=== PATIENT | male | born 1955 | race Caucasian/White ===

== ENCOUNTER 2017-01-29 23:40 | Emergency (ER) | payer SELFPAY ==
[~2017-01-29] VITALS: Ht 170.2 cm; Wt 64.0 kg
[~2017-01-29 23:40] MED LIST: PERM5CRE TOP; PERM5CRE4 TOP; ZYRT10TA12 PO
[2017-01-29 23:41] VITALS: BP 118/79; PULSE 97; RESP 18; TEMP 97.9; O2SAT 94
[2017-01-30 00:58] LABS: ALKALINE PHOSPHATASE 67 U/L (45-117); ALT (GPT) 94 U/L (12-78); ANION GAP 9 MEQ/L (5-15); AST (GOT) 72 U/L (15-37); BICARBONATE 29.9 MEQ/L (21.0-32.0); BLOOD UREA NITROGEN 8 MG/DL (7-18); CHLORIDE 105 MEQ/L (98-107); GLOMERULAR FILTRATION RATE 80 ML/MIN (>89); POTASSIUM 3.6 MEQ/L (3.5-5.1); SODIUM (NA) 144 MEQ/L (136-145); TOTAL BILIRUBIN ADULT 0.1 MG/DL (0.2-1.0)
--- NOTE | 2017-01-30 01:11 | PD ---
HPI Chief Complaint: Alcohol/Drug Intoxication Time Seen by Provider: 01:06 Travel History International Travel<30 days: No Contact w/Intl Traveler<30days: No Traveled to known affect area: No History of Present Illness HPI Patient is a 61-year-old male presenting to emergency department wanting rehabilitation. Patient states that he takes 12 pack of beer a day for the last 30 years and decided he wanted rehabilitation. He denies any physical complaints at this time. He does report drinking a 12 pack of beer today. He denies any significant past medical history. He denies any suicidal, homicidal ideations. He denies any visual auditory hallucinations. [facility] Past Medical History Medical History: Denies Significant Hx Diabetes: No Past Surgical History Eye Surgery: Yes Other Surgery: Yes (RIGHT FOOT) Social History Alcohol Use: Yes (2 six packs a day) Tobacco Use: Yes (1/2 a pack a day) Substance Use: No Allergies-Medications (Allergen,Severity, Reaction): Coded Allergies: No Known Allergies (Verified , 01/29/17) Reported Meds & Prescriptions Reported Meds & Active Scripts Active No Active Prescriptions or Reported Medications Review of Systems Except as stated in HPI: all other systems reviewed are Neg Psychiatric: Positive: Substance Abuse Physical Exam Exam Limitations: Intoxication Narrative GENERAL: Thin, disheveled, well-developed male. Resting comfortably in no acute distress. SKIN: Focused skin assessment warm/dry. HEAD: Atraumatic. Normocephalic. EYES: Pupils equal and round. No scleral icterus. No injection or drainage. ENT: No nasal bleeding or discharge. Mucous membranes pink and moist. NECK: Trachea midline. No JVD. CARDIOVASCULAR: Regular rate and rhythm. No murmur appreciated. RESPIRATORY: No accessory muscle use. Clear to auscultation. Breath sounds equal bilaterally. GASTROINTESTINAL: Abdomen soft, non-tender, nondistended. Hepatic and splenic margins not palpable. MUSCULOSKELETAL: No obvious deformities. No clubbing. No cyanosis. No edema. NEUROLOGICAL: Awake and alert. No obvious cranial nerve deficits. Motor grossly within normal limits. Normal speech. PSYCHIATRIC: Appropriate mood and affect; insight and judgment normal. Data Data Last Documented VS Vital Signs Date Time Temp Pulse Resp B/P Pulse Ox O2 Delivery O2 Flow Rate FiO2 01/29/17 23:41 97.9 97 18 118/79 94 Orders Comprehensive Metabolic Panel (01/29/17 23:58) Alcohol (Ethanol) (01/29/17 23:58) Psych Screen (01/30/17 01:05) Labs Laboratory Tests Test 01/30/17 00:08 Sodium Level 144 MEQ/L Potassium Level 3.6 MEQ/L Chloride Level 105 MEQ/L Carbon Dioxide Level 29.9 MEQ/L Anion Gap 9 MEQ/L Blood Urea Nitrogen 8 MG/DL Creatinine 0.96 MG/DL Estimat Glomerular Filtration 80 ML/MIN Rate Random Glucose 92 MG/DL Calcium Level 8.8 MG/DL Total Bilirubin 0.1 MG/DL Aspartate Amino Transf 72 U/L (AST/SGOT) Alanine Aminotransferase 94 U/L (ALT/SGPT) Alkaline Phosphatase 67 U/L Total Protein 8.0 GM/DL Albumin 3.8 GM/DL Ethyl Alcohol Level 262 MG/DL [facility] Medical Decision Making Medical Screen Exam Complete: Yes Emergency Medical Condition: Yes Interpretation(s) Laboratory Tests Test 01/30/17 00:08 Sodium Level 144 MEQ/L Potassium Level 3.6 MEQ/L Chloride Level 105 MEQ/L Carbon Dioxide Level 29.9 MEQ/L Anion Gap 9 MEQ/L Blood Urea Nitrogen 8 MG/DL Creatinine 0.96 MG/DL Estimat Glomerular Filtration 80 ML/MIN Rate Random Glucose 92 MG/DL Calcium Level 8.8 MG/DL Total Bilirubin 0.1 MG/DL Aspartate Amino Transf 72 U/L (AST/SGOT) Alanine Aminotransferase 94 U/L (ALT/SGPT) Alkaline Phosphatase 67 U/L Total Protein 8.0 GM/DL Albumin 3.8 GM/DL Ethyl Alcohol Level 262 MG/DL Vital Signs Date Time Temp Pulse Resp B/P Pulse Ox O2 Delivery O2 Flow Rate FiO2 01/29/17 23:41 97.9 97 18 118/79 94 Differential Diagnosis Substance abuse versus mood disorder versus addiction versus malingering versus other Narrative Course Patient's 61-year-old male presenting to the emergency department for rehabilitation. He has a 30 year history of alcohol abuse and decided he wanted to get clean today. Mental health screening discussed with the patient. Psychiatric screen ordered.labs reviewed, patient's mild transaminitis, alcohol level is elevated at 262. Patient is medically clear for psychiatric evaluation. Diagnosis Primary Impression: Alcohol dependence Qualified Code: F10.20 - Uncomplicated alcohol dependence Additional Impressions: Alcohol intoxication Qualified Code: F10.920 - Alcohol intoxication, uncomplicated Transaminitis Referrals: [facility] ([facility] Patient Instructions: Abuse of Alcohol (ED), Alcohol Dependence (GEN), Alcohol Intoxication (ED), General Instructions Additional Instructions: Follow-up at [facility] Avoid excessive intake of alcohol Return to emergency department for new or worsening symptoms Med/Other Pt SpecificInfo: No Change to Meds Scripts No Active Prescriptions or Reported Meds Condition: Stable Akiko Benitez Jan 30, 2017 01:11
== END 2017-01-30 06:16 | disposition home or self-care (01) ==
LOC: NEPD 23:40
DX: F10.20 Alcohol dependence, uncomplicated (principal); F10.920 Alcohol use, unspecified with intoxication, uncomplicated; R74.0 Nonspecific elevation of levels of transaminase and lactic acid dehydrogenase [LDH]; F17.200 Nicotine dependence, unspecified, uncomplicated
CPT/HCPCS: 80053; 80307; 99283

== ENCOUNTER 2017-02-01 21:42 | Emergency (ER) | payer SELFPAY ==
[~2017-02-01] VITALS: Ht 170.2 cm; Wt 63.0 kg
[2017-02-01 21:45] VITALS: BP 147/85; PULSE 78; TEMP 97.8; O2SAT 98
--- NOTE | 2017-02-01 22:06 | PD ---
HPI Chief Complaint: Alcohol/Drug Intoxication Time Seen by Provider: 21:54 Travel History International Travel<30 days: No Contact w/Intl Traveler<30days: No Traveled to known affect area: No History of Present Illness HPI 61-year-old male with history of alcoholism presents for evaluation of intoxication. He reports that he has been a drinker for most of his life, quit drinking 2 years ago but then started binging again one week ago. He has been drinking all week long. Today he drank approximately 18 beers. He attempted to go to [facility] this morning for detoxification purposes but they were full. This evening he called the police and the police brought him here. He currently has no medical complaints. He reports that he is currently homeless. He denies any injuries, headache, chest pain or shortness of breath. He denies any drug use. He has no other complaints at this time. [facility] Past Medical History Cardiovascular Problems: Yes (HTN) Diabetes: No Past Surgical History Eye Surgery: Yes Other Surgery: Yes (RIGHT FOOT) Social History Alcohol Use: Yes (2 six packs a day) Tobacco Use: Yes (1/2 a pack a day) Substance Use: Yes (COCAINE) Allergies-Medications (Allergen,Severity, Reaction): Coded Allergies: No Known Allergies (Verified , 02/01/17) Reported Meds & Prescriptions Reported Meds & Active Scripts Active No Active Prescriptions or Reported Medications Review of Systems Except as stated in HPI: all other systems reviewed are Neg Physical Exam Narrative GENERAL: Well-developed well-nourished male in no acute distress alert and interactive, responding to questions and commands appropriately. His vital signs have been reviewed. SKIN: Warm and dry. HEAD: Atraumatic. Normocephalic. EYES: Pupils equal and round. No scleral icterus. No injection or drainage. ENT: No nasal bleeding or discharge. Mucous membranes pink and moist. NECK: Trachea midline. No JVD. CARDIOVASCULAR: Regular rate and rhythm. No murmur appreciated. RESPIRATORY: No accessory muscle use. Clear to auscultation. Breath sounds equal bilaterally. GASTROINTESTINAL: Abdomen soft, non-tender, nondistended. Hepatic and splenic margins not palpable. MUSCULOSKELETAL: No obvious deformities. No edema. NEUROLOGICAL: Awake and alert. No obvious cranial nerve deficits. Motor grossly within normal limits. Normal speech. PSYCHIATRIC: Appropriate mood and affect; insight and judgment normal. Data Data Last Documented VS Vital Signs Date Time Temp Pulse Resp B/P Pulse Ox O2 Delivery O2 Flow Rate FiO2 02/01/17 21:45 97.8 78 147/85 98 MDM Medical Decision Making Medical Screen Exam Complete: Yes Emergency Medical Condition: Yes Medical Record Reviewed: Yes Differential Diagnosis Alcoholism, homelessness, malingering, intoxication Narrative Course 61-year-old male with long-standing history of alcohol abuse, reports that he started binging over this past week after being sober for 2 years. He wants to enroll in detox but they were full today. He called the police this evening and was brought here. He has no medical complaints. He appears very mildly intoxicated. He was seen here on January 29 with similar complaints. CMP revealed an AST of 72, and ALT 94 otherwise unremarkable. The patient will remain here until he is clinically sober and then he will be discharged. Diagnosis Primary Impression: Alcohol dependence Qualified Code: F10.29 - Alcohol dependence with unspecified alcohol-induced disorder Additional Impression: Alcohol intoxication Qualified Code: F10.920 - Alcohol intoxication, uncomplicated [facility]: [facility] Med/Other Pt SpecificInfo: No Change to Meds Scripts No Active Prescriptions or Reported Meds Disposition: DISCHARGE HOME Condition: Stable Wellington Austin Feb 01, 2017 22:06
[2017-02-02 03:00] VITALS: BP 138/79; PULSE 76; RESP 16; O2SAT 97
== END 2017-02-02 06:38 | disposition home or self-care (01) ==
LOC: NEPD 21:42
DX: F10.229 Alcohol dependence with intoxication, unspecified (principal); I10 Essential (primary) hypertension; F17.200 Nicotine dependence, unspecified, uncomplicated
CPT/HCPCS: 99281

== ENCOUNTER 2017-02-16 18:43 | Emergency (ER) | payer SELFPAY ==
--- NOTE | 2017-02-17 01:11 | PD ---
HPI Chief Complaint: Chest Pain Time Seen by Provider: 01:10 Travel History International Travel<30 days: No Contact w/Intl Traveler<30days: No Traveled to known affect area: No History of Present Illness HPI Patient comes in complaining of a chest pain ongoing for 3-4 months. Patient reports associated shortness of breath with this. Patient denies anything making it better or worse. Pain radiates throughout his chest. Patient reports he's been evaluated for this at a different hospital and was told everything was fine per patient. Patient denies any trauma, fevers, nausea, vomiting, back pain, change in bowel or bladder, or numbness or tingling anywhere. PFSH Past Medical History Cardiovascular Problems: Yes (HTN) Diabetes: No Immunizations Current: No Past Surgical History Eye Surgery: Yes Other Surgery: Yes (RIGHT FOOT) Social History Alcohol Use: Yes (2 six packs a day) Tobacco Use: Yes (1/2 a pack a day) Substance Use: Yes (COCAINE) Allergies-Medications (Allergen,Severity, Reaction): Coded Allergies: No Known Allergies (Verified , 02/16/17) Reported Meds & Prescriptions Reported Meds & Active Scripts Active No Active Prescriptions or Reported Medications Review of Systems Except as stated in HPI: all other systems reviewed are Neg Physical Exam Narrative GENERAL: Well-developed, well nourished, in no acute distress, and non-ill appearing. SKIN: Focused skin assessment warm and dry. HEAD: Atraumatic. Normocephalic. EYES: Pupils equal and round. EOMI. No scleral icterus. No injection or drainage. ENT: No nasal bleeding or discharge. Mucous membranes pink and moist. NECK: Trachea midline. Supple. No nuclear rigidity. CARDIOVASCULAR: Regular rate and rhythm. No murmur appreciated. RESPIRATORY: No accessory muscle use. No respiratory distress. Decreased breath sounds throughout. GASTROINTESTINAL: Abdomen soft, non-tender, nondistended. Hepatic and splenic margins not palpable. Normal bowel sounds 4. No pulsatile mass. MUSCULOSKELETAL: No obvious deformities. No clubbing. No cyanosis. No edema. Full range of motion. NEUROLOGICAL: Awake and alert. No obvious cranial nerve deficits. Motor grossly within normal limits. Normal speech. PSYCHIATRIC: Appropriate mood and affect; insight and judgment normal. Data Data Last Documented VS Vital Signs Date Time Temp Pulse Resp B/P Pulse Ox O2 Delivery O2 Flow Rate FiO2 02/17/17 01:58 73 24 127/64 97 Room Air Orders Electrocardiogram (02/16/17 ) Basic Metabolic Panel (Bmp) (02/17/17 01:09) Ckmb (Isoenzyme) Profile (02/17/17 01:09) Complete Blood Count With Diff (02/17/17 01:09) Magnesium (Mg) (02/17/17 01:09) Prothrombin Time / Inr (Pt) (02/17/17 01:09) Act Partial Throm Time (Ptt) (02/17/17 01:09) Troponin I (02/17/17 01:09) Chest, Single Ap (02/17/17 01:09) Ecg Monitoring (02/17/17 01:09) Bilateral Bp Monitoring (02/17/17 01:09) Iv Access Insert/Monitor (02/17/17 01:09) Oximetry (02/17/17 01:09) Oxygen Administration (02/17/17 01:09) Sodium Chloride 0.9% Flush (Ns Flush) (02/17/17 01:15) CKMB (02/17/17 01:45) CKMB% (02/17/17 01:45) Labs Laboratory Tests Test 02/17/17 01:45 White Blood Count 7.4 TH/MM3 Red Blood Count 4.53 MIL/MM3 Hemoglobin 14.4 GM/DL Hematocrit 41.9 % Mean Corpuscular Volume 92.7 FL Mean Corpuscular Hemoglobin 31.9 PG Mean Corpuscular Hemoglobin 34.4 % Concent Red Cell Distribution Width 12.8 % Platelet Count 208 TH/MM3 Mean Platelet Volume 8.0 FL Neutrophils (%) (Auto) 49.1 % Lymphocytes (%) (Auto) 29.9 % Monocytes (%) (Auto) 13.4 % Eosinophils (%) (Auto) 6.4 % Basophils (%) (Auto) 1.2 % Neutrophils # (Auto) 3.6 TH/MM3 Lymphocytes # (Auto) 2.2 TH/MM3 Monocytes # (Auto) 1.0 TH/MM3 Eosinophils # (Auto) 0.5 TH/MM3 Basophils # (Auto) 0.1 TH/MM3 CBC Comment DIFF FINAL Differential Comment Prothrombin Time 12.0 SEC Prothromb Time International 1.1 RATIO Ratio Activated Partial 31.6 SEC Thromboplast Time Sodium Level 143 MEQ/L Potassium Level 4.0 MEQ/L Chloride Level 105 MEQ/L Carbon Dioxide Level 31.6 MEQ/L Anion Gap 6 MEQ/L Blood Urea Nitrogen 9 MG/DL Creatinine 0.85 MG/DL Estimat Glomerular Filtration 92 ML/MIN Rate Random Glucose 103 MG/DL Calcium Level 8.8 MG/DL Magnesium Level 1.9 MG/DL Total Creatine Kinase 141 U/L Creatine Kinase MB 1.7 NG/ML Troponin I LESS THAN 0.02 NG/ML MDM Medical Decision Making Medical Screen Exam Complete: Yes Emergency Medical Condition: Yes Interpretation(s) EKG reviewed by Dr. Toribio shows sinus rhythm with ventricular rate of 90. No STEMI. Chest x-ray reviewed by the radiologist shows: No acute disease. Differential Diagnosis Pneumonia, acute coronary syndrome, electrolyte abnormality, COPD, musculoskeletal pain, costochondritis, other Narrative Course The patients chest pain by history and evaluation appears noncardiac, nor noncardiopulmonary in etiology. Evaluation revealed no evidence of cardiac involvement at this time. There is no clinical evidence to suggest thoracic aortic aneurysm or pathology, nor evidence to suggest pulmonary embolism, pericarditis, pneumothorax, nor pneumonia at this time. The patient has minimal risk factors for cardiac disease, pulmonary embolism or aortic disease. Clinical suspicion was discussed with patient and the patient was instructed to follow up with Cardiology for potential outpatient evaluation. I discussed this management with the patient and the patient understands the importance or acute follow up with cardiology for outpatient stress testing. The patient was instructed to return at any time if chest pain recurs, persists, changes or worsens in anyway while awaiting follow up. The patient agreed with plan. Patient in no obvious distress upon re-evaluation. All pertinent laboratory/ Radiology result(s) discussed with patient. Discussed patient with Dr. Toribio prior to discharge, who is in agreement with plan of care and disposition. Any questions/concerns in reference to patient diagnosis/condition discussed and clarified prior to patient's discharge. 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 Instructed patient to return to ED immediately, if symptoms return /worsen. Pt showed understanding of above instructions. Further instructions and recommendations were detailed in discharge paperwork. Pt ambulated without difficulty out of ED at discharge. 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 Follow-up through primary care doctor and/or [facility] for alcohol detox. Return to the emergency department if symptoms get worse. Scripts No Active Prescriptions or Reported Meds Disposition: 01 DISCHARGE HOME Condition: Stable James Cohn Feb 17, 2017 01:11
[2017-02-17] MEDS ORDERED: SODIUM CHLORIDE 0.9% FLUSH 10 ML FLUSH IVF PRN (01:15)
--- NOTE | 2017-02-17 01:24 | RADRPT ---
EXAM DATE/TIME: 02/17/2017 01:12 [facility] COMPARISON: No previous studies available for comparison. INDICATIONS : Cold symptoms x 4 months. MEDICAL HISTORY : Hypertension. SURGICAL HISTORY : None. ENCOUNTER: Initial ACUITY: 4 - 6 months PAIN SCORE: 6/10 LOCATION: Bilateral chest FINDINGS: A single view of the chest demonstrates the lungs to be symmetrically aerated without evidence of mas s, infiltrate or effusion. The cardiomediastinal contours are unremarkable. Osseous structures are intact. CONCLUSION: No acute disease. Michele Koenig MD on February 17, 2017 at 1:22 Board Certified Radiologist. This report was verified electronically.
[2017-02-17 01:51] VITALS: O2SAT 94
[2017-02-17 01:52] VITALS: BP 131/90; O2SAT 94
[2017-02-17 01:58] VITALS: BP 127/64; PULSE 73; RESP 24; O2SAT 97
[2017-02-17 02:03] LABS: AUTOMATED NEUTROPHIL # 3.6 TH/MM3 (1.8-7.7); BASOPHIL # 0.1 TH/MM3 (0-0.2); BASOPHIL % 1.2 % (0.0-2.0); EOSINOPHIL # 0.5 TH/MM3 (0-0.4); EOSINOPHIL % 6.4 % (0.0-4.0); HEMATOCRIT 41.9 % (39.0-51.0); HEMO FLAGS DIFF FINAL; LYMPH % 29.9 % (9.0-44.0); LYMPHOCYTE # 2.2 TH/MM3 (1.0-4.8); MEAN CELL VOLUME 92.7 FL (80.0-100.0); MEAN CORPUSCULAR HEMOGLOBIN 31.9 PG (27.0-34.0); MEAN CORPUSCULAR HGB CONC 34.4 % (32.0-36.0); MONO % 13.4 % (0.0-8.0); NEUT % 49.1 % (16.0-70.0); PLATELET COUNT 208 TH/MM3 (150-450); RED BLOOD COUNT 4.53 MIL/MM3 (4.50-5.90); RED CELL DISTRIBUTION WIDTH 12.8 % (11.6-17.2); WHITE BLOOD COUNT 7.4 TH/MM3 (4.0-11.0)
[2017-02-17 02:21] LABS: APTT (PATIENT) 31.6 SEC (24.3-30.1); INTERNATIONAL NORMALIZED RATIO 1.1 RATIO
[2017-02-17 02:47] LABS: ANION GAP 6 MEQ/L (5-15); BICARBONATE 31.6 MEQ/L (21.0-32.0); BLOOD UREA NITROGEN 9 MG/DL (7-18); CHLORIDE 105 MEQ/L (98-107); GLOMERULAR FILTRATION RATE 92 ML/MIN (>89); MAGNESIUM 1.9 MG/DL (1.5-2.5); SODIUM (NA) 143 MEQ/L (136-145)
[2017-02-17 02:49] LABS: CREATINE KINASE 141 U/L (39-308)
[2017-02-17 03:06] LABS: CKMB 1.7 NG/ML (0.5-3.6)
--- NOTE | 2017-02-17 12:30 | EKG ---
Date Performed: 02/16/2017 Time Performed: 22:32:08 PTAGE: 61 years EKG: Sinus rhythm NONSPECIFIC T-WAVE ABNORMALITY Compared to prior tracing no significant change BORDERLINE ECG PREVIOUS TRACING : 07/12/2011 19.39 DOCTOR: Jeronimo Domingo Interpretating Date/Time 02/17/2017 12:28:29
== END 2017-02-17 06:42 | disposition home or self-care (01) ==
LOC: NEPD 18:43
DX: R07.89 Other chest pain (principal); R06.02 Shortness of breath; F10.20 Alcohol dependence, uncomplicated
CPT/HCPCS: 71010; 80048; 82550; 82552; 83735; 84484; 85025; 85610; 85730; 93005; 99285

== ENCOUNTER 2018-07-08 12:12 | Inpatient (IN) ==
[2018-07-08 17:33] LABS: Baso % (Auto) 0.4 % (0.0-2.0); Eos % (Auto) 0.1 % (0.0-4.0); Hemoglobin 15.3 gm/dL (13.0-17.0); Lymph # (Auto) 0.9 th/mm3 (1.0-4.8); Lymph % (Auto) 9.3 % (9.0-44.0); Mean Corpuscular HGB Conc 34.8 % (32.0-36.0); Mean Corpuscular Hemoglobin 34.2 pg (27.0-34.0); Mean Corpuscular Volume 98.3 fL (80.0-100.0); Mean Platelet Volume 10.1 fL (7.0-11.0); Mono # (Auto) 0.4 th/mm3 (0.0-0.9); Mono % (Auto) 4.1 % (0.0-8.0); Neut # (Auto) 7.9 th/mm3 (1.8-7.7); Neut % (Auto) 86.1 % (16.0-70.0); Red Blood Count 4.47 mil/mm3 (4.50-5.90); Red Cell Distribution Width 12.3 % (11.6-17.2); White Blood Count 9.2 th/mm3 (4.0-11.0)
[2018-07-08 17:46] LABS: INR 1.6 Ratio; Prothrombin Time 15.7 sec (9.8-11.6)
[2018-07-08 17:49] LABS: Anion Gap 4 meq/L (5-15); Blood Urea Nitrogen 11 mg/dL (7-18); Calcium 9.2 mg/dL (8.5-10.1); Carbon Dioxide 30.7 meq/L (21.0-32.0); Chloride 99 meq/L (98-107); Glomerular Filtration Rate Greater Than 89 mL/min (>89); Glucose,Random 104 mg/dL (74-106); Sodium 134 meq/L (136-145)
[2018-07-08 18:02] LABS: Platelet Count 53 th/mm3 (150-450)
--- NOTE | 2018-07-08 18:04 | CT ---
EXAM DATE: 07/08/2018 6:00 PM EST AGE/SEX: 63 years / Male INDICATIONS: Nausea near syncope,fall CLINICAL DATA: This is the patient's initial encounter. Patient reports that signs and symptoms have been present for 1 day and indicates a pain score of 8/10. MEDICAL/SURGICAL HISTORY: None. None. RADIATION DOSE: 56.35 CTDI (mGy) [place] [facility] [place]. . TECHNIQUE: CT of the head without contrast. Using automated exposure control and adjustment of the mA and/or kV according to patient size, radiation dose was kept as low as reasonably achievable to ob tain optimal diagnostic quality images. DICOM format image data is available electronically for revi ew and comparison. FINDINGS: Cerebrum: The ventricles and cortical sulci are widened. No evidence of midline shift, mass lesion, hemorrhage or acute infarction. No extraaxial fluid collections are seen. Posterior Fossa: The cerebellum and brainstem are intact. The 4th ventricle is midline. The cerebe llopontine angle is unremarkable. Extracranial: The visualized portion of the orbits is intact. Skull: The calvaria is intact. No evidence of skull fracture. There is a surgical metallic density seen at the anterior lateral right maxilla. CONCLUSION: 1. No acute intracranial abnormality. 2. Mild Atrophy. . Electronically signed by: Calvin Apple MD 07/08/2018 6:03 PM EST
--- NOTE | 2018-07-08 18:15 | XR ---
EXAM DATE: 07/08/2018 6:05 PM EST AGE/SEX: 63 years / Male INDICATIONS: Palpations. Nausea and vomiting for 2 days with dizziness. CLINICAL DATA: This is the patient's initial encounter. Patient reports that signs and symptoms have been present for 2 days and indicates a pain score of 0/10. MEDICAL/SURGICAL HISTORY: Hypertension. None. [place] [facility] [place]. . FINDINGS: A single AP view of the chest demonstrates the lungs to be symmetrically aerated without evidence of mass, infiltrate or effusion. The cardiomediastinal contours are unremarkable. Osseous structures a re intact. CONCLUSION: No evidence of acute cardiopulmonary disease. Electronically signed by: Calvin Francisco MD 07/08/2018 6:14 PM EST
--- NOTE | 2018-07-08 18:26 | XR ---
EXAM DATE: 07/08/2018 6:15 PM EST AGE/SEX: 63 years / Male INDICATIONS: Left posterior elbow pain. Patient fell a week ago. CLINICAL DATA: This is the patient's initial encounter. Patient reports that signs and symptoms have been present for 1 week and indicates a pain score of 5/10. MEDICAL/SURGICAL HISTORY: None. . COMPARISON: No prior exams available for comparison. FINDINGS: Several subcentimeter fracture fragments are seen of the posterior olecranon, probably avulsion fract ure fragments of the distal triceps insertion. Surrounding soft tissues are swollen and edematous. Di splacement is on the order of 5 to 6 mm. There does appear to be an elbow joint effusion but no other perceptible fractures. CONCLUSION: 1. Small, mildly displaced olecranon avulsion fracture fragments of the triceps insertion with assoc iated soft tissue swelling. 2. Joint effusion. No perceptible intra-articular fracture. No subluxation. Electronically signed by: Calvin Francisco MD 07/08/2018 6:25 PM EST
--- NOTE | 2018-07-08 18:39 | ED ---
HPI General Chief complaint: Syncope Stated complaint: Fall Time Seen by Provider: 07/08/18 16:06 Source: patient Mode of arrival: ambulatory History of Present Illness HPI narrative: 63 y/o male presents with nausea, chest pain and a near syncopal episode. He states also a couple days ago he hit his left elbow and feels like it is broken. He states that he is having no other concurrent complaints but is a poor historian. He does not recall if he had a prior heart workup. He denies any chest pain now. He states he feels worse when he moves around. He denies migration of the pain. He denies other modifying factors. Related Data Home Medications Medication Instructions Recorded Confirmed No Known Home Medications 07/08/18 07/08/18 Allergies Allergy/AdvReac Type Severity Reaction Status Date / Time No Known Allergies Allergy Verified 07/08/18 12:30 Review of Systems ROS: all other systems reviewed are negative [facility] Medical History Medical History Patient denies medical problems (Acute) Surgical History Surgical History No history of previous surgery (Acute) Social History Social History Substance History: No History of Abuse Second Hand Smoke Exposure: Yes Smoking Status: Current every day smoker Tobacco Type: Cigarettes How Often Do You Have a Drink Containing Alcohol: 4 or more times a week Recent Travel in [facility] within the Last 8 Weeks: No Recent Out of Country Travel within the Last 8 Weeks: No Immunization History Tetanus Immunization: >5 Years Exam Narrative Exam Narrative: GENERAL: 63 y/o male in no apparent distress SKIN: Focused skin assessment warm/dry. HEAD: Atraumatic. Normocephalic. EYES: Pupils equal and round. No scleral icterus. No injection or drainage. ENT: No nasal bleeding or discharge. Mucous membranes pink and moist. NECK: Trachea midline. No JVD. CARDIOVASCULAR: Regular rate and rhythm. RESPIRATORY: No accessory muscle use. Clear to auscultation. Breath sounds equal bilaterally. GASTROINTESTINAL: Abdomen soft, non-tender, nondistended. MUSCULOSKELETAL: Pain with palpation of left elbow with swelling, no pain with other joints , neurovascularly intact, no lacerations over, compartments soft. NEUROLOGICAL: Awake. Motor grossly within normal limits. Normal speech. PSYCHIATRIC: Appropriate mood and affect; insight and judgment normal. Course Reevaluation(s) Reevaluation #1: Patient has an avulsion fracture to olecranon. Will place splint and await additional testing, dr carlos to follow and reevaluate Initial Documented Vital Signs Temperature 99.6 F 07/08/18 12:28 Pulse Rate 93 H 07/08/18 12:28 Respiratory Rate 18 07/08/18 12:28 Blood Pressure 134/74 07/08/18 12:28 Pulse Oximetry 98 07/08/18 12:28 Last Documented Vital Signs Temperature 99.6 F 07/08/18 12:28 Pulse Rate 89 07/08/18 17:04 Respiratory Rate 17 07/08/18 17:04 Blood Pressure 137/88 07/08/18 17:04 Pulse Oximetry 100 07/08/18 17:04 Medical Decision Making MDM Narrative Medical decision making narrative: 63 y/o male presents with nausea, chest pain and near syncope with concurrent likely left elbow fracture. Will add on blood work and imaging to protocol ordered while he was with a critical patient and monitor. If this workup is negative he will likely need observation Medical Screen Exam Complete: Yes Emergency Medical Condition: Yes Differential Diagnosis Differential Diagnosis: cardiac, anemia, renal failure, stone, uti, fracture Lab Data Lab results reviewed: Yes I reviewed the patient's lab results. Result diagrams: 07/08/18 17:00 07/08/18 17:00 Lab Results 07/08/18 07/08/18 07/08/18 Range/Units 17:00 17:00 17:00 WBC 9.2 (4.0-11.0) th/mm3 RBC 4.47 L (4.50-5.90) mil/mm3 Hgb 15.3 (13.0-17.0) gm/dL Hct 44.0 (39.0-51.0) % MCV 98.3 (80.0-100.0) fL MCH 34.2 H (27.0-34.0) pg MCHC 34.8 (32.0-36.0) % RDW 12.3 (11.6-17.2) % Plt Count 53 L (150-450) th/mm3 MPV 10.1 (7.0-11.0) fL Prelim Diff (Auto) Slide review pending Neut % (Auto) 86.1 H (16.0-70.0) % Lymph % (Auto) 9.3 (9.0-44.0) % [place] % (Auto) 4.1 (0.0-8.0) % Eos % (Auto) 0.1 (0.0-4.0) % Baso % (Auto) 0.4 (0.0-2.0) % Neut # (Auto) 7.9 H (1.8-7.7) th/mm3 Lymph # (Auto) 0.9 L (1.0-4.8) th/mm3 [place] # (Auto) 0.4 (0.0-0.9) th/mm3 Eos # (Auto) 0.0 (0.0-0.4) th/mm3 Baso # (Auto) 0.0 (0.0-0.2) th/mm3 WBC Differential . Diff Scan Auto diff confirmed Differential Comment . PT 15.7 H (9.8-11.6) sec INR 1.6 Ratio Sodium 134 L (136-145) meq/L Potassium 4.0 (3.5-5.1) meq/L Chloride 99 (98-107) meq/L Carbon Dioxide 30.7 (21.0-32.0) meq/L Anion Gap 4 L (5-15) meq/L BUN 11 (7-18) mg/dL Creatinine 0.68 (0.60-1.30) mg/dL Estimated GFR Greater than 89 (>89) mL/min Random Glucose 104 (74-106) mg/dL Calcium 9.2 (8.5-10.1) mg/dL Total Bilirubin (0.2-1.0) mg/dL Direct Bilirubin (0.0-0.2) mg/dL Indirect Bilirubin (0.0-0.8) mg/dL AST (15-37) U/L ALT (12-78) U/L Alkaline Phosphatase (45-117) U/L Troponin I Less than 0.02 L (0.02-0.05) ng/mL Total Protein (6.4-8.2) g/dL Albumin (3.4-5.0) g/dL 07/08/18 Range/Units 17:00 WBC (4.0-11.0) th/mm3 RBC (4.50-5.90) mil/mm3 Hgb (13.0-17.0) gm/dL Hct (39.0-51.0) % MCV (80.0-100.0) fL MCH (27.0-34.0) pg MCHC (32.0-36.0) % RDW (11.6-17.2) % Plt Count (150-450) th/mm3 MPV (7.0-11.0) fL Prelim Diff (Auto) Neut % (Auto) (16.0-70.0) % Lymph % (Auto) (9.0-44.0) % [place] % (Auto) (0.0-8.0) % Eos % (Auto) (0.0-4.0) % Baso % (Auto) (0.0-2.0) % Neut # (Auto) (1.8-7.7) th/mm3 Lymph # (Auto) (1.0-4.8) th/mm3 [place] # (Auto) (0.0-0.9) th/mm3 Eos # (Auto) (0.0-0.4) th/mm3 Baso # (Auto) (0.0-0.2) th/mm3 WBC Differential Diff Scan Differential Comment PT (9.8-11.6) sec INR Ratio Sodium (136-145) meq/L Potassium (3.5-5.1) meq/L Chloride (98-107) meq/L Carbon Dioxide (21.0-32.0) meq/L Anion Gap (5-15) meq/L BUN (7-18) mg/dL Creatinine (0.60-1.30) mg/dL Estimated GFR (>89) mL/min Random Glucose (74-106) mg/dL Calcium (8.5-10.1) mg/dL Total Bilirubin 3.4 H (0.2-1.0) mg/dL Direct Bilirubin 1.8 H (0.0-0.2) mg/dL Indirect Bilirubin 1.6 H (0.0-0.8) mg/dL AST 276 H (15-37) U/L ALT 162 H (12-78) U/L Alkaline Phosphatase 106 (45-117) U/L Troponin I (0.02-0.05) ng/mL Total Protein 8.3 H (6.4-8.2) g/dL Albumin 3.2 L (3.4-5.0) g/dL Imaging Data Attestation: I personally reviewed and interpreted this imaging study as follows : Radiologist's impression: Head CT 07/08/18 17:06 CONCLUSION: 1. No acute intracranial abnormality. 2. Mild Atrophy. . Chest X-Ray 07/08/18 17:42 CONCLUSION: No evidence of acute cardiopulmonary disease. Elbow X-Ray 07/08/18 18:01 CONCLUSION: 1. Small, mildly displaced olecranon avulsion fracture fragments of the triceps insertion with associated soft tissue swelling. 2. Joint effusion. No perceptible intra-articular fracture. No subluxation. Abdomen/Pelvis CT 07/08/18 18:02 CONCLUSION: 1. Severe fatty infiltration of the liver. 2. Apparent pericholecystic fluid. Also fairly robust enhancement of the gallbladder mucosa. Please correlate clinically for any evidence of cholecystitis. No stones or ductal dilatation demonstrated. Discharge Plan Discharge Disposition Patient Disposition: Sign Out(ED Internal Use Only) Physicians Team ED Provider: Kerline Albarran Primary Care Provider: Primary Care Cierra Odonnell Rxs /Orders / Referrals /Forms Prescriptions: No Action No Known Home Medications RF: 0 Discharge Interventions Interventions: Vital Signs Last Done: 07/08/18 17:04 Status ED Status: With Doctor
--- NOTE | 2018-07-08 18:47 | CT ---
EXAM DATE: 07/08/2018 6:36 PM EST AGE/SEX: 63 years / Male INDICATIONS: Abdomen pain with nausea. CLINICAL DATA: This is the patient's initial encounter. Patient reports that signs and symptoms have been present for 1 day and indicates a pain score of 0/10. MEDICAL/SURGICAL HISTORY: None. None. ORAL CONTRAST: No oral contrast ingested. RADIATION DOSE: 6.73 CTDI (mGy) COMPARISON: No prior exams available for comparison. TECHNIQUE: Multiple contiguous axial images were obtained through the abdomen and pelvis following b olus infusion of 85 ml Omnipaque 350 (iohexol) nonionic water-soluble contrast as a single exam dos e. No oral contrast ingested. Using automated exposure control and adjustment of the mA and/or kV ac cording to patient size, radiation dose was kept as low as reasonably achievable to obtain optimal di agnostic quality images. DICOM format image data is available electronically for review and comparis on. FINDINGS: Liver is severely fatty infiltrated. No focal hepatic lesion demonstrated. There is mucosal enhanceme nt of the gallbladder and some apparent pericholecystic fluid, series 2 image 32. No perceptible ston es. No biliary distention. Spleen, pancreas, adrenal glands and kidneys are all within normal limits. No obstruction or acute inflammatory changes are seen of the gastrointestinal tract. No free fluid or free air. No lymphadenopathy. Visualized lung bases are clear. CONCLUSION: 1. Severe fatty infiltration of the liver. 2. Apparent pericholecystic fluid. Also fairly robust enhancement of the gallbladder mucosa. Please correlate clinically for any evidence of cholecystitis. No stones or ductal dilatation demonstrated. Electronically signed by: Calvin Francisco MD 07/08/2018 6:45 PM EST
[2018-07-08 19:01] LABS: Lipase 159 U/L (73-393)
[2018-07-08 19:06] LABS: Albumin 3.2 g/dL (3.4-5.0)
[2018-07-08 19:07] LABS: Total Protein 8.3 g/dL (6.4-8.2)
[2018-07-08] MEDS ORDERED: Piperacil/Tazo 3.375 GM Premix 50 ML IV.SIG ONE (19:10)
--- NOTE | 2018-07-08 19:33 | US ---
EXAM DATE: 07/08/2018 7:26 PM EST AGE/SEX: 63 years / Male INDICATIONS: Right upper quadrant pain. CLINICAL DATA: This is the patient's initial encounter. Patient reports that signs and symptoms have been present for 4 - 6 days and indicates a pain score of 6/10. MEDICAL/SURGICAL HISTORY: None. None. [place] [facility] [place]/08/[place]. . MEASUREMENTS: Liver:__ 18.1 cm. Common Bile Duct:__ 6mm. FINDINGS: Liver: Increased echotexture without focal lesion or ductal dilation. Portal Vein: Hepatopedal flow seen in portal vein. Common Duct: 6 mm diameter duct, within normal limits for a patient this age. No stone demonstrated. Gallbladder: Wall measures 2 mm. Small pericholecystic fluid. No sonographic Lundy's sign elicited. Pancreas: Not well visualized. Right Kidney: Normal echotexture and cortical thickness. No mass or hydronephrosis. Other: None. CONCLUSION: 1. Small, nonspecific pericholecystic fluid without stones, wall thickening or sonographic Lundy's sign. The fluid may be on the basis of hepatocellular disease. The ultrasound does not support acute cholecystitis. 2. Fatty infiltrated and mildly enlarged liver. Electronically signed by: Calvin Francisco MD 07/08/2018 7:32 PM EST
[2018-07-08 20:59] LABS: Bilirubin,Urine Negative (Negative); Clarity,Urine Clear (Clear); Color,Urine Amber (Yellw/Straw); Glucose,Urine (UA) Negative (Negative); Leukocyte Esterase,Urine Negative (Negative); Nitrite,Urine Negative (Negative); Urobilinogen,Urine 4 or Greater mg/dL (Less than 2)
--- NOTE | 2018-07-08 21:24 | ECG ---
Date Performed: 07/08/2018 Time Performed: 19:30:55 PTAGE: 63 years EKG: SINUS TACHYCARDIA NONSPECIFIC T-WAVE ABNORMALITY ABNORMAL RHYTHM ECG Since the PREVIOUS TRACING , no significant change noted DOCTOR: Elaine Gonzalez Interpretating Date/Time 07/08/2018 21:23:01
[2018-07-09] MEDS ORDERED: LORazepam 1 MG Tablet PO PRN (00:14)
[2018-07-09] MEDS ORDERED: Bisacodyl 10 MG Supp RECTAL PRN (00:18)
[2018-07-09] MEDS ORDERED: Acetaminophen 325 MG Tablet PO PRN (00:18)
[2018-07-09] MEDS ORDERED: Heparin - SQ 10,000 UNITS/ML Vial SQ SCH (00:30)
--- NOTE | 2018-07-09 00:46 | P.HP ---
History of Present Illness Service: [facility] Primary Care Physician: No Primary Care Physician History of Present Illness: 63-year-old male with a past medical history significant for alcohol abuse presents to the emergency department for the evaluation of arm pain. The patient reports he was having significant nausea and vomiting that began earlier today. He also reports left arm pain from a fall he suffered approximately a week ago. The patient reports he fell over but did not seek treatment for his left arm pain. According to ED documentation, the patient suffered a near syncopal event and had chest pain although at the time of our interview he denies either of these things. The patient is a poor historian who states he drinks approximately 8 beers daily. He has no known history of liver disease. He denies any chest pain or shortness of breath. Endorses diffuse epigastric abdominal pain. Positive nausea/vomiting. No hematemesis. No focal neurologic deficits. No fever/chills. Inpatient Certification: I certify that the inpatient services were ordered in accordance with Medicare regulations governing the order. This includes certification that hospital inpatient services are reasonable and necessary and in the case of services not specified as inpatient-only under 42 CFR 419.22(n), that they are appropriately provided as inpatient services in accordance to with the 2-midnight benchmark under 43 CFR 412.3(e) Estimated Total Length of Stay (Days): 3 Plans for Post Hospital Care: Not yet determined Review of Systems All other systems reviewed negative except as stated in [facility] - History History Provided By: Patient - Medical History Medical History: Medical History (Last Reviewed 07/09/18 @ 00:28 by Jaclyn Crouch MD) Patient denies medical problems - Surgical History Surgical History: Surgical History (Last Reviewed 07/09/18 @ 00:28 by Jaclyn Crouch MD) No history of previous surgery - Family History Family History: Family History (Last Updated 07/09/18 @ 00:28 by Jaclyn Crouch MD) Other Coronary artery disease Diabetes mellitus - Social History I have reviewed the patient's Social History: Yes - Tobacco History Second Hand Smoke Exposure: Yes Tobacco Use In Past 30 Days: Yes Smoking Status: Current every day smoker Tobacco Type: Cigarettes - Alcohol History How Often Do You Have a Drink Containing Alcohol: 4 or more times a week - Substance Use History Substance History: No History of Abuse - Travel History Recent Travel in the [place] Within the Last 8 Weeks: No Recent Travel Out of the Country Within the Last 8 Weeks: No - Immunization History Tetanus Immunization: >5 Years Medications and Allergies Active Medications: Active Medications Acetaminophen (Tylenol) 650 mg PO Q4H PRN PRN Reason: Temp > 100.4 Al Hydroxide/Mg Hydroxide (Milk Of Magnesia Liq) 30 ml PO Q12H PRN PRN Reason: Mild Constipation Bisacodyl (Dulcolax Supp) 10 mg RECTAL DAILY PRN PRN Reason: SEVERE CONSITIPATION Clonidine HCl (Catapres) 0.1 mg PO Q6H PRN PRN Reason: For SBP >/= 180, DBP >/= 100 Flumazenil (Romazecon Inj) 0.2 mg IV.PUSH Q1M PRN PRN Reason: OVERSEDATION Folic Acid (Folic Acid) 1 mg PO DAILY [place]COL[place] Stop: 07/14/18 08:59 Haloperidol Lactate (Haldol Inj) 1 mg IV.PUSH Q15M PRN PRN Reason: for severe agitation Heparin Sodium (Porcine) (Heparin Inj) 5,000 units SQ Q12H [place] Sodium Chloride (Ns Inj) 1,000 mls @ 100 mls/hr IV.CONT .Q10H [place] Lactulose (Lactulose Liq) 30 ml PO DAILY PRN PRN Reason: SEVERE CONSITIPATION Lorazepam (Ativan) 1 mg PO Q4H PRN PRN Reason: for CIWA 8-10 Lorazepam (Ativan) 2 mg PO Q2H PRN PRN Reason: for CIWA 11-14 Lorazepam (Ativan Inj) 2 mg IV.PUSH Q2H PRN PRN Reason: for CIWA 11-14 Lorazepam (Ativan Inj) 2 mg IV.PUSH Q1H PRN PRN Reason: for CIWA 15-20 Lorazepam (Ativan Inj) 2 mg IV.PUSH Q15M PRN PRN Reason: for CIWA > 20 Lorazepam (Ativan Inj) 1 mg IV.PUSH Q4H PRN PRN Reason: for CIWA 8-10 Multivitamins/Minerals (Theragran-M) 1 tab PO DAILY [place]COL[place] Stop: 07/14/18 08:59 Ondansetron HCl (Zofran Inj) 4 mg IV.PUSH Q6H PRN PRN Reason: NAUSEA OR VOMITING Senna/Docusate Sodium (Lizzeth-Colace) 1 tab PO BID [facility] Sennosides (Senokot) 17.2 mg PO Q12H PRN PRN Reason: Moderate Constipation Sodium Chloride (Ns Flush) 2 ml IV.FLUSH PRN PRN PRN Reason: FLUSH AFTER USING IV ACCESS Sodium Chloride (Ns Flush) 2 ml IV.FLUSH BID [facility] Thiamine HCl (Vitamin B1) 100 mg PO DAILY [place]COLM Allergies Allergy/AdvReac Type Severity Reaction Status Date / Time No Known Allergies Allergy Verified 07/08/18 12:30 Home Medications Medication Instructions Recorded Confirmed Type No Known Home Medications 07/08/18 07/08/18 History Exam Vital signs: Vital Signs 07/08/18 12:28 07/08/18 17:04 Temperature 99.6 F Pulse Rate 93 H 89 Respiratory Rate 18 17 Blood Pressure 134/74 137/88 Pulse Oximetry 98 100 Intake & Output 07/08/18 07/08/18 07/09/18 06:59 18:59 06:59 Intake Total 50 / 50 Balance 50 / 50 Weight 61.235 kg Intake: IV 50 / 50 Zosyn 3.375 GM Premix 50 ML @ 50 / 50 100 mls/hr IV.SIG ONCE ONE Rx#: [id number] Narrative: Gen.: No acute distress Head: Normocephalic. Atraumatic. EENT: Left pupil dilated to 6 mm, chronic. Nose without drainage. Airway intact. Throat without injection. Cardiovascular: Regular rate and rhythm. No murmurs, rubs or gallops. Respiratory: Lungs clear to auscultation bilaterally. No wheezes or rhonchi. Abdomen: Soft, diffusely ttp worse in the epigastrium, nondistended. No peritoneal signs. Musculoskeletal: Left arm splinted, neurovascularly intact. Skin: No obvious rashes or erythema. Neuro: Sensory and motor grossly intact. Cranial nerves II through XII grossly intact. Results - Labs CBC & Chem 7: 07/08/18 17:00 07/08/18 17:00 Labs: Laboratory Results - last 24 hr 07/08/18 07/08/18 07/08/18 17:00 17:00 17:00 WBC 9.2 RBC 4.47 L Hgb 15.3 Hct 44.0 MCV 98.3 MCH 34.2 H MCHC 34.8 RDW 12.3 Plt Count 53 L MPV 10.1 Prelim Diff (Auto) Slide review pending Neut % (Auto) 86.1 H Lymph % (Auto) 9.3 [place] % (Auto) 4.1 Eos % (Auto) 0.1 Baso % (Auto) 0.4 Neut # (Auto) 7.9 H Lymph # (Auto) 0.9 L [place] # (Auto) 0.4 Eos # (Auto) 0.0 Baso # (Auto) 0.0 WBC Differential . Diff Scan Auto diff confirmed Differential Comment . PT 15.7 H INR 1.6 Sodium 134 L Potassium 4.0 Chloride 99 Carbon Dioxide 30.7 Anion Gap 4 L BUN 11 Creatinine 0.68 Estimated GFR Greater than 89 Random Glucose 104 Lactic Acid Calcium 9.2 Total Bilirubin Direct Bilirubin Indirect Bilirubin AST ALT Alkaline Phosphatase Ammonia Total Creatine Kinase Troponin I Less than 0.02 L Total Protein Albumin Lipase Urine Color Urine Clarity Urine pH Ur Specific [place] Urine Protein Urine Glucose (UA) Urine Ketones Urine Occult Blood Urine Nitrate Urine Bilirubin Urine Urobilinogen Ur Leukocyte Esterase Urine WBC Micro UA Comment Ur Microscopic Review Urine Culture Comments Serum Alcohol 07/08/18 07/08/18 07/08/18 17:00 17:00 17:00 WBC RBC Hgb Hct MCV MCH MCHC RDW Plt Count MPV Prelim Diff (Auto) Neut % (Auto) Lymph % (Auto) [place] % (Auto) Eos % (Auto) Baso % (Auto) Neut # (Auto) Lymph # (Auto) [place] # (Auto) Eos # (Auto) Baso # (Auto) WBC Differential Diff Scan Differential Comment PT INR Sodium Potassium Chloride Carbon Dioxide Anion Gap BUN Creatinine Estimated GFR Random Glucose Lactic Acid Calcium Total Bilirubin 3.4 H Direct Bilirubin 1.8 H Indirect Bilirubin 1.6 H AST 276 H ALT 162 H Alkaline Phosphatase 106 Ammonia Total Creatine Kinase 61 Troponin I Total Protein 8.3 H Albumin 3.2 L Lipase 159 Urine Color Urine Clarity Urine pH Ur Specific [place] Urine Protein Urine Glucose (UA) Urine Ketones Urine Occult Blood Urine Nitrate Urine Bilirubin Urine Urobilinogen Ur Leukocyte Esterase Urine WBC Micro UA Comment Ur Microscopic Review Urine Culture Comments Serum Alcohol Less than 3 07/08/18 07/08/18 07/08/18 19:35 20:30 21:35 WBC RBC Hgb Hct MCV MCH MCHC RDW Plt Count MPV Prelim Diff (Auto) Neut % (Auto) Lymph % (Auto) [place] % (Auto) Eos % (Auto) Baso % (Auto) Neut # (Auto) Lymph # (Auto) [place] # (Auto) Eos # (Auto) Baso # (Auto) WBC Differential Diff Scan Differential Comment PT INR Sodium Potassium Chloride Carbon Dioxide Anion Gap BUN Creatinine Estimated GFR Random Glucose Lactic Acid 2.2 H 2.6 H Calcium Total Bilirubin Direct Bilirubin Indirect Bilirubin AST ALT Alkaline Phosphatase Ammonia Total Creatine Kinase Troponin I Total Protein Albumin Lipase Urine Color [place] Urine Clarity Clear Urine pH 7.0 Ur Specific [place] Greater than 1.060 H Urine Protein Negative Urine Glucose (UA) Negative Urine Ketones Negative Urine Occult Blood Negative Urine Nitrate Negative Urine Bilirubin Negative Urine Urobilinogen 4 or greater Ur Leukocyte Esterase Negative Urine WBC 1 Micro UA Comment Culture not ind Ur Microscopic Review Not Reportable Urine Culture Comments Culture not ind Serum Alcohol 07/08/18 21:45 WBC RBC Hgb Hct MCV MCH MCHC RDW Plt Count MPV Prelim Diff (Auto) Neut % (Auto) Lymph % (Auto) [place] % (Auto) Eos % (Auto) Baso % (Auto) Neut # (Auto) Lymph # (Auto) [place] # (Auto) Eos # (Auto) Baso # (Auto) WBC Differential Diff Scan Differential Comment PT INR Sodium Potassium Chloride Carbon Dioxide Anion Gap BUN Creatinine Estimated GFR Random Glucose Lactic Acid Calcium Total Bilirubin Direct Bilirubin Indirect Bilirubin AST ALT Alkaline Phosphatase Ammonia 19 Total Creatine Kinase Troponin I Total Protein Albumin Lipase Urine Color Urine Clarity Urine pH Ur Specific [place] Urine Protein Urine Glucose (UA) Urine Ketones Urine Occult Blood Urine Nitrate Urine Bilirubin Urine Urobilinogen Ur Leukocyte Esterase Urine WBC Micro UA Comment Ur Microscopic Review Urine Culture Comments Serum Alcohol - Imaging Impressions Head CT 07/08/18 17:06 CONCLUSION: 1. No acute intracranial abnormality. 2. Mild Atrophy. . Chest X-Ray 07/08/18 17:42 CONCLUSION: No evidence of acute cardiopulmonary disease. Elbow X-Ray 07/08/18 18:01 CONCLUSION: 1. Small, mildly displaced olecranon avulsion fracture fragments of the triceps insertion with associated soft tissue swelling. 2. Joint effusion. No perceptible intra-articular fracture. No subluxation. Abdomen/Pelvis CT 07/08/18 18:02 CONCLUSION: 1. Severe fatty infiltration of the liver. 2. Apparent pericholecystic fluid. Also fairly robust enhancement of the gallbladder mucosa. Please correlate clinically for any evidence of cholecystitis. No stones or ductal dilatation demonstrated. Gallbladder Ultrasound 07/08/18 18:53 CONCLUSION: 1. Small, nonspecific pericholecystic fluid without stones, wall thickening or sonographic Lundy's sign. The fluid may be on the basis of hepatocellular disease. The ultrasound does not support acute cholecystitis. 2. Fatty infiltrated and mildly enlarged liver. Caprini VTE Risk Assessment Caprini VTE Risk Assessment: Moderate/High Risk (score >= 2) Caprini Risk Assessment Model: Point Value = 1 Point Value = 2 Point Value = 3 Point Value = 5 Age 41-60 Minor surgery BMI > 25 kg/m2 Swollen legs Varicose veins or History of unexplained or recurrent spontaneous Oral contraceptives or hormone replacement Sepsis (< 1 month) Serious lung disease, including pneumonia (< 1 month) Abnormal pulmonary function Acute myocardial infarction Congestive heart failure (< 1 month) History of inflammatory bowel disease Medical patient at bed rest Age 61-74 Arthroscopic surgery Major open surgery (> 45 min) Laparoscopic surgery (> 45 min) Malignancy Confined to bed (> 72 hours) Immobilizing plaster cast Central venous access Age >= 75 History of VTE Family history of VTE Factor V Leiden Prothrombin [id number] Lupus anticoagulant Anticardiolipin antibodies Elevated serum homocysteine Heparin-induced thrombocytopenia Other congenital or acquired thrombophilia Stroke (< 1 month) Elective arthroplasty Hip, pelvis, or leg fracture Acute spinal cord injury (< 1 month) Prophylaxis Regimen: Total Risk Factor Score Risk Level Prophylaxis Regimen 0-1 Low Early ambulation 2 Moderate Order ONE of the following: *Sequential Compression Device (SCD) *Heparin 5000 units SQ BID 3-4 Higher Order ONE of the following medications: *Heparin 5000 units SQ TID *Enoxaparin/Lovenox 40 mg SQ daily (WT < 150 kg, CrCl > 30 mL/min) *Enoxaparin/Lovenox 30 mg SQ daily (WT < 150 kg, CrCl > 10-29 mL/min) *Enoxaparin/Lovenox 30 mg SQ BID (WT < 150 kg, CrCl > 30 mL/min) AND/OR *Sequential Compression Device (SCD) 5 or more Highest Order ONE of the following medications: *Heparin 5000 units SQ TID (Preferred with Epidurals) *Enoxaparin/Lovenox 40 mg SQ daily (WT < 150 kg, CrCl > 30 mL/min) *Enoxaparin/Lovenox 30 mg SQ daily (WT < 150 kg, CrCl > 10-29 mL/min) *Enoxaparin/Lovenox 30 mg SQ BID (WT < 150 kg, CrCl > 30 mL/min) AND *Sequential Compression Device (SCD) Assessment and Plan - Plan Assessment/plan: 1. Liver failure/? cholecystis Patient with transaminitis and T bili of 3.4 CT of the abdomen/pelvis significant for severe fatty infiltration of the liver with pericholecystic fluid, gallbladder ultrasound negative for acute cholecystitis Hepatitis profile pending Gastroenterology consulted, appreciate assistance 2. ? Syncope/? Chest pain Patient reports mild intermittent chest pain and denies any syncope or presyncopal event however per ED documentation states this is why the patient came to the ED Echo/carotid ultrasound pending ACS rule out pending; serial troponins/EKGs 3. Left elbow pain Elbow x-ray significant for a small, mildly displaced olecranon avulsion fracture with joint effusion Splint in place Orthopedic surgery consulted, appreciate assistance 4. Alcohol abuse [facility] protocol Monitor for signs of withdrawal Cessation counseling provided 5. Elevated lactic acid Unclear etiology Patient with no leukocytosis, + left shift - unclear if infectious etiology Chest x-ray pending Blood cultures pending UA negative IV fluid hydration Repeat lactic acid pending FEN Regular diet Electrolytes: Monitor and replete as needed NS at 100 cc/hour
[2018-07-09] MEDS: Sod Chloride 0.9% Inj 1,000 ML IV.CONT SCH ×3 (00:57→21:14)
--- NOTE | 2018-07-09 01:05 | XR ---
EXAM DATE: 07/09/2018 12:55 AM EST AGE/SEX: 63 years / Male INDICATIONS: Cough. CLINICAL DATA: This is the patient's subsequent encounter. Patient reports that signs and symptoms h ave been present for 1 day and indicates a pain score of 0/10. MEDICAL/SURGICAL HISTORY: Hypertension. None. COMPARISON: [facility] [place], CHEST 1V SINGLE AP, 07/08/2018. . FINDINGS: A single AP view of the chest demonstrates the lungs to be symmetrically aerated without evidence of mass, infiltrate or effusion. The cardiomediastinal contours are unremarkable. Osseous structures a re intact. CONCLUSION: Negative examination. Electronically signed by: Ry Mae MD 07/09/2018 1:04 AM EST
[2018-07-09] MEDS ORDERED: Naloxone Inj 0.4 MG/ML Vial IV.PUSH PRN (01:41)
[2018-07-09 03:25] LABS: Baso # (Auto) 0.1 th/mm3 (0.0-0.2); Baso % (Auto) 0.5 % (0.0-2.0); Eos % (Auto) 0.1 % (0.0-4.0); Hematocrit 41.2 % (39.0-51.0); Hemoglobin 14.1 gm/dL (13.0-17.0); Lymph % (Auto) 8.9 % (9.0-44.0); Mean Corpuscular HGB Conc 34.3 % (32.0-36.0); Mean Corpuscular Hemoglobin 33.4 pg (27.0-34.0); Mean Corpuscular Volume 97.5 fL (80.0-100.0); Mean Platelet Volume 11.3 fL (7.0-11.0); Mono # (Auto) 0.7 th/mm3 (0.0-0.9); Mono % (Auto) 5.6 % (0.0-8.0); Neut % (Auto) 84.9 % (16.0-70.0); Platelet Count 52 th/mm3 (150-450); Red Blood Count 4.23 mil/mm3 (4.50-5.90); Red Cell Distribution Width 12.4 % (11.6-17.2); White Blood Count 11.7 th/mm3 (4.0-11.0)
[2018-07-09 03:36] LABS: Anion Gap 10 meq/L (5-15); Blood Urea Nitrogen 13 mg/dL (7-18); Calcium 8.4 mg/dL (8.5-10.1); Carbon Dioxide 25.5 meq/L (21.0-32.0); Chloride 101 meq/L (98-107); Glomerular Filtration Rate 89 mL/min (>89); Glucose,Random 82 mg/dL (74-106); Potassium 4.7 meq/L (3.5-5.1); Sodium 136 meq/L (136-145)
[2018-07-09 03:52] LABS: Alanine Aminotransferase 1098 U/L (12-78); Alkaline Phosphatase 117 U/L (45-117); Aspartate Aminotransferase 2757 U/L (15-37); Total Protein 7.8 g/dL (6.4-8.2)
[2018-07-09 03:56] LABS: Creatine Kinase 99 U/L (39-308)
[2018-07-09] MEDS ORDERED: Vancomycin Consult Pharmacy OTHER PRN (04:03)
[2018-07-09] MEDS ORDERED: Sod Chloride 0.9% Inj 1,000 ML IV.SIG SCH (04:15)
[2018-07-09 04:30] LABS: Hepatitis A IgM Antibody Nonreactive (Nonreactive); Hepatitits B Surface Antigen Nonreactive (Nonreactive)
[2018-07-09] MEDS: Piperacil/Tazo 3.375 GM Premix 50 ML IV.SIG SCH ×4 (04:52→21:14)
[2018-07-09] MEDS ORDERED: Vancomycin Inj 800 MG in Sodium Chlor 0.9% Inj 250 ML IV.SIG SCH (06:00)
[2018-07-09] MEDS: Senna/Docusate Sodium 8.6/50 MG Tablet PO SCH ×2 (08:09→21:07)
[2018-07-09 08:31] LABS: Troponin I 0.06 ng/mL (0.02-0.05)
[2018-07-09] MEDS ORDERED: Folic Acid 1 MG Tablet PO SCH (09:00)
[2018-07-09] MEDS ORDERED: Multivitamin/Minerals Therapeutic Tablet PO SCH (09:00)
--- NOTE | 2018-07-09 10:53 | P.CONOP ---
[facility] Orthopedics Consult Note - [facility] Consult date: 07/09/18 Chief complaint: CP with Near Syncope, r/o ACS, Elev Liver Enzymes Narrative: Octavio is a 63-year-old male. He had a fall approximately week ago. He has a history of alcohol abuse. He has been having nausea and vomiting. He had a near syncopal episode yesterday. He also had chest pain. He drinks at least 8 beers a day. He does complain of left elbow pain. Pain is worse with movement. X-rays were taken in the emergency department which revealed a small avulsion fracture off the olecranon. His pain is worse with movement of the elbow. His pain is improved with rest. He also has some mild left shoulder pain. Review of Systems Patient denies fevers, chills, weight loss, headache, visual changes, hearing loss, palpitations, shortness of breath, urinary changes, diarrhea, bowel changes, neck pain, back pain, skin rashes, weakness of extremities, easy bleeding, enlarged lymph nodes, numbness of extremities, anxiety, or depression. He has had recent nausea, vomiting, and chest pain. He complains of left elbow pain Patient's social history, past medical history, and family history were reviewed on chart and with patient. [facility] - History History Provided By: Patient - Medical History Medical History: Medical History (Last Reviewed 07/09/18 @ 10:50 by Ld Reynolds MD) Patient denies medical problems - Surgical History Surgical History: Surgical History (Last Reviewed 07/09/18 @ 10:51 by Ld Reynolds MD) No history of previous surgery - Family History Family History: Family History (Last Reviewed 07/09/18 @ 10:51 by Ld Reynolds MD) Other Coronary artery disease Diabetes mellitus - Social History I have reviewed the patient's Social History: Yes - Tobacco History Second Hand Smoke Exposure: Yes Tobacco Use In Past 30 Days: Yes Smoking Status: Heavy tobacco smoker Tobacco Type: Cigarettes - Alcohol History How Often Do You Have a Drink Containing Alcohol: 4 or more times a week - Substance Use History Substance History: No History of Abuse - Travel History Recent Travel in the [facility] Within the Last 8 Weeks: No Recent Travel Out of the Country Within the Last 8 Weeks: No - Immunization History Tetanus Immunization: >5 Years Hx Influenza Vaccine This Season: No Medications and Allergies Active Medications: Active Medications Acetaminophen (Tylenol) 650 mg PO Q4H PRN PRN Reason: headache/fever/pain1-4 Hydrocodone Bitart/Acetaminophen ([place] 5/325) 1 tab PO Q6H PRN PRN Reason: pain scale 5 to 10 Last Admin: 07/09/18 08:09 Dose: 1 tab Al Hydroxide/Mg Hydroxide (Milk Of Magnesia Liq) 30 ml PO Q12H PRN PRN Reason: Mild Constipation Bisacodyl (Dulcolax Supp) 10 mg RECTAL DAILY PRN PRN Reason: SEVERE CONSITIPATION Clonidine HCl (Catapres) 0.1 mg PO Q6H PRN PRN Reason: For SBP >/= 180, DBP >/= 100 Flumazenil (Romazecon Inj) 0.2 mg IV.PUSH Q1M PRN PRN Reason: OVERSEDATION Folic Acid (Folic Acid) 1 mg PO DAILY [facility] Stop: 07/14/18 08:59 Last Admin: 07/09/18 08:09 Dose: 1 mg Haloperidol Lactate (Haldol Inj) 1 mg IV.PUSH Q15M PRN PRN Reason: for severe agitation Sodium Chloride (Ns Inj) 1,000 mls @ 100 mls/hr IV.CONT .Q10H [facility] Last Admin: 07/09/18 00:57 Dose: 100 mls/hr Piperacillin/Tazobactam/Dextrose (Zosyn 3.375 Gm Premix) 50 mls @ 100 mls/hr IV.SIG Q6H [facility] Last Infusion: 07/09/18 05:05 Dose: Infused Lactulose (Lactulose Liq) 30 ml PO DAILY PRN PRN Reason: SEVERE CONSITIPATION Lorazepam (Ativan) 1 mg PO Q4H PRN PRN Reason: for CIWA 8-10 Lorazepam (Ativan) 2 mg PO Q2H PRN PRN Reason: for CIWA 11-14 Lorazepam (Ativan Inj) 2 mg IV.PUSH Q2H PRN PRN Reason: for CIWA 11-14 Lorazepam (Ativan Inj) 2 mg IV.PUSH Q1H PRN PRN Reason: for CIWA 15-20 Lorazepam (Ativan Inj) 2 mg IV.PUSH Q15M PRN PRN Reason: for CIWA > 20 Lorazepam (Ativan Inj) 1 mg IV.PUSH Q4H PRN PRN Reason: for CIWA 8-10 Morphine Sulfate (Morphine Inj) 2 mg IV.PUSH Q4H PRN PRN Reason: BREAKTHROUGH PAIN Multivitamins/Minerals (Theragran-M) 1 tab PO DAILY [facility] Stop: 07/14/18 08:59 Last Admin: 07/09/18 08:09 Dose: 1 tab Naloxone HCl (Narcan Inj) 0.4 mg IV.PUSH UNSCH PRN PRN Reason: SEE LABEL COMMENTS Ondansetron HCl (Zofran Inj) 4 mg IV.PUSH Q6H PRN PRN Reason: NAUSEA OR VOMITING Pharmacy Profile Note (Vancomycin Consult Pharmacy) 1 each OTHER UNSCH PRN PRN Reason: Pharmacy to dose Senna/Docusate Sodium (Lizzeth-Colace) 1 tab PO BID [facility] Last Admin: 07/09/18 08:09 Dose: 1 tab Sennosides (Senokot) 17.2 mg PO Q12H PRN PRN Reason: Moderate Constipation Sodium Chloride (Ns Flush) 2 ml IV.FLUSH PRN PRN PRN Reason: FLUSH AFTER USING IV ACCESS Sodium Chloride (Ns Flush) 2 ml IV.FLUSH BID [facility] Last Admin: 07/09/18 08:14 Dose: Not Given Thiamine HCl (Vitamin B1) 100 mg PO DAILY [facility] Last Admin: 07/09/18 08:09 Dose: 100 mg Allergies Allergy/AdvReac Type Severity Reaction Status Date / Time No Known Allergies Allergy Verified 07/08/18 12:30 Home Medications Medication Instructions Recorded Confirmed Type No Known Home Medications 07/08/18 07/08/18 History Exam Vital signs: Vital Signs 07/08/18 12:28 07/08/18 17:04 07/09/18 01:05 Temperature 99.6 F 98.8 F Pulse Rate 93 H 89 122 H Respiratory Rate 18 17 18 Blood Pressure 134/74 137/88 105/63 Pulse Oximetry 98 100 98 07/09/18 04:05 07/09/18 08:00 Temperature 97.5 F L 97.6 F Pulse Rate 114 H 110 H Respiratory Rate 18 17 Blood Pressure 101/55 L 98/53 L Pulse Oximetry 97 97 Intake & Output 07/08/18 07/09/18 07/09/18 18:59 06:59 18:59 Intake Total 1700 / 1700 258 / 258 Output Total 90 / 90 Balance 1610 / 1610 258 / 258 Weight 61.235 kg 61.2 kg Intake: IV 1100 / 1100 258 / 258 Zosyn 3.375 GM Premix 50 ML @ 100 / 100 100 mls/hr IV.SIG Q6H [facility] Rx#: [id number] NS Inj 1,000 ML @ 1000 mls/hr 1000 / 1000 IV.SIG BOLUS [facility] Rx#:[id number] Vancomycin Inj 800 MG In NS Inj 258 / 258 250 ML @ 250 mls/hr IV.SIG DAILY@0600 [facility] Rx#:[id number] Oral 600 / 600 Output: Urine 90 / 90 Other: # Bowel Movements 0 Weight On Admission 61.235 kg Narrative: Choco is a 63-year-old male. He is awake and alert. He appears older than stated age. General: Awake and alert. No acute distress. Appears well-developed well- nourished Head: Normocephalic, atraumatic pupils are equal Neck: Soft, nontender, trachea midline Abdomen: Soft, nondistended Examination of right arm reveals no pain or deformity with shoulder, elbow, or wrist motion. Skin is intact. Radial pulse is palpable. Normal capillary refill in fingers. Sensation is intact in radial, ulnar, and median nerve distributions. Editorial Writer strength is +5. No lymphadenopathy noted. Examination of left arm reveals mild discomfort with shoulder motion. He is tender to palpation over his posterior elbow. He has no pain with wrist or finger motion. He does have some pain with resisted elbow extension. Skin is intact. Radial pulse is palpable. Normal capillary refill in fingers. Sensation is intact in radial, ulnar, and median nerve distributions. Editorial Writer strength is +5. No lymphadenopathy noted. Examination of left lower extremity reveals no pain or deformity with hip, knee , or ankle motion. Skin is intact. Sensation is intact in left foot. Dorsalis pedis pulse is palpable. Normal capillary refill and feet. Thigh and calf compartments are soft. No lymphadenopathy noted. +5 strength of ankle dorsiflexion and plantarflexion. Examination of right lower extremity reveals no pain or deformity with hip, knee , or ankle motion. Skin is intact. Sensation is intact in right foot. Dorsalis pedis pulse is palpable. Normal capillary refill and feet. Thigh and calf compartments are soft. No lymphadenopathy noted. +5 strength of ankle dorsiflexion and plantarflexion. Results - Labs Result Diagrams: 07/09/18 02:45 07/09/18 02:45 Labs: Laboratory Results - last 24 hr 07/08/18 07/08/18 07/08/18 17:00 17:00 17:00 WBC 9.2 RBC 4.47 L Hgb 15.3 Hct 44.0 MCV 98.3 MCH 34.2 H MCHC 34.8 RDW 12.3 Plt Count 53 L MPV 10.1 Prelim Diff (Auto) Slide review pending Neut % (Auto) 86.1 H Lymph % (Auto) 9.3 [place] % (Auto) 4.1 Eos % (Auto) 0.1 Baso % (Auto) 0.4 Neut # (Auto) 7.9 H Lymph # (Auto) 0.9 L [place] # (Auto) 0.4 Eos # (Auto) 0.0 Baso # (Auto) 0.0 WBC Differential . Diff Scan Auto diff confirmed Differential Comment . Platelet Estimate Platelet Morphology PT 15.7 H INR 1.6 Sodium 134 L Potassium 4.0 Chloride 99 Carbon Dioxide 30.7 Anion Gap 4 L BUN 11 Creatinine 0.68 Estimated GFR Greater than 89 Random Glucose 104 Lactic Acid Calcium 9.2 Total Bilirubin Direct Bilirubin Indirect Bilirubin AST ALT Alkaline Phosphatase Ammonia Total Creatine Kinase Troponin I Less than 0.02 L Total Protein Albumin Lipase Urine Color Urine Clarity Urine pH Ur Specific Spicer Urine Protein Urine Glucose (UA) Urine Ketones Urine Occult Blood Urine Nitrate Urine Bilirubin Urine Urobilinogen Ur Leukocyte Esterase Urine WBC Micro UA Comment Ur Microscopic Review Urine Culture Comments Serum Alcohol Hepatitis A IgM Ab Hep Bs Antigen Hep B Core IgM Ab Hep C IgG Ab 07/08/18 07/08/18 07/08/18 17:00 17:00 17:00 WBC RBC Hgb Hct MCV MCH MCHC RDW Plt Count MPV Prelim Diff (Auto) Neut % (Auto) Lymph % (Auto) [place] % (Auto) Eos % (Auto) Baso % (Auto) Neut # (Auto) Lymph # (Auto) [place] # (Auto) Eos # (Auto) Baso # (Auto) WBC Differential Diff Scan Differential Comment Platelet Estimate Platelet Morphology PT INR Sodium Potassium Chloride Carbon Dioxide Anion Gap BUN Creatinine Estimated GFR Random Glucose Lactic Acid Calcium Total Bilirubin 3.4 H Direct Bilirubin 1.8 H Indirect Bilirubin 1.6 H AST 276 H ALT 162 H Alkaline Phosphatase 106 Ammonia Total Creatine Kinase 61 Troponin I Total Protein 8.3 H Albumin 3.2 L Lipase 159 Urine Color Urine Clarity Urine pH Ur Specific Spicer Urine Protein Urine Glucose (UA) Urine Ketones Urine Occult Blood Urine Nitrate Urine Bilirubin Urine Urobilinogen Ur Leukocyte Esterase Urine WBC Micro UA Comment Ur Microscopic Review Urine Culture Comments Serum Alcohol Less than 3 Hepatitis A IgM Ab Hep Bs Antigen Hep B Core IgM Ab Hep C IgG Ab 07/08/18 07/08/18 07/08/18 19:35 20:30 21:35 WBC RBC Hgb Hct MCV MCH MCHC RDW Plt Count MPV Prelim Diff (Auto) Neut % (Auto) Lymph % (Auto) [place] % (Auto) Eos % (Auto) Baso % (Auto) Neut # (Auto) Lymph # (Auto) [place] # (Auto) Eos # (Auto) Baso # (Auto) WBC Differential Diff Scan Differential Comment Platelet Estimate Platelet Morphology PT INR Sodium Potassium Chloride Carbon Dioxide Anion Gap BUN Creatinine Estimated GFR Random Glucose Lactic Acid 2.2 H 2.6 H Calcium Total Bilirubin Direct Bilirubin Indirect Bilirubin AST ALT Alkaline Phosphatase Ammonia Total Creatine Kinase Troponin I Total Protein Albumin Lipase Urine Color Whitney Urine Clarity Clear Urine pH 7.0 Ur Specific Spicer Greater than 1.060 H Urine Protein Negative Urine Glucose (UA) Negative Urine Ketones Negative Urine Occult Blood Negative Urine Nitrate Negative Urine Bilirubin Negative Urine Urobilinogen 4 or greater Ur Leukocyte Esterase Negative Urine WBC 1 Micro UA Comment Culture not ind Ur Microscopic Review Not Reportable Urine Culture Comments Culture not ind Serum Alcohol Hepatitis A IgM Ab Hep Bs Antigen Hep B Core IgM Ab Hep C IgG Ab 07/08/18 07/09/18 07/09/18 21:45 02:32 02:45 WBC RBC Hgb Hct MCV MCH MCHC RDW Plt Count MPV Prelim Diff (Auto) Neut % (Auto) Lymph % (Auto) [place] % (Auto) Eos % (Auto) Baso % (Auto) Neut # (Auto) Lymph # (Auto) [place] # (Auto) Eos # (Auto) Baso # (Auto) WBC Differential Diff Scan Differential Comment Platelet Estimate Platelet Morphology PT INR Sodium Potassium Chloride Carbon Dioxide Anion Gap BUN Creatinine Estimated GFR Random Glucose Lactic Acid 3.5 H Calcium Total Bilirubin Direct Bilirubin Indirect Bilirubin AST ALT Alkaline Phosphatase Ammonia 19 Total Creatine Kinase Troponin I Total Protein Albumin Lipase Urine Color Urine Clarity Urine pH Ur Specific Spicer Urine Protein Urine Glucose (UA) Urine Ketones Urine Occult Blood Urine Nitrate Urine Bilirubin Urine Urobilinogen Ur Leukocyte Esterase Urine WBC Micro UA Comment Ur Microscopic Review Urine Culture Comments Serum Alcohol Hepatitis A IgM Ab Nonreactive Hep Bs Antigen Nonreactive Hep B Core IgM Ab Nonreactive Hep C IgG Ab Nonreactive 07/09/18 07/09/18 07/09/18 02:45 02:45 05:45 WBC 11.7 H RBC 4.23 L Hgb 14.1 Hct 41.2 MCV 97.5 MCH 33.4 MCHC 34.3 RDW 12.4 Plt Count 52 L MPV 11.3 H Prelim Diff (Auto) Slide review pending Neut % (Auto) 84.9 H Lymph % (Auto) 8.9 L [place] % (Auto) 5.6 Eos % (Auto) 0.1 Baso % (Auto) 0.5 Neut # (Auto) 10.0 H Lymph # (Auto) 1.0 [place] # (Auto) 0.7 Eos # (Auto) 0.0 Baso # (Auto) 0.1 WBC Differential . Diff Scan Auto diff confirmed Differential Comment . Platelet Estimate Low L Platelet Morphology Enlarged H PT INR Sodium 136 Potassium 4.7 Chloride 101 Carbon Dioxide 25.5 Anion Gap 10 BUN 13 Creatinine 0.87 Estimated GFR 89 Random Glucose 82 Lactic Acid 3.7 H Calcium 8.4 L D Total Bilirubin 4.4 H Direct Bilirubin Indirect Bilirubin AST 2757 H ALT 1098 H Alkaline Phosphatase 117 Ammonia Total Creatine Kinase 99 Troponin I Less than 0.02 L Total Protein 7.8 Albumin 3.0 L Lipase Urine Color Urine Clarity Urine pH Ur Specific Spicer Urine Protein Urine Glucose (UA) Urine Ketones Urine Occult Blood Urine Nitrate Urine Bilirubin Urine Urobilinogen Ur Leukocyte Esterase Urine WBC Micro UA Comment Ur Microscopic Review Urine Culture Comments Serum Alcohol Hepatitis A IgM Ab Hep Bs Antigen Hep B Core IgM Ab Hep C IgG Ab 07/09/18 07:40 WBC RBC Hgb Hct MCV MCH MCHC RDW Plt Count MPV Prelim Diff (Auto) Neut % (Auto) Lymph % (Auto) [place] % (Auto) Eos % (Auto) Baso % (Auto) Neut # (Auto) Lymph # (Auto) [place] # (Auto) Eos # (Auto) Baso # (Auto) WBC Differential Diff Scan Differential Comment Platelet Estimate Platelet Morphology PT INR Sodium Potassium Chloride Carbon Dioxide Anion Gap BUN Creatinine Estimated GFR Random Glucose Lactic Acid Calcium Total Bilirubin Direct Bilirubin Indirect Bilirubin AST ALT Alkaline Phosphatase Ammonia Total Creatine Kinase 116 Troponin I 0.06 H Total Protein Albumin Lipase Urine Color Urine Clarity Urine pH Ur Specific Sp[place] Urine Protein Urine Glucose (UA) Urine Ketones Urine Occult Blood Urine Nitrate Urine Bilirubin Urine Urobilinogen Ur Leukocyte Esterase Urine WBC Micro UA Comment Ur Microscopic Review Urine Culture Comments Serum Alcohol Hepatitis A IgM Ab Hep Bs Antigen Hep B Core IgM Ab Hep C IgG Ab - Diagnostic results Imaging: Impressions Head CT 07/08/18 17:06 CONCLUSION: 1. No acute intracranial abnormality. 2. Mild Atrophy. . Chest X-Ray 07/08/18 17:42 CONCLUSION: No evidence of acute cardiopulmonary disease. Elbow X-Ray 07/08/18 18:01 CONCLUSION: 1. Small, mildly displaced olecranon avulsion fracture fragments of the triceps insertion with associated soft tissue swelling. 2. Joint effusion. No perceptible intra-articular fracture. No subluxation. Abdomen/Pelvis CT 07/08/18 18:02 CONCLUSION: 1. Severe fatty infiltration of the liver. 2. Apparent pericholecystic fluid. Also fairly robust enhancement of the gallbladder mucosa. Please correlate clinically for any evidence of cholecystitis. No stones or ductal dilatation demonstrated. Gallbladder Ultrasound 07/08/18 18:53 CONCLUSION: 1. Small, nonspecific pericholecystic fluid without stones, wall thickening or sonographic Lundy's sign. The fluid may be on the basis of hepatocellular disease. The ultrasound does not support acute cholecystitis. 2. Fatty infiltrated and mildly enlarged liver. Chest X-Ray 07/09/18 00:39 CONCLUSION: Negative examination. Elbow x-ray: report reviewed, image reviewed Assessment and Plan - Assessment and Plan Then he had a fall last week resulting in left elbow pain. X-rays reveal a small avulsion fracture off the posterior olecranon. The elbow is concentrically reduced. He has also had recent nausea vomiting and chest pain. He has a history of alcohol abuse. At this point I would recommend temporary immobilization of the left elbow with a splint. He should follow-up in clinic in 2 weeks. He will need repeat x-rays of his left elbow. At that point I will plan on discontinuing his splint and beginning range of motion exercises. He is in agreement with this plan. I discussed with him the need for him to stop drinking. He understands that alcohol will likely lead to further medical problems including liver problems and injuries from falls. All questions were answered. A mid-level provider in my office (nurse practitioner or physician curriculum assistant principal) may see this patient on follow-up visits and continue to implement the objectives of this plan including: Starting or adjusting medications, injections , cast application, orthotics, brace application, physical therapy, radiological studies (including x-ray, MRI, CT, ultrasound, bone scan), vascular studies, neurologic studies, specialist consultation, and proceeding with surgical management, as appropriate.
--- NOTE | 2018-07-09 10:58 | US ---
EXAM DATE: 07/09/2018 10:44 AM EST AGE/SEX: 63 years / Male INDICATIONS: Syncope. CLINICAL DATA: This is the patient's initial encounter. Patient reports that signs and symptoms have been present for 1 day and indicates a pain score of 0/10. MEDICAL/SURGICAL HISTORY: . Syncope. Left elbow fracture. ETOH abuse. None. COMPARISON: No prior exams available for comparison. VELOCITY PARAMETERS: ICA/CCA Ratio: Right 2.7 , Left 0.9 ICA: Right 265 cm/sec, Left 100 cm/sec CCA: Right 113 cm/sec, Left 129 cm/sec ECA: Right 161 cm/sec, Left 169 cm/sec Vertebral: Right 68 cm/sec antegrade, Left 56 cm/sec antegrade FINDINGS: Right Carotid: There is intimal thickening throughout the common carotid artery with mild calcified plaque in the carotid bulb and proximal internal carotid artery. There is spectral broadening. Left Carotid: There is intimal thickening and scattered noncalcified plaque throughout the common ca rotid artery with mild calcified and noncalcified plaque in the carotid bulb and proximal internal ca rotid artery. The waveforms are within normal limits. Other: None. CONCLUSION: 1. Right Internal Carotid Artery: Findings indicate >70% stenosis, but less than near occlusion. 2. Left Internal Carotid Artery: Findings indicate <50% stenosis. Electronically signed by: Calvin Santa MD 07/09/2018 10:57 AM EST
[2018-07-09] MEDS: Vancomycin Inj 1,250 MG in Sodium Chlor 0.9% Inj 250 ML IV.SIG SCH (12:31)
--- NOTE | 2018-07-09 12:33 | P.PNIM ---
Subjective Interval history: Follow up right upper quadrant abdominal pain, nausea/vomiting , left arm pain, chest pain Patient is resting in bed. His left upper extremity remains in an immobilizer. Patient reports slight decrease in left elbow pain since admission. Reports abdominal pain and points to his right upper quadrant. Patient denies any prior known history of liver disease. He does admit to drinking 2, 4 packs of beer daily. Patient denies nausea or vomiting. Physical Exam Vital signs: Last Vital Signs Temp 97.9 F 07/09/18 12:00 Pulse 105 H 07/09/18 12:00 Resp 17 07/09/18 12:00 BP 103/56 L 07/09/18 12:00 Pulse Ox 96 07/09/18 12:00 Intake & Output 07/07/18 07/08/18 07/09/18 07/10/18 06:59 06:59 06:59 06:59 Intake Total 1700 / 1700 1308 / 1308 Output Total 90 / 90 Balance 1610 / 1610 1308 / 1308 Weight 61.2 kg Narrative: GENERAL: no acute distress SKIN: warm and dry HEAD: normocephalic, atraumatic EYES: Left pupil dilated 6 mm and chronic due to childhood injury. No injection or drainage. NECK: Supple, trachea midline. No JVD or lymphadenopathy. CARDIOVASCULAR: Regular rate and rhythm without murmurs, gallops, or rubs. RESPIRATORY: Breath sounds equal bilaterally. No accessory muscle use. GASTROINTESTINAL: right upper quadrant tenderness, no distention MUSCULOSKELETAL: No cyanosis, or edema. Results Labs CBC & Chem 7: 07/09/18 02:45 07/09/18 02:45 Labs: Microbiology 07/08/18 19:35 Blood - Peripheral Aerobic Blood Culture - Preliminary No growth in 1 day 07/08/18 19:35 Blood - Peripheral Anaerobic Blood Culture - Preliminary No growth in 1 day 07/08/18 19:30 Blood - Peripheral Aerobic Blood Culture - Preliminary No growth in 1 day 07/08/18 19:30 Blood - Peripheral Anaerobic Blood Culture - Preliminary No growth in 1 day Imaging Imaging: Impressions Head CT 07/08/18 17:06 CONCLUSION: 1. No acute intracranial abnormality. 2. Mild Atrophy. . Chest X-Ray 07/08/18 17:42 CONCLUSION: No evidence of acute cardiopulmonary disease. Elbow X-Ray 07/08/18 18:01 CONCLUSION: 1. Small, mildly displaced olecranon avulsion fracture fragments of the triceps insertion with associated soft tissue swelling. 2. Joint effusion. No perceptible intra-articular fracture. No subluxation. Abdomen/Pelvis CT 07/08/18 18:02 CONCLUSION: 1. Severe fatty infiltration of the liver. 2. Apparent pericholecystic fluid. Also fairly robust enhancement of the gallbladder mucosa. Please correlate clinically for any evidence of cholecystitis. No stones or ductal dilatation demonstrated. Gallbladder Ultrasound 07/08/18 18:53 CONCLUSION: 1. Small, nonspecific pericholecystic fluid without stones, wall thickening or sonographic Lundy's sign. The fluid may be on the basis of hepatocellular disease. The ultrasound does not support acute cholecystitis. 2. Fatty infiltrated and mildly enlarged liver. Carotid Doppler Study 07/09/18 00:00 CONCLUSION: 1. Right Internal Carotid Artery: Findings indicate >70% stenosis, but less than near occlusion. 2. Left Internal Carotid Artery: Findings indicate <50% stenosis. Chest X-Ray 07/09/18 00:39 CONCLUSION: Negative examination. Assessment and Plan Plan Patient is a 63 y/o male with a past medical history significant for alcohol abuse and recent left arm pain. He presented to the ED complaining of chest pain, near syncope, nausea, vomiting and left arm pain s/p fall injury 1 week ago. Liver failure/? cholecystis - evaluated -patient with transaminitis and T bili of 3.4 -CT of the abdomen/pelvis significant for severe fatty infiltration of the liver with pericholecystic fluid, gallbladder ultrasound negative for acute cholecystitis -Hepatitis profile negative -Gastroenterology consulted, appreciate assistance Chest pain - evaluated 07/09/18 -pt reports mild intermittent chest pain and denies any syncope or presyncopal event, however, per ED documentation states this is why the patient came to the ED -Echo pending -serial troponins trending upward/repeat EKG and troponin pending Syncope - evaluated 07/09/18 -carotid ultrasound - Right Internal Carotid Artery: Findings indicate >70% stenosis, but less than near occlusion. Left Internal Carotid Artery: Findings indicate <50% stenosis. -consult vascular surgery, we appreciate their input -echo pending Left elbow pain - evaluated 07/09/18, improving -Elbow x-ray significant for a small, mildly displaced olecranon avulsion fracture with joint effusion -Splint in place -Orthopedic surgery consulted, appreciate assistance. Recommends temporary immobilization with a splint. F/u in clinic in 2 weeks to evaluate for removal of splint and beginning ROM exercises Alcohol abuse - evaluated 07/09/18 -continue CIWA protocol -Monitor for signs of withdrawal -Cessation counseling provided Elevated lactic acid - evaluated 07/09/18, unclear etiology -Patient with no leukocytosis, + left shift - unclear if infectious etiology -Chest x-ray shows no acute process -Blood cultures w/ no growth after 1 day -UA negative -continue IV fluid hydration -repeat lactic acid pending MDM: self Code: Full GI ppx: PPI DVT ppx: Heparin SQ Progress Note: Quality VTE Deep Vein Thrombosis/Pulmonary Embolism Present on Admission: No
[2018-07-09] MEDS: Pantoprazole Inj 40 MG Vial IV.PUSH SCH (14:26)
--- NOTE | 2018-07-09 14:33 | P.CONGI ---
History of Present Illness Consult date: 07/09/18 Consult reason: Liver failure with elevated bilirubin Chief complaint: CP with Near Syncope, r/o ACS, Elev Liver Enzymes History of Present Illness: Patient is a 63-year-old male with past medical history significant for excessive alcohol abuse. Patient presented to the emergency room at [facility] with complaint of nausea and vomiting times 1 day. Patient also endorses right upper quadrant pain that radiates to mid upper abdomen. He describes same as cramping states it is constant without any alleviating or aggravating factors. Upon admission, WBC 11.7 hemoglobin 14.1 hematocrit 41 INR 1.6 total bilirubin 4.4 AST 2757 ALT 1098 alk phos [address] shows fatty liver with questionable cholecystitis. Patient denies any high risk behaviors. He denies IV drug use, tattoos or any high risk sexual behaviors. Patient states he smokes 1 pack/day and drinks a sixpack of beer daily. He denies ever having had a EGD or colonoscopy in the past. He denies any bleeding. Denies any change in bowel habits. States his stools are brown in color with no noted bleeding. Patient does endorse his urine has become darker tea colored over the last 2 days. Our service has been consulted to evaluate patient for liver failure with hyperbilirubinemia. Review of Systems All other systems reviewed negative except as stated in HPI PMFSH - History History Provided By: Patient - Medical History Medical History: Medical History (Last Reviewed 07/09/18 @ 10:50 by Ld Reynolds MD) Patient denies medical problems - Surgical History Surgical History: Surgical History (Last Reviewed 07/09/18 @ 10:51 by Ld Reynolds MD) No history of previous surgery - Family History Family History: Family History (Last Reviewed 07/09/18 @ 10:51 by Ld Reynolds MD) Other Coronary artery disease Diabetes mellitus - Tobacco History Second Hand Smoke Exposure: Yes Tobacco Use In Past 30 Days: Yes Smoking Status: Heavy tobacco smoker Tobacco Type: Cigarettes - Alcohol History How Often Do You Have a Drink Containing Alcohol: 4 or more times a week - Substance Use History Substance History: No History of Abuse - Travel History Recent Travel in the [place] Within the Last 8 Weeks: No Recent Travel Out of the Country Within the Last 8 Weeks: No - Immunization History Tetanus Immunization: >5 Years Hx Influenza Vaccine This Season: No Medications and Allergies Active Medications: Active Medications Acetaminophen (Tylenol) 650 mg PO Q4H PRN PRN Reason: headache/fever/pain1-4 Hydrocodone Bitart/Acetaminophen ([place] 5/325) 1 tab PO Q6H PRN PRN Reason: pain scale 5 to 10 Last Admin: 07/09/18 08:09 Dose: 1 tab Al Hydroxide/Mg Hydroxide (Milk Of Magnesia Liq) 30 ml PO Q12H PRN PRN Reason: Mild Constipation Bisacodyl (Dulcolax Supp) 10 mg RECTAL DAILY PRN PRN Reason: SEVERE CONSITIPATION Clonidine HCl (Catapres) 0.1 mg PO Q6H PRN PRN Reason: For SBP >/= 180, DBP >/= 100 Flumazenil (Romazecon Inj) 0.2 mg IV.PUSH Q1M PRN PRN Reason: OVERSEDATION Folic Acid (Folic Acid) 1 mg PO DAILY [facility] Stop: 07/14/18 08:59 Last Admin: 07/09/18 08:09 Dose: 1 mg Haloperidol Lactate (Haldol Inj) 1 mg IV.PUSH Q15M PRN PRN Reason: for severe agitation Sodium Chloride (Ns Inj) 1,000 mls @ 100 mls/hr IV.CONT .Q10H [facility] Last Admin: 07/09/18 11:55 Dose: 100 mls/hr Piperacillin/Tazobactam/Dextrose (Zosyn 3.375 Gm Premix) 50 mls @ 100 mls/hr IV.SIG Q6H [facility] Last Infusion: 07/09/18 11:43 Dose: Infused Vancomycin HCl 1,250 mg/ (Sodium Chloride) 262.5 mls @ 250 mls/hr IV.SIG Q12H [facility] Last Infusion: 07/09/18 13:39 Dose: Infused Lactulose (Lactulose Liq) 30 ml PO DAILY PRN PRN Reason: SEVERE CONSITIPATION Lorazepam (Ativan) 1 mg PO Q4H PRN PRN Reason: for CIWA 8-10 Lorazepam (Ativan) 2 mg PO Q2H PRN PRN Reason: for CIWA 11-14 Lorazepam (Ativan Inj) 2 mg IV.PUSH Q2H PRN PRN Reason: for CIWA 11-14 Lorazepam (Ativan Inj) 2 mg IV.PUSH Q1H PRN PRN Reason: for CIWA 15-20 Lorazepam (Ativan Inj) 2 mg IV.PUSH Q15M PRN PRN Reason: for CIWA > 20 Lorazepam (Ativan Inj) 1 mg IV.PUSH Q4H PRN PRN Reason: for CIWA 8-10 Miscellaneous Information ([facility] Ordered Lab Info) 0 each OTHER ONCE ONE Stop: 07/11/18 00:46 Morphine Sulfate (Morphine Inj) 2 mg IV.PUSH Q4H PRN PRN Reason: BREAKTHROUGH PAIN Multivitamins/Minerals (Theragran-M) 1 tab PO DAILY [facility] Stop: 07/14/18 08:59 Last Admin: 07/09/18 08:09 Dose: 1 tab Naloxone HCl (Narcan Inj) 0.4 mg IV.PUSH UNSCH PRN PRN Reason: SEE LABEL COMMENTS Ondansetron HCl (Zofran Inj) 4 mg IV.PUSH Q6H PRN PRN Reason: NAUSEA OR VOMITING Pantoprazole Sodium (Protonix Inj) 40 mg IV.PUSH DAILY [facility] Pharmacy Profile Note (Vancomycin Consult Pharmacy) 1 each OTHER UNSCH PRN PRN Reason: Pharmacy to dose Senna/Docusate Sodium (Lizzeth-Colace) 1 tab PO BID [facility] Last Admin: 07/09/18 08:09 Dose: 1 tab Sennosides (Senokot) 17.2 mg PO Q12H PRN PRN Reason: Moderate Constipation Sodium Chloride (Ns Flush) 2 ml IV.FLUSH PRN PRN PRN Reason: FLUSH AFTER USING IV ACCESS Sodium Chloride (Ns Flush) 2 ml IV.FLUSH BID [facility] Last Admin: 07/09/18 08:14 Dose: Not Given Thiamine HCl (Vitamin B1) 100 mg PO DAILY [facility] Last Admin: 07/09/18 08:09 Dose: 100 mg Allergies Allergy/AdvReac Type Severity Reaction Status Date / Time No Known Allergies Allergy Verified 07/08/18 12:30 Home Medications Medication Instructions Recorded Confirmed Type No Known Home Medications 07/08/18 07/08/18 History Exam Vital signs: Vital Signs 07/08/18 17:04 07/09/18 01:05 07/09/18 04:05 Temperature 98.8 F 97.5 F L Pulse Rate 89 122 H 114 H Respiratory Rate 17 18 18 Blood Pressure 137/88 105/63 101/55 L Pulse Oximetry 100 98 97 07/09/18 08:00 07/09/18 12:00 Temperature 97.6 F 97.9 F Pulse Rate 110 H 105 H Respiratory Rate 17 17 Blood Pressure 98/53 L 103/56 L Pulse Oximetry 97 96 Intake & Output 07/08/18 07/09/18 07/09/18 18:59 06:59 18:59 Intake Total 1700 / 1700 1570.5 / 1570.5 Output Total 90 / 90 Balance 1610 / 1610 1570.5 / 1570.5 Weight 61.235 kg 61.2 kg Intake: IV 1100 / 1100 1570.5 / 1570.5 NS Inj 1,000 ML @ 100 mls/hr IV 1000 / 1000 .CONT .Q10H [facility] Rx#:[id number] Zosyn 3.375 GM Premix 50 ML @ 100 / 100 50 / 50 100 mls/hr IV.SIG Q6H [facility] Rx#: [id number] NS Inj 1,000 ML @ 1000 mls/hr 1000 / 1000 IV.SIG BOLUS [facility] Rx#:[id number] Vancomycin Inj 1,250 MG In NS 520.5 / 520.5 Inj 250 ML @ 250 mls/hr IV.SIG Q12H [facility] Rx#:[id number] Oral 600 / 600 Output: Urine 90 / 90 Other: # Bowel Movements 0 Weight On Admission 61.235 kg - Constitutional no acute distress - Routine HEENT Exam Head: Present: normocephalic - Routine Respiratory Exam Present: CTA bilaterally - Routine Cardiovascular Exam Present: RRR - Routine Abdominal Exam Present: soft, normoactive bowel sounds. Absent: tenderness, distended, guarding, firm - Routine Extremities Exam Absent: edema - Routine Skin Exam Present: dry, warm - Routine Neurological Exam Present: alert Results - Labs CBC & Chem 7: 07/09/18 02:45 07/09/18 02:45 Labs: Laboratory Results - last 24 hr 07/08/18 07/08/18 07/08/18 17:00 17:00 17:00 WBC 9.2 RBC 4.47 L Hgb 15.3 Hct 44.0 MCV 98.3 MCH 34.2 H MCHC 34.8 RDW 12.3 Plt Count 53 L MPV 10.1 Prelim Diff (Auto) Slide review pending Neut % (Auto) 86.1 H Lymph % (Auto) 9.3 [place] % (Auto) 4.1 Eos % (Auto) 0.1 Baso % (Auto) 0.4 Neut # (Auto) 7.9 H Lymph # (Auto) 0.9 L [place] # (Auto) 0.4 Eos # (Auto) 0.0 Baso # (Auto) 0.0 WBC Differential . Diff Scan Auto diff confirmed Differential Comment . Platelet Estimate Platelet Morphology PT 15.7 H INR 1.6 Sodium 134 L Potassium 4.0 Chloride 99 Carbon Dioxide 30.7 Anion Gap 4 L BUN 11 Creatinine 0.68 Estimated GFR Greater than 89 Random Glucose 104 Lactic Acid Calcium 9.2 Total Bilirubin Direct Bilirubin Indirect Bilirubin AST ALT Alkaline Phosphatase Ammonia Total Creatine Kinase Troponin I Less than 0.02 L Total Protein Albumin Lipase Urine Color Urine Clarity Urine pH Ur Specific Baker Urine Protein Urine Glucose (UA) Urine Ketones Urine Occult Blood Urine Nitrate Urine Bilirubin Urine Urobilinogen Ur Leukocyte Esterase Urine WBC Micro UA Comment Ur Microscopic Review Urine Culture Comments Serum Alcohol Hepatitis A IgM Ab Hep Bs Antigen Hep B Core IgM Ab Hep C IgG Ab 07/08/18 07/08/18 07/08/18 17:00 17:00 17:00 WBC RBC Hgb Hct MCV MCH MCHC RDW Plt Count MPV Prelim Diff (Auto) Neut % (Auto) Lymph % (Auto) [place] % (Auto) Eos % (Auto) Baso % (Auto) Neut # (Auto) Lymph # (Auto) [place] # (Auto) Eos # (Auto) Baso # (Auto) WBC Differential Diff Scan Differential Comment Platelet Estimate Platelet Morphology PT INR Sodium Potassium Chloride Carbon Dioxide Anion Gap BUN Creatinine Estimated GFR Random Glucose Lactic Acid Calcium Total Bilirubin 3.4 H Direct Bilirubin 1.8 H Indirect Bilirubin 1.6 H AST 276 H ALT 162 H Alkaline Phosphatase 106 Ammonia Total Creatine Kinase 61 Troponin I Total Protein 8.3 H Albumin 3.2 L Lipase 159 Urine Color Urine Clarity Urine pH Ur Specific Baker Urine Protein Urine Glucose (UA) Urine Ketones Urine Occult Blood Urine Nitrate Urine Bilirubin Urine Urobilinogen Ur Leukocyte Esterase Urine WBC Micro UA Comment Ur Microscopic Review Urine Culture Comments Serum Alcohol Less than 3 Hepatitis A IgM Ab Hep Bs Antigen Hep B Core IgM Ab Hep C IgG Ab 07/08/18 07/08/18 07/08/18 19:35 20:30 21:35 WBC RBC Hgb Hct MCV MCH MCHC RDW Plt Count MPV Prelim Diff (Auto) Neut % (Auto) Lymph % (Auto) [place] % (Auto) Eos % (Auto) Baso % (Auto) Neut # (Auto) Lymph # (Auto) [place] # (Auto) Eos # (Auto) Baso # (Auto) WBC Differential Diff Scan Differential Comment Platelet Estimate Platelet Morphology PT INR Sodium Potassium Chloride Carbon Dioxide Anion Gap BUN Creatinine Estimated GFR Random Glucose Lactic Acid 2.2 H 2.6 H Calcium Total Bilirubin Direct Bilirubin Indirect Bilirubin AST ALT Alkaline Phosphatase Ammonia Total Creatine Kinase Troponin I Total Protein Albumin Lipase Urine Color Whitney Urine Clarity Clear Urine pH 7.0 Ur Specific Baker Greater than 1.060 H Urine Protein Negative Urine Glucose (UA) Negative Urine Ketones Negative Urine Occult Blood Negative Urine Nitrate Negative Urine Bilirubin Negative Urine Urobilinogen 4 or greater Ur Leukocyte Esterase Negative Urine WBC 1 Micro UA Comment Culture not ind Ur Microscopic Review Not Reportable Urine Culture Comments Culture not ind Serum Alcohol Hepatitis A IgM Ab Hep Bs Antigen Hep B Core IgM Ab Hep C IgG Ab 07/08/18 07/09/18 07/09/18 21:45 02:32 02:45 WBC RBC Hgb Hct MCV MCH MCHC RDW Plt Count MPV Prelim Diff (Auto) Neut % (Auto) Lymph % (Auto) [place] % (Auto) Eos % (Auto) Baso % (Auto) Neut # (Auto) Lymph # (Auto) [place] # (Auto) Eos # (Auto) Baso # (Auto) WBC Differential Diff Scan Differential Comment Platelet Estimate Platelet Morphology PT INR Sodium Potassium Chloride Carbon Dioxide Anion Gap BUN Creatinine Estimated GFR Random Glucose Lactic Acid 3.5 H Calcium Total Bilirubin Direct Bilirubin Indirect Bilirubin AST ALT Alkaline Phosphatase Ammonia 19 Total Creatine Kinase Troponin I Total Protein Albumin Lipase Urine Color Urine Clarity Urine pH Ur Specific Baker Urine Protein Urine Glucose (UA) Urine Ketones Urine Occult Blood Urine Nitrate Urine Bilirubin Urine Urobilinogen Ur Leukocyte Esterase Urine WBC Micro UA Comment Ur Microscopic Review Urine Culture Comments Serum Alcohol Hepatitis A IgM Ab Nonreactive Hep Bs Antigen Nonreactive Hep B Core IgM Ab Nonreactive Hep C IgG Ab Nonreactive 07/09/18 07/09/18 07/09/18 02:45 02:45 05:45 WBC 11.7 H RBC 4.23 L Hgb 14.1 Hct 41.2 MCV 97.5 MCH 33.4 MCHC 34.3 RDW 12.4 Plt Count 52 L MPV 11.3 H Prelim Diff (Auto) Slide review pending Neut % (Auto) 84.9 H Lymph % (Auto) 8.9 L [place] % (Auto) 5.6 Eos % (Auto) 0.1 Baso % (Auto) 0.5 Neut # (Auto) 10.0 H Lymph # (Auto) 1.0 [place] # (Auto) 0.7 Eos # (Auto) 0.0 Baso # (Auto) 0.1 WBC Differential . Diff Scan Auto diff confirmed Differential Comment . Platelet Estimate Low L Platelet Morphology Enlarged H PT INR Sodium 136 Potassium 4.7 Chloride 101 Carbon Dioxide 25.5 Anion Gap 10 BUN 13 Creatinine 0.87 Estimated GFR 89 Random Glucose 82 Lactic Acid 3.7 H Calcium 8.4 L D Total Bilirubin 4.4 H Direct Bilirubin Indirect Bilirubin AST 2757 H ALT 1098 H Alkaline Phosphatase 117 Ammonia Total Creatine Kinase 99 Troponin I Less than 0.02 L Total Protein 7.8 Albumin 3.0 L Lipase Urine Color Urine Clarity Urine pH Ur Specific Baker Urine Protein Urine Glucose (UA) Urine Ketones Urine Occult Blood Urine Nitrate Urine Bilirubin Urine Urobilinogen Ur Leukocyte Esterase Urine WBC Micro UA Comment Ur Microscopic Review Urine Culture Comments Serum Alcohol Hepatitis A IgM Ab Hep Bs Antigen Hep B Core IgM Ab Hep C IgG Ab 07/09/18 07:40 WBC RBC Hgb Hct MCV MCH MCHC RDW Plt Count MPV Prelim Diff (Auto) Neut % (Auto) Lymph % (Auto) [place] % (Auto) Eos % (Auto) Baso % (Auto) Neut # (Auto) Lymph # (Auto) [place] # (Auto) Eos # (Auto) Baso # (Auto) WBC Differential Diff Scan Differential Comment Platelet Estimate Platelet Morphology PT INR Sodium Potassium Chloride Carbon Dioxide Anion Gap BUN Creatinine Estimated GFR Random Glucose Lactic Acid Calcium Total Bilirubin Direct Bilirubin Indirect Bilirubin AST ALT Alkaline Phosphatase Ammonia Total Creatine Kinase 116 Troponin I 0.06 H Total Protein Albumin Lipase Urine Color Urine Clarity Urine pH Ur Specific Baker Urine Protein Urine Glucose (UA) Urine Ketones Urine Occult Blood Urine Nitrate Urine Bilirubin Urine Urobilinogen Ur Leukocyte Esterase Urine WBC Micro UA Comment Ur Microscopic Review Urine Culture Comments Serum Alcohol Hepatitis A IgM Ab Hep Bs Antigen Hep B Core IgM Ab Hep C IgG Ab - Imaging Impressions Head CT 07/08/18 17:06 CONCLUSION: 1. No acute intracranial abnormality. 2. Mild Atrophy. . Chest X-Ray 07/08/18 17:42 CONCLUSION: No evidence of acute cardiopulmonary disease. Elbow X-Ray 07/08/18 18:01 CONCLUSION: 1. Small, mildly displaced olecranon avulsion fracture fragments of the triceps insertion with associated soft tissue swelling. 2. Joint effusion. No perceptible intra-articular fracture. No subluxation. Abdomen/Pelvis CT 07/08/18 18:02 CONCLUSION: 1. Severe fatty infiltration of the liver. 2. Apparent pericholecystic fluid. Also fairly robust enhancement of the gallbladder mucosa. Please correlate clinically for any evidence of cholecystitis. No stones or ductal dilatation demonstrated. Gallbladder Ultrasound 07/08/18 18:53 CONCLUSION: 1. Small, nonspecific pericholecystic fluid without stones, wall thickening or sonographic Lundy's sign. The fluid may be on the basis of hepatocellular disease. The ultrasound does not support acute cholecystitis. 2. Fatty infiltrated and mildly enlarged liver. Carotid Doppler Study 07/09/18 00:00 CONCLUSION: 1. Right Internal Carotid Artery: Findings indicate >70% stenosis, but less than near occlusion. 2. Left Internal Carotid Artery: Findings indicate <50% stenosis. Chest X-Ray 07/09/18 00:39 CONCLUSION: Negative examination. Assessment and Plan (1) Liver failure Status: Acute Code(s): K72.90 - Hepatic failure, unspecified without coma (2) Hyperbilirubinemia Status: Acute Code(s): E80.6 - Other disorders of bilirubin metabolism - Plan Patient is a 63-year-old male with past medical history significant for excessive alcohol abuse. Patient presented to the emergency room at [facility] with complaint of nausea and vomiting times 1 day. Patient also endorses right upper quadrant pain that radiates to mid upper abdomen. He describes same as cramping states it is constant without any alleviating or aggravating factors. Upon admission, WBC 11.7 hemoglobin 14.1 hematocrit 41 INR 1.6 total bilirubin 4.4 AST 2757 ALT 1098 alk phos [address] shows fatty liver with questionable cholecystitis. Patient denies any high risk behaviors. He denies IV drug use, tattoos or any high risk sexual behaviors. Patient states he smokes 1 pack/day and drinks a sixpack of beer daily. He denies ever having had a EGD or colonoscopy in the past. He denies any bleeding. Denies any change in bowel habits. States his stools are brown in color with no noted bleeding. Patient does endorse his urine has become darker tea colored over the last 2 days. Our service has been consulted to evaluate patient for liver failure with hyperbilirubinemia. Hyperbilirubinemia Liver failure Patient endorses 1 day history of nausea and vomiting with right upper quadrant abdominal cramping. WBC 11.7 hematocrit 41 hemoglobin 14.1 total bilirubin 4.4 AST 2757 ALT 1098 alk phos 117 ammonia 19 07/08/2018 CT abdomen and pelvis reveal the following-- 1. Severe fatty infiltration of the liver. 2. Apparent pericholecystic fluid. Also fairly robust enhancement of the gallbladder mucosa. Please correlate clinically for any evidence of cholecystitis. No stones or ductal dilatation demonstrated. -Patient will require cholecystectomy if HIDA scan positive for acute cholecystitis Plan N.p.o. Hepatitis panel Urine drug screen Liver workup Stat HIDA scan Ammonia level Lipid panel Avoid hepatotoxins Monitor for bleeding Monitor labs General surgery consult for cholecystectomy if HIDA scan positive for acute cholecystitis Supportive care Further recommendations to follow This patient has been seen by myself and Dr. Medrano and this note is written on his behalf - Attending Attestation Dr. Medrano
--- NOTE | 2018-07-09 14:49 | ECHRPT ---
Indication: SYNCOPE CONCLUSIONS Normal left ventricular size. Wall thickness is normal. The left ventricular systolic function is normal with an estimated ejection fraction in the range of 55-60%. Trace mitral valve regurgitation. The estimated pulmonary arterial pressure is 43 mmHg. There is mild tricuspid valve regurgitation. BP: / HR: Rhythm: MEASUREMENTS (Male / Female) Normal Values Technical Quality:Very technically difficult study 2D ECHO LV Diastolic Diameter PLAX 4.1 cm 4.2 - 5.9 / 3.9 - 5.3 cm LV Systolic Diameter PLAX 2.8 cm IVS Diastolic Thickness 0.7 cm 0.6 - 1.0 / 0.6 - 0.9 cm LVPW Diastolic Thickness 0.7 cm 0.6 - 1.0 / 0.6 - 0.9 cm LV Relative Wall Thickness 0.3 RV Internal Dim ED PLAX 2.9 cm LVOT Diameter 2.1 cm Aortic Root Diameter 2.5 cm LA Systolic Diameter LX 2.9 cm 3.0 - 4.0 / 2.7 - 3.8 cm M-MODE Aortic Root Diameter MM 3.3 cm LA Systolic Diameter MM 3.3 cm LA Ao Ratio MM 1.0 AV Cusp Separation MM 2.1 cm DOPPLER AV Peak Velocity 124.0 cm/s AV Peak Gradient 6.2 mmHg LVOT Peak Velocity 107.0 cm/s LVOT Peak Gradient 4.6 mmHg AV Area Cont Eq pk 3.0 cm Mitral E Point Velocity 71.1 cm/s Mitral A Point Velocity 66.1 cm/s Mitral E to A Ratio 1.1 LV E' Lateral Velocity 4.1 cm/s Mitral E to LV E' Lateral Ratio 17.3 LV E' Septal Velocity 6.5 cm/s Mitral E to LV E' Septal Ratio 10.9 TR Peak Velocity 285.0 cm/s TR Peak Gradient 32.5 mmHg Right Atrial Pressure 10.0 mmHg Pulmonary Artery Systolic Pressu 42.5 mmHg Right Ventricular Systolic Press 42.5 mmHg PV Peak Velocity 61.2 cm/s PV Peak Gradient 1.5 mmHg FINDINGS LEFT VENTRICLE Normal left ventricular size. Wall thickness is normal. The left ventricular systolic function is normal with an estimated ejection fraction in the range of 55-60%. RIGHT VENTRICLE Normal right ventricular size and systolic function. LEFT ATRIUM The left atrial size is normal. RIGHT ATRIUM The right atrial size is normal. ATRIAL SEPTUM Normal atrial septal thickness without atrial level shunting by limited color doppler interrogation. AORTA The aortic root and proximal ascending aorta are normal in size on limited imaging. MITRAL VALVE Trace mitral valve regurgitation. AORTIC VALVE Trileaflet aortic valve. No aortic valve stenosis or regurgitation. TRICUSPID VALVE The estimated pulmonary arterial pressure is 43 mmHg. There is mild tricuspid valve regurgitation. PULMONARY VALVE No pulmonary valve regurgitation or stenosis. VESSELS The inferior vena cava is normal in size. PERICARDIUM No pericardial effusion. Elaine Gonzalez MD, FACC (Electronically Signed) Final Date:09 July 2018 14:48
--- NOTE | 2018-07-09 16:56 | ECG ---
Date Performed: 07/09/2018 Time Performed: 07:08:37 PTAGE: 63 years EKG: SINUS TACHYCARDIA NONSPECIFIC ST & T-WAVE ABNORMALITY ABNORMAL RHYTHM ECG PREVIOUS TRACING : 07/08/2018 19.30 Since the previous tracing, no significant change noted DOCTOR: Elaine Gonzalez Interpretating Date/Time 07/09/2018 16:54:19
--- NOTE | 2018-07-09 17:02 | P.CONCA ---
History of Present Illness Service: Cardiology Consult date: 07/09/18 Requesting Physician: Aristeo Christensen Reason for Consult: Chest Pain and elevated TPN Primary Care Provider: No Primary Care Physician History of Present Illness: This is a 63-year-old male with a past medical history of alcohol abuse. He denies any other medical history. He states, that yesterday he started having nausea, vomiting and left arm pain, which began in the morning. He came to the [facility] department for further evaluation. He states that about 1 week ago, he fell and injured his left arm but did not seek treatment. Per the ER records, he had a near syncopal episode along with chest pain, he does not recall this event. He is a poor historian, some information is obtained through chart review. Currently, patient complains of mild chest discomfort without radiation. He denies any palpitations, dizziness, edema or SOB. Review of Systems All other systems reviewed negative except as stated in HPI PMFSH - History History Provided By: Patient - Medical History Medical History: Medical History (Last Reviewed 07/09/18 @ 16:11 by Gemma Ruffin PT) Patient denies medical problems - Surgical History Surgical History: Surgical History (Last Reviewed 07/09/18 @ 16:11 by Gemma Ruffin PT) No history of previous surgery - Family History Family History: Family History (Last Reviewed 07/09/18 @ 16:11 by Gemma Ruffin PT) Other Coronary artery disease Diabetes mellitus - Tobacco History Second Hand Smoke Exposure: Yes Tobacco Use In Past 30 Days: Yes Smoking Status: Heavy tobacco smoker Tobacco Type: Cigarettes - Alcohol History How Often Do You Have a Drink Containing Alcohol: 4 or more times a week - Substance Use History Substance History: No History of Abuse - Travel History Recent Travel in the [place] Within the Last 8 Weeks: No Recent Travel Out of the Country Within the Last 8 Weeks: No - Immunization History Tetanus Immunization: >5 Years Hx Influenza Vaccine This Season: No Medications and Allergies Allergies Allergy/AdvReac Type Severity Reaction Status Date / Time No Known Allergies Allergy Verified 07/08/18 12:30 Home Medications Medication Instructions Recorded Confirmed Type No Known Home Medications 07/08/18 07/08/18 History Active Medications: Active Medications Acetaminophen (Tylenol) 650 mg PO Q4H PRN PRN Reason: headache/fever/pain1-4 Hydrocodone Bitart/Acetaminophen ([place] 5/325) 1 tab PO Q6H PRN PRN Reason: pain scale 5 to 10 Last Admin: 07/09/18 08:09 Dose: 1 tab Al Hydroxide/Mg Hydroxide (Milk Of Magnesia Liq) 30 ml PO Q12H PRN PRN Reason: Mild Constipation Bisacodyl (Dulcolax Supp) 10 mg RECTAL DAILY PRN PRN Reason: SEVERE CONSITIPATION Clonidine HCl (Catapres) 0.1 mg PO Q6H PRN PRN Reason: For SBP >/= 180, DBP >/= 100 Flumazenil (Romazecon Inj) 0.2 mg IV.PUSH Q1M PRN PRN Reason: OVERSEDATION Folic Acid (Folic Acid) 1 mg PO DAILY [facility] Stop: 07/14/18 08:59 Last Admin: 07/09/18 08:09 Dose: 1 mg Haloperidol Lactate (Haldol Inj) 1 mg IV.PUSH Q15M PRN PRN Reason: for severe agitation Sodium Chloride (Ns Inj) 1,000 mls @ 150 mls/hr IV.CONT .Q6H40M [facility] Last Admin: 07/09/18 11:55 Dose: 100 mls/hr Piperacillin/Tazobactam/Dextrose (Zosyn 3.375 Gm Premix) 50 mls @ 100 mls/hr IV.SIG Q6H [facility] Last Infusion: 07/09/18 11:43 Dose: Infused Vancomycin HCl 1,250 mg/ (Sodium Chloride) 262.5 mls @ 250 mls/hr IV.SIG Q12H [facility] Last Infusion: 07/09/18 13:39 Dose: Infused Lactulose (Lactulose Liq) 30 ml PO DAILY PRN PRN Reason: SEVERE CONSITIPATION Lorazepam (Ativan) 1 mg PO Q4H PRN PRN Reason: for CIWA 8-10 Lorazepam (Ativan) 2 mg PO Q2H PRN PRN Reason: for CIWA 11-14 Lorazepam (Ativan Inj) 2 mg IV.PUSH Q2H PRN PRN Reason: for CIWA 11-14 Lorazepam (Ativan Inj) 2 mg IV.PUSH Q1H PRN PRN Reason: for CIWA 15-20 Lorazepam (Ativan Inj) 2 mg IV.PUSH Q15M PRN PRN Reason: for CIWA > 20 Lorazepam (Ativan Inj) 1 mg IV.PUSH Q4H PRN PRN Reason: for CIWA 8-10 Miscellaneous Information ([facility] Ordered Lab Info) 0 each OTHER ONCE ONE Stop: 07/11/18 00:46 Morphine Sulfate (Morphine Inj) 2 mg IV.PUSH Q4H PRN PRN Reason: BREAKTHROUGH PAIN Multivitamins/Minerals (Theragran-M) 1 tab PO DAILY [facility] Stop: 07/14/18 08:59 Last Admin: 07/09/18 08:09 Dose: 1 tab Naloxone HCl (Narcan Inj) 0.4 mg IV.PUSH UNSCH PRN PRN Reason: SEE LABEL COMMENTS Ondansetron HCl (Zofran Inj) 4 mg IV.PUSH Q6H PRN PRN Reason: NAUSEA OR VOMITING Pantoprazole Sodium (Protonix Inj) 40 mg IV.PUSH DAILY [facility] Last Admin: 07/09/18 14:26 Dose: 40 mg Pharmacy Profile Note (Vancomycin Consult Pharmacy) 1 each OTHER UNSCH PRN PRN Reason: Pharmacy to dose Senna/Docusate Sodium (Lizzeth-Colace) 1 tab PO BID [facility] Last Admin: 07/09/18 08:09 Dose: 1 tab Sennosides (Senokot) 17.2 mg PO Q12H PRN PRN Reason: Moderate Constipation Sodium Chloride (Ns Flush) 2 ml IV.FLUSH PRN PRN PRN Reason: FLUSH AFTER USING IV ACCESS Sodium Chloride (Ns Flush) 2 ml IV.FLUSH BID [facility] Last Admin: 07/09/18 08:14 Dose: Not Given Thiamine HCl (Vitamin B1) 100 mg PO DAILY [facility] Last Admin: 07/09/18 08:09 Dose: 100 mg Exam Vital signs: Vital Signs 07/08/18 17:04 07/09/18 01:05 07/09/18 04:05 Temperature 98.8 F 97.5 F L Pulse Rate 89 122 H 114 H Respiratory Rate 17 18 18 Blood Pressure 137/88 105/63 101/55 L Pulse Oximetry 100 98 97 07/09/18 08:00 07/09/18 12:00 Temperature 97.6 F 97.9 F Pulse Rate 110 H 103 H Respiratory Rate 17 17 Blood Pressure 98/53 L 103/56 L Pulse Oximetry 97 96 Intake & Output 07/08/18 07/09/18 07/09/18 18:59 06:59 18:59 Intake Total 1700 / 1700 1570.5 / 1570.5 Output Total 90 / 90 Balance 1610 / 1610 1570.5 / 1570.5 Weight 61.235 kg 61.2 kg Intake: IV 1100 / 1100 1570.5 / 1570.5 NS Inj 1,000 ML @ 100 mls/hr IV 1000 / 1000 .CONT .Q10H [facility] Rx#:[id number] Zosyn 3.375 GM Premix 50 ML @ 100 / 100 50 / 50 100 mls/hr IV.SIG Q6H [facility] Rx#: [id number] NS Inj 1,000 ML @ 1000 mls/hr 1000 / 1000 IV.SIG BOLUS [facility] Rx#:[id number] Vancomycin Inj 1,250 MG In NS 520.5 / 520.5 Inj 250 ML @ 250 mls/hr IV.SIG Q12H [facility] Rx#:[id number] Oral 600 / 600 Output: Urine 90 / 90 Other: # Bowel Movements 0 Weight On Admission 61.235 kg - Constitutional no acute distress - Routine HEENT Exam Head: Present: normocephalic Eye: Present: EOMI ENT: Present: mucous membranes moist Comments: left pupil is 6, this is chronic. - Routine Neck Exam Present: supple - Routine Respiratory Exam Present: CTA bilaterally - Routine Cardiovascular Exam Present: S1, S2. Absent: murmur, gallop, rubs - Routine Abdominal Exam Present: normoactive bowel sounds - Routine Extremities Exam Present: full ROM, pulses intact, normal capillary refill. Absent: cyanosis, clubbing - Routine Skin Exam Present: intact - Routine Neurological Exam Present: oriented X3 Results 07/09/18 02:45 07/09/18 02:45 Cardiac Enzymes 07/08/18 07/08/18 07/09/18 Range/Units 17:00 17:00 02:45 AST 276 H 2757 H (15-37) U/L Troponin I Less than 0.02 L Less than 0.02 L (0.02-0.05) ng/mL 07/09/18 07/09/18 Range/Units 07:40 13:40 AST (15-37) U/L Troponin I 0.06 H 0.51 H (0.02-0.05) ng/mL Coagulation 07/08/18 Range/Units 17:00 PT 15.7 H (9.8-11.6) sec CBC 07/08/18 07/09/18 Range/Units 17:00 02:45 WBC 9.2 11.7 H (4.0-11.0) th/mm3 RBC 4.47 L 4.23 L (4.50-5.90) mil/mm3 Hgb 15.3 14.1 (13.0-17.0) gm/dL Hct 44.0 41.2 (39.0-51.0) % Plt Count 53 L 52 L (150-450) th/mm3 Neut # (Auto) 7.9 H 10.0 H (1.8-7.7) th/mm3 Lymph # (Auto) 0.9 L 1.0 (1.0-4.8) th/mm3 [place] # (Auto) 0.4 0.7 (0.0-0.9) th/mm3 Eos # (Auto) 0.0 0.0 (0.0-0.4) th/mm3 Baso # (Auto) 0.0 0.1 (0.0-0.2) th/mm3 Comprehensive Metabolic Panel 07/08/18 07/08/18 07/09/18 Range/Units 17:00 17:00 02:45 Sodium 134 L 136 (136-145) meq/L Potassium 4.0 4.7 (3.5-5.1) meq/L Chloride 99 101 (98-107) meq/L Carbon Dioxide 30.7 25.5 (21.0-32.0) meq/L BUN 11 13 (7-18) mg/dL Creatinine 0.68 0.87 (0.60-1.30) mg/dL Calcium 9.2 8.4 L D (8.5-10.1) mg/dL Direct Bilirubin 1.8 H (0.0-0.2) mg/dL Indirect Bilirubin 1.6 H (0.0-0.8) mg/dL AST 276 H 2757 H (15-37) U/L ALT 162 H 1098 H (12-78) U/L Alkaline Phosphatase 106 117 (45-117) U/L Total Protein 8.3 H 7.8 (6.4-8.2) g/dL Albumin 3.2 L 3.0 L (3.4-5.0) g/dL Intake and Output 07/09/18 07/09/18 07/09/18 06:59 14:59 22:59 Intake Total 1650 / 1650 1570.5 / 1570.5 Output Total 90 / 90 Balance 1560 / 1560 1570.5 / 1570.5 Intake: IV 1050 / 1050 1570.5 / 1570.5 NS Inj 1,000 ML @ 100 mls/hr IV 1000 / 1000 .CONT .Q10H [facility] Rx#:[id number] Zosyn 3.375 GM Premix 50 ML @ 50 / 50 50 / 50 100 mls/hr IV.SIG Q6H [facility] Rx#: [id number] NS Inj 1,000 ML @ 1000 mls/hr 1000 / 1000 IV.SIG BOLUS [facility] Rx#:[id number] Vancomycin Inj 1,250 MG In NS 520.5 / 520.5 Inj 250 ML @ 250 mls/hr IV.SIG Q12H [facility] Rx#:[id number] Oral 600 / 600 Output: Urine 90 / 90 Other: # Bowel Movements 0 Weight 61.2 kg Weight On Admission 61.235 kg - Imaging and Cardiology Imaging: Impressions Head CT 07/08/18 17:06 CONCLUSION: 1. No acute intracranial abnormality. 2. Mild Atrophy. . Chest X-Ray 07/08/18 17:42 CONCLUSION: No evidence of acute cardiopulmonary disease. Elbow X-Ray 07/08/18 18:01 CONCLUSION: 1. Small, mildly displaced olecranon avulsion fracture fragments of the triceps insertion with associated soft tissue swelling. 2. Joint effusion. No perceptible intra-articular fracture. No subluxation. Abdomen/Pelvis CT 07/08/18 18:02 CONCLUSION: 1. Severe fatty infiltration of the liver. 2. Apparent pericholecystic fluid. Also fairly robust enhancement of the gallbladder mucosa. Please correlate clinically for any evidence of cholecystitis. No stones or ductal dilatation demonstrated. Gallbladder Ultrasound 07/08/18 18:53 CONCLUSION: 1. Small, nonspecific pericholecystic fluid without stones, wall thickening or sonographic Lundy's sign. The fluid may be on the basis of hepatocellular disease. The ultrasound does not support acute cholecystitis. 2. Fatty infiltrated and mildly enlarged liver. Carotid Doppler Study 07/09/18 00:00 CONCLUSION: 1. Right Internal Carotid Artery: Findings indicate >70% stenosis, but less than near occlusion. 2. Left Internal Carotid Artery: Findings indicate <50% stenosis. Chest X-Ray 07/09/18 00:39 CONCLUSION: Negative examination. Assessment and Plan - Assessment (1) Chest pain Code(s): R07.9 - Chest pain, unspecified Status: Acute (2) Elevated troponin level Code(s): R74.8 - Abnormal levels of other serum enzymes Status: Acute (3) Liver failure Code(s): K72.90 - Hepatic failure, unspecified without coma Status: Acute (4) Hyperbilirubinemia Code(s): E80.6 - Other disorders of bilirubin metabolism Status: Acute - Plan We will obtain a 2D echo to evaluate LV function. Recommend to continue serial enzymes and EKGs. Continue to monitor on telemetry. Patient has elevated liver enzymes, GI evaluation in progress. The patient was seen and evaluated by Dr. Gonzalez who participated in care, management and decision making. - Attending Attestation Patient seen and examined. I reviewed and agree with the evaluation and plan as presented. Troponin mildly evaluated. The patient has multiple medical problems. Continue monitoring on tele. Check echo to evaluate LV function. GI evaluation in progress.
--- NOTE | 2018-07-09 17:48 | NM ---
EXAM DATE: 07/09/2018 5:40 PM EST AGE/SEX: 63 years / Male INDICATIONS: Right upper quadrant pain with nausea and vomiting. CLINICAL DATA: This is the patient's initial encounter. Patient reports that signs and symptoms have been present for 1 day and indicates a pain score of 4/10. MEDICAL/SURGICAL HISTORY: None. None. COMPARISON: [facility] [place], CT ABDOMEN & PELVIS W CONTRAST, 07/08/2018. . DOSE: 4.1 mCi Tc-99m mebrofenin i.v. TECHNIQUE: Following the intravenous administration of radiotracer, dynamic sequential images were pe rformed with continuous acquisition. Time-activity curves were generated. FINDINGS: Hepatic Kinetics: There is prompt uptake of radiotracer in the liver. No focal defects are seen. T here is normal rate of washout from the hepatic parenchyma. Biliary Clearance: There is no activity in the intrahepatic ducts, common duct or small bowel. CONCLUSION: 1. No activity in intrahepatic ducts, common duct or small bowel. Considerations include include acu te obstruction of the common duct and diffuse hepatocellular disease. 2. CT scan shows no dilatation of the common duct or intrahepatic ducts. Diffuse hepatocellular dise ase is suspected. Electronically signed by: Delio Franco MD 07/09/2018 5:46 PM EST
[2018-07-09 18:47] LABS: Amphetamine Screen,Urine Neg (Neg); Barbiturate Screen,Urine Neg (Neg); Cannabinoid Screen,Urine Neg (Neg); Cocaine Screen,Urine Pos (Neg)
[2018-07-09 19:11] LABS: Opiate Screen,Urine Pos (Neg)
--- NOTE | 2018-07-09 19:12 | MB ---
cc: Jeff Ta MD DATE: 07/09/2018 CONSULTING PHYSICIAN: Jeff Ta MD, Vascular Surgery REASON FOR CONSULTATION: Right internal carotid artery stenosis, syncopal episode, possible TIA. HISTORY OF PRESENT ILLNESS: This 63-year-old male who has been previously here several times presents to the emergency department with left arm pain, and nausea and vomiting. He apparently fell about a week ago and it is unclear what happened there. This is a very poor historian. Drinks about two 6-packs a day of beer and I do not know what else. The question arises about his fall and the whole story and he is now being worked up. On ultrasound, he is found to have about 80% right internal carotid artery stenosis and vascular input is soft. PAST MEDICAL HISTORY: 1. Alcoholism. 2. Fatty liver infiltration. 3. Chronic cholecystitis with cholelithiasis, which was apparently diagnosed earlier this month. SURGICAL HISTORY: Patient denies. SOCIAL HISTORY: He drinks probably about a 6-pack or two a day and smokes 1-2 packs a day. PHYSICAL EXAMINATION: GENERAL: Reveals a 63-year-old male appearing much older than his actual age. HEENT: Normocephalic. No trauma to the head. Pupils equal, reactive. Extraocular muscles intact. Cranial nerves 2-12 appear to be intact. NECK: Bilateral carotid pulses and, actually, bilateral bruits which are faint. I cannot tell one from the other. CHEST: Bilateral breath sounds, decreased over both lungs hui, consistent with moderate degree of chronic obstructive pulmonary disease. HEART: Regular rate and rhythm. No masses on examination of the chest. ABDOMEN: Soft, active bowel sounds. No rebound, no guarding, no masses. Liver is not palpated on physical exam, neither is the spleen. The patient is not tender focally. No point or rebound tenderness; however, he is kind of diffusely tender over the epigastrium. Pelvis is normal. EXTREMITIES: Grossly within normal limits. Good proximal and distal pulses. No acute vascular deficit. BACK: Normal. NEUROLOGIC: The patient is fully intact. IMPRESSION AND RECOMMENDATION: After reviewing diagnostic and laboratory data and reviewing the patient's record from previous admissions, it is unclear what the patient's problem really is other than the arm pain; however, the fall is somewhat unusual and ultrasound was quite indicated. This shows about 80% left internal carotid artery stenosis, with quite elevated flow velocities. CTA of the carotid is ordered and if that is positive, then patient will obviously require a right carotid endarterectomy barring any other medical problems and obstacles. As far as the abdominal exam is concerned, the patient is diffusely tender because of this fatty liver infiltration and probably some degree of cirrhosis; however, a chronically inflamed gallbladder will probably be nonfunctioning, so there is no need for further workup of the same; the patient has much bigger problems to deal with, including the carotid stenosis, possible coronary issues. At this point, we should work up the patient neurologically see which way it goes. It should be noted this patient is a very ill and I believe his systemic vascular disease including coronary disease so these things take precedence I thank you much for the referral. I will continue to follow him. MD SELENA Jackson/enzo , 05:38 PM , 05:49 PM RICARDO
[2018-07-09 21:10] LABS: % Iron Saturation 56.7 % (20-50); Chol/HDL Ratio 4.62 Ratio; HDL Cholesterol 10.8 mg/dL (40.0-60.0)
[2018-07-09 21:25] LABS: Alpha Fetoprotein Tumor Marker 3.7 ng/mL (0.5-8.0)
[2018-07-09] MEDS ORDERED: Heparin 10,000 UNITS/10 ML Vial (for IV use) IV.PUSH STA (21:36)
[2018-07-09] MEDS ORDERED: Sodium Chlor 0.9% Inj 500 ML IV.SIG SCH (21:41)
[2018-07-09] MEDS: Morphine Inj 4 MG/ML Vial IV.PUSH PRN (21:59)
[2018-07-09 22:10] LABS: Hepatitis A IgM Antibody Nonreactive (Nonreactive); Hepatitits B Surface Antigen Nonreactive (Nonreactive)
[2018-07-09 23:14] LABS: Activated Partial Thrombo Time 37.7 sec (23.4-31.7); INR 3.6 Ratio; Prothrombin Time 36.5 sec (9.8-11.6)
[2018-07-10] MEDS ORDERED: Sod Chloride 0.9% Inj 1,000 ML IV.SIG SCH ×2 (00:15→05:00)
[2018-07-10] MEDS: Vancomycin Inj 1,250 MG in Sodium Chlor 0.9% Inj 250 ML IV.SIG SCH ×2 (00:28→12:17)
[2018-07-10] MEDS ORDERED: Heparin Drip 25,000 UNIT/250 ML BAG IV.CONT PRN (00:39)
--- NOTE | 2018-07-10 01:20 | CT ---
EXAM DATE: 07/10/2018 1:08 AM EST AGE/SEX: 63 years / Male INDICATIONS: Abdominal pain, elevated lactic acid. CLINICAL DATA: This is the patient's initial encounter. Patient reports that signs and symptoms have been present for 1 day and indicates a pain score of 8/10. MEDICAL/SURGICAL HISTORY: None. None. RADIATION DOSE: 5.20 CTDI (mGy) COMPARISON: [facility] [place], CT ABDOMEN & PELVIS W CONTRAST, 07/08/2018.. . TECHNIQUE: Volumetric scanning was performed using a multi-row detector CT scanner during bolus infu janusz of 60 ml Omnipaque 350 (iohexol) nonionic water-soluble contrast as a single exam dose. The d shelton was post processed with a variety of visualization algorithms including full volume maximum inten sity projection, multi-planar sliding thin slab reformation, curved planar reformation, and surface r endering techniques. Using automated exposure control and adjustment of the mA and/or kV according t o patient size, radiation dose was kept as low as reasonably achievable to obtain optimal diagnostic quality images. DICOM format image data is available electronically for review and comparison. FINDINGS: ABDOMINAL AORTA: There is a 20-30% stenosis involving the origin of the celiac secondary to partially calcified atheromatous plaque. The SMA and MIC are patent. Single renal artery supplies the left kid lydia. This is patent. 2 renal arteries which are equal in size supply the right kidney. There is a 40% stenosis involving the upper pole branch. The more inferior branch is patent. Scattered areas of colleen cified plaque involving a normal caliber abdominal aorta and inflow vessels. OTHER STRUCTURES: Diffuse hepatic steatosis. The gallbladder is decompressed on the current study and not well evaluated. The remaining abdominal visceral structures are unremarkable. No wall thickening of the bowel loops. No free air or free fluid. The appendix is normal by CT criteria. Coronary arter y atherosclerotic calcifications are noted. Pronounced emphysematous changes within the visualized mimi ng bases. CONCLUSION: 1. 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 The SMA and MIC are patent. 2. Hepatic steatosis. 3. Emphysematous changes. Electronically signed by: Ry Mae MD 07/10/2018 1:19 AM EST
--- NOTE | 2018-07-10 01:25 | CT ---
EXAM DATE: 07/10/2018 1:00 AM EST AGE/SEX: 63 years / Male INDICATIONS: Syncope, patient had abnormal ultrasound, right carotid stenosis. CLINICAL DATA: This is the patient's initial encounter. Patient reports that signs and symptoms have been present for 1 day and indicates a pain score of 0/10. MEDICAL/SURGICAL HISTORY: None. None. RADIATION DOSE: 12.92 CTDI (mGy) COMPARISON: [facility] [place], [place] CAROTID DOPPLER BI, 07/09/2018.. . TECHNIQUE: Volumetric scanning was performed using a multirow detector CT scanner during bolus infus ion of 40 ml Omnipaque 350 (iohexol) nonionic water-soluble contrast as a single exam dose. The da ta was postprocessed with a variety of visualization algorithms including full-volume maximum intensi ty projection, multiplanar sliding thin-slab reformation, curved-planar reformation, and surface-rend ering techniques. Using automated exposure control and adjustment of the mA and/or kV according to p atient size, radiation dose was kept as low as reasonably achievable to obtain optimal diagnostic ja lity images. DICOM format image data is available electronically for review and comparison. FINDINGS: Aortic Arch: There is a three-vessel origin of the great vessels from the aorta. No evidence of ost ial narrowing Right Carotid: Calcified and noncalcified atheromatous plaque is seen throughout the proximal ICA. A pproximately 1.5 cm cephalad to the origin is the most significant stenosis that measures 80% by NASC ET criteria. No ulceration. The more cephalad portion of the extracranial ICA, ECA, and CCA are paten t. Left Carotid: The common carotid artery is intact. The carotid bulb has a normal configuration with out ulceration or narrowing. The internal carotid artery lumen is smooth without stenosis. The exte rnal carotid artery is intact. Vertebrals: The vertebral arteries have a symmetric diameter. No stenotic lesions are seen. Emphysematous changes within the visualized lung apices. Percent stenosis is calculated using the diameter of the stenotic region over the diameter of the nor mal distal internal carotid artery. CONCLUSION: 1. 80% stenosis of the proximal right ICA. Left carotid and bilateral vertebral arteries are patent. 2. Emphysematous changes. Electronically signed by: Ry Mae MD 07/10/2018 1:23 AM EST
[2018-07-10] MEDS: Morphine Inj 4 MG/ML Vial IV.PUSH PRN ×3 (01:51→23:56)
[2018-07-10] MEDS ORDERED: Heparin 10,000 UNITS/10 ML Vial (for IV use) IV.PUSH PRN ×2 (03:38)
[2018-07-10] MEDS: Sod Chloride 0.9% Inj 1,000 ML IV.CONT SCH (03:58)
[2018-07-10] MEDS: Piperacil/Tazo 3.375 GM Premix 50 ML IV.SIG SCH ×4 (03:58→21:17)
[2018-07-10 04:39] LABS: Baso % (Auto) 0.1 % (0.0-2.0); Eos % (Auto) 0.1 % (0.0-4.0); Hematocrit 36.9 % (39.0-51.0); Hemoglobin 12.2 gm/dL (13.0-17.0); Lymph # (Auto) 0.3 th/mm3 (1.0-4.8); Lymph % (Auto) 3.4 % (9.0-44.0); Mean Corpuscular HGB Conc 33.1 % (32.0-36.0); Mean Corpuscular Hemoglobin 33.5 pg (27.0-34.0); Mean Corpuscular Volume 101.2 fL (80.0-100.0); Mean Platelet Volume 11.1 fL (7.0-11.0); Mono # (Auto) 0.6 th/mm3 (0.0-0.9); Mono % (Auto) 6.5 % (0.0-8.0); Neut # (Auto) 8.6 th/mm3 (1.8-7.7); Neut % (Auto) 89.9 % (16.0-70.0); Platelet Count 55 th/mm3 (150-450); Red Blood Count 3.65 mil/mm3 (4.50-5.90); Red Cell Distribution Width 13.2 % (11.6-17.2); White Blood Count 9.6 th/mm3 (4.0-11.0)
[2018-07-10 05:10] LABS: Albumin 2.7 g/dL (3.4-5.0); Anion Gap 15 meq/L (5-15); Blood Urea Nitrogen 18 mg/dL (7-18); Calcium 8.1 mg/dL (8.5-10.1); Carbon Dioxide 16.7 meq/L (21.0-32.0); Chloride 105 meq/L (98-107); Glomerular Filtration Rate 59 mL/min (>89); Glucose,Random 70 mg/dL (74-106); Potassium 4.6 meq/L (3.5-5.1); Sodium 137 meq/L (136-145)
[2018-07-10 05:28] LABS: Alanine Aminotransferase 2815 U/L (12-78); Alkaline Phosphatase 126 U/L (45-117); Aspartate Aminotransferase 6909 U/L (15-37); Total Protein 6.6 g/dL (6.4-8.2)
[2018-07-10] MEDS ORDERED: Sodium Bicarbonate 8.4% Inj 50 MEQ/50 ML Syringe IV.PUSH ONE (05:43)
--- NOTE | 2018-07-10 06:19 | P.CONCC ---
History of Present Illness Service: Critical care medicine Consult date: 07/10/18 Requesting Physician: UNKNOWN Reason for Consult: Sepsis Primary Care Provider: No Primary Care Physician Chief Complaint: Left elbow pain History of Present Illness: 63-year-old male. Admission 07/09/2018. Date of consultation 2017. Past medical history includes ongoing alcoholism. Urine tox screen on admission positive for cocaine and opiates. Patient originally fell from a single bed about 1 week ago. He did not seek treatment for his swollen left elbow. He is initially diagnosed here with a left olecranon fracture/ nondisplaced. Seen by Dr. Blanco recommended splint/immobilization. Follow-up outpatient with x-rays in 2 weeks. He was treated with alcoholism for on the [facility] protocol receiving multivitamin, folate and thiamine. During admission, patient had multiple complaints including right upper quadrant pain. Patient has CT his abdomen/pelvis revealed hepatic steatosis, pericholecystic fluid with no ductal dilatation. Ultrasound showed pericholecystic 6 with negative Lundy sign. Nuclear medicine scan revealed no activity in the intrahepatic ducts compatible ducts or small bowel. Likely slightly disease. Patient was evaluated by gastroenterology for this issue. BOBBY, AMA, ASMA, SSA a and B, Ronquillo, scleroderma and double-stranded DNA all pending. Negative hepatitis panel. Noted patient had angiogram of the abdomen which revealed no focal stenosis of the SMA, MIC or celiac. Patient elevated troponin. Was seen by Dr. chaudhry. Echocardiogram revealed EF 55-6%. PA P 43 mmHg. Trace to mild TR. Possibly demand ischemia due to sepsis. Was on aspirin. Did receive/placed on heparin drip. This is currently on hold due to coagulopathic state. Patient has gram-positive cocci in blood. Infectious disease has been counseled. Currently on vancomycin for comfort.) I repeated blood cultures, sputum and urine culture today. Patient is 80% right carotid artery stenosis. Followed by Dr. Martini Patient was transferred to ICU with persistent hypotension increasing lactic acidosis in the setting of acute liver injury. Worsening renal function. Patient has received 2.5 L normal saline the present time his blood pressure appears stable. Patient is currently denying abdominal pain. Review of Systems Constitutional: Reports body ache(s), Reports chills, Reports weakness, Denies anorexia, Denies headache(s) Eyes: Denies blind spots, Denies blurry vision Ears, Nose, Mouth, and Throat: Reports bad breath, Reports poor balance, Denies abnormal hearing, Denies tongue swelling Cardiovascular: Denies chest pain, Denies chest pain at rest, Denies shortness of breath, Denies shortness of breath with activity, Denies shortness of breath when lying down Respiratory: Denies chest congestion, Denies cough Gastrointestinal: Reports abdominal pain, Denies black, tarry stools, Denies coffee ground vomit, Denies constipation, Denies difficulty swallowing, Denies loose stools, Denies nausea, Denies vomiting Genitourinary: Denies urinary frequency, Denies urinary hesitancy Musculoskeletal: Denies abnormal walking, Denies back pain, Denies stiffness Skin/Breast: Denies acne, Denies bleeding lesions, Denies other Neurologic: Denies abnormal hearing, Denies abnormal movements, Denies abnormal speech Psychiatric: Denies anxiety, Denies confusion, Denies depression Endocrine: Denies cold intolerance, Denies excessive sweating Hematologic/Lymphatic: Denies easy bleeding Allergic/Immunologic: Denies GI upset with certain foods PMFSH - History History Provided By: Patient - Medical History Medical History: Medical History (Last Updated 07/10/18 @ 06:22 by Tito Cross MD) Alcohol abuse Tobacco abuse - Surgical History Surgical History: Surgical History (Last Reviewed 07/10/18 @ 06:21 by Tito Cross MD) No history of previous surgery - Family History Family History: Family History (Last Reviewed 07/10/18 @ 06:21 by Tito Cross MD) Other Coronary artery disease Diabetes mellitus - Tobacco History Second Hand Smoke Exposure: Yes Tobacco Use In Past 30 Days: Yes Smoking Status: Heavy tobacco smoker Tobacco Type: Cigarettes - Alcohol History How Often Do You Have a Drink Containing Alcohol: 4 or more times a week - Substance Use History Substance History: No History of Abuse - Travel History Recent Travel in the [place] Within the Last 8 Weeks: No Recent Travel Out of the Country Within the Last 8 Weeks: No - Immunization History Tetanus Immunization: >5 Years Hx Influenza Vaccine This Season: No Medications and Allergies Active Medications: Active Medications Al Hydroxide/Mg Hydroxide (Milk Of Magnesia Liq) 30 ml PO Q12H PRN PRN Reason: Mild Constipation Flumazenil (Romazecon Inj) 0.2 mg IV.PUSH Q1M PRN PRN Reason: OVERSEDATION Haloperidol Lactate (Haldol Inj) 1 mg IV.PUSH Q15M PRN PRN Reason: for severe agitation Piperacillin/Tazobactam/Dextrose (Zosyn 3.375 Gm Premix) 50 mls @ 100 mls/hr IV.SIG Q6H [place] Last Infusion: 07/10/18 04:34 Dose: Infused Vancomycin HCl 1,250 mg/ (Sodium Chloride) 262.5 mls @ 250 mls/hr IV.SIG Q12H [place] Last Infusion: 07/10/18 01:31 Dose: Infused Multivitamins 10 ml/ Thiamine HCl 100 mg/ Folic Acid 1 mg/Sodium Chloride 511.2 mls @ 125 mls/hr IV.SIG Q24H [place] Stop: 07/12/18 12:06 Phenylephrine HCl 160 mg/ (Sodium Chloride) 500 mls @ 7.5 mls/hr IV.CONT TITRATE PRN; Protocol PRN Reason: See protol Sodium Bicarbonate 150 meq/ (Sterile Water) 1,000 mls @ 150 mls/hr IV.CONT .Q6H40M [place] Lactulose (Lactulose Liq) 30 ml PO DAILY PRN PRN Reason: SEVERE CONSITIPATION Lactulose (Lactulose Liq) 30 ml PO TID [place] Lorazepam (Ativan) 1 mg PO Q4H PRN PRN Reason: for CIWA 8-10 Lorazepam (Ativan) 2 mg PO Q2H PRN PRN Reason: for CIWA 11-14 Lorazepam (Ativan Inj) 2 mg IV.PUSH Q2H PRN PRN Reason: for CIWA 11-14 Lorazepam (Ativan Inj) 2 mg IV.PUSH Q1H PRN PRN Reason: for CIWA 15-20 Lorazepam (Ativan Inj) 2 mg IV.PUSH Q15M PRN PRN Reason: for CIWA > 20 Lorazepam (Ativan Inj) 1 mg IV.PUSH Q4H PRN PRN Reason: for CIWA 8-10 Miscellaneous Information ([facility] Ordered Lab Info) 0 each OTHER ONCE ONE Stop: 07/11/18 00:46 Morphine Sulfate (Morphine Inj) 2 mg IV.PUSH Q4H PRN PRN Reason: BREAKTHROUGH PAIN Last Admin: 07/10/18 01:51 Dose: 2 mg Naloxone HCl (Narcan Inj) 0.4 mg IV.PUSH UNSCH PRN PRN Reason: SEE LABEL COMMENTS Ondansetron HCl (Zofran Inj) 4 mg IV.PUSH Q6H PRN PRN Reason: NAUSEA OR VOMITING Pantoprazole Sodium (Protonix Inj) 40 mg IV.PUSH DAILY [facility] Last Admin: 07/09/18 14:26 Dose: 40 mg Pharmacy Profile Note (Vancomycin Consult Pharmacy) 1 each OTHER UNSCH PRN PRN Reason: Pharmacy to dose Senna/Docusate Sodium (Lizzeth-Colace) 1 tab PO BID [facility] Last Admin: 07/09/18 21:07 Dose: 1 tab Sennosides (Senokot) 17.2 mg PO Q12H PRN PRN Reason: Moderate Constipation Sodium Chloride (Ns Flush) 2 ml IV.FLUSH PRN PRN PRN Reason: FLUSH AFTER USING IV ACCESS Sodium Chloride (Ns Flush) 2 ml IV.FLUSH BID [facility] Last Admin: 07/09/18 21:15 Dose: Not Given Terbutaline Sulfate (Brethine Inj) 1 mg SQ UNSCH PRN PRN Reason: For Extravasation Allergies Allergy/AdvReac Type Severity Reaction Status Date / Time No Known Allergies Allergy Verified 07/08/18 12:30 Home Medications Medication Instructions Recorded Confirmed Type No Known Home Medications 07/08/18 07/08/18 History Physical Exam Vital signs: Vital Signs 07/09/18 08:00 07/09/18 12:00 07/09/18 16:00 Temperature 97.6 F 97.9 F 97.7 F Pulse Rate 110 H 103 H 105 H Respiratory Rate 17 17 18 Blood Pressure 98/53 L 103/56 L 115/60 Pulse Oximetry 97 96 94 L 07/09/18 20:00 07/10/18 00:00 07/10/18 01:40 Temperature 99.1 F 98.2 F Pulse Rate 123 H 127 H Respiratory Rate 18 18 Blood Pressure 123/95 H 98/51 L 105/56 L Pulse Oximetry 95 96 Intake & Output 07/09/18 07/09/18 07/10/18 06:59 18:59 06:59 Intake Total 1700 / 1700 2220.5 / 2220.5 3744.5 / 3744.5 Output Total 90 / 90 250 / 250 90 / 90 Balance 1610 / 1610 1970.5 / 1970.5 3654.5 / 3654.5 Weight 61.2 kg 61.2 kg Intake: IV 1100 / 1100 1620.5 / 1620.5 3744.5 / 3744.5 NS Inj 1,000 ML @ 150 mls/hr IV 1000 / 1000 1882 / 1882 .CONT .Q6H40M [facility] Rx#:[id number] Zosyn 3.375 GM Premix 50 ML @ 100 / 100 100 / 100 100 / 100 100 mls/hr IV.SIG Q6H [place] Rx#: [id number] NS Inj 1,000 ML @ 1000 mls/hr 1000 / 1000 1000 / 1000 IV.SIG BOLUS [facility] Rx#:[id number] NS Inj 500 ML @ 1000 mls/hr IV. 500 / 500 SIG BOLUS [facility] Rx#:[id number] Vancomycin Inj 1,250 MG In NS 520.5 / 520.5 262.5 / 262.5 Inj 250 ML @ 250 mls/hr IV.SIG Q12H [facility] Rx#:[id number] Oral 600 / 600 600 / 600 Output: Urine 90 / 90 250 / 250 90 / 90 Other: Date of Last Bowel Movement 07/08/18 # Bowel Movements 0 Weight On Admission 61.235 kg - Constitutional no acute distress - Routine HEENT Exam Head: Present: normocephalic. Absent: atraumatic (Abrasion below right eye) Eye: Present: EOMI, PERRL, normal accommodation ENT: Present: mucous membranes moist - Routine Neck Exam Present: supple, full ROM, carotid bruit (Right carotid bruit present). Absent : JVD - Routine Respiratory Exam Present: CTA bilaterally. Absent: accessory muscle use, rhonchi - Routine Cardiovascular Exam Present: S1, S2, tachycardia. Absent: murmur - Routine Abdominal Exam Present: soft, normoactive bowel sounds, tenderness (Right upper quadrant), guarding. Absent: distended, rebound - Routine Exam Patient deferred: penile exam, testicular exam, scrotal exam, groin exam, perineal exam - Routine Skin Exam Present: intact, ecchymosis. Absent: cracked - Routine Neurological Exam Present: alert, CN II-XII intact. Absent: oriented X3 (Oriented to person and time), sensory deficit, motor deficit - Detailed Neurological Exam: Coma Scale Eye Opening: Spontaneous Verbal Response: Confused Motor Response: Obey commands Tamera Coma Scale Total: 14 Septic Shock Reassessment Septic shock perfusion: reassessment completed Assessment and Plan - Assessment and Plan Plan: Neuro/Psych: EtOH abuse Recent cocaine/opiate abuse -inhaled. Denies intravenous CIWA protocol initiated with Lorazepam/haloperidol as needed Vitamin bag daily times 3 days. Patient states he inhaled cocaine 4-5 days ago. Denies IV drug use. Monitor for DTs Discontinued acetaminophen and related products with elevated transaminases CV: Lactic acidosis Severe sepsis Elevated troponin likely demand ischemia Right carotid artery stenosis Status post 2.5 L crystalloid resuscitation Lactates initially 2.2 currently 8.1. Noted elevated transaminases difficulty clearing. We will switch IV fluids to sterile water 3 ampoules of sodium bicarbonate 150 cc an hour. Recheck BMP at [address] chaudhry. 2D echocardiogram revealed EF of 55%. PA P 43 mmHg. Mild TR. On aspirin 81 mg daily and heparin drip. Noted discontinued heparin drip with coagulopathic state. Troponin trending downward. 1.66. Currently 1.11. A.m. EKG pending Followed by vascular surgery for right carotid artery stenosis 80%. Will need intervention when clinically stable. Resp: Tobacco abuse Emphysematous type changes on CT neck Hyperammonia Hypoalbuminemia Nasal cannula to maintain saturations greater than equal 92% Incentive spirometry while awake Albuterol/ipratropium aerosols every 4 hours with albuterol aerosols every 2 hours as needed dyspnea Follow-up on chest x-ray and ABG Tobacco cessation will be encouraged GI: Elevated transaminases Elevated total bilirubin Poss acalc jody Noted CT abdomen/pelvis revealed possible early cholecystitis. Pericholecystic fluid. Ultrasound revealed negative Lundy sign. Nuclear medicine scan revealed no activity in the intrahepatic ductal compound bile duct or small bowel. Possibly opacified disease. CT angiogram of the abdomen/pelvis revealed 2030% stenosis of the SMA. Patent MIC, celiac. Evaluated by gastroenterology. Hepatitis panel negative. Pending ceruloplasmin, BOBBY, AMA, ASMA, SSA AMB, anti-Ronquillo, RP, scleroderma, double-stranded DNA Currently on lactulose 30 cc 3 times daily for elevated ammonia. Recheck level in a.m. AM labs pending. Poss MRCP,jody tube? : Culver catheter if indicated for accurate I's and O's in a critical patient Endo: Sliding scale insulin with Accu-Cheks to maintain euglycemia/every 6 hours low regimen Check TSH and cortisol Renal: Acute kidney injury Check urine eosinophils, sodium and creatinine Monitor urine output Accurate I's and Avoid nephrotoxic medication Heme: Macrocytic anemia Thrombocytopenia Coagulopathic state Follow-up on PT/INR/PTT and fibrinogen No indication for transfusion of blood products at this time ID: Gram-positive cocci bacteremia 2D transthoracic echocardiogram revealed no signs of endocarditis. Infectious disease consultation Day #2 vancomycin Pipracil/tazobactam Replete blood cultures x2 with sputum and urine today 07/10 MSK: Left posterior olecranon fracture Followed by Dr. Blanco. Currently in splint immobilized. Follow-up in 2 weeks with x-rays CT left elbow today FEN: Replace electrolytes as clinically indicated Currently on sterile water with 3 ampoules of sodium e bicarbonate 150 cc an hour Access -Utilize peripheral IV. Central line if indicated Prophylaxis -GI -pantoprazole -DVT-SCD/holding heparin drip in light of coagulopathic state. Upon coags and fibrinogen stat Consult 35 minutes critical care time Code Status: full code Discussed Condition With: pt. Care plan discussed. All questions answered.
[2018-07-10] MEDS ORDERED: Phenylephrine Inj 160 MG in Sodium Chlor 0.9% Inj 484 ML IV.CONT PRN (06:30)
[2018-07-10] MEDS: Sodium Bicarbonate 8.4% Inj 150 MEQ in Water for Inj, Sterile 850 ML IV.CONT SCH ×3 (06:47→19:42)
--- NOTE | 2018-07-10 07:46 | XR ---
EXAM DATE: 07/10/2018 7:41 AM EST AGE/SEX: 63 years / Male INDICATIONS: Short of breath CLINICAL DATA: This is the patient's subsequent encounter. Patient reports that signs and symptoms h ave been present for 3 days and indicates a pain score of 0/10. MEDICAL/SURGICAL HISTORY: None. None. COMPARISON: [facility] [place], CHEST 1V SINGLE AP, 07/09/2018. [facility] [place], CHEST 1V SINGLE AP, 07/08/2018. . FINDINGS: Portable AP view of the chest demonstrates a normal-sized cardiac silhouette. EKG lines overlie the p atient. No pleural effusion, airspace consolidation, or pneumothorax is identified. The bones and sof t tissues demonstrate no acute finding. CONCLUSION: No acute cardiopulmonary abnormality is identified. Electronically signed by: Calvin Santa MD 07/10/2018 7:45 AM EST
[2018-07-10 07:53] LABS: ABG Base Excess -8.4 mmol/L (-2-2); ABG PCO2 32 mmHg (38-42); ABG PO2 88 mmHg (61-120)
[2018-07-10 08:07] LABS: Lymphocytes 4 % (9-44); Monocytes 10 % (0-8); Platelet Morphology Normal (Normal); Toxic Vacuolation Present
[2018-07-10] MEDS: Pantoprazole Inj 40 MG Vial IV.PUSH SCH (08:53)
[2018-07-10] MEDS: Senna/Docusate Sodium 8.6/50 MG Tablet PO SCH ×2 (08:53→21:17)
[2018-07-10] MEDS: Multivitamin Inj 10 ML, Thiamine Inj 100 MG, Folic Acid Inj 1 MG in Sodium Chlor 0.9% I... IV.SIG SCH (08:53)
--- NOTE | 2018-07-10 11:43 | P.PNVS ---
Subjective Subjective/Hospital Course: After reviewing diagnostic and laboratory data and reviewing the patient's record from previous admissions, it is unclear what the patient's problem really is other than the arm pain; however, the fall is somewhat unusual and ultrasound was quite indicated. This shows about 80% right internal carotid artery stenosis, with quite elevated flow velocities. CTA of the carotid is ordered and if that is positive, then patient will obviously require a right carotid endarterectomy. 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 Looking at this ultrasound myself I think it is right on the money however. As far as the abdominal exam is concerned, the patient is diffusely tender because of this fatty liver infiltration and probably some degree of cirrhosis; however, a chronically inflamed gallbladder will probably be nonfunctioning, and while HIDA scan does not show any activity in the liver or the gallbladder this is exactly due to the liver insufficiency and this does not need to be pursued any further. 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 While the carotid stenosis of 80% is quite serious problem patient is currently asymptomatic and clearly cardiac issues take precedence. If after everything is handled patient still in the hospital will address the carotid and if not we will see him as an outpatient for the same. Objective Vital Signs / I&O: Vital Signs 07/09/18 12:00 07/09/18 16:00 07/09/18 20:00 Temperature 97.9 F 97.7 F 99.1 F Pulse Rate 103 H 105 H 123 H Respiratory Rate 17 18 18 Blood Pressure 103/56 L 115/60 123/95 H Pulse Oximetry 96 94 L 95 07/10/18 00:00 07/10/18 01:40 07/10/18 04:00 Temperature 98.2 F 98.4 F Pulse Rate 127 H 121 H Respiratory Rate 18 31 H Blood Pressure 98/51 L 105/56 L 98/57 L Pulse Oximetry 96 94 L 07/10/18 05:27 07/10/18 05:30 07/10/18 05:32 Temperature Pulse Rate 109 H 109 H 109 H Respiratory Rate 33 H 53 H 53 H Blood Pressure 96/49 L Pulse Oximetry 76 L 96 07/10/18 06:00 07/10/18 06:11 07/10/18 06:30 Temperature Pulse Rate 108 H 107 H 107 H Respiratory Rate 91 H 121 H 125 H Blood Pressure 85/51 L Pulse Oximetry 76 L 76 L 94 L 07/10/18 07:00 07/10/18 07:01 07/10/18 07:11 Temperature Pulse Rate 106 H 105 H Respiratory Rate 25 H 25 H Blood Pressure 96/59 L 103/58 L Pulse Oximetry 96 97 07/10/18 07:30 07/10/18 07:58 07/10/18 08:00 Temperature Pulse Rate 105 H 102 H 106 H Respiratory Rate 22 18 18 Blood Pressure Pulse Oximetry 96 07/10/18 08:11 07/10/18 08:30 07/10/18 08:49 Temperature Pulse Rate 106 H 106 H 112 H Respiratory Rate 29 H 28 H 45 H Blood Pressure 107/53 L Pulse Oximetry 85 L 07/10/18 09:11 07/10/18 11:32 Temperature Pulse Rate 101 H Respiratory Rate 25 H Blood Pressure 105/63 Pulse Oximetry Intake & Output 07/09/18 07/10/18 07/10/18 18:59 06:59 18:59 Intake Total 2220.5 / 2220.5 5772.5 / 5772.5 50 / 50 Output Total 250 / 250 90 / 90 Balance 1970.5 / 1970.5 5682.5 / 5682.5 50 / 50 Weight 61.2 kg Intake: IV 1620.5 / 1620.5 5772.5 / 5772.5 50 / 50 Heparin/D5W 25,000 U/250 mL 25, 28 / 28 000 unit In 250 ml @ Per Protocol IV.CONT TITRATE PRN Rx #:[id number] NS Inj 1,000 ML @ 150 mls/hr IV 1000 / 1000 2882 / 2882 .CONT .Q6H40M [facility] Rx#:[id number] Zosyn 3.375 GM Premix 50 ML @ 100 / 100 100 / 100 50 / 50 100 mls/hr IV.SIG Q6H [facility] Rx#: [id number] NS Inj 1,000 ML @ 1000 mls/hr 2000 / 2000 IV.SIG BOLUS [facility] Rx#:[id number] NS Inj 500 ML @ 1000 mls/hr IV. 500 / 500 SIG BOLUS [facility] Rx#:[id number] Vancomycin Inj 1,250 MG In NS 520.5 / 520.5 262.5 / 262.5 Inj 250 ML @ 250 mls/hr IV.SIG Q12H [facility] Rx#:[id number] Oral 600 / 600 Output: Urine 250 / 250 90 / 90 Other: Date of Last Bowel Movement 07/08/18 07/08/18 Laboratory Results - last 24 hr 07/09/18 07/09/18 07/09/18 13:40 18:05 20:17 WBC RBC Hgb Hct MCV MCH MCHC RDW Plt Count MPV Prelim Diff (Auto) Neut % (Auto) Lymph % (Auto) Randolph % (Auto) Eos % (Auto) Baso % (Auto) Neut # (Auto) Lymph # (Auto) Randolph # (Auto) Eos # (Auto) Baso # (Auto) WBC Differential Seg Neuts % (Manual) Band Neuts % (Manual) Lymphocytes % (Manual) Monocytes % (Manual) Abs Neuts (Manual) Differential Comment Toxic Vacuolation Platelet Estimate Platelet Morphology ESR PT INR APTT Puncture Site Patient Temperature O2 Saturation ABG pH ABG pCO2 ABG pO2 ABG HCO3 ABG O2 Content ABG Base Excess ABG Methemoglobin Davide Test Hemoglobin Carboxyhemoglobin O2 Delivery Device Inspired O2 Critical Value Sodium Potassium Chloride Carbon Dioxide Anion Gap BUN Creatinine Estimated GFR Random Glucose Lactic Acid 4.0 H Calcium Iron TIBC % Saturation Ferritin Total Bilirubin AST ALT Alkaline Phosphatase Ammonia Troponin I 0.51 H C-Reactive Protein Total Protein Albumin Triglycerides Cholesterol LDL Cholesterol, Calc HDL Cholesterol Cholesterol/HDL Ratio Tumor Marker AFP Urine Opiates Screen Pos H Ur Barbiturates Screen Neg Ur Amphetamines Screen Neg U Benzodiazepines Scrn Neg Urine Cocaine Screen Pos H U Cannabinoids Screen Neg Hepatitis A IgM Ab Hep Bs Antigen Hep B Core IgM Ab Hep C IgG Ab 07/09/18 07/09/18 07/09/18 20:17 20:17 20:17 WBC RBC Hgb Hct MCV MCH MCHC RDW Plt Count MPV Prelim Diff (Auto) Neut % (Auto) Lymph % (Auto) Randolph % (Auto) Eos % (Auto) Baso % (Auto) Neut # (Auto) Lymph # (Auto) Randolph # (Auto) Eos # (Auto) Baso # (Auto) WBC Differential Seg Neuts % (Manual) Band Neuts % (Manual) Lymphocytes % (Manual) Monocytes % (Manual) Abs Neuts (Manual) Differential Comment Toxic Vacuolation Platelet Estimate Platelet Morphology ESR PT INR APTT Puncture Site Patient Temperature O2 Saturation ABG pH ABG pCO2 ABG pO2 ABG HCO3 ABG O2 Content ABG Base Excess ABG Methemoglobin Davide Test Hemoglobin Carboxyhemoglobin O2 Delivery Device Inspired O2 Critical Value Sodium Potassium Chloride Carbon Dioxide Anion Gap BUN Creatinine Estimated GFR Random Glucose Lactic Acid Calcium Iron 123 TIBC 217 L % Saturation 56.7 H Ferritin 9759 H Total Bilirubin AST ALT Alkaline Phosphatase Ammonia 64 H Troponin I C-Reactive Protein Total Protein Albumin Triglycerides Cholesterol LDL Cholesterol, Calc HDL Cholesterol Cholesterol/HDL Ratio Tumor Marker AFP 3.7 Urine Opiates Screen Ur Barbiturates Screen Ur Amphetamines Screen U Benzodiazepines Scrn Urine Cocaine Screen U Cannabinoids Screen Hepatitis A IgM Ab Nonreactive Hep Bs Antigen Nonreactive Hep B Core IgM Ab Nonreactive Hep C IgG Ab Nonreactive 07/09/18 07/09/18 07/09/18 20:17 20:17 20:17 WBC RBC Hgb Hct MCV MCH MCHC RDW Plt Count MPV Prelim Diff (Auto) Neut % (Auto) Lymph % (Auto) Randolph % (Auto) Eos % (Auto) Baso % (Auto) Neut # (Auto) Lymph # (Auto) Randolph # (Auto) Eos # (Auto) Baso # (Auto) WBC Differential Seg Neuts % (Manual) Band Neuts % (Manual) Lymphocytes % (Manual) Monocytes % (Manual) Abs Neuts (Manual) Differential Comment Toxic Vacuolation Platelet Estimate Platelet Morphology ESR 37 H PT INR APTT Puncture Site Patient Temperature O2 Saturation ABG pH ABG pCO2 ABG pO2 ABG HCO3 ABG O2 Content ABG Base Excess ABG Methemoglobin Davide Test Hemoglobin Carboxyhemoglobin O2 Delivery Device Inspired O2 Critical Value Sodium Potassium Chloride Carbon Dioxide Anion Gap BUN Creatinine Estimated GFR Random Glucose Lactic Acid Calcium Iron TIBC % Saturation Ferritin Total Bilirubin AST ALT Alkaline Phosphatase Ammonia Troponin I C-Reactive Protein 5.70 H Total Protein Albumin Triglycerides 140 Cholesterol 50 L LDL Cholesterol, Calc 11 HDL Cholesterol 10.8 L Cholesterol/HDL Ratio 4.62 Tumor Marker AFP Urine Opiates Screen Ur Barbiturates Screen Ur Amphetamines Screen U Benzodiazepines Scrn Urine Cocaine Screen U Cannabinoids Screen Hepatitis A IgM Ab Hep Bs Antigen Hep B Core IgM Ab Hep C IgG Ab 07/09/18 07/09/18 07/09/18 20:17 22:49 22:49 WBC RBC Hgb Hct MCV MCH MCHC RDW Plt Count MPV Prelim Diff (Auto) Neut % (Auto) Lymph % (Auto) Randolph % (Auto) Eos % (Auto) Baso % (Auto) Neut # (Auto) Lymph # (Auto) Randolph # (Auto) Eos # (Auto) Baso # (Auto) WBC Differential Seg Neuts % (Manual) Band Neuts % (Manual) Lymphocytes % (Manual) Monocytes % (Manual) Abs Neuts (Manual) Differential Comment Toxic Vacuolation Platelet Estimate Platelet Morphology ESR PT 36.5 H D INR 3.6 APTT 37.7 H Puncture Site Patient Temperature O2 Saturation ABG pH ABG pCO2 ABG pO2 ABG HCO3 ABG O2 Content ABG Base Excess ABG Methemoglobin Davide Test Hemoglobin Carboxyhemoglobin O2 Delivery Device Inspired O2 Critical Value Sodium Potassium Chloride Carbon Dioxide Anion Gap BUN Creatinine Estimated GFR Random Glucose Lactic Acid 5.1 H* Calcium Iron TIBC % Saturation Ferritin Total Bilirubin AST ALT Alkaline Phosphatase Ammonia Troponin I 1.66 H* C-Reactive Protein Total Protein Albumin Triglycerides Cholesterol LDL Cholesterol, Calc HDL Cholesterol Cholesterol/HDL Ratio Tumor Marker AFP Urine Opiates Screen Ur Barbiturates Screen Ur Amphetamines Screen U Benzodiazepines Scrn Urine Cocaine Screen U Cannabinoids Screen Hepatitis A IgM Ab Hep Bs Antigen Hep B Core IgM Ab Hep C IgG Ab 07/10/18 07/10/18 07/10/18 01:30 01:30 04:27 WBC 9.6 RBC 3.65 L Hgb 12.2 L Hct 36.9 L MCV 101.2 H D MCH 33.5 MCHC 33.1 RDW 13.2 Plt Count 55 L MPV 11.1 H Prelim Diff (Auto) Slide review pending Neut % (Auto) 89.9 H Lymph % (Auto) 3.4 L Randolph % (Auto) 6.5 Eos % (Auto) 0.1 Baso % (Auto) 0.1 Neut # (Auto) 8.6 H Lymph # (Auto) 0.3 L Randolph # (Auto) 0.6 Eos # (Auto) 0.0 Baso # (Auto) 0.0 WBC Differential Manual diff final Seg Neuts % (Manual) 79 H Band Neuts % (Manual) 7 H Lymphocytes % (Manual) 4 L Monocytes % (Manual) 10 H Abs Neuts (Manual) 8.3 H Differential Comment . Toxic Vacuolation Present H Platelet Estimate Low L Platelet Morphology Normal ESR PT INR APTT Puncture Site Patient Temperature O2 Saturation ABG pH ABG pCO2 ABG pO2 ABG HCO3 ABG O2 Content ABG Base Excess ABG Methemoglobin Davide Test Hemoglobin Carboxyhemoglobin O2 Delivery Device Inspired O2 Critical Value Sodium Potassium Chloride Carbon Dioxide Anion Gap BUN Creatinine Estimated GFR Random Glucose Lactic Acid 6.2 H* Calcium Iron TIBC % Saturation Ferritin Total Bilirubin AST ALT Alkaline Phosphatase Ammonia Troponin I 1.11 H* C-Reactive Protein Total Protein Albumin Triglycerides Cholesterol LDL Cholesterol, Calc HDL Cholesterol Cholesterol/HDL Ratio Tumor Marker AFP Urine Opiates Screen Ur Barbiturates Screen Ur Amphetamines Screen U Benzodiazepines Scrn Urine Cocaine Screen U Cannabinoids Screen Hepatitis A IgM Ab Hep Bs Antigen Hep B Core IgM Ab Hep C IgG Ab 07/10/18 07/10/18 07/10/18 04:27 04:27 04:27 WBC RBC Hgb Hct MCV MCH MCHC RDW Plt Count MPV Prelim Diff (Auto) Neut % (Auto) Lymph % (Auto) Randolph % (Auto) Eos % (Auto) Baso % (Auto) Neut # (Auto) Lymph # (Auto) Randolph # (Auto) Eos # (Auto) Baso # (Auto) WBC Differential Seg Neuts % (Manual) Band Neuts % (Manual) Lymphocytes % (Manual) Monocytes % (Manual) Abs Neuts (Manual) Differential Comment Toxic Vacuolation Platelet Estimate Platelet Morphology ESR PT INR APTT 68.2 H D Puncture Site Patient Temperature O2 Saturation ABG pH ABG pCO2 ABG pO2 ABG HCO3 ABG O2 Content ABG Base Excess ABG Methemoglobin Davide Test Hemoglobin Carboxyhemoglobin O2 Delivery Device Inspired O2 Critical Value Sodium 137 Potassium 4.6 Chloride 105 Carbon Dioxide 16.7 L Anion Gap 15 BUN 18 Creatinine 1.24 Estimated GFR 59 L Random Glucose 70 L Lactic Acid 8.0 H* Calcium 8.1 L Iron TIBC % Saturation Ferritin Total Bilirubin 3.8 H AST 6909 H ALT 2815 H Alkaline Phosphatase 126 H Ammonia Troponin I C-Reactive Protein Total Protein 6.6 D Albumin 2.7 L Triglycerides Cholesterol LDL Cholesterol, Calc HDL Cholesterol Cholesterol/HDL Ratio Tumor Marker AFP Urine Opiates Screen Ur Barbiturates Screen Ur Amphetamines Screen U Benzodiazepines Scrn Urine Cocaine Screen U Cannabinoids Screen Hepatitis A IgM Ab Hep Bs Antigen Hep B Core IgM Ab Hep C IgG Ab 07/10/18 07:44 WBC RBC Hgb Hct MCV MCH MCHC RDW Plt Count MPV Prelim Diff (Auto) Neut % (Auto) Lymph % (Auto) Randolph % (Auto) Eos % (Auto) Baso % (Auto) Neut # (Auto) Lymph # (Auto) Randolph # (Auto) Eos # (Auto) Baso # (Auto) WBC Differential Seg Neuts % (Manual) Band Neuts % (Manual) Lymphocytes % (Manual) Monocytes % (Manual) Abs Neuts (Manual) Differential Comment Toxic Vacuolation Platelet Estimate Platelet Morphology ESR PT INR APTT Puncture Site Right radial Patient Temperature 98.6 O2 Saturation 93 ABG pH 7.34 L ABG pCO2 32 L ABG pO2 88 ABG HCO3 16 L* ABG O2 Content 14.6 ABG Base Excess -8.4 L ABG Methemoglobin 1.1 Davide Test Present Hemoglobin 11.0 L Carboxyhemoglobin 0.7 O2 Delivery Device Room air Inspired O2 21 Critical Value Yes Sodium Potassium Chloride Carbon Dioxide Anion Gap BUN Creatinine Estimated GFR Random Glucose Lactic Acid Calcium Iron TIBC % Saturation Ferritin Total Bilirubin AST ALT Alkaline Phosphatase Ammonia Troponin I C-Reactive Protein Total Protein Albumin Triglycerides Cholesterol LDL Cholesterol, Calc HDL Cholesterol Cholesterol/HDL Ratio Tumor Marker AFP Urine Opiates Screen Ur Barbiturates Screen Ur Amphetamines Screen U Benzodiazepines Scrn Urine Cocaine Screen U Cannabinoids Screen Hepatitis A IgM Ab Hep Bs Antigen Hep B Core IgM Ab Hep C IgG Ab Microbiology 07/08/18 19:30 Aerobic Blood Culture - Preliminary Blood - Peripheral S. aureus MRSA Anaerobic Blood Culture - Preliminary S. aureus MRSA 07/08/18 19:35 Aerobic Blood Culture - Preliminary Blood - Peripheral S. aureus MRSA Anaerobic Blood Culture - Preliminary gram positive cocci Impressions Head CT 07/08/18 17:06 CONCLUSION: 1. No acute intracranial abnormality. 2. Mild Atrophy. . Chest X-Ray 07/08/18 17:42 CONCLUSION: No evidence of acute cardiopulmonary disease. Elbow X-Ray 07/08/18 18:01 CONCLUSION: 1. Small, mildly displaced olecranon avulsion fracture fragments of the triceps insertion with associated soft tissue swelling. 2. Joint effusion. No perceptible intra-articular fracture. No subluxation. Abdomen/Pelvis CT 07/08/18 18:02 CONCLUSION: 1. Severe fatty infiltration of the liver. 2. Apparent pericholecystic fluid. Also fairly robust enhancement of the gallbladder mucosa. Please correlate clinically for any evidence of cholecystitis. No stones or ductal dilatation demonstrated. Gallbladder Ultrasound 07/08/18 18:53 CONCLUSION: 1. Small, nonspecific pericholecystic fluid without stones, wall thickening or sonographic Lundy's sign. The fluid may be on the basis of hepatocellular disease. The ultrasound does not support acute cholecystitis. 2. Fatty infiltrated and mildly enlarged liver. Carotid Doppler Study 07/09/18 00:00 CONCLUSION: 1. Right Internal Carotid Artery: Findings indicate >70% stenosis, but less than near occlusion. 2. Left Internal Carotid Artery: Findings indicate <50% stenosis. Chest X-Ray 07/09/18 00:39 CONCLUSION: Negative examination. Hepatobiliary Scan Nuclear Medicine 07/09/18 14:22 CONCLUSION: 1. No activity in intrahepatic ducts, common duct or small bowel. Considerations include include acute obstruction of the common duct and diffuse hepatocellular disease. 2. CT scan shows no dilatation of the common duct or intrahepatic ducts. Diffuse hepatocellular disease is suspected. Chest X-Ray 07/10/18 00:00 CONCLUSION: No acute cardiopulmonary abnormality is identified. Neck CTA 07/10/18 00:00 CONCLUSION: 1. 80% stenosis of the proximal right ICA. Left carotid and bilateral vertebral arteries are patent. 2. Emphysematous changes. Abdomen/Pelvis CTA 07/10/18 00:08 CONCLUSION: 1. 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 The SMA and MIC are patent. 2. Hepatic steatosis. 3. Emphysematous changes.
[2018-07-10 11:46] LABS: INR 4.8 Ratio; Prothrombin Time 48.3 sec (9.8-11.6)
[2018-07-10 12:08] LABS: Troponin I 7.39 ng/mL (0.02-0.05)
--- NOTE | 2018-07-10 13:36 | P.CONID ---
History of Present Illness Service: Infectious disease Consult date: 07/10/18 Requesting Physician: Tito Cross Reason for Consult: Evaluate patient with bacteremia Primary Care Provider: No Primary Care Physician Chief Complaint: Left elbow pain History of Present Illness: Patient seen and examined. Records reviewed. Patient is a 63-year-old male, presented to the hospital complaining of pain and swelling on his left elbow. He stated that he fell about a week ago but did not seek any treatment for his left elbow. He presented to the ED, and he was found to have a fracture of the olecranon on the left side. Patient also since admission has complained of some abdominal pain. He has known history of significant alcohol abuse. Imaging studies of the abdomen showed hepatic steatosis, pericholecystic fluid with no ductal dilatation. Ultrasound showed pericholecystic fluid with negative Lundy sign. He had a HIDA scan which showed no activity which could most likely be due to his liver disease. Patient also had a CTA as part of evaluation for his abdominal pain. That is okay. There were 2 blood cultures done in the ED, and they are now reported as growing MRSA. Patient has had some low-grade temps. Overnight he had persistent hypotension, and he was transferred to the ICU. Patient currently is on pressors. He is afebrile. He is still complaining of abdominal pain. He states he has chronic back pain which has not changed. He denies any shortness of breath. On this admission he was also found to have 80% right carotid artery stenosis, and vascular is following the patient. Echocardiograms not showing any obvious vegetation. His WBC is mildly elevated. He has an elevated lactic acid. His platelet count is low, fibrinogen is normal. Infectious disease consultation has been requested to assist with evaluation and treatment of his bacteremia. Review of Systems Constitutional: Denies chills, Denies fever(s), Denies night sweats Eyes: Denies discharge, Denies dry eyes Ears, Nose, Mouth, and Throat: Denies difficulty swallowing, Denies facial pain , Denies lip swelling, Denies nasal discharge, Denies nose pain, Denies sore throat Cardiovascular: Denies chest pain, Denies foot swelling, Denies shortness of breath Respiratory: Denies chest congestion, Denies cough, Denies shortness of breath Gastrointestinal: Reports abdominal pain, Denies black, tarry stools, Denies bright, red blood in stools, Denies loose stools, Denies nausea, Denies pain with swallowing, Denies vomiting Genitourinary: Denies difficulty urinating, Denies painful urination Musculoskeletal: Reports back pain, Reports joint pain Skin/Breast: Denies sores Neurologic: Denies headache(s), Denies tingling/numbness/burning sensations PMFSH - History History Provided By: Patient - Medical History Medical History: Medical History (Last Reviewed 07/10/18 @ 13:31 by Jina Abbasi MD) Alcohol abuse Tobacco abuse - Surgical History Surgical History: Surgical History (Last Reviewed 07/10/18 @ 13:31 by Jina Abbasi MD) No history of previous surgery - Family History Family History: Family History (Last Reviewed 07/10/18 @ 13:31 by Jina Abbasi MD) Other Coronary artery disease Diabetes mellitus - Tobacco History Second Hand Smoke Exposure: Yes Tobacco Use In Past 30 Days: Yes Smoking Status: Heavy tobacco smoker Tobacco Type: Cigarettes - Alcohol History How Often Do You Have a Drink Containing Alcohol: 4 or more times a week - Substance Use History Substance History: No History of Abuse - Travel History Recent Travel in the [place] Within the Last 8 Weeks: No Recent Travel Out of the Country Within the Last 8 Weeks: No - Immunization History Tetanus Immunization: >5 Years Hx Influenza Vaccine This Season: No Medications and Allergies Active Medications: Active Medications Al Hydroxide/Mg Hydroxide (Milk Of Pj White) 30 ml PO Q12H PRN PRN Reason: Mild Constipation Albuterol (Albuterol Neb (Prn)) 2.5 mg NEB Q2HR NEB PRN PRN Reason: DYSPNEA Albuterol (Duoneb Neb (Lynda)) 1 ampul NEB Q4HR NEB LYNDA Last Admin: 07/10/18 11:31 Dose: 1 ampul Flumazenil (Romazecon Inj) 0.2 mg IV.PUSH Q1M PRN PRN Reason: OVERSEDATION Haloperidol Lactate (Haldol Inj) 1 mg IV.PUSH Q15M PRN PRN Reason: for severe agitation Piperacillin/Tazobactam/Dextrose (Zosyn 3.375 Gm Premix) 50 mls @ 100 mls/hr IV.SIG Q6H LYNDA Last Infusion: 07/10/18 09:31 Dose: Infused Vancomycin HCl 1,250 mg/ (Sodium Chloride) 262.5 mls @ 250 mls/hr IV.SIG Q12H [facility] Last Admin: 07/10/18 12:17 Dose: 250 mls/hr Multivitamins 10 ml/ Thiamine HCl 100 mg/ Folic Acid 1 mg/Sodium Chloride 511.2 mls @ 125 mls/hr IV.SIG Q24H [facility] Stop: 07/12/18 12:06 Last Admin: 07/10/18 08:53 Dose: 125 mls/hr Phenylephrine HCl 160 mg/ (Sodium Chloride) 500 mls @ 7.5 mls/hr IV.CONT TITRATE PRN; Protocol PRN Reason: See protol Last Admin: 07/10/18 06:47 Dose: 40 mcg/min, 7.5 mls/hr Sodium Bicarbonate 150 meq/ (Sterile Water) 1,000 mls @ 150 mls/hr IV.CONT .Q6H40M [facility] Last Admin: 07/10/18 06:47 Dose: 150 mls/hr Lactulose (Lactulose Liq) 30 ml PO DAILY PRN PRN Reason: SEVERE CONSITIPATION Lactulose (Lactulose Liq) 30 ml PO TID [facility] Last Admin: 07/10/18 12:17 Dose: 30 ml Lorazepam (Ativan) 1 mg PO Q4H PRN PRN Reason: for CIWA 8-10 Lorazepam (Ativan) 2 mg PO Q2H PRN PRN Reason: for CIWA 11-14 Lorazepam (Ativan Inj) 2 mg IV.PUSH Q2H PRN PRN Reason: for CIWA 11-14 Lorazepam (Ativan Inj) 2 mg IV.PUSH Q1H PRN PRN Reason: for CIWA 15-20 Lorazepam (Ativan Inj) 2 mg IV.PUSH Q15M PRN PRN Reason: for CIWA > 20 Lorazepam (Ativan Inj) 1 mg IV.PUSH Q4H PRN PRN Reason: for CIWA 8-10 Morphine Sulfate (Morphine Inj) 2 mg IV.PUSH Q4H PRN PRN Reason: BREAKTHROUGH PAIN Last Admin: 07/10/18 13:19 Dose: 2 mg Naloxone HCl (Narcan Inj) 0.4 mg IV.PUSH UNSCH PRN PRN Reason: SEE LABEL COMMENTS Ondansetron HCl (Zofran Inj) 4 mg IV.PUSH Q6H PRN PRN Reason: NAUSEA OR VOMITING Pantoprazole Sodium (Protonix Inj) 40 mg IV.PUSH DAILY [facility] Last Admin: 07/10/18 08:53 Dose: 40 mg Pharmacy Profile Note (Vancomycin Consult Pharmacy) 1 each OTHER UNSCH PRN PRN Reason: Pharmacy to dose Senna/Docusate Sodium (Lizzeth-Colace) 1 tab PO BID [facility] Last Admin: 07/10/18 08:53 Dose: 1 tab Sennosides (Senokot) 17.2 mg PO Q12H PRN PRN Reason: Moderate Constipation Sodium Chloride (Ns Flush) 2 ml IV.FLUSH PRN PRN PRN Reason: FLUSH AFTER USING IV ACCESS Sodium Chloride (Ns Flush) 2 ml IV.FLUSH BID [facility] Last Admin: 07/10/18 08:53 Dose: 2 ml Terbutaline Sulfate (Brethine Inj) 1 mg SQ UNSCH PRN PRN Reason: For Extravasation Allergies Allergy/AdvReac Type Severity Reaction Status Date / Time No Known Allergies Allergy Verified 07/08/18 12:30 Home Medications Medication Instructions Recorded Confirmed Type No Known Home Medications 07/08/18 07/08/18 History Exam Vital signs: Vital Signs 07/09/18 16:00 07/09/18 20:00 07/10/18 00:00 Temperature 97.7 F 99.1 F 98.2 F Pulse Rate 105 H 123 H 127 H Respiratory Rate 18 18 18 Blood Pressure 115/60 123/95 H 98/51 L Pulse Oximetry 94 L 95 96 07/10/18 01:40 07/10/18 04:00 07/10/18 05:27 Temperature 98.4 F Pulse Rate 121 H 109 H Respiratory Rate 31 H 33 H Blood Pressure 105/56 L 98/57 L Pulse Oximetry 94 L 76 L 07/10/18 05:30 07/10/18 05:32 07/10/18 06:00 Temperature Pulse Rate 109 H 109 H 108 H Respiratory Rate 53 H 53 H 91 H Blood Pressure 96/49 L Pulse Oximetry 96 76 L 07/10/18 06:11 07/10/18 06:30 07/10/18 07:00 Temperature Pulse Rate 107 H 107 H 106 H Respiratory Rate 121 H 125 H 25 H Blood Pressure 85/51 L Pulse Oximetry 76 L 94 L 96 07/10/18 07:01 07/10/18 07:11 07/10/18 07:30 Temperature Pulse Rate 105 H 105 H Respiratory Rate 25 H 22 Blood Pressure 96/59 L 103/58 L Pulse Oximetry 97 96 07/10/18 07:58 07/10/18 08:00 07/10/18 08:11 Temperature Pulse Rate 102 H 106 H 106 H Respiratory Rate 18 18 29 H Blood Pressure 107/53 L Pulse Oximetry 07/10/18 08:30 07/10/18 08:49 07/10/18 09:11 Temperature Pulse Rate 106 H 112 H Respiratory Rate 28 H 45 H Blood Pressure 105/63 Pulse Oximetry 85 L 07/10/18 10:11 07/10/18 10:17 07/10/18 10:30 Temperature Pulse Rate 110 H 97 H Respiratory Rate Blood Pressure 106/54 L Pulse Oximetry 07/10/18 11:00 07/10/18 11:11 07/10/18 11:30 Temperature Pulse Rate 100 H 99 H 91 H Respiratory Rate 18 18 Blood Pressure 84/49 L Pulse Oximetry 89 L 07/10/18 11:32 07/10/18 11:45 07/10/18 12:00 Temperature 99.1 F Pulse Rate 101 H 99 H 102 H Respiratory Rate 25 H 18 Blood Pressure 93/68 L 98/69 L Pulse Oximetry 92 L Intake & Output 07/09/18 07/10/18 07/10/18 18:59 06:59 18:59 Intake Total 2220.5 / 2220.5 5772.5 / 5772.5 50 / 50 Output Total 250 / 250 90 / 90 Balance 1970.5 / 1970.5 5682.5 / 5682.5 50 / 50 Weight 61.2 kg Intake: IV 1620.5 / 1620.5 5772.5 / 5772.5 50 / 50 Heparin/D5W 25,000 U/250 mL 25, 28 / 28 000 unit In 250 ml @ Per Protocol IV.CONT TITRATE PRN Rx #:[id number] NS Inj 1,000 ML @ 150 mls/hr IV 1000 / 1000 2882 / 2882 .CONT .Q6H40M [facility] Rx#:[id number] Zosyn 3.375 GM Premix 50 ML @ 100 / 100 100 / 100 50 / 50 100 mls/hr IV.SIG Q6H [facility] Rx#: [id number] NS Inj 1,000 ML @ 1000 mls/hr 1999 / 1999 IV.SIG BOLUS LYNDA Rx#:[id number] NS Inj 500 ML @ 1000 mls/hr IV. 500 / 500 SIG BOLUS LYNDA Rx#:[id number] Vancomycin Inj 1,250 MG In NS 520.5 / 520.5 262.5 / 262.5 Inj 250 ML @ 250 mls/hr IV.SIG Q12H LYN[facility] Rx#:[id number] Oral 600 / 600 Output: Urine 250 / 250 90 / 90 Other: Date of Last Bowel Movement 07/08/18 07/08/18 Narrative: Physical examination GENERAL: Patient is a well-nourished, well-developed male, awake and alert, not in respiratory distress. SKIN: Cool and dry. No generalized rash, no ecchymoses. Has healing abrasions in his UE. No evidence of embolic lesions. HEAD: Atraumatic. Normocephalic. No temporal wasting, or tenderness. EYES: [place] conjunctiva. No petechia or hemorrhage. Pupils equal, round and reactive to light. Extraocular movements full and intact. No scleral icterus. No injection or drainage. EARS, NOSE AND THROAT: Nose without bleeding or purulent nasal discharge. No sinus tenderness. Mucous membranes pink and moist. No oral lesions noted. He is edentulous NECK: Trachea midline. Supple and not tender, no meningeal signs CARDIOVASCULAR: Regular rate and rhythm. No murmurs, rubs or gallops heard RESPIRATORY: Clear to auscultation. Breath sounds equal bilaterally. No rales , wheezing or rhonchi ABDOMEN: Soft, Mildly distended, tender diffusely, no guarding or rebound. Bowel sounds present and normoactive. EXTREMITIES: No clubbing, cyanosis, or edema. No calf tenderness. Well perfused and warm. Has posterior splint in his whole LUE NEUROLOGICAL: Awake and alert. Cranial nerves grossly intact. Motor grossly within normal limits. PSYCHIATRIC: Normal affect, calm and cooperative. LINE: No evidence of infection Results - Labs CBC & Chem 7: 07/10/18 04:27 07/10/18 04:27 Labs: Laboratory Results - last 24 hr 07/09/18 07/09/18 07/09/18 13:40 18:05 20:17 WBC RBC Hgb Hct MCV MCH MCHC RDW Plt Count MPV Prelim Diff (Auto) Neut % (Auto) Lymph % (Auto) Howard % (Auto) Eos % (Auto) Baso % (Auto) Neut # (Auto) Lymph # (Auto) Howard # (Auto) Eos # (Auto) Baso # (Auto) WBC Differential Seg Neuts % (Manual) Band Neuts % (Manual) Lymphocytes % (Manual) Monocytes % (Manual) Abs Neuts (Manual) Differential Comment Toxic Vacuolation Platelet Estimate Platelet Morphology ESR PT INR APTT Fibrinogen Puncture Site Patient Temperature O2 Saturation ABG pH ABG pCO2 ABG pO2 ABG HCO3 ABG O2 Content ABG Base Excess ABG Methemoglobin Davide Test Hemoglobin Carboxyhemoglobin O2 Delivery Device Inspired O2 Critical Value Sodium Potassium Chloride Carbon Dioxide Anion Gap BUN Creatinine Estimated GFR Random Glucose Lactic Acid 4.0 H Calcium Iron TIBC % Saturation Ferritin Total Bilirubin Direct Bilirubin Indirect Bilirubin AST ALT Alkaline Phosphatase Ammonia Troponin I 0.51 H C-Reactive Protein Total Protein Albumin Triglycerides Cholesterol LDL Cholesterol, Calc HDL Cholesterol Cholesterol/HDL Ratio Tumor Marker AFP Cortisol Urine Opiates Screen Pos H Ur Barbiturates Screen Neg Ur Amphetamines Screen Neg U Benzodiazepines Scrn Neg Urine Cocaine Screen Pos H U Cannabinoids Screen Neg Hepatitis A IgM Ab Hep Bs Antigen Hep B Core IgM Ab Hep C IgG Ab 07/09/18 07/09/18 07/09/18 20:17 20:17 20:17 WBC RBC Hgb Hct MCV MCH MCHC RDW Plt Count MPV Prelim Diff (Auto) Neut % (Auto) Lymph % (Auto) Howard % (Auto) Eos % (Auto) Baso % (Auto) Neut # (Auto) Lymph # (Auto) Howard # (Auto) Eos # (Auto) Baso # (Auto) WBC Differential Seg Neuts % (Manual) Band Neuts % (Manual) Lymphocytes % (Manual) Monocytes % (Manual) Abs Neuts (Manual) Differential Comment Toxic Vacuolation Platelet Estimate Platelet Morphology ESR PT INR APTT Fibrinogen Puncture Site Patient Temperature O2 Saturation ABG pH ABG pCO2 ABG pO2 ABG HCO3 ABG O2 Content ABG Base Excess ABG Methemoglobin Davide Test Hemoglobin Carboxyhemoglobin O2 Delivery Device Inspired O2 Critical Value Sodium Potassium Chloride Carbon Dioxide Anion Gap BUN Creatinine Estimated GFR Random Glucose Lactic Acid Calcium Iron 123 TIBC 217 L % Saturation 56.7 H Ferritin 9759 H Total Bilirubin Direct Bilirubin Indirect Bilirubin AST ALT Alkaline Phosphatase Ammonia 64 H Troponin I C-Reactive Protein Total Protein Albumin Triglycerides Cholesterol LDL Cholesterol, Calc HDL Cholesterol Cholesterol/HDL Ratio Tumor Marker AFP 3.7 Cortisol Urine Opiates Screen Ur Barbiturates Screen Ur Amphetamines Screen U Benzodiazepines Scrn Urine Cocaine Screen U Cannabinoids Screen Hepatitis A IgM Ab Nonreactive Hep Bs Antigen Nonreactive Hep B Core IgM Ab Nonreactive Hep C IgG Ab Nonreactive 07/09/18 07/09/18 07/09/18 20:17 20:17 20:17 WBC RBC Hgb Hct MCV MCH MCHC RDW Plt Count MPV Prelim Diff (Auto) Neut % (Auto) Lymph % (Auto) Howard % (Auto) Eos % (Auto) Baso % (Auto) Neut # (Auto) Lymph # (Auto) Howard # (Auto) Eos # (Auto) Baso # (Auto) WBC Differential Seg Neuts % (Manual) Band Neuts % (Manual) Lymphocytes % (Manual) Monocytes % (Manual) Abs Neuts (Manual) Differential Comment Toxic Vacuolation Platelet Estimate Platelet Morphology ESR 37 H PT INR APTT Fibrinogen Puncture Site Patient Temperature O2 Saturation ABG pH ABG pCO2 ABG pO2 ABG HCO3 ABG O2 Content ABG Base Excess ABG Methemoglobin Davide Test Hemoglobin Carboxyhemoglobin O2 Delivery Device Inspired O2 Critical Value Sodium Potassium Chloride Carbon Dioxide Anion Gap BUN Creatinine Estimated GFR Random Glucose Lactic Acid Calcium Iron TIBC % Saturation Ferritin Total Bilirubin Direct Bilirubin Indirect Bilirubin AST ALT Alkaline Phosphatase Ammonia Troponin I C-Reactive Protein 5.70 H Total Protein Albumin Triglycerides 140 Cholesterol 50 L LDL Cholesterol, Calc 11 HDL Cholesterol 10.8 L Cholesterol/HDL Ratio 4.62 Tumor Marker AFP Cortisol Urine Opiates Screen Ur Barbiturates Screen Ur Amphetamines Screen U Benzodiazepines Scrn Urine Cocaine Screen U Cannabinoids Screen Hepatitis A IgM Ab Hep Bs Antigen Hep B Core IgM Ab Hep C IgG Ab 07/09/18 07/09/18 07/09/18 20:17 22:49 22:49 WBC RBC Hgb Hct MCV MCH MCHC RDW Plt Count MPV Prelim Diff (Auto) Neut % (Auto) Lymph % (Auto) Howard % (Auto) Eos % (Auto) Baso % (Auto) Neut # (Auto) Lymph # (Auto) Howard # (Auto) Eos # (Auto) Baso # (Auto) WBC Differential Seg Neuts % (Manual) Band Neuts % (Manual) Lymphocytes % (Manual) Monocytes % (Manual) Abs Neuts (Manual) Differential Comment Toxic Vacuolation Platelet Estimate Platelet Morphology ESR PT 36.5 H D INR 3.6 APTT 37.7 H Fibrinogen Puncture Site Patient Temperature O2 Saturation ABG pH ABG pCO2 ABG pO2 ABG HCO3 ABG O2 Content ABG Base Excess ABG Methemoglobin Davide Test Hemoglobin Carboxyhemoglobin O2 Delivery Device Inspired O2 Critical Value Sodium Potassium Chloride Carbon Dioxide Anion Gap BUN Creatinine Estimated GFR Random Glucose Lactic Acid 5.1 H* Calcium Iron TIBC % Saturation Ferritin Total Bilirubin Direct Bilirubin Indirect Bilirubin AST ALT Alkaline Phosphatase Ammonia Troponin I 1.66 H* C-Reactive Protein Total Protein Albumin Triglycerides Cholesterol LDL Cholesterol, Calc HDL Cholesterol Cholesterol/HDL Ratio Tumor Marker AFP Cortisol Urine Opiates Screen Ur Barbiturates Screen Ur Amphetamines Screen U Benzodiazepines Scrn Urine Cocaine Screen U Cannabinoids Screen Hepatitis A IgM Ab Hep Bs Antigen Hep B Core IgM Ab Hep C IgG Ab 07/10/18 07/10/18 07/10/18 01:30 01:30 04:27 WBC 9.6 RBC 3.65 L Hgb 12.2 L Hct 36.9 L MCV 101.2 H D MCH 33.5 MCHC 33.1 RDW 13.2 Plt Count 55 L MPV 11.1 H Prelim Diff (Auto) Slide review pending Neut % (Auto) 89.9 H Lymph % (Auto) 3.4 L Howard % (Auto) 6.5 Eos % (Auto) 0.1 Baso % (Auto) 0.1 Neut # (Auto) 8.6 H Lymph # (Auto) 0.3 L Howard # (Auto) 0.6 Eos # (Auto) 0.0 Baso # (Auto) 0.0 WBC Differential Manual diff final Seg Neuts % (Manual) 79 H Band Neuts % (Manual) 7 H Lymphocytes % (Manual) 4 L Monocytes % (Manual) 10 H Abs Neuts (Manual) 8.3 H Differential Comment . Toxic Vacuolation Present H Platelet Estimate Low L Platelet Morphology Normal ESR PT INR APTT Fibrinogen Puncture Site Patient Temperature O2 Saturation ABG pH ABG pCO2 ABG pO2 ABG HCO3 ABG O2 Content ABG Base Excess ABG Methemoglobin Davide Test Hemoglobin Carboxyhemoglobin O2 Delivery Device Inspired O2 Critical Value Sodium Potassium Chloride Carbon Dioxide Anion Gap BUN Creatinine Estimated GFR Random Glucose Lactic Acid 6.2 H* Calcium Iron TIBC % Saturation Ferritin Total Bilirubin Direct Bilirubin Indirect Bilirubin AST ALT Alkaline Phosphatase Ammonia Troponin I 1.11 H* C-Reactive Protein Total Protein Albumin Triglycerides Cholesterol LDL Cholesterol, Calc HDL Cholesterol Cholesterol/HDL Ratio Tumor Marker AFP Cortisol Urine Opiates Screen Ur Barbiturates Screen Ur Amphetamines Screen U Benzodiazepines Scrn Urine Cocaine Screen U Cannabinoids Screen Hepatitis A IgM Ab Hep Bs Antigen Hep B Core IgM Ab Hep C IgG Ab 07/10/18 07/10/18 07/10/18 04:27 04:27 04:27 WBC RBC Hgb Hct MCV MCH MCHC RDW Plt Count MPV Prelim Diff (Auto) Neut % (Auto) Lymph % (Auto) Howard % (Auto) Eos % (Auto) Baso % (Auto) Neut # (Auto) Lymph # (Auto) Howard # (Auto) Eos # (Auto) Baso # (Auto) WBC Differential Seg Neuts % (Manual) Band Neuts % (Manual) Lymphocytes % (Manual) Monocytes % (Manual) Abs Neuts (Manual) Differential Comment Toxic Vacuolation Platelet Estimate Platelet Morphology ESR PT INR APTT 68.2 H D Fibrinogen Puncture Site Patient Temperature O2 Saturation ABG pH ABG pCO2 ABG pO2 ABG HCO3 ABG O2 Content ABG Base Excess ABG Methemoglobin Davide Test Hemoglobin Carboxyhemoglobin O2 Delivery Device Inspired O2 Critical Value Sodium 137 Potassium 4.6 Chloride 105 Carbon Dioxide 16.7 L Anion Gap 15 BUN 18 Creatinine 1.24 Estimated GFR 59 L Random Glucose 70 L Lactic Acid 8.0 H* Calcium 8.1 L Iron TIBC % Saturation Ferritin Total Bilirubin 3.8 H Direct Bilirubin Indirect Bilirubin AST 6909 H ALT 2815 H Alkaline Phosphatase 126 H Ammonia Troponin I C-Reactive Protein Total Protein 6.6 D Albumin 2.7 L Triglycerides Cholesterol LDL Cholesterol, Calc HDL Cholesterol Cholesterol/HDL Ratio Tumor Marker AFP Cortisol Urine Opiates Screen Ur Barbiturates Screen Ur Amphetamines Screen U Benzodiazepines Scrn Urine Cocaine Screen U Cannabinoids Screen Hepatitis A IgM Ab Hep Bs Antigen Hep B Core IgM Ab Hep C IgG Ab 07/10/18 07/10/18 07/10/18 07:44 11:15 11:15 WBC RBC Hgb Hct MCV MCH MCHC RDW Plt Count MPV Prelim Diff (Auto) Neut % (Auto) Lymph % (Auto) Howard % (Auto) Eos % (Auto) Baso % (Auto) Neut # (Auto) Lymph # (Auto) Howard # (Auto) Eos # (Auto) Baso # (Auto) WBC Differential Seg Neuts % (Manual) Band Neuts % (Manual) Lymphocytes % (Manual) Monocytes % (Manual) Abs Neuts (Manual) Differential Comment Toxic Vacuolation Platelet Estimate Platelet Morphology ESR PT INR APTT Cancelled Fibrinogen Puncture Site Right radial Patient Temperature 98.6 O2 Saturation 93 ABG pH 7.34 L ABG pCO2 32 L ABG pO2 88 ABG HCO3 16 L* ABG O2 Content 14.6 ABG Base Excess -8.4 L ABG Methemoglobin 1.1 Davide Test Present Hemoglobin 11.0 L Carboxyhemoglobin 0.7 O2 Delivery Device Room air Inspired O2 21 Critical Value Yes Sodium Potassium Chloride Carbon Dioxide Anion Gap BUN Creatinine Estimated GFR Random Glucose Lactic Acid Calcium Iron TIBC % Saturation Ferritin Total Bilirubin 4.0 H Direct Bilirubin 3.2 H Indirect Bilirubin 0.8 AST ALT Alkaline Phosphatase Ammonia Troponin I 7.39 H* C-Reactive Protein Total Protein Albumin Triglycerides Cholesterol LDL Cholesterol, Calc HDL Cholesterol Cholesterol/HDL Ratio Tumor Marker AFP Cortisol Urine Opiates Screen Ur Barbiturates Screen Ur Amphetamines Screen U Benzodiazepines Scrn Urine Cocaine Screen U Cannabinoids Screen Hepatitis A IgM Ab Hep Bs Antigen Hep B Core IgM Ab Hep C IgG Ab 07/10/18 07/10/18 07/10/18 11:15 11:15 11:15 WBC RBC Hgb Hct MCV MCH MCHC RDW Plt Count MPV Prelim Diff (Auto) Neut % (Auto) Lymph % (Auto) Howard % (Auto) Eos % (Auto) Baso % (Auto) Neut # (Auto) Lymph # (Auto) Howard # (Auto) Eos # (Auto) Baso # (Auto) WBC Differential Seg Neuts % (Manual) Band Neuts % (Manual) Lymphocytes % (Manual) Monocytes % (Manual) Abs Neuts (Manual) Differential Comment Toxic Vacuolation Platelet Estimate Platelet Morphology ESR PT INR APTT 51.8 H D Fibrinogen 274 Puncture Site Patient Temperature O2 Saturation ABG pH ABG pCO2 ABG pO2 ABG HCO3 ABG O2 Content ABG Base Excess ABG Methemoglobin Davide Test Hemoglobin Carboxyhemoglobin O2 Delivery Device Inspired O2 Critical Value Sodium Potassium Chloride Carbon Dioxide Anion Gap BUN Creatinine Estimated GFR Random Glucose Lactic Acid Calcium Iron TIBC % Saturation Ferritin Total Bilirubin Direct Bilirubin Indirect Bilirubin AST ALT Alkaline Phosphatase Ammonia Troponin I C-Reactive Protein Total Protein Albumin Triglycerides Cholesterol LDL Cholesterol, Calc HDL Cholesterol Cholesterol/HDL Ratio Tumor Marker AFP Cortisol 25.6 Urine Opiates Screen Ur Barbiturates Screen Ur Amphetamines Screen U Benzodiazepines Scrn Urine Cocaine Screen U Cannabinoids Screen Hepatitis A IgM Ab Hep Bs Antigen Hep B Core IgM Ab Hep C IgG Ab 07/10/18 07/10/18 11:15 11:15 WBC RBC Hgb Hct MCV MCH MCHC RDW Plt Count MPV Prelim Diff (Auto) Neut % (Auto) Lymph % (Auto) Howard % (Auto) Eos % (Auto) Baso % (Auto) Neut # (Auto) Lymph # (Auto) Howard # (Auto) Eos # (Auto) Baso # (Auto) WBC Differential Seg Neuts % (Manual) Band Neuts % (Manual) Lymphocytes % (Manual) Monocytes % (Manual) Abs Neuts (Manual) Differential Comment Toxic Vacuolation Platelet Estimate Platelet Morphology ESR PT 48.3 H D INR 4.8 APTT Fibrinogen Puncture Site Patient Temperature O2 Saturation ABG pH ABG pCO2 ABG pO2 ABG HCO3 ABG O2 Content ABG Base Excess ABG Methemoglobin Davide Test Hemoglobin Carboxyhemoglobin O2 Delivery Device Inspired O2 Critical Value Sodium Potassium Chloride Carbon Dioxide Anion Gap BUN Creatinine Estimated GFR Random Glucose Lactic Acid 9.1 H* Calcium Iron TIBC % Saturation Ferritin Total Bilirubin Direct Bilirubin Indirect Bilirubin AST ALT Alkaline Phosphatase Ammonia Troponin I C-Reactive Protein Total Protein Albumin Triglycerides Cholesterol LDL Cholesterol, Calc HDL Cholesterol Cholesterol/HDL Ratio Tumor Marker AFP Cortisol Urine Opiates Screen Ur Barbiturates Screen Ur Amphetamines Screen U Benzodiazepines Scrn Urine Cocaine Screen U Cannabinoids Screen Hepatitis A IgM Ab Hep Bs Antigen Hep B Core IgM Ab Hep C IgG Ab - Imaging Impressions Hepatobiliary Scan Nuclear Medicine 07/09/18 14:22 CONCLUSION: 1. No activity in intrahepatic ducts, common duct or small bowel. Considerations include include acute obstruction of the common duct and diffuse hepatocellular disease. 2. CT scan shows no dilatation of the common duct or intrahepatic ducts. Diffuse hepatocellular disease is suspected. Chest X-Ray 07/10/18 00:00 CONCLUSION: No acute cardiopulmonary abnormality is identified. Neck CTA 07/10/18 00:00 CONCLUSION: 1. 80% stenosis of the proximal right ICA. Left carotid and bilateral vertebral arteries are patent. 2. Emphysematous changes. Abdomen/Pelvis CTA 07/10/18 00:08 CONCLUSION: 1. 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 The SMA and MIC are patent. 2. Hepatic steatosis. 3. Emphysematous changes. Assessment and Plan - Plan Impression MRSA sepsis, source? Shock Known ETOH abuse and tobacco abuse Denies IVDU, admits to smoking cocaine ETOH liver disease ?GB problem Thrombocytopenia Recommendation Follow C/S Continue vanco and Zosyn for now May need LESLIE Repeat BC to document clearing Follow temps Monitor progress I will follow along with you Thank you for this consultation D/W RN
--- NOTE | 2018-07-10 13:59 | P.PNCA ---
Subjective Interval history: Patient denies any CP, pressure, palpitations, dizziness, edema or shortness of breath. Patient does complain of mild abdominal pain. Patient refused lab work this morning. Medications and Allergies Allergies Allergy/AdvReac Type Severity Reaction Status Date / Time No Known Allergies Allergy Verified 07/08/18 12:30 Home Medications Medication Instructions Recorded Confirmed Type No Known Home Medications 07/08/18 07/08/18 History Active Medications: Active Medications Al Hydroxide/Mg Hydroxide (Milk Of Pj White) 30 ml PO Q12H PRN PRN Reason: Mild Constipation Albuterol (Albuterol Neb (Prn)) 2.5 mg NEB Q2HR NEB PRN PRN Reason: DYSPNEA Albuterol (Duoneb Neb (Lynda)) 1 ampul NEB Q4HR NEB LYNDA Last Admin: 07/10/18 11:31 Dose: 1 ampul Flumazenil (Romazecon Inj) 0.2 mg IV.PUSH Q1M PRN PRN Reason: OVERSEDATION Haloperidol Lactate (Haldol Inj) 1 mg IV.PUSH Q15M PRN PRN Reason: for severe agitation Piperacillin/Tazobactam/Dextrose (Zosyn 3.375 Gm Premix) 50 mls @ 100 mls/hr IV.SIG Q6H LYNDA Last Infusion: 07/10/18 09:31 Dose: Infused Vancomycin HCl 1,250 mg/ (Sodium Chloride) 262.5 mls @ 250 mls/hr IV.SIG Q12H LYNDA Last Admin: 07/10/18 12:17 Dose: 250 mls/hr Multivitamins 10 ml/ Thiamine HCl 100 mg/ Folic Acid 1 mg/Sodium Chloride 511.2 mls @ 125 mls/hr IV.SIG Q24H LYNDA Stop: 07/12/18 12:06 Last Admin: 07/10/18 08:53 Dose: 125 mls/hr Phenylephrine HCl 160 mg/ (Sodium Chloride) 500 mls @ 7.5 mls/hr IV.CONT TITRATE PRN; Protocol PRN Reason: See protol Last Admin: 07/10/18 06:47 Dose: 40 mcg/min, 7.5 mls/hr Sodium Bicarbonate 150 meq/ (Sterile Water) 1,000 mls @ 150 mls/hr IV.CONT .Q6H40M LYNDA Last Admin: 07/10/18 06:47 Dose: 150 mls/hr Lactulose (Lactulose Liq) 30 ml PO DAILY PRN PRN Reason: SEVERE CONSITIPATION Lactulose (Lactulose Liq) 30 ml PO TID [facility] Last Admin: 07/10/18 12:17 Dose: 30 ml Lorazepam (Ativan) 1 mg PO Q4H PRN PRN Reason: for CIWA 8-10 Lorazepam (Ativan) 2 mg PO Q2H PRN PRN Reason: for CIWA 11-14 Lorazepam (Ativan Inj) 2 mg IV.PUSH Q2H PRN PRN Reason: for CIWA 11-14 Lorazepam (Ativan Inj) 2 mg IV.PUSH Q1H PRN PRN Reason: for CIWA 15-20 Lorazepam (Ativan Inj) 2 mg IV.PUSH Q15M PRN PRN Reason: for CIWA > 20 Lorazepam (Ativan Inj) 1 mg IV.PUSH Q4H PRN PRN Reason: for CIWA 8-10 Morphine Sulfate (Morphine Inj) 2 mg IV.PUSH Q4H PRN PRN Reason: BREAKTHROUGH PAIN Last Admin: 07/10/18 13:19 Dose: 2 mg Naloxone HCl (Narcan Inj) 0.4 mg IV.PUSH UNSCH PRN PRN Reason: SEE LABEL COMMENTS Ondansetron HCl (Zofran Inj) 4 mg IV.PUSH Q6H PRN PRN Reason: NAUSEA OR VOMITING Pantoprazole Sodium (Protonix Inj) 40 mg IV.PUSH DAILY [facility] Last Admin: 07/10/18 08:53 Dose: 40 mg Pharmacy Profile Note (Vancomycin Consult Pharmacy) 1 each OTHER UNSCH PRN PRN Reason: Pharmacy to dose Senna/Docusate Sodium (Lizzeth-Colace) 1 tab PO BID [facility] Last Admin: 07/10/18 08:53 Dose: 1 tab Sennosides (Senokot) 17.2 mg PO Q12H PRN PRN Reason: Moderate Constipation Sodium Chloride (Ns Flush) 2 ml IV.FLUSH PRN PRN PRN Reason: FLUSH AFTER USING IV ACCESS Sodium Chloride (Ns Flush) 2 ml IV.FLUSH BID [facility] Last Admin: 07/10/18 08:53 Dose: 2 ml Terbutaline Sulfate (Brethine Inj) 1 mg SQ UNSCH PRN PRN Reason: For Extravasation Physical Exam Vital signs: Vital Signs 07/09/18 16:00 07/09/18 20:00 07/10/18 00:00 Temperature 97.7 F 99.1 F 98.2 F Pulse Rate 105 H 123 H 127 H Respiratory Rate 18 18 18 Blood Pressure 115/60 123/95 H 98/51 L Pulse Oximetry 94 L 95 96 07/10/18 01:40 07/10/18 04:00 07/10/18 05:27 Temperature 98.4 F Pulse Rate 121 H 109 H Respiratory Rate 31 H 33 H Blood Pressure 105/56 L 98/57 L Pulse Oximetry 94 L 76 L 07/10/18 05:30 07/10/18 05:32 07/10/18 06:00 Temperature Pulse Rate 109 H 109 H 108 H Respiratory Rate 53 H 53 H 91 H Blood Pressure 96/49 L Pulse Oximetry 96 76 L 07/10/18 06:11 07/10/18 06:30 07/10/18 07:00 Temperature Pulse Rate 107 H 107 H 106 H Respiratory Rate 121 H 125 H 25 H Blood Pressure 85/51 L Pulse Oximetry 76 L 94 L 96 07/10/18 07:01 07/10/18 07:11 07/10/18 07:30 Temperature Pulse Rate 105 H 105 H Respiratory Rate 25 H 22 Blood Pressure 96/59 L 103/58 L Pulse Oximetry 97 96 07/10/18 07:58 07/10/18 08:00 07/10/18 08:11 Temperature Pulse Rate 102 H 106 H 106 H Respiratory Rate 18 18 29 H Blood Pressure 107/53 L Pulse Oximetry 07/10/18 08:30 07/10/18 08:49 07/10/18 09:11 Temperature Pulse Rate 106 H 112 H Respiratory Rate 28 H 45 H Blood Pressure 105/63 Pulse Oximetry 85 L 07/10/18 10:11 07/10/18 10:17 07/10/18 10:30 Temperature Pulse Rate 110 H 97 H Respiratory Rate Blood Pressure 106/54 L Pulse Oximetry 07/10/18 11:00 07/10/18 11:11 07/10/18 11:30 Temperature Pulse Rate 100 H 99 H 91 H Respiratory Rate 18 18 Blood Pressure 84/49 L Pulse Oximetry 89 L 07/10/18 11:32 07/10/18 11:45 07/10/18 12:00 Temperature 99.1 F Pulse Rate 101 H 99 H 102 H Respiratory Rate 25 H 18 Blood Pressure 93/68 L 98/69 L Pulse Oximetry 92 L Intake & Output 07/09/18 07/10/18 07/10/18 18:59 06:59 18:59 Intake Total 2220.5 / 2220.5 5772.5 / 5772.5 50 / 50 Output Total 250 / 250 90 / 90 Balance 1970.5 / 1970.5 5682.5 / 5682.5 50 / 50 Weight 61.2 kg Intake: IV 1620.5 / 1620.5 5772.5 / 5772.5 50 / 50 Heparin/D5W 25,000 U/250 mL 25, 28 / 28 000 unit In 250 ml @ Per Protocol IV.CONT TITRATE PRN Rx #:[id number] NS Inj 1,000 ML @ 150 mls/hr IV 1000 / 1000 2882 / 2882 .CONT .Q6H40M LYNDA Rx#:[id number] Zosyn 3.375 GM Premix 50 ML @ 100 / 100 100 / 100 50 / 50 100 mls/hr IV.SIG Q6H LYNDA Rx#: [id number] NS Inj 1,000 ML @ 1000 mls/hr 2000 / 2000 IV.SIG BOLUS LYNDA Rx#:[id number] NS Inj 500 ML @ 1000 mls/hr IV. 500 / 500 SIG BOLUS LYNDA Rx#:[id number] Vancomycin Inj 1,250 MG In NS 520.5 / 520.5 262.5 / 262.5 Inj 250 ML @ 250 mls/hr IV.SIG Q12H LYNDA Rx#:[id number] Oral 600 / 600 Output: Urine 250 / 250 90 / 90 Other: Date of Last Bowel Movement 07/08/18 07/08/18 - Constitutional no acute distress - Routine HEENT Exam Head: Present: normocephalic Eye: Present: EOMI ENT: Present: mucous membranes moist Comments: chronic dilation of the left pupil 6mm - Routine Neck Exam Present: supple - Routine Respiratory Exam Present: CTA bilaterally - Routine Cardiovascular Exam Present: S1, S2. Absent: murmur, gallop, rubs - Routine Abdominal Exam Present: normoactive bowel sounds, distended, guarding - Routine Extremities Exam Present: full ROM, pulses intact, normal capillary refill. Absent: cyanosis, clubbing, edema - Routine Skin Exam Present: intact - Routine Neurological Exam Present: oriented X3 - Detailed Neurological Exam: Coma Scale Eye Opening: Spontaneous Verbal Response: Oriented Motor Response: Obey commands Tamera Coma Scale Total: 15 - Routine Psychiatric Exam Present: agitated Results 07/10/18 04:27 07/10/18 13:56 Cardiac Enzymes 07/08/18 07/08/18 07/09/18 Range/Units 17:00 17:00 02:45 AST 276 H 2757 H (15-37) U/L Troponin I Less than 0.02 L Less than 0.02 L (0.02-0.05) ng/mL 07/09/18 07/09/18 07/09/18 Range/Units 07:40 13:40 20:17 AST (15-37) U/L Troponin I 0.06 H 0.51 H 1.66 H* (0.02-0.05) ng/mL 07/10/18 07/10/18 07/10/18 Range/Units 01:30 04:27 11:15 AST 6909 H (15-37) U/L Troponin I 1.11 H* 7.39 H* (0.02-0.05) ng/mL Coagulation 07/08/18 07/09/18 07/10/18 Range/Units 17:00 22:49 04:27 PT 15.7 H 36.5 H D (9.8-11.6) sec APTT 37.7 H 68.2 H D (23.4-31.7) sec 07/10/18 07/10/18 07/10/18 Range/Units 11:15 11:15 11:15 PT 48.3 H D (9.8-11.6) sec APTT Cancelled 51.8 H D (23.4-31.7) sec Lipids 07/09/18 Range/Units 20:17 Triglycerides 140 (42-150) mg/dL Cholesterol 50 L (120-200) mg/dL HDL Cholesterol 10.8 L (40.0-60.0) mg/dL Cholesterol/HDL Ratio 4.62 Ratio CBC 07/08/18 07/09/18 07/10/18 Range/Units 17:00 02:45 04:27 WBC 9.2 11.7 H 9.6 (4.0-11.0) th/mm3 RBC 4.47 L 4.23 L 3.65 L (4.50-5.90) mil/mm3 Hgb 15.3 14.1 12.2 L (13.0-17.0) gm/dL Hct 44.0 41.2 36.9 L (39.0-51.0) % Plt Count 53 L 52 L 55 L (150-450) th/mm3 Neut # (Auto) 7.9 H 10.0 H 8.6 H (1.8-7.7) th/mm3 Lymph # (Auto) 0.9 L 1.0 0.3 L (1.0-4.8) th/mm3 [place] # (Auto) 0.4 0.7 0.6 (0.0-0.9) th/mm3 Eos # (Auto) 0.0 0.0 0.0 (0.0-0.4) th/mm3 Baso # (Auto) 0.0 0.1 0.0 (0.0-0.2) th/mm3 Comprehensive Metabolic Panel 07/08/18 07/08/18 07/09/18 Range/Units 17:00 17:00 02:45 Sodium 134 L 136 (136-145) meq/L Potassium 4.0 4.7 (3.5-5.1) meq/L Chloride 99 101 (98-107) meq/L Carbon Dioxide 30.7 25.5 (21.0-32.0) meq/L BUN 11 13 (7-18) mg/dL Creatinine 0.68 0.87 (0.60-1.30) mg/dL Calcium 9.2 8.4 L D (8.5-10.1) mg/dL Direct Bilirubin 1.8 H (0.0-0.2) mg/dL Indirect Bilirubin 1.6 H (0.0-0.8) mg/dL AST 276 H 2757 H (15-37) U/L ALT 162 H 1098 H (12-78) U/L Alkaline Phosphatase 106 117 (45-117) U/L Total Protein 8.3 H 7.8 (6.4-8.2) g/dL Albumin 3.2 L 3.0 L (3.4-5.0) g/dL 07/10/18 07/10/18 Range/Units 04:27 11:15 Sodium 137 (136-145) meq/L Potassium 4.6 (3.5-5.1) meq/L Chloride 105 (98-107) meq/L Carbon Dioxide 16.7 L (21.0-32.0) meq/L BUN 18 (7-18) mg/dL Creatinine 1.24 (0.60-1.30) mg/dL Calcium 8.1 L (8.5-10.1) mg/dL Direct Bilirubin 3.2 H (0.0-0.2) mg/dL Indirect Bilirubin 0.8 (0.0-0.8) mg/dL AST 6909 H (15-37) U/L ALT 2815 H (12-78) U/L Alkaline Phosphatase 126 H (45-117) U/L Total Protein 6.6 D (6.4-8.2) g/dL Albumin 2.7 L (3.4-5.0) g/dL Intake and Output 07/09/18 07/10/18 07/10/18 22:59 06:59 14:59 Intake Total 1582 / 1582 4840.5 / 4840.5 50 / 50 Output Total 250 / 250 90 / 90 Balance 1332 / 1332 4750.5 / 4750.5 50 / 50 Intake: IV 982 / 982 4840.5 / 4840.5 50 / 50 Heparin/D5W 25,000 U/250 mL 25, 28 / 28 000 unit In 250 ml @ Per Protocol IV.CONT TITRATE PRN Rx #:[id number] NS Inj 1,000 ML @ 150 mls/hr IV 882 / 882 1999 .CONT .Q6H40M LYNDA Rx#:[id number] Zosyn 3.375 GM Premix 50 ML @ 100 / 100 50 / 50 50 / 50 100 mls/hr IV.SIG Q6H LYNDA Rx#: [id number] NS Inj 1,000 ML @ 1000 mls/hr 1999 IV.SIG BOLUS LYNDA Rx#:[id number] NS Inj 500 ML @ 1000 mls/hr IV. 500 / 500 SIG BOLUS LYNDA Rx#:[id number] Vancomycin Inj 1,250 MG In NS 262.5 / 262.5 Inj 250 ML @ 250 mls/hr IV.SIG Q12H LYNDA Rx#:[id number] Oral 600 / 600 Output: Urine 250 / 250 90 / 90 Other: Date of Last Bowel Movement 07/08/18 07/08/18 07/08/18 Weight 61.2 kg - Imaging and Cardiology Imaging: Impressions Head CT 07/08/18 17:06 CONCLUSION: 1. No acute intracranial abnormality. 2. Mild Atrophy. . Chest X-Ray 07/08/18 17:42 CONCLUSION: No evidence of acute cardiopulmonary disease. Elbow X-Ray 07/08/18 18:01 CONCLUSION: 1. Small, mildly displaced olecranon avulsion fracture fragments of the triceps insertion with associated soft tissue swelling. 2. Joint effusion. No perceptible intra-articular fracture. No subluxation. Abdomen/Pelvis CT 07/08/18 18:02 CONCLUSION: 1. Severe fatty infiltration of the liver. 2. Apparent pericholecystic fluid. Also fairly robust enhancement of the gallbladder mucosa. Please correlate clinically for any evidence of cholecystitis. No stones or ductal dilatation demonstrated. Gallbladder Ultrasound 07/08/18 18:53 CONCLUSION: 1. Small, nonspecific pericholecystic fluid without stones, wall thickening or sonographic Lundy's sign. The fluid may be on the basis of hepatocellular disease. The ultrasound does not support acute cholecystitis. 2. Fatty infiltrated and mildly enlarged liver. Carotid Doppler Study 07/09/18 00:00 CONCLUSION: 1. Right Internal Carotid Artery: Findings indicate >70% stenosis, but less than near occlusion. 2. Left Internal Carotid Artery: Findings indicate <50% stenosis. Chest X-Ray 07/09/18 00:39 CONCLUSION: Negative examination. Hepatobiliary Scan Nuclear Medicine 07/09/18 14:22 CONCLUSION: 1. No activity in intrahepatic ducts, common duct or small bowel. Considerations include include acute obstruction of the common duct and diffuse hepatocellular disease. 2. CT scan shows no dilatation of the common duct or intrahepatic ducts. Diffuse hepatocellular disease is suspected. Chest X-Ray 07/10/18 00:00 CONCLUSION: No acute cardiopulmonary abnormality is identified. Neck CTA 07/10/18 00:00 CONCLUSION: 1. 80% stenosis of the proximal right ICA. Left carotid and bilateral vertebral arteries are patent. 2. Emphysematous changes. Abdomen/Pelvis CTA 07/10/18 00:08 CONCLUSION: 1. 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 The SMA and MIC are patent. 2. Hepatic steatosis. 3. Emphysematous changes. Assessment and Plan - Assessment (1) Chest pain Code(s): R07.9 - Chest pain, unspecified Status: Acute (2) Elevated troponin level Code(s): R74.8 - Abnormal levels of other serum enzymes Status: Acute (3) Liver failure Code(s): K72.90 - Hepatic failure, unspecified without coma Status: Acute (4) Hyperbilirubinemia Code(s): E80.6 - Other disorders of bilirubin metabolism Status: Acute - Plan Patient positive for S. aureus in the blood, ID evaluation in progress. Patient has elevated liver enzymes, GI evaluation in progress. Patient has high grade stenosis in the right carotid artery, vascular surgery has been consulted. Troponin levels are significantly increased, c/w NSTEMI, we will schedule cardiac catheterization and PCI if necessary for tomorrow. Keep patient NPO after MN except for medications. Have consent signed and placed on chart, cardiac catheterization with possible angioplasty and stent placement. Cardiac cath risk factors, which include but not limited to: bleeding and infection at insertion site, damage to the coronary arteries, heart attack, acute kidney injury, stroke and/or possible , were discussed with patient at bedside. Patient verbalized understanding and wishes to proceed with catheterization. Continue to monitor patient on telemetry. The patient was seen and evaluated by Dr. Gonzalze who participated in care, management and decision making. - Attending Attestation Patient seen and examined. I reviewed and agree with the evaluation and plan as presented. Troponin elevated, c/w NSTEMI. Proceed with cath and PCI if necessary tomorrow.
[2018-07-10 14:34] LABS: Calcium 7.5 mg/dL (8.5-10.1); Carbon Dioxide 17.8 meq/L (21.0-32.0); Potassium 4.1 meq/L (3.5-5.1)
[2018-07-10 14:45] LABS: Troponin I 9.95 ng/mL (0.02-0.05)
[2018-07-10] MEDS ORDERED: Sod Chloride 0.9% Inj 1,000 ML IV.SIG ONE (15:00)
--- NOTE | 2018-07-10 15:15 | ECHRPT ---
Indication: CHEST PAIN CONCLUSIONS Normal left ventricular size. Wall thickness is normal. The left ventricular systolic function is normal with an estimated ejection fraction in the range of 55-60%. There is trace tricuspid valve regurgitation. The estimated pulmonary arterial pressure is 13 mmHg. BP: / HR: Rhythm: Sinus MEASUREMENTS (Male / Female) Normal Values Technical Quality:Fair 2D ECHO LV Diastolic Diameter PLAX 4.2 cm 4.2 - 5.9 / 3.9 - 5.3 cm LV Systolic Diameter PLAX 3.0 cm IVS Diastolic Thickness 0.9 cm 0.6 - 1.0 / 0.6 - 0.9 cm LVPW Diastolic Thickness 0.8 cm 0.6 - 1.0 / 0.6 - 0.9 cm LV Relative Wall Thickness 0.4 RV Internal Dim ED PLAX 3.0 cm LVOT Diameter 1.9 cm Aortic Root Diameter 3.0 cm LA Systolic Diameter LX 2.6 cm 3.0 - 4.0 / 2.7 - 3.8 cm M-MODE AV Cusp Separation MM 1.8 cm DOPPLER AV Peak Velocity 134.0 cm/s AV Peak Gradient 7.2 mmHg LVOT Peak Velocity 101.0 cm/s LVOT Peak Gradient 4.1 mmHg AV Area Cont Eq pk 2.1 cm MV Peak Velocity 103.0 cm/s MV Peak Gradient 4.2 mmHg MV Mean Velocity 73.8 cm/s MV Mean Gradient 2.0 mmHg Mitral E Point Velocity 105.0 cm/s Mitral A Point Velocity 90.8 cm/s Mitral E to A Ratio 1.2 LV E' Lateral Velocity 10.1 cm/s Mitral E to LV E' Lateral Ratio 10.4 LV E' Septal Velocity 9.8 cm/s Mitral E to LV E' Septal Ratio 10.8 TR Peak Velocity 86.9 cm/s TR Peak Gradient 3.0 mmHg Right Atrial Pressure 10.0 mmHg Pulmonary Artery Systolic Pressu 13.0 mmHg Right Ventricular Systolic Press 13.0 mmHg FINDINGS LEFT VENTRICLE Normal left ventricular size. Wall thickness is normal. The left ventricular systolic function is normal with an estimated ejection fraction in the range of 55-60%. RIGHT VENTRICLE Normal right ventricular size and systolic function. LEFT ATRIUM The left atrial size is normal. RIGHT ATRIUM The right atrial size is normal. ATRIAL SEPTUM Normal atrial septal thickness without atrial level shunting by limited color doppler interrogation. AORTA The aortic root and proximal ascending aorta are normal in size on limited imaging. MITRAL VALVE Structurally normal mitral valve. No mitral valve stenosis or regurgitation. AORTIC VALVE Trileaflet aortic valve. No aortic valve stenosis or regurgitation. TRICUSPID VALVE There is trace tricuspid valve regurgitation. The estimated pulmonary arterial pressure is 13 mmHg. PULMONARY VALVE No pulmonary valve regurgitation or stenosis. VESSELS The inferior vena cava is normal in size. PERICARDIUM No pericardial effusion. Raz Short MD, FACC, [facility] [place] (Electronically Signed) Final Date:10 July 2018 15:14
--- NOTE | 2018-07-10 15:46 | P.PNGI ---
Subjective Interval history: Pt is resting in bed. Complaining of diffuse abdominal pain. Denies nausea, vomiting. Tolerating clear liquid diet. Has had 2 BMs today, no evidence of bleeding. Pt transferred to [facility] overnight for hypotension, now on Talon gtt. Also with elevated troponins, cardiology is following and planning for cardiac cath tomorrow. ID following for MRSA bacteremia. Vascular surgery following for carotid artery stenosis. Physical Exam Vital signs: Vital Signs 07/09/18 16:00 07/09/18 20:00 07/10/18 00:00 Temperature 97.7 F 99.1 F 98.2 F Pulse Rate 105 H 123 H 127 H Respiratory Rate 18 18 18 Blood Pressure 115/60 123/95 H 98/51 L Pulse Oximetry 94 L 95 96 07/10/18 01:40 07/10/18 04:00 07/10/18 05:27 Temperature 98.4 F Pulse Rate 121 H 109 H Respiratory Rate 31 H 33 H Blood Pressure 105/56 L 98/57 L Pulse Oximetry 94 L 76 L 07/10/18 05:30 07/10/18 05:32 07/10/18 06:00 Temperature Pulse Rate 109 H 109 H 108 H Respiratory Rate 53 H 53 H 91 H Blood Pressure 96/49 L Pulse Oximetry 96 76 L 07/10/18 06:11 07/10/18 06:30 07/10/18 07:00 Temperature Pulse Rate 107 H 107 H 106 H Respiratory Rate 121 H 125 H 25 H Blood Pressure 85/51 L Pulse Oximetry 76 L 94 L 96 07/10/18 07:01 07/10/18 07:11 07/10/18 07:30 Temperature Pulse Rate 105 H 105 H Respiratory Rate 25 H 22 Blood Pressure 96/59 L 103/58 L Pulse Oximetry 97 96 07/10/18 07:58 07/10/18 08:00 07/10/18 08:11 Temperature Pulse Rate 102 H 106 H 106 H Respiratory Rate 18 18 29 H Blood Pressure 107/53 L Pulse Oximetry 07/10/18 08:30 07/10/18 08:49 07/10/18 09:11 Temperature Pulse Rate 106 H 112 H Respiratory Rate 28 H 45 H Blood Pressure 105/63 Pulse Oximetry 85 L 07/10/18 10:11 07/10/18 10:17 07/10/18 10:30 Temperature Pulse Rate 110 H 97 H Respiratory Rate Blood Pressure 106/54 L Pulse Oximetry 07/10/18 11:00 07/10/18 11:11 07/10/18 11:30 Temperature Pulse Rate 100 H 99 H 91 H Respiratory Rate 18 18 Blood Pressure 84/49 L Pulse Oximetry 89 L 07/10/18 11:32 07/10/18 11:45 07/10/18 12:00 Temperature 99.1 F Pulse Rate 101 H 99 H 102 H Respiratory Rate 25 H 18 Blood Pressure 93/68 L 98/69 L Pulse Oximetry 92 L Intake & Output 07/09/18 07/10/18 07/10/18 18:59 06:59 18:59 Intake Total 2220.5 / 2220.5 5772.5 / 5772.5 823.7 / 823.7 Output Total 250 / 250 90 / 90 Balance 1970.5 / 1970.5 5682.5 / 5682.5 823.7 / 823.7 Weight 61.2 kg Intake: IV 1620.5 / 1620.5 5772.5 / 5772.5 823.7 / 823.7 Heparin/D5W 25,000 U/250 mL 25, 28 / 28 000 unit In 250 ml @ Per Protocol IV.CONT TITRATE PRN Rx #:[id number] NS Inj 1,000 ML @ 150 mls/hr IV 1000 / 1000 2882 / 2882 .CONT .Q6H40M [facility] Rx#:[id number] MVI-12 Inj 10 ML Thiamine Inj 511.2 / 511.2 100 MG Folvite Inj 1 MG In NS Inj 500 ML @ 125 mls/hr IV.SIG Q24H [facility] Rx#:[id number] Zosyn 3.375 GM Premix 50 ML @ 100 / 100 100 / 100 50 / 50 100 mls/hr IV.SIG Q6H [facility] Rx#: [id number] NS Inj 1,000 ML @ 1000 mls/hr 1999 / 1999 IV.SIG BOLUS [facility] Rx#:[id number] NS Inj 500 ML @ 1000 mls/hr IV. 500 / 500 SIG BOLUS [facility] Rx#:[id number] Vancomycin Inj 1,250 MG In NS 520.5 / 520.5 262.5 / 262.5 Inj 250 ML @ 250 mls/hr IV.SIG Q12H [facility] Rx#:[id number] Oral 600 / 600 Output: Urine 250 / 250 90 / 90 Other: Date of Last Bowel Movement 07/08/18 07/08/18 - Constitutional no acute distress - Routine HEENT Exam Head: Present: normocephalic, atraumatic - Routine Respiratory Exam Absent: accessory muscle use - Routine Abdominal Exam Present: soft, normoactive bowel sounds, tenderness (diffusely tender ), distended (mildly distended ) - Routine Skin Exam Present: dry, warm - Routine Neurological Exam Present: alert, oriented X3 Results - Labs CBC & Chem 7: 07/10/18 04:27 07/10/18 13:56 Laboratory Results - last 24 hr 07/09/18 07/09/18 07/09/18 18:05 20:17 20:17 WBC RBC Hgb Hct MCV MCH MCHC RDW Plt Count MPV Prelim Diff (Auto) Neut % (Auto) Lymph % (Auto) Mora % (Auto) Eos % (Auto) Baso % (Auto) Neut # (Auto) Lymph # (Auto) Mora # (Auto) Eos # (Auto) Baso # (Auto) WBC Differential Seg Neuts % (Manual) Band Neuts % (Manual) Lymphocytes % (Manual) Monocytes % (Manual) Abs Neuts (Manual) Differential Comment Toxic Vacuolation Platelet Estimate Platelet Morphology ESR PT INR APTT Fibrinogen Puncture Site Patient Temperature O2 Saturation ABG pH ABG pCO2 ABG pO2 ABG HCO3 ABG O2 Content ABG Base Excess ABG Methemoglobin Davide Test Hemoglobin Carboxyhemoglobin O2 Delivery Device Inspired O2 Critical Value Sodium Potassium Chloride Carbon Dioxide Anion Gap BUN Creatinine Estimated GFR Random Glucose Lactic Acid 4.0 H Calcium Iron TIBC % Saturation Ferritin Total Bilirubin Direct Bilirubin Indirect Bilirubin AST ALT Alkaline Phosphatase Ammonia Troponin I C-Reactive Protein Total Protein Albumin Triglycerides Cholesterol LDL Cholesterol, Calc HDL Cholesterol Cholesterol/HDL Ratio Amylase Tumor Marker AFP Cortisol Urine Opiates Screen Pos H Ur Barbiturates Screen Neg Ur Amphetamines Screen Neg U Benzodiazepines Scrn Neg Urine Cocaine Screen Pos H U Cannabinoids Screen Neg Hepatitis A IgM Ab Nonreactive Hep Bs Antigen Nonreactive Hep B Core IgM Ab Nonreactive Hep C IgG Ab Nonreactive 07/09/18 07/09/18 07/09/18 20:17 20:17 20:17 WBC RBC Hgb Hct MCV MCH MCHC RDW Plt Count MPV Prelim Diff (Auto) Neut % (Auto) Lymph % (Auto) Mora % (Auto) Eos % (Auto) Baso % (Auto) Neut # (Auto) Lymph # (Auto) Mora # (Auto) Eos # (Auto) Baso # (Auto) WBC Differential Seg Neuts % (Manual) Band Neuts % (Manual) Lymphocytes % (Manual) Monocytes % (Manual) Abs Neuts (Manual) Differential Comment Toxic Vacuolation Platelet Estimate Platelet Morphology ESR PT INR APTT Fibrinogen Puncture Site Patient Temperature O2 Saturation ABG pH ABG pCO2 ABG pO2 ABG HCO3 ABG O2 Content ABG Base Excess ABG Methemoglobin Davide Test Hemoglobin Carboxyhemoglobin O2 Delivery Device Inspired O2 Critical Value Sodium Potassium Chloride Carbon Dioxide Anion Gap BUN Creatinine Estimated GFR Random Glucose Lactic Acid Calcium Iron 123 TIBC 217 L % Saturation 56.7 H Ferritin 9759 H Total Bilirubin Direct Bilirubin Indirect Bilirubin AST ALT Alkaline Phosphatase Ammonia 64 H Troponin I C-Reactive Protein Total Protein Albumin Triglycerides 140 Cholesterol 50 L LDL Cholesterol, Calc 11 HDL Cholesterol 10.8 L Cholesterol/HDL Ratio 4.62 Amylase Tumor Marker AFP 3.7 Cortisol Urine Opiates Screen Ur Barbiturates Screen Ur Amphetamines Screen U Benzodiazepines Scrn Urine Cocaine Screen U Cannabinoids Screen Hepatitis A IgM Ab Hep Bs Antigen Hep B Core IgM Ab Hep C IgG Ab 07/09/18 07/09/18 07/09/18 20:17 20:17 20:17 WBC RBC Hgb Hct MCV MCH MCHC RDW Plt Count MPV Prelim Diff (Auto) Neut % (Auto) Lymph % (Auto) Mora % (Auto) Eos % (Auto) Baso % (Auto) Neut # (Auto) Lymph # (Auto) Mora # (Auto) Eos # (Auto) Baso # (Auto) WBC Differential Seg Neuts % (Manual) Band Neuts % (Manual) Lymphocytes % (Manual) Monocytes % (Manual) Abs Neuts (Manual) Differential Comment Toxic Vacuolation Platelet Estimate Platelet Morphology ESR 37 H PT INR APTT Fibrinogen Puncture Site Patient Temperature O2 Saturation ABG pH ABG pCO2 ABG pO2 ABG HCO3 ABG O2 Content ABG Base Excess ABG Methemoglobin Davide Test Hemoglobin Carboxyhemoglobin O2 Delivery Device Inspired O2 Critical Value Sodium Potassium Chloride Carbon Dioxide Anion Gap BUN Creatinine Estimated GFR Random Glucose Lactic Acid Calcium Iron TIBC % Saturation Ferritin Total Bilirubin Direct Bilirubin Indirect Bilirubin AST ALT Alkaline Phosphatase Ammonia Troponin I 1.66 H* C-Reactive Protein 5.70 H Total Protein Albumin Triglycerides Cholesterol LDL Cholesterol, Calc HDL Cholesterol Cholesterol/HDL Ratio Amylase Tumor Marker AFP Cortisol Urine Opiates Screen Ur Barbiturates Screen Ur Amphetamines Screen U Benzodiazepines Scrn Urine Cocaine Screen U Cannabinoids Screen Hepatitis A IgM Ab Hep Bs Antigen Hep B Core IgM Ab Hep C IgG Ab 07/09/18 07/09/18 07/10/18 22:49 22:49 01:30 WBC RBC Hgb Hct MCV MCH MCHC RDW Plt Count MPV Prelim Diff (Auto) Neut % (Auto) Lymph % (Auto) Mora % (Auto) Eos % (Auto) Baso % (Auto) Neut # (Auto) Lymph # (Auto) Mora # (Auto) Eos # (Auto) Baso # (Auto) WBC Differential Seg Neuts % (Manual) Band Neuts % (Manual) Lymphocytes % (Manual) Monocytes % (Manual) Abs Neuts (Manual) Differential Comment Toxic Vacuolation Platelet Estimate Platelet Morphology ESR PT 36.5 H D INR 3.6 APTT 37.7 H Fibrinogen Puncture Site Patient Temperature O2 Saturation ABG pH ABG pCO2 ABG pO2 ABG HCO3 ABG O2 Content ABG Base Excess ABG Methemoglobin Davide Test Hemoglobin Carboxyhemoglobin O2 Delivery Device Inspired O2 Critical Value Sodium Potassium Chloride Carbon Dioxide Anion Gap BUN Creatinine Estimated GFR Random Glucose Lactic Acid 5.1 H* Calcium Iron TIBC % Saturation Ferritin Total Bilirubin Direct Bilirubin Indirect Bilirubin AST ALT Alkaline Phosphatase Ammonia Troponin I 1.11 H* C-Reactive Protein Total Protein Albumin Triglycerides Cholesterol LDL Cholesterol, Calc HDL Cholesterol Cholesterol/HDL Ratio Amylase Tumor Marker AFP Cortisol Urine Opiates Screen Ur Barbiturates Screen Ur Amphetamines Screen U Benzodiazepines Scrn Urine Cocaine Screen U Cannabinoids Screen Hepatitis A IgM Ab Hep Bs Antigen Hep B Core IgM Ab Hep C IgG Ab 07/10/18 07/10/18 07/10/18 01:30 04:27 04:27 WBC 9.6 RBC 3.65 L Hgb 12.2 L Hct 36.9 L MCV 101.2 H D MCH 33.5 MCHC 33.1 RDW 13.2 Plt Count 55 L MPV 11.1 H Prelim Diff (Auto) Slide review pending Neut % (Auto) 89.9 H Lymph % (Auto) 3.4 L Mora % (Auto) 6.5 Eos % (Auto) 0.1 Baso % (Auto) 0.1 Neut # (Auto) 8.6 H Lymph # (Auto) 0.3 L Mora # (Auto) 0.6 Eos # (Auto) 0.0 Baso # (Auto) 0.0 WBC Differential Manual diff final Seg Neuts % (Manual) 79 H Band Neuts % (Manual) 7 H Lymphocytes % (Manual) 4 L Monocytes % (Manual) 10 H Abs Neuts (Manual) 8.3 H Differential Comment . Toxic Vacuolation Present H Platelet Estimate Low L Platelet Morphology Normal ESR PT INR APTT Fibrinogen Puncture Site Patient Temperature O2 Saturation ABG pH ABG pCO2 ABG pO2 ABG HCO3 ABG O2 Content ABG Base Excess ABG Methemoglobin Davide Test Hemoglobin Carboxyhemoglobin O2 Delivery Device Inspired O2 Critical Value Sodium 137 Potassium 4.6 Chloride 105 Carbon Dioxide 16.7 L Anion Gap 15 BUN 18 Creatinine 1.24 Estimated GFR 59 L Random Glucose 70 L Lactic Acid 6.2 H* Calcium 8.1 L Iron TIBC % Saturation Ferritin Total Bilirubin 3.8 H Direct Bilirubin Indirect Bilirubin AST 6909 H ALT 2815 H Alkaline Phosphatase 126 H Ammonia Troponin I C-Reactive Protein Total Protein 6.6 D Albumin 2.7 L Triglycerides Cholesterol LDL Cholesterol, Calc HDL Cholesterol Cholesterol/HDL Ratio Amylase Tumor Marker AFP Cortisol Urine Opiates Screen Ur Barbiturates Screen Ur Amphetamines Screen U Benzodiazepines Scrn Urine Cocaine Screen U Cannabinoids Screen Hepatitis A IgM Ab Hep Bs Antigen Hep B Core IgM Ab Hep C IgG Ab 07/10/18 07/10/18 07/10/18 04:27 04:27 07:44 WBC RBC Hgb Hct MCV MCH MCHC RDW Plt Count MPV Prelim Diff (Auto) Neut % (Auto) Lymph % (Auto) Mora % (Auto) Eos % (Auto) Baso % (Auto) Neut # (Auto) Lymph # (Auto) Mora # (Auto) Eos # (Auto) Baso # (Auto) WBC Differential Seg Neuts % (Manual) Band Neuts % (Manual) Lymphocytes % (Manual) Monocytes % (Manual) Abs Neuts (Manual) Differential Comment Toxic Vacuolation Platelet Estimate Platelet Morphology ESR PT INR APTT 68.2 H D Fibrinogen Puncture Site Right radial Patient Temperature 98.6 O2 Saturation 93 ABG pH 7.34 L ABG pCO2 32 L ABG pO2 88 ABG HCO3 16 L* ABG O2 Content 14.6 ABG Base Excess -8.4 L ABG Methemoglobin 1.1 Davide Test Present Hemoglobin 11.0 L Carboxyhemoglobin 0.7 O2 Delivery Device Room air Inspired O2 21 Critical Value Yes Sodium Potassium Chloride Carbon Dioxide Anion Gap BUN Creatinine Estimated GFR Random Glucose Lactic Acid 8.0 H* Calcium Iron TIBC % Saturation Ferritin Total Bilirubin Direct Bilirubin Indirect Bilirubin AST ALT Alkaline Phosphatase Ammonia Troponin I C-Reactive Protein Total Protein Albumin Triglycerides Cholesterol LDL Cholesterol, Calc HDL Cholesterol Cholesterol/HDL Ratio Amylase Tumor Marker AFP Cortisol Urine Opiates Screen Ur Barbiturates Screen Ur Amphetamines Screen U Benzodiazepines Scrn Urine Cocaine Screen U Cannabinoids Screen Hepatitis A IgM Ab Hep Bs Antigen Hep B Core IgM Ab Hep C IgG Ab 07/10/18 07/10/18 07/10/18 11:15 11:15 11:15 WBC RBC Hgb Hct MCV MCH MCHC RDW Plt Count MPV Prelim Diff (Auto) Neut % (Auto) Lymph % (Auto) Mora % (Auto) Eos % (Auto) Baso % (Auto) Neut # (Auto) Lymph # (Auto) Mora # (Auto) Eos # (Auto) Baso # (Auto) WBC Differential Seg Neuts % (Manual) Band Neuts % (Manual) Lymphocytes % (Manual) Monocytes % (Manual) Abs Neuts (Manual) Differential Comment Toxic Vacuolation Platelet Estimate Platelet Morphology ESR PT INR APTT Cancelled 51.8 H D Fibrinogen Puncture Site Patient Temperature O2 Saturation ABG pH ABG pCO2 ABG pO2 ABG HCO3 ABG O2 Content ABG Base Excess ABG Methemoglobin Davide Test Hemoglobin Carboxyhemoglobin O2 Delivery Device Inspired O2 Critical Value Sodium Potassium Chloride Carbon Dioxide Anion Gap BUN Creatinine Estimated GFR Random Glucose Lactic Acid Calcium Iron TIBC % Saturation Ferritin Total Bilirubin 4.0 H Direct Bilirubin 3.2 H Indirect Bilirubin 0.8 AST ALT Alkaline Phosphatase Ammonia Troponin I 7.39 H* C-Reactive Protein Total Protein Albumin Triglycerides Cholesterol LDL Cholesterol, Calc HDL Cholesterol Cholesterol/HDL Ratio Amylase Tumor Marker AFP Cortisol Urine Opiates Screen Ur Barbiturates Screen Ur Amphetamines Screen U Benzodiazepines Scrn Urine Cocaine Screen U Cannabinoids Screen Hepatitis A IgM Ab Hep Bs Antigen Hep B Core IgM Ab Hep C IgG Ab 07/10/18 07/10/18 07/10/18 11:15 11:15 11:15 WBC RBC Hgb Hct MCV MCH MCHC RDW Plt Count MPV Prelim Diff (Auto) Neut % (Auto) Lymph % (Auto) Mora % (Auto) Eos % (Auto) Baso % (Auto) Neut # (Auto) Lymph # (Auto) Mora # (Auto) Eos # (Auto) Baso # (Auto) WBC Differential Seg Neuts % (Manual) Band Neuts % (Manual) Lymphocytes % (Manual) Monocytes % (Manual) Abs Neuts (Manual) Differential Comment Toxic Vacuolation Platelet Estimate Platelet Morphology ESR PT INR APTT Fibrinogen 274 Puncture Site Patient Temperature O2 Saturation ABG pH ABG pCO2 ABG pO2 ABG HCO3 ABG O2 Content ABG Base Excess ABG Methemoglobin Davide Test Hemoglobin Carboxyhemoglobin O2 Delivery Device Inspired O2 Critical Value Sodium Potassium Chloride Carbon Dioxide Anion Gap BUN Creatinine Estimated GFR Random Glucose Lactic Acid 9.1 H* Calcium Iron TIBC % Saturation Ferritin Total Bilirubin Direct Bilirubin Indirect Bilirubin AST ALT Alkaline Phosphatase Ammonia Troponin I C-Reactive Protein Total Protein Albumin Triglycerides Cholesterol LDL Cholesterol, Calc HDL Cholesterol Cholesterol/HDL Ratio Amylase Tumor Marker AFP Cortisol 25.6 Urine Opiates Screen Ur Barbiturates Screen Ur Amphetamines Screen U Benzodiazepines Scrn Urine Cocaine Screen U Cannabinoids Screen Hepatitis A IgM Ab Hep Bs Antigen Hep B Core IgM Ab Hep C IgG Ab 07/10/18 07/10/18 07/10/18 11:15 13:56 13:56 WBC RBC Hgb Hct MCV MCH MCHC RDW Plt Count MPV Prelim Diff (Auto) Neut % (Auto) Lymph % (Auto) Mora % (Auto) Eos % (Auto) Baso % (Auto) Neut # (Auto) Lymph # (Auto) Mora # (Auto) Eos # (Auto) Baso # (Auto) WBC Differential Seg Neuts % (Manual) Band Neuts % (Manual) Lymphocytes % (Manual) Monocytes % (Manual) Abs Neuts (Manual) Differential Comment Toxic Vacuolation Platelet Estimate Platelet Morphology ESR PT 48.3 H D INR 4.8 APTT Fibrinogen Puncture Site Patient Temperature O2 Saturation ABG pH ABG pCO2 ABG pO2 ABG HCO3 ABG O2 Content ABG Base Excess ABG Methemoglobin Davide Test Hemoglobin Carboxyhemoglobin O2 Delivery Device Inspired O2 Critical Value Sodium 141 Potassium 4.1 Chloride 106 Carbon Dioxide 17.8 L Anion Gap 17 H BUN 22 H Creatinine 1.85 H Estimated GFR 37 L Random Glucose 118 H Lactic Acid 9.9 H* Calcium 7.5 L Iron TIBC % Saturation Ferritin Total Bilirubin Direct Bilirubin Indirect Bilirubin AST ALT Alkaline Phosphatase Ammonia Troponin I 9.95 H* C-Reactive Protein Total Protein Albumin Triglycerides Cholesterol LDL Cholesterol, Calc HDL Cholesterol Cholesterol/HDL Ratio Amylase 66 Tumor Marker AFP Cortisol Urine Opiates Screen Ur Barbiturates Screen Ur Amphetamines Screen U Benzodiazepines Scrn Urine Cocaine Screen U Cannabinoids Screen Hepatitis A IgM Ab Hep Bs Antigen Hep B Core IgM Ab Hep C IgG Ab 07/10/18 13:56 WBC RBC Hgb Hct MCV MCH MCHC RDW Plt Count MPV Prelim Diff (Auto) Neut % (Auto) Lymph % (Auto) Mora % (Auto) Eos % (Auto) Baso % (Auto) Neut # (Auto) Lymph # (Auto) Mora # (Auto) Eos # (Auto) Baso # (Auto) WBC Differential Seg Neuts % (Manual) Band Neuts % (Manual) Lymphocytes % (Manual) Monocytes % (Manual) Abs Neuts (Manual) Differential Comment Toxic Vacuolation Platelet Estimate Platelet Morphology ESR PT INR APTT Fibrinogen Puncture Site Patient Temperature O2 Saturation ABG pH ABG pCO2 ABG pO2 ABG HCO3 ABG O2 Content ABG Base Excess ABG Methemoglobin Davide Test Hemoglobin Carboxyhemoglobin O2 Delivery Device Inspired O2 Critical Value Sodium Potassium Chloride Carbon Dioxide Anion Gap BUN Creatinine Estimated GFR Random Glucose Lactic Acid Calcium Iron TIBC % Saturation Ferritin Total Bilirubin Direct Bilirubin Indirect Bilirubin AST ALT Alkaline Phosphatase Ammonia Troponin I Cancelled C-Reactive Protein Total Protein Albumin Triglycerides Cholesterol LDL Cholesterol, Calc HDL Cholesterol Cholesterol/HDL Ratio Amylase Tumor Marker AFP Cortisol Urine Opiates Screen Ur Barbiturates Screen Ur Amphetamines Screen U Benzodiazepines Scrn Urine Cocaine Screen U Cannabinoids Screen Hepatitis A IgM Ab Hep Bs Antigen Hep B Core IgM Ab Hep C IgG Ab Microbiology 07/08/18 19:30 Blood - Peripheral Aerobic Blood Culture - Preliminary S. aureus MRSA 07/08/18 19:30 Blood - Peripheral Anaerobic Blood Culture - Preliminary S. aureus MRSA 07/08/18 19:35 Blood - Peripheral Aerobic Blood Culture - Preliminary S. aureus MRSA 07/08/18 19:35 Blood - Peripheral Anaerobic Blood Culture - Preliminary gram positive cocci - Imaging Impressions Hepatobiliary Scan Nuclear Medicine 07/09/18 14:22 CONCLUSION: 1. No activity in intrahepatic ducts, common duct or small bowel. Considerations include include acute obstruction of the common duct and diffuse hepatocellular disease. 2. CT scan shows no dilatation of the common duct or intrahepatic ducts. Diffuse hepatocellular disease is suspected. Chest X-Ray 07/10/18 00:00 CONCLUSION: No acute cardiopulmonary abnormality is identified. Neck CTA 07/10/18 00:00 CONCLUSION: 1. 80% stenosis of the proximal right ICA. Left carotid and bilateral vertebral arteries are patent. 2. Emphysematous changes. Abdomen/Pelvis CTA 07/10/18 00:08 CONCLUSION: 1. 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 The SMA and MIC are patent. 2. Hepatic steatosis. 3. Emphysematous changes. Assessment and Plan (1) Liver failure Status: Acute Code(s): K72.90 - Hepatic failure, unspecified without coma (2) Hyperbilirubinemia Status: Acute Code(s): E80.6 - Other disorders of bilirubin metabolism - Plan Assessment: - Elevated LFTs with findings indicative of cirrhosis He denies IV drug use, tattoos or any high risk sexual behaviors. Denies personal or family history of liver issues. Does admit to smoking cocaine. Patient states he smokes 1 pack/day and drinks a sixpack of beer daily. LFTs trending up since admission. Pt was transferred to [facility] overnight after becoming hypotensive, now on a Talon gtt. Liver work up: BOBBY, ASMA, AMA pending. Ceruloplasmin pending. AAT pending. AFP-3.7. Iron-123 TIBC-217 %sat-56.7 Ferritin-9759 Hepatitis panel negative. 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 The SMA and MIC are patent. Hepatic steatosis. HIDA (07/09) No activity in intrahepatic ducts, common duct or small bowel. Considerations include include acute obstruction of the common duct and diffuse hepatocellular disease. CT scan shows no dilatation of the common duct or intrahepatic ducts. Diffuse hepatocellular disease is suspected. Given history of cirrhosis, exam is unreliable, do not suspect acute cholecystitis. US gallbladder (07/08) Small, nonspecific pericholecystic fluid without stones , wall thickening or sonographic Lundy's sign. The fluid may be on the basis of hepatocellular disease. The ultrasound does not support acute cholecystitis. Fatty infiltrated and mildly enlarged liver. - Anemia- He denies ever having had a EGD or colonoscopy in the past. No obvious bleeding - Coagulopathy, thrombocytopenia, hypoalbuminemia- in setting of cirrhosis - MRSA bacteremia- ID following, unclear etiology, possible need for LESLIE, repeat blood cultures pending - Carotid artery stenosis- vascular surgery following Plan Liver work up pending Add HFE due to elevated ferritin ? shock liver, now on Phenylephrine gtt Imaging reviewed, likely findings of liver disease, do not suspect acute cholecystitis, pt is also poor surgical candidate Monitor LFTs Avoid hepatotoxins Monitor coagulopathy Cardiology following, cath in AM Vascular surgery, likely carotid endarterectomy, timing TBD ID following, work up for etiology of MRSA bacteremia Further recommendations based on clinical course and results of above This patient has been seen and examined by myself and Dr. Medrano and this note is written on his behalf
--- NOTE | 2018-07-10 17:25 | ECG ---
Date Performed: 07/09/2018 Time Performed: 13:28:05 PTAGE: 63 years EKG: SINUS TACHYCARDIA NONSPECIFIC T-WAVE ABNORMALITY ABNORMAL RHYTHM ECG PREVIOUS TRACING : 07/09/2018 07.08 Since the previous tracing, no significant change noted DOCTOR: Poppy Lara Interpretating Date/Time 07/10/2018 17:23:52
--- NOTE | 2018-07-10 17:38 | ECG ---
Date Performed: 07/09/2018 Time Performed: 22:22:27 PTAGE: 63 years EKG: SINUS TACHYCARDIA NONSPECIFIC ST & T-WAVE ABNORMALITY Compared to previous tracing, there i s new lateral ST segment depression. Clinical correlation is recommended ABNORMAL RHYTHM ECG PREVIOUS TRACING : 07/09/2018 13.28 DOCTOR: Poppy Lara Interpretating Date/Time 07/10/2018 17:36:25
[2018-07-10 23:12] LABS: Amorphous Sediment,Urine Rare /hpf; Bilirubin,Urine Negative (Negative); Clarity,Urine Hazy (Clear); Color,Urine Amber (Yellw/Straw); Glucose,Urine (UA) Negative (Negative); Leukocyte Esterase,Urine Negative (Negative); Mucus,Urine Few /lpf (Occasional); Nitrite,Urine Negative (Negative); Specific Gravity,Urine 1.056 (1.002-1.035); Squamous Epithelial Cell,Urine 1 /hpf (0-5)
[2018-07-10 23:16] LABS: Creatinine,Urine Random 112 mg/dL (27-300)
[2018-07-11] MEDS ORDERED: Pharmacy Ordered Lab Info OTHER ONE (00:45)
[2018-07-11] MEDS: Sodium Bicarbonate 8.4% Inj 150 MEQ in Water for Inj, Sterile 850 ML IV.CONT SCH ×2 (03:45→10:19)
[2018-07-11 03:51] LABS: Baso % (Auto) 0.4 % (0.0-2.0); Eos % (Auto) 0.6 % (0.0-4.0); Hematocrit 29.2 % (39.0-51.0); Hemoglobin 10.1 gm/dL (13.0-17.0); Lymph # (Auto) 0.9 th/mm3 (1.0-4.8); Lymph % (Auto) 14.4 % (9.0-44.0); Mean Corpuscular HGB Conc 34.6 % (32.0-36.0); Mean Corpuscular Hemoglobin 33.4 pg (27.0-34.0); Mean Corpuscular Volume 96.6 fL (80.0-100.0); Mean Platelet Volume 10.9 fL (7.0-11.0); Mono # (Auto) 0.6 th/mm3 (0.0-0.9); Mono % (Auto) 9.4 % (0.0-8.0); Neut # (Auto) 4.7 th/mm3 (1.8-7.7); Neut % (Auto) 75.2 % (16.0-70.0); Platelet Count 42 th/mm3 (150-450); Red Blood Count 3.02 mil/mm3 (4.50-5.90); Red Cell Distribution Width 12.8 % (11.6-17.2); White Blood Count 6.3 th/mm3 (4.0-11.0)
[2018-07-11] MEDS: Piperacil/Tazo 3.375 GM Premix 50 ML IV.SIG SCH ×2 (03:53→09:41)
[2018-07-11 04:11] LABS: Potassium 3.1 meq/L (3.5-5.1)
[2018-07-11 04:12] LABS: Activated Partial Thrombo Time 41.2 sec (23.4-31.7); Calcium 6.6 mg/dL (8.5-10.1); INR 3.1 Ratio; Vancomycin,Random 30.8 Comment
[2018-07-11 04:13] LABS: Magnesium 1.8 mg/dL (1.5-2.5); Phosphorus 3.3 mg/dL (2.5-4.9); Total Protein 5.7 g/dL (6.4-8.2)
[2018-07-11 04:14] LABS: Albumin 2.2 g/dL (3.4-5.0)
[2018-07-11 04:29] LABS: Creatine Kinase MB 53.4 ng/mL (0.5-3.6)
[2018-07-11 04:31] LABS: Eosinophils 1 % (0-4); Lymphocytes 16 % (9-44); Monocytes 3 % (0-8); Myelocytes 1 % (0-0)
[2018-07-11 04:32] LABS: CKMB Percent 13.4 % (0.0-4.0); RBC Morphology Normal (Normal); Toxic Granulation 1+; Toxic Vacuolation Present
[2018-07-11] MEDS: Multivitamin Inj 10 ML, Thiamine Inj 100 MG, Folic Acid Inj 1 MG in Sodium Chlor 0.9% I... IV.SIG SCH (09:39)
[2018-07-11] MEDS: Senna/Docusate Sodium 8.6/50 MG Tablet PO SCH (09:40)
[2018-07-11] MEDS: Pantoprazole Inj 40 MG Vial IV.PUSH SCH (09:41)
--- NOTE | 2018-07-11 10:09 | P.PNID ---
Subjective Remarks: Patient is a 63-year-old male, presented to the hospital complaining of pain and swelling on his left elbow. He stated that he fell about a week ago but did not seek any treatment for his left elbow. He presented to the ED, and he was found to have a fracture of the olecranon on the left side. Patient also since admission has complained of some abdominal pain. He has known history of significant alcohol abuse. Imaging studies of the abdomen showed hepatic steatosis, pericholecystic fluid with no ductal dilatation. Ultrasound showed pericholecystic fluid with negative Lundy sign. He had a HIDA scan which showed no activity which could most likely be due to his liver disease. Patient also had a CTA as part of evaluation for his abdominal pain. That is okay. There were 2 blood cultures done in the ED, and they are now reported as growing MRSA. Patient has had some low-grade temps. Overnight he had persistent hypotension, and he was transferred to the ICU. Patient currently is on pressors. He is afebrile. He is still complaining of abdominal pain. He states he has chronic back pain which has not changed. He denies any shortness of breath. On this admission he was also found to have 80% right carotid artery stenosis, and vascular is following the patient. Echocardiograms not showing any obvious vegetation. His WBC is mildly elevated. He has an elevated lactic acid. His platelet count is low, fibrinogen is normal. Infectious disease consultation has been requested to assist with evaluation and treatment of his bacteremia. Notes reviewed Temps ok BP ok, off pressors D/W RN Cath planned today Repeat BC negative Creatinine up to 3+ Urine for eos negative C/O epigastric pain Has posterior splint LUE Echo noted Antibiotics: Zosyn Vanco - on hold Past Medical History: Tobacco and ETOH abuse Drug screen (+) cocaine (denies IVDU), admits to smoking Allergies/Adverse Reactions: Allergies No Known Allergies Allergy (Verified 07/08/18 12:30) Objective Vital Signs 07/10/18 10:11 07/10/18 10:17 07/10/18 10:30 Temperature Pulse Rate 110 H 97 H Respiratory Rate Blood Pressure 106/54 L Pulse Oximetry 07/10/18 11:00 07/10/18 11:11 07/10/18 11:30 Temperature Pulse Rate 100 H 99 H 91 H Respiratory Rate 18 18 Blood Pressure 84/49 L Pulse Oximetry 89 L 07/10/18 11:32 07/10/18 11:45 07/10/18 12:00 Temperature 99.1 F Pulse Rate 101 H 99 H 102 H Respiratory Rate 25 H 18 Blood Pressure 93/68 L 98/69 L Pulse Oximetry 92 L 07/10/18 12:15 07/10/18 12:30 07/10/18 12:34 Temperature Pulse Rate 100 H 114 H Respiratory Rate 22 18 18 Blood Pressure 102/53 L 86/56 L Pulse Oximetry 97 07/10/18 12:45 07/10/18 13:00 07/10/18 13:15 Temperature Pulse Rate 101 H 98 H Respiratory Rate 20 20 Blood Pressure 146/67 H 136/60 127/54 L Pulse Oximetry 07/10/18 13:30 07/10/18 13:45 07/10/18 14:00 Temperature Pulse Rate 96 H 99 H 100 H Respiratory Rate 20 18 20 Blood Pressure 118/55 L 109/51 L 134/60 Pulse Oximetry 07/10/18 14:15 07/10/18 14:30 07/10/18 14:45 Temperature Pulse Rate 108 H 100 H 99 H Respiratory Rate 20 20 20 Blood Pressure 132/54 L 134/63 109/51 L Pulse Oximetry 07/10/18 15:00 07/10/18 15:15 07/10/18 15:30 Temperature Pulse Rate 105 H 97 H 96 H Respiratory Rate 20 20 19 Blood Pressure 132/62 116/54 L 108/53 L Pulse Oximetry 97 94 L 92 L 07/10/18 15:32 07/10/18 15:45 07/10/18 16:00 Temperature 98.5 F Pulse Rate 98 H 120 H 108 H Respiratory Rate 24 20 Blood Pressure 156/68 H 138/65 Pulse Oximetry 92 L 89 L 07/10/18 19:00 07/10/18 19:15 07/10/18 19:30 Temperature Pulse Rate 103 H 98 H 100 H Respiratory Rate 36 H 29 H 26 H Blood Pressure 142/62 H 132/59 L 117/56 L Pulse Oximetry 92 L 94 L 93 L 07/10/18 19:45 07/10/18 20:00 07/10/18 20:15 Temperature 97.6 F Pulse Rate 120 H 107 H 105 H Respiratory Rate 44 H 40 H 38 H Blood Pressure 157/67 H 141/56 H 138/61 Pulse Oximetry 90 L 94 L 93 L 07/10/18 20:28 07/10/18 20:30 07/10/18 20:45 Temperature Pulse Rate 110 H 104 H 115 H Respiratory Rate 22 29 H 44 H Blood Pressure 144/66 H 135/63 Pulse Oximetry 98 93 L 07/10/18 21:00 07/10/18 21:15 07/10/18 21:30 Temperature Pulse Rate 114 H 113 H 110 H Respiratory Rate 38 H 41 H 33 H Blood Pressure 136/63 136/63 139/64 Pulse Oximetry 95 94 L 94 L 07/10/18 21:45 07/10/18 22:00 07/10/18 22:30 Temperature Pulse Rate 105 H 104 H 106 H Respiratory Rate 29 H 29 H 36 H Blood Pressure 144/67 H 146/66 H 129/61 Pulse Oximetry 94 L 95 99 07/10/18 22:45 07/10/18 23:00 07/10/18 23:15 Temperature Pulse Rate 100 H 101 H 101 H Respiratory Rate 32 H 35 H 33 H Blood Pressure 130/62 137/65 138/62 Pulse Oximetry 100 97 92 L 07/10/18 23:30 07/10/18 23:36 07/10/18 23:45 Temperature Pulse Rate 99 H 100 H 108 H Respiratory Rate 29 H 19 37 H Blood Pressure 142/64 H 143/65 H Pulse Oximetry 100 95 07/10/18 23:58 07/11/18 00:00 07/11/18 00:15 Temperature 97.8 F Pulse Rate 112 H 107 H Respiratory Rate 22 27 H 25 H Blood Pressure 142/63 H 144/66 H Pulse Oximetry 95 100 07/11/18 00:30 07/11/18 00:45 07/11/18 01:00 Temperature Pulse Rate 106 H 105 H 105 H Respiratory Rate 23 21 22 Blood Pressure 143/66 H 145/65 H 125/56 L Pulse Oximetry 100 100 100 07/11/18 01:15 07/11/18 01:30 07/11/18 01:45 Temperature Pulse Rate 104 H 101 H 102 H Respiratory Rate 28 H 21 22 Blood Pressure 134/61 133/62 137/62 Pulse Oximetry 100 97 98 07/11/18 02:00 07/11/18 02:15 07/11/18 02:30 Temperature Pulse Rate 102 H 104 H 103 H Respiratory Rate 27 H 31 H 29 H Blood Pressure 138/64 134/62 134/67 Pulse Oximetry 91 L 99 99 07/11/18 02:45 07/11/18 03:00 07/11/18 03:15 Temperature Pulse Rate 100 H 98 H 99 H Respiratory Rate 30 H 25 H 25 H Blood Pressure 134/68 135/67 140/70 Pulse Oximetry 99 100 100 07/11/18 03:30 07/11/18 03:45 07/11/18 03:54 Temperature Pulse Rate 98 H 98 H 98 H Respiratory Rate 26 H 25 H 19 Blood Pressure 147/65 H 143/70 H Pulse Oximetry 100 98 07/11/18 04:00 07/11/18 04:15 07/11/18 04:30 Temperature 97.8 F Pulse Rate 101 H 114 H 108 H Respiratory Rate 27 H 33 H 29 H Blood Pressure 133/66 131/60 134/64 Pulse Oximetry 100 91 L 100 07/11/18 04:45 07/11/18 05:00 07/11/18 05:15 Temperature Pulse Rate 106 H 105 H 105 H Respiratory Rate 22 22 25 H Blood Pressure 141/67 H 139/63 137/63 Pulse Oximetry 99 99 100 07/11/18 05:30 07/11/18 05:45 07/11/18 06:00 Temperature Pulse Rate 105 H 101 H 100 H Respiratory Rate 23 22 21 Blood Pressure 139/65 135/64 137/67 Pulse Oximetry 98 100 100 07/11/18 06:15 07/11/18 06:30 07/11/18 06:45 Temperature Pulse Rate 99 H 104 H 101 H Respiratory Rate 22 21 22 Blood Pressure 141/67 H 147/72 H 142/66 H Pulse Oximetry 100 68 L 99 07/11/18 07:00 07/11/18 07:15 07/11/18 07:33 Temperature Pulse Rate 98 H 102 H 103 H Respiratory Rate 22 29 H 30 H Blood Pressure 138/66 137/67 125/59 L Pulse Oximetry 100 100 99 07/11/18 07:45 07/11/18 08:00 07/11/18 08:15 Temperature Pulse Rate 101 H 98 H 101 H Respiratory Rate 33 H 27 H 29 H Blood Pressure 130/63 132/67 147/73 H Pulse Oximetry 98 100 98 07/11/18 08:16 07/11/18 08:30 07/11/18 08:45 Temperature 97.8 F Pulse Rate 101 H 104 H 111 H Respiratory Rate 24 32 H 33 H Blood Pressure 143/67 H 157/71 H Pulse Oximetry 98 91 L 07/11/18 09:00 07/11/18 09:15 07/11/18 09:30 Temperature Pulse Rate 108 H 114 H 105 H Respiratory Rate 31 H 29 H 33 H Blood Pressure 175/97 H 149/59 H 163/72 H Pulse Oximetry 97 86 L 96 07/11/18 09:44 Temperature Pulse Rate Respiratory Rate Blood Pressure Pulse Oximetry 98 Intake & Output 07/10/18 07/11/18 07/11/18 18:59 06:59 18:59 Intake Total 1873.7 / 1873.7 2100 / 2100 Output Total 600 / 600 400 / 400 Balance 1273.7 / 1273.7 1700 / 1700 Weight 61.9 kg Intake: IV 1873.7 / 1873.7 2099 / 2099 Sodium Bicarbonate 8.4% Inj 150 2000 / 2000 MEQ In Sterile Water for Inj 850 ML @ 150 mls/hr IV.CONT . Q6H40M [facility] Rx#:[id number] MVI-12 Inj 10 ML Thiamine Inj 511.2 / 511.2 100 MG Folvite Inj 1 MG In NS Inj 500 ML @ 125 mls/hr IV.SIG Q24H [facility] Rx#:[id number] Zosyn 3.375 GM Premix 50 ML @ 100 / 100 100 / 100 100 mls/hr IV.SIG Q6H [facility] Rx#: [id number] NS Inj 1,000 ML @ Wide Open IV. 1000 / 1000 SIG BOLUS ONE Rx#:[id number] Output: Urine 600 / 600 400 / 400 Other: # Voids 3 Date of Last Bowel Movement 07/10/18 07/10/18 07/10/18 # Bowel Movements 5 07/08/18 19:35 Blood - Peripheral Aerobic Blood Culture - Preliminary S. aureus MRSA 07/08/18 19:35 Blood - Peripheral Anaerobic Blood Culture - Preliminary gram positive cocci 07/10/18 22:30 Clean Catch Urine Urine Culture - Pending 07/10/18 12:49 Stool Stool Occult Blood (DAVE) - Pending 07/10/18 11:15 Blood - Peripheral Aerobic Blood Culture - Pending 07/10/18 11:15 Blood - Peripheral Anaerobic Blood Culture - Pending 07/10/18 11:20 Blood - Peripheral Aerobic Blood Culture - Pending 07/10/18 11:20 Blood - Peripheral Anaerobic Blood Culture - Pending 07/08/18 19:30 Blood - Peripheral Aerobic Blood Culture - Preliminary S. aureus MRSA 07/08/18 19:30 Blood - Peripheral Anaerobic Blood Culture - Preliminary S. aureus MRSA Lab - Hematology Results 07/09/18 07/10/18 07/11/18 20:17 04:27 03:13 WBC 9.6 6.3 RBC 3.65 L 3.02 L Hgb 12.2 L 10.1 L D Hct 36.9 L 29.2 L MCV 101.2 H D 96.6 D MCH 33.5 33.4 MCHC 33.1 34.6 RDW 13.2 12.8 Plt Count 55 L 42 L MPV 11.1 H 10.9 Prelim Diff (Auto) Slide review pending Slide review pending Neut % (Auto) 89.9 H 75.2 H Lymph % (Auto) 3.4 L 14.4 [place] % (Auto) 6.5 9.4 H Eos % (Auto) 0.1 0.6 Baso % (Auto) 0.1 0.4 Neut # (Auto) 8.6 H 4.7 Lymph # (Auto) 0.3 L 0.9 L [place] # (Auto) 0.6 0.6 Eos # (Auto) 0.0 0.0 Baso # (Auto) 0.0 0.0 WBC Differential Manual diff final Manual diff final Seg Neuts % (Manual) 79 H 60 Band Neuts % (Manual) 7 H 18 H Lymphocytes % (Manual) 4 L 16 Monocytes % (Manual) 10 H 3 Eosinophils % (Manual) 1 Basophils % (Manual) 1 Myelocytes % (Man) 1 H Abs Neuts (Manual) 8.3 H 5.0 Differential Comment . . Toxic Granulation 1+ H Toxic Vacuolation Present H Present H Platelet Estimate Low L Low L Platelet Morphology Normal Enlarged H RBC Morphology Normal ESR 37 H Lab - Chemistry Results 07/09/18 07/09/18 07/09/18 13:40 20:17 20:17 Sodium Potassium Chloride Carbon Dioxide Anion Gap BUN Creatinine Estimated GFR Random Glucose Lactic Acid 4.0 H Calcium Calcium Adj for Albumin Phosphorus Magnesium Iron 123 TIBC 217 L % Saturation 56.7 H Ferritin 9759 H Total Bilirubin Direct Bilirubin Indirect Bilirubin AST ALT Alkaline Phosphatase Ammonia Total Creatine Kinase CK-MB (CK-2) CK-MB (CK-2) % Troponin I 0.51 H C-Reactive Protein Total Protein Albumin Triglycerides Cholesterol LDL Cholesterol, Calc HDL Cholesterol Cholesterol/HDL Ratio Amylase Lipase Tumor Marker AFP 3.7 TSH Cortisol 07/09/18 07/09/18 07/09/18 20:17 20:17 20:17 Sodium Potassium Chloride Carbon Dioxide Anion Gap BUN Creatinine Estimated GFR Random Glucose Lactic Acid Calcium Calcium Adj for Albumin Phosphorus Magnesium Iron TIBC % Saturation Ferritin Total Bilirubin Direct Bilirubin Indirect Bilirubin AST ALT Alkaline Phosphatase Ammonia 64 H Total Creatine Kinase CK-MB (CK-2) CK-MB (CK-2) % Troponin I C-Reactive Protein 5.70 H Total Protein Albumin Triglycerides 140 Cholesterol 50 L LDL Cholesterol, Calc 11 HDL Cholesterol 10.8 L Cholesterol/HDL Ratio 4.62 Amylase Lipase Tumor Marker AFP TSH Cortisol 07/09/18 07/09/18 07/10/18 20:17 22:49 01:30 Sodium Potassium Chloride Carbon Dioxide Anion Gap BUN Creatinine Estimated GFR Random Glucose Lactic Acid 5.1 H* Calcium Calcium Adj for Albumin Phosphorus Magnesium Iron TIBC % Saturation Ferritin Total Bilirubin Direct Bilirubin Indirect Bilirubin AST ALT Alkaline Phosphatase Ammonia Total Creatine Kinase CK-MB (CK-2) CK-MB (CK-2) % Troponin I 1.66 H* 1.11 H* C-Reactive Protein Total Protein Albumin Triglycerides Cholesterol LDL Cholesterol, Calc HDL Cholesterol Cholesterol/HDL Ratio Amylase Lipase Tumor Marker AFP TSH Cortisol 07/10/18 07/10/18 07/10/18 01:30 04:27 04:27 Sodium 137 Potassium 4.6 Chloride 105 Carbon Dioxide 16.7 L Anion Gap 15 BUN 18 Creatinine 1.24 Estimated GFR 59 L Random Glucose 70 L Lactic Acid 6.2 H* 8.0 H* Calcium 8.1 L Calcium Adj for Albumin Phosphorus Magnesium Iron TIBC % Saturation Ferritin Total Bilirubin 3.8 H Direct Bilirubin Indirect Bilirubin AST 6909 H ALT 2815 H Alkaline Phosphatase 126 H Ammonia Total Creatine Kinase CK-MB (CK-2) CK-MB (CK-2) % Troponin I C-Reactive Protein Total Protein 6.6 D Albumin 2.7 L Triglycerides Cholesterol LDL Cholesterol, Calc HDL Cholesterol Cholesterol/HDL Ratio Amylase Lipase Tumor Marker AFP TSH Cortisol 07/10/18 07/10/18 07/10/18 11:15 11:15 11:15 Sodium Potassium Chloride Carbon Dioxide Anion Gap BUN Creatinine Estimated GFR Random Glucose Lactic Acid 9.1 H* Calcium Calcium Adj for Albumin Phosphorus Magnesium Iron TIBC % Saturation Ferritin Total Bilirubin 4.0 H Direct Bilirubin 3.2 H Indirect Bilirubin 0.8 AST ALT Alkaline Phosphatase Ammonia Total Creatine Kinase CK-MB (CK-2) CK-MB (CK-2) % Troponin I 7.39 H* C-Reactive Protein Total Protein Albumin Triglycerides Cholesterol LDL Cholesterol, Calc HDL Cholesterol Cholesterol/HDL Ratio Amylase Lipase Tumor Marker AFP TSH Cortisol 25.6 07/10/18 07/10/18 07/10/18 13:56 13:56 13:56 Sodium 141 Potassium 4.1 Chloride 106 Carbon Dioxide 17.8 L Anion Gap 17 H BUN 22 H Creatinine 1.85 H Estimated GFR 37 L Random Glucose 118 H Lactic Acid 9.9 H* Calcium 7.5 L Calcium Adj for Albumin Phosphorus Magnesium Iron TIBC % Saturation Ferritin Total Bilirubin Direct Bilirubin Indirect Bilirubin AST ALT Alkaline Phosphatase Ammonia Total Creatine Kinase CK-MB (CK-2) CK-MB (CK-2) % Troponin I 9.95 H* Cancelled C-Reactive Protein Total Protein Albumin Triglycerides Cholesterol LDL Cholesterol, Calc HDL Cholesterol Cholesterol/HDL Ratio Amylase 66 Lipase Tumor Marker AFP TSH Cortisol 07/10/18 07/11/18 07/11/18 19:40 03:13 03:13 Sodium Potassium Chloride Carbon Dioxide Anion Gap BUN Creatinine Estimated GFR Random Glucose Lactic Acid 7.6 H* 5.1 H* Calcium Calcium Adj for Albumin Phosphorus Magnesium Iron TIBC % Saturation Ferritin Total Bilirubin Direct Bilirubin Indirect Bilirubin AST ALT Alkaline Phosphatase Ammonia 33 H Total Creatine Kinase CK-MB (CK-2) CK-MB (CK-2) % Troponin I C-Reactive Protein Total Protein Albumin Triglycerides Cholesterol LDL Cholesterol, Calc HDL Cholesterol Cholesterol/HDL Ratio Amylase Lipase Tumor Marker AFP TSH Cortisol 07/11/18 07/11/18 03:13 07:46 Sodium 138 Potassium 3.1 L D Chloride 100 Carbon Dioxide 26.0 Anion Gap 12 BUN 26 H Creatinine 2.31 H Estimated GFR 29 L Random Glucose 130 H Lactic Acid 4.7 H* Calcium 6.6 L* D Calcium Adj for Albumin 8.0 L Phosphorus 3.3 Magnesium 1.8 Iron TIBC % Saturation Ferritin Total Bilirubin 3.2 H Direct Bilirubin Indirect Bilirubin AST 2701 H ALT 1873 H Alkaline Phosphatase 86 Ammonia Total Creatine Kinase 400 H CK-MB (CK-2) 53.4 H CK-MB (CK-2) % 13.4 H* Troponin I C-Reactive Protein Total Protein 5.7 L D Albumin 2.2 L Triglycerides Cholesterol LDL Cholesterol, Calc HDL Cholesterol Cholesterol/HDL Ratio Amylase Lipase 815 H Tumor Marker AFP TSH 1.000 Cortisol Imaging: ITS Impressions Head CT 07/08/18 17:06 CONCLUSION: 1. No acute intracranial abnormality. 2. Mild Atrophy. . Elbow X-Ray 07/08/18 18:01 CONCLUSION: 1. Small, mildly displaced olecranon avulsion fracture fragments of the triceps insertion with associated soft tissue swelling. 2. Joint effusion. No perceptible intra-articular fracture. No subluxation. Abdomen/Pelvis CT 07/08/18 18:02 CONCLUSION: 1. Severe fatty infiltration of the liver. 2. Apparent pericholecystic fluid. Also fairly robust enhancement of the gallbladder mucosa. Please correlate clinically for any evidence of cholecystitis. No stones or ductal dilatation demonstrated. Gallbladder Ultrasound 07/08/18 18:53 CONCLUSION: 1. Small, nonspecific pericholecystic fluid without stones, wall thickening or sonographic Lundy's sign. The fluid may be on the basis of hepatocellular disease. The ultrasound does not support acute cholecystitis. 2. Fatty infiltrated and mildly enlarged liver. Carotid Doppler Study 07/09/18 00:00 CONCLUSION: 1. Right Internal Carotid Artery: Findings indicate >70% stenosis, but less than near occlusion. 2. Left Internal Carotid Artery: Findings indicate <50% stenosis. Hepatobiliary Scan Nuclear Medicine 07/09/18 14:22 CONCLUSION: 1. No activity in intrahepatic ducts, common duct or small bowel. Considerations include include acute obstruction of the common duct and diffuse hepatocellular disease. 2. CT scan shows no dilatation of the common duct or intrahepatic ducts. Diffuse hepatocellular disease is suspected. Chest X-Ray 07/10/18 00:00 CONCLUSION: No acute cardiopulmonary abnormality is identified. Neck CTA 07/10/18 00:00 CONCLUSION: 1. 80% stenosis of the proximal right ICA. Left carotid and bilateral vertebral arteries are patent. 2. Emphysematous changes. Abdomen/Pelvis CTA 07/10/18 00:08 CONCLUSION: 1. 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 The SMA and MIC are patent. 2. Hepatic steatosis. 3. Emphysematous changes. Physical Exam: GENERAL: Patient is a well-nourished, well-developed male, awake and alert, not in respiratory distress. SKIN: Cool and dry. No generalized rash, no ecchymoses. Has healing abrasions in his UE. No evidence of embolic lesions. HEAD: Atraumatic. Normocephalic. No temporal wasting, or tenderness. EYES: [place] conjunctiva. No petechia or hemorrhage. Pupils equal, round and reactive to light. Extraocular movements full and intact. No scleral icterus. No injection or drainage. EARS, NOSE AND THROAT: Nose without bleeding or purulent nasal discharge. No sinus tenderness. Mucous membranes pink and moist. No oral lesions noted. He is edentulous NECK: Trachea midline. Supple and not tender, no meningeal signs CARDIOVASCULAR: Regular rate and rhythm. No murmurs, rubs or gallops heard RESPIRATORY: Clear to auscultation. Breath sounds equal bilaterally. No rales , wheezing or rhonchi ABDOMEN: Soft, Mildly distended, tender diffusely, no guarding or rebound. Bowel sounds present and normoactive. EXTREMITIES: No clubbing, cyanosis, or edema. No calf tenderness. Well perfused and warm. Has posterior splint in his whole LUE NEUROLOGICAL: Awake and alert. Cranial nerves grossly intact. Motor grossly within normal limits. PSYCHIATRIC: Normal affect, calm and cooperative. LINE: No evidence of infection Assessment and Plan - Plan Impression MRSA sepsis, source? Shock, resolved Known ETOH abuse and tobacco abuse Denies IVDU, admits to smoking cocaine ETOH liver disease Elevated LFT ?GB problem Thrombocytopenia Acute renal failure - ?sepsis, shock or dye Recommendation Follow C/S Stop Vanco Will use Cubicin for now for MRSA Decrease Zosyn dose For cath today Follow C/S GI evaluating elevated LFT Follow temps Monitor progress
[2018-07-11] MEDS: Piperacil/Tazo 2.25 GM Premix 50 ML IV.SIG SCH ×2 (11:00→18:42)
--- NOTE | 2018-07-11 11:18 | P.PNCC ---
Subjective Subjective Remarks/Hospital Course: 63-year-old male. Admission 07/09/2018. Date of consultation 2017. Past medical history includes ongoing alcoholism. Urine tox screen on admission positive for cocaine and opiates. Patient originally fell from a single bed about 1 week ago. He did not seek treatment for his swollen left elbow. He is initially diagnosed here with a left olecranon fracture/ nondisplaced. Seen by Dr. Blanco recommended splint/immobilization. Follow-up outpatient with x-rays in 2 weeks. He was treated with alcoholism for on the [facility] protocol receiving multivitamin, folate and thiamine. During admission, patient had multiple complaints including right upper quadrant pain. Patient has CT his abdomen/pelvis revealed hepatic steatosis, pericholecystic fluid with no ductal dilatation. Ultrasound showed pericholecystic 6 with negative Lundy sign. Nuclear medicine scan revealed no activity in the intrahepatic ducts compatible ducts or small bowel. Likely slightly disease. Patient was evaluated by gastroenterology for this issue. BOBBY, AMA, ASMA, SSA a and B, Ronquillo, scleroderma and double-stranded DNA all pending. Negative hepatitis panel. Noted patient had angiogram of the abdomen which revealed no focal stenosis of the SMA, MIC or celiac. Patient elevated troponin. Was seen by Dr. chaudhry. Echocardiogram revealed EF 55-6%. PA P 43 mmHg. Trace to mild TR. Possibly demand ischemia due to sepsis. Was on aspirin. Did receive/placed on heparin drip. This is currently on hold due to coagulopathic state. Patient has gram-positive cocci in blood. Infectious disease has been counseled. Currently on vancomycin for comfort.) I repeated blood cultures, sputum and urine culture today. Patient is 80% right carotid artery stenosis. Followed by Dr. Martini Patient was transferred to ICU with persistent hypotension increasing lactic acidosis in the setting of acute liver injury. Worsening renal function. Patient has received 2.5 L normal saline the present time his blood pressure appears stable. Patient is currently denying abdominal pain. SUBJECTIVE: 07/11: Currently resting in bed and asking when he can go home. Creatinine is elevated 2.3. Will bolus with additional fluid. Echocardiogram results noted. Objective Vital Signs / I&O: Vital Signs 07/10/18 11:30 07/10/18 11:32 07/10/18 11:45 Temperature Pulse Rate 91 H 101 H 99 H Respiratory Rate 25 H Blood Pressure 93/68 L Pulse Oximetry 89 L 92 L 07/10/18 12:00 07/10/18 12:15 07/10/18 12:30 Temperature 99.1 F Pulse Rate 102 H 100 H 114 H Respiratory Rate 18 22 18 Blood Pressure 98/69 L 102/53 L 86/56 L Pulse Oximetry 97 07/10/18 12:34 07/10/18 12:45 07/10/18 13:00 Temperature Pulse Rate 101 H Respiratory Rate 18 20 Blood Pressure 146/67 H 136/60 Pulse Oximetry 07/10/18 13:15 07/10/18 13:30 07/10/18 13:45 Temperature Pulse Rate 98 H 96 H 99 H Respiratory Rate 20 20 18 Blood Pressure 127/54 L 118/55 L 109/51 L Pulse Oximetry 07/10/18 14:00 07/10/18 14:15 07/10/18 14:30 Temperature Pulse Rate 100 H 108 H 100 H Respiratory Rate 20 20 20 Blood Pressure 134/60 132/54 L 134/63 Pulse Oximetry 07/10/18 14:45 07/10/18 15:00 07/10/18 15:15 Temperature Pulse Rate 99 H 105 H 97 H Respiratory Rate 20 20 20 Blood Pressure 109/51 L 132/62 116/54 L Pulse Oximetry 97 94 L 07/10/18 15:30 07/10/18 15:32 07/10/18 15:45 Temperature Pulse Rate 96 H 98 H 120 H Respiratory Rate 19 24 20 Blood Pressure 108/53 L 156/68 H Pulse Oximetry 92 L 92 L 07/10/18 16:00 07/10/18 19:00 07/10/18 19:15 Temperature 98.5 F Pulse Rate 108 H 103 H 98 H Respiratory Rate 36 H 29 H Blood Pressure 138/65 142/62 H 132/59 L Pulse Oximetry 89 L 92 L 94 L 07/10/18 19:30 07/10/18 19:45 07/10/18 20:00 Temperature 97.6 F Pulse Rate 100 H 120 H 107 H Respiratory Rate 26 H 44 H 40 H Blood Pressure 117/56 L 157/67 H 141/56 H Pulse Oximetry 93 L 90 L 94 L 07/10/18 20:15 07/10/18 20:28 07/10/18 20:30 Temperature Pulse Rate 105 H 110 H 104 H Respiratory Rate 38 H 22 29 H Blood Pressure 138/61 144/66 H Pulse Oximetry 93 L 98 07/10/18 20:45 07/10/18 21:00 07/10/18 21:15 Temperature Pulse Rate 115 H 114 H 113 H Respiratory Rate 44 H 38 H 41 H Blood Pressure 135/63 136/63 136/63 Pulse Oximetry 93 L 95 94 L 07/10/18 21:30 07/10/18 21:45 07/10/18 22:00 Temperature Pulse Rate 110 H 105 H 104 H Respiratory Rate 33 H 29 H 29 H Blood Pressure 139/64 144/67 H 146/66 H Pulse Oximetry 94 L 94 L 95 07/10/18 22:30 07/10/18 22:45 07/10/18 23:00 Temperature Pulse Rate 106 H 100 H 101 H Respiratory Rate 36 H 32 H 35 H Blood Pressure 129/61 130/62 137/65 Pulse Oximetry 99 100 97 07/10/18 23:15 07/10/18 23:30 07/10/18 23:36 Temperature Pulse Rate 101 H 99 H 100 H Respiratory Rate 33 H 29 H 19 Blood Pressure 138/62 142/64 H Pulse Oximetry 92 L 100 07/10/18 23:45 07/10/18 23:58 07/11/18 00:00 Temperature 97.8 F Pulse Rate 108 H 112 H Respiratory Rate 37 H 22 27 H Blood Pressure 143/65 H 142/63 H Pulse Oximetry 95 95 07/11/18 00:15 07/11/18 00:30 07/11/18 00:45 Temperature Pulse Rate 107 H 106 H 105 H Respiratory Rate 25 H 23 21 Blood Pressure 144/66 H 143/66 H 145/65 H Pulse Oximetry 100 100 100 07/11/18 01:00 07/11/18 01:15 07/11/18 01:30 Temperature Pulse Rate 105 H 104 H 101 H Respiratory Rate 22 28 H 21 Blood Pressure 125/56 L 134/61 133/62 Pulse Oximetry 100 100 97 07/11/18 01:45 07/11/18 02:00 07/11/18 02:15 Temperature Pulse Rate 102 H 102 H 104 H Respiratory Rate 22 27 H 31 H Blood Pressure 137/62 138/64 134/62 Pulse Oximetry 98 91 L 99 07/11/18 02:30 07/11/18 02:45 07/11/18 03:00 Temperature Pulse Rate 103 H 100 H 98 H Respiratory Rate 29 H 30 H 25 H Blood Pressure 134/67 134/68 135/67 Pulse Oximetry 99 99 100 07/11/18 03:15 07/11/18 03:30 07/11/18 03:45 Temperature Pulse Rate 99 H 98 H 98 H Respiratory Rate 25 H 26 H 25 H Blood Pressure 140/70 147/65 H 143/70 H Pulse Oximetry 100 100 98 07/11/18 03:54 07/11/18 04:00 07/11/18 04:15 Temperature 97.8 F Pulse Rate 98 H 101 H 114 H Respiratory Rate 19 27 H 33 H Blood Pressure 133/66 131/60 Pulse Oximetry 100 91 L 07/11/18 04:30 07/11/18 04:45 07/11/18 05:00 Temperature Pulse Rate 108 H 106 H 105 H Respiratory Rate 29 H 22 22 Blood Pressure 134/64 141/67 H 139/63 Pulse Oximetry 100 99 99 07/11/18 05:15 07/11/18 05:30 07/11/18 05:45 Temperature Pulse Rate 105 H 105 H 101 H Respiratory Rate 25 H 23 22 Blood Pressure 137/63 139/65 135/64 Pulse Oximetry 100 98 100 07/11/18 06:00 07/11/18 06:15 07/11/18 06:30 Temperature Pulse Rate 100 H 99 H 104 H Respiratory Rate 21 22 21 Blood Pressure 137/67 141/67 H 147/72 H Pulse Oximetry 100 100 68 L 07/11/18 06:45 07/11/18 07:00 07/11/18 07:15 Temperature Pulse Rate 101 H 98 H 102 H Respiratory Rate 22 22 29 H Blood Pressure 142/66 H 138/66 137/67 Pulse Oximetry 99 100 100 07/11/18 07:33 07/11/18 07:45 07/11/18 08:00 Temperature Pulse Rate 103 H 101 H 98 H Respiratory Rate 30 H 33 H 27 H Blood Pressure 125/59 L 130/63 132/67 Pulse Oximetry 99 98 100 07/11/18 08:15 07/11/18 08:16 07/11/18 08:30 Temperature 97.8 F Pulse Rate 101 H 101 H 104 H Respiratory Rate 29 H 24 32 H Blood Pressure 147/73 H 143/67 H Pulse Oximetry 98 98 07/11/18 08:45 07/11/18 09:00 07/11/18 09:15 Temperature Pulse Rate 111 H 108 H 114 H Respiratory Rate 33 H 31 H 29 H Blood Pressure 157/71 H 175/97 H 149/59 H Pulse Oximetry 91 L 97 86 L 07/11/18 09:30 07/11/18 09:44 Temperature Pulse Rate 105 H Respiratory Rate 33 H Blood Pressure 163/72 H Pulse Oximetry 96 98 Intake & Output 07/10/18 07/11/18 07/11/18 18:59 06:59 18:59 Intake Total 1873.7 / 1873.7 2100 / 2100 Output Total 600 / 600 400 / 400 Balance 1273.7 / 1273.7 1700 / 1700 Weight 61.9 kg Intake: IV 1873.7 / 1873.7 2100 / 2100 Sodium Bicarbonate 8.4% Inj 150 2000 / 2000 MEQ In Sterile Water for Inj 850 ML @ 150 mls/hr IV.CONT . Q6H40M [facility] Rx#:[id number] MVI-12 Inj 10 ML Thiamine Inj 511.2 / 511.2 100 MG Folvite Inj 1 MG In NS Inj 500 ML @ 125 mls/hr IV.SIG Q24H [facility] Rx#:[id number] Zosyn 3.375 GM Premix 50 ML @ 100 / 100 100 / 100 100 mls/hr IV.SIG Q6H [facility] Rx#: [id number] NS Inj 1,000 ML @ Wide Open IV. 1000 / 1000 SIG BOLUS ONE Rx#:[id number] Output: Urine 600 / 600 400 / 400 Other: # Voids 3 Date of Last Bowel Movement 07/10/18 07/10/18 07/10/18 # Bowel Movements 5 Result Diagrams: 07/11/18 03:13 07/11/18 03:13 Other Results: Microbiology 07/10/18 11:15 Blood - Peripheral Aerobic Blood Culture - Preliminary No growth in 1 day 07/10/18 11:15 Blood - Peripheral Anaerobic Blood Culture - Preliminary No growth in 1 day 07/10/18 11:20 Blood - Peripheral Aerobic Blood Culture - Preliminary No growth in 1 day 07/10/18 11:20 Blood - Peripheral Anaerobic Blood Culture - Preliminary No growth in 1 day 07/08/18 19:35 Blood - Peripheral Aerobic Blood Culture - Preliminary S. aureus MRSA 07/08/18 19:35 Blood - Peripheral Anaerobic Blood Culture - Preliminary gram positive cocci 07/08/18 19:30 Blood - Peripheral Aerobic Blood Culture - Preliminary S. aureus MRSA 07/08/18 19:30 Blood - Peripheral Anaerobic Blood Culture - Preliminary S. aureus MRSA Imaging: Head CT 07/08/18 17:06 CONCLUSION: 1. No acute intracranial abnormality. 2. Mild Atrophy. . Chest X-Ray 07/08/18 17:42 CONCLUSION: No evidence of acute cardiopulmonary disease. Elbow X-Ray 07/08/18 18:01 CONCLUSION: 1. Small, mildly displaced olecranon avulsion fracture fragments of the triceps insertion with associated soft tissue swelling. 2. Joint effusion. No perceptible intra-articular fracture. No subluxation. Abdomen/Pelvis CT 07/08/18 18:02 CONCLUSION: 1. Severe fatty infiltration of the liver. 2. Apparent pericholecystic fluid. Also fairly robust enhancement of the gallbladder mucosa. Please correlate clinically for any evidence of cholecystitis. No stones or ductal dilatation demonstrated. Gallbladder Ultrasound 07/08/18 18:53 CONCLUSION: 1. Small, nonspecific pericholecystic fluid without stones, wall thickening or sonographic Lundy's sign. The fluid may be on the basis of hepatocellular disease. The ultrasound does not support acute cholecystitis. 2. Fatty infiltrated and mildly enlarged liver. Carotid Doppler Study 07/09/18 00:00 CONCLUSION: 1. Right Internal Carotid Artery: Findings indicate >70% stenosis, but less than near occlusion. 2. Left Internal Carotid Artery: Findings indicate <50% stenosis. Chest X-Ray 07/09/18 00:39 CONCLUSION: Negative examination. Hepatobiliary Scan Nuclear Medicine 07/09/18 14:22 CONCLUSION: 1. No activity in intrahepatic ducts, common duct or small bowel. Considerations include include acute obstruction of the common duct and diffuse hepatocellular disease. 2. CT scan shows no dilatation of the common duct or intrahepatic ducts. Diffuse hepatocellular disease is suspected. Chest X-Ray 07/10/18 00:00 CONCLUSION: No acute cardiopulmonary abnormality is identified. Neck CTA 07/10/18 00:00 CONCLUSION: 1. 80% stenosis of the proximal right ICA. Left carotid and bilateral vertebral arteries are patent. 2. Emphysematous changes. Abdomen/Pelvis CTA 12/06/18 00:08 CONCLUSION: 1. 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 The SMA and MIC are patent. 2. Hepatic steatosis. 3. Emphysematous changes. Objective Remarks: GENERAL: 63-year-old male resting in bed in no acute distress SKIN: Warm and dry. HEAD: Atraumatic. Normocephalic. EYES: Pupils equal and round 3 mm bilaterally and reactive. No scleral icterus. No injection or drainage. ENT: No nasal bleeding or discharge. Mucous membranes pink and moist. NECK: Trachea midline. No JVD. CARDIOVASCULAR: Regular rate and rhythm. S1, S2 no S4 RESPIRATORY: No accessory muscle use. Clear to auscultation. Breath sounds equal bilaterally. GASTROINTESTINAL: Abdomen soft, non-tender, nondistended. Hepatic and splenic margins not palpable. MUSCULOSKELETAL: Extremities without clubbing, cyanosis, or edema. Left upper extremity currently in splint wrapped in Armen bandage NEUROLOGICAL: Awake and alert. No obvious cranial nerve deficits. Motor grossly within normal limits. Five out of 5 muscle strength in the arms and legs. Normal speech. Assessment and Plan - Assessment and Plan Plan: Neuro/Psych: EtOH abuse Recent cocaine/opiate abuse -inhaled. Denies intravenous CIWA protocol initiated with Lorazepam/haloperidol as needed Vitamin bag daily times 3 days. Patient states he inhaled cocaine 4-5 days ago. Denies IV drug use. Monitor for DTs Discontinued acetaminophen and related products with elevated transaminases CV: Lactic acidosis Severe sepsis Elevated troponin likely demand ischemia Right carotid artery stenosis Elevated CPK Status post 2.5 L crystalloid resuscitation Lactates initially 2.2 currently 4.9 noted elevated transaminases difficulty clearing. We will switch IV fluids to sterile water 3 ampoules of sodium bicarbonate 150 cc an hour. Recheck BMP at [address] chaudhry appreciated.. 2D echocardiogram revealed Normal left ventricular size. Wall thickness is normal. The left ventricular systolic function is normal with an estimated ejection fraction in the range of 55-60%. There is trace tricuspid valve regurgitation. The estimated pulmonary arterial pressure is 13 mmHg On aspirin 81 mg daily and heparin drip. Noted discontinued heparin drip with coagulopathic state. Troponin trending downward. 1.66. Currently 1.11. Followed by vascular surgery for right carotid artery stenosis 80%. Will need intervention when clinically stable. Resp: Tobacco abuse Emphysematous type changes on CT neck Hyperammonia Hypoalbuminemia Nasal cannula to maintain saturations greater than equal 92% Incentive spirometry while awake Albuterol/ipratropium aerosols every 4 hours with albuterol aerosols every 2 hours as needed dyspnea Follow-up on chest x-ray and ABG Tobacco cessation will be encouraged GI: Elevated transaminases Elevated total bilirubin Poss acalc jody Hypoalbuminemia Noted CT abdomen/pelvis revealed possible early cholecystitis. Pericholecystic fluid. Ultrasound revealed negative Lundy sign. Nuclear medicine scan revealed no activity in the intrahepatic ductal compound bile duct or small bowel. Possibly opacified disease. CT angiogram of the abdomen/pelvis revealed 20-30% stenosis of the SMA. Patent MIC, celiac. Evaluated by gastroenterology. Hepatitis panel negative. Pending ceruloplasmin, BOBBY, AMA, ASMA, SSA AMB, anti-Ronquillo, RP, scleroderma, double-stranded DNA, hemochromatosis Currently on lactulose 30 cc 3 times daily for elevated ammonia. Recheck level in a.m. : Culver catheter if indicated for accurate I's and O's in a critical patient Endo: Sliding scale insulin with Accu-Cheks to maintain euglycemia/every 6 hours low regimen TSH 1. Cortisol 25 Renal: Acute kidney injury Urine eosinophils negative Monitor urine output Accurate I's and Avoid nephrotoxic medication. Discontinued vancomycin 12/7 Nephrology consult with possible cardiac catheterization Heme: Macrocytic anemia Thrombocytopenia Coagulopathic state Follow-up on PT/INR/PTT and fibrinogen No indication for transfusion of blood products at this time ID: MRSA bacteremia 2D transthoracic echocardiogram revealed no signs of endocarditis. Infectious disease consultation initiated Day #3 vancomycin and piperacillin/tazobactam. Discontinued vancomycin 12/7. Currently on daptomycin day #1 Replete blood cultures x2 with sputum and urine today 12/ MSK: Left posterior olecranon fracture Followed by Dr. Blanco. Currently in splint immobilized. Follow-up in 2 weeks with x-rays CT left elbow today FEN: Acute hypokalemia Replace electrolytes as clinically indicated Currently on sterile water with 3 ampoules of sodium e bicarbonate 150 cc an hour. Switch to normal saline at 125 cc an hour today with low potassium and stable creatinine. 40 mEq KCl times now. Recheck at 1700 hrs. 1 g mag sulfate IV x1. Access -Utilize peripheral IV. Central line if indicated Prophylaxis -GI -pantoprazole -DVT-SCD/holding heparin drip in light of coagulopathic state. INR is currently 3.1 Follow-up 35 minutes critical care time Code Status: Full code Discussed Condition With: Patient. RN. CARE plan discussed and all questions answered.
[2018-07-11] MEDS ORDERED: Labetalol HCl Inj 100 MG/20 ML Vial IV.PUSH PRN (11:22)
[2018-07-11] MEDS: DAPTOmycin Inj 400 MG in Sodium Chlor 0.9% Inj 100 ML IV.SIG SCH (11:57)
[2018-07-11] MEDS ORDERED: Sodium Chloride 0.45 % Inj 500 ML IV.SIG ONE (12:00)
[2018-07-11] MEDS ORDERED: Albumin Human 25% Inj 100 ML IV.SIG ONE (12:00)
[2018-07-11] MEDS ORDERED: Mag Sulf 1 gm/100 ml Premix 100 ML IV.SIG ONE (12:00)
[2018-07-11] MEDS: Sod Chloride 0.9% Inj 1,000 ML IV.CONT SCH ×2 (12:18→20:25)
--- NOTE | 2018-07-11 13:24 | P.CONNP ---
<Edel Lantigua - Last Filed: 07/11/18 12:58> History of Present Illness Service: Nephrology Consult date: 07/11/18 Requesting Physician: Tito Cross Reason for Consult: Acute kidney injury Primary Care Provider: No Primary Care Physician Chief Complaint: Left elbow pain History of Present Illness: Patient is a 63-year-old male with a past medical history of ongoing alcoholism , tobacco abuse, and positive drug screen on this admission. Presented to emergency room with nausea, chest pain and a near syncopal episode. He reported that he fell and hit his left elbow about 1 weeks prior to presenting to hospital, was found to have a non displaced fracture, in splint now. Has positive blood cultures for MRSA. He also is found to have positive troponin which could possibly be demand ischemia due to sepsis. Nephrology is consulted for acute kidney injury with possible need for cardiac cath and carotid endarterectomy. No previous history of chronic kidney disease. Creatinine at 2.31, potassium level at 3.1. Non oliguric. CT of abdomen shows kidney with in normal limits. Patient reports shortness of breath and nausea. Denies any chest pain, vomiting, diarrhea, or poor intake. Review of Systems All other systems reviewed negative except as stated in HPI PMFSH - History History Provided By: Patient - Medical History Medical History: Medical History (Last Reviewed 07/11/18 @ 10:49 by Claudia Castro) Alcohol abuse History of MRSA infection Onset Date: ~07/10/18 Tobacco abuse - Surgical History Surgical History: Surgical History (Last Reviewed 07/11/18 @ 10:49 by Claudia Castro) No history of previous surgery - Family History Family History: Family History (Last Reviewed 07/11/18 @ 08:48 by Tito Cross MD) Other Coronary artery disease Diabetes mellitus - Tobacco History Second Hand Smoke Exposure: Yes Tobacco Use In Past 30 Days: Yes Smoking Status: Heavy tobacco smoker Tobacco Type: Cigarettes - Alcohol History How Often Do You Have a Drink Containing Alcohol: 4 or more times a week - Substance Use History Substance History: No History of Abuse - Travel History Recent Travel in the [facility] Within the Last 8 Weeks: No Recent Travel Out of the Country Within the Last 8 Weeks: No - Immunization History Tetanus Immunization: >5 Years Hx Influenza Vaccine This Season: No Medications and Allergies Allergies Allergy/AdvReac Type Severity Reaction Status Date / Time No Known Allergies Allergy Verified 07/08/18 12:30 Home Medications Medication Instructions Recorded Confirmed Type No Known Home Medications 07/08/18 07/08/18 History Active Medications: Active Medications Al Hydroxide/Mg Hydroxide (Milk Of Pj Liq) 30 ml PO Q12H PRN PRN Reason: Mild Constipation Albuterol (Albuterol Neb (Prn)) 2.5 mg NEB Q2HR NEB PRN PRN Reason: DYSPNEA Albuterol (Duoneb Neb (Lynda)) 1 ampul NEB Q4HR NEB [facility] Last Admin: 07/11/18 11:45 Dose: 1 ampul Flumazenil (Romazecon Inj) 0.2 mg IV.PUSH Q1M PRN PRN Reason: OVERSEDATION Haloperidol Lactate (Haldol Inj) 1 mg IV.PUSH Q15M PRN PRN Reason: for severe agitation Hydralazine HCl (Apresoline Inj) 10 mg IV.PUSH Q1H PRN PRN Reason: Sys Bp Greater Than 165 Mmhg Multivitamins 10 ml/ Thiamine HCl 100 mg/ Folic Acid 1 mg/Sodium Chloride 511.2 mls @ 125 mls/hr IV.SIG Q24H [facility] Stop: 07/12/18 12:06 Last Admin: 07/11/18 09:39 Dose: 125 mls/hr Daptomycin 400 mg/ Sodium (Chloride) 100 mls @ 200 mls/hr IV.SIG Q48H [facility] Last Infusion: 07/11/18 12:55 Dose: Infused Piperacillin/Tazobactam/Dextrose (Zosyn 2.25 Gm Premix) 50 mls @ 100 mls/hr IV.SIG Q8H [facility] Last Infusion: 07/11/18 11:30 Dose: Infused Sodium Chloride (Ns Inj) 1,000 mls @ 125 mls/hr IV.CONT .Q8H [facility] Last Admin: 07/11/18 12:18 Dose: 125 mls/hr Magnesium Sulfate/Dextrose (Magnesium Sulfate 1 Gm/D5w 100 Ml Premix) 100 mls @ 100 mls/hr IV.SIG ONCE ONE Stop: 07/11/18 12:59 Last Admin: 07/11/18 12:10 Dose: 100 mls/hr Albumin Human (Flexbumin 25% Inj) 100 mls @ 60 mls/hr IV.SIG ONCE ONE Stop: 07/11/18 13:39 Last Admin: 07/11/18 12:09 Dose: 60 mls/hr Labetalol HCl (Trandate Inj) 10 mg IV.PUSH Q1H PRN PRN Reason: Sbp>165, Dbp>90, Hr>65 Lactulose (Lactulose Liq) 30 ml PO DAILY PRN PRN Reason: SEVERE CONSITIPATION Lactulose (Lactulose Liq) 30 ml PO TID [facility] Last Admin: 07/11/18 09:40 Dose: Not Given Lorazepam (Ativan) 1 mg PO Q4H PRN PRN Reason: for CIWA 8-10 Lorazepam (Ativan) 2 mg PO Q2H PRN PRN Reason: for CIWA 11-14 Lorazepam (Ativan Inj) 2 mg IV.PUSH Q2H PRN PRN Reason: for CIWA 11-14 Lorazepam (Ativan Inj) 2 mg IV.PUSH Q1H PRN PRN Reason: for CIWA 15-20 Lorazepam (Ativan Inj) 2 mg IV.PUSH Q15M PRN PRN Reason: for CIWA > 20 Lorazepam (Ativan Inj) 1 mg IV.PUSH Q4H PRN PRN Reason: for CIWA 8-10 Morphine Sulfate (Morphine Inj) 2 mg IV.PUSH Q4H PRN PRN Reason: BREAKTHROUGH PAIN Last Admin: 07/10/18 23:56 Dose: 2 mg Mupirocin (Bactroban 2% Nasal Oint) 1 applicatio EACH NARE BID [facility] Naloxone HCl (Narcan Inj) 0.4 mg IV.PUSH UNSCH PRN PRN Reason: SEE LABEL COMMENTS Ondansetron HCl (Zofran Inj) 4 mg IV.PUSH Q6H PRN PRN Reason: NAUSEA OR VOMITING Pantoprazole Sodium (Protonix Inj) 40 mg IV.PUSH DAILY [facility] Last Admin: 07/11/18 09:41 Dose: 40 mg Sennosides (Senokot) 17.2 mg PO Q12H PRN PRN Reason: Moderate Constipation Sodium Chloride (Ns Flush) 2 ml IV.FLUSH PRN PRN PRN Reason: FLUSH AFTER USING IV ACCESS Sodium Chloride (Ns Flush) 2 ml IV.FLUSH BID [facility] Last Admin: 07/11/18 09:40 Dose: 2 ml Exam Vital signs: Vital Signs 07/10/18 13:00 07/10/18 13:15 12/06/18 13:30 Temperature Pulse Rate 101 H 98 H 96 H Respiratory Rate 20 20 20 Blood Pressure 136/60 127/54 L 118/55 L Pulse Oximetry 07/10/18 13:45 07/10/18 14:00 07/10/18 14:15 Temperature Pulse Rate 99 H 100 H 108 H Respiratory Rate 18 20 20 Blood Pressure 109/51 L 134/60 132/54 L Pulse Oximetry 07/10/18 14:30 07/10/18 14:45 07/10/18 15:00 Temperature Pulse Rate 100 H 99 H 105 H Respiratory Rate 20 20 20 Blood Pressure 134/63 109/51 L 132/62 Pulse Oximetry 97 07/10/18 15:15 07/10/18 15:30 07/10/18 15:32 Temperature Pulse Rate 97 H 96 H 98 H Respiratory Rate 20 19 24 Blood Pressure 116/54 L 108/53 L Pulse Oximetry 94 L 92 L 07/10/18 15:45 07/10/18 16:00 07/10/18 19:00 Temperature 98.5 F Pulse Rate 120 H 108 H 103 H Respiratory Rate 20 36 H Blood Pressure 156/68 H 138/65 142/62 H Pulse Oximetry 92 L 89 L 92 L 07/10/18 19:15 07/10/18 19:30 07/10/18 19:45 Temperature Pulse Rate 98 H 100 H 120 H Respiratory Rate 29 H 26 H 44 H Blood Pressure 132/59 L 117/56 L 157/67 H Pulse Oximetry 94 L 93 L 90 L 07/10/18 20:00 07/10/18 20:15 07/10/18 20:28 Temperature 97.6 F Pulse Rate 107 H 105 H 110 H Respiratory Rate 40 H 38 H 22 Blood Pressure 141/56 H 138/61 Pulse Oximetry 94 L 93 L 07/10/18 20:30 07/10/18 20:45 07/10/18 21:00 Temperature Pulse Rate 104 H 115 H 114 H Respiratory Rate 29 H 44 H 38 H Blood Pressure 144/66 H 135/63 136/63 Pulse Oximetry 98 93 L 95 07/10/18 21:15 07/10/18 21:30 07/10/18 21:45 Temperature Pulse Rate 113 H 110 H 105 H Respiratory Rate 41 H 33 H 29 H Blood Pressure 136/63 139/64 144/67 H Pulse Oximetry 94 L 94 L 94 L 07/10/18 22:00 07/10/18 22:30 07/10/18 22:45 Temperature Pulse Rate 104 H 106 H 100 H Respiratory Rate 29 H 36 H 32 H Blood Pressure 146/66 H 129/61 130/62 Pulse Oximetry 95 99 100 07/10/18 23:00 07/10/18 23:15 07/10/18 23:30 Temperature Pulse Rate 101 H 101 H 99 H Respiratory Rate 35 H 33 H 29 H Blood Pressure 137/65 138/62 142/64 H Pulse Oximetry 97 92 L 100 07/10/18 23:36 07/10/18 23:45 07/10/18 23:58 Temperature Pulse Rate 100 H 108 H Respiratory Rate 19 37 H 22 Blood Pressure 143/65 H Pulse Oximetry 95 07/11/18 00:00 07/11/18 00:15 07/11/18 00:30 Temperature 97.8 F Pulse Rate 112 H 107 H 106 H Respiratory Rate 27 H 25 H 23 Blood Pressure 142/63 H 144/66 H 143/66 H Pulse Oximetry 95 100 100 07/11/18 00:45 07/11/18 01:00 07/11/18 01:15 Temperature Pulse Rate 105 H 105 H 104 H Respiratory Rate 21 22 28 H Blood Pressure 145/65 H 125/56 L 134/61 Pulse Oximetry 100 100 100 07/11/18 01:30 07/11/18 01:45 07/11/18 02:00 Temperature Pulse Rate 101 H 102 H 102 H Respiratory Rate 21 22 27 H Blood Pressure 133/62 137/62 138/64 Pulse Oximetry 97 98 91 L 07/11/18 02:15 07/11/18 02:30 07/11/18 02:45 Temperature Pulse Rate 104 H 103 H 100 H Respiratory Rate 31 H 29 H 30 H Blood Pressure 134/62 134/67 134/68 Pulse Oximetry 99 99 99 07/11/18 03:00 07/11/18 03:15 07/11/18 03:30 Temperature Pulse Rate 98 H 99 H 98 H Respiratory Rate 25 H 25 H 26 H Blood Pressure 135/67 140/70 147/65 H Pulse Oximetry 100 100 100 07/11/18 03:45 07/11/18 03:54 07/11/18 04:00 Temperature 97.8 F Pulse Rate 98 H 98 H 101 H Respiratory Rate 25 H 19 27 H Blood Pressure 143/70 H 133/66 Pulse Oximetry 98 100 07/11/18 04:15 07/11/18 04:30 07/11/18 04:45 Temperature Pulse Rate 114 H 108 H 106 H Respiratory Rate 33 H 29 H 22 Blood Pressure 131/60 134/64 141/67 H Pulse Oximetry 91 L 100 99 07/11/18 05:00 07/11/18 05:15 07/11/18 05:30 Temperature Pulse Rate 105 H 105 H 105 H Respiratory Rate 22 25 H 23 Blood Pressure 139/63 137/63 139/65 Pulse Oximetry 99 100 98 07/11/18 05:45 07/11/18 06:00 07/11/18 06:15 Temperature Pulse Rate 101 H 100 H 99 H Respiratory Rate 22 21 22 Blood Pressure 135/64 137/67 141/67 H Pulse Oximetry 100 100 100 07/11/18 06:30 07/11/18 06:45 07/11/18 07:00 Temperature Pulse Rate 104 H 101 H 98 H Respiratory Rate 21 22 22 Blood Pressure 147/72 H 142/66 H 138/66 Pulse Oximetry 68 L 99 100 07/11/18 07:15 07/11/18 07:33 07/11/18 07:45 Temperature Pulse Rate 102 H 103 H 101 H Respiratory Rate 29 H 30 H 33 H Blood Pressure 137/67 125/59 L 130/63 Pulse Oximetry 100 99 98 07/11/18 08:00 07/11/18 08:15 07/11/18 08:16 Temperature Pulse Rate 98 H 101 H 101 H Respiratory Rate 27 H 29 H 24 Blood Pressure 132/67 147/73 H Pulse Oximetry 100 98 07/11/18 08:30 07/11/18 08:45 07/11/18 09:00 Temperature 97.8 F Pulse Rate 104 H 111 H 108 H Respiratory Rate 32 H 33 H 31 H Blood Pressure 143/67 H 157/71 H 175/97 H Pulse Oximetry 98 91 L 97 07/11/18 09:15 07/11/18 09:30 12 09:44 Temperature Pulse Rate 114 H 105 H Respiratory Rate 29 H 33 H Blood Pressure 149/59 H 163/72 H Pulse Oximetry 86 L 96 98 07/11/18 09:45 07/11/18 10:00 07/11/18 10:15 Temperature Pulse Rate 103 H 105 H 101 H Respiratory Rate 25 H 31 H 23 Blood Pressure 170/78 H 168/68 H 166/74 H Pulse Oximetry 98 97 97 07/11/18 10:30 07/11/18 10:45 07/11/18 11:00 Temperature Pulse Rate 100 H 107 H 100 H Respiratory Rate 24 23 25 H Blood Pressure 166/74 H 169/65 H 175/78 H Pulse Oximetry 99 97 98 07/11/18 11:22 07/11/18 11:30 07/11/18 11:45 Temperature Pulse Rate 109 H 103 H 100 H Respiratory Rate 38 H 34 H 33 H Blood Pressure 151/70 H 160/74 H 159/72 H Pulse Oximetry 91 L 94 L 97 07/11/18 11:47 07/11/18 12:00 07/11/18 12:15 Temperature Pulse Rate 103 H 106 H 109 H Respiratory Rate 27 H 25 H 27 H Blood Pressure 151/67 H 159/72 H Pulse Oximetry 100 94 L 07/11/18 12:30 07/11/18 12:45 Temperature Pulse Rate 108 H 113 H Respiratory Rate 32 H 32 H Blood Pressure 163/72 H 169/77 H Pulse Oximetry 95 94 L Intake & Output 07/10/18 07/11/18 07/11/18 18:59 06:59 18:59 Intake Total 1873.7 / 1873.7 2099 / 2100 650 / 650 Output Total 600 / 600 400 / 400 Balance 1273.7 / 1273.7 1700 / 1700 650 / 650 Weight 61.9 kg Intake: IV 1873.7 / 1873.7 2099 / 2100 650 / 650 Sodium Bicarbonate 8.4% Inj 150 2000 / 2000 MEQ In Sterile Water for Inj 850 ML @ 150 mls/hr IV.CONT . Q6H40M [facility] Rx#:[id number] Cubicin Inj 400 MG In NS Inj 100 / 100 100 ML @ 200 mls/hr IV.SIG Q48H [facility] Rx#:[id number] MVI-12 Inj 10 ML Thiamine Inj 511.2 / 511.2 100 MG Folvite Inj 1 MG In NS Inj 500 ML @ 125 mls/hr IV.SIG Q24H [facility] Rx#:[id number] Zosyn 2.25 GM Premix 50 ML @ 50 / 50 100 mls/hr IV.SIG Q8H [facility] Rx#: [id number] Zosyn 3.375 GM Premix 50 ML @ 100 / 100 100 / 100 100 mls/hr IV.SIG Q6H [facility] Rx#: [id number] NS Inj 1,000 ML @ Wide Open IV. 1000 / 1000 SIG BOLUS ONE Rx#:[id number] 1/2 Normal Saline Inj 500 ML @ 500 / 500 Wide Open IV.SIG BOLUS ONE Rx#: [id number] Output: Urine 600 / 600 400 / 400 Other: # Voids 3 Date of Last Bowel Movement 07/10/18 07/10/18 07/10/18 # Bowel Movements 5 Narrative: GENERAL: Alert and oriented. SKIN: Warm and dry. NECK: Supple, trachea midline. No JVD. CARDIOVASCULAR: Regular rate and rhythm without murmurs, gallops, or rubs. RESPIRATORY: Breath sounds equal bilaterally. No accessory muscle use. GASTROINTESTINAL: Abdomen soft, non-tender, nondistended. MUSCULOSKELETAL: No cyanosis, or edema. BACK: Nontender without obvious deformity. No CVA tenderness. Results - Lab Results 07/11/18 03:13 07/11/18 03:13 Most recent lab results ABG pH 7.34 (7.380-7.420) L 07/10/18 07:44 ABG pCO2 32 mmHg (38-42) L 07/10/18 07:44 ABG pO2 88 mmHg (61-120) 07/10/18 07:44 ABG HCO3 16 mmol/L (22-26) L* 07/10/18 07:44 Calcium 6.6 mg/dL (8.5-10.1) L* D 07/11/18 03:13 Phosphorus 3.3 mg/dL (2.5-4.9) 07/11/18 03:13 Magnesium 1.8 mg/dL (1.5-2.5) 07/11/18 03:13 Assessment and Plan - Assessment (1) Acute kidney injury Code(s): N17.9 - Acute kidney failure, unspecified Status: Acute Plan: Acute kidney injury with possible need for cardiac cath and carotid endarterectomy. No previous history of chronic kidney disease. Creatinine at 2.31, Non oliguric Creatinine started to increase on the 6th NEERU possible ATN from sepsis or contrast Nephropathy. Creatinine started to increase about 48 hours after receiving contrast. Also possibility of AIN with vancomycin use however random level not elevated. Urine EOS negative. CT of abdomen shows kidney with in normal limits. Recommend to continue IV fluids. Patient may need heart cath in future. Will Monitor strict I+O. Vancomycin has been discontinued. Renal dose antibiotics as appropriate. Have CT results so will hold off on renal US. Will follow urinary output and BMP. Serology is pending. <Dina Rivas - Last Filed: 07/16/18 15:51> History of Present Illness Primary Care Provider: No Primary Care Physician [facility] - Medical History Medical History: Medical History (Last Reviewed 07/11/18 @ 10:49 by Claudia Castro) Alcohol abuse History of MRSA infection Onset Date: ~07/10/18 Tobacco abuse - Surgical History Surgical History: Surgical History (Last Reviewed 07/11/18 @ 10:49 by Claudia Castro) No history of previous surgery - Family History Family History: Family History (Last Reviewed 07/11/18 @ 08:48 by Tito Cross MD) Other Coronary artery disease Diabetes mellitus Medications and Allergies Active Medications: Active Medications Al Hydroxide/Mg Hydroxide (Milk Of Pj White) 30 ml PO Q12H PRN PRN Reason: Mild Constipation Albuterol (Albuterol Neb (Prn)) 2.5 mg NEB Q2HR NEB PRN PRN Reason: DYSPNEA Albuterol (Duoneb Neb (Prn)) 1 ampul NEB Q2HR NEB PRN PRN Reason: SHORTNESS OF BREATH Last Admin: 07/14/18 08:20 Dose: 1 ampul Chlorhexidine Gluconate (Peridex 0.12% Oral Kit) 15 ml OROPHARYNG BID@0800, 1999 [facility] Last Admin: 07/16/18 08:49 Dose: 15 ml Flumazenil (Romazecon Inj) 0.2 mg IV.PUSH Q1M PRN PRN Reason: OVERSEDATION Haloperidol Lactate (Haldol Inj) 1 mg IV.PUSH Q15M PRN PRN Reason: for severe agitation Hydralazine HCl (Apresoline Inj) 10 mg IV.PUSH Q1H PRN PRN Reason: Sys Bp Greater Than 165 Mmhg Last Admin: 07/15/18 18:17 Dose: 10 mg Daptomycin 400 mg/ Sodium (Chloride) 100 mls @ 200 mls/hr IV.SIG Q48H [facility] Last Infusion: 07/15/18 11:42 Dose: Infused Piperacillin/Tazobactam/Dextrose (Zosyn 2.25 Gm Premix) 50 mls @ 100 mls/hr IV.SIG Q8H [facility] Last Admin: 07/16/18 10:40 Dose: 100 mls/hr Sodium Chloride (Ns Inj) 1,000 mls @ 30 mls/hr IV.CONT .Q24H [facility] Last Admin: 07/16/18 08:51 Dose: Not Given Bumetanide (Bumex Inj) 25 mg in 100 mls @ 4 mls/hr IV.CONT .Q24H [facility] Last Admin: 07/16/18 14:07 Dose: 1 mg/hr, 4 mls/hr Albumin Human (Alburx 5% Inj) 500 mls @ 250 mls/hr IV.SIG Q12H [facility] Last Admin: 07/16/18 14:13 Dose: 250 mls/hr Propofol (Diprivan 1000 Mg/100 Ml Inj) 1,000 mg in 100 mls @ 2.376 mls/hr IV.CONT TITRATE PRN; Protocol PRN Reason: Per Protocol Last Admin: 07/15/18 22:08 Dose: 20 mcg/kg/min, 9.5 mls/hr Linezolid (Zyvox 600 Mg Premix) 300 mls @ 300 mls/hr IV.SIG Q12H [facility] Last Infusion: 07/16/18 06:00 Dose: Infused Labetalol HCl (Trandate Inj) 10 mg IV.PUSH Q1H PRN PRN Reason: Sbp>165, Dbp>90, Hr>65 Lactulose (Lactulose Liq) 30 ml PO DAILY PRN PRN Reason: SEVERE CONSITIPATION Lactulose (Lactulose Liq) 30 ml PO TID [facility] Last Admin: 07/16/18 14:07 Dose: Not Given Lorazepam (Ativan) 1 mg PO Q4H PRN PRN Reason: for CIWA 8-10 Lorazepam (Ativan) 2 mg PO Q2H PRN PRN Reason: for CIWA 11-14 Lorazepam (Ativan Inj) 2 mg IV.PUSH Q2H PRN PRN Reason: for CIWA 11-14 Last Admin: 07/12/18 23:49 Dose: 2 mg Lorazepam (Ativan Inj) 2 mg IV.PUSH Q1H PRN PRN Reason: for CIWA 15-20 Last Admin: 07/11/18 21:37 Dose: 2 mg Lorazepam (Ativan Inj) 2 mg IV.PUSH Q15M PRN PRN Reason: for CIWA > 20 Lorazepam (Ativan Inj) 1 mg IV.PUSH Q4H PRN PRN Reason: for CIWA 8-10 Last Admin: 07/12/18 10:48 Dose: 1 mg Miscellaneous Medication () 1 each OROPHARYNG 0000,0400,1200,1600 [facility] Last Admin: 07/16/18 14:07 Dose: 1 each Morphine Sulfate (Morphine Inj) 2 mg IV.PUSH Q4H PRN PRN Reason: BREAKTHROUGH PAIN Last Admin: 07/16/18 04:05 Dose: 2 mg Mupirocin (Bactroban 2% Nasal Oint) 1 applicatio EACH NARE BID [facility] Last Admin: 07/16/18 08:49 Dose: 1 applicatio Naloxone HCl (Narcan Inj) 0.4 mg IV.PUSH UNSCH PRN PRN Reason: SEE LABEL COMMENTS Ondansetron HCl (Zofran Inj) 4 mg IV.PUSH Q6H PRN PRN Reason: NAUSEA OR VOMITING Pantoprazole Sodium (Protonix Inj) 40 mg IV.PUSH DAILY [facility] Last Admin: 07/16/18 08:48 Dose: 40 mg Sennosides (Senokot) 17.2 mg PO Q12H PRN PRN Reason: Moderate Constipation Sodium Chloride (Ns Flush) 2 ml IV.FLUSH PRN PRN PRN Reason: FLUSH AFTER USING IV ACCESS Sodium Chloride (Ns Flush) 2 ml IV.FLUSH BID [facility] Last Admin: 07/16/18 08:50 Dose: 2 ml Exam Vital signs: Vital Signs 07/15/18 16:00 07/15/18 16:36 07/15/18 17:00 Temperature 98.8 F Pulse Rate 75 75 Respiratory Rate 21 20 19 Blood Pressure 160/99 H 162/76 H Pulse Oximetry 100 100 100 07/15/18 18:00 07/15/18 19:00 07/15/18 20:00 Temperature 97.6 F Pulse Rate 74 79 77 Respiratory Rate 19 23 21 Blood Pressure 163/77 H 144/68 H 145/70 H Pulse Oximetry 100 99 99 07/15/18 21:00 07/15/18 21:41 07/15/18 22:00 Temperature Pulse Rate 79 76 Respiratory Rate 21 21 20 Blood Pressure 144/69 H 142/66 H Pulse Oximetry 100 100 100 07/15/18 23:00 07/15/18 23:57 07/16/18 00:00 Temperature 97.6 F Pulse Rate 76 78 Respiratory Rate 20 19 21 Blood Pressure 136/68 138/68 Pulse Oximetry 99 99 99 07/16/18 01:00 07/16/18 02:00 07/16/18 03:00 Temperature Pulse Rate 77 78 78 Respiratory Rate 20 22 24 Blood Pressure 142/66 H 139/66 140/66 Pulse Oximetry 98 99 99 07/16/18 03:46 07/16/18 04:00 07/16/18 04:03 Temperature 98.5 F Pulse Rate 77 84 Respiratory Rate 21 28 H 31 H Blood Pressure 136/71 Pulse Oximetry 99 99 98 07/16/18 05:00 07/16/18 06:00 07/16/18 07:00 Temperature Pulse Rate 76 76 76 Respiratory Rate 19 18 17 Blood Pressure 130/60 137/64 136/63 Pulse Oximetry 98 99 98 07/16/18 08:00 07/16/18 08:56 07/16/18 09:00 Temperature 98.3 F Pulse Rate 75 79 Respiratory Rate 18 24 Blood Pressure 136/63 130/68 Pulse Oximetry 98 98 98 07/16/18 10:00 07/16/18 11:00 07/16/18 12:00 Temperature 97.8 F Pulse Rate 78 75 74 Respiratory Rate 17 16 15 Blood Pressure 128/58 L 129/60 136/65 Pulse Oximetry 97 97 97 07/16/18 12:35 07/16/18 13:00 07/16/18 14:00 Temperature Pulse Rate 74 74 Respiratory Rate 14 15 Blood Pressure 138/65 138/67 Pulse Oximetry 98 98 98 Intake & Output 07/15/18 07/16/18 07/16/18 18:59 06:59 18:59 Intake Total 2400 / 2400 950 / 950 100 / 100 Output Total 3580 / 3580 1450 / 1450 Balance -1180 / -1180 -500 / -500 100 / 100 Weight 76.1 kg Intake: IV 2400 / 2400 950 / 950 100 / 100 Bumex Inj 25 mg In 100 ml @ 1 100 / 100 100 / 100 MG/HR 4 mls/hr IV.CONT .Q24H [facility] Rx#:[id number] Diprivan 1000 mg/100 ml Inj 1, 100 / 100 100 / 100 000 mg In 100 ml @ 5 MCG/KG/MIN 2.376 mls/hr IV.CONT TITRATE PRN Rx#:[id number] NS Inj 1,000 ML @ 30 mls/hr IV. 1000 / 1000 CONT .Q24H [facility] Rx#:[id number] Alburx 5% Inj 500 ML @ 250 mls/ 500 / 500 500 / 500 hr IV.SIG Q12H [facility] Rx#:[id number] Cubicin Inj 400 MG In NS Inj 100 / 100 100 ML @ 200 mls/hr IV.SIG Q48H [facility] Rx#:[id number] Zyvox 600 mg Premix 300 ML @ 300 / 300 300 / 300 300 mls/hr IV.SIG Q12H [facility] Rx#: [id number] Zosyn 2.25 GM Premix 50 ML @ 100 / 100 50 / 50 100 mls/hr IV.SIG Q8H [facility] Rx#: [id number] KCl 20 mEq Premix Inj 20 meq In 200 / 200 100 ml @ 50 mls/hr IV.SIG Q2H [facility] Rx#:[id number] Oral 0 / 0 Output: Pleural Fluid 630 / 630 Urine Amount (Catheter) 2900 / 2900 1400 / 1400 Indwelling Urethral Catheter 2900 / 2900 1400 / 1400 Chest Tube Drainage 50 / 50 50 / 50 Right 50 / 50 50 / 50 Other: Date of Last Bowel Movement 07/10/18 07/10/18 07/10/18 # Bowel Movements 0 0 Results - Lab Results 07/15/18 09:04 07/16/18 10:45 Most recent lab results ABG pH 7.38 (7.380-7.420) 07/13/18 08:44 ABG pCO2 45 mmHg (38-42) H 07/13/18 08:44 ABG pO2 248 mmHg (61-120) H 07/13/18 08:44 ABG HCO3 26 mmol/L (22-26) 07/13/18 08:44 Calcium 8.3 mg/dL (8.5-10.1) L 07/16/18 10:45 Phosphorus 5.7 mg/dL (2.5-4.9) H 07/16/18 10:45 Magnesium 2.5 mg/dL (1.5-2.5) 07/14/18 05:32 Assessment and Plan - Assessment (1) Acute kidney injury Code(s): N17.9 - Acute kidney failure, unspecified Status: Acute Plan: Patient seen and examined, agree with above. Patient has NEERU, Differential will be ATN, Contrast Nephropathy. Continue IVF and follow the urine out put and BMP.
[2018-07-11] MEDS: hydrALAZINE HCl Inj 20 MG/ML Vial IV.PUSH PRN ×2 (13:39→15:05)
--- NOTE | 2018-07-11 14:30 | P.PNGI ---
Subjective Interval history: Pt is resting in bed, renal function is up today. He states he has not urinated at all. Discussed with RN, may need bladder scan. Cardiac cath cancelled due to elevated renal function. Pt denies nausea, vomiting. Continues to have diffuse abdominal pain. Has not had BM. Reports he is passing flatus. Physical Exam Vital signs: Vital Signs 07/10/18 14:30 07/10/18 14:45 07/10/18 15:00 Temperature Pulse Rate 100 H 99 H 105 H Respiratory Rate 20 20 20 Blood Pressure 134/63 109/51 L 132/62 Pulse Oximetry 97 07/10/18 15:15 07/10/18 15:30 07/10/18 15:32 Temperature Pulse Rate 97 H 96 H 98 H Respiratory Rate 20 19 24 Blood Pressure 116/54 L 108/53 L Pulse Oximetry 94 L 92 L 07/10/18 15:45 07/10/18 16:00 07/10/18 19:00 Temperature 98.5 F Pulse Rate 120 H 108 H 103 H Respiratory Rate 20 36 H Blood Pressure 156/68 H 138/65 142/62 H Pulse Oximetry 92 L 89 L 92 L 07/10/18 19:15 07/10/18 19:30 07/10/18 19:45 Temperature Pulse Rate 98 H 100 H 120 H Respiratory Rate 29 H 26 H 44 H Blood Pressure 132/59 L 117/56 L 157/67 H Pulse Oximetry 94 L 93 L 90 L 07/10/18 20:00 07/10/18 20:15 07/10/18 20:28 Temperature 97.6 F Pulse Rate 107 H 105 H 110 H Respiratory Rate 40 H 38 H 22 Blood Pressure 141/56 H 138/61 Pulse Oximetry 94 L 93 L 07/10/18 20:30 07/10/18 20:45 07/10/18 21:00 Temperature Pulse Rate 104 H 115 H 114 H Respiratory Rate 29 H 44 H 38 H Blood Pressure 144/66 H 135/63 136/63 Pulse Oximetry 98 93 L 95 07/10/18 21:15 07/10/18 21:30 07/10/18 21:45 Temperature Pulse Rate 113 H 110 H 105 H Respiratory Rate 41 H 33 H 29 H Blood Pressure 136/63 139/64 144/67 H Pulse Oximetry 94 L 94 L 94 L 07/10/18 22:00 07/10/18 22:30 07/10/18 22:45 Temperature Pulse Rate 104 H 106 H 100 H Respiratory Rate 29 H 36 H 32 H Blood Pressure 146/66 H 129/61 130/62 Pulse Oximetry 95 99 100 07/10/18 23:00 07/10/18 23:15 07/10/18 23:30 Temperature Pulse Rate 101 H 101 H 99 H Respiratory Rate 35 H 33 H 29 H Blood Pressure 137/65 138/62 142/64 H Pulse Oximetry 97 92 L 100 07/10/18 23:36 07/10/18 23:45 07/10/18 23:58 Temperature Pulse Rate 100 H 108 H Respiratory Rate 19 37 H 22 Blood Pressure 143/65 H Pulse Oximetry 95 07/11/18 00:00 07/11/18 00:15 07/11/18 00:30 Temperature 97.8 F Pulse Rate 112 H 107 H 106 H Respiratory Rate 27 H 25 H 23 Blood Pressure 142/63 H 144/66 H 143/66 H Pulse Oximetry 95 100 100 07/11/18 00:45 07/11/18 01:00 07/11/18 01:15 Temperature Pulse Rate 105 H 105 H 104 H Respiratory Rate 21 22 28 H Blood Pressure 145/65 H 125/56 L 134/61 Pulse Oximetry 100 100 100 07/11/18 01:30 07/11/18 01:45 07/11/18 02:00 Temperature Pulse Rate 101 H 102 H 102 H Respiratory Rate 21 22 27 H Blood Pressure 133/62 137/62 138/64 Pulse Oximetry 97 98 91 L 07/11/18 02:15 07/11/18 02:30 07/11/18 02:45 Temperature Pulse Rate 104 H 103 H 100 H Respiratory Rate 31 H 29 H 30 H Blood Pressure 134/62 134/67 134/68 Pulse Oximetry 99 99 99 07/11/18 03:00 07/11/18 03:15 07/11/18 03:30 Temperature Pulse Rate 98 H 99 H 98 H Respiratory Rate 25 H 25 H 26 H Blood Pressure 135/67 140/70 147/65 H Pulse Oximetry 100 100 100 07/11/18 03:45 07/11/18 03:54 07/11/18 04:00 Temperature 97.8 F Pulse Rate 98 H 98 H 101 H Respiratory Rate 25 H 19 27 H Blood Pressure 143/70 H 133/66 Pulse Oximetry 98 100 07/11/18 04:15 07/11/18 04:30 07/11/18 04:45 Temperature Pulse Rate 114 H 108 H 106 H Respiratory Rate 33 H 29 H 22 Blood Pressure 131/60 134/64 141/67 H Pulse Oximetry 91 L 100 99 07/11/18 05:00 07/11/18 05:15 07/11/18 05:30 Temperature Pulse Rate 105 H 105 H 105 H Respiratory Rate 22 25 H 23 Blood Pressure 139/63 137/63 139/65 Pulse Oximetry 99 100 98 07/11/18 05:45 07/11/18 06:00 07/11/18 06:15 Temperature Pulse Rate 101 H 100 H 99 H Respiratory Rate 22 21 22 Blood Pressure 135/64 137/67 141/67 H Pulse Oximetry 100 100 100 07/11/18 06:30 07/11/18 06:45 07/11/18 07:00 Temperature Pulse Rate 104 H 101 H 98 H Respiratory Rate 21 22 22 Blood Pressure 147/72 H 142/66 H 138/66 Pulse Oximetry 68 L 99 100 07/11/18 07:15 07/11/18 07:33 07/11/18 07:45 Temperature Pulse Rate 102 H 103 H 101 H Respiratory Rate 29 H 30 H 33 H Blood Pressure 137/67 125/59 L 130/63 Pulse Oximetry 100 99 98 07/11/18 08:00 07/11/18 08:15 07/11/18 08:16 Temperature Pulse Rate 98 H 101 H 101 H Respiratory Rate 27 H 29 H 24 Blood Pressure 132/67 147/73 H Pulse Oximetry 100 98 07/11/18 08:30 07/11/18 08:45 07/11/18 09:00 Temperature 97.8 F Pulse Rate 104 H 111 H 108 H Respiratory Rate 32 H 33 H 31 H Blood Pressure 143/67 H 157/71 H 175/97 H Pulse Oximetry 98 91 L 97 07/11/18 09:15 07/11/18 09:30 07/11/18 09:44 Temperature Pulse Rate 114 H 105 H Respiratory Rate 29 H 33 H Blood Pressure 149/59 H 163/72 H Pulse Oximetry 86 L 96 98 07/11/18 09:45 07/11/18 10:00 07/11/18 10:15 Temperature Pulse Rate 103 H 105 H 101 H Respiratory Rate 25 H 31 H 23 Blood Pressure 170/78 H 168/68 H 166/74 H Pulse Oximetry 98 97 97 07/11/18 10:30 07/11/18 10:45 07/11/18 11:00 Temperature Pulse Rate 100 H 107 H 100 H Respiratory Rate 24 23 25 H Blood Pressure 166/74 H 169/65 H 175/78 H Pulse Oximetry 99 97 98 07/11/18 11:22 07/11/18 11:30 07/11/18 11:45 Temperature Pulse Rate 109 H 103 H 100 H Respiratory Rate 38 H 34 H 33 H Blood Pressure 151/70 H 160/74 H 159/72 H Pulse Oximetry 91 L 94 L 97 07/11/18 11:47 07/11/18 12:00 07/11/18 12:15 Temperature Pulse Rate 103 H 106 H 109 H Respiratory Rate 27 H 25 H 27 H Blood Pressure 151/67 H 159/72 H Pulse Oximetry 100 94 L 07/11/18 12:30 07/11/18 12:45 Temperature Pulse Rate 108 H 113 H Respiratory Rate 32 H 32 H Blood Pressure 163/72 H 169/77 H Pulse Oximetry 95 94 L Intake & Output 07/10/18 07/11/18 07/11/18 18:59 06:59 18:59 Intake Total 1873.7 / 1873.7 2099 / 2099 800 / 800 Output Total 600 / 600 400 / 400 Balance 1273.7 / 1273.7 1700 / 1700 800 / 800 Weight 61.9 kg Intake: IV 1873.7 / 1873.7 2099 / 2099 800 / 800 Sodium Bicarbonate 8.4% Inj 150 2000 / 2000 MEQ In Sterile Water for Inj 850 ML @ 150 mls/hr IV.CONT . Q6H40M [facility] Rx#:[id number] Cubicin Inj 400 MG In NS Inj 100 / 100 100 ML @ 200 mls/hr IV.SIG Q48H [facility] Rx#:[id number] Magnesium Sulfate 1 gm/D5W 100 100 / 100 ml Premix 100 ML @ 100 mls/hr IV.SIG ONCE ONE Rx#:[id number] MVI-12 Inj 10 ML Thiamine Inj 511.2 / 511.2 100 MG Folvite Inj 1 MG In NS Inj 500 ML @ 125 mls/hr IV.SIG Q24H [facility] Rx#:[id number] Zosyn 2.25 GM Premix 50 ML @ 50 / 50 100 mls/hr IV.SIG Q8H [facility] Rx#: [id number] Zosyn 3.375 GM Premix 50 ML @ 100 / 100 100 / 100 50 / 50 100 mls/hr IV.SIG Q6H [facility] Rx#: [id number] NS Inj 1,000 ML @ Wide Open IV. 1000 / 1000 SIG BOLUS ONE Rx#:[id number] 1/2 Normal Saline Inj 500 ML @ 500 / 500 Wide Open IV.SIG BOLUS ONE Rx#: [id number] Output: Urine 600 / 600 400 / 400 Other: # Voids 3 Date of Last Bowel Movement 07/10/18 07/10/18 07/10/18 # Bowel Movements 5 - Constitutional no acute distress - Routine HEENT Exam Head: Present: normocephalic, atraumatic - Routine Respiratory Exam Absent: accessory muscle use - Routine Abdominal Exam Present: soft, normoactive bowel sounds, tenderness (diffusely tender ), distended (mildly distended ) - Routine Skin Exam Present: dry, warm - Routine Neurological Exam Present: alert, oriented X3 Results - Labs CBC & Chem 7: 07/11/18 03:13 07/11/18 03:13 Laboratory Results - last 24 hr 07/10/18 07/10/18 07/10/18 04:00 13:56 13:56 WBC RBC Hgb Hct MCV MCH MCHC RDW Plt Count MPV Prelim Diff (Auto) Neut % (Auto) Lymph % (Auto) [place] % (Auto) Eos % (Auto) Baso % (Auto) Neut # (Auto) Lymph # (Auto) [place] # (Auto) Eos # (Auto) Baso # (Auto) WBC Differential Seg Neuts % (Manual) Band Neuts % (Manual) Lymphocytes % (Manual) Monocytes % (Manual) Eosinophils % (Manual) Basophils % (Manual) Myelocytes % (Man) Abs Neuts (Manual) Differential Comment Toxic Granulation Toxic Vacuolation Platelet Estimate Platelet Morphology RBC Morphology PT INR APTT Sodium 141 Potassium 4.1 Chloride 106 Carbon Dioxide 17.8 L Anion Gap 17 H BUN 22 H Creatinine 1.85 H Estimated GFR 37 L POC Glucose Random Glucose 118 H Lactic Acid 9.9 H* Calcium 7.5 L Calcium Adj for Albumin Phosphorus Magnesium Total Bilirubin AST ALT Alkaline Phosphatase Ammonia Total Creatine Kinase CK-MB (CK-2) CK-MB (CK-2) % Troponin I 9.95 H* Total Protein Albumin Amylase 66 Lipase TSH Urine Color Urine Clarity Urine pH Ur Specific Turner Urine Protein Urine Glucose (UA) Urine Ketones Urine Occult Blood Urine Nitrate Urine Bilirubin Urine Urobilinogen Ur Leukocyte Esterase Urine RBC Urine WBC Ur Squamous Epith Cells Amorphous Sediment Urine Mucus Micro UA Comment Ur Microscopic Review Urine Culture Comments Urine Eosinophils Ur Random Creatinine Ur Random Sodium Nasal Screen MRSA (PCR) Mrsa detected Random Vancomycin 07/10/18 07/10/18 07/10/18 19:40 22:30 22:30 WBC RBC Hgb Hct MCV MCH MCHC RDW Plt Count MPV Prelim Diff (Auto) Neut % (Auto) Lymph % (Auto) [place] % (Auto) Eos % (Auto) Baso % (Auto) Neut # (Auto) Lymph # (Auto) [place] # (Auto) Eos # (Auto) Baso # (Auto) WBC Differential Seg Neuts % (Manual) Band Neuts % (Manual) Lymphocytes % (Manual) Monocytes % (Manual) Eosinophils % (Manual) Basophils % (Manual) Myelocytes % (Man) Abs Neuts (Manual) Differential Comment Toxic Granulation Toxic Vacuolation Platelet Estimate Platelet Morphology RBC Morphology PT INR APTT Sodium Potassium Chloride Carbon Dioxide Anion Gap BUN Creatinine Estimated GFR POC Glucose Random Glucose Lactic Acid 7.6 H* Calcium Calcium Adj for Albumin Phosphorus Magnesium Total Bilirubin AST ALT Alkaline Phosphatase Ammonia Total Creatine Kinase CK-MB (CK-2) CK-MB (CK-2) % Troponin I Total Protein Albumin Amylase Lipase TSH Urine Color Whitney Urine Clarity Hazy H Urine pH 5.0 Ur Specific Turner 1.056 H Urine Protein 30 H Urine Glucose (UA) Negative Urine Ketones Negative Urine Occult Blood Small H Urine Nitrate Negative Urine Bilirubin Negative Urine Urobilinogen Less than 2 Ur Leukocyte Esterase Negative Urine RBC 15 H Urine WBC 12 H Ur Squamous Epith Cells 1 Amorphous Sediment Rare H Urine Mucus Few H Micro UA Comment Culture indicated Ur Microscopic Review Not Reportable Urine Culture Comments Culture indicated Urine Eosinophils Ur Random Creatinine 112 Ur Random Sodium Less than 5 Nasal Screen MRSA (PCR) Random Vancomycin 07/10/18 07/11/18 07/11/18 22:30 03:13 03:13 WBC RBC Hgb Hct MCV MCH MCHC RDW Plt Count MPV Prelim Diff (Auto) Neut % (Auto) Lymph % (Auto) [place] % (Auto) Eos % (Auto) Baso % (Auto) Neut # (Auto) Lymph # (Auto) [place] # (Auto) Eos # (Auto) Baso # (Auto) WBC Differential Seg Neuts % (Manual) Band Neuts % (Manual) Lymphocytes % (Manual) Monocytes % (Manual) Eosinophils % (Manual) Basophils % (Manual) Myelocytes % (Man) Abs Neuts (Manual) Differential Comment Toxic Granulation Toxic Vacuolation Platelet Estimate Platelet Morphology RBC Morphology PT INR APTT Sodium Potassium Chloride Carbon Dioxide Anion Gap BUN Creatinine Estimated GFR POC Glucose Random Glucose Lactic Acid 5.1 H* Calcium Calcium Adj for Albumin Phosphorus Magnesium Total Bilirubin AST ALT Alkaline Phosphatase Ammonia 33 H Total Creatine Kinase CK-MB (CK-2) CK-MB (CK-2) % Troponin I Total Protein Albumin Amylase Lipase TSH Urine Color Urine Clarity Urine pH Ur Specific Turner Urine Protein Urine Glucose (UA) Urine Ketones Urine Occult Blood Urine Nitrate Urine Bilirubin Urine Urobilinogen Ur Leukocyte Esterase Urine RBC Urine WBC Ur Squamous Epith Cells Amorphous Sediment Urine Mucus Micro UA Comment Ur Microscopic Review Urine Culture Comments Urine Eosinophils None seen Ur Random Creatinine Ur Random Sodium Nasal Screen MRSA (PCR) Random Vancomycin 07/11/18 07/11/18 07/11/18 03:13 03:13 03:13 WBC 6.3 RBC 3.02 L Hgb 10.1 L D Hct 29.2 L MCV 96.6 D MCH 33.4 MCHC 34.6 RDW 12.8 Plt Count 42 L MPV 10.9 Prelim Diff (Auto) Slide review pending Neut % (Auto) 75.2 H Lymph % (Auto) 14.4 [place] % (Auto) 9.4 H Eos % (Auto) 0.6 Baso % (Auto) 0.4 Neut # (Auto) 4.7 Lymph # (Auto) 0.9 L [place] # (Auto) 0.6 Eos # (Auto) 0.0 Baso # (Auto) 0.0 WBC Differential Manual diff final Seg Neuts % (Manual) 60 Band Neuts % (Manual) 18 H Lymphocytes % (Manual) 16 Monocytes % (Manual) 3 Eosinophils % (Manual) 1 Basophils % (Manual) 1 Myelocytes % (Man) 1 H Abs Neuts (Manual) 5.0 Differential Comment . Toxic Granulation 1+ H Toxic Vacuolation Present H Platelet Estimate Low L Platelet Morphology Enlarged H RBC Morphology Normal PT 31.0 H D INR 3.1 APTT 41.2 H D Sodium 138 Potassium 3.1 L D Chloride 100 Carbon Dioxide 26.0 Anion Gap 12 BUN 26 H Creatinine 2.31 H Estimated GFR 29 L POC Glucose Random Glucose 130 H Lactic Acid Calcium 6.6 L* D Calcium Adj for Albumin 8.0 L Phosphorus 3.3 Magnesium 1.8 Total Bilirubin 3.2 H AST 2701 H ALT 1873 H Alkaline Phosphatase 86 Ammonia Total Creatine Kinase 400 H CK-MB (CK-2) 53.4 H CK-MB (CK-2) % 13.4 H* Troponin I Total Protein 5.7 L D Albumin 2.2 L Amylase Lipase 815 H TSH 1.000 Urine Color Urine Clarity Urine pH Ur Specific Turner Urine Protein Urine Glucose (UA) Urine Ketones Urine Occult Blood Urine Nitrate Urine Bilirubin Urine Urobilinogen Ur Leukocyte Esterase Urine RBC Urine WBC Ur Squamous Epith Cells Amorphous Sediment Urine Mucus Micro UA Comment Ur Microscopic Review Urine Culture Comments Urine Eosinophils Ur Random Creatinine Ur Random Sodium Nasal Screen MRSA (PCR) Random Vancomycin 30.8 07/11/18 07/11/18 07:46 11:47 WBC RBC Hgb Hct MCV MCH MCHC RDW Plt Count MPV Prelim Diff (Auto) Neut % (Auto) Lymph % (Auto) [place] % (Auto) Eos % (Auto) Baso % (Auto) Neut # (Auto) Lymph # (Auto) [place] # (Auto) Eos # (Auto) Baso # (Auto) WBC Differential Seg Neuts % (Manual) Band Neuts % (Manual) Lymphocytes % (Manual) Monocytes % (Manual) Eosinophils % (Manual) Basophils % (Manual) Myelocytes % (Man) Abs Neuts (Manual) Differential Comment Toxic Granulation Toxic Vacuolation Platelet Estimate Platelet Morphology RBC Morphology PT INR APTT Sodium Potassium Chloride Carbon Dioxide Anion Gap BUN Creatinine Estimated GFR POC Glucose 105 Random Glucose Lactic Acid 4.7 H* Calcium Calcium Adj for Albumin Phosphorus Magnesium Total Bilirubin AST ALT Alkaline Phosphatase Ammonia Total Creatine Kinase CK-MB (CK-2) CK-MB (CK-2) % Troponin I Total Protein Albumin Amylase Lipase TSH Urine Color Urine Clarity Urine pH Ur Specific Turner Urine Protein Urine Glucose (UA) Urine Ketones Urine Occult Blood Urine Nitrate Urine Bilirubin Urine Urobilinogen Ur Leukocyte Esterase Urine RBC Urine WBC Ur Squamous Epith Cells Amorphous Sediment Urine Mucus Micro UA Comment Ur Microscopic Review Urine Culture Comments Urine Eosinophils Ur Random Creatinine Ur Random Sodium Nasal Screen MRSA (PCR) Random Vancomycin Microbiology 07/08/18 19:30 Blood - Peripheral Aerobic Blood Culture - Final S. aureus MRSA 07/08/18 19:30 Blood - Peripheral Anaerobic Blood Culture - Final S. aureus MRSA 07/08/18 19:35 Blood - Peripheral Aerobic Blood Culture - Final S. aureus MRSA 07/08/18 19:35 Blood - Peripheral Anaerobic Blood Culture - Preliminary Staphylococcus coag negative 07/10/18 11:15 Blood - Peripheral Aerobic Blood Culture - Preliminary No growth in 1 day 07/10/18 11:15 Blood - Peripheral Anaerobic Blood Culture - Preliminary No growth in 1 day 07/10/18 11:20 Blood - Peripheral Aerobic Blood Culture - Preliminary No growth in 1 day 07/10/18 11:20 Blood - Peripheral Anaerobic Blood Culture - Preliminary No growth in 1 day Assessment and Plan (1) Liver failure Status: Acute Code(s): K72.90 - Hepatic failure, unspecified without coma (2) Hyperbilirubinemia Status: Acute Code(s): E80.6 - Other disorders of bilirubin metabolism - Plan Assessment: - Elevated LFTs with findings indicative of cirrhosis He denies IV drug use, tattoos or any high risk sexual behaviors. Denies personal or family history of liver issues. Does admit to smoking cocaine. Patient states he smokes 1 pack/day and drinks a sixpack of beer daily. LFTs trending up since admission. Pt was transferred to [facility] overnight after becoming hypotensive, now on a Talon gtt. Liver work up: BOBBY, ASMA, AMA pending. Ceruloplasmin pending. AAT pending. AFP-3.7. Iron-123 TIBC-217 %sat-56.7 [id number] Hepatitis panel negative. 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 The SMA and MIC are patent. Hepatic steatosis. HIDA (07/09) No activity in intrahepatic ducts, common duct or small bowel. Considerations include include acute obstruction of the common duct and diffuse hepatocellular disease. CT scan shows no dilatation of the common duct or intrahepatic ducts. Diffuse hepatocellular disease is suspected. Given history of cirrhosis, exam is unreliable, do not suspect acute cholecystitis. US gallbladder (07/08) Small, nonspecific pericholecystic fluid without stones , wall thickening or sonographic Lundy's sign. The fluid may be on the basis of hepatocellular disease. The ultrasound does not support acute cholecystitis. Fatty infiltrated and mildly enlarged liver. - Anemia- He denies ever having had a EGD or colonoscopy in the past. No obvious bleeding - Coagulopathy, thrombocytopenia, hypoalbuminemia- in setting of cirrhosis - MRSA bacteremia- ID following, unclear etiology, possible need for LESLIE, repeat blood cultures pending - Carotid artery stenosis- vascular surgery following (07/11) Renal indices increased today, therefore cardiac cath has been cancelled. Pt states he has been unable to urinate at all since last night even though he feels like he needs to. Discussed with RN to let attending know may need bladder scan vs ultrasound. Pt continues to have diffuse abdominal pain. Denies nausea, vomiting. Has not had BM. H/H trending down, no obvious bleeding, occult stool pending. LFTs trending down some today, liver work up still pending. Plan Occult stool pending Liver work up pending Add HFE due to elevated ferritin ? shock liver, now on Phenylephrine gtt HIDA reviewed, likely findings of liver disease, do not suspect acute cholecystitis, pt is also poor surgical candidate Monitor LFTs Avoid hepatotoxins Monitor coagulopathy Cardiology following, cath cancelled due to elevated renal function Vascular surgery, likely carotid endarterectomy, timing TBD ID following, work up for etiology of MRSA bacteremia Further recommendations based on clinical course and results of above This patient has been seen and examined by myself and Dr. Medrano and this note is written on his behalf
--- NOTE | 2018-07-11 14:37 | US ---
EXAM DATE: 07/11/2018 2:26 PM EST AGE/SEX: 63 years / Male INDICATIONS: Increased Bun and Creatinine. CLINICAL DATA: This is the patient's initial encounter. Patient reports that signs and symptoms have been present for 1 day and indicates a pain score of 0/10. MEDICAL/SURGICAL HISTORY: . MRSA. Left elbow fracture. Syncope. ETOH abuse. None. COMPARISON: [facility], CTA ABDOMEN & PELVIS W CONTRAST W 3D, 07/10/2018. . MEASUREMENTS: Right Kidney:__12.1 x 5.4 x 4.7 cm Left Kidney:__11.7 x 5.3 x 5.6 cm FINDINGS: Right Kidney: Normal echogenicity and cortical thickness. No mass or hydronephrosis. Left Kidney: Normal echogenicity and cortical thickness. No mass or hydronephrosis. Bladder: Within normal limits given the degree of distension. Other: There is abnormal increased echogenicity of the liver. Left pleural effusion is identified. CONCLUSION: 1. Normal ultrasound appearance of the kidneys. 2. Other findings include hepatic steatosis and left pleural effusion. Electronically signed by: Calvin Santa MD 07/11/2018 2:35 PM EST
[2018-07-11 16:06] LABS: Smooth Muscle Total Auto Abs Negative (Negative)
--- NOTE | 2018-07-11 16:14 | P.PNCA ---
Subjective Interval history: Patient denies any palpitations, dizziness, edema or SOB. Patient does complain of mild chest discomfort that increases with palpation and deep breathing. He also complains of abdominal pain and inability to urinate. Medications and Allergies Allergies Allergy/AdvReac Type Severity Reaction Status Date / Time No Known Allergies Allergy Verified 07/08/18 12:30 Home Medications Medication Instructions Recorded Confirmed Type No Known Home Medications 07/08/18 07/08/18 History Active Medications: Active Medications Al Hydroxide/Mg Hydroxide (Milk Of Pj White) 30 ml PO Q12H PRN PRN Reason: Mild Constipation Albuterol (Albuterol Neb (Prn)) 2.5 mg NEB Q2HR NEB PRN PRN Reason: DYSPNEA Albuterol (Duoneb Neb (Lynda)) 1 ampul NEB Q4HR NEB LYNDA Last Admin: 07/11/18 14:45 Dose: 1 ampul Flumazenil (Romazecon Inj) 0.2 mg IV.PUSH Q1M PRN PRN Reason: OVERSEDATION Haloperidol Lactate (Haldol Inj) 1 mg IV.PUSH Q15M PRN PRN Reason: for severe agitation Hydralazine HCl (Apresoline Inj) 10 mg IV.PUSH Q1H PRN PRN Reason: Sys Bp Greater Than 165 Mmhg Last Admin: 07/11/18 15:05 Dose: 10 mg Multivitamins 10 ml/ Thiamine HCl 100 mg/ Folic Acid 1 mg/Sodium Chloride 511.2 mls @ 125 mls/hr IV.SIG Q24H LYNDA Stop: 07/12/18 12:06 Last Admin: 07/11/18 09:39 Dose: 125 mls/hr Daptomycin 400 mg/ Sodium (Chloride) 100 mls @ 200 mls/hr IV.SIG Q48H LYNDA Last Infusion: 07/11/18 12:55 Dose: Infused Piperacillin/Tazobactam/Dextrose (Zosyn 2.25 Gm Premix) 50 mls @ 100 mls/hr IV.SIG Q8H LYNDA Last Infusion: 07/11/18 11:30 Dose: Infused Sodium Chloride (Ns Inj) 1,000 mls @ 125 mls/hr IV.CONT .Q8H LYNDA Last Admin: 07/11/18 12:18 Dose: 125 mls/hr Labetalol HCl (Trandate Inj) 10 mg IV.PUSH Q1H PRN PRN Reason: Sbp>165, Dbp>90, Hr>65 Lactulose (Lactulose Liq) 30 ml PO DAILY PRN PRN Reason: SEVERE CONSITIPATION Lactulose (Lactulose Liq) 30 ml PO TID [facility] Last Admin: 07/11/18 09:40 Dose: Not Given Lorazepam (Ativan) 1 mg PO Q4H PRN PRN Reason: for CIWA 8-10 Lorazepam (Ativan) 2 mg PO Q2H PRN PRN Reason: for CIWA 11-14 Lorazepam (Ativan Inj) 2 mg IV.PUSH Q2H PRN PRN Reason: for CIWA 11-14 Last Admin: 07/11/18 14:52 Dose: 2 mg Lorazepam (Ativan Inj) 2 mg IV.PUSH Q1H PRN PRN Reason: for CIWA 15-20 Lorazepam (Ativan Inj) 2 mg IV.PUSH Q15M PRN PRN Reason: for CIWA > 20 Lorazepam (Ativan Inj) 1 mg IV.PUSH Q4H PRN PRN Reason: for CIWA 8-10 Morphine Sulfate (Morphine Inj) 2 mg IV.PUSH Q4H PRN PRN Reason: BREAKTHROUGH PAIN Last Admin: 07/10/18 23:56 Dose: 2 mg Mupirocin (Bactroban 2% Nasal Oint) 1 applicatio EACH NARE BID [facility] Naloxone HCl (Narcan Inj) 0.4 mg IV.PUSH UNSCH PRN PRN Reason: SEE LABEL COMMENTS Ondansetron HCl (Zofran Inj) 4 mg IV.PUSH Q6H PRN PRN Reason: NAUSEA OR VOMITING Pantoprazole Sodium (Protonix Inj) 40 mg IV.PUSH DAILY [facility] Last Admin: 07/11/18 09:41 Dose: 40 mg Sennosides (Senokot) 17.2 mg PO Q12H PRN PRN Reason: Moderate Constipation Sodium Chloride (Ns Flush) 2 ml IV.FLUSH PRN PRN PRN Reason: FLUSH AFTER USING IV ACCESS Sodium Chloride (Ns Flush) 2 ml IV.FLUSH BID [facility] Last Admin: 07/11/18 09:40 Dose: 2 ml Physical Exam Vital signs: Vital Signs 07/10/18 16:00 07/10/18 19:00 07/10/18 19:15 Temperature 98.5 F Pulse Rate 108 H 103 H 98 H Respiratory Rate 36 H 29 H Blood Pressure 138/65 142/62 H 132/59 L Pulse Oximetry 89 L 92 L 94 L 07/10/18 19:30 07/10/18 19:45 07/10/18 20:00 Temperature 97.6 F Pulse Rate 100 H 120 H 107 H Respiratory Rate 26 H 44 H 40 H Blood Pressure 117/56 L 157/67 H 141/56 H Pulse Oximetry 93 L 90 L 94 L 07/10/18 20:15 07/10/18 20:28 07/10/18 20:30 Temperature Pulse Rate 105 H 110 H 104 H Respiratory Rate 38 H 22 29 H Blood Pressure 138/61 144/66 H Pulse Oximetry 93 L 98 07/10/18 20:45 07/10/18 21:00 07/10/18 21:15 Temperature Pulse Rate 115 H 114 H 113 H Respiratory Rate 44 H 38 H 41 H Blood Pressure 135/63 136/63 136/63 Pulse Oximetry 93 L 95 94 L 07/10/18 21:30 07/10/18 21:45 07/10/18 22:00 Temperature Pulse Rate 110 H 105 H 104 H Respiratory Rate 33 H 29 H 29 H Blood Pressure 139/64 144/67 H 146/66 H Pulse Oximetry 94 L 94 L 95 07/10/18 22:30 07/10/18 22:45 07/10/18 23:00 Temperature Pulse Rate 106 H 100 H 101 H Respiratory Rate 36 H 32 H 35 H Blood Pressure 129/61 130/62 137/65 Pulse Oximetry 99 100 97 07/10/18 23:15 07/10/18 23:30 07/10/18 23:36 Temperature Pulse Rate 101 H 99 H 100 H Respiratory Rate 33 H 29 H 19 Blood Pressure 138/62 142/64 H Pulse Oximetry 92 L 100 07/10/18 23:45 07/10/18 23:58 07/11/18 00:00 Temperature 97.8 F Pulse Rate 108 H 112 H Respiratory Rate 37 H 22 27 H Blood Pressure 143/65 H 142/63 H Pulse Oximetry 95 95 07/11/18 00:15 07/11/18 00:30 07/11/18 00:45 Temperature Pulse Rate 107 H 106 H 105 H Respiratory Rate 25 H 23 21 Blood Pressure 144/66 H 143/66 H 145/65 H Pulse Oximetry 100 100 100 07/11/18 01:00 07/11/18 01:15 07/11/18 01:30 Temperature Pulse Rate 105 H 104 H 101 H Respiratory Rate 22 28 H 21 Blood Pressure 125/56 L 134/61 133/62 Pulse Oximetry 100 100 97 07/11/18 01:45 07/11/18 02:00 07/11/18 02:15 Temperature Pulse Rate 102 H 102 H 104 H Respiratory Rate 22 27 H 31 H Blood Pressure 137/62 138/64 134/62 Pulse Oximetry 98 91 L 99 07/11/18 02:30 07/11/18 02:45 07/11/18 03:00 Temperature Pulse Rate 103 H 100 H 98 H Respiratory Rate 29 H 30 H 25 H Blood Pressure 134/67 134/68 135/67 Pulse Oximetry 99 99 100 07/11/18 03:15 07/11/18 03:30 07/11/18 03:45 Temperature Pulse Rate 99 H 98 H 98 H Respiratory Rate 25 H 26 H 25 H Blood Pressure 140/70 147/65 H 143/70 H Pulse Oximetry 100 100 98 07/11/18 03:54 07/11/18 04:00 07/11/18 04:15 Temperature 97.8 F Pulse Rate 98 H 101 H 114 H Respiratory Rate 19 27 H 33 H Blood Pressure 133/66 131/60 Pulse Oximetry 100 91 L 07/11/18 04:30 07/11/18 04:45 07/11/18 05:00 Temperature Pulse Rate 108 H 106 H 105 H Respiratory Rate 29 H 22 22 Blood Pressure 134/64 141/67 H 139/63 Pulse Oximetry 100 99 99 07/11/18 05:15 07/11/18 05:30 07/11/18 05:45 Temperature Pulse Rate 105 H 105 H 101 H Respiratory Rate 25 H 23 22 Blood Pressure 137/63 139/65 135/64 Pulse Oximetry 100 98 100 07/11/18 06:00 07/11/18 06:15 07/11/18 06:30 Temperature Pulse Rate 100 H 99 H 104 H Respiratory Rate 21 22 21 Blood Pressure 137/67 141/67 H 147/72 H Pulse Oximetry 100 100 68 L 07/11/18 06:45 07/11/18 07:00 07/11/18 07:15 Temperature Pulse Rate 101 H 98 H 102 H Respiratory Rate 22 22 29 H Blood Pressure 142/66 H 138/66 137/67 Pulse Oximetry 99 100 100 07/11/18 07:33 07/11/18 07:45 07/11/18 08:00 Temperature Pulse Rate 103 H 101 H 98 H Respiratory Rate 30 H 33 H 27 H Blood Pressure 125/59 L 130/63 132/67 Pulse Oximetry 99 98 100 07/11/18 08:15 07/11/18 08:16 07/11/18 08:30 Temperature 97.8 F Pulse Rate 101 H 101 H 104 H Respiratory Rate 29 H 24 32 H Blood Pressure 147/73 H 143/67 H Pulse Oximetry 98 98 07/11/18 08:45 07/11/18 09:00 07/11/18 09:15 Temperature Pulse Rate 111 H 108 H 114 H Respiratory Rate 33 H 31 H 29 H Blood Pressure 157/71 H 175/97 H 149/59 H Pulse Oximetry 91 L 97 86 L 07/11/18 09:30 07/11/18 09:44 07/11/18 09:45 Temperature Pulse Rate 105 H 103 H Respiratory Rate 33 H 25 H Blood Pressure 163/72 H 170/78 H Pulse Oximetry 96 98 98 07/11/18 10:00 07/11/18 10:15 07/11/18 10:30 Temperature Pulse Rate 105 H 101 H 100 H Respiratory Rate 31 H 23 24 Blood Pressure 168/68 H 166/74 H 166/74 H Pulse Oximetry 97 97 99 07/11/18 10:45 07/11/18 11:00 07/11/18 11:22 Temperature Pulse Rate 107 H 100 H 109 H Respiratory Rate 23 25 H 38 H Blood Pressure 169/65 H 175/78 H 151/70 H Pulse Oximetry 97 98 91 L 07/11/18 11:30 07/11/18 11:45 07/11/18 11:47 Temperature Pulse Rate 103 H 100 H 103 H Respiratory Rate 34 H 33 H 27 H Blood Pressure 160/74 H 159/72 H Pulse Oximetry 94 L 97 07/11/18 12:00 07/11/18 12:15 07/11/18 12:30 Temperature Pulse Rate 106 H 109 H 108 H Respiratory Rate 25 H 27 H 32 H Blood Pressure 151/67 H 159/72 H 163/72 H Pulse Oximetry 100 94 L 95 07/11/18 12:45 07/11/18 14:47 Temperature Pulse Rate 113 H 128 H Respiratory Rate 32 H 45 H Blood Pressure 169/77 H Pulse Oximetry 94 L Intake & Output 07/10/18 07/11/18 07/11/18 18:59 06:59 18:59 Intake Total 1873.7 / 1873.7 2100 / 2100 800 / 800 Output Total 600 / 600 400 / 400 Balance 1273.7 / 1273.7 1700 / 1700 800 / 800 Weight 61.9 kg Intake: IV 1873.7 / 1873.7 2100 / 2100 800 / 800 Sodium Bicarbonate 8.4% Inj 150 2000 / 2000 MEQ In Sterile Water for Inj 850 ML @ 150 mls/hr IV.CONT . Q6H40M LYNDA Rx#:[id number] Cubicin Inj 400 MG In NS Inj 100 / 100 100 ML @ 200 mls/hr IV.SIG Q48H [facility] Rx#:[id number] Magnesium Sulfate 1 gm/D5W 100 100 / 100 ml Premix 100 ML @ 100 mls/hr IV.SIG ONCE ONE Rx#:[id number] MVI-12 Inj 10 ML Thiamine Inj 511.2 / 511.2 100 MG Folvite Inj 1 MG In NS Inj 500 ML @ 125 mls/hr IV.SIG Q24H [facility] Rx#:[id number] Zosyn 2.25 GM Premix 50 ML @ 50 / 50 100 mls/hr IV.SIG Q8H [facility] Rx#: [id number] Zosyn 3.375 GM Premix 50 ML @ 100 / 100 100 / 100 50 / 50 100 mls/hr IV.SIG Q6H [facility] Rx#: [id number] NS Inj 1,000 ML @ Wide Open IV. 1000 / 1000 SIG BOLUS ONE Rx#:[id number] 1/2 Normal Saline Inj 500 ML @ 500 / 500 Wide Open IV.SIG BOLUS ONE Rx#: [id number] Output: Urine 600 / 600 400 / 400 Other: # Voids 3 Date of Last Bowel Movement 07/10/18 07/10/18 07/10/18 # Bowel Movements 5 - Constitutional no acute distress - Routine HEENT Exam Head: Present: normocephalic Eye: Present: EOMI ENT: Present: mucous membranes moist Comments: left pupil dilated. This is chronic. - Routine Neck Exam Present: supple - Routine Respiratory Exam Present: CTA bilaterally - Routine Cardiovascular Exam Present: S1, S2. Absent: murmur, gallop, rubs - Routine Abdominal Exam Present: tenderness, distended, guarding Comments: generalized abdominal pain - Routine Extremities Exam Present: full ROM, pulses intact, normal capillary refill. Absent: cyanosis, clubbing, edema - Routine Skin Exam Present: intact - Routine Neurological Exam Present: oriented X3 - Detailed Neurological Exam: Coma Scale Eye Opening: Spontaneous Verbal Response: Oriented Motor Response: Obey commands Sumner Coma Scale Total: 15 - Routine Psychiatric Exam Present: agitated Results 07/11/18 03:13 07/11/18 03:13 Cardiac Enzymes 07/09/18 07/10/18 07/10/18 Range/Units 20:17 01:30 04:27 AST 6909 H (15-37) U/L CK-MB (CK-2) (0.5-3.6) ng/mL Troponin I 1.66 H* 1.11 H* (0.02-0.05) ng/mL 07/10/18 07/10/18 07/10/18 Range/Units 11:15 13:56 13:56 AST (15-37) U/L CK-MB (CK-2) (0.5-3.6) ng/mL Troponin I 7.39 H* 9.95 H* Cancelled (0.02-0.05) ng/mL 07/11/18 Range/Units 03:13 AST 2701 H (15-37) U/L CK-MB (CK-2) 53.4 H (0.5-3.6) ng/mL Troponin I (0.02-0.05) ng/mL Coagulation 07/09/18 07/10/18 07/10/18 Range/Units 22:49 04:27 11:15 PT 36.5 H D (9.8-11.6) sec APTT 37.7 H 68.2 H D Cancelled (23.4-31.7) sec 07/10/18 07/10/18 07/11/18 Range/Units 11:15 11:15 03:13 PT 48.3 H D 31.0 H D (9.8-11.6) sec APTT 51.8 H D 41.2 H D (23.4-31.7) sec Lipids 07/09/18 Range/Units 20:17 Triglycerides 140 (42-150) mg/dL Cholesterol 50 L (120-200) mg/dL HDL Cholesterol 10.8 L (40.0-60.0) mg/dL Cholesterol/HDL Ratio 4.62 Ratio CBC 07/10/18 07/11/18 Range/Units 04:27 03:13 WBC 9.6 6.3 (4.0-11.0) th/mm3 RBC 3.65 L 3.02 L (4.50-5.90) mil/mm3 Hgb 12.2 L 10.1 L D (13.0-17.0) gm/dL Hct 36.9 L 29.2 L (39.0-51.0) % Plt Count 55 L 42 L (150-450) th/mm3 Neut # (Auto) 8.6 H 4.7 (1.8-7.7) th/mm3 Lymph # (Auto) 0.3 L 0.9 L (1.0-4.8) th/mm3 Rich # (Auto) 0.6 0.6 (0.0-0.9) th/mm3 Eos # (Auto) 0.0 0.0 (0.0-0.4) th/mm3 Baso # (Auto) 0.0 0.0 (0.0-0.2) th/mm3 Comprehensive Metabolic Panel 07/10/18 07/10/18 07/10/18 Range/Units 04:27 11:15 13:56 Sodium 137 141 (136-145) meq/L Potassium 4.6 4.1 (3.5-5.1) meq/L Chloride 105 106 (98-107) meq/L Carbon Dioxide 16.7 L 17.8 L (21.0-32.0) meq/L BUN 18 22 H (7-18) mg/dL Creatinine 1.24 1.85 H (0.60-1.30) mg/dL Calcium 8.1 L 7.5 L (8.5-10.1) mg/dL Direct Bilirubin 3.2 H (0.0-0.2) mg/dL Indirect Bilirubin 0.8 (0.0-0.8) mg/dL AST 6909 H (15-37) U/L ALT 2815 H (12-78) U/L Alkaline Phosphatase 126 H (45-117) U/L Total Protein 6.6 D (6.4-8.2) g/dL Albumin 2.7 L (3.4-5.0) g/dL 07/11/18 Range/Units 03:13 Sodium 138 (136-145) meq/L Potassium 3.1 L D (3.5-5.1) meq/L Chloride 100 (98-107) meq/L Carbon Dioxide 26.0 (21.0-32.0) meq/L BUN 26 H (7-18) mg/dL Creatinine 2.31 H (0.60-1.30) mg/dL Calcium 6.6 L* D (8.5-10.1) mg/dL Direct Bilirubin (0.0-0.2) mg/dL Indirect Bilirubin (0.0-0.8) mg/dL AST 2701 H (15-37) U/L ALT 1873 H (12-78) U/L Alkaline Phosphatase 86 (45-117) U/L Total Protein 5.7 L D (6.4-8.2) g/dL Albumin 2.2 L (3.4-5.0) g/dL Intake and Output 07/11/18 07/11/18 07/11/18 06:59 14:59 22:59 Intake Total 1050 / 1050 800 / 800 Output Total 400 / 400 Balance 650 / 650 800 / 800 Intake: IV 1050 / 1050 800 / 800 Sodium Bicarbonate 8.4% Inj 150 1000 / 1000 MEQ In Sterile Water for Inj 850 ML @ 150 mls/hr IV.CONT . Q6H40M [facility] Rx#:[id number] Cubicin Inj 400 MG In NS Inj 100 / 100 100 ML @ 200 mls/hr IV.SIG Q48H [facility] Rx#:[id number] Magnesium Sulfate 1 gm/D5W 100 100 / 100 ml Premix 100 ML @ 100 mls/hr IV.SIG ONCE ONE Rx#:[id number] Zosyn 2.25 GM Premix 50 ML @ 50 / 50 100 mls/hr IV.SIG Q8H [facility] Rx#: [id number] Zosyn 3.375 GM Premix 50 ML @ 50 / 50 50 / 50 100 mls/hr IV.SIG Q6H [facility] Rx#: [id number] 1/2 Normal Saline Inj 500 ML @ 500 / 500 Wide Open IV.SIG BOLUS ONE Rx#: [id number] Output: Urine 400 / 400 Other: # Voids 3 Date of Last Bowel Movement 07/10/18 07/10/18 Weight 61.9 kg - Imaging and Cardiology Imaging: Impressions Hepatobiliary Scan Nuclear Medicine 07/09/18 14:22 CONCLUSION: 1. No activity in intrahepatic ducts, common duct or small bowel. Considerations include include acute obstruction of the common duct and diffuse hepatocellular disease. 2. CT scan shows no dilatation of the common duct or intrahepatic ducts. Diffuse hepatocellular disease is suspected. Chest X-Ray 07/10/18 00:00 CONCLUSION: No acute cardiopulmonary abnormality is identified. Neck CTA 07/10/18 00:00 CONCLUSION: 1. 80% stenosis of the proximal right ICA. Left carotid and bilateral vertebral arteries are patent. 2. Emphysematous changes. Abdomen/Pelvis CTA 07/10/18 00:08 CONCLUSION: 1. 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 The SMA and MIC are patent. 2. Hepatic steatosis. 3. Emphysematous changes. Abdomen/Bladder Ultrasound 07/11/18 00:00 CONCLUSION: 1. Normal ultrasound appearance of the kidneys. 2. Other findings include hepatic steatosis and left pleural effusion. Assessment and Plan - Assessment (1) Chest pain Code(s): R07.9 - Chest pain, unspecified Status: Acute (2) Elevated troponin level Code(s): R74.8 - Abnormal levels of other serum enzymes Status: Acute (3) Liver failure Code(s): K72.90 - Hepatic failure, unspecified without coma Status: Acute (4) Hyperbilirubinemia Code(s): E80.6 - Other disorders of bilirubin metabolism Status: Acute - Plan Renal evaluation in progress due to renal function significantly decreasing ( acute renal insufficiency) since yesterday. Labs also show significant thrombocytopenia. We will cancel cardiac catheterization for today; the risk is higher than benefit at this point. ID evaluation and treatment in progress. Patient is positive for S. aureus in the blood, patient remains on contact isolation. Patient having abdominal pain and elevated liver enzymes, GI evaluation and treatment in progress. Vascular surgery evaluation in progress for high grade stenosis of the right carotid artery. Continue to monitor patient on telemetry. The patient was seen and evaluated by Dr. Gonzalez who participated in care, management and decision making. - Attending Attestation Patient seen and examined. I reviewed and agree with the evaluation and plan as presented. He has bacteremia, progressive renal insufficiency and thrombocytopenia. Cath cancelled at this time; risk of complications is higher than its benefit. Continue post [place] monitoring and management.
[2018-07-11] MEDS: Sod Chloride 0.9% Inj 1,000 ML IV.SIG SCH ×2 (18:42→20:25)
[2018-07-11] MEDS: Mupirocin 2% Nasal Oint Topical Syringe EACH NARE SCH (20:38)
--- NOTE | 2018-07-12 00:28 | CT ---
EXAM DATE: 07/12/2018 12:20 AM EST AGE/SEX: 63 years / Male INDICATIONS: Avulsion fracture to olecranon; rule out cellulitis. CLINICAL DATA: This is the patient's subsequent encounter. Patient reports that signs and symptoms h ave been present for 4 - 6 days and indicates a pain score of 5/10. MEDICAL/SURGICAL HISTORY: Cardiovascular disease. Diabetes. None. RADIATION DOSE: 10.39 CTDI (mGy) COMPARISON: [facility], ELBOW COMPLETE LEFT 4V, 07/08/2018. . TECHNIQUE: Multiple contiguous axial images were acquired using a multi-row detector CT scanner. Mu ltiplanar reconstruction was performed in the sagittal and coronal planes. Using automated exposure control and adjustment of the mA and/or kV according to patient size, radiation dose was kept as low as reasonably achievable to obtain optimal diagnostic quality images. DICOM format image data is black ilable electronically for review and comparison. FINDINGS: There is a history of a mildly displaced avulsion fracture fragment off the olecranon. There is subcu taneous edema identified posterior to the elbow. No focal fluid collections are seen to suggest absce ss. CONCLUSION: 1. Small fracture fragment off the olecranon. 2. There is subcutaneous edema identified posterior to the elbow with soft tissue swelling. Electronically signed by: Michele Koenig MD 07/12/2018 12:27 AM EST
[2018-07-12] MEDS: Sod Chloride 0.9% Inj 1,000 ML IV.CONT SCH ×4 (02:19→20:29)
[2018-07-12] MEDS: Piperacil/Tazo 2.25 GM Premix 50 ML IV.SIG SCH ×3 (02:24→18:00)
[2018-07-12 04:47] LABS: Baso % (Auto) 0.3 % (0.0-2.0); Eos % (Auto) 0.3 % (0.0-4.0); Hematocrit 28.7 % (39.0-51.0); Lymph # (Auto) 0.6 th/mm3 (1.0-4.8); Lymph % (Auto) 10.5 % (9.0-44.0); Mean Corpuscular HGB Conc 34.7 % (32.0-36.0); Mean Corpuscular Hemoglobin 33.8 pg (27.0-34.0); Mean Corpuscular Volume 97.2 fL (80.0-100.0); Mean Platelet Volume 9.8 fL (7.0-11.0); Mono # (Auto) 0.8 th/mm3 (0.0-0.9); Mono % (Auto) 13.3 % (0.0-8.0); Neut # (Auto) 4.5 th/mm3 (1.8-7.7); Neut % (Auto) 75.6 % (16.0-70.0); Platelet Count 32 th/mm3 (150-450); Red Blood Count 2.95 mil/mm3 (4.50-5.90); Red Cell Distribution Width 13.4 % (11.6-17.2); White Blood Count 5.9 th/mm3 (4.0-11.0)
[2018-07-12 04:54] LABS: Activated Partial Thrombo Time 40.6 sec (23.4-31.7); INR 2.4 Ratio; Prothrombin Time 24.1 sec (9.8-11.6)
[2018-07-12 05:20] LABS: Albumin 2.4 g/dL (3.4-5.0); Carbon Dioxide 27.7 meq/L (21.0-32.0); Magnesium 2.2 mg/dL (1.5-2.5); Phosphorus 3.1 mg/dL (2.5-4.9); Potassium 3.3 meq/L (3.5-5.1); Total Protein 5.7 g/dL (6.4-8.2)
[2018-07-12 05:41] LABS: Platelet Morphology Normal (Normal); RBC Morphology Normal (Normal)
[2018-07-12] MEDS: Pantoprazole Inj 40 MG Vial IV.PUSH SCH (08:14)
--- NOTE | 2018-07-12 08:37 | XR ---
EXAM DATE: 07/12/2018 8:30 AM EST AGE/SEX: 63 years / Male INDICATIONS: Shortness of breath. CLINICAL DATA: This is the patient's subsequent encounter. Patient reports that signs and symptoms h ave been present for 3 days and indicates a pain score of 0/10. MEDICAL/SURGICAL HISTORY: None. None. COMPARISON: [facility] [place], CHEST 1V SINGLE AP, 07/10/2018. . FINDINGS: Significant interstitial vascular prominence has developed throughout both lungs. There is significan t opacity in the right midlung and base indicating airspace disease. Basilar haziness may represent small bilateral effusions. Heart is normal in size. CONCLUSION: Acute interstitial vascular congestion with right-sided airspace disease and suspected small bilatera l effusions. Electronically signed by: Louie Yarbrough MD 07/12/2018 8:35 AM EST
--- NOTE | 2018-07-12 10:22 | P.PNGI ---
Subjective Interval history: Patient continues in the intensive care setting but awakens and responds appropriately to simple questions. Tachycardia heart rate 103 labs reviewed <No Charles M - Last Filed: 07/12/18 10:14> Physical Exam Vital signs: Vital Signs 07/11/18 10:15 07/11/18 10:30 07/11/18 10:45 Temperature Pulse Rate 101 H 100 H 107 H Respiratory Rate 23 24 23 Blood Pressure 166/74 H 166/74 H 169/65 H Pulse Oximetry 97 99 97 07/11/18 11:00 07/11/18 11:22 07/11/18 11:30 Temperature Pulse Rate 100 H 109 H 103 H Respiratory Rate 25 H 38 H 34 H Blood Pressure 175/78 H 151/70 H 160/74 H Pulse Oximetry 98 91 L 94 L 07/11/18 11:45 07/11/18 11:47 07/11/18 12:00 Temperature Pulse Rate 100 H 103 H 106 H Respiratory Rate 33 H 27 H 25 H Blood Pressure 159/72 H 151/67 H Pulse Oximetry 97 100 07/11/18 12:15 07/11/18 12:30 07/11/18 12:45 Temperature Pulse Rate 109 H 108 H 113 H Respiratory Rate 27 H 32 H 32 H Blood Pressure 159/72 H 163/72 H 169/77 H Pulse Oximetry 94 L 95 94 L 07/11/18 13:00 07/11/18 13:15 07/11/18 13:20 Temperature Pulse Rate 106 H 104 H 103 H Respiratory Rate 32 H 22 30 H Blood Pressure 169/77 H 179/81 H 170/63 H Pulse Oximetry 95 94 L 95 07/11/18 13:30 07/11/18 13:42 07/11/18 13:45 Temperature Pulse Rate 102 H 103 H 102 H Respiratory Rate 28 H 29 H 27 H Blood Pressure 172/75 H 150/65 H 148/67 H Pulse Oximetry 96 95 94 L 07/11/18 14:00 07/11/18 14:15 07/11/18 14:30 Temperature Pulse Rate 106 H 115 H 106 H Respiratory Rate 34 H 35 H 37 H Blood Pressure 144/64 H 159/74 H 152/66 H Pulse Oximetry 95 94 L 94 L 07/11/18 14:45 07/11/18 14:47 07/11/18 14:53 Temperature Pulse Rate 125 H 128 H 129 H Respiratory Rate 55 H 45 H 42 H Blood Pressure 207/100 H 219/93 H Pulse Oximetry 90 L 79 L 07/11/18 14:55 07/11/18 14:58 07/11/18 15:00 Temperature Pulse Rate 124 H 114 H 116 H Respiratory Rate 37 H 45 H 34 H Blood Pressure 221/93 H 192/67 H 188/81 H Pulse Oximetry 89 L 88 L 86 L 07/11/18 15:08 07/11/18 15:10 07/11/18 15:15 Temperature Pulse Rate 115 H 115 H 118 H Respiratory Rate 36 H 37 H 39 H Blood Pressure 182/79 H 178/75 H 164/73 H Pulse Oximetry 92 L 92 L 91 L 07/11/18 15:30 07/11/18 15:45 07/11/18 16:00 Temperature 98.5 F Pulse Rate 142 H 118 H 117 H Respiratory Rate 43 H 39 H 40 H Blood Pressure 165/70 H 143/56 H 139/60 Pulse Oximetry 83 L 96 96 07/11/18 16:15 07/11/18 16:30 07/11/18 19:00 Temperature Pulse Rate 118 H 124 H 119 H Respiratory Rate 42 H 41 H 36 H Blood Pressure 136/62 138/71 133/63 Pulse Oximetry 97 94 L 94 L 07/11/18 19:15 07/11/18 19:30 07/11/18 19:45 Temperature Pulse Rate 115 H 114 H 114 H Respiratory Rate 34 H 38 H 31 H Blood Pressure 128/61 125/60 125/62 Pulse Oximetry 97 97 98 07/11/18 20:00 07/11/18 20:06 07/11/18 20:15 Temperature 98.2 F Pulse Rate 113 H 113 H 129 H Respiratory Rate 35 H 41 H Blood Pressure 129/62 139/67 Pulse Oximetry 99 92 L 07/11/18 20:30 07/11/18 20:45 07/11/18 21:00 Temperature Pulse Rate 115 H 114 H 114 H Respiratory Rate 33 H 32 H 32 H Blood Pressure 126/60 124/61 131/63 Pulse Oximetry 95 96 96 07/11/18 21:15 07/11/18 21:19 07/11/18 21:30 Temperature Pulse Rate 113 H 115 H 137 H Respiratory Rate 33 H 22 54 H Blood Pressure 122/63 184/79 H Pulse Oximetry 97 79 L 07/11/18 21:33 07/11/18 21:45 07/11/18 22:00 Temperature Pulse Rate 128 H 118 H 115 H Respiratory Rate 39 H 34 H 38 H Blood Pressure 150/65 H 142/63 H 125/59 L Pulse Oximetry 91 L 94 L 93 L 07/11/18 22:15 07/11/18 22:30 07/11/18 22:45 Temperature Pulse Rate 114 H 115 H 114 H Respiratory Rate 38 H 37 H 35 H Blood Pressure 125/59 L 128/61 126/61 Pulse Oximetry 93 L 95 96 07/11/18 23:00 07/11/18 23:15 07/11/18 23:30 Temperature Pulse Rate 113 H 113 H 112 H Respiratory Rate 36 H 36 H 36 H Blood Pressure 128/63 128/65 137/76 Pulse Oximetry 96 97 97 07/11/18 23:45 07/11/18 23:47 07/12/18 00:00 Temperature 98.3 F Pulse Rate 111 H 111 H 112 H Respiratory Rate 35 H 36 H 0 L Blood Pressure 129/63 128/62 147/72 H Pulse Oximetry 97 96 92 L 07/12/18 00:15 07/12/18 00:30 07/12/18 00:45 Temperature Pulse Rate 112 H 109 H 107 H Respiratory Rate 40 H 31 H 34 H Blood Pressure 139/66 137/70 135/66 Pulse Oximetry 95 98 97 07/12/18 01:00 07/12/18 01:15 07/12/18 01:30 Temperature Pulse Rate 107 H 105 H 104 H Respiratory Rate 36 H 33 H 33 H Blood Pressure 139/67 134/62 140/66 Pulse Oximetry 97 99 100 07/12/18 01:45 07/12/18 02:00 07/12/18 02:15 Temperature Pulse Rate 103 H 104 H 108 H Respiratory Rate 32 H 31 H 40 H Blood Pressure 139/68 132/64 131/63 Pulse Oximetry 100 99 95 07/12/18 02:30 07/12/18 02:45 07/12/18 03:00 Temperature Pulse Rate 105 H 105 H 104 H Respiratory Rate 38 H 37 H 35 H Blood Pressure 137/66 135/63 140/64 Pulse Oximetry 98 100 99 07/12/18 03:15 07/12/18 03:30 07/12/18 03:45 Temperature Pulse Rate 105 H 104 H 104 H Respiratory Rate 37 H 35 H 36 H Blood Pressure 136/65 135/65 141/70 H Pulse Oximetry 97 97 97 07/12/18 04:00 07/12/18 04:15 07/12/18 04:30 Temperature 98.3 F Pulse Rate 106 H 107 H 108 H Respiratory Rate 35 H 37 H 41 H Blood Pressure 135/71 111/52 L 140/62 Pulse Oximetry 96 96 92 L 07/12/18 04:45 07/12/18 05:00 07/12/18 05:15 Temperature Pulse Rate 105 H 103 H 101 H Respiratory Rate 32 H 35 H 33 H Blood Pressure 142/70 H 130/66 131/65 Pulse Oximetry 98 99 99 07/12/18 05:30 07/12/18 05:45 07/12/18 06:00 Temperature Pulse Rate 104 H 102 H 100 H Respiratory Rate 46 H 34 H 33 H Blood Pressure 136/69 138/69 140/69 Pulse Oximetry 94 L 97 97 07/12/18 06:15 07/12/18 06:30 07/12/18 06:45 Temperature Pulse Rate 105 H 101 H 99 H Respiratory Rate 42 H 35 H 34 H Blood Pressure 141/70 H 138/70 141/73 H Pulse Oximetry 92 L 96 97 07/12/18 07:00 07/12/18 07:15 07/12/18 07:30 Temperature Pulse Rate 100 H 100 H 102 H Respiratory Rate 33 H 34 H 28 H Blood Pressure 141/71 H 144/67 H 126/76 Pulse Oximetry 97 96 99 07/12/18 07:45 07/12/18 08:00 07/12/18 08:07 Temperature 97.6 F Pulse Rate 102 H 104 H 103 H Respiratory Rate 33 H 38 H 40 H Blood Pressure 130/62 141/86 H Pulse Oximetry 98 94 L 93 L 07/12/18 08:15 07/12/18 08:30 07/12/18 08:45 Temperature Pulse Rate 106 H 102 H 106 H Respiratory Rate 43 H 36 H 38 H Blood Pressure 135/66 162/67 H 118/60 Pulse Oximetry 94 L 96 93 L 07/12/18 09:00 07/12/18 09:15 07/12/18 09:23 Temperature Pulse Rate 103 H 106 H 104 H Respiratory Rate 34 H 41 H 33 H Blood Pressure 138/65 136/76 Pulse Oximetry 97 92 L 95 07/12/18 09:30 07/12/18 09:45 07/12/18 10:00 Temperature Pulse Rate 103 H 104 H 110 H Respiratory Rate 34 H 30 H 39 H Blood Pressure 112/51 L 135/65 147/75 H Pulse Oximetry 95 96 95 Intake & Output 07/11/18 07/12/18 07/12/18 18:59 06:59 18:59 Intake Total 1311.2 / 1311.2 4000 / 4000 Balance 1311.2 / 1311.2 4000 / 4000 Weight 75.1 kg Intake: IV 1311.2 / 1311.2 4000 / 4000 NS Inj 1,000 ML @ 125 mls/hr IV 1800 / 1800 .CONT .Q8H [facility] Rx#:[id number] Sodium Bicarbonate 8.4% Inj 150 1000 / 1000 MEQ In Sterile Water for Inj 850 ML @ 150 mls/hr IV.CONT . Q6H40M [facility] Rx#:[id number] Flexbumin 25% Inj 100 ML @ 60 100 / 100 mls/hr IV.SIG ONCE ONE Rx#: [id number] Cubicin Inj 400 MG In NS Inj 100 / 100 100 ML @ 200 mls/hr IV.SIG Q48H [facility] Rx#:[id number] Magnesium Sulfate 1 gm/D5W 100 100 / 100 ml Premix 100 ML @ 100 mls/hr IV.SIG ONCE ONE Rx#:[id number] MVI-12 Inj 10 ML Thiamine Inj 511.2 / 511.2 100 MG Folvite Inj 1 MG In NS Inj 500 ML @ 125 mls/hr IV.SIG Q24H [facility] Rx#:[id number] Zosyn 2.25 GM Premix 50 ML @ 50 / 50 100 / 100 100 mls/hr IV.SIG Q8H [facility] Rx#: [id number] Zosyn 3.375 GM Premix 50 ML @ 50 / 50 100 mls/hr IV.SIG Q6H [facility] Rx#: [id number] NS Inj 1,000 ML @ 2000 mls/hr 1000 / 1000 IV.SIG Q30M [facility] Rx#:[id number] 1/2 Normal Saline Inj 500 ML @ 500 / 500 Wide Open IV.SIG BOLUS ONE Rx#: [id number] Other: # Voids 1 # Incontinent Voids 0 Date of Last Bowel Movement 07/10/18 07/10/18 07/10/18 - Constitutional mild distress, chronically ill appearing, disheveled, cooperative - Routine HEENT Exam Head: Present: normocephalic (Mild jaundice) ENT: Present: mucous membranes dry - Routine Respiratory Exam Present: accessory muscle use, decreased breath sounds - Routine Cardiovascular Exam Present: S1, S2 (Distant) - Routine Abdominal Exam Present: soft (Round, taut, denies any abdominal pain to light palpation) - Urinary Catheter Management Indwelling Urethral Catheter Cath placed during this visit: yes Reason for continuing: Hourly intake/output Insertion date: 07/12/18 Insertion time: 07:45 <No Charles - Last Filed: 07/12/18 10:14> Vital signs: Vital Signs 07/11/18 19:00 07/11/18 19:15 07/11/18 19:30 Temperature Pulse Rate 119 H 115 H 114 H Respiratory Rate 36 H 34 H 38 H Blood Pressure 133/63 128/61 125/60 Pulse Oximetry 94 L 97 97 07/11/18 19:45 07/11/18 20:00 07/11/18 20:06 Temperature 98.2 F Pulse Rate 114 H 113 H 113 H Respiratory Rate 31 H 35 H Blood Pressure 125/62 129/62 Pulse Oximetry 98 99 07/11/18 20:15 07/11/18 20:30 07/11/18 20:45 Temperature Pulse Rate 129 H 115 H 114 H Respiratory Rate 41 H 33 H 32 H Blood Pressure 139/67 126/60 124/61 Pulse Oximetry 92 L 95 96 07/11/18 21:00 07/11/18 21:15 07/11/18 21:19 Temperature Pulse Rate 114 H 113 H 115 H Respiratory Rate 32 H 33 H 22 Blood Pressure 131/63 122/63 Pulse Oximetry 96 97 07/11/18 21:30 07/11/18 21:33 07/11/18 21:45 Temperature Pulse Rate 137 H 128 H 118 H Respiratory Rate 54 H 39 H 34 H Blood Pressure 184/79 H 150/65 H 142/63 H Pulse Oximetry 79 L 91 L 94 L 07/11/18 22:00 07/11/18 22:15 07/11/18 22:30 Temperature Pulse Rate 115 H 114 H 115 H Respiratory Rate 38 H 38 H 37 H Blood Pressure 125/59 L 125/59 L 128/61 Pulse Oximetry 93 L 93 L 95 07/11/18 22:45 07/11/18 23:00 07/11/18 23:15 Temperature Pulse Rate 114 H 113 H 113 H Respiratory Rate 35 H 36 H 36 H Blood Pressure 126/61 128/63 128/65 Pulse Oximetry 96 96 97 07/11/18 23:30 07/11/18 23:45 07/11/18 23:47 Temperature Pulse Rate 112 H 111 H 111 H Respiratory Rate 36 H 35 H 36 H Blood Pressure 137/76 129/63 128/62 Pulse Oximetry 97 97 96 07/12/18 00:00 07/12/18 00:15 07/12/18 00:30 Temperature 98.3 F Pulse Rate 112 H 112 H 109 H Respiratory Rate 0 L 40 H 31 H Blood Pressure 147/72 H 139/66 137/70 Pulse Oximetry 92 L 95 98 07/12/18 00:45 07/12/18 01:00 07/12/18 01:15 Temperature Pulse Rate 107 H 107 H 105 H Respiratory Rate 34 H 36 H 33 H Blood Pressure 135/66 139/67 134/62 Pulse Oximetry 97 97 99 07/12/18 01:30 07/12/18 01:45 07/12/18 02:00 Temperature Pulse Rate 104 H 103 H 104 H Respiratory Rate 33 H 32 H 31 H Blood Pressure 140/66 139/68 132/64 Pulse Oximetry 100 100 99 07/12/18 02:15 07/12/18 02:30 07/12/18 02:45 Temperature Pulse Rate 108 H 105 H 105 H Respiratory Rate 40 H 38 H 37 H Blood Pressure 131/63 137/66 135/63 Pulse Oximetry 95 98 100 07/12/18 03:00 07/12/18 03:15 07/12/18 03:30 Temperature Pulse Rate 104 H 105 H 104 H Respiratory Rate 35 H 37 H 35 H Blood Pressure 140/64 136/65 135/65 Pulse Oximetry 99 97 97 07/12/18 03:45 07/12/18 04:00 07/12/18 04:15 Temperature 98.3 F Pulse Rate 104 H 106 H 107 H Respiratory Rate 36 H 35 H 37 H Blood Pressure 141/70 H 135/71 111/52 L Pulse Oximetry 97 96 96 07/12/18 04:30 07/12/18 04:45 07/12/18 05:00 Temperature Pulse Rate 108 H 105 H 103 H Respiratory Rate 41 H 32 H 35 H Blood Pressure 140/62 142/70 H 130/66 Pulse Oximetry 92 L 98 99 07/12/18 05:15 07/12/18 05:30 07/12/18 05:45 Temperature Pulse Rate 101 H 104 H 102 H Respiratory Rate 33 H 46 H 34 H Blood Pressure 131/65 136/69 138/69 Pulse Oximetry 99 94 L 97 07/12/18 06:00 07/12/18 06:15 07/12/18 06:30 Temperature Pulse Rate 100 H 105 H 101 H Respiratory Rate 33 H 42 H 35 H Blood Pressure 140/69 141/70 H 138/70 Pulse Oximetry 97 92 L 96 07/12/18 06:45 07/12/18 07:00 07/12/18 07:15 Temperature Pulse Rate 99 H 100 H 100 H Respiratory Rate 34 H 33 H 34 H Blood Pressure 141/73 H 141/71 H 144/67 H Pulse Oximetry 97 97 96 07/12/18 07:30 07/12/18 07:45 07/12/18 08:00 Temperature 97.6 F Pulse Rate 102 H 102 H 104 H Respiratory Rate 28 H 33 H 38 H Blood Pressure 126/76 130/62 Pulse Oximetry 99 98 94 L 07/12/18 08:07 07/12/18 08:15 07/12/18 08:30 Temperature Pulse Rate 103 H 106 H 102 H Respiratory Rate 40 H 43 H 36 H Blood Pressure 141/86 H 135/66 162/67 H Pulse Oximetry 93 L 94 L 96 07/12/18 08:45 07/12/18 09:00 07/12/18 09:15 Temperature Pulse Rate 106 H 103 H 106 H Respiratory Rate 38 H 34 H 41 H Blood Pressure 118/60 138/65 136/76 Pulse Oximetry 93 L 97 92 L 07/12/18 09:23 07/12/18 09:30 07/12/18 09:45 Temperature Pulse Rate 104 H 103 H 104 H Respiratory Rate 33 H 34 H 30 H Blood Pressure 112/51 L 135/65 Pulse Oximetry 95 95 96 07/12/18 10:00 07/12/18 10:15 07/12/18 10:30 Temperature Pulse Rate 110 H 104 H 103 H Respiratory Rate 39 H 36 H 34 H Blood Pressure 147/75 H 144/67 H 140/64 Pulse Oximetry 95 97 98 07/12/18 10:45 07/12/18 11:00 07/12/18 11:15 Temperature Pulse Rate 103 H 105 H 106 H Respiratory Rate 38 H 34 H 39 H Blood Pressure 138/65 135/64 131/66 Pulse Oximetry 97 96 98 07/12/18 11:30 07/12/18 11:45 07/12/18 12:00 Temperature 97.5 F L Pulse Rate 105 H 105 H 103 H Respiratory Rate 39 H 36 H 40 H Blood Pressure 135/63 128/60 155/69 H Pulse Oximetry 93 L 95 99 07/12/18 12:15 07/12/18 12:30 07/12/18 12:45 Temperature Pulse Rate 103 H 103 H 104 H Respiratory Rate 42 H 38 H 44 H Blood Pressure 150/70 H 145/64 H 152/65 H Pulse Oximetry 97 96 95 07/12/18 12:56 07/12/18 13:00 07/12/18 13:15 Temperature Pulse Rate 103 H 101 H 110 H Respiratory Rate 33 H 39 H 39 H Blood Pressure 135/70 125/55 L Pulse Oximetry 100 94 L 07/12/18 13:30 07/12/18 13:45 07/12/18 14:00 Temperature Pulse Rate 110 H 108 H 110 H Respiratory Rate 42 H 35 H 38 H Blood Pressure 133/85 121/66 106/69 Pulse Oximetry 93 L 96 94 L 07/12/18 14:15 07/12/18 14:30 07/12/18 14:45 Temperature Pulse Rate 112 H 108 H 106 H Respiratory Rate 50 H 37 H 34 H Blood Pressure 144/67 H 146/69 H 146/70 H Pulse Oximetry 90 L 93 L 94 L 07/12/18 15:00 07/12/18 15:15 07/12/18 15:30 Temperature Pulse Rate 105 H 103 H 109 H Respiratory Rate 34 H 33 H 45 H Blood Pressure 146/70 H 138/69 157/71 H Pulse Oximetry 95 96 91 L 07/12/18 15:45 07/12/18 16:00 07/12/18 17:22 Temperature 98.5 F Pulse Rate 104 H 103 H 107 H Respiratory Rate 41 H 40 H 41 H Blood Pressure 158/85 H 131/68 Pulse Oximetry 95 93 L Intake & Output 07/11/18 07/12/18 07/12/18 18:59 06:59 18:59 Intake Total 1311.2 / 1311.2 4000 / 4000 1800 / 1800 Output Total 225 / 225 Balance 1311.2 / 1311.2 4000 / 4000 1575 / 1575 Weight 75.1 kg Intake: IV 1311.2 / 1311.2 4000 / 4000 1800 / 1800 NS Inj 1,000 ML @ 125 mls/hr IV 1800 / 1800 1000 / 1000 .CONT .Q8H [facility] Rx#:[id number] Sodium Bicarbonate 8.4% Inj 150 1000 / 1000 MEQ In Sterile Water for Inj 850 ML @ 150 mls/hr IV.CONT . Q6H40M [facility] Rx#:[id number] Flexbumin 25% Inj 100 ML @ 60 100 / 100 mls/hr IV.SIG ONCE ONE Rx#: [id number] Alburx 5% Inj 500 ML @ 250 mls/ 500 / 500 hr IV.SIG Q12H [facility] Rx#:[id number] Cubicin Inj 400 MG In NS Inj 100 / 100 100 ML @ 200 mls/hr IV.SIG Q48H [facility] Rx#:[id number] Magnesium Sulfate 1 gm/D5W 100 100 / 100 ml Premix 100 ML @ 100 mls/hr IV.SIG ONCE ONE Rx#:[id number] MVI-12 Inj 10 ML Thiamine Inj 511.2 / 511.2 100 MG Folvite Inj 1 MG In NS Inj 500 ML @ 125 mls/hr IV.SIG Q24H [facility] Rx#:[id number] Zosyn 2.25 GM Premix 50 ML @ 50 / 50 100 / 100 100 / 100 100 mls/hr IV.SIG Q8H [facility] Rx#: [id number] Zosyn 3.375 GM Premix 50 ML @ 50 / 50 100 mls/hr IV.SIG Q6H [facility] Rx#: [id number] KCl 20 mEq Premix Inj 20 meq In 200 / 200 100 ml @ 50 mls/hr IV.SIG Q2H [facility] Rx#:[id number] NS Inj 1,000 ML @ 2000 mls/hr 1000 / 1000 IV.SIG Q30M [facility] Rx#:[id number] / Normal Saline Inj 500 ML @ 500 / 500 Wide Open IV.SIG BOLUS ONE Rx#: [id number] Output: Urine Amount (Catheter) 225 / 225 Indwelling Urethral Catheter 225 / 225 Other: # Voids 1 # Incontinent Voids 0 Date of Last Bowel Movement 07/10/18 07/10/18 07/10/18 - Urinary Catheter Management Indwelling Urethral Catheter Cath placed during this visit: no <Aura Price - Last Filed: 07/12/18 18:43> Results - Labs CBC & Chem 7: 07/12/18 04:35 07/12/18 04:35 Laboratory Results - last 24 hr 07/09/18 07/10/18 07/11/18 20:17 12:49 11:47 WBC RBC Hgb Hct MCV MCH MCHC RDW Plt Count MPV Prelim Diff (Auto) Neut % (Auto) Lymph % (Auto) [place] % (Auto) Eos % (Auto) Baso % (Auto) Neut # (Auto) Lymph # (Auto) [place] # (Auto) Eos # (Auto) Baso # (Auto) WBC Differential Diff Scan Differential Comment Platelet Estimate Platelet Morphology RBC Morphology PT INR APTT Sodium Potassium Chloride Carbon Dioxide Anion Gap BUN Creatinine Estimated GFR POC Glucose 105 Random Glucose Lactic Acid Calcium Calcium Adj for Albumin Phosphorus Magnesium Total Bilirubin AST ALT Alkaline Phosphatase Ammonia Total Creatine Kinase Total Protein Albumin Lipase Stool x-[id number] Less than 30 Anti-Smooth Muscle Ab Negative 07/11/18 07/11/18 07/12/18 16:47 16:47 04:35 WBC 5.9 RBC 2.95 L Hgb 10.0 L Hct 28.7 L MCV 97.2 MCH 33.8 MCHC 34.7 RDW 13.4 Plt Count 32 L MPV 9.8 Prelim Diff (Auto) Slide review pending Neut % (Auto) 75.6 H Lymph % (Auto) 10.5 [place] % (Auto) 13.3 H Eos % (Auto) 0.3 Baso % (Auto) 0.3 Neut # (Auto) 4.5 Lymph # (Auto) 0.6 L [place] # (Auto) 0.8 Eos # (Auto) 0.0 Baso # (Auto) 0.0 WBC Differential . Diff Scan Auto diff confirmed Differential Comment . Platelet Estimate Low L Platelet Morphology Normal RBC Morphology Normal PT INR APTT Sodium Potassium 3.1 L Chloride Carbon Dioxide Anion Gap BUN Creatinine Estimated GFR POC Glucose Random Glucose Lactic Acid 6.0 H* Calcium Calcium Adj for Albumin Phosphorus Magnesium Total Bilirubin AST ALT Alkaline Phosphatase Ammonia Total Creatine Kinase Total Protein Albumin Lipase Stool z-3-Fvwutertknz Anti-Smooth Muscle Ab 07/12/18 07/12/18 07/12/18 04:35 04:35 04:35 WBC RBC Hgb Hct MCV MCH MCHC RDW Plt Count MPV Prelim Diff (Auto) Neut % (Auto) Lymph % (Auto) [place] % (Auto) Eos % (Auto) Baso % (Auto) Neut # (Auto) Lymph # (Auto) [place] # (Auto) Eos # (Auto) Baso # (Auto) WBC Differential Diff Scan Differential Comment Platelet Estimate Platelet Morphology RBC Morphology PT 24.1 H INR 2.4 APTT 40.6 H Sodium 137 Potassium 3.3 L Chloride 100 Carbon Dioxide 27.7 Anion Gap 9 BUN 34 H Creatinine 3.34 H Estimated GFR 19 L POC Glucose Random Glucose 129 H Lactic Acid 2.6 H Calcium 7.0 L* Calcium Adj for Albumin 8.3 L Phosphorus 3.1 Magnesium 2.2 Total Bilirubin 4.9 H AST 1047 H ALT 1219 H Alkaline Phosphatase 72 Ammonia Total Creatine Kinase 143 Total Protein 5.7 L Albumin 2.4 L Lipase 338 Stool l-5-Pvwdkvfkwwp Anti-Smooth Muscle Ab 07/12/18 04:35 WBC RBC Hgb Hct MCV MCH MCHC RDW Plt Count MPV Prelim Diff (Auto) Neut % (Auto) Lymph % (Auto) [place] % (Auto) Eos % (Auto) Baso % (Auto) Neut # (Auto) Lymph # (Auto) [place] # (Auto) Eos # (Auto) Baso # (Auto) WBC Differential Diff Scan Differential Comment Platelet Estimate Platelet Morphology RBC Morphology PT INR APTT Sodium Potassium Chloride Carbon Dioxide Anion Gap BUN Creatinine Estimated GFR POC Glucose Random Glucose Lactic Acid Calcium Calcium Adj for Albumin Phosphorus Magnesium Total Bilirubin AST ALT Alkaline Phosphatase Ammonia 29 Total Creatine Kinase Total Protein Albumin Lipase Stool z-9-Sbeptdberhn Anti-Smooth Muscle Ab Microbiology 07/10/18 22:30 Clean Catch Urine Urine Culture - Final No growth in 48 hours 07/08/18 19:30 Blood - Peripheral Aerobic Blood Culture - Final S. aureus MRSA 07/08/18 19:30 Blood - Peripheral Anaerobic Blood Culture - Final S. aureus MRSA 07/08/18 19:35 Blood - Peripheral Aerobic Blood Culture - Final S. aureus MRSA 07/08/18 19:35 Blood - Peripheral Anaerobic Blood Culture - Preliminary Staphylococcus coag negative 07/10/18 11:15 Blood - Peripheral Aerobic Blood Culture - Preliminary No growth in 1 day 07/10/18 11:15 Blood - Peripheral Anaerobic Blood Culture - Preliminary No growth in 1 day 07/10/18 11:20 Blood - Peripheral Aerobic Blood Culture - Preliminary No growth in 1 day 07/10/18 11:20 Blood - Peripheral Anaerobic Blood Culture - Preliminary No growth in 1 day - Imaging Impressions Abdomen/Bladder Ultrasound 07/11/18 00:00 CONCLUSION: 1. Normal ultrasound appearance of the kidneys. 2. Other findings include hepatic steatosis and left pleural effusion. Elbow CT 07/11/18 00:00 CONCLUSION: 1. Small fracture fragment off the olecranon. 2. There is subcutaneous edema identified posterior to the elbow with soft tissue swelling. Chest X-Ray 07/12/18 07:48 CONCLUSION: Acute interstitial vascular congestion with right-sided airspace disease and suspected small bilateral effusions. <No Charles - Last Filed: 07/12/18 10:14> - Labs CBC & Chem 7: 07/12/18 04:35 07/12/18 04:35 Laboratory Results - last 24 hr 07/09/18 07/10/18 07/12/18 20:17 19:40 04:35 WBC 5.9 RBC 2.95 L Hgb 10.0 L Hct 28.7 L MCV 97.2 MCH 33.8 MCHC 34.7 RDW 13.4 Plt Count 32 L MPV 9.8 Prelim Diff (Auto) Slide review pending Neut % (Auto) 75.6 H Lymph % (Auto) 10.5 [place] % (Auto) 13.3 H Eos % (Auto) 0.3 Baso % (Auto) 0.3 Neut # (Auto) 4.5 Lymph # (Auto) 0.6 L [place] # (Auto) 0.8 Eos # (Auto) 0.0 Baso # (Auto) 0.0 WBC Differential . Diff Scan Auto diff confirmed Differential Comment . Platelet Estimate Low L Platelet Morphology Normal RBC Morphology Normal PT INR APTT Sodium Potassium Chloride Carbon Dioxide Anion Gap BUN Creatinine Estimated GFR Random Glucose Lactic Acid Calcium Calcium Adj for Albumin Phosphorus Magnesium Total Bilirubin AST ALT Alkaline Phosphatase Ammonia Total Creatine Kinase Total Protein Albumin Tpvrn-4-Aukrjkjnrgm 215 H Ceruloplasmin 24 Lipase Rheumatoid Factor Less than 14 07/12/18 07/12/18 07/12/18 04:35 04:35 04:35 WBC RBC Hgb Hct MCV MCH MCHC RDW Plt Count MPV Prelim Diff (Auto) Neut % (Auto) Lymph % (Auto) [place] % (Auto) Eos % (Auto) Baso % (Auto) Neut # (Auto) Lymph # (Auto) [place] # (Auto) Eos # (Auto) Baso # (Auto) WBC Differential Diff Scan Differential Comment Platelet Estimate Platelet Morphology RBC Morphology PT 24.1 H INR 2.4 APTT 40.6 H Sodium 137 Potassium 3.3 L Chloride 100 Carbon Dioxide 27.7 Anion Gap 9 BUN 34 H Creatinine 3.34 H Estimated GFR 19 L Random Glucose 129 H Lactic Acid 2.6 H Calcium 7.0 L* Calcium Adj for Albumin 8.3 L Phosphorus 3.1 Magnesium 2.2 Total Bilirubin 4.9 H AST 1047 H ALT 1219 H Alkaline Phosphatase 72 Ammonia Total Creatine Kinase 143 Total Protein 5.7 L Albumin 2.4 L Bkkns-0-Jfemharazqp Ceruloplasmin Lipase 338 Rheumatoid Factor 07/12/18 04:35 WBC RBC Hgb Hct MCV MCH MCHC RDW Plt Count MPV Prelim Diff (Auto) Neut % (Auto) Lymph % (Auto) [place] % (Auto) Eos % (Auto) Baso % (Auto) Neut # (Auto) Lymph # (Auto) [place] # (Auto) Eos # (Auto) Baso # (Auto) WBC Differential Diff Scan Differential Comment Platelet Estimate Platelet Morphology RBC Morphology PT INR APTT Sodium Potassium Chloride Carbon Dioxide Anion Gap BUN Creatinine Estimated GFR Random Glucose Lactic Acid Calcium Calcium Adj for Albumin Phosphorus Magnesium Total Bilirubin AST ALT Alkaline Phosphatase Ammonia 29 Total Creatine Kinase Total Protein Albumin Nykhm-2-Vwfylpxccnj Ceruloplasmin Lipase Rheumatoid Factor Microbiology 07/10/18 11:15 Blood - Peripheral Aerobic Blood Culture - Preliminary No growth in 2 days 07/10/18 11:15 Blood - Peripheral Anaerobic Blood Culture - Preliminary No growth in 2 days 07/10/18 11:20 Blood - Peripheral Aerobic Blood Culture - Preliminary No growth in 2 days 07/10/18 11:20 Blood - Peripheral Anaerobic Blood Culture - Preliminary No growth in 2 days 07/10/18 22:30 Clean Catch Urine Urine Culture - Final No growth in 48 hours - Imaging Impressions Elbow CT 07/11/18 00:00 CONCLUSION: 1. Small fracture fragment off the olecranon. 2. There is subcutaneous edema identified posterior to the elbow with soft tissue swelling. Chest X-Ray 07/12/18 07:48 CONCLUSION: Acute interstitial vascular congestion with right-sided airspace disease and suspected small bilateral effusions. <DeeAura - Last Filed: 07/12/18 18:43> Assessment and Plan (1) Liver failure Status: Acute Code(s): K72.90 - Hepatic failure, unspecified without coma (2) Hyperbilirubinemia Status: Acute Code(s): E80.6 - Other disorders of bilirubin metabolism - Plan Assessment: - Elevated LFTs with findings indicative of cirrhosis He denies IV drug use, tattoos or any high risk sexual behaviors. Denies personal or family history of liver issues. Does admit to smoking cocaine. Patient states he smokes 1 pack/day and drinks a sixpack of beer daily. LFTs trending up since admission. Pt was transferred to [facility] overnight after becoming hypotensive, now on a Talon gtt. Liver work up: BOBBY, ASMA, AMA pending. Ceruloplasmin pending. AAT pending. AFP-3.7. Iron-123 TIBC-217 %sat-56.7 [id number] Hepatitis panel negative. 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 The SMA and MIC are patent. Hepatic steatosis. HIDA (07/09) No activity in intrahepatic ducts, common duct or small bowel. Considerations include include acute obstruction of the common duct and diffuse hepatocellular disease. CT scan shows no dilatation of the common duct or intrahepatic ducts. Diffuse hepatocellular disease is suspected. Given history of cirrhosis, exam is unreliable, do not suspect acute cholecystitis. US gallbladder (07/08) Small, nonspecific pericholecystic fluid without stones , wall thickening or sonographic Lundy's sign. The fluid may be on the basis of hepatocellular disease. The ultrasound does not support acute cholecystitis. Fatty infiltrated and mildly enlarged liver. - Anemia- He denies ever having had a EGD or colonoscopy in the past. No obvious bleeding - Coagulopathy, thrombocytopenia, hypoalbuminemia- in setting of cirrhosis - MRSA bacteremia- ID following, unclear etiology, possible need for LESLIE, repeat blood cultures pending - Carotid artery stenosis- vascular surgery following (07/11) Renal indices increased today, therefore cardiac cath has been cancelled. Pt states he has been unable to urinate at all since last night even though he feels like he needs to. Discussed with RN to let attending know may need bladder scan vs ultrasound. Pt continues to have diffuse abdominal pain. Denies nausea, vomiting. Has not had BM. H/H trending down, no obvious bleeding, occult stool pending. LFTs trending down some today, liver work up still pending. 07/12/2018 patient continues in the intensive care setting, more awake today and answering a few simple questions, tachycardic labs reviewed which showed current hemoglobin 10, AST 1047, ALT 1219, bilirubin 4.9, LFTs are trending down , hepatocellular disease could be related to alcohol versus obstruction versus medications, possible fatty liver versus shock liver. Need to continue to monitor for any gallbladder disease. Patient will need to stabilize further before any further GI procedures can be performed as well as any vascular clearance. GI will see and follow and monitor labs as needed, appreciate vascular surgery and ID input. Current INR 2.4 which is trending down. Plan Diet Monitor labs and monitor further liver workup Supportive care PPI, lactulose 3 times a day, Zofran as needed Multivitamins Bowel regimen as needed Monitor INR Occult stool pending Liver work up pending, hemochromatosis pending Patient was seen per myself and Dr. Price, note was written her behalf <No Charles - Last Filed: 07/12/18 10:14> (1) Liver failure Status: Acute Code(s): K72.90 - Hepatic failure, unspecified without coma (2) Hyperbilirubinemia Status: Acute Code(s): E80.6 - Other disorders of bilirubin metabolism - Attending Attestation seen, examined agree with above <Aura Price - Last Filed: 07/12/18 18:43>
[2018-07-12] MEDS: Mupirocin 2% Nasal Oint Topical Syringe EACH NARE SCH ×2 (10:49→21:07)
[2018-07-12] MEDS: Potassium Chlor 20 mEq Premix 20 MEQ/100 ML PIGGYBACK IV.SIG SCH ×2 (11:47→13:55)
[2018-07-12] MEDS: Bumetanide Inj 25 MG/100 ML BAG IV.CONT SCH (11:47)
--- NOTE | 2018-07-12 12:05 | P.PNCC ---
Subjective Subjective Remarks/Hospital Course: 63-year-old male. Admission 07/09/2018. Date of consultation 2017. Past medical history includes ongoing alcoholism. Urine tox screen on admission positive for cocaine and opiates. Patient originally fell from a single bed about 1 week ago. He did not seek treatment for his swollen left elbow. He is initially diagnosed here with a left olecranon fracture/ nondisplaced. Seen by Dr. Blanco recommended splint/immobilization. Follow-up outpatient with x-rays in 2 weeks. He was treated with alcoholism for on the [facility] protocol receiving multivitamin, folate and thiamine. During admission, patient had multiple complaints including right upper quadrant pain. Patient has CT his abdomen/pelvis revealed hepatic steatosis, pericholecystic fluid with no ductal dilatation. Ultrasound showed pericholecystic 6 with negative Lundy sign. Nuclear medicine scan revealed no activity in the intrahepatic ducts compatible ducts or small bowel. Likely slightly disease. Patient was evaluated by gastroenterology for this issue. BOBBY, AMA, ASMA, SSA a and B, Ronquillo, scleroderma and double-stranded DNA all pending. Negative hepatitis panel. Noted patient had angiogram of the abdomen which revealed no focal stenosis of the SMA, MIC or celiac. Patient elevated troponin. Was seen by Dr. chaudhry. Echocardiogram revealed EF 55-6%. PA P 43 mmHg. Trace to mild TR. Possibly demand ischemia due to sepsis. Was on aspirin. Did receive/placed on heparin drip. This is currently on hold due to coagulopathic state. Patient has gram-positive cocci in blood. Infectious disease has been counseled. Currently on vancomycin for comfort.) I repeated blood cultures, sputum and urine culture today. Patient is 80% right carotid artery stenosis. Followed by Dr. Bassett. Patient was transferred to ICU with persistent hypotension increasing lactic acidosis in the setting of acute liver injury. Worsening renal function. Patient has received 2.5 L normal saline the present time his blood pressure appears stable. Patient is currently denying abdominal pain. SUBJECTIVE: 07/11: Currently resting in bed and asking when he can go home. Creatinine is elevated 2.3. Will bolus with additional fluid. Echocardiogram results noted. 07/12: Neglible urine output overnight. Culver placed. Short of breath this morning. Not requiring pressors Objective Vital Signs / I&O: Vital Signs 07/11/18 11:45 07/11/18 11:47 07/11/18 12:00 Temperature Pulse Rate 100 H 103 H 106 H Respiratory Rate 33 H 27 H 25 H Blood Pressure 159/72 H 151/67 H Pulse Oximetry 97 100 07/11/18 12:15 07/11/18 12:30 07/11/18 12:45 Temperature Pulse Rate 109 H 108 H 113 H Respiratory Rate 27 H 32 H 32 H Blood Pressure 159/72 H 163/72 H 169/77 H Pulse Oximetry 94 L 95 94 L 07/11/18 13:00 07/11/18 13:15 07/11/18 13:20 Temperature Pulse Rate 106 H 104 H 103 H Respiratory Rate 32 H 22 30 H Blood Pressure 169/77 H 179/81 H 170/63 H Pulse Oximetry 95 94 L 95 07/11/18 13:30 07/11/18 13:42 07/11/18 13:45 Temperature Pulse Rate 102 H 103 H 102 H Respiratory Rate 28 H 29 H 27 H Blood Pressure 172/75 H 150/65 H 148/67 H Pulse Oximetry 96 95 94 L 07/11/18 14:00 07/11/18 14:15 07/11/18 14:30 Temperature Pulse Rate 106 H 115 H 106 H Respiratory Rate 34 H 35 H 37 H Blood Pressure 144/64 H 159/74 H 152/66 H Pulse Oximetry 95 94 L 94 L 07/11/18 14:45 07/11/18 14:47 07/11/18 14:53 Temperature Pulse Rate 125 H 128 H 129 H Respiratory Rate 55 H 45 H 42 H Blood Pressure 207/100 H 219/93 H Pulse Oximetry 90 L 79 L 07/11/18 14:55 07/11/18 14:58 07/11/18 15:00 Temperature Pulse Rate 124 H 114 H 116 H Respiratory Rate 37 H 45 H 34 H Blood Pressure 221/93 H 192/67 H 188/81 H Pulse Oximetry 89 L 88 L 86 L 07/11/18 15:08 07/11/18 15:10 07/11/18 15:15 Temperature Pulse Rate 115 H 115 H 118 H Respiratory Rate 36 H 37 H 39 H Blood Pressure 182/79 H 178/75 H 164/73 H Pulse Oximetry 92 L 92 L 91 L 07/11/18 15:30 07/11/18 15:45 07/11/18 16:00 Temperature 98.5 F Pulse Rate 142 H 118 H 117 H Respiratory Rate 43 H 39 H 40 H Blood Pressure 165/70 H 143/56 H 139/60 Pulse Oximetry 83 L 96 96 07/11/18 16:15 07/11/18 16:30 07/11/18 19:00 Temperature Pulse Rate 118 H 124 H 119 H Respiratory Rate 42 H 41 H 36 H Blood Pressure 136/62 138/71 133/63 Pulse Oximetry 97 94 L 94 L 07/11/18 19:15 07/11/18 19:30 07/11/18 19:45 Temperature Pulse Rate 115 H 114 H 114 H Respiratory Rate 34 H 38 H 31 H Blood Pressure 128/61 125/60 125/62 Pulse Oximetry 97 97 98 07/11/18 20:00 07/11/18 20:06 07/11/18 20:15 Temperature 98.2 F Pulse Rate 113 H 113 H 129 H Respiratory Rate 35 H 41 H Blood Pressure 129/62 139/67 Pulse Oximetry 99 92 L 07/11/18 20:30 07/11/18 20:45 07/11/18 21:00 Temperature Pulse Rate 115 H 114 H 114 H Respiratory Rate 33 H 32 H 32 H Blood Pressure 126/60 124/61 131/63 Pulse Oximetry 95 96 96 07/11/18 21:15 07/11/18 21:19 07/11/18 21:30 Temperature Pulse Rate 113 H 115 H 137 H Respiratory Rate 33 H 22 54 H Blood Pressure 122/63 184/79 H Pulse Oximetry 97 79 L 07/11/18 21:33 07/11/18 21:45 07/11/18 22:00 Temperature Pulse Rate 128 H 118 H 115 H Respiratory Rate 39 H 34 H 38 H Blood Pressure 150/65 H 142/63 H 125/59 L Pulse Oximetry 91 L 94 L 93 L 07/11/18 22:15 07/11/18 22:30 07/11/18 22:45 Temperature Pulse Rate 114 H 115 H 114 H Respiratory Rate 38 H 37 H 35 H Blood Pressure 125/59 L 128/61 126/61 Pulse Oximetry 93 L 95 96 07/11/18 23:00 07/11/18 23:15 07/11/18 23:30 Temperature Pulse Rate 113 H 113 H 112 H Respiratory Rate 36 H 36 H 36 H Blood Pressure 128/63 128/65 137/76 Pulse Oximetry 96 97 97 07/11/18 23:45 07/11/18 23:47 07/12/18 00:00 Temperature 98.3 F Pulse Rate 111 H 111 H 112 H Respiratory Rate 35 H 36 H 0 L Blood Pressure 129/63 128/62 147/72 H Pulse Oximetry 97 96 92 L 07/12/18 00:15 07/12/18 00:30 07/12/18 00:45 Temperature Pulse Rate 112 H 109 H 107 H Respiratory Rate 40 H 31 H 34 H Blood Pressure 139/66 137/70 135/66 Pulse Oximetry 95 98 97 07/12/18 01:00 07/12/18 01:15 07/12/18 01:30 Temperature Pulse Rate 107 H 105 H 104 H Respiratory Rate 36 H 33 H 33 H Blood Pressure 139/67 134/62 140/66 Pulse Oximetry 97 99 100 07/12/18 01:45 07/12/18 02:00 07/12/18 02:15 Temperature Pulse Rate 103 H 104 H 108 H Respiratory Rate 32 H 31 H 40 H Blood Pressure 139/68 132/64 131/63 Pulse Oximetry 100 99 95 07/12/18 02:30 07/12/18 02:45 07/12/18 03:00 Temperature Pulse Rate 105 H 105 H 104 H Respiratory Rate 38 H 37 H 35 H Blood Pressure 137/66 135/63 140/64 Pulse Oximetry 98 100 99 07/12/18 03:15 07/12/18 03:30 07/12/18 03:45 Temperature Pulse Rate 105 H 104 H 104 H Respiratory Rate 37 H 35 H 36 H Blood Pressure 136/65 135/65 141/70 H Pulse Oximetry 97 97 97 07/12/18 04:00 07/12/18 04:15 07/12/18 04:30 Temperature 98.3 F Pulse Rate 106 H 107 H 108 H Respiratory Rate 35 H 37 H 41 H Blood Pressure 135/71 111/52 L 140/62 Pulse Oximetry 96 96 92 L 07/12/18 04:45 07/12/18 05:00 07/12/18 05:15 Temperature Pulse Rate 105 H 103 H 101 H Respiratory Rate 32 H 35 H 33 H Blood Pressure 142/70 H 130/66 131/65 Pulse Oximetry 98 99 99 07/12/18 05:30 07/12/18 05:45 07/12/18 06:00 Temperature Pulse Rate 104 H 102 H 100 H Respiratory Rate 46 H 34 H 33 H Blood Pressure 136/69 138/69 140/69 Pulse Oximetry 94 L 97 97 07/12/18 06:15 07/12/18 06:30 07/12/18 06:45 Temperature Pulse Rate 105 H 101 H 99 H Respiratory Rate 42 H 35 H 34 H Blood Pressure 141/70 H 138/70 141/73 H Pulse Oximetry 92 L 96 97 07/12/18 07:00 07/12/18 07:15 07/12/18 07:30 Temperature Pulse Rate 100 H 100 H 102 H Respiratory Rate 33 H 34 H 28 H Blood Pressure 141/71 H 144/67 H 126/76 Pulse Oximetry 97 96 99 07/12/18 07:45 07/12/18 08:00 07/12/18 08:07 Temperature 97.6 F Pulse Rate 102 H 104 H 103 H Respiratory Rate 33 H 38 H 40 H Blood Pressure 130/62 141/86 H Pulse Oximetry 98 94 L 93 L 07/12/18 08:15 07/12/18 08:30 07/12/18 08:45 Temperature Pulse Rate 106 H 102 H 106 H Respiratory Rate 43 H 36 H 38 H Blood Pressure 135/66 162/67 H 118/60 Pulse Oximetry 94 L 96 93 L 07/12/18 09:00 07/12/18 09:15 07/12/18 09:23 Temperature Pulse Rate 103 H 106 H 104 H Respiratory Rate 34 H 41 H 33 H Blood Pressure 138/65 136/76 Pulse Oximetry 97 92 L 95 07/12/18 09:30 07/12/18 09:45 07/12/18 10:00 Temperature Pulse Rate 103 H 104 H 110 H Respiratory Rate 34 H 30 H 39 H Blood Pressure 112/51 L 135/65 147/75 H Pulse Oximetry 95 96 95 Intake & Output 07/11/18 07/12/18 07/12/18 18:59 06:59 18:59 Intake Total 1311.2 / 1311.2 4000 / 4000 Balance 1311.2 / 1311.2 4000 / 4000 Weight 75.1 kg Intake: IV 1311.2 / 1311.2 4000 / 4000 NS Inj 1,000 ML @ 125 mls/hr IV 1800 / 1800 .CONT .Q8H [facility] Rx#:[id number] Sodium Bicarbonate 8.4% Inj 150 1000 / 1000 MEQ In Sterile Water for Inj 850 ML @ 150 mls/hr IV.CONT . Q6H40M [facility] Rx#:[id number] Flexbumin 25% Inj 100 ML @ 60 100 / 100 mls/hr IV.SIG ONCE ONE Rx#: [id number] Cubicin Inj 400 MG In NS Inj 100 / 100 100 ML @ 200 mls/hr IV.SIG Q48H [facility] Rx#:[id number] Magnesium Sulfate 1 gm/D5W 100 100 / 100 ml Premix 100 ML @ 100 mls/hr IV.SIG ONCE ONE Rx#:[id number] MVI-12 Inj 10 ML Thiamine Inj 511.2 / 511.2 100 MG Folvite Inj 1 MG In NS Inj 500 ML @ 125 mls/hr IV.SIG Q24H [facility] Rx#:[id number] Zosyn 2.25 GM Premix 50 ML @ 50 / 50 100 / 100 100 mls/hr IV.SIG Q8H [facility] Rx#: [id number] Zosyn 3.375 GM Premix 50 ML @ 50 / 50 100 mls/hr IV.SIG Q6H [facility] Rx#: [id number] NS Inj 1,000 ML @ 2000 mls/hr 1000 / 1000 IV.SIG Q30M [facility] Rx#:[id number] 1/2 Normal Saline Inj 500 ML @ 500 / 500 Wide Open IV.SIG BOLUS ONE Rx#: [id number] Other: # Voids 1 # Incontinent Voids 0 Date of Last Bowel Movement 07/10/18 07/10/18 07/10/18 Result Diagrams: 07/12/18 04:35 07/12/18 04:35 Objective Remarks: GENERAL: 63-year-old male resting in bed, tachypneic SKIN: Warm and dry. HEAD: Atraumatic. Normocephalic. EYES: Pupils equal and round 3 mm bilaterally and reactive. No scleral icterus. No injection or drainage. ENT: No nasal bleeding or discharge. Mucous membranes pink and moist. NECK: Trachea midline. No JVD. CARDIOVASCULAR: Regular rate and rhythm. S1, S2 no S4 RESPIRATORY: tachypneic, air entry decreased at bases, bilateral crackles GASTROINTESTINAL: Abdomen soft, non-tender, nondistended. Hepatic and splenic margins not palpable. MUSCULOSKELETAL: Extremities without clubbing, cyanosis, or edema. Left upper extremity currently in splint wrapped in Armen bandage NEUROLOGICAL: Awake and alert. No obvious cranial nerve deficits. Motor grossly within normal limits. Five out of 5 muscle strength in the arms and legs. Normal speech. Assessment and Plan - Assessment and Plan Plan: Neuro/Psych: EtOH abuse Recent cocaine/opiate abuse -inhaled. Denies intravenous CIWA protocol initiated with Lorazepam/haloperidol as needed MVI/ folate. Patient states he inhaled cocaine 4-5 days ago. Denies IV drug use. Monitor for DTs Discontinued acetaminophen and related products with elevated transaminases CV: Lactic acidosis Severe sepsis Elevated troponin likely demand ischemia Right carotid artery stenosis Elevated CPK Status post 2.5 L crystalloid resuscitation Lactates initially 2.2 currently 4.9 noted elevated transaminases difficulty clearing. Elevate cardiology. Dr. chaudhry appreciated.. 2D echocardiogram revealed Normal left ventricular size. Wall thickness is normal. The left ventricular systolic function is normal with an estimated ejection fraction in the range of 55-60%. There is trace tricuspid valve regurgitation. The estimated pulmonary arterial pressure is 13 mmHg On aspirin 81 mg daily and heparin drip. Noted discontinued heparin drip with coagulopathic state. Troponin trending downward. 1.66. Currently 1.11. Followed by vascular surgery for right carotid artery stenosis 80%. Will need intervention when clinically stable. stopped IVF. Bumex gtt ordered to mobilize fluid Resp: Tobacco abuse Emphysematous type changes on CT neck Hyperammonia Hypoalbuminemia Nasal cannula to maintain saturations greater than equal 92% Incentive spirometry while awake Albuterol/ipratropium aerosols every 4 hours with albuterol aerosols every 2 hours as needed dyspnea Follow-up on chest x-ray and ABG Tobacco cessation will be encouraged GI: Elevated transaminases Elevated total bilirubin Poss acalc jody Hypoalbuminemia Noted CT abdomen/pelvis revealed possible early cholecystitis. Pericholecystic fluid. Ultrasound revealed negative Lundy sign. Nuclear medicine scan revealed no activity in the intrahepatic ductal compound bile duct or small bowel. Possibly opacified disease. CT angiogram of the abdomen/pelvis revealed 20-30% stenosis of the SMA. Patent MIC, celiac. Evaluated by gastroenterology. Hepatitis panel negative. Pending ceruloplasmin, BOBBY, AMA, ASMA, SSA AMB, anti-Ronquillo, RP, scleroderma, double-stranded DNA, hemochromatosis Currently on lactulose 30 cc 3 times daily for elevated ammonia. Recheck level in a.m. : Culver catheter if indicated for accurate I's and O's in a critical patient Endo: Sliding scale insulin with Accu-Cheks to maintain euglycemia/every 6 hours low regimen TSH 1. Cortisol 25 Renal: Acute kidney injury Urine eosinophils negative Monitor urine output Accurate I's and Avoid nephrotoxic medication. Discontinued vancomycin 12/ Nephrology consulted. Given lasix with no response. Bumex gtt initiated per nephrology Heme: Macrocytic anemia Thrombocytopenia Coagulopathic state Follow-up on PT/INR/PTT and fibrinogen No indication for transfusion of blood products at this time ID: MRSA bacteremia 2D transthoracic echocardiogram revealed no signs of endocarditis. Infectious disease consultation initiated Day #3 vancomycin and piperacillin/tazobactam. Discontinued vancomycin 12/7. Currently on daptomycin day #1 Replete blood cultures x2 with sputum and urine today 12/ MSK: Left posterior olecranon fracture Followed by Dr. Blanco. Currently in splint immobilized. Follow-up in 2 weeks with x-rays CT left elbow today FEN: Acute hypokalemia Replace electrolytes as clinically indicated KVO IVFcreatinine. 40 mEq KCl times now. Recheck at 1700 hrs. 1 g mag sulfate IV x1. Access -Utilize peripheral IV. Central line if indicated Prophylaxis -GI -pantoprazole -DVT-SCD/holding heparin drip in light of coagulopathic state. INR is currently 3.1 Follow-up 35 minutes critical care time Getting short of breath. May need intubation. Condition critical. time spent on critical care excluding procedures: 35 min
[2018-07-12] MEDS: Multivitamin Inj 10 ML, Thiamine Inj 100 MG, Folic Acid Inj 1 MG in Sodium Chlor 0.9% I... IV.SIG SCH (13:01)
--- NOTE | 2018-07-12 14:51 | P.PNNP ---
Subjective Interval history: Patient is lethargic open eyes urine output has dropped and given Lasix earlier started on Bumex drip Physical Exam Vital signs: Vital Signs 07/11/18 14:53 07/11/18 14:55 07/11/18 14:58 Temperature Pulse Rate 129 H 124 H 114 H Respiratory Rate 42 H 37 H 45 H Blood Pressure 219/93 H 221/93 H 192/67 H Pulse Oximetry 79 L 89 L 88 L 07/11/18 15:00 07/11/18 15:08 07/11/18 15:10 Temperature Pulse Rate 116 H 115 H 115 H Respiratory Rate 34 H 36 H 37 H Blood Pressure 188/81 H 182/79 H 178/75 H Pulse Oximetry 86 L 92 L 92 L 07/11/18 15:15 07/11/18 15:30 07/11/18 15:45 Temperature Pulse Rate 118 H 142 H 118 H Respiratory Rate 39 H 43 H 39 H Blood Pressure 164/73 H 165/70 H 143/56 H Pulse Oximetry 91 L 83 L 96 07/11/18 16:00 07/11/18 16:15 07/11/18 16:30 Temperature 98.5 F Pulse Rate 117 H 118 H 124 H Respiratory Rate 40 H 42 H 41 H Blood Pressure 139/60 136/62 138/71 Pulse Oximetry 96 97 94 L 07/11/18 19:00 07/11/18 19:15 07/11/18 19:30 Temperature Pulse Rate 119 H 115 H 114 H Respiratory Rate 36 H 34 H 38 H Blood Pressure 133/63 128/61 125/60 Pulse Oximetry 94 L 97 97 07/11/18 19:45 07/11/18 20:00 07/11/18 20:06 Temperature 98.2 F Pulse Rate 114 H 113 H 113 H Respiratory Rate 31 H 35 H Blood Pressure 125/62 129/62 Pulse Oximetry 98 99 07/11/18 20:15 07/11/18 20:30 07/11/18 20:45 Temperature Pulse Rate 129 H 115 H 114 H Respiratory Rate 41 H 33 H 32 H Blood Pressure 139/67 126/60 124/61 Pulse Oximetry 92 L 95 96 07/11/18 21:00 07/11/18 21:15 07/11/18 21:19 Temperature Pulse Rate 114 H 113 H 115 H Respiratory Rate 32 H 33 H 22 Blood Pressure 131/63 122/63 Pulse Oximetry 96 97 07/11/18 21:30 07/11/18 21:33 07/11/18 21:45 Temperature Pulse Rate 137 H 128 H 118 H Respiratory Rate 54 H 39 H 34 H Blood Pressure 184/79 H 150/65 H 142/63 H Pulse Oximetry 79 L 91 L 94 L 07/11/18 22:00 07/11/18 22:15 07/11/18 22:30 Temperature Pulse Rate 115 H 114 H 115 H Respiratory Rate 38 H 38 H 37 H Blood Pressure 125/59 L 125/59 L 128/61 Pulse Oximetry 93 L 93 L 95 07/11/18 22:45 07/11/18 23:00 07/11/18 23:15 Temperature Pulse Rate 114 H 113 H 113 H Respiratory Rate 35 H 36 H 36 H Blood Pressure 126/61 128/63 128/65 Pulse Oximetry 96 96 97 07/11/18 23:30 07/11/18 23:45 07/11/18 23:47 Temperature Pulse Rate 112 H 111 H 111 H Respiratory Rate 36 H 35 H 36 H Blood Pressure 137/76 129/63 128/62 Pulse Oximetry 97 97 96 07/12/18 00:00 07/12/18 00:15 07/12/18 00:30 Temperature 98.3 F Pulse Rate 112 H 112 H 109 H Respiratory Rate 0 L 40 H 31 H Blood Pressure 147/72 H 139/66 137/70 Pulse Oximetry 92 L 95 98 07/12/18 00:45 07/12/18 01:00 07/12/18 01:15 Temperature Pulse Rate 107 H 107 H 105 H Respiratory Rate 34 H 36 H 33 H Blood Pressure 135/66 139/67 134/62 Pulse Oximetry 97 97 99 07/12/18 01:30 07/12/18 01:45 07/12/18 02:00 Temperature Pulse Rate 104 H 103 H 104 H Respiratory Rate 33 H 32 H 31 H Blood Pressure 140/66 139/68 132/64 Pulse Oximetry 100 100 99 07/12/18 02:15 07/12/18 02:30 07/12/18 02:45 Temperature Pulse Rate 108 H 105 H 105 H Respiratory Rate 40 H 38 H 37 H Blood Pressure 131/63 137/66 135/63 Pulse Oximetry 95 98 100 07/12/18 03:00 07/12/18 03:15 07/12/18 03:30 Temperature Pulse Rate 104 H 105 H 104 H Respiratory Rate 35 H 37 H 35 H Blood Pressure 140/64 136/65 135/65 Pulse Oximetry 99 97 97 07/12/18 03:45 07/12/18 04:00 07/12/18 04:15 Temperature 98.3 F Pulse Rate 104 H 106 H 107 H Respiratory Rate 36 H 35 H 37 H Blood Pressure 141/70 H 135/71 111/52 L Pulse Oximetry 97 96 96 07/12/18 04:30 07/12/18 04:45 07/12/18 05:00 Temperature Pulse Rate 108 H 105 H 103 H Respiratory Rate 41 H 32 H 35 H Blood Pressure 140/62 142/70 H 130/66 Pulse Oximetry 92 L 98 99 07/12/18 05:15 07/12/18 05:30 07/12/18 05:45 Temperature Pulse Rate 101 H 104 H 102 H Respiratory Rate 33 H 46 H 34 H Blood Pressure 131/65 136/69 138/69 Pulse Oximetry 99 94 L 97 07/12/18 06:00 07/12/18 06:15 07/12/18 06:30 Temperature Pulse Rate 100 H 105 H 101 H Respiratory Rate 33 H 42 H 35 H Blood Pressure 140/69 141/70 H 138/70 Pulse Oximetry 97 92 L 96 07/12/18 06:45 07/12/18 07:00 07/12/18 07:15 Temperature Pulse Rate 99 H 100 H 100 H Respiratory Rate 34 H 33 H 34 H Blood Pressure 141/73 H 141/71 H 144/67 H Pulse Oximetry 97 97 96 07/12/18 07:30 07/12/18 07:45 07/12/18 08:00 Temperature 97.6 F Pulse Rate 102 H 102 H 104 H Respiratory Rate 28 H 33 H 38 H Blood Pressure 126/76 130/62 Pulse Oximetry 99 98 94 L 07/12/18 08:07 07/12/18 08:15 07/12/18 08:30 Temperature Pulse Rate 103 H 106 H 102 H Respiratory Rate 40 H 43 H 36 H Blood Pressure 141/86 H 135/66 162/67 H Pulse Oximetry 93 L 94 L 96 07/12/18 08:45 07/12/18 09:00 07/12/18 09:15 Temperature Pulse Rate 106 H 103 H 106 H Respiratory Rate 38 H 34 H 41 H Blood Pressure 118/60 138/65 136/76 Pulse Oximetry 93 L 97 92 L 07/12/18 09:23 07/12/18 09:30 07/12/18 09:45 Temperature Pulse Rate 104 H 103 H 104 H Respiratory Rate 33 H 34 H 30 H Blood Pressure 112/51 L 135/65 Pulse Oximetry 95 95 96 07/12/18 10:00 07/12/18 10:15 07/12/18 10:30 Temperature Pulse Rate 110 H 104 H 103 H Respiratory Rate 39 H 36 H 34 H Blood Pressure 147/75 H 144/67 H 140/64 Pulse Oximetry 95 97 98 07/12/18 10:45 07/12/18 11:00 07/12/18 11:15 Temperature Pulse Rate 103 H 105 H 106 H Respiratory Rate 38 H 34 H 39 H Blood Pressure 138/65 135/64 131/66 Pulse Oximetry 97 96 98 07/12/18 11:30 07/12/18 11:45 07/12/18 12:00 Temperature 97.5 F L Pulse Rate 105 H 105 H 103 H Respiratory Rate 39 H 36 H 40 H Blood Pressure 135/63 128/60 155/69 H Pulse Oximetry 93 L 95 99 07/12/18 12:15 07/12/18 12:56 Temperature Pulse Rate 103 H 103 H Respiratory Rate 42 H 33 H Blood Pressure 150/70 H Pulse Oximetry 97 Intake & Output 07/11/18 07/12/18 07/12/18 18:59 06:59 18:59 Intake Total 1311.2 / 1311.2 4000 / 4000 1150 / 1150 Balance 1311.2 / 1311.2 4000 / 4000 1150 / 1150 Weight 75.1 kg Intake: IV 1311.2 / 1311.2 4000 / 4000 1150 / 1150 NS Inj 1,000 ML @ 125 mls/hr IV 1800 / 1800 1000 / 1000 .CONT .Q8H [facility] Rx#:[id number] Sodium Bicarbonate 8.4% Inj 150 1000 / 1000 MEQ In Sterile Water for Inj 850 ML @ 150 mls/hr IV.CONT . Q6H40M [facility] Rx#:[id number] Flexbumin 25% Inj 100 ML @ 60 100 / 100 mls/hr IV.SIG ONCE ONE Rx#: [id number] Cubicin Inj 400 MG In NS Inj 100 / 100 100 ML @ 200 mls/hr IV.SIG Q48H [facility] Rx#:[id number] Magnesium Sulfate 1 gm/D5W 100 100 / 100 ml Premix 100 ML @ 100 mls/hr IV.SIG ONCE ONE Rx#:[id number] MVI-12 Inj 10 ML Thiamine Inj 511.2 / 511.2 100 MG Folvite Inj 1 MG In NS Inj 500 ML @ 125 mls/hr IV.SIG Q24H [facility] Rx#:[id number] Zosyn 2.25 GM Premix 50 ML @ 50 / 50 100 / 100 50 / 50 100 mls/hr IV.SIG Q8H [facility] Rx#: [id number] Zosyn 3.375 GM Premix 50 ML @ 50 / 50 100 mls/hr IV.SIG Q6H [facility] Rx#: [id number] KCl 20 mEq Premix Inj 20 meq In 100 / 100 100 ml @ 50 mls/hr IV.SIG Q2H [facility] Rx#:[id number] NS Inj 1,000 ML @ 2000 mls/hr 1000 / 1000 IV.SIG Q30M [facility] Rx#:[id number] 1/2 Normal Saline Inj 500 ML @ 500 / 500 Wide Open IV.SIG BOLUS ONE Rx#: [id number] Other: # Voids 1 # Incontinent Voids 0 Date of Last Bowel Movement 07/10/18 07/10/18 07/10/18 Narrative: GENERAL: Lethargic. SKIN: Warm and dry. NECK: Supple, trachea midline. No JVD. CARDIOVASCULAR: Regular rate and rhythm without murmurs, gallops, or rubs. RESPIRATORY: Breath sounds rhonchi GASTROINTESTINAL: Abdomen soft, non-tender, nondistended. MUSCULOSKELETAL: No cyanosis, or edema. BACK: Nontender without obvious deformity. No CVA tenderness. - Urinary Catheter Management Indwelling Urethral Catheter Cath placed during this visit: yes Reason for continuing: Hourly intake/output Insertion date: 07/12/18 Insertion time: 07:45 Assessment and Plan - Assessment (1) Acute kidney injury Code(s): N17.9 - Acute kidney failure, unspecified Status: Acute Plan: Acute kidney injury with possible need for cardiac cath and carotid endarterectomy. No previous history of chronic kidney disease. Creatinine at 2.31, Non oliguric Creatinine started to increase on the 6th NEERU possible ATN from sepsis or contrast Nephropathy. Creatinine started to increase about 48 hours after receiving contrast. Also possibility of AIN with vancomycin use however random level not elevated. Urine EOS negative. CT of abdomen shows kidney with in normal limits. Recommend start albumin and be Bumex drip if he does not respond may need dialysis he does have ATN also received vancomycin
[2018-07-12] MEDS: Albumin Human 5% Inj 500 ML IV.SIG SCH (15:36)
[2018-07-12 17:50] LABS: Ceruloplasmin 24 mg/dL (18-36)
[2018-07-12] MEDS: Morphine Inj 4 MG/ML Vial IV.PUSH PRN (22:26)
[2018-07-13] MEDS: Piperacil/Tazo 2.25 GM Premix 50 ML IV.SIG SCH ×3 (02:57→18:00)
[2018-07-13] MEDS: Albumin Human 5% Inj 500 ML IV.SIG SCH ×2 (02:58→14:00)
[2018-07-13] MEDS: Morphine Inj 4 MG/ML Vial IV.PUSH PRN (03:32)
[2018-07-13 03:50] LABS: DS DNA Ab (Crithidia) NEGATIVE (NEGATIVE)
[2018-07-13 05:24] LABS: Baso % (Auto) 0.4 % (0.0-2.0); Eos # (Auto) 0.1 th/mm3 (0.0-0.4); Hematocrit 28.9 % (39.0-51.0); Lymph # (Auto) 0.6 th/mm3 (1.0-4.8); Lymph % (Auto) 8.6 % (9.0-44.0); Mean Corpuscular HGB Conc 34.6 % (32.0-36.0); Mean Corpuscular Hemoglobin 33.6 pg (27.0-34.0); Mean Corpuscular Volume 97.3 fL (80.0-100.0); Mean Platelet Volume 10.7 fL (7.0-11.0); Mono # (Auto) 1.1 th/mm3 (0.0-0.9); Mono % (Auto) 15.6 % (0.0-8.0); Neut # (Auto) 5.4 th/mm3 (1.8-7.7); Neut % (Auto) 74.4 % (16.0-70.0); Platelet Count 39 th/mm3 (150-450); Red Blood Count 2.97 mil/mm3 (4.50-5.90); Red Cell Distribution Width 13.6 % (11.6-17.2); White Blood Count 7.2 th/mm3 (4.0-11.0)
[2018-07-13 05:51] LABS: Calcium 7.7 mg/dL (8.5-10.1); Carbon Dioxide 27.2 meq/L (21.0-32.0); Phosphorus 4.1 mg/dL (2.5-4.9); Potassium 3.5 meq/L (3.5-5.1); Vancomycin,Random 21.9 Comment
[2018-07-13] MEDS ORDERED: Etomidate Inj 40 MG/20 ML Vial IV.PUSH ONE (06:55)
[2018-07-13] MEDS ORDERED: Midazolam Inj 5 MG/ML 1 ML Vial ONE (06:55)
--- NOTE | 2018-07-13 07:32 | P.PNCC ---
Subjective Subjective Remarks/Hospital Course: 63-year-old male. Admission 07/09/2018. Date of consultation 2017. Past medical history includes ongoing alcoholism. Urine tox screen on admission positive for cocaine and opiates. Patient originally fell from a single bed about 1 week ago. He did not seek treatment for his swollen left elbow. He is initially diagnosed here with a left olecranon fracture/ nondisplaced. Seen by Dr. Blanco recommended splint/immobilization. Follow-up outpatient with x-rays in 2 weeks. He was treated with alcoholism for on the [facility] protocol receiving multivitamin, folate and thiamine. During admission, patient had multiple complaints including right upper quadrant pain. Patient has CT his abdomen/pelvis revealed hepatic steatosis, pericholecystic fluid with no ductal dilatation. Ultrasound showed pericholecystic 6 with negative Lundy sign. Nuclear medicine scan revealed no activity in the intrahepatic ducts compatible ducts or small bowel. Likely slightly disease. Patient was evaluated by gastroenterology for this issue. BOBBY, AMA, ASMA, SSA a and B, Ronquillo, scleroderma and double-stranded DNA all pending. Negative hepatitis panel. Noted patient had angiogram of the abdomen which revealed no focal stenosis of the SMA, MIC or celiac. Patient elevated troponin. Was seen by Dr. chaudhry. Echocardiogram revealed EF 55-6%. PA P 43 mmHg. Trace to mild TR. Possibly demand ischemia due to sepsis. Was on aspirin. Did receive/placed on heparin drip. This is currently on hold due to coagulopathic state. Patient has gram-positive cocci in blood. Infectious disease has been counseled. Currently on vancomycin for comfort.) I repeated blood cultures, sputum and urine culture today. Patient is 80% right carotid artery stenosis. Followed by Dr. Bassett. Patient was transferred to ICU with persistent hypotension increasing lactic acidosis in the setting of acute liver injury. Worsening renal function. Patient has received 2.5 L normal saline the present time his blood pressure appears stable. Patient is currently denying abdominal pain. SUBJECTIVE: 07/11: Currently resting in bed and asking when he can go home. Creatinine is elevated 2.3. Will bolus with additional fluid. Echocardiogram results noted. 07/12: Negligible urine output overnight. Culver placed. Short of breath this morning. Not requiring pressors 07/13: Patient in respiratory distress tachypneic breathing 40 breaths/min. Intermittently desaturating to low 80s on nasal cannula. Very lethargic hardly protecting airway. Emergently intubated and placed on mechanical ventilation. Currently on Bumex infusion urine output improving. However BUN/creatinine was 49/4.53. Chest x-ray today shows extensive right-sided infiltrate. Chest x- ray on 07/12 shows extensive right-sided lower lobe infiltrate but was clear on 07/10/2018. Indicates probable aspiration pneumonia Objective Vital Signs / I&O: Vital Signs 07/12/18 07:45 07/12/18 08:00 07/12/18 08:07 Temperature 97.6 F Pulse Rate 102 H 104 H 103 H Respiratory Rate 33 H 38 H 40 H Blood Pressure 130/62 141/86 H Pulse Oximetry 98 94 L 93 L 07/12/18 08:15 07/12/18 08:30 07/12/18 08:45 Temperature Pulse Rate 106 H 102 H 106 H Respiratory Rate 43 H 36 H 38 H Blood Pressure 135/66 162/67 H 118/60 Pulse Oximetry 94 L 96 93 L 07/12/18 09:00 07/12/18 09:15 07/12/18 09:23 Temperature Pulse Rate 103 H 106 H 104 H Respiratory Rate 34 H 41 H 33 H Blood Pressure 138/65 136/76 Pulse Oximetry 97 92 L 95 07/12/18 09:30 07/12/18 09:45 07/12/18 10:00 Temperature Pulse Rate 103 H 104 H 110 H Respiratory Rate 34 H 30 H 39 H Blood Pressure 112/51 L 135/65 147/75 H Pulse Oximetry 95 96 95 07/12/18 10:15 07/12/18 10:30 07/12/18 10:45 Temperature Pulse Rate 104 H 103 H 103 H Respiratory Rate 36 H 34 H 38 H Blood Pressure 144/67 H 140/64 138/65 Pulse Oximetry 97 98 97 07/12/18 11:00 07/12/18 11:15 07/12/18 11:30 Temperature Pulse Rate 105 H 106 H 105 H Respiratory Rate 34 H 39 H 39 H Blood Pressure 135/64 131/66 135/63 Pulse Oximetry 96 98 93 L 07/12/18 11:45 07/12/18 12:00 07/12/18 12:15 Temperature 97.5 F L Pulse Rate 105 H 103 H 103 H Respiratory Rate 36 H 40 H 42 H Blood Pressure 128/60 155/69 H 150/70 H Pulse Oximetry 95 99 97 07/12/18 12:30 07/12/18 12:45 07/12/18 12:56 Temperature Pulse Rate 103 H 104 H 103 H Respiratory Rate 38 H 44 H 33 H Blood Pressure 145/64 H 152/65 H Pulse Oximetry 96 95 07/12/18 13:00 07/12/18 13:15 07/12/18 13:30 Temperature Pulse Rate 101 H 110 H 110 H Respiratory Rate 39 H 39 H 42 H Blood Pressure 135/70 125/55 L 133/85 Pulse Oximetry 100 94 L 93 L 07/12/18 13:45 07/12/18 14:00 07/12/18 14:15 Temperature Pulse Rate 108 H 110 H 112 H Respiratory Rate 35 H 38 H 50 H Blood Pressure 121/66 106/69 144/67 H Pulse Oximetry 96 94 L 90 L 07/12/18 14:30 07/12/18 14:45 07/12/18 15:00 Temperature Pulse Rate 108 H 106 H 105 H Respiratory Rate 37 H 34 H 34 H Blood Pressure 146/69 H 146/70 H 146/70 H Pulse Oximetry 93 L 94 L 95 07/12/18 15:15 07/12/18 15:30 07/12/18 15:45 Temperature Pulse Rate 103 H 109 H 104 H Respiratory Rate 33 H 45 H 41 H Blood Pressure 138/69 157/71 H 158/85 H Pulse Oximetry 96 91 L 95 07/12/18 16:00 07/12/18 16:15 07/12/18 16:30 Temperature 98.5 F Pulse Rate 103 H 102 H 100 H Respiratory Rate 40 H Blood Pressure 131/68 139/65 142/69 H Pulse Oximetry 93 L 97 98 07/12/18 16:45 07/12/18 17:00 07/12/18 17:15 Temperature Pulse Rate 102 H 106 H 107 H Respiratory Rate Blood Pressure 147/72 H 138/64 143/69 H Pulse Oximetry 97 92 L 94 L 07/12/18 17:22 07/12/18 17:30 07/12/18 17:45 Temperature Pulse Rate 107 H 112 H 107 H Respiratory Rate 41 H Blood Pressure 167/80 H 154/76 H Pulse Oximetry 92 L 95 07/12/18 18:00 07/12/18 18:15 07/12/18 18:30 Temperature Pulse Rate 104 H 106 H 105 H Respiratory Rate Blood Pressure 146/76 H 149/78 H 149/76 H Pulse Oximetry 100 94 L 97 07/12/18 18:45 07/12/18 19:00 07/12/18 19:15 Temperature Pulse Rate 107 H 108 H 105 H Respiratory Rate 40 H 38 H Blood Pressure 156/82 H 141/68 H 149/72 H Pulse Oximetry 98 94 L 97 07/12/18 19:30 07/12/18 19:45 07/12/18 19:56 Temperature Pulse Rate 104 H 106 H 104 H Respiratory Rate 40 H 40 H 36 H Blood Pressure 141/67 H 162/71 H Pulse Oximetry 96 96 97 07/12/18 20:00 07/12/18 20:07 07/12/18 20:15 Temperature 97.7 F Pulse Rate 103 H 106 H 111 H Respiratory Rate 40 H 40 H 40 H Blood Pressure 163/86 H 149/72 H Pulse Oximetry 100 98 95 07/12/18 20:30 07/12/18 20:45 07/12/18 21:00 Temperature Pulse Rate 110 H 108 H 110 H Respiratory Rate 40 H 40 H 38 H Blood Pressure 135/71 149/81 H 164/81 H Pulse Oximetry 93 L 95 93 L 07/12/18 21:15 07/12/18 21:30 07/12/18 21:45 Temperature Pulse Rate 107 H 108 H 107 H Respiratory Rate 40 H 36 H 36 H Blood Pressure 144/74 H 150/75 H 136/74 Pulse Oximetry 95 95 95 07/12/18 22:00 07/12/18 22:15 07/12/18 22:30 Temperature Pulse Rate 107 H 108 H 106 H Respiratory Rate 36 H 36 H 36 H Blood Pressure 129/65 119/71 137/80 Pulse Oximetry 96 94 L 93 L 07/12/18 22:45 07/12/18 23:00 07/12/18 23:07 Temperature Pulse Rate 106 H 105 H 106 H Respiratory Rate 36 H 34 H 34 H Blood Pressure 143/80 H 146/79 H Pulse Oximetry 95 95 07/12/18 23:15 07/12/18 23:30 07/12/18 23:45 Temperature Pulse Rate 105 H 112 H 111 H Respiratory Rate 34 H 34 H 34 H Blood Pressure 142/89 H 144/81 H 160/80 H Pulse Oximetry 99 94 L 92 L 07/13/18 00:00 07/13/18 00:15 07/13/18 00:30 Temperature 97.5 F L Pulse Rate 108 H 106 H 105 H Respiratory Rate 30 H 31 H 33 H Blood Pressure 153/77 H 148/70 H 143/69 H Pulse Oximetry 93 L 93 L 92 L 07/13/18 00:45 07/13/18 01:00 07/13/18 01:15 Temperature Pulse Rate 105 H 104 H 104 H Respiratory Rate 32 H 31 H 31 H Blood Pressure 145/72 H 147/70 H 150/73 H Pulse Oximetry 92 L 92 L 94 L 07/13/18 01:30 07/13/18 01:45 07/13/18 02:00 Temperature Pulse Rate 105 H 103 H 104 H Respiratory Rate 30 H 30 H 31 H Blood Pressure 154/81 H 150/82 H 157/81 H Pulse Oximetry 94 L 95 94 L 07/13/18 02:15 07/13/18 02:30 07/13/18 02:45 Temperature Pulse Rate 111 H 106 H 104 H Respiratory Rate 32 H 33 H 33 H Blood Pressure 146/80 H 146/74 H 149/76 H Pulse Oximetry 89 L 95 94 L 07/13/18 03:00 07/13/18 03:15 07/13/18 03:30 Temperature Pulse Rate 103 H 111 H 109 H Respiratory Rate 31 H 34 H 32 H Blood Pressure 156/81 H 147/79 H 147/80 H Pulse Oximetry 95 91 L 92 L 07/13/18 03:38 07/13/18 03:45 07/13/18 04:00 Temperature 97.8 F Pulse Rate 105 H 103 H 106 H Respiratory Rate 30 H 30 H 28 H Blood Pressure 151/82 H 141/71 H Pulse Oximetry 97 96 07/13/18 04:15 Temperature Pulse Rate 108 H Respiratory Rate 25 H Blood Pressure 147/73 H Pulse Oximetry 94 L Intake & Output 07/12/18 07/13/18 07/13/18 18:59 06:59 18:59 Intake Total 1800 / 1800 1550 / 1550 Output Total 225 / 225 175 / 175 Balance 1575 / 1575 1375 / 1375 Weight 79.2 kg Intake: IV 1800 / 1800 1550 / 1550 NS Inj 1,000 ML @ 30 mls/hr IV. 1000 / 1000 1000 / 1000 CONT .Q24H [facility] Rx#:[id number] Alburx 5% Inj 500 ML @ 250 mls/ 500 / 500 500 / 500 hr IV.SIG Q12H [facility] Rx#:[id number] Zosyn 2.25 GM Premix 50 ML @ 100 / 100 50 / 50 100 mls/hr IV.SIG Q8H [facility] Rx#: [id number] KCl 20 mEq Premix Inj 20 meq In 200 / 200 100 ml @ 50 mls/hr IV.SIG Q2H [facility] Rx#:[id number] Oral 0 / 0 Output: Urine Amount (Catheter) 225 / 225 175 / 175 Indwelling Urethral Catheter 225 / 225 175 / 175 Other: Date of Last Bowel Movement 07/10/18 07/10/18 # Bowel Movements 0 Result Diagrams: 07/13/18 04:58 07/13/18 04:58 Objective Remarks: GENERAL: 63-year-old male lying in bed tachypneic hypoxic in moderate to severe distress SKIN: Warm and dry. HEAD: Atraumatic. Normocephalic. EYES: Pupils equal and round 3 mm bilaterally and reactive. No scleral icterus. No injection or drainage. ENT: No nasal bleeding or discharge. Questionable airway protection NECK: Trachea midline. No JVD. CARDIOVASCULAR: Regular rate and rhythm. S1, S2 no S4 RESPIRATORY: tachypneic, using accessory muscles of breathing about 40 breaths/ min hypoxic. Extensive bilateral wheezes and crackles GASTROINTESTINAL: Abdomen soft, non-tender, nondistended. Hepatic and splenic margins not palpable. MUSCULOSKELETAL: Extremities without clubbing, cyanosis, or edema. Left upper extremity currently in splint wrapped in Armen bandage NEUROLOGICAL: Lethargic but wakes up to stimulation. No obvious cranial nerve deficits. Moves all extremities Assessment and Plan - Assessment and Plan Plan: Neuro/Psych: Acute metabolic encephalopathy EtOH abuse Recent cocaine/opiate abuse -inhaled. Denies intravenous Propofol for sedation and vent synchrony after intubation Hold CIWA protocol initiated with Lorazepam/haloperidol as needed MVI/ folate. Patient states he inhaled cocaine 4-5 days ago. Denies IV drug use. Discontinued acetaminophen and related products with elevated transaminases CV: Severe sepsis Lactic acidosis Elevated troponin likely demand ischemia Right carotid artery stenosis Elevated CPK Status post 2.5 L crystalloid resuscitation, currently also on maintenance fluid On Bumex infusion Lactates initially 2.2 currently 4.9 noted elevated transaminases difficulty clearing. Today 2.[address] chaudhry appreciated.. 2D echocardiogram revealed Normal left ventricular size. Wall thickness is normal. The left ventricular systolic function is normal with an estimated ejection fraction in the range of 55-60%. There is trace tricuspid valve regurgitation. The estimated pulmonary arterial pressure is 13 mmHg Not on aspirin or heparin at this time Troponin trending downward. 1.66. Currently 1.11. Followed by vascular surgery for right carotid artery stenosis 80%. Will need intervention when clinically stable. 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 PRVC/AC Bedside ultrasound shows large right pleural effusion, place pigtail right chest tube due to MRSA infection Vent bundle. Albuterol/ipratropium aerosols every 4 hours with albuterol aerosols every 2 hours as needed dyspnea Follow-up on chest x-ray and ABG Tobacco cessation will be encouraged GI: Elevated transaminases Elevated total bilirubin Poss acalc jody Hypoalbuminemia Noted CT abdomen/pelvis revealed possible early cholecystitis. Pericholecystic fluid. Ultrasound revealed negative Lundy sign. Nuclear medicine scan revealed no activity in the intrahepatic ductal compound bile duct or small bowel. Possibly opacified disease. CT angiogram of the abdomen/pelvis revealed 20-30% stenosis of the SMA. Patent MIC, celiac. Evaluated by gastroenterology. Hepatitis panel negative. Pending ceruloplasmin, BOBBY, AMA, ASMA, SSA AMB, anti-Ronquillo, RP, scleroderma, double-stranded DNA, hemochromatosis Currently on lactulose 30 cc 3 times daily for elevated ammonia. Recheck level in a.m. : Culver catheter if indicated for accurate I's and O's in a critical patient Severe renal failure and on Bumex drip Endo: Sliding scale insulin with Accu-Cheks to maintain euglycemia/every 6 hours low regimen TSH 1. Cortisol 25 Renal: Acute kidney failure Starting to make urine with Bumex drip BUN/creatinine worsening nephrology following urine eosinophils negative Monitor urine output Avoid nephrotoxic medication. Discontinued vancomycin 07/11 Heme: Macrocytic anemia Thrombocytopenia Coagulopathic state Follow-up on PT/INR/PTT and fibrinogen No indication for transfusion of blood products at this time ID: MRSA bacteremia Septic shock Right lower lobe pneumonia/aspiration 2D transthoracic echocardiogram revealed no signs of endocarditis. Infectious disease consultation initiated Day #3 vancomycin and piperacillin/tazobactam. Discontinued vancomycin 12/7. Currently on daptomycin day #2 Replete sputum cx after intubation Pleural fluid studies MSK: Left posterior olecranon fracture Followed by Dr. Blanco. Currently in splint immobilized. Follow-up in 2 weeks with x-rays CT left elbow today FEN: Replace electrolytes as clinically indicated Access -Utilize peripheral IV. Central line if indicated Prophylaxis -GI -pantoprazole -DVT-SCD/hold off chemical DVT prophylaxis due to severe thrombocytopenia Follow-up 45 minutes critical care time excluding procedures Patient is very critical intubated for worsening acute hypoxemic respiratory failure. There is evidence of aspiration. Continue daptomycin and Zosyn. Need right chest tube for possible parapneumonic effusion. Code Status: Full
--- NOTE | 2018-07-13 07:34 | P.PCN ---
Date of procedure: 07/13/18 Pre-op diagnosis: Acute hypoxemic respiratory failure Post-op diagnosis: same Procedure: PROCEDURE NOTE PROCEDURE: Endotracheal intubation INDICATION: Acute respiratory failure DETAILS OF PROCEDURE: The patient was placed in optimal position and preoxygenated with 100% FiO2 via [id number]. Oximeter oxygen saturation of 100% was obtained prior to laryngoscopy. The patient was administered etomidate 20 mg IV for sedation and rocuronium 50 mill grams IV. Laryngoscopy was performed with a 3 blade and a grade 2 view was obtained, On single attempt, a size 8.0 endotracheal tube was visualized passing through the cords. Correct placement was confirmed with colorimetric CO2 detector. Breath sounds were equal bilaterally. No sounds auscultated over the stomach. The endotracheal tube was secured with a commercial tube quigley at a depth of 24 cm at the lips. The patient was connected to the ventilator. The patient tolerated the procedure well without any apparent complication. Oxygen saturations were maintained greater than 95% at all times. Stat chest x-ray was ordered. Anesthesia: CHERRY Surgeon: Shamar Simpson Estimated blood loss (mL): 0 Pathology: other (sputum cx) Condition: critical Disposition: ICU
[2018-07-13] MEDS: Propofol 1000 mg/100 ml Inj 1,000 MG/100 ML BOTTLE IV.CONT PRN ×3 (07:45→20:18)
--- NOTE | 2018-07-13 08:05 | XR ---
EXAM DATE: 07/13/2018 7:53 AM EST AGE/SEX: 63 years / Male INDICATIONS: Shortness of breath. CLINICAL DATA: This is the patient's subsequent encounter. Patient reports that signs and symptoms h ave been present for 4 - 6 days and indicates a pain score of Nonresponsive. MEDICAL/SURGICAL HISTORY: None. None. COMPARISON: [facility] – [place], CHEST 1V SINGLE AP, 07/12/2018. . FINDINGS: Interval placement of an endotracheal tube is noted. The tip is approximately 2 cm above the dolly. Diffuse interstitial vascular congestion, airspace disease and bilateral effusions remain evident. CONCLUSION: Interval placement of endotracheal tube which is in appropriate position. Generalized interstitial vascular congestion with bilateral airspace disease and bilateral effusions most characteristic of congestive heart failure. Electronically signed by: Louie Yarbrough MD 07/13/2018 8:03 AM EST
--- NOTE | 2018-07-13 08:39 | P.PCN ---
Date of procedure: 07/13/18 Pre-op diagnosis: Large right pleural effusion, MRSA bacteremia Post-op diagnosis: same Procedure: Right pigtail chest tube placement, ultrasound-guided Details of procedure: Consent obtained. The patient was laid in supine position. The right lateral chest wall was cleaned with ChloraPrep twice. Regional sterile drapes were applied. 1% lidocaine was used for local anesthesia and injected into the subcutaneous and deep muscle tissues at the site marked by ultrasound (fifth intercostal space). A 0.25 cm skin incision was made with a scalpel blade. Insertion needle was placed angled superiorly and posteriorly and the insertion needle was entered into the pleural space superior to the rib and straw colored pleural fluid was obtained. Guidewire was placed and track was dilated. A size 10 Bengali chest tube was inserted into the pleural cavity using Seldinger technique with initial output of approximately 1100 mL of clear straw-colored pleural fluid, initially 1+ airleak. 3.0 silk was used to to secure the chest tube along with StayFix fixation device. The chest tube was connected to a Pleur -evac drainage system via vinyl connecting tube, -40 suction. Postprocedure chest x-ray is pending Anesthesia: local Surgeon: Shamar Simpson Estimated blood loss (mL): 1 Pathology: other (pl fluid studies) Condition: critical Disposition: ICU
[2018-07-13 08:55] LABS: ABG Base Excess 1.5 mmol/L (-2-2); ABG PCO2 45 mmHg (38-42); ABG PO2 248 mmHg (61-120)
--- NOTE | 2018-07-13 09:02 | XR ---
EXAM DATE: 07/13/2018 8:54 AM EST AGE/SEX: 63 years / Male INDICATIONS: Right sided chest tube placement CLINICAL DATA: This is the patient's subsequent encounter. Patient reports that signs and symptoms h ave been present for 4 - 6 days and indicates a pain score of 4/10. MEDICAL/SURGICAL HISTORY: None. None. COMPARISON: [facility] – [place], CHEST 1V SINGLE AP, 07/13/2018. . FINDINGS: Improved aeration and significant decrease in right basilar opacity has occurred following chest tube placement. There is persistent diffuse interstitial vascular congestion. Heart and mediastinal structures are stable. Endotracheal tube remains in good position. CONCLUSION: Improved aeration and decreased opacity in right lung base following chest tube placement. No evidence of pneumothorax. No other significant change. Electronically signed by: Louie Yarbrough MD 07/13/2018 9:01 AM EST
[2018-07-13] MEDS: Pantoprazole Inj 40 MG Vial IV.PUSH SCH (09:19)
[2018-07-13] MEDS: Mupirocin 2% Nasal Oint Topical Syringe EACH NARE SCH ×2 (09:20→20:19)
[2018-07-13] MEDS: Chlorhexidine 0.12% Oral Kit 15 ML UDC OROPHARYNG SCH ×2 (09:20→20:19)
[2018-07-13] MEDS: Bumetanide Inj 25 MG/100 ML BAG IV.CONT SCH (09:30)
[2018-07-13 09:59] LABS: Total Protein,Pleural Fluid 1.1 gm/dL
[2018-07-13 10:39] LABS: Lymphocytes,Pleural Fluid 39 %; Monocytes,Pleural Fluid 3 %; Neutrophils,Pleural Fluid 36 %
[2018-07-13 10:40] LABS: RBC,Pleural Fluid 2357 /mm3 (0-0)
[2018-07-13] MEDS: DAPTOmycin Inj 400 MG in Sodium Chlor 0.9% Inj 100 ML IV.SIG SCH (11:17)
[2018-07-13 11:29] LABS: Dimorphic RBC Present; Platelet Morphology Normal (Normal); Target Cells 1+
[2018-07-13] MEDS: Sod Chloride 0.9% Inj 1,000 ML IV.CONT SCH (11:54)
[2018-07-13] MEDS: Oral Hygiene Kit OROPHARYNG SCH ×3 (11:54→23:28)
--- NOTE | 2018-07-13 14:23 | P.PNNP ---
Subjective Interval history: Patient has chest tube on the right side 1 L of fluid removed and he is on ventilator FiO2 30%, urine output increased with Bumex drip Physical Exam Vital signs: Vital Signs 07/12/18 14:30 07/12/18 14:45 07/12/18 15:00 Temperature Pulse Rate 108 H 106 H 105 H Respiratory Rate 37 H 34 H 34 H Blood Pressure 146/69 H 146/70 H 146/70 H Pulse Oximetry 93 L 94 L 95 07/12/18 15:15 07/12/18 15:30 07/12/18 15:45 Temperature Pulse Rate 103 H 109 H 104 H Respiratory Rate 33 H 45 H 41 H Blood Pressure 138/69 157/71 H 158/85 H Pulse Oximetry 96 91 L 95 07/12/18 16:00 07/12/18 16:15 07/12/18 16:30 Temperature 98.5 F Pulse Rate 103 H 102 H 100 H Respiratory Rate 40 H Blood Pressure 131/68 139/65 142/69 H Pulse Oximetry 93 L 97 98 07/12/18 16:45 07/12/18 17:00 07/12/18 17:15 Temperature Pulse Rate 102 H 106 H 107 H Respiratory Rate Blood Pressure 147/72 H 138/64 143/69 H Pulse Oximetry 97 92 L 94 L 07/12/18 17:22 07/12/18 17:30 07/12/18 17:45 Temperature Pulse Rate 107 H 112 H 107 H Respiratory Rate 41 H Blood Pressure 167/80 H 154/76 H Pulse Oximetry 92 L 95 07/12/18 18:00 07/12/18 18:15 07/12/18 18:30 Temperature Pulse Rate 104 H 106 H 105 H Respiratory Rate Blood Pressure 146/76 H 149/78 H 149/76 H Pulse Oximetry 100 94 L 97 07/12/18 18:45 07/12/18 19:00 07/12/18 19:15 Temperature Pulse Rate 107 H 108 H 105 H Respiratory Rate 40 H 38 H Blood Pressure 156/82 H 141/68 H 149/72 H Pulse Oximetry 98 94 L 97 07/12/18 19:30 07/12/18 19:45 07/12/18 19:56 Temperature Pulse Rate 104 H 106 H 104 H Respiratory Rate 40 H 40 H 36 H Blood Pressure 141/67 H 162/71 H Pulse Oximetry 96 96 97 07/12/18 20:00 07/12/18 20:07 07/12/18 20:15 Temperature 97.7 F Pulse Rate 103 H 106 H 111 H Respiratory Rate 40 H 40 H 40 H Blood Pressure 163/86 H 149/72 H Pulse Oximetry 100 98 95 07/12/18 20:30 07/12/18 20:45 07/12/18 21:00 Temperature Pulse Rate 110 H 108 H 110 H Respiratory Rate 40 H 40 H 38 H Blood Pressure 135/71 149/81 H 164/81 H Pulse Oximetry 93 L 95 93 L 07/12/18 21:15 07/12/18 21:30 07/12/18 21:45 Temperature Pulse Rate 107 H 108 H 107 H Respiratory Rate 40 H 36 H 36 H Blood Pressure 144/74 H 150/75 H 136/74 Pulse Oximetry 95 95 95 07/12/18 22:00 07/12/18 22:15 07/12/18 22:30 Temperature Pulse Rate 107 H 108 H 106 H Respiratory Rate 36 H 36 H 36 H Blood Pressure 129/65 119/71 137/80 Pulse Oximetry 96 94 L 93 L 07/12/18 22:45 07/12/18 23:00 07/12/18 23:07 Temperature Pulse Rate 106 H 105 H 106 H Respiratory Rate 36 H 34 H 34 H Blood Pressure 143/80 H 146/79 H Pulse Oximetry 95 95 07/12/18 23:15 07/12/18 23:30 07/12/18 23:45 Temperature Pulse Rate 105 H 112 H 111 H Respiratory Rate 34 H 34 H 34 H Blood Pressure 142/89 H 144/81 H 160/80 H Pulse Oximetry 99 94 L 92 L 07/13/18 00:00 07/13/18 00:15 07/13/18 00:30 Temperature 97.5 F L Pulse Rate 108 H 106 H 105 H Respiratory Rate 30 H 31 H 33 H Blood Pressure 153/77 H 148/70 H 143/69 H Pulse Oximetry 93 L 93 L 92 L 07/13/18 00:45 07/13/18 01:00 07/13/18 01:15 Temperature Pulse Rate 105 H 104 H 104 H Respiratory Rate 32 H 31 H 31 H Blood Pressure 145/72 H 147/70 H 150/73 H Pulse Oximetry 92 L 92 L 94 L 07/13/18 01:30 07/13/18 01:45 07/13/18 02:00 Temperature Pulse Rate 105 H 103 H 104 H Respiratory Rate 30 H 30 H 31 H Blood Pressure 154/81 H 150/82 H 157/81 H Pulse Oximetry 94 L 95 94 L 07/13/18 02:15 07/13/18 02:30 07/13/18 02:45 Temperature Pulse Rate 111 H 106 H 104 H Respiratory Rate 32 H 33 H 33 H Blood Pressure 146/80 H 146/74 H 149/76 H Pulse Oximetry 89 L 95 94 L 07/13/18 03:00 07/13/18 03:15 07/13/18 03:30 Temperature Pulse Rate 103 H 111 H 109 H Respiratory Rate 31 H 34 H 32 H Blood Pressure 156/81 H 147/79 H 147/80 H Pulse Oximetry 95 91 L 92 L 07/13/18 03:38 07/13/18 03:45 07/13/18 04:00 Temperature 97.8 F Pulse Rate 105 H 103 H 106 H Respiratory Rate 30 H 30 H 28 H Blood Pressure 151/82 H 141/71 H Pulse Oximetry 97 96 07/13/18 04:15 07/13/18 06:00 07/13/18 06:15 Temperature Pulse Rate 108 H 103 H 104 H Respiratory Rate 25 H 23 23 Blood Pressure 147/73 H 170/85 H 167/85 H Pulse Oximetry 94 L 93 L 92 L 07/13/18 06:30 07/13/18 06:45 07/13/18 07:00 Temperature Pulse Rate 106 H 109 H 100 H Respiratory Rate 22 38 H 25 H Blood Pressure 168/89 H 169/87 H 166/92 H Pulse Oximetry 93 L 88 L 97 07/13/18 07:15 07/13/18 07:30 07/13/18 07:38 Temperature Pulse Rate 98 H 102 H Respiratory Rate 22 12 16 Blood Pressure 167/90 H 149/77 H Pulse Oximetry 98 95 97 07/13/18 07:42 07/13/18 07:45 07/13/18 08:00 Temperature 97.7 F Pulse Rate 101 H 99 H 99 H Respiratory Rate 16 16 16 Blood Pressure 146/74 H 151/76 H Pulse Oximetry 98 99 07/13/18 08:15 07/13/18 08:30 07/13/18 08:45 Temperature Pulse Rate 105 H 101 H 99 H Respiratory Rate 16 16 16 Blood Pressure 184/88 H 165/74 H 178/77 H Pulse Oximetry 98 100 100 07/13/18 09:00 07/13/18 09:15 07/13/18 09:30 Temperature Pulse Rate 97 H 99 H 98 H Respiratory Rate 16 16 16 Blood Pressure 173/77 H 165/81 H 162/77 H Pulse Oximetry 100 95 95 07/13/18 09:45 07/13/18 10:00 07/13/18 10:15 Temperature Pulse Rate 97 H 96 H 96 H Respiratory Rate 16 16 16 Blood Pressure 166/79 H 160/76 H 162/74 H Pulse Oximetry 95 95 95 07/13/18 10:30 07/13/18 10:45 07/13/18 11:00 Temperature Pulse Rate 96 H 96 H 95 H Respiratory Rate 16 16 16 Blood Pressure 160/75 H 161/77 H 158/78 H Pulse Oximetry 95 95 96 07/13/18 11:15 07/13/18 11:30 07/13/18 11:45 Temperature Pulse Rate 95 H 95 H 94 H Respiratory Rate 16 16 16 Blood Pressure 148/73 H 154/77 H 154/77 H Pulse Oximetry 95 96 96 07/13/18 12:00 07/13/18 12:38 Temperature 97.9 F Pulse Rate 94 H 93 H Respiratory Rate 16 16 Blood Pressure 159/79 H Pulse Oximetry 96 Intake & Output 07/12/18 07/13/18 07/13/18 18:59 06:59 18:59 Intake Total 1800 / 1800 1550 / 1550 350 / 350 Output Total 225 / 225 175 / 175 Balance 1575 / 1575 1375 / 1375 350 / 350 Weight 79.2 kg Intake: IV 1800 / 1800 1550 / 1550 350 / 350 Bumex Inj 25 mg In 100 ml @ 1 100 / 100 MG/HR 4 mls/hr IV.CONT .Q24H [place] Rx#:[id number] Diprivan 1000 mg/100 ml Inj 1, 100 / 100 000 mg In 100 ml @ 5 MCG/KG/MIN 2.376 mls/hr IV.CONT TITRATE PRN Rx#:[id number] NS Inj 1,000 ML @ 30 mls/hr IV. 1000 / 1000 1000 / 1000 CONT .Q24H [facility] Rx#:[id number] Alburx 5% Inj 500 ML @ 250 mls/ 500 / 500 500 / 500 hr IV.SIG Q12H [place] Rx#:[id number] Cubicin Inj 400 MG In NS Inj 100 / 100 100 ML @ 200 mls/hr IV.SIG Q48H [place] Rx#:[id number] Zosyn 2.25 GM Premix 50 ML @ 100 / 100 50 / 50 50 / 50 100 mls/hr IV.SIG Q8H [place] Rx#: [id number] KCl 20 mEq Premix Inj 20 meq In 200 / 200 100 ml @ 50 mls/hr IV.SIG Q2H [facility] Rx#:[id number] Oral 0 / 0 Output: Urine Amount (Catheter) 225 / 225 175 / 175 Indwelling Urethral Catheter 225 / 225 175 / 175 Other: Date of Last Bowel Movement 07/10/18 07/10/18 07/10/18 # Bowel Movements 0 Narrative: GENERAL: Lethargic intubated. SKIN: Warm and dry. NECK: Supple, trachea midline. No JVD. CARDIOVASCULAR: Regular rate and rhythm without murmurs, gallops, or rubs. RESPIRATORY: Breath sounds equal right-sided chest tube GASTROINTESTINAL: Abdomen soft, non-tender, nondistended. MUSCULOSKELETAL: No cyanosis, 1+ edema. . - Urinary Catheter Management Indwelling Urethral Catheter Cath placed during this visit: yes Reason for continuing: Hourly intake/output Insertion date: 07/12/18 Insertion time: 07:45 Assessment and Plan - Assessment (1) Acute kidney injury Code(s): N17.9 - Acute kidney failure, unspecified Status: Acute Plan: Acute kidney injury with possible need for cardiac cath and carotid endarterectomy. No previous history of chronic kidney disease. Creatinine at 2.31, Non oliguric Creatinine started to increase on the 6th NEERU possible ATN from sepsis or contrast Nephropathy. Creatinine started to increase about 48 hours after receiving contrast. Also possibility of AIN with vancomycin use however random level not elevated. Urine EOS negative. CT of abdomen shows kidney with in normal limits. Recommend continue with albumin/Bumex drip his creatinine is higher however urine output improved, he has chest tube inserted on the right side if he does not respond may need dialysis he does have ATN also received vancomycin Dr. Rivas to follow
--- NOTE | 2018-07-13 16:42 | P.PNID ---
Subjective Remarks: DEYANIRA Simms for Patient is a 63-year-old male, presented to the hospital complaining of pain and swelling on his left elbow. He stated that he fell about a week ago but did not seek any treatment for his left elbow. He presented to the ED, and he was found to have a fracture of the olecranon on the left side. Patient also since admission has complained of some abdominal pain. He has known history of significant alcohol abuse. Imaging studies of the abdomen showed hepatic steatosis, pericholecystic fluid with no ductal dilatation. Ultrasound showed pericholecystic fluid with negative Lundy sign. He had a HIDA scan which showed no activity which could most likely be due to his liver disease. Patient also had a CTA as part of evaluation for his abdominal pain. That is okay. There were 2 blood cultures done in the ED, and they are now reported as growing MRSA. Patient has had some low-grade temps. Overnight he had persistent hypotension, and he was transferred to the ICU. Patient currently is on pressors. He is afebrile. He is still complaining of abdominal pain. He states he has chronic back pain which has not changed. He denies any shortness of breath. On this admission he was also found to have 80% right carotid artery stenosis, and vascular is following the patient. Echocardiograms not showing any obvious vegetation. His WBC is mildly elevated. He has an elevated lactic acid. His platelet count is low, fibrinogen is normal. Infectious disease consultation has been requested to assist with evaluation and treatment of his bacteremia. Overnight events reviewed. Temps ok was intubated due to AMS. CXR worse on right side. s/P thoracentesis high Cr Urine for eos negative Antibiotics: Zosyn Vanco - on hold Lines: Line sites with no e.o infection Past Medical History: Tobacco and ETOH abuse Drug screen (+) cocaine (denies IVDU), admits to smoking Allergies/Adverse Reactions: Allergies No Known Allergies Allergy (Verified 07/08/18 12:30) Objective Vital Signs 07/12/18 16:45 07/12/18 17:00 07/12/18 17:15 Temperature Pulse Rate 102 H 106 H 107 H Respiratory Rate Blood Pressure 147/72 H 138/64 143/69 H Pulse Oximetry 97 92 L 94 L 07/12/18 17:22 07/12/18 17:30 07/12/18 17:45 Temperature Pulse Rate 107 H 112 H 107 H Respiratory Rate 41 H Blood Pressure 167/80 H 154/76 H Pulse Oximetry 92 L 95 07/12/18 18:00 07/12/18 18:15 07/12/18 18:30 Temperature Pulse Rate 104 H 106 H 105 H Respiratory Rate Blood Pressure 146/76 H 149/78 H 149/76 H Pulse Oximetry 100 94 L 97 07/12/18 18:45 07/12/18 19:00 07/12/18 19:15 Temperature Pulse Rate 107 H 108 H 105 H Respiratory Rate 40 H 38 H Blood Pressure 156/82 H 141/68 H 149/72 H Pulse Oximetry 98 94 L 97 07/12/18 19:30 07/12/18 19:45 07/12/18 19:56 Temperature Pulse Rate 104 H 106 H 104 H Respiratory Rate 40 H 40 H 36 H Blood Pressure 141/67 H 162/71 H Pulse Oximetry 96 96 97 07/12/18 20:00 07/12/18 20:07 07/12/18 20:15 Temperature 97.7 F Pulse Rate 103 H 106 H 111 H Respiratory Rate 40 H 40 H 40 H Blood Pressure 163/86 H 149/72 H Pulse Oximetry 100 98 95 07/12/18 20:30 07/12/18 20:45 07/12/18 21:00 Temperature Pulse Rate 110 H 108 H 110 H Respiratory Rate 40 H 40 H 38 H Blood Pressure 135/71 149/81 H 164/81 H Pulse Oximetry 93 L 95 93 L 07/12/18 21:15 07/12/18 21:30 07/12/18 21:45 Temperature Pulse Rate 107 H 108 H 107 H Respiratory Rate 40 H 36 H 36 H Blood Pressure 144/74 H 150/75 H 136/74 Pulse Oximetry 95 95 95 07/12/18 22:00 07/12/18 22:15 07/12/18 22:30 Temperature Pulse Rate 107 H 108 H 106 H Respiratory Rate 36 H 36 H 36 H Blood Pressure 129/65 119/71 137/80 Pulse Oximetry 96 94 L 93 L 07/12/18 22:45 07/12/18 23:00 07/12/18 23:07 Temperature Pulse Rate 106 H 105 H 106 H Respiratory Rate 36 H 34 H 34 H Blood Pressure 143/80 H 146/79 H Pulse Oximetry 95 95 07/12/18 23:15 07/12/18 23:30 07/12/18 23:45 Temperature Pulse Rate 105 H 112 H 111 H Respiratory Rate 34 H 34 H 34 H Blood Pressure 142/89 H 144/81 H 160/80 H Pulse Oximetry 99 94 L 92 L 07/13/18 00:00 07/13/18 00:15 07/13/18 00:30 Temperature 97.5 F L Pulse Rate 108 H 106 H 105 H Respiratory Rate 30 H 31 H 33 H Blood Pressure 153/77 H 148/70 H 143/69 H Pulse Oximetry 93 L 93 L 92 L 07/13/18 00:45 07/13/18 01:00 07/13/18 01:15 Temperature Pulse Rate 105 H 104 H 104 H Respiratory Rate 32 H 31 H 31 H Blood Pressure 145/72 H 147/70 H 150/73 H Pulse Oximetry 92 L 92 L 94 L 07/13/18 01:30 07/13/18 01:45 07/13/18 02:00 Temperature Pulse Rate 105 H 103 H 104 H Respiratory Rate 30 H 30 H 31 H Blood Pressure 154/81 H 150/82 H 157/81 H Pulse Oximetry 94 L 95 94 L 07/13/18 02:15 07/13/18 02:30 07/13/18 02:45 Temperature Pulse Rate 111 H 106 H 104 H Respiratory Rate 32 H 33 H 33 H Blood Pressure 146/80 H 146/74 H 149/76 H Pulse Oximetry 89 L 95 94 L 07/13/18 03:00 07/13/18 03:15 07/13/18 03:30 Temperature Pulse Rate 103 H 111 H 109 H Respiratory Rate 31 H 34 H 32 H Blood Pressure 156/81 H 147/79 H 147/80 H Pulse Oximetry 95 91 L 92 L 07/13/18 03:38 07/13/18 03:45 07/13/18 04:00 Temperature 97.8 F Pulse Rate 105 H 103 H 106 H Respiratory Rate 30 H 30 H 28 H Blood Pressure 151/82 H 141/71 H Pulse Oximetry 97 96 07/13/18 04:15 07/13/18 06:00 07/13/18 06:15 Temperature Pulse Rate 108 H 103 H 104 H Respiratory Rate 25 H 23 23 Blood Pressure 147/73 H 170/85 H 167/85 H Pulse Oximetry 94 L 93 L 92 L 07/13/18 06:30 07/13/18 06:45 07/13/18 07:00 Temperature Pulse Rate 106 H 109 H 100 H Respiratory Rate 22 38 H 25 H Blood Pressure 168/89 H 169/87 H 166/92 H Pulse Oximetry 93 L 88 L 97 07/13/18 07:15 07/13/18 07:30 07/13/18 07:38 Temperature Pulse Rate 98 H 102 H Respiratory Rate 22 12 16 Blood Pressure 167/90 H 149/77 H Pulse Oximetry 98 95 97 07/13/18 07:42 07/13/18 07:45 07/13/18 08:00 Temperature 97.7 F Pulse Rate 101 H 99 H 99 H Respiratory Rate 16 16 16 Blood Pressure 146/74 H 151/76 H Pulse Oximetry 98 99 07/13/18 08:15 07/13/18 08:30 07/13/18 08:45 Temperature Pulse Rate 105 H 101 H 99 H Respiratory Rate 16 16 16 Blood Pressure 184/88 H 165/74 H 178/77 H Pulse Oximetry 98 100 100 07/13/18 09:00 07/13/18 09:15 07/13/18 09:30 Temperature Pulse Rate 97 H 99 H 98 H Respiratory Rate 16 16 16 Blood Pressure 173/77 H 165/81 H 162/77 H Pulse Oximetry 100 95 95 07/13/18 09:45 07/13/18 10:00 07/13/18 10:15 Temperature Pulse Rate 97 H 96 H 96 H Respiratory Rate 16 16 16 Blood Pressure 166/79 H 160/76 H 162/74 H Pulse Oximetry 95 95 95 07/13/18 10:30 07/13/18 10:45 07/13/18 11:00 Temperature Pulse Rate 96 H 96 H 95 H Respiratory Rate 16 16 16 Blood Pressure 160/75 H 161/77 H 158/78 H Pulse Oximetry 95 95 96 07/13/18 11:15 07/13/18 11:30 07/13/18 11:45 Temperature Pulse Rate 95 H 95 H 94 H Respiratory Rate 16 16 16 Blood Pressure 148/73 H 154/77 H 154/77 H Pulse Oximetry 95 96 96 07/13/18 12:00 07/13/18 12:38 Temperature 97.9 F Pulse Rate 94 H 93 H Respiratory Rate 16 16 Blood Pressure 159/79 H Pulse Oximetry 96 Intake & Output 07/12/18 07/13/18 07/13/18 18:59 06:59 18:59 Intake Total 1800 / 1800 1550 / 1550 350 / 350 Output Total 225 / 225 175 / 175 Balance 1575 / 1575 1375 / 1375 350 / 350 Weight 79.2 kg Intake: IV 1800 / 1800 1550 / 1550 350 / 350 Bumex Inj 25 mg In 100 ml @ 1 100 / 100 MG/HR 4 mls/hr IV.CONT .Q24H [facility] Rx#:[id number] Diprivan 1000 mg/100 ml Inj 1, 100 / 100 000 mg In 100 ml @ 5 MCG/KG/MIN 2.376 mls/hr IV.CONT TITRATE PRN Rx#:[id number] NS Inj 1,000 ML @ 30 mls/hr IV. 1000 / 1000 1000 / 1000 CONT .Q24H [facility] Rx#:[id number] Alburx 5% Inj 500 ML @ 250 mls/ 500 / 500 500 / 500 hr IV.SIG Q12H [facility] Rx#:[id number] Cubicin Inj 400 MG In NS Inj 100 / 100 100 ML @ 200 mls/hr IV.SIG Q48H [facility] Rx#:[id number] Zosyn 2.25 GM Premix 50 ML @ 100 / 100 50 / 50 50 / 50 100 mls/hr IV.SIG Q8H [facility] Rx#: [id number] KCl 20 mEq Premix Inj 20 meq In 200 / 200 100 ml @ 50 mls/hr IV.SIG Q2H [facility] Rx#:[id number] Oral 0 / 0 Output: Urine Amount (Catheter) 225 / 225 175 / 175 Indwelling Urethral Catheter 225 / 225 175 / 175 Other: Date of Last Bowel Movement 07/10/18 07/10/18 07/10/18 # Bowel Movements 0 07/10/18 11:15 Blood - Peripheral Aerobic Blood Culture - Preliminary No growth in 3 days 07/10/18 11:15 Blood - Peripheral Anaerobic Blood Culture - Preliminary No growth in 3 days 07/10/18 11:20 Blood - Peripheral Aerobic Blood Culture - Preliminary No growth in 3 days 07/10/18 11:20 Blood - Peripheral Anaerobic Blood Culture - Preliminary No growth in 3 days 07/13/18 07:35 Sputum - Endotracheal Gram Stain - Pending 07/13/18 07:35 Sputum - Endotracheal Sputum Culture - Pending 07/13/18 08:55 Fluid - Pleural fluid Fungal Smear - Pending 07/13/18 08:55 Fluid - Pleural fluid Fungal Culture - Pending 07/13/18 08:55 Fluid - Pleural fluid Gram Stain - Pending 07/13/18 08:55 Fluid - Pleural fluid Body Fluid Culture - Pending 07/13/18 08:55 Fluid - Pleural fluid Acid Fast Bacilli Smear - Pending 07/13/18 08:55 Fluid - Pleural fluid Mycobacterial Culture - Pending 07/10/18 22:30 Clean Catch Urine Urine Culture - Final No growth in 48 hours 07/08/18 19:30 Blood - Peripheral Aerobic Blood Culture - Final S. aureus MRSA 07/08/18 19:30 Blood - Peripheral Anaerobic Blood Culture - Final S. aureus MRSA 07/08/18 19:35 Blood - Peripheral Aerobic Blood Culture - Final S. aureus MRSA 07/08/18 19:35 Blood - Peripheral Anaerobic Blood Culture - Preliminary Staphylococcus coag negative 07/10/18 12:49 Stool Stool Occult Blood ([facility]) - Pending Lab - Hematology Results 07/12/18 07/13/18 04:35 04:58 WBC 5.9 7.2 RBC 2.95 L 2.97 L Hgb 10.0 L 10.0 L Hct 28.7 L 28.9 L MCV 97.2 97.3 MCH 33.8 33.6 MCHC 34.7 34.6 RDW 13.4 13.6 Plt Count 32 L 39 L MPV 9.8 10.7 Prelim Diff (Auto) Slide review pending Slide review pending Neut % (Auto) 75.6 H 74.4 H Lymph % (Auto) 10.5 8.6 L Lares % (Auto) 13.3 H 15.6 H Eos % (Auto) 0.3 1.0 Baso % (Auto) 0.3 0.4 Neut # (Auto) 4.5 5.4 Lymph # (Auto) 0.6 L 0.6 L Lares # (Auto) 0.8 1.1 H Eos # (Auto) 0.0 0.1 Baso # (Auto) 0.0 0.0 WBC Differential . . Diff Scan Auto diff confirmed Auto diff confirmed Differential Comment . . Platelet Estimate Low L Low L Platelet Morphology Normal Normal RBC Morphology Normal Dimorphic RBCs Present H Target Cells 1+ H Lab - Chemistry Results 07/09/18 07/10/18 07/11/18 20:17 19:40 16:47 Sodium Potassium 3.1 L Chloride Carbon Dioxide Anion Gap BUN Creatinine Estimated GFR Random Glucose Lactic Acid Calcium Calcium Adj for Albumin Phosphorus Magnesium Total Bilirubin AST ALT Alkaline Phosphatase Ammonia Total Creatine Kinase Total Protein Albumin [id number] 215 H Ceruloplasmin 24 Lipase 07/11/18 07/12/18 07/12/18 16:47 04:35 04:35 Sodium 137 Potassium 3.3 L Chloride 100 Carbon Dioxide 27.7 Anion Gap 9 BUN 34 H Creatinine 3.34 H Estimated GFR 19 L Random Glucose 129 H Lactic Acid 6.0 H* 2.6 H Calcium 7.0 L* Calcium Adj for Albumin 8.3 L Phosphorus 3.1 Magnesium 2.2 Total Bilirubin 4.9 H AST 1047 H ALT 1219 H Alkaline Phosphatase 72 Ammonia Total Creatine Kinase 143 Total Protein 5.7 L Albumin 2.4 L [id number] Ceruloplasmin Lipase 338 07/12/18 07/13/18 04:35 04:58 Sodium 139 Potassium 3.5 Chloride 102 Carbon Dioxide 27.2 Anion Gap 10 BUN 49 H Creatinine 4.53 H Estimated GFR 13 L Random Glucose 122 H Lactic Acid Calcium 7.7 L Calcium Adj for Albumin Phosphorus 4.1 D Magnesium Total Bilirubin AST ALT Alkaline Phosphatase Ammonia 29 Total Creatine Kinase Total Protein Albumin 3.0 L D [id number] Ceruloplasmin Lipase Imaging: ITS Impressions Head CT 07/08/18 17:06 CONCLUSION: 1. No acute intracranial abnormality. 2. Mild Atrophy. . Elbow X-Ray 07/08/18 18:01 CONCLUSION: 1. Small, mildly displaced olecranon avulsion fracture fragments of the triceps insertion with associated soft tissue swelling. 2. Joint effusion. No perceptible intra-articular fracture. No subluxation. Abdomen/Pelvis CT 07/08/18 18:02 CONCLUSION: 1. Severe fatty infiltration of the liver. 2. Apparent pericholecystic fluid. Also fairly robust enhancement of the gallbladder mucosa. Please correlate clinically for any evidence of cholecystitis. No stones or ductal dilatation demonstrated. Gallbladder Ultrasound 07/08/18 18:53 CONCLUSION: 1. Small, nonspecific pericholecystic fluid without stones, wall thickening or sonographic Lundy's sign. The fluid may be on the basis of hepatocellular disease. The ultrasound does not support acute cholecystitis. 2. Fatty infiltrated and mildly enlarged liver. Carotid Doppler Study 07/09/18 00:00 CONCLUSION: 1. Right Internal Carotid Artery: Findings indicate >70% stenosis, but less than near occlusion. 2. Left Internal Carotid Artery: Findings indicate <50% stenosis. Hepatobiliary Scan Nuclear Medicine 07/09/18 14:22 CONCLUSION: 1. No activity in intrahepatic ducts, common duct or small bowel. Considerations include include acute obstruction of the common duct and diffuse hepatocellular disease. 2. CT scan shows no dilatation of the common duct or intrahepatic ducts. Diffuse hepatocellular disease is suspected. Neck CTA 07/10/18 00:00 CONCLUSION: 1. 80% stenosis of the proximal right ICA. Left carotid and bilateral vertebral arteries are patent. 2. Emphysematous changes. Abdomen/Pelvis CTA 07/10/18 00:08 CONCLUSION: 1. 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 The SMA and MIC are patent. 2. Hepatic steatosis. 3. Emphysematous changes. Abdomen/Bladder Ultrasound 07/11/18 00:00 CONCLUSION: 1. Normal ultrasound appearance of the kidneys. 2. Other findings include hepatic steatosis and left pleural effusion. Elbow CT 07/11/18 00:00 CONCLUSION: 1. Small fracture fragment off the olecranon. 2. There is subcutaneous edema identified posterior to the elbow with soft tissue swelling. Chest X-Ray 07/13/18 08:32 CONCLUSION: Improved aeration and decreased opacity in right lung base following chest tube placement. No evidence of pneumothorax. No other significant change. Physical Exam: GENERAL: Patient is a well-nourished, well-developed male. SKIN: Cool and dry. No generalized rash, no ecchymoses. Has healing abrasions in his UE. No evidence of embolic lesions. HEAD: Atraumatic. Normocephalic. No temporal wasting, or tenderness. EYES: Muir conjunctiva. No petechia or hemorrhage. Pupils equal, round and reactive to light. Extraocular movements full and intact. No scleral icterus. No injection or drainage. ENT: Intubated CARDIOVASCULAR: Regular rate and rhythm. RESPIRATORY: Clear to auscultation. Breath sounds equal bilaterally. ABDOMEN: Soft, Mildly distended, tender diffusely, no guarding or rebound. Bowel sounds present and normoactive. EXTREMITIES: No clubbing, cyanosis, or edema. Has posterior splint in his whole LUE NEUROLOGICAL: Pupils unequal left > right. PSYCHIATRIC: Normal affect, calm and cooperative. LINE: No evidence of infection Assessment and Plan - Plan Impression MRSA sepsis ? olecranon trauma as entry point for MRSA MRSA bacteremia, ? endocarditis Shock, resolved Known ETOH abuse and tobacco abuse Denies IVDU, admits to smoking cocaine ETOH liver disease Elevated LFT Thrombocytopenia Acute renal failure: sepsis, contrast, meds. Recommendation continue Cubicin for now for MRSA bacteremia dw currently no MRSA pneumonia coverage as Dapto has surfactant effect. if no bleed on repeat CT ok to give Zyvox overnight edwin if worsening sepsis. Continue Zosyn ? aspiration prior to intubation. Cardiac cath cancelled due to ARF. Follow C/S Follow temps Monitor progress to resume care in am,
--- NOTE | 2018-07-13 16:56 | CT ---
EXAM DATE: 07/13/2018 4:52 PM EST AGE/SEX: 63 years / Male INDICATIONS: Altered mental status and unequal pupils today. CLINICAL DATA: This is the patient's initial encounter. Patient reports that signs and symptoms have been present for 1 day and indicates a pain score of Nonresponsive. MEDICAL/SURGICAL HISTORY: Non-responsive. Non-responsive. RADIATION DOSE: 64.63 CTDI (mGy) COMPARISON: [facility] – [place] HEAD W/O CONTRAST, 07/08/2018. . TECHNIQUE: CT of the head without contrast. Using automated exposure control and adjustment of the mA and/or kV according to patient size, radiation dose was kept as low as reasonably achievable to ob tain optimal diagnostic quality images. DICOM format image data is available electronically for revi ew and comparison. FINDINGS: Cerebrum: The ventricles and cortical sulci are widened. No evidence of midline shift, mass lesion , hemorrhage or acute infarction. No extraaxial fluid collections are seen. Posterior Fossa: The cerebellum and brainstem are intact. The 4th ventricle is midline. The cerebe llopontine angle is unremarkable. Extracranial: The visualized portion of the orbits is intact. There is a metallic density seen at th e anterior right maxilla presumably from prior surgical repair. There appears to be chronic deformity at the nasal bones being deviated towards the right. This appearance is unchanged from the prior exa m. There is mucosal thickening at the left maxillary sinus. The patient is intubated. Skull: The calvaria is intact. No evidence of skull fracture. CONCLUSION: 1. No acute intracranial abnormality. 2. Atrophy. . Electronically signed by: Calvin Apple MD 07/13/2018 4:55 PM EST
[2018-07-14] MEDS: Piperacil/Tazo 2.25 GM Premix 50 ML IV.SIG SCH ×3 (02:07→19:21)
[2018-07-14] MEDS: Albumin Human 5% Inj 500 ML IV.SIG SCH ×2 (02:07→14:48)
[2018-07-14] MEDS: hydrALAZINE HCl Inj 20 MG/ML Vial IV.PUSH PRN ×2 (02:07→21:17)
[2018-07-14] MEDS: Oral Hygiene Kit OROPHARYNG SCH ×4 (04:16→23:53)
[2018-07-14 05:44] LABS: Hematocrit 27.2 % (39.0-51.0); Hemoglobin 9.6 gm/dL (13.0-17.0); Mean Corpuscular HGB Conc 35.4 % (32.0-36.0); Mean Corpuscular Hemoglobin 34.1 pg (27.0-34.0); Mean Corpuscular Volume 96.3 fL (80.0-100.0); Mean Platelet Volume 11.1 fL (7.0-11.0); Platelet Count 45 th/mm3 (150-450); Red Blood Count 2.82 mil/mm3 (4.50-5.90); Red Cell Distribution Width 13.5 % (11.6-17.2); White Blood Count 8.7 th/mm3 (4.0-11.0)
[2018-07-14] MEDS: Propofol 1000 mg/100 ml Inj 1,000 MG/100 ML BOTTLE IV.CONT PRN ×3 (05:47→18:37)
[2018-07-14] MEDS: Sod Chloride 0.9% Inj 1,000 ML IV.CONT SCH ×2 (06:11→08:57)
[2018-07-14 06:17] LABS: Alanine Aminotransferase 525 U/L (12-78); Albumin 3.1 g/dL (3.4-5.0); Alkaline Phosphatase 63 U/L (45-117); Anion Gap 14 meq/L (5-15); Aspartate Aminotransferase 211 U/L (15-37); Blood Urea Nitrogen 58 mg/dL (7-18); Carbon Dioxide 24.6 meq/L (21.0-32.0); Chloride 102 meq/L (98-107); Glomerular Filtration Rate 13 mL/min (>89); Glucose,Random 106 mg/dL (74-106); Magnesium 2.5 mg/dL (1.5-2.5); Potassium 3.3 meq/L (3.5-5.1); Sodium 141 meq/L (136-145)
[2018-07-14] MEDS: Chlorhexidine 0.12% Oral Kit 15 ML UDC OROPHARYNG SCH ×2 (08:58→19:21)
[2018-07-14] MEDS: Mupirocin 2% Nasal Oint Topical Syringe EACH NARE SCH ×2 (09:12→20:38)
[2018-07-14] MEDS: Pantoprazole Inj 40 MG Vial IV.PUSH SCH (09:12)
[2018-07-14 10:09] LABS: Mesothelial,Pleural Fluid 5 %
[2018-07-14] MEDS: Bumetanide Inj 25 MG/100 ML BAG IV.CONT SCH ×2 (10:32→12:00)
--- NOTE | 2018-07-14 10:54 | P.PNCC ---
Subjective Subjective Remarks/Hospital Course: 63-year-old male. Admission 07/09/2018. Date of consultation 2017. Past medical history includes ongoing alcoholism. Urine tox screen on admission positive for cocaine and opiates. Patient originally fell from a single bed about 1 week ago. He did not seek treatment for his swollen left elbow. He is initially diagnosed here with a left olecranon fracture/ nondisplaced. Seen by Dr. Blanco recommended splint/immobilization. Follow-up outpatient with x-rays in 2 weeks. He was treated with alcoholism for on the [facility] protocol receiving multivitamin, folate and thiamine. During admission, patient had multiple complaints including right upper quadrant pain. Patient has CT his abdomen/pelvis revealed hepatic steatosis, pericholecystic fluid with no ductal dilatation. Ultrasound showed pericholecystic 6 with negative Lundy sign. Nuclear medicine scan revealed no activity in the intrahepatic ducts compatible ducts or small bowel. Likely slightly disease. Patient was evaluated by gastroenterology for this issue. BOBBY, AMA, ASMA, SSA a and B, Ronquillo, scleroderma and double-stranded DNA all pending. Negative hepatitis panel. Noted patient had angiogram of the abdomen which revealed no focal stenosis of the SMA, MIC or celiac. Patient elevated troponin. Was seen by Dr. chaudhry. Echocardiogram revealed EF 55-6%. PA P 43 mmHg. Trace to mild TR. Possibly demand ischemia due to sepsis. Was on aspirin. Did receive/placed on heparin drip. This is currently on hold due to coagulopathic state. Patient has gram-positive cocci in blood. Infectious disease has been counseled. Currently on vancomycin for comfort.) I repeated blood cultures, sputum and urine culture today. Patient is 80% right carotid artery stenosis. Followed by Dr. Bassett. Patient was transferred to ICU with persistent hypotension increasing lactic acidosis in the setting of acute liver injury. Worsening renal function. Patient has received 2.5 L normal saline the present time his blood pressure appears stable. Patient is currently denying abdominal pain. SUBJECTIVE: 07/11: Currently resting in bed and asking when he can go home. Creatinine is elevated 2.3. Will bolus with additional fluid. Echocardiogram results noted. 07/12: Negligible urine output overnight. Culver placed. Short of breath this morning. Not requiring pressors 07/13: Patient in respiratory distress tachypneic breathing 40 breaths/min. Intermittently desaturating to low 80s on nasal cannula. Very lethargic hardly protecting airway. Emergently intubated and placed on mechanical ventilation. Currently on Bumex infusion urine output improving. However BUN/creatinine was 49/4.53. Chest x-ray today shows extensive right-sided infiltrate. Chest x- ray on 07/12 shows extensive right-sided lower lobe infiltrate but was clear on 07/10/2018. Indicates probable aspiration pneumonia 07/14: Intubated and placed on mechanical ventilation yesterday for severe hypoxemic respiratory failure. After intubation right pigtail chest tube placed for large effusion. Last 24 hours 1.4 L drained. Currently on broad- spectrum antibiotics. Remains septic renal function stable creatinine 4.57. Remains on Bumex drip urine output 2.4 L in 24 hours Objective Vital Signs / I&O: Vital Signs 07/13/18 11:00 07/13/18 11:15 07/13/18 11:30 Temperature Pulse Rate 95 H 95 H 95 H Respiratory Rate 16 16 16 Blood Pressure 158/78 H 148/73 H 154/77 H Pulse Oximetry 96 95 96 07/13/18 11:45 07/13/18 12:00 07/13/18 12:15 Temperature 97.9 F Pulse Rate 94 H 94 H 94 H Respiratory Rate 16 16 16 Blood Pressure 154/77 H 159/79 H 157/81 H Pulse Oximetry 96 96 96 07/13/18 12:30 07/13/18 12:38 07/13/18 12:45 Temperature Pulse Rate 94 H 93 H 93 H Respiratory Rate 16 16 16 Blood Pressure 159/82 H 155/81 H Pulse Oximetry 96 99 07/13/18 13:00 07/13/18 13:15 07/13/18 13:30 Temperature Pulse Rate 94 H 94 H 94 H Respiratory Rate 16 16 16 Blood Pressure 157/82 H 159/81 H 155/79 H Pulse Oximetry 99 99 99 07/13/18 13:45 07/13/18 14:00 07/13/18 14:15 Temperature Pulse Rate 93 H 93 H 93 H Respiratory Rate 17 16 16 Blood Pressure 169/83 H 161/74 H 158/78 H Pulse Oximetry 99 99 99 07/13/18 14:30 07/13/18 14:45 07/13/18 15:00 Temperature Pulse Rate 92 H 90 89 Respiratory Rate 16 16 16 Blood Pressure 158/78 H 161/78 H 158/77 H Pulse Oximetry 98 98 99 07/13/18 15:15 07/13/18 15:30 07/13/18 15:45 Temperature Pulse Rate 88 87 87 Respiratory Rate 16 16 16 Blood Pressure 157/79 H 157/85 H 158/88 H Pulse Oximetry 99 99 99 07/13/18 16:00 07/13/18 16:16 07/13/18 16:31 Temperature 97.8 F Pulse Rate 91 H 90 90 Respiratory Rate 17 Blood Pressure 165/87 H 170/82 H 166/76 H Pulse Oximetry 99 100 97 07/13/18 16:46 07/13/18 17:00 07/13/18 17:01 Temperature Pulse Rate 90 95 H 96 H Respiratory Rate 16 26 H 23 Blood Pressure 160/74 H 140/68 Pulse Oximetry 100 93 L 91 L 07/13/18 17:11 07/13/18 17:16 07/13/18 17:31 Temperature Pulse Rate 91 H 89 92 H Respiratory Rate 16 16 16 Blood Pressure 171/81 H 159/79 H Pulse Oximetry 99 99 95 07/13/18 17:46 07/13/18 18:00 07/13/18 18:01 Temperature Pulse Rate 91 H 91 H 91 H Respiratory Rate 16 16 16 Blood Pressure 157/80 H 156/80 H Pulse Oximetry 95 95 95 07/13/18 18:16 07/13/18 18:31 07/13/18 18:46 Temperature Pulse Rate 91 H 91 H 90 Respiratory Rate 16 16 16 Blood Pressure 157/79 H 159/82 H 157/85 H Pulse Oximetry 96 96 96 07/13/18 19:00 07/13/18 19:01 07/13/18 19:16 Temperature Pulse Rate 90 90 90 Respiratory Rate 16 16 16 Blood Pressure 160/85 H 164/90 H Pulse Oximetry 96 97 97 07/13/18 19:28 07/13/18 19:31 07/13/18 19:46 Temperature Pulse Rate 89 88 90 Respiratory Rate 16 16 16 Blood Pressure 161/79 H 162/83 H Pulse Oximetry 99 100 97 07/13/18 20:00 07/13/18 20:01 07/13/18 20:16 Temperature 97.7 F Pulse Rate 90 90 89 Respiratory Rate 16 16 16 Blood Pressure 163/84 H 165/89 H Pulse Oximetry 96 96 96 07/13/18 21:00 07/13/18 21:01 07/13/18 22:00 Temperature Pulse Rate 91 H 90 91 H Respiratory Rate 16 20 16 Blood Pressure 171/84 H 161/77 H Pulse Oximetry 97 97 98 07/13/18 23:00 07/13/18 23:27 07/14/18 00:00 Temperature 98.4 F Pulse Rate 92 H 93 H 95 H Respiratory Rate 16 16 16 Blood Pressure 161/74 H 160/74 H Pulse Oximetry 98 98 98 07/14/18 01:00 07/14/18 02:00 07/14/18 02:28 Temperature Pulse Rate 98 H 95 H 114 H Respiratory Rate 16 16 17 Blood Pressure 154/77 H 177/77 H 151/83 H Pulse Oximetry 95 95 95 07/14/18 03:00 07/14/18 03:09 07/14/18 04:00 Temperature 98.8 F Pulse Rate 111 H 108 H 109 H Respiratory Rate 16 16 16 Blood Pressure 144/71 H 131/67 Pulse Oximetry 94 L 94 L 94 L 07/14/18 05:00 07/14/18 06:00 07/14/18 07:00 Temperature Pulse Rate 106 H 105 H 104 H Respiratory Rate 16 16 16 Blood Pressure 121/64 129/64 126/66 Pulse Oximetry 94 L 94 L 94 L 07/14/18 08:00 07/14/18 08:20 07/14/18 09:00 Temperature 98.7 F Pulse Rate 103 H 102 H 103 H Respiratory Rate 16 16 16 Blood Pressure 127/67 125/67 Pulse Oximetry 95 95 94 L Intake & Output 07/13/18 07/14/18 07/14/18 18:59 06:59 18:59 Intake Total 900 / 900 2350 / 2350 1200 / 1200 Output Total 2250 / 2250 1520 / 1520 Balance -1350 / -1350 830 / 830 1200 / 1200 Weight 80.2 kg Intake: IV 900 / 900 2350 / 2350 1200 / 1200 Bumex Inj 25 mg In 100 ml @ 1 100 / 100 100 / 100 MG/HR 4 mls/hr IV.CONT .Q24H [facility] Rx#:[id number] Diprivan 1000 mg/100 ml Inj 1, 100 / 100 200 / 200 100 / 100 000 mg In 100 ml @ 5 MCG/KG/MIN 2.376 mls/hr IV.CONT TITRATE PRN Rx#:[id number] NS Inj 1,000 ML @ 30 mls/hr IV. 1000 / 1000 1000 / 1000 CONT .Q24H [facility] Rx#:[id number] Alburx 5% Inj 500 ML @ 250 mls/ 500 / 500 500 / 500 hr IV.SIG Q12H [facility] Rx#:[id number] Cubicin Inj 400 MG In NS Inj 100 / 100 100 ML @ 200 mls/hr IV.SIG Q48H [facility] Rx#:[id number] Zyvox 600 mg Premix 300 ML @ 600 / 600 300 mls/hr IV.SIG Q12H [facility] Rx#: [id number] Zosyn 2.25 GM Premix 50 ML @ 100 / 100 50 / 50 100 mls/hr IV.SIG Q8H [facility] Rx#: [id number] Oral 0 / 0 Output: Urine Amount (Catheter) 1000 / 1000 1400 / 1400 Indwelling Urethral Catheter 1000 / 1000 1400 / 1400 Chest Tube Drainage 1250 / 1250 120 / 120 Right 1250 / 1250 120 / 120 Other: Date of Last Bowel Movement 07/10/18 07/10/18 07/10/18 # Bowel Movements 0 Result Diagrams: 07/14/18 05:32 07/14/18 05:32 Objective Remarks: GENERAL: 63-year-old male lying in bed intubated sedated SKIN: Warm and dry. HEAD: Atraumatic. Normocephalic. EYES: Pupils are unequal right 3 mm reactive left is 6 mm nonreactive ENT: Orotracheally intubated NECK: Trachea midline. No JVD. CARDIOVASCULAR: Regular rate and rhythm. S1, S2 no S4 RESPIRATORY: Air entry equal bilaterally minimal crackles at the bases. Right chest tube with 1.4 L removed GASTROINTESTINAL: Abdomen soft, non-tender, nondistended. Hepatic and splenic margins not palpable. MUSCULOSKELETAL: Extremities without clubbing, cyanosis, or edema. Left upper extremity currently in splint wrapped in Armen bandage NEUROLOGICAL: Patient is intubated sedated on sedation lightening patient does follow commands on bilateral upper extremities. Withdraws bilateral lower extremity. Pupils are unequal right 3 mm reactive left is 6 mm nonreactive Assessment and Plan - Assessment and Plan Plan: Neuro/Psych: Acute metabolic encephalopathy Anisocoria EtOH abuse Recent cocaine/opiate abuse -inhaled. Denies intravenous Propofol for sedation and vent synchrony after intubation Hold CIWA protocol initiated with Lorazepam/haloperidol as needed MVI/ folate. Patient states he inhaled cocaine 4-5 days ago. Denies IV drug use. Discontinued acetaminophen and related products with elevated transaminases Stat CT of the head yesterday for unequal pupil, negative for acute findings CV: Severe sepsis Lactic acidosis Elevated troponin likely demand ischemia Right carotid artery stenosis Elevated CPK On Bumex infusion Lactates decreased to 2.[address] chaudhry. 2D echocardiogram revealed Normal left ventricular size. Wall thickness is normal. The left ventricular systolic function is normal with an estimated ejection fraction in the range of 55-60%. Not on aspirin or heparin at this time due to thrombocytopenia Troponin trending downward. Followed by vascular surgery for right carotid artery stenosis 80%. Will need intervention when clinically stable. Resp: Acute hypoxemic respiratory failure Right lower lobe pneumonia with effusion Emphysematous type changes on CT neck Hyperammonemia Hypoalbuminemia Tobacco abuse Emergently intubated and placed on mechanical ventilation. PRVC/AC 07/13/2018 Bedside ultrasound shows large right pleural effusion, status post pigtail right chest tube with 1.4 L drained since placement on 07/13/2018 Vent bundle. Albuterol/ipratropium aerosols every 4 hours with albuterol aerosols every 2 hours as needed dyspnea Follow-up on chest x-ray and ABG Tobacco cessation will be encouraged GI: Elevated transaminases Elevated total bilirubin Poss acalc jody Hypoalbuminemia Noted CT abdomen/pelvis revealed possible early cholecystitis. Pericholecystic fluid. Ultrasound revealed negative Lundy sign. Nuclear medicine scan revealed no activity in the intrahepatic ductal compound bile duct or small bowel. CT angiogram of the abdomen/pelvis revealed 20-30% stenosis of the SMA. Patent MIC, celiac. Evaluated by gastroenterology. Hepatitis panel negative. Pending ceruloplasmin, BOBBY, AMA, ASMA, SSA AMB, anti-Ronquillo, RP, scleroderma, double-stranded DNA, hemochromatosis Currently on lactulose 30 cc 3 times daily for elevated ammonia. Start tube feeds in 24 hours Endo: Sliding scale insulin with Accu-Cheks to maintain euglycemia/every 6 hours low regimen TSH 1. Cortisol 25 Renal: Acute kidney failure Culver catheter if indicated for accurate I's and O's in a critical patient with severe renal failure and on Bumex drip Good urine output on Bumex drip, 2.4 L in 24 hours BUN/creatinine worsening nephrology following. Creatinine is 4.57 today however nonoliguric urine eosinophils negative, Monitor urine output Avoid nephrotoxic medication. Discontinued vancomycin 07/11 Heme: Macrocytic anemia Thrombocytopenia Coagulopathic state Follow-up on PT/INR/PTT and fibrinogen No indication for transfusion of blood products at this time ID: MRSA bacteremia Septic shock Right lower lobe pneumonia/aspiration 2D transthoracic echocardiogram revealed no signs of endocarditis. Infectious disease following Currently on daptomycin and Zosyn. Zyvox added for gram-positive coverage for presumed pneumonia Replete sputum cx after intubation pending Pleural fluid studies MSK: Left posterior olecranon fracture Followed by Dr. Blanco. Currently in splint immobilized. Follow-up in 2 weeks with x-rays CT left elbow today FEN: Replace electrolytes as clinically indicated Access -Utilize peripheral IV. Central line if indicated Prophylaxis -GI -pantoprazole -DVT-SCD/hold off chemical DVT prophylaxis due to severe thrombocytopenia Follow-up 40 minutes critical care time excluding procedures Patient is very critical intubated for worsening acute hypoxemic respiratory failure. There is evidence of aspiration. Code Status: Full
--- NOTE | 2018-07-14 13:51 | P.PNID ---
Subjective Remarks: Patient is a 63-year-old male, presented to the hospital complaining of pain and swelling on his left elbow. He stated that he fell about a week ago but did not seek any treatment for his left elbow. He presented to the ED, and he was found to have a fracture of the olecranon on the left side. Patient also since admission has complained of some abdominal pain. He has known history of significant alcohol abuse. Imaging studies of the abdomen showed hepatic steatosis, pericholecystic fluid with no ductal dilatation. Ultrasound showed pericholecystic fluid with negative Lundy sign. He had a HIDA scan which showed no activity which could most likely be due to his liver disease. Patient also had a CTA as part of evaluation for his abdominal pain. That is okay. There were 2 blood cultures done in the ED, and they are now reported as growing MRSA. Patient has had some low-grade temps. Overnight he had persistent hypotension, and he was transferred to the ICU. Patient currently is on pressors. He is afebrile. He is still complaining of abdominal pain. He states he has chronic back pain which has not changed. He denies any shortness of breath. On this admission he was also found to have 80% right carotid artery stenosis, and vascular is following the patient. Echocardiograms not showing any obvious vegetation. His WBC is mildly elevated. He has an elevated lactic acid. His platelet count is low, fibrinogen is normal. Infectious disease consultation has been requested to assist with evaluation and treatment of his bacteremia. Notes reviewed Patient required intubation, for AMS, hypoxemia Sedated on the vent Has CT R - fluid serous NO new (+) BC Creatinine rising Temsp ok WBC normal Sputum ok CXR today better Urine for eos negative Antibiotics: Zosyn Cubicin Zyvox Lines: Line sites with no e.o infection Past Medical History: Tobacco and ETOH abuse Drug screen (+) cocaine (denies IVDU), admits to smoking Allergies/Adverse Reactions: Allergies No Known Allergies Allergy (Verified 07/08/18 12:30) Objective Vital Signs 07/13/18 13:45 07/13/18 14:00 07/13/18 14:15 Temperature Pulse Rate 93 H 93 H 93 H Respiratory Rate 17 16 16 Blood Pressure 169/83 H 161/74 H 158/78 H Pulse Oximetry 99 99 99 07/13/18 14:30 07/13/18 14:45 12/09/18 15:00 Temperature Pulse Rate 92 H 90 89 Respiratory Rate 16 16 16 Blood Pressure 158/78 H 161/78 H 158/77 H Pulse Oximetry 98 98 99 07/13/18 15:15 07/13/18 15:30 07/13/18 15:45 Temperature Pulse Rate 88 87 87 Respiratory Rate 16 16 16 Blood Pressure 157/79 H 157/85 H 158/88 H Pulse Oximetry 99 99 99 07/13/18 16:00 07/13/18 16:16 07/13/18 16:31 Temperature 97.8 F Pulse Rate 91 H 90 90 Respiratory Rate 17 Blood Pressure 165/87 H 170/82 H 166/76 H Pulse Oximetry 99 100 97 07/13/18 16:46 07/13/18 17:00 07/13/18 17:01 Temperature Pulse Rate 90 95 H 96 H Respiratory Rate 16 26 H 23 Blood Pressure 160/74 H 140/68 Pulse Oximetry 100 93 L 91 L 07/13/18 17:11 07/13/18 17:16 07/13/18 17:31 Temperature Pulse Rate 91 H 89 92 H Respiratory Rate 16 16 16 Blood Pressure 171/81 H 159/79 H Pulse Oximetry 99 99 95 07/13/18 17:46 07/13/18 18:00 07/13/18 18:01 Temperature Pulse Rate 91 H 91 H 91 H Respiratory Rate 16 16 16 Blood Pressure 157/80 H 156/80 H Pulse Oximetry 95 95 95 07/13/18 18:16 07/13/18 18:31 07/13/18 18:46 Temperature Pulse Rate 91 H 91 H 90 Respiratory Rate 16 16 16 Blood Pressure 157/79 H 159/82 H 157/85 H Pulse Oximetry 96 96 96 07/13/18 19:00 07/13/18 19:01 07/13/18 19:16 Temperature Pulse Rate 90 90 90 Respiratory Rate 16 16 16 Blood Pressure 160/85 H 164/90 H Pulse Oximetry 96 97 97 07/13/18 19:28 07/13/18 19:31 07/13/18 19:46 Temperature Pulse Rate 89 88 90 Respiratory Rate 16 16 16 Blood Pressure 161/79 H 162/83 H Pulse Oximetry 99 100 97 07/13/18 20:00 07/13/18 20:01 07/13/18 20:16 Temperature 97.7 F Pulse Rate 90 90 89 Respiratory Rate 16 16 16 Blood Pressure 163/84 H 165/89 H Pulse Oximetry 96 96 96 07/13/18 21:00 07/13/18 21:01 07/13/18 22:00 Temperature Pulse Rate 91 H 90 91 H Respiratory Rate 16 20 16 Blood Pressure 171/84 H 161/77 H Pulse Oximetry 97 97 98 07/13/18 23:00 07/13/18 23:27 07/14/18 00:00 Temperature 98.4 F Pulse Rate 92 H 93 H 95 H Respiratory Rate 16 16 16 Blood Pressure 161/74 H 160/74 H Pulse Oximetry 98 98 98 07/14/18 01:00 07/14/18 02:00 07/14/18 02:28 Temperature Pulse Rate 98 H 95 H 114 H Respiratory Rate 16 16 17 Blood Pressure 154/77 H 177/77 H 151/83 H Pulse Oximetry 95 95 95 07/14/18 03:00 07/14/18 03:09 07/14/18 04:00 Temperature 98.8 F Pulse Rate 111 H 108 H 109 H Respiratory Rate 16 16 16 Blood Pressure 144/71 H 131/67 Pulse Oximetry 94 L 94 L 94 L 07/14/18 05:00 07/14/18 06:00 07/14/18 07:00 Temperature Pulse Rate 106 H 105 H 104 H Respiratory Rate 16 16 16 Blood Pressure 121/64 129/64 126/66 Pulse Oximetry 94 L 94 L 94 L 07/14/18 08:00 07/14/18 08:20 07/14/18 09:00 Temperature 98.7 F Pulse Rate 103 H 102 H 103 H Respiratory Rate 16 16 16 Blood Pressure 127/67 125/67 Pulse Oximetry 95 95 94 L 07/14/18 10:00 07/14/18 11:00 07/14/18 11:42 Temperature Pulse Rate 104 H 105 H 106 H Respiratory Rate 16 16 16 Blood Pressure 132/66 142/68 H Pulse Oximetry 95 94 L 96 07/14/18 12:00 Temperature 98.7 F Pulse Rate 108 H Respiratory Rate 16 Blood Pressure 142/72 H Pulse Oximetry 94 L Intake & Output 07/13/18 07/14/18 07/14/18 18:59 06:59 18:59 Intake Total 900 / 900 2350 / 2350 1300 / 1300 Output Total 2250 / 2250 1520 / 1520 Balance -1350 / -1350 830 / 830 1300 / 1300 Weight 80.2 kg Intake: IV 900 / 900 2350 / 2350 1300 / 1300 Bumex Inj 25 mg In 100 ml @ 1 100 / 100 200 / 200 MG/HR 4 mls/hr IV.CONT .Q24H [facility] Rx#:[id number] Diprivan 1000 mg/100 ml Inj 1, 100 / 100 200 / 200 100 / 100 000 mg In 100 ml @ 5 MCG/KG/MIN 2.376 mls/hr IV.CONT TITRATE PRN Rx#:[id number] NS Inj 1,000 ML @ 30 mls/hr IV. 1000 / 1000 1000 / 1000 CONT .Q24H [facility] Rx#:[id number] Alburx 5% Inj 500 ML @ 250 mls/ 500 / 500 500 / 500 hr IV.SIG Q12H [facility] Rx#:[id number] Cubicin Inj 400 MG In NS Inj 100 / 100 100 ML @ 200 mls/hr IV.SIG Q48H [facility] Rx#:[id number] Zyvox 600 mg Premix 300 ML @ 600 / 600 300 mls/hr IV.SIG Q12H [facility] Rx#: [id number] Zosyn 2.25 GM Premix 50 ML @ 100 / 100 50 / 50 100 mls/hr IV.SIG Q8H [facility] Rx#: [id number] Oral 0 / 0 Output: Urine Amount (Catheter) 1000 / 1000 1400 / 1400 Indwelling Urethral Catheter 1000 / 1000 1400 / 1400 Chest Tube Drainage 1250 / 1250 120 / 120 Right 1250 / 1250 120 / 120 Other: Date of Last Bowel Movement 07/10/18 07/10/18 07/10/18 # Bowel Movements 0 07/13/18 07:35 Sputum - Endotracheal Gram Stain - Final 07/13/18 07:35 Sputum - Endotracheal Sputum Culture - Preliminary No growth in 24 hours 07/13/18 08:55 Fluid - Pleural fluid Gram Stain - Final 07/13/18 08:55 Fluid - Pleural fluid Body Fluid Culture - Preliminary No growth in 24 hours 07/10/18 11:15 Blood - Peripheral Aerobic Blood Culture - Preliminary No growth in 4 days 07/10/18 11:15 Blood - Peripheral Anaerobic Blood Culture - Preliminary No growth in 4 days 07/10/18 11:20 Blood - Peripheral Aerobic Blood Culture - Preliminary No growth in 4 days 07/10/18 11:20 Blood - Peripheral Anaerobic Blood Culture - Preliminary No growth in 4 days 07/08/18 19:35 Blood - Peripheral Aerobic Blood Culture - Final S. aureus MRSA 07/08/18 19:35 Blood - Peripheral Anaerobic Blood Culture - Final Staphylococcus coag negative 07/13/18 08:55 Fluid - Pleural fluid Fungal Smear - Final No fungal elements seen 07/13/18 08:55 Fluid - Pleural fluid Fungal Culture - Pending 07/13/18 08:55 Fluid - Pleural fluid Acid Fast Bacilli Smear - Pending 07/13/18 08:55 Fluid - Pleural fluid Mycobacterial Culture - Pending 07/10/18 22:30 Clean Catch Urine Urine Culture - Final No growth in 48 hours 07/08/18 19:30 Blood - Peripheral Aerobic Blood Culture - Final S. aureus MRSA 07/08/18 19:30 Blood - Peripheral Anaerobic Blood Culture - Final S. aureus MRSA Lab - Hematology Results 07/13/18 07/14/18 04:58 05:32 WBC 7.2 8.7 RBC 2.97 L 2.82 L Hgb 10.0 L 9.6 L Hct 28.9 L 27.2 L MCV 97.3 96.3 MCH 33.6 34.1 H MCHC 34.6 35.4 RDW 13.6 13.5 Plt Count 39 L 45 L MPV 10.7 11.1 H Prelim Diff (Auto) Slide review pending Neut % (Auto) 74.4 H Lymph % (Auto) 8.6 L [place] % (Auto) 15.6 H Eos % (Auto) 1.0 Baso % (Auto) 0.4 Neut # (Auto) 5.4 Lymph # (Auto) 0.6 L [place] # (Auto) 1.1 H Eos # (Auto) 0.1 Baso # (Auto) 0.0 WBC Differential . Diff Scan Auto diff confirmed Differential Comment . Platelet Estimate Low L Platelet Morphology Normal Dimorphic RBCs Present H Target Cells 1+ H Lab - Chemistry Results 07/09/18 07/13/18 07/14/18 20:17 04:58 05:32 Sodium 139 141 Potassium 3.5 3.3 L Chloride 102 102 Carbon Dioxide 27.2 24.6 Anion Gap 10 14 BUN 49 H 58 H Creatinine 4.53 H 4.57 H Estimated GFR 13 L 13 L Random Glucose 122 H 106 Calcium 7.7 L 8.0 L Phosphorus 4.1 D Magnesium 2.5 Total Bilirubin 5.7 H AST 211 H ALT 525 H Alkaline Phosphatase 63 Total Protein 6.0 L Albumin 3.0 L D 3.1 L Ceruloplasmin 24 Imaging: ITS Impressions Elbow X-Ray 07/08/18 18:01 CONCLUSION: 1. Small, mildly displaced olecranon avulsion fracture fragments of the triceps insertion with associated soft tissue swelling. 2. Joint effusion. No perceptible intra-articular fracture. No subluxation. Abdomen/Pelvis CT 07/08/18 18:02 CONCLUSION: 1. Severe fatty infiltration of the liver. 2. Apparent pericholecystic fluid. Also fairly robust enhancement of the gallbladder mucosa. Please correlate clinically for any evidence of cholecystitis. No stones or ductal dilatation demonstrated. Gallbladder Ultrasound 07/08/18 18:53 CONCLUSION: 1. Small, nonspecific pericholecystic fluid without stones, wall thickening or sonographic Lundy's sign. The fluid may be on the basis of hepatocellular disease. The ultrasound does not support acute cholecystitis. 2. Fatty infiltrated and mildly enlarged liver. Carotid Doppler Study 07/09/18 00:00 CONCLUSION: 1. Right Internal Carotid Artery: Findings indicate >70% stenosis, but less than near occlusion. 2. Left Internal Carotid Artery: Findings indicate <50% stenosis. Hepatobiliary Scan Nuclear Medicine 07/09/18 14:22 CONCLUSION: 1. No activity in intrahepatic ducts, common duct or small bowel. Considerations include include acute obstruction of the common duct and diffuse hepatocellular disease. 2. CT scan shows no dilatation of the common duct or intrahepatic ducts. Diffuse hepatocellular disease is suspected. Neck CTA 07/10/18 00:00 CONCLUSION: 1. 80% stenosis of the proximal right ICA. Left carotid and bilateral vertebral arteries are patent. 2. Emphysematous changes. Abdomen/Pelvis CTA 07/10/18 00:08 CONCLUSION: 1. 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 The SMA and MIC are patent. 2. Hepatic steatosis. 3. Emphysematous changes. Abdomen/Bladder Ultrasound 07/11/18 00:00 CONCLUSION: 1. Normal ultrasound appearance of the kidneys. 2. Other findings include hepatic steatosis and left pleural effusion. Elbow CT 07/11/18 00:00 CONCLUSION: 1. Small fracture fragment off the olecranon. 2. There is subcutaneous edema identified posterior to the elbow with soft tissue swelling. Head CT 07/13/18 00:00 CONCLUSION: 1. No acute intracranial abnormality. 2. Atrophy. . Chest X-Ray 07/13/18 08:32 CONCLUSION: Improved aeration and decreased opacity in right lung base following chest tube placement. No evidence of pneumothorax. No other significant change. Physical Exam: GENERAL: Patient is a well-nourished, well-developed male. Sedated on the vent , NAD SKIN: Cool and dry. No generalized rash, no ecchymoses. HEAD: Atraumatic. Normocephalic. No temporal wasting, or tenderness. EYES: [place] conjunctiva. No petechia or hemorrhage. Pupils equal, round and reactive to light. Has mild injection ENT: Intubated CARDIOVASCULAR: Regular rate and rhythm. RESPIRATORY: Clear to auscultation. Breath sounds equal bilaterally. ABDOMEN: Soft, Mildly distended, tender diffusely, no guarding or rebound. Bowel sounds present and normoactive. EXTREMITIES: No clubbing, cyanosis. Mild pedal edema. Has posterior splint in his whole LUE NEUROLOGICAL: Pupils unequal left > right. PSYCHIATRIC: Unable to assess LINE: No evidence of infection Assessment and Plan - Plan Impression MRSA sepsis ? olecranon trauma as entry point for MRSA MRSA bacteremia, ? endocarditis Shock, resolved Known ETOH abuse and tobacco abuse Denies IVDU, admits to smoking cocaine ETOH liver disease Elevated LFT Thrombocytopenia Acute renal failure: sepsis, contrast, meds. Recommendation continue Cubicin for now for MRSA bacteremia Continue Zosyn ?aspiration prior to intubation. Continue Zyvox Follow C/S Follow temps Monitor progress
--- NOTE | 2018-07-14 15:41 | P.PNCA ---
Subjective Interval history: Patient currently intubated and sedated. No acute distress noted. Medications and Allergies Allergies Allergy/AdvReac Type Severity Reaction Status Date / Time No Known Allergies Allergy Verified 07/08/18 12:30 Home Medications Medication Instructions Recorded Confirmed Type No Known Home Medications 07/08/18 07/08/18 History Active Medications: Active Medications Al Hydroxide/Mg Hydroxide (Milk Of Pj White) 30 ml PO Q12H PRN PRN Reason: Mild Constipation Albuterol (Albuterol Neb (Prn)) 2.5 mg NEB Q2HR NEB PRN PRN Reason: DYSPNEA Albuterol (Duoneb Neb (Prn)) 1 ampul NEB Q2HR NEB PRN PRN Reason: SHORTNESS OF BREATH Last Admin: 07/14/18 08:20 Dose: 1 ampul Chlorhexidine Gluconate (Peridex 0.12% Oral Kit) 15 ml OROPHARYNG BID@0800, 2000 [facility] Last Admin: 07/14/18 08:58 Dose: 15 ml Flumazenil (Romazecon Inj) 0.2 mg IV.PUSH Q1M PRN PRN Reason: OVERSEDATION Haloperidol Lactate (Haldol Inj) 1 mg IV.PUSH Q15M PRN PRN Reason: for severe agitation Hydralazine HCl (Apresoline Inj) 10 mg IV.PUSH Q1H PRN PRN Reason: Sys Bp Greater Than 165 [facility] Last Admin: 07/14/18 02:07 Dose: 10 mg Daptomycin 400 mg/ Sodium (Chloride) 100 mls @ 200 mls/hr IV.SIG Q48H [facility] Last Infusion: 07/13/18 11:50 Dose: Infused Piperacillin/Tazobactam/Dextrose (Zosyn 2.25 Gm Premix) 50 mls @ 100 mls/hr IV.SIG Q8H [facility] Last Admin: 07/14/18 11:59 Dose: 100 mls/hr Sodium Chloride (Ns Inj) 1,000 mls @ 30 mls/hr IV.CONT .Q24H [facility] Last Admin: 07/14/18 08:57 Dose: 30 mls/hr Bumetanide (Bumex Inj) 25 mg in 100 mls @ 4 mls/hr IV.CONT .Q24H [facility] Last Admin: 07/14/18 12:00 Dose: 1 mg/hr, 4 mls/hr Albumin Human (Alburx 5% Inj) 500 mls @ 250 mls/hr IV.SIG Q12H [facility] Last Admin: 07/14/18 14:48 Dose: 250 mls/hr Propofol (Diprivan 1000 Mg/100 Ml Inj) 1,000 mg in 100 mls @ 2.376 mls/hr IV.CONT TITRATE PRN; Protocol PRN Reason: Per Protocol Last Admin: 07/14/18 08:56 Dose: 20 mcg/kg/min, 9.5 mls/hr Linezolid (Zyvox 600 Mg Premix) 300 mls @ 300 mls/hr IV.SIG Q12H [facility] Last Infusion: 07/14/18 06:06 Dose: Infused Labetalol HCl (Trandate Inj) 10 mg IV.PUSH Q1H PRN PRN Reason: Sbp>165, Dbp>90, Hr>65 Lactulose (Lactulose Liq) 30 ml PO DAILY PRN PRN Reason: SEVERE CONSITIPATION Lactulose (Lactulose Liq) 30 ml PO TID [facility] Last Admin: 07/14/18 12:00 Dose: Not Given Lorazepam (Ativan) 1 mg PO Q4H PRN PRN Reason: for CIWA 8-10 Lorazepam (Ativan) 2 mg PO Q2H PRN PRN Reason: for CIWA 11-14 Lorazepam (Ativan Inj) 2 mg IV.PUSH Q2H PRN PRN Reason: for CIWA 11-14 Last Admin: 07/12/18 23:49 Dose: 2 mg Lorazepam (Ativan Inj) 2 mg IV.PUSH Q1H PRN PRN Reason: for CIWA 15-20 Last Admin: 07/11/18 21:37 Dose: 2 mg Lorazepam (Ativan Inj) 2 mg IV.PUSH Q15M PRN PRN Reason: for CIWA > 20 Lorazepam (Ativan Inj) 1 mg IV.PUSH Q4H PRN PRN Reason: for CIWA 8-10 Last Admin: 07/12/18 10:48 Dose: 1 mg Miscellaneous Medication () 1 each OROPHARYNG 0000,0400,1200,1600 [facility] Last Admin: 07/14/18 12:00 Dose: 1 each Morphine Sulfate (Morphine Inj) 2 mg IV.PUSH Q4H PRN PRN Reason: BREAKTHROUGH PAIN Last Admin: 07/13/18 03:32 Dose: 2 mg Mupirocin (Bactroban 2% Nasal Oint) 1 applicatio EACH NARE BID [facility] Last Admin: 07/14/18 09:12 Dose: 1 applicatio Naloxone HCl (Narcan Inj) 0.4 mg IV.PUSH UNSCH PRN PRN Reason: SEE LABEL COMMENTS Ondansetron HCl (Zofran Inj) 4 mg IV.PUSH Q6H PRN PRN Reason: NAUSEA OR VOMITING Pantoprazole Sodium (Protonix Inj) 40 mg IV.PUSH DAILY [facility] Last Admin: 07/14/18 09:12 Dose: 40 mg Sennosides (Senokot) 17.2 mg PO Q12H PRN PRN Reason: Moderate Constipation Sodium Chloride (Ns Flush) 2 ml IV.FLUSH PRN PRN PRN Reason: FLUSH AFTER USING IV ACCESS Sodium Chloride (Ns Flush) 2 ml IV.FLUSH BID [facility] Last Admin: 07/14/18 09:12 Dose: 2 ml Physical Exam Vital signs: Vital Signs 07/13/18 15:30 07/13/18 15:45 07/13/18 16:00 Temperature 97.8 F Pulse Rate 87 87 91 H Respiratory Rate 16 16 17 Blood Pressure 157/85 H 158/88 H 165/87 H Pulse Oximetry 99 99 99 07/13/18 16:16 07/13/18 16:31 07/13/18 16:46 Temperature Pulse Rate 90 90 90 Respiratory Rate 16 Blood Pressure 170/82 H 166/76 H 160/74 H Pulse Oximetry 100 97 100 07/13/18 17:00 07/13/18 17:01 07/13/18 17:11 Temperature Pulse Rate 95 H 96 H 91 H Respiratory Rate 26 H 23 16 Blood Pressure 140/68 Pulse Oximetry 93 L 91 L 99 07/13/18 17:16 07/13/18 17:31 07/13/18 17:46 Temperature Pulse Rate 89 92 H 91 H Respiratory Rate 16 16 16 Blood Pressure 171/81 H 159/79 H 157/80 H Pulse Oximetry 99 95 95 07/13/18 18:00 07/13/18 18:01 07/13/18 18:16 Temperature Pulse Rate 91 H 91 H 91 H Respiratory Rate 16 16 16 Blood Pressure 156/80 H 157/79 H Pulse Oximetry 95 95 96 07/13/18 18:31 07/13/18 18:46 07/13/18 19:00 Temperature Pulse Rate 91 H 90 90 Respiratory Rate 16 16 16 Blood Pressure 159/82 H 157/85 H Pulse Oximetry 96 96 96 07/13/18 19:01 07/13/18 19:16 07/13/18 19:28 Temperature Pulse Rate 90 90 89 Respiratory Rate 16 16 16 Blood Pressure 160/85 H 164/90 H Pulse Oximetry 97 97 99 07/13/18 19:31 07/13/18 19:46 07/13/18 20:00 Temperature 97.7 F Pulse Rate 88 90 90 Respiratory Rate 16 16 16 Blood Pressure 161/79 H 162/83 H Pulse Oximetry 100 97 96 07/13/18 20:01 07/13/18 20:16 07/13/18 21:00 Temperature Pulse Rate 90 89 91 H Respiratory Rate 16 16 16 Blood Pressure 163/84 H 165/89 H Pulse Oximetry 96 96 97 07/13/18 21:01 07/13/18 22:00 07/13/18 23:00 Temperature Pulse Rate 90 91 H 92 H Respiratory Rate 20 16 16 Blood Pressure 171/84 H 161/77 H 161/74 H Pulse Oximetry 97 98 98 07/13/18 23:27 07/14/18 00:00 07/14/18 01:00 Temperature 98.4 F Pulse Rate 93 H 95 H 98 H Respiratory Rate 16 16 16 Blood Pressure 160/74 H 154/77 H Pulse Oximetry 98 98 95 07/14/18 02:00 07/14/18 02:28 07/14/18 03:00 Temperature Pulse Rate 95 H 114 H 111 H Respiratory Rate 16 17 16 Blood Pressure 177/77 H 151/83 H 144/71 H Pulse Oximetry 95 95 94 L 07/14/18 03:09 07/14/18 04:00 07/14/18 05:00 Temperature 98.8 F Pulse Rate 108 H 109 H 106 H Respiratory Rate 16 16 16 Blood Pressure 131/67 121/64 Pulse Oximetry 94 L 94 L 94 L 07/14/18 06:00 07/14/18 07:00 07/14/18 08:00 Temperature 98.7 F Pulse Rate 105 H 104 H 103 H Respiratory Rate 16 16 16 Blood Pressure 129/64 126/66 127/67 Pulse Oximetry 94 L 94 L 95 12/10/18 08:20 07/14/18 09:00 07/14/18 10:00 Temperature Pulse Rate 102 H 103 H 104 H Respiratory Rate 16 16 16 Blood Pressure 125/67 132/66 Pulse Oximetry 95 94 L 95 07/14/18 11:00 07/14/18 11:42 07/14/18 12:00 Temperature 98.7 F Pulse Rate 105 H 106 H 108 H Respiratory Rate 16 16 16 Blood Pressure 142/68 H 142/72 H Pulse Oximetry 94 L 96 94 L Intake & Output 07/13/18 07/14/18 07/14/18 18:59 06:59 18:59 Intake Total 900 / 900 2350 / 2350 1300 / 1300 Output Total 2250 / 2250 1520 / 1520 Balance -1350 / -1350 830 / 830 1300 / 1300 Weight 80.2 kg Intake: IV 900 / 900 2350 / 2350 1300 / 1300 Bumex Inj 25 mg In 100 ml @ 1 100 / 100 200 / 200 MG/HR 4 mls/hr IV.CONT .Q24H [facility] Rx#:[id number] Diprivan 1000 mg/100 ml Inj 1, 100 / 100 200 / 200 100 / 100 000 mg In 100 ml @ 5 MCG/KG/MIN 2.376 mls/hr IV.CONT TITRATE PRN Rx#:[id number] NS Inj 1,000 ML @ 30 mls/hr IV. 1000 / 1000 1000 / 1000 CONT .Q24H [facility] Rx#:[id number] Alburx 5% Inj 500 ML @ 250 mls/ 500 / 500 500 / 500 hr IV.SIG Q12H [facility] Rx#:[id number] Cubicin Inj 400 MG In NS Inj 100 / 100 100 ML @ 200 mls/hr IV.SIG Q48H [facility] Rx#:[id number] Zyvox 600 mg Premix 300 ML @ 600 / 600 300 mls/hr IV.SIG Q12H [facility] Rx#: [id number] Zosyn 2.25 GM Premix 50 ML @ 100 / 100 50 / 50 100 mls/hr IV.SIG Q8H [facility] Rx#: [id number] Oral 0 / 0 Output: Urine Amount (Catheter) 1000 / 1000 1400 / 1400 Indwelling Urethral Catheter 1000 / 1000 1400 / 1400 Chest Tube Drainage 1250 / 1250 120 / 120 Right 1250 / 1250 120 / 120 Other: Date of Last Bowel Movement 07/10/18 07/10/18 07/10/18 # Bowel Movements 0 - Constitutional no acute distress - Routine HEENT Exam Head: Present: normocephalic ENT: Present: mucous membranes moist Comments: left pupil chronically dilated - Routine Respiratory Exam Present: patient mechanically ventilated, decreased breath sounds - Routine Cardiovascular Exam Present: S1, S2. Absent: murmur, gallop, rubs - Routine Abdominal Exam Present: normoactive bowel sounds - Routine Extremities Exam Present: pulses intact, normal capillary refill. Absent: cyanosis, clubbing, edema - Routine Skin Exam Present: intact - Routine Neurological Exam sedated - Detailed Neurological Exam: Coma Scale Eye Opening: None Verbal Response: None Motor Response: None Tamera Coma Scale Total: 3 - Routine Psychiatric Exam Present: unable to assess - Urinary Catheter Management Indwelling Urethral Catheter Cath placed during this visit: yes Reason for continuing: Hourly intake/output Insertion date: 07/12/18 Insertion time: 07:45 Results 07/14/18 05:32 07/14/18 05:32 Cardiac Enzymes 07/14/18 Range/Units 05:32 AST 211 H (15-37) U/L CBC 07/13/18 07/14/18 Range/Units 04:58 05:32 WBC 7.2 8.7 (4.0-11.0) th/mm3 RBC 2.97 L 2.82 L (4.50-5.90) mil/mm3 Hgb 10.0 L 9.6 L (13.0-17.0) gm/dL Hct 28.9 L 27.2 L (39.0-51.0) % Plt Count 39 L 45 L (150-450) th/mm3 Neut # (Auto) 5.4 (1.8-7.7) th/mm3 Lymph # (Auto) 0.6 L (1.0-4.8) th/mm3 Frontier # (Auto) 1.1 H (0.0-0.9) th/mm3 Eos # (Auto) 0.1 (0.0-0.4) th/mm3 Baso # (Auto) 0.0 (0.0-0.2) th/mm3 Comprehensive Metabolic Panel 07/13/18 07/14/18 Range/Units 04:58 05:32 Sodium 139 141 (136-145) meq/L Potassium 3.5 3.3 L (3.5-5.1) meq/L Chloride 102 102 (98-107) meq/L Carbon Dioxide 27.2 24.6 (21.0-32.0) meq/L BUN 49 H 58 H (7-18) mg/dL Creatinine 4.53 H 4.57 H (0.60-1.30) mg/dL Calcium 7.7 L 8.0 L (8.5-10.1) mg/dL AST 211 H (15-37) U/L ALT 525 H (12-78) U/L Alkaline Phosphatase 63 (45-117) U/L Total Protein 6.0 L (6.4-8.2) g/dL Albumin 3.0 L D 3.1 L (3.4-5.0) g/dL Intake and Output 07/14/18 07/14/18 07/14/18 06:59 14:59 22:59 Intake Total 1949 / 1949 1300 / 1300 Output Total 1520 / 1520 Balance 430 / 430 1300 / 1300 Intake: IV 1949 1300 / 1300 Bumex Inj 25 mg In 100 ml @ 1 200 / 200 MG/HR 4 mls/hr IV.CONT .Q24H [facility] Rx#:[id number] Diprivan 1000 mg/100 ml Inj 1, 100 / 100 100 / 100 000 mg In 100 ml @ 5 MCG/KG/MIN 2.376 mls/hr IV.CONT TITRATE PRN Rx#:[id number] NS Inj 1,000 ML @ 30 mls/hr IV. 1000 / 1000 1000 / 1000 CONT .Q24H [facility] Rx#:[id number] Alburx 5% Inj 500 ML @ 250 mls/ 500 / 500 hr IV.SIG Q12H [facility] Rx#:[id number] Zyvox 600 mg Premix 300 ML @ 300 / 300 300 mls/hr IV.SIG Q12H [facility] Rx#: [id number] Zosyn 2.25 GM Premix 50 ML @ 50 / 50 100 mls/hr IV.SIG Q8H [facility] Rx#: [id number] Oral 0 / 0 Output: Urine Amount (Catheter) 1400 / 1400 Indwelling Urethral Catheter 1400 / 1400 Chest Tube Drainage 120 / 120 Right 120 / 120 Other: Date of Last Bowel Movement 07/10/18 07/10/18 # Bowel Movements 0 Weight 80.2 kg - Imaging and Cardiology Imaging: Impressions Head CT 07/13/18 00:00 CONCLUSION: 1. No acute intracranial abnormality. 2. Atrophy. . Chest X-Ray 07/13/18 07:26 CONCLUSION: Interval placement of endotracheal tube which is in appropriate position. Generalized interstitial vascular congestion with bilateral airspace disease and bilateral effusions most characteristic of congestive heart failure. Chest X-Ray 07/13/18 08:32 CONCLUSION: Improved aeration and decreased opacity in right lung base following chest tube placement. No evidence of pneumothorax. No other significant change. Assessment and Plan - Assessment (1) Chest pain Code(s): R07.9 - Chest pain, unspecified Status: Acute (2) Elevated troponin level Code(s): R74.8 - Abnormal levels of other serum enzymes Status: Acute (3) Liver failure Code(s): K72.90 - Hepatic failure, unspecified without coma Status: Acute (4) Hyperbilirubinemia Code(s): E80.6 - Other disorders of bilirubin metabolism Status: Acute - Plan No new cardiac issues; we will continue with current treatment plan and adjust as needed. Renal function continues to worsen, renal evaluation in progress. Patient continues to be on contact isolation due to S. aureus in the blood, ID evaluation in progress. Continue ICU care. Wean vent as tolerated. We will continue to monitor the patient during his hospitalization. The patient was seen and evaluated by Dr. Gonzalez who participated in care, management and decision making. - Attending Attestation Patient seen and examined. I reviewed and agree with the evaluation and plan as presented. Continue ICU care. Wean vent as tolerated. Overall prognosis remains guarded.
--- NOTE | 2018-07-14 17:01 | P.PNNP ---
Subjective Interval history: Intubated and on sedation. Creatinine at 4.57 on bumex gtt with good urinary output. <Edel Lantigua - Last Filed: 07/14/18 16:56> Physical Exam Vital signs: Vital Signs 07/13/18 17:00 07/13/18 17:01 07/13/18 17:11 Temperature Pulse Rate 95 H 96 H 91 H Respiratory Rate 26 H 23 16 Blood Pressure 140/68 Pulse Oximetry 93 L 91 L 99 07/13/18 17:16 07/13/18 17:31 07/13/18 17:46 Temperature Pulse Rate 89 92 H 91 H Respiratory Rate 16 16 16 Blood Pressure 171/81 H 159/79 H 157/80 H Pulse Oximetry 99 95 95 07/13/18 18:00 07/13/18 18:01 07/13/18 18:16 Temperature Pulse Rate 91 H 91 H 91 H Respiratory Rate 16 16 16 Blood Pressure 156/80 H 157/79 H Pulse Oximetry 95 95 96 07/13/18 18:31 07/13/18 18:46 07/13/18 19:00 Temperature Pulse Rate 91 H 90 90 Respiratory Rate 16 16 16 Blood Pressure 159/82 H 157/85 H Pulse Oximetry 96 96 96 07/13/18 19:01 07/13/18 19:16 07/13/18 19:28 Temperature Pulse Rate 90 90 89 Respiratory Rate 16 16 16 Blood Pressure 160/85 H 164/90 H Pulse Oximetry 97 97 99 07/13/18 19:31 07/13/18 19:46 07/13/18 20:00 Temperature 97.7 F Pulse Rate 88 90 90 Respiratory Rate 16 16 16 Blood Pressure 161/79 H 162/83 H Pulse Oximetry 100 97 96 07/13/18 20:01 07/13/18 20:16 07/13/18 21:00 Temperature Pulse Rate 90 89 91 H Respiratory Rate 16 16 16 Blood Pressure 163/84 H 165/89 H Pulse Oximetry 96 96 97 07/13/18 21:01 07/13/18 22:00 07/13/18 23:00 Temperature Pulse Rate 90 91 H 92 H Respiratory Rate 20 16 16 Blood Pressure 171/84 H 161/77 H 161/74 H Pulse Oximetry 97 98 98 07/13/18 23:27 07/14/18 00:00 07/14/18 01:00 Temperature 98.4 F Pulse Rate 93 H 95 H 98 H Respiratory Rate 16 16 16 Blood Pressure 160/74 H 154/77 H Pulse Oximetry 98 98 95 07/14/18 02:00 07/14/18 02:28 07/14/18 03:00 Temperature Pulse Rate 95 H 114 H 111 H Respiratory Rate 16 17 16 Blood Pressure 177/77 H 151/83 H 144/71 H Pulse Oximetry 95 95 94 L 07/14/18 03:09 07/14/18 04:00 07/14/18 05:00 Temperature 98.8 F Pulse Rate 108 H 109 H 106 H Respiratory Rate 16 16 16 Blood Pressure 131/67 121/64 Pulse Oximetry 94 L 94 L 94 L 07/14/18 06:00 07/14/18 07:00 07/14/18 08:00 Temperature 98.7 F Pulse Rate 105 H 104 H 103 H Respiratory Rate 16 16 16 Blood Pressure 129/64 126/66 127/67 Pulse Oximetry 94 L 94 L 95 07/14/18 08:20 07/14/18 09:00 07/14/18 10:00 Temperature Pulse Rate 102 H 103 H 104 H Respiratory Rate 16 16 16 Blood Pressure 125/67 132/66 Pulse Oximetry 95 94 L 95 07/14/18 11:00 07/14/18 11:42 07/14/18 12:00 Temperature 98.7 F Pulse Rate 105 H 106 H 108 H Respiratory Rate 16 16 16 Blood Pressure 142/68 H 142/72 H Pulse Oximetry 94 L 96 94 L Intake & Output 07/13/18 07/14/18 07/14/18 18:59 06:59 18:59 Intake Total 900 / 900 2350 / 2350 1300 / 1300 Output Total 2250 / 2250 1520 / 1520 Balance -1350 / -1350 830 / 830 1300 / 1300 Weight 80.2 kg Intake: IV 900 / 900 2350 / 2350 1300 / 1300 Bumex Inj 25 mg In 100 ml @ 1 100 / 100 200 / 200 MG/HR 4 mls/hr IV.CONT .Q24H [facility] Rx#:[id number] Diprivan 1000 mg/100 ml Inj 1, 100 / 100 200 / 200 100 / 100 000 mg In 100 ml @ 5 MCG/KG/MIN 2.376 mls/hr IV.CONT TITRATE PRN Rx#:[id number] NS Inj 1,000 ML @ 30 mls/hr IV. 1000 / 1000 1000 / 1000 CONT .Q24H [facility] Rx#:[id number] Alburx 5% Inj 500 ML @ 250 mls/ 500 / 500 500 / 500 hr IV.SIG Q12H [facility] Rx#:[id number] Cubicin Inj 400 MG In NS Inj 100 / 100 100 ML @ 200 mls/hr IV.SIG Q48H [facility] Rx#:[id number] Zyvox 600 mg Premix 300 ML @ 600 / 600 300 mls/hr IV.SIG Q12H [facility] Rx#: [id number] Zosyn 2.25 GM Premix 50 ML @ 100 / 100 50 / 50 100 mls/hr IV.SIG Q8H [facility] Rx#: [id number] Oral 0 / 0 Output: Urine Amount (Catheter) 1000 / 1000 1400 / 1400 Indwelling Urethral Catheter 1000 / 1000 1400 / 1400 Chest Tube Drainage 1250 / 1250 120 / 120 Right 1250 / 1250 120 / 120 Other: Date of Last Bowel Movement 07/10/18 07/10/18 07/10/18 # Bowel Movements 0 Narrative: GENERAL: Sedated and intubated. SKIN: Warm and dry. NECK: Supple, trachea midline. No JVD. CARDIOVASCULAR: Regular rate and rhythm without murmurs, gallops, or rubs. RESPIRATORY: Breath sounds equal right-sided chest tube GASTROINTESTINAL: Abdomen soft, non-tender, nondistended. GENITOURINARY: Indwelling Culver catheter. MUSCULOSKELETAL: No cyanosis, 1+ edema. . - Urinary Catheter Management Indwelling Urethral Catheter Cath placed during this visit: yes Reason for continuing: Hourly intake/output Insertion date: 07/12/18 Insertion time: 07:45 <Edel Lantigua - Last Filed: 07/14/18 16:56> Vital signs: Vital Signs 07/16/18 19:00 07/16/18 20:00 07/16/18 21:00 Temperature 98.0 F Pulse Rate 78 75 75 Respiratory Rate 31 H 31 H 31 H Blood Pressure 155/73 H 152/70 H 153/70 H Pulse Oximetry 98 97 97 07/16/18 21:34 07/16/18 22:00 07/16/18 23:00 Temperature Pulse Rate 75 77 Respiratory Rate 21 25 H 20 Blood Pressure 141/65 H 156/72 H Pulse Oximetry 98 97 97 07/17/18 00:00 07/17/18 01:00 07/17/18 02:00 Temperature 98.2 F Pulse Rate 75 74 74 Respiratory Rate 18 16 19 Blood Pressure 155/72 H 157/71 H 157/72 H Pulse Oximetry 97 97 97 07/17/18 03:00 07/17/18 04:00 07/17/18 04:37 Temperature 98.1 F Pulse Rate 68 67 Respiratory Rate 15 16 16 Blood Pressure 154/71 H 155/72 H Pulse Oximetry 98 99 98 07/17/18 05:00 07/17/18 06:00 07/17/18 07:00 Temperature Pulse Rate 64 76 69 Respiratory Rate 15 32 H 21 Blood Pressure 154/71 H 149/68 H 151/68 H Pulse Oximetry 99 98 98 07/17/18 08:00 07/17/18 09:00 07/17/18 09:42 Temperature 97.4 F L Pulse Rate 70 68 Respiratory Rate 19 31 H 24 Blood Pressure 154/74 H 149/68 H Pulse Oximetry 98 97 97 07/17/18 10:00 07/17/18 11:00 07/17/18 11:32 Temperature Pulse Rate 69 70 Respiratory Rate 23 23 22 Blood Pressure 159/72 H 157/73 H Pulse Oximetry 97 97 97 07/17/18 12:00 07/17/18 13:00 07/17/18 14:00 Temperature 98.4 F Pulse Rate 72 73 71 Respiratory Rate 19 20 19 Blood Pressure 147/65 H 159/71 H 153/70 H Pulse Oximetry 96 97 97 07/17/18 15:00 07/17/18 16:00 07/17/18 17:00 Temperature 98.2 F Pulse Rate 72 69 72 Respiratory Rate 19 13 19 Blood Pressure 151/66 H 150/67 H 156/72 H Pulse Oximetry 96 96 97 07/17/18 17:38 07/17/18 18:00 Temperature 98.6 F Pulse Rate 71 Respiratory Rate 19 19 Blood Pressure 157/70 H Pulse Oximetry 97 97 Intake & Output 07/16/18 07/17/18 07/17/18 18:59 06:59 18:59 Intake Total 150 / 150 2800 / 2800 450 / 450 Output Total 2275 / 2275 2670 / 2670 3870 / 3870 Balance -2125 / -2125 130 / 130 -3420 / -3420 Weight 73.4 kg Intake: IV 150 / 150 2800 / 2800 450 / 450 Bumex Inj 25 mg In 100 ml @ 1 100 / 100 100 / 100 MG/HR 4 mls/hr IV.CONT .Q24H [facility] Rx#:[id number] Diprivan 1000 mg/100 ml Inj 1, 100 / 100 200 / 200 000 mg In 100 ml @ 5 MCG/KG/MIN 2.376 mls/hr IV.CONT TITRATE PRN Rx#:[id number] NS Inj 1,000 ML @ 30 mls/hr IV. 1000 / 1000 CONT .Q24H [facility] Rx#:[id number] Alburx 5% Inj 500 ML @ 250 mls/ 1000 / 1000 hr IV.SIG Q12H [facility] Rx#:[id number] Zyvox 600 mg Premix 300 ML @ 600 / 600 300 mls/hr IV.SIG Q12H [facility] Rx#: [id number] Zosyn 2.25 GM Premix 50 ML @ 50 / 50 100 / 100 50 / 50 100 mls/hr IV.SIG Q8H [facility] Rx#: [id number] KCl 20 mEq Premix Inj 20 meq In 100 / 100 100 ml @ 50 mls/hr IV.SIG Q2H [facility] Rx#:[id number] Oral 0 / 0 0 / 0 Output: Urine Amount (Catheter) 2225 / 2225 2650 / 2650 3800 / 3800 Indwelling Urethral Catheter 2225 / 2225 2650 / 2650 3800 / 3800 Chest Tube Drainage 50 / 50 20 / 20 70 / 70 Right 50 / 50 20 / 20 70 / 70 Other: Date of Last Bowel Movement 07/10/18 07/10/18 07/10/18 # Bowel Movements 0 0 0 - Urinary Catheter Management Indwelling Urethral Catheter Cath placed during this visit: no <Dina Rivas - Last Filed: 07/17/18 18:39> Assessment and Plan - Assessment (1) Acute kidney injury Code(s): N17.9 - Acute kidney failure, unspecified Status: Acute Plan: Acute kidney injury with possible need for cardiac cath and carotid endarterectomy. No previous history of chronic kidney disease. Creatinine started to increase on the 6th NEERU possible ATN from sepsis or contrast Nephropathy. Creatinine started to increase about 48 hours after receiving contrast. Also possibility of AIN with vancomycin use however random level not elevated. Urine EOS negative. CT of abdomen shows kidney with in normal limits. Recommend continue with albumin/Bumex drip his creatinine is essentially unchanged at 4.5, good urine output. Maintain strict I+O, indwelling Culver catheter. Avoid nephrotoxins, Will follow UOP and BMP. Labs in AM <Edel Lantigua - Last Filed: 07/14/18 16:56> - Assessment (1) Acute kidney injury Code(s): N17.9 - Acute kidney failure, unspecified Status: Acute Plan: Patient seen and examined, agree with above. Patient has NEERU, Creatinine almost same, continue diuretics and Albumin. <Dina Rvias - Last Filed: 07/17/18 18:39>
[2018-07-15] MEDS: Propofol 1000 mg/100 ml Inj 1,000 MG/100 ML BOTTLE IV.CONT PRN ×3 (00:46→22:08)
[2018-07-15] MEDS: Piperacil/Tazo 2.25 GM Premix 50 ML IV.SIG SCH ×3 (02:31→18:17)
[2018-07-15] MEDS: Albumin Human 5% Inj 500 ML IV.SIG SCH ×2 (02:31→14:38)
[2018-07-15] MEDS: Oral Hygiene Kit OROPHARYNG SCH ×3 (04:23→15:43)
[2018-07-15 09:16] LABS: Baso # (Auto) 0.1 th/mm3 (0.0-0.2); Baso % (Auto) 0.6 % (0.0-2.0); Eos # (Auto) 0.1 th/mm3 (0.0-0.4); Eos % (Auto) 0.8 % (0.0-4.0); Hematocrit 29.7 % (39.0-51.0); Hemoglobin 10.6 gm/dL (13.0-17.0); Lymph # (Auto) 1.1 th/mm3 (1.0-4.8); Lymph % (Auto) 9.9 % (9.0-44.0); Mean Corpuscular HGB Conc 35.7 % (32.0-36.0); Mean Corpuscular Hemoglobin 34.8 pg (27.0-34.0); Mean Corpuscular Volume 97.4 fL (80.0-100.0); Mono # (Auto) 1.6 th/mm3 (0.0-0.9); Mono % (Auto) 14.9 % (0.0-8.0); Neut % (Auto) 73.8 % (16.0-70.0); Platelet Count 56 th/mm3 (150-450); Red Blood Count 3.05 mil/mm3 (4.50-5.90); Red Cell Distribution Width 13.6 % (11.6-17.2); White Blood Count 10.8 th/mm3 (4.0-11.0)
[2018-07-15] MEDS: Pantoprazole Inj 40 MG Vial IV.PUSH SCH (09:27)
[2018-07-15] MEDS: Mupirocin 2% Nasal Oint Topical Syringe EACH NARE SCH ×2 (09:27→20:36)
[2018-07-15] MEDS: Chlorhexidine 0.12% Oral Kit 15 ML UDC OROPHARYNG SCH ×2 (09:27→20:36)
[2018-07-15 09:35] LABS: Alanine Aminotransferase 376 U/L (12-78); Anion Gap 13 meq/L (5-15); Aspartate Aminotransferase 135 U/L (15-37); Blood Urea Nitrogen 70 mg/dL (7-18); Calcium 8.3 mg/dL (8.5-10.1); Carbon Dioxide 25.1 meq/L (21.0-32.0); Chloride 103 meq/L (98-107); Glomerular Filtration Rate 13 mL/min (>89); Glucose,Random 108 mg/dL (74-106); Sodium 141 meq/L (136-145)
[2018-07-15 09:38] LABS: Alkaline Phosphatase 66 U/L (45-117); Total Protein 6.4 g/dL (6.4-8.2)
[2018-07-15 09:49] LABS: Potassium 2.7 meq/L (3.5-5.1)
[2018-07-15 10:00] LABS: Target Cells 1+; Toxic Granulation 1+
--- NOTE | 2018-07-15 10:01 | XR ---
EXAM DATE: 07/15/2018 9:44 AM EST AGE/SEX: 63 years / Male INDICATIONS: Respiratory Disease. CLINICAL DATA: This is the patient's subsequent encounter. Patient reports that signs and symptoms h ave been present for 1 week and indicates a pain score of Nonresponsive. MEDICAL/SURGICAL HISTORY: None. None. COMPARISON: [facility] [place], CHEST 1V SINGLE AP, 07/13/2018. . FINDINGS: A single AP semierect portable view the chest was obtained. The endotracheal tube remains in place wi th the tip 2 to 3 cm above the dolly. Hazy opacity remains in the left lung greatest in the perihila r region and left lung base with obscuration of left hemidiaphragm and blunting the costophrenic angl e. There is mild patchy opacity at the right lung base. CONCLUSION: 1. No significant change. Hazy opacity remains in the left lung 2. Mild patchy opacity remains at the right lung base. Electronically signed by: James Panda MD 07/15/2018 10:00 AM EST
--- NOTE | 2018-07-15 11:04 | P.PNCC ---
Subjective Subjective Remarks/Hospital Course: 63-year-old male. Admission 07/09/2018. Date of consultation 2017. Past medical history includes ongoing alcoholism. Urine tox screen on admission positive for cocaine and opiates. Patient originally fell from a single bed about 1 week ago. He did not seek treatment for his swollen left elbow. He is initially diagnosed here with a left olecranon fracture/ nondisplaced. Seen by Dr. Blanco recommended splint/immobilization. Follow-up outpatient with x-rays in 2 weeks. He was treated with alcoholism for on the [facility] protocol receiving multivitamin, folate and thiamine. During admission, patient had multiple complaints including right upper quadrant pain. Patient has CT his abdomen/pelvis revealed hepatic steatosis, pericholecystic fluid with no ductal dilatation. Ultrasound showed pericholecystic 6 with negative Lundy sign. Nuclear medicine scan revealed no activity in the intrahepatic ducts compatible ducts or small bowel. Likely slightly disease. Patient was evaluated by gastroenterology for this issue. BOBBY, AMA, ASMA, SSA a and B, Ronquillo, scleroderma and double-stranded DNA all pending. Negative hepatitis panel. Noted patient had angiogram of the abdomen which revealed no focal stenosis of the SMA, MIC or celiac. Patient elevated troponin. Was seen by Dr. chaudhry. Echocardiogram revealed EF 55-6%. PA P 43 mmHg. Trace to mild TR. Possibly demand ischemia due to sepsis. Was on aspirin. Did receive/placed on heparin drip. This is currently on hold due to coagulopathic state. Patient has gram-positive cocci in blood. Infectious disease has been counseled. Currently on vancomycin for comfort.) I repeated blood cultures, sputum and urine culture today. Patient is 80% right carotid artery stenosis. Followed by Dr. Bassett. Patient was transferred to ICU with persistent hypotension increasing lactic acidosis in the setting of acute liver injury. Worsening renal function. Patient has received 2.5 L normal saline the present time his blood pressure appears stable. Patient is currently denying abdominal pain. SUBJECTIVE: 07/11: Currently resting in bed and asking when he can go home. Creatinine is elevated 2.3. Will bolus with additional fluid. Echocardiogram results noted. 07/12: Negligible urine output overnight. Culver placed. Short of breath this morning. Not requiring pressors 07/13: Patient in respiratory distress tachypneic breathing 40 breaths/min. Intermittently desaturating to low 80s on nasal cannula. Very lethargic hardly protecting airway. Emergently intubated and placed on mechanical ventilation. Currently on Bumex infusion urine output improving. However BUN/creatinine was 49/4.53. Chest x-ray today shows extensive right-sided infiltrate. Chest x- ray on 07/12 shows extensive right-sided lower lobe infiltrate but was clear on 07/10/2018. Indicates probable aspiration pneumonia 07/14: Intubated and placed on mechanical ventilation yesterday for severe hypoxemic respiratory failure. After intubation right pigtail chest tube placed for large effusion. Last 24 hours 1.4 L drained. Currently on broad- spectrum antibiotics. Remains septic renal function stable creatinine 4.57. Remains on Bumex drip urine output 2.4 L in 24 hours 07/15: Intubated off sedation waking up moving extremities. Chest x-ray and bedside ultrasound shows moderate to large left pleural effusion. Remains on Bumex drip 2.8 L urine output in 24 hours. Plan for left thoracentesis today. Bilirubin noted to be finding 7.5 today probably cholestasis. Previous HIDA scan showed questionable common bile duct obstruction versus hepatobiliary disease. Reconsult GI for further evaluation may need MRCP Objective Vital Signs / I&O: Vital Signs 07/14/18 11:00 07/14/18 11:42 07/14/18 12:00 Temperature 98.7 F Pulse Rate 105 H 106 H 108 H Respiratory Rate 16 16 16 Blood Pressure 142/68 H 142/72 H Pulse Oximetry 94 L 96 94 L 07/14/18 13:00 07/14/18 14:00 07/14/18 15:00 Temperature Pulse Rate 110 H 108 H 106 H Respiratory Rate 16 16 16 Blood Pressure 146/73 H 151/70 H 149/72 H Pulse Oximetry 94 L 94 L 94 L 07/14/18 16:00 07/14/18 17:00 07/14/18 18:00 Temperature 98.3 F Pulse Rate 104 H 102 H 102 H Respiratory Rate 16 16 16 Blood Pressure 156/71 H 161/70 H 158/70 H Pulse Oximetry 94 L 94 L 94 L 07/14/18 19:00 07/14/18 20:00 07/14/18 21:00 Temperature 99.9 F H Pulse Rate 102 H 96 H 97 H Respiratory Rate 16 16 16 Blood Pressure 157/72 H 150/69 H 171/75 H Pulse Oximetry 94 L 93 L 94 L 07/14/18 22:00 07/14/18 23:00 07/15/18 00:00 Temperature 99.6 F Pulse Rate 100 H 97 H 96 H Respiratory Rate 16 16 16 Blood Pressure 136/69 136/65 137/65 Pulse Oximetry 93 L 93 L 93 L 07/15/18 00:21 07/15/18 01:00 07/15/18 02:00 Temperature Pulse Rate 93 H 92 H Respiratory Rate 16 16 16 Blood Pressure 142/66 H 138/65 Pulse Oximetry 93 L 93 L 94 L 07/15/18 03:00 07/15/18 04:00 07/15/18 04:24 Temperature 98.9 F Pulse Rate 92 H 87 Respiratory Rate 16 16 16 Blood Pressure 149/68 H 161/73 H Pulse Oximetry 94 L 94 L 94 L 07/15/18 08:00 07/15/18 08:51 Temperature 98.2 F Pulse Rate 80 Respiratory Rate 31 H Blood Pressure 161/73 H Pulse Oximetry 95 Intake & Output 07/14/18 07/15/18 07/15/18 18:59 06:59 18:59 Intake Total 2250 / 2250 1000 / 1000 Output Total 1560 / 1560 1370 / 1370 Balance 690 / 690 -370 / -370 Weight 76.4 kg Intake: IV 2250 / 2250 1000 / 1000 Bumex Inj 25 mg In 100 ml @ 1 200 / 200 MG/HR 4 mls/hr IV.CONT .Q24H [place] Rx#:[id number] Diprivan 1000 mg/100 ml Inj 1, 200 / 200 100 / 100 000 mg In 100 ml @ 5 MCG/KG/MIN 2.376 mls/hr IV.CONT TITRATE PRN Rx#:[id number] NS Inj 1,000 ML @ 30 mls/hr IV. 1000 / 1000 CONT .Q24H [facility] Rx#:[id number] Alburx 5% Inj 500 ML @ 250 mls/ 500 / 500 500 / 500 hr IV.SIG Q12H [place] Rx#:[id number] Zyvox 600 mg Premix 300 ML @ 300 / 300 300 / 300 300 mls/hr IV.SIG Q12H [facility] Rx#: [id number] Zosyn 2.25 GM Premix 50 ML @ 50 / 50 100 / 100 100 mls/hr IV.SIG Q8H [place] Rx#: [id number] Oral 0 / 0 Output: Urine Amount (Catheter) 1500 / 1500 1300 / 1300 Indwelling Urethral Catheter 1500 / 1500 1300 / 1300 Chest Tube Drainage 60 / 60 70 / 70 Right 60 / 60 70 / 70 Other: Date of Last Bowel Movement 07/10/18 07/10/18 07/10/18 # Bowel Movements 0 0 Result Diagrams: 07/15/18 09:04 07/15/18 09:04 Objective Remarks: GENERAL: 63-year-old male lying in bed intubated sedated SKIN: Warm and dry. HEAD: Atraumatic. Normocephalic. EYES: Pupils are unequal right 3 mm reactive left is 6 mm nonreactive ENT: Orotracheally intubated NECK: Trachea midline. No JVD. CARDIOVASCULAR: Regular rate and rhythm. S1, S2 no S4 RESPIRATORY: Air entry equal bilaterally minimal crackles at the bases. Right chest tube with 1.4 L removed GASTROINTESTINAL: Abdomen soft, non-tender, nondistended. Hepatic and splenic margins not palpable. MUSCULOSKELETAL: Extremities without clubbing, cyanosis, or edema. Left upper extremity currently in splint wrapped in Armen bandage NEUROLOGICAL: Patient is intubated sedated on sedation lightening patient does follow commands on bilateral upper extremities. Withdraws bilateral lower extremity. Pupils are unequal right 3 mm reactive left is 6 mm nonreactive Assessment and Plan - Assessment and Plan Plan: Neuro/Psych: Acute metabolic encephalopathy Anisocoria EtOH abuse Recent cocaine/opiate abuse -inhaled. Denies intravenous Propofol for sedation and vent synchrony after intubation Hold CIWA protocol initiated with Lorazepam/haloperidol as needed MVI/ folate. Patient states he inhaled cocaine 4-5 days ago. Denies IV drug use. Discontinued acetaminophen and related products with elevated transaminases Stat CT of the head for unequal pupil, negative for acute findings CV: Severe sepsis Lactic acidosis Elevated troponin likely demand ischemia Right carotid artery stenosis Elevated CPK On Bumex infusion Lactates decreased to 2.[address] chaudhry. No intervention planned 2D echocardiogram revealed Normal left ventricular size. Wall thickness is normal. The left ventricular systolic function is normal with an estimated ejection fraction in the range of 55-60%. Not on aspirin or heparin at this time due to thrombocytopenia Troponin trending downward. Followed by vascular surgery for right carotid artery stenosis 80%. Will need intervention when clinically stable. Resp: Acute hypoxemic respiratory failure Right lower lobe pneumonia with effusion Emphysematous type changes on CT neck Hyperammonemia Hypoalbuminemia Tobacco abuse Emergently intubated and placed on mechanical ventilation. PRVC/AC 07/13/2018 Bedside ultrasound shows large right pleural effusion, status post pigtail right chest tube with 1.4 L drained since placement on 07/13/2018 Plan for left thoracentesis today 07/15/2018 Vent bundle. Albuterol/ipratropium aerosols every 4 hours with albuterol aerosols every 2 hours as needed dyspnea Follow-up on chest x-ray and ABG Tobacco cessation will be encouraged GI: Elevated transaminases Elevated total bilirubin Poss acalc jody Hypoalbuminemia Noted CT abdomen/pelvis revealed possible early cholecystitis. Pericholecystic fluid. Ultrasound revealed negative Lundy sign. Nuclear medicine scan revealed no activity in the intrahepatic ductal compound bile duct or small bowel. 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 Patent MIC, celiac. Evaluated by gastroenterology. Hepatitis panel negative. Pending ceruloplasmin, BOBBY, AMA, ASMA, SSA AMB, anti-Ronquillo, RP, scleroderma, double-stranded DNA, hemochromatosis Currently on lactulose 30 cc 3 times daily for elevated ammonia. Start tube feeds with Nepro today after thoracentesis Endo: Sliding scale insulin with Accu-Cheks to maintain euglycemia/every 6 hours low regimen TSH 1. Cortisol 25 Renal: Acute kidney failure Culver catheter if indicated for accurate I's and O's in a critical patient with severe renal failure and on Bumex drip Good urine output on Bumex drip, 2.8 L in 24 hours BUN/creatinine elevated nephrology following. Creatinine is 4.58 today however nonoliguric urine eosinophils negative, Monitor urine output Avoid nephrotoxic medication. Discontinued vancomycin 07/11 Heme: Macrocytic anemia Thrombocytopenia Coagulopathic state Follow-up on PT/INR/PTT and fibrinogen No indication for transfusion of blood products at this time ID: MRSA bacteremia Septic shock Right lower lobe pneumonia/aspiration 2D transthoracic echocardiogram revealed no signs of endocarditis. Infectious disease following Currently on daptomycin and Zosyn. Zyvox added for gram-positive coverage for presumed pneumonia Sputum cx after intubation pending Pleural fluid studies no evidence of infection MSK: Left posterior olecranon fracture Followed by Dr. Blanco. Currently in splint immobilized. Follow-up in 2 weeks with x-rays CT left elbow today FEN: Replace electrolytes as clinically indicated Access -Utilize peripheral IV. Central line if indicated Prophylaxis -GI -pantoprazole -DVT-SCD/hold off chemical DVT prophylaxis due to severe thrombocytopenia Follow-up 35 minutes critical care time excluding procedures Patient is very critical intubated for worsening acute hypoxemic respiratory failure. There is evidence of aspiration. Care complicated based severe acute renal failure and sepsis
[2018-07-15] MEDS: DAPTOmycin Inj 400 MG in Sodium Chlor 0.9% Inj 100 ML IV.SIG SCH (11:12)
[2018-07-15] MEDS: Potassium Chlor 20 mEq Premix 20 MEQ/100 ML PIGGYBACK IV.SIG SCH ×2 (11:12→13:54)
[2018-07-15] MEDS: Bumetanide Inj 25 MG/100 ML BAG IV.CONT SCH (11:13)
--- NOTE | 2018-07-15 11:56 | P.PCN ---
Date of procedure: 07/15/18 Pre-op diagnosis: Respiratory failure large pleural effusion Post-op diagnosis: same Procedure: ultrasound-guided left thoracentesis Details of procedure: Consent obtained. The patient was laid in right lateral position. The left lateral chest wall was cleaned with ChloraPrep twice. Regional sterile drapes were applied. 1% lidocaine was used for local anesthesia and injected into the subcutaneous and deep muscle tissues at the site marked by ultrasound. A 0.25 cm skin incision was made with a scalpel blade. Thoracentesis Angiocath was placed angled superiorly and posteriorly and the insertion needle was entered into the pleural space superior to the rib and straw colored pleural fluid was obtained. The needle was removed and the Angiocath was connected to the Vacutainer and 650 mL of straw-colored pleural fluid was removed. Patient tolerated procedure well. Postprocedure chest x-ray is pending Anesthesia: local Surgeon: Shamar Simpson Estimated blood loss (mL): 1 Pathology: other (pl fluid studies) Condition: critical Disposition: ICU
--- NOTE | 2018-07-15 12:26 | P.DIET ---
Nutritional Evaluation Type of nutrition evaluation: initial Nutrition consult regarding: Tube Feeding Objective - Diagnosis CP with near syncope, r/o ACS, elevated liver enzymes - Objective % IBW: 91 (IBW = 148%) Body Weight Used for Calculations: Actual (admit wt 61.2 kg) Energy Needs - Lower Range (kCal/kg): 28 Energy Needs - Upper Range (kCal/kg): 32 Lower Limit kCal/kg (kCals): 1,714 Upper Limit kCal/kg (kCals): 1,958 Lower Limit Protein Factor (Grams per Kg): 1.0 Upper Limit Protein Factor (Grams per Kg): 1.5 Lower Protein Needs (Protein): 61 Upper Protein Needs (Protein): 92 Dietitian Reviewed in Medical Record: Curent medications, Intake & Output, Labs , Medical history, Tube feeding Diet Order: NPO Objective Comments: Labs: K 2.7, BUN/creat 70/4.58, Est GFR 13, LFTs elev Assessment Assessment: Pt was emergently intubated on 07/13. Current TF order is for Nepro @ 45 mls/hr. Please note that Nepro is formulated for pts on dialysis. Recommend Jevity 1.5 @ 50 mls/hr to provide 1800 kcals, 77 gms protein and 912 mls of free water. Renal labs noted, Nephrology following; pt with good urine ouput after Bumex. Additional kcals will be provided by propofol (1.1 kcal/ml). Recommendations: Jevity 1.5 @ 50 mls/hr goal Dietitian to Monitor: Lab values, Renal labs, Intake & Output, Tube feeding tolerance, Weight change, Medical course
--- NOTE | 2018-07-15 12:52 | XR ---
EXAM DATE: 07/15/2018 12:44 PM EST AGE/SEX: 63 years / Male INDICATIONS: Post left thoracentesis. CLINICAL DATA: This is the patient's subsequent encounter. Patient reports that signs and symptoms h ave been present for 1 week and indicates a pain score of Nonresponsive. MEDICAL/SURGICAL HISTORY: Non-responsive. Non-responsive. COMPARISON: [facility] [place]ST 1V SINGLE AP, 07/13/2018. . FINDINGS: A single AP semierect portable view of the chest was obtained. The previous noted left effusion has d ecreased in size with slight residual blunting of the costophrenic angle noted. The endotracheal tube remains in place with the tip 2 cm above the dolly. There are no confluent infiltrates. There is a small bore chest tube along the right medial lung base. The heart size remains within normal limits. The bony thorax is intact. CONCLUSION: 1. Interval decrease in left pleural effusion with no pneumothorax. 2. The small bore right-sided chest tube remains in place. Electronically signed by: James Panda MD 07/15/2018 12:50 PM EST
[2018-07-15 13:25] LABS: Total Protein,Pleural Fluid 1.4 gm/dL
[2018-07-15 13:34] LABS: RBC,Pleural Fluid 250 /mm3 (0-0)
[2018-07-15 13:36] LABS: Lymphocytes,Pleural Fluid 24 %; Mesothelial,Pleural Fluid 10 %; Monocytes,Pleural Fluid 54 %; Neutrophils,Pleural Fluid 12 %
--- NOTE | 2018-07-15 13:46 | P.PNID ---
Subjective Remarks: Patient is a 63-year-old male, presented to the hospital complaining of pain and swelling on his left elbow. He stated that he fell about a week ago but did not seek any treatment for his left elbow. He presented to the ED, and he was found to have a fracture of the olecranon on the left side. Patient also since admission has complained of some abdominal pain. He has known history of significant alcohol abuse. Imaging studies of the abdomen showed hepatic steatosis, pericholecystic fluid with no ductal dilatation. Ultrasound showed pericholecystic fluid with negative Lundy sign. He had a HIDA scan which showed no activity which could most likely be due to his liver disease. Patient also had a CTA as part of evaluation for his abdominal pain. That is okay. There were 2 blood cultures done in the ED, and they are now reported as growing MRSA. Patient has had some low-grade temps. Overnight he had persistent hypotension, and he was transferred to the ICU. Patient currently is on pressors. He is afebrile. He is still complaining of abdominal pain. He states he has chronic back pain which has not changed. He denies any shortness of breath. On this admission he was also found to have 80% right carotid artery stenosis, and vascular is following the patient. Echocardiograms not showing any obvious vegetation. His WBC is mildly elevated. He has an elevated lactic acid. His platelet count is low, fibrinogen is normal. Infectious disease consultation has been requested to assist with evaluation and treatment of his bacteremia. Notes reviewed Sedated on the vent Temps ok Creatinine rising, good UO Has CT R - fluid serous NO new (+) BC WBC normal Sputum ok CXR today better Urine for eos negative Antibiotics: Zosyn Cubicin Zyvox Lines: Line sites with no e.o infection Past Medical History: Tobacco and ETOH abuse Drug screen (+) cocaine (denies IVDU), admits to smoking Allergies/Adverse Reactions: Allergies No Known Allergies Allergy (Verified 07/08/18 12:30) Objective Vital Signs 07/14/18 14:00 07/14/18 15:00 07/14/18 16:00 Temperature 98.3 F Pulse Rate 108 H 106 H 104 H Respiratory Rate 16 16 16 Blood Pressure 151/70 H 149/72 H 156/71 H Pulse Oximetry 94 L 94 L 94 L 07/14/18 17:00 07/14/18 18:00 07/14/18 19:00 Temperature Pulse Rate 102 H 102 H 102 H Respiratory Rate 16 16 16 Blood Pressure 161/70 H 158/70 H 157/72 H Pulse Oximetry 94 L 94 L 94 L 07/14/18 20:00 07/14/18 21:00 07/14/18 22:00 Temperature 99.9 F H Pulse Rate 96 H 97 H 100 H Respiratory Rate 16 16 16 Blood Pressure 150/69 H 171/75 H 136/69 Pulse Oximetry 93 L 94 L 93 L 07/14/18 23:00 07/15/18 00:00 07/15/18 00:21 Temperature 99.6 F Pulse Rate 97 H 96 H Respiratory Rate 16 16 16 Blood Pressure 136/65 137/65 Pulse Oximetry 93 L 93 L 93 L 07/15/18 01:00 07/15/18 02:00 07/15/18 03:00 Temperature Pulse Rate 93 H 92 H 92 H Respiratory Rate 16 16 16 Blood Pressure 142/66 H 138/65 149/68 H Pulse Oximetry 93 L 94 L 94 L 07/15/18 04:00 07/15/18 04:24 07/15/18 05:00 Temperature 98.9 F Pulse Rate 87 85 Respiratory Rate 16 16 16 Blood Pressure 161/73 H 143/65 H Pulse Oximetry 94 L 94 L 94 L 07/15/18 06:00 07/15/18 07:00 07/15/18 08:00 Temperature 98.2 F Pulse Rate 82 81 79 Respiratory Rate 16 16 16 Blood Pressure 169/76 H 158/72 H 152/70 H Pulse Oximetry 94 L 95 94 L 07/15/18 08:51 07/15/18 09:00 07/15/18 10:00 Temperature Pulse Rate 87 85 Respiratory Rate 31 H 31 H 34 H Blood Pressure 169/80 H 167/76 H Pulse Oximetry 95 95 95 07/15/18 11:00 07/15/18 11:17 07/15/18 11:20 Temperature Pulse Rate 77 75 76 Respiratory Rate 26 H 26 H 24 Blood Pressure 152/70 H 168/73 H 165/74 H Pulse Oximetry 93 L 92 L 92 L 07/15/18 11:22 07/15/18 11:25 07/15/18 11:27 Temperature Pulse Rate 75 78 78 Respiratory Rate 27 H 25 H 33 H Blood Pressure 160/75 H 144/66 H 143/78 H Pulse Oximetry 92 L 96 99 07/15/18 11:30 07/15/18 11:32 07/15/18 11:35 Temperature Pulse Rate 79 77 75 Respiratory Rate 38 H 6 L 9 L Blood Pressure 134/69 147/76 H 157/79 H Pulse Oximetry 99 99 100 07/15/18 11:37 07/15/18 11:40 07/15/18 11:42 Temperature Pulse Rate 75 76 76 Respiratory Rate 25 H 5 L 30 H Blood Pressure 179/82 H 168/79 H 162/80 H Pulse Oximetry 99 99 100 07/15/18 11:45 07/15/18 11:47 07/15/18 11:50 Temperature Pulse Rate 76 75 75 Respiratory Rate 29 H 58 H 25 H Blood Pressure 173/77 H 161/67 H 161/72 H Pulse Oximetry 100 99 99 07/15/18 11:52 07/15/18 12:00 07/15/18 12:26 Temperature 97.8 F Pulse Rate 75 81 Respiratory Rate 25 H 30 H 16 Blood Pressure 166/74 H 181/80 H Pulse Oximetry 99 99 99 07/15/18 12:35 Temperature Pulse Rate 77 Respiratory Rate 16 Blood Pressure 152/69 H Pulse Oximetry 99 Intake & Output 07/14/18 07/15/18 07/15/18 18:59 06:59 18:59 Intake Total 2250 / 2250 1000 / 1000 100 / 100 Output Total 1560 / 1560 1370 / 1370 Balance 690 / 690 -370 / -370 100 / 100 Weight 76.4 kg Intake: IV 2250 / 2250 1000 / 1000 100 / 100 Bumex Inj 25 mg In 100 ml @ 1 200 / 200 100 / 100 MG/HR 4 mls/hr IV.CONT .Q24H [place] Rx#:[id number] Diprivan 1000 mg/100 ml Inj 1, 200 / 200 100 / 100 000 mg In 100 ml @ 5 MCG/KG/MIN 2.376 mls/hr IV.CONT TITRATE PRN Rx#:[id number] NS Inj 1,000 ML @ 30 mls/hr IV. 1000 / 1000 CONT .Q24H [facility] Rx#:[id number] Alburx 5% Inj 500 ML @ 250 mls/ 500 / 500 500 / 500 hr IV.SIG Q12H [place] Rx#:[id number] Zyvox 600 mg Premix 300 ML @ 300 / 300 300 / 300 300 mls/hr IV.SIG Q12H [place] Rx#: [id number] Zosyn 2.25 GM Premix 50 ML @ 50 / 50 100 / 100 100 mls/hr IV.SIG Q8H [place] Rx#: [id number] Oral 0 / 0 Output: Urine Amount (Catheter) 1500 / 1500 1300 / 1300 Indwelling Urethral Catheter 1500 / 1500 1300 / 1300 Chest Tube Drainage 60 / 60 70 / 70 Right 60 / 60 70 / 70 Other: Date of Last Bowel Movement 07/10/18 07/10/18 07/10/18 # Bowel Movements 0 0 07/15/18 11:45 Fluid - Pleural fluid Gram Stain - Pending 07/15/18 11:45 Fluid - Pleural fluid Body Fluid Culture - Pending 07/10/18 11:15 Blood - Peripheral Aerobic Blood Culture - Final No growth in 5 days 07/10/18 11:15 Blood - Peripheral Anaerobic Blood Culture - Final No growth in 5 days 07/10/18 11:20 Blood - Peripheral Aerobic Blood Culture - Final No growth in 5 days 07/10/18 11:20 Blood - Peripheral Anaerobic Blood Culture - Final No growth in 5 days 07/13/18 07:35 Sputum - Endotracheal Gram Stain - Final 07/13/18 07:35 Sputum - Endotracheal Sputum Culture - Final Rare growth normal respiratory marie 07/13/18 08:55 Fluid - Pleural fluid Gram Stain - Final 07/13/18 08:55 Fluid - Pleural fluid Body Fluid Culture - Preliminary No growth in 48 hours 07/13/18 08:55 Fluid - Pleural fluid Acid Fast Bacilli Smear - Final No acid fast bacilli seen 07/13/18 08:55 Fluid - Pleural fluid Mycobacterial Culture - Pending 07/08/18 19:35 Blood - Peripheral Aerobic Blood Culture - Final S. aureus MRSA 07/08/18 19:35 Blood - Peripheral Anaerobic Blood Culture - Final Staphylococcus coag negative 07/13/18 08:55 Fluid - Pleural fluid Fungal Smear - Final No fungal elements seen 07/13/18 08:55 Fluid - Pleural fluid Fungal Culture - Pending Lab - Hematology Results 07/14/18 07/15/18 05:32 09:04 WBC 8.7 10.8 RBC 2.82 L 3.05 L Hgb 9.6 L 10.6 L Hct 27.2 L 29.7 L MCV 96.3 97.4 MCH 34.1 H 34.8 H MCHC 35.4 35.7 RDW 13.5 13.6 Plt Count 45 L 56 L MPV 11.1 H 11.0 Prelim Diff (Auto) Slide review pending Neut % (Auto) 73.8 H Lymph % (Auto) 9.9 [place] % (Auto) 14.9 H Eos % (Auto) 0.8 Baso % (Auto) 0.6 Neut # (Auto) 8.0 H Lymph # (Auto) 1.1 [place] # (Auto) 1.6 H Eos # (Auto) 0.1 Baso # (Auto) 0.1 WBC Differential . Diff Scan Auto diff confirmed Differential Comment . Toxic Granulation 1+ H Platelet Estimate Low L Platelet Morphology Enlarged H Basophilic Stippling Faint H Target Cells 1+ H Lab - Chemistry Results 07/14/18 07/15/18 07/15/18 05:32 09:04 09:44 Sodium 141 141 Potassium 3.3 L 2.7 L* Chloride 102 103 Carbon Dioxide 24.6 25.1 Anion Gap 14 13 BUN 58 H 70 H Creatinine 4.57 H 4.58 H Estimated GFR 13 L 13 L POC Glucose 122 H Random Glucose 106 108 H Calcium 8.0 L 8.3 L Magnesium 2.5 Total Bilirubin 5.7 H 7.5 H AST 211 H 135 H ALT 525 H 376 H Alkaline Phosphatase 63 66 Total Protein 6.0 L 6.4 Albumin 3.1 L 3.0 L Imaging: ITS Impressions Elbow X-Ray 07/08/18 18:01 CONCLUSION: 1. Small, mildly displaced olecranon avulsion fracture fragments of the triceps insertion with associated soft tissue swelling. 2. Joint effusion. No perceptible intra-articular fracture. No subluxation. Abdomen/Pelvis CT 07/08/18 18:02 CONCLUSION: 1. Severe fatty infiltration of the liver. 2. Apparent pericholecystic fluid. Also fairly robust enhancement of the gallbladder mucosa. Please correlate clinically for any evidence of cholecystitis. No stones or ductal dilatation demonstrated. Gallbladder Ultrasound 07/08/18 18:53 CONCLUSION: 1. Small, nonspecific pericholecystic fluid without stones, wall thickening or sonographic Lundy's sign. The fluid may be on the basis of hepatocellular disease. The ultrasound does not support acute cholecystitis. 2. Fatty infiltrated and mildly enlarged liver. Carotid Doppler Study 07/09/18 00:00 CONCLUSION: 1. Right Internal Carotid Artery: Findings indicate >70% stenosis, but less than near occlusion. 2. Left Internal Carotid Artery: Findings indicate <50% stenosis. Hepatobiliary Scan Nuclear Medicine 07/09/18 14:22 CONCLUSION: 1. No activity in intrahepatic ducts, common duct or small bowel. Considerations include include acute obstruction of the common duct and diffuse hepatocellular disease. 2. CT scan shows no dilatation of the common duct or intrahepatic ducts. Diffuse hepatocellular disease is suspected. Neck CTA 07/10/18 00:00 CONCLUSION: 1. 80% stenosis of the proximal right ICA. Left carotid and bilateral vertebral arteries are patent. 2. Emphysematous changes. Abdomen/Pelvis CTA 07/10/18 00:08 CONCLUSION: 1. 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 The SMA and MIC are patent. 2. Hepatic steatosis. 3. Emphysematous changes. Abdomen/Bladder Ultrasound 07/11/18 00:00 CONCLUSION: 1. Normal ultrasound appearance of the kidneys. 2. Other findings include hepatic steatosis and left pleural effusion. Elbow CT 07/11/18 00:00 CONCLUSION: 1. Small fracture fragment off the olecranon. 2. There is subcutaneous edema identified posterior to the elbow with soft tissue swelling. Head CT 07/13/18 00:00 CONCLUSION: 1. No acute intracranial abnormality. 2. Atrophy. . Chest X-Ray 07/15/18 08:57 CONCLUSION: 1. No significant change. Hazy opacity remains in the left lung 2. Mild patchy opacity remains at the right lung base. Physical Exam: GENERAL: Sedated on the vent, NAD SKIN: Cool and dry. No generalized rash, no ecchymoses. HEAD: Atraumatic. Normocephalic. No temporal wasting, or tenderness. EYES: [place] conjunctiva. No petechia or hemorrhage. Pupils equal, round and reactive to light. Has mild injection ENT: Intubated CARDIOVASCULAR: Regular rate and rhythm. RESPIRATORY: Decreased BS at bases ABDOMEN: Soft, no response to palpation EXTREMITIES: No clubbing, cyanosis. Mild pedal edema. Has posterior splint in his whole LUE NEUROLOGICAL: Pupils unequal left > right. PSYCHIATRIC: Unable to assess LINE: No evidence of infection Assessment and Plan - Plan Impression MRSA sepsis ? olecranon trauma as entry point for MRSA MRSA bacteremia, ? endocarditis Shock, resolved Known ETOH abuse and tobacco abuse Denies IVDU, admits to smoking cocaine ETOH liver disease Elevated LFT Thrombocytopenia Acute renal failure: sepsis, contrast, meds. Respiratory failure Pleural effusion, has CT - fluid transudative Recommendation continue Cubicin for now for MRSA bacteremia Continue Zosyn ?aspiration prior to intubation. Continue Zyvox Follow C/S Follow temps Monitor progress
--- NOTE | 2018-07-15 14:24 | P.PNCA ---
Subjective Interval history: Patient is currently intubated and sedated. Appears to be in no acute distress at this time. Medications and Allergies Allergies Allergy/AdvReac Type Severity Reaction Status Date / Time No Known Allergies Allergy Verified 07/08/18 12:30 Home Medications Medication Instructions Recorded Confirmed Type No Known Home Medications 07/08/18 07/08/18 History Active Medications: Active Medications Al Hydroxide/Mg Hydroxide (Milk Of Magnjeb Liq) 30 ml PO Q12H PRN PRN Reason: Mild Constipation Albuterol (Albuterol Neb (Prn)) 2.5 mg NEB Q2HR NEB PRN PRN Reason: DYSPNEA Albuterol (Duoneb Neb (Prn)) 1 ampul NEB Q2HR NEB PRN PRN Reason: SHORTNESS OF BREATH Last Admin: 07/14/18 08:20 Dose: 1 ampul Chlorhexidine Gluconate (Peridex 0.12% Oral Kit) 15 ml OROPHARYNG BID@0800, 2000 [facility] Last Admin: 07/15/18 09:27 Dose: 15 ml Flumazenil (Romazecon Inj) 0.2 mg IV.PUSH Q1M PRN PRN Reason: OVERSEDATION Haloperidol Lactate (Haldol Inj) 1 mg IV.PUSH Q15M PRN PRN Reason: for severe agitation Hydralazine HCl (Apresoline Inj) 10 mg IV.PUSH Q1H PRN PRN Reason: Sys Bp Greater Than 165 [facility] Last Admin: 07/14/18 21:17 Dose: 10 mg Daptomycin 400 mg/ Sodium (Chloride) 100 mls @ 200 mls/hr IV.SIG Q48H [facility] Last Admin: 07/15/18 11:12 Dose: 200 mls/hr Piperacillin/Tazobactam/Dextrose (Zosyn 2.25 Gm Premix) 50 mls @ 100 mls/hr IV.SIG Q8H [facility] Last Infusion: 07/15/18 10:53 Dose: Infused Sodium Chloride (Ns Inj) 1,000 mls @ 30 mls/hr IV.CONT .Q24H [facility] Last Admin: 07/14/18 08:57 Dose: 30 mls/hr Bumetanide (Bumex Inj) 25 mg in 100 mls @ 4 mls/hr IV.CONT .Q24H [facility] Last Admin: 07/15/18 11:13 Dose: 1 mg/hr, 4 mls/hr Albumin Human (Alburx 5% Inj) 500 mls @ 250 mls/hr IV.SIG Q12H [facility] Last Infusion: 07/15/18 04:31 Dose: Infused Propofol (Diprivan 1000 Mg/100 Ml Inj) 1,000 mg in 100 mls @ 2.376 mls/hr IV.CONT TITRATE PRN; Protocol PRN Reason: Per Protocol Last Admin: 07/15/18 00:46 Dose: 20 mcg/kg/min, 9.5 mls/hr Linezolid (Zyvox 600 Mg Premix) 300 mls @ 300 mls/hr IV.SIG Q12H [facility] Last Infusion: 07/15/18 06:08 Dose: Infused Potassium Chloride (Kcl 20 Meq Premix Inj) 20 meq in 100 mls @ 50 mls/hr IV.SIG Q2H [facility] Stop: 07/15/18 14:44 Last Admin: 07/15/18 13:54 Dose: 50 mls/hr Labetalol HCl (Trandate Inj) 10 mg IV.PUSH Q1H PRN PRN Reason: Sbp>165, Dbp>90, Hr>65 Lactulose (Lactulose Liq) 30 ml PO DAILY PRN PRN Reason: SEVERE CONSITIPATION Lactulose (Lactulose Liq) 30 ml PO TID [facility] Last Admin: 07/15/18 13:55 Dose: Not Given Lorazepam (Ativan) 1 mg PO Q4H PRN PRN Reason: for CIWA 8-10 Lorazepam (Ativan) 2 mg PO Q2H PRN PRN Reason: for CIWA 11-14 Lorazepam (Ativan Inj) 2 mg IV.PUSH Q2H PRN PRN Reason: for CIWA 11-14 Last Admin: 07/12/18 23:49 Dose: 2 mg Lorazepam (Ativan Inj) 2 mg IV.PUSH Q1H PRN PRN Reason: for CIWA 15-20 Last Admin: 07/11/18 21:37 Dose: 2 mg Lorazepam (Ativan Inj) 2 mg IV.PUSH Q15M PRN PRN Reason: for CIWA > 20 Lorazepam (Ativan Inj) 1 mg IV.PUSH Q4H PRN PRN Reason: for CIWA 8-10 Last Admin: 07/12/18 10:48 Dose: 1 mg Miscellaneous Medication () 1 each OROPHARYNG 0000,0400,1200,1600 [facility] Last Admin: 07/15/18 13:53 Dose: 1 each Morphine Sulfate (Morphine Inj) 2 mg IV.PUSH Q4H PRN PRN Reason: BREAKTHROUGH PAIN Last Admin: 07/13/18 03:32 Dose: 2 mg Mupirocin (Bactroban 2% Nasal Oint) 1 applicatio EACH NARE BID [facility] Last Admin: 07/15/18 09:27 Dose: 1 applicatio Naloxone HCl (Narcan Inj) 0.4 mg IV.PUSH UNSCH PRN PRN Reason: SEE LABEL COMMENTS Ondansetron HCl (Zofran Inj) 4 mg IV.PUSH Q6H PRN PRN Reason: NAUSEA OR VOMITING Pantoprazole Sodium (Protonix Inj) 40 mg IV.PUSH DAILY [facility] Last Admin: 07/15/18 09:27 Dose: 40 mg Sennosides (Senokot) 17.2 mg PO Q12H PRN PRN Reason: Moderate Constipation Sodium Chloride (Ns Flush) 2 ml IV.FLUSH PRN PRN PRN Reason: FLUSH AFTER USING IV ACCESS Sodium Chloride (Ns Flush) 2 ml IV.FLUSH BID [facility] Last Admin: 07/15/18 09:28 Dose: 2 ml Physical Exam Vital signs: Vital Signs 07/14/18 15:00 07/14/18 16:00 07/14/18 17:00 Temperature 98.3 F Pulse Rate 106 H 104 H 102 H Respiratory Rate 16 16 16 Blood Pressure 149/72 H 156/71 H 161/70 H Pulse Oximetry 94 L 94 L 94 L 07/14/18 18:00 07/14/18 19:00 07/14/18 20:00 Temperature 99.9 F H Pulse Rate 102 H 102 H 96 H Respiratory Rate 16 16 16 Blood Pressure 158/70 H 157/72 H 150/69 H Pulse Oximetry 94 L 94 L 93 L 07/14/18 21:00 07/14/18 22:00 07/14/18 23:00 Temperature Pulse Rate 97 H 100 H 97 H Respiratory Rate 16 16 16 Blood Pressure 171/75 H 136/69 136/65 Pulse Oximetry 94 L 93 L 93 L 07/15/18 00:00 07/15/18 00:21 07/15/18 01:00 Temperature 99.6 F Pulse Rate 96 H 93 H Respiratory Rate 16 16 16 Blood Pressure 137/65 142/66 H Pulse Oximetry 93 L 93 L 93 L 07/15/18 02:00 07/15/18 03:00 07/15/18 04:00 Temperature 98.9 F Pulse Rate 92 H 92 H 87 Respiratory Rate 16 16 16 Blood Pressure 138/65 149/68 H 161/73 H Pulse Oximetry 94 L 94 L 94 L 07/15/18 04:24 07/15/18 05:00 07/15/18 06:00 Temperature Pulse Rate 85 82 Respiratory Rate 16 16 16 Blood Pressure 143/65 H 169/76 H Pulse Oximetry 94 L 94 L 94 L 07/15/18 07:00 07/15/18 08:00 07/15/18 08:51 Temperature 98.2 F Pulse Rate 81 79 Respiratory Rate 16 16 31 H Blood Pressure 158/72 H 152/70 H Pulse Oximetry 95 94 L 95 07/15/18 09:00 07/15/18 10:00 07/15/18 11:00 Temperature Pulse Rate 87 85 77 Respiratory Rate 31 H 34 H 26 H Blood Pressure 169/80 H 167/76 H 152/70 H Pulse Oximetry 95 95 93 L 07/15/18 11:17 07/15/18 11:20 07/15/18 11:22 Temperature Pulse Rate 75 76 75 Respiratory Rate 26 H 24 27 H Blood Pressure 168/73 H 165/74 H 160/75 H Pulse Oximetry 92 L 92 L 92 L 07/15/18 11:25 07/15/18 11:27 07/15/18 11:30 Temperature Pulse Rate 78 78 79 Respiratory Rate 25 H 33 H 38 H Blood Pressure 144/66 H 143/78 H 134/69 Pulse Oximetry 96 99 99 07/15/18 11:32 07/15/18 11:35 07/15/18 11:37 Temperature Pulse Rate 77 75 75 Respiratory Rate 6 L 9 L 25 H Blood Pressure 147/76 H 157/79 H 179/82 H Pulse Oximetry 99 100 99 07/15/18 11:40 07/15/18 11:42 07/15/18 11:45 Temperature Pulse Rate 76 76 76 Respiratory Rate 5 L 30 H 29 H Blood Pressure 168/79 H 162/80 H 173/77 H Pulse Oximetry 99 100 100 07/15/18 11:47 07/15/18 11:50 07/15/18 11:52 Temperature Pulse Rate 75 75 75 Respiratory Rate 58 H 25 H 25 H Blood Pressure 161/67 H 161/72 H 166/74 H Pulse Oximetry 99 99 99 07/15/18 12:00 07/15/18 12:26 07/15/18 12:35 Temperature 97.8 F Pulse Rate 81 77 Respiratory Rate 30 H 16 16 Blood Pressure 181/80 H 152/69 H Pulse Oximetry 99 99 99 07/15/18 13:00 Temperature Pulse Rate 80 Respiratory Rate 16 Blood Pressure 153/73 H Pulse Oximetry 99 Intake & Output 07/14/18 07/15/18 07/15/18 18:59 06:59 18:59 Intake Total 2250 / 2250 1000 / 1000 250 / 250 Output Total 1560 / 1560 1370 / 1370 Balance 690 / 690 -370 / -370 250 / 250 Weight 76.4 kg Intake: IV 2250 / 2250 1000 / 1000 250 / 250 Bumex Inj 25 mg In 100 ml @ 1 200 / 200 100 / 100 MG/HR 4 mls/hr IV.CONT .Q24H [facility] Rx#:[id number] Diprivan 1000 mg/100 ml Inj 1, 200 / 200 100 / 100 000 mg In 100 ml @ 5 MCG/KG/MIN 2.376 mls/hr IV.CONT TITRATE PRN Rx#:[id number] NS Inj 1,000 ML @ 30 mls/hr IV. 1000 / 1000 CONT .Q24H [facility] Rx#:[id number] Alburx 5% Inj 500 ML @ 250 mls/ 500 / 500 500 / 500 hr IV.SIG Q12H [facility] Rx#:[id number] Zyvox 600 mg Premix 300 ML @ 300 / 300 300 / 300 300 mls/hr IV.SIG Q12H [facility] Rx#: [id number] Zosyn 2.25 GM Premix 50 ML @ 50 / 50 100 / 100 50 / 50 100 mls/hr IV.SIG Q8H [facility] Rx#: [id number] KCl 20 mEq Premix Inj 20 meq In 100 / 100 100 ml @ 50 mls/hr IV.SIG Q2H [facility] Rx#:[id number] Oral 0 / 0 Output: Urine Amount (Catheter) 1500 / 1500 1300 / 1300 Indwelling Urethral Catheter 1500 / 1500 1300 / 1300 Chest Tube Drainage 60 / 60 70 / 70 Right 60 / 60 70 / 70 Other: Date of Last Bowel Movement 07/10/18 07/10/18 07/10/18 # Bowel Movements 0 0 - Constitutional no acute distress - Routine HEENT Exam Head: Present: normocephalic ENT: Present: mucous membranes moist Comments: Chronic dilation of the left pupil - Routine Neck Exam Present: supple - Routine Respiratory Exam Present: patient mechanically ventilated, decreased breath sounds - Routine Cardiovascular Exam Present: S1, S2. Absent: murmur, gallop, rubs - Routine Abdominal Exam Present: normoactive bowel sounds - Routine Extremities Exam Present: pulses intact, normal capillary refill. Absent: cyanosis, clubbing, edema - Routine Skin Exam Present: intact - Routine Neurological Exam sedated - Detailed Neurological Exam: Coma Scale Eye Opening: None Verbal Response: None Motor Response: None Tamera Coma Scale Total: 3 - Routine Psychiatric Exam Present: unable to assess - Urinary Catheter Management Indwelling Urethral Catheter Cath placed during this visit: yes Reason for continuing: Hourly intake/output Insertion date: 07/12/18 Insertion time: 07:45 Results 07/15/18 09:04 07/15/18 09:04 Cardiac Enzymes 07/14/18 07/15/18 Range/Units 05:32 09:04 AST 211 H 135 H (15-37) U/L CBC 07/14/18 07/15/18 Range/Units 05:32 09:04 WBC 8.7 10.8 (4.0-11.0) th/mm3 RBC 2.82 L 3.05 L (4.50-5.90) mil/mm3 Hgb 9.6 L 10.6 L (13.0-17.0) gm/dL Hct 27.2 L 29.7 L (39.0-51.0) % Plt Count 45 L 56 L (150-450) th/mm3 Neut # (Auto) 8.0 H (1.8-7.7) th/mm3 Lymph # (Auto) 1.1 (1.0-4.8) th/mm3 Scurry # (Auto) 1.6 H (0.0-0.9) th/mm3 Eos # (Auto) 0.1 (0.0-0.4) th/mm3 Baso # (Auto) 0.1 (0.0-0.2) th/mm3 Comprehensive Metabolic Panel 07/14/18 07/15/18 Range/Units 05:32 09:04 Sodium 141 141 (136-145) meq/L Potassium 3.3 L 2.7 L* (3.5-5.1) meq/L Chloride 102 103 (98-107) meq/L Carbon Dioxide 24.6 25.1 (21.0-32.0) meq/L BUN 58 H 70 H (7-18) mg/dL Creatinine 4.57 H 4.58 H (0.60-1.30) mg/dL Calcium 8.0 L 8.3 L (8.5-10.1) mg/dL AST 211 H 135 H (15-37) U/L ALT 525 H 376 H (12-78) U/L Alkaline Phosphatase 63 66 (45-117) U/L Total Protein 6.0 L 6.4 (6.4-8.2) g/dL Albumin 3.1 L 3.0 L (3.4-5.0) g/dL Intake and Output 07/14/18 07/15/18 07/15/18 22:59 06:59 14:59 Intake Total 950 / 950 950 / 950 250 / 250 Output Total 1560 / 1560 1370 / 1370 Balance -610 / -610 -420 / -420 250 / 250 Intake: IV 950 / 950 950 / 950 250 / 250 Bumex Inj 25 mg In 100 ml @ 1 100 / 100 MG/HR 4 mls/hr IV.CONT .Q24H [facility] Rx#:[id number] Diprivan 1000 mg/100 ml Inj 1, 100 / 100 100 / 100 000 mg In 100 ml @ 5 MCG/KG/MIN 2.376 mls/hr IV.CONT TITRATE PRN Rx#:[id number] Alburx 5% Inj 500 ML @ 250 mls/ 500 / 500 500 / 500 hr IV.SIG Q12H [facility] Rx#:[id number] Zyvox 600 mg Premix 300 ML @ 300 / 300 300 / 300 300 mls/hr IV.SIG Q12H [facility] Rx#: [id number] Zosyn 2.25 GM Premix 50 ML @ 50 / 50 50 / 50 50 / 50 100 mls/hr IV.SIG Q8H [facility] Rx#: [id number] KCl 20 mEq Premix Inj 20 meq In 100 / 100 100 ml @ 50 mls/hr IV.SIG Q2H [facility] Rx#:[id number] Oral 0 / 0 Output: Urine Amount (Catheter) 1500 / 1500 1300 / 1300 Indwelling Urethral Catheter 1500 / 1500 1300 / 1300 Chest Tube Drainage 60 / 60 70 / 70 Right 60 / 60 70 / 70 Other: Date of Last Bowel Movement 07/10/18 07/10/18 07/10/18 # Bowel Movements 0 0 Weight 76.4 kg - Imaging and Cardiology Imaging: Impressions Head CT 07/13/18 00:00 CONCLUSION: 1. No acute intracranial abnormality. 2. Atrophy. . Chest X-Ray 07/15/18 00:00 CONCLUSION: 1. Interval decrease in left pleural effusion with no pneumothorax. 2. The small bore right-sided chest tube remains in place. Chest X-Ray 07/15/18 08:57 CONCLUSION: 1. No significant change. Hazy opacity remains in the left lung 2. Mild patchy opacity remains at the right lung base. Assessment and Plan - Assessment (1) Chest pain Code(s): R07.9 - Chest pain, unspecified Status: Acute (2) Elevated troponin level Code(s): R74.8 - Abnormal levels of other serum enzymes Status: Acute (3) Liver failure Code(s): K72.90 - Hepatic failure, unspecified without coma Status: Acute (4) Hyperbilirubinemia Code(s): E80.6 - Other disorders of bilirubin metabolism Status: Acute - Plan Patient remains stable from a cardiac standpoint. We will continue with current cardiac treatment plan including conservative management for his recent NSTEMI. Lab work today shows slightly worse renal function and a decreased potassium level, renal evaluation in progress. ID evaluation in progress, patient on contact isolation. Continue ICU care. Wean vent as tolerated. We will continue to monitor the patient during his hospitalization. The patient was seen and evaluated by Dr. Gonzalez who participated in care, management and decision making. - Attending Attestation Patient seen and examined. I reviewed and agree with the evaluation and plan as presented. Continue ICU care. Continue current program post LA. Wean vent as tolerated. Nephrology evaluation.
--- NOTE | 2018-07-15 15:42 | P.PNNP ---
Subjective Interval history: Remains intubated on sedation. Creatinine remains elevated at 4.58, potassium at 2.7, non oliguric. On bumex gtt. <ConradoteeEdel - Last Filed: 07/15/18 15:38> Physical Exam Vital signs: Vital Signs 07/14/18 16:00 07/14/18 17:00 07/14/18 18:00 Temperature 98.3 F Pulse Rate 104 H 102 H 102 H Respiratory Rate 16 16 16 Blood Pressure 156/71 H 161/70 H 158/70 H Pulse Oximetry 94 L 94 L 94 L 07/14/18 19:00 07/14/18 20:00 07/14/18 21:00 Temperature 99.9 F H Pulse Rate 102 H 96 H 97 H Respiratory Rate 16 16 16 Blood Pressure 157/72 H 150/69 H 171/75 H Pulse Oximetry 94 L 93 L 94 L 07/14/18 22:00 07/14/18 23:00 07/15/18 00:00 Temperature 99.6 F Pulse Rate 100 H 97 H 96 H Respiratory Rate 16 16 16 Blood Pressure 136/69 136/65 137/65 Pulse Oximetry 93 L 93 L 93 L 07/15/18 00:21 07/15/18 01:00 07/15/18 02:00 Temperature Pulse Rate 93 H 92 H Respiratory Rate 16 16 16 Blood Pressure 142/66 H 138/65 Pulse Oximetry 93 L 93 L 94 L 07/15/18 03:00 07/15/18 04:00 07/15/18 04:24 Temperature 98.9 F Pulse Rate 92 H 87 Respiratory Rate 16 16 16 Blood Pressure 149/68 H 161/73 H Pulse Oximetry 94 L 94 L 94 L 07/15/18 05:00 07/15/18 06:00 07/15/18 07:00 Temperature Pulse Rate 85 82 81 Respiratory Rate 16 16 16 Blood Pressure 143/65 H 169/76 H 158/72 H Pulse Oximetry 94 L 94 L 95 07/15/18 08:00 07/15/18 08:51 07/15/18 09:00 Temperature 98.2 F Pulse Rate 79 87 Respiratory Rate 16 31 H 31 H Blood Pressure 152/70 H 169/80 H Pulse Oximetry 94 L 95 95 07/15/18 10:00 07/15/18 11:00 07/15/18 11:17 Temperature Pulse Rate 85 77 75 Respiratory Rate 34 H 26 H 26 H Blood Pressure 167/76 H 152/70 H 168/73 H Pulse Oximetry 95 93 L 92 L 07/15/18 11:20 07/15/18 11:22 07/15/18 11:25 Temperature Pulse Rate 76 75 78 Respiratory Rate 24 27 H 25 H Blood Pressure 165/74 H 160/75 H 144/66 H Pulse Oximetry 92 L 92 L 96 07/15/18 11:27 07/15/18 11:30 07/15/18 11:32 Temperature Pulse Rate 78 79 77 Respiratory Rate 33 H 38 H 6 L Blood Pressure 143/78 H 134/69 147/76 H Pulse Oximetry 99 99 99 07/15/18 11:35 07/15/18 11:37 07/15/18 11:40 Temperature Pulse Rate 75 75 76 Respiratory Rate 9 L 25 H 5 L Blood Pressure 157/79 H 179/82 H 168/79 H Pulse Oximetry 100 99 99 07/15/18 11:42 07/15/18 11:45 07/15/18 11:47 Temperature Pulse Rate 76 76 75 Respiratory Rate 30 H 29 H 58 H Blood Pressure 162/80 H 173/77 H 161/67 H Pulse Oximetry 100 100 99 07/15/18 11:50 07/15/18 11:52 07/15/18 12:00 Temperature 97.8 F Pulse Rate 75 75 81 Respiratory Rate 25 H 25 H 30 H Blood Pressure 161/72 H 166/74 H 181/80 H Pulse Oximetry 99 99 99 07/15/18 12:26 07/15/18 12:35 07/15/18 13:00 Temperature Pulse Rate 77 80 Respiratory Rate 16 16 16 Blood Pressure 152/69 H 153/73 H Pulse Oximetry 99 99 99 07/15/18 14:00 07/15/18 15:00 Temperature Pulse Rate 76 77 Respiratory Rate 16 23 Blood Pressure 164/78 H 167/79 H Pulse Oximetry 99 100 Intake & Output 07/14/18 07/15/18 07/15/18 18:59 06:59 18:59 Intake Total 2250 / 2250 1000 / 1000 250 / 250 Output Total 1560 / 1560 1370 / 1370 Balance 690 / 690 -370 / -370 250 / 250 Weight 76.4 kg Intake: IV 2250 / 2250 1000 / 1000 250 / 250 Bumex Inj 25 mg In 100 ml @ 1 200 / 200 100 / 100 MG/HR 4 mls/hr IV.CONT .Q24H [facility] Rx#:[id number] Diprivan 1000 mg/100 ml Inj 1, 200 / 200 100 / 100 000 mg In 100 ml @ 5 MCG/KG/MIN 2.376 mls/hr IV.CONT TITRATE PRN Rx#:[id number] NS Inj 1,000 ML @ 30 mls/hr IV. 1000 / 1000 CONT .Q24H [facility] Rx#:[id number] Alburx 5% Inj 500 ML @ 250 mls/ 500 / 500 500 / 500 hr IV.SIG Q12H [facility] Rx#:[id number] Zyvox 600 mg Premix 300 ML @ 300 / 300 300 / 300 300 mls/hr IV.SIG Q12H [facility] Rx#: [id number] Zosyn 2.25 GM Premix 50 ML @ 50 / 50 100 / 100 50 / 50 100 mls/hr IV.SIG Q8H [facility] Rx#: [id number] KCl 20 mEq Premix Inj 20 meq In 100 / 100 100 ml @ 50 mls/hr IV.SIG Q2H [facility] Rx#:[id number] Oral 0 / 0 Output: Urine Amount (Catheter) 1500 / 1500 1300 / 1300 Indwelling Urethral Catheter 1500 / 1500 1300 / 1300 Chest Tube Drainage 60 / 60 70 / 70 Right 60 / 60 70 / 70 Other: Date of Last Bowel Movement 07/10/18 07/10/18 07/10/18 # Bowel Movements 0 0 Narrative: GENERAL: Sedated and intubated. SKIN: Warm and dry. NECK: Supple, trachea midline. No JVD. CARDIOVASCULAR: Regular rate and rhythm without murmurs, gallops, or rubs. RESPIRATORY: Breath sounds equal right-sided chest tube. Orally intubated. GASTROINTESTINAL: Abdomen soft, non-tender, nondistended. GENITOURINARY: Indwelling Culver catheter. MUSCULOSKELETAL: No cyanosis, 1+ edema. . - Urinary Catheter Management Indwelling Urethral Catheter Cath placed during this visit: yes Reason for continuing: Hourly intake/output Insertion date: 07/12/18 Insertion time: 07:45 <Edel Lantigua - Last Filed: 07/15/18 15:38> Vital signs: Vital Signs 07/14/18 21:00 07/14/18 22:00 07/14/18 23:00 Temperature Pulse Rate 97 H 100 H 97 H Respiratory Rate 16 16 16 Blood Pressure 171/75 H 136/69 136/65 Pulse Oximetry 94 L 93 L 93 L 07/15/18 00:00 07/15/18 00:21 07/15/18 01:00 Temperature 99.6 F Pulse Rate 96 H 93 H Respiratory Rate 16 16 16 Blood Pressure 137/65 142/66 H Pulse Oximetry 93 L 93 L 93 L 07/15/18 02:00 07/15/18 03:00 07/15/18 04:00 Temperature 98.9 F Pulse Rate 92 H 92 H 87 Respiratory Rate 16 16 16 Blood Pressure 138/65 149/68 H 161/73 H Pulse Oximetry 94 L 94 L 94 L 07/15/18 04:24 07/15/18 05:00 07/15/18 06:00 Temperature Pulse Rate 85 82 Respiratory Rate 16 16 16 Blood Pressure 143/65 H 169/76 H Pulse Oximetry 94 L 94 L 94 L 07/15/18 07:00 07/15/18 08:00 07/15/18 08:51 Temperature 98.2 F Pulse Rate 81 79 Respiratory Rate 16 16 31 H Blood Pressure 158/72 H 152/70 H Pulse Oximetry 95 94 L 95 07/15/18 09:00 07/15/18 10:00 07/15/18 11:00 Temperature Pulse Rate 87 85 77 Respiratory Rate 31 H 34 H 26 H Blood Pressure 169/80 H 167/76 H 152/70 H Pulse Oximetry 95 95 93 L 07/15/18 11:17 07/15/18 11:20 07/15/18 11:22 Temperature Pulse Rate 75 76 75 Respiratory Rate 26 H 24 27 H Blood Pressure 168/73 H 165/74 H 160/75 H Pulse Oximetry 92 L 92 L 92 L 07/15/18 11:25 07/15/18 11:27 07/15/18 11:30 Temperature Pulse Rate 78 78 79 Respiratory Rate 25 H 33 H 38 H Blood Pressure 144/66 H 143/78 H 134/69 Pulse Oximetry 96 99 99 07/15/18 11:32 07/15/18 11:35 07/15/18 11:37 Temperature Pulse Rate 77 75 75 Respiratory Rate 6 L 9 L 25 H Blood Pressure 147/76 H 157/79 H 179/82 H Pulse Oximetry 99 100 99 07/15/18 11:40 07/15/18 11:42 07/15/18 11:45 Temperature Pulse Rate 76 76 76 Respiratory Rate 5 L 30 H 29 H Blood Pressure 168/79 H 162/80 H 173/77 H Pulse Oximetry 99 100 100 07/15/18 11:47 07/15/18 11:50 07/15/18 11:52 Temperature Pulse Rate 75 75 75 Respiratory Rate 58 H 25 H 25 H Blood Pressure 161/67 H 161/72 H 166/74 H Pulse Oximetry 99 99 99 07/15/18 12:00 07/15/18 12:26 07/15/18 12:35 Temperature 97.8 F Pulse Rate 81 77 Respiratory Rate 30 H 16 16 Blood Pressure 181/80 H 152/69 H Pulse Oximetry 99 99 99 07/15/18 13:00 07/15/18 14:00 07/15/18 15:00 Temperature Pulse Rate 80 76 77 Respiratory Rate 16 16 23 Blood Pressure 153/73 H 164/78 H 167/79 H Pulse Oximetry 99 99 100 07/15/18 16:00 07/15/18 16:36 07/15/18 17:00 Temperature 98.8 F Pulse Rate 75 75 Respiratory Rate 21 20 19 Blood Pressure 160/99 H 162/76 H Pulse Oximetry 100 100 100 07/15/18 18:00 07/15/18 20:00 Temperature Pulse Rate 74 77 Respiratory Rate 19 Blood Pressure 163/77 H Pulse Oximetry 100 Intake & Output 07/15/18 07/15/18 07/16/18 06:59 18:59 06:59 Intake Total 1000 / 1000 1400 / 1400 Output Total 1370 / 1370 3580 / 3580 Balance -370 / -370 -2180 / -2180 Weight 76.4 kg Intake: IV 1000 / 1000 1400 / 1400 Bumex Inj 25 mg In 100 ml @ 1 100 / 100 MG/HR 4 mls/hr IV.CONT .Q24H [facility] Rx#:[id number] Diprivan 1000 mg/100 ml Inj 1, 100 / 100 100 / 100 000 mg In 100 ml @ 5 MCG/KG/MIN 2.376 mls/hr IV.CONT TITRATE PRN Rx#:[id number] Alburx 5% Inj 500 ML @ 250 mls/ 500 / 500 500 / 500 hr IV.SIG Q12H [facility] Rx#:[id number] Cubicin Inj 400 MG In NS Inj 100 / 100 100 ML @ 200 mls/hr IV.SIG Q48H [facility] Rx#:[id number] Zyvox 600 mg Premix 300 ML @ 300 / 300 300 / 300 300 mls/hr IV.SIG Q12H [facility] Rx#: [id number] Zosyn 2.25 GM Premix 50 ML @ 100 / 100 100 / 100 100 mls/hr IV.SIG Q8H [facility] Rx#: [id number] KCl 20 mEq Premix Inj 20 meq In 200 / 200 100 ml @ 50 mls/hr IV.SIG Q2H [facility] Rx#:[id number] Oral 0 / 0 Output: Pleural Fluid 630 / 630 Urine Amount (Catheter) 1300 / 1300 2900 / 2900 Indwelling Urethral Catheter 1300 / 1300 2900 / 2900 Chest Tube Drainage 70 / 70 50 / 50 Right 70 / 70 50 / 50 Other: Date of Last Bowel Movement 07/10/18 07/10/18 # Bowel Movements 0 0 - Urinary Catheter Management Indwelling Urethral Catheter Cath placed during this visit: no <Dina Rivas - Last Filed: 07/15/18 20:36> Assessment and Plan - Assessment (1) Acute kidney injury Code(s): N17.9 - Acute kidney failure, unspecified Status: Acute Plan: Acute kidney injury with possible need for cardiac cath and carotid endarterectomy. No previous history of chronic kidney disease. Creatinine started to increase on the 6th NEERU possible ATN from sepsis or contrast Nephropathy. Creatinine started to increase about 48 hours after receiving contrast. Also possibility of AIN with vancomycin use however random level not elevated. Urine EOS negative. CT of abdomen shows kidney with in normal limits. Recommend continue with albumin/Bumex drip his creatinine is essentially unchanged at 4.5, good urinary response. Weight still remains significantly elevated since admission but improving. Hypokalemia, replacement ordered. Maintain strict I+O, indwelling Culver catheter. Avoid nephrotoxins, Will follow UOP and BMP. Labs in AM <Edel Lantigua - Last Filed: 07/15/18 15:38> - Assessment (1) Acute kidney injury Code(s): N17.9 - Acute kidney failure, unspecified Status: Acute Plan: Patient seen and examined, agree with above. Patient remain non oliguric. Continue Bumex and Albumin, Creatinine is almost same. <Dina Rivas - Last Filed: 07/15/18 20:36>
--- NOTE | 2018-07-15 16:33 | P.PNGI ---
Subjective Interval history: Patient intubated and mechanically ventilated GI reconsulted to evaluate patient's increasing LFTs Physical Exam Vital signs: Vital Signs 07/14/18 17:00 07/14/18 18:00 07/14/18 19:00 Temperature Pulse Rate 102 H 102 H 102 H Respiratory Rate 16 16 16 Blood Pressure 161/70 H 158/70 H 157/72 H Pulse Oximetry 94 L 94 L 94 L 07/14/18 20:00 07/14/18 21:00 07/14/18 22:00 Temperature 99.9 F H Pulse Rate 96 H 97 H 100 H Respiratory Rate 16 16 16 Blood Pressure 150/69 H 171/75 H 136/69 Pulse Oximetry 93 L 94 L 93 L 07/14/18 23:00 07/15/18 00:00 07/15/18 00:21 Temperature 99.6 F Pulse Rate 97 H 96 H Respiratory Rate 16 16 16 Blood Pressure 136/65 137/65 Pulse Oximetry 93 L 93 L 93 L 07/15/18 01:00 07/15/18 02:00 07/15/18 03:00 Temperature Pulse Rate 93 H 92 H 92 H Respiratory Rate 16 16 16 Blood Pressure 142/66 H 138/65 149/68 H Pulse Oximetry 93 L 94 L 94 L 07/15/18 04:00 07/15/18 04:24 07/15/18 05:00 Temperature 98.9 F Pulse Rate 87 85 Respiratory Rate 16 16 16 Blood Pressure 161/73 H 143/65 H Pulse Oximetry 94 L 94 L 94 L 07/15/18 06:00 07/15/18 07:00 07/15/18 08:00 Temperature 98.2 F Pulse Rate 82 81 79 Respiratory Rate 16 16 16 Blood Pressure 169/76 H 158/72 H 152/70 H Pulse Oximetry 94 L 95 94 L 07/15/18 08:51 07/15/18 09:00 07/15/18 10:00 Temperature Pulse Rate 87 85 Respiratory Rate 31 H 31 H 34 H Blood Pressure 169/80 H 167/76 H Pulse Oximetry 95 95 95 07/15/18 11:00 07/15/18 11:17 07/15/18 11:20 Temperature Pulse Rate 77 75 76 Respiratory Rate 26 H 26 H 24 Blood Pressure 152/70 H 168/73 H 165/74 H Pulse Oximetry 93 L 92 L 92 L 07/15/18 11:22 07/15/18 11:25 07/15/18 11:27 Temperature Pulse Rate 75 78 78 Respiratory Rate 27 H 25 H 33 H Blood Pressure 160/75 H 144/66 H 143/78 H Pulse Oximetry 92 L 96 99 07/15/18 11:30 07/15/18 11:32 07/15/18 11:35 Temperature Pulse Rate 79 77 75 Respiratory Rate 38 H 6 L 9 L Blood Pressure 134/69 147/76 H 157/79 H Pulse Oximetry 99 99 100 07/15/18 11:37 07/15/18 11:40 07/15/18 11:42 Temperature Pulse Rate 75 76 76 Respiratory Rate 25 H 5 L 30 H Blood Pressure 179/82 H 168/79 H 162/80 H Pulse Oximetry 99 99 100 07/15/18 11:45 07/15/18 11:47 07/15/18 11:50 Temperature Pulse Rate 76 75 75 Respiratory Rate 29 H 58 H 25 H Blood Pressure 173/77 H 161/67 H 161/72 H Pulse Oximetry 100 99 99 07/15/18 11:52 07/15/18 12:00 07/15/18 12:26 Temperature 97.8 F Pulse Rate 75 81 Respiratory Rate 25 H 30 H 16 Blood Pressure 166/74 H 181/80 H Pulse Oximetry 99 99 99 07/15/18 12:35 07/15/18 13:00 07/15/18 14:00 Temperature Pulse Rate 77 80 76 Respiratory Rate 16 16 16 Blood Pressure 152/69 H 153/73 H 164/78 H Pulse Oximetry 99 99 99 07/15/18 15:00 Temperature Pulse Rate 77 Respiratory Rate 23 Blood Pressure 167/79 H Pulse Oximetry 100 Intake & Output 07/14/18 07/15/18 07/15/18 18:59 06:59 18:59 Intake Total 2250 / 2250 1000 / 1000 350 / 350 Output Total 1560 / 1560 1370 / 1370 Balance 690 / 690 -370 / -370 350 / 350 Weight 76.4 kg Intake: IV 2250 / 2250 1000 / 1000 350 / 350 Bumex Inj 25 mg In 100 ml @ 1 200 / 200 100 / 100 MG/HR 4 mls/hr IV.CONT .Q24H [facility] Rx#:[id number] Diprivan 1000 mg/100 ml Inj 1, 200 / 200 100 / 100 000 mg In 100 ml @ 5 MCG/KG/MIN 2.376 mls/hr IV.CONT TITRATE PRN Rx#:[id number] NS Inj 1,000 ML @ 30 mls/hr IV. 1000 / 1000 CONT .Q24H [facility] Rx#:[id number] Alburx 5% Inj 500 ML @ 250 mls/ 500 / 500 500 / 500 hr IV.SIG Q12H [facility] Rx#:[id number] Zyvox 600 mg Premix 300 ML @ 300 / 300 300 / 300 300 mls/hr IV.SIG Q12H [facility] Rx#: [id number] Zosyn 2.25 GM Premix 50 ML @ 50 / 50 100 / 100 50 / 50 100 mls/hr IV.SIG Q8H [facility] Rx#: [id number] KCl 20 mEq Premix Inj 20 meq In 200 / 200 100 ml @ 50 mls/hr IV.SIG Q2H [facility] Rx#:[id number] Oral 0 / 0 Output: Urine Amount (Catheter) 1500 / 1500 1300 / 1300 Indwelling Urethral Catheter 1500 / 1500 1300 / 1300 Chest Tube Drainage 60 / 60 70 / 70 Right 60 / 60 70 / 70 Other: Date of Last Bowel Movement 07/10/18 07/10/18 07/10/18 # Bowel Movements 0 0 - Constitutional chronically ill appearing - Routine HEENT Exam Head: Present: normocephalic - Routine Respiratory Exam Present: patient mechanically ventilated - Routine Cardiovascular Exam Present: RRR - Routine Abdominal Exam Present: soft, normoactive bowel sounds. Absent: tenderness - Routine Skin Exam Present: dry, warm - Urinary Catheter Management Indwelling Urethral Catheter Cath placed during this visit: yes Reason for continuing: Hourly intake/output Insertion date: 07/12/18 Insertion time: 07:45 Results - Labs CBC & Chem 7: 07/15/18 09:04 07/15/18 09:04 Laboratory Results - last 24 hr 07/15/18 07/15/18 07/15/18 09:04 09:04 09:44 WBC 10.8 RBC 3.05 L Hgb 10.6 L Hct 29.7 L MCV 97.4 MCH 34.8 H MCHC 35.7 RDW 13.6 Plt Count 56 L MPV 11.0 Prelim Diff (Auto) Slide review pending Neut % (Auto) 73.8 H Lymph % (Auto) 9.9 [place] % (Auto) 14.9 H Eos % (Auto) 0.8 Baso % (Auto) 0.6 Neut # (Auto) 8.0 H Lymph # (Auto) 1.1 [place] # (Auto) 1.6 H Eos # (Auto) 0.1 Baso # (Auto) 0.1 WBC Differential . Diff Scan Auto diff confirmed Differential Comment . Toxic Granulation 1+ H Platelet Estimate Low L Platelet Morphology Enlarged H Basophilic Stippling Faint H Target Cells 1+ H Sodium 141 Potassium 2.7 L* Chloride 103 Carbon Dioxide 25.1 Anion Gap 13 BUN 70 H Creatinine 4.58 H Estimated GFR 13 L POC Glucose 122 H Random Glucose 108 H Calcium 8.3 L Total Bilirubin 7.5 H AST 135 H ALT 376 H Alkaline Phosphatase 66 Total Protein 6.4 Albumin 3.0 L Pleural pH Pleural RBC Pleural Nuc Cells Pleural Neutrophils Pleural Lymphocytes Pleural Monocytes Pleural Mesothelial Pleural Total Protein Pleural LDH Pleural Glucose Pleural Amylase 07/15/18 07/15/18 11:45 11:45 WBC RBC Hgb Hct MCV MCH MCHC RDW Plt Count MPV Prelim Diff (Auto) Neut % (Auto) Lymph % (Auto) [place] % (Auto) Eos % (Auto) Baso % (Auto) Neut # (Auto) Lymph # (Auto) [place] # (Auto) Eos # (Auto) Baso # (Auto) WBC Differential Diff Scan Differential Comment Toxic Granulation Platelet Estimate Platelet Morphology Basophilic Stippling Target Cells Sodium Potassium Chloride Carbon Dioxide Anion Gap BUN Creatinine Estimated GFR POC Glucose Random Glucose Calcium Total Bilirubin AST ALT Alkaline Phosphatase Total Protein Albumin Pleural pH 8.5 Pleural RBC 250 H Pleural Nuc Cells 70 H Pleural Neutrophils 12 Pleural Lymphocytes 24 Pleural Monocytes 54 Pleural Mesothelial 10 Pleural Total Protein 1.4 Pleural LDH 146 Pleural Glucose 115 Pleural Amylase 29 Microbiology 07/15/18 11:45 Fluid - Pleural fluid Gram Stain - Final 07/10/18 11:15 Blood - Peripheral Aerobic Blood Culture - Final No growth in 5 days 07/10/18 11:15 Blood - Peripheral Anaerobic Blood Culture - Final No growth in 5 days 07/10/18 11:20 Blood - Peripheral Aerobic Blood Culture - Final No growth in 5 days 07/10/18 11:20 Blood - Peripheral Anaerobic Blood Culture - Final No growth in 5 days 07/13/18 07:35 Sputum - Endotracheal Gram Stain - Final 07/13/18 07:35 Sputum - Endotracheal Sputum Culture - Final Rare growth normal respiratory marie 07/13/18 08:55 Fluid - Pleural fluid Gram Stain - Final 07/13/18 08:55 Fluid - Pleural fluid Body Fluid Culture - Preliminary No growth in 48 hours 07/13/18 08:55 Fluid - Pleural fluid Acid Fast Bacilli Smear - Final No acid fast bacilli seen - Imaging Impressions Chest X-Ray 07/15/18 00:00 CONCLUSION: 1. Interval decrease in left pleural effusion with no pneumothorax. 2. The small bore right-sided chest tube remains in place. Chest X-Ray 07/15/18 08:57 CONCLUSION: 1. No significant change. Hazy opacity remains in the left lung 2. Mild patchy opacity remains at the right lung base. Assessment and Plan (1) Liver failure Status: Acute Code(s): K72.90 - Hepatic failure, unspecified without coma (2) Hyperbilirubinemia Status: Acute Code(s): E80.6 - Other disorders of bilirubin metabolism - Plan Assessment: - Elevated LFTs with findings indicative of cirrhosis He denies IV drug use, tattoos or any high risk sexual behaviors. Denies personal or family history of liver issues. Does admit to smoking cocaine. Patient states he smokes 1 pack/day and drinks a sixpack of beer daily. LFTs trending up since admission. Pt was transferred to [facility] overnight after becoming hypotensive, now on a [place] gtt. Liver work up: BOBBY, ASMA, AMA pending. Ceruloplasmin pending. AAT pending. AFP-3.7. Iron-123 TIBC-217 %sat-56.7 [id number] Hepatitis panel negative. 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 The SMA and MIC are patent. Hepatic steatosis. HIDA (07/09) No activity in intrahepatic ducts, common duct or small bowel. Considerations include include acute obstruction of the common duct and diffuse hepatocellular disease. CT scan shows no dilatation of the common duct or intrahepatic ducts. Diffuse hepatocellular disease is suspected. Given history of cirrhosis, exam is unreliable, do not suspect acute cholecystitis. US gallbladder (07/08) Small, nonspecific pericholecystic fluid without stones , wall thickening or sonographic Lundy's sign. The fluid may be on the basis of hepatocellular disease. The ultrasound does not support acute cholecystitis. Fatty infiltrated and mildly enlarged liver. - Anemia- He denies ever having had a EGD or colonoscopy in the past. No obvious bleeding - Coagulopathy, thrombocytopenia, hypoalbuminemia- in setting of cirrhosis - MRSA bacteremia- ID following, unclear etiology, possible need for ELSLIE, repeat blood cultures pending - Carotid artery stenosis- vascular surgery following (07/11) Renal indices increased today, therefore cardiac cath has been cancelled. Pt states he has been unable to urinate at all since last night even though he feels like he needs to. Discussed with RN to let attending know may need bladder scan vs ultrasound. Pt continues to have diffuse abdominal pain. Denies nausea, vomiting. Has not had BM. H/H trending down, no obvious bleeding, occult stool pending. LFTs trending down some today, liver work up still pending. 07/12/2018 patient continues in the intensive care setting, more awake today and answering a few simple questions, tachycardic labs reviewed which showed current hemoglobin 10, AST 1047, ALT 1219, bilirubin 4.9, LFTs are trending down , hepatocellular disease could be related to alcohol versus obstruction versus medications, possible fatty liver versus shock liver. Need to continue to monitor for any gallbladder disease. Patient will need to stabilize further before any further GI procedures can be performed as well as any vascular clearance. GI will see and follow and monitor labs as needed, appreciate vascular surgery and ID input. Current INR 2.4 which is trending down. 07/15/2018 Patient critically ill in ICU. Intubated and mechanically ventilated. 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 The SMA and MIC are patent. Hepatic steatosis; Highly indicative of ischemic hepatitis-shock liver Cardiac stability and increasing cardiac output needed to aid liver function Plan -N.p.o. -Recommend consulting IR for placement of G-tube for parental feedings due intestinal varices -Monitor labs hemoglobin hematocrit and INR -PPI -Hemochromatosis workup pending -Supportive care -Plan of care as per critical care medicine This patient has been seen by myself and Dr. Medrano and this note is written on his behalf - Attending Attestation Dr. Medrano
[2018-07-15] MEDS: hydrALAZINE HCl Inj 20 MG/ML Vial IV.PUSH PRN (18:17)
[2018-07-15] MEDS: Sod Chloride 0.9% Inj 1,000 ML IV.CONT SCH (20:34)
[2018-07-16] MEDS: Albumin Human 5% Inj 500 ML IV.SIG SCH ×2 (02:07→14:13)
[2018-07-16] MEDS: Piperacil/Tazo 2.25 GM Premix 50 ML IV.SIG SCH ×3 (02:07→20:53)
[2018-07-16] MEDS: Morphine Inj 4 MG/ML Vial IV.PUSH PRN (04:05)
[2018-07-16] MEDS: Oral Hygiene Kit OROPHARYNG SCH ×4 (04:06→18:48)
[2018-07-16] MEDS: Pantoprazole Inj 40 MG Vial IV.PUSH SCH (08:48)
[2018-07-16] MEDS: Mupirocin 2% Nasal Oint Topical Syringe EACH NARE SCH ×2 (08:49→20:53)
[2018-07-16] MEDS: Chlorhexidine 0.12% Oral Kit 15 ML UDC OROPHARYNG SCH ×2 (08:49→20:53)
[2018-07-16] MEDS: Sod Chloride 0.9% Inj 1,000 ML IV.CONT SCH ×2 (08:50→08:51)
--- NOTE | 2018-07-16 10:29 | P.PNID ---
Subjective Remarks: Patient is a 63-year-old male, presented to the hospital complaining of pain and swelling on his left elbow. He stated that he fell about a week ago but did not seek any treatment for his left elbow. He presented to the ED, and he was found to have a fracture of the olecranon on the left side. Patient also since admission has complained of some abdominal pain. He has known history of significant alcohol abuse. Imaging studies of the abdomen showed hepatic steatosis, pericholecystic fluid with no ductal dilatation. Ultrasound showed pericholecystic fluid with negative Lundy sign. He had a HIDA scan which showed no activity which could most likely be due to his liver disease. Patient also had a CTA as part of evaluation for his abdominal pain. That is okay. There were 2 blood cultures done in the ED, and they are now reported as growing MRSA. Patient has had some low-grade temps. Overnight he had persistent hypotension, and he was transferred to the ICU. Patient currently is on pressors. He is afebrile. He is still complaining of abdominal pain. He states he has chronic back pain which has not changed. He denies any shortness of breath. On this admission he was also found to have 80% right carotid artery stenosis, and vascular is following the patient. Echocardiograms not showing any obvious vegetation. His WBC is mildly elevated. He has an elevated lactic acid. His platelet count is low, fibrinogen is normal. Infectious disease consultation has been requested to assist with evaluation and treatment of his bacteremia. Notes reviewed Sedated on the vent Temps ok Creatinine rising, good UO Had tap L side - [address] R - fluid serous NO new (+) BC WBC normal Sputum ok CXR today better Urine for eos negative Antibiotics: Zosyn Cubicin Zyvox Lines: Line sites with no e.o infection Past Medical History: Tobacco and ETOH abuse Drug screen (+) cocaine (denies IVDU), admits to smoking Allergies/Adverse Reactions: Allergies No Known Allergies Allergy (Verified 07/08/18 12:30) Objective Vital Signs 07/15/18 11:00 07/15/18 11:17 07/15/18 11:20 Temperature Pulse Rate 77 75 76 Respiratory Rate 26 H 26 H 24 Blood Pressure 152/70 H 168/73 H 165/74 H Pulse Oximetry 93 L 92 L 92 L 07/15/18 11:22 07/15/18 11:25 07/15/18 11:27 Temperature Pulse Rate 75 78 78 Respiratory Rate 27 H 25 H 33 H Blood Pressure 160/75 H 144/66 H 143/78 H Pulse Oximetry 92 L 96 99 07/15/18 11:30 07/15/18 11:32 07/15/18 11:35 Temperature Pulse Rate 79 77 75 Respiratory Rate 38 H 6 L 9 L Blood Pressure 134/69 147/76 H 157/79 H Pulse Oximetry 99 99 100 07/15/18 11:37 07/15/18 11:40 07/15/18 11:42 Temperature Pulse Rate 75 76 76 Respiratory Rate 25 H 5 L 30 H Blood Pressure 179/82 H 168/79 H 162/80 H Pulse Oximetry 99 99 100 07/15/18 11:45 07/15/18 11:47 07/15/18 11:50 Temperature Pulse Rate 76 75 75 Respiratory Rate 29 H 58 H 25 H Blood Pressure 173/77 H 161/67 H 161/72 H Pulse Oximetry 100 99 99 07/15/18 11:52 07/15/18 12:00 07/15/18 12:26 Temperature 97.8 F Pulse Rate 75 81 Respiratory Rate 25 H 30 H 16 Blood Pressure 166/74 H 181/80 H Pulse Oximetry 99 99 99 07/15/18 12:35 07/15/18 13:00 07/15/18 14:00 Temperature Pulse Rate 77 80 76 Respiratory Rate 16 16 16 Blood Pressure 152/69 H 153/73 H 164/78 H Pulse Oximetry 99 99 99 07/15/18 15:00 07/15/18 16:00 07/15/18 16:36 Temperature 98.8 F Pulse Rate 77 75 Respiratory Rate 23 21 20 Blood Pressure 167/79 H 160/99 H Pulse Oximetry 100 100 100 07/15/18 17:00 07/15/18 18:00 07/15/18 19:00 Temperature Pulse Rate 75 74 79 Respiratory Rate 19 19 23 Blood Pressure 162/76 H 163/77 H 144/68 H Pulse Oximetry 100 100 99 07/15/18 20:00 07/15/18 21:00 07/15/18 21:41 Temperature 97.6 F Pulse Rate 77 79 Respiratory Rate 21 21 21 Blood Pressure 145/70 H 144/69 H Pulse Oximetry 99 100 100 07/15/18 22:00 07/15/18 23:00 07/15/18 23:57 Temperature Pulse Rate 76 76 Respiratory Rate 20 20 19 Blood Pressure 142/66 H 136/68 Pulse Oximetry 100 99 99 07/16/18 00:00 07/16/18 01:00 07/16/18 02:00 Temperature 97.6 F Pulse Rate 78 77 78 Respiratory Rate 21 20 22 Blood Pressure 138/68 142/66 H 139/66 Pulse Oximetry 99 98 99 07/16/18 03:00 07/16/18 03:46 07/16/18 04:00 Temperature 98.5 F Pulse Rate 78 77 Respiratory Rate 24 21 28 H Blood Pressure 140/66 Pulse Oximetry 99 99 99 07/16/18 04:03 07/16/18 05:00 07/16/18 06:00 Temperature Pulse Rate 84 76 76 Respiratory Rate 31 H 19 18 Blood Pressure 136/71 130/60 137/64 Pulse Oximetry 98 98 99 07/16/18 07:00 07/16/18 08:00 07/16/18 08:56 Temperature 98.3 F Pulse Rate 76 75 Respiratory Rate 17 18 Blood Pressure 136/63 136/63 Pulse Oximetry 98 98 98 07/16/18 09:00 07/16/18 10:00 Temperature Pulse Rate 79 78 Respiratory Rate 24 17 Blood Pressure 130/68 128/58 L Pulse Oximetry 98 97 Intake & Output 07/15/18 07/16/18 07/16/18 18:59 06:59 18:59 Intake Total 2400 / 2400 950 / 950 Output Total 3580 / 3580 1450 / 1450 Balance -1180 / -1180 -500 / -500 Weight 76.1 kg Intake: IV 2400 / 2400 950 / 950 Bumex Inj 25 mg In 100 ml @ 1 100 / 100 MG/HR 4 mls/hr IV.CONT .Q24H [facility] Rx#:[id number] Diprivan 1000 mg/100 ml Inj 1, 100 / 100 100 / 100 000 mg In 100 ml @ 5 MCG/KG/MIN 2.376 mls/hr IV.CONT TITRATE PRN Rx#:[id number] NS Inj 1,000 ML @ 30 mls/hr IV. 1000 / 1000 CONT .Q24H [facility] Rx#:[id number] Alburx 5% Inj 500 ML @ 250 mls/ 500 / 500 500 / 500 hr IV.SIG Q12H [facility] Rx#:[id number] Cubicin Inj 400 MG In NS Inj 100 / 100 100 ML @ 200 mls/hr IV.SIG Q48H [facility] Rx#:[id number] Zyvox 600 mg Premix 300 ML @ 300 / 300 300 / 300 300 mls/hr IV.SIG Q12H [facility] Rx#: [id number] Zosyn 2.25 GM Premix 50 ML @ 100 / 100 50 / 50 100 mls/hr IV.SIG Q8H [facility] Rx#: [id number] KCl 20 mEq Premix Inj 20 meq In 200 / 200 100 ml @ 50 mls/hr IV.SIG Q2H [facility] Rx#:[id number] Oral 0 / 0 Output: Pleural Fluid 630 / 630 Urine Amount (Catheter) 2900 / 2900 1400 / 1400 Indwelling Urethral Catheter 2900 / 2900 1400 / 1400 Chest Tube Drainage 50 / 50 50 / 50 Right 50 / 50 50 / 50 Other: Date of Last Bowel Movement 07/10/18 07/10/18 07/10/18 # Bowel Movements 0 0 07/13/18 08:55 Fluid - Pleural fluid Gram Stain - Final 07/13/18 08:55 Fluid - Pleural fluid Body Fluid Culture - Final No growth in 72 hours (aerobically and anaerobically ) 07/15/18 11:45 Fluid - Pleural fluid Gram Stain - Final 07/15/18 11:45 Fluid - Pleural fluid Body Fluid Culture - Pending 07/10/18 11:15 Blood - Peripheral Aerobic Blood Culture - Final No growth in 5 days 07/10/18 11:15 Blood - Peripheral Anaerobic Blood Culture - Final No growth in 5 days 07/10/18 11:20 Blood - Peripheral Aerobic Blood Culture - Final No growth in 5 days 07/10/18 11:20 Blood - Peripheral Anaerobic Blood Culture - Final No growth in 5 days 07/13/18 07:35 Sputum - Endotracheal Gram Stain - Final 07/13/18 07:35 Sputum - Endotracheal Sputum Culture - Final Rare growth normal respiratory marie 07/13/18 08:55 Fluid - Pleural fluid Acid Fast Bacilli Smear - Final No acid fast bacilli seen 07/13/18 08:55 Fluid - Pleural fluid Mycobacterial Culture - Pending 07/08/18 19:35 Blood - Peripheral Aerobic Blood Culture - Final S. aureus MRSA 07/08/18 19:35 Blood - Peripheral Anaerobic Blood Culture - Final Staphylococcus coag negative 07/13/18 08:55 Fluid - Pleural fluid Fungal Smear - Final No fungal elements seen 07/13/18 08:55 Fluid - Pleural fluid Fungal Culture - Pending Lab - Hematology Results 07/15/18 09:04 WBC 10.8 RBC 3.05 L Hgb 10.6 L Hct 29.7 L MCV 97.4 MCH 34.8 H MCHC 35.7 RDW 13.6 Plt Count 56 L MPV 11.0 Prelim Diff (Auto) Slide review pending Neut % (Auto) 73.8 H Lymph % (Auto) 9.9 [place] % (Auto) 14.9 H Eos % (Auto) 0.8 Baso % (Auto) 0.6 Neut # (Auto) 8.0 H Lymph # (Auto) 1.1 [place] # (Auto) 1.6 H Eos # (Auto) 0.1 Baso # (Auto) 0.1 WBC Differential . Diff Scan Auto diff confirmed Differential Comment . Toxic Granulation 1+ H Platelet Estimate Low L Platelet Morphology Enlarged H Basophilic Stippling Faint H Target Cells 1+ H Lab - Chemistry Results 07/15/18 07/15/18 09:04 09:44 Sodium 141 Potassium 2.7 L* Chloride 103 Carbon Dioxide 25.1 Anion Gap 13 BUN 70 H Creatinine 4.58 H Estimated GFR 13 L POC Glucose 122 H Random Glucose 108 H Calcium 8.3 L Total Bilirubin 7.5 H AST 135 H ALT 376 H Alkaline Phosphatase 66 Total Protein 6.4 Albumin 3.0 L Imaging: ITS Impressions Elbow X-Ray 07/08/18 18:01 CONCLUSION: 1. Small, mildly displaced olecranon avulsion fracture fragments of the triceps insertion with associated soft tissue swelling. 2. Joint effusion. No perceptible intra-articular fracture. No subluxation. Abdomen/Pelvis CT 07/08/18 18:02 CONCLUSION: 1. Severe fatty infiltration of the liver. 2. Apparent pericholecystic fluid. Also fairly robust enhancement of the gallbladder mucosa. Please correlate clinically for any evidence of cholecystitis. No stones or ductal dilatation demonstrated. Gallbladder Ultrasound 07/08/18 18:53 CONCLUSION: 1. Small, nonspecific pericholecystic fluid without stones, wall thickening or sonographic Lundy's sign. The fluid may be on the basis of hepatocellular disease. The ultrasound does not support acute cholecystitis. 2. Fatty infiltrated and mildly enlarged liver. Carotid Doppler Study 07/09/18 00:00 CONCLUSION: 1. Right Internal Carotid Artery: Findings indicate >70% stenosis, but less than near occlusion. 2. Left Internal Carotid Artery: Findings indicate <50% stenosis. Hepatobiliary Scan Nuclear Medicine 07/09/18 14:22 CONCLUSION: 1. No activity in intrahepatic ducts, common duct or small bowel. Considerations include include acute obstruction of the common duct and diffuse hepatocellular disease. 2. CT scan shows no dilatation of the common duct or intrahepatic ducts. Diffuse hepatocellular disease is suspected. Neck CTA 07/10/18 00:00 CONCLUSION: 1. 80% stenosis of the proximal right ICA. Left carotid and bilateral vertebral arteries are patent. 2. Emphysematous changes. Abdomen/Pelvis CTA 07/10/18 00:08 CONCLUSION: 1. 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 The SMA and MIC are patent. 2. Hepatic steatosis. 3. Emphysematous changes. Abdomen/Bladder Ultrasound 07/11/18 00:00 CONCLUSION: 1. Normal ultrasound appearance of the kidneys. 2. Other findings include hepatic steatosis and left pleural effusion. Elbow CT 07/11/18 00:00 CONCLUSION: 1. Small fracture fragment off the olecranon. 2. There is subcutaneous edema identified posterior to the elbow with soft tissue swelling. Head CT 07/13/18 00:00 CONCLUSION: 1. No acute intracranial abnormality. 2. Atrophy. . Chest X-Ray 07/15/18 08:57 CONCLUSION: 1. No significant change. Hazy opacity remains in the left lung 2. Mild patchy opacity remains at the right lung base. Physical Exam: GENERAL: Sedated on the vent, NAD SKIN: Cool and dry. No generalized rash, no ecchymoses. HEAD: Atraumatic. Normocephalic. No temporal wasting, or tenderness. EYES: Fithian conjunctiva. No petechia or hemorrhage. Pupils equal, round and reactive to light. Has mild injection ENT: Intubated CARDIOVASCULAR: Regular rate and rhythm. RESPIRATORY: Decreased BS at bases ABDOMEN: Soft, no response to palpation EXTREMITIES: No clubbing, cyanosis. Mild pedal edema. Has posterior splint in his whole LUE NEUROLOGICAL: Pupils unequal left > right. PSYCHIATRIC: Unable to assess LINE: No evidence of infection Assessment and Plan - Plan Impression MRSA sepsis ? olecranon trauma as entry point for MRSA MRSA bacteremia, ? endocarditis Shock, resolved Known ETOH abuse and tobacco abuse Denies IVDU, admits to smoking cocaine ETOH liver disease Elevated LFT Thrombocytopenia Acute renal failure: sepsis, contrast, meds. Respiratory failure Pleural effusion, has CT - fluid transudative Recommendation continue Cubicin for now for MRSA bacteremia Continue Zosyn ?aspiration prior to intubation. Stop Zyvox Follow C/S Follow temps Monitor progress Weaning per CCM
[2018-07-16 11:55] LABS: Albumin 3.1 g/dL (3.4-5.0); Calcium 8.3 mg/dL (8.5-10.1); Carbon Dioxide 28.2 meq/L (21.0-32.0); Phosphorus 5.7 mg/dL (2.5-4.9); Potassium 3.1 meq/L (3.5-5.1)
--- NOTE | 2018-07-16 11:59 | P.PNCA ---
Subjective Interval history: Patient intubated. Patient does open eyes to stimulation but does not follow commands. Patient does not appear to be in any acute distress at this time. Medications and Allergies Allergies Allergy/AdvReac Type Severity Reaction Status Date / Time No Known Allergies Allergy Verified 07/08/18 12:30 Home Medications Medication Instructions Recorded Confirmed Type No Known Home Medications 07/08/18 07/08/18 History Active Medications: Active Medications Al Hydroxide/Mg Hydroxide (Milk Of Pj Liq) 30 ml PO Q12H PRN PRN Reason: Mild Constipation Albuterol (Albuterol Neb (Prn)) 2.5 mg NEB Q2HR NEB PRN PRN Reason: DYSPNEA Albuterol (Duoneb Neb (Prn)) 1 ampul NEB Q2HR NEB PRN PRN Reason: SHORTNESS OF BREATH Last Admin: 07/14/18 08:20 Dose: 1 ampul Chlorhexidine Gluconate (Peridex 0.12% Oral Kit) 15 ml OROPHARYNG BID@0800, 2000 [facility] Last Admin: 07/16/18 08:49 Dose: 15 ml Flumazenil (Romazecon Inj) 0.2 mg IV.PUSH Q1M PRN PRN Reason: OVERSEDATION Haloperidol Lactate (Haldol Inj) 1 mg IV.PUSH Q15M PRN PRN Reason: for severe agitation Hydralazine HCl (Apresoline Inj) 10 mg IV.PUSH Q1H PRN PRN Reason: Sys Bp Greater Than 165 [facility] Last Admin: 07/15/18 18:17 Dose: 10 mg Daptomycin 400 mg/ Sodium (Chloride) 100 mls @ 200 mls/hr IV.SIG Q48H [facility] Last Infusion: 07/15/18 11:42 Dose: Infused Piperacillin/Tazobactam/Dextrose (Zosyn 2.25 Gm Premix) 50 mls @ 100 mls/hr IV.SIG Q8H [facility] Last Infusion: 07/16/18 02:37 Dose: Infused Sodium Chloride (Ns Inj) 1,000 mls @ 30 mls/hr IV.CONT .Q24H [facility] Last Admin: 07/16/18 08:51 Dose: Not Given Bumetanide (Bumex Inj) 25 mg in 100 mls @ 4 mls/hr IV.CONT .Q24H [facility] Last Admin: 07/15/18 11:13 Dose: 1 mg/hr, 4 mls/hr Albumin Human (Alburx 5% Inj) 500 mls @ 250 mls/hr IV.SIG Q12H [facility] Last Infusion: 07/16/18 04:07 Dose: Infused Propofol (Diprivan 1000 Mg/100 Ml Inj) 1,000 mg in 100 mls @ 2.376 mls/hr IV.CONT TITRATE PRN; Protocol PRN Reason: Per Protocol Last Admin: 07/15/18 22:08 Dose: 20 mcg/kg/min, 9.5 mls/hr Linezolid (Zyvox 600 Mg Premix) 300 mls @ 300 mls/hr IV.SIG Q12H [facility] Last Infusion: 07/16/18 06:00 Dose: Infused Labetalol HCl (Trandate Inj) 10 mg IV.PUSH Q1H PRN PRN Reason: Sbp>165, Dbp>90, Hr>65 Lactulose (Lactulose Liq) 30 ml PO DAILY PRN PRN Reason: SEVERE CONSITIPATION Lactulose (Lactulose Liq) 30 ml PO TID [facility] Last Admin: 07/16/18 08:50 Dose: Not Given Lorazepam (Ativan) 1 mg PO Q4H PRN PRN Reason: for CIWA 8-10 Lorazepam (Ativan) 2 mg PO Q2H PRN PRN Reason: for CIWA 11-14 Lorazepam (Ativan Inj) 2 mg IV.PUSH Q2H PRN PRN Reason: for CIWA 11-14 Last Admin: 07/12/18 23:49 Dose: 2 mg Lorazepam (Ativan Inj) 2 mg IV.PUSH Q1H PRN PRN Reason: for CIWA 15-20 Last Admin: 07/11/18 21:37 Dose: 2 mg Lorazepam (Ativan Inj) 2 mg IV.PUSH Q15M PRN PRN Reason: for CIWA > 20 Lorazepam (Ativan Inj) 1 mg IV.PUSH Q4H PRN PRN Reason: for CIWA 8-10 Last Admin: 07/12/18 10:48 Dose: 1 mg Miscellaneous Medication () 1 each OROPHARYNG 0000,0400,1200,1600 [facility] Last Admin: 07/16/18 04:06 Dose: 1 each Morphine Sulfate (Morphine Inj) 2 mg IV.PUSH Q4H PRN PRN Reason: BREAKTHROUGH PAIN Last Admin: 07/16/18 04:05 Dose: 2 mg Mupirocin (Bactroban 2% Nasal Oint) 1 applicatio EACH NARE BID [facility] Last Admin: 07/16/18 08:49 Dose: 1 applicatio Naloxone HCl (Narcan Inj) 0.4 mg IV.PUSH UNSCH PRN PRN Reason: SEE LABEL COMMENTS Ondansetron HCl (Zofran Inj) 4 mg IV.PUSH Q6H PRN PRN Reason: NAUSEA OR VOMITING Pantoprazole Sodium (Protonix Inj) 40 mg IV.PUSH DAILY [facility] Last Admin: 07/16/18 08:48 Dose: 40 mg Sennosides (Senokot) 17.2 mg PO Q12H PRN PRN Reason: Moderate Constipation Sodium Chloride (Ns Flush) 2 ml IV.FLUSH PRN PRN PRN Reason: FLUSH AFTER USING IV ACCESS Sodium Chloride (Ns Flush) 2 ml IV.FLUSH BID [facility] Last Admin: 07/16/18 08:50 Dose: 2 ml Physical Exam Vital signs: Vital Signs 07/15/18 11:52 07/15/18 12:00 07/15/18 12:26 Temperature 97.8 F Pulse Rate 75 81 Respiratory Rate 25 H 30 H 16 Blood Pressure 166/74 H 181/80 H Pulse Oximetry 99 99 99 07/15/18 12:35 07/15/18 13:00 07/15/18 14:00 Temperature Pulse Rate 77 80 76 Respiratory Rate 16 16 16 Blood Pressure 152/69 H 153/73 H 164/78 H Pulse Oximetry 99 99 99 07/15/18 15:00 07/15/18 16:00 07/15/18 16:36 Temperature 98.8 F Pulse Rate 77 75 Respiratory Rate 23 21 20 Blood Pressure 167/79 H 160/99 H Pulse Oximetry 100 100 100 07/15/18 17:00 07/15/18 18:00 07/15/18 19:00 Temperature Pulse Rate 75 74 79 Respiratory Rate 19 19 23 Blood Pressure 162/76 H 163/77 H 144/68 H Pulse Oximetry 100 100 99 07/15/18 20:00 07/15/18 21:00 07/15/18 21:41 Temperature 97.6 F Pulse Rate 77 79 Respiratory Rate 21 21 21 Blood Pressure 145/70 H 144/69 H Pulse Oximetry 99 100 100 12/11/18 22:00 07/15/18 23:00 07/15/18 23:57 Temperature Pulse Rate 76 76 Respiratory Rate 20 20 19 Blood Pressure 142/66 H 136/68 Pulse Oximetry 100 99 99 07/16/18 00:00 07/16/18 01:00 07/16/18 02:00 Temperature 97.6 F Pulse Rate 78 77 78 Respiratory Rate 21 20 22 Blood Pressure 138/68 142/66 H 139/66 Pulse Oximetry 99 98 99 07/16/18 03:00 07/16/18 03:46 07/16/18 04:00 Temperature 98.5 F Pulse Rate 78 77 Respiratory Rate 24 21 28 H Blood Pressure 140/66 Pulse Oximetry 99 99 99 07/16/18 04:03 07/16/18 05:00 07/16/18 06:00 Temperature Pulse Rate 84 76 76 Respiratory Rate 31 H 19 18 Blood Pressure 136/71 130/60 137/64 Pulse Oximetry 98 98 99 07/16/18 07:00 07/16/18 08:00 07/16/18 08:56 Temperature 98.3 F Pulse Rate 76 75 Respiratory Rate 17 18 Blood Pressure 136/63 136/63 Pulse Oximetry 98 98 98 07/16/18 09:00 07/16/18 10:00 Temperature Pulse Rate 79 78 Respiratory Rate 24 17 Blood Pressure 130/68 128/58 L Pulse Oximetry 98 97 Intake & Output 07/15/18 07/16/18 07/16/18 18:59 06:59 18:59 Intake Total 2400 / 2400 950 / 950 Output Total 3580 / 3580 1450 / 1450 Balance -1180 / -1180 -500 / -500 Weight 76.1 kg Intake: IV 2400 / 2400 950 / 950 Bumex Inj 25 mg In 100 ml @ 1 100 / 100 MG/HR 4 mls/hr IV.CONT .Q24H [facility] Rx#:[id number] Diprivan 1000 mg/100 ml Inj 1, 100 / 100 100 / 100 000 mg In 100 ml @ 5 MCG/KG/MIN 2.376 mls/hr IV.CONT TITRATE PRN Rx#:[id number] NS Inj 1,000 ML @ 30 mls/hr IV. 1000 / 1000 CONT .Q24H [facility] Rx#:[id number] Alburx 5% Inj 500 ML @ 250 mls/ 500 / 500 500 / 500 hr IV.SIG Q12H [facility] Rx#:[id number] Cubicin Inj 400 MG In NS Inj 100 / 100 100 ML @ 200 mls/hr IV.SIG Q48H [facility] Rx#:[id number] Zyvox 600 mg Premix 300 ML @ 300 / 300 300 / 300 300 mls/hr IV.SIG Q12H [facility] Rx#: [id number] Zosyn 2.25 GM Premix 50 ML @ 100 / 100 50 / 50 100 mls/hr IV.SIG Q8H [facility] Rx#: [id number] KCl 20 mEq Premix Inj 20 meq In 200 / 200 100 ml @ 50 mls/hr IV.SIG Q2H [facility] Rx#:[id number] Oral 0 / 0 Output: Pleural Fluid 630 / 630 Urine Amount (Catheter) 2900 / 2900 1400 / 1400 Indwelling Urethral Catheter 2900 / 2900 1400 / 1400 Chest Tube Drainage 50 / 50 50 / 50 Right 50 / 50 50 / 50 Other: Date of Last Bowel Movement 07/10/18 07/10/18 07/10/18 # Bowel Movements 0 0 - Constitutional no acute distress - Routine HEENT Exam Head: Present: normocephalic ENT: Present: mucous membranes moist Comments: chronic dilation of the left pupil - Routine Neck Exam Present: supple - Routine Respiratory Exam Present: patient mechanically ventilated - Routine Cardiovascular Exam Present: S1, S2. Absent: murmur, gallop, rubs - Routine Abdominal Exam Present: normoactive bowel sounds - Routine Extremities Exam Present: normal capillary refill. Absent: cyanosis, clubbing, edema, full ROM - Routine Skin Exam Present: intact - Detailed Neurological Exam: Coma Scale Eye Opening: To pressure Verbal Response: None Motor Response: None [place] Coma Scale Total: 4 - Routine Psychiatric Exam Present: unable to assess - Urinary Catheter Management Indwelling Urethral Catheter Cath placed during this visit: yes Reason for continuing: Hourly intake/output Insertion date: 07/12/18 Insertion time: 07:45 Results 07/15/18 09:04 07/16/18 10:45 Cardiac Enzymes 07/15/18 Range/Units 09:04 AST 135 H (15-37) U/L CBC 07/15/18 Range/Units 09:04 WBC 10.8 (4.0-11.0) th/mm3 RBC 3.05 L (4.50-5.90) mil/mm3 Hgb 10.6 L (13.0-17.0) gm/dL Hct 29.7 L (39.0-51.0) % Plt Count 56 L (150-450) th/mm3 Neut # (Auto) 8.0 H (1.8-7.7) th/mm3 Lymph # (Auto) 1.1 (1.0-4.8) th/mm3 [place] # (Auto) 1.6 H (0.0-0.9) th/mm3 Eos # (Auto) 0.1 (0.0-0.4) th/mm3 Baso # (Auto) 0.1 (0.0-0.2) th/mm3 Comprehensive Metabolic Panel 07/15/18 Range/Units 09:04 Sodium 141 (136-145) meq/L Potassium 2.7 L* (3.5-5.1) meq/L Chloride 103 (98-107) meq/L Carbon Dioxide 25.1 (21.0-32.0) meq/L BUN 70 H (7-18) mg/dL Creatinine 4.58 H (0.60-1.30) mg/dL Calcium 8.3 L (8.5-10.1) mg/dL AST 135 H (15-37) U/L ALT 376 H (12-78) U/L Alkaline Phosphatase 66 (45-117) U/L Total Protein 6.4 (6.4-8.2) g/dL Albumin 3.0 L (3.4-5.0) g/dL Intake and Output 07/15/18 07/16/18 07/16/18 22:59 06:59 14:59 Intake Total 2150 / 2150 850 / 850 Output Total 3580 / 3580 1450 / 1450 Balance -1430 / -1430 -600 / -600 Intake: IV 2150 / 2150 850 / 850 Diprivan 1000 mg/100 ml Inj 1, 200 / 200 000 mg In 100 ml @ 5 MCG/KG/MIN 2.376 mls/hr IV.CONT TITRATE PRN Rx#:[id number] NS Inj 1,000 ML @ 30 mls/hr IV. 1000 / 1000 CONT .Q24H [facility] Rx#:[id number] Alburx 5% Inj 500 ML @ 250 mls/ 500 / 500 500 / 500 hr IV.SIG Q12H [facility] Rx#:[id number] Zyvox 600 mg Premix 300 ML @ 300 / 300 300 / 300 300 mls/hr IV.SIG Q12H [facility] Rx#: [id number] Zosyn 2.25 GM Premix 50 ML @ 50 / 50 50 / 50 100 mls/hr IV.SIG Q8H [facility] Rx#: [id number] KCl 20 mEq Premix Inj 20 meq In 100 / 100 100 ml @ 50 mls/hr IV.SIG Q2H [facility] Rx#:[id number] Oral 0 / 0 Output: Pleural Fluid 630 / 630 Urine Amount (Catheter) 2900 / 2900 1400 / 1400 Indwelling Urethral Catheter 2900 / 2900 1400 / 1400 Chest Tube Drainage 50 / 50 50 / 50 Right 50 / 50 50 / 50 Other: Date of Last Bowel Movement 07/10/18 07/10/18 07/10/18 # Bowel Movements 0 0 Weight 76.1 kg - Imaging and Cardiology Imaging: Impressions Chest X-Ray 07/15/18 00:00 CONCLUSION: 1. Interval decrease in left pleural effusion with no pneumothorax. 2. The small bore right-sided chest tube remains in place. Chest X-Ray 07/15/18 08:57 CONCLUSION: 1. No significant change. Hazy opacity remains in the left lung 2. Mild patchy opacity remains at the right lung base. Assessment and Plan - Assessment (1) Chest pain Code(s): R07.9 - Chest pain, unspecified Status: Acute (2) Elevated troponin level Code(s): R74.8 - Abnormal levels of other serum enzymes Status: Acute (3) Liver failure Code(s): K72.90 - Hepatic failure, unspecified without coma Status: Acute (4) Hyperbilirubinemia Code(s): E80.6 - Other disorders of bilirubin metabolism Status: Acute - Plan No new cardiac issues. We will continue conservative management for his recent NSTEMI. We will continue post MA care and adjust as needed. Renal evaluation in progress due to acute renal failure. Patient remains on contact isolation due to S. aurous in the blood, ID evaluation in progress. Continue ICU care. Wean vent as tolerated. We will continue to monitor the patient during his hospitalization. The patient was seen and evaluated by Dr. Gonzalez who participated in care, management and decision making. - Attending Attestation Patient seen and examined. I reviewed and agree with the evaluation and plan as presented. Continue current program including ICU care. Wean vent as tolerated. Overall prognosis remains guarded.
--- NOTE | 2018-07-16 12:04 | P.PNNP ---
Subjective Interval history: Remains on ventilator with mild sedation. Opens eyes but does not follow commands. Creatinine has improved some at 3.70, good urinary output. <Edel Lantigua - Last Filed: 07/16/18 11:59> Physical Exam Vital signs: Vital Signs 07/15/18 12:00 07/15/18 12:26 07/15/18 12:35 Temperature 97.8 F Pulse Rate 81 77 Respiratory Rate 30 H 16 16 Blood Pressure 181/80 H 152/69 H Pulse Oximetry 99 99 99 07/15/18 13:00 07/15/18 14:00 07/15/18 15:00 Temperature Pulse Rate 80 76 77 Respiratory Rate 16 16 23 Blood Pressure 153/73 H 164/78 H 167/79 H Pulse Oximetry 99 99 100 07/15/18 16:00 07/15/18 16:36 07/15/18 17:00 Temperature 98.8 F Pulse Rate 75 75 Respiratory Rate 21 20 19 Blood Pressure 160/99 H 162/76 H Pulse Oximetry 100 100 100 07/15/18 18:00 07/15/18 19:00 07/15/18 20:00 Temperature 97.6 F Pulse Rate 74 79 77 Respiratory Rate 19 23 21 Blood Pressure 163/77 H 144/68 H 145/70 H Pulse Oximetry 100 99 99 07/15/18 21:00 07/15/18 21:41 07/15/18 22:00 Temperature Pulse Rate 79 76 Respiratory Rate 21 21 20 Blood Pressure 144/69 H 142/66 H Pulse Oximetry 100 100 100 07/15/18 23:00 07/15/18 23:57 07/16/18 00:00 Temperature 97.6 F Pulse Rate 76 78 Respiratory Rate 20 19 21 Blood Pressure 136/68 138/68 Pulse Oximetry 99 99 99 07/16/18 01:00 07/16/18 02:00 07/16/18 03:00 Temperature Pulse Rate 77 78 78 Respiratory Rate 20 22 24 Blood Pressure 142/66 H 139/66 140/66 Pulse Oximetry 98 99 99 07/16/18 03:46 07/16/18 04:00 07/16/18 04:03 Temperature 98.5 F Pulse Rate 77 84 Respiratory Rate 21 28 H 31 H Blood Pressure 136/71 Pulse Oximetry 99 99 98 07/16/18 05:00 07/16/18 06:00 07/16/18 07:00 Temperature Pulse Rate 76 76 76 Respiratory Rate 19 18 17 Blood Pressure 130/60 137/64 136/63 Pulse Oximetry 98 99 98 07/16/18 08:00 07/16/18 08:56 07/16/18 09:00 Temperature 98.3 F Pulse Rate 75 79 Respiratory Rate 18 24 Blood Pressure 136/63 130/68 Pulse Oximetry 98 98 98 07/16/18 10:00 Temperature Pulse Rate 78 Respiratory Rate 17 Blood Pressure 128/58 L Pulse Oximetry 97 Intake & Output 07/15/18 07/16/18 07/16/18 18:59 06:59 18:59 Intake Total 2400 / 2400 950 / 950 Output Total 3580 / 3580 1450 / 1450 Balance -1180 / -1180 -500 / -500 Weight 76.1 kg Intake: IV 2400 / 2400 950 / 950 Bumex Inj 25 mg In 100 ml @ 1 100 / 100 MG/HR 4 mls/hr IV.CONT .Q24H [facility] Rx#:[id number] Diprivan 1000 mg/100 ml Inj 1, 100 / 100 100 / 100 000 mg In 100 ml @ 5 MCG/KG/MIN 2.376 mls/hr IV.CONT TITRATE PRN Rx#:[id number] NS Inj 1,000 ML @ 30 mls/hr IV. 1000 / 1000 CONT .Q24H [facility] Rx#:[id number] Alburx 5% Inj 500 ML @ 250 mls/ 500 / 500 500 / 500 hr IV.SIG Q12H [facility] Rx#:[id number] Cubicin Inj 400 MG In NS Inj 100 / 100 100 ML @ 200 mls/hr IV.SIG Q48H [facility] Rx#:[id number] Zyvox 600 mg Premix 300 ML @ 300 / 300 300 / 300 300 mls/hr IV.SIG Q12H [facility] Rx#: [id number] Zosyn 2.25 GM Premix 50 ML @ 100 / 100 50 / 50 100 mls/hr IV.SIG Q8H [facility] Rx#: [id number] KCl 20 mEq Premix Inj 20 meq In 200 / 200 100 ml @ 50 mls/hr IV.SIG Q2H [facility] Rx#:[id number] Oral 0 / 0 Output: Pleural Fluid 630 / 630 Urine Amount (Catheter) 2900 / 2900 1400 / 1400 Indwelling Urethral Catheter 2900 / 2900 1400 / 1400 Chest Tube Drainage 50 / 50 50 / 50 Right 50 / 50 50 / 50 Other: Date of Last Bowel Movement 07/10/18 07/10/18 07/10/18 # Bowel Movements 0 0 Narrative: GENERAL: Sedated and intubated. SKIN: Warm and dry. NECK: Supple, trachea midline. No JVD. CARDIOVASCULAR: Regular rate and rhythm without murmurs, gallops, or rubs. RESPIRATORY: Breath sounds equal right-sided chest tube. Orally intubated. GASTROINTESTINAL: Abdomen soft, non-tender, nondistended. GENITOURINARY: Indwelling Culver catheter, light yellow urine. MUSCULOSKELETAL: No cyanosis, no edema. . . - Urinary Catheter Management Indwelling Urethral Catheter Cath placed during this visit: yes Reason for continuing: Hourly intake/output Insertion date: 07/12/18 Insertion time: 07:45 <Edel Lantigua - Last Filed: 07/16/18 11:59> Vital signs: Vital Signs 07/16/18 21:00 07/16/18 21:34 07/16/18 22:00 Temperature Pulse Rate 75 75 Respiratory Rate 31 H 21 25 H Blood Pressure 153/70 H 141/65 H Pulse Oximetry 97 98 97 07/16/18 23:00 07/17/18 00:00 07/17/18 01:00 Temperature 98.2 F Pulse Rate 77 75 74 Respiratory Rate 20 18 16 Blood Pressure 156/72 H 155/72 H 157/71 H Pulse Oximetry 97 97 97 07/17/18 02:00 07/17/18 03:00 07/17/18 04:00 Temperature 98.1 F Pulse Rate 74 68 67 Respiratory Rate 19 15 16 Blood Pressure 157/72 H 154/71 H 155/72 H Pulse Oximetry 97 98 99 07/17/18 04:37 07/17/18 05:00 07/17/18 06:00 Temperature Pulse Rate 64 76 Respiratory Rate 16 15 32 H Blood Pressure 154/71 H 149/68 H Pulse Oximetry 98 99 98 07/17/18 07:00 07/17/18 08:00 07/17/18 09:00 Temperature 97.4 F L Pulse Rate 69 70 68 Respiratory Rate 21 19 31 H Blood Pressure 151/68 H 154/74 H 149/68 H Pulse Oximetry 98 98 97 07/17/18 09:42 07/17/18 10:00 07/17/18 11:00 Temperature Pulse Rate 69 70 Respiratory Rate 24 23 23 Blood Pressure 159/72 H 157/73 H Pulse Oximetry 97 97 97 07/17/18 11:32 07/17/18 12:00 07/17/18 13:00 Temperature 98.4 F Pulse Rate 72 73 Respiratory Rate 22 19 20 Blood Pressure 147/65 H 159/71 H Pulse Oximetry 97 96 97 07/17/18 14:00 07/17/18 15:00 07/17/18 16:00 Temperature 98.2 F Pulse Rate 71 72 69 Respiratory Rate 19 19 13 Blood Pressure 153/70 H 151/66 H 150/67 H Pulse Oximetry 97 96 96 07/17/18 17:00 07/17/18 17:38 07/17/18 18:00 Temperature 98.6 F Pulse Rate 72 71 Respiratory Rate 19 19 19 Blood Pressure 156/72 H 157/70 H Pulse Oximetry 97 97 97 07/17/18 20:28 Temperature Pulse Rate Respiratory Rate 24 Blood Pressure Pulse Oximetry 96 Intake & Output 07/17/18 07/17/18 07/18/18 06:59 18:59 06:59 Intake Total 2800 / 2800 450 / 450 Output Total 2670 / 2670 3870 / 3870 Balance 130 / 130 -3420 / -3420 Weight 73.4 kg Intake: IV 2800 / 2800 450 / 450 Bumex Inj 25 mg In 100 ml @ 1 100 / 100 MG/HR 4 mls/hr IV.CONT .Q24H [facility] Rx#:[id number] Diprivan 1000 mg/100 ml Inj 1, 100 / 100 200 / 200 000 mg In 100 ml @ 5 MCG/KG/MIN 2.376 mls/hr IV.CONT TITRATE PRN Rx#:[id number] NS Inj 1,000 ML @ 30 mls/hr IV. 1000 / 1000 CONT .Q24H [facility] Rx#:[id number] Alburx 5% Inj 500 ML @ 250 mls/ 1000 / 1000 hr IV.SIG Q12H [facility] Rx#:[id number] Zyvox 600 mg Premix 300 ML @ 600 / 600 300 mls/hr IV.SIG Q12H [facility] Rx#: [id number] Zosyn 2.25 GM Premix 50 ML @ 100 / 100 50 / 50 100 mls/hr IV.SIG Q8H [facility] Rx#: [id number] KCl 20 mEq Premix Inj 20 meq In 100 / 100 100 ml @ 50 mls/hr IV.SIG Q2H [facility] Rx#:[id number] Oral 0 / 0 Output: Urine Amount (Catheter) 2650 / 2650 3800 / 3800 Indwelling Urethral Catheter 2650 / 2650 3800 / 3800 Chest Tube Drainage 70 / 70 Right 70 / 70 Other: Date of Last Bowel Movement 07/10/18 07/10/18 # Bowel Movements 0 0 - Urinary Catheter Management Indwelling Urethral Catheter Cath placed during this visit: no <Dina Rivas - Last Filed: 07/17/18 20:58> Assessment and Plan - Assessment (1) Acute kidney injury Code(s): N17.9 - Acute kidney failure, unspecified Status: Acute Plan: Acute kidney injury with possible need for cardiac cath and carotid endarterectomy. No previous history of chronic kidney disease. Creatinine started to increase on the 6th NEERU possible ATN from sepsis or contrast Nephropathy. Creatinine started to increase about 48 hours after receiving contrast. Also possibility of AIN with vancomycin use however random level not elevated. Urine EOS negative. CT of abdomen shows kidney with in normal limits. Recommend continue with albumin/Bumex drip for now, creatinine has improved at 3.7, good urinary response. Hypokalemia, replacement ordered. Maintain strict I +O, indwelling Culver catheter. Avoid nephrotoxins, Will follow UOP and BMP. Labs in AM <Edel Lantigua - Last Filed: 07/16/18 11:59> - Assessment (1) Acute kidney injury Code(s): N17.9 - Acute kidney failure, unspecified Status: Acute Plan: Patient seen and examined, agree with above. Creatinine is slightly better, continue Bumex, urine out put is good. Weaning as per CCM. <Dina Rivas - Last Filed: 07/17/18 20:58>
[2018-07-16] MEDS: Bumetanide Inj 25 MG/100 ML BAG IV.CONT SCH (14:07)
--- NOTE | 2018-07-16 15:40 | P.PNCC ---
Subjective Subjective Remarks/Hospital Course: 63-year-old male. Admission 07/09/2018. Date of consultation 2017. Past medical history includes ongoing alcoholism. Urine tox screen on admission positive for cocaine and opiates. Patient originally fell from a single bed about 1 week ago. He did not seek treatment for his swollen left elbow. He is initially diagnosed here with a left olecranon fracture/ nondisplaced. Seen by Dr. Blanco recommended splint/immobilization. Follow-up outpatient with x-rays in 2 weeks. He was treated with alcoholism for on the [facility] protocol receiving multivitamin, folate and thiamine. During admission, patient had multiple complaints including right upper quadrant pain. Patient has CT his abdomen/pelvis revealed hepatic steatosis, pericholecystic fluid with no ductal dilatation. Ultrasound showed pericholecystic 6 with negative Lundy sign. Nuclear medicine scan revealed no activity in the intrahepatic ducts compatible ducts or small bowel. Likely slightly disease. Patient was evaluated by gastroenterology for this issue. BOBBY, AMA, ASMA, SSA a and B, Ronquillo, scleroderma and double-stranded DNA all pending. Negative hepatitis panel. Noted patient had angiogram of the abdomen which revealed no focal stenosis of the SMA, MIC or celiac. Patient elevated troponin. Was seen by Dr. chaudhry. Echocardiogram revealed EF 55-6%. PA P 43 mmHg. Trace to mild TR. Possibly demand ischemia due to sepsis. Was on aspirin. Did receive/placed on heparin drip. This is currently on hold due to coagulopathic state. Patient has gram-positive cocci in blood. Infectious disease has been counseled. Currently on vancomycin for comfort.) I repeated blood cultures, sputum and urine culture today. Patient is 80% right carotid artery stenosis. Followed by Dr. Bassett. Patient was transferred to ICU with persistent hypotension increasing lactic acidosis in the setting of acute liver injury. Worsening renal function. Patient has received 2.5 L normal saline the present time his blood pressure appears stable. Patient is currently denying abdominal pain. SUBJECTIVE: 07/11: Currently resting in bed and asking when he can go home. Creatinine is elevated 2.3. Will bolus with additional fluid. Echocardiogram results noted. 07/12: Negligible urine output overnight. Culver placed. Short of breath this morning. Not requiring pressors 07/13: Patient in respiratory distress tachypneic breathing 40 breaths/min. Intermittently desaturating to low 80s on nasal cannula. Very lethargic hardly protecting airway. Emergently intubated and placed on mechanical ventilation. Currently on Bumex infusion urine output improving. However BUN/creatinine was 49/4.53. Chest x-ray today shows extensive right-sided infiltrate. Chest x- ray on 07/12 shows extensive right-sided lower lobe infiltrate but was clear on 07/10/2018. Indicates probable aspiration pneumonia 07/14: Intubated and placed on mechanical ventilation yesterday for severe hypoxemic respiratory failure. After intubation right pigtail chest tube placed for large effusion. Last 24 hours 1.4 L drained. Currently on broad- spectrum antibiotics. Remains septic renal function stable creatinine 4.57. Remains on Bumex drip urine output 2.4 L in 24 hours 07/15: Intubated off sedation waking up moving extremities. Chest x-ray and bedside ultrasound shows moderate to large left pleural effusion. Remains on Bumex drip 2.8 L urine output in 24 hours. Plan for left thoracentesis today. Bilirubin noted to be finding 7.5 today probably cholestasis. Previous HIDA scan showed questionable common bile duct obstruction versus hepatobiliary disease. Reconsult GI for further evaluation may need MRCP 07/16: Remains on mechanical ventilation. Acute kidney injury persists. Objective Vital Signs / I&O: Vital Signs 07/15/18 16:00 07/15/18 16:36 07/15/18 17:00 Temperature 98.8 F Pulse Rate 75 75 Respiratory Rate 21 20 19 Blood Pressure 160/99 H 162/76 H Pulse Oximetry 100 100 100 07/15/18 18:00 07/15/18 19:00 07/15/18 20:00 Temperature 97.6 F Pulse Rate 74 79 77 Respiratory Rate 19 23 21 Blood Pressure 163/77 H 144/68 H 145/70 H Pulse Oximetry 100 99 99 07/15/18 21:00 07/15/18 21:41 07/15/18 22:00 Temperature Pulse Rate 79 76 Respiratory Rate 21 21 20 Blood Pressure 144/69 H 142/66 H Pulse Oximetry 100 100 100 07/15/18 23:00 07/15/18 23:57 07/16/18 00:00 Temperature 97.6 F Pulse Rate 76 78 Respiratory Rate 20 19 21 Blood Pressure 136/68 138/68 Pulse Oximetry 99 99 99 07/16/18 01:00 07/16/18 02:00 07/16/18 03:00 Temperature Pulse Rate 77 78 78 Respiratory Rate 20 22 24 Blood Pressure 142/66 H 139/66 140/66 Pulse Oximetry 98 99 99 07/16/18 03:46 07/16/18 04:00 07/16/18 04:03 Temperature 98.5 F Pulse Rate 77 84 Respiratory Rate 21 28 H 31 H Blood Pressure 136/71 Pulse Oximetry 99 99 98 07/16/18 05:00 07/16/18 06:00 07/16/18 07:00 Temperature Pulse Rate 76 76 76 Respiratory Rate 19 18 17 Blood Pressure 130/60 137/64 136/63 Pulse Oximetry 98 99 98 07/16/18 08:00 07/16/18 08:56 07/16/18 09:00 Temperature 98.3 F Pulse Rate 75 79 Respiratory Rate 18 24 Blood Pressure 136/63 130/68 Pulse Oximetry 98 98 98 07/16/18 10:00 07/16/18 11:00 07/16/18 12:00 Temperature 97.8 F Pulse Rate 78 75 74 Respiratory Rate 17 16 15 Blood Pressure 128/58 L 129/60 136/65 Pulse Oximetry 97 97 97 07/16/18 12:35 07/16/18 13:00 07/16/18 14:00 Temperature Pulse Rate 74 74 Respiratory Rate 14 15 Blood Pressure 138/65 138/67 Pulse Oximetry 98 98 98 Intake & Output 07/15/18 07/16/18 07/16/18 18:59 06:59 18:59 Intake Total 2400 / 2400 950 / 950 100 / 100 Output Total 3580 / 3580 1450 / 1450 Balance -1180 / -1180 -500 / -500 100 / 100 Weight 76.1 kg Intake: IV 2400 / 2400 950 / 950 100 / 100 Bumex Inj 25 mg In 100 ml @ 1 100 / 100 100 / 100 MG/HR 4 mls/hr IV.CONT .Q24H [facility] Rx#:[id number] Diprivan 1000 mg/100 ml Inj 1, 100 / 100 100 / 100 000 mg In 100 ml @ 5 MCG/KG/MIN 2.376 mls/hr IV.CONT TITRATE PRN Rx#:[id number] NS Inj 1,000 ML @ 30 mls/hr IV. 1000 / 1000 CONT .Q24H [facility] Rx#:[id number] Alburx 5% Inj 500 ML @ 250 mls/ 500 / 500 500 / 500 hr IV.SIG Q12H [facility] Rx#:[id number] Cubicin Inj 400 MG In NS Inj 100 / 100 100 ML @ 200 mls/hr IV.SIG Q48H [facility] Rx#:[id number] Zyvox 600 mg Premix 300 ML @ 300 / 300 300 / 300 300 mls/hr IV.SIG Q12H [facility] Rx#: [id number] Zosyn 2.25 GM Premix 50 ML @ 100 / 100 50 / 50 100 mls/hr IV.SIG Q8H [facility] Rx#: [id number] KCl 20 mEq Premix Inj 20 meq In 200 / 200 100 ml @ 50 mls/hr IV.SIG Q2H [facility] Rx#:[id number] Oral 0 / 0 Output: Pleural Fluid 630 / 630 Urine Amount (Catheter) 2900 / 2900 1400 / 1400 Indwelling Urethral Catheter 2900 / 2900 1400 / 1400 Chest Tube Drainage 50 / 50 50 / 50 Right 50 / 50 50 / 50 Other: Date of Last Bowel Movement 07/10/18 07/10/18 07/10/18 # Bowel Movements 0 0 Result Diagrams: 07/15/18 09:04 07/16/18 10:45 Objective Remarks: GENERAL: Ill appearing 63-year-old male. SKIN: Warm and dry. HEAD: Atraumatic. Normocephalic. EYES: Pupils are unequal right 3 mm reactive left is 6 mm nonreactive ENT: Orotracheally intubated NECK: Trachea midline. CARDIOVASCULAR: Regular rate and rhythm. S1, S2 no S4. RESPIRATORY: Air entry equal bilaterally minimal crackles at the bases. Right chest tube. GASTROINTESTINAL: Abdomen soft, non-tender, nondistended. No guarding, bowel sounds present. MUSCULOSKELETAL: Extremities without clubbing, cyanosis, or edema. Left upper extremity currently in splint wrapped in Armen bandage NEUROLOGICAL: Patient is intubated sedated, with lightening patient does follow commands on bilateral upper extremities and withdraws bilateral lower extremity. Pupils are unequal right 3 mm reactive left is 6 mm nonreactive Assessment and Plan - Assessment and Plan Plan: Neuro/Psych: Acute metabolic encephalopathy Anisocoria EtOH abuse Recent cocaine/opiate abuse -inhaled. Denies intravenous Propofol for sedation and vent synchrony after intubation Hold CIWA protocol initiated with Lorazepam/haloperidol as needed MVI/ folate. Patient states he inhaled cocaine 4-5 days ago. Denies IV drug use. Discontinued acetaminophen and related products with elevated transaminases Stat CT of the head for unequal pupil, negative for acute findings CV: Severe sepsis Lactic acidosis Elevated troponin likely demand ischemia Right carotid artery stenosis Elevated CPK On Bumex infusion Lactates decreased to 2.[address] chaudhry. No intervention planned 2D echocardiogram revealed Normal left ventricular size. Wall thickness is normal. The left ventricular systolic function is normal with an estimated ejection fraction in the range of 55-60%. Not on aspirin or heparin at this time due to thrombocytopenia Troponin trending downward. Followed by vascular surgery for right carotid artery stenosis 80%. Will need intervention when clinically stable. Resp: Acute hypoxemic respiratory failure Right lower lobe pneumonia with effusion Emphysematous type changes on CT neck Hyperammonemia Hypoalbuminemia Tobacco abuse Emergently intubated and placed on mechanical ventilation. [facility] 07/13/2018 Bedside ultrasound shows large right pleural effusion, status post pigtail right chest tube with 1.4 L drained since placement on 07/13/2018 Plan for left thoracentesis today 07/15/2018 Vent bundle. Albuterol/ipratropium aerosols every 4 hours with albuterol aerosols every 2 hours as needed dyspnea Follow-up on chest x-ray and ABG Tobacco cessation will be encouraged Sputum cultures negative for growth so far Continue daily spontaneous breathing trials GI: Elevated transaminases Elevated total bilirubin Poss acalc jody Hypoalbuminemia Noted CT abdomen/pelvis revealed possible early cholecystitis. Pericholecystic fluid. Ultrasound revealed negative Lundy sign. Nuclear medicine scan revealed no activity in the intrahepatic ductal compound bile duct or small bowel. 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 Patent MIC, celiac. Evaluated by gastroenterology. Hepatitis panel negative. Pending ceruloplasmin, BOBBY, AMA, ASMA, SSA AMB, anti-Ronquillo, RP, scleroderma, double-stranded DNA, hemochromatosis Currently on lactulose 30 cc 3 times daily for elevated ammonia. Start tube feeds with Nepro. Endo: Sliding scale insulin with Accu-Cheks to maintain euglycemia/every 6 hours low regimen TSH 1. Cortisol 25 Renal: Acute kidney failure Culver catheter if indicated for accurate I's and O's in a critical patient with severe renal failure and on Bumex drip Good urine output on Bumex drip, 2.8 L in 24 hours BUN/creatinine elevated nephrology following. Creatinine is 4.58 today however nonoliguric urine eosinophils negative, Monitor urine output Avoid nephrotoxic medication. Discontinued vancomycin 07/11 Heme: Macrocytic anemia Thrombocytopenia Coagulopathic state Follow-up on PT/INR/PTT and fibrinogen No indication for transfusion of blood products at this time ID: MRSA bacteremia Septic shock Right lower lobe pneumonia/aspiration 2D transthoracic echocardiogram revealed no signs of endocarditis. Infectious disease following Currently on daptomycin and Zosyn. Zyvox added for gram-positive coverage for presumed pneumonia Pleural fluid studies no evidence of infection MSK: Left posterior olecranon fracture Followed by Dr. Blanco, splint immobilized. Follow-up in 2 weeks with x-rays CT left elbow today FEN: Replace electrolytes as clinically indicated Access -Utilize peripheral IV. Central line if indicated Prophylaxis -GI -pantoprazole -DVT-SCD/hold off chemical DVT prophylaxis due to severe thrombocytopenia Overall impression: Patient remains very critically ill, intubated for worsening acute hypoxemic respiratory failure. Care complicated by severe acute renal failure and ongoing sepsis. Ongoing evaluation of liver function. Critical care time 40 minutes aside from procedures
--- NOTE | 2018-07-16 19:33 | P.PNGI ---
Subjective Interval history: Intubated and mechanically ventilated Physical Exam Vital signs: Vital Signs 07/15/18 20:00 07/15/18 21:00 07/15/18 21:41 Temperature 97.6 F Pulse Rate 77 79 Respiratory Rate 21 21 21 Blood Pressure 145/70 H 144/69 H Pulse Oximetry 99 100 100 07/15/18 22:00 07/15/18 23:00 07/15/18 23:57 Temperature Pulse Rate 76 76 Respiratory Rate 20 20 19 Blood Pressure 142/66 H 136/68 Pulse Oximetry 100 99 99 07/16/18 00:00 07/16/18 01:00 07/16/18 02:00 Temperature 97.6 F Pulse Rate 78 77 78 Respiratory Rate 21 20 22 Blood Pressure 138/68 142/66 H 139/66 Pulse Oximetry 99 98 99 07/16/18 03:00 07/16/18 03:46 07/16/18 04:00 Temperature 98.5 F Pulse Rate 78 77 Respiratory Rate 24 21 28 H Blood Pressure 140/66 Pulse Oximetry 99 99 99 07/16/18 04:03 07/16/18 05:00 07/16/18 06:00 Temperature Pulse Rate 84 76 76 Respiratory Rate 31 H 19 18 Blood Pressure 136/71 130/60 137/64 Pulse Oximetry 98 98 99 07/16/18 07:00 07/16/18 08:00 07/16/18 08:56 Temperature 98.3 F Pulse Rate 76 75 Respiratory Rate 17 18 Blood Pressure 136/63 136/63 Pulse Oximetry 98 98 98 07/16/18 09:00 07/16/18 10:00 07/16/18 11:00 Temperature Pulse Rate 79 78 75 Respiratory Rate 24 17 16 Blood Pressure 130/68 128/58 L 129/60 Pulse Oximetry 98 97 97 07/16/18 12:00 07/16/18 12:35 07/16/18 13:00 Temperature 97.8 F Pulse Rate 74 74 Respiratory Rate 15 14 Blood Pressure 136/65 138/65 Pulse Oximetry 97 98 98 07/16/18 14:00 07/16/18 15:00 07/16/18 16:00 Temperature 97.9 F Pulse Rate 74 74 73 Respiratory Rate 15 26 H 27 H Blood Pressure 138/67 138/70 134/62 Pulse Oximetry 98 97 97 07/16/18 16:56 07/16/18 17:00 12/12/18 18:00 Temperature Pulse Rate 74 75 Respiratory Rate 21 30 H Blood Pressure 133/64 149/71 H Pulse Oximetry 97 97 97 Intake & Output 07/16/18 07/16/18 07/17/18 06:59 18:59 06:59 Intake Total 950 / 950 100 / 100 Output Total 1450 / 1450 2275 / 2275 Balance -500 / -500 -2175 / -2175 Weight 76.1 kg Intake: IV 950 / 950 100 / 100 Bumex Inj 25 mg In 100 ml @ 1 100 / 100 MG/HR 4 mls/hr IV.CONT .Q24H [facility] Rx#:[id number] Diprivan 1000 mg/100 ml Inj 1, 100 / 100 000 mg In 100 ml @ 5 MCG/KG/MIN 2.376 mls/hr IV.CONT TITRATE PRN Rx#:[id number] Alburx 5% Inj 500 ML @ 250 mls/ 500 / 500 hr IV.SIG Q12H [facility] Rx#:[id number] Zyvox 600 mg Premix 300 ML @ 300 / 300 300 mls/hr IV.SIG Q12H [facility] Rx#: [id number] Zosyn 2.25 GM Premix 50 ML @ 50 / 50 100 mls/hr IV.SIG Q8H [facility] Rx#: [id number] Oral 0 / 0 0 / 0 Output: Urine Amount (Catheter) 1400 / 1400 2225 / 2225 Indwelling Urethral Catheter 1400 / 1400 2225 / 2225 Chest Tube Drainage 50 / 50 50 / 50 Right 50 / 50 50 / 50 Other: Date of Last Bowel Movement 07/10/18 07/10/18 # Bowel Movements 0 0 - Constitutional chronically ill appearing - Routine HEENT Exam Head: Present: normocephalic - Routine Respiratory Exam Present: patient mechanically ventilated, crackles Comments: Right chest tube - Routine Cardiovascular Exam Present: RRR, S1, S2 - Routine Abdominal Exam Present: soft, normoactive bowel sounds. Absent: tenderness, firm - Routine Skin Exam Present: dry, warm - Urinary Catheter Management Indwelling Urethral Catheter Cath placed during this visit: yes Reason for continuing: Hourly intake/output Insertion date: 07/12/18 Insertion time: 07:45 Results - Labs CBC & Chem 7: 07/15/18 09:04 07/16/18 10:45 Laboratory Results - last 24 hr 07/16/18 07/16/18 10:27 10:45 Sodium 145 Potassium 3.1 L Chloride 105 Carbon Dioxide 28.2 Anion Gap 12 BUN 76 H Creatinine 3.70 H Estimated GFR 17 L POC Glucose 105 Random Glucose 101 Calcium 8.3 L Phosphorus 5.7 H Albumin 3.1 L Microbiology 07/15/18 11:45 Fluid - Pleural fluid Gram Stain - Final 07/15/18 11:45 Fluid - Pleural fluid Body Fluid Culture - Preliminary No growth in 24 hours 07/13/18 08:55 Fluid - Pleural fluid Gram Stain - Final 07/13/18 08:55 Fluid - Pleural fluid Body Fluid Culture - Final No growth in 72 hours (aerobically and anaerobically ) Assessment and Plan (1) Liver failure Status: Acute Code(s): K72.90 - Hepatic failure, unspecified without coma (2) Hyperbilirubinemia Status: Acute Code(s): E80.6 - Other disorders of bilirubin metabolism - Plan Assessment: - Elevated LFTs with findings indicative of cirrhosis He denies IV drug use, tattoos or any high risk sexual behaviors. Denies personal or family history of liver issues. Does admit to smoking cocaine. Patient states he smokes 1 pack/day and drinks a sixpack of beer daily. LFTs trending up since admission. Pt was transferred to [facility] overnight after becoming hypotensive, now on a [place]on gtt. Liver work up: BOBBY, ASMA, AMA pending. Ceruloplasmin pending. AAT pending. AFP-3.7. Iron-123 TIBC-217 %sat-56.7 [id number] Hepatitis panel negative. 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 The SMA and MIC are patent. Hepatic steatosis. HIDA (07/09) No activity in intrahepatic ducts, common duct or small bowel. Considerations include include acute obstruction of the common duct and diffuse hepatocellular disease. CT scan shows no dilatation of the common duct or intrahepatic ducts. Diffuse hepatocellular disease is suspected. Given history of cirrhosis, exam is unreliable, do not suspect acute cholecystitis. US gallbladder (07/08) Small, nonspecific pericholecystic fluid without stones , wall thickening or sonographic Lundy's sign. The fluid may be on the basis of hepatocellular disease. The ultrasound does not support acute cholecystitis. Fatty infiltrated and mildly enlarged liver. - Anemia- He denies ever having had a EGD or colonoscopy in the past. No obvious bleeding - Coagulopathy, thrombocytopenia, hypoalbuminemia- in setting of cirrhosis - MRSA bacteremia- ID following, unclear etiology, possible need for LESLIE, repeat blood cultures pending - Carotid artery stenosis- vascular surgery following (07/11) Renal indices increased today, therefore cardiac cath has been cancelled. Pt states he has been unable to urinate at all since last night even though he feels like he needs to. Discussed with RN to let attending know may need bladder scan vs ultrasound. Pt continues to have diffuse abdominal pain. Denies nausea, vomiting. Has not had BM. H/H trending down, no obvious bleeding, occult stool pending. LFTs trending down some today, liver work up still pending. 07/12/2018 patient continues in the intensive care setting, more awake today and answering a few simple questions, tachycardic labs reviewed which showed current hemoglobin 10, AST 1047, ALT 1219, bilirubin 4.9, LFTs are trending down , hepatocellular disease could be related to alcohol versus obstruction versus medications, possible fatty liver versus shock liver. Need to continue to monitor for any gallbladder disease. Patient will need to stabilize further before any further GI procedures can be performed as well as any vascular clearance. GI will see and follow and monitor labs as needed, appreciate vascular surgery and ID input. Current INR 2.4 which is trending down. 07/15/2018 Patient critically ill in ICU. Intubated and mechanically ventilated. 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 The SMA and MIC are patent. Hepatic steatosis; Highly indicative of ischemic hepatitis-shock liver Cardiac stability and increasing cardiac output needed to aid liver function 07/16/2018 Patient intubated and mechanically ventilated No new labs for today. Overall status unchanged. Liver function panel in conjunction with CTA abdomen and pelvis as noted above highly indicative of ischemic hepatitis/shock liver Plan -N.p.o. -Recommend consulting IR for placement of G-tube for parental feedings due intestinal varices -Monitor labs hemoglobin hematocrit and INR -CMP in the a.m. -PPI -Hemochromatosis workup pending -Supportive care -Plan of care as per critical care medicine This patient has been seen by myself and Dr. Medrano and this note is written on his behalf - Attending Attestation Dr. Medrano
[2018-07-16] MEDS: Propofol 1000 mg/100 ml Inj 1,000 MG/100 ML BOTTLE IV.CONT PRN (23:57)
[2018-07-17] MEDS: Oral Hygiene Kit OROPHARYNG SCH ×4 (03:02→17:59)
[2018-07-17] MEDS: Piperacil/Tazo 2.25 GM Premix 50 ML IV.SIG SCH ×3 (03:02→18:14)
[2018-07-17] MEDS: Albumin Human 5% Inj 500 ML IV.SIG SCH (03:02)
[2018-07-17 07:42] LABS: Albumin 3.5 g/dL (3.4-5.0); Calcium 8.6 mg/dL (8.5-10.1); Carbon Dioxide 30.3 meq/L (21.0-32.0); Phosphorus 4.8 mg/dL (2.5-4.9)
[2018-07-17 07:55] LABS: Potassium 2.8 meq/L (3.5-5.1)
[2018-07-17] MEDS: Pantoprazole Inj 40 MG Vial IV.PUSH SCH (08:36)
[2018-07-17] MEDS: Propofol 1000 mg/100 ml Inj 1,000 MG/100 ML BOTTLE IV.CONT PRN ×3 (08:36→21:00)
--- NOTE | 2018-07-17 10:29 | P.PNNP ---
Subjective Interval history: Remains on ventilator with light sedation, patients eyes are open and nodding to questions. Creatinine continues to improve at 3.28 today with good urinary output. <Edel Lantigua - Last Filed: 07/17/18 15:29> Physical Exam Vital signs: Vital Signs 07/16/18 11:00 07/16/18 12:00 07/16/18 12:35 Temperature 97.8 F Pulse Rate 75 74 Respiratory Rate 16 15 Blood Pressure 129/60 136/65 Pulse Oximetry 97 97 98 07/16/18 13:00 07/16/18 14:00 07/16/18 15:00 Temperature Pulse Rate 74 74 74 Respiratory Rate 14 15 26 H Blood Pressure 138/65 138/67 138/70 Pulse Oximetry 98 98 97 07/16/18 16:00 07/16/18 16:56 07/16/18 17:00 Temperature 97.9 F Pulse Rate 73 74 Respiratory Rate 27 H 21 Blood Pressure 134/62 133/64 Pulse Oximetry 97 97 97 07/16/18 18:00 07/16/18 19:00 07/16/18 20:00 Temperature 98.0 F Pulse Rate 75 78 75 Respiratory Rate 30 H 31 H 31 H Blood Pressure 149/71 H 155/73 H 152/70 H Pulse Oximetry 97 98 97 07/16/18 21:00 07/16/18 21:34 07/16/18 22:00 Temperature Pulse Rate 75 75 Respiratory Rate 31 H 21 25 H Blood Pressure 153/70 H 141/65 H Pulse Oximetry 97 98 97 07/16/18 23:00 07/17/18 00:00 07/17/18 01:00 Temperature 98.2 F Pulse Rate 77 75 74 Respiratory Rate 20 18 16 Blood Pressure 156/72 H 155/72 H 157/71 H Pulse Oximetry 97 97 97 07/17/18 02:00 07/17/18 03:00 07/17/18 04:00 Temperature 98.1 F Pulse Rate 74 68 67 Respiratory Rate 19 15 16 Blood Pressure 157/72 H 154/71 H 155/72 H Pulse Oximetry 97 98 99 07/17/18 04:37 07/17/18 05:00 07/17/18 06:00 Temperature Pulse Rate 64 76 Respiratory Rate 16 15 32 H Blood Pressure 154/71 H 149/68 H Pulse Oximetry 98 99 98 07/17/18 08:00 07/17/18 09:42 Temperature Pulse Rate 69 Respiratory Rate 24 Blood Pressure Pulse Oximetry 97 Intake & Output 07/16/18 07/17/18 07/17/18 18:59 06:59 18:59 Intake Total 150 / 150 1800 / 1800 100 / 100 Output Total 2275 / 2275 2670 / 2670 Balance -2125 / -2125 -870 / -870 100 / 100 Weight 73.4 kg Intake: IV 150 / 150 1800 / 1800 100 / 100 Bumex Inj 25 mg In 100 ml @ 1 100 / 100 MG/HR 4 mls/hr IV.CONT .Q24H [facility] Rx#:[id number] Diprivan 1000 mg/100 ml Inj 1, 100 / 100 100 / 100 000 mg In 100 ml @ 5 MCG/KG/MIN 2.376 mls/hr IV.CONT TITRATE PRN Rx#:[id number] Alburx 5% Inj 500 ML @ 250 mls/ 1000 / 1000 hr IV.SIG Q12H [facility] Rx#:[id number] Zyvox 600 mg Premix 300 ML @ 600 / 600 300 mls/hr IV.SIG Q12H [facility] Rx#: [id number] Zosyn 2.25 GM Premix 50 ML @ 50 / 50 100 / 100 100 mls/hr IV.SIG Q8H [facility] Rx#: [id number] Oral 0 / 0 Output: Urine Amount (Catheter) 2224 / 5 2650 / 2650 Indwelling Urethral Catheter 2224 / 222 2650 / 2650 Chest Tube Drainage 50 / 50 20 / 20 Right 50 / 50 20 / 20 Other: Date of Last Bowel Movement 07/10/18 07/10/18 07/10/18 # Bowel Movements 0 0 Narrative: GENERAL: Sedated and intubated. SKIN: Warm and dry. NECK: Supple, trachea midline. No JVD. CARDIOVASCULAR: Regular rate and rhythm without murmurs, gallops, or rubs. RESPIRATORY: Breath sounds equal right-sided chest tube. Orally intubated. GASTROINTESTINAL: Abdomen soft, non-tender, nondistended. GENITOURINARY: Indwelling Culver catheter, light yellow urine. MUSCULOSKELETAL: No cyanosis, no edema. . . - Urinary Catheter Management Indwelling Urethral Catheter Cath placed during this visit: yes Reason for continuing: Hourly intake/output Insertion date: 07/12/18 Insertion time: 07:45 <Edel Lantigua - Last Filed: 07/17/18 15:29> Vital signs: Vital Signs 07/16/18 21:34 07/16/18 22:00 07/16/18 23:00 Temperature Pulse Rate 75 77 Respiratory Rate 21 25 H 20 Blood Pressure 141/65 H 156/72 H Pulse Oximetry 98 97 97 07/17/18 00:00 07/17/18 01:00 07/17/18 02:00 Temperature 98.2 F Pulse Rate 75 74 74 Respiratory Rate 18 16 19 Blood Pressure 155/72 H 157/71 H 157/72 H Pulse Oximetry 97 97 97 07/17/18 03:00 07/17/18 04:00 07/17/18 04:37 Temperature 98.1 F Pulse Rate 68 67 Respiratory Rate 15 16 16 Blood Pressure 154/71 H 155/72 H Pulse Oximetry 98 99 98 07/17/18 05:00 07/17/18 06:00 07/17/18 07:00 Temperature Pulse Rate 64 76 69 Respiratory Rate 15 32 H 21 Blood Pressure 154/71 H 149/68 H 151/68 H Pulse Oximetry 99 98 98 07/17/18 08:00 07/17/18 09:00 07/17/18 09:42 Temperature 97.4 F L Pulse Rate 70 68 Respiratory Rate 19 31 H 24 Blood Pressure 154/74 H 149/68 H Pulse Oximetry 98 97 97 07/17/18 10:00 07/17/18 11:00 07/17/18 11:32 Temperature Pulse Rate 69 70 Respiratory Rate 23 23 22 Blood Pressure 159/72 H 157/73 H Pulse Oximetry 97 97 97 07/17/18 12:00 07/17/18 13:00 07/17/18 14:00 Temperature 98.4 F Pulse Rate 72 73 71 Respiratory Rate 19 20 19 Blood Pressure 147/65 H 159/71 H 153/70 H Pulse Oximetry 96 97 97 07/17/18 15:00 07/17/18 16:00 07/17/18 17:00 Temperature 98.2 F Pulse Rate 72 69 72 Respiratory Rate 19 13 19 Blood Pressure 151/66 H 150/67 H 156/72 H Pulse Oximetry 96 96 97 07/17/18 17:38 07/17/18 18:00 07/17/18 20:28 Temperature 98.6 F Pulse Rate 71 Respiratory Rate 19 19 24 Blood Pressure 157/70 H Pulse Oximetry 97 97 96 Intake & Output 07/17/18 07/17/18 07/18/18 06:59 18:59 06:59 Intake Total 2800 / 2800 450 / 450 Output Total 2670 / 2670 3870 / 3870 Balance 130 / 130 -3420 / -3420 Weight 73.4 kg Intake: IV 2800 / 2800 450 / 450 Bumex Inj 25 mg In 100 ml @ 1 100 / 100 MG/HR 4 mls/hr IV.CONT .Q24H [facility] Rx#:[id number] Diprivan 1000 mg/100 ml Inj 1, 100 / 100 200 / 200 000 mg In 100 ml @ 5 MCG/KG/MIN 2.376 mls/hr IV.CONT TITRATE PRN Rx#:[id number] NS Inj 1,000 ML @ 30 mls/hr IV. 1000 / 1000 CONT .Q24H [facility] Rx#:[id number] Alburx 5% Inj 500 ML @ 250 mls/ 1000 / 1000 hr IV.SIG Q12H [facility] Rx#:[id number] Zyvox 600 mg Premix 300 ML @ 600 / 600 300 mls/hr IV.SIG Q12H [facility] Rx#: [id number] Zosyn 2.25 GM Premix 50 ML @ 100 / 100 50 / 50 100 mls/hr IV.SIG Q8H [facility] Rx#: [id number] KCl 20 mEq Premix Inj 20 meq In 100 / 100 100 ml @ 50 mls/hr IV.SIG Q2H [facility] Rx#:[id number] Oral 0 / 0 Output: Urine Amount (Catheter) 2650 / 2650 3800 / 3800 Indwelling Urethral Catheter 2650 / 2650 3800 / 3800 Chest Tube Drainage 20 / 20 70 / 70 Right 20 / 20 70 / 70 Other: Date of Last Bowel Movement 07/10/18 07/10/18 # Bowel Movements 0 0 - Urinary Catheter Management Indwelling Urethral Catheter Cath placed during this visit: no <Dina Rivas - Last Filed: 07/17/18 21:22> Assessment and Plan - Assessment (1) Acute kidney injury Code(s): N17.9 - Acute kidney failure, unspecified Status: Acute Plan: No previous history of chronic kidney disease. Creatinine started to increase on the 6th NEERU possible ATN from sepsis or contrast Nephropathy. Creatinine started to increase about 48 hours after receiving contrast. Also possibility of AIN with vancomycin use however random level not elevated. Urine EOS negative. CT of abdomen shows kidney with in normal limits. On bumex gtt and albumin will change bumex gtt to Bumex 2 mg IV TID and discontinue albumin, creatinine continues to improve at 3.2, UOP at 4.8 L/24 hours. Hypokalemia, replacement ordered. Maintain strict I+O, indwelling Culver catheter. Avoid nephrotoxins, Will follow UOP and BMP. Labs in AM <Edel Lantigua - Last Filed: 07/17/18 15:29> - Assessment (1) Acute kidney injury Code(s): N17.9 - Acute kidney failure, unspecified Status: Acute Plan: Patient seen and examined, agree with above. Creatinine is better at 3.2, D/C Bumex gtt and start IV Bumex. Follow the urine out put and BMP. <Dina Rivas - Last Filed: 07/17/18 21:22>
[2018-07-17] MEDS: Mupirocin 2% Nasal Oint Topical Syringe EACH NARE SCH ×2 (10:44→21:15)
[2018-07-17] MEDS: Chlorhexidine 0.12% Oral Kit 15 ML UDC OROPHARYNG SCH ×2 (10:44→21:15)
[2018-07-17] MEDS: Sod Chloride 0.9% Inj 1,000 ML IV.CONT SCH (10:44)
[2018-07-17] MEDS: Potassium Chlor 20 mEq Premix 20 MEQ/100 ML PIGGYBACK IV.SIG SCH ×2 (11:27→14:17)
[2018-07-17] MEDS: Bumetanide Inj 25 MG/100 ML BAG IV.CONT SCH (12:09)
--- NOTE | 2018-07-17 13:17 | P.PNCA ---
Subjective Interval history: Intubated, on the vent, sedated Medications and Allergies Active Medications: Active Medications Al Hydroxide/Mg Hydroxide (Milk Of Magnjeb Liq) 30 ml PO Q12H PRN PRN Reason: Mild Constipation Albuterol (Albuterol Neb (Prn)) 2.5 mg NEB Q2HR NEB PRN PRN Reason: DYSPNEA Albuterol (Duoneb Neb (Prn)) 1 ampul NEB Q2HR NEB PRN PRN Reason: SHORTNESS OF BREATH Last Admin: 07/14/18 08:20 Dose: 1 ampul Chlorhexidine Gluconate (Peridex 0.12% Oral Kit) 15 ml OROPHARYNG BID@0800, 2000 [facility] Last Admin: 07/17/18 10:44 Dose: 15 ml Flumazenil (Romazecon Inj) 0.2 mg IV.PUSH Q1M PRN PRN Reason: OVERSEDATION Haloperidol Lactate (Haldol Inj) 1 mg IV.PUSH Q15M PRN PRN Reason: for severe agitation Hydralazine HCl (Apresoline Inj) 10 mg IV.PUSH Q1H PRN PRN Reason: Sys Bp Greater Than 165 [facility] Last Admin: 07/15/18 18:17 Dose: 10 mg Daptomycin 400 mg/ Sodium (Chloride) 100 mls @ 200 mls/hr IV.SIG Q48H [facility] Last Infusion: 07/15/18 11:42 Dose: Infused Piperacillin/Tazobactam/Dextrose (Zosyn 2.25 Gm Premix) 50 mls @ 100 mls/hr IV.SIG Q8H [facility] Last Admin: 07/17/18 12:03 Dose: 100 mls/hr Sodium Chloride (Ns Inj) 1,000 mls @ 30 mls/hr IV.CONT .Q24H [facility] Last Admin: 07/17/18 10:44 Dose: 30 mls/hr Bumetanide (Bumex Inj) 25 mg in 100 mls @ 4 mls/hr IV.CONT .Q24H [facility] Last Admin: 07/17/18 12:09 Dose: 1 mg/hr, 4 mls/hr Albumin Human (Alburx 5% Inj) 500 mls @ 250 mls/hr IV.SIG Q12H [facility] Last Infusion: 07/17/18 05:04 Dose: Infused Propofol (Diprivan 1000 Mg/100 Ml Inj) 1,000 mg in 100 mls @ 2.376 mls/hr IV.CONT TITRATE PRN; Protocol PRN Reason: Per Protocol Last Admin: 07/17/18 08:36 Dose: 20 mcg/kg/min, 9.5 mls/hr Potassium Chloride (Kcl 20 Meq Premix Inj) 20 meq in 100 mls @ 50 mls/hr IV.SIG Q2H [facility] Stop: 07/17/18 13:59 Last Admin: 07/17/18 11:27 Dose: 50 mls/hr Labetalol HCl (Trandate Inj) 10 mg IV.PUSH Q1H PRN PRN Reason: Sbp>165, Dbp>90, Hr>65 Lactulose (Lactulose Liq) 30 ml PO DAILY PRN PRN Reason: SEVERE CONSITIPATION Lactulose (Lactulose Liq) 30 ml PO TID [facility] Last Admin: 07/17/18 08:37 Dose: Not Given Lorazepam (Ativan) 1 mg PO Q4H PRN PRN Reason: for CIWA 8-10 Lorazepam (Ativan) 2 mg PO Q2H PRN PRN Reason: for CIWA 11-14 Lorazepam (Ativan Inj) 2 mg IV.PUSH Q2H PRN PRN Reason: for CIWA 11-14 Last Admin: 07/12/18 23:49 Dose: 2 mg Lorazepam (Ativan Inj) 2 mg IV.PUSH Q1H PRN PRN Reason: for CIWA 15-20 Last Admin: 07/11/18 21:37 Dose: 2 mg Lorazepam (Ativan Inj) 2 mg IV.PUSH Q15M PRN PRN Reason: for CIWA > 20 Lorazepam (Ativan Inj) 1 mg IV.PUSH Q4H PRN PRN Reason: for CIWA 8-10 Last Admin: 07/12/18 10:48 Dose: 1 mg Miscellaneous Medication () 1 each OROPHARYNG 0000,0400,1200,1600 [facility] Last Admin: 07/17/18 12:10 Dose: 1 each Morphine Sulfate (Morphine Inj) 2 mg IV.PUSH Q4H PRN PRN Reason: BREAKTHROUGH PAIN Last Admin: 07/16/18 04:05 Dose: 2 mg Mupirocin (Bactroban 2% Nasal Oint) 1 applicatio EACH NARE BID [facility] Last Admin: 07/17/18 10:44 Dose: 1 applicatio Naloxone HCl (Narcan Inj) 0.4 mg IV.PUSH UNSCH PRN PRN Reason: SEE LABEL COMMENTS Ondansetron HCl (Zofran Inj) 4 mg IV.PUSH Q6H PRN PRN Reason: NAUSEA OR VOMITING Pantoprazole Sodium (Protonix Inj) 40 mg IV.PUSH DAILY [facility] Last Admin: 07/17/18 08:36 Dose: 40 mg Sennosides (Senokot) 17.2 mg PO Q12H PRN PRN Reason: Moderate Constipation Sodium Chloride (Ns Flush) 2 ml IV.FLUSH PRN PRN PRN Reason: FLUSH AFTER USING IV ACCESS Sodium Chloride (Ns Flush) 2 ml IV.FLUSH BID [facility] Last Admin: 07/17/18 10:44 Dose: Not Given Allergies Allergy/AdvReac Type Severity Reaction Status Date / Time No Known Allergies Allergy Verified 07/08/18 12:30 Home Medications Medication Instructions Recorded Confirmed Type No Known Home Medications 07/08/18 07/08/18 History Physical Exam Vital signs: Vital Signs 07/16/18 14:00 07/16/18 15:00 07/16/18 16:00 Temperature 97.9 F Pulse Rate 74 74 73 Respiratory Rate 15 26 H 27 H Blood Pressure 138/67 138/70 134/62 Pulse Oximetry 98 97 97 07/16/18 16:56 07/16/18 17:00 07/16/18 18:00 Temperature Pulse Rate 74 75 Respiratory Rate 21 30 H Blood Pressure 133/64 149/71 H Pulse Oximetry 97 97 97 07/16/18 19:00 07/16/18 20:00 07/16/18 21:00 Temperature 98.0 F Pulse Rate 78 75 75 Respiratory Rate 31 H 31 H 31 H Blood Pressure 155/73 H 152/70 H 153/70 H Pulse Oximetry 98 97 97 07/16/18 21:34 07/16/18 22:00 07/16/18 23:00 Temperature Pulse Rate 75 77 Respiratory Rate 21 25 H 20 Blood Pressure 141/65 H 156/72 H Pulse Oximetry 98 97 97 07/17/18 00:00 07/17/18 01:00 07/17/18 02:00 Temperature 98.2 F Pulse Rate 75 74 74 Respiratory Rate 18 16 19 Blood Pressure 155/72 H 157/71 H 157/72 H Pulse Oximetry 97 97 97 07/17/18 03:00 07/17/18 04:00 07/17/18 04:37 Temperature 98.1 F Pulse Rate 68 67 Respiratory Rate 15 16 16 Blood Pressure 154/71 H 155/72 H Pulse Oximetry 98 99 98 07/17/18 05:00 07/17/18 06:00 07/17/18 08:00 Temperature Pulse Rate 64 76 69 Respiratory Rate 15 32 H Blood Pressure 154/71 H 149/68 H Pulse Oximetry 99 98 07/17/18 09:42 07/17/18 11:32 Temperature Pulse Rate Respiratory Rate 24 22 Blood Pressure Pulse Oximetry 97 97 Intake & Output 07/16/18 07/17/18 07/17/18 18:59 06:59 18:59 Intake Total 150 / 150 2800 / 2800 200 / 200 Output Total 2275 / 2275 2670 / 2670 Balance -2125 / -2125 130 / 130 200 / 200 Weight 161 lb 13.109 oz Intake: IV 150 / 150 2800 / 2800 200 / 200 Bumex Inj 25 mg In 100 ml @ 1 100 / 100 100 / 100 MG/HR 4 mls/hr IV.CONT .Q24H [facility] Rx#:[id number] Diprivan 1000 mg/100 ml Inj 1, 100 / 100 100 / 100 000 mg In 100 ml @ 5 MCG/KG/MIN 2.376 mls/hr IV.CONT TITRATE PRN Rx#:[id number] NS Inj 1,000 ML @ 30 mls/hr IV. 1000 / 1000 CONT .Q24H [facility] Rx#:[id number] Alburx 5% Inj 500 ML @ 250 mls/ 1000 / 1000 hr IV.SIG Q12H [facility] Rx#:[id number] Zyvox 600 mg Premix 300 ML @ 600 / 600 300 mls/hr IV.SIG Q12H [facility] Rx#: [id number] Zosyn 2.25 GM Premix 50 ML @ 50 / 50 100 / 100 100 mls/hr IV.SIG Q8H [facility] Rx#: [id number] Oral 0 / 0 Output: Urine Amount (Catheter) 2224 / 2224 2650 / 2650 Indwelling Urethral Catheter 2224 2650 / 2650 Chest Tube Drainage 50 / 50 20 / 20 Right 50 / 50 20 / 20 Other: Date of Last Bowel Movement 12/06/18 12/06/18 12/06/18 # Bowel Movements 0 0 Narrative: GENERAL: Sedated and intubated. SKIN: Warm and dry. NECK: Supple, trachea midline. No JVD. CARDIOVASCULAR: Regular rate and rhythm without murmurs, gallops, or rubs. RESPIRATORY: Breath sounds equal right-sided chest tube. Orally intubated. GASTROINTESTINAL: Abdomen soft, non-tender, nondistended. MUSCULOSKELETAL: No cyanosis, trace edema. - Urinary Catheter Management Indwelling Urethral Catheter Cath placed during this visit: yes Reason for continuing: Hourly intake/output Insertion date: 07/12/18 Insertion time: 07:45 Results 07/15/18 09:04 07/17/18 05:41 Comprehensive Metabolic Panel 07/16/18 07/17/18 Range/Units 10:45 05:41 Sodium 145 146 H (136-145) meq/L Potassium 3.1 L 2.8 L* (3.5-5.1) meq/L Chloride 105 104 (98-107) meq/L Carbon Dioxide 28.2 30.3 (21.0-32.0) meq/L BUN 76 H 78 H (7-18) mg/dL Creatinine 3.70 H 3.28 H (0.60-1.30) mg/dL Calcium 8.3 L 8.6 (8.5-10.1) mg/dL Albumin 3.1 L 3.5 (3.4-5.0) g/dL Intake and Output 07/16/18 07/17/18 07/17/18 22:59 06:59 14:59 Intake Total 0 / 0 2800 / 2800 200 / 200 Output Total 2275 / 2275 2670 / 2670 Balance -2275 / -2275 130 / 130 200 / 200 Intake: IV 2800 / 2800 200 / 200 Bumex Inj 25 mg In 100 ml @ 1 100 / 100 MG/HR 4 mls/hr IV.CONT .Q24H [facility] Rx#:[id number] Diprivan 1000 mg/100 ml Inj 1, 100 / 100 100 / 100 000 mg In 100 ml @ 5 MCG/KG/MIN 2.376 mls/hr IV.CONT TITRATE PRN Rx#:[id number] NS Inj 1,000 ML @ 30 mls/hr IV. 1000 / 1000 CONT .Q24H [facility] Rx#:[id number] Alburx 5% Inj 500 ML @ 250 mls/ 1000 / 1000 hr IV.SIG Q12H [facility] Rx#:[id number] Zyvox 600 mg Premix 300 ML @ 600 / 600 300 mls/hr IV.SIG Q12H [facility] Rx#: [id number] Zosyn 2.25 GM Premix 50 ML @ 100 / 100 100 mls/hr IV.SIG Q8H [facility] Rx#: [id number] Oral 0 / 0 Output: Urine Amount (Catheter) 2224 2650 / 2650 Indwelling Urethral Catheter 2224 2650 / 2650 Chest Tube Drainage 50 / 50 20 / 20 Right 50 / 50 20 / 20 Other: Date of Last Bowel Movement 07/10/18 07/10/18 07/10/18 # Bowel Movements 0 0 Weight 161 lb 13.109 oz Assessment and Plan - Assessment (1) Chest pain Code(s): R07.9 - Chest pain, unspecified Status: Acute (2) Elevated troponin level Code(s): R74.8 - Abnormal levels of other serum enzymes Status: Acute (3) Liver failure Code(s): K72.90 - Hepatic failure, unspecified without coma Status: Acute (4) Hyperbilirubinemia Code(s): E80.6 - Other disorders of bilirubin metabolism Status: Acute - Plan Still intubated, on the vent. We will continue conservative management for his recent NSTEMI. We will continue post ME care. Renal evaluation in progress due to acute renal failure. Continue ICU care. Wean vent as tolerated. We will continue to monitor the patient during his hospitalization.
--- NOTE | 2018-07-17 13:25 | P.PNID ---
Subjective Remarks: Patient is a 63-year-old male, presented to the hospital complaining of pain and swelling on his left elbow. He stated that he fell about a week ago but did not seek any treatment for his left elbow. He presented to the ED, and he was found to have a fracture of the olecranon on the left side. Patient also since admission has complained of some abdominal pain. He has known history of significant alcohol abuse. Imaging studies of the abdomen showed hepatic steatosis, pericholecystic fluid with no ductal dilatation. Ultrasound showed pericholecystic fluid with negative Lundy sign. He had a HIDA scan which showed no activity which could most likely be due to his liver disease. Patient also had a CTA as part of evaluation for his abdominal pain. That is okay. There were 2 blood cultures done in the ED, and they are now reported as growing MRSA. Patient has had some low-grade temps. Overnight he had persistent hypotension, and he was transferred to the ICU. Patient currently is on pressors. He is afebrile. He is still complaining of abdominal pain. He states he has chronic back pain which has not changed. He denies any shortness of breath. On this admission he was also found to have 80% right carotid artery stenosis, and vascular is following the patient. Echocardiograms not showing any obvious vegetation. His WBC is mildly elevated. He has an elevated lactic acid. His platelet count is low, fibrinogen is normal. Infectious disease consultation has been requested to assist with evaluation and treatment of his bacteremia. Notes reviewed Sedated on the vent Temps ok Creatinine improving, good UO Has CT R - fluid serous NO new (+) BC WBC normal Sputum ok Antibiotics: Zosyn Cubicin Lines: Line sites with no e.o infection Past Medical History: Tobacco and ETOH abuse Drug screen (+) cocaine (denies IVDU), admits to smoking Allergies/Adverse Reactions: Allergies No Known Allergies Allergy (Verified 07/08/18 12:30) Objective Vital Signs 07/16/18 14:00 07/16/18 15:00 07/16/18 16:00 Temperature 97.9 F Pulse Rate 74 74 73 Respiratory Rate 15 26 H 27 H Blood Pressure 138/67 138/70 134/62 Pulse Oximetry 98 97 97 07/16/18 16:56 07/16/18 17:00 07/16/18 18:00 Temperature Pulse Rate 74 75 Respiratory Rate 21 30 H Blood Pressure 133/64 149/71 H Pulse Oximetry 97 97 97 07/16/18 19:00 07/16/18 20:00 07/16/18 21:00 Temperature 98.0 F Pulse Rate 78 75 75 Respiratory Rate 31 H 31 H 31 H Blood Pressure 155/73 H 152/70 H 153/70 H Pulse Oximetry 98 97 97 07/16/18 21:34 07/16/18 22:00 07/16/18 23:00 Temperature Pulse Rate 75 77 Respiratory Rate 21 25 H 20 Blood Pressure 141/65 H 156/72 H Pulse Oximetry 98 97 97 07/17/18 00:00 07/17/18 01:00 07/17/18 02:00 Temperature 98.2 F Pulse Rate 75 74 74 Respiratory Rate 18 16 19 Blood Pressure 155/72 H 157/71 H 157/72 H Pulse Oximetry 97 97 97 07/17/18 03:00 07/17/18 04:00 07/17/18 04:37 Temperature 98.1 F Pulse Rate 68 67 Respiratory Rate 15 16 16 Blood Pressure 154/71 H 155/72 H Pulse Oximetry 98 99 98 07/17/18 05:00 07/17/18 06:00 07/17/18 08:00 Temperature Pulse Rate 64 76 69 Respiratory Rate 15 32 H Blood Pressure 154/71 H 149/68 H Pulse Oximetry 99 98 07/17/18 09:42 07/17/18 11:32 Temperature Pulse Rate Respiratory Rate 24 22 Blood Pressure Pulse Oximetry 97 97 Intake & Output 07/16/18 07/17/18 07/17/18 18:59 06:59 18:59 Intake Total 150 / 150 2800 / 2800 200 / 200 Output Total 2275 / 2275 2670 / 2670 Balance -2125 / -2125 130 / 130 200 / 200 Weight 73.4 kg Intake: IV 150 / 150 2800 / 2800 200 / 200 Bumex Inj 25 mg In 100 ml @ 1 100 / 100 100 / 100 MG/HR 4 mls/hr IV.CONT .Q24H [facility] Rx#:[id number] Diprivan 1000 mg/100 ml Inj 1, 100 / 100 100 / 100 000 mg In 100 ml @ 5 MCG/KG/MIN 2.376 mls/hr IV.CONT TITRATE PRN Rx#:[id number] NS Inj 1,000 ML @ 30 mls/hr IV. 1000 / 1000 CONT .Q24H [facility] Rx#:[id number] Alburx 5% Inj 500 ML @ 250 mls/ 1000 / 1000 hr IV.SIG Q12H [facility] Rx#:[id number] Zyvox 600 mg Premix 300 ML @ 600 / 600 300 mls/hr IV.SIG Q12H [facility] Rx#: [id number] Zosyn 2.25 GM Premix 50 ML @ 50 / 50 100 / 100 100 mls/hr IV.SIG Q8H [facility] Rx#: [id number] Oral 0 / 0 Output: Urine Amount (Catheter) 2224 2650 / 2650 Indwelling Urethral Catheter 2224 2650 / 2650 Chest Tube Drainage 50 / 50 20 / 20 Right 50 / 50 20 / 20 Other: Date of Last Bowel Movement 07/10/18 07/10/18 07/10/18 # Bowel Movements 0 0 07/15/18 11:45 Fluid - Pleural fluid Gram Stain - Final 07/15/18 11:45 Fluid - Pleural fluid Body Fluid Culture - Preliminary No growth in 48 hours 07/13/18 08:55 Fluid - Pleural fluid Gram Stain - Final 07/13/18 08:55 Fluid - Pleural fluid Body Fluid Culture - Final No growth in 72 hours (aerobically and anaerobically ) 07/10/18 11:15 Blood - Peripheral Aerobic Blood Culture - Final No growth in 5 days 07/10/18 11:15 Blood - Peripheral Anaerobic Blood Culture - Final No growth in 5 days 07/10/18 11:20 Blood - Peripheral Aerobic Blood Culture - Final No growth in 5 days 07/10/18 11:20 Blood - Peripheral Anaerobic Blood Culture - Final No growth in 5 days 07/13/18 07:35 Sputum - Endotracheal Gram Stain - Final 07/13/18 07:35 Sputum - Endotracheal Sputum Culture - Final Rare growth normal respiratory marie 07/13/18 08:55 Fluid - Pleural fluid Acid Fast Bacilli Smear - Final No acid fast bacilli seen 07/13/18 08:55 Fluid - Pleural fluid Mycobacterial Culture - Pending 07/08/18 19:35 Blood - Peripheral Aerobic Blood Culture - Final S. aureus MRSA 07/08/18 19:35 Blood - Peripheral Anaerobic Blood Culture - Final Staphylococcus coag negative 07/13/18 08:55 Fluid - Pleural fluid Fungal Smear - Final No fungal elements seen 07/13/18 08:55 Fluid - Pleural fluid Fungal Culture - Pending Lab - Chemistry Results 07/16/18 07/16/18 07/17/18 10:27 10:45 05:41 Sodium 145 146 H Potassium 3.1 L 2.8 L* Chloride 105 104 Carbon Dioxide 28.2 30.3 Anion Gap 12 12 BUN 76 H 78 H Creatinine 3.70 H 3.28 H Estimated GFR 17 L 19 L POC Glucose 105 Random Glucose 101 123 H Calcium 8.3 L 8.6 Phosphorus 5.7 H 4.8 Albumin 3.1 L 3.5 07/17/18 11:50 Sodium Potassium Chloride Carbon Dioxide Anion Gap BUN Creatinine Estimated GFR POC Glucose 118 H Random Glucose Calcium Phosphorus Albumin Imaging: ITS Impressions Elbow X-Ray 07/08/18 18:01 CONCLUSION: 1. Small, mildly displaced olecranon avulsion fracture fragments of the triceps insertion with associated soft tissue swelling. 2. Joint effusion. No perceptible intra-articular fracture. No subluxation. Abdomen/Pelvis CT 07/08/18 18:02 CONCLUSION: 1. Severe fatty infiltration of the liver. 2. Apparent pericholecystic fluid. Also fairly robust enhancement of the gallbladder mucosa. Please correlate clinically for any evidence of cholecystitis. No stones or ductal dilatation demonstrated. Gallbladder Ultrasound 07/08/18 18:53 CONCLUSION: 1. Small, nonspecific pericholecystic fluid without stones, wall thickening or sonographic Lundy's sign. The fluid may be on the basis of hepatocellular disease. The ultrasound does not support acute cholecystitis. 2. Fatty infiltrated and mildly enlarged liver. Carotid Doppler Study 07/09/18 00:00 CONCLUSION: 1. Right Internal Carotid Artery: Findings indicate >70% stenosis, but less than near occlusion. 2. Left Internal Carotid Artery: Findings indicate <50% stenosis. Hepatobiliary Scan Nuclear Medicine 07/09/18 14:22 CONCLUSION: 1. No activity in intrahepatic ducts, common duct or small bowel. Considerations include include acute obstruction of the common duct and diffuse hepatocellular disease. 2. CT scan shows no dilatation of the common duct or intrahepatic ducts. Diffuse hepatocellular disease is suspected. Neck CTA 07/10/18 00:00 CONCLUSION: 1. 80% stenosis of the proximal right ICA. Left carotid and bilateral vertebral arteries are patent. 2. Emphysematous changes. Abdomen/Pelvis CTA 07/10/18 00:08 CONCLUSION: 1. 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 The SMA and MIC are patent. 2. Hepatic steatosis. 3. Emphysematous changes. Abdomen/Bladder Ultrasound 07/11/18 00:00 CONCLUSION: 1. Normal ultrasound appearance of the kidneys. 2. Other findings include hepatic steatosis and left pleural effusion. Elbow CT 07/11/18 00:00 CONCLUSION: 1. Small fracture fragment off the olecranon. 2. There is subcutaneous edema identified posterior to the elbow with soft tissue swelling. Head CT 07/13/18 00:00 CONCLUSION: 1. No acute intracranial abnormality. 2. Atrophy. . Chest X-Ray 07/15/18 08:57 CONCLUSION: 1. No significant change. Hazy opacity remains in the left lung 2. Mild patchy opacity remains at the right lung base. Physical Exam: GENERAL: Sedated on the vent, NAD SKIN: Cool and dry. No generalized rash, no ecchymoses. HEAD: Atraumatic. Normocephalic. No temporal wasting, or tenderness. EYES: [place] conjunctiva. No petechia or hemorrhage. Pupils equal, round and reactive to light. Has mild injection ENT: Intubated CARDIOVASCULAR: Regular rate and rhythm. RESPIRATORY: Decreased BS at bases ABDOMEN: Soft, no response to palpation EXTREMITIES: No clubbing, cyanosis. Mild pedal edema. Has posterior splint in his whole LUE NEUROLOGICAL: Pupils unequal left > right. PSYCHIATRIC: Unable to assess LINE: No evidence of infection Assessment and Plan - Plan Impression MRSA sepsis ? olecranon trauma as entry point for MRSA MRSA bacteremia, ? endocarditis Shock, resolved Known ETOH abuse and tobacco abuse Denies IVDU, admits to smoking cocaine ETOH liver disease Elevated LFT Thrombocytopenia Acute renal failure: sepsis, contrast, meds. Respiratory failure Pleural effusion, has CT - fluid transudative Recommendation continue Cubicin for now for MRSA bacteremia Continue Zosyn ?aspiration prior to intubation. Stop Zyvox Follow C/S Follow temps Monitor progress Weaning per CCM
[2018-07-17] MEDS: DAPTOmycin Inj 400 MG in Sodium Chlor 0.9% Inj 100 ML IV.SIG SCH (14:16)
--- NOTE | 2018-07-17 14:38 | P.PNCC ---
Subjective Subjective Remarks/Hospital Course: 63-year-old male. Admission 07/09/2018. Date of consultation 2017. Past medical history includes ongoing alcoholism. Urine tox screen on admission positive for cocaine and opiates. Patient originally fell from a single bed about 1 week ago. He did not seek treatment for his swollen left elbow. He is initially diagnosed here with a left olecranon fracture/ nondisplaced. Seen by Dr. Blanco recommended splint/immobilization. Follow-up outpatient with x-rays in 2 weeks. He was treated with alcoholism for on the [facility] protocol receiving multivitamin, folate and thiamine. During admission, patient had multiple complaints including right upper quadrant pain. Patient has CT his abdomen/pelvis revealed hepatic steatosis, pericholecystic fluid with no ductal dilatation. Ultrasound showed pericholecystic 6 with negative Lundy sign. Nuclear medicine scan revealed no activity in the intrahepatic ducts compatible ducts or small bowel. Likely slightly disease. Patient was evaluated by gastroenterology for this issue. BOBBY, AMA, ASMA, SSA a and B, [place]qu[place], scleroderma and double-stranded DNA all pending. Negative hepatitis panel. Noted patient had angiogram of the abdomen which revealed no focal stenosis of the SMA, MCI or celiac. Patient elevated troponin. Was seen by Dr. chaudhry. Echocardiogram revealed EF 55-6%. PA P 43 mmHg. Trace to mild TR. Possibly demand ischemia due to sepsis. Was on aspirin. Did receive/placed on heparin drip. This is currently on hold due to coagulopathic state. Patient has gram-positive cocci in blood. Infectious disease has been counseled. Currently on vancomycin for comfort.) I repeated blood cultures, sputum and urine culture today. Patient is 80% right carotid artery stenosis. Followed by Dr. Bassett. Patient was transferred to ICU with persistent hypotension increasing lactic acidosis in the setting of acute liver injury. Worsening renal function. Patient has received 2.5 L normal saline the present time his blood pressure appears stable. Patient is currently denying abdominal pain. SUBJECTIVE: 07/11: Currently resting in bed and asking when he can go home. Creatinine is elevated 2.3. Will bolus with additional fluid. Echocardiogram results noted. 07/12: Negligible urine output overnight. Culver placed. Short of breath this morning. Not requiring pressors 07/13: Patient in respiratory distress tachypneic breathing 40 breaths/min. Intermittently desaturating to low 80s on nasal cannula. Very lethargic hardly protecting airway. Emergently intubated and placed on mechanical ventilation. Currently on Bumex infusion urine output improving. However BUN/creatinine was 49/4.53. Chest x-ray today shows extensive right-sided infiltrate. Chest x- ray on 07/12 shows extensive right-sided lower lobe infiltrate but was clear on 07/10/2018. Indicates probable aspiration pneumonia 07/14: Intubated and placed on mechanical ventilation yesterday for severe hypoxemic respiratory failure. After intubation right pigtail chest tube placed for large effusion. Last 24 hours 1.4 L drained. Currently on broad- spectrum antibiotics. Remains septic renal function stable creatinine 4.57. Remains on Bumex drip urine output 2.4 L in 24 hours 07/15: Intubated off sedation waking up moving extremities. Chest x-ray and bedside ultrasound shows moderate to large left pleural effusion. Remains on Bumex drip 2.8 L urine output in 24 hours. Plan for left thoracentesis today. Bilirubin noted to be finding 7.5 today probably cholestasis. Previous HIDA scan showed questionable common bile duct obstruction versus hepatobiliary disease. Reconsult GI for further evaluation may need MRCP 07/16: Remains on mechanical ventilation. Acute kidney injury persists. 07/17: Respiratory effort during spontaneous breathing trials has improved modestly from yesterday. He continues to respond to loop diuretic infusion. Opens eyes and tracks today. Objective Vital Signs / I&O: Vital Signs 07/16/18 15:00 07/16/18 16:00 07/16/18 16:56 Temperature 97.9 F Pulse Rate 74 73 Respiratory Rate 26 H 27 H Blood Pressure 138/70 134/62 Pulse Oximetry 97 97 97 07/16/18 17:00 07/16/18 18:00 07/16/18 19:00 Temperature Pulse Rate 74 75 78 Respiratory Rate 21 30 H 31 H Blood Pressure 133/64 149/71 H 155/73 H Pulse Oximetry 97 97 98 07/16/18 20:00 07/16/18 21:00 07/16/18 21:34 Temperature 98.0 F Pulse Rate 75 75 Respiratory Rate 31 H 31 H 21 Blood Pressure 152/70 H 153/70 H Pulse Oximetry 97 97 98 07/16/18 22:00 07/16/18 23:00 07/17/18 00:00 Temperature 98.2 F Pulse Rate 75 77 75 Respiratory Rate 25 H 20 18 Blood Pressure 141/65 H 156/72 H 155/72 H Pulse Oximetry 97 97 97 07/17/18 01:00 07/17/18 02:00 07/17/18 03:00 Temperature Pulse Rate 74 74 68 Respiratory Rate 16 19 15 Blood Pressure 157/71 H 157/72 H 154/71 H Pulse Oximetry 97 97 98 07/17/18 04:00 07/17/18 04:37 07/17/18 05:00 Temperature 98.1 F Pulse Rate 67 64 Respiratory Rate 16 16 15 Blood Pressure 155/72 H 154/71 H Pulse Oximetry 99 98 99 07/17/18 06:00 07/17/18 08:00 07/17/18 09:42 Temperature Pulse Rate 76 69 Respiratory Rate 32 H 24 Blood Pressure 149/68 H Pulse Oximetry 98 97 07/17/18 11:32 Temperature Pulse Rate Respiratory Rate 22 Blood Pressure Pulse Oximetry 97 Intake & Output 07/16/18 07/17/18 07/17/18 18:59 06:59 18:59 Intake Total 150 / 150 2800 / 2800 300 / 300 Output Total 2275 / 2275 2670 / 2670 Balance -2125 / -2125 130 / 130 300 / 300 Weight 73.4 kg Intake: IV 150 / 150 2800 / 2800 300 / 300 Bumex Inj 25 mg In 100 ml @ 1 100 / 100 100 / 100 MG/HR 4 mls/hr IV.CONT .Q24H [facility] Rx#:[id number] Diprivan 1000 mg/100 ml Inj 1, 100 / 100 100 / 100 000 mg In 100 ml @ 5 MCG/KG/MIN 2.376 mls/hr IV.CONT TITRATE PRN Rx#:[id number] NS Inj 1,000 ML @ 30 mls/hr IV. 1000 / 1000 CONT .Q24H [facility] Rx#:[id number] Alburx 5% Inj 500 ML @ 250 mls/ 1000 / 1000 hr IV.SIG Q12H [facility] Rx#:[id number] Zyvox 600 mg Premix 300 ML @ 600 / 600 300 mls/hr IV.SIG Q12H [facility] Rx#: [id number] Zosyn 2.25 GM Premix 50 ML @ 50 / 50 100 / 100 100 mls/hr IV.SIG Q8H [facility] Rx#: [id number] KCl 20 mEq Premix Inj 20 meq In 100 / 100 100 ml @ 50 mls/hr IV.SIG Q2H [facility] Rx#:[id number] Oral 0 / 0 Output: Urine Amount (Catheter) 2224 2650 / 2650 Indwelling Urethral Catheter 2224 2650 / 2650 Chest Tube Drainage 50 / 50 20 / 20 Right 50 / 50 20 / 20 Other: Date of Last Bowel Movement 07/10/18 07/10/18 07/10/18 # Bowel Movements 0 0 Result Diagrams: 07/15/18 09:04 07/17/18 05:41 Objective Remarks: GENERAL: Chronically ill appearing 63-year-old male. SKIN: Warm and dry. HEAD: Atraumatic. Normocephalic. EYES: Pupils are unequal right 2 mm reactive left is 5 mm nonreactive ENT: Orotracheally intubated NECK: Trachea midline. CARDIOVASCULAR: Regular rate and rhythm. S1, S2 no S4. RESPIRATORY: Air entry equal bilaterally minimal crackles at the bases. Right chest tube in place. GASTROINTESTINAL: Abdomen soft, non-tender, nondistended. No guarding, bowel sounds active. MUSCULOSKELETAL: Extremities well perfused. Left upper extremity currently in splint wrapped in Armen bandage NEUROLOGICAL: Patient is intubated and lightly sedated, with lightening patient does follow commands on bilateral upper extremities and withdraws bilateral lower extremity. Pupils are unequal right 2 mm reactive left is 5 mm nonreactive Assessment and Plan - Assessment and Plan Plan: Neuro/Psych: Acute metabolic encephalopathy Anisocoria EtOH abuse Recent cocaine/opiate abuse -inhaled. Denies intravenous Propofol for sedation and vent synchrony after intubation Hold CIWA protocol initiated with Lorazepam/haloperidol as needed MVI/ folate. Patient states he inhaled cocaine 4-5 days ago. Denies IV drug use. Discontinued acetaminophen and related products with elevated transaminases Stat CT of the head for unequal pupil, negative for acute findings CV: Severe sepsis Lactic acidosis Elevated troponin likely demand ischemia Right carotid artery stenosis Elevated CPK On Bumex infusion Lactates decreased to 2.[address] chaudhry. No intervention planned 2D echocardiogram revealed Normal left ventricular size. Wall thickness is normal. The left ventricular systolic function is normal with an estimated ejection fraction in the range of 55-60%. Not on aspirin or heparin at this time due to thrombocytopenia Troponin trending downward. Followed by vascular surgery for right carotid artery stenosis 80%. Will need intervention when clinically stable. Resp: Acute hypoxemic respiratory failure Right lower lobe pneumonia with effusion Emphysematous type changes on CT neck Hyperammonemia Hypoalbuminemia Tobacco abuse Emergently intubated and placed on mechanical ventilation. PRVC/AC 07/13/2018 Bedside ultrasound shows large right pleural effusion, status post pigtail right chest tube with 1.4 L drained since placement on 07/13/2018 Plan for left thoracentesis today 07/15/2018 Vent bundle. Albuterol/ipratropium aerosols every 4 hours with albuterol aerosols every 2 hours as needed dyspnea Follow-up on chest x-ray and ABG Tobacco cessation will be encouraged Sputum cultures negative for growth so far Continue daily spontaneous breathing trials Start decreasing pressure support today 07/17 GI: Elevated transaminases Elevated total bilirubin Poss acalc jody Hypoalbuminemia Noted CT abdomen/pelvis revealed possible early cholecystitis. Pericholecystic fluid. Ultrasound revealed negative Lundy sign. Nuclear medicine scan revealed no activity in the intrahepatic ductal compound bile duct or small bowel. 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 Patent MIC, celiac. Evaluated by gastroenterology. Hepatitis panel negative. Pending ceruloplasmin, BOBBY, AMA, ASMA, SSA AMB, anti-Ronquillo, RP, scleroderma, double-stranded DNA, hemochromatosis Currently on lactulose 30 cc 3 times daily for elevated ammonia. Continue tube feeds with Nepro. Endo: Sliding scale insulin with Accu-Cheks to maintain euglycemia/every 6 hours low regimen TSH 1. Cortisol 25 Renal: Acute kidney failure Culver catheter if indicated for accurate I's and O's in a critical patient with severe renal failure and on Bumex drip Good urine output on Bumex drip, 2.8 L in 24 hours BUN/creatinine elevated nephrology following. Creatinine is 4.58 today however nonoliguric urine eosinophils negative, Monitor urine output Avoid nephrotoxic medication. Discontinued vancomycin 07/11 Heme: Macrocytic anemia Thrombocytopenia Coagulopathic state Follow-up on PT/INR/PTT and fibrinogen No indication for transfusion of blood products at this time ID: MRSA bacteremia Septic shock Right lower lobe pneumonia/aspiration 2D transthoracic echocardiogram revealed no signs of endocarditis. Infectious disease following Currently on daptomycin and Zosyn. Zyvox added for gram-positive coverage for presumed pneumonia Pleural fluid studies have no evidence of infection MSK: Left posterior olecranon fracture Followed by Dr. Blanco, splint immobilized. Follow-up in 2 weeks with x-rays CT left elbow today FEN: Replace electrolytes as clinically indicated Access -Utilize peripheral IV. Central line if indicated Prophylaxis -GI -pantoprazole -DVT-SCD/hold off chemical DVT prophylaxis due to severe thrombocytopenia Overall impression: Patient remains critically ill, recently intubated for worsening acute hypoxemic respiratory failure. Care complicated by severe acute renal failure and ongoing sepsis. Ongoing evaluation of liver function. We will try to push some spontaneous breathing trials at least. Critical care time 45 minutes aside from procedures
--- NOTE | 2018-07-17 15:44 | XR ---
EXAM DATE: 07/17/2018 3:39 PM EST AGE/SEX: 63 years / Male INDICATIONS: Shortness of breath. CLINICAL DATA: This is the patient's initial encounter. Patient reports that signs and symptoms have been present for 1 day and indicates a pain score of 0/10. MEDICAL/SURGICAL HISTORY: Non-responsive. Non-responsive. COMPARISON: C, CHEST 1V SINGLE AP, 07/15/2018. . FINDINGS: Endotracheal tube and right basilar chest tube are in stable position. Patchy airspace disease especially within the left base remains evident. There is no gross of pneumothorax. Heart and mediastinal structures are stable. CONCLUSION: Persistent patchy airspace disease No evidence of pneumothorax Endotracheal tube and right chest tube are in stable position. Electronically signed by: Louie Yarbrough MD Board Certified Radiologist 07/17/2018 3:43 PM EST
[2018-07-17 17:32] LABS: Specimen HFE WB Whole Blood
--- NOTE | 2018-07-17 17:49 | P.PNGI ---
Subjective Interval history: Pt is intubated Physical Exam Vital signs: Vital Signs 07/16/18 18:00 07/16/18 19:00 07/16/18 20:00 Temperature 98.0 F Pulse Rate 75 78 75 Respiratory Rate 30 H 31 H 31 H Blood Pressure 149/71 H 155/73 H 152/70 H Pulse Oximetry 97 98 97 07/16/18 21:00 07/16/18 21:34 07/16/18 22:00 Temperature Pulse Rate 75 75 Respiratory Rate 31 H 21 25 H Blood Pressure 153/70 H 141/65 H Pulse Oximetry 97 98 97 07/16/18 23:00 07/17/18 00:00 07/17/18 01:00 Temperature 98.2 F Pulse Rate 77 75 74 Respiratory Rate 20 18 16 Blood Pressure 156/72 H 155/72 H 157/71 H Pulse Oximetry 97 97 97 07/17/18 02:00 07/17/18 03:00 07/17/18 04:00 Temperature 98.1 F Pulse Rate 74 68 67 Respiratory Rate 19 15 16 Blood Pressure 157/72 H 154/71 H 155/72 H Pulse Oximetry 97 98 99 07/17/18 04:37 07/17/18 05:00 07/17/18 06:00 Temperature Pulse Rate 64 76 Respiratory Rate 16 15 32 H Blood Pressure 154/71 H 149/68 H Pulse Oximetry 98 99 98 07/17/18 07:00 07/17/18 08:00 07/17/18 09:00 Temperature 97.4 F L Pulse Rate 69 70 68 Respiratory Rate 21 19 31 H Blood Pressure 151/68 H 154/74 H 149/68 H Pulse Oximetry 98 98 97 07/17/18 09:42 07/17/18 10:00 07/17/18 11:00 Temperature Pulse Rate 69 70 Respiratory Rate 24 23 23 Blood Pressure 159/72 H 157/73 H Pulse Oximetry 97 97 97 07/17/18 11:32 07/17/18 12:00 07/17/18 13:00 Temperature 98.4 F Pulse Rate 72 73 Respiratory Rate 22 19 20 Blood Pressure 147/65 H 159/71 H Pulse Oximetry 97 96 97 07/17/18 14:00 07/17/18 15:00 07/17/18 16:00 Temperature 98.2 F Pulse Rate 71 72 69 Respiratory Rate 19 19 13 Blood Pressure 153/70 H 151/66 H 150/67 H Pulse Oximetry 97 96 96 07/17/18 17:38 Temperature Pulse Rate Respiratory Rate 19 Blood Pressure Pulse Oximetry 97 Intake & Output 07/16/18 07/17/18 07/17/18 18:59 06:59 18:59 Intake Total 150 / 150 2800 / 2800 300 / 300 Output Total 2275 / 2275 2670 / 2670 Balance -2125 / -2125 130 / 130 300 / 300 Weight 73.4 kg Intake: IV 150 / 150 2800 / 2800 300 / 300 Bumex Inj 25 mg In 100 ml @ 1 100 / 100 100 / 100 MG/HR 4 mls/hr IV.CONT .Q24H [facility] Rx#:[id number] Diprivan 1000 mg/100 ml Inj 1, 100 / 100 100 / 100 000 mg In 100 ml @ 5 MCG/KG/MIN 2.376 mls/hr IV.CONT TITRATE PRN Rx#:[id number] NS Inj 1,000 ML @ 30 mls/hr IV. 1000 / 1000 CONT .Q24H [facility] Rx#:[id number] Alburx 5% Inj 500 ML @ 250 mls/ 1000 / 1000 hr IV.SIG Q12H [facility] Rx#:[id number] Zyvox 600 mg Premix 300 ML @ 600 / 600 300 mls/hr IV.SIG Q12H [facility] Rx#: [id number] Zosyn 2.25 GM Premix 50 ML @ 50 / 50 100 / 100 100 mls/hr IV.SIG Q8H [facility] Rx#: [id number] KCl 20 mEq Premix Inj 20 meq In 100 / 100 100 ml @ 50 mls/hr IV.SIG Q2H [facility] Rx#:[id number] Oral 0 / 0 Output: Urine Amount (Catheter) 2224 / 2224 2650 / 2650 Indwelling Urethral Catheter 2224 / 222 2650 / 2650 Chest Tube Drainage 50 / 50 20 / 20 Right 50 / 50 20 / 20 Other: Date of Last Bowel Movement 07/10/18 07/10/18 07/10/18 # Bowel Movements 0 0 Narrative: GENERAL: Sedated and intubated. SKIN: Warm and dry. NECK: Supple, trachea midline. No JVD. CARDIOVASCULAR: Regular rate and rhythm without murmurs, gallops, or rubs. RESPIRATORY: Breath sounds equal right-sided chest tube. Orally intubated. GASTROINTESTINAL: Abdomen soft, non-tender, nondistended. GENITOURINARY: Indwelling Culver catheter, light yellow urine. MUSCULOSKELETAL: No cyanosis, no edema. . . - Urinary Catheter Management Indwelling Urethral Catheter Cath placed during this visit: yes Reason for continuing: Hourly intake/output Insertion date: 07/12/18 Insertion time: 07:45 Results - Labs CBC & Chem 7: 07/15/18 09:04 07/17/18 05:41 Laboratory Results - last 24 hr 07/09/18 07/10/18 07/17/18 20:17 19:40 05:41 Sodium 146 H Potassium 2.8 L* Chloride 104 Carbon Dioxide 30.3 Anion Gap 12 BUN 78 H Creatinine 3.28 H Estimated GFR 19 L POC Glucose Random Glucose 123 H Calcium 8.6 Phosphorus 4.8 Albumin 3.5 Mitochondria M2 IgG Ab Less than 20.0 Hemochromatosis Source Not Reportable Hemochromat Specimen Wb whole blood Hemochromatosis Method . Heredit Hemochromatosis See below Hemochromatosis Results . Hemochromatosis Interp . Hemochromatosis Review See below 07/17/18 11:50 Sodium Potassium Chloride Carbon Dioxide Anion Gap BUN Creatinine Estimated GFR POC Glucose 118 H Random Glucose Calcium Phosphorus Albumin Mitochondria M2 IgG Ab Hemochromatosis Source Hemochromat Specimen Hemochromatosis Method Heredit Hemochromatosis Hemochromatosis Results Hemochromatosis Interp Hemochromatosis Review Microbiology 07/15/18 11:45 Fluid - Pleural fluid Gram Stain - Final 07/15/18 11:45 Fluid - Pleural fluid Body Fluid Culture - Preliminary No growth in 48 hours - Imaging Impressions Chest X-Ray 07/17/18 00:00 CONCLUSION: Persistent patchy airspace disease No evidence of pneumothorax Endotracheal tube and right chest tube are in stable position. Assessment and Plan (1) Liver failure Status: Acute Code(s): K72.90 - Hepatic failure, unspecified without coma (2) Hyperbilirubinemia Status: Acute Code(s): E80.6 - Other disorders of bilirubin metabolism - Plan Assessment: - Elevated LFTs with findings indicative of cirrhosis He denies IV drug use, tattoos or any high risk sexual behaviors. Denies personal or family history of liver issues. Does admit to smoking cocaine. Patient states he smokes 1 pack/day and drinks a sixpack of beer daily. LFTs trending up since admission. Pt was transferred to [facility] overnight after becoming hypotensive, now on a Talon gtt. Liver work up: BOBBY, ASMA, AMA pending. Ceruloplasmin pending. AAT pending. AFP-3.7. Iron-123 TIBC-217 %sat-56.7 Ferritin-9759 Hepatitis panel negative. 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 The SMA and MIC are patent. Hepatic steatosis. HIDA (07/09) No activity in intrahepatic ducts, common duct or small bowel. Considerations include include acute obstruction of the common duct and diffuse hepatocellular disease. CT scan shows no dilatation of the common duct or intrahepatic ducts. Diffuse hepatocellular disease is suspected. Given history of cirrhosis, exam is unreliable, do not suspect acute cholecystitis. US gallbladder (07/08) Small, nonspecific pericholecystic fluid without stones , wall thickening or sonographic Lundy's sign. The fluid may be on the basis of hepatocellular disease. The ultrasound does not support acute cholecystitis. Fatty infiltrated and mildly enlarged liver. - Anemia- He denies ever having had a EGD or colonoscopy in the past. No obvious bleeding - Coagulopathy, thrombocytopenia, hypoalbuminemia- in setting of cirrhosis - MRSA bacteremia- ID following, unclear etiology, possible need for LESLIE, repeat blood cultures pending - Carotid artery stenosis- vascular surgery following (07/11) Renal indices increased today, therefore cardiac cath has been cancelled. Pt states he has been unable to urinate at all since last night even though he feels like he needs to. Discussed with RN to let attending know may need bladder scan vs ultrasound. Pt continues to have diffuse abdominal pain. Denies nausea, vomiting. Has not had BM. H/H trending down, no obvious bleeding, occult stool pending. LFTs trending down some today, liver work up still pending. 07/12/2018 patient continues in the intensive care setting, more awake today and answering a few simple questions, tachycardic labs reviewed which showed current hemoglobin 10, AST 1047, ALT 1219, bilirubin 4.9, LFTs are trending down , hepatocellular disease could be related to alcohol versus obstruction versus medications, possible fatty liver versus shock liver. Need to continue to monitor for any gallbladder disease. Patient will need to stabilize further before any further GI procedures can be performed as well as any vascular clearance. GI will see and follow and monitor labs as needed, appreciate vascular surgery and ID input. Current INR 2.4 which is trending down. 07/15/2018 Patient critically ill in ICU. Intubated and mechanically ventilated. 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 The SMA and MIC are patent. Hepatic steatosis; Highly indicative of ischemic hepatitis-shock liver Cardiac stability and increasing cardiac output needed to aid liver function 07/16/2018 Patient intubated and mechanically ventilated No new labs for today. Overall status unchanged. Liver function panel in conjunction with CTA abdomen and pelvis as noted above highly indicative of ischemic hepatitis/shock liver 07/17/18 Shocked liver- LFTs trending down liver work up negative so far except high iron saturation and Fe Hfe pending Plan -N.p.o. -Recommend consulting IR for placement of G-tube for parental feedings due intestinal varices however, pt with coagulopathy and thrombocytopenia -Monitor labs hemoglobin hematocrit and INR -PPI -Hemochromatosis workup pending -Supportive care -Plan of care as per critical care medicine This patient has been seen by myself and Dr. Medrano and this note is written on his behalf
[2018-07-18] MEDS: Oral Hygiene Kit OROPHARYNG SCH ×4 (00:32→17:58)
[2018-07-18] MEDS: Piperacil/Tazo 2.25 GM Premix 50 ML IV.SIG SCH ×3 (02:55→18:01)
[2018-07-18] MEDS: Propofol 1000 mg/100 ml Inj 1,000 MG/100 ML BOTTLE IV.CONT PRN (04:35)
[2018-07-18 07:24] LABS: Albumin 3.1 g/dL (3.4-5.0); Calcium 8.8 mg/dL (8.5-10.1); Carbon Dioxide 32.4 meq/L (21.0-32.0); Phosphorus 2.5 mg/dL (2.5-4.9)
[2018-07-18 07:28] LABS: Potassium 2.4 meq/L (3.5-5.1)
[2018-07-18] MEDS: Sod Chloride 0.9% Inj 1,000 ML IV.CONT SCH (08:50)
[2018-07-18] MEDS: Chlorhexidine 0.12% Oral Kit 15 ML UDC OROPHARYNG SCH ×2 (08:50→20:53)
[2018-07-18] MEDS: Potassium Chlor 20 mEq Premix 20 MEQ/100 ML PIGGYBACK IV.SIG SCH ×4 (08:50→13:30)
[2018-07-18] MEDS: Mupirocin 2% Nasal Oint Topical Syringe EACH NARE SCH ×2 (08:50→20:54)
[2018-07-18] MEDS: Pantoprazole Inj 40 MG Vial IV.PUSH SCH (08:50)
--- NOTE | 2018-07-18 12:56 | P.PNGI ---
Subjective Interval history: Intubated and mechanically ventilated Physical Exam Vital signs: Vital Signs 07/17/18 13:00 07/17/18 14:00 07/17/18 15:00 Temperature Pulse Rate 73 71 72 Respiratory Rate 20 19 19 Blood Pressure 159/71 H 153/70 H 151/66 H Pulse Oximetry 97 97 96 07/17/18 16:00 07/17/18 17:00 07/17/18 17:38 Temperature 98.2 F Pulse Rate 69 72 Respiratory Rate 13 19 19 Blood Pressure 150/67 H 156/72 H Pulse Oximetry 96 97 97 07/17/18 18:00 07/17/18 19:00 07/17/18 20:00 Temperature 98.6 F 99.0 F Pulse Rate 71 73 75 Respiratory Rate 19 22 19 Blood Pressure 157/70 H 145/69 H 158/74 H Pulse Oximetry 97 96 96 07/17/18 20:28 07/17/18 21:00 07/17/18 22:00 Temperature Pulse Rate 78 79 Respiratory Rate 24 27 H 22 Blood Pressure 158/74 H 151/74 H Pulse Oximetry 96 96 96 07/17/18 23:00 07/18/18 00:00 07/18/18 00:25 Temperature 98.5 F Pulse Rate 78 79 Respiratory Rate 30 H 24 16 Blood Pressure 163/76 H 161/74 H Pulse Oximetry 96 96 96 07/18/18 01:00 07/18/18 02:00 07/18/18 03:00 Temperature Pulse Rate 76 76 72 Respiratory Rate 20 20 19 Blood Pressure 163/74 H 158/74 H 151/73 H Pulse Oximetry 94 L 93 L 92 L 07/18/18 03:44 07/18/18 04:00 07/18/18 05:00 Temperature 98.6 F Pulse Rate 72 72 Respiratory Rate 17 19 Blood Pressure 159/72 H 178/85 H Pulse Oximetry 93 L 94 L 96 07/18/18 06:00 07/18/18 07:00 07/18/18 08:00 Temperature 98.1 F Pulse Rate 65 66 66 Respiratory Rate 16 23 17 Blood Pressure 151/76 H 146/72 H 139/68 Pulse Oximetry 94 L 94 L 93 L 07/18/18 08:23 07/18/18 09:00 07/18/18 09:03 Temperature Pulse Rate 69 73 Respiratory Rate 17 23 24 Blood Pressure 155/67 H Pulse Oximetry 99 96 96 07/18/18 09:24 07/18/18 10:00 07/18/18 11:00 Temperature Pulse Rate 82 76 Respiratory Rate 18 23 22 Blood Pressure 144/65 H 166/79 H Pulse Oximetry 100 90 L 94 L 07/18/18 12:00 07/18/18 12:11 Temperature 98.4 F Pulse Rate 70 Respiratory Rate 17 21 Blood Pressure 130/63 Pulse Oximetry 95 96 Intake & Output 07/17/18 07/18/18 07/18/18 18:59 06:59 18:59 Intake Total 500 / 500 250 / 250 900 / 900 Output Total 3870 / 3870 3460 / 3460 Balance -3370 / -3370 -3210 / -3210 900 / 900 Weight 66.3 kg Intake: IV 500 / 500 250 / 250 900 / 900 Bumex Inj 25 mg In 100 ml @ 1 100 / 100 MG/HR 4 mls/hr IV.CONT .Q24H [facility] Rx#:[id number] Diprivan 1000 mg/100 ml Inj 1, 200 / 200 200 / 200 000 mg In 100 ml @ 5 MCG/KG/MIN 2.376 mls/hr IV.CONT TITRATE PRN Rx#:[id number] NS Inj 1,000 ML @ 30 mls/hr IV. 600 / 600 CONT .Q24H [facility] Rx#:[id number] Zosyn 2.25 GM Premix 50 ML @ 100 / 100 50 / 50 100 mls/hr IV.SIG Q8H [facility] Rx#: [id number] KCl 20 mEq Premix Inj 20 meq In 100 / 100 100 / 100 100 ml @ 50 mls/hr IV.SIG Q2H [facility] Rx#:[id number] Oral 0 / 0 0 / 0 Output: Urine Amount (Catheter) 3800 / 3800 3400 / 3400 Indwelling Urethral Catheter 3800 / 3800 3400 / 3400 Chest Tube Drainage 70 / 70 60 / 60 Right 70 / 70 60 / 60 Other: Date of Last Bowel Movement 07/10/18 07/18/18 07/18/18 # Bowel Movements 0 1 - Constitutional chronically ill appearing - Routine HEENT Exam Head: Present: normocephalic - Routine Neck Exam Present: supple, trachea midline. Absent: JVD - Routine Respiratory Exam Present: patient mechanically ventilated, CTA bilaterally Comments: Right-sided chest tube to drainage Thora-Klex - Routine Cardiovascular Exam Present: RRR, S1, S2 - Routine Abdominal Exam Present: soft, normoactive bowel sounds. Absent: tenderness, distended, firm - Routine Extremities Exam Absent: edema - Routine Skin Exam Present: dry, warm - Urinary Catheter Management Indwelling Urethral Catheter Cath placed during this visit: yes Reason for continuing: Hourly intake/output Insertion date: 07/12/18 Insertion time: 07:45 Results - Labs CBC & Chem 7: 07/15/18 09:04 07/18/18 05:35 Laboratory Results - last 24 hr 07/10/18 07/18/18 19:40 05:35 Sodium 149 H Potassium 2.4 L* Chloride 106 Carbon Dioxide 32.4 H Anion Gap 11 BUN 72 H Creatinine 2.61 H Estimated GFR 25 L Random Glucose 106 Calcium 8.8 Phosphorus 2.5 D Albumin 3.1 L Hemochromatosis Source Not Reportable Hemochromat Specimen Wb whole blood Hemochromatosis Method . Heredit Hemochromatosis See below Hemochromatosis Results . Hemochromatosis Interp . Hemochromatosis Review See below Microbiology 07/15/18 11:45 Fluid - Pleural fluid Gram Stain - Final 07/15/18 11:45 Fluid - Pleural fluid Body Fluid Culture - Final No growth in 72 hours (aerobically and anaerobically ) - Imaging Impressions Chest X-Ray 07/17/18 00:00 CONCLUSION: Persistent patchy airspace disease No evidence of pneumothorax Endotracheal tube and right chest tube are in stable position. Assessment and Plan (1) Liver failure Status: Acute Code(s): K72.90 - Hepatic failure, unspecified without coma (2) Hyperbilirubinemia Status: Acute Code(s): E80.6 - Other disorders of bilirubin metabolism - Plan Assessment: - Elevated LFTs with findings indicative of cirrhosis He denies IV drug use, tattoos or any high risk sexual behaviors. Denies personal or family history of liver issues. Does admit to smoking cocaine. Patient states he smokes 1 pack/day and drinks a sixpack of beer daily. LFTs trending up since admission. Pt was transferred to [facility] overnight after becoming hypotensive, now on a Talon gtt. Liver work up: BBOBY, ASMA, AMA pending. Ceruloplasmin pending. AAT pending. AFP-3.7. Iron-123 TIBC-217 %sat-56.7 Ferritin-9759 Hepatitis panel negative. 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 The SMA and MIC are patent. Hepatic steatosis. HIDA (07/09) No activity in intrahepatic ducts, common duct or small bowel. Considerations include include acute obstruction of the common duct and diffuse hepatocellular disease. CT scan shows no dilatation of the common duct or intrahepatic ducts. Diffuse hepatocellular disease is suspected. Given history of cirrhosis, exam is unreliable, do not suspect acute cholecystitis. US gallbladder (07/08) Small, nonspecific pericholecystic fluid without stones , wall thickening or sonographic Lundy's sign. The fluid may be on the basis of hepatocellular disease. The ultrasound does not support acute cholecystitis. Fatty infiltrated and mildly enlarged liver. - Anemia- He denies ever having had a EGD or colonoscopy in the past. No obvious bleeding - Coagulopathy, thrombocytopenia, hypoalbuminemia- in setting of cirrhosis - MRSA bacteremia- ID following, unclear etiology, possible need for LESLIE, repeat blood cultures pending - Carotid artery stenosis- vascular surgery following (07/11) Renal indices increased today, therefore cardiac cath has been cancelled. Pt states he has been unable to urinate at all since last night even though he feels like he needs to. Discussed with RN to let attending know may need bladder scan vs ultrasound. Pt continues to have diffuse abdominal pain. Denies nausea, vomiting. Has not had BM. H/H trending down, no obvious bleeding, occult stool pending. LFTs trending down some today, liver work up still pending. 07/12/2018 patient continues in the intensive care setting, more awake today and answering a few simple questions, tachycardic labs reviewed which showed current hemoglobin 10, AST 1047, ALT 1219, bilirubin 4.9, LFTs are trending down , hepatocellular disease could be related to alcohol versus obstruction versus medications, possible fatty liver versus shock liver. Need to continue to monitor for any gallbladder disease. Patient will need to stabilize further before any further GI procedures can be performed as well as any vascular clearance. GI will see and follow and monitor labs as needed, appreciate vascular surgery and ID input. Current INR 2.4 which is trending down. 07/15/2018 Patient critically ill in ICU. Intubated and mechanically ventilated. 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 The SMA and MIC are patent. Hepatic steatosis; Highly indicative of ischemic hepatitis-shock liver Cardiac stability and increasing cardiac output needed to aid liver function 07/16/2018 Patient intubated and mechanically ventilated No new labs for today. Overall status unchanged. Liver function panel in conjunction with CTA abdomen and pelvis as noted above highly indicative of ischemic hepatitis/shock liver 07/17/18 Shocked liver- LFTs trending down liver work up negative so far except high iron saturation and Fe Hfe pending 07/18/2018 LFTs trending down as per 07/15/2018 HFE-C2 A2 Y not detected H 60 3D not detected exam lower risk for diagnosis or predisposition for hemochromatosis Plan -N.p.o. -Recommend consulting IR for placement of G-tube for parental feedings due intestinal varices however, pt with coagulopathy and thrombocytopenia -Monitor labs hemoglobin hematocrit and INR -PPI -Hemochromatosis workup pending -Supportive care -Plan of care as per critical care medicine -GI will sign off at this time needs reconsult for any further needs This patient has been seen by myself and Dr. Medrano and this note is written on his behalf - Attending Attestation Dr. Medrano
--- NOTE | 2018-07-18 13:03 | P.PNNP ---
Subjective Interval history: Patient remain on the vent, open eyes, not in distress. Physical Exam Vital signs: Vital Signs 07/17/18 14:00 07/17/18 15:00 07/17/18 16:00 Temperature 98.2 F Pulse Rate 71 72 69 Respiratory Rate 19 19 13 Blood Pressure 153/70 H 151/66 H 150/67 H Pulse Oximetry 97 96 96 07/17/18 17:00 07/17/18 17:38 07/17/18 18:00 Temperature 98.6 F Pulse Rate 72 71 Respiratory Rate 19 19 19 Blood Pressure 156/72 H 157/70 H Pulse Oximetry 97 97 97 07/17/18 19:00 07/17/18 20:00 07/17/18 20:28 Temperature 99.0 F Pulse Rate 73 75 Respiratory Rate 22 19 24 Blood Pressure 145/69 H 158/74 H Pulse Oximetry 96 96 96 07/17/18 21:00 07/17/18 22:00 07/17/18 23:00 Temperature Pulse Rate 78 79 78 Respiratory Rate 27 H 22 30 H Blood Pressure 158/74 H 151/74 H 163/76 H Pulse Oximetry 96 96 96 07/18/18 00:00 07/18/18 00:25 07/18/18 01:00 Temperature 98.5 F Pulse Rate 79 76 Respiratory Rate 24 16 20 Blood Pressure 161/74 H 163/74 H Pulse Oximetry 96 96 94 L 07/18/18 02:00 07/18/18 03:00 07/18/18 03:44 Temperature Pulse Rate 76 72 Respiratory Rate 20 19 17 Blood Pressure 158/74 H 151/73 H Pulse Oximetry 93 L 92 L 93 L 07/18/18 04:00 07/18/18 05:00 07/18/18 06:00 Temperature 98.6 F Pulse Rate 72 72 65 Respiratory Rate 19 16 Blood Pressure 159/72 H 178/85 H 151/76 H Pulse Oximetry 94 L 96 94 L 07/18/18 07:00 07/18/18 08:00 07/18/18 08:23 Temperature 98.1 F Pulse Rate 66 66 Respiratory Rate 23 17 17 Blood Pressure 146/72 H 139/68 Pulse Oximetry 94 L 93 L 99 07/18/18 09:00 07/18/18 09:03 07/18/18 09:24 Temperature Pulse Rate 69 73 Respiratory Rate 23 24 18 Blood Pressure 155/67 H Pulse Oximetry 96 96 100 07/18/18 10:00 07/18/18 11:00 07/18/18 12:00 Temperature 98.4 F Pulse Rate 82 76 70 Respiratory Rate 23 22 17 Blood Pressure 144/65 H 166/79 H 130/63 Pulse Oximetry 90 L 94 L 95 07/18/18 12:11 Temperature Pulse Rate Respiratory Rate 21 Blood Pressure Pulse Oximetry 96 Intake & Output 07/17/18 07/18/18 07/18/18 18:59 06:59 18:59 Intake Total 500 / 500 250 / 250 900 / 900 Output Total 3870 / 3870 3460 / 3460 Balance -3370 / -3370 -3210 / -3210 900 / 900 Weight 66.3 kg Intake: IV 500 / 500 250 / 250 900 / 900 Bumex Inj 25 mg In 100 ml @ 1 100 / 100 MG/HR 4 mls/hr IV.CONT .Q24H [facility] Rx#:[id number] Diprivan 1000 mg/100 ml Inj 1, 200 / 200 200 / 200 000 mg In 100 ml @ 5 MCG/KG/MIN 2.376 mls/hr IV.CONT TITRATE PRN Rx#:[id number] NS Inj 1,000 ML @ 30 mls/hr IV. 600 / 600 CONT .Q24H [facility] Rx#:[id number] Zosyn 2.25 GM Premix 50 ML @ 100 / 100 50 / 50 100 mls/hr IV.SIG Q8H [facility] Rx#: [id number] KCl 20 mEq Premix Inj 20 meq In 100 / 100 100 / 100 100 ml @ 50 mls/hr IV.SIG Q2H [facility] Rx#:[id number] Oral 0 / 0 0 / 0 Output: Urine Amount (Catheter) 3800 / 3800 3400 / 3400 Indwelling Urethral Catheter 3800 / 3800 3400 / 3400 Chest Tube Drainage 70 / 70 60 / 60 Right 70 / 70 60 / 60 Other: Date of Last Bowel Movement 07/10/18 07/18/18 07/18/18 # Bowel Movements 0 1 Narrative: GENERAL: Sedated and intubated. SKIN: Warm and dry. NECK: Supple, trachea midline. No JVD. CARDIOVASCULAR: Regular rate and rhythm without murmurs, gallops, or rubs. RESPIRATORY: Breath sounds equal right-sided chest tube. Orally intubated. GASTROINTESTINAL: Abdomen soft, non-tender, nondistended. GENITOURINARY: Indwelling Culver catheter, light yellow urine. MUSCULOSKELETAL: No cyanosis, no edema. . . - Urinary Catheter Management Indwelling Urethral Catheter Cath placed during this visit: yes Reason for continuing: Hourly intake/output Insertion date: 07/12/18 Insertion time: 07:45 Assessment and Plan - Assessment (1) Acute kidney injury Code(s): N17.9 - Acute kidney failure, unspecified Status: Acute Plan: Patient remain on the vent. Now on CPAP. Creatinine is improving, now 2.6, K is low and replaced. Has adequate urine out put, will D/C IV Bumex. Avoid Nephrotoxins. Follow the urine out put and BMP.
--- NOTE | 2018-07-18 13:31 | P.PNCA ---
Subjective Interval history: Patient remains intubated and sedated. Medications and Allergies Allergies Allergy/AdvReac Type Severity Reaction Status Date / Time No Known Allergies Allergy Verified 07/08/18 12:30 Home Medications Medication Instructions Recorded Confirmed Type No Known Home Medications 07/08/18 07/08/18 History Active Medications: Active Medications Al Hydroxide/Mg Hydroxide (Milk Of Magnjeb Liq) 30 ml PO Q12H PRN PRN Reason: Mild Constipation Albuterol (Albuterol Neb (Prn)) 2.5 mg NEB Q2HR NEB PRN PRN Reason: DYSPNEA Albuterol (Duoneb Neb (Prn)) 1 ampul NEB Q2HR NEB PRN PRN Reason: SHORTNESS OF BREATH Last Admin: 07/14/18 08:20 Dose: 1 ampul Chlorhexidine Gluconate (Peridex 0.12% Oral Kit) 15 ml OROPHARYNG BID@0800, 2000 [facility] Last Admin: 07/18/18 08:50 Dose: 15 ml Flumazenil (Romazecon Inj) 0.2 mg IV.PUSH Q1M PRN PRN Reason: OVERSEDATION Haloperidol Lactate (Haldol Inj) 1 mg IV.PUSH Q15M PRN PRN Reason: for severe agitation Hydralazine HCl (Apresoline Inj) 10 mg IV.PUSH Q1H PRN PRN Reason: Sys Bp Greater Than 165 [facility] Last Admin: 07/15/18 18:17 Dose: 10 mg Daptomycin 400 mg/ Sodium (Chloride) 100 mls @ 200 mls/hr IV.SIG Q48H [facility] Last Admin: 07/17/18 14:16 Dose: 200 mls/hr Piperacillin/Tazobactam/Dextrose (Zosyn 2.25 Gm Premix) 50 mls @ 100 mls/hr IV.SIG Q8H [facility] Last Admin: 07/18/18 12:08 Dose: 100 mls/hr Sodium Chloride (Ns Inj) 1,000 mls @ 30 mls/hr IV.CONT .Q24H [facility] Last Admin: 07/18/18 08:50 Dose: 30 mls/hr Propofol (Diprivan 1000 Mg/100 Ml Inj) 1,000 mg in 100 mls @ 2.376 mls/hr IV.CONT TITRATE PRN; Protocol PRN Reason: Per Protocol Last Admin: 07/18/18 04:35 Dose: 25 mcg/kg/min, 11.88 mls/hr Potassium Chloride (Kcl 20 Meq Premix Inj) 20 meq in 100 mls @ 50 mls/hr IV.SIG Q2H [facility] Stop: 07/18/18 16:29 Last Admin: 07/18/18 12:08 Dose: 50 mls/hr Labetalol HCl (Trandate Inj) 10 mg IV.PUSH Q1H PRN PRN Reason: Sbp>165, Dbp>90, Hr>65 Lactulose (Lactulose Liq) 30 ml PO DAILY PRN PRN Reason: SEVERE CONSITIPATION Lactulose (Lactulose Liq) 30 ml PO TID [facility] Last Admin: 07/18/18 12:08 Dose: Not Given Lorazepam (Ativan) 1 mg PO Q4H PRN PRN Reason: for CIWA 8-10 Lorazepam (Ativan) 2 mg PO Q2H PRN PRN Reason: for CIWA 11-14 Lorazepam (Ativan Inj) 2 mg IV.PUSH Q2H PRN PRN Reason: for CIWA 11-14 Last Admin: 07/12/18 23:49 Dose: 2 mg Lorazepam (Ativan Inj) 2 mg IV.PUSH Q1H PRN PRN Reason: for CIWA 15-20 Last Admin: 07/11/18 21:37 Dose: 2 mg Lorazepam (Ativan Inj) 2 mg IV.PUSH Q15M PRN PRN Reason: for CIWA > 20 Lorazepam (Ativan Inj) 1 mg IV.PUSH Q4H PRN PRN Reason: for CIWA 8-10 Last Admin: 07/12/18 10:48 Dose: 1 mg Miscellaneous Medication () 1 each OROPHARYNG 0000,0400,1200,1600 [facility] Last Admin: 07/18/18 12:08 Dose: 1 each Morphine Sulfate (Morphine Inj) 2 mg IV.PUSH Q4H PRN PRN Reason: BREAKTHROUGH PAIN Last Admin: 07/16/18 04:05 Dose: 2 mg Mupirocin (Bactroban 2% Nasal Oint) 1 applicatio EACH NARE BID [facility] Last Admin: 07/18/18 08:50 Dose: 1 applicatio Naloxone HCl (Narcan Inj) 0.4 mg IV.PUSH UNSCH PRN PRN Reason: SEE LABEL COMMENTS Ondansetron HCl (Zofran Inj) 4 mg IV.PUSH Q6H PRN PRN Reason: NAUSEA OR VOMITING Pantoprazole Sodium (Protonix Inj) 40 mg IV.PUSH DAILY [facility] Last Admin: 07/18/18 08:50 Dose: 40 mg Sennosides (Senokot) 17.2 mg PO Q12H PRN PRN Reason: Moderate Constipation Sodium Chloride (Ns Flush) 2 ml IV.FLUSH PRN PRN PRN Reason: FLUSH AFTER USING IV ACCESS Sodium Chloride (Ns Flush) 2 ml IV.FLUSH BID [facility] Last Admin: 07/18/18 08:50 Dose: 2 ml Physical Exam Vital signs: Vital Signs 07/17/18 14:00 07/17/18 15:00 07/17/18 16:00 Temperature 98.2 F Pulse Rate 71 72 69 Respiratory Rate 19 19 13 Blood Pressure 153/70 H 151/66 H 150/67 H Pulse Oximetry 97 96 96 07/17/18 17:00 07/17/18 17:38 07/17/18 18:00 Temperature 98.6 F Pulse Rate 72 71 Respiratory Rate 19 19 19 Blood Pressure 156/72 H 157/70 H Pulse Oximetry 97 97 97 07/17/18 19:00 07/17/18 20:00 07/17/18 20:28 Temperature 99.0 F Pulse Rate 73 75 Respiratory Rate 22 19 24 Blood Pressure 145/69 H 158/74 H Pulse Oximetry 96 96 96 07/17/18 21:00 07/17/18 22:00 07/17/18 23:00 Temperature Pulse Rate 78 79 78 Respiratory Rate 27 H 22 30 H Blood Pressure 158/74 H 151/74 H 163/76 H Pulse Oximetry 96 96 96 07/18/18 00:00 07/18/18 00:25 07/18/18 01:00 Temperature 98.5 F Pulse Rate 79 76 Respiratory Rate 24 16 20 Blood Pressure 161/74 H 163/74 H Pulse Oximetry 96 96 94 L 07/18/18 02:00 07/18/18 03:00 07/18/18 03:44 Temperature Pulse Rate 76 72 Respiratory Rate 20 19 17 Blood Pressure 158/74 H 151/73 H Pulse Oximetry 93 L 92 L 93 L 07/18/18 04:00 07/18/18 05:00 07/18/18 06:00 Temperature 98.6 F Pulse Rate 72 72 65 Respiratory Rate 19 16 Blood Pressure 159/72 H 178/85 H 151/76 H Pulse Oximetry 94 L 96 94 L 07/18/18 07:00 07/18/18 08:00 07/18/18 08:23 Temperature 98.1 F Pulse Rate 66 66 Respiratory Rate 23 17 17 Blood Pressure 146/72 H 139/68 Pulse Oximetry 94 L 93 L 99 07/18/18 09:00 07/18/18 09:03 07/18/18 09:24 Temperature Pulse Rate 69 73 Respiratory Rate 23 24 18 Blood Pressure 155/67 H Pulse Oximetry 96 96 100 07/18/18 10:00 07/18/18 11:00 07/18/18 12:00 Temperature 98.4 F Pulse Rate 82 76 70 Respiratory Rate 23 22 17 Blood Pressure 144/65 H 166/79 H 130/63 Pulse Oximetry 90 L 94 L 95 07/18/18 12:11 07/18/18 13:00 Temperature Pulse Rate 75 Respiratory Rate 21 17 Blood Pressure 153/70 H Pulse Oximetry 96 99 Intake & Output 07/17/18 07/18/18 07/18/18 18:59 06:59 18:59 Intake Total 500 / 500 250 / 250 900 / 900 Output Total 3870 / 3870 3460 / 3460 Balance -3370 / -3370 -3210 / -3210 900 / 900 Weight 66.3 kg Intake: IV 500 / 500 250 / 250 900 / 900 Bumex Inj 25 mg In 100 ml @ 1 100 / 100 MG/HR 4 mls/hr IV.CONT .Q24H [facility] Rx#:[id number] Diprivan 1000 mg/100 ml Inj 1, 200 / 200 200 / 200 000 mg In 100 ml @ 5 MCG/KG/MIN 2.376 mls/hr IV.CONT TITRATE PRN Rx#:[id number] NS Inj 1,000 ML @ 30 mls/hr IV. 600 / 600 CONT .Q24H [facility] Rx#:[id number] Zosyn 2.25 GM Premix 50 ML @ 100 / 100 50 / 50 100 mls/hr IV.SIG Q8H [facility] Rx#: [id number] KCl 20 mEq Premix Inj 20 meq In 100 / 100 100 / 100 100 ml @ 50 mls/hr IV.SIG Q2H [facility] Rx#:[id number] Oral 0 / 0 0 / 0 Output: Urine Amount (Catheter) 3800 / 3800 3400 / 3400 Indwelling Urethral Catheter 3800 / 3800 3400 / 3400 Chest Tube Drainage 70 / 70 60 / 60 Right 70 / 70 60 / 60 Other: Date of Last Bowel Movement 07/10/18 07/18/18 07/18/18 # Bowel Movements 0 1 - Constitutional no acute distress - Routine HEENT Exam Head: Present: normocephalic ENT: Present: mucous membranes moist Comments: chronic dilation of the left pupil - Routine Neck Exam Present: supple - Routine Respiratory Exam Present: patient mechanically ventilated, decreased breath sounds - Routine Cardiovascular Exam Present: S1, S2. Absent: murmur, gallop, rubs - Routine Abdominal Exam Present: normoactive bowel sounds - Routine Extremities Exam Present: pulses intact, normal capillary refill. Absent: cyanosis, clubbing, edema - Routine Skin Exam Present: intact - Routine Neurological Exam Sedated - Routine Psychiatric Exam Present: unable to assess - Urinary Catheter Management Indwelling Urethral Catheter Cath placed during this visit: yes Reason for continuing: Hourly intake/output Insertion date: 07/12/18 Insertion time: 07:45 Results 07/15/18 09:04 07/18/18 05:35 Comprehensive Metabolic Panel 07/17/18 07/18/18 Range/Units 05:41 05:35 Sodium 146 H 149 H (136-145) meq/L Potassium 2.8 L* 2.4 L* (3.5-5.1) meq/L Chloride 104 106 (98-107) meq/L Carbon Dioxide 30.3 32.4 H (21.0-32.0) meq/L BUN 78 H 72 H (7-18) mg/dL Creatinine 3.28 H 2.61 H (0.60-1.30) mg/dL Calcium 8.6 8.8 (8.5-10.1) mg/dL Albumin 3.5 3.1 L (3.4-5.0) g/dL Intake and Output 07/17/18 07/18/18 07/18/18 22:59 06:59 14:59 Intake Total 250 / 250 150 / 150 900 / 900 Output Total 3870 / 3870 3460 / 3460 Balance -3620 / -3620 -3310 / -3310 900 / 900 Intake: IV 250 / 250 150 / 150 900 / 900 Diprivan 1000 mg/100 ml Inj 1, 200 / 200 100 / 100 000 mg In 100 ml @ 5 MCG/KG/MIN 2.376 mls/hr IV.CONT TITRATE PRN Rx#:[id number] NS Inj 1,000 ML @ 30 mls/hr IV. 600 / 600 CONT .Q24H [facility] Rx#:[id number] Zosyn 2.25 GM Premix 50 ML @ 50 / 50 50 / 50 100 mls/hr IV.SIG Q8H [facility] Rx#: [id number] KCl 20 mEq Premix Inj 20 meq In 100 / 100 100 ml @ 50 mls/hr IV.SIG Q2H [facility] Rx#:[id number] Oral 0 / 0 0 / 0 Output: Urine Amount (Catheter) 3800 / 3800 3400 / 3400 Indwelling Urethral Catheter 3800 / 3800 3400 / 3400 Chest Tube Drainage 70 / 70 60 / 60 Right 70 / 70 60 / 60 Other: Date of Last Bowel Movement 07/10/18 07/18/18 07/18/18 # Bowel Movements 0 1 Weight 66.3 kg - Imaging and Cardiology Imaging: Impressions Chest X-Ray 07/17/18 00:00 CONCLUSION: Persistent patchy airspace disease No evidence of pneumothorax Endotracheal tube and right chest tube are in stable position. Assessment and Plan - Assessment (1) Chest pain Code(s): R07.9 - Chest pain, unspecified Status: Acute (2) Elevated troponin level Code(s): R74.8 - Abnormal levels of other serum enzymes Status: Acute (3) Liver failure Code(s): K72.90 - Hepatic failure, unspecified without coma Status: Acute (4) Hyperbilirubinemia Code(s): E80.6 - Other disorders of bilirubin metabolism Status: Acute - Plan Patient remains intubated and sedated. Wean vent as tolerated. Kidney function slightly improved, renal evaluation in progress. Patient had a recent NSTEMI, we will continue conservative management. We will continue with the current cardiac treatment plan and post [place] care. We will continue to monitor the patient during his hospitalization. The patient was seen and evaluated by Dr. Gonzalez who participated in care, management and decision making. - Attending Attestation Patient seen and examined. I reviewed and agree with the evaluation and plan as presented. Continue ICU care. Wean vent as tolerated. No new cardiac issues.
--- NOTE | 2018-07-18 15:52 | P.PNCC ---
Subjective Subjective Remarks/Hospital Course: 63-year-old male. Admission 07/09/2018. Date of consultation 2017. Past medical history includes ongoing alcoholism. Urine tox screen on admission positive for cocaine and opiates. Patient originally fell from a single bed about 1 week ago. He did not seek treatment for his swollen left elbow. He is initially diagnosed here with a left olecranon fracture/ nondisplaced. Seen by Dr. Blanco recommended splint/immobilization. Follow-up outpatient with x-rays in 2 weeks. He was treated with alcoholism for on the [facility] protocol receiving multivitamin, folate and thiamine. During admission, patient had multiple complaints including right upper quadrant pain. Patient has CT his abdomen/pelvis revealed hepatic steatosis, pericholecystic fluid with no ductal dilatation. Ultrasound showed pericholecystic 6 with negative Lundy sign. Nuclear medicine scan revealed no activity in the intrahepatic ducts compatible ducts or small bowel. Likely slightly disease. Patient was evaluated by gastroenterology for this issue. BOBBY, AMA, ASMA, SSA a and B, Ronquillo, scleroderma and double-stranded DNA all pending. Negative hepatitis panel. Noted patient had angiogram of the abdomen which revealed no focal stenosis of the SMA, MIC or celiac. Patient elevated troponin. Was seen by Dr. chaudhry. Echocardiogram revealed EF 55-6%. PA P 43 mmHg. Trace to mild TR. Possibly demand ischemia due to sepsis. Was on aspirin. Did receive/placed on heparin drip. This is currently on hold due to coagulopathic state. Patient has gram-positive cocci in blood. Infectious disease has been counseled. Currently on vancomycin for comfort.) I repeated blood cultures, sputum and urine culture today. Patient is 80% right carotid artery stenosis. Followed by Dr. Bassett. Patient was transferred to ICU with persistent hypotension increasing lactic acidosis in the setting of acute liver injury. Worsening renal function. Patient has received 2.5 L normal saline the present time his blood pressure appears stable. Patient is currently denying abdominal pain. SUBJECTIVE: 07/11: Currently resting in bed and asking when he can go home. Creatinine is elevated 2.3. Will bolus with additional fluid. Echocardiogram results noted. 07/12: Negligible urine output overnight. Culver placed. Short of breath this morning. Not requiring pressors 07/13: Patient in respiratory distress tachypneic breathing 40 breaths/min. Intermittently desaturating to low 80s on nasal cannula. Very lethargic hardly protecting airway. Emergently intubated and placed on mechanical ventilation. Currently on Bumex infusion urine output improving. However BUN/creatinine was 49/4.53. Chest x-ray today shows extensive right-sided infiltrate. Chest x- ray on 07/12 shows extensive right-sided lower lobe infiltrate but was clear on 07/10/2018. Indicates probable aspiration pneumonia 07/14: Intubated and placed on mechanical ventilation yesterday for severe hypoxemic respiratory failure. After intubation right pigtail chest tube placed for large effusion. Last 24 hours 1.4 L drained. Currently on broad- spectrum antibiotics. Remains septic renal function stable creatinine 4.57. Remains on Bumex drip urine output 2.4 L in 24 hours 07/15: Intubated off sedation waking up moving extremities. Chest x-ray and bedside ultrasound shows moderate to large left pleural effusion. Remains on Bumex drip 2.8 L urine output in 24 hours. Plan for left thoracentesis today. Bilirubin noted to be finding 7.5 today probably cholestasis. Previous HIDA scan showed questionable common bile duct obstruction versus hepatobiliary disease. Reconsult GI for further evaluation may need MRCP 07/16: Remains on mechanical ventilation. Acute kidney injury persists. 07/17: Respiratory effort during spontaneous breathing trials has improved modestly from yesterday. He continues to respond to loop diuretic infusion. Opens eyes and tracks today. 07/18: Renal function continues to improve and fluid removal going better. Gas exchange better today and respiratory effort on spontaneous breathing trials has improved. We will try to extubate today and begin further rehab. Objective Vital Signs / I&O: Vital Signs 07/17/18 16:00 07/17/18 17:00 07/17/18 17:38 Temperature 98.2 F Pulse Rate 69 72 Respiratory Rate 19 Blood Pressure 150/67 H 156/72 H Pulse Oximetry 96 97 97 07/17/18 18:00 07/17/18 19:00 07/17/18 20:00 Temperature 98.6 F 99.0 F Pulse Rate 71 73 75 Respiratory Rate 19 22 19 Blood Pressure 157/70 H 145/69 H 158/74 H Pulse Oximetry 97 96 96 07/17/18 20:28 07/17/18 21:00 12/13/18 22:00 Temperature Pulse Rate 78 79 Respiratory Rate 24 27 H 22 Blood Pressure 158/74 H 151/74 H Pulse Oximetry 96 96 96 07/17/18 23:00 07/18/18 00:00 07/18/18 00:25 Temperature 98.5 F Pulse Rate 78 79 Respiratory Rate 30 H 24 16 Blood Pressure 163/76 H 161/74 H Pulse Oximetry 96 96 96 07/18/18 01:00 07/18/18 02:00 07/18/18 03:00 Temperature Pulse Rate 76 76 72 Respiratory Rate 20 20 19 Blood Pressure 163/74 H 158/74 H 151/73 H Pulse Oximetry 94 L 93 L 92 L 07/18/18 03:44 07/18/18 04:00 07/18/18 05:00 Temperature 98.6 F Pulse Rate 72 72 Respiratory Rate 17 19 Blood Pressure 159/72 H 178/85 H Pulse Oximetry 93 L 94 L 96 07/18/18 06:00 07/18/18 07:00 07/18/18 08:00 Temperature 98.1 F Pulse Rate 65 66 66 Respiratory Rate 16 23 17 Blood Pressure 151/76 H 146/72 H 139/68 Pulse Oximetry 94 L 94 L 93 L 07/18/18 08:23 07/18/18 09:00 07/18/18 09:03 Temperature Pulse Rate 69 73 Respiratory Rate 17 23 24 Blood Pressure 155/67 H Pulse Oximetry 99 96 96 07/18/18 09:24 07/18/18 10:00 07/18/18 11:00 Temperature Pulse Rate 82 76 Respiratory Rate 18 23 22 Blood Pressure 144/65 H 166/79 H Pulse Oximetry 100 90 L 94 L 07/18/18 12:00 07/18/18 12:11 07/18/18 13:00 Temperature 98.4 F Pulse Rate 70 75 Respiratory Rate 17 21 17 Blood Pressure 130/63 153/70 H Pulse Oximetry 95 96 99 Intake & Output 07/17/18 07/18/18 07/18/18 18:59 06:59 18:59 Intake Total 500 / 500 250 / 250 900 / 900 Output Total 3870 / 3870 3460 / 3460 1850 / 1850 Balance -3370 / -3370 -3210 / -3210 -950 / -950 Weight 66.3 kg Intake: IV 500 / 500 250 / 250 900 / 900 Bumex Inj 25 mg In 100 ml @ 1 100 / 100 MG/HR 4 mls/hr IV.CONT .Q24H [facility] Rx#:[id number] Diprivan 1000 mg/100 ml Inj 1, 200 / 200 200 / 200 000 mg In 100 ml @ 5 MCG/KG/MIN 2.376 mls/hr IV.CONT TITRATE PRN Rx#:[id number] NS Inj 1,000 ML @ 30 mls/hr IV. 600 / 600 CONT .Q24H [facility] Rx#:[id number] Zosyn 2.25 GM Premix 50 ML @ 100 / 100 50 / 50 100 mls/hr IV.SIG Q8H [facility] Rx#: [id number] KCl 20 mEq Premix Inj 20 meq In 100 / 100 100 / 100 100 ml @ 50 mls/hr IV.SIG Q2H [facility] Rx#:[id number] Oral 0 / 0 0 / 0 Output: Urine Amount (Catheter) 3800 / 3800 3400 / 3400 1850 / 1850 Indwelling Urethral Catheter 3800 / 3800 3400 / 3400 1850 / 1850 Chest Tube Drainage 70 / 70 60 / 60 Right 70 / 70 60 / 60 Other: Date of Last Bowel Movement 07/10/18 07/18/18 07/18/18 # Bowel Movements 0 1 Result Diagrams: 07/15/18 09:04 07/18/18 05:35 Objective Remarks: GENERAL: Chronically ill appearing 63-year-old male. SKIN: Warm and dry. HEAD: Atraumatic. Normocephalic. EYES: Pupils are unequal right 2 mm reactive left is 5 mm nonreactive ENT: Orotracheally intubated. NECK: Trachea midline. Supple. CARDIOVASCULAR: Regular rate and rhythm. S1, S2 no S4. RESPIRATORY: Normal excursions with spontaneous breathing trials. Generally clear breath sounds. Right chest tube in place. GASTROINTESTINAL: Abdomen soft, non-tender, nondistended. No guarding, bowel sounds present. MUSCULOSKELETAL: Extremities well perfused. Left upper extremity currently in splint wrapped in Armen bandage NEUROLOGICAL: Patient is intubated and minimally sedated, with lightening patient does follow commands on bilateral upper extremities and withdraws bilateral lower extremity. Pupils are unequal right 2 mm reactive left is 5 mm nonreactive Assessment and Plan - Assessment and Plan Plan: Neuro/Psych: Acute metabolic encephalopathy Anisocoria EtOH abuse Recent cocaine/opiate abuse -inhaled. Denies intravenous MVI/ folate. Patient states he inhaled cocaine 4-5 days ago. Denies IV drug use. Discontinued acetaminophen and related products with elevated transaminases Stat CT of the head for unequal pupil, negative for acute findings CV: Severe sepsis Lactic acidosis Elevated troponin likely demand ischemia Right carotid artery stenosis Elevated CPK On decreasing Bumex infusion Cardiology Dr. chaudhry. No intervention planned 2D echocardiogram revealed Normal left ventricular size. Wall thickness is normal. The left ventricular systolic function is normal with an estimated ejection fraction in the range of 55-60%. Not on aspirin or heparin at this time due to thrombocytopenia Troponin trending downward. Followed by vascular surgery for right carotid artery stenosis 80%. Will need intervention when clinically stable. Resp: Acute hypoxemic respiratory failure Right lower lobe pneumonia with effusion Emphysematous type changes on CT neck Hyperammonemia Hypoalbuminemia Tobacco abuse Emergently intubated and placed on mechanical ventilation. PRVC/AC 07/13/2018 Bedside ultrasound shows large right pleural effusion, status post pigtail right chest tube with 1.4 L drained since placement on 07/13/2018 Plan for left thoracentesis today 07/15/2018 Vent bundle. Albuterol/ipratropium aerosols every 4 hours with albuterol aerosols every 2 hours as needed dyspnea Follow-up on chest x-ray and ABG Tobacco cessation will be encouraged Sputum cultures negative for growth so far Continue daily spontaneous breathing trials Start decreasing pressure support today 07/17, aim for extubation today GI: Elevated transaminases Elevated total bilirubin Poss acalc jody Hypoalbuminemia Noted CT abdomen/pelvis revealed possible early cholecystitis. Pericholecystic fluid. Ultrasound revealed negative Lundy sign. Nuclear medicine scan revealed no activity in the intrahepatic ductal compound bile duct or small bowel. 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 Patent MIC, celiac. Evaluated by gastroenterology. Hepatitis panel negative. Pending ceruloplasmin, BOBBY, AMA, ASMA, SSA AMB, anti-Ronquillo, RP, scleroderma, double-stranded DNA, hemochromatosis Currently on lactulose 30 cc 3 times daily for elevated ammonia. Continue tube feeds with Nepro. Endo: Sliding scale insulin with Accu-Cheks to maintain euglycemia/every 6 hours low regimen TSH 1. Cortisol 25 Renal: Acute kidney failure Culver catheter if indicated for accurate I's and O's in a critical patient with severe renal failure and on Bumex drip Good urine output on Bumex drip, 2.8 L in 24 hours BUN/creatinine elevated nephrology following. Creatinine is 4.58 today however nonoliguric urine eosinophils negative, Monitor urine output Avoid nephrotoxic medication. Discontinued vancomycin 07/11 Heme: Macrocytic anemia Thrombocytopenia Coagulopathic state Follow-up on PT/INR/PTT and fibrinogen No indication for transfusion of blood products at this time ID: MRSA bacteremia Septic shock Right lower lobe pneumonia/aspiration 2D transthoracic echocardiogram revealed no signs of endocarditis. Infectious disease following Currently on daptomycin and Zosyn. Zyvox added for gram-positive coverage for presumed pneumonia Pleural fluid studies have no evidence of infection MSK: Left posterior olecranon fracture Followed by Dr. Blanco, splint immobilized. Follow-up in 2 weeks with x-rays CT left elbow today FEN: Replace electrolytes as clinically indicated Access -Utilize peripheral IV. Central line if indicated Prophylaxis -GI -pantoprazole -DVT-SCD/hold off chemical DVT prophylaxis due to severe thrombocytopenia Overall impression: Patient remains critically ill, having been recently intubated for worsening acute hypoxemic respiratory failure. Care complicated by severe acute renal failure and ongoing sepsis. May try to extubate later today.
--- NOTE | 2018-07-18 16:08 | P.PNID ---
Subjective Remarks: Patient is a 63-year-old male, presented to the hospital complaining of pain and swelling on his left elbow. He stated that he fell about a week ago but did not seek any treatment for his left elbow. He presented to the ED, and he was found to have a fracture of the olecranon on the left side. Patient also since admission has complained of some abdominal pain. He has known history of significant alcohol abuse. Imaging studies of the abdomen showed hepatic steatosis, pericholecystic fluid with no ductal dilatation. Ultrasound showed pericholecystic fluid with negative Lundy sign. He had a HIDA scan which showed no activity which could most likely be due to his liver disease. Patient also had a CTA as part of evaluation for his abdominal pain. That is okay. There were 2 blood cultures done in the ED, and they are now reported as growing MRSA. Patient has had some low-grade temps. Overnight he had persistent hypotension, and he was transferred to the ICU. Patient currently is on pressors. He is afebrile. He is still complaining of abdominal pain. He states he has chronic back pain which has not changed. He denies any shortness of breath. On this admission he was also found to have 80% right carotid artery stenosis, and vascular is following the patient. Echocardiograms not showing any obvious vegetation. His WBC is mildly elevated. He has an elevated lactic acid. His platelet count is low, fibrinogen is normal. Infectious disease consultation has been requested to assist with evaluation and treatment of his bacteremia. Notes reviewed Extubated this afternoon On nasal O2 Has moist cough Temps ok Creatinine improving, good UO Has CT R - fluid serous NO new (+) BC WBC normal Sputum ok Antibiotics: Zosyn Cubicin Lines: Line sites with no e.o infection Past Medical History: Tobacco and ETOH abuse Drug screen (+) cocaine (denies IVDU), admits to smoking Allergies/Adverse Reactions: Allergies No Known Allergies Allergy (Verified 07/08/18 12:30) Objective Vital Signs 07/17/18 17:00 07/17/18 17:38 07/17/18 18:00 Temperature 98.6 F Pulse Rate 72 71 Respiratory Rate 19 19 19 Blood Pressure 156/72 H 157/70 H Pulse Oximetry 97 97 97 07/17/18 19:00 07/17/18 20:00 07/17/18 20:28 Temperature 99.0 F Pulse Rate 73 75 Respiratory Rate 22 19 24 Blood Pressure 145/69 H 158/74 H Pulse Oximetry 96 96 96 07/17/18 21:00 07/17/18 22:00 07/17/18 23:00 Temperature Pulse Rate 78 79 78 Respiratory Rate 27 H 22 30 H Blood Pressure 158/74 H 151/74 H 163/76 H Pulse Oximetry 96 96 96 07/18/18 00:00 07/18/18 00:25 07/18/18 01:00 Temperature 98.5 F Pulse Rate 79 76 Respiratory Rate 24 16 20 Blood Pressure 161/74 H 163/74 H Pulse Oximetry 96 96 94 L 07/18/18 02:00 07/18/18 03:00 07/18/18 03:44 Temperature Pulse Rate 76 72 Respiratory Rate 20 19 17 Blood Pressure 158/74 H 151/73 H Pulse Oximetry 93 L 92 L 93 L 07/18/18 04:00 07/18/18 05:00 07/18/18 06:00 Temperature 98.6 F Pulse Rate 72 72 65 Respiratory Rate 19 16 Blood Pressure 159/72 H 178/85 H 151/76 H Pulse Oximetry 94 L 96 94 L 07/18/18 07:00 07/18/18 08:00 07/18/18 08:23 Temperature 98.1 F Pulse Rate 66 66 Respiratory Rate 23 17 17 Blood Pressure 146/72 H 139/68 Pulse Oximetry 94 L 93 L 99 07/18/18 09:00 07/18/18 09:03 07/18/18 09:24 Temperature Pulse Rate 69 73 Respiratory Rate 23 24 18 Blood Pressure 155/67 H Pulse Oximetry 96 96 100 07/18/18 10:00 07/18/18 11:00 07/18/18 12:00 Temperature 98.4 F Pulse Rate 82 76 70 Respiratory Rate 23 22 17 Blood Pressure 144/65 H 166/79 H 130/63 Pulse Oximetry 90 L 94 L 95 07/18/18 12:11 07/18/18 13:00 07/18/18 14:00 Temperature Pulse Rate 75 75 Respiratory Rate 21 17 21 Blood Pressure 153/70 H 162/67 H Pulse Oximetry 96 99 98 07/18/18 15:00 Temperature Pulse Rate 77 Respiratory Rate 28 H Blood Pressure 154/67 H Pulse Oximetry 99 Intake & Output 12/07/18/18 07/18/18 18:59 06:59 18:59 Intake Total 500 / 500 250 / 250 900 / 900 Output Total 3870 / 3870 3460 / 3460 1850 / 1850 Balance -3370 / -3370 -3210 / -3210 -950 / -950 Weight 66.3 kg Intake: IV 500 / 500 250 / 250 900 / 900 Bumex Inj 25 mg In 100 ml @ 1 100 / 100 MG/HR 4 mls/hr IV.CONT .Q24H [facility] Rx#:[id number] Diprivan 1000 mg/100 ml Inj 1, 200 / 200 200 / 200 000 mg In 100 ml @ 5 MCG/KG/MIN 2.376 mls/hr IV.CONT TITRATE PRN Rx#:[id number] NS Inj 1,000 ML @ 30 mls/hr IV. 600 / 600 CONT .Q24H [facility] Rx#:[id number] Zosyn 2.25 GM Premix 50 ML @ 100 / 100 50 / 50 100 mls/hr IV.SIG Q8H [facility] Rx#: [id number] KCl 20 mEq Premix Inj 20 meq In 100 / 100 100 / 100 100 ml @ 50 mls/hr IV.SIG Q2H [facility] Rx#:[id number] Oral 0 / 0 0 / 0 Output: Urine Amount (Catheter) 3800 / 3800 3400 / 3400 1850 / 1850 Indwelling Urethral Catheter 3800 / 3800 3400 / 3400 1850 / 1850 Chest Tube Drainage 70 / 70 60 / 60 Right 70 / 70 60 / 60 Other: Date of Last Bowel Movement 07/10/18 07/18/18 07/18/18 # Bowel Movements 0 1 07/15/18 11:45 Fluid - Pleural fluid Gram Stain - Final 07/15/18 11:45 Fluid - Pleural fluid Body Fluid Culture - Final No growth in 72 hours (aerobically and anaerobically ) 07/13/18 08:55 Fluid - Pleural fluid Gram Stain - Final 07/13/18 08:55 Fluid - Pleural fluid Body Fluid Culture - Final No growth in 72 hours (aerobically and anaerobically ) Lab - Chemistry Results 07/17/18 07/17/18 07/18/18 05:41 11:50 05:35 Sodium 146 H 149 H Potassium 2.8 L* 2.4 L* Chloride 104 106 Carbon Dioxide 30.3 32.4 H Anion Gap 12 11 BUN 78 H 72 H Creatinine 3.28 H 2.61 H Estimated GFR 19 L 25 L POC Glucose 118 H Random Glucose 123 H 106 Calcium 8.6 8.8 Phosphorus 4.8 2.5 D Albumin 3.5 3.1 L Imaging: ITS Impressions Elbow X-Ray 07/08/18 18:01 CONCLUSION: 1. Small, mildly displaced olecranon avulsion fracture fragments of the triceps insertion with associated soft tissue swelling. 2. Joint effusion. No perceptible intra-articular fracture. No subluxation. Abdomen/Pelvis CT 07/08/18 18:02 CONCLUSION: 1. Severe fatty infiltration of the liver. 2. Apparent pericholecystic fluid. Also fairly robust enhancement of the gallbladder mucosa. Please correlate clinically for any evidence of cholecystitis. No stones or ductal dilatation demonstrated. Gallbladder Ultrasound 07/08/18 18:53 CONCLUSION: 1. Small, nonspecific pericholecystic fluid without stones, wall thickening or sonographic Lundy's sign. The fluid may be on the basis of hepatocellular disease. The ultrasound does not support acute cholecystitis. 2. Fatty infiltrated and mildly enlarged liver. Carotid Doppler Study 07/09/18 00:00 CONCLUSION: 1. Right Internal Carotid Artery: Findings indicate >70% stenosis, but less than near occlusion. 2. Left Internal Carotid Artery: Findings indicate <50% stenosis. Hepatobiliary Scan Nuclear Medicine 07/09/18 14:22 CONCLUSION: 1. No activity in intrahepatic ducts, common duct or small bowel. Considerations include include acute obstruction of the common duct and diffuse hepatocellular disease. 2. CT scan shows no dilatation of the common duct or intrahepatic ducts. Diffuse hepatocellular disease is suspected. Neck CTA 07/10/18 00:00 CONCLUSION: 1. 80% stenosis of the proximal right ICA. Left carotid and bilateral vertebral arteries are patent. 2. Emphysematous changes. Abdomen/Pelvis CTA 07/10/18 00:08 CONCLUSION: 1. 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 The SMA and MIC are patent. 2. Hepatic steatosis. 3. Emphysematous changes. Abdomen/Bladder Ultrasound 07/11/18 00:00 CONCLUSION: 1. Normal ultrasound appearance of the kidneys. 2. Other findings include hepatic steatosis and left pleural effusion. Elbow CT 07/11/18 00:00 CONCLUSION: 1. Small fracture fragment off the olecranon. 2. There is subcutaneous edema identified posterior to the elbow with soft tissue swelling. Head CT 07/13/18 00:00 CONCLUSION: 1. No acute intracranial abnormality. 2. Atrophy. . Chest X-Ray 07/17/18 00:00 CONCLUSION: Persistent patchy airspace disease No evidence of pneumothorax Endotracheal tube and right chest tube are in stable position. Physical Exam: GENERAL: awake, weak, NAD SKIN: Cool and dry. No generalized rash, no ecchymoses. HEAD: Atraumatic. Normocephalic. No temporal wasting, or tenderness. EYES: [place] conjunctiva. No petechia or hemorrhage. Pupils equal, round and reactive to light. Has mild injection ENT: Intubated CARDIOVASCULAR: Regular rate and rhythm. RESPIRATORY: Decreased BS at bases ABDOMEN: Soft, no response to palpation EXTREMITIES: No clubbing, cyanosis. Mild pedal edema. Has posterior splint in his whole LUE NEUROLOGICAL: Pupils unequal left > right. PSYCHIATRIC: Unable to assess LINE: No evidence of infection Assessment and Plan - Plan Impression MRSA sepsis ? olecranon trauma as entry point for MRSA MRSA bacteremia, ? endocarditis Shock, resolved Known ETOH abuse and tobacco abuse Denies IVDU, admits to smoking cocaine ETOH liver disease Elevated LFT Thrombocytopenia Acute renal failure: sepsis, contrast, meds. - has good UO Respiratory failure, extubated today Pleural effusion, has CT - fluid transudative Recommendation continue Cubicin for now for MRSA bacteremia Continue Zosyn ?aspiration prior to intubation. - if stable, will stop tomorrow Follow C/S Follow temps Monitor progress D/W MAURIZIO
[2018-07-19] MEDS: Potassium Chlor 20 mEq Premix 20 MEQ/100 ML PIGGYBACK IV.SIG SCH ×6 (00:17→20:53)
[2018-07-19] MEDS: Oral Hygiene Kit OROPHARYNG SCH ×4 (03:36→15:47)
[2018-07-19] MEDS: Piperacil/Tazo 2.25 GM Premix 50 ML IV.SIG SCH ×3 (05:07→19:29)
[2018-07-19] MEDS: hydrALAZINE HCl Inj 20 MG/ML Vial IV.PUSH PRN (05:07)
[2018-07-19 06:16] LABS: Albumin 3.2 g/dL (3.4-5.0); Calcium 9.1 mg/dL (8.5-10.1); Carbon Dioxide 35.5 meq/L (21.0-32.0); Magnesium 1.7 mg/dL (1.5-2.5); Phosphorus 2.8 mg/dL (2.5-4.9); Potassium 3.4 meq/L (3.5-5.1)
[2018-07-19] MEDS: Chlorhexidine 0.12% Oral Kit 15 ML UDC OROPHARYNG SCH ×2 (07:46→19:29)
[2018-07-19] MEDS: Sod Chloride 0.9% Inj 1,000 ML IV.CONT SCH (08:22)
[2018-07-19] MEDS: Pantoprazole Inj 40 MG Vial IV.PUSH SCH (08:23)
[2018-07-19] MEDS: Mupirocin 2% Nasal Oint Topical Syringe EACH NARE SCH ×2 (08:23→20:52)
[2018-07-19] MEDS: DAPTOmycin Inj 400 MG in Sodium Chlor 0.9% Inj 100 ML IV.SIG SCH (11:40)
[2018-07-19] MEDS: Morphine Inj 4 MG/ML Vial IV.PUSH PRN ×2 (13:01→16:45)
--- NOTE | 2018-07-19 13:42 | P.PNNP ---
Subjective Interval history: Has just received pain medication so minimally responsive. Creatinine is stable and improving at 2.24. Sodium level elevated at 158. <Edel Lantigua - Last Filed: 07/19/18 13:36> Physical Exam Vital signs: Vital Signs 07/18/18 14:00 07/18/18 15:00 07/18/18 16:00 Temperature 98.5 F Pulse Rate 75 77 73 Respiratory Rate 21 28 H 29 H Blood Pressure 162/67 H 154/67 H 169/76 H Pulse Oximetry 98 99 99 07/18/18 17:00 07/18/18 18:00 07/18/18 19:00 Temperature Pulse Rate 71 74 71 Respiratory Rate 22 20 27 H Blood Pressure 143/63 H 165/70 H Pulse Oximetry 97 98 100 07/18/18 20:00 07/18/18 20:41 07/18/18 21:00 Temperature 97.4 F L Pulse Rate 68 68 Respiratory Rate 23 21 Blood Pressure 157/76 H 149/66 H Pulse Oximetry 99 98 98 07/18/18 22:00 07/18/18 23:00 07/19/18 00:00 Temperature 97.9 F Pulse Rate 71 74 74 Respiratory Rate 25 H 26 H 25 H Blood Pressure 166/75 H 162/74 H 163/98 H Pulse Oximetry 91 L 98 95 07/19/18 01:00 07/19/18 02:00 07/19/18 03:00 Temperature Pulse Rate 74 71 72 Respiratory Rate 22 21 22 Blood Pressure 166/83 H 166/83 H 164/71 H Pulse Oximetry 99 100 100 07/19/18 04:00 07/19/18 05:00 07/19/18 06:00 Temperature 97.9 F Pulse Rate 73 74 72 Respiratory Rate 26 H 29 H 27 H Blood Pressure 182/81 H 171/81 H 172/77 H Pulse Oximetry 96 97 97 07/19/18 07:00 07/19/18 07:57 07/19/18 08:00 Temperature 97.7 F 97.7 F Pulse Rate 68 70 69 Respiratory Rate 25 H 32 H Blood Pressure 151/68 H 144/68 H Pulse Oximetry 97 93 L 07/19/18 09:00 07/19/18 10:00 07/19/18 11:00 Temperature Pulse Rate 68 75 68 Respiratory Rate 33 H 37 H 27 H Blood Pressure 137/65 145/70 H 133/63 Pulse Oximetry 98 96 95 07/19/18 12:00 07/19/18 13:00 07/19/18 13:18 Temperature Pulse Rate 67 70 Respiratory Rate 33 H 30 H 24 Blood Pressure 151/68 H 143/78 H Pulse Oximetry 93 L 97 Intake & Output 07/18/18 07/19/18 07/19/18 18:59 06:59 18:59 Intake Total 1150 / 1150 300 / 300 1150 / 1150 Output Total 2700 / 2700 1994 Balance -1550 / -1550 -1695 / -1695 1150 / 1150 Weight 62.3 kg Intake: IV 1150 / 1150 300 / 300 1150 / 1150 NS Inj 1,000 ML @ 30 mls/hr IV. 600 / 600 1000 / 1000 CONT .Q24H [facility] Rx#:[id number] Cubicin Inj 400 MG In NS Inj 100 / 100 100 ML @ 200 mls/hr IV.SIG Q48H [facility] Rx#:[id number] Zosyn 2.25 GM Premix 50 ML @ 50 / 50 100 / 100 50 / 50 100 mls/hr IV.SIG Q8H [facility] Rx#: [id number] KCl 20 mEq Premix Inj 20 meq In 300 / 300 200 / 200 100 ml @ 50 mls/hr IV.SIG Q2H [facility] Rx#:[id number] Output: Urine Amount (Catheter) 2600 / 2600 1949 / 1950 Indwelling Urethral Catheter 2600 / 2600 1950 / 1950 Chest Tube Drainage 100 / 100 45 / 45 Right 100 / 100 45 / 45 Other: Date of Last Bowel Movement 07/18/18 07/19/18 07/19/18 Narrative: GENERAL: Minimally responsive, just medicated SKIN: Warm and dry. NECK: Supple, trachea midline. No JVD. CARDIOVASCULAR: Regular rate and rhythm without murmurs, gallops, or rubs. RESPIRATORY: Breath sounds equal right-sided chest tube. GASTROINTESTINAL: Abdomen soft, non-tender, nondistended. GENITOURINARY: Condom catheter, light yellow urine. MUSCULOSKELETAL: No cyanosis, no edema. . - Urinary Catheter Management Indwelling Urethral Catheter Cath placed during this visit: yes, but has since been removed by the nurse Reason for continuing: Decision to DC catheter Insertion date: 07/12/18 Insertion time: 07:45 Removal date: 07/19/18 Removal time: 10:45 Condom Cath placed during this visit: yes Reason for continuing: Not indwelling catheter Insertion date: 07/19/18 Insertion time: 10:50 <Edel Lantigua - Last Filed: 07/19/18 13:36> Vital signs: Vital Signs 07/18/18 22:00 07/18/18 23:00 07/19/18 00:00 Temperature 97.9 F Pulse Rate 71 74 74 Respiratory Rate 25 H 26 H 25 H Blood Pressure 166/75 H 162/74 H 163/98 H Pulse Oximetry 91 L 98 95 07/19/18 01:00 07/19/18 02:00 07/19/18 03:00 Temperature Pulse Rate 74 71 72 Respiratory Rate 22 21 22 Blood Pressure 166/83 H 166/83 H 164/71 H Pulse Oximetry 99 100 100 07/19/18 04:00 07/19/18 05:00 07/19/18 06:00 Temperature 97.9 F Pulse Rate 73 74 72 Respiratory Rate 26 H 29 H 27 H Blood Pressure 182/81 H 171/81 H 172/77 H Pulse Oximetry 96 97 97 07/19/18 07:00 07/19/18 07:57 07/19/18 08:00 Temperature 97.7 F 97.7 F Pulse Rate 68 70 69 Respiratory Rate 25 H 32 H Blood Pressure 151/68 H 144/68 H Pulse Oximetry 97 93 L 07/19/18 09:00 07/19/18 10:00 07/19/18 11:00 Temperature Pulse Rate 68 75 68 Respiratory Rate 33 H 37 H 27 H Blood Pressure 137/65 145/70 H 133/63 Pulse Oximetry 98 96 95 07/19/18 12:00 07/19/18 13:00 07/19/18 13:18 Temperature Pulse Rate 67 70 Respiratory Rate 33 H 30 H 24 Blood Pressure 151/68 H 143/78 H Pulse Oximetry 93 L 97 07/19/18 14:00 07/19/18 15:00 07/19/18 16:00 Temperature Pulse Rate 65 66 64 Respiratory Rate 44 H 113 H 89 H Blood Pressure 148/71 H 147/74 H 153/74 H Pulse Oximetry 98 97 99 07/19/18 17:00 07/19/18 18:00 07/19/18 19:00 Temperature Pulse Rate 68 69 68 Respiratory Rate 111 H 81 H 77 H Blood Pressure 139/69 152/73 H 139/66 Pulse Oximetry 95 97 97 07/19/18 20:00 07/19/18 21:00 Temperature 97.5 F L Pulse Rate 67 68 Respiratory Rate 103 H 20 Blood Pressure 144/73 H 150/73 H Pulse Oximetry 95 94 L Intake & Output 07/19/18 07/19/18 07/20/18 06:59 18:59 06:59 Intake Total 300 / 300 1450 / 1450 150 / 150 Output Total 1994 1350 / 1350 Balance -1695 / -1695 100 / 100 150 / 150 Weight 62.3 kg Intake: IV 300 / 300 1450 / 1450 150 / 150 NS Inj 1,000 ML @ 30 mls/hr IV. 1100 / 1100 CONT .Q24H [facility] Rx#:[id number] Cubicin Inj 400 MG In NS Inj 100 / 100 100 ML @ 200 mls/hr IV.SIG Q48H [facility] Rx#:[id number] Zosyn 2.25 GM Premix 50 ML @ 100 / 100 50 / 50 50 / 50 100 mls/hr IV.SIG Q8H [facility] Rx#: [id number] KCl 20 mEq Premix Inj 20 meq In 200 / 200 200 / 200 100 / 100 100 ml @ 50 mls/hr IV.SIG Q2H [facility] Rx#:[id number] Output: Urine Amount (Catheter) 1949 1350 / 1350 Condom 1350 / 1350 Indwelling Urethral Catheter 1949 Chest Tube Drainage 45 / 45 0 / 0 Right 45 / 45 0 / 0 Other: Date of Last Bowel Movement 07/19/18 07/19/18 07/19/18 - Urinary Catheter Management Indwelling Urethral Catheter Cath placed during this visit: no Condom Cath placed during this visit: no <Dina Rivas - Last Filed: 07/19/18 21:16> Assessment and Plan - Assessment (1) Acute kidney injury Code(s): N17.9 - Acute kidney failure, unspecified Status: Acute Plan: No previous history of chronic kidney disease. Creatinine started to increase on the 6th NEERU possible ATN from sepsis or contrast Nephropathy. Creatinine started to increase about 48 hours after receiving contrast. Also possibility of AIN with vancomycin use however random level not elevated. Urine EOS negative. CT of abdomen shows kidney with in normal limits. Avoid Nephrotoxins. Hypokalemia at 3.4 on replacement. Follow the urine out put and BMP. (2) Hypernatremia Code(s): E87.0 - Hyperosmolality and hypernatremia Status: Acute Plan: D5 1/4 NS at 42 ml/hr ordered. Patient is extubated yesterday and speech evaluation in process. (3) Respiratory failure Code(s): J96.90 - Respiratory failure, unspecified, unspecified whether with hypoxia or hypercapnia Status: Acute Plan: Extubated 07/18, on NC with good sats (4) Bacteremia Code(s): R78.81 - Bacteremia Status: Acute Plan: On antibiotics renal dose as appropriate <Edel Lantigua - Last Filed: 07/19/18 13:36> - Assessment (1) Acute kidney injury Code(s): N17.9 - Acute kidney failure, unspecified Status: Acute Plan: Patient seen and examined, agree with above. Creatinine is better. Has electrolyte disorder with high sodium and low K. (2) Hypernatremia Code(s): E87.0 - Hyperosmolality and hypernatremia Status: Acute (3) Respiratory failure Code(s): J96.90 - Respiratory failure, unspecified, unspecified whether with hypoxia or hypercapnia Status: Acute (4) Bacteremia Code(s): R78.81 - Bacteremia Status: Acute <Dina Rivas - Last Filed: 07/19/18 21:16>
[2018-07-19] MEDS ORDERED: Dextrose 5%/NaCl 0.225% Inj 1,000 ML IV.CONT SCH (13:45)
--- NOTE | 2018-07-19 14:33 | P.PNCA ---
Subjective Interval history: Patient extubated yesterday to ID. Patient is very lethargic and does not follow any commands. VSS on monitor. Medications and Allergies Allergies Allergy/AdvReac Type Severity Reaction Status Date / Time No Known Allergies Allergy Verified 07/08/18 12:30 Home Medications Medication Instructions Recorded Confirmed Type No Known Home Medications 07/08/18 07/08/18 History Active Medications: Active Medications Al Hydroxide/Mg Hydroxide (Milk Of Magnjeb Liq) 30 ml PO Q12H PRN PRN Reason: Mild Constipation Albuterol (Albuterol Neb (Prn)) 2.5 mg NEB Q2HR NEB PRN PRN Reason: DYSPNEA Albuterol (Duoneb Neb (Prn)) 1 ampul NEB Q2HR NEB PRN PRN Reason: SHORTNESS OF BREATH Last Admin: 07/14/18 08:20 Dose: 1 ampul Chlorhexidine Gluconate (Peridex 0.12% Oral Kit) 15 ml OROPHARYNG BID@0800, 2000 [facility] Last Admin: 07/19/18 07:46 Dose: 15 ml Flumazenil (Romazecon Inj) 0.2 mg IV.PUSH Q1M PRN PRN Reason: OVERSEDATION Haloperidol Lactate (Haldol Inj) 1 mg IV.PUSH Q15M PRN PRN Reason: for severe agitation Hydralazine HCl (Apresoline Inj) 10 mg IV.PUSH Q1H PRN PRN Reason: Sys Bp Greater Than 165 Mmhg Last Admin: 07/19/18 05:07 Dose: 10 mg Daptomycin 400 mg/ Sodium (Chloride) 100 mls @ 200 mls/hr IV.SIG Q48H [facility] Last Infusion: 07/19/18 12:44 Dose: Infused Piperacillin/Tazobactam/Dextrose (Zosyn 2.25 Gm Premix) 50 mls @ 100 mls/hr IV.SIG Q8H [facility] Last Infusion: 07/19/18 11:04 Dose: Infused Sodium Chloride (Ns Inj) 1,000 mls @ 30 mls/hr IV.CONT .Q24H [facility] Last Admin: 07/19/18 08:22 Dose: 30 mls/hr Propofol (Diprivan 1000 Mg/100 Ml Inj) 1,000 mg in 100 mls @ 2.376 mls/hr IV.CONT TITRATE PRN; Protocol PRN Reason: Per Protocol Last Admin: 07/18/18 04:35 Dose: 25 mcg/kg/min, 11.88 mls/hr Dextrose/Sodium Chloride (D5w/1/4 Ns Inj) 1,000 mls @ 42 mls/hr IV.CONT .[id number] [facility] Labetalol HCl (Trandate Inj) 10 mg IV.PUSH Q1H PRN PRN Reason: Sbp>165, Dbp>90, Hr>65 Lactulose (Lactulose Liq) 30 ml PO DAILY PRN PRN Reason: SEVERE CONSITIPATION Lactulose (Lactulose Liq) 30 ml PO TID [facility] Last Admin: 07/19/18 12:22 Dose: Not Given Lorazepam (Ativan) 1 mg PO Q4H PRN PRN Reason: for CIWA 8-10 Lorazepam (Ativan) 2 mg PO Q2H PRN PRN Reason: for CIWA 11-14 Lorazepam (Ativan Inj) 2 mg IV.PUSH Q2H PRN PRN Reason: for CIWA 11-14 Last Admin: 07/19/18 08:28 Dose: 2 mg Lorazepam (Ativan Inj) 2 mg IV.PUSH Q1H PRN PRN Reason: for CIWA 15-20 Last Admin: 07/11/18 21:37 Dose: 2 mg Lorazepam (Ativan Inj) 2 mg IV.PUSH Q15M PRN PRN Reason: for CIWA > 20 Lorazepam (Ativan Inj) 1 mg IV.PUSH Q4H PRN PRN Reason: for CIWA 8-10 Last Admin: 07/19/18 00:16 Dose: 1 mg Miscellaneous Medication () 1 each OROPHARYNG 0000,0400,1200,1600 [facility] Last Admin: 07/19/18 11:45 Dose: 1 each Morphine Sulfate (Morphine Inj) 2 mg IV.PUSH Q4H PRN PRN Reason: BREAKTHROUGH PAIN Last Admin: 07/19/18 13:01 Dose: 2 mg Mupirocin (Bactroban 2% Nasal Oint) 1 applicatio EACH NARE BID [facility] Last Admin: 07/19/18 08:23 Dose: 1 applicatio Naloxone HCl (Narcan Inj) 0.4 mg IV.PUSH UNSCH PRN PRN Reason: SEE LABEL COMMENTS Ondansetron HCl (Zofran Inj) 4 mg IV.PUSH Q6H PRN PRN Reason: NAUSEA OR VOMITING Pantoprazole Sodium (Protonix Inj) 40 mg IV.PUSH DAILY [facility] Last Admin: 07/19/18 08:23 Dose: 40 mg Sennosides (Senokot) 17.2 mg PO Q12H PRN PRN Reason: Moderate Constipation Sodium Chloride (Ns Flush) 2 ml IV.FLUSH PRN PRN PRN Reason: FLUSH AFTER USING IV ACCESS Sodium Chloride (Ns Flush) 2 ml IV.FLUSH BID [facility] Last Admin: 07/19/18 08:24 Dose: 2 ml Physical Exam Vital signs: Vital Signs 07/18/18 15:00 07/18/18 16:00 07/18/18 17:00 Temperature 98.5 F Pulse Rate 77 73 71 Respiratory Rate 28 H 29 H 22 Blood Pressure 154/67 H 169/76 H 143/63 H Pulse Oximetry 99 99 97 07/18/18 18:00 07/18/18 19:00 07/18/18 20:00 Temperature 97.4 F L Pulse Rate 74 71 68 Respiratory Rate 20 27 H 23 Blood Pressure 165/70 H 157/76 H Pulse Oximetry 98 100 99 07/18/18 20:41 07/18/18 21:00 07/18/18 22:00 Temperature Pulse Rate 68 71 Respiratory Rate 21 25 H Blood Pressure 149/66 H 166/75 H Pulse Oximetry 98 98 91 L 07/18/18 23:00 07/19/18 00:00 07/19/18 01:00 Temperature 97.9 F Pulse Rate 74 74 74 Respiratory Rate 26 H 25 H 22 Blood Pressure 162/74 H 163/98 H 166/83 H Pulse Oximetry 98 95 99 07/19/18 02:00 07/19/18 03:00 07/19/18 04:00 Temperature 97.9 F Pulse Rate 71 72 73 Respiratory Rate 21 22 26 H Blood Pressure 166/83 H 164/71 H 182/81 H Pulse Oximetry 100 100 96 07/19/18 05:00 07/19/18 06:00 07/19/18 07:00 Temperature 97.7 F Pulse Rate 74 72 68 Respiratory Rate 29 H 27 H 25 H Blood Pressure 171/81 H 172/77 H 151/68 H Pulse Oximetry 97 97 97 07/19/18 07:57 07/19/18 08:00 07/19/18 09:00 Temperature 97.7 F Pulse Rate 70 69 68 Respiratory Rate 32 H 33 H Blood Pressure 144/68 H 137/65 Pulse Oximetry 93 L 98 07/19/18 10:00 07/19/18 11:00 07/19/18 12:00 Temperature Pulse Rate 75 68 67 Respiratory Rate 37 H 27 H 33 H Blood Pressure 145/70 H 133/63 151/68 H Pulse Oximetry 96 95 93 L 07/19/18 13:00 07/19/18 13:18 Temperature Pulse Rate 70 Respiratory Rate 30 H 24 Blood Pressure 143/78 H Pulse Oximetry 97 Intake & Output 07/18/18 07/19/18 07/19/18 18:59 06:59 18:59 Intake Total 1150 / 1150 300 / 300 1150 / 1150 Output Total 2700 / 2700 1994 Balance -1550 / -1550 -1695 / -1695 1150 / 1150 Weight 62.3 kg Intake: IV 1150 / 1150 300 / 300 1150 / 1150 NS Inj 1,000 ML @ 30 mls/hr IV. 600 / 600 1000 / 1000 CONT .Q24H [facility] Rx#:[id number] Cubicin Inj 400 MG In NS Inj 100 / 100 100 ML @ 200 mls/hr IV.SIG Q48H [facility] Rx#:[id number] Zosyn 2.25 GM Premix 50 ML @ 50 / 50 100 / 100 50 / 50 100 mls/hr IV.SIG Q8H [facility] Rx#: [id number] KCl 20 mEq Premix Inj 20 meq In 300 / 300 200 / 200 100 ml @ 50 mls/hr IV.SIG Q2H [facility] Rx#:[id number] Output: Urine Amount (Catheter) 2600 / 2600 1949 / 1949 Indwelling Urethral Catheter 2600 / 2600 1949 / 1949 Chest Tube Drainage 100 / 100 45 / 45 Right 100 / 100 45 / 45 Other: Date of Last Bowel Movement 07/18/18 07/19/18 07/19/18 - Constitutional no acute distress - Routine HEENT Exam Head: Present: normocephalic ENT: Present: mucous membranes moist Comments: Chronic dilated left pupil - Routine Neck Exam Present: supple - Routine Respiratory Exam Present: decreased breath sounds - Routine Cardiovascular Exam Present: S1, S2. Absent: murmur, gallop, rubs - Routine Abdominal Exam Present: normoactive bowel sounds - Routine Extremities Exam Present: pulses intact, normal capillary refill. Absent: cyanosis, clubbing, edema - Routine Skin Exam Present: intact - Routine Neurological Exam lethargic - Detailed Neurological Exam: Coma Scale Eye Opening: To sound Verbal Response: None Motor Response: None [place] Coma Scale Total: 5 - Routine Psychiatric Exam Present: unable to assess - Urinary Catheter Management Indwelling Urethral Catheter Cath placed during this visit: yes, but has since been removed by the nurse Reason for continuing: Decision to DC catheter Insertion date: 07/12/18 Insertion time: 07:45 Removal date: 07/19/18 Removal time: 10:45 Condom Cath placed during this visit: yes Reason for continuing: Not indwelling catheter Insertion date: 07/19/18 Insertion time: 10:50 Results 07/15/18 09:04 07/19/18 13:01 Comprehensive Metabolic Panel 07/18/18 07/18/18 07/19/18 Range/Units 05:35 22:08 05:30 Sodium 149 H 158 H* (136-145) meq/L Potassium 2.4 L* 2.9 L* 3.4 L (3.5-5.1) meq/L Chloride 106 112 H (98-107) meq/L Carbon Dioxide 32.4 H 35.5 H (21.0-32.0) meq/L BUN 72 H 74 H (7-18) mg/dL Creatinine 2.61 H 2.24 H (0.60-1.30) mg/dL Calcium 8.8 9.1 (8.5-10.1) mg/dL Albumin 3.1 L 3.2 L (3.4-5.0) g/dL 07/19/18 Range/Units 13:01 Sodium (136-145) meq/L Potassium 2.8 L* (3.5-5.1) meq/L Chloride (98-107) meq/L Carbon Dioxide (21.0-32.0) meq/L BUN (7-18) mg/dL Creatinine (0.60-1.30) mg/dL Calcium (8.5-10.1) mg/dL Albumin (3.4-5.0) g/dL Intake and Output 12/14/18 12/15/18 12/15/18 22:59 06:59 14:59 Intake Total 100 / 100 250 / 250 1150 / 1150 Output Total 850 / 850 1994 Balance -750 / -750 -1745 / -1745 1150 / 1150 Intake: IV 100 / 100 250 / 250 1150 / 1150 NS Inj 1,000 ML @ 30 mls/hr IV. 1000 / 1000 CONT .Q24H [facility] Rx#:[id number] Cubicin Inj 400 MG In NS Inj 100 / 100 100 ML @ 200 mls/hr IV.SIG Q48H [facility] Rx#:[id number] Zosyn 2.25 GM Premix 50 ML @ 100 / 100 50 / 50 50 / 50 100 mls/hr IV.SIG Q8H [facility] Rx#: [id number] KCl 20 mEq Premix Inj 20 meq In 200 / 200 100 ml @ 50 mls/hr IV.SIG Q2H [facility] Rx#:[id number] Output: Urine Amount (Catheter) 750 / 750 1949 / 1949 Indwelling Urethral Catheter 750 / 750 1949 / 1949 Chest Tube Drainage 100 / 100 45 / 45 Right 100 / 100 45 / 45 Other: Date of Last Bowel Movement 07/18/18 07/19/18 07/19/18 Weight 62.3 kg - Imaging and Cardiology Imaging: Impressions Chest X-Ray 07/17/18 00:00 CONCLUSION: Persistent patchy airspace disease No evidence of pneumothorax Endotracheal tube and right chest tube are in stable position. Assessment and Plan - Assessment (1) Chest pain Code(s): R07.9 - Chest pain, unspecified Status: Acute (2) Elevated troponin level Code(s): R74.8 - Abnormal levels of other serum enzymes Status: Acute (3) Liver failure Code(s): K72.90 - Hepatic failure, unspecified without coma Status: Acute (4) Hyperbilirubinemia Code(s): E80.6 - Other disorders of bilirubin metabolism Status: Acute - Plan Patient was extubated yesterday, remains on NC. MS still altered. Patient has decreased potassium levels, recommend potassium replacement. We will continue conservative management for his recent NSTEMI. We will continue to monitor patient during hospitalization. The patient was seen and evaluated by Dr. Gonzalez who participated in care, management and decision making. - Attending Attestation Patient seen and examined. I reviewed and agree with the evaluation and plan as presented. Continue post RI care. Aggressive risk factor modification. Increase activity, PT.
--- NOTE | 2018-07-19 14:50 | P.PNCC ---
Subjective Subjective Remarks/Hospital Course: 63-year-old male. Admission 07/09/2018. Date of consultation 2017. Past medical history includes ongoing alcoholism. Urine tox screen on admission positive for cocaine and opiates. Patient originally fell from a single bed about 1 week ago. He did not seek treatment for his swollen left elbow. He is initially diagnosed here with a left olecranon fracture/ nondisplaced. Seen by Dr. Blanco recommended splint/immobilization. Follow-up outpatient with x-rays in 2 weeks. He was treated with alcoholism for on the [facility] protocol receiving multivitamin, folate and thiamine. During admission, patient had multiple complaints including right upper quadrant pain. Patient has CT his abdomen/pelvis revealed hepatic steatosis, pericholecystic fluid with no ductal dilatation. Ultrasound showed pericholecystic 6 with negative Lundy sign. Nuclear medicine scan revealed no activity in the intrahepatic ducts compatible ducts or small bowel. Likely slightly disease. Patient was evaluated by gastroenterology for this issue. BOBBY, AMA, ASMA, SSA a and B, Ronquillo, scleroderma and double-stranded DNA all pending. Negative hepatitis panel. Noted patient had angiogram of the abdomen which revealed no focal stenosis of the SMA, MIC or celiac. Patient elevated troponin. Was seen by Dr. chaudhry. Echocardiogram revealed EF 55-6%. PA P 43 mmHg. Trace to mild TR. Possibly demand ischemia due to sepsis. Was on aspirin. Did receive/placed on heparin drip. This is currently on hold due to coagulopathic state. Patient has gram-positive cocci in blood. Infectious disease has been counseled. Currently on vancomycin for comfort.) I repeated blood cultures, sputum and urine culture today. Patient is 80% right carotid artery stenosis. Followed by Dr. Bassett. Patient was transferred to ICU with persistent hypotension increasing lactic acidosis in the setting of acute liver injury. Worsening renal function. Patient has received 2.5 L normal saline the present time his blood pressure appears stable. Patient is currently denying abdominal pain. SUBJECTIVE: 07/11: Currently resting in bed and asking when he can go home. Creatinine is elevated 2.3. Will bolus with additional fluid. Echocardiogram results noted. 07/12: Negligible urine output overnight. Culver placed. Short of breath this morning. Not requiring pressors 07/13: Patient in respiratory distress tachypneic breathing 40 breaths/min. Intermittently desaturating to low 80s on nasal cannula. Very lethargic hardly protecting airway. Emergently intubated and placed on mechanical ventilation. Currently on Bumex infusion urine output improving. However BUN/creatinine was 49/4.53. Chest x-ray today shows extensive right-sided infiltrate. Chest x- ray on 07/12 shows extensive right-sided lower lobe infiltrate but was clear on 07/10/2018. Indicates probable aspiration pneumonia 07/14: Intubated and placed on mechanical ventilation yesterday for severe hypoxemic respiratory failure. After intubation right pigtail chest tube placed for large effusion. Last 24 hours 1.4 L drained. Currently on broad- spectrum antibiotics. Remains septic renal function stable creatinine 4.57. Remains on Bumex drip urine output 2.4 L in 24 hours 07/15: Intubated off sedation waking up moving extremities. Chest x-ray and bedside ultrasound shows moderate to large left pleural effusion. Remains on Bumex drip 2.8 L urine output in 24 hours. Plan for left thoracentesis today. Bilirubin noted to be finding 7.5 today probably cholestasis. Previous HIDA scan showed questionable common bile duct obstruction versus hepatobiliary disease. Reconsult GI for further evaluation may need MRCP 07/16: Remains on mechanical ventilation. Acute kidney injury persists. 07/17: Respiratory effort during spontaneous breathing trials has improved modestly from yesterday. He continues to respond to loop diuretic infusion. Opens eyes and tracks today. 07/18: Renal function continues to improve and fluid removal going better. Gas exchange better today and respiratory effort on spontaneous breathing trials has improved. We will try to extubate today and begin further rehab. 07/19: Extubated yesterday and protects airway satisfactorily. Hypokalemia persists, will replace aggressively today. Objective Vital Signs / I&O: Vital Signs 07/18/18 15:00 07/18/18 16:00 07/18/18 17:00 Temperature 98.5 F Pulse Rate 77 73 71 Respiratory Rate 28 H 29 H 22 Blood Pressure 154/67 H 169/76 H 143/63 H Pulse Oximetry 99 99 97 07/18/18 18:00 07/18/18 19:00 07/18/18 20:00 Temperature 97.4 F L Pulse Rate 74 71 68 Respiratory Rate 20 27 H 23 Blood Pressure 165/70 H 157/76 H Pulse Oximetry 98 100 99 12/14/18 20:41 07/18/18 21:00 07/18/18 22:00 Temperature Pulse Rate 68 71 Respiratory Rate 21 25 H Blood Pressure 149/66 H 166/75 H Pulse Oximetry 98 98 91 L 07/18/18 23:00 07/19/18 00:00 07/19/18 01:00 Temperature 97.9 F Pulse Rate 74 74 74 Respiratory Rate 26 H 25 H 22 Blood Pressure 162/74 H 163/98 H 166/83 H Pulse Oximetry 98 95 99 07/19/18 02:00 07/19/18 03:00 07/19/18 04:00 Temperature 97.9 F Pulse Rate 71 72 73 Respiratory Rate 21 22 26 H Blood Pressure 166/83 H 164/71 H 182/81 H Pulse Oximetry 100 100 96 07/19/18 05:00 07/19/18 06:00 07/19/18 07:00 Temperature 97.7 F Pulse Rate 74 72 68 Respiratory Rate 29 H 27 H 25 H Blood Pressure 171/81 H 172/77 H 151/68 H Pulse Oximetry 97 97 97 07/19/18 07:57 07/19/18 08:00 07/19/18 09:00 Temperature 97.7 F Pulse Rate 70 69 68 Respiratory Rate 32 H 33 H Blood Pressure 144/68 H 137/65 Pulse Oximetry 93 L 98 07/19/18 10:00 07/19/18 11:00 07/19/18 12:00 Temperature Pulse Rate 75 68 67 Respiratory Rate 37 H 27 H 33 H Blood Pressure 145/70 H 133/63 151/68 H Pulse Oximetry 96 95 93 L 07/19/18 13:00 07/19/18 13:18 Temperature Pulse Rate 70 Respiratory Rate 30 H 24 Blood Pressure 143/78 H Pulse Oximetry 97 Intake & Output 07/18/18 07/19/18 07/19/18 18:59 06:59 18:59 Intake Total 1150 / 1150 300 / 300 1150 / 1150 Output Total 2700 / 2700 1994 Balance -1550 / -1550 -1695 / -1695 1150 / 1150 Weight 62.3 kg Intake: IV 1150 / 1150 300 / 300 1150 / 1150 NS Inj 1,000 ML @ 30 mls/hr IV. 600 / 600 1000 / 1000 CONT .Q24H [facility] Rx#:[id number] Cubicin Inj 400 MG In NS Inj 100 / 100 100 ML @ 200 mls/hr IV.SIG Q48H [facility] Rx#:[id number] Zosyn 2.25 GM Premix 50 ML @ 50 / 50 100 / 100 50 / 50 100 mls/hr IV.SIG Q8H [facility] Rx#: [id number] KCl 20 mEq Premix Inj 20 meq In 300 / 300 200 / 200 100 ml @ 50 mls/hr IV.SIG Q2H [facility] Rx#:[id number] Output: Urine Amount (Catheter) 2600 / 2600 1949 Indwelling Urethral Catheter 2600 / 2600 1949 Chest Tube Drainage 100 / 100 45 / 45 Right 100 / 100 45 / 45 Other: Date of Last Bowel Movement 07/18/18 07/19/18 07/19/18 Result Diagrams: 07/15/18 09:04 07/19/18 13:01 Objective Remarks: GENERAL: Chronically ill appearing 63-year-old male. SKIN: Warm and dry. HEAD: Atraumatic. Normocephalic. EYES: Pupils are unequal right 2 mm reactive left is 5 mm nonreactive ENT: Extubated, airway widely patent, no obstructive noises. NECK: Trachea midline. Supple. CARDIOVASCULAR: Regular rate and rhythm. S1, S2 no S4. RESPIRATORY: Acceptable excursions with spontaneous breathing. Generally clear breath sounds. Right chest tube in place. GASTROINTESTINAL: Abdomen soft, non-tender, nondistended. Active bowel sounds. MUSCULOSKELETAL: Extremities well perfused. Left upper extremity currently in splint wrapped in Armen bandage. Fingers below warm NEUROLOGICAL: He follows commands on bilateral upper extremities and withdraws bilateral lower extremity. Pupils are unequal right 2 mm reactive left is 5 mm nonreactive Assessment and Plan - Assessment and Plan Plan: Neuro/Psych: Acute metabolic encephalopathy Anisocoria EtOH abuse Recent cocaine/opiate abuse -inhaled. Denies intravenous MVI/ folate. Patient states he inhaled cocaine 4-5 days prior to admission. Denies IV drug use. Discontinued acetaminophen and related products with elevated transaminases Stat CT of the head for unequal pupil, negative for acute findings Encephalopathy improved enough to allow extubation 07/18. CV: Severe sepsis Lactic acidosis Elevated troponin likely demand ischemia Right carotid artery stenosis Elevated CPK Cardiology Dr. chaudhry. No intervention planned 2D echocardiogram revealed Normal left ventricular size. Wall thickness is normal. The left ventricular systolic function is normal with an estimated ejection fraction in the range of 55-60%. Not on aspirin or heparin at this time due to thrombocytopenia Followed by vascular surgery for right carotid artery stenosis 80%. Resp: Acute hypoxemic respiratory failure Right lower lobe pneumonia with effusion Emphysematous type changes on CT neck Hyperammonemia Hypoalbuminemia Tobacco abuse Emergently intubated and placed on mechanical ventilation. PRVC/AC 07/13/2018 Incentive spirometry. Start decreasing pressure support today 07/17, aim for extubation today GI: Elevated transaminases Elevated total bilirubin Poss acalc jody Hypoalbuminemia Noted CT abdomen/pelvis revealed possible early cholecystitis. Pericholecystic fluid. Ultrasound revealed negative Lundy sign. Nuclear medicine scan revealed no activity in the intrahepatic ductal compound bile duct or small bowel. 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 Patent MIC, celiac. Evaluated by gastroenterology. Hepatitis panel negative. Pending ceruloplasmin, BOBBY, AMA, ASMA, SSA AMB, anti-Ronquillo, RP, scleroderma, double-stranded DNA, hemochromatosis Currently on lactulose 30 cc 3 times daily for elevated ammonia. Continue tube feeds with Nepro. Endo: Sliding scale insulin with Accu-Cheks to maintain euglycemia/every 6 hours low regimen TSH 1. Cortisol 25 Glucose control acceptable Renal: Acute kidney failure Avoid nephrotoxic medication. Discontinued vancomycin 07/11 Replace potassium again today. Heme: Macrocytic anemia Thrombocytopenia Coagulopathic state Follow-up on PT/INR/PTT and fibrinogen No indication for transfusion of blood products at this time ID: MRSA bacteremia Septic shock Right lower lobe pneumonia/aspiration 2D transthoracic echocardiogram revealed no signs of endocarditis. Infectious disease following Currently on daptomycin and Zosyn. Zyvox added for gram-positive coverage for presumed pneumonia Pleural fluid studies have no evidence of infection MSK: Left posterior olecranon fracture Followed by Dr. Blanco, splint immobilized. Follow-up in 2 weeks with x-rays CT left elbow today FEN: Replace electrolytes as clinically indicated Access -Utilize peripheral IV. Central line if indicated Prophylaxis -GI -pantoprazole -DVT-SCD/hold off chemical DVT prophylaxis due to severe thrombocytopenia Overall impression: Patient remains ill. Care complicated by acute renal failure and sepsis. He has tolerated extubation and protects his airway adequately.
[2018-07-20] MEDS: Oral Hygiene Kit OROPHARYNG SCH ×4 (00:35→16:04)
[2018-07-20] MEDS: Piperacil/Tazo 2.25 GM Premix 50 ML IV.SIG SCH ×2 (03:17→11:12)
[2018-07-20] MEDS: Morphine Inj 4 MG/ML Vial IV.PUSH PRN ×3 (04:25→13:15)
--- NOTE | 2018-07-20 04:54 | XR ---
EXAM DATE: 07/20/2018 4:15 AM EST AGE/SEX: 63 years / Male INDICATIONS: Right chest tube removal. CLINICAL DATA: This is the patient's subsequent encounter. Patient reports that signs and symptoms h ave been present for 1 week and indicates a pain score of Nonresponsive. MEDICAL/SURGICAL HISTORY: Cholelithiases. Non-responsive. [place] [facility] [place]17/[place]. . FINDINGS: The heart size is normal. There is diffuse increased interstitial markings being worse at the bases. There appears to be some further alveolar density at the left base with silhouetting the medial left hemidiaphragm. The aeration at the left base appears to be improved. CONCLUSION: Underlying interstitial disease. Left base atelectasis or consolidation which appears to be improving. Electronically signed by: Calvin Apple MD Board Certified Radiologist 07/20/2018 4:52 AM EST
[2018-07-20 06:09] LABS: INR 1.8 Ratio
[2018-07-20] MEDS: hydrALAZINE HCl Inj 20 MG/ML Vial IV.PUSH PRN ×3 (06:20→14:22)
[2018-07-20 06:25] LABS: Albumin 3.1 g/dL (3.4-5.0); Calcium 8.9 mg/dL (8.5-10.1); Carbon Dioxide 36.4 meq/L (21.0-32.0); Phosphorus 2.8 mg/dL (2.5-4.9); Potassium 3.2 meq/L (3.5-5.1); Total Protein 7.2 g/dL (6.4-8.2)
--- NOTE | 2018-07-20 07:10 | P.PNCC ---
Subjective Subjective Remarks/Hospital Course: 63-year-old male. Admission 07/09/2018. Date of consultation 2017. Past medical history includes ongoing alcoholism. Urine tox screen on admission positive for cocaine and opiates. Patient originally fell from a single bed about 1 week ago. He did not seek treatment for his swollen left elbow. He is initially diagnosed here with a left olecranon fracture/ nondisplaced. Seen by Dr. Blanco recommended splint/immobilization. Follow-up outpatient with x-rays in 2 weeks. He was treated with alcoholism for on the [facility] protocol receiving multivitamin, folate and thiamine. During admission, patient had multiple complaints including right upper quadrant pain. Patient has CT his abdomen/pelvis revealed hepatic steatosis, pericholecystic fluid with no ductal dilatation. Ultrasound showed pericholecystic 6 with negative Lundy sign. Nuclear medicine scan revealed no activity in the intrahepatic ducts compatible ducts or small bowel. Likely slightly disease. Patient was evaluated by gastroenterology for this issue. BOBBY, AMA, ASMA, SSA a and B, Ronquillo, scleroderma and double-stranded DNA all pending. Negative hepatitis panel. Noted patient had angiogram of the abdomen which revealed no focal stenosis of the SMA, MIC or celiac. Patient elevated troponin. Was seen by Dr. chaudhry. Echocardiogram revealed EF 55-6%. PA P 43 mmHg. Trace to mild TR. Possibly demand ischemia due to sepsis. Was on aspirin. Did receive/placed on heparin drip. This is currently on hold due to coagulopathic state. Patient has gram-positive cocci in blood. Infectious disease has been counseled. Currently on vancomycin for comfort.) I repeated blood cultures, sputum and urine culture today. Patient is 80% right carotid artery stenosis. Followed by Dr. Bassett. Patient was transferred to ICU with persistent hypotension increasing lactic acidosis in the setting of acute liver injury. Worsening renal function. Patient has received 2.5 L normal saline the present time his blood pressure appears stable. Patient is currently denying abdominal pain. SUBJECTIVE: 07/11: Currently resting in bed and asking when he can go home. Creatinine is elevated 2.3. Will bolus with additional fluid. Echocardiogram results noted. 07/12: Negligible urine output overnight. Culver placed. Short of breath this morning. Not requiring pressors 07/13: Patient in respiratory distress tachypneic breathing 40 breaths/min. Intermittently desaturating to low 80s on nasal cannula. Very lethargic hardly protecting airway. Emergently intubated and placed on mechanical ventilation. Currently on Bumex infusion urine output improving. However BUN/creatinine was 49/4.53. Chest x-ray today shows extensive right-sided infiltrate. Chest x- ray on 07/12 shows extensive right-sided lower lobe infiltrate but was clear on 07/10/2018. Indicates probable aspiration pneumonia 07/14: Intubated and placed on mechanical ventilation yesterday for severe hypoxemic respiratory failure. After intubation right pigtail chest tube placed for large effusion. Last 24 hours 1.4 L drained. Currently on broad- spectrum antibiotics. Remains septic renal function stable creatinine 4.57. Remains on Bumex drip urine output 2.4 L in 24 hours 07/15: Intubated off sedation waking up moving extremities. Chest x-ray and bedside ultrasound shows moderate to large left pleural effusion. Remains on Bumex drip 2.8 L urine output in 24 hours. Plan for left thoracentesis today. Bilirubin noted to be finding 7.5 today probably cholestasis. Previous HIDA scan showed questionable common bile duct obstruction versus hepatobiliary disease. Reconsult GI for further evaluation may need MRCP 07/16: Remains on mechanical ventilation. Acute kidney injury persists. 07/17: Respiratory effort during spontaneous breathing trials has improved modestly from yesterday. He continues to respond to loop diuretic infusion. Opens eyes and tracks today. 07/18: Renal function continues to improve and fluid removal going better. Gas exchange better today and respiratory effort on spontaneous breathing trials has improved. We will try to extubate today and begin further rehab. 07/19: Extubated yesterday and protects airway satisfactorily. Hypokalemia persists, will replace aggressively today. Worsening jaundice. 07/20: He appears to be in free water deficit, will convert intravenous fluid to D5 water. Rising bilirubin following an episode of shock liver on arrival, largely direct component. This appears to be a product of primary liver dysfunction and will follow ammonia. Check right upper quadrant ultrasound if not done recently. Recent hepatitis screen negative. Objective Vital Signs / I&O: Vital Signs 07/19/18 07:57 07/19/18 08:00 07/19/18 09:00 Temperature 97.7 F Pulse Rate 70 69 68 Respiratory Rate 32 H 33 H Blood Pressure 144/68 H 137/65 Pulse Oximetry 93 L 98 07/19/18 10:00 07/19/18 11:00 07/19/18 12:00 Temperature Pulse Rate 75 68 67 Respiratory Rate 37 H 27 H 33 H Blood Pressure 145/70 H 133/63 151/68 H Pulse Oximetry 96 95 93 L 07/19/18 13:00 07/19/18 13:18 07/19/18 14:00 Temperature Pulse Rate 70 65 Respiratory Rate 30 H 24 44 H Blood Pressure 143/78 H 148/71 H Pulse Oximetry 97 98 07/19/18 15:00 07/19/18 16:00 07/19/18 17:00 Temperature Pulse Rate 66 64 68 Respiratory Rate 113 H 89 H 111 H Blood Pressure 147/74 H 153/74 H 139/69 Pulse Oximetry 97 99 95 07/19/18 18:00 07/19/18 19:00 07/19/18 20:00 Temperature 97.5 F L Pulse Rate 69 68 67 Respiratory Rate 81 H 77 H 103 H Blood Pressure 152/73 H 139/66 144/73 H Pulse Oximetry 97 97 95 07/19/18 21:00 07/19/18 22:00 07/19/18 23:00 Temperature Pulse Rate 68 67 67 Respiratory Rate 20 107 H 24 Blood Pressure 150/73 H 135/65 149/73 H Pulse Oximetry 94 L 95 96 07/20/18 00:00 07/20/18 01:00 07/20/18 02:00 Temperature 98.2 F Pulse Rate 68 65 68 Respiratory Rate 24 20 20 Blood Pressure 153/65 H 176/77 H 149/67 H Pulse Oximetry 97 99 92 L 07/20/18 03:00 07/20/18 04:00 07/20/18 05:00 Temperature 98.0 F Pulse Rate 69 67 65 Respiratory Rate 20 20 20 Blood Pressure 169/75 H 167/76 H 153/71 H Pulse Oximetry 100 100 93 L 07/20/18 06:00 Temperature Pulse Rate 75 Respiratory Rate 20 Blood Pressure 174/81 H Pulse Oximetry 97 Intake & Output 07/19/18 07/20/18 07/20/18 18:59 06:59 18:59 Intake Total 1450 / 1450 300 / 300 Output Total 1350 / 1350 750 / 750 Balance 100 / 100 -450 / -450 Weight 61.7 kg Intake: IV 1450 / 1450 300 / 300 NS Inj 1,000 ML @ 30 mls/hr IV. 1100 / 1100 CONT .Q24H [facility] Rx#:[id number] Cubicin Inj 400 MG In NS Inj 100 / 100 100 ML @ 200 mls/hr IV.SIG Q48H [facility] Rx#:[id number] Zosyn 2.25 GM Premix 50 ML @ 50 / 50 100 / 100 100 mls/hr IV.SIG Q8H [facility] Rx#: [id number] KCl 20 mEq Premix Inj 20 meq In 200 / 200 200 / 200 100 ml @ 50 mls/hr IV.SIG Q2H [facility] Rx#:[id number] Output: Urine Amount (Catheter) 1350 / 1350 750 / 750 Condom 1350 / 1350 750 / 750 Chest Tube Drainage 0 / 0 Right 0 / 0 Other: Date of Last Bowel Movement 07/19/18 07/19/18 Result Diagrams: 07/15/18 09:04 07/20/18 05:20 Objective Remarks: GENERAL: Chronically ill and jaundiced appearing 63-year-old male. SKIN: Warm and dry. HEAD: Atraumatic. Normocephalic. EYES: Pupils are unequal right 2 mm reactive left is 5 mm nonreactive ENT: Extubated, airway widely patent, no obstructive noises. NECK: Trachea midline. Supple. CARDIOVASCULAR: Regular rate and rhythm. S1, S2 no S4. RESPIRATORY: Shallow excursions with spontaneous breathing. Generally clear breath sounds. Right chest tube removed, chest x-ray good. GASTROINTESTINAL: Abdomen soft, non-tender, nondistended. Active bowel sounds. No guarding. MUSCULOSKELETAL: Extremities well perfused. Left upper extremity currently in splint wrapped in Armen bandage. Fingers below warm NEUROLOGICAL: He follows commands slowly on bilateral upper extremities and withdraws bilateral lower extremity. Pupils are unequal right 2 mm reactive left is 5 mm nonreactive Assessment and Plan - Assessment and Plan Plan: Neuro/Psych: Acute metabolic encephalopathy Anisocoria EtOH abuse Recent cocaine/opiate abuse -inhaled. Denies intravenous MVI/ folate. Patient states he inhaled cocaine 4-5 days prior to admission. Denies IV drug use. Discontinued acetaminophen and related products with elevated transaminases Stat CT of the head for unequal pupil, negative for acute findings Encephalopathy improved enough to allow extubation 07/18. Worsening encephalopathy now, check ammonia level CV: Severe sepsis Lactic acidosis Elevated troponin likely demand ischemia Right carotid artery stenosis Elevated CPK Cardiology Dr. chaudhry. No intervention planned 2D echocardiogram revealed Normal left ventricular size. Wall thickness is normal. The left ventricular systolic function is normal with an estimated ejection fraction in the range of 55-60%. Not on aspirin or heparin at this time due to thrombocytopenia Followed by vascular surgery for right carotid artery stenosis 80%. Resp: Acute hypoxemic respiratory failure Right lower lobe pneumonia with effusion Emphysematous type changes on CT neck Hyperammonemia Hypoalbuminemia Tobacco abuse Emergently intubated and placed on mechanical ventilation. PRVC/AC 07/13/2018 Incentive spirometry. Extubated 07/18 Chest tube removed 07/19, chest x-ray after with the right lung well expanded. GI: Elevated transaminases Elevated total bilirubin Poss acalc jody Hypoalbuminemia Noted CT abdomen/pelvis revealed possible early cholecystitis. Pericholecystic fluid. Ultrasound revealed negative Lundy sign. Nuclear medicine scan revealed no activity in the intrahepatic ductal compound bile duct or small bowel. 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 Patent MIC, celiac. Evaluated by gastroenterology. Hepatitis panel negative. Pending ceruloplasmin, BOBBY, AMA, ASMA, SSA AMB, anti-Ronquillo, RP, scleroderma, double-stranded DNA, hemochromatosis Currently on lactulose 30 cc 3 times daily for elevated ammonia. Continue tube feeds with Nepro. Check ammonia level. Endo: Sliding scale insulin with Accu-Cheks to maintain euglycemia/every 6 hours low regimen TSH 1. Cortisol 25 Glucose control acceptable Renal: Acute kidney failure Avoid nephrotoxic medication. Discontinued vancomycin 07/11 Replace potassium again today. Convert fluid to D5 water with KCl 10 mEq/L Heme: Macrocytic anemia Thrombocytopenia Coagulopathic state Follow-up on PT/INR/PTT and fibrinogen No indication for transfusion of blood products at this time INR prolonged again ID: MRSA bacteremia Septic shock Right lower lobe pneumonia/aspiration 2D transthoracic echocardiogram revealed no signs of endocarditis. Infectious disease following Currently on daptomycin and Zosyn. Zyvox added for gram-positive coverage for presumed pneumonia Pleural fluid studies have no evidence of infection MSK: Left posterior olecranon fracture Followed by Dr. Blanco, splint immobilized. Follow-up in 2 weeks with x-rays CT left elbow today FEN: Replace electrolytes as clinically indicated Access -Utilize peripheral IV. Central line if indicated Prophylaxis -GI -pantoprazole -DVT-SCD/hold off chemical DVT prophylaxis due to severe thrombocytopenia, prolonged INR Overall impression: Patient remains ill and quite lethargic. Care complicated by hepatic dysfunction, acute renal failure and sepsis. He has tolerated extubation and protects his airway adequately.
[2018-07-20] MEDS: Potassium Chloride Inj 10 MEQ in Dextrose 5% in Water Inj 1,000 ML IV.CONT SCH ×4 (07:57→16:11)
[2018-07-20] MEDS: Chlorhexidine 0.12% Oral Kit 15 ML UDC OROPHARYNG SCH ×2 (07:58→20:10)
[2018-07-20] MEDS: Pantoprazole Inj 40 MG Vial IV.PUSH SCH (08:00)
[2018-07-20] MEDS: Mupirocin 2% Nasal Oint Topical Syringe EACH NARE SCH ×2 (08:01→20:10)
--- NOTE | 2018-07-20 12:43 | P.PNNP ---
Subjective Interval history: Awake and restless in bed. Creatinine stable at 1.82, sodium level increased at 162. <ConradoteeEdel - Last Filed: 07/20/18 12:40> Physical Exam Vital signs: Vital Signs 07/19/18 13:00 07/19/18 13:18 07/19/18 14:00 Temperature Pulse Rate 70 65 Respiratory Rate 30 H 24 44 H Blood Pressure 143/78 H 148/71 H Pulse Oximetry 97 98 07/19/18 15:00 07/19/18 16:00 07/19/18 17:00 Temperature Pulse Rate 66 64 68 Respiratory Rate 113 H 89 H 111 H Blood Pressure 147/74 H 153/74 H 139/69 Pulse Oximetry 97 99 95 07/19/18 18:00 07/19/18 19:00 07/19/18 20:00 Temperature 97.5 F L Pulse Rate 69 68 67 Respiratory Rate 81 H 77 H 103 H Blood Pressure 152/73 H 139/66 144/73 H Pulse Oximetry 97 97 95 07/19/18 21:00 07/19/18 22:00 07/19/18 23:00 Temperature Pulse Rate 68 67 67 Respiratory Rate 20 107 H 24 Blood Pressure 150/73 H 135/65 149/73 H Pulse Oximetry 94 L 95 96 07/20/18 00:00 07/20/18 01:00 07/20/18 02:00 Temperature 98.2 F Pulse Rate 68 65 68 Respiratory Rate 24 20 20 Blood Pressure 153/65 H 176/77 H 149/67 H Pulse Oximetry 97 99 92 L 07/20/18 03:00 07/20/18 04:00 07/20/18 05:00 Temperature 98.0 F Pulse Rate 69 67 65 Respiratory Rate 20 20 20 Blood Pressure 169/75 H 167/76 H 153/71 H Pulse Oximetry 100 100 93 L 07/20/18 06:00 07/20/18 07:00 07/20/18 08:00 Temperature 98.3 F Pulse Rate 75 74 80 Respiratory Rate 20 113 H 114 H Blood Pressure 174/81 H 161/72 H 156/68 H Pulse Oximetry 97 91 L 91 L Intake & Output 07/19/18 07/20/18 07/20/18 18:59 06:59 18:59 Intake Total 1450 / 1450 300 / 300 50 / 50 Output Total 1350 / 1350 750 / 750 Balance 100 / 100 -450 / -450 50 / 50 Weight 61.7 kg Intake: IV 1450 / 1450 300 / 300 50 / 50 NS Inj 1,000 ML @ 30 mls/hr IV. 1100 / 1100 CONT .Q24H [facility] Rx#:[id number] Cubicin Inj 400 MG In NS Inj 100 / 100 100 ML @ 200 mls/hr IV.SIG Q48H [facility] Rx#:[id number] Zosyn 2.25 GM Premix 50 ML @ 50 / 50 100 / 100 50 / 50 100 mls/hr IV.SIG Q8H [facility] Rx#: [id number] KCl 20 mEq Premix Inj 20 meq In 200 / 200 200 / 200 100 ml @ 50 mls/hr IV.SIG Q2H [facility] Rx#:[id number] Output: Urine Amount (Catheter) 1350 / 1350 750 / 750 Condom 1350 / 1350 750 / 750 Chest Tube Drainage 0 / 0 Right 0 / 0 Other: Date of Last Bowel Movement 07/19/18 07/19/18 07/19/18 Narrative: GENERAL: Awake, restless, NAD SKIN: Warm and dry. NECK: Supple, trachea midline. No JVD. CARDIOVASCULAR: Regular rate and rhythm without murmurs, gallops, or rubs. RESPIRATORY: Breath sounds equal right-sided chest tube. GASTROINTESTINAL: Abdomen soft, non-tender, nondistended. GENITOURINARY: Condom catheter, light yellow urine. MUSCULOSKELETAL: No cyanosis, no edema. . - Urinary Catheter Management Indwelling Urethral Catheter Cath placed during this visit: yes, but has since been removed by the nurse Reason for continuing: Decision to DC catheter Insertion date: 07/12/18 Insertion time: 07:45 Removal date: 07/19/18 Removal time: 10:45 Condom Cath placed during this visit: yes Reason for continuing: Not indwelling catheter Insertion date: 07/19/18 Insertion time: 10:50 <Edel Lantigua - Last Filed: 07/20/18 12:40> Vital signs: Vital Signs 07/19/18 22:00 07/19/18 23:00 07/20/18 00:00 Temperature 98.2 F Pulse Rate 67 67 68 Respiratory Rate 107 H 24 24 Blood Pressure 135/65 149/73 H 153/65 H Pulse Oximetry 95 96 97 07/20/18 01:00 07/20/18 02:00 07/20/18 03:00 Temperature Pulse Rate 65 68 69 Respiratory Rate 20 20 20 Blood Pressure 176/77 H 149/67 H 169/75 H Pulse Oximetry 99 92 L 100 07/20/18 04:00 07/20/18 05:00 07/20/18 06:00 Temperature 98.0 F Pulse Rate 67 65 75 Respiratory Rate 20 20 20 Blood Pressure 167/76 H 153/71 H 174/81 H Pulse Oximetry 100 93 L 97 07/20/18 07:00 07/20/18 08:00 07/20/18 09:00 Temperature 98.3 F Pulse Rate 74 80 76 Respiratory Rate 113 H 114 H 121 H Blood Pressure 161/72 H 156/68 H 146/63 H Pulse Oximetry 91 L 91 L 07/20/18 10:00 07/20/18 11:00 07/20/18 11:27 Temperature Pulse Rate 75 72 74 Respiratory Rate 104 H 24 22 Blood Pressure 163/72 H 176/81 H 172/70 H Pulse Oximetry 94 L 100 100 07/20/18 12:00 07/20/18 13:00 07/20/18 13:19 Temperature 98.3 F Pulse Rate 75 74 Respiratory Rate 18 18 Blood Pressure 169/107 H 163/72 H 161/70 H Pulse Oximetry 98 98 07/20/18 13:43 07/20/18 14:00 07/20/18 14:19 Temperature Pulse Rate 70 72 68 Respiratory Rate 15 16 14 Blood Pressure 160/73 H 172/78 H 164/74 H Pulse Oximetry 100 99 99 07/20/18 14:25 07/20/18 15:00 07/20/18 16:00 Temperature Pulse Rate 68 77 74 Respiratory Rate 17 17 15 Blood Pressure 164/74 H 165/72 H 173/75 H Pulse Oximetry 99 98 98 07/20/18 17:00 07/20/18 18:00 Temperature 98.4 F 98.3 F Pulse Rate 73 71 Respiratory Rate 15 16 Blood Pressure 168/70 H 164/70 H Pulse Oximetry 98 Intake & Output 07/20/18 07/20/18 07/21/18 06:59 18:59 06:59 Intake Total 300 / 300 2055 / 2055 Output Total 750 / 750 750 / 750 Balance -450 / -450 1305 / 1305 Weight 61.7 kg Intake: IV 300 / 300 2055 / 2055 D5W/1/4 NS Inj 1,000 ML @ 42 1000 / 1000 mls/hr IV.CONT .[id number] [facility] Rx# :[id number] KCl Inj 10 MEQ In D5W Inj 1,000 1005 / 1005 ML @ 125 mls/hr IV.CONT .Q8H3M [facility] Rx#:[id number] Zosyn 2.25 GM Premix 50 ML @ 100 / 100 50 / 50 100 mls/hr IV.SIG Q8H [facility] Rx#: [id number] KCl 20 mEq Premix Inj 20 meq In 200 / 200 100 ml @ 50 mls/hr IV.SIG Q2H [facility] Rx#:[id number] Oral 0 / 0 Output: Urine Amount (Catheter) 750 / 750 750 / 750 Condom 750 / 750 750 / 750 Other: Date of Last Bowel Movement 07/19/18 07/19/18 - Urinary Catheter Management Indwelling Urethral Catheter Cath placed during this visit: no Condom Cath placed during this visit: no <Jesus Rivas Q - Last Filed: 07/20/18 21:50> Assessment and Plan - Assessment (1) Acute kidney injury Code(s): N17.9 - Acute kidney failure, unspecified Status: Acute Plan: No previous history of chronic kidney disease. Has electrolyte disorder with high sodium and low K. Creatinine started to increase on the 6th NEERU possible ATN from sepsis or contrast Nephropathy. Creatinine started to increase about 48 hours after receiving contrast. Also possibility of AIN with vancomycin use however random level not elevated. Urine EOS negative. CT of abdomen shows kidney with in normal limits. Avoid Nephrotoxins. Follow the urine out put and BMP Creatinine continues to improve at 1.8, with good urinary output. Labs in AM (2) Hypernatremia Code(s): E87.0 - Hyperosmolality and hypernatremia Status: Acute Plan: Sodium level has increased at 162, on D5W (3) Respiratory failure Code(s): J96.90 - Respiratory failure, unspecified, unspecified whether with hypoxia or hypercapnia Status: Acute Plan: Extubated 07/18, on NC with good sats (4) Bacteremia Code(s): R78.81 - Bacteremia Status: Acute Plan: On antibiotics renal dose as appropriate <Edel Lantigua - Last Filed: 07/20/18 12:40> - Assessment (1) Acute kidney injury Code(s): N17.9 - Acute kidney failure, unspecified Status: Acute Plan: Patient seen and examined, agree with above. Creatinine is better, Sodium increase, started on D5W. (2) Hypernatremia Code(s): E87.0 - Hyperosmolality and hypernatremia Status: Acute (3) Respiratory failure Code(s): J96.90 - Respiratory failure, unspecified, unspecified whether with hypoxia or hypercapnia Status: Acute (4) Bacteremia Code(s): R78.81 - Bacteremia Status: Acute <Dina Rivas - Last Filed: 07/20/18 21:50>
--- NOTE | 2018-07-20 13:10 | P.PNID ---
Subjective Remarks: Patient is a 63-year-old male, presented to the hospital complaining of pain and swelling on his left elbow. He stated that he fell about a week ago but did not seek any treatment for his left elbow. He presented to the ED, and he was found to have a fracture of the olecranon on the left side. Patient also since admission has complained of some abdominal pain. He has known history of significant alcohol abuse. Imaging studies of the abdomen showed hepatic steatosis, pericholecystic fluid with no ductal dilatation. Ultrasound showed pericholecystic fluid with negative Lundy sign. He had a HIDA scan which showed no activity which could most likely be due to his liver disease. Patient also had a CTA as part of evaluation for his abdominal pain. That is okay. There were 2 blood cultures done in the ED, and they are now reported as growing MRSA. Patient has had some low-grade temps. Overnight he had persistent hypotension, and he was transferred to the ICU. Patient currently is on pressors. He is afebrile. He is still complaining of abdominal pain. He states he has chronic back pain which has not changed. He denies any shortness of breath. On this admission he was also found to have 80% right carotid artery stenosis, and vascular is following the patient. Echocardiograms not showing any obvious vegetation. His WBC is mildly elevated. He has an elevated lactic acid. His platelet count is low, fibrinogen is normal. Infectious disease consultation has been requested to assist with evaluation and treatment of his bacteremia. Notes reviewed D/W RN On nasal O2 Did not pass swallowing evaluation CT has been removed Afebrile Creatinine improving, good UO WBC normal Sputum ok CXR improving Antibiotics: Zosyn Cubicin Lines: Line sites with no e.o infection Past Medical History: Tobacco and ETOH abuse Drug screen (+) cocaine (denies IVDU), admits to smoking Allergies/Adverse Reactions: Allergies No Known Allergies Allergy (Verified 07/08/18 12:30) Objective Vital Signs 07/19/18 13:18 07/19/18 14:00 07/19/18 15:00 Temperature Pulse Rate 65 66 Respiratory Rate 24 44 H 113 H Blood Pressure 148/71 H 147/74 H Pulse Oximetry 98 97 07/19/18 16:00 07/19/18 17:00 07/19/18 18:00 Temperature Pulse Rate 64 68 69 Respiratory Rate 89 H 111 H 81 H Blood Pressure 153/74 H 139/69 152/73 H Pulse Oximetry 99 95 97 07/19/18 19:00 07/19/18 20:00 07/19/18 21:00 Temperature 97.5 F L Pulse Rate 68 67 68 Respiratory Rate 77 H 103 H 20 Blood Pressure 139/66 144/73 H 150/73 H Pulse Oximetry 97 95 94 L 07/19/18 22:00 07/19/18 23:00 07/20/18 00:00 Temperature 98.2 F Pulse Rate 67 67 68 Respiratory Rate 107 H 24 24 Blood Pressure 135/65 149/73 H 153/65 H Pulse Oximetry 95 96 97 07/20/18 01:00 07/20/18 02:00 07/20/18 03:00 Temperature Pulse Rate 65 68 69 Respiratory Rate 20 20 20 Blood Pressure 176/77 H 149/67 H 169/75 H Pulse Oximetry 99 92 L 100 07/20/18 04:00 07/20/18 05:00 07/20/18 06:00 Temperature 98.0 F Pulse Rate 67 65 75 Respiratory Rate 20 20 20 Blood Pressure 167/76 H 153/71 H 174/81 H Pulse Oximetry 100 93 L 97 07/20/18 07:00 07/20/18 08:00 Temperature 98.3 F Pulse Rate 74 80 Respiratory Rate 113 H 114 H Blood Pressure 161/72 H 156/68 H Pulse Oximetry 91 L 91 L Intake & Output 07/19/18 07/20/18 07/20/18 18:59 06:59 18:59 Intake Total 1450 / 1450 300 / 300 50 / 50 Output Total 1350 / 1350 750 / 750 Balance 100 / 100 -450 / -450 50 / 50 Weight 61.7 kg Intake: IV 1450 / 1450 300 / 300 50 / 50 NS Inj 1,000 ML @ 30 mls/hr IV. 1100 / 1100 CONT .Q24H [facility] Rx#:[id number] Cubicin Inj 400 MG In NS Inj 100 / 100 100 ML @ 200 mls/hr IV.SIG Q48H [facility] Rx#:[id number] Zosyn 2.25 GM Premix 50 ML @ 50 / 50 100 / 100 50 / 50 100 mls/hr IV.SIG Q8H [facility] Rx#: [id number] KCl 20 mEq Premix Inj 20 meq In 200 / 200 200 / 200 100 ml @ 50 mls/hr IV.SIG Q2H [facility] Rx#:[id number] Output: Urine Amount (Catheter) 1350 / 1350 750 / 750 Condom 1350 / 1350 750 / 750 Chest Tube Drainage 0 / 0 Right 0 / 0 Other: Date of Last Bowel Movement 07/19/18 07/19/18 07/19/18 07/15/18 11:45 Fluid - Pleural fluid Gram Stain - Final 07/15/18 11:45 Fluid - Pleural fluid Body Fluid Culture - Final No growth in 72 hours (aerobically and anaerobically ) Lab - Chemistry Results 07/18/18 07/19/18 07/19/18 22:08 05:30 09:57 Sodium 158 H* Potassium 2.9 L* 3.4 L Chloride 112 H Carbon Dioxide 35.5 H Anion Gap 11 BUN 74 H Creatinine 2.24 H Estimated GFR 30 L POC Glucose 109 Random Glucose 115 H Calcium 9.1 Phosphorus 2.8 Magnesium 1.7 Total Bilirubin Direct Bilirubin Indirect Bilirubin AST ALT Alkaline Phosphatase Ammonia Total Protein Albumin 3.2 L 07/19/18 07/20/18 07/20/18 13:01 05:20 05:20 Sodium 162 H* Potassium 2.8 L* 3.2 L 3.3 L Chloride 119 H Carbon Dioxide 36.4 H Anion Gap 7 BUN 65 H Creatinine 1.82 H Estimated GFR 38 L POC Glucose Random Glucose 118 H Calcium 8.9 Phosphorus 2.8 Magnesium Total Bilirubin 9.8 H Direct Bilirubin 7.5 H Indirect Bilirubin 2.3 H AST 150 H ALT 205 H Alkaline Phosphatase 88 Ammonia Total Protein 7.2 D Albumin 3.1 L 07/20/18 07:33 Sodium Potassium Chloride Carbon Dioxide Anion Gap BUN Creatinine Estimated GFR POC Glucose Random Glucose Calcium Phosphorus Magnesium Total Bilirubin Direct Bilirubin Indirect Bilirubin AST ALT Alkaline Phosphatase Ammonia 11 Total Protein Albumin Imaging: ITS Impressions Elbow X-Ray 07/08/18 18:01 CONCLUSION: 1. Small, mildly displaced olecranon avulsion fracture fragments of the triceps insertion with associated soft tissue swelling. 2. Joint effusion. No perceptible intra-articular fracture. No subluxation. Abdomen/Pelvis CT 07/08/18 18:02 CONCLUSION: 1. Severe fatty infiltration of the liver. 2. Apparent pericholecystic fluid. Also fairly robust enhancement of the gallbladder mucosa. Please correlate clinically for any evidence of cholecystitis. No stones or ductal dilatation demonstrated. Gallbladder Ultrasound 07/08/18 18:53 CONCLUSION: 1. Small, nonspecific pericholecystic fluid without stones, wall thickening or sonographic Lundy's sign. The fluid may be on the basis of hepatocellular disease. The ultrasound does not support acute cholecystitis. 2. Fatty infiltrated and mildly enlarged liver. Carotid Doppler Study 07/09/18 00:00 CONCLUSION: 1. Right Internal Carotid Artery: Findings indicate >70% stenosis, but less than near occlusion. 2. Left Internal Carotid Artery: Findings indicate <50% stenosis. Hepatobiliary Scan Nuclear Medicine 07/09/18 14:22 CONCLUSION: 1. No activity in intrahepatic ducts, common duct or small bowel. Considerations include include acute obstruction of the common duct and diffuse hepatocellular disease. 2. CT scan shows no dilatation of the common duct or intrahepatic ducts. Diffuse hepatocellular disease is suspected. Neck CTA 07/10/18 00:00 CONCLUSION: 1. 80% stenosis of the proximal right ICA. Left carotid and bilateral vertebral arteries are patent. 2. Emphysematous changes. Abdomen/Pelvis CTA 07/10/18 00:08 CONCLUSION: 1. 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 The SMA and MIC are patent. 2. Hepatic steatosis. 3. Emphysematous changes. Abdomen/Bladder Ultrasound 07/11/18 00:00 CONCLUSION: 1. Normal ultrasound appearance of the kidneys. 2. Other findings include hepatic steatosis and left pleural effusion. Elbow CT 07/11/18 00:00 CONCLUSION: 1. Small fracture fragment off the olecranon. 2. There is subcutaneous edema identified posterior to the elbow with soft tissue swelling. Head CT 07/13/18 00:00 CONCLUSION: 1. No acute intracranial abnormality. 2. Atrophy. . Chest X-Ray 07/20/18 04:00 CONCLUSION: Underlying interstitial disease. Left base atelectasis or consolidation which appears to be improving. Physical Exam: GENERAL: awake, weak, NAD SKIN: Cool and dry. No generalized rash, no ecchymoses. HEAD: Atraumatic. Normocephalic. No temporal wasting, or tenderness. EYES: [place] conjunctiva. No petechia or hemorrhage. Pupils equal, round and reactive to light. Has mild injection ENT: Intubated CARDIOVASCULAR: Regular rate and rhythm. RESPIRATORY: Decreased BS at bases ABDOMEN: Soft, no response to palpation EXTREMITIES: No clubbing, cyanosis. Mild pedal edema. Has posterior splint in his whole LUE NEUROLOGICAL: Pupils unequal left > right. PSYCHIATRIC: Unable to assess LINE: No evidence of infection Assessment and Plan - Plan Impression MRSA sepsis ? olecranon trauma as entry point for MRSA MRSA bacteremia, ? endocarditis - echo ok Shock, resolved Known ETOH abuse and tobacco abuse Denies IVDU, admits to smoking cocaine ETOH liver disease Elevated LFT Thrombocytopenia Acute renal failure: sepsis, contrast, meds. - has good UO Respiratory failure, extubated today Pleural effusion, has CT - fluid transudative Recommendation continue Cubicin for now for MRSA bacteremia Stop Zosyn Follow temps Monitor progress D/W RN
[2018-07-20] MEDS: Haloperidol Inj 5 MG/ML Ampul IV.PUSH PRN ×2 (13:14→15:45)
--- NOTE | 2018-07-20 13:23 | P.PNCA ---
Subjective Interval history: Patient has altered mental status. He does not follow commands or answer any questions. He does make eye contact for a few seconds. Medications and Allergies Allergies Allergy/AdvReac Type Severity Reaction Status Date / Time No Known Allergies Allergy Verified 07/08/18 12:30 Home Medications Medication Instructions Recorded Confirmed Type No Known Home Medications 07/08/18 07/08/18 History Active Medications: Active Medications Al Hydroxide/Mg Hydroxide (Milk Of Magnesia Liq) 30 ml PO Q12H PRN PRN Reason: Mild Constipation Albuterol (Albuterol Neb (Prn)) 2.5 mg NEB Q2HR NEB PRN PRN Reason: DYSPNEA Albuterol (Duoneb Neb (Prn)) 1 ampul NEB Q2HR NEB PRN PRN Reason: SHORTNESS OF BREATH Last Admin: 07/14/18 08:20 Dose: 1 ampul Chlorhexidine Gluconate (Peridex 0.12% Oral Kit) 15 ml OROPHARYNG BID@0800, 2000 [facility] Last Admin: 07/20/18 07:58 Dose: 15 ml Flumazenil (Romazecon Inj) 0.2 mg IV.PUSH Q1M PRN PRN Reason: OVERSEDATION Haloperidol Lactate (Haldol Inj) 1 mg IV.PUSH Q15M PRN PRN Reason: for severe agitation Hydralazine HCl (Apresoline Inj) 20 mg IV.PUSH Q4H PRN PRN Reason: Sys Bp Greater Than 165 Mmh[facility] Daptomycin 400 mg/ Sodium (Chloride) 100 mls @ 200 mls/hr IV.SIG Q48H [facility] Last Infusion: 07/19/18 12:44 Dose: Infused Potassium Chloride 10 meq/ (Dextrose) 1,005 mls @ 125 mls/hr IV.CONT .Q8H3M [facility] Last Admin: 07/20/18 07:57 Dose: 125 mls/hr Labetalol HCl (Trandate Inj) 10 mg IV.PUSH Q1H PRN PRN Reason: Sbp>165, Dbp>90, Hr>65 Lactulose (Lactulose Liq) 30 ml PO DAILY PRN PRN Reason: SEVERE CONSITIPATION Lactulose (Lactulose Liq) 30 ml PO TID [facility] Last Admin: 07/20/18 12:06 Dose: Not Given Lorazepam (Ativan) 1 mg PO Q4H PRN PRN Reason: for CIWA 8-10 Lorazepam (Ativan) 2 mg PO Q2H PRN PRN Reason: for CIWA 11-14 Lorazepam (Ativan Inj) 2 mg IV.PUSH Q2H PRN PRN Reason: for CIWA 11-14 Last Admin: 07/20/18 11:13 Dose: 2 mg Lorazepam (Ativan Inj) 2 mg IV.PUSH Q1H PRN PRN Reason: for CIWA 15-20 Last Admin: 07/11/18 21:37 Dose: 2 mg Lorazepam (Ativan Inj) 2 mg IV.PUSH Q15M PRN PRN Reason: for CIWA > 20 Lorazepam (Ativan Inj) 1 mg IV.PUSH Q4H PRN PRN Reason: for CIWA 8-10 Last Admin: 07/20/18 00:45 Dose: 1 mg Miscellaneous Medication () 1 each OROPHARYNG 0000,0400,1200,1600 [facility] Last Admin: 07/20/18 11:13 Dose: 1 each Morphine Sulfate (Morphine Inj) 2 mg IV.PUSH Q4H PRN PRN Reason: BREAKTHROUGH PAIN Last Admin: 07/20/18 08:32 Dose: 2 mg Mupirocin (Bactroban 2% Nasal Oint) 1 applicatio EACH NARE BID [facility] Last Admin: 07/20/18 08:01 Dose: 1 applicatio Naloxone HCl (Narcan Inj) 0.4 mg IV.PUSH UNSCH PRN PRN Reason: SEE LABEL COMMENTS Ondansetron HCl (Zofran Inj) 4 mg IV.PUSH Q6H PRN PRN Reason: NAUSEA OR VOMITING Pantoprazole Sodium (Protonix Inj) 40 mg IV.PUSH DAILY [facility] Last Admin: 07/20/18 08:00 Dose: 40 mg Sennosides (Senokot) 17.2 mg PO Q12H PRN PRN Reason: Moderate Constipation Sodium Chloride (Ns Flush) 2 ml IV.FLUSH PRN PRN PRN Reason: FLUSH AFTER USING IV ACCESS Sodium Chloride (Ns Flush) 2 ml IV.FLUSH BID [facility] Last Admin: 07/20/18 08:00 Dose: Not Given Physical Exam Vital signs: Vital Signs 07/19/18 14:00 07/19/18 15:00 07/19/18 16:00 Temperature Pulse Rate 65 66 64 Respiratory Rate 44 H 113 H 89 H Blood Pressure 148/71 H 147/74 H 153/74 H Pulse Oximetry 98 97 99 07/19/18 17:00 07/19/18 18:00 07/19/18 19:00 Temperature Pulse Rate 68 69 68 Respiratory Rate 111 H 81 H 77 H Blood Pressure 139/69 152/73 H 139/66 Pulse Oximetry 95 97 97 07/19/18 20:00 07/19/18 21:00 07/19/18 22:00 Temperature 97.5 F L Pulse Rate 67 68 67 Respiratory Rate 103 H 20 107 H Blood Pressure 144/73 H 150/73 H 135/65 Pulse Oximetry 95 94 L 95 07/19/18 23:00 07/20/18 00:00 07/20/18 01:00 Temperature 98.2 F Pulse Rate 67 68 65 Respiratory Rate 24 24 20 Blood Pressure 149/73 H 153/65 H 176/77 H Pulse Oximetry 96 97 99 07/20/18 02:00 07/20/18 03:00 07/20/18 04:00 Temperature 98.0 F Pulse Rate 68 69 67 Respiratory Rate 20 20 20 Blood Pressure 149/67 H 169/75 H 167/76 H Pulse Oximetry 92 L 100 100 07/20/18 05:00 07/20/18 06:00 07/20/18 07:00 Temperature Pulse Rate 65 75 74 Respiratory Rate 20 20 113 H Blood Pressure 153/71 H 174/81 H 161/72 H Pulse Oximetry 93 L 97 91 L 07/20/18 08:00 Temperature 98.3 F Pulse Rate 80 Respiratory Rate 114 H Blood Pressure 156/68 H Pulse Oximetry 91 L Intake & Output 07/19/18 07/20/18 07/20/18 18:59 06:59 18:59 Intake Total 1450 / 1450 300 / 300 50 / 50 Output Total 1350 / 1350 750 / 750 Balance 100 / 100 -450 / -450 50 / 50 Weight 61.7 kg Intake: IV 1450 / 1450 300 / 300 50 / 50 NS Inj 1,000 ML @ 30 mls/hr IV. 1100 / 1100 CONT .Q24H [facility] Rx#:[id number] Cubicin Inj 400 MG In NS Inj 100 / 100 100 ML @ 200 mls/hr IV.SIG Q48H [facility] Rx#:[id number] Zosyn 2.25 GM Premix 50 ML @ 50 / 50 100 / 100 50 / 50 100 mls/hr IV.SIG Q8H [facility] Rx#: [id number] KCl 20 mEq Premix Inj 20 meq In 200 / 200 200 / 200 100 ml @ 50 mls/hr IV.SIG Q2H [facility] Rx#:[id number] Output: Urine Amount (Catheter) 1350 / 1350 750 / 750 Condom 1350 / 1350 750 / 750 Chest Tube Drainage 0 / 0 Right 0 / 0 Other: Date of Last Bowel Movement 07/19/18 07/19/18 07/19/18 - Constitutional no acute distress - Routine HEENT Exam Head: Present: normocephalic ENT: Present: mucous membranes moist Comments: chronic dilated left pupil - Routine Neck Exam Present: supple - Routine Respiratory Exam Present: CTA bilaterally, rales Comments: fine rales noted in the lower lobes bilateral - Routine Cardiovascular Exam Present: S1, S2. Absent: murmur, gallop, rubs - Routine Abdominal Exam Present: normoactive bowel sounds - Routine Extremities Exam Present: full ROM, pulses intact, normal capillary refill. Absent: cyanosis, clubbing, edema - Routine Skin Exam Present: intact - Routine Neurological Exam Present: altered mental status - Detailed Neurological Exam: Coma Scale Eye Opening: Spontaneous Verbal Response: None Motor Response: None [place] Coma Scale Total: 6 - Routine Psychiatric Exam Present: unable to assess - Urinary Catheter Management Indwelling Urethral Catheter Cath placed during this visit: yes, but has since been removed by the nurse Reason for continuing: Decision to DC catheter Insertion date: 07/12/18 Insertion time: 07:45 Removal date: 07/19/18 Removal time: 10:45 Condom Cath placed during this visit: yes Reason for continuing: Not indwelling catheter Insertion date: 07/19/18 Insertion time: 10:50 Results 07/15/18 09:04 07/20/18 05:20 Cardiac Enzymes 07/20/18 Range/Units 05:20 AST 150 H (15-37) U/L Coagulation 07/20/18 Range/Units 05:20 PT 18.0 H (9.8-11.6) sec Comprehensive Metabolic Panel 07/18/18 07/19/18 07/19/18 Range/Units 22:08 05:30 13:01 Sodium 158 H* (136-145) meq/L Potassium 2.9 L* 3.4 L 2.8 L* (3.5-5.1) meq/L Chloride 112 H (98-107) meq/L Carbon Dioxide 35.5 H (21.0-32.0) meq/L BUN 74 H (7-18) mg/dL Creatinine 2.24 H (0.60-1.30) mg/dL Calcium 9.1 (8.5-10.1) mg/dL Direct Bilirubin (0.0-0.2) mg/dL Indirect Bilirubin (0.0-0.8) mg/dL AST (15-37) U/L ALT (12-78) U/L Alkaline Phosphatase (45-117) U/L Total Protein (6.4-8.2) g/dL Albumin 3.2 L (3.4-5.0) g/dL 07/20/18 07/20/18 Range/Units 05:20 05:20 Sodium 162 H* (136-145) meq/L Potassium 3.2 L 3.3 L (3.5-5.1) meq/L Chloride 119 H (98-107) meq/L Carbon Dioxide 36.4 H (21.0-32.0) meq/L BUN 65 H (7-18) mg/dL Creatinine 1.82 H (0.60-1.30) mg/dL Calcium 8.9 (8.5-10.1) mg/dL Direct Bilirubin 7.5 H (0.0-0.2) mg/dL Indirect Bilirubin 2.3 H (0.0-0.8) mg/dL AST 150 H (15-37) U/L ALT 205 H (12-78) U/L Alkaline Phosphatase 88 (45-117) U/L Total Protein 7.2 D (6.4-8.2) g/dL Albumin 3.1 L (3.4-5.0) g/dL Intake and Output 07/19/18 07/20/18 07/20/18 22:59 06:59 14:59 Intake Total 350 / 350 150 / 150 50 / 50 Output Total 1350 / 1350 750 / 750 Balance -1000 / -1000 -600 / -600 50 / 50 Intake: IV 350 / 350 150 / 150 50 / 50 Zosyn 2.25 GM Premix 50 ML @ 50 / 50 50 / 50 50 / 50 100 mls/hr IV.SIG Q8H [facility] Rx#: [id number] KCl 20 mEq Premix Inj 20 meq In 300 / 300 100 / 100 100 ml @ 50 mls/hr IV.SIG Q2H [facility] Rx#:[id number] Output: Urine Amount (Catheter) 1350 / 1350 750 / 750 Condom 1350 / 1350 750 / 750 Chest Tube Drainage 0 / 0 Right 0 / 0 Other: Date of Last Bowel Movement 07/19/18 07/19/18 07/19/18 Weight 61.7 kg - Imaging and Cardiology Imaging: Impressions Chest X-Ray 07/20/18 04:00 CONCLUSION: Underlying interstitial disease. Left base atelectasis or consolidation which appears to be improving. Assessment and Plan - Assessment (1) Chest pain Code(s): R07.9 - Chest pain, unspecified Status: Acute (2) Elevated troponin level Code(s): R74.8 - Abnormal levels of other serum enzymes Status: Acute (3) Liver failure Code(s): K72.90 - Hepatic failure, unspecified without coma Status: Acute (4) Hyperbilirubinemia Code(s): E80.6 - Other disorders of bilirubin metabolism Status: Acute - Plan Patient is hypertensive at this time, we will increase his hydralazine to 20mg IV Q4H. Patient failed swallow evaluation and is unable to take PO medications. We will continue with conservative management for his recent NSTEMI. Patient still very confused, neurology evaluation in progress. Renal function is slightly improved, renal evaluation in progress. We will continue to monitor patient during hospitalization. The patient was seen and evaluated by Dr. Gonzalez who participated in care, management and decision making. - Attending Attestation Patient seen and examined. I reviewed and agree with the evaluation and plan as presented. Continue conservative management post NSTEMI. Still with AMS, neurology evaluation.
[2018-07-21] MEDS: Oral Hygiene Kit OROPHARYNG SCH ×4 (00:20→18:23)
[2018-07-21] MEDS: Morphine Inj 4 MG/ML Vial IV.PUSH PRN ×3 (00:29→14:07)
[2018-07-21] MEDS: Potassium Chloride Inj 10 MEQ in Dextrose 5% in Water Inj 1,000 ML IV.CONT SCH ×8 (01:21→18:59)
[2018-07-21 06:54] LABS: Baso # (Auto) 0.1 th/mm3 (0.0-0.2); Baso % (Auto) 1.4 % (0.0-2.0); Eos # (Auto) 0.4 th/mm3 (0.0-0.4); Eos % (Auto) 3.5 % (0.0-4.0); Hematocrit 36.4 % (39.0-51.0); Hemoglobin 12.2 gm/dL (13.0-17.0); Lymph # (Auto) 1.9 th/mm3 (1.0-4.8); Lymph % (Auto) 18.4 % (9.0-44.0); Mean Corpuscular HGB Conc 33.5 % (32.0-36.0); Mean Corpuscular Hemoglobin 34.3 pg (27.0-34.0); Mean Corpuscular Volume 102.3 fL (80.0-100.0); Mean Platelet Volume 11.6 fL (7.0-11.0); Mono % (Auto) 9.9 % (0.0-8.0); Neut # (Auto) 6.9 th/mm3 (1.8-7.7); Neut % (Auto) 66.8 % (16.0-70.0); Platelet Count 57 th/mm3 (150-450); Red Blood Count 3.56 mil/mm3 (4.50-5.90); Red Cell Distribution Width 15.4 % (11.6-17.2); White Blood Count 10.3 th/mm3 (4.0-11.0)
[2018-07-21 07:07] LABS: INR 1.7 Ratio; Prothrombin Time 17.6 sec (9.8-11.6)
[2018-07-21 07:20] LABS: Alanine Aminotransferase 190 U/L (12-78); Albumin 2.9 g/dL (3.4-5.0); Anion Gap 6 meq/L (5-15); Aspartate Aminotransferase 153 U/L (15-37); Blood Urea Nitrogen 47 mg/dL (7-18); Carbon Dioxide 36.2 meq/L (21.0-32.0); Chloride 118 meq/L (98-107); Glomerular Filtration Rate 53 mL/min (>89); Glucose,Random 121 mg/dL (74-106)
[2018-07-21 07:23] LABS: Alkaline Phosphatase 87 U/L (45-117); Total Protein 6.9 g/dL (6.4-8.2)
[2018-07-21 07:25] LABS: Potassium 2.9 meq/L (3.5-5.1); Sodium 160 meq/L (136-145)
[2018-07-21] MEDS: Pantoprazole Inj 40 MG Vial IV.PUSH SCH (08:34)
[2018-07-21] MEDS: Mupirocin 2% Nasal Oint Topical Syringe EACH NARE SCH ×2 (08:35→21:00)
[2018-07-21 09:58] LABS: Target Cells 1+
--- NOTE | 2018-07-21 10:22 | P.PNID ---
Subjective Remarks: Patient is a 63-year-old male, presented to the hospital complaining of pain and swelling on his left elbow. He stated that he fell about a week ago but did not seek any treatment for his left elbow. He presented to the ED, and he was found to have a fracture of the olecranon on the left side. Patient also since admission has complained of some abdominal pain. He has known history of significant alcohol abuse. Imaging studies of the abdomen showed hepatic steatosis, pericholecystic fluid with no ductal dilatation. Ultrasound showed pericholecystic fluid with negative Lundy sign. He had a HIDA scan which showed no activity which could most likely be due to his liver disease. Patient also had a CTA as part of evaluation for his abdominal pain. That is okay. There were 2 blood cultures done in the ED, and they are now reported as growing MRSA. Patient has had some low-grade temps. Overnight he had persistent hypotension, and he was transferred to the ICU. Patient currently is on pressors. He is afebrile. He is still complaining of abdominal pain. He states he has chronic back pain which has not changed. He denies any shortness of breath. On this admission he was also found to have 80% right carotid artery stenosis, and vascular is following the patient. Echocardiograms not showing any obvious vegetation. His WBC is mildly elevated. He has an elevated lactic acid. His platelet count is low, fibrinogen is normal. Infectious disease consultation has been requested to assist with evaluation and treatment of his bacteremia. Notes reviewed Good sats on RA Awake Afebrile Creatinine improving, good UO WBC normal Sputum ok CXR improving No new (+) BC Only (+) BC is from 07/08 Antibiotics: Cubicin Lines: Line sites with no e.o infection Past Medical History: Tobacco and ETOH abuse Drug screen (+) cocaine (denies IVDU), admits to smoking Allergies/Adverse Reactions: Allergies No Known Allergies Allergy (Verified 07/08/18 12:30) Objective Vital Signs 07/20/18 11:00 07/20/18 11:27 07/20/18 12:00 Temperature Pulse Rate 72 74 Respiratory Rate 24 22 Blood Pressure 176/81 H 172/70 H 169/107 H Pulse Oximetry 100 100 07/20/18 13:00 07/20/18 13:19 07/20/18 13:43 Temperature 98.3 F Pulse Rate 75 74 70 Respiratory Rate 18 18 15 Blood Pressure 163/72 H 161/70 H 160/73 H Pulse Oximetry 98 98 100 07/20/18 14:00 07/20/18 14:19 07/20/18 14:25 Temperature Pulse Rate 72 68 68 Respiratory Rate 16 14 17 Blood Pressure 172/78 H 164/74 H 164/74 H Pulse Oximetry 99 99 99 07/20/18 15:00 07/20/18 16:00 07/20/18 17:00 Temperature 98.4 F Pulse Rate 77 74 73 Respiratory Rate 17 15 15 Blood Pressure 165/72 H 173/75 H 168/70 H Pulse Oximetry 98 98 07/20/18 18:00 07/20/18 18:03 07/20/18 19:00 Temperature 98.3 F Pulse Rate 80 71 68 Respiratory Rate 24 24 17 Blood Pressure 176/76 H 164/70 H 167/74 H Pulse Oximetry 97 98 99 07/20/18 20:00 07/20/18 21:00 07/20/18 22:00 Temperature 97.9 F Pulse Rate 69 68 73 Respiratory Rate 17 14 26 H Blood Pressure 158/69 H 169/76 H 196/86 H Pulse Oximetry 98 97 98 07/20/18 22:09 18 23:00 07/21/18 00:00 Temperature 98.9 F Pulse Rate 68 68 74 Respiratory Rate 14 17 20 Blood Pressure 160/64 H 161/74 H 165/75 H Pulse Oximetry 100 98 98 07/21/18 01:00 07/21/18 02:00 07/21/18 03:00 Temperature Pulse Rate 69 72 69 Respiratory Rate 17 18 15 Blood Pressure 162/72 H 166/72 H 159/79 H Pulse Oximetry 100 99 95 07/21/18 04:00 07/21/18 05:00 07/21/18 06:00 Temperature Pulse Rate 69 74 76 Respiratory Rate 16 18 16 Blood Pressure 157/73 H 154/72 H 162/74 H Pulse Oximetry 98 99 94 L Intake & Output 07/20/18 07/21/18 07/21/18 18:59 06:59 18:59 Intake Total 2054 1005 / 1005 Output Total 750 / 750 650 / 650 Balance 1305 / 1305 355 / 355 Weight 60.1 kg Intake: IV 2055 / 2055 1005 / 1005 D5W/1/4 NS Inj 1,000 ML @ 42 1000 / 1000 mls/hr IV.CONT .[id number] [facility] Rx# :[id number] KCl Inj 10 MEQ In D5W Inj 1,000 1005 / 1005 1005 / 1005 ML @ 125 mls/hr IV.CONT .Q8H3M [facility] Rx#:[id number] Zosyn 2.25 GM Premix 50 ML @ 50 / 50 100 mls/hr IV.SIG Q8H [facility] Rx#: [id number] Oral 0 / 0 0 / 0 Output: Urine Amount (Catheter) 750 / 750 650 / 650 Condom 750 / 750 650 / 650 Chest Tube Drainage 0 / 0 Right 0 / 0 Other: # Incontinent Voids 0 Date of Last Bowel Movement 07/19/18 07/19/18 07/13/18 08:55 Fluid - Pleural fluid Fungal Smear - Final No fungal elements seen 07/13/18 08:55 Fluid - Pleural fluid Fungal Culture - Preliminary No growth in 1 week 07/13/18 08:55 Fluid - Pleural fluid Acid Fast Bacilli Smear - Final No acid fast bacilli seen 07/13/18 08:55 Fluid - Pleural fluid Mycobacterial Culture - Preliminary No growth in 1 week 07/15/18 11:45 Fluid - Pleural fluid Gram Stain - Final 07/15/18 11:45 Fluid - Pleural fluid Body Fluid Culture - Final No growth in 72 hours (aerobically and anaerobically ) Lab - Hematology Results 07/21/18 05:43 WBC 10.3 RBC 3.56 L Hgb 12.2 L Hct 36.4 L MCV 102.3 H MCH 34.3 H MCHC 33.5 RDW 15.4 Plt Count 57 L MPV 11.6 H Prelim Diff (Auto) Slide review pending Neut % (Auto) 66.8 Lymph % (Auto) 18.4 [place] % (Auto) 9.9 H Eos % (Auto) 3.5 Baso % (Auto) 1.4 Neut # (Auto) 6.9 Lymph # (Auto) 1.9 [place] # (Auto) 1.0 H Eos # (Auto) 0.4 Baso # (Auto) 0.1 WBC Differential . Diff Scan Auto diff confirmed Differential Comment . Platelet Estimate Low L Platelet Morphology Enlarged H Target Cells 1+ H Lab - Chemistry Results 07/19/18 07/20/18 07/20/18 13:01 05:20 05:20 Sodium 162 H* Potassium 2.8 L* 3.2 L 3.3 L Chloride 119 H Carbon Dioxide 36.4 H Anion Gap 7 BUN 65 H Creatinine 1.82 H Estimated GFR 38 L Random Glucose 118 H Calcium 8.9 Phosphorus 2.8 Total Bilirubin 9.8 H Direct Bilirubin 7.5 H Indirect Bilirubin 2.3 H AST 150 H ALT 205 H Alkaline Phosphatase 88 Ammonia Total Protein 7.2 D Albumin 3.1 L 07/20/18 07/21/18 07:33 05:43 Sodium 160 H* Potassium 2.9 L* Chloride 118 H Carbon Dioxide 36.2 H Anion Gap 6 BUN 47 H Creatinine 1.37 H Estimated GFR 53 L Random Glucose 121 H Calcium 9.0 Phosphorus Total Bilirubin 8.7 H Direct Bilirubin Indirect Bilirubin AST 153 H ALT 190 H Alkaline Phosphatase 87 Ammonia 11 Total Protein 6.9 Albumin 2.9 L Imaging: ITS Impressions Elbow X-Ray 07/08/18 18:01 CONCLUSION: 1. Small, mildly displaced olecranon avulsion fracture fragments of the triceps insertion with associated soft tissue swelling. 2. Joint effusion. No perceptible intra-articular fracture. No subluxation. Abdomen/Pelvis CT 07/08/18 18:02 CONCLUSION: 1. Severe fatty infiltration of the liver. 2. Apparent pericholecystic fluid. Also fairly robust enhancement of the gallbladder mucosa. Please correlate clinically for any evidence of cholecystitis. No stones or ductal dilatation demonstrated. Gallbladder Ultrasound 07/08/18 18:53 CONCLUSION: 1. Small, nonspecific pericholecystic fluid without stones, wall thickening or sonographic Lundy's sign. The fluid may be on the basis of hepatocellular disease. The ultrasound does not support acute cholecystitis. 2. Fatty infiltrated and mildly enlarged liver. Carotid Doppler Study 07/09/18 00:00 CONCLUSION: 1. Right Internal Carotid Artery: Findings indicate >70% stenosis, but less than near occlusion. 2. Left Internal Carotid Artery: Findings indicate <50% stenosis. Hepatobiliary Scan Nuclear Medicine 07/09/18 14:22 CONCLUSION: 1. No activity in intrahepatic ducts, common duct or small bowel. Considerations include include acute obstruction of the common duct and diffuse hepatocellular disease. 2. CT scan shows no dilatation of the common duct or intrahepatic ducts. Diffuse hepatocellular disease is suspected. Neck CTA 07/10/18 00:00 CONCLUSION: 1. 80% stenosis of the proximal right ICA. Left carotid and bilateral vertebral arteries are patent. 2. Emphysematous changes. Abdomen/Pelvis CTA 07/10/18 00:08 CONCLUSION: 1. 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 The SMA and MIC are patent. 2. Hepatic steatosis. 3. Emphysematous changes. Abdomen/Bladder Ultrasound 07/11/18 00:00 CONCLUSION: 1. Normal ultrasound appearance of the kidneys. 2. Other findings include hepatic steatosis and left pleural effusion. Elbow CT 07/11/18 00:00 CONCLUSION: 1. Small fracture fragment off the olecranon. 2. There is subcutaneous edema identified posterior to the elbow with soft tissue swelling. Head CT 07/13/18 00:00 CONCLUSION: 1. No acute intracranial abnormality. 2. Atrophy. . Chest X-Ray 07/20/18 04:00 CONCLUSION: Underlying interstitial disease. Left base atelectasis or consolidation which appears to be improving. Physical Exam: GENERAL: awake, weak, NAD SKIN: Cool and dry. No generalized rash, no ecchymoses. HEAD: Atraumatic. Normocephalic. No temporal wasting, or tenderness. EYES: [place] conjunctiva. No petechia or hemorrhage. Pupils equal, round and reactive to light. Has mild injection ENT: Intubated CARDIOVASCULAR: Regular rate and rhythm. RESPIRATORY: Decreased BS at bases ABDOMEN: Soft, diffuse tenderness, edwin in RUQ, ?suprapubic fullness EXTREMITIES: No clubbing, cyanosis. Mild pedal edema. Has posterior splint in his whole LUE NEUROLOGICAL: Pupils unequal left > right. Awake and responding, moving all extremities PSYCHIATRIC: Cooperative LINE: No evidence of infection Assessment and Plan - Plan Impression MRSA sepsis ? olecranon trauma as entry point for MRSA MRSA bacteremia, ? endocarditis - echo ok Shock, resolved Known ETOH abuse and tobacco abuse Denies IVDU, admits to smoking cocaine ETOH liver disease Elevated LFT Thrombocytopenia Acute renal failure: sepsis, contrast, meds. - improving - has good UO Respiratory failure, extubated Pleural effusion, fluid transudative Recommendation continue Cubicin for now for MRSA bacteremia - since all fup neg and echo ok, plan 14 days IV Abx from (+) Follow temps Monitor progress D/W RN
[2018-07-21] MEDS: Potassium Chlor 20 mEq Premix 20 MEQ/100 ML PIGGYBACK IV.SIG SCH ×4 (10:23→16:16)
--- NOTE | 2018-07-21 10:28 | P.PNCC ---
Subjective Subjective Remarks/Hospital Course: 63-year-old male. Admission 07/09/2018. Date of consultation 2017. Past medical history includes ongoing alcoholism. Urine tox screen on admission positive for cocaine and opiates. Patient originally fell from a single bed about 1 week ago. He did not seek treatment for his swollen left elbow. He is initially diagnosed here with a left olecranon fracture/ nondisplaced. Seen by Dr. Blanco recommended splint/immobilization. Follow-up outpatient with x-rays in 2 weeks. He was treated with alcoholism for on the [facility] protocol receiving multivitamin, folate and thiamine. During admission, patient had multiple complaints including right upper quadrant pain. Patient has CT his abdomen/pelvis revealed hepatic steatosis, pericholecystic fluid with no ductal dilatation. Ultrasound showed pericholecystic 6 with negative Lundy sign. Nuclear medicine scan revealed no activity in the intrahepatic ducts compatible ducts or small bowel. Likely slightly disease. Patient was evaluated by gastroenterology for this issue. BOBBY, AMA, ASMA, SSA a and B, [place]qu[place], scleroderma and double-stranded DNA all pending. Negative hepatitis panel. Noted patient had angiogram of the abdomen which revealed no focal stenosis of the SMA, MIC or celiac. Patient elevated troponin. Was seen by Dr. chaudhry. Echocardiogram revealed EF 55-6%. PA P 43 mmHg. Trace to mild TR. Possibly demand ischemia due to sepsis. Was on aspirin. Did receive/placed on heparin drip. This is currently on hold due to coagulopathic state. Patient has gram-positive cocci in blood. Infectious disease has been counseled. Currently on vancomycin for comfort.) I repeated blood cultures, sputum and urine culture today. Patient is 80% right carotid artery stenosis. Followed by Dr. Bassett. Patient was transferred to ICU with persistent hypotension increasing lactic acidosis in the setting of acute liver injury. Worsening renal function. Patient has received 2.5 L normal saline the present time his blood pressure appears stable. Patient is currently denying abdominal pain. SUBJECTIVE: 07/11: Currently resting in bed and asking when he can go home. Creatinine is elevated 2.3. Will bolus with additional fluid. Echocardiogram results noted. 07/12: Negligible urine output overnight. [place] placed. Short of breath this morning. Not requiring pressors 07/13: Patient in respiratory distress tachypneic breathing 40 breaths/min. Intermittently desaturating to low 80s on nasal cannula. Very lethargic hardly protecting airway. Emergently intubated and placed on mechanical ventilation. Currently on Bumex infusion urine output improving. However BUN/creatinine was 49/4.53. Chest x-ray today shows extensive right-sided infiltrate. Chest x- ray on 07/12 shows extensive right-sided lower lobe infiltrate but was clear on 07/10/2018. Indicates probable aspiration pneumonia 07/14: Intubated and placed on mechanical ventilation yesterday for severe hypoxemic respiratory failure. After intubation right pigtail chest tube placed for large effusion. Last 24 hours 1.4 L drained. Currently on broad- spectrum antibiotics. Remains septic renal function stable creatinine 4.57. Remains on Bumex drip urine output 2.4 L in 24 hours 07/15: Intubated off sedation waking up moving extremities. Chest x-ray and bedside ultrasound shows moderate to large left pleural effusion. Remains on Bumex drip 2.8 L urine output in 24 hours. Plan for left thoracentesis today. Bilirubin noted to be finding 7.5 today probably cholestasis. Previous HIDA scan showed questionable common bile duct obstruction versus hepatobiliary disease. Reconsult GI for further evaluation may need MRCP 07/16: Remains on mechanical ventilation. Acute kidney injury persists. 07/17: Respiratory effort during spontaneous breathing trials has improved modestly from yesterday. He continues to respond to loop diuretic infusion. Opens eyes and tracks today. 07/18: Renal function continues to improve and fluid removal going better. Gas exchange better today and respiratory effort on spontaneous breathing trials has improved. We will try to extubate today and begin further rehab. 07/19: Extubated yesterday and protects airway satisfactorily. Hypokalemia persists, will replace aggressively today. Worsening jaundice. 07/20: He appears to be in free water deficit, will convert intravenous fluid to D5 water. Rising bilirubin following an episode of shock liver on arrival, largely direct component. This appears to be a product of primary liver dysfunction and will follow ammonia. Check right upper quadrant ultrasound if not done recently. Recent hepatitis screen negative. 07/21: Awake, alert, disoriented. On nasal cannula. Elevated LFTs noted. Needs G-tube placement Objective Vital Signs / I&O: Vital Signs 07/20/18 11:00 07/20/18 11:27 07/20/18 12:00 Temperature Pulse Rate 72 74 Respiratory Rate 24 22 Blood Pressure 176/81 H 172/70 H 169/107 H Pulse Oximetry 100 100 07/20/18 13:00 18 13:19 18 13:43 Temperature 98.3 F Pulse Rate 75 74 70 Respiratory Rate 18 18 15 Blood Pressure 163/72 H 161/70 H 160/73 H Pulse Oximetry 98 98 100 07/20/18 14:00 07/20/18 14:19 07/20/18 14:25 Temperature Pulse Rate 72 68 68 Respiratory Rate 16 14 17 Blood Pressure 172/78 H 164/74 H 164/74 H Pulse Oximetry 99 99 99 07/20/18 15:00 07/20/18 16:00 07/20/18 17:00 Temperature 98.4 F Pulse Rate 77 74 73 Respiratory Rate 17 15 15 Blood Pressure 165/72 H 173/75 H 168/70 H Pulse Oximetry 98 98 07/20/18 18:00 07/20/18 18:03 07/20/18 19:00 Temperature 98.3 F Pulse Rate 80 71 68 Respiratory Rate 24 24 17 Blood Pressure 176/76 H 164/70 H 167/74 H Pulse Oximetry 97 98 99 07/20/18 20:00 07/20/18 21:00 07/20/18 22:00 Temperature 97.9 F Pulse Rate 69 68 73 Respiratory Rate 17 14 26 H Blood Pressure 158/69 H 169/76 H 196/86 H Pulse Oximetry 98 97 98 07/20/18 22:09 07/20/18 23:00 07/21/18 00:00 Temperature 98.9 F Pulse Rate 68 68 74 Respiratory Rate 14 17 20 Blood Pressure 160/64 H 161/74 H 165/75 H Pulse Oximetry 100 98 98 07/21/18 01:00 07/21/18 02:00 07/21/18 03:00 Temperature Pulse Rate 69 72 69 Respiratory Rate 17 18 15 Blood Pressure 162/72 H 166/72 H 159/79 H Pulse Oximetry 100 99 95 07/21/18 04:00 07/21/18 05:00 07/21/18 06:00 Temperature Pulse Rate 69 74 76 Respiratory Rate 16 18 16 Blood Pressure 157/73 H 154/72 H 162/74 H Pulse Oximetry 98 99 94 L Intake & Output 07/20/18 07/21/18 07/21/18 18:59 06:59 18:59 Intake Total 2054 1005 / 1005 Output Total 750 / 750 650 / 650 Balance 1305 / 1305 355 / 355 Weight 60.1 kg Intake: IV 2054 1005 / 1005 D5W/1/4 NS Inj 1,000 ML @ 42 1000 / 1000 mls/hr IV.CONT .[id number] [facility] Rx# :[id number] KCl Inj 10 MEQ In D5W Inj 1,000 1005 / 1005 1005 / 1005 ML @ 125 mls/hr IV.CONT .Q8H3M [facility] Rx#:[id number] Zosyn 2.25 GM Premix 50 ML @ 50 / 50 100 mls/hr IV.SIG Q8H [facility] Rx#: [id number] Oral 0 / 0 0 / 0 Output: Urine Amount (Catheter) 750 / 750 650 / 650 Condom 750 / 750 650 / 650 Chest Tube Drainage 0 / 0 Right 0 / 0 Other: # Incontinent Voids 0 Date of Last Bowel Movement 07/19/18 07/19/18 Result Diagrams: 07/21/18 05:43 07/21/18 05:43 Objective Remarks: GENERAL: Chronically ill and jaundiced appearing 63-year-old male. SKIN: Warm and dry. HEAD: Atraumatic. Normocephalic. EYES: Pupils are unequal right 2 mm reactive left is 5 mm nonreactive ENT: Extubated, airway widely patent, no obstructive noises. NECK: Trachea midline. Supple. CARDIOVASCULAR: Regular rate and rhythm. S1, S2 no S4. RESPIRATORY: Shallow excursions with spontaneous breathing. Generally clear breath sounds. Right chest tube removed, chest x-ray good. GASTROINTESTINAL: Abdomen soft, non-tender, nondistended. Active bowel sounds. No guarding. MUSCULOSKELETAL: Extremities well perfused. Left upper extremity currently in splint wrapped in Armen bandage. Fingers below warm NEUROLOGICAL: He follows commands slowly on bilateral upper extremities and withdraws bilateral lower extremity. Pupils are unequal right 2 mm reactive left is 5 mm nonreactive Assessment and Plan - Assessment and Plan Plan: Neuro/Psych: Acute metabolic encephalopathy Anisocoria EtOH abuse Recent cocaine/opiate abuse -inhaled. Denies intravenous MVI/ folate. Patient states he inhaled cocaine 4-5 days prior to admission. Denies IV drug use. Discontinued acetaminophen and related products with elevated transaminases Stat CT of the head for unequal pupil, negative for acute findings Encephalopathy improved enough to allow extubation 07/18. Worsening encephalopathy now, check ammonia level CV: Severe sepsis Lactic acidosis Elevated troponin likely demand ischemia Right carotid artery stenosis Elevated CPK Cardiology Dr. chaudhry. No intervention planned 2D echocardiogram revealed Normal left ventricular size. Wall thickness is normal. The left ventricular systolic function is normal with an estimated ejection fraction in the range of 55-60%. Not on aspirin or heparin at this time due to thrombocytopenia Followed by vascular surgery for right carotid artery stenosis 80%. Resp: Acute hypoxemic respiratory failure Right lower lobe pneumonia with effusion Emphysematous type changes on CT neck Hyperammonemia Hypoalbuminemia Tobacco abuse Emergently intubated and placed on mechanical ventilation. PRVC/AC 07/13/2018 Incentive spirometry. Extubated 07/18 Chest tube removed 07/19, chest x-ray after with the right lung well expanded. GI: Elevated transaminases Elevated total bilirubin Poss acalc jody Hypoalbuminemia Noted CT abdomen/pelvis revealed possible early cholecystitis. Pericholecystic fluid. Ultrasound revealed negative Lundy sign. Nuclear medicine scan revealed no activity in the intrahepatic ductal compound bile duct or small bowel. 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 Patent MIC, celiac. Evaluated by gastroenterology. Needs G tube. Hepatitis panel negative. Pending ceruloplasmin, BOBBY, AMA, ASMA, SSA AMB, anti-Ronquillo, RP, scleroderma, double-stranded DNA, hemochromatosis Currently on lactulose 30 cc 3 times daily for elevated ammonia. Continue tube feeds with Nepro. Check ammonia level. Endo: Sliding scale insulin with Accu-Cheks to maintain euglycemia/every 6 hours low regimen TSH 1. Cortisol 25 Glucose control acceptable Renal: Acute kidney failure Avoid nephrotoxic medication. Discontinued vancomycin 07/11 Convert fluid to D5 water with KCl 10 mEq/L Heme: Macrocytic anemia Thrombocytopenia Coagulopathic state Follow-up on PT/INR No indication for transfusion of blood products at this time ID: MRSA bacteremia Septic shock Right lower lobe pneumonia/aspiration 2D transthoracic echocardiogram revealed no signs of endocarditis. Infectious disease following Currently on daptomycin and Zosyn. Zyvox added for gram-positive coverage for presumed pneumonia Pleural fluid studies have no evidence of infection MSK: Left posterior olecranon fracture Followed by Dr. Blanco, splint immobilized. Follow-up in 2 weeks with x-rays F/u CT left elbow FEN: Replace electrolytes as clinically indicated Access -Utilize peripheral IV. Central line if indicated Prophylaxis -GI -pantoprazole -DVT-SCD/hold off chemical DVT prophylaxis due to severe thrombocytopenia, prolonged INR Overall impression: Patient remains ill and quite lethargic. Care complicated by hepatic dysfunction, acute renal failure and sepsis. He has tolerated extubation and protects his airway adequately.
[2018-07-21] MEDS: Chlorhexidine 0.12% Oral Kit 15 ML UDC OROPHARYNG SCH ×2 (11:26→21:00)
[2018-07-21] MEDS: DAPTOmycin Inj 400 MG in Sodium Chlor 0.9% Inj 100 ML IV.SIG SCH (12:10)
--- NOTE | 2018-07-21 12:12 | P.CONPAL ---
Consult Service: Palliative Care . Requesting Physician: Roberto Hamlin Reason for Consult: a. To assist with evaluation and management of symptoms including: dyspnea; pain; encephalopathy b. To assist medical decision maker(s) with: better understanding of current medical conditions; weighing benefits/burdens of medical treatment options; making medical treatment decisions. . Primary Care Provider: No Primary Care Physician History of Present Illness History of Present Illness: Mr. Sharma is a 63 y/o male with a long history of homelessness; EtOH abuse; and tobacco abuse who presented to the emergency department at [facility] on 07/08/18 primarily complaining of nausea, chest pain, and a near syncopal episode. He also reported that he had fallen out of bed approximately a week earlier and had struck his left elbow and was concerned it might be broken. Per the emergency department clinicians note, the patient was a poor historian. Initial workup in the emergency department revealed the following: == Vital signs show temperature 99.6; pulse 93; respiratory rate 18; blood pressure 134/74; pulse oximetry 98% == Initial examination by the emergency supervisor bit and shank department noted the following : No apparent distress; skin unremarkable; HEENT unremarkable; cardiovascular unremarkable; respiratory unremarkable; abdominal unremarkable; musculoskeletal revealed pain with palpation of the left elbow with accompanying swelling. Neurological was unremarkable; psychiatric was unremarkable Initial diagnostic testing in the emergency department revealed the following: * CBC showed WBC 9.2; hemoglobin 15.3; platelet count 53; * Coagulation profile showed PT 15.7; INR 1.6 * Basic chemistry profile showed sodium 134 otherwise unremarkable * Troponin was less than 0.02 * Liver function studies show total bilirubin 3.4; AST 276; ALT 162; alkaline phosphatase 106; total protein 8.3; albumin 3.2 * Hepatitis serology was negative * Head CT showed some mild atrophy otherwise unremarkable * Urinalysis was unremarkable * Chest x-ray showed no acute cardiopulmonary disease * X-ray imaging of the elbow showed a small mildly displaced olecranon avulsion fracture with associated soft tissue swelling * CT of the abdomen pelvis showed severe fatty infiltration of the liver; apparent eddie-cholecystic fluid; fairly robust enhancement of the gallbladder mucosa all of concern of cholecystitis * Gallbladder ultrasound confirmed the pericholecystic fluid but radiologist felt the imaging did not support cholecystitis and might be on the basis of hepatocellular disease. The patient was admitted to the hospitalist service. * Syncope was further evaluated by carotid artery studies which revealed a greater than 70% stenosis of the right internal carotid artery and less than 50 % stenosis of the left internal carotid artery. F/U CT angiogram revealed 80% right ICA stenosis and emphysematous changes in the lungs. * Echocardiogram revealed normal left ventricular size with an estimated ejection fraction of 55-60%. No significant valvular disease noted. * The patient was seen by orthopedics. Dr. Blanco recommended temporary immobilization of the left elbow with a splint and then follow-up as an outpatient in his clinic in approximately 2 weeks. * HIDA scan suggested diffuse hepatocellular disease but not cholecystits. * GI was consulted -- given the imaging, they felt the pain and nausea were secondary to his liver disease. * Blood cultures taken on 07/08/18 came back revealing MRSA. On 07/09/18 the troponins began increasing first to 0.51 and then up as high as 9.95. Cardiology felt the patient had experienced a NSTEMI. Cardiac catheterization was considered, but postoponed due to other illness. On 07/10/18 the patient was transferred to the intensive care unit in critical care was consulted for persistent hypotension, increasing lactic acidosis, and declining renal function. Over the course of the next several days, creatinine climbed as high as 4.58. 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 There were concerns for an aspiration pneumonia. Patient required significant diuretic therapy. The patient was eventually extubated on 07/18/18. He continues to have significant sodium and potassium abnormalities. He remains encephalopathic. Nutrition has been an issue. Apparently, there was an early attempt to pass an OG or NG tube and there was significant bleeding. Patient has not been awake and alert enough to accommodate oral nutrition. Interventional radiology has been consulted for feeding tube placement. At the time of my visit, patient is awake in the bed. He tracks me. He is unable to answer any questions or even follow simple commands. He periodically looks quite uncomfortable with some grimacing and wincing in bed. He is unable to point or let me know where he is experiencing pain. . Function/Cognitive Trajectory: Patient is unable to provide a history. I spoke with his 2 sisters via the telephone. Between them and the medical records, it is apparent that the patient has been fighting substance abuse all of his adult life. Sisters report he has been mostly homeless over the past few years. They have attempted on at least 6 occasions to get him into rehab. They periodically find him in the vel[place] and try and give him some money and food and clothes. To their knowledge, he has not been complaining of any specific physical ailments. He could walk independently without any type of assistive device. He was appearing cognitively clear when they last saw him. They are not aware of any progressive weight loss. PMFSH - History History Provided By: Patient, Family Member (Limited history provided by his two sisters. ), Significant Other, Medical Record ([facility] ED and hospital records reviewed. ), Law Enforcement - Medical History Medical History: Medical History (Last Updated 07/21/18 @ 14:59 by Tae Garcia MD) Alcohol abuse History of MRSA infection Onset Date: ~07/10/18 Left eye injury Tobacco abuse - Surgical History Surgical History: Surgical History (Last Updated 07/21/18 @ 14:17 by Tae Garcia MD) No history of previous surgery S/P foot surgery, right - Family History Family History: Family History (Last Updated 07/21/18 @ 14:13 by Tae Garcia MD) Sister Diabetes mellitus Coronary artery disease Father Stroke Alcohol abuse Mother Dementia - Social History I have reviewed the patient's Social History: Yes - Tobacco History Second Hand Smoke Exposure: Yes Tobacco Use In Past 30 Days: Yes (Review of medical records show 1/2 to 1 ppd for most of adult life. ) Smoking Status: Current every day smoker Tobacco Type: Cigarettes Packs Per Day: 1 - Alcohol History How Often Do You Have a Drink Containing Alcohol: 4 or more times a week ( Patient frequently reported consuming 12 beers per day for much of her adult life.) - Substance Use History Substance History: Active Abuse (Urine drug screen revealed both opiates and cocaine at ER presentation on 07/08/18.) - Travel History History of Recent Travel: No Recent Travel in the [place] Within the Last 8 Weeks: No Recent Travel Out of the Country Within the Last 8 Weeks: No - Immunization History Tetanus Immunization: >5 Years Hx Influenza Vaccine This Season: No Medications and Allergies Active Medications: Active Medications Al Hydroxide/Mg Hydroxide (Milk Of Magnjeb Liq) 30 ml PO Q12H PRN PRN Reason: Mild Constipation Albuterol (Albuterol Neb (Prn)) 2.5 mg NEB Q2HR NEB PRN PRN Reason: DYSPNEA Albuterol (Duoneb Neb (Prn)) 1 ampul NEB Q2HR NEB PRN PRN Reason: SHORTNESS OF BREATH Last Admin: 07/14/18 08:20 Dose: 1 ampul Chlorhexidine Gluconate (Peridex 0.12% Oral Kit) 15 ml OROPHARYNG BID@0800, 2000 [facility] Last Admin: 07/21/18 11:26 Dose: 15 ml Flumazenil (Romazecon Inj) 0.2 mg IV.PUSH Q1M PRN PRN Reason: OVERSEDATION Haloperidol Lactate (Haldol Inj) 1 mg IV.PUSH Q15M PRN PRN Reason: for severe agitation Last Admin: 07/20/18 15:45 Dose: 1 mg Hydralazine HCl (Apresoline Inj) 20 mg IV.PUSH Q4H PRN PRN Reason: Sys Bp Greater Than 165 [facility] Last Admin: 07/20/18 14:22 Dose: 20 mg Daptomycin 400 mg/ Sodium (Chloride) 100 mls @ 200 mls/hr IV.SIG Q48H [facility] Stop: 07/23/18 23:00 Last Infusion: 07/19/18 12:44 Dose: Infused Potassium Chloride 10 meq/ (Dextrose) 1,005 mls @ 125 mls/hr IV.CONT .Q8H3M [facility] Last Admin: 07/21/18 10:23 Dose: 125 mls/hr Potassium Chloride (Kcl 20 Meq Premix Inj) 20 meq in 100 mls @ 50 mls/hr IV.SIG Q2H [facility] Stop: 07/21/18 17:29 Last Admin: 07/21/18 10:23 Dose: 50 mls/hr Labetalol HCl (Trandate Inj) 10 mg IV.PUSH Q1H PRN PRN Reason: Sbp>165, Dbp>90, Hr>65 Lactulose (Lactulose Liq) 30 ml PO DAILY PRN PRN Reason: SEVERE CONSITIPATION Lactulose (Lactulose Liq) 30 ml PO TID [facility] Last Admin: 07/21/18 08:35 Dose: Not Given Lorazepam (Ativan) 1 mg PO Q4H PRN PRN Reason: for CIWA 8-10 Lorazepam (Ativan) 2 mg PO Q2H PRN PRN Reason: for CIWA 11-14 Lorazepam (Ativan Inj) 2 mg IV.PUSH Q2H PRN PRN Reason: for CIWA 11-14 Last Admin: 07/20/18 11:13 Dose: 2 mg Lorazepam (Ativan Inj) 2 mg IV.PUSH Q1H PRN PRN Reason: for CIWA 15-20 Last Admin: 07/11/18 21:37 Dose: 2 mg Lorazepam (Ativan Inj) 2 mg IV.PUSH Q15M PRN PRN Reason: for CIWA > 20 Lorazepam (Ativan Inj) 1 mg IV.PUSH Q4H PRN PRN Reason: for CIWA 8-10 Last Admin: 07/20/18 00:45 Dose: 1 mg Miscellaneous Medication () 1 each OROPHARYNG 0000,0400,1200,1600 [facility] Last Admin: 07/21/18 03:23 Dose: 1 each Morphine Sulfate (Morphine Inj) 2 mg IV.PUSH Q4H PRN PRN Reason: BREAKTHROUGH PAIN Last Admin: 07/21/18 10:45 Dose: 2 mg Mupirocin (Bactroban 2% Nasal Oint) 1 applicatio EACH NARE BID [facility] Last Admin: 07/21/18 08:35 Dose: 1 applicatio Naloxone HCl (Narcan Inj) 0.4 mg IV.PUSH UNSCH PRN PRN Reason: SEE LABEL COMMENTS Ondansetron HCl (Zofran Inj) 4 mg IV.PUSH Q6H PRN PRN Reason: NAUSEA OR VOMITING Pantoprazole Sodium (Protonix Inj) 40 mg IV.PUSH DAILY [facility] Last Admin: 07/21/18 08:34 Dose: 40 mg Sennosides (Senokot) 17.2 mg PO Q12H PRN PRN Reason: Moderate Constipation Sodium Chloride (Ns Flush) 2 ml IV.FLUSH PRN PRN PRN Reason: FLUSH AFTER USING IV ACCESS Last Admin: 07/20/18 20:10 Dose: 2 ml Sodium Chloride (Ns Flush) 2 ml IV.FLUSH BID [facility] Last Admin: 07/21/18 08:35 Dose: 2 ml . Allergies Allergy/AdvReac Type Severity Reaction Status Date / Time No Known Allergies Allergy Verified 07/08/18 12:30 Home Medications Medication Instructions Recorded Confirmed Type No Known Home Medications 07/08/18 07/08/18 History Advance Directives Living Will: No Healthcare Surrogate: No Power of Durable Medical Equipment Repairer: No Documented care wishes: No written documentation of healtchare wishes/preferences . Today's verbally stated goals: Patient unable to verbally state healthcare goals/wishes. . Family/friends goals: Both sisters acting as equal proxies feel that patient's healthcare goals and preferences would best be honored by pursuing aggressive measures short of resuscitation efforts. . Ethical and Legal Issues: Patient is currently incapacitated to make his own healthcare decisions. Unclear if he will eventually be able to make such healthcare decisions. . Physical Exam Vital Signs: Vital Signs - 24 hr 07/20/18 12:00 07/20/18 13:00 07/20/18 13:19 Temperature 98.3 F Pulse Rate 75 74 Respiratory Rate 18 18 Blood Pressure 169/107 H 163/72 H 161/70 H Pulse Oximetry 98 98 07/20/18 13:43 07/20/18 14:00 07/20/18 14:19 Temperature Pulse Rate 70 72 68 Respiratory Rate 15 16 14 Blood Pressure 160/73 H 172/78 H 164/74 H Pulse Oximetry 100 99 99 07/20/18 14:25 07/20/18 15:00 07/20/18 16:00 Temperature Pulse Rate 68 77 74 Respiratory Rate 17 17 15 Blood Pressure 164/74 H 165/72 H 173/75 H Pulse Oximetry 99 98 98 07/20/18 17:00 07/20/18 18:00 07/20/18 18:03 Temperature 98.4 F 98.3 F Pulse Rate 73 80 71 Respiratory Rate 15 24 24 Blood Pressure 168/70 H 176/76 H 164/70 H Pulse Oximetry 97 98 07/20/18 19:00 18 20:00 18 21:00 Temperature 97.9 F Pulse Rate 68 69 68 Respiratory Rate 17 17 14 Blood Pressure 167/74 H 158/69 H 169/76 H Pulse Oximetry 99 98 97 07/20/18 22:00 18 22:09 07/20/18 23:00 Temperature Pulse Rate 73 68 68 Respiratory Rate 26 H 14 17 Blood Pressure 196/86 H 160/64 H 161/74 H Pulse Oximetry 98 100 98 07/21/18 00:00 07/21/18 01:00 07/21/18 02:00 Temperature 98.9 F Pulse Rate 74 69 72 Respiratory Rate 20 17 18 Blood Pressure 165/75 H 162/72 H 166/72 H Pulse Oximetry 98 100 99 07/21/18 03:00 07/21/18 04:00 07/21/18 05:00 Temperature Pulse Rate 69 69 74 Respiratory Rate 15 16 18 Blood Pressure 159/79 H 157/73 H 154/72 H Pulse Oximetry 95 98 99 07/21/18 06:00 07/21/18 06:12 07/21/18 06:14 Temperature Pulse Rate 76 74 75 Respiratory Rate 16 18 18 Blood Pressure 162/74 H 177/76 H 169/72 H Pulse Oximetry 94 L 96 94 L 07/21/18 07:00 07/21/18 08:00 07/21/18 09:00 Temperature 97.5 F L Pulse Rate 94 H 87 90 Respiratory Rate 27 H 19 25 H Blood Pressure 159/71 H 143/69 H Pulse Oximetry 90 L 97 97 07/21/18 10:00 07/21/18 10:07 07/21/18 11:00 Temperature Pulse Rate 89 86 Respiratory Rate 25 H 19 Blood Pressure 143/63 H 127/58 L Pulse Oximetry 96 98 100 07/21/18 11:26 Temperature Pulse Rate Respiratory Rate 19 Blood Pressure Pulse Oximetry . I&O: Intake & Output 07/19/18 07/20/18 07/21/18 07/22/18 06:59 06:59 06:59 06:59 Intake Total 1550 / 1550 1750 / 1750 3060 / 3060 1005 / 1005 Output Total 4695 / 4695 2100 / 2100 1400 / 1400 Balance -3145 / -3145 -350 / -350 1660 / 1660 1005 / 1005 Weight 62.3 kg 61.7 kg 60.1 kg . Physical Exam: CONSTITUTIONAL/GENERAL: Adequately nourished male, jaundiced, restrained, unable to answer questions in an SICU bed. TUBES/LINES/DRAINS: Peripheral IV; nasal cannula 02; condom catheter; SICDs; 4- point soft restraints; dressing LUE. SKIN: Jaundiced. Ecchymoses on upper extremities. No wounds seen anteriorly. Skin temperature appropriate. Not diaphoretic. HEAD: Atraumatic. Normocephalic.. Extraocular motions intact. Sclerae slightly ecteric. No injection or drainage. Fundi not examined. ENT: Unable to evaluate hearing. Edentulous. Coated tongue. Mucous membranes dry. No bleeding or purulent drainage. Throat without visible erythema, exudates, masses, or lesions. NECK: Trachea midline. Supple, nontender. No palpable thyroid enlargement or nodularity. CARDIOVASCULAR: Regular rate and rhythm without murmurs, gallops, or rubs. No JVD. Peripheral pulses symmetric. RESPIRATORY/CHEST: Symmetric, unlabored respirations. Scattered faint bilateral ronchi. Breath sounds equal bilaterally. No wheezing. GASTROINTESTINAL: Abdomen soft, non-tender, nondistended. No hepato-splenomegaly , or palpable masses. No guarding. Bowel sounds present. GENITOURINARY: Without palpable bladder distension. Condom catheter in place. MUSCULOSKELETAL: LUE in dressing and splint. Extremities otherwise without clubbing, cyanosis, or edema. No calf tenderness. No mottling or clubbing. LYMPHATICS: No palpable cervical or supraclavicular adenopathy. NEUROLOGICAL: Awake and tracks me. Unable to respond to my questions. Moves all extremities. Unable to follow commands. PSYCHIATRIC: Frequent moaning. Restless. Diagnostic Tests Laboratory: Laboratory Results - last 72 hr 07/18/18 07/19/18 07/19/18 22:08 05:30 09:57 WBC RBC Hgb Hct MCV MCH MCHC RDW Plt Count MPV Prelim Diff (Auto) Neut % (Auto) Lymph % (Auto) [place] % (Auto) Eos % (Auto) Baso % (Auto) Neut # (Auto) Lymph # (Auto) [place] # (Auto) Eos # (Auto) Baso # (Auto) WBC Differential Diff Scan Differential Comment Platelet Estimate Platelet Morphology Target Cells PT INR Sodium 158 H* Potassium 2.9 L* 3.4 L Chloride 112 H Carbon Dioxide 35.5 H Anion Gap 11 BUN 74 H Creatinine 2.24 H Estimated GFR 30 L POC Glucose 109 Random Glucose 115 H Calcium 9.1 Phosphorus 2.8 Magnesium 1.7 Total Bilirubin Direct Bilirubin Indirect Bilirubin AST ALT Alkaline Phosphatase Ammonia Total Protein Albumin 3.2 L 07/19/18 07/20/18 07/20/18 13:01 05:20 05:20 WBC RBC Hgb Hct MCV MCH MCHC RDW Plt Count MPV Prelim Diff (Auto) Neut % (Auto) Lymph % (Auto) [place] % (Auto) Eos % (Auto) Baso % (Auto) Neut # (Auto) Lymph # (Auto) [place] # (Auto) Eos # (Auto) Baso # (Auto) WBC Differential Diff Scan Differential Comment Platelet Estimate Platelet Morphology Target Cells PT 18.0 H INR 1.8 Sodium 162 H* Potassium 2.8 L* 3.2 L Chloride 119 H Carbon Dioxide 36.4 H Anion Gap 7 BUN 65 H Creatinine 1.82 H Estimated GFR 38 L POC Glucose Random Glucose 118 H Calcium 8.9 Phosphorus 2.8 Magnesium Total Bilirubin 9.8 H Direct Bilirubin 7.5 H Indirect Bilirubin 2.3 H AST 150 H ALT 205 H Alkaline Phosphatase 88 Ammonia Total Protein 7.2 D Albumin 3.1 L 07/20/18 07/20/18 07/21/18 05:20 07:33 05:43 WBC RBC Hgb Hct MCV MCH MCHC RDW Plt Count MPV Prelim Diff (Auto) Neut % (Auto) Lymph % (Auto) [place] % (Auto) Eos % (Auto) Baso % (Auto) Neut # (Auto) Lymph # (Auto) [place] # (Auto) Eos # (Auto) Baso # (Auto) WBC Differential Diff Scan Differential Comment Platelet Estimate Platelet Morphology Target Cells PT 17.6 H INR 1.7 Sodium Potassium 3.3 L Chloride Carbon Dioxide Anion Gap BUN Creatinine Estimated GFR POC Glucose Random Glucose Calcium Phosphorus Magnesium Total Bilirubin Direct Bilirubin Indirect Bilirubin AST ALT Alkaline Phosphatase Ammonia 11 Total Protein Albumin 07/21/18 07/21/18 05:43 05:43 WBC 10.3 RBC 3.56 L Hgb 12.2 L Hct 36.4 L MCV 102.3 H MCH 34.3 H MCHC 33.5 RDW 15.4 Plt Count 57 L MPV 11.6 H Prelim Diff (Auto) Slide review pending Neut % (Auto) 66.8 Lymph % (Auto) 18.4 [place] % (Auto) 9.9 H Eos % (Auto) 3.5 Baso % (Auto) 1.4 Neut # (Auto) 6.9 Lymph # (Auto) 1.9 [place] # (Auto) 1.0 H Eos # (Auto) 0.4 Baso # (Auto) 0.1 WBC Differential . Diff Scan Auto diff confirmed Differential Comment . Platelet Estimate Low L Platelet Morphology Enlarged H Target Cells 1+ H PT INR Sodium 160 H* Potassium 2.9 L* Chloride 118 H Carbon Dioxide 36.2 H Anion Gap 6 BUN 47 H Creatinine 1.37 H Estimated GFR 53 L POC Glucose Random Glucose 121 H Calcium 9.0 Phosphorus Magnesium Total Bilirubin 8.7 H Direct Bilirubin Indirect Bilirubin AST 153 H ALT 190 H Alkaline Phosphatase 87 Ammonia Total Protein 6.9 Albumin 2.9 L Result Diagrams: 07/21/18 05:43 07/21/18 05:43 Microbiology: Microbiology 07/13/18 08:55 Fungal Smear - Final Fluid - Pleural fluid No fungal elements seen Fungal Culture - Preliminary No growth in 1 week 07/13/18 08:55 Acid Fast Bacilli Smear - Final Fluid - Pleural fluid No acid fast bacilli seen Mycobacterial Culture - Preliminary No growth in 1 week 07/15/18 11:45 Gram Stain - Final Fluid - Pleural fluid Body Fluid Culture - Final No growth in 72 hours (aerobically and anaerobically) Blood cultures were positive for staph aureus MRSA on 07/08/18. . Imaging: Head CT 07/08/18 17:06 CONCLUSION: 1. No acute intracranial abnormality. 2. Mild Atrophy. . Chest X-Ray 07/08/18 17:42 CONCLUSION: No evidence of acute cardiopulmonary disease. Elbow X-Ray 07/08/18 18:01 CONCLUSION: 1. Small, mildly displaced olecranon avulsion fracture fragments of the triceps insertion with associated soft tissue swelling. 2. Joint effusion. No perceptible intra-articular fracture. No subluxation. Abdomen/Pelvis CT 07/08/18 18:02 CONCLUSION: 1. Severe fatty infiltration of the liver. 2. Apparent pericholecystic fluid. Also fairly robust enhancement of the gallbladder mucosa. Please correlate clinically for any evidence of cholecystitis. No stones or ductal dilatation demonstrated. Gallbladder Ultrasound 07/08/18 18:53 CONCLUSION: 1. Small, nonspecific pericholecystic fluid without stones, wall thickening or sonographic Lundy's sign. The fluid may be on the basis of hepatocellular disease. The ultrasound does not support acute cholecystitis. 2. Fatty infiltrated and mildly enlarged liver. Carotid Doppler Study 07/09/18 00:00 CONCLUSION: 1. Right Internal Carotid Artery: Findings indicate >70% stenosis, but less than near occlusion. 2. Left Internal Carotid Artery: Findings indicate <50% stenosis. Chest X-Ray 07/09/18 00:39 CONCLUSION: Negative examination. Hepatobiliary Scan Nuclear Medicine 07/09/18 14:22 CONCLUSION: 1. No activity in intrahepatic ducts, common duct or small bowel. Considerations include include acute obstruction of the common duct and diffuse hepatocellular disease. 2. CT scan shows no dilatation of the common duct or intrahepatic ducts. Diffuse hepatocellular disease is suspected. Chest X-Ray 07/10/18 00:00 CONCLUSION: No acute cardiopulmonary abnormality is identified. Neck CTA 07/10/18 00:00 CONCLUSION: 1. 80% stenosis of the proximal right ICA. Left carotid and bilateral vertebral arteries are patent. 2. Emphysematous changes. Abdomen/Pelvis CTA 07/10/18 00:08 CONCLUSION: 1. 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 The SMA and MIC are patent. 2. Hepatic steatosis. 3. Emphysematous changes. Abdomen/Bladder Ultrasound 07/11/18 00:00 CONCLUSION: 1. Normal ultrasound appearance of the kidneys. 2. Other findings include hepatic steatosis and left pleural effusion. Elbow CT 07/11/18 00:00 CONCLUSION: 1. Small fracture fragment off the olecranon. 2. There is subcutaneous edema identified posterior to the elbow with soft tissue swelling. Chest X-Ray 07/12/18 07:48 CONCLUSION: Acute interstitial vascular congestion with right-sided airspace disease and suspected small bilateral effusions. Head CT 07/13/18 00:00 CONCLUSION: 1. No acute intracranial abnormality. 2. Atrophy. . Chest X-Ray 07/13/18 07:26 CONCLUSION: Interval placement of endotracheal tube which is in appropriate position. Generalized interstitial vascular congestion with bilateral airspace disease and bilateral effusions most characteristic of congestive heart failure. Chest X-Ray 07/13/18 08:32 CONCLUSION: Improved aeration and decreased opacity in right lung base following chest tube placement. No evidence of pneumothorax. No other significant change. Chest X-Ray 07/15/18 00:00 CONCLUSION: 1. Interval decrease in left pleural effusion with no pneumothorax. 2. The small bore right-sided chest tube remains in place. Chest X-Ray 07/15/18 08:57 CONCLUSION: 1. No significant change. Hazy opacity remains in the left lung 2. Mild patchy opacity remains at the right lung base. Chest X-Ray 07/17/18 00:00 CONCLUSION: Persistent patchy airspace disease No evidence of pneumothorax Endotracheal tube and right chest tube are in stable position. Chest X-Ray 07/20/18 04:00 CONCLUSION: Underlying interstitial disease. Left base atelectasis or consolidation which appears to be improving. . Procedures: Intubation/mechanical ventilation . Patient/Family Conference Present at Family Conference: Sisters -- Aspen Raymundo and Jovita Ventura . Family Conference Time: 35 (minutes) Family Conference Location: Telephone Issues Discussed: * Palliative care role, purpose, approach * Additional medical, psychosocial, and spiritual history * Patients general health, functional status, and cognitive changes in the months leading up to the current hospitalization * Family understanding of the current medical problems * Family understanding of prognosis * Patients goals of care as best understood from conversations and/or values * Current medical treatment options and benefits/burdens of those options * Likely scenarios comparing ongoing aggressive care with a transition to comfort measures only * Questions answered to the best of my ability * Resuscitation status * Palliative care contact information provided * . Assessment and Plan - Disease Oriented Problem List (1) NSTEMI (non-ST elevated myocardial infarction) (2) Liver failure (3) Elevated troponin level (4) Acute kidney injury (5) Hypernatremia (6) Respiratory failure (7) Bacteremia - Symptom Scale (1) Dyspnea 0-10 Scale: Unable to quantify (2) Pain 0-10 Scale: Unable to quantify (3) Encephalopathy 0-10 Scale: Unable to quantify Pertinent Non-Medical Issues: Psychosocial: HS education. Recurrent homelessness. Polysubstance abuse. . 2 adult children he is estranged from with no contact info. Father . Mother demented and at [facility]. Only two siblings -- both live locally and are serving as proxies. Spiritual: Zoroastrianism background. Protestant and spirituality have not played an important role in his life. Legal: Patient currently incapacitated to make his own health care decisions. Uncertain if he will re-gain capacity. Two sisters are the proxy decision makers. Ethical issues impacting care: No known ethical issues. . Important Contacts: Aspen Raymundo (sister and co-proxy) [phone] Jovita Whitehead (sister and co-proxy) [phone] . Prognosis: Pt has struggled with EtOH abuse and tobacco abuse his entire life. Urine drug screen at time of admission indicates problems with street drugs as well -- he was positive for opiates and cocaine. He has been unable to work and has been mostly homeless for years. He presented with a fractured left elbow, chest pain, nausea and has been found to have multiple problems including -- left elbow fx; MRSA sepsis; hepatic failure; acute kidney injury; NTSTEMI; encephlopathy; pneumonia; respiratory failure requiring intubation/mechanical ventilation. Though he has been successfully weaned from the vent and has had improvement in his kidney function and improvement in sepsis; he remains quite encephalopathic. He continues to have electrolyte issues and we are having difficulty addressing nutrition. Though he certainly has the potential for surviving the hospitalization, it is unlikely he will be able to return to independent living and he has a very high likelihood of further complications and setbacks. . Plan: == Code Status: NO CODE per telephone conversation with both sisters (Aspen Nuñez and Jovita Whitehead) on 07/21/18. == Decision Making: Patient is incapacitated at this time to make his own health care decisions. There are no written advance directives. Patient is . He has adult children believed to be in [place]. The patient has two siblings -- Aspen Nuñez and Jovita Whitehead. Both live locally and are the proxy decision makers. == Goals of medical treatments: Patient is incapacitated at this time to make his own health care decisions.It is uncertain if he will regain capacity to make his own health care decisions. At this time, his health care proxies believe the patient would want aggressive care short of resuscitation. They feel the patient would not want a life where he was dependent such as in a snf. == Symptoms: * Pain: Patient is appearing very uncomfortable (grimacing/moaning/restless) but is unable to rate,locate, or qualify pain. Possible sources of pain include : his left elbow fracture; prolonged bedbound status; restraints; condom catheter; STDs; venous access lines. He is receiving morphine 2 mg iv push q 4 hours prn * Dyspnea: Currently off the vent. Tolerating nasal cannula 02. Resolving pneumonia. * Encephalopathy: Probably multi-factorial -- hepatic encephalopathy; electrolyte abnormalities; infection; delirium. * Dysphagia == Two sisters are equal proxies and BOTH should be consulted for decision making and consents. * Both sisters are now aware of the patient's problems They are aware that the patient has had several organ systems (cardiac; liver; kidneys; lungs; brain) that have been impacted and even though we have had some improvement in some areas, he remains critically ill and at risk for relapse. * Sisters agree to feeding tube placement. == Recommend lactulose when PEG tube is placed to address the component of his encephalopathy that might be alcohol based. == Agree with current opioid analgesic regimen. The morphine will have a longer than usual duration of action due to kidney function. Want to avoid over sedation with opioids as it's important to be able to monitor his neurologic function. == Should patient recover capacity to make his own medical decisions, will want to have him assign a health care surrogate and discuss goals. . Appreciation Thank you for the opportunity to participate in the care of Octavio Sharma. . Attestation Attestation: To help prompt me to consider important information that might be impacting today's encounter and assessment, information from prior notes written by myself or my colleagues may have been "brought forward" into today's note. My signature on this note, however, is an attestation that I personally performed the exam, history, and/or decision-making noted today, and, unless otherwise indicated, the interactions with patient, family, and staff as well as the review of records all occurred today. I also attest that the listed assessment and stated plan reflect my best clinical judgment today based on the combination of historical information, prior notes, and today's exam/ interactions. When time spent is documented, it refers only to time spent today by the signer, or if indicated, combined time spent today by collaborating physician/nurse practitioner. .
--- NOTE | 2018-07-21 13:57 | P.PNCA ---
Subjective Interval history: Patient does not answer any questions at this time. Patient does not appear to be in any acute distress. Medications and Allergies Allergies Allergy/AdvReac Type Severity Reaction Status Date / Time No Known Allergies Allergy Verified 07/08/18 12:30 Home Medications Medication Instructions Recorded Confirmed Type No Known Home Medications 07/08/18 07/08/18 History Active Medications: Active Medications Al Hydroxide/Mg Hydroxide (Milk Of Magnjeb Liq) 30 ml PO Q12H PRN PRN Reason: Mild Constipation Albuterol (Albuterol Neb (Prn)) 2.5 mg NEB Q2HR NEB PRN PRN Reason: DYSPNEA Albuterol (Duoneb Neb (Prn)) 1 ampul NEB Q2HR NEB PRN PRN Reason: SHORTNESS OF BREATH Last Admin: 07/14/18 08:20 Dose: 1 ampul Chlorhexidine Gluconate (Peridex 0.12% Oral Kit) 15 ml OROPHARYNG BID@0800, 2000 [facility] Last Admin: 07/21/18 11:26 Dose: 15 ml Flumazenil (Romazecon Inj) 0.2 mg IV.PUSH Q1M PRN PRN Reason: OVERSEDATION Haloperidol Lactate (Haldol Inj) 1 mg IV.PUSH Q15M PRN PRN Reason: for severe agitation Last Admin: 07/20/18 15:45 Dose: 1 mg Hydralazine HCl (Apresoline Inj) 20 mg IV.PUSH Q4H PRN PRN Reason: Sys Bp Greater Than 165 Mmhg Last Admin: 07/20/18 14:22 Dose: 20 mg Daptomycin 400 mg/ Sodium (Chloride) 100 mls @ 200 mls/hr IV.SIG Q48H [facility] Stop: 07/23/18 23:00 Last Admin: 07/21/18 12:10 Dose: 200 mls/hr Potassium Chloride 10 meq/ (Dextrose) 1,005 mls @ 125 mls/hr IV.CONT .Q8H3M [facility] Last Admin: 07/21/18 10:23 Dose: 125 mls/hr Potassium Chloride (Kcl 20 Meq Premix Inj) 20 meq in 100 mls @ 50 mls/hr IV.SIG Q2H [facility] Stop: 07/21/18 17:29 Last Admin: 07/21/18 12:11 Dose: 50 mls/hr Labetalol HCl (Trandate Inj) 10 mg IV.PUSH Q1H PRN PRN Reason: Sbp>165, Dbp>90, Hr>65 Lactulose (Lactulose Liq) 30 ml PO DAILY PRN PRN Reason: SEVERE CONSITIPATION Lactulose (Lactulose Liq) 30 ml PO TID [facility] Last Admin: 07/21/18 08:35 Dose: Not Given Lorazepam (Ativan) 1 mg PO Q4H PRN PRN Reason: for CIWA 8-10 Lorazepam (Ativan) 2 mg PO Q2H PRN PRN Reason: for CIWA 11-14 Lorazepam (Ativan Inj) 2 mg IV.PUSH Q2H PRN PRN Reason: for CIWA 11-14 Last Admin: 07/20/18 11:13 Dose: 2 mg Lorazepam (Ativan Inj) 2 mg IV.PUSH Q1H PRN PRN Reason: for CIWA 15-20 Last Admin: 07/11/18 21:37 Dose: 2 mg Lorazepam (Ativan Inj) 2 mg IV.PUSH Q15M PRN PRN Reason: for CIWA > 20 Lorazepam (Ativan Inj) 1 mg IV.PUSH Q4H PRN PRN Reason: for CIWA 8-10 Last Admin: 07/20/18 00:45 Dose: 1 mg Miscellaneous Medication () 1 each OROPHARYNG 0000,0400,1200,1600 [facility] Last Admin: 07/21/18 03:23 Dose: 1 each Morphine Sulfate (Morphine Inj) 2 mg IV.PUSH Q4H PRN PRN Reason: BREAKTHROUGH PAIN Last Admin: 07/21/18 10:45 Dose: 2 mg Mupirocin (Bactroban 2% Nasal Oint) 1 applicatio EACH NARE BID [facility] Last Admin: 07/21/18 08:35 Dose: 1 applicatio Naloxone HCl (Narcan Inj) 0.4 mg IV.PUSH UNSCH PRN PRN Reason: SEE LABEL COMMENTS Ondansetron HCl (Zofran Inj) 4 mg IV.PUSH Q6H PRN PRN Reason: NAUSEA OR VOMITING Pantoprazole Sodium (Protonix Inj) 40 mg IV.PUSH DAILY [facility] Last Admin: 07/21/18 08:34 Dose: 40 mg Sennosides (Senokot) 17.2 mg PO Q12H PRN PRN Reason: Moderate Constipation Sodium Chloride (Ns Flush) 2 ml IV.FLUSH PRN PRN PRN Reason: FLUSH AFTER USING IV ACCESS Last Admin: 07/20/18 20:10 Dose: 2 ml Sodium Chloride (Ns Flush) 2 ml IV.FLUSH BID [facility] Last Admin: 07/21/18 08:35 Dose: 2 ml Physical Exam Vital signs: Vital Signs 07/20/18 14:00 07/20/18 14:19 07/20/18 14:25 Temperature Pulse Rate 72 68 68 Respiratory Rate 16 14 17 Blood Pressure 172/78 H 164/74 H 164/74 H Pulse Oximetry 99 99 99 07/20/18 15:00 07/20/18 16:00 07/20/18 17:00 Temperature 98.4 F Pulse Rate 77 74 73 Respiratory Rate 17 15 15 Blood Pressure 165/72 H 173/75 H 168/70 H Pulse Oximetry 98 98 07/20/18 18:00 07/20/18 18:03 07/20/18 19:00 Temperature 98.3 F Pulse Rate 80 71 68 Respiratory Rate 24 24 17 Blood Pressure 176/76 H 164/70 H 167/74 H Pulse Oximetry 97 98 99 07/20/18 20:00 07/20/18 21:00 07/20/18 22:00 Temperature 97.9 F Pulse Rate 69 68 73 Respiratory Rate 17 14 26 H Blood Pressure 158/69 H 169/76 H 196/86 H Pulse Oximetry 98 97 98 07/20/18 22:09 07/20/18 23:00 07/21/18 00:00 Temperature 98.9 F Pulse Rate 68 68 74 Respiratory Rate 14 17 20 Blood Pressure 160/64 H 161/74 H 165/75 H Pulse Oximetry 100 98 98 07/21/18 01:00 07/21/18 02:00 07/21/18 03:00 Temperature Pulse Rate 69 72 69 Respiratory Rate 17 18 15 Blood Pressure 162/72 H 166/72 H 159/79 H Pulse Oximetry 100 99 95 07/21/18 04:00 07/21/18 05:00 07/21/18 06:00 Temperature Pulse Rate 69 74 76 Respiratory Rate 16 18 16 Blood Pressure 157/73 H 154/72 H 162/74 H Pulse Oximetry 98 99 94 L 07/21/18 06:12 07/21/18 06:14 07/21/18 07:00 Temperature Pulse Rate 74 75 94 H Respiratory Rate 18 18 27 H Blood Pressure 177/76 H 169/72 H Pulse Oximetry 96 94 L 90 L 07/21/18 08:00 07/21/18 09:00 07/21/18 10:00 Temperature 97.5 F L Pulse Rate 87 90 89 Respiratory Rate 19 25 H 25 H Blood Pressure 159/71 H 143/69 H 143/63 H Pulse Oximetry 97 97 96 07/21/18 10:07 07/21/18 11:00 07/21/18 11:26 Temperature Pulse Rate 86 Respiratory Rate 19 19 Blood Pressure 127/58 L Pulse Oximetry 98 100 07/21/18 12:00 07/21/18 13:00 Temperature 97.7 F Pulse Rate 83 82 Respiratory Rate 18 18 Blood Pressure 158/72 H 164/75 H Pulse Oximetry 100 98 Intake & Output 07/20/18 07/21/18 07/21/18 18:59 06:59 18:59 Intake Total 2055 / 2055 1005 / 1005 1105 / 1105 Output Total 750 / 750 650 / 650 Balance 1305 / 1305 355 / 355 1105 / 1105 Weight 60.1 kg Intake: IV 2054 / 5 1005 / 1005 1105 / 1105 D5W/1/4 NS Inj 1,000 ML @ 42 1000 / 1000 mls/hr IV.CONT .[id number] [facility] Rx# :[id number] KCl Inj 10 MEQ In D5W Inj 1,000 1005 / 1005 1005 / 1005 1005 / 1005 ML @ 125 mls/hr IV.CONT .Q8H3M [facility] Rx#:[id number] Zosyn 2.25 GM Premix 50 ML @ 50 / 50 100 mls/hr IV.SIG Q8H [facility] Rx#: [id number] KCl 20 mEq Premix Inj 20 meq In 100 / 100 100 ml @ 50 mls/hr IV.SIG Q2H [facility] Rx#:[id number] Oral 0 / 0 0 / 0 Output: Urine Amount (Catheter) 750 / 750 650 / 650 Condom 750 / 750 650 / 650 Chest Tube Drainage 0 / 0 Right 0 / 0 Other: # Incontinent Voids 0 Date of Last Bowel Movement 07/19/18 07/19/18 07/19/18 - Constitutional no acute distress - Routine HEENT Exam Head: Present: normocephalic ENT: Present: mucous membranes moist Comments: chronically dilated left pupil - Routine Neck Exam Present: supple - Routine Respiratory Exam Present: rhonchi Comments: rhonchi throughout upper and lower lobes. - Routine Cardiovascular Exam Present: S1, S2. Absent: murmur, gallop, rubs - Routine Abdominal Exam Present: normoactive bowel sounds - Routine Extremities Exam Present: pulses intact, normal capillary refill. Absent: cyanosis, clubbing, edema, full ROM - Routine Skin Exam Present: intact - Routine Neurological Exam Present: altered mental status - Detailed Neurological Exam: Coma Scale Eye Opening: Spontaneous Verbal Response: None Motor Response: None Tamera Coma Scale Total: 6 - Routine Psychiatric Exam Present: unable to assess - Urinary Catheter Management Indwelling Urethral Catheter Cath placed during this visit: yes, but has since been removed by the nurse Reason for continuing: Decision to DC catheter Insertion date: 07/12/18 Insertion time: 07:45 Removal date: 07/19/18 Removal time: 10:45 Condom Cath placed during this visit: yes Reason for continuing: Not indwelling catheter Insertion date: 07/19/18 Insertion time: 10:50 Results 07/21/18 05:43 07/21/18 05:43 Cardiac Enzymes 07/20/18 07/21/18 Range/Units 05:20 05:43 AST 150 H 153 H (15-37) U/L Coagulation 07/20/18 07/21/18 Range/Units 05:20 05:43 PT 18.0 H 17.6 H (9.8-11.6) sec CBC 07/21/18 Range/Units 05:43 WBC 10.3 (4.0-11.0) th/mm3 RBC 3.56 L (4.50-5.90) mil/mm3 Hgb 12.2 L (13.0-17.0) gm/dL Hct 36.4 L (39.0-51.0) % Plt Count 57 L (150-450) th/mm3 Neut # (Auto) 6.9 (1.8-7.7) th/mm3 Lymph # (Auto) 1.9 (1.0-4.8) th/mm3 [place] # (Auto) 1.0 H (0.0-0.9) th/mm3 Eos # (Auto) 0.4 (0.0-0.4) th/mm3 Baso # (Auto) 0.1 (0.0-0.2) th/mm3 Comprehensive Metabolic Panel 07/19/18 07/20/18 07/20/18 Range/Units 13:01 05:20 05:20 Sodium 162 H* (136-145) meq/L Potassium 2.8 L* 3.2 L 3.3 L (3.5-5.1) meq/L Chloride 119 H (98-107) meq/L Carbon Dioxide 36.4 H (21.0-32.0) meq/L BUN 65 H (7-18) mg/dL Creatinine 1.82 H (0.60-1.30) mg/dL Calcium 8.9 (8.5-10.1) mg/dL Direct Bilirubin 7.5 H (0.0-0.2) mg/dL Indirect Bilirubin 2.3 H (0.0-0.8) mg/dL AST 150 H (15-37) U/L ALT 205 H (12-78) U/L Alkaline Phosphatase 88 (45-117) U/L Total Protein 7.2 D (6.4-8.2) g/dL Albumin 3.1 L (3.4-5.0) g/dL 07/21/18 Range/Units 05:43 Sodium 160 H* (136-145) meq/L Potassium 2.9 L* (3.5-5.1) meq/L Chloride 118 H (98-107) meq/L Carbon Dioxide 36.2 H (21.0-32.0) meq/L BUN 47 H (7-18) mg/dL Creatinine 1.37 H (0.60-1.30) mg/dL Calcium 9.0 (8.5-10.1) mg/dL Direct Bilirubin (0.0-0.2) mg/dL Indirect Bilirubin (0.0-0.8) mg/dL AST 153 H (15-37) U/L ALT 190 H (12-78) U/L Alkaline Phosphatase 87 (45-117) U/L Total Protein 6.9 (6.4-8.2) g/dL Albumin 2.9 L (3.4-5.0) g/dL Intake and Output 07/20/18 07/21/18 07/21/18 22:59 06:59 14:59 Intake Total 2004 1005 / 1005 1105 / 1105 Output Total 750 / 750 650 / 650 Balance 1255 / 1255 355 / 355 1105 / 1105 Intake: IV 2004 1005 / 1005 1105 / 1105 D5W/1/4 NS Inj 1,000 ML @ 42 1000 / 1000 mls/hr IV.CONT .[id number] [facility] Rx# :[id number] KCl Inj 10 MEQ In D5W Inj 1,000 1005 / 1005 1005 / 1005 1005 / 1005 ML @ 125 mls/hr IV.CONT .Q8H3M [facility] Rx#:[id number] KCl 20 mEq Premix Inj 20 meq In 100 / 100 100 ml @ 50 mls/hr IV.SIG Q2H [facility] Rx#:[id number] Oral 0 / 0 0 / 0 Output: Urine Amount (Catheter) 750 / 750 650 / 650 Condom 750 / 750 650 / 650 Chest Tube Drainage 0 / 0 Right 0 / 0 Other: # Incontinent Voids 0 Date of Last Bowel Movement 07/19/18 07/19/18 07/19/18 Weight 60.1 kg - Imaging and Cardiology Imaging: Impressions Chest X-Ray 07/20/18 04:00 CONCLUSION: Underlying interstitial disease. Left base atelectasis or consolidation which appears to be improving. Assessment and Plan - Assessment (1) Chest pain Code(s): R07.9 - Chest pain, unspecified Status: Acute (2) Elevated troponin level Code(s): R74.8 - Abnormal levels of other serum enzymes Status: Acute (3) Liver failure Code(s): K72.90 - Hepatic failure, unspecified without coma Status: Acute (4) Hyperbilirubinemia Code(s): E80.6 - Other disorders of bilirubin metabolism Status: Acute - Plan Patient has AMS but appears to be a little more responsive this morning, neurology evaluation in progress. Patient is to remain NPO due to failing his swallow evaluation. Patient's BP is decreasing with episodes of HTN, we will continue with hydralazine. We will continue with conservative management for his recent NSTEMI. We will continue to monitor patient during hospitalization. The patient was seen and evaluated by Dr. Gonzalez who participated in care, management and decision making. - Attending Attestation Patient seen and examined. I reviewed and agree with the evaluation and plan as presented. Continue post IN care. Continue ICU monitoring. Increase activity, PT. MS still altered.
[2018-07-21] MEDS: hydrALAZINE HCl Inj 20 MG/ML Vial IV.PUSH PRN (14:07)
--- NOTE | 2018-07-21 15:18 | P.PNNP ---
Subjective Interval history: Seen in AM. Appears agitated in soft limb restraints. Awake, responding to questions. Creatinine at 1.37. Hypernatremic at 160. <Edel Lantigua - Last Filed: 07/21/18 15:15> Physical Exam Vital signs: Vital Signs 07/20/18 16:00 07/20/18 17:00 07/20/18 18:00 Temperature 98.4 F 98.3 F Pulse Rate 74 73 80 Respiratory Rate 15 15 24 Blood Pressure 173/75 H 168/70 H 176/76 H Pulse Oximetry 98 97 07/20/18 18:03 07/20/18 19:00 07/20/18 20:00 Temperature 97.9 F Pulse Rate 71 68 69 Respiratory Rate 24 17 17 Blood Pressure 164/70 H 167/74 H 158/69 H Pulse Oximetry 98 99 98 07/20/18 21:00 07/20/18 22:00 07/20/18 22:09 Temperature Pulse Rate 68 73 68 Respiratory Rate 14 26 H 14 Blood Pressure 169/76 H 196/86 H 160/64 H Pulse Oximetry 97 98 100 07/20/18 23:00 07/21/18 00:00 07/21/18 01:00 Temperature 98.9 F Pulse Rate 68 74 69 Respiratory Rate 17 20 17 Blood Pressure 161/74 H 165/75 H 162/72 H Pulse Oximetry 98 98 100 07/21/18 02:00 07/21/18 03:00 07/21/18 04:00 Temperature Pulse Rate 72 69 69 Respiratory Rate 18 15 16 Blood Pressure 166/72 H 159/79 H 157/73 H Pulse Oximetry 99 95 98 07/21/18 05:00 07/21/18 06:00 07/21/18 06:12 Temperature Pulse Rate 74 76 74 Respiratory Rate 18 16 18 Blood Pressure 154/72 H 162/74 H 177/76 H Pulse Oximetry 99 94 L 96 07/21/18 06:14 07/21/18 07:00 07/21/18 08:00 Temperature 97.5 F L Pulse Rate 75 94 H 87 Respiratory Rate 18 27 H 19 Blood Pressure 169/72 H 159/71 H Pulse Oximetry 94 L 90 L 97 07/21/18 09:00 07/21/18 10:00 07/21/18 10:07 Temperature Pulse Rate 90 89 Respiratory Rate 25 H 25 H Blood Pressure 143/69 H 143/63 H Pulse Oximetry 97 96 98 07/21/18 11:00 07/21/18 11:26 07/21/18 12:00 Temperature 97.7 F Pulse Rate 86 83 Respiratory Rate 19 19 18 Blood Pressure 127/58 L 158/72 H Pulse Oximetry 100 100 07/21/18 13:00 07/21/18 14:00 07/21/18 14:12 Temperature Pulse Rate 82 77 80 Respiratory Rate 18 16 18 Blood Pressure 164/75 H 181/75 H 184/80 H Pulse Oximetry 98 95 07/21/18 14:19 Temperature Pulse Rate 82 Respiratory Rate 27 H Blood Pressure 152/69 H Pulse Oximetry 98 Intake & Output 07/20/18 07/21/18 07/21/18 18:59 06:59 18:59 Intake Total 2055 / 2055 1005 / 1005 1305 / 1305 Output Total 750 / 750 650 / 650 Balance 1305 / 1305 355 / 355 1305 / 1305 Weight 60.1 kg Intake: IV 2055 / 2055 1005 / 1005 1305 / 1305 D5W/1/4 NS Inj 1,000 ML @ 42 1000 / 1000 mls/hr IV.CONT .[id number] [facility] Rx# :[id number] KCl Inj 10 MEQ In D5W Inj 1,000 1005 / 1005 1005 / 1005 1005 / 1005 ML @ 125 mls/hr IV.CONT .Q8H3M [facility] Rx#:[id number] Cubicin Inj 400 MG In NS Inj 100 / 100 100 ML @ 200 mls/hr IV.SIG Q48H [facility] Rx#:[id number] Zosyn 2.25 GM Premix 50 ML @ 50 / 50 100 mls/hr IV.SIG Q8H [facility] Rx#: [id number] KCl 20 mEq Premix Inj 20 meq In 200 / 200 100 ml @ 50 mls/hr IV.SIG Q2H [facility] Rx#:[id number] Oral 0 / 0 0 / 0 Output: Urine Amount (Catheter) 750 / 750 650 / 650 Condom 750 / 750 650 / 650 Chest Tube Drainage 0 / 0 Right 0 / 0 Other: # Incontinent Voids 0 Date of Last Bowel Movement 07/19/18 07/19/18 07/19/18 Narrative: GENERAL: Awake, restless, NAD SKIN: Warm and dry. NECK: Supple, trachea midline. No JVD. CARDIOVASCULAR: Regular rate and rhythm without murmurs, gallops, or rubs. RESPIRATORY: Breath sounds equal right-sided chest tube. GASTROINTESTINAL: Abdomen soft, non-tender, nondistended. GENITOURINARY: Condom catheter, light yellow urine. MUSCULOSKELETAL: No cyanosis, no edema. . - Urinary Catheter Management Indwelling Urethral Catheter Cath placed during this visit: yes, but has since been removed by the nurse Reason for continuing: Decision to DC catheter Insertion date: 07/12/18 Insertion time: 07:45 Removal date: 07/19/18 Removal time: 10:45 Condom Cath placed during this visit: yes Reason for continuing: Not indwelling catheter Insertion date: 07/19/18 Insertion time: 10:50 <Edel Lantigua - Last Filed: 07/21/18 15:15> Vital signs: Vital Signs 07/20/18 22:00 07/20/18 22:09 07/20/18 23:00 Temperature Pulse Rate 73 68 68 Respiratory Rate 26 H 14 17 Blood Pressure 196/86 H 160/64 H 161/74 H Pulse Oximetry 98 100 98 07/21/18 00:00 07/21/18 01:00 07/21/18 02:00 Temperature 98.9 F Pulse Rate 74 69 72 Respiratory Rate 20 17 18 Blood Pressure 165/75 H 162/72 H 166/72 H Pulse Oximetry 98 100 99 07/21/18 03:00 07/21/18 04:00 07/21/18 05:00 Temperature Pulse Rate 69 69 74 Respiratory Rate 15 16 18 Blood Pressure 159/79 H 157/73 H 154/72 H Pulse Oximetry 95 98 99 07/21/18 06:00 07/21/18 06:12 07/21/18 06:14 Temperature Pulse Rate 76 74 75 Respiratory Rate 16 18 18 Blood Pressure 162/74 H 177/76 H 169/72 H Pulse Oximetry 94 L 96 94 L 07/21/18 07:00 07/21/18 08:00 07/21/18 09:00 Temperature 97.5 F L Pulse Rate 94 H 87 90 Respiratory Rate 27 H 19 25 H Blood Pressure 159/71 H 143/69 H Pulse Oximetry 90 L 97 97 07/21/18 10:00 07/21/18 10:07 07/21/18 11:00 Temperature Pulse Rate 89 86 Respiratory Rate 25 H 19 Blood Pressure 143/63 H 127/58 L Pulse Oximetry 96 98 100 07/21/18 11:26 07/21/18 12:00 07/21/18 13:00 Temperature 97.7 F Pulse Rate 83 82 Respiratory Rate 19 18 18 Blood Pressure 158/72 H 164/75 H Pulse Oximetry 100 98 07/21/18 14:00 07/21/18 14:10 07/21/18 14:12 Temperature Pulse Rate 77 80 Respiratory Rate 16 20 18 Blood Pressure 181/75 H 184/80 H Pulse Oximetry 95 07/21/18 14:19 07/21/18 15:00 07/21/18 16:00 Temperature 98 F Pulse Rate 82 88 88 Respiratory Rate 27 H 15 14 Blood Pressure 152/69 H 126/68 141/65 H Pulse Oximetry 98 99 96 07/21/18 17:00 07/21/18 18:00 Temperature Pulse Rate 88 97 H Respiratory Rate 15 25 H Blood Pressure 140/77 127/59 L Pulse Oximetry 97 93 L Intake & Output 07/21/18 07/21/18 07/22/18 06:59 18:59 06:59 Intake Total 1005 / 1005 2510 / 2510 Output Total 650 / 650 650 / 650 Balance 355 / 355 1860 / 1860 Weight 60.1 kg Intake: IV 1005 / 1005 2510 / 2510 KCl Inj 10 MEQ In D5W Inj 1,000 1005 / 1005 2009 ML @ 125 mls/hr IV.CONT .Q8H3M [facility] Rx#:[id number] Cubicin Inj 400 MG In NS Inj 100 / 100 100 ML @ 200 mls/hr IV.SIG Q48H [facility] Rx#:[id number] KCl 20 mEq Premix Inj 20 meq In 400 / 400 100 ml @ 50 mls/hr IV.SIG Q2H [facility] Rx#:[id number] Oral 0 / 0 Output: Urine 650 / 650 Urine Amount (Catheter) 650 / 650 Condom 650 / 650 Chest Tube Drainage 0 / 0 Right 0 / 0 Other: # Incontinent Voids 0 Date of Last Bowel Movement 07/19/18 07/19/18 - Urinary Catheter Management Indwelling Urethral Catheter Cath placed during this visit: no Condom Cath placed during this visit: no <Dina Rivas - Last Filed: 07/21/18 21:32> Assessment and Plan - Assessment (1) Acute kidney injury Code(s): N17.9 - Acute kidney failure, unspecified Status: Acute Plan: No previous history of chronic kidney disease. Has electrolyte disorder with high sodium and low K. Creatinine started to increase on the 6th NEERU possible ATN from sepsis or contrast Nephropathy. Creatinine started to increase about 48 hours after receiving contrast. Also possibility of AIN with vancomycin use however random level not elevated. Urine EOS negative. CT of abdomen shows kidney with in normal limits. Avoid Nephrotoxins. Follow the urine out put and BMP Creatinine continues to improve at 1.37, with good urinary output. (2) Hypernatremia Code(s): E87.0 - Hyperosmolality and hypernatremia Status: Acute Plan: Sodium level at 160, on D5W (3) Respiratory failure Code(s): J96.90 - Respiratory failure, unspecified, unspecified whether with hypoxia or hypercapnia Status: Acute Plan: Extubated 07/18, on NC with good sats (4) Bacteremia Code(s): R78.81 - Bacteremia Status: Acute Plan: On antibiotics , afebrile. <Edel Lantigua - Last Filed: 07/21/18 15:15> - Assessment (1) Acute kidney injury Code(s): N17.9 - Acute kidney failure, unspecified Status: Acute Plan: Patient seen and examined, agree with above. Creatinine is improving, Sodium is slowly improving. Continue IVF. (2) Hypernatremia Code(s): E87.0 - Hyperosmolality and hypernatremia Status: Acute (3) Respiratory failure Code(s): J96.90 - Respiratory failure, unspecified, unspecified whether with hypoxia or hypercapnia Status: Acute (4) Bacteremia Code(s): R78.81 - Bacteremia Status: Acute <Dina Rivas - Last Filed: 07/21/18 21:32>
[2018-07-21] MEDS: Haloperidol Inj 5 MG/ML Ampul IV.PUSH PRN (21:43)
[2018-07-22] MEDS: Morphine Inj 4 MG/ML Vial IV.PUSH PRN ×2 (00:51→18:47)
[2018-07-22] MEDS: Oral Hygiene Kit OROPHARYNG SCH ×4 (00:54→18:29)
[2018-07-22 06:34] LABS: Hematocrit 33.5 % (39.0-51.0); Hemoglobin 11.6 gm/dL (13.0-17.0); Mean Corpuscular HGB Conc 34.6 % (32.0-36.0); Mean Corpuscular Hemoglobin 34.6 pg (27.0-34.0); Mean Corpuscular Volume 100.1 fL (80.0-100.0); Mean Platelet Volume 10.7 fL (7.0-11.0); Platelet Count 40 th/mm3 (150-450); Red Blood Count 3.34 mil/mm3 (4.50-5.90); White Blood Count 10.3 th/mm3 (4.0-11.0)
[2018-07-22 06:39] LABS: INR 1.8 Ratio; Prothrombin Time 18.7 sec (9.8-11.6)
[2018-07-22] MEDS: Potassium Chloride Inj 10 MEQ in Dextrose 5% in Water Inj 1,000 ML IV.CONT SCH ×6 (07:18→16:42)
[2018-07-22] MEDS: Pantoprazole Inj 40 MG Vial IV.PUSH SCH (08:47)
[2018-07-22] MEDS: Mupirocin 2% Nasal Oint Topical Syringe EACH NARE SCH ×2 (08:47→22:26)
[2018-07-22] MEDS: Chlorhexidine 0.12% Oral Kit 15 ML UDC OROPHARYNG SCH ×2 (08:48→22:26)
[2018-07-22] MEDS ORDERED: Metoprolol Inj 5 MG/5 ML Vial IV.PUSH PRN ×2 (09:40→11:00)
--- NOTE | 2018-07-22 10:00 | P.PNCA ---
Subjective Interval history: Patient remains lethargic with AMS. Patient does attempt to follow commands but does not answer any questions. Medications and Allergies Allergies Allergy/AdvReac Type Severity Reaction Status Date / Time No Known Allergies Allergy Verified 07/08/18 12:30 Home Medications Medication Instructions Recorded Confirmed Type No Known Home Medications 07/08/18 07/08/18 History Active Medications: Active Medications Al Hydroxide/Mg Hydroxide (Milk Of Magnjeb Liq) 30 ml PO Q12H PRN PRN Reason: Mild Constipation Albuterol (Albuterol Neb (Prn)) 2.5 mg NEB Q2HR NEB PRN PRN Reason: DYSPNEA Albuterol (Duoneb Neb (Prn)) 1 ampul NEB Q2HR NEB PRN PRN Reason: SHORTNESS OF BREATH Last Admin: 07/14/18 08:20 Dose: 1 ampul Chlorhexidine Gluconate (Peridex 0.12% Oral Kit) 15 ml OROPHARYNG BID@0800, 2000 [facility] Last Admin: 07/22/18 08:48 Dose: Not Given Flumazenil (Romazecon Inj) 0.2 mg IV.PUSH Q1M PRN PRN Reason: OVERSEDATION Haloperidol Lactate (Haldol Inj) 1 mg IV.PUSH Q15M PRN PRN Reason: for severe agitation Last Admin: 07/21/18 21:43 Dose: 1 mg Hydralazine HCl (Apresoline Inj) 20 mg IV.PUSH Q4H PRN PRN Reason: Sys Bp Greater Than 165 [facility] Last Admin: 07/21/18 14:07 Dose: 20 mg Daptomycin 400 mg/ Sodium (Chloride) 100 mls @ 200 mls/hr IV.SIG Q48H [facility] Stop: 07/23/18 23:00 Last Infusion: 07/21/18 12:40 Dose: Infused Potassium Chloride 10 meq/ (Dextrose) 1,005 mls @ 125 mls/hr IV.CONT .Q8H3M [facility] Last Admin: 07/22/18 07:38 Dose: Not Given Potassium Chloride (Kcl 20 Meq Premix Inj) 20 meq in 100 mls @ 50 mls/hr IV.SIG Q2H [facility] Stop: 07/22/18 15:44 Last Admin: 07/22/18 08:46 Dose: 50 mls/hr Labetalol HCl (Trandate Inj) 10 mg IV.PUSH Q1H PRN PRN Reason: Sbp>165, Dbp>90, Hr>65 Lactulose (Lactulose Liq) 30 ml PO DAILY PRN PRN Reason: SEVERE CONSITIPATION Lactulose (Lactulose Liq) 30 ml PO TID [facility] Last Admin: 07/22/18 08:48 Dose: Not Given Lorazepam (Ativan) 1 mg PO Q4H PRN PRN Reason: for CIWA 8-10 Lorazepam (Ativan) 2 mg PO Q2H PRN PRN Reason: for CIWA 11-14 Lorazepam (Ativan Inj) 2 mg IV.PUSH Q2H PRN PRN Reason: for CIWA 11-14 Last Admin: 07/20/18 11:13 Dose: 2 mg Lorazepam (Ativan Inj) 2 mg IV.PUSH Q1H PRN PRN Reason: for CIWA 15-20 Last Admin: 07/11/18 21:37 Dose: 2 mg Lorazepam (Ativan Inj) 2 mg IV.PUSH Q15M PRN PRN Reason: for CIWA > 20 Lorazepam (Ativan Inj) 1 mg IV.PUSH Q4H PRN PRN Reason: for CIWA 8-10 Last Admin: 07/20/18 00:45 Dose: 1 mg Metoprolol Tartrate (Lopressor Inj) 2.5 mg IV.PUSH Q6H PRN PRN Reason: BLOOD PRESSURE MANAGEMENT Miscellaneous Medication () 1 each OROPHARYNG 0000,0400,1200,1600 [facility] Last Admin: 07/22/18 03:09 Dose: Not Given Morphine Sulfate (Morphine Inj) 2 mg IV.PUSH Q4H PRN PRN Reason: BREAKTHROUGH PAIN Last Admin: 07/22/18 00:51 Dose: 2 mg Mupirocin (Bactroban 2% Nasal Oint) 1 applicatio EACH NARE BID [facility] Last Admin: 07/22/18 08:47 Dose: 1 applicatio Naloxone HCl (Narcan Inj) 0.4 mg IV.PUSH UNSCH PRN PRN Reason: SEE LABEL COMMENTS Ondansetron HCl (Zofran Inj) 4 mg IV.PUSH Q6H PRN PRN Reason: NAUSEA OR VOMITING Pantoprazole Sodium (Protonix Inj) 40 mg IV.PUSH DAILY [facility] Last Admin: 07/22/18 08:47 Dose: 40 mg Sennosides (Senokot) 17.2 mg PO Q12H PRN PRN Reason: Moderate Constipation Sodium Chloride (Ns Flush) 2 ml IV.FLUSH PRN PRN PRN Reason: FLUSH AFTER USING IV ACCESS Last Admin: 07/20/18 20:10 Dose: 2 ml Sodium Chloride (Ns Flush) 2 ml IV.FLUSH BID [facility] Last Admin: 07/22/18 08:47 Dose: 2 ml Physical Exam Vital signs: Vital Signs 07/21/18 10:00 07/21/18 10:07 07/21/18 11:00 Temperature Pulse Rate 89 86 Respiratory Rate 25 H 19 Blood Pressure 143/63 H 127/58 L Pulse Oximetry 96 98 100 07/21/18 11:26 07/21/18 12:00 07/21/18 13:00 Temperature 97.7 F Pulse Rate 83 82 Respiratory Rate 19 18 18 Blood Pressure 158/72 H 164/75 H Pulse Oximetry 100 98 07/21/18 14:00 07/21/18 14:10 07/21/18 14:12 Temperature Pulse Rate 77 80 Respiratory Rate 16 20 18 Blood Pressure 181/75 H 184/80 H Pulse Oximetry 95 07/21/18 14:19 07/21/18 15:00 07/21/18 16:00 Temperature 98 F Pulse Rate 82 88 88 Respiratory Rate 27 H 15 14 Blood Pressure 152/69 H 126/68 141/65 H Pulse Oximetry 98 99 96 07/21/18 17:00 07/21/18 18:00 07/21/18 19:00 Temperature Pulse Rate 88 97 H 85 Respiratory Rate 15 25 H 15 Blood Pressure 140/77 127/59 L 136/64 Pulse Oximetry 97 93 L 95 07/21/18 20:00 07/21/18 21:00 07/21/18 21:51 Temperature 98.9 F Pulse Rate 93 H 80 Respiratory Rate 33 H 20 Blood Pressure 129/60 155/68 H Pulse Oximetry 95 96 93 L 07/21/18 22:00 07/21/18 23:00 07/22/18 00:00 Temperature 97.9 F Pulse Rate 82 84 78 Respiratory Rate 24 26 H 24 Blood Pressure 147/67 H 139/65 131/61 Pulse Oximetry 94 L 93 L 95 07/22/18 01:00 07/22/18 02:00 07/22/18 03:00 Temperature Pulse Rate 78 79 77 Respiratory Rate 23 19 19 Blood Pressure 129/63 136/59 L 129/66 Pulse Oximetry 91 L 89 L 94 L 07/22/18 04:00 07/22/18 05:00 07/22/18 06:00 Temperature 98.2 F Pulse Rate 78 77 80 Respiratory Rate 18 19 22 Blood Pressure 148/70 H 154/70 H 155/72 H Pulse Oximetry 93 L 97 91 L Intake & Output 07/21/18 07/22/18 07/22/18 18:59 06:59 18:59 Intake Total 2510 / 2510 1005 / 1005 Output Total 650 / 650 750 / 750 Balance 1860 / 1860 255 / 255 Weight 61 kg Intake: IV 2510 / 2510 1005 / 1005 KCl Inj 10 MEQ In D5W Inj 1,000 2009 1005 / 1005 ML @ 125 mls/hr IV.CONT .Q8H3M [facility] Rx#:[id number] Cubicin Inj 400 MG In NS Inj 100 / 100 100 ML @ 200 mls/hr IV.SIG Q48H [facility] Rx#:[id number] KCl 20 mEq Premix Inj 20 meq In 400 / 400 100 ml @ 50 mls/hr IV.SIG Q2H [facility] Rx#:[id number] Oral 0 / 0 Output: Urine 650 / 650 Urine Amount (Catheter) 750 / 750 Condom 750 / 750 Chest Tube Drainage 0 / 0 Right 0 / 0 Other: Date of Last Bowel Movement 07/19/18 07/19/18 # Bowel Movements 0 - Constitutional no acute distress - Routine HEENT Exam Head: Present: normocephalic ENT: Present: mucous membranes moist Comments: chronic dilated left pupil - Routine Neck Exam Present: supple - Routine Respiratory Exam Present: rhonchi - Routine Cardiovascular Exam Present: S1, S2 - Routine Abdominal Exam Present: normoactive bowel sounds - Routine Extremities Exam Present: pulses intact, normal capillary refill. Absent: cyanosis, clubbing, edema - Routine Skin Exam Present: intact - Routine Neurological Exam Present: altered mental status - Detailed Neurological Exam: Coma Scale Eye Opening: Spontaneous Verbal Response: None Motor Response: None [place] Coma Scale Total: 6 - Routine Psychiatric Exam Present: unable to assess - Urinary Catheter Management Indwelling Urethral Catheter Cath placed during this visit: yes, but has since been removed by the nurse Reason for continuing: Decision to DC catheter Insertion date: 07/12/18 Insertion time: 07:45 Removal date: 07/19/18 Removal time: 10:45 Condom Cath placed during this visit: yes Reason for continuing: Not indwelling catheter Insertion date: 07/19/18 Insertion time: 10:50 Results 07/22/18 06:15 07/21/18 05:43 Cardiac Enzymes 07/21/18 Range/Units 05:43 AST 153 H (15-37) U/L Coagulation 07/21/18 07/22/18 Range/Units 05:43 06:15 PT 17.6 H 18.7 H (9.8-11.6) sec CBC 07/21/18 07/22/18 Range/Units 05:43 06:15 WBC 10.3 10.3 (4.0-11.0) th/mm3 RBC 3.56 L 3.34 L (4.50-5.90) mil/mm3 Hgb 12.2 L 11.6 L (13.0-17.0) gm/dL Hct 36.4 L 33.5 L (39.0-51.0) % Plt Count 57 L 40 L (150-450) th/mm3 Neut # (Auto) 6.9 (1.8-7.7) th/mm3 Lymph # (Auto) 1.9 (1.0-4.8) th/mm3 [place] # (Auto) 1.0 H (0.0-0.9) th/mm3 Eos # (Auto) 0.4 (0.0-0.4) th/mm3 Baso # (Auto) 0.1 (0.0-0.2) th/mm3 Comprehensive Metabolic Panel 07/21/18 Range/Units 05:43 Sodium 160 H* (136-145) meq/L Potassium 2.9 L* (3.5-5.1) meq/L Chloride 118 H (98-107) meq/L Carbon Dioxide 36.2 H (21.0-32.0) meq/L BUN 47 H (7-18) mg/dL Creatinine 1.37 H (0.60-1.30) mg/dL Calcium 9.0 (8.5-10.1) mg/dL AST 153 H (15-37) U/L ALT 190 H (12-78) U/L Alkaline Phosphatase 87 (45-117) U/L Total Protein 6.9 (6.4-8.2) g/dL Albumin 2.9 L (3.4-5.0) g/dL Intake and Output 07/21/18 07/22/18 07/22/18 22:59 06:59 14:59 Intake Total 1205 / 1205 1005 / 1005 Output Total 650 / 650 750 / 750 Balance 555 / 555 255 / 255 Intake: IV 1205 / 1205 1005 / 1005 KCl Inj 10 MEQ In D5W Inj 1,000 1005 / 1005 1005 / 1005 ML @ 125 mls/hr IV.CONT .Q8H3M [facility] Rx#:[id number] KCl 20 mEq Premix Inj 20 meq In 200 / 200 100 ml @ 50 mls/hr IV.SIG Q2H [facility] Rx#:[id number] Oral 0 / 0 Output: Urine 650 / 650 Urine Amount (Catheter) 750 / 750 Condom 750 / 750 Chest Tube Drainage 0 / 0 Right 0 / 0 Other: Date of Last Bowel Movement 07/19/18 07/19/18 # Bowel Movements 0 Weight 61 kg Assessment and Plan - Assessment (1) Chest pain Code(s): R07.9 - Chest pain, unspecified Status: Acute (2) Elevated troponin level Code(s): R74.8 - Abnormal levels of other serum enzymes Status: Acute (3) Liver failure Code(s): K72.90 - Hepatic failure, unspecified without coma Status: Acute (4) Hyperbilirubinemia Code(s): E80.6 - Other disorders of bilirubin metabolism Status: Acute - Plan Patient continues to remain hypertensive, we will add Lopressor 2.5mg IV PRN and adjust as needed. Neurology evaluation in progress due to AMS. Patient had recent NSTEMI, we will continue with conservative management. Patient's renal function is slightly improved, renal evaluation in progress. We will continue to monitor patient during hospitalization. The patient was seen and evaluated by Dr. Gonzalez who participated in care, management and decision making. - Attending Attestation Patient seen and examined. I reviewed and agree with the evaluation and plan as presented. Continue medical management post AL. Increase activity, PT. Still very confused.
[2018-07-22] MEDS: Potassium Chlor 20 mEq Premix 20 MEQ/100 ML PIGGYBACK IV.SIG SCH ×4 (11:00→18:28)
--- NOTE | 2018-07-22 13:04 | P.DIET ---
Nutritional Evaluation Type of nutrition evaluation: follow-up Nutrition consult regarding: Tube Feeding Objective - Diagnosis CP with near syncope, r/o ACS, elevated liver enzymes - Objective % IBW: 91 (IBW = 148%) Body Weight Used for Calculations: Actual (admit wt 61.2 kg) Energy Needs - Lower Range (kCal/kg): 28 Energy Needs - Upper Range (kCal/kg): 32 Lower Limit kCal/kg (kCals): 1,714 Upper Limit kCal/kg (kCals): 1,958 Lower Limit Protein Factor (Grams per Kg): 1.0 Upper Limit Protein Factor (Grams per Kg): 1.5 Lower Protein Needs (Protein): 61 Upper Protein Needs (Protein): 92 Dietitian Reviewed in Medical Record: Curent medications, Intake & Output, Labs , Medical history, Tube feeding Diet Order: NPO Objective Comments: Labs: Na 140 K+ 2.9, BUN/creat 70/4.58, Est GFR 13, LFTs elev Assessment Assessment: Pt was extubated 07/18, now on nasal cannula. Palliative note reviewed, pt currently no code DNR, family agreed w/ PEG tube. Spoke to RN, pt will be receiving PEG later today at IR. RD continue to recommend Jevity 1.5 @ 50 mls/ hr to provide 1800 kcals, 77 gms protein and 912 mls of free water when pt resumes TF'ing. Renal labs noted, Nephrology following; pt with good urine ouput after Bumex. Labs reviewed, dietitian following. Brought forward: Previous TF order is for Nepro @ 45 mls/hr. Please note that Nepro is formulated for pts on dialysis. Recommendations: Jevity 1.5 @ 50 mls/hr goal when pt resumes TF Dietitian to Monitor: Lab values, Renal labs, Intake & Output, Weight change, Medical course
[2018-07-22] MEDS ORDERED: fentaNYL Citrate Inj 250 MCG/5 ML Ampul ONE (14:26)
[2018-07-22] MEDS ORDERED: ceFAZolin 1 GM Premix Inj 1 GM/50 ML PIGGYBACK IV.SIG ONE (14:27)
[2018-07-22] MEDS ORDERED: Iohexol 350 MG/ML 50 ML Vial (for Rad Diag) G-TUBE ONE (15:11)
--- NOTE | 2018-07-22 15:11 | P.RAD ---
Post Procedure Progress Note - Procedure Information Procedure Date: 07/22/18 Supervising Radiologist: KIT Olivas Assisting Physician: Randall Morgan Estimated blood loss (mL): 1 Anesthesia: Local, Conscious Sedation - Plan of Activity Patient to Unit: Nursing Unit Patient Condition: Good Additional Comments: 18 Fr G-tube was successfully placed without any difficulties or complications. See PACS Report for procedural detail/treatment.
--- NOTE | 2018-07-22 15:17 | P.PNCC ---
Subjective Subjective Remarks/Hospital Course: 63-year-old male. Admission 07/09/2018. Date of consultation 2017. Past medical history includes ongoing alcoholism. Urine tox screen on admission positive for cocaine and opiates. Patient originally fell from a single bed about 1 week ago. He did not seek treatment for his swollen left elbow. He is initially diagnosed here with a left olecranon fracture/ nondisplaced. Seen by Dr. Blanco recommended splint/immobilization. Follow-up outpatient with x-rays in 2 weeks. He was treated with alcoholism for on the [facility] protocol receiving multivitamin, folate and thiamine. During admission, patient had multiple complaints including right upper quadrant pain. Patient has CT his abdomen/pelvis revealed hepatic steatosis, pericholecystic fluid with no ductal dilatation. Ultrasound showed pericholecystic 6 with negative Lundy sign. Nuclear medicine scan revealed no activity in the intrahepatic ducts compatible ducts or small bowel. Likely slightly disease. Patient was evaluated by gastroenterology for this issue. BOBBY, AMA, ASMA, SSA a and B, Ronquillo, scleroderma and double-stranded DNA all pending. Negative hepatitis panel. Noted patient had angiogram of the abdomen which revealed no focal stenosis of the SMA, MIC or celiac. Patient elevated troponin. Was seen by Dr. chaudhry. Echocardiogram revealed EF 55-6%. PA P 43 mmHg. Trace to mild TR. Possibly demand ischemia due to sepsis. Was on aspirin. Did receive/placed on heparin drip. This is currently on hold due to coagulopathic state. Patient has gram-positive cocci in blood. Infectious disease has been counseled. Currently on vancomycin for comfort.) I repeated blood cultures, sputum and urine culture today. Patient is 80% right carotid artery stenosis. Followed by Dr. Bassett. Patient was transferred to ICU with persistent hypotension increasing lactic acidosis in the setting of acute liver injury. Worsening renal function. Patient has received 2.5 L normal saline the present time his blood pressure appears stable. Patient is currently denying abdominal pain. SUBJECTIVE: 07/11: Currently resting in bed and asking when he can go home. Creatinine is elevated 2.3. Will bolus with additional fluid. Echocardiogram results noted. 07/12: Negligible urine output overnight. Culver placed. Short of breath this morning. Not requiring pressors 07/13: Patient in respiratory distress tachypneic breathing 40 breaths/min. Intermittently desaturating to low 80s on nasal cannula. Very lethargic hardly protecting airway. Emergently intubated and placed on mechanical ventilation. Currently on Bumex infusion urine output improving. However BUN/creatinine was 49/4.53. Chest x-ray today shows extensive right-sided infiltrate. Chest x- ray on 07/12 shows extensive right-sided lower lobe infiltrate but was clear on 07/10/2018. Indicates probable aspiration pneumonia 07/14: Intubated and placed on mechanical ventilation yesterday for severe hypoxemic respiratory failure. After intubation right pigtail chest tube placed for large effusion. Last 24 hours 1.4 L drained. Currently on broad- spectrum antibiotics. Remains septic renal function stable creatinine 4.57. Remains on Bumex drip urine output 2.4 L in 24 hours 07/15: Intubated off sedation waking up moving extremities. Chest x-ray and bedside ultrasound shows moderate to large left pleural effusion. Remains on Bumex drip 2.8 L urine output in 24 hours. Plan for left thoracentesis today. Bilirubin noted to be finding 7.5 today probably cholestasis. Previous HIDA scan showed questionable common bile duct obstruction versus hepatobiliary disease. Reconsult GI for further evaluation may need MRCP 07/16: Remains on mechanical ventilation. Acute kidney injury persists. 07/17: Respiratory effort during spontaneous breathing trials has improved modestly from yesterday. He continues to respond to loop diuretic infusion. Opens eyes and tracks today. 07/18: Renal function continues to improve and fluid removal going better. Gas exchange better today and respiratory effort on spontaneous breathing trials has improved. We will try to extubate today and begin further rehab. 07/19: Extubated yesterday and protects airway satisfactorily. Hypokalemia persists, will replace aggressively today. Worsening jaundice. 07/20: He appears to be in free water deficit, will convert intravenous fluid to D5 water. Rising bilirubin following an episode of shock liver on arrival, largely direct component. This appears to be a product of primary liver dysfunction and will follow ammonia. Check right upper quadrant ultrasound if not done recently. Recent hepatitis screen negative. 07/21: Awake, alert, disoriented. On nasal cannula. Elevated LFTs noted. Needs G-tube placement 07/22: Awake, alert, disoriented. On nasal cannula. Now DNR following discussion with palliative care service yesterday. G-tube being placed by interventional radiology. Objective Vital Signs / I&O: Vital Signs 07/21/18 16:00 07/21/18 17:00 07/21/18 18:00 Temperature 98 F Pulse Rate 88 88 97 H Respiratory Rate 14 15 25 H Blood Pressure 141/65 H 140/77 127/59 L Pulse Oximetry 96 97 93 L 07/21/18 19:00 07/21/18 20:00 07/21/18 21:00 Temperature 98.9 F Pulse Rate 85 93 H 80 Respiratory Rate 15 33 H 20 Blood Pressure 136/64 129/60 155/68 H Pulse Oximetry 95 95 96 07/21/18 21:51 07/21/18 22:00 07/21/18 23:00 Temperature Pulse Rate 82 84 Respiratory Rate 24 26 H Blood Pressure 147/67 H 139/65 Pulse Oximetry 93 L 94 L 93 L 07/22/18 00:00 07/22/18 01:00 07/22/18 02:00 Temperature 97.9 F Pulse Rate 78 78 79 Respiratory Rate 24 23 19 Blood Pressure 131/61 129/63 136/59 L Pulse Oximetry 95 91 L 89 L 07/22/18 03:00 07/22/18 04:00 07/22/18 05:00 Temperature 98.2 F Pulse Rate 77 78 77 Respiratory Rate 19 18 19 Blood Pressure 129/66 148/70 H 154/70 H Pulse Oximetry 94 L 93 L 97 07/22/18 06:00 07/22/18 07:00 07/22/18 08:00 Temperature 98.1 F Pulse Rate 80 82 79 Respiratory Rate 22 26 H 28 H Blood Pressure 155/72 H 151/66 H 172/77 H Pulse Oximetry 91 L 93 L 97 07/22/18 09:00 07/22/18 09:51 07/22/18 10:00 Temperature Pulse Rate 81 83 Respiratory Rate 24 29 H Blood Pressure 163/75 H 160/72 H Pulse Oximetry 96 97 97 07/22/18 11:00 07/22/18 12:00 07/22/18 12:22 Temperature 97.6 F Pulse Rate 90 85 89 Respiratory Rate 26 H 18 23 Blood Pressure 154/78 H 155/99 H 155/99 H Pulse Oximetry 97 100 99 07/22/18 12:25 07/22/18 12:37 07/22/18 12:55 Temperature 97.6 F 97.8 F Pulse Rate 91 H 92 H Respiratory Rate 23 24 Blood Pressure 139/71 139/71 Pulse Oximetry 94 L 94 L 07/22/18 13:00 07/22/18 14:08 Temperature 98.0 F Pulse Rate 90 92 H Respiratory Rate 28 H 20 Blood Pressure 143/78 H 154/66 H Pulse Oximetry 94 L 98 Intake & Output 07/21/18 07/22/18 07/22/18 18:59 06:59 18:59 Intake Total 2510 / 2510 1005 / 1005 525 / 525 Output Total 650 / 650 750 / 750 Balance 1860 / 1860 255 / 255 525 / 525 Weight 61 kg Intake: IV 2510 / 2510 1005 / 1005 150 / 150 KCl Inj 10 MEQ In D5W Inj 1,000 2009 1005 / 1005 ML @ 125 mls/hr IV.CONT .Q8H3M [facility] Rx#:[id number] Cubicin Inj 400 MG In NS Inj 100 / 100 100 ML @ 200 mls/hr IV.SIG Q48H [facility] Rx#:[id number] KCl 20 mEq Premix Inj 20 meq In 400 / 400 100 / 100 100 ml @ 50 mls/hr IV.SIG Q2H [facility] Rx#:[id number] Ancef 1 GM Premix Inj 1 gm In 50 / 50 50 ml @ 0 mls/hr IV.SIG .STK- MED ONE Rx#:[id number] Oral 0 / 0 Intake (Blood Product) Amt 375 / 375 Plt Pheresis A Leukored Pas 189 / 189 Unit [id number] Plt Pheresis B Leukored Pas 186 / 186 Unit [id number] Output: Urine 650 / 650 Urine Amount (Catheter) 750 / 750 Condom 750 / 750 Chest Tube Drainage 0 / 0 Right 0 / 0 Other: Date of Last Bowel Movement 07/19/18 07/19/18 07/19/18 # Bowel Movements 0 Result Diagrams: 07/22/18 06:15 07/21/18 05:43 Objective Remarks: GENERAL: Chronically ill and jaundiced appearing 63-year-old male. SKIN: Warm and dry. HEAD: Atraumatic. Normocephalic. EYES: Pupils are unequal right 2 mm reactive left is 5 mm nonreactive ENT: Extubated, airway widely patent, no obstructive noises. NECK: Trachea midline. Supple. CARDIOVASCULAR: Regular rate and rhythm. S1, S2 no S4. RESPIRATORY: Shallow excursions with spontaneous breathing. Generally clear breath sounds. Right chest tube removed, chest x-ray good. GASTROINTESTINAL: Abdomen soft, non-tender, nondistended. Active bowel sounds. No guarding. MUSCULOSKELETAL: Extremities well perfused. Left upper extremity currently in splint wrapped in Armen bandage. Fingers below warm NEUROLOGICAL: He follows commands slowly on bilateral upper extremities and withdraws bilateral lower extremity. Pupils are unequal right 2 mm reactive left is 5 mm nonreactive Assessment and Plan - Assessment and Plan Plan: Neuro/Psych: Acute metabolic encephalopathy Anisocoria EtOH abuse Recent cocaine/opiate abuse -inhaled. Denies intravenous MVI/ folate. Patient states he inhaled cocaine 4-5 days prior to admission. Denies IV drug use. Discontinued acetaminophen and related products with elevated transaminases Stat CT of the head for unequal pupil, negative for acute findings Encephalopathy improved enough to allow extubation 07/18. Check ammonia level as needed due to encephalopathy. Resume lactulose following G-tube placement by IR CV: Severe sepsis Lactic acidosis Elevated troponin likely demand ischemia Right carotid artery stenosis Elevated CPK Cardiology Dr. chaudhry. No intervention planned 2D echocardiogram revealed Normal left ventricular size. Wall thickness is normal. The left ventricular systolic function is normal with an estimated ejection fraction in the range of 55-60%. Not on aspirin or heparin at this time due to thrombocytopenia Followed by vascular surgery for right carotid artery stenosis 80%. Resp: Acute hypoxemic respiratory failure Right lower lobe pneumonia with effusion Emphysematous type changes on CT neck Hyperammonemia Hypoalbuminemia Tobacco abuse Emergently intubated and placed on mechanical ventilation. PRVC/AC 07/13/2018 Incentive spirometry. Extubated 07/18 Chest tube removed 07/19, chest x-ray after with the right lung well expanded. GI: Elevated transaminases Elevated total bilirubin Poss acalc jody Hypoalbuminemia Noted CT abdomen/pelvis revealed possible early cholecystitis. Pericholecystic fluid. Ultrasound revealed negative Lundy sign. Nuclear medicine scan revealed no activity in the intrahepatic ductal compound bile duct or small bowel. 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 Patent MIC, celiac. Evaluated by gastroenterology. Needs G tube. Hepatitis panel negative. Pending ceruloplasmin, BOBBY, AMA, ASMA, SSA AMB, anti-Ronquillo, RP, scleroderma, double-stranded DNA, hemochromatosis Currently on lactulose 30 cc 3 times daily for elevated ammonia. Resume tube feeds once G-tube placed by IR Check ammonia level. Endo: Sliding scale insulin with Accu-Cheks to maintain euglycemia/every 6 hours low regimen TSH 1. Cortisol 25 Glucose control acceptable Renal: Acute kidney failure Hyponatremia Hypokalemia Avoid nephrotoxic medication. Discontinued vancomycin 07/11 Convert fluid to D5 water with KCl 10 mEq/L Monitor and replete electrolytes Heme: Macrocytic anemia Thrombocytopenia Coagulopathic state Follow-up on PT/INR Platelet transfusion ordered prior to G-tube placement by IR ID: MRSA bacteremia Septic shock Right lower lobe pneumonia/aspiration 2D transthoracic echocardiogram revealed no signs of endocarditis. Infectious disease following Currently on daptomycin and Zosyn. Zyvox added for gram-positive coverage for presumed pneumonia Pleural fluid studies have no evidence of infection MSK: Left posterior olecranon fracture Followed by Dr. Blanco, splint immobilized. Follow-up in 2 weeks with x-rays F/u CT left elbow FEN: Replace electrolytes as clinically indicated Access -Utilize peripheral IV. Prophylaxis -GI -pantoprazole -DVT-SCD/hold off chemical DVT prophylaxis due to severe thrombocytopenia, prolonged INR Overall impression: Patient remains ill and quite lethargic. Care complicated by hepatic dysfunction, acute renal failure and sepsis. He has tolerated extubation and protects his airway adequately. Palliative care following. Patient made DNR status. Will consult and transfer to hospitalist service for further medical management , critical care will be signing off. Please reconsult if needed.
--- NOTE | 2018-07-22 16:26 | IR ---
EXAM DATE: 07/22/2018 3:25 PM EST AGE/SEX: 63 years / Male INDICATIONS: Patient with history of Intestinal Varices in need of Gastrostomy Tube placement for nu trition. CLINICAL DATA: This is the patient's initial encounter. Patient reports that signs and symptoms have been present for 4 - 6 days and indicates a pain score of 4/10. MEDICAL/SURGICAL HISTORY: . Syncope, Left elbow fracture, Chest pain. None. COMPARISON: No prior exams available for comparison. FLUORO TIME (min): 3.41 IMAGE SERIES: 4 RADIATION DOSE: 30 mGy SEDATION TIME (min): 30 CONTRAST (cc): 10 Omnipaque (iohexol) 350 MEDICATION(S): 3 mg midazolam (Versed) IV 150 mcg fentanyl (Sublimaze) IV 1 g cefazolin (Ancef) IV 1 mg Glucagon Prophylactic antibiotics were administered with appropriate pre-procedure timing. Vancomycin within 2 hrs of procedure, Ancef (or alternative) within 1 hr of procedure. DEVICE(S): 18 Japanese gastrostomy tube . . PROCEDURE: 1. Limited abdominal ultrasound. 2. Fluoroscopically guided gastrostomy tube placement. 3. Conscious sedation with continuous EKG and oximetry monitoring. The risks, benefits and alternatives to the procedure were explained and verbal and written consent w as obtained. The site was prepped in sterile fashion. Full sterile technique was used, including ca p, mask, sterile gloves and gown and a large sterile sheet. Hand hygiene and 2% chlorhexidine and/or betadine/alcohol prep was utilized per protocol for cutaneous antisepsis. The skin and subcutaneous tissues were infiltrated with local anesthetic solution. Sterile gel and sterile probe cover were u tilized for ultrasound guidance. Ultrasound was used to latonya the position of the liver. The stomach was insufflated with room air. Th ree percutaneous fasteners were placed to secure the anterior gastric wall. A small incision was made between the fasteners. The stomach was accessed with an 18 gauge needle. A n 0.035 wire was advanced into the small bowel. The tract was dilated. The gastrostomy tube was int roduced through a peel-away sheath. The position was confirmed with an injection of contrast. Conscious sedation was performed with the prescribed dosages and duration as above in the presence of an independent trained radiology nurse to assist in the monitoring of the patient. EKG and oximetry remained stable throughout the procedure. The patient tolerated the procedure well and there were n o complications. The patient was sent to post anesthesia recovery in stable condition. CONCLUSION: 1. Uncomplicated gastrostomy tube placement as above. Electronically signed by: Randall Morgan MD Board Certified Radiologist 07/22/2018 4:24 PM GENE T
--- NOTE | 2018-07-22 16:46 | P.PNNP ---
Subjective Interval history: Patient is minimally responsive. S/p G tube placement. Now DNR. <Edel Lantigua - Last Filed: 07/22/18 16:43> Physical Exam Vital signs: Vital Signs 07/21/18 17:00 07/21/18 18:00 07/21/18 19:00 Temperature Pulse Rate 88 97 H 85 Respiratory Rate 15 25 H 15 Blood Pressure 140/77 127/59 L 136/64 Pulse Oximetry 97 93 L 95 07/21/18 20:00 07/21/18 21:00 07/21/18 21:51 Temperature 98.9 F Pulse Rate 93 H 80 Respiratory Rate 33 H 20 Blood Pressure 129/60 155/68 H Pulse Oximetry 95 96 93 L 07/21/18 22:00 07/21/18 23:00 07/22/18 00:00 Temperature 97.9 F Pulse Rate 82 84 78 Respiratory Rate 24 26 H 24 Blood Pressure 147/67 H 139/65 131/61 Pulse Oximetry 94 L 93 L 95 07/22/18 01:00 07/22/18 02:00 07/22/18 03:00 Temperature Pulse Rate 78 79 77 Respiratory Rate 23 19 19 Blood Pressure 129/63 136/59 L 129/66 Pulse Oximetry 91 L 89 L 94 L 07/22/18 04:00 07/22/18 05:00 07/22/18 06:00 Temperature 98.2 F Pulse Rate 78 77 80 Respiratory Rate 18 19 22 Blood Pressure 148/70 H 154/70 H 155/72 H Pulse Oximetry 93 L 97 91 L 07/22/18 07:00 07/22/18 08:00 07/22/18 09:00 Temperature 98.1 F Pulse Rate 82 79 81 Respiratory Rate 26 H 28 H 24 Blood Pressure 151/66 H 172/77 H 163/75 H Pulse Oximetry 93 L 97 96 07/22/18 09:51 07/22/18 10:00 07/22/18 11:00 Temperature Pulse Rate 83 90 Respiratory Rate 29 H 26 H Blood Pressure 160/72 H 154/78 H Pulse Oximetry 97 97 97 07/22/18 12:00 07/22/18 12:22 07/22/18 12:25 Temperature 97.6 F 97.6 F Pulse Rate 85 89 Respiratory Rate 18 23 Blood Pressure 155/99 H 155/99 H Pulse Oximetry 100 99 07/22/18 12:37 07/22/18 12:55 07/22/18 13:00 Temperature 97.8 F Pulse Rate 91 H 92 H 90 Respiratory Rate 23 24 28 H Blood Pressure 139/71 139/71 143/78 H Pulse Oximetry 94 L 94 L 94 L 07/22/18 14:08 Temperature 98.0 F Pulse Rate 92 H Respiratory Rate 20 Blood Pressure 154/66 H Pulse Oximetry 98 Intake & Output 07/21/18 07/22/18 07/22/18 18:59 06:59 18:59 Intake Total 2510 / 2510 1005 / 1005 625 / 625 Output Total 650 / 650 750 / 750 Balance 1860 / 1860 255 / 255 625 / 625 Weight 61 kg Intake: IV 2510 / 2510 1005 / 1005 250 / 250 KCl Inj 10 MEQ In D5W Inj 1,000 2009 1005 / 1005 ML @ 125 mls/hr IV.CONT .Q8H3M [facility] Rx#:[id number] Cubicin Inj 400 MG In NS Inj 100 / 100 100 ML @ 200 mls/hr IV.SIG Q48H [facility] Rx#:[id number] KCl 20 mEq Premix Inj 20 meq In 400 / 400 200 / 200 100 ml @ 50 mls/hr IV.SIG Q2H [facility] Rx#:[id number] Ancef 1 GM Premix Inj 1 gm In 50 / 50 50 ml @ 0 mls/hr IV.SIG .STK- [facility] Rx#:[id number] Oral 0 / 0 Intake (Blood Product) Amt 375 / 375 Plt Pheresis A Leukored Pas 189 / 189 Unit [id number] Plt Pheresis B Leukored Pas 186 / 186 Unit [id number] Output: Urine 650 / 650 Urine Amount (Catheter) 750 / 750 Condom 750 / 750 Chest Tube Drainage 0 / 0 Right 0 / 0 Other: Date of Last Bowel Movement 07/19/18 07/19/18 07/19/18 # Bowel Movements 0 Narrative: GENERAL: Lethargic NAD SKIN: Warm and dry. NECK: Supple, trachea midline. No JVD. CARDIOVASCULAR: Regular rate and rhythm without murmurs, gallops, or rubs. RESPIRATORY: Breath sounds coarse sounding. GASTROINTESTINAL: Abdomen soft, non-tender, nondistended. GENITOURINARY: Condom catheter, dark yellow urine. MUSCULOSKELETAL: No cyanosis, no edema. . - Urinary Catheter Management Indwelling Urethral Catheter Cath placed during this visit: yes, but has since been removed by the nurse Reason for continuing: Decision to DC catheter Insertion date: 07/12/18 Insertion time: 07:45 Removal date: 07/19/18 Removal time: 10:45 Condom Cath placed during this visit: yes Reason for continuing: Not indwelling catheter Insertion date: 07/19/18 Insertion time: 10:50 <Edel Lantigua - Last Filed: 07/22/18 16:43> Vital signs: Vital Signs 07/21/18 21:51 07/21/18 22:00 07/21/18 23:00 Temperature Pulse Rate 82 84 Respiratory Rate 24 26 H Blood Pressure 147/67 H 139/65 Pulse Oximetry 93 L 94 L 93 L 07/22/18 00:00 07/22/18 01:00 07/22/18 02:00 Temperature 97.9 F Pulse Rate 78 78 79 Respiratory Rate 24 23 19 Blood Pressure 131/61 129/63 136/59 L Pulse Oximetry 95 91 L 89 L 07/22/18 03:00 07/22/18 04:00 07/22/18 05:00 Temperature 98.2 F Pulse Rate 77 78 77 Respiratory Rate 19 18 19 Blood Pressure 129/66 148/70 H 154/70 H Pulse Oximetry 94 L 93 L 97 07/22/18 06:00 07/22/18 07:00 07/22/18 08:00 Temperature 98.1 F Pulse Rate 80 82 78 Respiratory Rate 22 26 H 28 H Blood Pressure 155/72 H 151/66 H 172/77 H Pulse Oximetry 91 L 93 L 97 07/22/18 09:00 07/22/18 09:51 07/22/18 10:00 Temperature Pulse Rate 81 82 Respiratory Rate 24 29 H Blood Pressure 163/75 H 160/72 H Pulse Oximetry 96 97 97 07/22/18 11:00 07/22/18 12:00 07/22/18 12:22 Temperature 97.6 F Pulse Rate 90 84 89 Respiratory Rate 26 H 18 23 Blood Pressure 154/78 H 155/99 H 155/99 H Pulse Oximetry 97 100 99 07/22/18 12:25 07/22/18 12:37 12/18/18 12:55 Temperature 97.6 F 97.8 F Pulse Rate 91 H 92 H Respiratory Rate 23 24 Blood Pressure 139/71 139/71 Pulse Oximetry 94 L 94 L 07/22/18 13:00 07/22/18 14:00 07/22/18 14:08 Temperature 98.0 F Pulse Rate 90 91 H 92 H Respiratory Rate 28 H 24 20 Blood Pressure 143/78 H 154/66 H 154/66 H Pulse Oximetry 94 L 98 98 07/22/18 15:06 07/22/18 15:24 07/22/18 15:39 Temperature Pulse Rate 94 H 89 108 H Respiratory Rate 32 H 34 H 34 H Blood Pressure 144/67 H 165/70 H Pulse Oximetry 94 L 92 L 91 L 07/22/18 15:54 07/22/18 16:00 07/22/18 16:09 Temperature 98.2 F Pulse Rate 88 87 89 Respiratory Rate 34 H 34 H 36 H Blood Pressure 162/70 H 146/67 H Pulse Oximetry 93 L 93 L 94 L 07/22/18 16:24 07/22/18 16:39 07/22/18 16:54 Temperature Pulse Rate 85 85 84 Respiratory Rate 38 H 20 28 H Blood Pressure 138/61 143/75 H 146/69 H Pulse Oximetry 94 L 95 95 07/22/18 17:00 07/22/18 17:09 07/22/18 17:24 Temperature Pulse Rate 85 86 84 Respiratory Rate 25 H 23 21 Blood Pressure 143/68 H 136/103 H Pulse Oximetry 96 95 95 07/22/18 17:39 07/22/18 17:54 07/22/18 18:00 Temperature Pulse Rate 86 87 87 Respiratory Rate 30 H 28 H 27 H Blood Pressure 146/100 H 145/67 H Pulse Oximetry 94 L 87 L 87 L 07/22/18 18:09 07/22/18 18:24 07/22/18 18:39 Temperature Pulse Rate 102 H 92 H 90 Respiratory Rate 30 H 31 H 31 H Blood Pressure 152/75 H 146/67 H 141/66 H Pulse Oximetry 88 L 92 L 90 L 07/22/18 18:54 07/22/18 19:00 07/22/18 19:09 Temperature Pulse Rate 90 90 92 H Respiratory Rate 28 H 31 H 27 H Blood Pressure 108/53 L 117/58 L Pulse Oximetry 89 L 84 L 92 L 07/22/18 19:24 07/22/18 19:39 07/22/18 19:57 Temperature Pulse Rate 87 97 H Respiratory Rate 24 33 H Blood Pressure 128/92 H 136/71 Pulse Oximetry 96 97 96 Intake & Output 07/22/18 07/22/18 07/23/18 06:59 18:59 06:59 Intake Total 1005 / 1005 725 / 725 Output Total 750 / 750 575 / 575 Balance 255 / 255 150 / 150 Weight 61 kg Intake: IV 1005 / 1005 350 / 350 KCl Inj 10 MEQ In D5W Inj 1,000 1005 / 1005 ML @ 125 mls/hr IV.CONT .Q8H3M [facility] Rx#:[id number] KCl 20 mEq Premix Inj 20 meq In 300 / 300 100 ml @ 50 mls/hr IV.SIG Q2H [facility] Rx#:[id number] Ancef 1 GM Premix Inj 1 gm In 50 / 50 50 ml @ 0 mls/hr IV.SIG .STK- [facility] Rx#:[id number] Oral 0 / 0 Intake (Blood Product) Amt 375 / 375 Plt Pheresis A Leukored Pas 189 / 189 Unit [id number] Plt Pheresis B Leukored Pas 186 / 186 Unit [id number] Output: Urine Amount (Catheter) 750 / 750 575 / 575 Condom 750 / 750 575 / 575 Chest Tube Drainage 0 / 0 Right 0 / 0 Other: # Voids 5 # Incontinent Voids 5 Date of Last Bowel Movement 07/19/18 07/19/18 # Bowel Movements 0 0 - Urinary Catheter Management Indwelling Urethral Catheter Cath placed during this visit: no Condom Cath placed during this visit: no <Dina Rivas - Last Filed: 07/22/18 21:40> Assessment and Plan - Assessment (1) Acute kidney injury Code(s): N17.9 - Acute kidney failure, unspecified Status: Acute Plan: No previous history of chronic kidney disease. Has electrolyte disorder with high sodium and low K. Creatinine started to increase on the 6th NEERU possible ATN from sepsis or contrast Nephropathy. Creatinine started to increase about 48 hours after receiving contrast. Also possibility of AIN with vancomycin use however random level not elevated. Urine EOS negative. CT of abdomen shows kidney with in normal limits. Avoid Nephrotoxins. Follow the urine out put and BMP. No new BMP today will order for 1800. S/P G tube Labs in AM (2) Hypernatremia Code(s): E87.0 - Hyperosmolality and hypernatremia Status: Acute Plan: Sodium level at elevated, on D5W (3) Respiratory failure Code(s): J96.90 - Respiratory failure, unspecified, unspecified whether with hypoxia or hypercapnia Status: Acute Plan: Extubated 07/18, on NC with good sats (4) Bacteremia Code(s): R78.81 - Bacteremia Status: Acute Plan: On antibiotics , afebrile. <Edel Lantigua - Last Filed: 07/22/18 16:43> - Assessment (1) Acute kidney injury Code(s): N17.9 - Acute kidney failure, unspecified Status: Acute Plan: Patient seen and examined, agree with above. Has GT tube done, to start feeding. (2) Hypernatremia Code(s): E87.0 - Hyperosmolality and hypernatremia Status: Acute (3) Respiratory failure Code(s): J96.90 - Respiratory failure, unspecified, unspecified whether with hypoxia or hypercapnia Status: Acute (4) Bacteremia Code(s): R78.81 - Bacteremia Status: Acute <Dina Rivas - Last Filed: 07/22/18 21:40>
[2018-07-22] MEDS ORDERED: Potassium Chlor 20 mEq Premix 20 MEQ/100 ML PIGGYBACK IV.SIG SCH (18:15)
[2018-07-22 20:35] LABS: Calcium 8.9 mg/dL (8.5-10.1); Carbon Dioxide 29.1 meq/L (21.0-32.0); Potassium 3.6 meq/L (3.5-5.1)
[2018-07-22] MEDS ORDERED: Permethrin 1% Lotion 60 ML Bottle TOPICAL ONE (22:24)
[2018-07-23] MEDS: Oral Hygiene Kit OROPHARYNG SCH ×4 (00:21→16:52)
[2018-07-23] MEDS: Potassium Chloride Inj 10 MEQ in Dextrose 5% in Water Inj 1,000 ML IV.CONT SCH ×6 (01:04→18:08)
[2018-07-23] MEDS: Morphine Inj 4 MG/ML Vial IV.PUSH PRN ×4 (02:20→20:55)
[2018-07-23 02:56] LABS: Baso # (Auto) 0.2 th/mm3 (0.0-0.2); Baso % (Auto) 1.5 % (0.0-2.0); Eos # (Auto) 0.2 th/mm3 (0.0-0.4); Eos % (Auto) 2.3 % (0.0-4.0); Hematocrit 32.5 % (39.0-51.0); Hemoglobin 10.9 gm/dL (13.0-17.0); Lymph # (Auto) 1.6 th/mm3 (1.0-4.8); Lymph % (Auto) 16.2 % (9.0-44.0); Mean Corpuscular HGB Conc 33.6 % (32.0-36.0); Mean Corpuscular Hemoglobin 34.1 pg (27.0-34.0); Mean Corpuscular Volume 101.6 fL (80.0-100.0); Mean Platelet Volume 10.5 fL (7.0-11.0); Mono # (Auto) 0.8 th/mm3 (0.0-0.9); Neut # (Auto) 7.3 th/mm3 (1.8-7.7); Platelet Count 69 th/mm3 (150-450); Red Cell Distribution Width 15.9 % (11.6-17.2); White Blood Count 10.2 th/mm3 (4.0-11.0)
[2018-07-23 03:13] LABS: Alanine Aminotransferase 170 U/L (12-78); Albumin 2.4 g/dL (3.4-5.0); Alkaline Phosphatase 102 U/L (45-117); Anion Gap 7 meq/L (5-15); Aspartate Aminotransferase 169 U/L (15-37); Blood Urea Nitrogen 27 mg/dL (7-18); Calcium 8.3 mg/dL (8.5-10.1); Carbon Dioxide 29.4 meq/L (21.0-32.0); Chloride 115 meq/L (98-107); Creatine Kinase 60 U/L (39-308); Glomerular Filtration Rate 67 mL/min (>89); Glucose,Random 121 mg/dL (74-106); Magnesium 1.6 mg/dL (1.5-2.5); Potassium 3.6 meq/L (3.5-5.1); Sodium 151 meq/L (136-145); Total Protein 6.4 g/dL (6.4-8.2)
[2018-07-23 03:44] LABS: Eosinophils 5 % (0-4); Lymphocytes 7 % (9-44); Metamyelocytes 1 % (0-1); Monocytes 5 % (0-8)
[2018-07-23 03:45] LABS: Platelet Morphology Normal (Normal)
[2018-07-23 03:48] LABS: Target Cells 1+
[2018-07-23] MEDS: Pantoprazole Inj 40 MG Vial IV.PUSH SCH (08:52)
[2018-07-23] MEDS: Chlorhexidine 0.12% Oral Kit 15 ML UDC OROPHARYNG SCH ×2 (08:53→20:14)
[2018-07-23] MEDS: Mupirocin 2% Nasal Oint Topical Syringe EACH NARE SCH ×2 (08:53→20:13)
--- NOTE | 2018-07-23 09:10 | P.PNCA ---
Subjective Interval history: Patient is more alert today and follows commands. Patient complains of SOB and generalized pain. Medications and Allergies Allergies Allergy/AdvReac Type Severity Reaction Status Date / Time No Known Allergies Allergy Verified 07/08/18 12:30 Home Medications Medication Instructions Recorded Confirmed Type No Known Home Medications 07/08/18 07/08/18 History Active Medications: Active Medications Al Hydroxide/Mg Hydroxide (Milk Of Magnesia Liq) 30 ml PO Q12H PRN PRN Reason: Mild Constipation Albuterol (Albuterol Neb (Prn)) 2.5 mg NEB Q2HR NEB PRN PRN Reason: DYSPNEA Albuterol (Duoneb Neb (Prn)) 1 ampul NEB Q2HR NEB PRN PRN Reason: SHORTNESS OF BREATH Last Admin: 07/14/18 08:20 Dose: 1 ampul Chlorhexidine Gluconate (Peridex 0.12% Oral Kit) 15 ml OROPHARYNG BID@0800, 2000 [facility] Last Admin: 07/23/18 08:53 Dose: 15 ml Flumazenil (Romazecon Inj) 0.2 mg IV.PUSH Q1M PRN PRN Reason: OVERSEDATION Haloperidol Lactate (Haldol Inj) 1 mg IV.PUSH Q15M PRN PRN Reason: for severe agitation Last Admin: 07/21/18 21:43 Dose: 1 mg Hydralazine HCl (Apresoline Inj) 20 mg IV.PUSH Q4H PRN PRN Reason: Sys Bp Greater Than 165 [facility] Last Admin: 07/21/18 14:07 Dose: 20 mg Daptomycin 400 mg/ Sodium (Chloride) 100 mls @ 200 mls/hr IV.SIG Q48H [facility] Stop: 07/23/18 23:00 Last Infusion: 07/21/18 12:40 Dose: Infused Potassium Chloride 10 meq/ (Dextrose) 1,005 mls @ 125 mls/hr IV.CONT .Q8H3M [facility] Last Admin: 07/23/18 08:55 Dose: 125 mls/hr Labetalol HCl (Trandate Inj) 10 mg IV.PUSH Q1H PRN PRN Reason: Sbp>165, Dbp>90, Hr>65 Lactulose (Lactulose Liq) 30 ml PO DAILY PRN PRN Reason: SEVERE CONSITIPATION Lactulose (Lactulose Liq) 30 ml PO TID [facility] Last Admin: 07/23/18 08:52 Dose: 30 ml Lorazepam (Ativan) 1 mg PO Q4H PRN PRN Reason: for CIWA 8-10 Lorazepam (Ativan) 2 mg PO Q2H PRN PRN Reason: for CIWA 11-14 Lorazepam (Ativan Inj) 2 mg IV.PUSH Q2H PRN PRN Reason: for CIWA 11-14 Last Admin: 07/20/18 11:13 Dose: 2 mg Lorazepam (Ativan Inj) 2 mg IV.PUSH Q1H PRN PRN Reason: for CIWA 15-20 Last Admin: 07/11/18 21:37 Dose: 2 mg Lorazepam (Ativan Inj) 2 mg IV.PUSH Q15M PRN PRN Reason: for CIWA > 20 Last Admin: 07/22/18 15:30 Dose: 2 mg Lorazepam (Ativan Inj) 1 mg IV.PUSH Q4H PRN PRN Reason: for CIWA 8-10 Last Admin: 07/20/18 00:45 Dose: 1 mg Metoprolol Tartrate (Lopressor Inj) 2.5 mg IV.PUSH Q6H PRN PRN Reason: BLOOD PRESSURE MANAGEMENT Miscellaneous Medication () 1 each OROPHARYNG 0000,0400,1200,1600 [facility] Last Admin: 07/23/18 04:31 Dose: 1 each Morphine Sulfate (Morphine Inj) 2 mg IV.PUSH Q4H PRN PRN Reason: BREAKTHROUGH PAIN Last Admin: 07/23/18 08:55 Dose: 2 mg Mupirocin (Bactroban 2% Nasal Oint) 1 applicatio EACH NARE BID [facility] Last Admin: 07/23/18 08:53 Dose: 1 applicatio Naloxone HCl (Narcan Inj) 0.4 mg IV.PUSH UNSCH PRN PRN Reason: SEE LABEL COMMENTS Ondansetron HCl (Zofran Inj) 4 mg IV.PUSH Q6H PRN PRN Reason: NAUSEA OR VOMITING Pantoprazole Sodium (Protonix Inj) 40 mg IV.PUSH DAILY [facility] Last Admin: 07/23/18 08:52 Dose: 40 mg Sennosides (Senokot) 17.2 mg PO Q12H PRN PRN Reason: Moderate Constipation Sodium Chloride (Ns Flush) 2 ml IV.FLUSH PRN PRN PRN Reason: FLUSH AFTER USING IV ACCESS Last Admin: 07/20/18 20:10 Dose: 2 ml Sodium Chloride (Ns Flush) 2 ml IV.FLUSH BID [facility] Last Admin: 07/23/18 08:52 Dose: 2 ml Physical Exam Vital signs: Vital Signs 07/22/18 09:51 07/22/18 10:00 07/22/18 11:00 Temperature Pulse Rate 82 90 Respiratory Rate 29 H 26 H Blood Pressure 160/72 H 154/78 H Pulse Oximetry 97 97 97 07/22/18 12:00 07/22/18 12:22 07/22/18 12:25 Temperature 97.6 F 97.6 F Pulse Rate 84 89 Respiratory Rate 18 23 Blood Pressure 155/99 H 155/99 H Pulse Oximetry 100 99 07/22/18 12:37 07/22/18 12:55 07/22/18 13:00 Temperature 97.8 F Pulse Rate 91 H 92 H 90 Respiratory Rate 23 24 28 H Blood Pressure 139/71 139/71 143/78 H Pulse Oximetry 94 L 94 L 94 L 07/22/18 14:00 07/22/18 14:08 07/22/18 15:06 Temperature 98.0 F Pulse Rate 91 H 92 H 94 H Respiratory Rate 24 20 32 H Blood Pressure 154/66 H 154/66 H Pulse Oximetry 98 98 94 L 07/22/18 15:24 07/22/18 15:39 07/22/18 15:54 Temperature Pulse Rate 89 108 H 88 Respiratory Rate 34 H 34 H 34 H Blood Pressure 144/67 H 165/70 H 162/70 H Pulse Oximetry 92 L 91 L 93 L 07/22/18 16:00 07/22/18 16:09 07/22/18 16:24 Temperature 98.2 F Pulse Rate 87 89 85 Respiratory Rate 34 H 36 H 38 H Blood Pressure 146/67 H 138/61 Pulse Oximetry 93 L 94 L 94 L 07/22/18 16:39 07/22/18 16:54 07/22/18 17:00 Temperature Pulse Rate 85 84 85 Respiratory Rate 20 28 H 25 H Blood Pressure 143/75 H 146/69 H Pulse Oximetry 95 95 96 07/22/18 17:09 07/22/18 17:24 07/22/18 17:39 Temperature Pulse Rate 86 84 86 Respiratory Rate 23 21 30 H Blood Pressure 143/68 H 136/103 H 146/100 H Pulse Oximetry 95 95 94 L 07/22/18 17:54 07/22/18 18:00 07/22/18 18:09 Temperature Pulse Rate 87 87 102 H Respiratory Rate 28 H 27 H 30 H Blood Pressure 145/67 H 152/75 H Pulse Oximetry 87 L 87 L 88 L 07/22/18 18:24 07/22/18 18:39 07/22/18 18:54 Temperature Pulse Rate 92 H 90 90 Respiratory Rate 31 H 31 H 28 H Blood Pressure 146/67 H 141/66 H 108/53 L Pulse Oximetry 92 L 90 L 89 L 07/22/18 19:00 07/22/18 19:09 07/22/18 19:24 Temperature Pulse Rate 90 92 H 87 Respiratory Rate 31 H 27 H 24 Blood Pressure 117/58 L 128/92 H Pulse Oximetry 84 L 92 L 96 07/22/18 19:39 07/22/18 19:54 07/22/18 19:57 Temperature Pulse Rate 97 H 97 H Respiratory Rate 33 H 30 H Blood Pressure 136/71 130/61 Pulse Oximetry 97 96 96 07/22/18 20:00 07/22/18 20:09 07/22/18 20:10 Temperature 98.6 F Pulse Rate 89 88 87 Respiratory Rate 23 24 30 H Blood Pressure 130/61 128/63 129/64 Pulse Oximetry 95 99 99 07/22/18 21:00 07/22/18 22:00 07/22/18 23:00 Temperature Pulse Rate 83 90 85 Respiratory Rate 23 30 H 42 H Blood Pressure 122/57 L 136/66 144/73 H Pulse Oximetry 92 L 93 L 94 L 07/23/18 00:00 07/23/18 01:00 07/23/18 02:00 Temperature 97.8 F Pulse Rate 83 78 77 Respiratory Rate 36 H 31 H 40 H Blood Pressure 143/67 H 120/59 L 127/68 Pulse Oximetry 96 96 94 L 07/23/18 03:00 07/23/18 04:00 07/23/18 05:00 Temperature 99.2 F Pulse Rate 80 80 80 Respiratory Rate 21 23 28 H Blood Pressure 133/64 138/65 143/67 H Pulse Oximetry 95 97 97 07/23/18 06:00 Temperature Pulse Rate 78 Respiratory Rate 54 H Blood Pressure 140/67 Pulse Oximetry 96 Intake & Output 07/22/18 07/23/18 07/23/18 18:59 06:59 18:59 Intake Total 725 / 725 1205 / 1205 1000 / 1000 Output Total 575 / 575 435 / 435 Balance 150 / 150 770 / 770 1000 / 1000 Weight 61 kg Intake: IV 350 / 350 1105 / 1105 1000 / 1000 KCl Inj 10 MEQ In D5W Inj 1,000 1005 / 1005 1000 / 1000 ML @ 125 mls/hr IV.CONT .Q8H3M [facility] Rx#:[id number] KCl 20 mEq Premix Inj 20 meq In 300 / 300 100 / 100 100 ml @ 50 mls/hr IV.SIG Q2H [facility] Rx#:[id number] Ancef 1 GM Premix Inj 1 gm In 50 / 50 50 ml @ 0 mls/hr IV.SIG .STK- [facility] Rx#:[id number] Oral 0 / 0 Tube Irrigant 100 / 100 Intake (Blood Product) Amt 375 / 375 Plt Pheresis A Leukored Pas 189 / 189 Unit [id number] Plt Pheresis B Leukored Pas 186 / 186 Unit [id number] Output: Urine Amount (Catheter) 575 / 575 435 / 435 Condom 575 / 575 435 / 435 Chest Tube Drainage 0 / 0 Right 0 / 0 Other: # Voids 5 # Incontinent Voids 5 3 Date of Last Bowel Movement 07/19/18 07/19/18 # Bowel Movements 0 0 - Constitutional no acute distress - Routine HEENT Exam Head: Present: normocephalic ENT: Present: mucous membranes moist Comments: chronic dilation of the left pupil - Routine Neck Exam Present: supple - Routine Respiratory Exam Present: rhonchi Comments: rhonchi throughout. - Routine Cardiovascular Exam Present: S1, S2 - Routine Abdominal Exam Present: normoactive bowel sounds - Routine Extremities Exam Present: pulses intact, normal capillary refill. Absent: cyanosis, clubbing, edema - Routine Skin Exam Present: intact - Routine Neurological Exam Present: altered mental status - Detailed Neurological Exam: Coma Scale Eye Opening: To sound Verbal Response: Confused Motor Response: Obey commands [place] Coma Scale Total: 13 - Routine Psychiatric Exam Present: unable to assess - Urinary Catheter Management Indwelling Urethral Catheter Cath placed during this visit: yes, but has since been removed by the nurse Reason for continuing: Decision to DC catheter Insertion date: 07/12/18 Insertion time: 07:45 Removal date: 07/19/18 Removal time: 10:45 Condom Cath placed during this visit: yes Reason for continuing: Not indwelling catheter Insertion date: 07/19/18 Insertion time: 10:50 Results 07/23/18 02:40 07/23/18 02:40 Cardiac Enzymes 07/23/18 Range/Units 02:40 AST 169 H (15-37) U/L Coagulation 07/22/18 Range/Units 06:15 PT 18.7 H (9.8-11.6) sec CBC 07/22/18 07/23/18 Range/Units 06:15 02:40 WBC 10.3 10.2 (4.0-11.0) th/mm3 RBC 3.34 L 3.20 L (4.50-5.90) mil/mm3 Hgb 11.6 L 10.9 L (13.0-17.0) gm/dL Hct 33.5 L 32.5 L (39.0-51.0) % Plt Count 40 L 69 L D (150-450) th/mm3 Neut # (Auto) 7.3 (1.8-7.7) th/mm3 Lymph # (Auto) 1.6 (1.0-4.8) th/mm3 [place] # (Auto) 0.8 (0.0-0.9) th/mm3 Eos # (Auto) 0.2 (0.0-0.4) th/mm3 Baso # (Auto) 0.2 (0.0-0.2) th/mm3 Comprehensive Metabolic Panel 07/22/18 07/23/18 Range/Units 19:20 02:40 Sodium 152 H 151 H (136-145) meq/L Potassium 3.6 3.6 (3.5-5.1) meq/L Chloride 117 H 115 H (98-107) meq/L Carbon Dioxide 29.1 29.4 (21.0-32.0) meq/L BUN 28 H 27 H (7-18) mg/dL Creatinine 1.13 1.12 (0.60-1.30) mg/dL Calcium 8.9 8.3 L (8.5-10.1) mg/dL AST 169 H (15-37) U/L ALT 170 H (12-78) U/L Alkaline Phosphatase 102 (45-117) U/L Total Protein 6.4 (6.4-8.2) g/dL Albumin 2.4 L (3.4-5.0) g/dL Intake and Output 07/22/18 07/23/18 07/23/18 22:59 06:59 14:59 Intake Total 300 / 300 1105 / 1105 1000 / 1000 Output Total 575 / 575 435 / 435 Balance -275 / -275 670 / 670 1000 / 1000 Intake: IV 300 / 300 1005 / 1005 1000 / 1000 KCl Inj 10 MEQ In D5W Inj 1,000 1005 / 1005 1000 / 1000 ML @ 125 mls/hr IV.CONT .Q8H3M [facility] Rx#:[id number] KCl 20 mEq Premix Inj 20 meq In 300 / 300 100 ml @ 50 mls/hr IV.SIG Q2H [facility] Rx#:[id number] Oral 0 / 0 Tube Irrigant 100 / 100 Output: Urine Amount (Catheter) 575 / 575 435 / 435 Condom 575 / 575 435 / 435 Chest Tube Drainage 0 / 0 Right 0 / 0 Other: # Voids 5 # Incontinent Voids 5 3 Date of Last Bowel Movement 07/19/18 07/19/18 # Bowel Movements 0 0 Weight 61 kg - Imaging and Cardiology Imaging: Impressions Gastrostomy Tube Placement 07/22/18 00:00 CONCLUSION: 1. Uncomplicated gastrostomy tube placement as above. Assessment and Plan - Assessment (1) Chest pain Code(s): R07.9 - Chest pain, unspecified Status: Acute (2) Elevated troponin level Code(s): R74.8 - Abnormal levels of other serum enzymes Status: Acute (3) Liver failure Code(s): K72.90 - Hepatic failure, unspecified without coma Status: Acute (4) Hyperbilirubinemia Code(s): E80.6 - Other disorders of bilirubin metabolism Status: Acute - Plan Patient's renal function continues to improve, renal evaluation in progress. Patient's BP is more controlled at this time, we will continue with current treatment plan. Patient is more alert today, neurology evaluation in progress. We will continue to monitor patient during hospitalization. The patient was seen and evaluated by Dr. Gonzalez who participated in care, management and decision making. - Attending Attestation Patient seen and examined. I reviewed and agree with the evaluation and plan as presented. Continue ICU care. No new cardiac issues. Increase activity, PT.
--- NOTE | 2018-07-23 10:51 | P.PNNP ---
Subjective Interval history: Patient is lethargic, does respond to questions with persistence. Creatinine continues to improve at 1.12 today with good urinary output. <Edel Lantigua - Last Filed: 07/23/18 14:33> Physical Exam Vital signs: Vital Signs 07/22/18 11:00 07/22/18 12:00 07/22/18 12:22 Temperature 97.6 F Pulse Rate 90 84 89 Respiratory Rate 26 H 18 23 Blood Pressure 154/78 H 155/99 H 155/99 H Pulse Oximetry 97 100 99 07/22/18 12:25 07/22/18 12:37 07/22/18 12:55 Temperature 97.6 F 97.8 F Pulse Rate 91 H 92 H Respiratory Rate 23 24 Blood Pressure 139/71 139/71 Pulse Oximetry 94 L 94 L 07/22/18 13:00 07/22/18 14:00 07/22/18 14:08 Temperature 98.0 F Pulse Rate 90 91 H 92 H Respiratory Rate 28 H 24 20 Blood Pressure 143/78 H 154/66 H 154/66 H Pulse Oximetry 94 L 98 98 07/22/18 15:06 07/22/18 15:24 07/22/18 15:39 Temperature Pulse Rate 94 H 89 108 H Respiratory Rate 32 H 34 H 34 H Blood Pressure 144/67 H 165/70 H Pulse Oximetry 94 L 92 L 91 L 07/22/18 15:54 07/22/18 16:00 07/22/18 16:09 Temperature 98.2 F Pulse Rate 88 87 89 Respiratory Rate 34 H 34 H 36 H Blood Pressure 162/70 H 146/67 H Pulse Oximetry 93 L 93 L 94 L 07/22/18 16:24 07/22/18 16:39 07/22/18 16:54 Temperature Pulse Rate 85 85 84 Respiratory Rate 38 H 20 28 H Blood Pressure 138/61 143/75 H 146/69 H Pulse Oximetry 94 L 95 95 07/22/18 17:00 07/22/18 17:09 07/22/18 17:24 Temperature Pulse Rate 85 86 84 Respiratory Rate 25 H 23 21 Blood Pressure 143/68 H 136/103 H Pulse Oximetry 96 95 95 07/22/18 17:39 07/22/18 17:54 07/22/18 18:00 Temperature Pulse Rate 86 87 87 Respiratory Rate 30 H 28 H 27 H Blood Pressure 146/100 H 145/67 H Pulse Oximetry 94 L 87 L 87 L 07/22/18 18:09 07/22/18 18:24 07/22/18 18:39 Temperature Pulse Rate 102 H 92 H 90 Respiratory Rate 30 H 31 H 31 H Blood Pressure 152/75 H 146/67 H 141/66 H Pulse Oximetry 88 L 92 L 90 L 07/22/18 18:54 07/22/18 19:00 07/22/18 19:09 Temperature Pulse Rate 90 90 92 H Respiratory Rate 28 H 31 H 27 H Blood Pressure 108/53 L 117/58 L Pulse Oximetry 89 L 84 L 92 L 07/22/18 19:24 07/22/18 19:39 07/22/18 19:54 Temperature Pulse Rate 87 97 H 97 H Respiratory Rate 24 33 H 30 H Blood Pressure 128/92 H 136/71 130/61 Pulse Oximetry 96 97 96 07/22/18 19:57 07/22/18 20:00 07/22/18 20:09 Temperature 98.6 F Pulse Rate 89 88 Respiratory Rate 23 24 Blood Pressure 130/61 128/63 Pulse Oximetry 96 95 99 07/22/18 20:10 07/22/18 21:00 07/22/18 22:00 Temperature Pulse Rate 87 83 90 Respiratory Rate 30 H 23 30 H Blood Pressure 129/64 122/57 L 136/66 Pulse Oximetry 99 92 L 93 L 07/22/18 23:00 07/23/18 00:00 07/23/18 01:00 Temperature 97.8 F Pulse Rate 85 83 78 Respiratory Rate 42 H 36 H 31 H Blood Pressure 144/73 H 143/67 H 120/59 L Pulse Oximetry 94 L 96 96 07/23/18 02:00 07/23/18 03:00 07/23/18 04:00 Temperature 99.2 F Pulse Rate 77 80 80 Respiratory Rate 40 H 21 23 Blood Pressure 127/68 133/64 138/65 Pulse Oximetry 94 L 95 97 07/23/18 05:00 07/23/18 06:00 07/23/18 07:00 Temperature Pulse Rate 80 78 80 Respiratory Rate 28 H 54 H 21 Blood Pressure 143/67 H 140/67 136/63 Pulse Oximetry 97 96 98 07/23/18 08:00 07/23/18 09:00 07/23/18 10:00 Temperature 98.3 F Pulse Rate 79 82 80 Respiratory Rate 22 20 24 Blood Pressure 151/68 H 159/69 H 135/69 Pulse Oximetry 97 98 96 Intake & Output 07/22/18 07/23/18 07/23/18 18:59 06:59 18:59 Intake Total 725 / 725 1205 / 1205 1000 / 1000 Output Total 575 / 575 435 / 435 Balance 150 / 150 770 / 770 1000 / 1000 Weight 61 kg Intake: IV 350 / 350 1105 / 1105 1000 / 1000 KCl Inj 10 MEQ In D5W Inj 1,000 1005 / 1005 1000 / 1000 ML @ 125 mls/hr IV.CONT .Q8H3M [facility] Rx#:[id number] KCl 20 mEq Premix Inj 20 meq In 300 / 300 100 / 100 100 ml @ 50 mls/hr IV.SIG Q2H [facility] Rx#:[id number] Ancef 1 GM Premix Inj 1 gm In 50 / 50 50 ml @ 0 mls/hr IV.SIG .STK- [facility] Rx#:[id number] Oral 0 / 0 Tube Irrigant 100 / 100 Intake (Blood Product) Amt 375 / 375 Plt Pheresis A Leukored Pas 189 / 189 Unit [id number] Plt Pheresis B Leukored Pas 186 / 186 Unit [id number] Output: Urine Amount (Catheter) 575 / 575 435 / 435 Condom 575 / 575 435 / 435 Chest Tube Drainage 0 / 0 Right 0 / 0 Other: # Voids 5 # Incontinent Voids 5 3 Date of Last Bowel Movement 07/19/18 07/19/18 # Bowel Movements 0 0 Narrative: GENERAL: Lethargic NAD SKIN: Warm and dry. NECK: Supple, trachea midline. No JVD. CARDIOVASCULAR: Regular rate and rhythm without murmurs, gallops, or rubs. RESPIRATORY: Breath sounds coarse sounding. GASTROINTESTINAL: Abdomen soft, non-tender, nondistended. GENITOURINARY: Condom catheter, dark yellow urine. MUSCULOSKELETAL: No cyanosis, no edema. . - Urinary Catheter Management Indwelling Urethral Catheter Cath placed during this visit: yes, but has since been removed by the nurse Reason for continuing: Decision to DC catheter Insertion date: 07/12/18 Insertion time: 07:45 Removal date: 07/19/18 Removal time: 10:45 Condom Cath placed during this visit: yes Reason for continuing: Not indwelling catheter Insertion date: 07/19/18 Insertion time: 10:50 <Edel Lantigua - Last Filed: 07/23/18 14:33> Vital signs: Vital Signs 07/22/18 23:00 07/23/18 00:00 07/23/18 01:00 Temperature 97.8 F Pulse Rate 85 83 78 Respiratory Rate 42 H 36 H 31 H Blood Pressure 144/73 H 143/67 H 120/59 L Pulse Oximetry 94 L 96 96 07/23/18 02:00 07/23/18 03:00 07/23/18 04:00 Temperature 99.2 F Pulse Rate 77 80 80 Respiratory Rate 40 H 21 23 Blood Pressure 127/68 133/64 138/65 Pulse Oximetry 94 L 95 97 07/23/18 05:00 07/23/18 06:00 07/23/18 07:00 Temperature Pulse Rate 80 78 80 Respiratory Rate 28 H 54 H 21 Blood Pressure 143/67 H 140/67 136/63 Pulse Oximetry 97 96 98 07/23/18 08:00 07/23/18 09:00 07/23/18 09:05 Temperature 98.3 F Pulse Rate 79 82 82 Respiratory Rate 22 20 Blood Pressure 151/68 H 159/69 H Pulse Oximetry 97 98 07/23/18 09:30 07/23/18 10:00 07/23/18 10:54 Temperature Pulse Rate 80 Respiratory Rate 19 24 Blood Pressure 135/69 Pulse Oximetry 96 93 L 07/23/18 11:00 07/23/18 12:09 07/23/18 13:00 Temperature 98.5 F Pulse Rate 83 92 H 91 H Respiratory Rate 22 23 19 Blood Pressure 149/70 H Pulse Oximetry 95 94 L 92 L 07/23/18 13:10 07/23/18 14:00 07/23/18 14:10 Temperature Pulse Rate 86 93 H 87 Respiratory Rate 18 24 21 Blood Pressure 174/82 H 137/75 Pulse Oximetry 95 96 97 07/23/18 15:00 07/23/18 15:10 07/23/18 16:00 Temperature 98.9 F Pulse Rate 90 84 86 Respiratory Rate 30 H 19 21 Blood Pressure 141/64 H Pulse Oximetry 97 97 91 L 07/23/18 16:10 07/23/18 17:00 07/23/18 17:10 Temperature Pulse Rate 86 95 H 85 Respiratory Rate 21 30 H 20 Blood Pressure 138/63 140/98 H Pulse Oximetry 91 L 96 97 07/23/18 18:00 07/23/18 18:10 07/23/18 19:00 Temperature Pulse Rate 101 H 94 H 95 H Respiratory Rate 32 H 23 22 Blood Pressure 146/67 H Pulse Oximetry 97 97 97 07/23/18 19:10 07/23/18 20:00 07/23/18 20:10 Temperature 98.1 F Pulse Rate 95 H 97 H 94 H Respiratory Rate 23 27 H 22 Blood Pressure 115/56 L 140/64 Pulse Oximetry 97 97 98 07/23/18 20:29 07/23/18 21:00 07/23/18 21:10 Temperature Pulse Rate 98 H 92 H Respiratory Rate 26 H 22 Blood Pressure 123/91 H Pulse Oximetry 97 98 97 07/23/18 22:00 07/23/18 22:10 Temperature Pulse Rate 94 H 98 H Respiratory Rate 25 H 26 H Blood Pressure 128/63 Pulse Oximetry 97 98 Intake & Output 07/23/18 07/23/18 07/24/18 06:59 18:59 06:59 Intake Total 1205 / 1205 2400 / 2400 Output Total 435 / 435 550 / 550 Balance 770 / 770 1850 / 1850 Weight 61 kg Intake: IV 1105 / 1105 2100 / 2100 KCl Inj 10 MEQ In D5W Inj 1,000 1005 / 1005 2000 / 2000 ML @ 125 mls/hr IV.CONT .Q8H3M [facility] Rx#:[id number] Cubicin Inj 400 MG In NS Inj 100 / 100 100 ML @ 200 mls/hr IV.SIG Q48H [facility] Rx#:[id number] KCl 20 mEq Premix Inj 20 meq In 100 / 100 100 ml @ 50 mls/hr IV.SIG Q2H [facility] Rx#:[id number] Oral 0 / 0 Tube Feeding 100 / 100 Tube Irrigant 100 / 100 Water Bolus Amount 200 / 200 Output: Urine Amount (Catheter) 435 / 435 550 / 550 Condom 435 / 435 550 / 550 Chest Tube Drainage 0 / 0 Right 0 / 0 Other: # Incontinent Voids 3 Date of Last Bowel Movement 07/19/18 07/23/18 07/23/18 # Bowel Movements 0 2 - Urinary Catheter Management Indwelling Urethral Catheter Cath placed during this visit: no Condom Cath placed during this visit: no <Dina Rivas - Last Filed: 07/23/18 22:37> Assessment and Plan - Assessment (1) Acute kidney injury Code(s): N17.9 - Acute kidney failure, unspecified Status: Acute Plan: No previous history of chronic kidney disease. Has electrolyte disorder with high sodium and low K. Creatinine started to increase on the 6th NEERU possible ATN from sepsis or contrast Nephropathy. Creatinine started to increase about 48 hours after receiving contrast. Also possibility of AIN with vancomycin use however random level not elevated. Urine EOS negative. CT of abdomen shows kidney with in normal limits. Avoid Nephrotoxins. Follow the urine out put and BMP. Ordered Tube feeding per Dietary recommendations. Creatinine has improved at 1.12 With improvement in renal function, nephrology will sign off and see PRN only. (2) Hypernatremia Code(s): E87.0 - Hyperosmolality and hypernatremia Status: Acute Plan: Sodium level improving at 151, on D5W. Recommend to continue for now, until sodium levels normal. (3) Respiratory failure Code(s): J96.90 - Respiratory failure, unspecified, unspecified whether with hypoxia or hypercapnia Status: Acute Plan: Extubated 07/18, on NC with good sats (4) Bacteremia Code(s): R78.81 - Bacteremia Status: Acute Plan: On antibiotics , afebrile. <Edel Lantigua - Last Filed: 07/23/18 14:33> - Assessment (1) Acute kidney injury Code(s): N17.9 - Acute kidney failure, unspecified Status: Acute (2) Hypernatremia Code(s): E87.0 - Hyperosmolality and hypernatremia Status: Acute (3) Respiratory failure Code(s): J96.90 - Respiratory failure, unspecified, unspecified whether with hypoxia or hypercapnia Status: Acute (4) Bacteremia Code(s): R78.81 - Bacteremia Status: Acute <Dina Rivas - Last Filed: 07/23/18 22:37>
[2018-07-23] MEDS: DAPTOmycin Inj 400 MG in Sodium Chlor 0.9% Inj 100 ML IV.SIG SCH (12:49)
--- NOTE | 2018-07-23 14:42 | P.PNID ---
Subjective Remarks: Patient is a 63-year-old male, presented to the hospital complaining of pain and swelling on his left elbow. He stated that he fell about a week ago but did not seek any treatment for his left elbow. He presented to the ED, and he was found to have a fracture of the olecranon on the left side. Patient also since admission has complained of some abdominal pain. He has known history of significant alcohol abuse. Imaging studies of the abdomen showed hepatic steatosis, pericholecystic fluid with no ductal dilatation. Ultrasound showed pericholecystic fluid with negative Lundy sign. He had a HIDA scan which showed no activity which could most likely be due to his liver disease. Patient also had a CTA as part of evaluation for his abdominal pain. That is okay. There were 2 blood cultures done in the ED, and they are now reported as growing MRSA. Patient has had some low-grade temps. Overnight he had persistent hypotension, and he was transferred to the ICU. Patient currently is on pressors. He is afebrile. He is still complaining of abdominal pain. He states he has chronic back pain which has not changed. He denies any shortness of breath. On this admission he was also found to have 80% right carotid artery stenosis, and vascular is following the patient. Echocardiograms not showing any obvious vegetation. His WBC is mildly elevated. He has an elevated lactic acid. His platelet count is low, fibrinogen is normal. Infectious disease consultation has been requested to assist with evaluation and treatment of his bacteremia. Notes reviewed S/P Gtube yesterday - started on trickle feed today Has moist cough Treated for lice last night, hair shaved Opens eyes Afebrile Creatinine improving, good UO WBC normal Sputum ok CXR improving No new (+) BC Only (+) BC is from 07/08 Antibiotics: Cubicin Lines: Line sites with no e.o infection Past Medical History: Tobacco and ETOH abuse Drug screen (+) cocaine (denies IVDU), admits to smoking Allergies/Adverse Reactions: Allergies No Known Allergies Allergy (Verified 07/08/18 12:30) Objective Vital Signs 07/22/18 15:06 07/22/18 15:24 07/22/18 15:39 Temperature Pulse Rate 94 H 89 108 H Respiratory Rate 32 H 34 H 34 H Blood Pressure 144/67 H 165/70 H Pulse Oximetry 94 L 92 L 91 L 07/22/18 15:54 07/22/18 16:00 07/22/18 16:09 Temperature 98.2 F Pulse Rate 88 87 89 Respiratory Rate 34 H 34 H 36 H Blood Pressure 162/70 H 146/67 H Pulse Oximetry 93 L 93 L 94 L 07/22/18 16:24 07/22/18 16:39 07/22/18 16:54 Temperature Pulse Rate 85 85 84 Respiratory Rate 38 H 20 28 H Blood Pressure 138/61 143/75 H 146/69 H Pulse Oximetry 94 L 95 95 07/22/18 17:00 07/22/18 17:09 07/22/18 17:24 Temperature Pulse Rate 85 86 84 Respiratory Rate 25 H 23 21 Blood Pressure 143/68 H 136/103 H Pulse Oximetry 96 95 95 07/22/18 17:39 07/22/18 17:54 07/22/18 18:00 Temperature Pulse Rate 86 87 87 Respiratory Rate 30 H 28 H 27 H Blood Pressure 146/100 H 145/67 H Pulse Oximetry 94 L 87 L 87 L 07/22/18 18:09 07/22/18 18:24 07/22/18 18:39 Temperature Pulse Rate 102 H 92 H 90 Respiratory Rate 30 H 31 H 31 H Blood Pressure 152/75 H 146/67 H 141/66 H Pulse Oximetry 88 L 92 L 90 L 07/22/18 18:54 07/22/18 19:00 07/22/18 19:09 Temperature Pulse Rate 90 90 92 H Respiratory Rate 28 H 31 H 27 H Blood Pressure 108/53 L 117/58 L Pulse Oximetry 89 L 84 L 92 L 07/22/18 19:24 07/22/18 19:39 07/22/18 19:54 Temperature Pulse Rate 87 97 H 97 H Respiratory Rate 24 33 H 30 H Blood Pressure 128/92 H 136/71 130/61 Pulse Oximetry 96 97 96 07/22/18 19:57 07/22/18 20:00 07/22/18 20:09 Temperature 98.6 F Pulse Rate 89 88 Respiratory Rate 23 24 Blood Pressure 130/61 128/63 Pulse Oximetry 96 95 99 07/22/18 20:10 07/22/18 21:00 07/22/18 22:00 Temperature Pulse Rate 87 83 90 Respiratory Rate 30 H 23 30 H Blood Pressure 129/64 122/57 L 136/66 Pulse Oximetry 99 92 L 93 L 07/22/18 23:00 07/23/18 00:00 07/23/18 01:00 Temperature 97.8 F Pulse Rate 85 83 78 Respiratory Rate 42 H 36 H 31 H Blood Pressure 144/73 H 143/67 H 120/59 L Pulse Oximetry 94 L 96 96 07/23/18 02:00 07/23/18 03:00 07/23/18 04:00 Temperature 99.2 F Pulse Rate 77 80 80 Respiratory Rate 40 H 21 23 Blood Pressure 127/68 133/64 138/65 Pulse Oximetry 94 L 95 97 07/23/18 05:00 07/23/18 06:00 07/23/18 07:00 Temperature Pulse Rate 80 78 80 Respiratory Rate 28 H 54 H 21 Blood Pressure 143/67 H 140/67 136/63 Pulse Oximetry 97 96 98 07/23/18 08:00 07/23/18 09:00 07/23/18 09:05 Temperature 98.3 F Pulse Rate 79 82 82 Respiratory Rate 22 20 Blood Pressure 151/68 H 159/69 H Pulse Oximetry 97 98 07/23/18 09:30 07/23/18 10:00 07/23/18 10:54 Temperature Pulse Rate 80 Respiratory Rate 19 24 Blood Pressure 135/69 Pulse Oximetry 96 93 L Intake & Output 07/22/18 07/23/18 07/23/18 18:59 06:59 18:59 Intake Total 725 / 725 1205 / 1205 1000 / 1000 Output Total 575 / 575 435 / 435 Balance 150 / 150 770 / 770 1000 / 1000 Weight 61 kg Intake: IV 350 / 350 1105 / 1105 1000 / 1000 KCl Inj 10 MEQ In D5W Inj 1,000 1005 / 1005 1000 / 1000 ML @ 125 mls/hr IV.CONT .Q8H3M [facility] Rx#:[id number] KCl 20 mEq Premix Inj 20 meq In 300 / 300 100 / 100 100 ml @ 50 mls/hr IV.SIG Q2H [facility] Rx#:[id number] Ancef 1 GM Premix Inj 1 gm In 50 / 50 50 ml @ 0 mls/hr IV.SIG .STK- [facility] Rx#:[id number] Oral 0 / 0 Tube Irrigant 100 / 100 Intake (Blood Product) Amt 375 / 375 Plt Pheresis A Leukored Pas 189 / 189 Unit [id number] Plt Pheresis B Leukored Pas 186 / 186 Unit [id number] Output: Urine Amount (Catheter) 575 / 575 435 / 435 Condom 575 / 575 435 / 435 Chest Tube Drainage 0 / 0 Right 0 / 0 Other: # Voids 5 # Incontinent Voids 5 3 Date of Last Bowel Movement 07/19/18 07/19/18 07/19/18 # Bowel Movements 0 0 07/13/18 08:55 Fluid - Pleural fluid Fungal Smear - Final No fungal elements seen 07/13/18 08:55 Fluid - Pleural fluid Fungal Culture - Preliminary No growth in 1 week 07/13/18 08:55 Fluid - Pleural fluid Acid Fast Bacilli Smear - Final No acid fast bacilli seen 07/13/18 08:55 Fluid - Pleural fluid Mycobacterial Culture - Preliminary No growth in 1 week Lab - Hematology Results 07/22/18 07/23/18 06:15 02:40 WBC 10.3 10.2 RBC 3.34 L 3.20 L Hgb 11.6 L 10.9 L Hct 33.5 L 32.5 L MCV 100.1 H 101.6 H MCH 34.6 H 34.1 H MCHC 34.6 33.6 RDW 16.0 15.9 Plt Count 40 L 69 L D MPV 10.7 10.5 Prelim Diff (Auto) Slide review pending Neut % (Auto) 72.0 H Lymph % (Auto) 16.2 Martin % (Auto) 8.0 Eos % (Auto) 2.3 Baso % (Auto) 1.5 Neut # (Auto) 7.3 Lymph # (Auto) 1.6 Martin # (Auto) 0.8 Eos # (Auto) 0.2 Baso # (Auto) 0.2 WBC Differential Manual diff final Seg Neuts % (Manual) 69 Band Neuts % (Manual) 13 H Lymphocytes % (Manual) 7 L Monocytes % (Manual) 5 Eosinophils % (Manual) 5 H Metamyelocytes % (Man) 1 Abs Neuts (Manual) 8.5 H Differential Comment . Platelet Estimate Low L Platelet Morphology Normal Target Cells 1+ H Lab - Chemistry Results 07/22/18 07/23/18 07/23/18 19:20 02:40 02:40 Sodium 152 H 151 H Potassium 3.6 3.6 Chloride 117 H 115 H Carbon Dioxide 29.1 29.4 Anion Gap 6 7 BUN 28 H 27 H Creatinine 1.13 1.12 Estimated GFR 66 L 67 L Random Glucose 116 H 121 H Calcium 8.9 8.3 L Magnesium 1.6 Total Bilirubin 10.4 H AST 169 H ALT 170 H Alkaline Phosphatase 102 Ammonia 13 Total Creatine Kinase 60 Total Protein 6.4 Albumin 2.4 L Imaging: ITS Impressions Elbow X-Ray 07/08/18 18:01 CONCLUSION: 1. Small, mildly displaced olecranon avulsion fracture fragments of the triceps insertion with associated soft tissue swelling. 2. Joint effusion. No perceptible intra-articular fracture. No subluxation. Abdomen/Pelvis CT 07/08/18 18:02 CONCLUSION: 1. Severe fatty infiltration of the liver. 2. Apparent pericholecystic fluid. Also fairly robust enhancement of the gallbladder mucosa. Please correlate clinically for any evidence of cholecystitis. No stones or ductal dilatation demonstrated. Gallbladder Ultrasound 07/08/18 18:53 CONCLUSION: 1. Small, nonspecific pericholecystic fluid without stones, wall thickening or sonographic Lundy's sign. The fluid may be on the basis of hepatocellular disease. The ultrasound does not support acute cholecystitis. 2. Fatty infiltrated and mildly enlarged liver. Carotid Doppler Study 07/09/18 00:00 CONCLUSION: 1. Right Internal Carotid Artery: Findings indicate >70% stenosis, but less than near occlusion. 2. Left Internal Carotid Artery: Findings indicate <50% stenosis. Hepatobiliary Scan Nuclear Medicine 07/09/18 14:22 CONCLUSION: 1. No activity in intrahepatic ducts, common duct or small bowel. Considerations include include acute obstruction of the common duct and diffuse hepatocellular disease. 2. CT scan shows no dilatation of the common duct or intrahepatic ducts. Diffuse hepatocellular disease is suspected. Neck CTA 07/10/18 00:00 CONCLUSION: 1. 80% stenosis of the proximal right ICA. Left carotid and bilateral vertebral arteries are patent. 2. Emphysematous changes. Abdomen/Pelvis CTA 07/10/18 00:08 CONCLUSION: 1. 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 The SMA and MIC are patent. 2. Hepatic steatosis. 3. Emphysematous changes. Abdomen/Bladder Ultrasound 07/11/18 00:00 CONCLUSION: 1. Normal ultrasound appearance of the kidneys. 2. Other findings include hepatic steatosis and left pleural effusion. Elbow CT 07/11/18 00:00 CONCLUSION: 1. Small fracture fragment off the olecranon. 2. There is subcutaneous edema identified posterior to the elbow with soft tissue swelling. Head CT 07/13/18 00:00 CONCLUSION: 1. No acute intracranial abnormality. 2. Atrophy. . Chest X-Ray 07/20/18 04:00 CONCLUSION: Underlying interstitial disease. Left base atelectasis or consolidation which appears to be improving. Gastrostomy Tube Placement 07/22/18 00:00 CONCLUSION: 1. Uncomplicated gastrostomy tube placement as above. Physical Exam: GENERAL: awake, weak, NAD SKIN: Cool and dry. No generalized rash, no ecchymoses. HEAD: Hair shaved, has red maculopapular rash in scalp EYES: [place] conjunctiva. No petechia or hemorrhage. Pupils equal, round and reactive to light. Has mild injection ENT: Intubated CARDIOVASCULAR: Regular rate and rhythm. RESPIRATORY: Decreased BS at bases ABDOMEN: Soft, Gtube site ok EXTREMITIES: No clubbing, cyanosis. Mild pedal edema. Has posterior splint in his whole LUE NEUROLOGICAL: Pupils unequal left > right. Awake and responding, moving all extremities PSYCHIATRIC: Cooperative LINE: No evidence of infection Assessment and Plan - Plan Impression MRSA sepsis ? olecranon trauma as entry point for MRSA MRSA bacteremia, ? endocarditis - echo ok Shock, resolved Known ETOH abuse and tobacco abuse Denies IVDU, admits to smoking cocaine ETOH liver disease Elevated LFT Thrombocytopenia Acute renal failure: sepsis, contrast, meds. - improving - has good UO Respiratory failure, extubated Pleural effusion, fluid transudative Recommendation continue Cubicin for now for MRSA bacteremia - since all fup neg and echo ok, plan 14 days IV Abx from (+) BC Follow temps Monitor progress D/W RN
--- NOTE | 2018-07-23 15:34 | XR ---
EXAM DATE: 07/23/2018 3:24 PM EST AGE/SEX: 63 years / Male INDICATIONS: Short of breath, congestion CLINICAL DATA: This is the patient's initial encounter. Patient reports that signs and symptoms have been present for 3 days and indicates a pain score of Nonresponsive. MEDICAL/SURGICAL HISTORY: Non-responsive. Non-responsive. [place] [facility] [place] [facility] [place], [place]. [facility] [place] 1[place]ING[place] AP[place] 07/15/2018. [facility], CHEST 1V SINGLE AP, 07/20/2018. . FINDINGS: A single AP erect portable view of the chest was obtained and demonstrates hazy perihilar and bibasil ar opacities which are increased from the prior study. There is blunting of the left costophrenic ang le. The heart size remains at the upper limits of normal. There are multiple overlying electrocardiog earlene leads and oxygen tubing. CONCLUSION: Increased opacity in the perihilar regions and lung bases which may represent posterior layering flui d and/or infiltrate. Electronically signed by: James Panda MD Board Certified Radiologist 07/23/2018 3:32 PM EST
--- NOTE | 2018-07-23 15:35 | P.PNIM ---
Subjective Interval history: The patient is in bed he appears chronically ill, with some shortness of breath. Follow some commands. Feels very tired. He is coughing up blood. He was on nonrebreather mask yesterday and Ventimask in the morning. Currently on 4 L oxygen by nasal cannula. Denies chest pain. No palpitations. No pain in his belly. Feedings were started tolerated so far well. Physical Exam Vital signs: Last Vital Signs Temp 98.3 F 07/23/18 08:00 Pulse 80 07/23/18 10:00 Resp 24 07/23/18 10:00 BP 135/69 07/23/18 10:00 Pulse Ox 93 L 07/23/18 10:54 Intake & Output 07/21/18 07/22/18 07/23/18 07/24/18 06:59 06:59 06:59 06:59 Intake Total 3060 / 3060 3515 / 3515 1930 / 1930 1000 / 1000 Output Total 1400 / 1400 1400 / 1400 1010 / 1010 Balance 1660 / 1660 2115 / 2115 920 / 920 1000 / 1000 Weight 60.1 kg 61 kg 61 kg Narrative: GENERAL: 63 yo male appearing older, chronically ill, lethargic with some sob SKIN: Warm and dry. Lice were found NECK: Supple, trachea midline. No JVD. CARDIOVASCULAR: Regular rate and rhythm without murmurs, gallops, or rubs. RESPIRATORY: Breath sounds coarse sounding. Coughing up blood. GASTROINTESTINAL: Abdomen soft, non-tender, nondistended. GENITOURINARY: Condom catheter, dark yellow urine. MUSCULOSKELETAL: No cyanosis, no edema. . Urinary Catheter Management Indwelling Urethral Catheter: Cath placed during this visit: yes, but has since been removed by the nurse Insertion date: 07/12/18 Insertion time: 07:45 Removal date: 07/19/18 Removal time: 10:45 Condom: Cath placed during this visit: yes Urethral indwelling: No Insertion date: 07/19/18 Insertion time: 10:50 Results Labs CBC & Chem 7: 07/23/18 02:40 07/23/18 02:40 Imaging Imaging: Impressions Gastrostomy Tube Placement 07/22/18 00:00 CONCLUSION: 1. Uncomplicated gastrostomy tube placement as above. Assessment and Plan (1) Acute kidney injury: Code(s): N17.9 - Acute kidney failure, unspecified Status: Acute (2) Hypernatremia: Code(s): E87.0 - Hyperosmolality and hypernatremia Status: Acute (3) Respiratory failure: Code(s): J96.90 - Respiratory failure, unspecified, unspecified whether with hypoxia or hypercapnia Status: Acute (4) Bacteremia: Code(s): R78.81 - Bacteremia Status: Acute Plan Neuro/Psych: Acute metabolic encephalopathy, imprpving Anisocoria EtOH abuse Recent cocaine/opiate abuse -inhaled. Denies intravenous MVI/ folate. Patient states he inhaled cocaine 4-5 days prior to admission. Denies IV drug use. Discontinued acetaminophen and related products with elevated transaminases Stat CT of the head for unequal pupil, negative for acute findings Encephalopathy improved enough to allow extubation 07/18. Check ammonia level as needed due to encephalopathy. Resume lactulose following G-tube placement by IR CV: Severe sepsis Lactic acidosis Elevated troponin likely demand ischemia Right carotid artery stenosis Elevated CPK Cardiology Dr. chaudhry. No intervention planned 2D echocardiogram revealed Normal left ventricular size. Wall thickness is normal. The left ventricular systolic function is normal with an estimated ejection fraction in the range of 55-60%. Not on aspirin or heparin at this time due to thrombocytopenia Followed by vascular surgery for right carotid artery stenosis 80%. Resp: Acute hypoxemic respiratory failure Right lower lobe pneumonia with effusion Emphysematous type changes on CT neck Hyperammonemia Hypoalbuminemia Tobacco abuse Emergently intubated and placed on mechanical ventilation. [facility]/AC 07/13/2018 Incentive spirometry. Extubated 07/18 Chest tube removed 07/19, chest x-ray after with the right lung well expanded. Consult pulmunology IS/ Acapella, continue duonebs GI: Elevated transaminases Elevated total bilirubin Poss acalc jody Hypoalbuminemia Noted CT abdomen/pelvis revealed possible early cholecystitis. Pericholecystic fluid. Ultrasound revealed negative Lundy sign. Nuclear medicine scan revealed no activity in the intrahepatic ductal compound bile duct or small bowel. 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 Patent MIC, celiac. Evaluated by gastroenterology. Needs G tube. Hepatitis panel negative. Pending ceruloplasmin, BOBBY, AMA, ASMA, SSA AMB, anti-Ronquillo, RP, scleroderma, double-stranded DNA, hemochromatosis Currently on lactulose 30 cc 3 times daily for elevated ammonia. Resume tube feeds once G-tube placed by IR Check ammonia level. Endo: Sliding scale insulin with Accu-Cheks to maintain euglycemia/every 6 hours low regimen TSH 1. Cortisol 25 Glucose control acceptable Renal: Acute kidney failure Hyponatremia Hypokalemia Avoid nephrotoxic medication. Discontinued vancomycin 07/11 Convert fluid to D5 water with KCl 10 mEq/L Monitor and replete electrolytes Heme: Macrocytic anemia Thrombocytopenia Coagulopathic state Follow-up on PT/INR Platelet transfusion ordered prior to G-tube placement by IR ID: MRSA bacteremia Septic shock Right lower lobe pneumonia/aspiration 2D transthoracic echocardiogram revealed no signs of endocarditis. Infectious disease following Currently on daptomycin and Zosyn. Zyvox added for gram-positive coverage for presumed pneumonia Pleural fluid studies have no evidence of infection MSK: Left posterior olecranon fracture Followed by Dr. Blanco, splint immobilized. Follow-up in 2 weeks with x-rays F/u CT left elbow FEN: Replace electrolytes as clinically indicated Access -Utilize peripheral IV. Prophylaxis -GI -pantoprazole -DVT-SCD/hold off chemical DVT prophylaxis due to severe thrombocytopenia, prolonged INR DC plan: Pending improvement and clearance by consultants. Might be a candidate for hospice Patient remains ill and quite lethargic. Care complicated by hepatic dysfunction, acute renal failure and sepsis. He has tolerated extubation and protects his airway at this time however still requiring high flow O2 and also with hemoprisis. Will consult pulm for eval Code status: DNR status. Palliative care following. Might be a candidate for hospice Discussed with the patient, nurse, respiratory therapist Progress Note: Quality VTE Deep Vein Thrombosis/Pulmonary Embolism Present on Admission: No _ (1) Respiratory failure Qualifiers: Chronicity: Respiratory failure complication:
--- NOTE | 2018-07-23 18:52 | MB ---
cc: Harsha Ramos MD DATE: 07/23/2018 REQUESTING PHYSICIAN: Dr. Leal from neurology. REASON FOR CONSULTATION: Respiratory failure and hemoptysis. HISTORY OF PRESENT ILLNESS: Mr. Sharma is a 63-year-old male who was admitted to this hospital on 07/09/2018, patient earlier had a history of fall and had injury to his elbow. He did not seek attention, then he was seen by Dr. Blanco and was advised splint immobilization. The patient came to the hospital with worsening of shortness of breath and near syncope. He had a CT scan of the abdomen and the pelvis done and he had increased liver enzymes. During the hospital admission, the patient became more short of breath, underwent respiratory failure. The patient was intubated and successfully extubated. He feels very lethargic and was noted to have bloody secretions orally, which are being suctioned. The patient is not able to cough up on his own effectively. He also has a PEG tube placed yesterday, started tube feeding, which he seems to be tolerating it well. He also has renal insufficiency, which is improving. PAST MEDICAL HISTORY: The patient is homeless, history of cocaine use, history of alcohol abuse. MEDICATIONS: He is currently takin. Albuterol and Atrovent nebulizer treatment. 2. Daptomycin 400 mg q.48 hours. 3. Haldol 1 mg p.r.n. 2. Hydralazine 20 mg p.r.n. 3. Lactulose 30 mL 3 times a day. 4. Lorazepam q.4 hours p.r.n. 5. Metoprolol p.r.n. 6. Protonix 40 mg a day. ALLERGIES: NO KNOWN DRUG ALLERGIES. SOCIAL HISTORY: He is homeless, has a history of alcohol use, cocaine use and nicotine use. FAMILY HISTORY: He has 1 sister in this area. REVIEW OF SYSTEMS: The patient is lethargic, tries to talk, difficult to understand. Moves extremities. PHYSICAL EXAMINATION: GENERAL: Reveals an elderly male, lethargic, mildly short of breath. VITAL SIGNS: Blood pressure 141/64, heart rate 86, respirations 21, temperature 98.9. HEENT: Pupils are equal and reactive to light. Oral mucosa are normal. He has clotted blood on the roof of the mouth. NECK: Supple. JVP not raised. CHEST: He has coarse crackles. HEART: S1, S2 are normal. ABDOMEN: Soft, mildly distended, nontender. Bowel sounds are present. EXTREMITIES: No edema. CENTRAL NERVOUS SYSTEM: The patient opens eyes, tries to talk, moves extremities. LABORATORY DATA: His lab evaluation reveals a WBC count 10.2, hemoglobin 10.9, hematocrit 32.5, MCV 101, platelet count 69. Sodium 151, potassium 3.6, chloride 115, CO2 29, BUN 27, creatinine 1.12. His blood culture positive for MRSA. IMPRESSION: 1. Methicillin-resistant Staphylococcus aureus. 2. Urinary tract infection. 3. Sepsis. 4. Hemoptysis. 5. Respiratory distress status post extubation. 6. Increased liver enzymes. 7. Thrombocytopenia. 8. The patient is homeless. 9. Nicotine use. 10. Alcohol use. PLAN: The patient is now DNR. Palliative care is evaluating the patient. Continue antibiotic. Tube feeding. Oral suction if needed. We will do NT suction to clear his airways. He does not seem to have any active hemoptysis at this time. We will monitor him. Further treatment pending the course in the hospital. Thank you Dr. Daphney Leal for this consult. Harsha Ramos MD ADA/ct , 05:50 PM , 06:02 PM
[2018-07-24] MEDS: Oral Hygiene Kit OROPHARYNG SCH ×4 (01:20→16:12)
[2018-07-24] MEDS: Potassium Chloride Inj 10 MEQ in Dextrose 5% in Water Inj 1,000 ML IV.CONT SCH ×6 (02:16→17:39)
[2018-07-24] MEDS: Morphine Inj 4 MG/ML Vial IV.PUSH PRN ×5 (06:00→23:44)
[2018-07-24 06:17] LABS: Baso # (Auto) 0.1 th/mm3 (0.0-0.2); Eos # (Auto) 0.2 th/mm3 (0.0-0.4); Eos % (Auto) 1.7 % (0.0-4.0); Hematocrit 28.1 % (39.0-51.0); Hemoglobin 9.7 gm/dL (13.0-17.0); Lymph # (Auto) 1.3 th/mm3 (1.0-4.8); Lymph % (Auto) 13.3 % (9.0-44.0); Mean Corpuscular HGB Conc 34.4 % (32.0-36.0); Mean Corpuscular Hemoglobin 34.7 pg (27.0-34.0); Mean Corpuscular Volume 100.7 fL (80.0-100.0); Mono # (Auto) 0.9 th/mm3 (0.0-0.9); Mono % (Auto) 9.1 % (0.0-8.0); Neut # (Auto) 7.5 th/mm3 (1.8-7.7); Neut % (Auto) 74.9 % (16.0-70.0); Platelet Count 51 th/mm3 (150-450); Red Cell Distribution Width 16.1 % (11.6-17.2)
[2018-07-24 06:34] LABS: Alanine Aminotransferase 152 U/L (12-78); Albumin 2.4 g/dL (3.4-5.0); Anion Gap 7 meq/L (5-15); Aspartate Aminotransferase 162 U/L (15-37); Blood Urea Nitrogen 21 mg/dL (7-18); Calcium 8.2 mg/dL (8.5-10.1); Carbon Dioxide 25.6 meq/L (21.0-32.0); Chloride 112 meq/L (98-107); Glomerular Filtration Rate 70 mL/min (>89); Glucose,Random 144 mg/dL (74-106); Magnesium 1.6 mg/dL (1.5-2.5); Potassium 3.6 meq/L (3.5-5.1); Sodium 145 meq/L (136-145)
[2018-07-24 06:36] LABS: Alkaline Phosphatase 119 U/L (45-117); Total Protein 6.2 g/dL (6.4-8.2)
[2018-07-24] MEDS: Pantoprazole Inj 40 MG Vial IV.PUSH SCH (08:18)
[2018-07-24] MEDS: Mupirocin 2% Nasal Oint Topical Syringe EACH NARE SCH ×2 (08:18→20:07)
[2018-07-24] MEDS: Chlorhexidine 0.12% Oral Kit 15 ML UDC OROPHARYNG SCH ×2 (08:19→20:07)
[2018-07-24 08:39] LABS: Eosinophils 2 % (0-4); Lymphocytes 13 % (9-44); Monocytes 4 % (0-8)
[2018-07-24 08:40] LABS: Target Cells 1+; Toxic Granulation 1+
--- NOTE | 2018-07-24 11:24 | P.PNIM ---
Subjective Interval history: Patient in bed complains of some abd pain. Wiill do KUB. No n/ v/. No diarrhea. Repositioned in bed feels better No fever or chills. Physical Exam Vital signs: Last Vital Signs Temp 98.6 F 07/24/18 09:10 Pulse 108 H 07/24/18 10:25 Resp 28 H 07/24/18 10:25 BP 148/70 H 07/24/18 10:25 Pulse Ox 98 07/24/18 10:25 Intake & Output 07/22/18 07/23/18 07/24/18 07/25/18 06:59 06:59 06:59 06:59 Intake Total 3515 / 3515 1930 / 1930 3922 / 3922 1005 / 1005 Output Total 1400 / 1400 1010 / 1010 850 / 850 Balance 2115 / 2115 920 / 920 3072 / 3072 1005 / 1005 Weight 61 kg 61 kg 59.8 kg Narrative: GENERAL: 63 yo male appearing older, chronically ill, lethargic with some sob SKIN: Warm and dry. Lice were found NECK: Supple, trachea midline. No JVD. CARDIOVASCULAR: Regular rate and rhythm without murmurs, gallops, or rubs. RESPIRATORY: Breath sounds coarse sounding. Coughing up blood. GASTROINTESTINAL: Abdomen soft, some pain at the PEG tube site. Abd nondistended. GENITOURINARY: Condom catheter, dark yellow urine. MUSCULOSKELETAL: No cyanosis, no edema. . Urinary Catheter Management Indwelling Urethral Catheter: Cath placed during this visit: yes, but has since been removed by the nurse Insertion date: 07/12/18 Insertion time: 07:45 Removal date: 07/19/18 Removal time: 10:45 Condom: Cath placed during this visit: yes Urethral indwelling: No Insertion date: 07/19/18 Insertion time: 10:50 Results Labs CBC & Chem 7: 07/24/18 06:01 07/24/18 06:01 Imaging Imaging: Impressions Chest X-Ray 07/23/18 00:00 CONCLUSION: Increased opacity in the perihilar regions and lung bases which may represent posterior layering fluid and/or infiltrate. Assessment and Plan (1) Chest pain: Code(s): R07.9 - Chest pain, unspecified Status: Acute (2) Elevated troponin level: Code(s): R74.8 - Abnormal levels of other serum enzymes Status: Acute (3) Liver failure: Code(s): K72.90 - Hepatic failure, unspecified without coma Status: Acute (4) Hyperbilirubinemia: Code(s): E80.6 - Other disorders of bilirubin metabolism Status: Acute Plan Neuro/Psych: Acute metabolic encephalopathy, imprpving Anisocoria EtOH abuse Recent cocaine/opiate abuse -inhaled. Denies intravenous MVI/ folate. Patient states he inhaled cocaine 4-5 days prior to admission. Denies IV drug use. Discontinued acetaminophen and related products with elevated transaminases Stat CT of the head for unequal pupil, negative for acute findings Encephalopathy improved enough to allow extubation 07/18. Check ammonia level as needed due to encephalopathy. Resume lactulose following G-tube placement by IR CV: Severe sepsis Lactic acidosis Elevated troponin likely demand ischemia Right carotid artery stenosis Elevated CPK Cardiology Dr. chaudhry. No intervention planned 2D echocardiogram revealed Normal left ventricular size. Wall thickness is normal. The left ventricular systolic function is normal with an estimated ejection fraction in the range of 55-60%. Not on aspirin or heparin at this time due to thrombocytopenia Followed by vascular surgery for right carotid artery stenosis 80%. Resp: Acute hypoxemic respiratory failure Right lower lobe pneumonia with effusion Emphysematous type changes on CT neck Hyperammonemia Hypoalbuminemia Tobacco abuse Emergently intubated and placed on mechanical ventilation. [facility]/AC 07/13/2018 Incentive spirometry. Extubated 07/18 Chest tube removed 07/19, chest x-ray after with the right lung well expanded. Consult pulmunology IS/ Acapella, continue duonebs GI: Elevated transaminases Elevated total bilirubin Poss acalc jody Hypoalbuminemia Noted CT abdomen/pelvis revealed possible early cholecystitis. Pericholecystic fluid. Ultrasound revealed negative Lundy sign. Nuclear medicine scan revealed no activity in the intrahepatic ductal compound bile duct or small bowel. 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 Patent MIC, celiac. Evaluated by gastroenterology. Needs G tube. Hepatitis panel negative. Pending ceruloplasmin, BOBBY, AMA, ASMA, SSA AMB, anti-Ronquillo, RP, scleroderma, double-stranded DNA, hemochromatosis Currently on lactulose 30 cc 3 times daily for elevated ammonia. Resume tube feeds once G-tube placed by IR Check ammonia level. Endo: Sliding scale insulin with Accu-Cheks to maintain euglycemia/every 6 hours low regimen TSH 1. Cortisol 25 Glucose control acceptable Renal: Acute kidney failure Hyponatremia Hypokalemia Avoid nephrotoxic medication. Discontinued vancomycin 07/11 Convert fluid to D5 water with KCl 10 mEq/L Monitor and replete electrolytes Heme: Macrocytic anemia Thrombocytopenia Coagulopathic state Follow-up on PT/INR Platelet transfusion ordered prior to G-tube placement by IR ID: MRSA bacteremia Septic shock Right lower lobe pneumonia/aspiration 2D transthoracic echocardiogram revealed no signs of endocarditis. Infectious disease following Currently on daptomycin and Zosyn. Zyvox added for gram-positive coverage for presumed pneumonia Pleural fluid studies have no evidence of infection MSK: Left posterior olecranon fracture Followed by Dr. Blanco, splint immobilized. Follow-up in 2 weeks with x-rays F/u CT left elbow FEN: Replace electrolytes as clinically indicated Access -Utilize peripheral IV. Prophylaxis -GI -pantoprazole -DVT-SCD/hold off chemical DVT prophylaxis due to severe thrombocytopenia, prolonged INR DC plan: Pending improvement and clearance by consultants. Might be a candidate for hospice Patient remains ill and quite lethargic. Care complicated by hepatic dysfunction, acute renal failure and sepsis. He has tolerated extubation and protects his airway at this time however still requiring high flow O2 and also with hemoprisis. Will consult pulm for eval Code status: DNR status. Palliative care following. Might be a candidate for hospice Discussed with the patient, nurse, respiratory therapist Progress Note: Quality VTE Deep Vein Thrombosis/Pulmonary Embolism Present on Admission: No _ (1) Liver failure Qualifiers: Hepatic coma status: Liver failure chronicity: (2) Chest pain Qualifiers: Chest pain type: Ischemic chest pain type:
[2018-07-24] MEDS: hydrALAZINE HCl Inj 20 MG/ML Vial IV.PUSH PRN (12:20)
--- NOTE | 2018-07-24 14:36 | P.PNCA ---
Subjective Interval history: No CP or SOB, very confused Medications and Allergies Active Medications: Active Medications Al Hydroxide/Mg Hydroxide (Milk Of Magnesia Liq) 30 ml PO Q12H PRN PRN Reason: Mild Constipation Albuterol (Albuterol Neb (Prn)) 2.5 mg NEB Q2HR NEB PRN PRN Reason: DYSPNEA Albuterol (Duoneb Neb (Prn)) 1 ampul NEB Q2HR NEB PRN PRN Reason: SHORTNESS OF BREATH Last Admin: 07/14/18 08:20 Dose: 1 ampul Chlorhexidine Gluconate (Peridex 0.12% Oral Kit) 15 ml OROPHARYNG BID@0800, 2000 [facility] Last Admin: 07/24/18 08:19 Dose: 15 ml Flumazenil (Romazecon Inj) 0.2 mg IV.PUSH Q1M PRN PRN Reason: OVERSEDATION Haloperidol Lactate (Haldol Inj) 1 mg IV.PUSH Q15M PRN PRN Reason: for severe agitation Last Admin: 07/21/18 21:43 Dose: 1 mg Hydralazine HCl (Apresoline Inj) 20 mg IV.PUSH Q4H PRN PRN Reason: Sys Bp Greater Than 165 [facility] Last Admin: 07/24/18 12:20 Dose: 20 mg Potassium Chloride 10 meq/ (Dextrose) 1,005 mls @ 125 mls/hr IV.CONT .Q8H3M [facility] Last Admin: 07/24/18 09:18 Dose: 125 mls/hr Labetalol HCl (Trandate Inj) 10 mg IV.PUSH Q1H PRN PRN Reason: Sbp>165, Dbp>90, Hr>65 Lactulose (Lactulose Liq) 30 ml PO DAILY PRN PRN Reason: SEVERE CONSITIPATION Lactulose (Lactulose Liq) 30 ml PO TID [facility] Last Admin: 07/24/18 12:20 Dose: 30 ml Lorazepam (Ativan) 1 mg PO Q4H PRN PRN Reason: for CIWA 8-10 Lorazepam (Ativan) 2 mg PO Q2H PRN PRN Reason: for CIWA 11-14 Lorazepam (Ativan Inj) 2 mg IV.PUSH Q2H PRN PRN Reason: for CIWA 11-14 Last Admin: 07/20/18 11:13 Dose: 2 mg Lorazepam (Ativan Inj) 2 mg IV.PUSH Q1H PRN PRN Reason: for CIWA 15-20 Last Admin: 07/11/18 21:37 Dose: 2 mg Lorazepam (Ativan Inj) 2 mg IV.PUSH Q15M PRN PRN Reason: for CIWA > 20 Last Admin: 07/22/18 15:30 Dose: 2 mg Lorazepam (Ativan Inj) 1 mg IV.PUSH Q4H PRN PRN Reason: for CIWA 8-10 Last Admin: 07/20/18 00:45 Dose: 1 mg Metoprolol Tartrate (Lopressor Inj) 2.5 mg IV.PUSH Q6H PRN PRN Reason: BLOOD PRESSURE MANAGEMENT Miscellaneous Medication () 1 each OROPHARYNG 0000,0400,1200,1600 [facility] Last Admin: 07/24/18 11:50 Dose: 1 each Morphine Sulfate (Morphine Inj) 2 mg IV.PUSH Q4H PRN PRN Reason: BREAKTHROUGH PAIN Last Admin: 07/24/18 13:25 Dose: 2 mg Mupirocin (Bactroban 2% Nasal Oint) 1 applicatio EACH NARE BID [facility] Last Admin: 07/24/18 08:18 Dose: 1 applicatio Naloxone HCl (Narcan Inj) 0.4 mg IV.PUSH UNSCH PRN PRN Reason: SEE LABEL COMMENTS Ondansetron HCl (Zofran Inj) 4 mg IV.PUSH Q6H PRN PRN Reason: NAUSEA OR VOMITING Pantoprazole Sodium (Protonix Inj) 40 mg IV.PUSH DAILY [facility] Last Admin: 07/24/18 08:18 Dose: 40 mg Sennosides (Senokot) 17.2 mg PO Q12H PRN PRN Reason: Moderate Constipation Sodium Chloride (Ns Flush) 2 ml IV.FLUSH PRN PRN PRN Reason: FLUSH AFTER USING IV ACCESS Last Admin: 07/20/18 20:10 Dose: 2 ml Sodium Chloride (Ns Flush) 2 ml IV.FLUSH BID [facility] Last Admin: 07/24/18 08:19 Dose: 2 ml Sterile Water (Free Water) 200 ml G-TUBE Q8H [facility] Last Admin: 07/24/18 09:15 Dose: 200 ml Allergies Allergy/AdvReac Type Severity Reaction Status Date / Time No Known Allergies Allergy Verified 07/08/18 12:30 Home Medications Medication Instructions Recorded Confirmed Type No Known Home Medications 07/08/18 07/08/18 History Physical Exam Vital signs: Vital Signs 07/23/18 15:00 07/23/18 15:10 07/23/18 16:00 Temperature 98.9 F Pulse Rate 90 84 86 Respiratory Rate 30 H 19 21 Blood Pressure 141/64 H Pulse Oximetry 97 97 91 L 07/23/18 16:10 07/23/18 17:00 07/23/18 17:10 Temperature Pulse Rate 86 95 H 85 Respiratory Rate 21 30 H 20 Blood Pressure 138/63 140/98 H Pulse Oximetry 91 L 96 97 07/23/18 18:00 07/23/18 18:10 07/23/18 19:00 Temperature Pulse Rate 101 H 94 H 95 H Respiratory Rate 32 H 23 22 Blood Pressure 146/67 H Pulse Oximetry 97 97 97 07/23/18 19:10 07/23/18 20:00 07/23/18 20:10 Temperature 98.1 F Pulse Rate 95 H 97 H 94 H Respiratory Rate 23 27 H 22 Blood Pressure 115/56 L 140/64 Pulse Oximetry 97 97 98 07/23/18 20:29 07/23/18 21:00 07/23/18 21:10 Temperature Pulse Rate 98 H 92 H Respiratory Rate 26 H 22 Blood Pressure 123/91 H Pulse Oximetry 97 98 97 07/23/18 22:00 07/23/18 22:10 07/23/18 23:00 Temperature Pulse Rate 94 H 98 H 99 H Respiratory Rate 25 H 26 H 25 H Blood Pressure 128/63 Pulse Oximetry 97 98 98 07/24/18 00:00 07/24/18 00:10 07/24/18 01:00 Temperature 97.4 F L Pulse Rate 109 H 107 H 97 H Respiratory Rate 31 H 33 H 24 Blood Pressure 146/74 H Pulse Oximetry 94 L 95 98 07/24/18 01:10 07/24/18 02:00 07/24/18 02:10 Temperature Pulse Rate 114 H 118 H 109 H Respiratory Rate 34 H 25 H 29 H Blood Pressure 173/73 H 130/58 L Pulse Oximetry 95 97 96 07/24/18 03:00 07/24/18 03:10 07/24/18 04:00 Temperature 97.5 F L Pulse Rate 105 H 108 H 109 H Respiratory Rate 29 H 30 H 31 H Blood Pressure 167/79 H Pulse Oximetry 97 98 97 07/24/18 04:10 07/24/18 05:00 07/24/18 05:10 Temperature Pulse Rate 106 H 101 H 98 H Respiratory Rate 27 H 28 H 23 Blood Pressure 143/71 H 101/55 L Pulse Oximetry 96 95 96 07/24/18 06:00 07/24/18 06:10 07/24/18 07:00 Temperature Pulse Rate 103 H 96 H 96 H Respiratory Rate 27 H 24 24 Blood Pressure 139/63 Pulse Oximetry 96 97 97 07/24/18 07:10 07/24/18 08:00 07/24/18 08:10 Temperature Pulse Rate 96 H 107 H 112 H Respiratory Rate 24 30 H 32 H Blood Pressure 116/62 174/81 H Pulse Oximetry 96 97 94 L 07/24/18 08:31 07/24/18 09:00 07/24/18 09:10 Temperature 98.6 F 98.6 F Pulse Rate 110 H 101 H 105 H Respiratory Rate 30 H 24 27 H Blood Pressure 126/58 L 167/72 H Pulse Oximetry 96 96 95 07/24/18 10:00 07/24/18 10:25 07/24/18 11:00 Temperature Pulse Rate 106 H 108 H 104 H Respiratory Rate 31 H 28 H 23 Blood Pressure 148/70 H Pulse Oximetry 95 98 98 07/24/18 11:10 07/24/18 11:56 07/24/18 12:00 Temperature Pulse Rate 106 H 104 H 104 H Respiratory Rate 28 H 25 H 26 H Blood Pressure 162/76 H 158/72 H Pulse Oximetry 98 98 98 07/24/18 12:10 07/24/18 12:15 07/24/18 12:25 Temperature Pulse Rate 128 H 107 H 107 H Respiratory Rate 38 H 28 H 26 H Blood Pressure 204/91 H 184/61 H 157/69 H Pulse Oximetry 95 98 98 07/24/18 13:00 07/24/18 13:10 07/24/18 13:26 Temperature Pulse Rate 118 H 124 H 122 H Respiratory Rate 40 H 46 H 40 H Blood Pressure 161/112 H 116/56 L Pulse Oximetry 96 95 95 07/24/18 14:00 07/24/18 14:10 Temperature Pulse Rate 118 H 120 H Respiratory Rate 36 H 37 H Blood Pressure 118/59 L Pulse Oximetry 95 95 Intake & Output 07/23/18 07/24/18 07/24/18 18:59 06:59 18:59 Intake Total 2400 / 2400 1522 / 1522 1005 / 1005 Output Total 550 / 550 300 / 300 Balance 1850 / 1850 1222 / 1222 1005 / 1005 Weight 131 lb 13.383 oz Intake: IV 2100 / 2100 1000 / 1000 1005 / 1005 KCl Inj 10 MEQ In D5W Inj 1,000 2000 / 2000 1000 / 1000 1005 / 1005 ML @ 125 mls/hr IV.CONT .Q8H3M [facility] Rx#:[id number] Cubicin Inj 400 MG In NS Inj 100 / 100 100 ML @ 200 mls/hr IV.SIG Q48H [facility] Rx#:[id number] Tube Feeding 100 / 100 322 / 322 Tube Irrigant 200 / 200 Water Bolus Amount 200 / 200 Output: Urine Amount (Catheter) 550 / 550 300 / 300 Condom 550 / 550 300 / 300 Other: # Incontinent Voids 3 Date of Last Bowel Movement 07/23/18 07/24/18 07/24/18 # Bowel Movements 2 2 Narrative: GENERAL: Somnolent and confused SKIN: Warm and dry NECK: No JVD CARDIOVASCULAR: Regular rate and rhythm without murmurs, gallops, or rubs RESPIRATORY: Few rhonchi GASTROINTESTINAL: Abdomen soft, non-tender, nondistended MUSCULOSKELETAL: No cyanosis, no edema - Urinary Catheter Management Indwelling Urethral Catheter Cath placed during this visit: yes, but has since been removed by the nurse Reason for continuing: Decision to DC catheter Insertion date: 07/12/18 Insertion time: 07:45 Removal date: 07/19/18 Removal time: 10:45 Condom Cath placed during this visit: yes Urethral indwelling: No Reason for continuing: Not indwelling catheter Insertion date: 07/19/18 Insertion time: 10:50 Results 07/24/18 06:01 07/24/18 06:01 Cardiac Enzymes 07/23/18 07/24/18 Range/Units 02:40 06:01 AST 169 H 162 H (15-37) U/L CBC 07/23/18 07/24/18 Range/Units 02:40 06:01 WBC 10.2 10.0 (4.0-11.0) th/mm3 RBC 3.20 L 2.80 L (4.50-5.90) mil/mm3 Hgb 10.9 L 9.7 L (13.0-17.0) gm/dL Hct 32.5 L 28.1 L (39.0-51.0) % Plt Count 69 L D 51 L (150-450) th/mm3 Neut # (Auto) 7.3 7.5 (1.8-7.7) th/mm3 Lymph # (Auto) 1.6 1.3 (1.0-4.8) th/mm3 [place] # (Auto) 0.8 0.9 (0.0-0.9) th/mm3 Eos # (Auto) 0.2 0.2 (0.0-0.4) th/mm3 Baso # (Auto) 0.2 0.1 (0.0-0.2) th/mm3 Comprehensive Metabolic Panel 07/22/18 07/23/18 07/24/18 Range/Units 19:20 02:40 06:01 Sodium 152 H 151 H 145 (136-145) meq/L Potassium 3.6 3.6 3.6 (3.5-5.1) meq/L Chloride 117 H 115 H 112 H (98-107) meq/L Carbon Dioxide 29.1 29.4 25.6 (21.0-32.0) meq/L BUN 28 H 27 H 21 H (7-18) mg/dL Creatinine 1.13 1.12 1.08 (0.60-1.30) mg/dL Calcium 8.9 8.3 L 8.2 L (8.5-10.1) mg/dL AST 169 H 162 H (15-37) U/L ALT 170 H 152 H (12-78) U/L Alkaline Phosphatase 102 119 H (45-117) U/L Total Protein 6.4 6.2 L (6.4-8.2) g/dL Albumin 2.4 L 2.4 L (3.4-5.0) g/dL Intake and Output 07/23/18 07/24/18 07/24/18 22:59 06:59 14:59 Intake Total 1300 / 1300 1522 / 1522 1005 / 1005 Output Total 550 / 550 300 / 300 Balance 750 / 750 1222 / 1222 1005 / 1005 Intake: IV 1000 / 1000 1000 / 1000 1005 / 1005 KCl Inj 10 MEQ In D5W Inj 1,000 1000 / 1000 1000 / 1000 1005 / 1005 ML @ 125 mls/hr IV.CONT .Q8H3M [facility] Rx#:[id number] Tube Feeding 100 / 100 322 / 322 Tube Irrigant 200 / 200 Water Bolus Amount 200 / 200 Output: Urine Amount (Catheter) 550 / 550 300 / 300 Condom 550 / 550 300 / 300 Other: # Incontinent Voids 3 Date of Last Bowel Movement 07/23/18 07/24/18 07/24/18 # Bowel Movements 2 2 Weight 131 lb 13.383 oz - Imaging and Cardiology Imaging: Impressions Gastrostomy Tube Placement 07/22/18 00:00 CONCLUSION: 1. Uncomplicated gastrostomy tube placement as above. Chest X-Ray 07/23/18 00:00 CONCLUSION: Increased opacity in the perihilar regions and lung bases which may represent posterior layering fluid and/or infiltrate. Assessment and Plan - Assessment (1) Chest pain Code(s): R07.9 - Chest pain, unspecified Status: Acute (2) Elevated troponin level Code(s): R74.8 - Abnormal levels of other serum enzymes Status: Acute (3) Liver failure Code(s): K72.90 - Hepatic failure, unspecified without coma Status: Acute (4) Hyperbilirubinemia Code(s): E80.6 - Other disorders of bilirubin metabolism Status: Acute - Plan No new cardiac issues. Continue post AL care. BP better controled. MS still altered. We will continue to monitor the patient during his hospitalization.
--- NOTE | 2018-07-24 15:44 | XR ---
EXAM DATE: 07/24/2018 3:36 PM EST AGE/SEX: 63 years / Male INDICATIONS: Pain. CLINICAL DATA: This is the patient's subsequent encounter. Patient reports that signs and symptoms h ave been present for 1 week and indicates a pain score of Nonresponsive. MEDICAL/SURGICAL HISTORY: Non-responsive. Non-responsive. COMPARISON: [facility] [place], CTA ABDOMEN & PELVIS W CONTRAST W 3D, 07/10/2018. . FINDINGS: 2 supine frontal views of the abdomen demonstrate air primarily within the colon without signs of matilda wel obstruction. Liver shadow is enlarged. No abnormal mass effect or concerning calcifications are i dentified. Lung bases and bones demonstrate no definite abnormality. CONCLUSION: 1. No acute abdominal abnormality is identified. 2. Hepatomegaly. Electronically signed by: Calvin Santa MD Board Certified Radiologist 07/24/2018 3:42 PM EST
--- NOTE | 2018-07-24 17:45 | P.PNPL ---
Subjective Interval history: 63 YOWM with RF, increased liver enzymes has pulm congestion Blood tinged secretions Tolerates TF Awake, follows simple commands Physical Exam Vital signs: Vital Signs 07/23/18 18:00 07/23/18 18:10 07/23/18 19:00 Temperature Pulse Rate 101 H 94 H 95 H Respiratory Rate 32 H 23 22 Blood Pressure 146/67 H Pulse Oximetry 97 97 97 07/23/18 19:10 07/23/18 20:00 07/23/18 20:10 Temperature 98.1 F Pulse Rate 95 H 97 H 94 H Respiratory Rate 23 27 H 22 Blood Pressure 115/56 L 140/64 Pulse Oximetry 97 97 98 07/23/18 20:29 07/23/18 21:00 07/23/18 21:10 Temperature Pulse Rate 98 H 92 H Respiratory Rate 26 H 22 Blood Pressure 123/91 H Pulse Oximetry 97 98 97 07/23/18 22:00 07/23/18 22:10 07/23/18 23:00 Temperature Pulse Rate 94 H 98 H 99 H Respiratory Rate 25 H 26 H 25 H Blood Pressure 128/63 Pulse Oximetry 97 98 98 07/24/18 00:00 07/24/18 00:10 07/24/18 01:00 Temperature 97.4 F L Pulse Rate 109 H 107 H 97 H Respiratory Rate 31 H 33 H 24 Blood Pressure 146/74 H Pulse Oximetry 94 L 95 98 07/24/18 01:10 07/24/18 02:00 07/24/18 02:10 Temperature Pulse Rate 114 H 118 H 109 H Respiratory Rate 34 H 25 H 29 H Blood Pressure 173/73 H 130/58 L Pulse Oximetry 95 97 96 07/24/18 03:00 07/24/18 03:10 07/24/18 04:00 Temperature 97.5 F L Pulse Rate 105 H 108 H 109 H Respiratory Rate 29 H 30 H 31 H Blood Pressure 167/79 H Pulse Oximetry 97 98 97 07/24/18 04:10 07/24/18 05:00 07/24/18 05:10 Temperature Pulse Rate 106 H 101 H 98 H Respiratory Rate 27 H 28 H 23 Blood Pressure 143/71 H 101/55 L Pulse Oximetry 96 95 96 07/24/18 06:00 07/24/18 06:10 07/24/18 07:00 Temperature Pulse Rate 103 H 96 H 96 H Respiratory Rate 27 H 24 24 Blood Pressure 139/63 Pulse Oximetry 96 97 97 07/24/18 07:10 07/24/18 08:00 07/24/18 08:10 Temperature Pulse Rate 96 H 107 H 112 H Respiratory Rate 24 30 H 32 H Blood Pressure 116/62 174/81 H Pulse Oximetry 96 97 94 L 07/24/18 08:31 07/24/18 09:00 07/24/18 09:10 Temperature 98.6 F 98.6 F Pulse Rate 110 H 101 H 105 H Respiratory Rate 30 H 24 27 H Blood Pressure 126/58 L 167/72 H Pulse Oximetry 96 96 95 07/24/18 10:00 07/24/18 10:25 07/24/18 11:00 Temperature Pulse Rate 106 H 108 H 104 H Respiratory Rate 31 H 28 H 23 Blood Pressure 148/70 H Pulse Oximetry 95 98 98 07/24/18 11:10 07/24/18 11:56 07/24/18 12:00 Temperature Pulse Rate 106 H 104 H 104 H Respiratory Rate 28 H 25 H 26 H Blood Pressure 162/76 H 158/72 H Pulse Oximetry 98 98 98 07/24/18 12:10 07/24/18 12:15 07/24/18 12:25 Temperature Pulse Rate 128 H 107 H 107 H Respiratory Rate 38 H 28 H 26 H Blood Pressure 204/91 H 184/61 H 157/69 H Pulse Oximetry 95 98 98 07/24/18 13:00 07/24/18 13:10 07/24/18 13:26 Temperature Pulse Rate 118 H 124 H 122 H Respiratory Rate 40 H 46 H 40 H Blood Pressure 161/112 H 116/56 L Pulse Oximetry 96 95 95 07/24/18 14:00 07/24/18 14:10 07/24/18 15:00 Temperature Pulse Rate 118 H 120 H 123 H Respiratory Rate 36 H 37 H 37 H Blood Pressure 118/59 L Pulse Oximetry 95 95 94 L 07/24/18 15:10 07/24/18 16:00 07/24/18 16:10 Temperature 98.1 F Pulse Rate 122 H 118 H 116 H Respiratory Rate 33 H 31 H 28 H Blood Pressure 154/65 H 118/58 L Pulse Oximetry 95 94 L 95 07/24/18 17:00 12/20/18 17:10 Temperature Pulse Rate 114 H 116 H Respiratory Rate 25 H 26 H Blood Pressure 119/58 L Pulse Oximetry 94 L 94 L Intake & Output 07/23/18 07/24/18 07/24/18 18:59 06:59 18:59 Intake Total 2400 / 2400 1522 / 1522 2009 Output Total 550 / 550 300 / 300 Balance 1850 / 1850 1222 / 1222 2009 Weight 59.8 kg Intake: IV 2100 / 2100 1000 / 1000 2009 KCl Inj 10 MEQ In D5W Inj 1,000 2000 / 2000 1000 / 1000 2009 ML @ 125 mls/hr IV.CONT .Q8H3M [facility] Rx#:[id number] Cubicin Inj 400 MG In NS Inj 100 / 100 100 ML @ 200 mls/hr IV.SIG Q48H [facility] Rx#:[id number] Tube Feeding 100 / 100 322 / 322 Tube Irrigant 200 / 200 Water Bolus Amount 200 / 200 Output: Urine Amount (Catheter) 550 / 550 300 / 300 Condom 550 / 550 300 / 300 Other: # Incontinent Voids 3 Date of Last Bowel Movement 07/23/18 07/24/18 07/24/18 # Bowel Movements 2 2 GENERAL: MBMN Weak, mild sob SKIN: Warm and dry. HEAD: Normocephalic. EYES: Has scleral icterus. No injection or drainage. NECK: Supple, trachea midline. No JVD or lymphadenopathy. CARDIOVASCULAR: Regular rate and rhythm without murmurs, gallops, or rubs. RESPIRATORY: Breath sounds equal bilaterally. No accessory muscle use. GASTROINTESTINAL: Abdomen soft, non-tender, nondistended. PEG tube MUSCULOSKELETAL: No cyanosis, or edema. BACK: Nontender without obvious deformity. No CVA tenderness. - Urinary Catheter Management Indwelling Urethral Catheter Cath placed during this visit: yes, but has since been removed by the nurse Reason for continuing: Decision to DC catheter Insertion date: 07/12/18 Insertion time: 07:45 Removal date: 07/19/18 Removal time: 10:45 Condom Cath placed during this visit: yes Urethral indwelling: No Reason for continuing: Not indwelling catheter Insertion date: 07/19/18 Insertion time: 10:50 Assessment and Plan - Plan IMPRESSION: 1. Methicillin-resistant Staphylococcus aureus. 2. Urinary tract infection. 3. Sepsis. 4. Hemoptysis. 5. Respiratory distress status post extubation. 6. Increased liver enzymes. 7. Thrombocytopenia. 8. The patient is homeless. 9. Nicotine use. 10. Alcohol use. PLAN: Supplement 02 Oropharyngeal suction NT suction/nasal trumpet if needed Tube feeding monitor Lytes monitor Plt count Protonix 40 mg IV daily
[2018-07-25] MEDS: Potassium Chloride Inj 10 MEQ in Dextrose 5% in Water Inj 1,000 ML IV.CONT SCH ×6 (02:38→19:42)
[2018-07-25] MEDS: Oral Hygiene Kit OROPHARYNG SCH ×5 (03:46→23:44)
[2018-07-25] MEDS: Morphine Inj 4 MG/ML Vial IV.PUSH PRN ×3 (04:11→19:34)
[2018-07-25 05:29] LABS: Baso % (Auto) 0.3 % (0.0-2.0); Eos # (Auto) 0.1 th/mm3 (0.0-0.4); Eos % (Auto) 0.5 % (0.0-4.0); Hematocrit 26.5 % (39.0-51.0); Hemoglobin 9.2 gm/dL (13.0-17.0); Lymph # (Auto) 1.3 th/mm3 (1.0-4.8); Lymph % (Auto) 11.9 % (9.0-44.0); Mean Corpuscular HGB Conc 34.9 % (32.0-36.0); Mean Corpuscular Hemoglobin 34.9 pg (27.0-34.0); Mean Platelet Volume 12.4 fL (7.0-11.0); Mono # (Auto) 1.2 th/mm3 (0.0-0.9); Mono % (Auto) 11.4 % (0.0-8.0); Neut # (Auto) 8.3 th/mm3 (1.8-7.7); Neut % (Auto) 75.9 % (16.0-70.0); Platelet Count 45 th/mm3 (150-450); Red Blood Count 2.65 mil/mm3 (4.50-5.90); Red Cell Distribution Width 16.5 % (11.6-17.2); White Blood Count 10.9 th/mm3 (4.0-11.0)
[2018-07-25 05:46] LABS: Alanine Aminotransferase 147 U/L (12-78); Albumin 2.4 g/dL (3.4-5.0); Anion Gap 8 meq/L (5-15); Aspartate Aminotransferase 157 U/L (15-37); Blood Urea Nitrogen 26 mg/dL (7-18); Calcium 8.5 mg/dL (8.5-10.1); Carbon Dioxide 23.6 meq/L (21.0-32.0); Chloride 105 meq/L (98-107); Glomerular Filtration Rate 49 mL/min (>89); Glucose,Random 142 mg/dL (74-106); Magnesium 1.7 mg/dL (1.5-2.5); Potassium 3.8 meq/L (3.5-5.1); Sodium 137 meq/L (136-145)
[2018-07-25 06:01] LABS: Alkaline Phosphatase 137 U/L (45-117); Total Protein 6.2 g/dL (6.4-8.2)
[2018-07-25 07:52] LABS: Lymphocytes 8 % (9-44); Metamyelocytes 2 % (0-1); Monocytes 4 % (0-8)
[2018-07-25] MEDS: Pantoprazole Inj 40 MG Vial IV.PUSH SCH (07:59)
[2018-07-25] MEDS: Chlorhexidine 0.12% Oral Kit 15 ML UDC OROPHARYNG SCH ×2 (07:59→20:17)
[2018-07-25] MEDS: Mupirocin 2% Nasal Oint Topical Syringe EACH NARE SCH ×2 (07:59→20:17)
--- NOTE | 2018-07-25 13:20 | P.PNCA ---
Subjective Interval history: Patient is more alert today and answering questions. Patient denies any CP, pressure, palpitations, dizziness, edema or SOB. Patient states he is feeling a little better and wants to get out of bed. Medications and Allergies Allergies Allergy/AdvReac Type Severity Reaction Status Date / Time No Known Allergies Allergy Verified 07/08/18 12:30 Home Medications Medication Instructions Recorded Confirmed Type No Known Home Medications 07/08/18 07/08/18 History Active Medications: Active Medications Al Hydroxide/Mg Hydroxide (Milk Of Magnesia Liq) 30 ml PO Q12H PRN PRN Reason: Mild Constipation Albuterol (Albuterol Neb (Prn)) 2.5 mg NEB Q2HR NEB PRN PRN Reason: DYSPNEA Albuterol (Duoneb Neb (Prn)) 1 ampul NEB Q2HR NEB PRN PRN Reason: SHORTNESS OF BREATH Last Admin: 07/14/18 08:20 Dose: 1 ampul Chlorhexidine Gluconate (Peridex 0.12% Oral Kit) 15 ml OROPHARYNG BID@0800, 2000 [facility] Last Admin: 07/25/18 07:59 Dose: 15 ml Flumazenil (Romazecon Inj) 0.2 mg IV.PUSH Q1M PRN PRN Reason: OVERSEDATION Haloperidol Lactate (Haldol Inj) 1 mg IV.PUSH Q15M PRN PRN Reason: for severe agitation Last Admin: 07/21/18 21:43 Dose: 1 mg Hydralazine HCl (Apresoline Inj) 20 mg IV.PUSH Q4H PRN PRN Reason: Sys Bp Greater Than 165 [facility] Last Admin: 07/24/18 12:20 Dose: 20 mg Potassium Chloride 10 meq/ (Dextrose) 1,005 mls @ 125 mls/hr IV.CONT .Q8H3M [facility] Last Admin: 07/25/18 10:40 Dose: 125 mls/hr Labetalol HCl (Trandate Inj) 10 mg IV.PUSH Q1H PRN PRN Reason: Sbp>165, Dbp>90, Hr>65 Lactulose (Lactulose Liq) 30 ml PO DAILY PRN PRN Reason: SEVERE CONSITIPATION Lactulose (Lactulose Liq) 30 ml PO TID [facility] Last Admin: 07/25/18 07:59 Dose: 30 ml Lorazepam (Ativan) 1 mg PO Q4H PRN PRN Reason: for CIWA 8-10 Lorazepam (Ativan) 2 mg PO Q2H PRN PRN Reason: for CIWA 11-14 Lorazepam (Ativan Inj) 2 mg IV.PUSH Q2H PRN PRN Reason: for CIWA 11-14 Last Admin: 07/20/18 11:13 Dose: 2 mg Lorazepam (Ativan Inj) 2 mg IV.PUSH Q1H PRN PRN Reason: for CIWA 15-20 Last Admin: 07/11/18 21:37 Dose: 2 mg Lorazepam (Ativan Inj) 2 mg IV.PUSH Q15M PRN PRN Reason: for CIWA > 20 Last Admin: 07/22/18 15:30 Dose: 2 mg Lorazepam (Ativan Inj) 1 mg IV.PUSH Q4H PRN PRN Reason: for CIWA 8-10 Last Admin: 07/20/18 00:45 Dose: 1 mg Metoprolol Tartrate (Lopressor Inj) 2.5 mg IV.PUSH Q6H PRN PRN Reason: BLOOD PRESSURE MANAGEMENT Miscellaneous Medication () 1 each OROPHARYNG 0000,0400,1200,1600 [facility] Last Admin: 07/25/18 05:46 Dose: 1 each Morphine Sulfate (Morphine Inj) 2 mg IV.PUSH Q4H PRN PRN Reason: BREAKTHROUGH PAIN Last Admin: 07/25/18 04:11 Dose: 2 mg Mupirocin (Bactroban 2% Nasal Oint) 1 applicatio EACH NARE BID [facility] Last Admin: 07/25/18 07:59 Dose: 1 applicatio Naloxone HCl (Narcan Inj) 0.4 mg IV.PUSH UNSCH PRN PRN Reason: SEE LABEL COMMENTS Ondansetron HCl (Zofran Inj) 4 mg IV.PUSH Q6H PRN PRN Reason: NAUSEA OR VOMITING Pantoprazole Sodium (Protonix Inj) 40 mg IV.PUSH DAILY [facility] Last Admin: 07/25/18 07:59 Dose: 40 mg Sennosides (Senokot) 17.2 mg PO Q12H PRN PRN Reason: Moderate Constipation Sodium Chloride (Ns Flush) 2 ml IV.FLUSH PRN PRN PRN Reason: FLUSH AFTER USING IV ACCESS Last Admin: 07/20/18 20:10 Dose: 2 ml Sodium Chloride (Ns Flush) 2 ml IV.FLUSH BID [facility] Last Admin: 07/25/18 07:59 Dose: 2 ml Sterile Water (Free Water) 200 ml G-TUBE Q8H [facility] Last Admin: 07/25/18 10:40 Dose: 200 ml Physical Exam Vital signs: Vital Signs 07/24/18 13:26 07/24/18 14:00 07/24/18 14:10 Temperature Pulse Rate 122 H 118 H 120 H Respiratory Rate 40 H 36 H 37 H Blood Pressure 116/56 L 118/59 L Pulse Oximetry 95 95 95 07/24/18 15:00 07/24/18 15:10 07/24/18 16:00 Temperature Pulse Rate 123 H 122 H 118 H Respiratory Rate 37 H 33 H 31 H Blood Pressure 154/65 H Pulse Oximetry 94 L 95 94 L 07/24/18 16:10 07/24/18 17:00 07/24/18 17:10 Temperature 98.1 F Pulse Rate 116 H 114 H 116 H Respiratory Rate 28 H 25 H 26 H Blood Pressure 118/58 L 119/58 L Pulse Oximetry 95 94 L 94 L 07/24/18 18:00 07/24/18 19:00 07/24/18 20:00 Temperature 98.1 F Pulse Rate 120 H 113 H 111 H Respiratory Rate 33 H 27 H 24 Blood Pressure 119/58 L 109/52 L 115/56 L Pulse Oximetry 96 95 95 07/24/18 20:52 07/24/18 21:00 07/24/18 22:00 Temperature Pulse Rate 109 H 106 H Respiratory Rate 23 28 H Blood Pressure 126/60 129/61 Pulse Oximetry 95 95 95 07/24/18 23:00 07/25/18 00:00 07/25/18 01:00 Temperature 97.7 F Pulse Rate 106 H 103 H 104 H Respiratory Rate 25 H 21 21 Blood Pressure 126/60 122/57 L Pulse Oximetry 95 93 L 92 L 07/25/18 02:00 07/25/18 02:39 07/25/18 03:00 Temperature Pulse Rate 108 H 100 H 105 H Respiratory Rate 25 H 25 H 35 H Blood Pressure 132/62 123/58 L Pulse Oximetry 92 L 95 94 L 07/25/18 04:00 07/25/18 04:54 07/25/18 05:00 Temperature 98.1 F Pulse Rate 118 H 99 H 103 H Respiratory Rate 48 H 20 24 Blood Pressure 169/74 H 138/63 Pulse Oximetry 94 L 94 L 94 L 07/25/18 05:01 07/25/18 06:00 07/25/18 07:00 Temperature 98.4 F Pulse Rate 99 H 104 H 97 H Respiratory Rate 20 28 H 15 Blood Pressure 139/63 Pulse Oximetry 95 94 L 95 07/25/18 07:02 07/25/18 08:00 07/25/18 09:00 Temperature 98.4 F Pulse Rate 97 H 97 H 94 H Respiratory Rate 18 20 17 Blood Pressure 141/67 H 145/79 H Pulse Oximetry 95 95 95 07/25/18 10:00 07/25/18 11:00 Temperature 98.4 F 98.4 F Pulse Rate 96 H 97 H Respiratory Rate 20 21 Blood Pressure 129/61 130/59 L Pulse Oximetry 95 96 Intake & Output 07/24/18 07/25/18 07/25/18 18:59 06:59 18:59 Intake Total 2943 / 2943 1549 / 1549 1005 / 1005 Output Total 325 / 325 450 / 450 Balance 2618 / 2618 1099 / 1099 1005 / 1005 Weight 61.2 kg Intake: IV 2009 1005 / 1005 1005 / 1005 KCl Inj 10 MEQ In D5W Inj 1,000 2009 1005 / 1005 1005 / 1005 ML @ 125 mls/hr IV.CONT .Q8H3M [facility] Rx#:[id number] Tube Feeding 533 / 533 344 / 344 Water Bolus Amount 400 / 400 200 / 200 Output: Urine 450 / 450 Stool 0 / 0 Urine Amount (Catheter) 325 / 325 Condom 325 / 325 Other: # Incontinent Voids 2 2 Date of Last Bowel Movement 07/24/18 07/24/18 07/24/18 - Constitutional no acute distress - Routine HEENT Exam Head: Present: normocephalic ENT: Present: mucous membranes moist Comments: chronic dilated left pupil - Routine Neck Exam Present: full ROM - Routine Respiratory Exam Present: rhonchi - Routine Cardiovascular Exam Present: S1, S2, tachycardia. Absent: murmur, gallop, rubs - Routine Abdominal Exam Present: normoactive bowel sounds - Routine Extremities Exam Present: full ROM, pulses intact, normal capillary refill. Absent: cyanosis, clubbing, edema Comments: left arm is in a cast. - Routine Skin Exam Present: intact - Routine Neurological Exam Present: oriented X3 - Detailed Neurological Exam: Coma Scale Eye Opening: Spontaneous Verbal Response: Confused Motor Response: Obey commands Smoot Coma Scale Total: 14 - Routine Psychiatric Exam Present: unable to assess - Urinary Catheter Management Indwelling Urethral Catheter Cath placed during this visit: yes, but has since been removed by the nurse Reason for continuing: Decision to DC catheter Insertion date: 07/12/18 Insertion time: 07:45 Removal date: 07/19/18 Removal time: 10:45 Condom Cath placed during this visit: yes Urethral indwelling: No Reason for continuing: Not indwelling catheter Insertion date: 07/19/18 Insertion time: 10:50 Results 07/25/18 05:00 07/25/18 05:00 Cardiac Enzymes 07/24/18 07/25/18 Range/Units 06:01 05:00 AST 162 H 157 H (15-37) U/L CBC 07/24/18 07/25/18 Range/Units 06:01 05:00 WBC 10.0 10.9 (4.0-11.0) th/mm3 RBC 2.80 L 2.65 L (4.50-5.90) mil/mm3 Hgb 9.7 L 9.2 L (13.0-17.0) gm/dL Hct 28.1 L 26.5 L (39.0-51.0) % Plt Count 51 L 45 L (150-450) th/mm3 Neut # (Auto) 7.5 8.3 H (1.8-7.7) th/mm3 Lymph # (Auto) 1.3 1.3 (1.0-4.8) th/mm3 [place] # (Auto) 0.9 1.2 H (0.0-0.9) th/mm3 Eos # (Auto) 0.2 0.1 (0.0-0.4) th/mm3 Baso # (Auto) 0.1 0.0 (0.0-0.2) th/mm3 Comprehensive Metabolic Panel 07/24/18 07/25/18 Range/Units 06:01 05:00 Sodium 145 137 (136-145) meq/L Potassium 3.6 3.8 (3.5-5.1) meq/L Chloride 112 H 105 (98-107) meq/L Carbon Dioxide 25.6 23.6 (21.0-32.0) meq/L BUN 21 H 26 H (7-18) mg/dL Creatinine 1.08 1.46 H (0.60-1.30) mg/dL Calcium 8.2 L 8.5 (8.5-10.1) mg/dL AST 162 H 157 H (15-37) U/L ALT 152 H 147 H (12-78) U/L Alkaline Phosphatase 119 H 137 H (45-117) U/L Total Protein 6.2 L 6.2 L (6.4-8.2) g/dL Albumin 2.4 L 2.4 L (3.4-5.0) g/dL Intake and Output 07/24/18 07/25/18 07/25/18 22:59 06:59 14:59 Intake Total 1938 / 1938 1549 / 1549 1005 / 1005 Output Total 325 / 325 450 / 450 Balance 1613 / 1613 1099 / 1099 1005 / 1005 Intake: IV 1005 / 1005 1005 / 1005 1005 / 1005 KCl Inj 10 MEQ In D5W Inj 1,000 1005 / 1005 1005 / 1005 1005 / 1005 ML @ 125 mls/hr IV.CONT .Q8H3M [facility] Rx#:[id number] Tube Feeding 533 / 533 344 / 344 Water Bolus Amount 400 / 400 200 / 200 Output: Urine 450 / 450 Stool 0 / 0 Urine Amount (Catheter) 325 / 325 Condom 325 / 325 Other: # Incontinent Voids 2 2 Date of Last Bowel Movement 07/24/18 07/24/18 07/24/18 Weight 61.2 kg - Imaging and Cardiology Imaging: Impressions Chest X-Ray 07/23/18 00:00 CONCLUSION: Increased opacity in the perihilar regions and lung bases which may represent posterior layering fluid and/or infiltrate. Abdomen X-Ray 07/24/18 00:00 CONCLUSION: 1. No acute abdominal abnormality is identified. 2. Hepatomegaly. Assessment and Plan - Assessment (1) Chest pain Code(s): R07.9 - Chest pain, unspecified Status: Acute (2) Elevated troponin level Code(s): R74.8 - Abnormal levels of other serum enzymes Status: Acute (3) Liver failure Code(s): K72.90 - Hepatic failure, unspecified without coma Status: Acute (4) Hyperbilirubinemia Code(s): E80.6 - Other disorders of bilirubin metabolism Status: Acute - Plan There have been no new cardiac issues at this time. We will continue with current cardiac treatment plan including post PR care. Patient is more alert today but still very confused. Continue ICU treatment. We will continue to monitor patient during hospitalization. Agree with the plan of hospice evaluation. The patient was seen and evaluated by Dr. Gonzalez who participated in care, management and decision making. - Attending Attestation Patient seen and examined. I reviewed and agree with the evaluation and plan as presented. Continue current program. Still with AMS. Recommend hospice evaluation.
--- NOTE | 2018-07-25 15:11 | P.PNID ---
Subjective Remarks: Patient is a 63-year-old male, presented to the hospital complaining of pain and swelling on his left elbow. He stated that he fell about a week ago but did not seek any treatment for his left elbow. He presented to the ED, and he was found to have a fracture of the olecranon on the left side. Patient also since admission has complained of some abdominal pain. He has known history of significant alcohol abuse. Imaging studies of the abdomen showed hepatic steatosis, pericholecystic fluid with no ductal dilatation. Ultrasound showed pericholecystic fluid with negative Lundy sign. He had a HIDA scan which showed no activity which could most likely be due to his liver disease. Patient also had a CTA as part of evaluation for his abdominal pain. That is okay. There were 2 blood cultures done in the ED, and they are now reported as growing MRSA. Patient has had some low-grade temps. Overnight he had persistent hypotension, and he was transferred to the ICU. Patient currently is on pressors. He is afebrile. He is still complaining of abdominal pain. He states he has chronic back pain which has not changed. He denies any shortness of breath. On this admission he was also found to have 80% right carotid artery stenosis, and vascular is following the patient. Echocardiograms not showing any obvious vegetation. His WBC is mildly elevated. He has an elevated lactic acid. His platelet count is low, fibrinogen is normal. Infectious disease consultation has been requested to assist with evaluation and treatment of his bacteremia. Notes reviewed Temps ok Mental status a little better Creatinine improving, good UO WBC normal Sputum ok CXR improving No new (+) BC Only (+) BC is from 07/08 Completed 14 days Abx Antibiotics: None Lines: Line sites with no e.o infection Past Medical History: Tobacco and ETOH abuse Drug screen (+) cocaine (denies IVDU), admits to smoking Allergies/Adverse Reactions: Allergies No Known Allergies Allergy (Verified 07/08/18 12:30) Objective Vital Signs 07/24/18 15:10 07/24/18 16:00 07/24/18 16:10 Temperature 98.1 F Pulse Rate 122 H 118 H 116 H Respiratory Rate 33 H 31 H 28 H Blood Pressure 154/65 H 118/58 L Pulse Oximetry 95 94 L 95 07/24/18 17:00 07/24/18 17:10 07/24/18 18:00 Temperature Pulse Rate 114 H 116 H 120 H Respiratory Rate 25 H 26 H 33 H Blood Pressure 119/58 L 119/58 L Pulse Oximetry 94 L 94 L 96 07/24/18 19:00 07/24/18 20:00 07/24/18 20:52 Temperature 98.1 F Pulse Rate 113 H 111 H Respiratory Rate 27 H 24 Blood Pressure 109/52 L 115/56 L Pulse Oximetry 95 95 95 07/24/18 21:00 07/24/18 22:00 07/24/18 23:00 Temperature Pulse Rate 109 H 106 H 106 H Respiratory Rate 23 28 H 25 H Blood Pressure 126/60 129/61 126/60 Pulse Oximetry 95 95 95 07/25/18 00:00 07/25/18 01:00 07/25/18 02:00 Temperature 97.7 F Pulse Rate 103 H 104 H 108 H Respiratory Rate 21 21 25 H Blood Pressure 122/57 L Pulse Oximetry 93 L 92 L 92 L 07/25/18 02:39 07/25/18 03:00 07/25/18 04:00 Temperature 98.1 F Pulse Rate 100 H 105 H 118 H Respiratory Rate 25 H 35 H 48 H Blood Pressure 132/62 123/58 L 169/74 H Pulse Oximetry 95 94 L 94 L 07/25/18 04:54 07/25/18 05:00 07/25/18 05:01 Temperature Pulse Rate 99 H 103 H 99 H Respiratory Rate 20 24 20 Blood Pressure 138/63 Pulse Oximetry 94 L 94 L 95 07/25/18 06:00 07/25/18 07:00 07/25/18 07:02 Temperature 98.4 F Pulse Rate 104 H 97 H 97 H Respiratory Rate 28 H 15 18 Blood Pressure 139/63 Pulse Oximetry 94 L 95 95 07/25/18 08:00 07/25/18 09:00 07/25/18 10:00 Temperature 98.4 F 98.4 F Pulse Rate 97 H 94 H 96 H Respiratory Rate 20 17 20 Blood Pressure 141/67 H 145/79 H 129/61 Pulse Oximetry 95 95 95 07/25/18 11:00 07/25/18 12:00 07/25/18 13:00 Temperature 98.4 F Pulse Rate 97 H 100 H 106 H Respiratory Rate 21 21 24 Blood Pressure 130/59 L 139/65 152/73 H Pulse Oximetry 96 95 95 07/25/18 14:00 07/25/18 14:19 Temperature Pulse Rate 109 H 114 H Respiratory Rate 29 H 37 H Blood Pressure 175/85 H Pulse Oximetry 93 L 95 Intake & Output 07/24/18 07/25/18 07/25/18 18:59 06:59 18:59 Intake Total 2943 / 2943 1549 / 1549 1005 / 1005 Output Total 325 / 325 450 / 450 Balance 2618 / 2618 1099 / 1099 1005 / 1005 Weight 61.2 kg Intake: IV 2009 1005 / 1005 1005 / 1005 KCl Inj 10 MEQ In D5W Inj 1,000 2009 1005 / 1005 1005 / 1005 ML @ 125 mls/hr IV.CONT .Q8H3M [facility] Rx#:[id number] Tube Feeding 533 / 533 344 / 344 Water Bolus Amount 400 / 400 200 / 200 Output: Urine 450 / 450 Stool 0 / 0 Urine Amount (Catheter) 325 / 325 Condom 325 / 325 Other: # Incontinent Voids 2 2 Date of Last Bowel Movement 07/24/18 07/24/18 07/24/18 Lab - Hematology Results 07/24/18 07/25/18 06:01 05:00 WBC 10.0 10.9 RBC 2.80 L 2.65 L Hgb 9.7 L 9.2 L Hct 28.1 L 26.5 L MCV 100.7 H 100.0 MCH 34.7 H 34.9 H MCHC 34.4 34.9 RDW 16.1 16.5 Plt Count 51 L 45 L MPV 11.0 12.4 H Prelim Diff (Auto) Slide review pending Slide review pending Neut % (Auto) 74.9 H 75.9 H Lymph % (Auto) 13.3 11.9 [place] % (Auto) 9.1 H 11.4 H Eos % (Auto) 1.7 0.5 Baso % (Auto) 1.0 0.3 Neut # (Auto) 7.5 8.3 H Lymph # (Auto) 1.3 1.3 [place] # (Auto) 0.9 1.2 H Eos # (Auto) 0.2 0.1 Baso # (Auto) 0.1 0.0 WBC Differential Manual diff final Manual diff final Seg Neuts % (Manual) 68 80 H Band Neuts % (Manual) 12 H 6 Lymphocytes % (Manual) 13 8 L Monocytes % (Manual) 4 4 Eosinophils % (Manual) 2 Basophils % (Manual) 1 Metamyelocytes % (Man) 2 H Abs Neuts (Manual) 8.0 H 9.6 H Differential Comment . . Toxic Granulation 1+ H Platelet Estimate Low L Low L Platelet Morphology Enlarged H Enlarged H Target Cells 1+ H Lab - Chemistry Results 07/24/18 07/24/18 07/25/18 06:01 09:51 05:00 Sodium 145 137 Potassium 3.6 3.8 Chloride 112 H 105 Carbon Dioxide 25.6 23.6 Anion Gap 7 8 BUN 21 H 26 H Creatinine 1.08 1.46 H Estimated GFR 70 L 49 L POC Glucose 132 H Random Glucose 144 H 142 H Calcium 8.2 L 8.5 Magnesium 1.6 1.7 Total Bilirubin 11.7 H 14.2 H AST 162 H 157 H ALT 152 H 147 H Alkaline Phosphatase 119 H 137 H Total Protein 6.2 L 6.2 L Albumin 2.4 L 2.4 L 07/25/18 09:57 Sodium Potassium Chloride Carbon Dioxide Anion Gap BUN Creatinine Estimated GFR POC Glucose 151 H Random Glucose Calcium Magnesium Total Bilirubin AST ALT Alkaline Phosphatase Total Protein Albumin Imaging: ITS Impressions Elbow X-Ray 07/08/18 18:01 CONCLUSION: 1. Small, mildly displaced olecranon avulsion fracture fragments of the triceps insertion with associated soft tissue swelling. 2. Joint effusion. No perceptible intra-articular fracture. No subluxation. Abdomen/Pelvis CT 07/08/18 18:02 CONCLUSION: 1. Severe fatty infiltration of the liver. 2. Apparent pericholecystic fluid. Also fairly robust enhancement of the gallbladder mucosa. Please correlate clinically for any evidence of cholecystitis. No stones or ductal dilatation demonstrated. Gallbladder Ultrasound 07/08/18 18:53 CONCLUSION: 1. Small, nonspecific pericholecystic fluid without stones, wall thickening or sonographic Lundy's sign. The fluid may be on the basis of hepatocellular disease. The ultrasound does not support acute cholecystitis. 2. Fatty infiltrated and mildly enlarged liver. Carotid Doppler Study 07/09/18 00:00 CONCLUSION: 1. Right Internal Carotid Artery: Findings indicate >70% stenosis, but less than near occlusion. 2. Left Internal Carotid Artery: Findings indicate <50% stenosis. Hepatobiliary Scan Nuclear Medicine 07/09/18 14:22 CONCLUSION: 1. No activity in intrahepatic ducts, common duct or small bowel. Considerations include include acute obstruction of the common duct and diffuse hepatocellular disease. 2. CT scan shows no dilatation of the common duct or intrahepatic ducts. Diffuse hepatocellular disease is suspected. Neck CTA 07/10/18 00:00 CONCLUSION: 1. 80% stenosis of the proximal right ICA. Left carotid and bilateral vertebral arteries are patent. 2. Emphysematous changes. Abdomen/Pelvis CTA 07/10/18 00:08 CONCLUSION: 1. 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 The SMA and MIC are patent. 2. Hepatic steatosis. 3. Emphysematous changes. Abdomen/Bladder Ultrasound 07/11/18 00:00 CONCLUSION: 1. Normal ultrasound appearance of the kidneys. 2. Other findings include hepatic steatosis and left pleural effusion. Elbow CT 07/11/18 00:00 CONCLUSION: 1. Small fracture fragment off the olecranon. 2. There is subcutaneous edema identified posterior to the elbow with soft tissue swelling. Head CT 07/13/18 00:00 CONCLUSION: 1. No acute intracranial abnormality. 2. Atrophy. . Gastrostomy Tube Placement 07/22/18 00:00 CONCLUSION: 1. Uncomplicated gastrostomy tube placement as above. Chest X-Ray 07/23/18 00:00 CONCLUSION: Increased opacity in the perihilar regions and lung bases which may represent posterior layering fluid and/or infiltrate. Abdomen X-Ray 07/24/18 00:00 CONCLUSION: 1. No acute abdominal abnormality is identified. 2. Hepatomegaly. Physical Exam: GENERAL: awake, , NAD SKIN: Cool and dry. No generalized rash, no ecchymoses. HEAD: Hair shaved, has red maculopapular rash in scalp EYES: Datil conjunctiva. No petechia or hemorrhage. Pupils equal, round and reactive to light. Has mild injection ENT: Intubated CARDIOVASCULAR: Regular rate and rhythm. RESPIRATORY: Decreased BS at bases ABDOMEN: Soft, Gtube site ok EXTREMITIES: No clubbing, cyanosis. Mild pedal edema. Has posterior splint in his whole LUE NEUROLOGICAL: Pupils unequal left > right. Awake and responding, moving all extremities PSYCHIATRIC: Cooperative LINE: No evidence of infection Assessment and Plan - Plan Impression MRSA sepsis ? olecranon trauma as entry point for MRSA MRSA bacteremia, ? endocarditis - echo ok - S/P Rx Shock, resolved Known ETOH abuse and tobacco abuse Denies IVDU, admits to smoking cocaine ETOH liver disease Elevated LFT Thrombocytopenia Acute renal failure: sepsis, contrast, meds. - improving - has good UO Respiratory failure, extubated Pleural effusion, fluid transudative Recommendation Has been off Abx Seems clinically stable from ID standpoint I will be available prn Please reconsult if with any new ID issue or question
--- NOTE | 2018-07-25 15:33 | P.PNIM ---
Subjective Interval history: In the bed watching TV, feels much better. Less abd pain , tube feedings are down to 20 cc .hr tolerates well. No n/v/d/c. Some sonb, not coughing blood anymore. Feels tired No chest pain. Physical Exam Vital signs: Last Vital Signs Temp 98.4 F 07/25/18 11:00 Pulse 114 H 07/25/18 14:19 Resp 37 H 07/25/18 14:19 BP 175/85 H 07/25/18 14:19 Pulse Ox 95 07/25/18 14:19 Intake & Output 07/23/18 07/24/18 07/25/18 07/26/18 06:59 06:59 06:59 06:59 Intake Total 1930 / 1930 3922 / 3922 4492 / 4492 1005 / 1005 Output Total 1010 / 1010 850 / 850 775 / 775 Balance 920 / 920 3072 / 3072 3717 / 3717 1005 / 1005 Weight 61 kg 59.8 kg 61.2 kg Narrative: GENERAL: 63 yo male appearing older, chronically ill, more awake and alert, not in acute distress at this time. SKIN: Warm and dry. Lice were found, treated NECK: Supple, trachea midline. No JVD. CARDIOVASCULAR: Regular rate and rhythm without murmurs, gallops, or rubs. RESPIRATORY: Breath sounds coarse sounding. SOB. GASTROINTESTINAL: Abdomen soft, some pain at the PEG tube site. Abd nondistended. GENITOURINARY: Condom catheter, dark yellow urine. MUSCULOSKELETAL: No cyanosis, no edema. . Urinary Catheter Management Indwelling Urethral Catheter: Cath placed during this visit: yes, but has since been removed by the nurse Insertion date: 07/12/18 Insertion time: 07:45 Removal date: 07/19/18 Removal time: 10:45 Condom: Cath placed during this visit: yes Urethral indwelling: No Insertion date: 07/19/18 Insertion time: 10:50 Results Labs CBC & Chem 7: 07/25/18 05:00 07/25/18 05:00 Imaging Imaging: Impressions Abdomen X-Ray 07/24/18 00:00 CONCLUSION: 1. No acute abdominal abnormality is identified. 2. Hepatomegaly. Assessment and Plan (1) Chest pain: Code(s): R07.9 - Chest pain, unspecified Status: Acute (2) Elevated troponin level: Code(s): R74.8 - Abnormal levels of other serum enzymes Status: Acute (3) Liver failure: Code(s): K72.90 - Hepatic failure, unspecified without coma Status: Acute (4) Hyperbilirubinemia: Code(s): E80.6 - Other disorders of bilirubin metabolism Status: Acute Plan Neuro/Psych: Acute metabolic encephalopathy, imprpving Anisocoria EtOH abuse Recent cocaine/opiate abuse -inhaled. Denies intravenous MVI/ folate. Patient states he inhaled cocaine 4-5 days prior to admission. Denies IV drug use. Discontinued acetaminophen and related products with elevated transaminases Stat CT of the head for unequal pupil, negative for acute findings Encephalopathy improved enough to allow extubation 07/18. Check ammonia level as needed due to encephalopathy. Resume lactulose following G-tube placement by IR CV: Severe sepsis Lactic acidosis Elevated troponin likely demand ischemia Right carotid artery stenosis Elevated CPK Cardiology Dr. chaudhry. No intervention planned 2D echocardiogram revealed Normal left ventricular size. Wall thickness is normal. The left ventricular systolic function is normal with an estimated ejection fraction in the range of 55-60%. Not on aspirin or heparin at this time due to thrombocytopenia Followed by vascular surgery for right carotid artery stenosis 80%. Resp: Acute hypoxemic respiratory failure Right lower lobe pneumonia with effusion Emphysematous type changes on CT neck Hyperammonemia Hypoalbuminemia Tobacco abuse Emergently intubated and placed on mechanical ventilation. PRV/AC 07/13/2018 Incentive spirometry. Extubated 07/18 Chest tube removed 07/19, chest x-ray after with the right lung well expanded. Consult pulmunology IS/ Acapella, continue duonebs GI: Elevated transaminases Elevated total bilirubin Poss acalc jody Hypoalbuminemia Noted CT abdomen/pelvis revealed possible early cholecystitis. Pericholecystic fluid. Ultrasound revealed negative Lundy sign. Nuclear medicine scan revealed no activity in the intrahepatic ductal compound bile duct or small bowel. 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 Patent MIC, celiac. Evaluated by gastroenterology. Needs G tube. Hepatitis panel negative. Pending ceruloplasmin, BOBBY, AMA, ASMA, SSA AMB, anti-Ronquillo, RP, scleroderma, double-stranded DNA, hemochromatosis Currently on lactulose 30 cc 3 times daily for elevated ammonia. Resume tube feeds once G-tube placed by IR Check ammonia level. Endo: Sliding scale insulin with Accu-Cheks to maintain euglycemia/every 6 hours low regimen TSH 1. Cortisol 25 Glucose control acceptable Renal: Acute kidney failure Hyponatremia Hypokalemia Avoid nephrotoxic medication. Discontinued vancomycin 07/11 Convert fluid to D5 water with KCl 10 mEq/L Monitor and replete electrolytes Heme: Macrocytic anemia Thrombocytopenia Coagulopathic state Follow-up on PT/INR Platelet transfusion ordered prior to G-tube placement by IR ID: MRSA bacteremia Septic shock Right lower lobe pneumonia/aspiration 2D transthoracic echocardiogram revealed no signs of endocarditis. Infectious disease following Currently on daptomycin and Zosyn. Zyvox added for gram-positive coverage for presumed pneumonia Pleural fluid studies have no evidence of infection MSK: Left posterior olecranon fracture Followed by Dr. Blanco, splint immobilized. Follow-up in 2 weeks with x-rays F/u CT left elbow FEN: Replace electrolytes as clinically indicated Access -Utilize peripheral IV. Prophylaxis -GI -pantoprazole -DVT-SCD/hold off chemical DVT prophylaxis due to severe thrombocytopenia, prolonged INR DC plan: Pending improvement and clearance by consultants. Might be a candidate for hospice Care complicated by hepatic dysfunction, acute renal failure and sepsis. He has tolerated extubation and protects his airway at this time however still requiring high flow O2 and also with hemoptisis. Consult pulm for eval.Patient improved and no hemoptisis, conservative management. Code status: DNR status. Palliative care following. Might be a candidate for hospice Discussed with the patient, nurse Transfer to med /surg floor Progress Note: Quality VTE Deep Vein Thrombosis/Pulmonary Embolism Present on Admission: No _ (1) Liver failure Qualifiers: Hepatic coma status: Liver failure chronicity: (2) Chest pain Qualifiers: Chest pain type: Ischemic chest pain type:
--- NOTE | 2018-07-25 16:58 | P.PNPL ---
Subjective Interval history: 63 YOWM with RF, increased liver enzymes has pulm congestion o hemoptysis Tolerates TF at decreased rate Awake, follows simple commands Physical Exam Vital signs: Vital Signs 07/24/18 17:00 07/24/18 17:10 07/24/18 18:00 Temperature Pulse Rate 114 H 116 H 120 H Respiratory Rate 25 H 26 H 33 H Blood Pressure 119/58 L 119/58 L Pulse Oximetry 94 L 94 L 96 07/24/18 19:00 07/24/18 20:00 07/24/18 20:52 Temperature 98.1 F Pulse Rate 113 H 111 H Respiratory Rate 27 H 24 Blood Pressure 109/52 L 115/56 L Pulse Oximetry 95 95 95 07/24/18 21:00 07/24/18 22:00 07/24/18 23:00 Temperature Pulse Rate 109 H 106 H 106 H Respiratory Rate 23 28 H 25 H Blood Pressure 126/60 129/61 126/60 Pulse Oximetry 95 95 95 07/25/18 00:00 07/25/18 01:00 07/25/18 02:00 Temperature 97.7 F Pulse Rate 103 H 104 H 108 H Respiratory Rate 21 21 25 H Blood Pressure 122/57 L Pulse Oximetry 93 L 92 L 92 L 07/25/18 02:39 07/25/18 03:00 07/25/18 04:00 Temperature 98.1 F Pulse Rate 100 H 105 H 118 H Respiratory Rate 25 H 35 H 48 H Blood Pressure 132/62 123/58 L 169/74 H Pulse Oximetry 95 94 L 94 L 07/25/18 04:54 07/25/18 05:00 07/25/18 05:01 Temperature Pulse Rate 99 H 103 H 99 H Respiratory Rate 20 24 20 Blood Pressure 138/63 Pulse Oximetry 94 L 94 L 95 07/25/18 06:00 07/25/18 07:00 07/25/18 07:02 Temperature 98.4 F Pulse Rate 104 H 97 H 97 H Respiratory Rate 28 H 15 18 Blood Pressure 139/63 Pulse Oximetry 94 L 95 95 07/25/18 08:00 07/25/18 09:00 07/25/18 10:00 Temperature 98.4 F 98.4 F Pulse Rate 97 H 94 H 96 H Respiratory Rate 20 17 20 Blood Pressure 141/67 H 145/79 H 129/61 Pulse Oximetry 95 95 95 07/25/18 11:00 07/25/18 12:00 07/25/18 13:00 Temperature 98.4 F Pulse Rate 97 H 100 H 106 H Respiratory Rate 21 21 24 Blood Pressure 130/59 L 139/65 152/73 H Pulse Oximetry 96 95 95 07/25/18 14:00 07/25/18 14:19 07/25/18 15:00 Temperature Pulse Rate 109 H 114 H 107 H Respiratory Rate 29 H 37 H 28 H Blood Pressure 175/85 H 148/82 H Pulse Oximetry 93 L 95 94 L 07/25/18 15:47 07/25/18 16:00 Temperature Pulse Rate 108 H 107 H Respiratory Rate 80 H 76 H Blood Pressure 148/82 H 148/82 H Pulse Oximetry 94 L 94 L Intake & Output 07/24/18 07/25/18 07/25/18 18:59 06:59 18:59 Intake Total 2943 / 2943 1549 / 1549 1005 / 1005 Output Total 325 / 325 450 / 450 Balance 2618 / 2618 1099 / 1099 1005 / 1005 Weight 61.2 kg Intake: IV 2009 1005 / 1005 1005 / 1005 KCl Inj 10 MEQ In D5W Inj 1,000 2009 1005 / 1005 1005 / 1005 ML @ 125 mls/hr IV.CONT .Q8H3M [facility] Rx#:[id number] Tube Feeding 533 / 533 344 / 344 Water Bolus Amount 400 / 400 200 / 200 Output: Urine 450 / 450 Stool 0 / 0 Urine Amount (Catheter) 325 / 325 Condom 325 / 325 Other: # Incontinent Voids 2 2 Date of Last Bowel Movement 07/24/18 07/24/18 07/24/18 GENERAL: Elderly WM, mild sob SKIN: Warm and dry. HEAD: Normocephalic. EYES: No scleral icterus. No injection or drainage. NECK: Supple, trachea midline. No JVD or lymphadenopathy. CARDIOVASCULAR: Regular rate and rhythm without murmurs, gallops, or rubs. RESPIRATORY: Breath sounds equal bilaterally. No accessory muscle use. Scattered rales GASTROINTESTINAL: Abdomen soft, non-tender, nondistended. MUSCULOSKELETAL: No cyanosis, or edema. BACK: Nontender without obvious deformity. No CVA tenderness. - Urinary Catheter Management Indwelling Urethral Catheter Cath placed during this visit: yes, but has since been removed by the nurse Reason for continuing: Decision to DC catheter Insertion date: 07/12/18 Insertion time: 07:45 Removal date: 07/19/18 Removal time: 10:45 Condom Cath placed during this visit: yes Urethral indwelling: No Reason for continuing: Not indwelling catheter Insertion date: 07/19/18 Insertion time: 10:50 Assessment and Plan - Plan IMPRESSION: 1. Methicillin-resistant Staphylococcus aureus. 2. Urinary tract infection. 3. Sepsis. 4. Hemoptysis. 5. Respiratory distress status post extubation. 6. Increased liver enzymes. 7. Thrombocytopenia. 8. The patient is homeless. 9. Nicotine use. 10. Alcohol use. PLAN: Supplement 02 Oropharyngeal suction NT suction/nasal trumpet if needed Tube feeding monitor Lytes monitor Plt count Protonix 40 mg IV daily Off Abx
[2018-07-26] MEDS: Morphine Inj 4 MG/ML Vial IV.PUSH PRN ×4 (02:22→19:36)
[2018-07-26] MEDS: Oral Hygiene Kit OROPHARYNG SCH ×3 (03:47→17:43)
[2018-07-26] MEDS: Potassium Chloride Inj 10 MEQ in Dextrose 5% in Water Inj 1,000 ML IV.CONT SCH ×4 (04:32→09:27)
[2018-07-26 05:18] LABS: Alanine Aminotransferase 136 U/L (12-78); Albumin 2.3 g/dL (3.4-5.0); Alkaline Phosphatase 149 U/L (45-117); Anion Gap 10 meq/L (5-15); Aspartate Aminotransferase 143 U/L (15-37); Blood Urea Nitrogen 33 mg/dL (7-18); Calcium 8.1 mg/dL (8.5-10.1); Chloride 99 meq/L (98-107); Glomerular Filtration Rate 47 mL/min (>89); Glucose,Random 121 mg/dL (74-106); Potassium 4.7 meq/L (3.5-5.1); Sodium 132 meq/L (136-145); Total Protein 6.2 g/dL (6.4-8.2)
[2018-07-26] MEDS: Chlorhexidine 0.12% Oral Kit 15 ML UDC OROPHARYNG SCH ×2 (07:59→22:35)
[2018-07-26] MEDS: Mupirocin 2% Nasal Oint Topical Syringe EACH NARE SCH ×2 (08:00→22:35)
[2018-07-26] MEDS: Pantoprazole Inj 40 MG Vial IV.PUSH SCH (08:00)
[2018-07-26] MEDS ORDERED: Dextrose 50% in Water 50 ML Vial IV.PUSH PRN (11:15)
[2018-07-26] MEDS: Insulin NovoLOG Aspart Correctional Sugar Inj SQ SCH ×3 (12:15→22:36)
--- NOTE | 2018-07-26 12:46 | P.PNPL ---
Subjective Interval history: Patient is lying in bed in NAD. Afebrile. Physical Exam Vital signs: Vital Signs 07/25/18 13:00 07/25/18 14:00 07/25/18 14:19 Temperature Pulse Rate 106 H 109 H 114 H Respiratory Rate 24 29 H 37 H Blood Pressure 152/73 H 175/85 H Pulse Oximetry 95 93 L 95 07/25/18 15:00 07/25/18 15:47 07/25/18 16:00 Temperature Pulse Rate 107 H 108 H 107 H Respiratory Rate 28 H 80 H 76 H Blood Pressure 148/82 H 148/82 H 148/82 H Pulse Oximetry 94 L 94 L 94 L 07/25/18 17:00 07/25/18 17:48 07/25/18 18:00 Temperature Pulse Rate 106 H 116 H 119 H Respiratory Rate 118 H 107 H 115 H Blood Pressure 132/76 132/76 Pulse Oximetry 93 L 93 L 93 L 07/25/18 19:00 07/25/18 20:00 07/25/18 21:00 Temperature 97.7 F Pulse Rate 108 H 106 H 110 H Respiratory Rate 117 H 111 H 118 H Blood Pressure 139/66 139/64 Pulse Oximetry 95 93 L 94 L 07/25/18 22:00 07/25/18 23:00 07/25/18 23:51 Temperature Pulse Rate 102 H 114 H Respiratory Rate 121 H 104 H Blood Pressure 130/61 173/73 H Pulse Oximetry 92 L 92 L 96 07/26/18 00:00 07/26/18 01:00 07/26/18 02:00 Temperature 98.7 F Pulse Rate 100 H 108 H 108 H Respiratory Rate 121 H 117 H 100 H Blood Pressure 128/61 125/95 H 140/67 Pulse Oximetry 96 94 L 93 L 07/26/18 03:00 07/26/18 04:00 07/26/18 05:00 Temperature 97.9 F Pulse Rate 109 H 109 H 108 H Respiratory Rate 25 H 26 H 24 Blood Pressure 122/56 L 125/58 L 117/58 L Pulse Oximetry 90 L 97 97 07/26/18 06:00 07/26/18 07:00 07/26/18 08:00 Temperature 98.6 F Pulse Rate 108 H 108 H 105 H Respiratory Rate 25 H 20 24 Blood Pressure 122/58 L 133/60 129/61 Pulse Oximetry 95 96 95 12/22/18 09:00 07/26/18 10:00 07/26/18 11:00 Temperature Pulse Rate 104 H 110 H 103 H Respiratory Rate 16 30 H 28 H Blood Pressure 133/63 121/73 121/61 Pulse Oximetry 94 L 94 L 95 07/26/18 12:00 Temperature 98.6 F Pulse Rate 109 H Respiratory Rate 20 Blood Pressure Pulse Oximetry 94 L Intake & Output 07/25/18 07/26/18 07/26/18 18:59 06:59 18:59 Intake Total 2630 / 2630 1365 / 1365 1005 / 1005 Output Total 200 / 200 400 / 400 Balance 2430 / 2430 965 / 965 1005 / 1005 Weight 65 kg Intake: IV 2009 1005 / 1005 1005 / 1005 KCl Inj 10 MEQ In D5W Inj 1,000 2009 1005 / 1005 1005 / 1005 ML @ 125 mls/hr IV.CONT .Q8H3M [facility] Rx#:[id number] Tube Feeding 220 / 220 360 / 360 Water Bolus Amount 400 / 400 Output: Stool 0 / 0 Urine Amount (Catheter) 200 / 200 400 / 400 Condom 200 / 200 400 / 400 Other: # Incontinent Voids 3 Date of Last Bowel Movement 07/24/18 07/24/18 07/24/18 - Constitutional no acute distress - Routine HEENT Exam Head: Present: normocephalic, atraumatic Eye: Present: EOMI, PERRL, normal accommodation, conjunctivae pink ENT: Present: mucous membranes moist - Routine Neck Exam Present: supple, full ROM, trachea midline - Routine Respiratory Exam Present: CTA bilaterally - Routine Cardiovascular Exam Present: RRR, S1, S2 - Routine Abdominal Exam Present: soft, normoactive bowel sounds - Routine Extremities Exam Present: pulses intact - Routine Skin Exam Present: intact - Routine Neurological Exam Present: altered mental status - Urinary Catheter Management Indwelling Urethral Catheter Cath placed during this visit: yes, but has since been removed by the nurse Reason for continuing: Decision to DC catheter Insertion date: 07/12/18 Insertion time: 07:45 Removal date: 07/19/18 Removal time: 10:45 Condom Cath placed during this visit: yes Urethral indwelling: No Reason for continuing: Not indwelling catheter Insertion date: 07/19/18 Insertion time: 10:50 Assessment and Plan - Plan 1)Resp Insuff 2)MRSA bacteremia 3)UTI 4)s/p Hemoptysis. 5)anemia, thrombocytopenia 6)Increased LFT's/hepatic steatosis 7)NEERU 8)Nicotine, ETOH use. 9)PEG tube placement PLAN: Continue with oxygen keep sats >92% Bronchodilators BIPAP PRN for resp distress d/c IVF and diurese with Lasix 20mg IV x1 (+ fluid balance) Monitor renal function, avoid nephrotoxins Monitor CBC, coags Off abx, monitor for signs of infections ( fever, WBC) Nutrition support- on tube feeds via PEG tube Continue treatment plan
--- NOTE | 2018-07-26 16:56 | P.PNIM ---
Subjective Interval history: The patient is in bed he appears tired today. Tolerating fairly well to feedings. No fever or chills overnight slightly tachycardic. No nausea or vomiting. Did not have a bowel movement. Physical Exam Vital signs: Last Vital Signs Temp 98.6 F 07/26/18 12:00 Pulse 109 H 07/26/18 12:00 Resp 20 07/26/18 12:00 BP 121/61 07/26/18 11:00 Pulse Ox 94 L 07/26/18 12:00 Intake & Output 07/24/18 07/25/18 07/26/18 07/27/18 06:59 06:59 06:59 06:59 Intake Total 3922 / 3922 4492 / 4492 3995 / 3995 1710 / 1710 Output Total 850 / 850 775 / 775 600 / 600 Balance 3072 / 3072 3717 / 3717 3395 / 3395 1710 / 1710 Weight 59.8 kg 61.2 kg 65 kg Narrative: GENERAL: 63 yo male appearing older, chronically ill, more awake and alert, not in acute distress at this time. SKIN: Warm and dry. Lice were found, treated NECK: Supple, trachea midline. No JVD. CARDIOVASCULAR: Regular rate and rhythm without murmurs, gallops, or rubs. RESPIRATORY: Breath sounds coarse sounding. SOB. GASTROINTESTINAL: Abdomen soft, some pain at the PEG tube site. Abd slightly distended. GENITOURINARY: Condom catheter, dark yellow urine. MUSCULOSKELETAL: No cyanosis, no edema. . Urinary Catheter Management Indwelling Urethral Catheter: Cath placed during this visit: yes, but has since been removed by the nurse Insertion date: 07/12/18 Insertion time: 07:45 Removal date: 07/19/18 Removal time: 10:45 Condom: Cath placed during this visit: yes Urethral indwelling: No Insertion date: 07/19/18 Insertion time: 10:50 Results Labs CBC & Chem 7: 07/25/18 05:00 07/26/18 03:57 Assessment and Plan (1) Chest pain: Code(s): R07.9 - Chest pain, unspecified Status: Acute (2) Elevated troponin level: Code(s): R74.8 - Abnormal levels of other serum enzymes Status: Acute (3) Liver failure: Code(s): K72.90 - Hepatic failure, unspecified without coma Status: Acute (4) Hyperbilirubinemia: Code(s): E80.6 - Other disorders of bilirubin metabolism Status: Acute Plan Neuro/Psych: Acute metabolic encephalopathy, imprpving Anisocoria EtOH abuse Recent cocaine/opiate abuse -inhaled. Denies intravenous MVI/ folate. Patient states he inhaled cocaine 4-5 days prior to admission. Denies IV drug use. Discontinued acetaminophen and related products with elevated transaminases Stat CT of the head for unequal pupil, negative for acute findings Encephalopathy improved enough to allow extubation 07/18. Check ammonia level as needed due to encephalopathy. Resume lactulose following G-tube placement by IR CV: Severe sepsis Lactic acidosis Elevated troponin likely demand ischemia Right carotid artery stenosis Elevated CPK Cardiology Dr. chaudhry. No intervention planned 2D echocardiogram revealed Normal left ventricular size. Wall thickness is normal. The left ventricular systolic function is normal with an estimated ejection fraction in the range of 55-60%. Not on aspirin or heparin at this time due to thrombocytopenia Followed by vascular surgery for right carotid artery stenosis 80%. Resp: Acute hypoxemic respiratory failure Right lower lobe pneumonia with effusion Emphysematous type changes on CT neck Hyperammonemia Hypoalbuminemia Tobacco abuse Emergently intubated and placed on mechanical ventilation[facility] Incentive spirometry. Extubated 07/18 Chest tube removed 07/19, chest x-ray after with the right lung well expanded. Consult pulmunology IS/ Acapella, continue duonebs GI: Elevated transaminases Elevated total bilirubin Poss acalc jody Hypoalbuminemia Noted CT abdomen/pelvis revealed possible early cholecystitis. Pericholecystic fluid. Ultrasound revealed negative Lundy sign. Nuclear medicine scan revealed no activity in the intrahepatic ductal compound bile duct or small bowel. 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 Patent MIC, celiac. Evaluated by gastroenterology. Needs G tube. Hepatitis panel negative. Pending ceruloplasmin, BOBBY, AMA, ASMA, SSA AMB, anti-Ronquillo, RP, scleroderma, double-stranded DNA, hemochromatosis Currently on lactulose 30 cc 3 times daily for elevated ammonia. Resume tube feeds once G-tube placed by IR Check ammonia level. Endo: Sliding scale insulin with Accu-Cheks to maintain euglycemia/every 6 hours low regimen TSH 1. Cortisol 25 Glucose control acceptable Renal: Acute kidney failure Hyponatremia Hypokalemia Avoid nephrotoxic medication. Discontinued vancomycin 07/11 Convert fluid to D5 water with KCl 10 mEq/L Monitor and replete electrolytes Heme: Macrocytic anemia Thrombocytopenia Coagulopathic state Follow-up on PT/INR Platelet transfusion ordered prior to G-tube placement by IR ID: MRSA bacteremia Septic shock Right lower lobe pneumonia/aspiration 2D transthoracic echocardiogram revealed no signs of endocarditis. Infectious disease following Currently on daptomycin and Zosyn. Zyvox added for gram-positive coverage for presumed pneumonia Pleural fluid studies have no evidence of infection MSK: Left posterior olecranon fracture Followed by Dr. Blanco, splint immobilized. Follow-up in 2 weeks with x-rays F/u CT left elbow FEN: Replace electrolytes as clinically indicated Access -Utilize peripheral IV. Prophylaxis -GI -pantoprazole -DVT-SCD/hold off chemical DVT prophylaxis due to severe thrombocytopenia, prolonged INR DC plan: Pending improvement and clearance by consultants. Might be a candidate for hospice Care complicated by hepatic dysfunction, acute renal failure and sepsis. He has tolerated extubation and protects his airway at this time however still requiring high flow O2 and also with hemoptisis. Consult pulm for eval.Patient improved and no hemoptisis, conservative management. Code status: DNR status. Palliative care following. Might be a candidate for hospice Discussed with the patient, nurse Transfer to med /surg floor Progress Note: Quality VTE Deep Vein Thrombosis/Pulmonary Embolism Present on Admission: No _ (1) Chest pain Qualifiers: Chest pain type: Ischemic chest pain type: (2) Liver failure Qualifiers: Liver failure chronicity: Hepatic coma status:
[2018-07-27] MEDS: Oral Hygiene Kit OROPHARYNG SCH ×4 (00:53→17:56)
[2018-07-27] MEDS: Insulin NovoLOG Aspart Correctional Sugar Inj SQ SCH ×4 (08:14→21:59)
[2018-07-27] MEDS: Pantoprazole Inj 40 MG Vial IV.PUSH SCH (10:14)
[2018-07-27] MEDS: Chlorhexidine 0.12% Oral Kit 15 ML UDC OROPHARYNG SCH ×2 (10:14→23:09)
--- NOTE | 2018-07-27 12:26 | P.PNPL ---
Subjective Interval history: Patient is lying in bed in NAD. afebrile. Physical Exam Vital signs: Vital Signs 07/26/18 13:00 07/26/18 14:00 07/26/18 15:00 Temperature Pulse Rate 101 H 106 H 103 H Respiratory Rate 21 28 H 22 Blood Pressure Pulse Oximetry 94 L 94 L 94 L 07/26/18 15:36 07/26/18 16:00 07/26/18 16:20 Temperature 98.0 F Pulse Rate 103 H 103 H 110 H Respiratory Rate 23 23 36 H Blood Pressure 130/64 128/59 L Pulse Oximetry 79 L 93 L 07/26/18 17:03 07/26/18 19:57 07/26/18 20:00 Temperature Pulse Rate 107 H 108 H 112 H Respiratory Rate 22 20 Blood Pressure Pulse Oximetry 93 L 07/26/18 20:20 07/27/18 00:00 07/27/18 04:00 Temperature 97.8 F 98.0 F 97.9 F Pulse Rate 110 H 80 117 H Respiratory Rate 19 20 18 Blood Pressure 130/61 141/76 H 111/63 Pulse Oximetry 95 97 95 07/27/18 05:22 07/27/18 08:00 Temperature 98.2 F Pulse Rate 113 H 112 H Respiratory Rate 20 20 Blood Pressure 107/55 L Pulse Oximetry 90 L 98 Intake & Output 07/26/18 07/27/18 07/27/18 18:59 06:59 18:59 Intake Total 2260 / 2260 Output Total 0 / 0 Balance 2260 / 2260 Weight 65 kg Intake: IV 1710 / 1710 KCl Inj 10 MEQ In D5W Inj 1,000 1710 / 1710 ML @ 125 mls/hr IV.CONT .Q8H3M [facility] Rx#:[id number] Oral 0 / 0 Tube Feeding 430 / 430 Water Bolus Amount 120 / 120 Output: Stool 0 / 0 Other: # Voids 3 # Incontinent Voids 3 2 Date of Last Bowel Movement 07/24/18 07/26/18 # Bowel Movements 2 # Incontinent Bowel Movements 1 - Constitutional no acute distress - Routine HEENT Exam Head: Present: normocephalic, atraumatic Eye: Present: EOMI, PERRL, normal accommodation, conjunctivae pink ENT: Present: mucous membranes moist - Routine Neck Exam Present: supple, full ROM, trachea midline - Routine Respiratory Exam Present: CTA bilaterally - Routine Cardiovascular Exam Present: S1, S2, tachycardia - Routine Abdominal Exam Present: soft, normoactive bowel sounds - Routine Extremities Exam Present: pulses intact - Routine Skin Exam Present: intact - Urinary Catheter Management Indwelling Urethral Catheter Cath placed during this visit: yes, but has since been removed by the nurse Reason for continuing: Decision to DC catheter Insertion date: 07/12/18 Insertion time: 07:45 Removal date: 07/19/18 Removal time: 10:45 Condom Cath placed during this visit: yes Urethral indwelling: No Reason for continuing: Not indwelling catheter Insertion date: 07/19/18 Insertion time: 10:50 Assessment and Plan - Plan 1)Resp Insuff 2)MRSA bacteremia 3)UTI 4)s/p Hemoptysis. 5)anemia, thrombocytopenia 6)Increased LFT's/hepatic steatosis 7)NEERU 8)Nicotine, ETOH use. 9)PEG tube placement PLAN: Continue with oxygen keep sats >92% Bronchodilators BIPAP PRN for resp distress Monitor renal function, avoid nephrotoxins, s/p Lasix 20mg IV x1 yesterday Monitor CBC, coags Off abx, monitor for signs of infections ( fever, WBC) Nutrition support- on tube feeds ( Jevity 1.5 with goal rate 50ml/hr) via PEG tube Continue treatment plan
[2018-07-27] MEDS: Morphine Inj 4 MG/ML Vial IV.PUSH PRN ×2 (14:15→21:58)
--- NOTE | 2018-07-27 14:18 | P.PNIM ---
Subjective Interval history: He is in bed appears tired. No nausea or vomiting. Is more lethargic today. Moaning at times. No fever or chills. Physical Exam Vital signs: Last Vital Signs Temp 98 F 07/27/18 12:00 Pulse 111 H 07/27/18 12:00 Resp 20 07/27/18 12:00 BP 105/66 07/27/18 12:00 Pulse Ox 93 L 07/27/18 12:00 Intake & Output 07/25/18 07/26/18 07/27/18 07/28/18 06:59 06:59 06:59 06:59 Intake Total 4492 / 4492 3995 / 3995 2260 / 2260 Output Total 775 / 775 600 / 600 0 / 0 Balance 3717 / 3717 3395 / 3395 2260 / 2260 Weight 61.2 kg 65 kg 65 kg Narrative: GENERAL: 63 yo male appearing older, chronically ill, not in acute distress at this time. SKIN: Warm and dry. Lice were found, treated NECK: Supple, trachea midline. No JVD. CARDIOVASCULAR: Regular rate and rhythm without murmurs, gallops, or rubs. RESPIRATORY: Breath sounds coarse sounding. SOB. GASTROINTESTINAL: Abdomen soft, some pain at the PEG tube site. Abd slightly distended. GENITOURINARY: Condom catheter, dark yellow urine. MUSCULOSKELETAL: No cyanosis, no edema. . Urinary Catheter Management Indwelling Urethral Catheter: Cath placed during this visit: yes, but has since been removed by the nurse Insertion date: 07/12/18 Insertion time: 07:45 Removal date: 07/19/18 Removal time: 10:45 Condom: Cath placed during this visit: yes Urethral indwelling: No Insertion date: 07/19/18 Insertion time: 10:50 Results Labs CBC & Chem 7: 07/25/18 05:00 07/26/18 03:57 Labs: Microbiology 07/13/18 08:55 Fluid - Pleural fluid Fungal Smear - Final No fungal elements seen 07/13/18 08:55 Fluid - Pleural fluid Fungal Culture - Preliminary No growth in 2 weeks 07/13/18 08:55 Fluid - Pleural fluid Acid Fast Bacilli Smear - Final No acid fast bacilli seen 07/13/18 08:55 Fluid - Pleural fluid Mycobacterial Culture - Preliminary No growth in 2 weeks Assessment and Plan (1) Chest pain: Code(s): R07.9 - Chest pain, unspecified Status: Acute (2) Elevated troponin level: Code(s): R74.8 - Abnormal levels of other serum enzymes Status: Acute (3) Liver failure: Code(s): K72.90 - Hepatic failure, unspecified without coma Status: Acute (4) Hyperbilirubinemia: Code(s): E80.6 - Other disorders of bilirubin metabolism Status: Acute Plan Neuro/Psych: Acute metabolic encephalopathy, imprpving Anisocoria EtOH abuse Recent cocaine/opiate abuse -inhaled. Denies intravenous MVI/ folate. Patient states he inhaled cocaine 4-5 days prior to admission. Denies IV drug use. Discontinued acetaminophen and related products with elevated transaminases Stat CT of the head for unequal pupil, negative for acute findings Encephalopathy improved enough to allow extubation 07/18. Check ammonia level as needed due to encephalopathy. Resume lactulose following G-tube placement by IR CV: Severe sepsis Lactic acidosis Elevated troponin likely demand ischemia Right carotid artery stenosis Elevated CPK Cardiology Dr. chaudhry. No intervention planned 2D echocardiogram revealed Normal left ventricular size. Wall thickness is normal. The left ventricular systolic function is normal with an estimated ejection fraction in the range of 55-60%. Not on aspirin or heparin at this time due to thrombocytopenia Followed by vascular surgery for right carotid artery stenosis 80%. Resp: Acute hypoxemic respiratory failure Right lower lobe pneumonia with effusion Emphysematous type changes on CT neck Hyperammonemia Hypoalbuminemia Tobacco abuse Emergently intubated and placed on mechanical ventilation. PRVC/AC 07/13/2018 Incentive spirometry. Extubated 07/18 Chest tube removed 07/19, chest x-ray after with the right lung well expanded. Consult pulmunology IS/ Acapella, continue duonebs GI: Elevated transaminases Elevated total bilirubin Poss acalc jody Hypoalbuminemia Noted CT abdomen/pelvis revealed possible early cholecystitis. Pericholecystic fluid. Ultrasound revealed negative Lundy sign. Nuclear medicine scan revealed no activity in the intrahepatic ductal compound bile duct or small bowel. 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 Patent MIC, celiac. Evaluated by gastroenterology. Needs G tube. Hepatitis panel negative. Pending ceruloplasmin, BOBBY, AMA, ASMA, SSA AMB, anti-Ronquillo, RP, scleroderma, double-stranded DNA, hemochromatosis Currently on lactulose 30 cc 3 times daily for elevated ammonia. Resume tube feeds once G-tube placed by IR Check ammonia level. Endo: Sliding scale insulin with Accu-Cheks to maintain euglycemia/every 6 hours low regimen TSH 1. Cortisol 25 Glucose control acceptable Renal: Acute kidney failure Hyponatremia Hypokalemia Avoid nephrotoxic medication. Discontinued vancomycin 07/11 Convert fluid to D5 water with KCl 10 mEq/L Monitor and replete electrolytes Heme: Macrocytic anemia Thrombocytopenia Coagulopathic state Follow-up on PT/INR Platelet transfusion ordered prior to G-tube placement by IR ID: MRSA bacteremia Septic shock Right lower lobe pneumonia/aspiration 2D transthoracic echocardiogram revealed no signs of endocarditis. Infectious disease following Currently on daptomycin and Zosyn. Zyvox added for gram-positive coverage for presumed pneumonia Pleural fluid studies have no evidence of infection MSK: Left posterior olecranon fracture Followed by Dr. Blanco, splint immobilized. Follow-up in 2 weeks with x-rays F/u CT left elbow FEN: Replace electrolytes as clinically indicated Access -Utilize peripheral IV. Prophylaxis -GI -pantoprazole -DVT-SCD/hold off chemical DVT prophylaxis due to severe thrombocytopenia, prolonged INR DC plan: Pending improvement and clearance by consultants. Might be a candidate for hospice Care complicated by hepatic dysfunction, acute renal failure and sepsis. He has tolerated extubation and protects his airway at this time however still requiring high flow O2 and also with hemoptisis. Consult pulm for eval.Patient improved and no hemoptisis, conservative management. Code status: DNR status. Palliative care following. Might be a candidate for hospice. Discussed with the patient, nurse Progress Note: Quality VTE Deep Vein Thrombosis/Pulmonary Embolism Present on Admission: No _ (1) Liver failure Qualifiers: Hepatic coma status: Liver failure chronicity: (2) Chest pain Qualifiers: Chest pain type: Ischemic chest pain type:
[2018-07-27] MEDS: Mupirocin 2% Nasal Oint Topical Syringe EACH NARE SCH ×2 (17:00→23:08)
--- NOTE | 2018-07-28 02:05 | XR ---
EXAM DATE: 07/28/2018 2:00 AM EST AGE/SEX: 63 years / Male INDICATIONS: Shortness of breath. CLINICAL DATA: This is the patient's subsequent encounter. Patient reports that signs and symptoms h ave been present for 3 weeks and indicates a pain score of Nonresponsive. MEDICAL/SURGICAL HISTORY: None. None. COMPARISON: [facility] – [place], CHEST 1V SINGLE AP, 07/23/2018. . FINDINGS: Interval development of diffuse patchy interstitial and airspace opacities throughout the right lung and diffuse interstitial opacities in the left lung. Slight improved aeration at the left lung base. Cardiomegaly saw contours are within normal limits. Remainder of the exam is unchanged. CONCLUSION: 1. Interval development of diffuse patchy interstitial and airspace opacities throughout the right l rusty and diffuse interstitial opacities in the left lung. Differential considerations include atypical infection versus atypical pulmonary edema. Electronically signed by: Randall Morgan MD Board Certified Radiologist 07/28/2018 2:03 AM GENE Rizo
--- NOTE | 2018-07-28 02:20 | XR ---
EXAM DATE: 07/28/2018 1:57 AM EST AGE/SEX: 63 years / Male INDICATIONS: Abdominal pain. CLINICAL DATA: This is the patient's subsequent encounter. Patient reports that signs and symptoms h ave been present for 3 weeks and indicates a pain score of Nonresponsive. MEDICAL/SURGICAL HISTORY: None. . Gastric tube. COMPARISON: [facility] – [place], ABDOMEN 1V KUB, 07/24/2018. . FINDINGS: There is a gastrostomy catheter in place which appears to be grossly new region of the stomach. Yrn l gas pattern remains unchanged with air and stool noted throughout the colon with marginal distentio n of the transverse colon. No dilated loops of small bowel. No gross free air or pneumatosis. No abno rmal calcifications. Remainder of the exam is unchanged. CONCLUSION: 1. Gastrostomy catheter in place. 2. Stable bowel gas pattern with mild to moderate colonic stool and marginal distention of the trans verse colon. Differential considerations include constipation versus mild developing colonic ileus. Electronically signed by: Randall Morgan MD Board Certified Radiologist 07/28/2018 2:19 AM GENE Rizo
[2018-07-28] MEDS: Oral Hygiene Kit OROPHARYNG SCH ×4 (05:18→16:58)
[2018-07-28] MEDS: Chlorhexidine 0.12% Oral Kit 15 ML UDC OROPHARYNG SCH ×2 (08:13→23:33)
[2018-07-28] MEDS: Insulin NovoLOG Aspart Correctional Sugar Inj SQ SCH ×4 (08:13→22:25)
--- NOTE | 2018-07-28 08:40 | P.PNIM ---
Subjective Interval history: F/u encephalopathy. Remains confused. Tachypneic last night CXR with PNA vs edema, AXR with constipation vs ileus Physical Exam Vital signs: Last Vital Signs Temp 97.4 F L 07/28/18 04:00 Pulse 94 H 07/28/18 04:00 Resp 16 07/28/18 04:00 BP 113/55 L 07/28/18 04:00 Pulse Ox 99 07/28/18 04:00 Intake & Output 07/26/18 07/27/18 07/28/18 07/29/18 06:59 06:59 06:59 06:59 Intake Total 3995 / 3995 2260 / 2260 560 / 560 Output Total 600 / 600 0 / 0 Balance 3395 / 3395 2260 / 2260 560 / 560 Weight 65 kg 65 kg 67.3 kg Narrative: GENERAL: 63 yo male appearing older, chronically ill, not in acute distress at this time. SKIN: Warm and dry. + anisocoria Upper airway congestion CARDIOVASCULAR: Regular rate and rhythm without murmurs, gallops, or rubs. RESPIRATORY: Breath sounds coarse sounding. GASTROINTESTINAL: Abdomen soft, some pain at the PEG tube site. Abd slightly distended. GENITOURINARY: Condom catheter MUSCULOSKELETAL: No cyanosis, no edema. . Urinary Catheter Management Indwelling Urethral Catheter: Cath placed during this visit: yes, but has since been removed by the nurse Insertion date: 07/12/18 Insertion time: 07:45 Removal date: 07/19/18 Removal time: 10:45 Condom: Cath placed during this visit: yes Urethral indwelling: No Insertion date: 07/19/18 Insertion time: 10:50 Results Labs CBC & Chem 7: 07/28/18 12:53 07/28/18 07:57 Labs: Microbiology 07/13/18 08:55 Fluid - Pleural fluid Fungal Smear - Final No fungal elements seen 07/13/18 08:55 Fluid - Pleural fluid Fungal Culture - Preliminary No growth in 2 weeks 07/13/18 08:55 Fluid - Pleural fluid Acid Fast Bacilli Smear - Final No acid fast bacilli seen 07/13/18 08:55 Fluid - Pleural fluid Mycobacterial Culture - Preliminary No growth in 2 weeks Imaging Imaging: ITS Impressions Elbow X-Ray 07/08/18 18:01 CONCLUSION: 1. Small, mildly displaced olecranon avulsion fracture fragments of the triceps insertion with associated soft tissue swelling. 2. Joint effusion. No perceptible intra-articular fracture. No subluxation. Abdomen/Pelvis CT 07/08/18 18:02 CONCLUSION: 1. Severe fatty infiltration of the liver. 2. Apparent pericholecystic fluid. Also fairly robust enhancement of the gallbladder mucosa. Please correlate clinically for any evidence of cholecystitis. No stones or ductal dilatation demonstrated. Gallbladder Ultrasound 07/08/18 18:53 CONCLUSION: 1. Small, nonspecific pericholecystic fluid without stones, wall thickening or sonographic Lundy's sign. The fluid may be on the basis of hepatocellular disease. The ultrasound does not support acute cholecystitis. 2. Fatty infiltrated and mildly enlarged liver. Carotid Doppler Study 07/09/18 00:00 CONCLUSION: 1. Right Internal Carotid Artery: Findings indicate >70% stenosis, but less than near occlusion. 2. Left Internal Carotid Artery: Findings indicate <50% stenosis. Hepatobiliary Scan Nuclear Medicine 07/09/18 14:22 CONCLUSION: 1. No activity in intrahepatic ducts, common duct or small bowel. Considerations include include acute obstruction of the common duct and diffuse hepatocellular disease. 2. CT scan shows no dilatation of the common duct or intrahepatic ducts. Diffuse hepatocellular disease is suspected. Neck CTA 07/10/18 00:00 CONCLUSION: 1. 80% stenosis of the proximal right ICA. Left carotid and bilateral vertebral arteries are patent. 2. Emphysematous changes. Abdomen/Pelvis CTA 07/10/18 00:08 CONCLUSION: 1. 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 The SMA and MIC are patent. 2. Hepatic steatosis. 3. Emphysematous changes. Abdomen/Bladder Ultrasound 07/11/18 00:00 CONCLUSION: 1. Normal ultrasound appearance of the kidneys. 2. Other findings include hepatic steatosis and left pleural effusion. Elbow CT 07/11/18 00:00 CONCLUSION: 1. Small fracture fragment off the olecranon. 2. There is subcutaneous edema identified posterior to the elbow with soft tissue swelling. Head CT 07/13/18 00:00 CONCLUSION: 1. No acute intracranial abnormality. 2. Atrophy. . Gastrostomy Tube Placement 07/22/18 00:00 CONCLUSION: 1. Uncomplicated gastrostomy tube placement as above. Abdomen X-Ray 07/28/18 01:04 CONCLUSION: 1. Gastrostomy catheter in place. 2. Stable bowel gas pattern with mild to moderate colonic stool and marginal distention of the transverse colon. Differential considerations include constipation versus mild developing colonic ileus. Chest X-Ray 07/28/18 01:04 CONCLUSION: 1. Interval development of diffuse patchy interstitial and airspace opacities throughout the right lung and diffuse interstitial opacities in the left lung. Differential considerations include atypical infection versus atypical pulmonary edema. Procedures Procedures: PEG Assessment and Plan (1) Chest pain: Code(s): R07.9 - Chest pain, unspecified Status: Acute (2) Elevated troponin level: Code(s): R74.8 - Abnormal levels of other serum enzymes Status: Acute (3) Liver failure: Code(s): K72.90 - Hepatic failure, unspecified without coma Status: Acute (4) Hyperbilirubinemia: Code(s): E80.6 - Other disorders of bilirubin metabolism Status: Acute Plan Acute metabolic encephalopathy, improving Anisocoria EtOH abuse Recent cocaine/opiate abuse -inhaled. Denies intravenous MVI/ folate. Patient states he inhaled cocaine 4-5 days prior to admission. Denies IV drug use. Discontinued acetaminophen and related products with elevated transaminases Stat CT of the head for unequal pupil, negative for acute findings Encephalopathy improved enough to allow extubation 07/18. Check ammonia level as needed due to encephalopathy. Resume lactulose following G-tube placement by IR CV: Severe sepsis Lactic acidosis Elevated troponin likely demand ischemia Right carotid artery stenosis Elevated CPK Cardiology Dr. chaudhry. No intervention planned 2D echocardiogram revealed Normal left ventricular size. Wall thickness is normal. The left ventricular systolic function is normal with an estimated ejection fraction in the range of 55-60%. Not on aspirin or heparin at this time due to thrombocytopenia Followed by vascular surgery for right carotid artery stenosis 80%. Resp: Acute hypoxemic respiratory failure Rpt CXR with PNA vs edema Emphysematous type changes on CT neck Hyperammonemia Hypoalbuminemia Tobacco abuse Emergently intubated and placed on mechanical ventilation. PRVC/AC 07/13/2018 Incentive spirometry. Extubated 07/18 Chest tube removed 07/19, chest x-ray after with the right lung well expanded. Consulted pulmonology IS/ Acapella, continue duonebs pulmonary drainage Check CBC, procalcitonin and BNP GI: Elevated transaminases Elevated total bilirubin Poss acalc jody shock liver Hypoalbuminemia Cirrhosis suspect Ileus vs constipation Noted CT abdomen/pelvis revealed possible early cholecystitis. Pericholecystic fluid. Ultrasound revealed negative Lundy sign. Nuclear medicine scan revealed no activity in the intrahepatic ductal compound bile duct or small bowel. 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 Patent MIC, celiac. Evaluated by gastroenterology. Hepatitis panel negative. Negative w/u - ceruloplasmin, BOBBY, AMA, ASMA, SSA AMB, anti-Ronquillo, RP, scleroderma, double-stranded DNA, hemochromatosis Currently on lactulose 30 cc 3 times daily for elevated ammonia. Increase to 45 ml Resume tube feeds once G-tube placed by IR Check ammonia level. Endo: Sliding scale insulin with Accu-Cheks to maintain euglycemia/every 6 hours low regimen TSH 1. Cortisol 25 Glucose control acceptable Renal: Acute kidney failure Hypernatremia. Resolved Hypokalemia Avoid nephrotoxic medication. Discontinued vancomycin 07/11 Convert fluid to D5 water with KCl 10 mEq/L Monitor and replete electrolytes Heme: Macrocytic anemia Thrombocytopenia Coagulopathic state Follow-up on PT/INR Platelet transfusion ordered prior to G-tube placement by IR ID: MRSA bacteremia Septic shock Right lower lobe pneumonia/aspiration 2D transthoracic echocardiogram revealed no signs of endocarditis. Infectious disease following S/p daptomycin , Zosyn and Zyvox Pleural fluid studies have no evidence of infection MSK: Left posterior olecranon fracture Followed by Dr. Blanco, splint immobilized. FEN: Replace electrolytes as clinically indicated Access -Utilize peripheral IV. Prophylaxis -GI -pantoprazole -DVT-SCD/hold off chemical DVT prophylaxis due to severe thrombocytopenia, prolonged INR DC plan: Pending improvement and clearance by consultants. Might be a candidate for hospice discussed with sisters will consult hospice Code status: DNR status. Palliative care following. Progress Note: Quality VTE Deep Vein Thrombosis/Pulmonary Embolism Present on Admission: No _ (1) Liver failure Qualifiers: Hepatic coma status: Liver failure chronicity: (2) Chest pain Qualifiers: Chest pain type: Ischemic chest pain type:
[2018-07-28] MEDS: Mupirocin 2% Nasal Oint Topical Syringe EACH NARE SCH ×2 (10:36→23:33)
[2018-07-28 10:42] LABS: Alanine Aminotransferase 112 U/L (12-78); Albumin 2.1 g/dL (3.4-5.0); Alkaline Phosphatase 191 U/L (45-117); Anion Gap 10 meq/L (5-15); Aspartate Aminotransferase 136 U/L (15-37); Blood Urea Nitrogen 53 mg/dL (7-18); Calcium 8.7 mg/dL (8.5-10.1); Chloride 102 meq/L (98-107); Glomerular Filtration Rate 43 mL/min (>89); Glucose,Random 102 mg/dL (74-106); Potassium 4.8 meq/L (3.5-5.1); Sodium 136 meq/L (136-145); Total Protein 6.1 g/dL (6.4-8.2)
--- NOTE | 2018-07-28 11:58 | P.PNCA ---
Subjective Interval history: Patient denies any CP, pressure, palpitations, dizziness, edema or SOB. Patient wants to go home. Medications and Allergies Allergies Allergy/AdvReac Type Severity Reaction Status Date / Time No Known Allergies Allergy Verified 07/08/18 12:30 Home Medications Medication Instructions Recorded Confirmed Type No Known Home Medications 07/08/18 07/08/18 History Active Medications: Active Medications Albuterol (Albuterol Neb (Prn)) 2.5 mg NEB Q2HR NEB PRN PRN Reason: DYSPNEA Albuterol (Duoneb Neb (Prn)) 1 ampul NEB Q2HR NEB PRN PRN Reason: SHORTNESS OF BREATH Last Admin: 07/14/18 08:20 Dose: 1 ampul Albuterol (Duoneb Neb (Lynda)) 1 ampul NEB Q6HR NEB LYNDA Last Admin: 07/28/18 09:22 Dose: 1 ampul Chlordiazepoxide (Librium) 10 mg G-TUBE Q8H PRN PRN Reason: anxiety/withdrawal Chlorhexidine Gluconate (Peridex 0.12% Oral Kit) 15 ml OROPHARYNG BID@0800, 2000 [facility] Last Admin: 07/28/18 08:13 Dose: Not Given Dextrose (D50w Vial) 50 ml IV.PUSH UNSCH PRN PRN Reason: PER HYPOGLYCEMIA PROTOCOL Flumazenil (Romazecon Inj) 0.2 mg IV.PUSH Q1M PRN PRN Reason: OVERSEDATION Glucagon (Glucagon Inj) 1 mg OTHER PRN PRN PRN Reason: for Hypoglycemia Protocol Haloperidol Lactate (Haldol Inj) 1 mg IV.PUSH Q15M PRN PRN Reason: for severe agitation Last Admin: 07/21/18 21:43 Dose: 1 mg Hydralazine HCl (Apresoline Inj) 20 mg IV.PUSH Q4H PRN PRN Reason: Sys Bp Greater Than 165 Mmhg Last Admin: 07/24/18 12:20 Dose: 20 mg Insulin Aspart (Novolog Insulin Correctional Sugar Inj) 0 unit SQ ACHS [facility]; Protocol Last Admin: 07/28/18 08:13 Dose: Not Given Lactulose (Lactulose Liq) 30 ml G-TUBE DAILY PRN PRN Reason: SEVERE CONSITIPATION Lactulose (Lactulose Liq) 45 ml G-TUBE TID [facility] Metoclopramide HCl (Reglan) 10 mg G-TUBE ACHS [facility] Metoprolol Tartrate (Lopressor Inj) 2.5 mg IV.PUSH Q6H PRN PRN Reason: BLOOD PRESSURE MANAGEMENT Miscellaneous Medication () 1 each OROPHARYNG 0000,0400,1200,1600 [facility] Last Admin: 07/28/18 05:19 Dose: Not Given Morphine Sulfate (Morphine Inj) 2 mg IV.PUSH Q4H PRN PRN Reason: BREAKTHROUGH PAIN Last Admin: 07/27/18 21:58 Dose: 2 mg Mupirocin (Bactroban 2% Nasal Oint) 1 applicatio EACH NARE BID [facility] Last Admin: 07/28/18 10:36 Dose: 1 applicatio Naloxone HCl (Narcan Inj) 0.4 mg IV.PUSH UNSCH PRN PRN Reason: SEE LABEL COMMENTS Ondansetron HCl (Zofran Inj) 4 mg IV.PUSH Q6H PRN PRN Reason: n/v/ if unable PO Ondansetron HCl (Zofran Odt) 4 mg SL Q4H PRN PRN Reason: nausea/vomiting Sennosides (Senokot) 17.2 mg G-TUBE Q12H PRN PRN Reason: Moderate Constipation Sodium Chloride (Ns Flush) 2 ml IV.FLUSH PRN PRN PRN Reason: FLUSH AFTER USING IV ACCESS Last Admin: 07/20/18 20:10 Dose: 2 ml Sodium Chloride (Ns Flush) 2 ml IV.FLUSH BID [facility] Last Admin: 07/28/18 10:37 Dose: 2 ml Sterile Water (Free Water) 200 ml G-TUBE Q8H [facility] Last Admin: 07/26/18 11:35 Dose: Not Given Physical Exam Vital signs: Vital Signs 07/27/18 12:00 07/27/18 16:00 07/27/18 20:00 Temperature 98 F 98.2 F 98.3 F Pulse Rate 111 H 50 L 106 H Respiratory Rate 20 18 20 Blood Pressure 105/66 119/65 133/60 Pulse Oximetry 93 L 93 L 96 07/28/18 00:00 07/28/18 04:00 07/28/18 07:35 Temperature 97.6 F 97.4 F L 97.4 F L Pulse Rate 108 H 94 H 97 H Respiratory Rate 20 20 20 Blood Pressure 122/67 113/55 L 132/77 Pulse Oximetry 95 99 94 L 12/24/18 09:23 07/28/18 09:30 Temperature Pulse Rate 98 H Respiratory Rate 18 Blood Pressure Pulse Oximetry 92 L Intake & Output 07/27/18 07/28/18 07/28/18 18:59 06:59 18:59 Intake Total 560 / 560 Balance 560 / 560 Weight 67.3 kg Intake: Tube Feeding 440 / 440 Water Bolus Amount 120 / 120 Other: # Incontinent Voids 2 Date of Last Bowel Movement 07/26/18 - Constitutional no acute distress - Routine HEENT Exam Head: Present: normocephalic ENT: Present: mucous membranes moist Comments: chronic left dilated pupil - Routine Neck Exam Present: full ROM - Routine Respiratory Exam Present: rhonchi Comments: rhonchi throughout - Routine Cardiovascular Exam Present: S1, S2. Absent: murmur, gallop, rubs - Routine Abdominal Exam Present: normoactive bowel sounds - Routine Extremities Exam Present: full ROM, pulses intact, normal capillary refill. Absent: cyanosis, clubbing, edema - Routine Skin Exam Present: intact - Routine Neurological Exam Present: altered mental status, moving all extremities - Detailed Neurological Exam: Coma Scale Eye Opening: Spontaneous Verbal Response: Confused Motor Response: Obey commands [place] Coma Scale Total: 14 - Routine Psychiatric Exam Present: unable to assess - Urinary Catheter Management Indwelling Urethral Catheter Cath placed during this visit: yes, but has since been removed by the nurse Reason for continuing: Decision to DC catheter Insertion date: 07/12/18 Insertion time: 07:45 Removal date: 07/19/18 Removal time: 10:45 Condom Cath placed during this visit: yes Urethral indwelling: No Reason for continuing: Not indwelling catheter Insertion date: 07/19/18 Insertion time: 10:50 Results 07/25/18 05:00 07/28/18 07:57 Cardiac Enzymes 07/28/18 Range/Units 07:57 AST 136 H (15-37) U/L Comprehensive Metabolic Panel 07/28/18 Range/Units 07:57 Sodium 136 (136-145) meq/L Potassium 4.8 (3.5-5.1) meq/L Chloride 102 (98-107) meq/L Carbon Dioxide 24.0 (21.0-32.0) meq/L BUN 53 H (7-18) mg/dL Creatinine 1.63 H (0.60-1.30) mg/dL Calcium 8.7 (8.5-10.1) mg/dL AST 136 H (15-37) U/L ALT 112 H (12-78) U/L Alkaline Phosphatase 191 H (45-117) U/L Total Protein 6.1 L (6.4-8.2) g/dL Albumin 2.1 L (3.4-5.0) g/dL Intake and Output 07/27/18 07/28/18 07/28/18 22:59 06:59 14:59 Intake Total 560 / 560 Balance 560 / 560 Intake: Tube Feeding 440 / 440 Water Bolus Amount 120 / 120 Other: # Incontinent Voids 2 Weight 67.3 kg - Imaging and Cardiology Imaging: Impressions Abdomen X-Ray 07/28/18 01:04 CONCLUSION: 1. Gastrostomy catheter in place. 2. Stable bowel gas pattern with mild to moderate colonic stool and marginal distention of the transverse colon. Differential considerations include constipation versus mild developing colonic ileus. Chest X-Ray 07/28/18 01:04 CONCLUSION: 1. Interval development of diffuse patchy interstitial and airspace opacities throughout the right lung and diffuse interstitial opacities in the left lung. Differential considerations include atypical infection versus atypical pulmonary edema. Assessment and Plan - Assessment (1) Chest pain Code(s): R07.9 - Chest pain, unspecified Status: Acute (2) Elevated troponin level Code(s): R74.8 - Abnormal levels of other serum enzymes Status: Acute (3) Liver failure Code(s): K72.90 - Hepatic failure, unspecified without coma Status: Acute (4) Hyperbilirubinemia Code(s): E80.6 - Other disorders of bilirubin metabolism Status: Acute - Plan Patient continues to have AMS, neurology evaluation in progress. No new cardiac issues at this time, we will continue current treatment plan including [facility] care. We will continue to monitor patient during hospitalization. Recommend hospice evaluation. The patient was seen and evaluated by Dr. Gonzalez who participated in care, management and decision making. - Attending Attestation Patient seen and examined. I reviewed and agree with the evaluation and plan as presented. Continue current program. Recommend hospice evaluation.
--- NOTE | 2018-07-28 12:11 | P.DIET ---
Nutritional Evaluation Type of nutrition evaluation: follow-up Nutrition consult regarding: Tube Feeding Objective - Diagnosis CP with near syncope, r/o ACS, elevated liver enzymes - Objective % IBW: 91 (IBW = 148%) Body Weight Used for Calculations: Actual (admit wt 61.2 kg) Energy Needs - Lower Range (kCal/kg): 28 Energy Needs - Upper Range (kCal/kg): 32 Lower Limit kCal/kg (kCals): 1,714 Upper Limit kCal/kg (kCals): 1,958 Lower Limit Protein Factor (Grams per Kg): 1.0 Upper Limit Protein Factor (Grams per Kg): 1.5 Lower Protein Needs (Protein): 61 Upper Protein Needs (Protein): 92 Dietitian Reviewed in Medical Record: Curent medications, Intake & Output, Labs , Medical history, Tube feeding Diet Order: NPO Objective Comments: Labs: BUN 53, Cr 1.63, estGFR 43, POC glucose 110 170 128 LBM 07/26 Assessment Assessment: Pt currently awake and confused. Pts PEG tube placement still pending on IR, TF on hold. RD continue to recommend Jevity 1.5 @ 50 mls/hr to provide 1800 kcals, 77 gms protein and 912 mls of free water when pt resumes TF'ing. ST notes reviewed, pt is to remain NPO. Monitor TF tolerance when pt on TF. Wt noted, CBW = 67.3kg. Labs reviewed, dietitian following. Recommendations: Jevity 1.5 @ 50 mls/hr goal when pt resumes TF Dietitian to Monitor: Lab values, Renal labs, Intake & Output, Tube feeding tolerance, Weight change, Medical course
[2018-07-28] MEDS: Metoclopramide 10 MG Tablet G-TUBE SCH ×3 (12:49→23:34)
--- NOTE | 2018-07-28 12:53 | P.PN ---
Subjective Interval history: CONFUSED MILD TACHYPNEA NAD Physical Exam Vital signs: Vital Signs 07/27/18 16:00 07/27/18 20:00 07/28/18 00:00 Temperature 98.2 F 98.3 F 97.6 F Pulse Rate 50 L 106 H 108 H Respiratory Rate 18 20 20 Blood Pressure 119/65 133/60 122/67 Pulse Oximetry 93 L 96 95 07/28/18 04:00 07/28/18 07:35 07/28/18 09:23 Temperature 97.4 F L 97.4 F L Pulse Rate 94 H 97 H 98 H Respiratory Rate 20 20 18 Blood Pressure 113/55 L 132/77 Pulse Oximetry 99 94 L 07/28/18 09:30 Temperature Pulse Rate Respiratory Rate Blood Pressure Pulse Oximetry 92 L Intake & Output 07/27/18 07/28/18 07/28/18 18:59 06:59 18:59 Intake Total 560 / 560 Balance 560 / 560 Weight 67.3 kg Intake: Tube Feeding 440 / 440 Water Bolus Amount 120 / 120 Other: # Incontinent Voids 2 Date of Last Bowel Movement 07/26/18 Narrative: GENERAL: 63 yo male appearing older, chronically ill, not in acute distress at this time. SKIN: Warm and dry. + anisocoria Upper airway congestion CARDIOVASCULAR: Regular rate and rhythm without murmurs, gallops, or rubs. RESPIRATORY: Breath sounds coarse sounding. GASTROINTESTINAL: Abdomen soft, some pain at the PEG tube site. Abd slightly distended. GENITOURINARY: Condom catheter MUSCULOSKELETAL: No cyanosis, no edema. . - Urinary Catheter Management Indwelling Urethral Catheter Cath placed during this visit: yes, but has since been removed by the nurse Reason for continuing: Decision to DC catheter Insertion date: 07/12/18 Insertion time: 07:45 Removal date: 07/19/18 Removal time: 10:45 Condom Cath placed during this visit: yes Urethral indwelling: No Reason for continuing: Not indwelling catheter Insertion date: 07/19/18 Insertion time: 10:50 Results - Labs CBC & Chem 7: 07/25/18 05:00 07/28/18 07:57 Laboratory Results - last 24 hr 07/27/18 07/27/18 07/27/18 13:16 17:29 21:46 Sodium Potassium Chloride Carbon Dioxide Anion Gap BUN Creatinine Estimated GFR POC Glucose 150 H 175 H 170 H Random Glucose Calcium Total Bilirubin AST ALT Alkaline Phosphatase Total Protein Albumin 07/28/18 07/28/18 07/28/18 07:57 08:12 12:16 Sodium 136 Potassium 4.8 Chloride 102 Carbon Dioxide 24.0 Anion Gap 10 BUN 53 H Creatinine 1.63 H Estimated GFR 43 L POC Glucose 128 H 108 Random Glucose 102 Calcium 8.7 Total Bilirubin 20.8 H AST 136 H ALT 112 H Alkaline Phosphatase 191 H Total Protein 6.1 L Albumin 2.1 L Microbiology 07/13/18 08:55 Fluid - Pleural fluid Fungal Smear - Final No fungal elements seen 07/13/18 08:55 Fluid - Pleural fluid Fungal Culture - Preliminary No growth in 2 weeks 07/13/18 08:55 Fluid - Pleural fluid Acid Fast Bacilli Smear - Final No acid fast bacilli seen 07/13/18 08:55 Fluid - Pleural fluid Mycobacterial Culture - Preliminary No growth in 2 weeks - Imaging Impressions Abdomen X-Ray 07/28/18 01:04 CONCLUSION: 1. Gastrostomy catheter in place. 2. Stable bowel gas pattern with mild to moderate colonic stool and marginal distention of the transverse colon. Differential considerations include constipation versus mild developing colonic ileus. Chest X-Ray 07/28/18 01:04 CONCLUSION: 1. Interval development of diffuse patchy interstitial and airspace opacities throughout the right lung and diffuse interstitial opacities in the left lung. Differential considerations include atypical infection versus atypical pulmonary edema. - Procedures PEG Assessment and Plan - Plan RESPIRATORY FAILURE HEPATIC ENCEPHALOPATHY SEPSIS PLAN O ASNEEDED ANTIBX PER ID' PULM TOILETD
[2018-07-28 13:48] LABS: Baso # (Auto) 0.1 th/mm3 (0.0-0.2); Baso % (Auto) 0.5 % (0.0-2.0); Eos % (Auto) 0.1 % (0.0-4.0); Hematocrit 25.7 % (39.0-51.0); Lymph # (Auto) 0.9 th/mm3 (1.0-4.8); Lymph % (Auto) 7.6 % (9.0-44.0); Mean Corpuscular HGB Conc 34.9 % (32.0-36.0); Mean Corpuscular Hemoglobin 35.3 pg (27.0-34.0); Mean Corpuscular Volume 100.9 fL (80.0-100.0); Mean Platelet Volume 11.8 fL (7.0-11.0); Mono # (Auto) 1.6 th/mm3 (0.0-0.9); Mono % (Auto) 12.8 % (0.0-8.0); Neut # (Auto) 9.9 th/mm3 (1.8-7.7); Platelet Count 97 th/mm3 (150-450); Red Blood Count 2.55 mil/mm3 (4.50-5.90); Red Cell Distribution Width 18.9 % (11.6-17.2); White Blood Count 12.5 th/mm3 (4.0-11.0)
[2018-07-28 14:34] LABS: Lymphocytes 7 % (9-44); Monocytes 11 % (0-8); Platelet Morphology Normal (Normal); Target Cells 2+
[2018-07-28] MEDS ORDERED: Vancomycin Consult Pharmacy OTHER ONE (14:38)
[2018-07-28] MEDS ORDERED: Vancomycin Inj 1,000 MG in Sodium Chlor 0.9% Inj 250 ML IV.SIG ONE (15:00)
[2018-07-28] MEDS ORDERED: Vancomycin Consult Pharmacy OTHER PRN (15:42)
[2018-07-28] MEDS: Morphine Inj 4 MG/ML Vial IV.PUSH PRN (17:54)
[2018-07-28] MEDS: Piperacil/Tazo 4.5 GM Premix 4.5 GM/100 ML BAG IV.SIG SCH ×2 (17:54→21:55)
[2018-07-29] MEDS: Morphine Inj 4 MG/ML Vial IV.PUSH PRN ×3 (00:35→16:21)
[2018-07-29] MEDS: Oral Hygiene Kit OROPHARYNG SCH ×4 (00:43→15:56)
[2018-07-29] MEDS: Piperacil/Tazo 4.5 GM Premix 4.5 GM/100 ML BAG IV.SIG SCH ×4 (04:46→22:04)
[2018-07-29] MEDS: Insulin NovoLOG Aspart Correctional Sugar Inj SQ SCH ×4 (08:21→22:27)
[2018-07-29] MEDS: Chlorhexidine 0.12% Oral Kit 15 ML UDC OROPHARYNG SCH ×2 (10:00→21:27)
[2018-07-29] MEDS: Metoclopramide 10 MG Tablet G-TUBE SCH ×4 (10:00→22:04)
[2018-07-29] MEDS: Mupirocin 2% Nasal Oint Topical Syringe EACH NARE SCH ×2 (10:00→22:01)
--- NOTE | 2018-07-29 11:53 | P.PNGI ---
Subjective Interval history: This is a reconsult for worsening LFTs. Pt is lying in bed, confused, leakage noted around PEG tube. Per nurse, pt had good BM last night. No nausea or vomiting, no bleeding reported. Abdomen X-Ray 07/28/18 1. Gastrostomy catheter in place. 2. Stable bowel gas pattern with mild to moderate colonic stool and marginal distention of the transverse colon. Differential considerations include constipation versus mild developing colonic ileus. <PerlitaHenry becker - Last Filed: 07/31/18 16:10> Physical Exam Vital signs: Vital Signs 07/28/18 20:00 07/28/18 21:23 07/28/18 23:45 Temperature 97.7 F 97.8 F Pulse Rate 110 H 110 H 102 H Respiratory Rate 20 20 18 Blood Pressure 155/68 H 104/57 L Pulse Oximetry 95 95 07/29/18 04:00 07/29/18 04:17 07/29/18 08:00 Temperature 97.9 F 98 F Pulse Rate 98 H 102 H 100 H Respiratory Rate 20 22 18 Blood Pressure 122/56 L 108/56 L Pulse Oximetry 95 94 L 07/29/18 09:00 07/29/18 10:27 07/29/18 11:38 Temperature 97.3 F L Pulse Rate 101 H 92 H Respiratory Rate 14 20 Blood Pressure 103/58 L Pulse Oximetry 96 95 07/29/18 16:36 Temperature 97.4 F L Pulse Rate 99 H Respiratory Rate 18 Blood Pressure 102/54 L Pulse Oximetry 94 L Intake & Output 07/28/18 07/29/18 07/29/18 18:59 06:59 18:59 Intake Total 350 / 350 200 / 200 461.5 / 461.5 Output Total 125 / 125 Balance 350 / 350 75 / 75 461.5 / 461.5 Weight 59.9 kg Intake: IV 350 / 350 200 / 200 461.5 / 461.5 Zosyn 4.5 GM Premix 4.5 gm In 100 / 100 200 / 200 200 / 200 100 ml @ 200 mls/hr IV.SIG Q6H [facility] Rx#:[id number] Vancomycin Inj 1,000 MG In NS 250 / 250 Inj 250 ML @ 250 mls/hr IV.SIG ONCE ONE Rx#:[id number] Vancomycin Inj 1,150 MG In NS 261.5 / 261.5 Inj 250 ML @ 250 mls/hr IV.SIG Q24H [place] Rx#:[id number] Output: Urine 125 / 125 Other: # Voids 3 3 # Incontinent Voids 2 Date of Last Bowel Movement 06/26/18 07/26/18 06/29/18 # Bowel Movements 1 - Urinary Catheter Management Indwelling Urethral Catheter Cath placed during this visit: no Condom Cath placed during this visit: no <Donta Sanchez A - Last Filed: 07/29/18 18:48> Vital signs: Vital Signs 07/28/18 12:00 07/28/18 15:33 07/28/18 16:00 Temperature 98.2 F 98.1 F Pulse Rate 88 89 112 H Respiratory Rate 20 20 20 Blood Pressure 126/64 92/65 L Pulse Oximetry 98 96 07/28/18 20:00 07/28/18 21:23 07/28/18 23:45 Temperature 97.7 F 97.8 F Pulse Rate 110 H 110 H 102 H Respiratory Rate 20 20 18 Blood Pressure 155/68 H 104/57 L Pulse Oximetry 95 95 07/29/18 04:00 07/29/18 04:17 07/29/18 08:00 Temperature 97.9 F 98 F Pulse Rate 98 H 102 H 100 H Respiratory Rate 20 22 18 Blood Pressure 122/56 L 108/56 L Pulse Oximetry 95 94 L 07/29/18 09:00 07/29/18 10:27 Temperature Pulse Rate 101 H Respiratory Rate 14 Blood Pressure Pulse Oximetry 96 Intake & Output 07/28/18 07/29/18 07/29/18 18:59 06:59 18:59 Intake Total 350 / 350 200 / 200 Output Total 125 / 125 Balance 350 / 350 75 / 75 Weight 59.9 kg Intake: IV 350 / 350 200 / 200 Zosyn 4.5 GM Premix 4.5 gm In 100 / 100 200 / 200 100 ml @ 200 mls/hr IV.SIG Q6H [place] Rx#:[id number] Vancomycin Inj 1,000 MG In NS 250 / 250 Inj 250 ML @ 250 mls/hr IV.SIG ONCE ONE Rx#:[id number] Output: Urine 125 / 125 Other: # Voids 3 # Incontinent Voids 2 Date of Last Bowel Movement 06/26/18 07/26/1818 # Bowel Movements 1 Narrative: GENERAL: 63 yo male appearing older, chronically ill, not in acute distress at this time. SKIN: Warm and dry. Jaundiced Respiratory: Upper airway congestion CARDIOVASCULAR: Regular rate and rhythm without murmurs, gallops, or rubs. RESPIRATORY: Breath sounds coarse sounding. GASTROINTESTINAL: Abdomen soft, Leakage at the PEG tube site. Abd slightly distended. MUSCULOSKELETAL: No cyanosis, no edema. Neuro: alert, confused - Urinary Catheter Management Indwelling Urethral Catheter Cath placed during this visit: yes, but has since been removed by the nurse Reason for continuing: Decision to DC catheter Insertion date: 07/12/18 Insertion time: 07:45 Removal date: 07/19/18 Removal time: 10:45 Condom Cath placed during this visit: yes Urethral indwelling: No Reason for continuing: Not indwelling catheter Insertion date: 07/19/18 Insertion time: 10:50 <Henry Resendez - Last Filed: 07/31/18 16:10> Results - Labs CBC & Chem 7: 07/28/18 12:53 07/28/18 07:57 Laboratory Results - last 24 hr 07/28/18 07/29/18 07/29/18 22:10 00:40 08:01 POC Glucose 101 131 H 137 H Ammonia 07/29/18 07/29/18 07/29/18 13:29 14:28 16:45 POC Glucose 130 H 144 H Ammonia 30 Microbiology 07/28/18 13:52 Blood - Peripheral Aerobic Blood Culture - Preliminary No growth in 1 day 07/28/18 13:52 Blood - Peripheral Anaerobic Blood Culture - Preliminary No growth in 1 day 07/28/18 13:57 Blood - Peripheral Aerobic Blood Culture - Preliminary No growth in 1 day 07/28/18 13:57 Blood - Peripheral Anaerobic Blood Culture - Preliminary No growth in 1 day - Imaging Impressions Liver Ultrasound 07/29/18 00:00 CONCLUSION: 1. Mild gallbladder wall thickening. If there is clinical concern for cholecystitis, a hepatobiliary scan may be helpful to confirm cystic duct obstruction. 2. Enlarged fatty liver. 3. Some ascites along the edge of the liver and spleen. 4. Echogenic right kidney suggesting possible medical renal disease. 5. Poor visualization of the pancreas due to shadowing bowel gas. <Daniel,Mohammad A - Last Filed: 07/29/18 18:48> - Labs CBC & Chem 7: 07/31/18 06:27 07/31/18 06:27 Laboratory Results - last 24 hr 07/28/18 07/28/18 07/28/18 12:16 12:53 12:53 WBC 12.5 H RBC 2.55 L Hgb 9.0 L Hct 25.7 L MCV 100.9 H MCH 35.3 H MCHC 34.9 RDW 18.9 H Plt Count 97 L D MPV 11.8 H Prelim Diff (Auto) Slide review pending Neut % (Auto) 79.0 H Lymph % (Auto) 7.6 L Teller % (Auto) 12.8 H Eos % (Auto) 0.1 Baso % (Auto) 0.5 Neut # (Auto) 9.9 H Lymph # (Auto) 0.9 L Teller # (Auto) 1.6 H Eos # (Auto) 0.0 Baso # (Auto) 0.1 WBC Differential Manual diff final Seg Neuts % (Manual) 65 Band Neuts % (Manual) 17 H Lymphocytes % (Manual) 7 L Monocytes % (Manual) 11 H Abs Neuts (Manual) 10.3 H Differential Comment . Platelet Estimate Low L Platelet Morphology Normal Target Cells 2+ H POC Glucose 108 B-Natriuretic Peptide Procalcitonin 2.30 H 07/28/18 07/28/18 07/28/18 12:53 17:15 22:10 WBC RBC Hgb Hct MCV MCH MCHC RDW Plt Count MPV Prelim Diff (Auto) Neut % (Auto) Lymph % (Auto) Teller % (Auto) Eos % (Auto) Baso % (Auto) Neut # (Auto) Lymph # (Auto) Teller # (Auto) Eos # (Auto) Baso # (Auto) WBC Differential Seg Neuts % (Manual) Band Neuts % (Manual) Lymphocytes % (Manual) Monocytes % (Manual) Abs Neuts (Manual) Differential Comment Platelet Estimate Platelet Morphology Target Cells POC Glucose 98 101 B-Natriuretic Peptide 1739 H Procalcitonin 07/29/18 07/29/18 00:40 08:01 WBC RBC Hgb Hct MCV MCH MCHC RDW Plt Count MPV Prelim Diff (Auto) Neut % (Auto) Lymph % (Auto) Teller % (Auto) Eos % (Auto) Baso % (Auto) Neut # (Auto) Lymph # (Auto) Teller # (Auto) Eos # (Auto) Baso # (Auto) WBC Differential Seg Neuts % (Manual) Band Neuts % (Manual) Lymphocytes % (Manual) Monocytes % (Manual) Abs Neuts (Manual) Differential Comment Platelet Estimate Platelet Morphology Target Cells POC Glucose 131 H 137 H B-Natriuretic Peptide Procalcitonin Microbiology 07/28/18 13:52 Blood - Peripheral Aerobic Blood Culture - Preliminary No growth in 1 day 07/28/18 13:52 Blood - Peripheral Anaerobic Blood Culture - Preliminary No growth in 1 day 07/28/18 13:57 Blood - Peripheral Aerobic Blood Culture - Preliminary No growth in 1 day 07/28/18 13:57 Blood - Peripheral Anaerobic Blood Culture - Preliminary No growth in 1 day - Imaging Head CT 07/08/18 17:06 CONCLUSION: 1. No acute intracranial abnormality. 2. Mild Atrophy. . Chest X-Ray 07/08/18 17:42 CONCLUSION: No evidence of acute cardiopulmonary disease. Elbow X-Ray 07/08/18 18:01 CONCLUSION: 1. Small, mildly displaced olecranon avulsion fracture fragments of the triceps insertion with associated soft tissue swelling. 2. Joint effusion. No perceptible intra-articular fracture. No subluxation. Abdomen/Pelvis CT 07/08/18 18:02 CONCLUSION: 1. Severe fatty infiltration of the liver. 2. Apparent pericholecystic fluid. Also fairly robust enhancement of the gallbladder mucosa. Please correlate clinically for any evidence of cholecystitis. No stones or ductal dilatation demonstrated. Gallbladder Ultrasound 07/08/18 18:53 CONCLUSION: 1. Small, nonspecific pericholecystic fluid without stones, wall thickening or sonographic Lundy's sign. The fluid may be on the basis of hepatocellular disease. The ultrasound does not support acute cholecystitis. 2. Fatty infiltrated and mildly enlarged liver. Carotid Doppler Study 07/09/18 00:00 CONCLUSION: 1. Right Internal Carotid Artery: Findings indicate >70% stenosis, but less than near occlusion. 2. Left Internal Carotid Artery: Findings indicate <50% stenosis. Chest X-Ray 07/09/18 00:39 CONCLUSION: Negative examination. Hepatobiliary Scan Nuclear Medicine 07/09/18 14:22 CONCLUSION: 1. No activity in intrahepatic ducts, common duct or small bowel. Considerations include include acute obstruction of the common duct and diffuse hepatocellular disease. 2. CT scan shows no dilatation of the common duct or intrahepatic ducts. Diffuse hepatocellular disease is suspected. Chest X-Ray 07/10/18 00:00 CONCLUSION: No acute cardiopulmonary abnormality is identified. Neck CTA 07/10/18 00:00 CONCLUSION: 1. 80% stenosis of the proximal right ICA. Left carotid and bilateral vertebral arteries are patent. 2. Emphysematous changes. Abdomen/Pelvis CTA 07/10/18 00:08 CONCLUSION: 1. 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 The SMA and MIC are patent. 2. Hepatic steatosis. 3. Emphysematous changes. Abdomen/Bladder Ultrasound 07/11/18 00:00 CONCLUSION: 1. Normal ultrasound appearance of the kidneys. 2. Other findings include hepatic steatosis and left pleural effusion. Elbow CT 07/11/18 00:00 CONCLUSION: 1. Small fracture fragment off the olecranon. 2. There is subcutaneous edema identified posterior to the elbow with soft tissue swelling. Chest X-Ray 07/12/18 07:48 CONCLUSION: Acute interstitial vascular congestion with right-sided airspace disease and suspected small bilateral effusions. Head CT 07/13/18 00:00 CONCLUSION: 1. No acute intracranial abnormality. 2. Atrophy. . Chest X-Ray 07/13/18 07:26 CONCLUSION: Interval placement of endotracheal tube which is in appropriate position. Generalized interstitial vascular congestion with bilateral airspace disease and bilateral effusions most characteristic of congestive heart failure. Chest X-Ray 07/13/18 08:32 CONCLUSION: Improved aeration and decreased opacity in right lung base following chest tube placement. No evidence of pneumothorax. No other significant change. Chest X-Ray 07/15/18 00:00 CONCLUSION: 1. Interval decrease in left pleural effusion with no pneumothorax. 2. The small bore right-sided chest tube remains in place. Chest X-Ray 07/15/18 08:57 CONCLUSION: 1. No significant change. Hazy opacity remains in the left lung 2. Mild patchy opacity remains at the right lung base. Chest X-Ray 07/17/18 00:00 CONCLUSION: Persistent patchy airspace disease No evidence of pneumothorax Endotracheal tube and right chest tube are in stable position. Chest X-Ray 07/20/18 04:00 CONCLUSION: Underlying interstitial disease. Left base atelectasis or consolidation which appears to be improving. Gastrostomy Tube Placement 07/22/18 00:00 CONCLUSION: 1. Uncomplicated gastrostomy tube placement as above. Chest X-Ray 07/23/18 00:00 CONCLUSION: Increased opacity in the perihilar regions and lung bases which may represent posterior layering fluid and/or infiltrate. Abdomen X-Ray 07/24/18 00:00 CONCLUSION: 1. No acute abdominal abnormality is identified. 2. Hepatomegaly. Abdomen X-Ray 07/28/18 01:04 CONCLUSION: 1. Gastrostomy catheter in place. 2. Stable bowel gas pattern with mild to moderate colonic stool and marginal distention of the transverse colon. Differential considerations include constipation versus mild developing colonic ileus. Chest X-Ray 07/28/18 01:04 CONCLUSION: 1. Interval development of diffuse patchy interstitial and airspace opacities throughout the right lung and diffuse interstitial opacities in the left lung. Differential considerations include atypical infection versus atypical pulmonary edema. - Procedures PEG <Henry Resendez - Last Filed: 07/31/18 16:10> Assessment and Plan (1) Liver failure Status: Acute Code(s): K72.90 - Hepatic failure, unspecified without coma (2) Hyperbilirubinemia Status: Acute Code(s): E80.6 - Other disorders of bilirubin metabolism - Attending Attestation Seen and examined, plan as above. <Donta Sanchez - Last Filed: 07/29/18 18:48> (1) Liver failure Status: Acute Code(s): K72.90 - Hepatic failure, unspecified without coma (2) Hyperbilirubinemia Status: Acute Code(s): E80.6 - Other disorders of bilirubin metabolism - Plan Assessment: - Elevated LFTs with findings indicative of cirrhosis likely alcohol related Worsening hyperalbuminemia, liver failure Worsening bili could be secondary to hepatic dysfunction and liver failure No hx IV drug use, or tattoos or any high risk sexual behaviors. No family history of liver issues. Hx of cocaine. Hx of sixpack of beer daily. Liver work up: BOBBY, ASMA, AMA negative, Ceruloplasmin 24. AAT 215. AFP-3.7. Iron-123 TIBC-217 %sat-56.7 Ferritin-9759, Hfe negative Hepatitis panel negative. 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 The SMA and MIC are patent. Hepatic steatosis. HIDA (07/09/18) No activity in intrahepatic ducts, common duct or small bowel. Considerations include include acute obstruction of the common duct and diffuse hepatocellular disease. CT scan shows no dilatation of the common duct or intrahepatic ducts. Diffuse hepatocellular disease is suspected. Given history of cirrhosis, exam is unreliable, do not suspect acute cholecystitis. US gallbladder (07/08/18) Small, nonspecific pericholecystic fluid without stones, wall thickening or sonographic Lundy's sign. The fluid may be on the basis of hepatocellular disease. The ultrasound does not support acute cholecystitis. Fatty infiltrated and mildly enlarged liver. - Ileus- Per nurse, pt had good Bm last night Abdomen X-Ray 07/28/18 1. Gastrostomy catheter in place. 2. Stable bowel gas pattern with mild to moderate colonic stool and marginal distention of the transverse colon. Differential considerations include constipation versus mild developing colonic ileus - Anemia- No bleeding reported, no EGD or colonoscopy in the past. - Coagulopathy, thrombocytopenia, hypoalbuminemia- in setting of cirrhosis - MRSA bacteremia- ID following, abx - Elevated troponin levels- Cardiology following - S/P PEG tube placement by IR 07/22/18 Plan - N.p.o. - KUB in the am - US - MRCP to r/o biliary obstruction as the cause - Lipase, ammonia - LFTs in the am - Cont. lactulose - Cont. Reglan - Will add Xifaxan This patient has been seen by myself and Dr. Sanchez and this note is written on his behalf <Henry Resendez - Last Filed: 07/31/18 16:10>
[2018-07-29] MEDS ORDERED: Vancomycin Inj 1,150 MG in Sodium Chlor 0.9% Inj 250 ML IV.SIG SCH (12:00)
--- NOTE | 2018-07-29 14:32 | P.PNIM ---
Subjective Interval history: Follow-up transaminitis. Patient is confused. He has been vomiting tube feeding on hold. Positive bowel movement per nurse. Physical Exam Vital signs: Last Vital Signs Temp 97.3 F L 07/29/18 11:38 Pulse 92 H 07/29/18 11:38 Resp 20 07/29/18 11:38 BP 103/58 L 07/29/18 11:38 Pulse Ox 95 07/29/18 11:38 Intake & Output 07/27/18 07/28/18 07/29/18 07/30/18 06:59 06:59 06:59 06:59 Intake Total 2260 / 2260 560 / 560 550 / 550 361.5 / 361.5 Output Total 0 / 0 125 / 125 Balance 2260 / 2260 560 / 560 425 / 425 361.5 / 361.5 Weight 65 kg 67.3 kg 59.9 kg Narrative: GENERAL: 63 yo male appearing older, chronically ill, not in acute distress at this time. SKIN: Warm and dry. Jaundiced Respiratory: Upper airway congestion CARDIOVASCULAR: Regular rate and rhythm without murmurs, gallops, or rubs. RESPIRATORY: Breath sounds coarse sounding. GASTROINTESTINAL: Abdomen soft, Leakage at the PEG tube site. Abd slightly distended. MUSCULOSKELETAL: No cyanosis, no edema. Neuro: alert, confused Urinary Catheter Management Indwelling Urethral Catheter: Cath placed during this visit: yes, but has since been removed by the nurse Insertion date: 07/12/18 Insertion time: 07:45 Removal date: 07/19/18 Removal time: 10:45 Condom: Cath placed during this visit: yes Urethral indwelling: No Insertion date: 07/19/18 Insertion time: 10:50 Results Labs CBC & Chem 7: 07/28/18 12:53 07/28/18 07:57 Labs: Microbiology 07/28/18 13:52 Blood - Peripheral Aerobic Blood Culture - Preliminary No growth in 1 day 07/28/18 13:52 Blood - Peripheral Anaerobic Blood Culture - Preliminary No growth in 1 day 07/28/18 13:57 Blood - Peripheral Aerobic Blood Culture - Preliminary No growth in 1 day 07/28/18 13:57 Blood - Peripheral Anaerobic Blood Culture - Preliminary No growth in 1 day Procedures Procedures: PEG Assessment and Plan (1) Liver failure: Code(s): K72.90 - Hepatic failure, unspecified without coma Status: Acute (2) Hyperbilirubinemia: Code(s): E80.6 - Other disorders of bilirubin metabolism Status: Acute Plan Acute metabolic encephalopathy Anisocoria EtOH abuse Recent cocaine/opiate abuse -inhaled. Denies intravenous MVI/ folate. Patient states he inhaled cocaine 4-5 days prior to admission. Denies IV drug use. Discontinued acetaminophen and related products with elevated transaminases Stat CT of the head for unequal pupil, negative for acute findings Encephalopathy improved enough to allow extubation 07/18. Check ammonia level as needed due to encephalopathy. Resume lactulose following G-tube placement by IR CV: Severe sepsis Lactic acidosis Elevated troponin likely demand ischemia Right carotid artery stenosis Elevated CPK Cardiology Dr. chaudhry. No intervention planned 2D echocardiogram revealed Normal left ventricular size. Wall thickness is normal. The left ventricular systolic function is normal with an estimated ejection fraction in the range of 55-60%. Not on aspirin or heparin at this time due to thrombocytopenia Followed by vascular surgery for right carotid artery stenosis 80%. Resp: Acute hypoxemic respiratory failure Hospital-acquired pneumonia Emphysematous type changes on CT neck Hyperammonemia Hypoalbuminemia Tobacco abuse Emergently intubated and placed on mechanical ventilation. PRVC/AC 07/13/2018 Incentive spirometry. Extubated 07/18 Chest tube removed 07/19, chest x-ray after with the right lung well expanded. Consulted pulmonology IS/ Acapella, continue duonebs pulmonary drainage Continue treatment for hospital-acquired pneumonia with vancomycin and Zosyn GI: Elevated transaminases. Worse Elevated total bilirubin. Worse Poss acalc jody Liver failure Hypoalbuminemia Cirrhosis suspect Ileus vs constipation Noted CT abdomen/pelvis revealed possible early cholecystitis. Pericholecystic fluid. Ultrasound revealed negative Lundy sign. Nuclear medicine scan revealed no activity in the intrahepatic ductal compound bile duct or small bowel. 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 Patent MIC, celiac. Hepatitis panel negative. Negative w/u - ceruloplasmin, BOBBY, AMA, ASMA, SSA AMB, anti-Ronquillo, RP, scleroderma, double-stranded DNA, hemochromatosis Currently on lactulose 30 cc 3 times daily for elevated ammonia. Increase to 45 ml Resume tube feeds once G-tube placed by IR We consulted GI ordered KUB in the morning, ultrasound and MRCP today as well as lipase and ammonia. Endo: Sliding scale insulin with Accu-Cheks to maintain euglycemia/every 6 hours low regimen TSH 1. Cortisol 25 Glucose control acceptable Renal: Acute kidney failure Hypernatremia. Resolved Hypokalemia Avoid nephrotoxic medication. Discontinued vancomycin 07/11 Convert fluid to D5 water with KCl 10 mEq/L Monitor and replete electrolytes Heme: Macrocytic anemia Thrombocytopenia Coagulopathic state Follow-up on PT/INR Platelet transfusion ordered prior to G-tube placement by IR ID: MRSA bacteremia Septic shock Pneumonia 2D transthoracic echocardiogram revealed no signs of endocarditis. Infectious disease following Currently on vancomycin and Zosyn MSK: Left posterior olecranon fracture Followed by Dr. Blanco, splint immobilized. FEN: Replace electrolytes as clinically indicated Access -Utilize peripheral IV. Prophylaxis -GI -pantoprazole -DVT-SCD/hold off chemical DVT prophylaxis due to severe thrombocytopenia, prolonged INR DC plan: Pending improvement and clearance by consultants. Might be a candidate for hospice discussed with [facility] Code status: DNR status. Palliative care following. Progress Note: Quality VTE Deep Vein Thrombosis/Pulmonary Embolism Present on Admission: No _ (1) Liver failure Qualifiers: Liver failure chronicity: Hepatic coma status:
--- NOTE | 2018-07-29 15:33 | US ---
EXAM DATE: 07/29/2018 3:15 PM EST AGE/SEX: 63 years / Male INDICATIONS: RUQ pain. CLINICAL DATA: This is the patient's initial encounter. Patient reports that signs and symptoms have been present for 1 day and indicates a pain score of Nonresponsive. MEDICAL/SURGICAL HISTORY: . ETOH abuse. MRSA. Left eye injury. Tobacco use. . Right foot surge ry. [place] [facility] [place]. . MEASUREMENTS: Liver:__ 17.7 cm. Common Bile Duct:__ Nonvisualized. Right Kidney:__ 12.1 x 5.1 x 4.1 cm. FINDINGS: Liver: Liver is enlarged. Increased echogenicity without focal lesion or ductal dilatation. Portal Vein: Hepatopedal flow seen in portal vein. Common Duct: No intraluminal mass or stone visualized. Gallbladder: There is mild gallbladder wall thickening. No cholelithiasis, sonographic Lundy's sign or pericholecystic fluid is noted. Pancreas: Not well visualized. Right Kidney: Increased echogenicity. No mass or hydronephrosis. Other: Some ascites is noted along the edge of the liver and spleen. CONCLUSION: 1. Mild gallbladder wall thickening. If there is clinical concern for cholecystitis, a hepatobiliary scan may be helpful to confirm cystic duct obstruction. 2. Enlarged fatty liver. 3. Some ascites along the edge of the liver and spleen. 4. Echogenic right kidney suggesting possible medical renal disease. 5. Poor visualization of the pancreas due to shadowing bowel gas. Electronically signed by: Frederick Vargas MD Board Certified Radiologist 07/29/2018 3:32 PM EST
[2018-07-29] MEDS: Dextrose 5%/NaCl 0.45% Inj 1,000 ML IV.CONT SCH (16:19)
[2018-07-29] MEDS: rifAXIMin 550 MG Tablet PO SCH (22:04)
--- NOTE | 2018-07-29 22:19 | XR ---
EXAM DATE: 07/29/2018 10:16 PM EST AGE/SEX: 63 years / Male INDICATIONS: Short of breath. CLINICAL DATA: This is the patient's subsequent encounter. Patient reports that signs and symptoms h ave been present for 1 week and indicates a pain score of 0/10. MEDICAL/SURGICAL HISTORY: Non-responsive. Non-responsive. COMPARISON: [facility] – [place], CHEST 1V SINGLE AP, 07/28/2018. . FINDINGS: There is no significant change in the bilateral infiltrates (right worse than left). The heart remain s mildly enlarged. CONCLUSION: 1. No significant change in the bilateral infiltrates (right worse than left). 2. Mild stable cardiomegaly. Electronically signed by: Frederick Vargas MD Board Certified Radiologist 07/29/2018 10:18 PM EST
[2018-07-30] MEDS: Oral Hygiene Kit OROPHARYNG SCH ×4 (00:15→15:31)
[2018-07-30] MEDS: Morphine Inj 4 MG/ML Vial IV.PUSH PRN ×4 (00:49→20:18)
[2018-07-30] MEDS: Piperacil/Tazo 4.5 GM Premix 4.5 GM/100 ML BAG IV.SIG SCH ×4 (04:34→22:17)
[2018-07-30 06:54] LABS: Baso # (Auto) 0.1 th/mm3 (0.0-0.2); Baso % (Auto) 0.7 % (0.0-2.0); Eos # (Auto) 0.1 th/mm3 (0.0-0.4); Hematocrit 26.3 % (39.0-51.0); Hemoglobin 8.9 gm/dL (13.0-17.0); Lymph % (Auto) 7.5 % (9.0-44.0); Mean Corpuscular HGB Conc 33.8 % (32.0-36.0); Mean Corpuscular Hemoglobin 34.4 pg (27.0-34.0); Mean Corpuscular Volume 101.7 fL (80.0-100.0); Mean Platelet Volume 11.4 fL (7.0-11.0); Mono # (Auto) 1.6 th/mm3 (0.0-0.9); Mono % (Auto) 11.3 % (0.0-8.0); Neut # (Auto) 11.2 th/mm3 (1.8-7.7); Neut % (Auto) 79.5 % (16.0-70.0); Platelet Count 118 th/mm3 (150-450); Red Blood Count 2.59 mil/mm3 (4.50-5.90); Red Cell Distribution Width 19.5 % (11.6-17.2)
[2018-07-30 07:39] LABS: Alanine Aminotransferase 90 U/L (12-78); Albumin 1.9 g/dL (3.4-5.0); Alkaline Phosphatase 180 U/L (45-117); Anion Gap 9 meq/L (5-15); Aspartate Aminotransferase 119 U/L (15-37); Blood Urea Nitrogen 62 mg/dL (7-18); Calcium 7.9 mg/dL (8.5-10.1); Carbon Dioxide 25.9 meq/L (21.0-32.0); Chloride 111 meq/L (98-107); Glomerular Filtration Rate 37 mL/min (>89); Glucose,Random 131 mg/dL (74-106); Magnesium 2.8 mg/dL (1.5-2.5); Potassium 3.4 meq/L (3.5-5.1); Sodium 146 meq/L (136-145); Total Protein 5.4 g/dL (6.4-8.2)
[2018-07-30] MEDS: Insulin NovoLOG Aspart Correctional Sugar Inj SQ SCH ×4 (08:57→22:24)
[2018-07-30] MEDS: Chlorhexidine 0.12% Oral Kit 15 ML UDC OROPHARYNG SCH ×2 (08:58→22:02)
[2018-07-30] MEDS: Mupirocin 2% Nasal Oint Topical Syringe EACH NARE SCH ×2 (08:58→22:03)
[2018-07-30] MEDS: rifAXIMin 550 MG Tablet PO SCH ×2 (08:59→22:03)
[2018-07-30] MEDS: Metoclopramide 10 MG Tablet G-TUBE SCH ×4 (09:01→22:17)
--- NOTE | 2018-07-30 09:56 | XR ---
EXAM DATE: 07/30/2018 9:53 AM EST AGE/SEX: 63 years / Male INDICATIONS: Distention. Abdominal pain. CLINICAL DATA: This is the patient's subsequent encounter. Patient reports that signs and symptoms h ave been present for 3 days and indicates a pain score of Nonresponsive. MEDICAL/SURGICAL HISTORY: Non-responsive. Non-responsive. COMPARISON: [facility], ABDOMEN 1V KUB, 07/28/2018. . FINDINGS: Gastrostomy tube noted. Moderate gaseous distention of colon, primarily the proximal colon which venus ears slightly worse than on previous exam. Cecum is dilated to greater than 9 cm CONCLUSION: Slight worsening in colonic distention Electronically signed by: Calvin Cespedes MD Board Certified Radiologist 07/30/2018 9:55 AM EST
[2018-07-30] MEDS: Dextrose 5%/NaCl 0.45% Inj 1,000 ML IV.CONT SCH (10:14)
[2018-07-30] MEDS ORDERED: Potassium Bicarbonate 25 MEQ Effervescent Tablet G-TUBE ONE (13:30)
--- NOTE | 2018-07-30 13:52 | P.PNIM ---
Subjective Interval history: Follow-up liver disease. Patient states he is okay denies pain but has tender abdomen. No vomiting. He has been having loose stools discussed with nursing Physical Exam Vital signs: Last Vital Signs Temp 97.2 F L 07/30/18 08:00 Pulse 87 07/30/18 08:00 Resp 12 07/30/18 12:00 BP 109/59 L 07/30/18 08:00 Pulse Ox 94 L 07/30/18 08:00 Intake & Output 07/28/18 07/29/18 07/30/18 07/31/18 06:59 06:59 06:59 06:59 Intake Total 560 / 560 550 / 550 721.5 / 721.5 1100 / 1100 Output Total 125 / 125 0 / 0 Balance 560 / 560 425 / 425 721.5 / 721.5 1100 / 1100 Weight 67.3 kg 59.9 kg 59.9 kg Narrative: GENERAL: 63 yo male appearing older, chronically ill SKIN: Warm and dry. Jaundiced Respiratory: Upper airway congestion CARDIOVASCULAR: Regular rate and rhythm without murmurs, gallops, or rubs. RESPIRATORY: Breath sounds coarse sounding. GASTROINTESTINAL: Abdomen soft, Leakage at the PEG tube site. Abd distended with diffuse tenderness. MUSCULOSKELETAL: No cyanosis, no edema. Neuro: alert, confused Urinary Catheter Management Indwelling Urethral Catheter: Cath placed during this visit: yes, but has since been removed by the nurse Insertion date: 07/12/18 Insertion time: 07:45 Removal date: 07/19/18 Removal time: 10:45 Condom: Cath placed during this visit: yes Urethral indwelling: No Insertion date: 07/19/18 Insertion time: 10:50 Results Labs CBC & Chem 7: 07/30/18 05:18 07/30/18 05:18 Labs: Microbiology 07/28/18 13:52 Blood - Peripheral Aerobic Blood Culture - Preliminary No growth in 2 days 07/28/18 13:52 Blood - Peripheral Anaerobic Blood Culture - Preliminary No growth in 2 days 07/28/18 13:57 Blood - Peripheral Aerobic Blood Culture - Preliminary No growth in 2 days 07/28/18 13:57 Blood - Peripheral Anaerobic Blood Culture - Preliminary No growth in 2 days Imaging Imaging: Impressions Chest X-Ray 07/29/18 00:00 CONCLUSION: 1. No significant change in the bilateral infiltrates (right worse than left). 2. Mild stable cardiomegaly. Liver Ultrasound 07/29/18 00:00 CONCLUSION: 1. Mild gallbladder wall thickening. If there is clinical concern for cholecystitis, a hepatobiliary scan may be helpful to confirm cystic duct obstruction. 2. Enlarged fatty liver. 3. Some ascites along the edge of the liver and spleen. 4. Echogenic right kidney suggesting possible medical renal disease. 5. Poor visualization of the pancreas due to shadowing bowel gas. Abdomen X-Ray 07/30/18 00:00 CONCLUSION: Slight worsening in colonic distention Procedures Procedures: PEG Assessment and Plan (1) Liver failure: Code(s): K72.90 - Hepatic failure, unspecified without coma Status: Acute (2) Hyperbilirubinemia: Code(s): E80.6 - Other disorders of bilirubin metabolism Status: Acute Plan Acute metabolic encephalopathy Anisocoria EtOH abuse Recent cocaine/opiate abuse -inhaled. Denies intravenous MVI/ folate. Patient states he inhaled cocaine 4-5 days prior to admission. Denies IV drug use. Discontinued acetaminophen and related products with elevated transaminases Stat CT of the head for unequal pupil, negative for acute findings Encephalopathy improved enough to allow extubation 07/18. Check ammonia level as needed due to encephalopathy. Resume lactulose following G-tube placement by IR CV: Severe sepsis Lactic acidosis Elevated troponin likely demand ischemia Right carotid artery stenosis Elevated CPK Cardiology Dr. chaudhry. No intervention planned 2D echocardiogram revealed Normal left ventricular size. Wall thickness is normal. The left ventricular systolic function is normal with an estimated ejection fraction in the range of 55-60%. Not on aspirin or heparin at this time due to thrombocytopenia Followed by vascular surgery for right carotid artery stenosis 80%. Resp: Acute hypoxemic respiratory failure Hospital-acquired pneumonia Emphysematous type changes on CT neck Hyperammonemia Hypoalbuminemia Tobacco abuse Emergently intubated and placed on mechanical ventilation. PRVC/AC 07/13/2018 Incentive spirometry. Extubated 07/18 Chest tube removed 07/19, chest x-ray after with the right lung well expanded. Consulted pulmonology IS/ Acapella, continue duonebs pulmonary drainage Continue treatment for hospital-acquired pneumonia with Zosyn GI: Elevated transaminases. Worse Elevated total bilirubin. Worse Poss acalc jody Liver failure Hypoalbuminemia Cirrhosis suspect Ileus vs constipation. Patient having loose stools Noted CT abdomen/pelvis revealed possible early cholecystitis. Pericholecystic fluid. Ultrasound revealed negative Lundy sign. Nuclear medicine scan revealed no activity in the intrahepatic ductal compound bile duct or small bowel. Cannot rule out common bile duct obstruction CT angiogram of the abdomen/pelvis revealed 20-30% stenosis of the SMA. Patent MIC, celiac. Hepatitis panel negative. Negative w/u - ceruloplasmin, BOBBY, AMA, ASMA, SSA AMB, anti-Ronquillo, RP, scleroderma, double-stranded DNA, hemochromatosis Currently on lactulose 30 cc 3 times daily for elevated ammonia. Increased to 45 ml Resume tube feeds once G-tube placed by IR Reconsulted GI, ultrasound with gallbladder thickening, KUB with worsening colonic distention pending MRCP today. Repeat ammonia level within normal limits Endo: Sliding scale insulin with Accu-Cheks to maintain euglycemia/every 6 hours low regimen TSH 1. Cortisol 25 Glucose control acceptable Renal: Acute kidney failure. Worse Hypernatremia. Hypokalemia Avoid nephrotoxic medication. Discontinued vancomycin Convert fluid to D5 water with KCl 10 mEq/L. Increase free water Monitor and replete electrolytes Heme: Macrocytic anemia Thrombocytopenia Coagulopathic state Follow-up on PT/INR Platelet transfusion ordered prior to G-tube placement by IR ID: MRSA bacteremia Septic shock Pneumonia 2D transthoracic echocardiogram revealed no signs of endocarditis. Infectious disease following Currently on Zosyn MSK: Left posterior olecranon fracture Followed by Dr. Blanco, splint immobilized. FEN: Replace electrolytes as clinically indicated Access -Utilize peripheral IV. Prophylaxis -GI -pantoprazole -DVT-SCD/hold off chemical DVT prophylaxis due to severe thrombocytopenia, prolonged INR DC plan: Pending improvement and clearance by consultants. Might be a candidate for hospice discussed with [facility] consulted Code status: DNR status. Palliative care following. Progress Note: Quality VTE Deep Vein Thrombosis/Pulmonary Embolism Present on Admission: No _ (1) Liver failure Qualifiers: Liver failure chronicity: Hepatic coma status:
--- NOTE | 2018-07-30 15:03 | P.PNGI ---
Subjective Interval history: Patient laying supine in bed Abdomen firm distended Bilious colored fluid draining from around PEG tube site <Diamond [place] - Last Filed: 07/30/18 14:53> Physical Exam Vital signs: Vital Signs 07/29/18 16:36 07/29/18 20:00 07/29/18 20:51 Temperature 97.4 F L 97.5 F L Pulse Rate 99 H 96 H 94 H Respiratory Rate 18 18 16 Blood Pressure 102/54 L 111/68 Pulse Oximetry 94 L 93 L 92 L 07/29/18 22:00 07/30/18 00:00 07/30/18 03:00 Temperature 98.1 F Pulse Rate 96 H 80 Respiratory Rate 19 20 Blood Pressure 109/53 L Pulse Oximetry 94 L 97 07/30/18 04:00 07/30/18 08:00 07/30/18 12:00 Temperature 97.6 F 97.2 F L 97.2 F L Pulse Rate 90 87 88 Respiratory Rate 18 16 18 Blood Pressure 119/57 L 109/59 L 105/61 Pulse Oximetry 93 L 94 L 92 L Intake & Output 07/29/18 07/30/18 07/30/18 18:59 06:59 18:59 Intake Total 461.5 / 461.5 260 / 260 1100 / 1100 Output Total 0 / 0 Balance 461.5 / 461.5 260 / 260 1100 / 1100 Weight 59.9 kg Intake: IV 461.5 / 461.5 200 / 200 1100 / 1100 D5W/1/2 NS Inj 1,000 ML @ 50 1000 / 1000 mls/hr IV.CONT .Q20H [place] Rx#: [id number] Zosyn 4.5 GM Premix 4.5 gm In 200 / 200 200 / 200 100 / 100 100 ml @ 200 mls/hr IV.SIG Q6H [place] Rx#:[id number] Vancomycin Inj 1,150 MG In NS 261.5 / 261.5 Inj 250 ML @ 250 mls/hr IV.SIG Q24H [place] Rx#:[id number] Oral 0 / 0 Water Bolus Amount 60 / 60 Output: Stool 0 / 0 Chest Tube Drainage 0 / 0 Right 0 / 0 Other: # Voids 3 # Incontinent Voids 1 # Urine Diapers 4 Date of Last Bowel Movement 06/29/18 07/30/18 07/30/18 # Bowel Movements 1 1 # Incontinent Bowel Movements 1 1 - Constitutional no acute distress, chronically ill appearing - Routine HEENT Exam Head: Present: normocephalic Eye: Present: conjunctival icterus - Routine Respiratory Exam Present: CTA bilaterally. Absent: accessory muscle use, respiratory distress - Routine Cardiovascular Exam Present: RRR - Routine Abdominal Exam Present: distended, firm. Absent: tenderness Comments: Distant bowel sounds present Gastric tube noted Bilious drainage seeping around gastric tube site - Routine Skin Exam Present: dry, warm, jaundice - Routine Neurological Exam Present: altered mental status - Urinary Catheter Management Indwelling Urethral Catheter Cath placed during this visit: yes, but has since been removed by the nurse Reason for continuing: Decision to DC catheter Insertion date: 07/12/18 Insertion time: 07:45 Removal date: 07/19/18 Removal time: 10:45 Condom Cath placed during this visit: yes Urethral indwelling: No Reason for continuing: Not indwelling catheter Insertion date: 07/19/18 Insertion time: 10:50 <Diamond [place] - Last Filed: 07/30/18 14:53> Vital signs: Vital Signs 07/29/18 16:36 07/29/18 20:00 07/29/18 20:51 Temperature 97.4 F L 97.5 F L Pulse Rate 99 H 96 H 94 H Respiratory Rate 18 18 16 Blood Pressure 102/54 L 111/68 Pulse Oximetry 94 L 93 L 92 L 07/29/18 22:00 07/30/18 00:00 07/30/18 03:00 Temperature 98.1 F Pulse Rate 96 H 80 Respiratory Rate 19 20 Blood Pressure 109/53 L Pulse Oximetry 94 L 97 07/30/18 04:00 07/30/18 08:00 07/30/18 12:00 Temperature 97.6 F 97.2 F L 97.2 F L Pulse Rate 90 87 88 Respiratory Rate 18 16 18 Blood Pressure 119/57 L 109/59 L 105/61 Pulse Oximetry 93 L 94 L 92 L 07/30/18 15:32 07/30/18 15:33 Temperature Pulse Rate 88 Respiratory Rate 18 Blood Pressure Pulse Oximetry 92 L Intake & Output 07/29/18 07/30/18 07/30/18 18:59 06:59 18:59 Intake Total 461.5 / 461.5 260 / 260 1100 / 1100 Output Total 0 / 0 Balance 461.5 / 461.5 260 / 260 1100 / 1100 Weight 59.9 kg Intake: IV 461.5 / 461.5 200 / 200 1100 / 1100 D5W/1/2 NS Inj 1,000 ML @ 50 1000 / 1000 mls/hr IV.CONT .Q20H [place] Rx#: [id number] Zosyn 4.5 GM Premix 4.5 gm In 200 / 200 200 / 200 100 / 100 100 ml @ 200 mls/hr IV.SIG Q6H [place] Rx#:[id number] Vancomycin Inj 1,150 MG In NS 261.5 / 261.5 Inj 250 ML @ 250 mls/hr IV.SIG Q24H [place] Rx#:[id number] Oral 0 / 0 Water Bolus Amount 60 / 60 Output: Stool 0 / 0 Chest Tube Drainage 0 / 0 Right 0 / 0 Other: # Voids 3 # Incontinent Voids 1 # Urine Diapers 4 Date of Last Bowel Movement 06/29/18 07/30/18 07/30/18 # Bowel Movements 1 1 # Incontinent Bowel Movements 1 1 - Urinary Catheter Management Indwelling Urethral Catheter Cath placed during this visit: no Condom Cath placed during this visit: no <Donta Sanchez - Last Filed: 07/30/18 16:24> Results - Labs CBC & Chem 7: 07/30/18 05:18 07/30/18 05:18 Laboratory Results - last 24 hr 07/29/18 07/29/18 07/29/18 14:28 16:45 22:21 WBC RBC Hgb Hct MCV MCH MCHC RDW Plt Count MPV Neut % (Auto) Lymph % (Auto) [place] % (Auto) Eos % (Auto) Baso % (Auto) Neut # (Auto) Lymph # (Auto) [place] # (Auto) Eos # (Auto) Baso # (Auto) WBC Differential Differential Comment Sodium Potassium Chloride Carbon Dioxide Anion Gap BUN Creatinine Estimated GFR POC Glucose 144 H 179 H Random Glucose Calcium Magnesium Total Bilirubin Direct Bilirubin AST ALT Alkaline Phosphatase Ammonia 30 Total Protein Albumin 07/30/18 07/30/18 07/30/18 00:55 05:18 05:18 WBC 14.0 H RBC 2.59 L Hgb 8.9 L Hct 26.3 L MCV 101.7 H MCH 34.4 H MCHC 33.8 RDW 19.5 H Plt Count 118 L MPV 11.4 H Neut % (Auto) 79.5 H Lymph % (Auto) 7.5 L [place] % (Auto) 11.3 H Eos % (Auto) 1.0 Baso % (Auto) 0.7 Neut # (Auto) 11.2 H Lymph # (Auto) 1.0 [place] # (Auto) 1.6 H Eos # (Auto) 0.1 Baso # (Auto) 0.1 WBC Differential . Differential Comment Auto diff final Sodium 146 H D Potassium 3.4 L D Chloride 111 H D Carbon Dioxide 25.9 Anion Gap 9 BUN 62 H Creatinine 1.85 H Estimated GFR 37 L POC Glucose 166 H Random Glucose 131 H Calcium 7.9 L D Magnesium 2.8 H Total Bilirubin 21.0 H Direct Bilirubin 17.9 H AST 119 H ALT 90 H Alkaline Phosphatase 180 H Ammonia Total Protein 5.4 L D Albumin 1.9 L 07/30/18 07/30/18 07/30/18 07:18 08:57 11:52 WBC RBC Hgb Hct MCV MCH MCHC RDW Plt Count MPV Neut % (Auto) Lymph % (Auto) [place] % (Auto) Eos % (Auto) Baso % (Auto) Neut # (Auto) Lymph # (Auto) [place] # (Auto) Eos # (Auto) Baso # (Auto) WBC Differential Differential Comment Sodium Potassium Chloride Carbon Dioxide Anion Gap BUN Creatinine Estimated GFR POC Glucose 182 H 152 H 138 H Random Glucose Calcium Magnesium Total Bilirubin Direct Bilirubin AST ALT Alkaline Phosphatase Ammonia Total Protein Albumin Microbiology 07/28/18 13:52 Blood - Peripheral Aerobic Blood Culture - Preliminary No growth in 2 days 07/28/18 13:52 Blood - Peripheral Anaerobic Blood Culture - Preliminary No growth in 2 days 07/28/18 13:57 Blood - Peripheral Aerobic Blood Culture - Preliminary No growth in 2 days 07/28/18 13:57 Blood - Peripheral Anaerobic Blood Culture - Preliminary No growth in 2 days - Imaging Impressions Chest X-Ray 07/29/18 00:00 CONCLUSION: 1. No significant change in the bilateral infiltrates (right worse than left). 2. Mild stable cardiomegaly. Liver Ultrasound 07/29/18 00:00 CONCLUSION: 1. Mild gallbladder wall thickening. If there is clinical concern for cholecystitis, a hepatobiliary scan may be helpful to confirm cystic duct obstruction. 2. Enlarged fatty liver. 3. Some ascites along the edge of the liver and spleen. 4. Echogenic right kidney suggesting possible medical renal disease. 5. Poor visualization of the pancreas due to shadowing bowel gas. Abdomen X-Ray 07/30/18 00:00 CONCLUSION: Slight worsening in colonic distention - Procedures PEG <YongDiamond - Last Filed: 07/30/18 14:53> - Labs CBC & Chem 7: 07/30/18 05:18 07/30/18 05:18 Laboratory Results - last 24 hr 07/29/18 07/29/18 07/30/18 16:45 22:21 00:55 WBC RBC Hgb Hct MCV MCH MCHC RDW Plt Count MPV Neut % (Auto) Lymph % (Auto) [place] % (Auto) Eos % (Auto) Baso % (Auto) Neut # (Auto) Lymph # (Auto) [place] # (Auto) Eos # (Auto) Baso # (Auto) WBC Differential Differential Comment Sodium Potassium Chloride Carbon Dioxide Anion Gap BUN Creatinine Estimated GFR POC Glucose 144 H 179 H 166 H Random Glucose Calcium Magnesium Total Bilirubin Direct Bilirubin AST ALT Alkaline Phosphatase Total Protein Albumin 07/30/18 07/30/18 07/30/18 05:18 05:18 07:18 WBC 14.0 H RBC 2.59 L Hgb 8.9 L Hct 26.3 L MCV 101.7 H MCH 34.4 H MCHC 33.8 RDW 19.5 H Plt Count 118 L MPV 11.4 H Neut % (Auto) 79.5 H Lymph % (Auto) 7.5 L [place] % (Auto) 11.3 H Eos % (Auto) 1.0 Baso % (Auto) 0.7 Neut # (Auto) 11.2 H Lymph # (Auto) 1.0 [place] # (Auto) 1.6 H Eos # (Auto) 0.1 Baso # (Auto) 0.1 WBC Differential . Differential Comment Auto diff final Sodium 146 H D Potassium 3.4 L D Chloride 111 H D Carbon Dioxide 25.9 Anion Gap 9 BUN 62 H Creatinine 1.85 H Estimated GFR 37 L POC Glucose 182 H Random Glucose 131 H Calcium 7.9 L D Magnesium 2.8 H Total Bilirubin 21.0 H Direct Bilirubin 17.9 H AST 119 H ALT 90 H Alkaline Phosphatase 180 H Total Protein 5.4 L D Albumin 1.9 L 07/30/18 07/30/18 08:57 11:52 WBC RBC Hgb Hct MCV MCH MCHC RDW Plt Count MPV Neut % (Auto) Lymph % (Auto) [place] % (Auto) Eos % (Auto) Baso % (Auto) Neut # (Auto) Lymph # (Auto) [place] # (Auto) Eos # (Auto) Baso # (Auto) WBC Differential Differential Comment Sodium Potassium Chloride Carbon Dioxide Anion Gap BUN Creatinine Estimated GFR POC Glucose 152 H 138 H Random Glucose Calcium Magnesium Total Bilirubin Direct Bilirubin AST ALT Alkaline Phosphatase Total Protein Albumin Microbiology 07/28/18 13:52 Blood - Peripheral Aerobic Blood Culture - Preliminary No growth in 2 days 07/28/18 13:52 Blood - Peripheral Anaerobic Blood Culture - Preliminary No growth in 2 days 07/28/18 13:57 Blood - Peripheral Aerobic Blood Culture - Preliminary No growth in 2 days 07/28/18 13:57 Blood - Peripheral Anaerobic Blood Culture - Preliminary No growth in 2 days - Imaging Impressions Chest X-Ray 07/29/18 00:00 CONCLUSION: 1. No significant change in the bilateral infiltrates (right worse than left). 2. Mild stable cardiomegaly. Abdomen X-Ray 07/30/18 00:00 CONCLUSION: Slight worsening in colonic distention Elbow X-Ray 07/30/18 00:00 CONCLUSION: Good alignment and position of the bony structures. <Donta Sanchez - Last Filed: 07/30/18 16:24> Assessment and Plan (1) Liver failure Status: Acute Code(s): K72.90 - Hepatic failure, unspecified without coma (2) Hyperbilirubinemia Status: Acute Code(s): E80.6 - Other disorders of bilirubin metabolism - Plan Assessment: - Elevated LFTs with findings indicative of cirrhosis likely alcohol related Worsening hyperalbuminemia, liver failure Worsening bili could be secondary to hepatic dysfunction and liver failure No hx IV drug use, or tattoos or any high risk sexual behaviors. No family history of liver issues. Hx of cocaine. Hx of sixpack of beer daily. Liver work up: BOBBY, ASMA, AMA negative, Ceruloplasmin 24. AAT 215. AFP-3.7. Iron-123 TIBC-217 %sat-56.7 Ferritin-9759, Hfe negative Hepatitis panel negative. 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 The SMA and MIC are patent. Hepatic steatosis. HIDA (07/09/18) No activity in intrahepatic ducts, common duct or small bowel. Considerations include include acute obstruction of the common duct and diffuse hepatocellular disease. CT scan shows no dilatation of the common duct or intrahepatic ducts. Diffuse hepatocellular disease is suspected. Given history of cirrhosis, exam is unreliable, do not suspect acute cholecystitis. US gallbladder (07/08/18) Small, nonspecific pericholecystic fluid without stones, wall thickening or sonographic Lundy's sign. The fluid may be on the basis of hepatocellular disease. The ultrasound does not support acute cholecystitis. Fatty infiltrated and mildly enlarged liver. - Ileus- Per nurse, pt had good Bm last night Abdomen X-Ray 07/28/18 1. Gastrostomy catheter in place. 2. Stable bowel gas pattern with mild to moderate colonic stool and marginal distention of the transverse colon. Differential considerations include constipation versus mild developing colonic ileus - Anemia- No bleeding reported, no EGD or colonoscopy in the past. - Coagulopathy, thrombocytopenia, hypoalbuminemia- in setting of cirrhosis - MRSA bacteremia- ID following, abx - Elevated troponin levels- Cardiology following - S/P PEG tube placement by IR 07/22/18 07/30/2018 Gastrostomy tube noted Moderate amount of bilious drainage seeping from PEG tube site-no bleeding noted or reported Abdomen distended 07/29/2018 liver ultrasound revealed the following--. Mild gallbladder wall thickening. If there is clinical concern for cholecystitis , a hepatobiliary scan may be helpful to confirm cystic duct obstruction. Enlarged fatty liver. Some ascites along the edge of the liver and spleen. Echogenic right kidney suggesting possible medical renal disease. Poor visualization of the pancreas due to shadowing bowel gas. 07/30/2018 KUB revealed the following-- Gastrostomy tube noted. Moderate gaseous distention of colon, primarily the proximal colon which appears slightly worse than on previous exam. Cecum is dilated to greater than 9 cm. 07/30/2018 WBC 14.0 hemoglobin 8.9 hematocrit 26.3 platelet count 118 Total bilirubin 21 AST 119 ALT 90 alk phos 180 trending down 07/29/2018 ammonia level 30 Plan -N.p.o. -Insert NG tube to low intermittent wall suction -Insert rectal tube to gravity -Relistor -MRCP to rule out biliary obstruction-pending -Monitor labs; lipase, ammonia and LFTs -Lactulose, Reglan, Xifaxan This patient has been seen by myself and Dr. Snachez and this note is written on his behalf - Attending Attestation Dr. Sanchez <Di[place] - Last Filed: 07/30/18 14:53> (1) Liver failure Status: Acute Code(s): K72.90 - Hepatic failure, unspecified without coma (2) Hyperbilirubinemia Status: Acute Code(s): E80.6 - Other disorders of bilirubin metabolism - Attending Attestation Agree with above assessment and plan. Large amount of gastric secretions drained after placing him on suction, will place rectal tube and follow up with you. PAUL in AM Discussed with nursing team. <Donta Sanchez - Last Filed: 07/30/18 16:24>
--- NOTE | 2018-07-30 15:15 | XR ---
EXAM DATE: 07/30/2018 3:12 PM EST AGE/SEX: 63 years / Male INDICATIONS: Fracture. CLINICAL DATA: This is the patient's subsequent encounter. Patient reports that signs and symptoms h ave been present for 1 week and indicates a pain score of Nonresponsive. MEDICAL/SURGICAL HISTORY: Non-responsive. Non-responsive. COMPARISON: [facility] – [place], ELBOW COMPLETE LEFT 4V, 07/08/2018. . FINDINGS: There is overlying cast material obscuring some of the bony detail. The previously noted fracture inv olving the olecranon process is not well-visualized on today's study. There is good alignment at the elbow joint. CONCLUSION: Good alignment and position of the bony structures. Electronically signed by: Bear Cope MD Board Certified Radiologist 07/30/2018 3:14 PM EST
[2018-07-30] MEDS ORDERED: Potassium Chlor 10 mEq Premix 10 MEQ/100 ML PIGGYBACK IV.SIG ONE (16:00)
--- NOTE | 2018-07-30 16:51 | P.PNCA ---
Subjective Interval history: Patient denies any CP, pressure, palpitations, dizziness, edema or SOB. Patient states he is fine. Medications and Allergies Allergies Allergy/AdvReac Type Severity Reaction Status Date / Time No Known Allergies Allergy Verified 07/08/18 12:30 Home Medications Medication Instructions Recorded Confirmed Type No Known Home Medications 07/08/18 07/08/18 History Active Medications: Active Medications Albuterol (Duoneb Neb (Lynda)) 1 ampul NEB Q6HR NEB [facility] Last Admin: 07/30/18 15:30 Dose: 1 ampul Albuterol (Duoneb Neb (Prn)) 1 ampul NEB Q2HR NEB PRN PRN Reason: SHORTNESS OF BREATH/WHEEZING Chlordiazepoxide (Librium) 10 mg G-TUBE Q8H PRN PRN Reason: anxiety/withdrawal Chlorhexidine Gluconate (Peridex 0.12% Oral Kit) 15 ml OROPHARYNG BID@0800, 2000 [facility] Last Admin: 07/30/18 08:58 Dose: Not Given Dextrose (D50w Vial) 50 ml IV.PUSH UNSCH PRN PRN Reason: PER HYPOGLYCEMIA PROTOCOL Flumazenil (Romazecon Inj) 0.2 mg IV.PUSH Q1M PRN PRN Reason: OVERSEDATION Glucagon (Glucagon Inj) 1 mg OTHER PRN PRN PRN Reason: for Hypoglycemia Protocol Haloperidol Lactate (Haldol Inj) 1 mg IV.PUSH Q15M PRN PRN Reason: for severe agitation Last Admin: 07/21/18 21:43 Dose: 1 mg Hydralazine HCl (Apresoline Inj) 20 mg IV.PUSH Q4H PRN PRN Reason: Sys Bp Greater Than 165 [facility] Last Admin: 07/24/18 12:20 Dose: 20 mg Piperacillin/Tazobactam/Dextrose (Zosyn 4.5 Gm Premix) 4.5 gm in 100 mls @ 200 mls/hr IV.SIG Q6H [facility] Last Admin: 07/30/18 16:38 Dose: 200 mls/hr Dextrose/Sodium Chloride (D5w/1/2 Ns Inj) 1,000 mls @ 50 mls/hr IV.CONT .Q20H [facility] Last Infusion: 07/30/18 13:40 Dose: Infused Potassium Chloride (Kcl 10 Meq Premix Inj) 10 meq in 100 mls @ 100 mls/hr IV.SIG ONCE ONE Stop: 07/30/18 16:59 Insulin Aspart (Novolog Insulin Correctional Sugar Inj) 0 unit SQ [facility]; Protocol Last Admin: 07/30/18 16:39 Dose: Not Given Lactulose (Lactulose Liq) 30 ml G-TUBE DAILY PRN PRN Reason: SEVERE CONSITIPATION Lactulose (Lactulose Liq) 45 ml G-TUBE TID [facility] Last Admin: 07/30/18 12:07 Dose: Not Given Methylnaltrexone [place] (Relistor) 12 mg SQ ONCE ONE Stop: 07/30/18 17:01 Metoclopramide HCl (Reglan) 10 mg G-TUBE ACHS [facility] Last Admin: 07/30/18 16:39 Dose: Not Given Metoprolol Tartrate (Lopressor Inj) 2.5 mg IV.PUSH Q6H PRN PRN Reason: BLOOD PRESSURE MANAGEMENT Miscellaneous Medication () 1 each OROPHARYNG 0000,0400,1200,1600 [facility] Last Admin: 07/30/18 15:31 Dose: Not Given Morphine Sulfate (Morphine Inj) 2 mg IV.PUSH Q4H PRN PRN Reason: BREAKTHROUGH PAIN Last Admin: 07/30/18 16:39 Dose: 2 mg Mupirocin (Bactroban 2% Nasal Oint) 1 applicatio EACH NARE BID [facility] Last Admin: 07/30/18 08:58 Dose: 1 applicatio Naloxone HCl (Narcan Inj) 0.4 mg IV.PUSH UNSCH PRN PRN Reason: SEE LABEL COMMENTS Ondansetron HCl (Zofran Inj) 4 mg IV.PUSH Q6H PRN PRN Reason: n/v/ if unable PO Ondansetron HCl (Zofran Odt) 4 mg SL Q4H PRN PRN Reason: nausea/vomiting Rifaximin (Xifaxan) 550 mg PO Q12HR [facility] Last Admin: 07/30/18 08:59 Dose: 550 mg Sennosides (Senokot) 17.2 mg G-TUBE Q12H PRN PRN Reason: Moderate Constipation Sodium Chloride (Ns Flush) 2 ml IV.FLUSH PRN PRN PRN Reason: FLUSH AFTER USING IV ACCESS Last Admin: 07/20/18 20:10 Dose: 2 ml Sodium Chloride (Ns Flush) 2 ml IV.FLUSH BID [facility] Last Admin: 07/30/18 08:58 Dose: Not Given Sterile Water (Free Water) 400 ml G-TUBE Q8H [facility] Physical Exam Vital signs: Vital Signs 07/29/18 20:00 07/29/18 20:51 07/29/18 22:00 Temperature 97.5 F L Pulse Rate 96 H 94 H Respiratory Rate 18 16 Blood Pressure 111/68 Pulse Oximetry 93 L 92 L 94 L 07/30/18 00:00 07/30/18 03:00 07/30/18 04:00 Temperature 98.1 F 97.6 F Pulse Rate 96 H 80 90 Respiratory Rate 19 20 18 Blood Pressure 109/53 L 119/57 L Pulse Oximetry 97 93 L 07/30/18 08:00 07/30/18 12:00 07/30/18 15:32 Temperature 97.2 F L 97.2 F L Pulse Rate 87 88 88 Respiratory Rate 16 18 18 Blood Pressure 109/59 L 105/61 Pulse Oximetry 94 L 92 L 07/30/18 15:33 07/30/18 16:00 Temperature 97.6 F Pulse Rate 91 H Respiratory Rate 18 Blood Pressure 104/66 Pulse Oximetry 92 L 94 L Intake & Output 07/29/18 07/30/18 07/30/18 18:59 06:59 18:59 Intake Total 461.5 / 461.5 260 / 260 1100 / 1100 Output Total 0 / 0 Balance 461.5 / 461.5 260 / 260 1100 / 1100 Weight 59.9 kg Intake: IV 461.5 / 461.5 200 / 200 1100 / 1100 D5W/1/2 NS Inj 1,000 ML @ 50 1000 / 1000 mls/hr IV.CONT .Q20H [facility] Rx#: [id number] Zosyn 4.5 GM Premix 4.5 gm In 200 / 200 200 / 200 100 / 100 100 ml @ 200 mls/hr IV.SIG Q6H [facility] Rx#:[id number] Vancomycin Inj 1,150 MG In NS 261.5 / 261.5 Inj 250 ML @ 250 mls/hr IV.SIG Q24H [facility] Rx#:[id number] Oral 0 / 0 Water Bolus Amount 60 / 60 Output: Stool 0 / 0 Chest Tube Drainage 0 / 0 Right 0 / 0 Other: # Voids 3 # Incontinent Voids 1 # Urine Diapers 4 1 Date of Last Bowel Movement 06/29/18 07/30/18 07/30/18 # Bowel Movements 1 1 # Incontinent Bowel Movements 1 1 - Constitutional no acute distress - Routine HEENT Exam Head: Present: normocephalic ENT: Present: mucous membranes moist Comments: chronic dilated left pupil. - Routine Neck Exam Present: supple - Routine Respiratory Exam Present: decreased breath sounds - Routine Cardiovascular Exam Present: S1, S2, irregular rhythm. Absent: murmur - Routine Abdominal Exam Present: normoactive bowel sounds - Routine Extremities Exam Present: full ROM, pulses intact, normal capillary refill. Absent: cyanosis, clubbing, edema - Routine Skin Exam Present: intact - Routine Neurological Exam Present: altered mental status, moving all extremities - Detailed Neurological Exam: Coma Scale Eye Opening: To sound Verbal Response: Confused Motor Response: Obey commands [place] Coma Scale Total: 13 - Routine Psychiatric Exam Present: unable to assess - Urinary Catheter Management Indwelling Urethral Catheter Cath placed during this visit: yes, but has since been removed by the nurse Reason for continuing: Decision to DC catheter Insertion date: 07/12/18 Insertion time: 07:45 Removal date: 07/19/18 Removal time: 10:45 Condom Cath placed during this visit: yes Urethral indwelling: No Reason for continuing: Not indwelling catheter Insertion date: 07/19/18 Insertion time: 10:50 Results 07/30/18 05:18 07/30/18 05:18 Cardiac Enzymes 07/30/18 Range/Units 05:18 AST 119 H (15-37) U/L CBC 07/30/18 Range/Units 05:18 WBC 14.0 H (4.0-11.0) th/mm3 RBC 2.59 L (4.50-5.90) mil/mm3 Hgb 8.9 L (13.0-17.0) gm/dL Hct 26.3 L (39.0-51.0) % Plt Count 118 L (150-450) th/mm3 Neut # (Auto) 11.2 H (1.8-7.7) th/mm3 Lymph # (Auto) 1.0 (1.0-4.8) th/mm3 [place] # (Auto) 1.6 H (0.0-0.9) th/mm3 Eos # (Auto) 0.1 (0.0-0.4) th/mm3 Baso # (Auto) 0.1 (0.0-0.2) th/mm3 Comprehensive Metabolic Panel 07/30/18 Range/Units 05:18 Sodium 146 H D (136-145) meq/L Potassium 3.4 L D (3.5-5.1) meq/L Chloride 111 H D (98-107) meq/L Carbon Dioxide 25.9 (21.0-32.0) meq/L BUN 62 H (7-18) mg/dL Creatinine 1.85 H (0.60-1.30) mg/dL Calcium 7.9 L D (8.5-10.1) mg/dL Direct Bilirubin 17.9 H (0.0-0.2) mg/dL AST 119 H (15-37) U/L ALT 90 H (12-78) U/L Alkaline Phosphatase 180 H (45-117) U/L Total Protein 5.4 L D (6.4-8.2) g/dL Albumin 1.9 L (3.4-5.0) g/dL Intake and Output 07/30/18 07/30/18 07/30/18 06:59 14:59 22:59 Intake Total 260 / 260 1100 / 1100 Output Total 0 / 0 Balance 260 / 260 1100 / 1100 Intake: IV 200 / 200 1100 / 1100 D5W/1/2 NS Inj 1,000 ML @ 50 1000 / 1000 mls/hr IV.CONT .Q20H [facility] Rx#: [id number] Zosyn 4.5 GM Premix 4.5 gm In 200 / 200 100 / 100 100 ml @ 200 mls/hr IV.SIG Q6H [facility] Rx#:[id number] Oral 0 / 0 Water Bolus Amount 60 / 60 Output: Stool 0 / 0 Chest Tube Drainage 0 / 0 Right 0 / 0 Other: # Incontinent Voids 1 # Urine Diapers 4 1 Date of Last Bowel Movement 07/30/18 07/30/18 # Bowel Movements 1 # Incontinent Bowel Movements 1 1 Weight 59.9 kg - Imaging and Cardiology Imaging: Impressions Chest X-Ray 07/29/18 00:00 CONCLUSION: 1. No significant change in the bilateral infiltrates (right worse than left). 2. Mild stable cardiomegaly. Liver Ultrasound 07/29/18 00:00 CONCLUSION: 1. Mild gallbladder wall thickening. If there is clinical concern for cholecystitis, a hepatobiliary scan may be helpful to confirm cystic duct obstruction. 2. Enlarged fatty liver. 3. Some ascites along the edge of the liver and spleen. 4. Echogenic right kidney suggesting possible medical renal disease. 5. Poor visualization of the pancreas due to shadowing bowel gas. Abdomen X-Ray 07/30/18 00:00 CONCLUSION: Slight worsening in colonic distention Elbow X-Ray 07/30/18 00:00 CONCLUSION: Good alignment and position of the bony structures. Assessment and Plan - Assessment (1) Chest pain Code(s): R07.9 - Chest pain, unspecified Status: Acute (2) Elevated troponin level Code(s): R74.8 - Abnormal levels of other serum enzymes Status: Acute (3) Liver failure Code(s): K72.90 - Hepatic failure, unspecified without coma Status: Acute (4) Hyperbilirubinemia Code(s): E80.6 - Other disorders of bilirubin metabolism Status: Acute - Plan There have been no new cardiac issues noted at this time. We will continue with current cardiac treatment plan. Neurology evaluation in progress, MS still severely impaired. Patient is jaundiced and has elevated liver enzymes, GI evaluation in progress. We will continue to monitor patient during hospitalization. Recommend hospice evaluation. The patient was seen and evaluated by Dr. Gonzalez who participated in care, management and decision making. - Attending Attestation Patient seen and examined. I reviewed and agree with the evaluation and plan as presented. Continue current program. Recommend hospice evaluation.
[2018-07-30] MEDS ORDERED: Methylnaltrexone Inj 12 MG/0.6 ML Vial SQ ONE (17:00)
--- NOTE | 2018-07-30 19:37 | P.PNPL ---
Subjective Interval history: 63 YOWM with RF, increased liver enzymes has pulm congestion o hemoptysis Tolerates TF no fever Physical Exam Vital signs: Vital Signs 07/29/18 20:00 07/29/18 20:51 07/29/18 22:00 Temperature 97.5 F L Pulse Rate 96 H 94 H Respiratory Rate 18 16 Blood Pressure 111/68 Pulse Oximetry 93 L 92 L 94 L 07/30/18 00:00 07/30/18 03:00 07/30/18 04:00 Temperature 98.1 F 97.6 F Pulse Rate 96 H 80 90 Respiratory Rate 19 20 18 Blood Pressure 109/53 L 119/57 L Pulse Oximetry 97 93 L 07/30/18 08:00 07/30/18 12:00 07/30/18 15:32 Temperature 97.2 F L 97.2 F L Pulse Rate 87 88 88 Respiratory Rate 16 18 18 Blood Pressure 109/59 L 105/61 Pulse Oximetry 94 L 92 L 07/30/18 15:33 07/30/18 16:00 Temperature 97.6 F Pulse Rate 91 H Respiratory Rate 18 Blood Pressure 104/66 Pulse Oximetry 92 L 94 L Intake & Output 07/30/18 07/30/18 07/31/18 06:59 18:59 06:59 Intake Total 260 / 260 1200 / 1200 Output Total 0 / 0 Balance 260 / 260 1200 / 1200 Weight 59.9 kg Intake: IV 200 / 200 1200 / 1200 D5W/1/2 NS Inj 1,000 ML @ 50 1000 / 1000 mls/hr IV.CONT .Q20H [facility] Rx#: [id number] Zosyn 4.5 GM Premix 4.5 gm In 200 / 200 200 / 200 100 ml @ 200 mls/hr IV.SIG Q6H [facility] Rx#:[id number] Oral 0 / 0 Water Bolus Amount 60 / 60 Output: Stool 0 / 0 Chest Tube Drainage 0 / 0 Right 0 / 0 Other: # Incontinent Voids 4 # Urine Diapers 4 1 Date of Last Bowel Movement 07/30/18 07/30/18 # Bowel Movements 1 # Incontinent Bowel Movements 1 3 GENERAL: Elderly WM, NAD SKIN: Warm and dry. HEAD: Normocephalic. EYES:scleral icterus. No injection or drainage. NECK: Supple, trachea midline. No JVD or lymphadenopathy. CARDIOVASCULAR: Regular rate and rhythm without murmurs, gallops, or rubs. RESPIRATORY: Breath sounds equal bilaterally. No accessory muscle use. GASTROINTESTINAL: Abdomen soft, non-tender, nondistended. MUSCULOSKELETAL: No cyanosis, or edema. BACK: Nontender without obvious deformity. No CVA tenderness. - Urinary Catheter Management Indwelling Urethral Catheter Cath placed during this visit: yes, but has since been removed by the nurse Reason for continuing: Decision to DC catheter Insertion date: 07/12/18 Insertion time: 07:45 Removal date: 07/19/18 Removal time: 10:45 Condom Cath placed during this visit: yes Urethral indwelling: No Reason for continuing: Not indwelling catheter Insertion date: 07/19/18 Insertion time: 10:50 Assessment and Plan - Plan IMPRESSION: 1. Methicillin-resistant Staphylococcus aureus. 2. Urinary tract infection. 3. Sepsis. 4. Hemoptysis. 5. Respiratory distress status post extubation. 6. Increased liver enzymes. 7. Thrombocytopenia. 8. The patient is homeless. 9. Nicotine use. 10. Alcohol use. PLAN: Supplement 02 Oropharyngeal suction NT suction/nasal trumpet if needed Tube feeding monitor Lytes monitor Plt count Protonix 40 mg IV daily
--- NOTE | 2018-07-30 21:25 | MR ---
EXAM DATE: 07/30/2018 9:10 PM EST AGE/SEX: 63 years / Male INDICATIONS: Obstruction. CLINICAL DATA: This is the patient's initial encounter. Patient reports that signs and symptoms have been present for 1 day and indicates a pain score of 7/10. MEDICAL/SURGICAL HISTORY: Hypertension. . Foot sx., Gastric tube. COMPARISON: No prior exams available for comparison. TECHNIQUE: Multiplanar, multisequence images of the abdomen were obtained without contrast including dedicated cholangiographic images. FINDINGS: Liver: The liver is homogeneous and normal in signal intensity with no focal defects. Intrahepatic Bile Ducts: There is no intrahepatic biliary ductal dilatation. Common Bile Duct: The common bile duct is normal in caliber, measuring 6 mm. No filling defects or o bstructing lesions are identified. Gallbladder: Smooth margins to the gallbladder. No intraluminal filling defects. There is pericholec ystic fluid which is in continuity with the ascites. Pancreas: The pancreas appears normal in signal with no focal parenchymal abnormalities. The pancrea tic duct is normal in caliber with no filling defects, or obstructing lesions identified. Other: Large bilateral pleural effusions. Percutaneous gastrostomy tube causes some field distortion of the upper abdominal images. Moderate amount of abdominal peritoneal ascites.. CONCLUSION: 1. No intraluminal defects in the gallbladder or common bile duct. 2. Prominent amount of ascites and large bilateral pleural effusions. Percutaneous gastrostomy in pl jo ann. Electronically signed by: Ry Pham MD Board Certified Radiologist 07/30/2018 9:23 PM EST
[2018-07-31] MEDS: Oral Hygiene Kit OROPHARYNG SCH ×4 (01:08→16:53)
[2018-07-31] MEDS: Morphine Inj 4 MG/ML Vial IV.PUSH PRN ×2 (03:22→15:52)
[2018-07-31] MEDS: Piperacil/Tazo 4.5 GM Premix 4.5 GM/100 ML BAG IV.SIG SCH ×4 (03:22→23:00)
[2018-07-31] MEDS: Dextrose 5%/NaCl 0.45% Inj 1,000 ML IV.CONT SCH (05:48)
[2018-07-31 06:56] LABS: Baso # (Auto) 0.1 th/mm3 (0.0-0.2); Baso % (Auto) 0.8 % (0.0-2.0); Eos # (Auto) 0.3 th/mm3 (0.0-0.4); Eos % (Auto) 2.1 % (0.0-4.0); Hematocrit 29.3 % (39.0-51.0); Lymph # (Auto) 1.1 th/mm3 (1.0-4.8); Lymph % (Auto) 7.4 % (9.0-44.0); Mean Corpuscular HGB Conc 34.2 % (32.0-36.0); Mean Corpuscular Hemoglobin 34.9 pg (27.0-34.0); Mean Corpuscular Volume 101.9 fL (80.0-100.0); Mean Platelet Volume 11.4 fL (7.0-11.0); Mono # (Auto) 1.4 th/mm3 (0.0-0.9); Mono % (Auto) 9.4 % (0.0-8.0); Neut % (Auto) 80.3 % (16.0-70.0); Platelet Count 121 th/mm3 (150-450); Red Blood Count 2.87 mil/mm3 (4.50-5.90); Red Cell Distribution Width 19.6 % (11.6-17.2); White Blood Count 14.9 th/mm3 (4.0-11.0)
[2018-07-31 07:29] LABS: Alanine Aminotransferase 87 U/L (12-78); Albumin 1.7 g/dL (3.4-5.0); Alkaline Phosphatase 172 U/L (45-117); Anion Gap 9 meq/L (5-15); Aspartate Aminotransferase 112 U/L (15-37); Blood Urea Nitrogen 48 mg/dL (7-18); Calcium 7.6 mg/dL (8.5-10.1); Carbon Dioxide 28.4 meq/L (21.0-32.0); Chloride 112 meq/L (98-107); Glomerular Filtration Rate 42 mL/min (>89); Glucose,Random 115 mg/dL (74-106); Magnesium 2.9 mg/dL (1.5-2.5); Potassium 3.2 meq/L (3.5-5.1); Sodium 149 meq/L (136-145); Total Protein 5.5 g/dL (6.4-8.2)
[2018-07-31] MEDS: Mupirocin 2% Nasal Oint Topical Syringe EACH NARE SCH ×2 (08:30→23:57)
[2018-07-31] MEDS: Chlorhexidine 0.12% Oral Kit 15 ML UDC OROPHARYNG SCH ×2 (08:30→23:57)
[2018-07-31] MEDS: Metoclopramide 10 MG Tablet G-TUBE SCH ×4 (08:30→23:44)
[2018-07-31] MEDS: rifAXIMin 550 MG Tablet PO SCH ×2 (08:30→23:45)
[2018-07-31] MEDS: Insulin NovoLOG Aspart Correctional Sugar Inj SQ SCH ×4 (08:30→23:58)
[2018-07-31] MEDS ORDERED: Potassium Chlor 20 mEq Premix 20 MEQ/100 ML PIGGYBACK IV.SIG ONE (09:00)
[2018-07-31] MEDS: Albumin Human 25% Inj 50 ML IV.SIG SCH ×2 (10:04→23:58)
[2018-07-31] MEDS: KCL 20 mEq/D5W/NaCl 0.45% Inj 1,000 ML IV.CONT SCH (10:04)
--- NOTE | 2018-07-31 11:20 | P.PNCA ---
Subjective Interval history: Patient is having a swallow evaluation at bedside at this time. Patient denies any CP, pressure, palpitations, dizziness, edema or SOB. Medications and Allergies Allergies Allergy/AdvReac Type Severity Reaction Status Date / Time No Known Allergies Allergy Verified 07/08/18 12:30 Home Medications Medication Instructions Recorded Confirmed Type No Known Home Medications 07/08/18 07/08/18 History Active Medications: Active Medications Albuterol (Duoneb Neb (Lynda)) 1 ampul NEB Q6HR NEB LYNDA Last Admin: 07/31/18 10:11 Dose: 1 ampul Albuterol (Duoneb Neb (Prn)) 1 ampul NEB Q2HR NEB PRN PRN Reason: SHORTNESS OF BREATH/WHEEZING Chlordiazepoxide (Librium) 10 mg G-TUBE Q8H PRN PRN Reason: anxiety/withdrawal Last Admin: 07/31/18 05:44 Dose: 10 mg Chlorhexidine Gluconate (Peridex 0.12% Oral Kit) 15 ml OROPHARYNG BID@0800, 2000 [facility] Last Admin: 07/31/18 08:30 Dose: Not Given Dextrose (D50w Vial) 50 ml IV.PUSH UNSCH PRN PRN Reason: PER HYPOGLYCEMIA PROTOCOL Flumazenil (Romazecon Inj) 0.2 mg IV.PUSH Q1M PRN PRN Reason: OVERSEDATION Furosemide (Lasix Inj) 20 mg IV.PUSH BID@0900,1800 [facility] Last Admin: 07/31/18 10:04 Dose: 20 mg Glucagon (Glucagon Inj) 1 mg OTHER PRN PRN PRN Reason: for Hypoglycemia Protocol Haloperidol Lactate (Haldol Inj) 1 mg IV.PUSH Q15M PRN PRN Reason: for severe agitation Last Admin: 07/21/18 21:43 Dose: 1 mg Hydralazine HCl (Apresoline Inj) 20 mg IV.PUSH Q4H PRN PRN Reason: Sys Bp Greater Than 165 Mmhg Last Admin: 07/24/18 12:20 Dose: 20 mg Piperacillin/Tazobactam/Dextrose (Zosyn 4.5 Gm Premix) 4.5 gm in 100 mls @ 200 mls/hr IV.SIG Q6H [facility] Last Infusion: 07/31/18 10:47 Dose: Infused Dextrose/Sodium Chloride (D5w/1/2 Ns Inj) 1,000 mls @ 50 mls/hr IV.CONT .Q20H [facility] Last Admin: 07/31/18 05:48 Dose: Not Given Metronidazole/Sodium Chloride (Flagyl 500 Mg Inj) 100 mls @ 100 mls/hr IV.SIG Q6H [facility] Last Admin: 07/31/18 10:04 Dose: 100 mls/hr Albumin Human (Flexbumin 25% Inj) 50 mls @ 60 mls/hr IV.SIG Q12H [facility] Last Infusion: 07/31/18 10:55 Dose: Infused Potassium Chloride/Dextrose/Sod Cl (D5w/1/2ns + Kcl 20 Meq Inj) 1,000 mls @ 50 mls/hr IV.CONT .Q20H [facility] Last Admin: 07/31/18 10:04 Dose: 50 mls/hr Insulin Aspart (Novolog Insulin Correctional Sugar Inj) 0 unit SQ [facility]; Protocol Last Admin: 07/31/18 08:30 Dose: Not Given Lactulose (Lactulose Liq) 30 ml G-TUBE DAILY PRN PRN Reason: SEVERE CONSITIPATION Lactulose (Lactulose Liq) 45 ml G-TUBE TID [facility] Last Admin: 07/31/18 08:29 Dose: 45 ml Metoclopramide HCl (Reglan) 10 mg G-TUBE ACHS [facility] Last Admin: 07/31/18 08:30 Dose: 10 mg Metoprolol Tartrate (Lopressor Inj) 2.5 mg IV.PUSH Q6H PRN PRN Reason: BLOOD PRESSURE MANAGEMENT Miscellaneous Medication () 1 each OROPHARYNG 0000,0400,1200,1600 [facility] Last Admin: 07/31/18 04:41 Dose: Not Given Morphine Sulfate (Morphine Inj) 2 mg IV.PUSH Q4H PRN PRN Reason: BREAKTHROUGH PAIN Last Admin: 07/31/18 03:22 Dose: 2 mg Mupirocin (Bactroban 2% Nasal Oint) 1 applicatio EACH NARE BID [facility] Last Admin: 07/31/18 08:30 Dose: 1 applicatio Naloxone HCl (Narcan Inj) 0.4 mg IV.PUSH UNSCH PRN PRN Reason: SEE LABEL COMMENTS Ondansetron HCl (Zofran Inj) 4 mg IV.PUSH Q6H PRN PRN Reason: n/v/ if unable PO Ondansetron HCl (Zofran Odt) 4 mg SL Q4H PRN PRN Reason: nausea/vomiting Rifaximin (Xifaxan) 550 mg PO Q12HR [facility] Last Admin: 07/31/18 08:30 Dose: 550 mg Sennosides (Senokot) 17.2 mg G-TUBE Q12H PRN PRN Reason: Moderate Constipation Sodium Chloride (Ns Flush) 2 ml IV.FLUSH PRN PRN PRN Reason: FLUSH AFTER USING IV ACCESS Last Admin: 07/20/18 20:10 Dose: 2 ml Sodium Chloride (Ns Flush) 2 ml IV.FLUSH BID [facility] Last Admin: 07/31/18 08:30 Dose: 2 ml Sterile Water (Free Water) 400 ml G-TUBE Q6HR [facility] Physical Exam Vital signs: Vital Signs 07/30/18 12:00 07/30/18 15:32 07/30/18 15:33 Temperature 97.2 F L Pulse Rate 88 88 Respiratory Rate 18 18 Blood Pressure 105/61 Pulse Oximetry 92 L 92 L 07/30/18 16:00 07/30/18 20:00 07/30/18 21:43 Temperature 97.6 F 97.3 F L Pulse Rate 91 H 86 91 H Respiratory Rate 18 20 20 Blood Pressure 104/66 119/63 Pulse Oximetry 94 L 95 07/31/18 00:00 07/31/18 03:17 07/31/18 04:00 Temperature 98.0 F 97.2 F L Pulse Rate 92 H 83 Respiratory Rate 17 18 16 Blood Pressure 128/77 122/72 Pulse Oximetry 94 L 98 07/31/18 07:48 07/31/18 07:59 07/31/18 10:13 Temperature 97.3 F L Pulse Rate 82 87 Respiratory Rate 18 20 18 Blood Pressure 120/56 L Pulse Oximetry 97 97 Intake & Output 07/30/18 07/31/18 07/31/18 18:59 06:59 18:59 Intake Total 1200 / 1200 300 / 300 150 / 150 Balance 1200 / 1200 300 / 300 150 / 150 Weight 59.1 kg Intake: IV 1200 / 1200 300 / 300 150 / 150 D5W/1/2 NS Inj 1,000 ML @ 50 1000 / 1000 mls/hr IV.CONT .Q20H [facility] Rx#: [id number] Flexbumin 25% Inj 50 ML @ 60 50 / 50 mls/hr IV.SIG Q12H [facility] Rx#: [id number] Zosyn 4.5 GM Premix 4.5 gm In 200 / 200 200 / 200 100 / 100 100 ml @ 200 mls/hr IV.SIG Q6H [facility] Rx#:[id number] KCl 10 mEq Premix Inj 10 meq In 100 / 100 100 ml @ 100 mls/hr IV.SIG ONCE ONE Rx#:[id number] Other: # Incontinent Voids 4 5 # Urine Diapers 1 Date of Last Bowel Movement 07/30/18 07/30/18 07/30/18 # Incontinent Bowel Movements 3 - Constitutional no acute distress - Routine HEENT Exam Head: Present: normocephalic ENT: Present: mucous membranes moist Comments: 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 Absent: murmur, gallop, rubs - Routine Abdominal Exam Present: normoactive bowel sounds Comments: Peg tube is leaking large amounts of yellow fluid - Routine Extremities Exam Present: full ROM, pulses intact, normal capillary refill. Absent: cyanosis, clubbing, edema - Routine Skin Exam Present: wounds Comments: right heal with large purple spot. - Routine Neurological Exam Present: alert, altered mental status, moving all extremities - Detailed Neurological Exam: Coma Scale Eye Opening: Spontaneous Verbal Response: Confused Motor Response: Obey commands [place] Coma Scale Total: 14 - Routine Psychiatric Exam Present: unable to assess - Urinary Catheter Management Indwelling Urethral Catheter Cath placed during this visit: yes, but has since been removed by the nurse Reason for continuing: Decision to DC catheter Insertion date: 07/12/18 Insertion time: 07:45 Removal date: 07/19/18 Removal time: 10:45 Condom Cath placed during this visit: yes Urethral indwelling: No Reason for continuing: Not indwelling catheter Insertion date: 07/19/18 Insertion time: 10:50 Results 07/31/18 06:27 07/31/18 06:27 Cardiac Enzymes 07/30/18 07/31/18 Range/Units 05:18 06:27 AST 119 H 112 H (15-37) U/L CBC 12/26/18 12/27/18 Range/Units 05:18 06:27 WBC 14.0 H 14.9 H (4.0-11.0) th/mm3 RBC 2.59 L 2.87 L (4.50-5.90) mil/mm3 Hgb 8.9 L 10.0 L (13.0-17.0) gm/dL Hct 26.3 L 29.3 L (39.0-51.0) % Plt Count 118 L 121 L (150-450) th/mm3 Neut # (Auto) 11.2 H 12.0 H (1.8-7.7) th/mm3 Lymph # (Auto) 1.0 1.1 (1.0-4.8) th/mm3 [place] # (Auto) 1.6 H 1.4 H (0.0-0.9) th/mm3 Eos # (Auto) 0.1 0.3 (0.0-0.4) th/mm3 Baso # (Auto) 0.1 0.1 (0.0-0.2) th/mm3 Comprehensive Metabolic Panel 07/30/18 07/31/18 Range/Units 05:18 06:27 Sodium 146 H D 149 H (136-145) meq/L Potassium 3.4 L D 3.2 L (3.5-5.1) meq/L Chloride 111 H D 112 H (98-107) meq/L Carbon Dioxide 25.9 28.4 (21.0-32.0) meq/L BUN 62 H 48 H (7-18) mg/dL Creatinine 1.85 H 1.68 H (0.60-1.30) mg/dL Calcium 7.9 L D 7.6 L (8.5-10.1) mg/dL Direct Bilirubin 17.9 H (0.0-0.2) mg/dL AST 119 H 112 H (15-37) U/L ALT 90 H 87 H (12-78) U/L Alkaline Phosphatase 180 H 172 H (45-117) U/L Total Protein 5.4 L D 5.5 L (6.4-8.2) g/dL Albumin 1.9 L 1.7 L (3.4-5.0) g/dL Intake and Output 07/30/18 07/31/18 07/31/18 22:59 06:59 14:59 Intake Total 200 / 200 200 / 200 150 / 150 Balance 200 / 200 200 / 200 150 / 150 Intake: IV 200 / 200 200 / 200 150 / 150 Flexbumin 25% Inj 50 ML @ 60 50 / 50 mls/hr IV.SIG Q12H [facility] Rx#: [id number] Zosyn 4.5 GM Premix 4.5 gm In 100 / 100 200 / 200 100 / 100 100 ml @ 200 mls/hr IV.SIG Q6H [facility] Rx#:[id number] KCl 10 mEq Premix Inj 10 meq In 100 / 100 100 ml @ 100 mls/hr IV.SIG ONCE ONE Rx#:[id number] Other: # Incontinent Voids 4 5 # Urine Diapers 1 Date of Last Bowel Movement 07/30/18 07/30/18 # Incontinent Bowel Movements 3 Weight 59.1 kg - Imaging and Cardiology Imaging: Impressions Chest X-Ray 07/29/18 00:00 CONCLUSION: 1. No significant change in the bilateral infiltrates (right worse than left). 2. Mild stable cardiomegaly. Liver Ultrasound 07/29/18 00:00 CONCLUSION: 1. Mild gallbladder wall thickening. If there is clinical concern for cholecystitis, a hepatobiliary scan may be helpful to confirm cystic duct obstruction. 2. Enlarged fatty liver. 3. Some ascites along the edge of the liver and spleen. 4. Echogenic right kidney suggesting possible medical renal disease. 5. Poor visualization of the pancreas due to shadowing bowel gas. Abdomen X-Ray 07/30/18 00:00 CONCLUSION: Slight worsening in colonic distention Cholangiopancreatography MRI 07/30/18 00:00 CONCLUSION: 1. No intraluminal defects in the gallbladder or common bile duct. 2. Prominent amount of ascites and large bilateral pleural effusions. Percutaneous gastrostomy in place. Elbow X-Ray 07/30/18 00:00 CONCLUSION: Good alignment and position of the bony structures. Assessment and Plan - Assessment (1) Chest pain Code(s): R07.9 - Chest pain, unspecified Status: Acute (2) Elevated troponin level Code(s): R74.8 - Abnormal levels of other serum enzymes Status: Acute (3) Liver failure Code(s): K72.90 - Hepatic failure, unspecified without coma Status: Acute (4) Hyperbilirubinemia Code(s): E80.6 - Other disorders of bilirubin metabolism Status: Acute - Plan No new cardiac issues noted at this time, we will continue with current cardiac treatment plan. Speech evaluation in progress. Patient is more alert today but MS is still severely impaired, neurology evaluation in progress. GI evaluation in progress due to elevated LFT's, jaundice and PEG tube. Pulmonary status slightly improved. We will continue to monitor patient during hospitalization. Overall prognosis remains poor. Recommend hospice evaluation. The patient was seen and evaluated by Dr. Gonzalez who participated in care, management and decision making. - Attending Attestation Patient seen and examined. I reviewed and agree with the evaluation and plan as presented. Continue current program. Recommend hospice evaluation and management.
[2018-07-31] MEDS ORDERED: Pharmacy Ordered Lab Info OTHER ONE (11:45)
--- NOTE | 2018-07-31 13:39 | P.PNIM ---
Subjective Interval history: Follow-up liver failure. Patient is awake complains of abdominal discomfort GT currently on suction discussed with nurse and sister as well as hospice nurse Physical Exam Vital signs: Last Vital Signs Temp 98.1 F 07/31/18 11:55 Pulse 91 H 07/31/18 11:55 Resp 20 07/31/18 11:55 BP 139/60 07/31/18 11:55 Pulse Ox 90 L 07/31/18 11:55 Intake & Output 07/29/18 07/30/18 07/31/18 08/01/18 06:59 06:59 06:59 06:59 Intake Total 550 / 550 721.5 / 721.5 1500 / 1500 350 / 350 Output Total 125 / 125 0 / 0 Balance 425 / 425 721.5 / 721.5 1500 / 1500 350 / 350 Weight 59.9 kg 59.9 kg 59.1 kg Narrative: GENERAL: 63 yo male appearing older, chronically ill SKIN: Warm and dry. Jaundiced Respiratory: Upper airway congestion CARDIOVASCULAR: Regular rate and rhythm without murmurs, gallops, or rubs. RESPIRATORY: Breath sounds coarse sounding. GASTROINTESTINAL: Abdomen soft, Leakage at the PEG tube site. Abd improving distention with diffuse tenderness. MUSCULOSKELETAL: No cyanosis, no edema. Neuro: alert, confused Urinary Catheter Management Indwelling Urethral Catheter: Cath placed during this visit: yes, but has since been removed by the nurse Insertion date: 07/12/18 Insertion time: 07:45 Removal date: 07/19/18 Removal time: 10:45 Condom: Cath placed during this visit: yes Urethral indwelling: No Insertion date: 07/19/18 Insertion time: 10:50 Results Labs CBC & Chem 7: 07/31/18 06:27 07/31/18 06:27 Labs: Microbiology 07/28/18 13:52 Blood - Peripheral Aerobic Blood Culture - Preliminary No growth in 3 days 07/28/18 13:52 Blood - Peripheral Anaerobic Blood Culture - Preliminary No growth in 3 days 07/28/18 13:57 Blood - Peripheral Aerobic Blood Culture - Preliminary No growth in 3 days 07/28/18 13:57 Blood - Peripheral Anaerobic Blood Culture - Preliminary No growth in 3 days Imaging Imaging: Impressions Cholangiopancreatography MRI 07/30/18 00:00 CONCLUSION: 1. No intraluminal defects in the gallbladder or common bile duct. 2. Prominent amount of ascites and large bilateral pleural effusions. Percutaneous gastrostomy in place. Elbow X-Ray 07/30/18 00:00 CONCLUSION: Good alignment and position of the bony structures. Procedures Procedures: PEG Assessment and Plan (1) Chest pain: Code(s): R07.9 - Chest pain, unspecified Status: Acute (2) Elevated troponin level: Code(s): R74.8 - Abnormal levels of other serum enzymes Status: Acute (3) Liver failure: Code(s): K72.90 - Hepatic failure, unspecified without coma Status: Acute (4) Hyperbilirubinemia: Code(s): E80.6 - Other disorders of bilirubin metabolism Status: Acute Plan Acute metabolic encephalopathy Anisocoria EtOH abuse Recent cocaine/opiate abuse -inhaled. Denies intravenous MVI/ folate. Patient states he inhaled cocaine 4-5 days prior to admission. Denies IV drug use. Discontinued acetaminophen and related products with elevated transaminases Stat CT of the head for unequal pupil, negative for acute findings Encephalopathy improved enough to allow extubation 07/18. Check ammonia level as needed due to encephalopathy. Resume lactulose following G-tube placement by IR CV: Severe sepsis Lactic acidosis Elevated troponin likely demand ischemia Right carotid artery stenosis Elevated CPK Cardiology Dr. chaudhry. No intervention planned 2D echocardiogram revealed Normal left ventricular size. Wall thickness is normal. The left ventricular systolic function is normal with an estimated ejection fraction in the range of 55-60%. Not on aspirin or heparin at this time due to thrombocytopenia Followed by vascular surgery for right carotid artery stenosis 80%. Resp: Acute hypoxemic respiratory failure Hospital-acquired pneumonia Emphysematous type changes on CT neck Hyperammonemia Hypoalbuminemia Tobacco abuse Emergently intubated and placed on mechanical ventilation. PRVC/AC 07/13/2018 Incentive spirometry. Extubated 07/18 Chest tube removed 07/19, chest x-ray after with the right lung well expanded. Consulted pulmonology IS/ Acapella, continue duonebs pulmonary drainage Continue treatment for hospital-acquired pneumonia with Zosyn GI: Elevated transaminases. Worse Elevated total bilirubin. Worse Liver failure Hypoalbuminemia Cirrhosis suspect Ascites Ileus vs constipation. Patient having loose stools Noted CT abdomen/pelvis revealed possible early cholecystitis. Pericholecystic fluid. Ultrasound revealed negative Lundy sign. Nuclear medicine scan revealed no activity in the intrahepatic ductal compound bile duct or small bowel. Cannot rule out common bile duct obstruction CT angiogram of the abdomen/pelvis revealed 20-30% stenosis of the SMA. Patent MIC, celiac. Hepatitis panel negative. Negative w/u - ceruloplasmin, BOBBY, AMA, ASMA, SSA AMB, anti-Ronquillo, RP, scleroderma, double-stranded DNA, hemochromatosis Currently on lactulose 45 mg 3 times a day and rifaximin Resume tube feeds once G-tube placed by IR Reconsulted GI, ultrasound with gallbladder thickening, KUB with worsening colonic distention MRCP with no intraluminal defects in the gallbladder or common bile duct. Repeat ammonia level within normal limits Start IV albumin with Lasix Endo: Sliding scale insulin with Accu-Cheks to maintain euglycemia/every 6 hours low regimen TSH 1. Cortisol 25 Glucose control acceptable Renal: Acute kidney failure. Worse Hypernatremia. Hypokalemia Avoid nephrotoxic medication. Discontinued vancomycin Convert fluid to D5 water with KCl 10 mEq/L. Increase free water Monitor and replete electrolytes Heme: Macrocytic anemia Thrombocytopenia Coagulopathic state Follow-up on PT/INR Platelet transfusion ordered prior to G-tube placement by IR ID: MRSA bacteremia Septic shock Pneumonia 2D transthoracic echocardiogram revealed no signs of endocarditis. Infectious disease following Currently on Zosyn MSK: Left posterior olecranon fracture Followed by Dr. Blanco, splint immobilized. FEN: Replace electrolytes as clinically indicated Access -Utilize peripheral IV. Prophylaxis -GI -pantoprazole -DVT-SCD/hold off chemical DVT prophylaxis due to severe thrombocytopenia, prolonged INR DC plan: Pending improvement and clearance by consultants. Might be a candidate for hospice discussed with [facility] hospice consulted Code status: DNR status. Palliative care following. Poor prognosis Progress Note: Quality VTE Deep Vein Thrombosis/Pulmonary Embolism Present on Admission: No _ (1) Chest pain Qualifiers: Chest pain type: Ischemic chest pain type: (2) Liver failure Qualifiers: Liver failure chronicity: Hepatic coma status:
--- NOTE | 2018-07-31 14:00 | P.PNGI ---
Subjective Interval history: Patient awake and alert Altered mental status Moderate leakage of biliary colored fluid around PEG tube site PEG tube to low intermittent wall suction Patient denies abdominal discomfort during exam Physical Exam Vital signs: Vital Signs 07/30/18 15:32 07/30/18 15:33 07/30/18 16:00 Temperature 97.6 F Pulse Rate 88 91 H Respiratory Rate 18 18 Blood Pressure 104/66 Pulse Oximetry 92 L 94 L 07/30/18 20:00 07/30/18 21:43 07/31/18 00:00 Temperature 97.3 F L 98.0 F Pulse Rate 86 91 H 92 H Respiratory Rate 20 20 17 Blood Pressure 119/63 128/77 Pulse Oximetry 95 94 L 07/31/18 03:17 07/31/18 04:00 07/31/18 07:48 Temperature 97.2 F L Pulse Rate 83 Respiratory Rate 18 16 18 Blood Pressure 122/72 Pulse Oximetry 98 07/31/18 07:59 07/31/18 10:13 07/31/18 11:55 Temperature 97.3 F L 98.1 F Pulse Rate 82 87 91 H Respiratory Rate 20 18 20 Blood Pressure 120/56 L 139/60 Pulse Oximetry 97 97 90 L Intake & Output 07/30/18 07/31/18 07/31/18 18:59 06:59 18:59 Intake Total 1200 / 1200 300 / 300 350 / 350 Balance 1200 / 1200 300 / 300 350 / 350 Weight 59.1 kg Intake: IV 1200 / 1200 300 / 300 350 / 350 D5W/1/2 NS Inj 1,000 ML @ 50 1000 / 1000 mls/hr IV.CONT .Q20H [facility] Rx#: [id number] Flexbumin 25% Inj 50 ML @ 60 50 / 50 mls/hr IV.SIG Q12H [facility] Rx#: [id number] Zosyn 4.5 GM Premix 4.5 gm In 200 / 200 200 / 200 100 / 100 100 ml @ 200 mls/hr IV.SIG Q6H [facility] Rx#:[id number] KCl 10 mEq Premix Inj 10 meq In 100 / 100 100 ml @ 100 mls/hr IV.SIG ONCE ONE Rx#:[id number] KCl 20 mEq Premix Inj 20 meq In 100 / 100 100 ml @ 50 mls/hr IV.SIG ONCE ONE Rx#:[id number] Flagyl 500 MG Inj 100 ML @ 100 100 / 100 mls/hr IV.SIG Q6H [facility] Rx#: [id number] Other: # Incontinent Voids 4 5 # Urine Diapers 1 Date of Last Bowel Movement 07/30/18 07/30/18 07/30/18 # Incontinent Bowel Movements 3 - Constitutional chronically ill appearing - Routine HEENT Exam Head: Present: normocephalic Eye: Present: conjunctival icterus - Routine Respiratory Exam Present: CTA bilaterally - Routine Cardiovascular Exam Present: RRR - Routine Abdominal Exam Present: distended. Absent: tenderness Comments: Distant bowel sounds present - Routine Extremities Exam Absent: edema - Routine Skin Exam Present: dry, warm, jaundice - Routine Neurological Exam Present: alert, altered mental status - Urinary Catheter Management Indwelling Urethral Catheter Cath placed during this visit: yes, but has since been removed by the nurse Reason for continuing: Decision to DC catheter Insertion date: 07/12/18 Insertion time: 07:45 Removal date: 07/19/18 Removal time: 10:45 Condom Cath placed during this visit: yes Urethral indwelling: No Reason for continuing: Not indwelling catheter Insertion date: 07/19/18 Insertion time: 10:50 Results - Labs CBC & Chem 7: 07/31/18 06:27 07/31/18 06:27 Laboratory Results - last 24 hr 07/30/18 07/30/18 07/31/18 16:39 22:22 00:46 WBC RBC Hgb Hct MCV MCH MCHC RDW Plt Count MPV Neut % (Auto) Lymph % (Auto) [place] % (Auto) Eos % (Auto) Baso % (Auto) Neut # (Auto) Lymph # (Auto) [place] # (Auto) Eos # (Auto) Baso # (Auto) WBC Differential Differential Comment Sodium Potassium Chloride Carbon Dioxide Anion Gap BUN Creatinine Estimated GFR POC Glucose 138 H 107 134 H Random Glucose Calcium Magnesium Total Bilirubin AST ALT Alkaline Phosphatase Total Protein Albumin 07/31/18 07/31/18 07/31/18 05:56 06:27 06:27 WBC 14.9 H RBC 2.87 L Hgb 10.0 L Hct 29.3 L MCV 101.9 H MCH 34.9 H MCHC 34.2 RDW 19.6 H Plt Count 121 L MPV 11.4 H Neut % (Auto) 80.3 H Lymph % (Auto) 7.4 L [place] % (Auto) 9.4 H Eos % (Auto) 2.1 Baso % (Auto) 0.8 Neut # (Auto) 12.0 H Lymph # (Auto) 1.1 [place] # (Auto) 1.4 H Eos # (Auto) 0.3 Baso # (Auto) 0.1 WBC Differential . Differential Comment Auto diff final Sodium 149 H Potassium 3.2 L Chloride 112 H Carbon Dioxide 28.4 Anion Gap 9 BUN 48 H Creatinine 1.68 H Estimated GFR 42 L POC Glucose 132 H Random Glucose 115 H Calcium 7.6 L Magnesium 2.9 H Total Bilirubin 20.7 H AST 112 H ALT 87 H Alkaline Phosphatase 172 H Total Protein 5.5 L Albumin 1.7 L 07/31/18 07/31/18 08:28 11:35 WBC RBC Hgb Hct MCV MCH MCHC RDW Plt Count MPV Neut % (Auto) Lymph % (Auto) [place] % (Auto) Eos % (Auto) Baso % (Auto) Neut # (Auto) Lymph # (Auto) [place] # (Auto) Eos # (Auto) Baso # (Auto) WBC Differential Differential Comment Sodium Potassium Chloride Carbon Dioxide Anion Gap BUN Creatinine Estimated GFR POC Glucose 103 101 Random Glucose Calcium Magnesium Total Bilirubin AST ALT Alkaline Phosphatase Total Protein Albumin Microbiology 07/28/18 13:52 Blood - Peripheral Aerobic Blood Culture - Preliminary No growth in 3 days 07/28/18 13:52 Blood - Peripheral Anaerobic Blood Culture - Preliminary No growth in 3 days 07/28/18 13:57 Blood - Peripheral Aerobic Blood Culture - Preliminary No growth in 3 days 07/28/18 13:57 Blood - Peripheral Anaerobic Blood Culture - Preliminary No growth in 3 days - Imaging Impressions Cholangiopancreatography MRI 07/30/18 00:00 CONCLUSION: 1. No intraluminal defects in the gallbladder or common bile duct. 2. Prominent amount of ascites and large bilateral pleural effusions. Percutaneous gastrostomy in place. Elbow X-Ray 07/30/18 00:00 CONCLUSION: Good alignment and position of the bony structures. - Procedures PEG Assessment and Plan (1) Liver failure Status: Acute Code(s): K72.90 - Hepatic failure, unspecified without coma (2) Hyperbilirubinemia Status: Acute Code(s): E80.6 - Other disorders of bilirubin metabolism - Plan Assessment: - Elevated LFTs with findings indicative of cirrhosis likely alcohol related Worsening hyperalbuminemia, liver failure Worsening bili could be secondary to hepatic dysfunction and liver failure No hx IV drug use, or tattoos or any high risk sexual behaviors. No family history of liver issues. Hx of cocaine. Hx of sixpack of beer daily. Liver work up: BOBBY, ASMA, AMA negative, Ceruloplasmin 24. AAT 215. AFP-3.7. Iron-123 TIBC-217 %sat-56.7 Ferritin-9759, Hfe negative Hepatitis panel negative. 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 The SMA and MIC are patent. Hepatic steatosis. HIDA (07/09/18) No activity in intrahepatic ducts, common duct or small bowel. Considerations include include acute obstruction of the common duct and diffuse hepatocellular disease. CT scan shows no dilatation of the common duct or intrahepatic ducts. Diffuse hepatocellular disease is suspected. Given history of cirrhosis, exam is unreliable, do not suspect acute cholecystitis. US gallbladder (07/08/18) Small, nonspecific pericholecystic fluid without stones, wall thickening or sonographic Lundy's sign. The fluid may be on the basis of hepatocellular disease. The ultrasound does not support acute cholecystitis. Fatty infiltrated and mildly enlarged liver. - Ileus- Per nurse, pt had good Bm last night Abdomen X-Ray 07/28/18 1. Gastrostomy catheter in place. 2. Stable bowel gas pattern with mild to moderate colonic stool and marginal distention of the transverse colon. Differential considerations include constipation versus mild developing colonic ileus - Anemia- No bleeding reported, no EGD or colonoscopy in the past. - Coagulopathy, thrombocytopenia, hypoalbuminemia- in setting of cirrhosis - MRSA bacteremia- ID following, abx - Elevated troponin levels- Cardiology following - S/P PEG tube placement by IR 07/22/18 07/30/2018 Gastrostomy tube noted Moderate amount of bilious drainage seeping from PEG tube site-no bleeding noted or reported Abdomen distended 07/29/2018 liver ultrasound revealed the following--. Mild gallbladder wall thickening. If there is clinical concern for cholecystitis , a hepatobiliary scan may be helpful to confirm cystic duct obstruction. Enlarged fatty liver. Some ascites along the edge of the liver and spleen. Echogenic right kidney suggesting possible medical renal disease. Poor visualization of the pancreas due to shadowing bowel gas. 07/30/2018 KUB revealed the following-- Gastrostomy tube noted. Moderate gaseous distention of colon, primarily the proximal colon which appears slightly worse than on previous exam. Cecum is dilated to greater than 9 cm. 07/30/2018 WBC 14.0 hemoglobin 8.9 hematocrit 26.3 platelet count 118 Total bilirubin 21 AST 119 ALT 90 alk phos 180 trending down 07/29/2018 ammonia level 30 07/31/2018 Gastrostomy tube noted Moderate amount of bilious drainage seeping from PEG tube site-no bleeding noted Abdomen less distended 800 mL's of bilious drainage noted in collection container, staff nurse reports collection total since 5 PM yesterday States patient having small amounts of loose stool WBC 14.9 hemoglobin 10.0 hematocrit 29.3 platelet count 121 Total bilirubin 20.7 AST 112 ALT 87 alk phos 172 07/30/2018 MRCP revealed the following findings-. No intraluminal defects in the gallbladder or common bile duct. Prominent amount of ascites and large bilateral pleural effusions. Percutaneous gastrostomy in place. Plan Hold G-tube feedings G-tube to low intermittent wall suction Spironolactone 100 mg p.o. daily Monitor labs; lipase, ammonia and LFTs, CBC Lactulose, Reglan and Xifaxan Supportive care This patient has been seen by myself and Dr. Medrano and this note is written on his behalf - Attending Attestation Dr. Medrano
--- NOTE | 2018-07-31 17:49 | P.PNPAL ---
Reason for Visit Reason for visit: a. To assist with evaluation and management of symptoms including: Agitation; encephalopathy b. To assist medical decision maker(s) with: better understanding of current medical conditions; weighing benefits/burdens of medical treatment options; making medical treatment decisions. . Subjective Subjective/Interval History: Mr. Sharma is a 63 y/o male with a long history of homelessness; EtOH abuse; and tobacco abuse who presented to the emergency department at [facility] on 07/08/18 primarily complaining of nausea, chest pain, and a near syncopal episode. He also reported that he had fallen out of bed approximately a week earlier and had struck his left elbow and was concerned it might be broken. Per the emergency department clinicians note, the patient was a poor historian. Patient is seen today for agitation and encephalopathy as well as goals of medical treatment. He is seen today worse than prior visits, more confused with worsening jaundice. On 07/08, his bilirubin was 3.4. In spite of maximum medical treatment, his bilirubin has now risen to 20.7. On admission 07/08 his MELD score was 18, and currently it has risen to 30 equating to a 30% 30-day mortality and a 58% 90-day mortality. Patient has a long history of alcoholism showing admissions for alcohol intoxication as far back as 2010. Liver enzyme elevation started to be noted in 2017. His body is no longer processing tube feeding and required to have the PEG tube placed to suction drainage. GI states he may now need a decompressive colonoscopy. This appears to be end- stage liver disease with more progressive complications. He remains encephalopathic, lying in bed, not following direction, not oriented , not tracking. Does not respond to his name or answer questions. . Family/Friend Interactions: No family at bedside. Pending determination of Medicaid eligibility for placement in hospice. . Advance Directives Documented care wishes:: No written documentation of healtchare wishes/preferences . Objective Vital Signs: Vital Signs 07/30/18 20:00 07/30/18 21:43 07/31/18 00:00 Temperature 97.3 F L 98.0 F Pulse Rate 86 91 H 92 H Respiratory Rate 20 20 17 Blood Pressure 119/63 128/77 Pulse Oximetry 95 94 L 07/31/18 03:17 07/31/18 04:00 12/27/18 07:48 Temperature 97.2 F L Pulse Rate 83 Respiratory Rate 18 16 18 Blood Pressure 122/72 Pulse Oximetry 98 07/31/18 07:59 07/31/18 10:13 07/31/18 11:55 Temperature 97.3 F L 98.1 F Pulse Rate 82 87 91 H Respiratory Rate 20 18 20 Blood Pressure 120/56 L 139/60 Pulse Oximetry 97 97 90 L 07/31/18 16:00 07/31/18 16:16 07/31/18 16:41 Temperature 97.1 F L Pulse Rate 96 H 92 H Respiratory Rate 20 18 18 Blood Pressure 139/64 Pulse Oximetry 92 L Intake & Output 07/30/18 07/31/18 07/31/18 18:59 06:59 18:59 Intake Total 1200 / 1200 300 / 300 450 / 450 Balance 1200 / 1200 300 / 300 450 / 450 Weight 130 lb 4.691 oz Intake: IV 1200 / 1200 300 / 300 450 / 450 D5W/1/2 NS Inj 1,000 ML @ 50 1000 / 1000 mls/hr IV.CONT .Q20H [facility] Rx#: [id number] Flexbumin 25% Inj 50 ML @ 60 50 / 50 mls/hr IV.SIG Q12H [facility]COL[facility] Rx#: [id number] Zosyn 4.5 GM Premix 4.5 gm In 200 / 200 200 / 200 100 / 100 100 ml @ 200 mls/hr IV.SIG Q6H [facility]COL[facility] Rx#:[id number] KCl 10 mEq Premix Inj 10 meq In 100 / 100 100 ml @ 100 mls/hr IV.SIG ONCE ONE Rx#:[id number] KCl 20 mEq Premix Inj 20 meq In 100 / 100 100 ml @ 50 mls/hr IV.SIG ONCE ONE Rx#:[id number] Flagyl 500 MG Inj 100 ML @ 100 200 / 200 mls/hr IV.SIG Q6H [facility]COLM Rx#: [id number] Other: # Incontinent Voids 4 5 # Urine Diapers 1 Date of Last Bowel Movement 07/30/18 07/30/18 07/30/18 # Incontinent Bowel Movements 3 Physical Exam: CONSTITUTIONAL/GENERAL: Adequately nourished male, jaundiced, restrained, unable to answer questions. TUBES/LINES/DRAINS: Peripheral IV; nasal cannula 02; condom catheter; SICDs. SKIN: Jaundiced. HEAD: Atraumatic. Normocephalic. Extraocular motions intact. Sclerae icteric. No injection or drainage. Fundi not examined. ENT: Unable to evaluate hearing. Edentulous. Mucous membranes dry. No bleeding or purulent drainage. Not cooperative with oral exam. NECK: Trachea midline. Supple, nontender. No palpable thyroid enlargement or nodularity. CARDIOVASCULAR: Regular rate and rhythm without murmurs, gallops, or rubs. No JVD. Peripheral pulses symmetric. RESPIRATORY/CHEST: Symmetric, unlabored respirations. Scattered faint bilateral ronchi. Breath sounds equal bilaterally. No wheezing. GASTROINTESTINAL: Abdomen distended, still mildly compressible, PEG tube clamped. GENITOURINARY: Without palpable bladder distension. MUSCULOSKELETAL: Moving all extremities, not to command NEUROLOGICAL: Awake and not tracking. Unable to respond to my questions. Moves all extremities. Unable to follow commands. PSYCHIATRIC: Frequent moaning. Restless. . Diagnostic Tests Laboratory: Laboratory Results - last 72 hr 07/28/18 07/28/18 07/29/18 17:15 22:10 00:40 WBC RBC Hgb Hct MCV MCH MCHC RDW Plt Count MPV Neut % (Auto) Lymph % (Auto) Nash % (Auto) Eos % (Auto) Baso % (Auto) Neut # (Auto) Lymph # (Auto) Nash # (Auto) Eos # (Auto) Baso # (Auto) WBC Differential Differential Comment Sodium Potassium Chloride Carbon Dioxide Anion Gap BUN Creatinine Estimated GFR POC Glucose 98 101 131 H Random Glucose Calcium Magnesium Total Bilirubin Direct Bilirubin AST ALT Alkaline Phosphatase Ammonia Total Protein Albumin Vancomycin Trough 07/29/18 07/29/18 07/29/18 08:01 13:29 14:28 WBC RBC Hgb Hct MCV MCH MCHC RDW Plt Count MPV Neut % (Auto) Lymph % (Auto) Nash % (Auto) Eos % (Auto) Baso % (Auto) Neut # (Auto) Lymph # (Auto) Nash # (Auto) Eos # (Auto) Baso # (Auto) WBC Differential Differential Comment Sodium Potassium Chloride Carbon Dioxide Anion Gap BUN Creatinine Estimated GFR POC Glucose 137 H 130 H Random Glucose Calcium Magnesium Total Bilirubin Direct Bilirubin AST ALT Alkaline Phosphatase Ammonia 30 Total Protein Albumin Vancomycin Trough 07/29/18 07/29/18 07/30/18 16:45 22:21 00:55 WBC RBC Hgb Hct MCV MCH MCHC RDW Plt Count MPV Neut % (Auto) Lymph % (Auto) Nash % (Auto) Eos % (Auto) Baso % (Auto) Neut # (Auto) Lymph # (Auto) Nash # (Auto) Eos # (Auto) Baso # (Auto) WBC Differential Differential Comment Sodium Potassium Chloride Carbon Dioxide Anion Gap BUN Creatinine Estimated GFR POC Glucose 144 H 179 H 166 H Random Glucose Calcium Magnesium Total Bilirubin Direct Bilirubin AST ALT Alkaline Phosphatase Ammonia Total Protein Albumin Vancomycin Trough 07/30/18 07/30/18 07/30/18 05:18 05:18 07:18 WBC 14.0 H RBC 2.59 L Hgb 8.9 L Hct 26.3 L MCV 101.7 H MCH 34.4 H MCHC 33.8 RDW 19.5 H Plt Count 118 L MPV 11.4 H Neut % (Auto) 79.5 H Lymph % (Auto) 7.5 L Nash % (Auto) 11.3 H Eos % (Auto) 1.0 Baso % (Auto) 0.7 Neut # (Auto) 11.2 H Lymph # (Auto) 1.0 Nash # (Auto) 1.6 H Eos # (Auto) 0.1 Baso # (Auto) 0.1 WBC Differential . Differential Comment Auto diff final Sodium 146 H D Potassium 3.4 L D Chloride 111 H D Carbon Dioxide 25.9 Anion Gap 9 BUN 62 H Creatinine 1.85 H Estimated GFR 37 L POC Glucose 182 H Random Glucose 131 H Calcium 7.9 L D Magnesium 2.8 H Total Bilirubin 21.0 H Direct Bilirubin 17.9 H AST 119 H ALT 90 H Alkaline Phosphatase 180 H Ammonia Total Protein 5.4 L D Albumin 1.9 L Vancomycin Trough 07/30/18 07/30/18 07/30/18 08:57 11:52 16:39 WBC RBC Hgb Hct MCV MCH MCHC RDW Plt Count MPV Neut % (Auto) Lymph % (Auto) Nash % (Auto) Eos % (Auto) Baso % (Auto) Neut # (Auto) Lymph # (Auto) Nash # (Auto) Eos # (Auto) Baso # (Auto) WBC Differential Differential Comment Sodium Potassium Chloride Carbon Dioxide Anion Gap BUN Creatinine Estimated GFR POC Glucose 152 H 138 H 138 H Random Glucose Calcium Magnesium Total Bilirubin Direct Bilirubin AST ALT Alkaline Phosphatase Ammonia Total Protein Albumin Vancomycin Trough 07/30/18 07/31/18 07/31/18 22:22 00:46 05:56 WBC RBC Hgb Hct MCV MCH MCHC RDW Plt Count MPV Neut % (Auto) Lymph % (Auto) Nash % (Auto) Eos % (Auto) Baso % (Auto) Neut # (Auto) Lymph # (Auto) Nash # (Auto) Eos # (Auto) Baso # (Auto) WBC Differential Differential Comment Sodium Potassium Chloride Carbon Dioxide Anion Gap BUN Creatinine Estimated GFR POC Glucose 107 134 H 132 H Random Glucose Calcium Magnesium Total Bilirubin Direct Bilirubin AST ALT Alkaline Phosphatase Ammonia Total Protein Albumin Vancomycin Trough 07/31/18 07/31/18 07/31/18 06:27 06:27 08:28 WBC 14.9 H RBC 2.87 L Hgb 10.0 L Hct 29.3 L MCV 101.9 H MCH 34.9 H MCHC 34.2 RDW 19.6 H Plt Count 121 L MPV 11.4 H Neut % (Auto) 80.3 H Lymph % (Auto) 7.4 L Nash % (Auto) 9.4 H Eos % (Auto) 2.1 Baso % (Auto) 0.8 Neut # (Auto) 12.0 H Lymph # (Auto) 1.1 Nash # (Auto) 1.4 H Eos # (Auto) 0.3 Baso # (Auto) 0.1 WBC Differential . Differential Comment Auto diff final Sodium 149 H Potassium 3.2 L Chloride 112 H Carbon Dioxide 28.4 Anion Gap 9 BUN 48 H Creatinine 1.68 H Estimated GFR 42 L POC Glucose 103 Random Glucose 115 H Calcium 7.6 L Magnesium 2.9 H Total Bilirubin 20.7 H Direct Bilirubin AST 112 H ALT 87 H Alkaline Phosphatase 172 H Ammonia Total Protein 5.5 L Albumin 1.7 L Vancomycin Trough 07/31/18 07/31/18 07/31/18 11:35 13:59 16:50 WBC RBC Hgb Hct MCV MCH MCHC RDW Plt Count MPV Neut % (Auto) Lymph % (Auto) Nash % (Auto) Eos % (Auto) Baso % (Auto) Neut # (Auto) Lymph # (Auto) Nash # (Auto) Eos # (Auto) Baso # (Auto) WBC Differential Differential Comment Sodium Potassium Chloride Carbon Dioxide Anion Gap BUN Creatinine Estimated GFR POC Glucose 101 110 Random Glucose Calcium Magnesium Total Bilirubin Direct Bilirubin AST ALT Alkaline Phosphatase Ammonia Total Protein Albumin Vancomycin Trough 8.5 Result Diagrams: 07/31/18 06:27 07/31/18 06:27 Microbiology: Microbiology 07/28/18 13:52 Aerobic Blood Culture - Preliminary Blood - Peripheral No growth in 3 days Anaerobic Blood Culture - Preliminary No growth in 3 days 07/28/18 13:57 Aerobic Blood Culture - Preliminary Blood - Peripheral No growth in 3 days Anaerobic Blood Culture - Preliminary No growth in 3 days Imaging: ITS Impressions Abdomen/Pelvis CT 07/08/18 18:02 CONCLUSION: 1. Severe fatty infiltration of the liver. 2. Apparent pericholecystic fluid. Also fairly robust enhancement of the gallbladder mucosa. Please correlate clinically for any evidence of cholecystitis. No stones or ductal dilatation demonstrated. Gallbladder Ultrasound 07/08/18 18:53 CONCLUSION: 1. Small, nonspecific pericholecystic fluid without stones, wall thickening or sonographic Lundy's sign. The fluid may be on the basis of hepatocellular disease. The ultrasound does not support acute cholecystitis. 2. Fatty infiltrated and mildly enlarged liver. Carotid Doppler Study 07/09/18 00:00 CONCLUSION: 1. Right Internal Carotid Artery: Findings indicate >70% stenosis, but less than near occlusion. 2. Left Internal Carotid Artery: Findings indicate <50% stenosis. Hepatobiliary Scan Nuclear Medicine 07/09/18 14:22 CONCLUSION: 1. No activity in intrahepatic ducts, common duct or small bowel. Considerations include include acute obstruction of the common duct and diffuse hepatocellular disease. 2. CT scan shows no dilatation of the common duct or intrahepatic ducts. Diffuse hepatocellular disease is suspected. Neck CTA 07/10/18 00:00 CONCLUSION: 1. 80% stenosis of the proximal right ICA. Left carotid and bilateral vertebral arteries are patent. 2. Emphysematous changes. Abdomen/Pelvis CTA 07/10/18 00:08 CONCLUSION: 1. 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 The SMA and MIC are patent. 2. Hepatic steatosis. 3. Emphysematous changes. Abdomen/Bladder Ultrasound 07/11/18 00:00 CONCLUSION: 1. Normal ultrasound appearance of the kidneys. 2. Other findings include hepatic steatosis and left pleural effusion. Elbow CT 07/11/18 00:00 CONCLUSION: 1. Small fracture fragment off the olecranon. 2. There is subcutaneous edema identified posterior to the elbow with soft tissue swelling. Head CT 07/13/18 00:00 CONCLUSION: 1. No acute intracranial abnormality. 2. Atrophy. . Gastrostomy Tube Placement 07/22/18 00:00 CONCLUSION: 1. Uncomplicated gastrostomy tube placement as above. Chest X-Ray 07/29/18 00:00 CONCLUSION: 1. No significant change in the bilateral infiltrates (right worse than left). 2. Mild stable cardiomegaly. Liver Ultrasound 07/29/18 00:00 CONCLUSION: 1. Mild gallbladder wall thickening. If there is clinical concern for cholecystitis, a hepatobiliary scan may be helpful to confirm cystic duct obstruction. 2. Enlarged fatty liver. 3. Some ascites along the edge of the liver and spleen. 4. Echogenic right kidney suggesting possible medical renal disease. 5. Poor visualization of the pancreas due to shadowing bowel gas. Abdomen X-Ray 07/30/18 00:00 CONCLUSION: Slight worsening in colonic distention Cholangiopancreatography MRI 07/30/18 00:00 CONCLUSION: 1. No intraluminal defects in the gallbladder or common bile duct. 2. Prominent amount of ascites and large bilateral pleural effusions. Percutaneous gastrostomy in place. Elbow X-Ray 07/30/18 00:00 CONCLUSION: Good alignment and position of the bony structures. Procedures: Intubation/mechanical ventilation . Assessment and Plan - Disease Oriented Problem List (1) NSTEMI (non-ST elevated myocardial infarction) (2) Liver failure (3) Elevated troponin level (4) Acute kidney injury (5) Hypernatremia (6) Respiratory failure (7) Bacteremia Comment: MRSA - Symptom Scale (1) Encephalopathy 0-10 Scale: Unable to quantify (2) Agitation 0-10 Scale: Unable to quantify Pertinent Non-Medical Issues: Psychosocial: HS education. Recurrent homelessness. Polysubstance abuse. . 2 adult children he is estranged from with no contact info. Father . Mother demented and at [facility]. Only two siblings -- both live locally and are serving as proxies. Spiritual: Confucianist background. Buddhism and spirituality have not played an important role in his life. Legal: Patient currently incapacitated to make his own health care decisions. Uncertain if he will re-gain capacity. Two sisters are the proxy decision makers. Ethical issues impacting care: No known ethical issues. . Important Contacts: Aspen Raymundo (sister and co-proxy) [phone] Jovita Whitehead (sister and co-proxy) [phone] . Prognosis: Pt has struggled with EtOH abuse and tobacco abuse his entire life. Urine drug screen at time of admission indicates problems with street drugs as well -- he was positive for opiates and cocaine. He has been unable to work and has been mostly homeless for years. He presented with a fractured left elbow, chest pain, nausea and has been found to have multiple problems including -- left elbow fx; MRSA sepsis; hepatic failure; acute kidney injury; NTSTEMI; encephlopathy; pneumonia; respiratory failure requiring intubation/mechanical ventilation. Though he has been successfully weaned from the vent and has had improvement in his kidney function and improvement in sepsis; he remains quite encephalopathic. He continues to have electrolyte issues and we are having difficulty addressing nutrition. Though he certainly has the potential for surviving the hospitalization, it is unlikely he will be able to return to independent living and he has a very high likelihood of further complications and setbacks. . Code Status: No Code DNR Plan: == Code Status: NO CODE per telephone conversation with both sisters (Aspen Nuñez and Jovita Whitehead) on 07/21/18. == Decision Making: Patient is incapacitated at this time to make his own health care decisions. There are no written advance directives. Patient is . He has adult children believed to be in [place]. The patient has two siblings -- Aspen Nuñez and Jovita Whitehead. Both live locally and are the proxy decision makers. == Goals of medical treatments: Patient is incapacitated at this time to make his own health care decisions.It is unlikely that he will regain capacity to make his own health care decisions. At this time, his health care proxies believe the patient would want aggressive care short of resuscitation. They feel the patient would not want a life where he was dependent such as in a care home. == Prognosis: Prognosis is poor. In spite of maximum treatment and alcohol abstention, his liver function has continued to decline. He is extremely jaundiced, encephalopathic, agitated, unable to care for himself with continued decline. He is currently unable to tolerate tube feeding and he has failed speech and swallow evaluation secondary to his hepatic encephalopathy. Per his MELD score prognosis, he has a 30% 30-day mortality risk and a 58% 90-day mortality risk. He is certainly hospice appropriate and would benefit from their services. == Symptoms: * Agitation: Patient agitated in bed, disoriented, unable to make needs known. * Encephalopathy: Probably multi-factorial -- hepatic encephalopathy; electrolyte abnormalities; infection; delirium. * Dysphagia: PEG tube placed, not tolerating tube feeding, required PEG tube to drainage of large amount of gastric contents. == Two sisters are equal proxies and BOTH should be consulted for decision making and consents. * Both sisters are now aware of the patient's problems They are aware that the patient has had several organ systems (cardiac; liver; kidneys; lungs; brain) that have been impacted and even though we have had some improvement in some areas, he remains critically ill and at risk for relapse. * Sisters agree to feeding tube placement. == Recommend lactulose when PEG tube is placed to address the component of his encephalopathy that might be alcohol based. == Agree with current opioid analgesic regimen. The morphine will have a longer than usual duration of action due to kidney function. Want to avoid over sedation with opioids as it's important to be able to monitor his neurologic function. == Should patient recover capacity to make his own medical decisions, will want to have him assign a health care surrogate and discuss goals. . Attestation Attestation: To help prompt me to consider important information that might be impacting today's encounter and assessment, information from prior notes written by myself or my colleagues may have been "brought forward" into today's note. My signature on this note, however, is an attestation that I personally performed the exam, history, and/or decision-making noted today, and, unless otherwise indicated, the interactions with patient, family, and staff as well as the review of records all occurred today. I also attest that the listed assessment and stated plan reflect my best clinical judgment today based on the combination of historical information, prior notes, and today's exam/ interactions. When time spent is documented, it refers only to time spent today by the signer, or if indicated, combined time spent today by collaborating physician/nurse practitioner. .
--- NOTE | 2018-07-31 20:23 | P.PNPL ---
Subjective Interval history: 63 YOWM with RF, increased liver enzymes has pulm congestion no hemoptysis Tolerates TF no fever Somewhat confused Physical Exam Vital signs: Vital Signs 07/30/18 21:43 07/31/18 00:00 07/31/18 03:17 Temperature 98.0 F 97.2 F L Pulse Rate 91 H 92 H 83 Respiratory Rate 20 17 18 Blood Pressure 128/77 122/72 Pulse Oximetry 94 L 98 07/31/18 04:00 07/31/18 07:48 07/31/18 07:59 Temperature 97.3 F L Pulse Rate 82 Respiratory Rate 16 18 20 Blood Pressure 120/56 L Pulse Oximetry 97 07/31/18 10:13 07/31/18 11:55 07/31/18 12:00 Temperature 98.1 F Pulse Rate 87 91 H Respiratory Rate 18 20 18 Blood Pressure 139/60 Pulse Oximetry 97 90 L 07/31/18 16:00 07/31/18 16:16 07/31/18 16:41 Temperature 97.1 F L Pulse Rate 96 H 92 H Respiratory Rate 20 18 18 Blood Pressure 139/64 Pulse Oximetry 92 L 07/31/18 20:00 Temperature 98.0 F Pulse Rate 92 H Respiratory Rate 18 Blood Pressure 121/59 L Pulse Oximetry 96 Intake & Output 07/31/18 07/31/18 08/01/18 06:59 18:59 06:59 Intake Total 300 / 300 550 / 550 Balance 300 / 300 550 / 550 Weight 59.1 kg Intake: IV 300 / 300 550 / 550 Flexbumin 25% Inj 50 ML @ 60 50 / 50 mls/hr IV.SIG Q12H [facility] Rx#: [id number] Zosyn 4.5 GM Premix 4.5 gm In 200 / 200 200 / 200 100 ml @ 200 mls/hr IV.SIG Q6H [facility] Rx#:[id number] KCl 10 mEq Premix Inj 10 meq In 100 / 100 100 ml @ 100 mls/hr IV.SIG ONCE ONE Rx#:[id number] KCl 20 mEq Premix Inj 20 meq In 100 / 100 100 ml @ 50 mls/hr IV.SIG ONCE ONE Rx#:[id number] Flagyl 500 MG Inj 100 ML @ 100 200 / 200 mls/hr IV.SIG Q6H [facility]COLM Rx#: [id number] Other: # Incontinent Voids 5 # Urine Diapers 8 Date of Last Bowel Movement 07/30/18 07/31/18 GENERAL: Elderly WM, NAD SKIN: Warm and dry. HEAD: Normocephalic. EYES: No scleral icterus. No injection or drainage. NECK: Supple, trachea midline. No JVD or lymphadenopathy. CARDIOVASCULAR: Regular rate and rhythm without murmurs, gallops, or rubs. RESPIRATORY: Breath sounds equal bilaterally. No accessory muscle use. GASTROINTESTINAL: Abdomen soft, non-tender, nondistended. MUSCULOSKELETAL: No cyanosis, or edema. BACK: Nontender without obvious deformity. No CVA tenderness. - Urinary Catheter Management Indwelling Urethral Catheter Cath placed during this visit: yes, but has since been removed by the nurse Reason for continuing: Decision to DC catheter Insertion date: 07/12/18 Insertion time: 07:45 Removal date: 07/19/18 Removal time: 10:45 Condom Cath placed during this visit: yes Urethral indwelling: No Reason for continuing: Not indwelling catheter Insertion date: 07/19/18 Insertion time: 10:50 Assessment and Plan - Plan IMPRESSION: 1. Methicillin-resistant Staphylococcus aureus. 2. Urinary tract infection. 3. Sepsis. 4. Hemoptysis. 5. Respiratory distress status post extubation. 6. Increased liver enzymes. 7. Thrombocytopenia. 8. The patient is homeless. 9. Nicotine use. 10. Alcohol use. PLAN: Tube feeding monitor Lytes monitor Plt count Protonix 40 mg IV daily Supplement 02 to keep sat >90%
[2018-08-01] MEDS: Morphine Inj 4 MG/ML Vial IV.PUSH PRN (01:22)
[2018-08-01] MEDS: Oral Hygiene Kit OROPHARYNG SCH ×4 (01:24→15:51)
[2018-08-01] MEDS: Piperacil/Tazo 4.5 GM Premix 4.5 GM/100 ML BAG IV.SIG SCH ×2 (04:30→11:07)
[2018-08-01] MEDS: Dextrose 5%/NaCl 0.45% Inj 1,000 ML IV.CONT SCH (05:03)
[2018-08-01 05:34] LABS: Baso # (Auto) 0.2 th/mm3 (0.0-0.2); Baso % (Auto) 0.9 % (0.0-2.0); Eos % (Auto) 0.2 % (0.0-4.0); Hematocrit 30.1 % (39.0-51.0); Hemoglobin 10.3 gm/dL (13.0-17.0); Lymph # (Auto) 1.4 th/mm3 (1.0-4.8); Lymph % (Auto) 6.5 % (9.0-44.0); Mean Corpuscular HGB Conc 34.2 % (32.0-36.0); Mean Corpuscular Hemoglobin 34.7 pg (27.0-34.0); Mean Corpuscular Volume 101.5 fL (80.0-100.0); Mean Platelet Volume 11.2 fL (7.0-11.0); Mono # (Auto) 1.6 th/mm3 (0.0-0.9); Mono % (Auto) 7.2 % (0.0-8.0); Neut # (Auto) 18.9 th/mm3 (1.8-7.7); Neut % (Auto) 85.2 % (16.0-70.0); Platelet Count 115 th/mm3 (150-450); Red Blood Count 2.96 mil/mm3 (4.50-5.90); Red Cell Distribution Width 19.6 % (11.6-17.2); White Blood Count 22.2 th/mm3 (4.0-11.0)
[2018-08-01] MEDS: KCL 20 mEq/D5W/NaCl 0.45% Inj 1,000 ML IV.CONT SCH (06:21)
[2018-08-01 06:23] LABS: Alanine Aminotransferase 75 U/L (12-78); Albumin 1.9 g/dL (3.4-5.0); Alkaline Phosphatase 152 U/L (45-117); Anion Gap 12 meq/L (5-15); Aspartate Aminotransferase 112 U/L (15-37); Blood Urea Nitrogen 49 mg/dL (7-18); Calcium 7.7 mg/dL (8.5-10.1); Carbon Dioxide 25.6 meq/L (21.0-32.0); Chloride 114 meq/L (98-107); Glomerular Filtration Rate 38 mL/min (>89); Glucose,Random 125 mg/dL (74-106); Magnesium 2.5 mg/dL (1.5-2.5); Sodium 152 meq/L (136-145); Total Protein 5.5 g/dL (6.4-8.2)
[2018-08-01 06:34] LABS: Potassium 2.8 meq/L (3.5-5.1)
--- NOTE | 2018-08-01 08:11 | P.PNIM ---
Subjective Interval history: Follow-up ileus, liver failure, hypokalemia and acute kidney injury. Patient has no complaints denies abdominal pain now having loose stools discussed with nursing Physical Exam Vital signs: Last Vital Signs Temp 98.1 F 08/01/18 04:00 Pulse 80 08/01/18 04:00 Resp 18 08/01/18 04:00 BP 118/59 L 08/01/18 04:00 Pulse Ox 94 L 08/01/18 04:00 Intake & Output 07/30/18 07/31/18 08/01/18 08/02/18 06:59 06:59 06:59 06:59 Intake Total 721.5 / 721.5 1500 / 1500 1999 Output Total 0 / 0 150 / 150 Balance 721.5 / 721.5 1500 / 1500 1999 -150 / -150 Weight 59.9 kg 59.1 kg 56.3 kg Narrative: GENERAL: 63 yo male appearing older, chronically ill, not in acute distress at this time. SKIN: Warm and dry. Jaundiced Respiratory: Upper airway congestion CARDIOVASCULAR: Regular rate and rhythm without murmurs, gallops, or rubs. RESPIRATORY: Breath sounds coarse sounding. GASTROINTESTINAL: Abdomen soft, Leakage at the PEG tube site. Abd slightly distended. MUSCULOSKELETAL: No cyanosis, no edema. Neuro: alert, confused Urinary Catheter Management Indwelling Urethral Catheter: Cath placed during this visit: yes, but has since been removed by the nurse Insertion date: 07/12/18 Insertion time: 07:45 Removal date: 07/19/18 Removal time: 10:45 Condom: Cath placed during this visit: yes Urethral indwelling: No Insertion date: 07/19/18 Insertion time: 10:50 Results Labs CBC & Chem 7: 08/01/18 04:24 08/01/18 04:24 Labs: Microbiology 07/28/18 13:52 Blood - Peripheral Aerobic Blood Culture - Preliminary No growth in 3 days 07/28/18 13:52 Blood - Peripheral Anaerobic Blood Culture - Preliminary No growth in 3 days 07/28/18 13:57 Blood - Peripheral Aerobic Blood Culture - Preliminary No growth in 3 days 07/28/18 13:57 Blood - Peripheral Anaerobic Blood Culture - Preliminary No growth in 3 days Procedures Procedures: PEG Assessment and Plan (1) Liver failure: Code(s): K72.90 - Hepatic failure, unspecified without coma Status: Acute (2) Hyperbilirubinemia: Code(s): E80.6 - Other disorders of bilirubin metabolism Status: Acute Plan Acute metabolic encephalopathy Anisocoria EtOH abuse Recent cocaine/opiate abuse -inhaled. Denies intravenous MVI/ folate. Patient states he inhaled cocaine 4-5 days prior to admission. Denies IV drug use. Discontinued acetaminophen and related products with elevated transaminases Stat CT of the head for unequal pupil, negative for acute findings Encephalopathy improved enough to allow extubation 07/18. Check ammonia level as needed due to encephalopathy. Resume lactulose following G-tube placement by IR CV: Severe sepsis Lactic acidosis Elevated troponin likely demand ischemia Right carotid artery stenosis Elevated CPK Cardiology Dr. chaudhry. No intervention planned 2D echocardiogram revealed Normal left ventricular size. Wall thickness is normal. The left ventricular systolic function is normal with an estimated ejection fraction in the range of 55-60%. Not on aspirin or heparin at this time due to thrombocytopenia Followed by vascular surgery for right carotid artery stenosis 80%. Resp: Acute hypoxemic respiratory failure Hospital-acquired pneumonia Emphysematous type changes on CT neck Hyperammonemia Hypoalbuminemia Tobacco abuse Emergently intubated and placed on mechanical ventilation. PRVC/AC 07/13/2018 Incentive spirometry. Extubated 07/18 Chest tube removed 07/19, chest x-ray after with the right lung well expanded. Consulted pulmonology IS/ Acapella, continue duonebs pulmonary drainage Continue treatment for hospital-acquired pneumonia with Zosyn GI: Elevated transaminases. Worse Elevated total bilirubin. Worse Liver failure Hypoalbuminemia Cirrhosis suspect Ascites Ileus vs constipation. Patient having loose stools Noted CT abdomen/pelvis revealed possible early cholecystitis. Pericholecystic fluid. Ultrasound revealed negative Lundy sign. Nuclear medicine scan revealed no activity in the intrahepatic ductal compound bile duct or small bowel. Cannot rule out common bile duct obstruction CT angiogram of the abdomen/pelvis revealed 20-30% stenosis of the SMA. Patent MIC, celiac. Hepatitis panel negative. Negative w/u - ceruloplasmin, BOBBY, AMA, ASMA, SSA AMB, anti-Ronquillo, RP, scleroderma, double-stranded DNA, hemochromatosis Currently on lactulose 45 mg 3 times a day and rifaximin Resume tube feeds once G-tube placed by IR Reconsulted GI, ultrasound with gallbladder thickening, KUB with worsening colonic distention MRCP with no intraluminal defects in the gallbladder or common bile duct. Repeat ammonia level within normal limits Ct IV albumin with Lasix Endo: Sliding scale insulin with Accu-Cheks to maintain euglycemia/every 6 hours low regimen TSH 1. Cortisol 25 Glucose control acceptable Renal: Acute kidney failure. Worse Hypernatremia. Hypokalemia Avoid nephrotoxic medication. Discontinued vancomycin Convert fluid to D5 water with KCl 40 mEq/L. Increase free water Monitor and replete electrolytes Heme: Macrocytic anemia Thrombocytopenia Coagulopathic state Follow-up on PT/INR Platelet transfusion ordered prior to G-tube placement by IR ID: MRSA bacteremia Septic shock Pneumonia Worsening leukocytosis 2D transthoracic echocardiogram revealed no signs of endocarditis. Infectious disease following Currently on Zosyn Repeat blood culture, urinalysis and C. difficile. Flagyl added yesterday. Consult infectious disease MSK: Left posterior olecranon fracture Followed by Dr. Blanco, splint immobilized. FEN: Replace electrolytes as clinically indicated. Potassium of 2.8 will replace with 40 mEq IV potassium Access -Utilize peripheral IV. Prophylaxis -GI -pantoprazole -DVT-SCD/hold off chemical DVT prophylaxis due to severe thrombocytopenia, prolonged INR DC plan: Pending improvement and clearance by consultants. Family declined hospice Code status: DNR status. Palliative care following. Poor prognosis Progress Note: Quality VTE Deep Vein Thrombosis/Pulmonary Embolism Present on Admission: No _ (1) Liver failure Qualifiers: Hepatic coma status: Liver failure chronicity:
[2018-08-01] MEDS: Mupirocin 2% Nasal Oint Topical Syringe EACH NARE SCH ×2 (08:26→22:13)
[2018-08-01] MEDS: rifAXIMin 550 MG Tablet PO SCH ×2 (08:26→22:13)
[2018-08-01] MEDS: Albumin Human 25% Inj 50 ML IV.SIG SCH ×2 (08:27→22:13)
[2018-08-01] MEDS: Chlorhexidine 0.12% Oral Kit 15 ML UDC OROPHARYNG SCH ×2 (08:28→22:13)
[2018-08-01] MEDS: Metoclopramide 10 MG Tablet G-TUBE SCH ×4 (08:31→22:16)
[2018-08-01] MEDS: Insulin NovoLOG Aspart Correctional Sugar Inj SQ SCH ×4 (08:39→23:40)
--- NOTE | 2018-08-01 08:59 | XR ---
EXAM DATE: 08/01/2018 8:53 AM EST AGE/SEX: 63 years / Male INDICATIONS: Distention. CLINICAL DATA: This is the patient's subsequent encounter. Patient reports that signs and symptoms h ave been present for 4 - 6 days and indicates a pain score of Nonresponsive. MEDICAL/SURGICAL HISTORY: . Hypertension. ETOH abuse. MRSA. Left eye injury. Tobacco use. . Fo ot sx., Gastric tube COMPARISON: [facility], ABDOMEN 1V KUB, 07/30/2018. . FINDINGS: There is a gastrostomy tube in the stomach. There has been some mild improvement in the bowel gas pa ttern compared to the prior exam. There has been a mild decrease in the gaseous distention of the col on. Otherwise, no other new or significant changes are demonstrated. CONCLUSION: Mild improvement in the bowel gas pattern compared to the prior study. Electronically signed by: Bear Cope MD Board Certified Radiologist 08/01/2018 8:57 AM EST
[2018-08-01] MEDS: POTASSIUM CHLORIDE IV.CONT SCH (09:56)
[2018-08-01] MEDS: Potassium Chlor 20 mEq Premix 20 MEQ/100 ML PIGGYBACK IV.SIG SCH ×2 (09:56→11:49)
[2018-08-01] MEDS: NACL 0.3% IV.CONT SCH (09:56)
[2018-08-01] MEDS: DEXTROSE IV.CONT SCH (09:56)
--- NOTE | 2018-08-01 11:01 | P.PNID ---
Subjective Remarks: ID coverage follow-up. Chart reviewed. Asked to see patient because of leukocytosis which is worsening. Patient was previously seen by ID and treated for bacteremia. Received antibiotics for MRSA bacteremia. He is currently laying in bed and is in no acute distress. Appears confused and not responding with full sentences when asked questions. He denies pain. No fever. No cough. Denies shortness of breath. No diarrhea noted. Currently in soft restraints. Patient had positive blood culture with MRSA 07/08. He completed 14 days of antibiotics. Blood cultures are pending. Patient is a 63-year-old male, presented to the hospital complaining of pain and swelling on his left elbow. He stated that he fell about a week ago but did not seek any treatment for his left elbow. He presented to the ED, and he was found to have a fracture of the olecranon on the left side. Patient also since admission has complained of some abdominal pain. He has known history of significant alcohol abuse. Imaging studies of the abdomen showed hepatic steatosis, pericholecystic fluid with no ductal dilatation. Ultrasound showed pericholecystic fluid with negative Lundy sign. He had a HIDA scan which showed no activity which could most likely be due to his liver disease. Patient also had a CTA as part of evaluation for his abdominal pain. That is okay. There were 2 blood cultures done in the ED, and they are now reported as growing MRSA. Patient has had some low-grade temps. Overnight he had persistent hypotension, and he was transferred to the ICU. Patient currently is on pressors. He is afebrile. He is still complaining of abdominal pain. He states he has chronic back pain which has not changed. He denies any shortness of breath. On this admission he was also found to have 80% right carotid artery stenosis, and vascular is following the patient. Echocardiograms not showing any obvious vegetation. His WBC is mildly elevated. He has an elevated lactic acid. His platelet count is low, fibrinogen is normal. Infectious disease consultation has been requested to assist with evaluation and treatment of his bacteremia. Antibiotics: Piperacillin/tazobactam Lines: Line sites with no e.o infection Past Medical History: Tobacco and ETOH abuse Drug screen (+) cocaine (denies IVDU), admits to smoking Allergies/Adverse Reactions: Allergies No Known Allergies Allergy (Verified 07/08/18 12:30) Objective Vital Signs 07/31/18 11:55 07/31/18 12:00 07/31/18 16:00 Temperature 98.1 F 97.1 F L Pulse Rate 91 H 96 H Respiratory Rate 20 18 20 Blood Pressure 139/60 139/64 Pulse Oximetry 90 L 92 L 07/31/18 16:16 07/31/18 16:41 07/31/18 20:00 Temperature 98.0 F Pulse Rate 92 H 92 H Respiratory Rate 18 18 18 Blood Pressure 121/59 L Pulse Oximetry 96 07/31/18 21:10 08/01/18 00:00 08/01/18 03:34 Temperature 98.3 F Pulse Rate 92 H 85 94 H Respiratory Rate 18 18 19 Blood Pressure 102/67 Pulse Oximetry 96 92 L 08/01/18 03:35 08/01/18 04:00 08/01/18 07:19 Temperature 98.1 F 97.2 F L Pulse Rate 80 90 Respiratory Rate 18 18 Blood Pressure 118/59 L 105/52 L Pulse Oximetry 95 94 L 93 L Intake & Output 07/31/18 08/01/18 08/01/18 18:59 06:59 18:59 Intake Total 550 / 550 1450 / 1450 800 / 800 Output Total 150 / 150 Balance 550 / 550 1450 / 1450 650 / 650 Weight 56.3 kg Intake: IV 550 / 550 1450 / 1450 800 / 800 D5W/1/2 NS Inj 1,000 ML @ 50 325 / 325 mls/hr IV.CONT .Q20H [facility] Rx#: [id number] D5W/1/2NS + KCL 20 mEq Inj 1, 1000 / 1000 325 / 325 000 ML @ 50 mls/hr IV.CONT . Q20H [facility] Rx#:[id number] Flexbumin 25% Inj 50 ML @ 60 50 / 50 50 / 50 50 / 50 mls/hr IV.SIG Q12H [facility] Rx#: [id number] Zosyn 4.5 GM Premix 4.5 gm In 200 / 200 200 / 200 100 ml @ 200 mls/hr IV.SIG Q6H [facility] Rx#:[id number] KCl 20 mEq Premix Inj 20 meq In 100 / 100 100 ml @ 50 mls/hr IV.SIG ONCE ONE Rx#:[id number] Flagyl 500 MG Inj 100 ML @ 100 200 / 200 200 / 200 100 / 100 mls/hr IV.SIG Q6H [facility] Rx#: [id number] Output: Gastric Drainage 150 / 150 Left Upper Quadrant Gastrostomy 150 / 150 Tube (PEG) Other: # Incontinent Voids 2 # Urine Diapers 8 Date of Last Bowel Movement 07/31/18 08/01/18 09:40 Blood - Peripheral Aerobic Blood Culture - Pending 08/01/18 09:40 Blood - Peripheral Anaerobic Blood Culture - Pending 08/01/18 09:45 Blood - Peripheral Aerobic Blood Culture - Pending 08/01/18 09:45 Blood - Peripheral Anaerobic Blood Culture - Pending 07/28/18 13:52 Blood - Peripheral Aerobic Blood Culture - Preliminary No growth in 3 days 07/28/18 13:52 Blood - Peripheral Anaerobic Blood Culture - Preliminary No growth in 3 days 07/28/18 13:57 Blood - Peripheral Aerobic Blood Culture - Preliminary No growth in 3 days 07/28/18 13:57 Blood - Peripheral Anaerobic Blood Culture - Preliminary No growth in 3 days Lab - Hematology Results 07/31/18 08/01/18 06:27 04:24 WBC 14.9 H 22.2 H RBC 2.87 L 2.96 L Hgb 10.0 L 10.3 L Hct 29.3 L 30.1 L MCV 101.9 H 101.5 H MCH 34.9 H 34.7 H MCHC 34.2 34.2 RDW 19.6 H 19.6 H Plt Count 121 L 115 L MPV 11.4 H 11.2 H Neut % (Auto) 80.3 H 85.2 H Lymph % (Auto) 7.4 L 6.5 L [place] % (Auto) 9.4 H 7.2 Eos % (Auto) 2.1 0.2 Baso % (Auto) 0.8 0.9 Neut # (Auto) 12.0 H 18.9 H Lymph # (Auto) 1.1 1.4 [place] # (Auto) 1.4 H 1.6 H Eos # (Auto) 0.3 0.0 Baso # (Auto) 0.1 0.2 WBC Differential . . Differential Comment Auto diff final Auto diff final Lab - Chemistry Results 07/30/18 07/30/18 07/30/18 11:52 16:39 22:22 Sodium Potassium Chloride Carbon Dioxide Anion Gap BUN Creatinine Estimated GFR POC Glucose 138 H 138 H 107 Random Glucose Calcium Magnesium Total Bilirubin AST ALT Alkaline Phosphatase Total Protein Albumin 07/31/18 07/31/18 07/31/18 00:46 05:56 06:27 Sodium 149 H Potassium 3.2 L Chloride 112 H Carbon Dioxide 28.4 Anion Gap 9 BUN 48 H Creatinine 1.68 H Estimated GFR 42 L POC Glucose 134 H 132 H Random Glucose 115 H Calcium 7.6 L Magnesium 2.9 H Total Bilirubin 20.7 H AST 112 H ALT 87 H Alkaline Phosphatase 172 H Total Protein 5.5 L Albumin 1.7 L 07/31/18 07/31/18 07/31/18 08:28 11:35 16:50 Sodium Potassium Chloride Carbon Dioxide Anion Gap BUN Creatinine Estimated GFR POC Glucose 103 101 110 Random Glucose Calcium Magnesium Total Bilirubin AST ALT Alkaline Phosphatase Total Protein Albumin 07/31/18 08/01/18 08/01/18 23:54 04:24 08:33 Sodium 152 H Potassium 2.8 L* Chloride 114 H Carbon Dioxide 25.6 Anion Gap 12 BUN 49 H Creatinine 1.84 H Estimated GFR 38 L POC Glucose 113 H 141 H Random Glucose 125 H Calcium 7.7 L Magnesium 2.5 Total Bilirubin 21.1 H AST 112 H ALT 75 Alkaline Phosphatase 152 H Total Protein 5.5 L Albumin 1.9 L Imaging: ITS Impressions Abdomen/Pelvis CT 07/08/18 18:02 CONCLUSION: 1. Severe fatty infiltration of the liver. 2. Apparent pericholecystic fluid. Also fairly robust enhancement of the gallbladder mucosa. Please correlate clinically for any evidence of cholecystitis. No stones or ductal dilatation demonstrated. Gallbladder Ultrasound 07/08/18 18:53 CONCLUSION: 1. Small, nonspecific pericholecystic fluid without stones, wall thickening or sonographic Lundy's sign. The fluid may be on the basis of hepatocellular disease. The ultrasound does not support acute cholecystitis. 2. Fatty infiltrated and mildly enlarged liver. Carotid Doppler Study 07/09/18 00:00 CONCLUSION: 1. Right Internal Carotid Artery: Findings indicate >70% stenosis, but less than near occlusion. 2. Left Internal Carotid Artery: Findings indicate <50% stenosis. Hepatobiliary Scan Nuclear Medicine 07/09/18 14:22 CONCLUSION: 1. No activity in intrahepatic ducts, common duct or small bowel. Considerations include include acute obstruction of the common duct and diffuse hepatocellular disease. 2. CT scan shows no dilatation of the common duct or intrahepatic ducts. Diffuse hepatocellular disease is suspected. Neck CTA 07/10/18 00:00 CONCLUSION: 1. 80% stenosis of the proximal right ICA. Left carotid and bilateral vertebral arteries are patent. 2. Emphysematous changes. Abdomen/Pelvis CTA 07/10/18 00:08 CONCLUSION: 1. 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 The SMA and MIC are patent. 2. Hepatic steatosis. 3. Emphysematous changes. Abdomen/Bladder Ultrasound 07/11/18 00:00 CONCLUSION: 1. Normal ultrasound appearance of the kidneys. 2. Other findings include hepatic steatosis and left pleural effusion. Elbow CT 07/11/18 00:00 CONCLUSION: 1. Small fracture fragment off the olecranon. 2. There is subcutaneous edema identified posterior to the elbow with soft tissue swelling. Head CT 07/13/18 00:00 CONCLUSION: 1. No acute intracranial abnormality. 2. Atrophy. . Gastrostomy Tube Placement 07/22/18 00:00 CONCLUSION: 1. Uncomplicated gastrostomy tube placement as above. Chest X-Ray 07/29/18 00:00 CONCLUSION: 1. No significant change in the bilateral infiltrates (right worse than left). 2. Mild stable cardiomegaly. Liver Ultrasound 07/29/18 00:00 CONCLUSION: 1. Mild gallbladder wall thickening. If there is clinical concern for cholecystitis, a hepatobiliary scan may be helpful to confirm cystic duct obstruction. 2. Enlarged fatty liver. 3. Some ascites along the edge of the liver and spleen. 4. Echogenic right kidney suggesting possible medical renal disease. 5. Poor visualization of the pancreas due to shadowing bowel gas. Cholangiopancreatography MRI 07/30/18 00:00 CONCLUSION: 1. No intraluminal defects in the gallbladder or common bile duct. 2. Prominent amount of ascites and large bilateral pleural effusions. Percutaneous gastrostomy in place. Elbow X-Ray 07/30/18 00:00 CONCLUSION: Good alignment and position of the bony structures. Abdomen X-Ray 08/01/18 06:00 CONCLUSION: Mild improvement in the bowel gas pattern compared to the prior study. Physical Exam: GENERAL: awake, appears confused. No acute distress. SKIN: No rash. Warm. HEENT: The head is atraumatic. Pupils reactive to light. No icterus. Oropharynx mucosa dry. CARDIOVASCULAR: Regular rate and rhythm. RESPIRATORY: Decreased breath sounds bilateral. No rhonchi. ABDOMEN: Soft, Gtube site ok EXTREMITIES: No clubbing, cyanosis. Mild pedal edema. NEUROLOGICAL: Unable to fully assess. Patient not cooperating. PSYCHIATRIC: Unable to fully assess LINE: No evidence of infection Assessment and Plan - Plan Impression MRSA sepsis ? olecranon trauma as entry point for MRSA MRSA bacteremia, ? endocarditis - echo ok - S/P Rx Shock, resolved Known ETOH abuse and tobacco abuse Denies IVDU, admits to smoking cocaine ETOH liver disease Elevated LFT Thrombocytopenia Acute renal failure: sepsis, contrast, meds. Respiratory failure, extubated Pleural effusion, fluid transudative Leukocytosis. No clear etiology. Recommendation 1. Discontinue piperacillin/tazobactam. 2. Monitor blood cultures. 3. Send stools for C. difficile if he has diarrhea. 4. Obtain chest x-ray. 5. Monitor white blood cell count. I will be off this weekend. Please call if the blood cultures to no positive. ID doctor staffing consultant this weekend will be available if needed. PS: CXR shows rll infiltrate. Add Aztreonam.
--- NOTE | 2018-08-01 11:30 | XR ---
EXAM DATE: 08/01/2018 11:23 AM EST AGE/SEX: 63 years / Male INDICATIONS: Cough. CLINICAL DATA: This is the patient's subsequent encounter. Patient reports that signs and symptoms h ave been present for 4-6 days and indicates a pain score of 0/10. MEDICAL/SURGICAL HISTORY: Hypertension. . [place] [facility] [place]. . FINDINGS: There is persistent diffuse infiltrate of the right lung and much less severe patchiness in the left lung base. Stable cardiomegaly is noted CONCLUSION: 1. Persistent diffuse infiltrate of the right lung and much less severe patchiness in the left lung base. 2. Stable cardiomegaly. Electronically signed by: Frederick Vargas MD Board Certified Radiologist 08/01/2018 12:00 PM EST
--- NOTE | 2018-08-01 12:24 | P.PNCA ---
Subjective Interval history: Patient denies any CP, pressure, palpitations, dizziness, edema or SOB. Patient does complain of lower back pain. Medications and Allergies Allergies Allergy/AdvReac Type Severity Reaction Status Date / Time No Known Allergies Allergy Verified 07/08/18 12:30 Home Medications Medication Instructions Recorded Confirmed Type No Known Home Medications 07/08/18 07/08/18 History Active Medications: Active Medications Albuterol (Duoneb Neb (Lynda)) 1 ampul NEB Q6HR NEB [facility] Last Admin: 08/01/18 08:47 Dose: Not Given Albuterol (Duoneb Neb (Prn)) 1 ampul NEB Q2HR NEB PRN PRN Reason: SHORTNESS OF BREATH/WHEEZING Chlordiazepoxide (Librium) 10 mg G-TUBE Q8H PRN PRN Reason: anxiety/withdrawal Last Admin: 07/31/18 23:56 Dose: 10 mg Chlorhexidine Gluconate (Peridex 0.12% Oral Kit) 15 ml OROPHARYNG BID@0800, 2000 [facility] Last Admin: 08/01/18 08:28 Dose: Not Given Dextrose (D50w Vial) 50 ml IV.PUSH UNSCH PRN PRN Reason: PER HYPOGLYCEMIA PROTOCOL Flumazenil (Romazecon Inj) 0.2 mg IV.PUSH Q1M PRN PRN Reason: OVERSEDATION Furosemide (Lasix Inj) 20 mg IV.PUSH BID@0900,1800 [facility] Last Admin: 08/01/18 08:26 Dose: 20 mg Glucagon (Glucagon Inj) 1 mg OTHER PRN PRN PRN Reason: for Hypoglycemia Protocol Haloperidol Lactate (Haldol Inj) 1 mg IV.PUSH Q15M PRN PRN Reason: for severe agitation Last Admin: 07/21/18 21:43 Dose: 1 mg Hydralazine HCl (Apresoline Inj) 20 mg IV.PUSH Q4H PRN PRN Reason: Sys Bp Greater Than 165 Mmhg Last Admin: 07/24/18 12:20 Dose: 20 mg Metronidazole/Sodium Chloride (Flagyl 500 Mg Inj) 100 mls @ 100 mls/hr IV.SIG Q6H [facility] Last Infusion: 08/01/18 09:37 Dose: Infused Albumin Human (Flexbumin 25% Inj) 50 mls @ 60 mls/hr IV.SIG Q12H [facility] Last Infusion: 08/01/18 09:38 Dose: Infused Potassium Chloride (Kcl 20 Meq Premix Inj) 20 meq in 100 mls @ 50 mls/hr IV.SIG Q2H [facility] Stop: 08/01/18 12:59 Last Admin: 08/01/18 11:49 Dose: 50 mls/hr Potassium Chloride 40 meq/ (Dextrose/Sodium Chloride) 1,020 mls @ 84 mls/hr IV.CONT .Q12H9M [facility] Last Admin: 08/01/18 09:56 Dose: 84 mls/hr Insulin Aspart (Novolog Insulin Correctional Sugar Inj) 0 unit SQ [facility]; Protocol Last Admin: 08/01/18 12:02 Dose: Not Given Lactulose (Lactulose Liq) 30 ml G-TUBE DAILY PRN PRN Reason: SEVERE CONSITIPATION Lactulose (Lactulose Liq) 45 ml G-TUBE TID [facility] Last Admin: 08/01/18 12:02 Dose: 45 ml Metoclopramide HCl (Reglan) 10 mg G-TUBE [facility] Last Admin: 08/01/18 12:02 Dose: 10 mg Metoprolol Tartrate (Lopressor Inj) 2.5 mg IV.PUSH Q6H PRN PRN Reason: BLOOD PRESSURE MANAGEMENT Miscellaneous Medication () 1 each OROPHARYNG 0000,0400,1200,1600 [facility] Last Admin: 08/01/18 11:49 Dose: Not Given Morphine Sulfate (Morphine Inj) 2 mg IV.PUSH Q4H PRN PRN Reason: BREAKTHROUGH PAIN Last Admin: 08/01/18 01:22 Dose: 2 mg Mupirocin (Bactroban 2% Nasal Oint) 1 applicatio EACH NARE BID [facility] Last Admin: 08/01/18 08:26 Dose: 1 applicatio Naloxone HCl (Narcan Inj) 0.4 mg IV.PUSH UNSCH PRN PRN Reason: SEE LABEL COMMENTS Ondansetron HCl (Zofran Inj) 4 mg IV.PUSH Q6H PRN PRN Reason: n/v/ if unable PO Ondansetron HCl (Zofran Odt) 4 mg SL Q4H PRN PRN Reason: nausea/vomiting Rifaximin (Xifaxan) 550 mg PO Q12HR [facility] Last Admin: 08/01/18 08:26 Dose: 550 mg Sennosides (Senokot) 17.2 mg G-TUBE Q12H PRN PRN Reason: Moderate Constipation Sodium Chloride (Ns Flush) 2 ml IV.FLUSH PRN PRN PRN Reason: FLUSH AFTER USING IV ACCESS Last Admin: 07/20/18 20:10 Dose: 2 ml Sodium Chloride (Ns Flush) 2 ml IV.FLUSH BID [facility] Last Admin: 08/01/18 11:07 Dose: Not Given Spironolactone (Aldactone) 100 mg PO DAILY [facility] Last Admin: 08/01/18 08:27 Dose: 100 mg Sterile Water (Free Water) 400 ml G-TUBE Q6HR [facility] Physical Exam Vital signs: Vital Signs 07/31/18 16:00 07/31/18 16:16 07/31/18 16:41 Temperature 97.1 F L Pulse Rate 96 H 92 H Respiratory Rate 20 18 18 Blood Pressure 139/64 Pulse Oximetry 92 L 07/31/18 20:00 07/31/18 21:10 08/01/18 00:00 Temperature 98.0 F 98.3 F Pulse Rate 92 H 92 H 85 Respiratory Rate 18 18 18 Blood Pressure 121/59 L 102/67 Pulse Oximetry 96 96 92 L 08/01/18 03:34 08/01/18 03:35 08/01/18 04:00 Temperature 98.1 F Pulse Rate 94 H 80 Respiratory Rate 19 18 Blood Pressure 118/59 L Pulse Oximetry 95 94 L 08/01/18 07:19 Temperature 97.2 F L Pulse Rate 90 Respiratory Rate 18 Blood Pressure 105/52 L Pulse Oximetry 93 L Intake & Output 07/31/18 08/01/18 08/01/18 18:59 06:59 18:59 Intake Total 550 / 550 1450 / 1450 900 / 900 Output Total 150 / 150 Balance 550 / 550 1450 / 1450 750 / 750 Weight 56.3 kg Intake: IV 550 / 550 1450 / 1450 900 / 900 D5W/1/2 NS Inj 1,000 ML @ 50 325 / 325 mls/hr IV.CONT .Q20H [facility] Rx#: [id number] D5W/1/2NS + KCL 20 mEq Inj 1, 1000 / 1000 325 / 325 000 ML @ 50 mls/hr IV.CONT . Q20H [facility] Rx#:[id number] Flexbumin 25% Inj 50 ML @ 60 50 / 50 50 / 50 50 / 50 mls/hr IV.SIG Q12H [facility] Rx#: [id number] Zosyn 4.5 GM Premix 4.5 gm In 200 / 200 200 / 200 100 ml @ 200 mls/hr IV.SIG Q6H [facility] Rx#:[id number] KCl 20 mEq Premix Inj 20 meq In 100 / 100 100 / 100 100 ml @ 50 mls/hr IV.SIG Q2H [facility] Rx#:[id number] Flagyl 500 MG Inj 100 ML @ 100 200 / 200 200 / 200 100 / 100 mls/hr IV.SIG Q6H [facility] Rx#: [id number] Output: Gastric Drainage 150 / 150 Left Upper Quadrant Gastrostomy 150 / 150 Tube (PEG) Other: # Incontinent Voids 2 # Urine Diapers 8 Date of Last Bowel Movement 07/31/18 - Constitutional mild distress - Routine HEENT Exam Head: Present: normocephalic ENT: Present: mucous membranes moist Comments: chronic dilated left pupil s/p drama - Routine Neck Exam Present: full ROM - Routine Respiratory Exam Present: rhonchi Comments: rhonchi throughout upper and lower lobes. - Routine Cardiovascular Exam Present: S1, S2. Absent: murmur, gallop, rubs - Routine Abdominal Exam Present: normoactive bowel sounds Comments: Peg tube in place with large amount of drainage around site. - Routine Extremities Exam Present: full ROM, pulses intact, normal capillary refill. Absent: cyanosis, clubbing, edema Comments: Jaundice - Routine Skin Exam Present: intact - Routine Neurological Exam Present: altered mental status, moving all extremities - Detailed Neurological Exam: Coma Scale Eye Opening: Spontaneous Motor Response: Obey commands - Routine Psychiatric Exam Present: unable to assess - Urinary Catheter Management Indwelling Urethral Catheter Cath placed during this visit: yes, but has since been removed by the nurse Reason for continuing: Decision to DC catheter Insertion date: 07/12/18 Insertion time: 07:45 Removal date: 07/19/18 Removal time: 10:45 Condom Cath placed during this visit: yes Urethral indwelling: No Reason for continuing: Not indwelling catheter Insertion date: 07/19/18 Insertion time: 10:50 Results 08/01/18 04:24 08/01/18 04:24 Cardiac Enzymes 07/31/18 08/01/18 Range/Units 06:27 04:24 AST 112 H 112 H (15-37) U/L CBC 07/31/18 08/01/18 Range/Units 06:27 04:24 WBC 14.9 H 22.2 H (4.0-11.0) th/mm3 RBC 2.87 L 2.96 L (4.50-5.90) mil/mm3 Hgb 10.0 L 10.3 L (13.0-17.0) gm/dL Hct 29.3 L 30.1 L (39.0-51.0) % Plt Count 121 L 115 L (150-450) th/mm3 Neut # (Auto) 12.0 H 18.9 H (1.8-7.7) th/mm3 Lymph # (Auto) 1.1 1.4 (1.0-4.8) th/mm3 [place] # (Auto) 1.4 H 1.6 H (0.0-0.9) th/mm3 Eos # (Auto) 0.3 0.0 (0.0-0.4) th/mm3 Baso # (Auto) 0.1 0.2 (0.0-0.2) th/mm3 Comprehensive Metabolic Panel 07/31/18 08/01/18 Range/Units 06:27 04:24 Sodium 149 H 152 H (136-145) meq/L Potassium 3.2 L 2.8 L* (3.5-5.1) meq/L Chloride 112 H 114 H (98-107) meq/L Carbon Dioxide 28.4 25.6 (21.0-32.0) meq/L BUN 48 H 49 H (7-18) mg/dL Creatinine 1.68 H 1.84 H (0.60-1.30) mg/dL Calcium 7.6 L 7.7 L (8.5-10.1) mg/dL AST 112 H 112 H (15-37) U/L ALT 87 H 75 (12-78) U/L Alkaline Phosphatase 172 H 152 H (45-117) U/L Total Protein 5.5 L 5.5 L (6.4-8.2) g/dL Albumin 1.7 L 1.9 L (3.4-5.0) g/dL Intake and Output 07/31/18 08/01/18 08/01/18 22:59 06:59 14:59 Intake Total 200 / 200 1450 / 1450 900 / 900 Output Total 150 / 150 Balance 200 / 200 1450 / 1450 750 / 750 Intake: IV 200 / 200 1450 / 1450 900 / 900 D5W/1/2 NS Inj 1,000 ML @ 50 325 / 325 mls/hr IV.CONT .Q20H [facility] Rx#: [id number] D5W/1/2NS + KCL 20 mEq Inj 1, 1000 / 1000 325 / 325 000 ML @ 50 mls/hr IV.CONT . Q20H [facility] Rx#:[id number] Flexbumin 25% Inj 50 ML @ 60 50 / 50 50 / 50 mls/hr IV.SIG Q12H [facility] Rx#: [id number] Zosyn 4.5 GM Premix 4.5 gm In 100 / 100 200 / 200 100 ml @ 200 mls/hr IV.SIG Q6H [facility] Rx#:[id number] KCl 20 mEq Premix Inj 20 meq In 100 / 100 100 ml @ 50 mls/hr IV.SIG Q2H [facility] Rx#:[id number] Flagyl 500 MG Inj 100 ML @ 100 100 / 100 200 / 200 100 / 100 mls/hr IV.SIG Q6H [facility] Rx#: [id number] Output: Gastric Drainage 150 / 150 Left Upper Quadrant Gastrostomy 150 / 150 Tube (PEG) Other: # Incontinent Voids 2 # Urine Diapers 8 Date of Last Bowel Movement 07/31/18 Weight 56.3 kg - Imaging and Cardiology Imaging: Impressions Cholangiopancreatography MRI 07/30/18 00:00 CONCLUSION: 1. No intraluminal defects in the gallbladder or common bile duct. 2. Prominent amount of ascites and large bilateral pleural effusions. Percutaneous gastrostomy in place. Elbow X-Ray 07/30/18 00:00 CONCLUSION: Good alignment and position of the bony structures. Chest X-Ray 08/01/18 00:00 CONCLUSION: 1. No central line identified. 2. No pneumothorax is noted. 3. Persistent diffuse infiltrate of the right lung and much less severe patchiness within left lung base. 4. Mild cardiomegaly. Abdomen X-Ray 08/01/18 06:00 CONCLUSION: Mild improvement in the bowel gas pattern compared to the prior study. Assessment and Plan - Assessment (1) Chest pain Code(s): R07.9 - Chest pain, unspecified Status: Acute (2) Elevated troponin level Code(s): R74.8 - Abnormal levels of other serum enzymes Status: Acute (3) Liver failure Code(s): K72.90 - Hepatic failure, unspecified without coma Status: Acute (4) Hyperbilirubinemia Code(s): E80.6 - Other disorders of bilirubin metabolism Status: Acute - Plan There have been no new cardiac issues at this time, we will continue with current cardiac treatment plan. Patient has rhonchi throughout upper and lower lobes bilat, pulmonary evaluation in progress. Patient is not alert as yesterday, MS is still severely impaired, neurology evaluation. Patient's overall prognosis remains poor, palliative care evaluation in progress. The patient was seen and evaluated by Dr. Gonzalez who participated in care, management and decision making. - Attending Attestation Patient seen and examined. I reviewed and agree with the evaluation and plan as presented. Continue current program post OH. No new cardiac issues. Overall prognosis remains poor. Recommend hospice evaluation.
--- NOTE | 2018-08-01 15:38 | P.PNPL ---
Subjective Interval history: 63 YOWM with RF, increased liver enzymes has pulm congestion no hemoptysis Tolerates TF no fever [employer] evaluated pt, severe oropharyngeal dysphagia. Physical Exam Vital signs: Vital Signs 07/31/18 16:00 07/31/18 16:16 07/31/18 16:41 Temperature 97.1 F L Pulse Rate 96 H 92 H Respiratory Rate 20 18 18 Blood Pressure 139/64 Pulse Oximetry 92 L 07/31/18 20:00 07/31/18 21:10 08/01/18 00:00 Temperature 98.0 F 98.3 F Pulse Rate 92 H 92 H 85 Respiratory Rate 18 18 18 Blood Pressure 121/59 L 102/67 Pulse Oximetry 96 96 92 L 08/01/18 03:34 08/01/18 03:35 08/01/18 04:00 Temperature 98.1 F Pulse Rate 94 H 80 Respiratory Rate 19 18 Blood Pressure 118/59 L Pulse Oximetry 95 94 L 08/01/18 07:19 08/01/18 11:47 Temperature 97.2 F L 97.0 F L Pulse Rate 90 81 Respiratory Rate 18 18 Blood Pressure 105/52 L 105/56 L Pulse Oximetry 93 L 90 L Intake & Output 07/31/18 08/01/18 08/01/18 18:59 06:59 18:59 Intake Total 550 / 550 1450 / 1450 900 / 900 Output Total 150 / 150 Balance 550 / 550 1450 / 1450 750 / 750 Weight 56.3 kg Intake: IV 550 / 550 1450 / 1450 900 / 900 D5W/1/2 NS Inj 1,000 ML @ 50 325 / 325 mls/hr IV.CONT .Q20H [facility] Rx#: [id number] D5W/1/2NS + KCL 20 mEq Inj 1, 1000 / 1000 325 / 325 000 ML @ 50 mls/hr IV.CONT . Q20H [facility] Rx#:[id number] Flexbumin 25% Inj 50 ML @ 60 50 / 50 50 / 50 50 / 50 mls/hr IV.SIG Q12H [facility] Rx#: [id number] Zosyn 4.5 GM Premix 4.5 gm In 200 / 200 200 / 200 100 ml @ 200 mls/hr IV.SIG Q6H [facility] Rx#:[id number] KCl 20 mEq Premix Inj 20 meq In 100 / 100 100 / 100 100 ml @ 50 mls/hr IV.SIG Q2H [facility] Rx#:[id number] Flagyl 500 MG Inj 100 ML @ 100 200 / 200 200 / 200 100 / 100 mls/hr IV.SIG Q6H [facility] Rx#: [id number] Output: Gastric Drainage 150 / 150 Left Upper Quadrant Gastrostomy 150 / 150 Tube (PEG) Other: # Incontinent Voids 2 # Urine Diapers 8 Date of Last Bowel Movement 07/31/18 GENERAL: Elderly WM, NAD SKIN: Warm and dry. HEAD: Normocephalic. EYES: scleral icterus. No injection or drainage. NECK: Supple, trachea midline. No JVD or lymphadenopathy. CARDIOVASCULAR: Regular rate and rhythm without murmurs, gallops, or rubs. RESPIRATORY: Breath sounds equal bilaterally. No accessory muscle use. GASTROINTESTINAL: Abdomen soft, non-tender, nondistended. MUSCULOSKELETAL: No cyanosis, or edema. BACK: Nontender without obvious deformity. No CVA tenderness. - Urinary Catheter Management Indwelling Urethral Catheter Cath placed during this visit: yes, but has since been removed by the nurse Reason for continuing: Decision to DC catheter Insertion date: 07/12/18 Insertion time: 07:45 Removal date: 07/19/18 Removal time: 10:45 Condom Cath placed during this visit: yes Urethral indwelling: No Reason for continuing: Not indwelling catheter Insertion date: 07/19/18 Insertion time: 10:50 Assessment and Plan - Plan IMPRESSION: 1. Methicillin-resistant Staphylococcus aureus. 2. Urinary tract infection. 3. Sepsis. 4. Hemoptysis. 5. Respiratory distress status post extubation. 6. Increased liver enzymes. 7. Thrombocytopenia. 8. The patient is homeless. 9. Nicotine use. 10. Alcohol use. PLAN: Tube feeding monitor Lytes monitor Plt count Protonix 40 mg IV daily Supplement 02 to keep sat >90% LasixIV Cont Abx
[2018-08-01] MEDS: Aztreonam Inj 2 GM in Sodium Chloride 0.9% Inj 100 ML IV.SIG SCH ×2 (15:50→22:11)
--- NOTE | 2018-08-01 16:00 | P.PNGI ---
Subjective Interval history: Patient weaker today Confused unable to track movement Nonverbal <[place] - Last Filed: 08/01/18 15:53> Physical Exam Vital signs: Vital Signs 07/31/18 16:00 07/31/18 16:16 07/31/18 16:41 Temperature 97.1 F L Pulse Rate 96 H 92 H Respiratory Rate 20 18 18 Blood Pressure 139/64 Pulse Oximetry 92 L 07/31/18 20:00 07/31/18 21:10 08/01/18 00:00 Temperature 98.0 F 98.3 F Pulse Rate 92 H 92 H 85 Respiratory Rate 18 18 18 Blood Pressure 121/59 L 102/67 Pulse Oximetry 96 96 92 L 08/01/18 03:34 08/01/18 03:35 08/01/18 04:00 Temperature 98.1 F Pulse Rate 94 H 80 Respiratory Rate 19 18 Blood Pressure 118/59 L Pulse Oximetry 95 94 L 08/01/18 07:19 08/01/18 11:47 08/01/18 15:47 Temperature 97.2 F L 97.0 F L Pulse Rate 90 81 76 Respiratory Rate 18 18 16 Blood Pressure 105/52 L 105/56 L Pulse Oximetry 93 L 90 L Intake & Output 07/31/18 08/01/18 08/01/18 18:59 06:59 18:59 Intake Total 550 / 550 1450 / 1450 1000 / 1000 Output Total 150 / 150 Balance 550 / 550 1450 / 1450 850 / 850 Weight 56.3 kg Intake: IV 550 / 550 1450 / 1450 1000 / 1000 D5W/1/2 NS Inj 1,000 ML @ 50 325 / 325 mls/hr IV.CONT .Q20H [facility] Rx#: [id number] D5W/1/2NS + KCL 20 mEq Inj 1, 1000 / 1000 325 / 325 000 ML @ 50 mls/hr IV.CONT . Q20H [place] Rx#:[id number] Flexbumin 25% Inj 50 ML @ 60 50 / 50 50 / 50 50 / 50 mls/hr IV.SIG Q12H [place] Rx#: [id number] Zosyn 4.5 GM Premix 4.5 gm In 200 / 200 200 / 200 100 ml @ 200 mls/hr IV.SIG Q6H [place] Rx#:[id number] KCl 20 mEq Premix Inj 20 meq In 100 / 100 200 / 200 100 ml @ 50 mls/hr IV.SIG Q2H [place] Rx#:[id number] Flagyl 500 MG Inj 100 ML @ 100 200 / 200 200 / 200 100 / 100 mls/hr IV.SIG Q6H [place] Rx#: [id number] Output: Gastric Drainage 150 / 150 Left Upper Quadrant Gastrostomy 150 / 150 Tube (PEG) Other: # Incontinent Voids 2 # Urine Diapers 8 Date of Last Bowel Movement 07/31/18 - Constitutional chronically ill appearing - Routine HEENT Exam Head: Present: normocephalic Eye: Present: conjunctival icterus - Routine Respiratory Exam Present: CTA bilaterally. Absent: accessory muscle use, respiratory distress - Routine Cardiovascular Exam Present: RRR, S1, S2 - Routine Abdominal Exam Present: normoactive bowel sounds, distended. Absent: tenderness Comments: Nurse reports PEG tube site has bilious colored drainage G-tube to intermittent low wall suction-100 mL's output noted decreasing Abdomen distended - Routine Extremities Exam Absent: edema - Routine Skin Exam Present: dry, warm, jaundice - Routine Neurological Exam Present: altered mental status - Urinary Catheter Management Indwelling Urethral Catheter Cath placed during this visit: yes, but has since been removed by the nurse Reason for continuing: Decision to DC catheter Insertion date: 07/12/18 Insertion time: 07:45 Removal date: 07/19/18 Removal time: 10:45 Condom Cath placed during this visit: yes Urethral indwelling: No Reason for continuing: Not indwelling catheter Insertion date: 07/19/18 Insertion time: 10:50 <[place] - Last Filed: 08/01/18 15:53> Vital signs: Vital Signs 07/31/18 16:41 07/31/18 20:00 07/31/18 21:10 Temperature 98.0 F Pulse Rate 92 H 92 H Respiratory Rate 18 18 18 Blood Pressure 121/59 L Pulse Oximetry 96 96 08/01/18 00:00 08/01/18 03:34 08/01/18 03:35 Temperature 98.3 F Pulse Rate 85 94 H Respiratory Rate 18 19 Blood Pressure 102/67 Pulse Oximetry 92 L 95 08/01/18 04:00 08/01/18 07:19 08/01/18 11:47 Temperature 98.1 F 97.2 F L 97.0 F L Pulse Rate 80 90 81 Respiratory Rate 18 18 18 Blood Pressure 118/59 L 105/52 L 105/56 L Pulse Oximetry 94 L 93 L 90 L 08/01/18 15:47 Temperature Pulse Rate 76 Respiratory Rate 16 Blood Pressure Pulse Oximetry Intake & Output 07/31/18 08/01/18 08/01/18 18:59 06:59 18:59 Intake Total 550 / 550 1450 / 1450 1000 / 1000 Output Total 150 / 150 Balance 550 / 550 1450 / 1450 850 / 850 Weight 56.3 kg Intake: IV 550 / 550 1450 / 1450 1000 / 1000 D5W/1/2 NS Inj 1,000 ML @ 50 325 / 325 mls/hr IV.CONT .Q20H [facility] Rx#: [id number] D5W/1/2NS + KCL 20 mEq Inj 1, 1000 / 1000 325 / 325 000 ML @ 50 mls/hr IV.CONT . Q20H [facility] Rx#:[id number] Flexbumin 25% Inj 50 ML @ 60 50 / 50 50 / 50 50 / 50 mls/hr IV.SIG Q12H [facility] Rx#: [id number] Zosyn 4.5 GM Premix 4.5 gm In 200 / 200 200 / 200 100 ml @ 200 mls/hr IV.SIG Q6H [place] Rx#:[id number] KCl 20 mEq Premix Inj 20 meq In 100 / 100 200 / 200 100 ml @ 50 mls/hr IV.SIG Q2H [facility] Rx#:[id number] Flagyl 500 MG Inj 100 ML @ 100 200 / 200 200 / 200 100 / 100 mls/hr IV.SIG Q6H [facility] Rx#: [id number] Output: Gastric Drainage 150 / 150 Left Upper Quadrant Gastrostomy 150 / 150 Tube (PEG) Other: # Incontinent Voids 2 # Urine Diapers 8 Date of Last Bowel Movement 07/31/18 - Urinary Catheter Management Indwelling Urethral Catheter Cath placed during this visit: no Condom Cath placed during this visit: no <Donta Sanchez - Last Filed: 08/01/18 16:33> Results - Labs CBC & Chem 7: 08/01/18 04:24 08/01/18 04:24 Laboratory Results - last 24 hr 07/31/18 07/31/18 08/01/18 16:50 23:54 04:24 WBC 22.2 H RBC 2.96 L Hgb 10.3 L Hct 30.1 L MCV 101.5 H MCH 34.7 H MCHC 34.2 RDW 19.6 H Plt Count 115 L MPV 11.2 H Neut % (Auto) 85.2 H Lymph % (Auto) 6.5 L [place] % (Auto) 7.2 Eos % (Auto) 0.2 Baso % (Auto) 0.9 Neut # (Auto) 18.9 H Lymph # (Auto) 1.4 [place] # (Auto) 1.6 H Eos # (Auto) 0.0 Baso # (Auto) 0.2 WBC Differential . Differential Comment Auto diff final Sodium Potassium Chloride Carbon Dioxide Anion Gap BUN Creatinine Estimated GFR POC Glucose 110 113 H Random Glucose Calcium Magnesium Total Bilirubin AST ALT Alkaline Phosphatase Total Protein Albumin 08/01/18 08/01/18 08/01/18 04:24 08:33 11:54 WBC RBC Hgb Hct MCV MCH MCHC RDW Plt Count MPV Neut % (Auto) Lymph % (Auto) [place] % (Auto) Eos % (Auto) Baso % (Auto) Neut # (Auto) Lymph # (Auto) [place] # (Auto) Eos # (Auto) Baso # (Auto) WBC Differential Differential Comment Sodium 152 H Potassium 2.8 L* Chloride 114 H Carbon Dioxide 25.6 Anion Gap 12 BUN 49 H Creatinine 1.84 H Estimated GFR 38 L POC Glucose 141 H 120 H Random Glucose 125 H Calcium 7.7 L Magnesium 2.5 Total Bilirubin 21.1 H AST 112 H ALT 75 Alkaline Phosphatase 152 H Total Protein 5.5 L Albumin 1.9 L Microbiology 07/28/18 13:52 Blood - Peripheral Aerobic Blood Culture - Preliminary No growth in 4 days 07/28/18 13:52 Blood - Peripheral Anaerobic Blood Culture - Preliminary No growth in 4 days 07/28/18 13:57 Blood - Peripheral Aerobic Blood Culture - Preliminary No growth in 4 days 07/28/18 13:57 Blood - Peripheral Anaerobic Blood Culture - Preliminary No growth in 4 days - Imaging Impressions Chest X-Ray 08/01/18 00:00 CONCLUSION: 1. Persistent diffuse infiltrate of the right lung and much less severe patchiness in the left lung base. 2. Stable cardiomegaly. Abdomen X-Ray 08/01/18 06:00 CONCLUSION: Mild improvement in the bowel gas pattern compared to the prior study. - Procedures PEG <[place] - Last Filed: 08/01/18 15:53> - Labs CBC & Chem 7: 08/01/18 04:24 08/01/18 04:24 Laboratory Results - last 24 hr 07/31/18 07/31/18 08/01/18 16:50 23:54 04:24 WBC 22.2 H RBC 2.96 L Hgb 10.3 L Hct 30.1 L MCV 101.5 H MCH 34.7 H MCHC 34.2 RDW 19.6 H Plt Count 115 L MPV 11.2 H Neut % (Auto) 85.2 H Lymph % (Auto) 6.5 L [place] % (Auto) 7.2 Eos % (Auto) 0.2 Baso % (Auto) 0.9 Neut # (Auto) 18.9 H Lymph # (Auto) 1.4 [place] # (Auto) 1.6 H Eos # (Auto) 0.0 Baso # (Auto) 0.2 WBC Differential . Differential Comment Auto diff final Sodium Potassium Chloride Carbon Dioxide Anion Gap BUN Creatinine Estimated GFR POC Glucose 110 113 H Random Glucose Calcium Magnesium Total Bilirubin AST ALT Alkaline Phosphatase Total Protein Albumin 08/01/18 08/01/18 08/01/18 04:24 08:33 11:54 WBC RBC Hgb Hct MCV MCH MCHC RDW Plt Count MPV Neut % (Auto) Lymph % (Auto) [place] % (Auto) Eos % (Auto) Baso % (Auto) Neut # (Auto) Lymph # (Auto) [place] # (Auto) Eos # (Auto) Baso # (Auto) WBC Differential Differential Comment Sodium 152 H Potassium 2.8 L* Chloride 114 H Carbon Dioxide 25.6 Anion Gap 12 BUN 49 H Creatinine 1.84 H Estimated GFR 38 L POC Glucose 141 H 120 H Random Glucose 125 H Calcium 7.7 L Magnesium 2.5 Total Bilirubin 21.1 H AST 112 H ALT 75 Alkaline Phosphatase 152 H Total Protein 5.5 L Albumin 1.9 L Microbiology 07/28/18 13:52 Blood - Peripheral Aerobic Blood Culture - Preliminary No growth in 4 days 07/28/18 13:52 Blood - Peripheral Anaerobic Blood Culture - Preliminary No growth in 4 days 07/28/18 13:57 Blood - Peripheral Aerobic Blood Culture - Preliminary No growth in 4 days 07/28/18 13:57 Blood - Peripheral Anaerobic Blood Culture - Preliminary No growth in 4 days - Imaging Impressions Chest X-Ray 08/01/18 00:00 CONCLUSION: 1. Persistent diffuse infiltrate of the right lung and much less severe patchiness in the left lung base. 2. Stable cardiomegaly. Abdomen X-Ray 08/01/18 06:00 CONCLUSION: Mild improvement in the bowel gas pattern compared to the prior study. <Donta Sanchez - Last Filed: 08/01/18 16:33> Assessment and Plan (1) Liver failure Status: Acute Code(s): K72.90 - Hepatic failure, unspecified without coma (2) Hyperbilirubinemia Status: Acute Code(s): E80.6 - Other disorders of bilirubin metabolism - Plan Assessment: - Elevated LFTs with findings indicative of cirrhosis likely alcohol related Worsening hyperalbuminemia, liver failure Worsening bili could be secondary to hepatic dysfunction and liver failure No hx IV drug use, or tattoos or any high risk sexual behaviors. No family history of liver issues. Hx of cocaine. Hx of sixpack of beer daily. Liver work up: BOBBY, ASMA, AMA negative, Ceruloplasmin 24. AAT 215. AFP-3.7. Iron-123 TIBC-217 %sat-56.7 Ferritin-9759, Hfe negative Hepatitis panel negative. 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 The SMA and MIC are patent. Hepatic steatosis. HIDA (07/09/18) No activity in intrahepatic ducts, common duct or small bowel. Considerations include include acute obstruction of the common duct and diffuse hepatocellular disease. CT scan shows no dilatation of the common duct or intrahepatic ducts. Diffuse hepatocellular disease is suspected. Given history of cirrhosis, exam is unreliable, do not suspect acute cholecystitis. US gallbladder (07/08/18) Small, nonspecific pericholecystic fluid without stones, wall thickening or sonographic Lundy's sign. The fluid may be on the basis of hepatocellular disease. The ultrasound does not support acute cholecystitis. Fatty infiltrated and mildly enlarged liver. - Ileus- Per nurse, pt had good Bm last night Abdomen X-Ray 07/28/18 1. Gastrostomy catheter in place. 2. Stable bowel gas pattern with mild to moderate colonic stool and marginal distention of the transverse colon. Differential considerations include constipation versus mild developing colonic ileus - Anemia- No bleeding reported, no EGD or colonoscopy in the past. - Coagulopathy, thrombocytopenia, hypoalbuminemia- in setting of cirrhosis - MRSA bacteremia- ID following, abx - Elevated troponin levels- Cardiology following - S/P PEG tube placement by IR 07/22/18 07/30/2018 Gastrostomy tube noted Moderate amount of bilious drainage seeping from PEG tube site-no bleeding noted or reported Abdomen distended 07/29/2018 liver ultrasound revealed the following--. Mild gallbladder wall thickening. If there is clinical concern for cholecystitis , a hepatobiliary scan may be helpful to confirm cystic duct obstruction. Enlarged fatty liver. Some ascites along the edge of the liver and spleen. Echogenic right kidney suggesting possible medical renal disease. Poor visualization of the pancreas due to shadowing bowel gas. 07/30/2018 KUB revealed the following-- Gastrostomy tube noted. Moderate gaseous distention of colon, primarily the proximal colon which appears slightly worse than on previous exam. Cecum is dilated to greater than 9 cm. 07/30/2018 WBC 14.0 hemoglobin 8.9 hematocrit 26.3 platelet count 118 Total bilirubin 21 AST 119 ALT 90 alk phos 180 trending down 07/29/2018 ammonia level 30 07/31/2018 Gastrostomy tube noted Moderate amount of bilious drainage seeping from PEG tube site-no bleeding noted Abdomen less distended 800 mL's of bilious drainage noted in collection container, staff nurse reports collection total since 5 PM yesterday States patient having small amounts of loose stool WBC 14.9 hemoglobin 10.0 hematocrit 29.3 platelet count 121 Total bilirubin 20.7 AST 112 ALT 87 alk phos 172 07/30/2018 MRCP revealed the following findings-. No intraluminal defects in the gallbladder or common bile duct. Prominent amount of ascites and large bilateral pleural effusions. Percutaneous gastrostomy in place. 08/01/2018 Bedside RN reports moderate amount of bilious drainage seeping from PEG tube site G-tube to intermittent wall suction, 100 mL's noted in collection container, decreasing Patient lethargic, nonverbal today Unable to track movement WBC 22.2 hemoglobin 10.3 hematocrit 30.1 platelet count 115 Total bilirubin 21.1 AST 112 ALT 75 alk phos 152 Plan Hold G-tube feedings G-tube to low intermittent wall suction Continue spironolactone 100 mg p.o. daily Monitor labs, lipase ammonia and LFTs, CBC Continue lactulose, Reglan and Xifaxan Palliative care following Infectious disease following-leukocytosis Supportive care Prognosis poor This patient has been seen by myself and Dr. Sanchez and this note is written on his behalf - Attending Attestation Dr. Sanchez <[place] - Last Filed: 08/01/18 15:53> (1) Liver failure Status: Acute Code(s): K72.90 - Hepatic failure, unspecified without coma (2) Hyperbilirubinemia Status: Acute Code(s): E80.6 - Other disorders of bilirubin metabolism - Attending Attestation As above, supportive care for now. Will follow up with you. <Donta Sanchez - Last Filed: 08/01/18 16:33>
[2018-08-01] MEDS ORDERED: Sodium Chlor 0.9% Inj 500 ML IV.SIG ONE ×2 (17:00→17:13)
[2018-08-02] MEDS: NACL 0.3% IV.CONT SCH ×3 (05:55→23:34)
[2018-08-02] MEDS: DEXTROSE IV.CONT SCH ×3 (05:55→23:34)
[2018-08-02] MEDS: POTASSIUM CHLORIDE IV.CONT SCH ×3 (05:55→23:34)
[2018-08-02] MEDS: Aztreonam Inj 2 GM in Sodium Chloride 0.9% Inj 100 ML IV.SIG SCH ×3 (05:55→23:34)
[2018-08-02] MEDS: Oral Hygiene Kit OROPHARYNG SCH ×3 (05:57→15:22)
[2018-08-02 06:05] LABS: Amorphous Sediment,Urine Rare /hpf; Bacteria,Urine Rare /hpf; Bilirubin,Urine Moderate (Negative); Clarity,Urine Hazy (Clear); Color,Urine Amber (Yellw/Straw); Glucose,Urine (UA) 50 mg/dL (Negative); Leukocyte Esterase,Urine Negative (Negative); Mucus,Urine Few /lpf (Occasional); Nitrite,Urine Negative (Negative); Specific Gravity,Urine 1.023 (1.002-1.035)
[2018-08-02 06:06] LABS: Ictotest,Urine Positive (Negative); Urobilinogen,Urine 0.2 mg/dL (Less than 2)
[2018-08-02 09:05] LABS: Baso # (Auto) 0.2 th/mm3 (0.0-0.2); Eos # (Auto) 0.1 th/mm3 (0.0-0.4); Eos % (Auto) 0.3 % (0.0-4.0); Hematocrit 28.8 % (39.0-51.0); Hemoglobin 9.9 gm/dL (13.0-17.0); Lymph # (Auto) 1.3 th/mm3 (1.0-4.8); Lymph % (Auto) 5.4 % (9.0-44.0); Mean Corpuscular HGB Conc 34.3 % (32.0-36.0); Mean Corpuscular Volume 102.2 fL (80.0-100.0); Mono # (Auto) 1.8 th/mm3 (0.0-0.9); Mono % (Auto) 7.3 % (0.0-8.0); Neut # (Auto) 21.1 th/mm3 (1.8-7.7); Platelet Count 103 th/mm3 (150-450); Red Blood Count 2.82 mil/mm3 (4.50-5.90); Red Cell Distribution Width 20.3 % (11.6-17.2); White Blood Count 24.5 th/mm3 (4.0-11.0)
[2018-08-02] MEDS: Insulin NovoLOG Aspart Correctional Sugar Inj SQ SCH ×3 (09:29→17:25)
[2018-08-02] MEDS: Chlorhexidine 0.12% Oral Kit 15 ML UDC OROPHARYNG SCH ×2 (09:29→23:29)
[2018-08-02 09:51] LABS: Albumin 1.9 g/dL (3.4-5.0); Anion Gap 14 meq/L (5-15); Aspartate Aminotransferase 113 U/L (15-37); Blood Urea Nitrogen 56 mg/dL (7-18); Chloride 119 meq/L (98-107); Glomerular Filtration Rate 26 mL/min (>89); Glucose,Random 125 mg/dL (74-106); Magnesium 2.6 mg/dL (1.5-2.5); Potassium 3.3 meq/L (3.5-5.1); Sodium 154 meq/L (136-145)
[2018-08-02] MEDS: Metoclopramide 10 MG Tablet G-TUBE SCH ×3 (09:51→17:25)
[2018-08-02] MEDS: rifAXIMin 550 MG Tablet PO SCH ×2 (09:51→23:30)
[2018-08-02] MEDS: Mupirocin 2% Nasal Oint Topical Syringe EACH NARE SCH ×2 (09:51→23:29)
[2018-08-02 09:52] LABS: Alanine Aminotransferase 70 U/L (12-78)
[2018-08-02 09:54] LABS: Alkaline Phosphatase 149 U/L (45-117); Total Protein 5.3 g/dL (6.4-8.2)
[2018-08-02] MEDS: Pantoprazole Inj 40 MG Vial IV.PUSH SCH (10:01)
[2018-08-02] MEDS: Albumin Human 25% Inj 50 ML IV.SIG SCH ×3 (11:57→23:34)
--- NOTE | 2018-08-02 12:16 | P.PNGI ---
Subjective Interval history: Resting in the bed, no family in room Eyes open response to small amount of verbal communication, weakness, appears fatigued Increase in WBC count 24.5, hemoglobin 9.9, PEG tube connected to low intermittent suction with dark/medium colored bilious fluid <No Charles M - Last Filed: 08/02/18 12:07> Physical Exam Vital signs: Vital Signs 08/01/18 15:47 08/01/18 16:00 08/01/18 20:00 Temperature 98.6 F 97.6 F Pulse Rate 76 84 88 Respiratory Rate 16 20 18 Blood Pressure 66/45 L 78/49 L Pulse Oximetry 93 L 89 L 08/01/18 20:52 08/02/18 00:00 08/02/18 03:11 Temperature 97.6 F Pulse Rate 89 90 85 Respiratory Rate 18 18 18 Blood Pressure 80/55 L Pulse Oximetry 94 L 96 08/02/18 04:00 08/02/18 08:14 08/02/18 09:00 Temperature 97.8 F 97.5 F L Pulse Rate 100 H 92 H 93 H Respiratory Rate 18 16 14 Blood Pressure 95/55 L 92/60 L Pulse Oximetry 96 98 Intake & Output 08/01/18 08/02/18 08/02/18 18:59 06:59 18:59 Intake Total 2200 / 2200 1220 / 1220 1320 / 1320 Output Total 150 / 150 Balance 2049 / 0 1220 / 1220 1320 / 1320 Weight 56.5 kg Intake: IV 2200 / 2200 1220 / 1220 1320 / 1320 D5W/1/2 NS Inj 1,000 ML @ 50 325 / 325 mls/hr IV.CONT .Q20H [facility] Rx#: [id number] D5W/1/2NS + KCL 20 mEq Inj 1, 325 / 325 000 ML @ 50 mls/hr IV.CONT . Q20H [facility] Rx#:[id number] KCl Inj 40 MEQ In D5W/1/3 NS 1020 / 1020 1020 / 1020 Inj 1,000 ML @ 84 mls/hr IV. CONT .Q12H9M [facility] Rx#:[id number] Flexbumin 25% Inj 50 ML @ 60 50 / 50 mls/hr IV.SIG Q12H [facility] Rx#: [id number] Azactam Inj 2 GM In NS Inj 100 100 / 100 100 / 100 100 / 100 ML @ 200 mls/hr IV.SIG Q8H [facility] Rx#:[id number] KCl 20 mEq Premix Inj 20 meq In 200 / 200 100 ml @ 50 mls/hr IV.SIG Q2H [facility] Rx#:[id number] NS Inj 500 ML @ Wide Open IV. 1000 / 1000 SIG BOLUS ONE Rx#:[id number] Flagyl 500 MG Inj 100 ML @ 100 200 / 200 100 / 100 200 / 200 mls/hr IV.SIG Q6H [facility] Rx#: [id number] Output: Gastric Drainage 150 / 150 Left Upper Quadrant Gastrostomy 150 / 150 Tube (PEG) Other: # Incontinent Voids 3 # Urine Diapers 5 Date of Last Bowel Movement 08/01/18 08/01/18 08/02/18 # Bowel Movements 1 # Incontinent Bowel Movements 1 - Constitutional moderate distress, thin, cachectic, disheveled (Soft wrist restraints for patient's protection and safety) - Routine HEENT Exam Head: Present: normocephalic ENT: Present: mucous membranes dry - Routine Respiratory Exam Present: decreased breath sounds (Low volumes no audible rhonchi or wheezing) - Routine Cardiovascular Exam Present: S1, S2 - Routine Abdominal Exam Present: normoactive bowel sounds (Soft bowel sounds, round,), distended ( Palpable liver edges) - Routine Extremities Exam Present: edema (Abdominal) - Routine Skin Exam Present: pallor, jaundice (Mild) - Routine Neurological Exam Present: altered mental status (Mild but attempts to answer simple questions) - Detailed Neurological Exam: Coma Scale Verbal Response: Confused (Mild altered mental status) - Urinary Catheter Management Indwelling Urethral Catheter Cath placed during this visit: yes, but has since been removed by the nurse Reason for continuing: Decision to DC catheter Insertion date: 07/12/18 Insertion time: 07:45 Removal date: 07/19/18 Removal time: 10:45 Condom Cath placed during this visit: yes Urethral indwelling: No Reason for continuing: Not indwelling catheter Insertion date: 07/19/18 Insertion time: 10:50 <No Charles - Last Filed: 08/02/18 12:07> Vital signs: Vital Signs 08/01/18 15:47 08/01/18 16:00 08/01/18 20:00 Temperature 98.6 F 97.6 F Pulse Rate 76 84 88 Respiratory Rate 16 20 18 Blood Pressure 66/45 L 78/49 L Pulse Oximetry 93 L 89 L 08/01/18 20:52 08/02/18 00:00 08/02/18 03:11 Temperature 97.6 F Pulse Rate 89 90 85 Respiratory Rate 18 18 18 Blood Pressure 80/55 L Pulse Oximetry 94 L 96 08/02/18 04:00 08/02/18 08:14 08/02/18 09:00 Temperature 97.8 F 97.5 F L Pulse Rate 100 H 92 H 93 H Respiratory Rate 18 16 14 Blood Pressure 95/55 L 92/60 L Pulse Oximetry 96 98 08/02/18 11:35 Temperature 97.7 F Pulse Rate 93 H Respiratory Rate 18 Blood Pressure 98/56 L Pulse Oximetry 96 Intake & Output 08/01/18 08/02/18 08/02/18 18:59 06:59 18:59 Intake Total 2200 / 2200 1220 / 1220 1320 / 1320 Output Total 150 / 150 Balance 2049 / 0 1220 / 1220 1320 / 1320 Weight 56.5 kg Intake: IV 2200 / 2200 1220 / 1220 1320 / 1320 D5W/1/2 NS Inj 1,000 ML @ 50 325 / 325 mls/hr IV.CONT .Q20H [facility] Rx#: [id number] D5W/1/2NS + KCL 20 mEq Inj 1, 325 / 325 000 ML @ 50 mls/hr IV.CONT . Q20H [facility] Rx#:[id number] KCl Inj 40 MEQ In D5W/1/3 NS 1020 / 1020 1020 / 1020 Inj 1,000 ML @ 84 mls/hr IV. CONT .Q12H9M [facility] Rx#:[id number] Flexbumin 25% Inj 50 ML @ 60 50 / 50 mls/hr IV.SIG Q12H [facility] Rx#: [id number] Azactam Inj 2 GM In NS Inj 100 100 / 100 100 / 100 100 / 100 ML @ 200 mls/hr IV.SIG Q8H [facility] Rx#:[id number] KCl 20 mEq Premix Inj 20 meq In 200 / 200 100 ml @ 50 mls/hr IV.SIG Q2H [facility] Rx#:[id number] NS Inj 500 ML @ Wide Open IV. 1000 / 1000 SIG BOLUS ONE Rx#:[id number] Flagyl 500 MG Inj 100 ML @ 100 200 / 200 100 / 100 200 / 200 mls/hr IV.SIG Q6H [facility] Rx#: [id number] Output: Gastric Drainage 150 / 150 Left Upper Quadrant Gastrostomy 150 / 150 Tube (PEG) Other: # Incontinent Voids 3 # Urine Diapers 5 Date of Last Bowel Movement 08/01/18 08/01/18 08/02/18 # Bowel Movements 1 # Incontinent Bowel Movements 1 - Urinary Catheter Management Indwelling Urethral Catheter Cath placed during this visit: no Condom Cath placed during this visit: no <Donta Sanchez A - Last Filed: 08/02/18 13:25> Results - Labs CBC & Chem 7: 08/02/18 08:24 08/02/18 08:24 Laboratory Results - last 24 hr 08/01/18 08/01/18 08/01/18 11:54 14:40 17:04 WBC RBC Hgb Hct MCV MCH MCHC RDW Plt Count MPV Neut % (Auto) Lymph % (Auto) [place] % (Auto) Eos % (Auto) Baso % (Auto) Neut # (Auto) Lymph # (Auto) [place] # (Auto) Eos # (Auto) Baso # (Auto) WBC Differential Differential Comment Sodium Potassium Chloride Carbon Dioxide Anion Gap BUN Creatinine Estimated GFR POC Glucose 120 H 120 H Random Glucose Calcium Magnesium Total Bilirubin AST ALT Alkaline Phosphatase Total Protein Albumin Urine Color Urine Clarity Urine pH Ur Specific [place] Urine Protein Urine Glucose (UA) Urine Ketones Urine Occult Blood Urine Nitrate Urine Bilirubin Urine Ictotest Urine Urobilinogen Ur Leukocyte Esterase Urine RBC Urine WBC Amorphous Sediment Urine Bacteria Urine Mucus Micro UA Comment Ur Microscopic Review Urine Culture Comments Stl C.difficile DNA Amp Negative St C. diff Tox Epid 027 Negative 08/01/18 08/02/18 08/02/18 22:18 05:15 06:24 WBC RBC Hgb Hct MCV MCH MCHC RDW Plt Count MPV Neut % (Auto) Lymph % (Auto) [place] % (Auto) Eos % (Auto) Baso % (Auto) Neut # (Auto) Lymph # (Auto) [place] # (Auto) Eos # (Auto) Baso # (Auto) WBC Differential Differential Comment Sodium Potassium Chloride Carbon Dioxide Anion Gap BUN Creatinine Estimated GFR POC Glucose 144 H 132 H Random Glucose Calcium Magnesium Total Bilirubin AST ALT Alkaline Phosphatase Total Protein Albumin Urine Color [place] Urine Clarity Hazy H Urine pH 5.0 Ur Specific [place] 1.023 Urine Protein 30 H Urine Glucose (UA) 50 Urine Ketones Negative Urine Occult Blood Small H Urine Nitrate Negative Urine Bilirubin Moderate H Urine Ictotest Positive H Urine Urobilinogen 0.2 Ur Leukocyte Esterase Negative Urine RBC Less than 1 Urine WBC 5 Amorphous Sediment Rare H Urine Bacteria Rare H Urine Mucus Few H Micro UA Comment Cath-culture ind Ur Microscopic Review Not Reportable Urine Culture Comments Cath-cult indicated Stl C.difficile DNA Amp St C. diff Tox Epid 027 08/02/18 08/02/18 08/02/18 07:58 08:24 08:24 WBC 24.5 H RBC 2.82 L Hgb 9.9 L Hct 28.8 L MCV 102.2 H MCH 35.0 H MCHC 34.3 RDW 20.3 H Plt Count 103 L MPV 12.0 H Neut % (Auto) 86.0 H Lymph % (Auto) 5.4 L [place] % (Auto) 7.3 Eos % (Auto) 0.3 Baso % (Auto) 1.0 Neut # (Auto) 21.1 H Lymph # (Auto) 1.3 [place] # (Auto) 1.8 H Eos # (Auto) 0.1 Baso # (Auto) 0.2 WBC Differential . Differential Comment Auto diff final Sodium 154 H Potassium 3.3 L Chloride 119 H Carbon Dioxide 21.0 Anion Gap 14 BUN 56 H Creatinine 2.57 H Estimated GFR 26 L POC Glucose 117 H Random Glucose 125 H Calcium 8.0 L Magnesium 2.6 H Total Bilirubin 20.6 H AST 113 H ALT 70 Alkaline Phosphatase 149 H Total Protein 5.3 L Albumin 1.9 L Urine Color Urine Clarity Urine pH Ur Specific [place] Urine Protein Urine Glucose (UA) Urine Ketones Urine Occult Blood Urine Nitrate Urine Bilirubin Urine Ictotest Urine Urobilinogen Ur Leukocyte Esterase Urine RBC Urine WBC Amorphous Sediment Urine Bacteria Urine Mucus Micro UA Comment Ur Microscopic Review Urine Culture Comments Stl C.difficile DNA Amp St C. diff Tox Epid 027 Microbiology 08/01/18 09:40 Blood - Peripheral Aerobic Blood Culture - Preliminary No growth in 1 day 08/01/18 09:40 Blood - Peripheral Anaerobic Blood Culture - Preliminary No growth in 1 day 08/01/18 09:45 Blood - Peripheral Aerobic Blood Culture - Preliminary No growth in 1 day 08/01/18 09:45 Blood - Peripheral Anaerobic Blood Culture - Preliminary No growth in 1 day 07/28/18 13:52 Blood - Peripheral Aerobic Blood Culture - Final No growth in 5 days 07/28/18 13:52 Blood - Peripheral Anaerobic Blood Culture - Final No growth in 5 days 07/28/18 13:57 Blood - Peripheral Aerobic Blood Culture - Final No growth in 5 days 07/28/18 13:57 Blood - Peripheral Anaerobic Blood Culture - Final No growth in 5 days - Imaging Impressions Chest X-Ray 08/01/18 00:00 CONCLUSION: 1. Persistent diffuse infiltrate of the right lung and much less severe patchiness in the left lung base. 2. Stable cardiomegaly. - Procedures PEG <No Charles - Last Filed: 08/02/18 12:07> - Labs CBC & Chem 7: 08/02/18 08:24 08/02/18 08:24 Laboratory Results - last 24 hr 08/01/18 08/01/18 08/01/18 14:40 17:04 22:18 WBC RBC Hgb Hct MCV MCH MCHC RDW Plt Count MPV Neut % (Auto) Lymph % (Auto) [place] % (Auto) Eos % (Auto) Baso % (Auto) Neut # (Auto) Lymph # (Auto) [place] # (Auto) Eos # (Auto) Baso # (Auto) WBC Differential Differential Comment Sodium Potassium Chloride Carbon Dioxide Anion Gap BUN Creatinine Estimated GFR POC Glucose 120 H 144 H Random Glucose Calcium Magnesium Total Bilirubin AST ALT Alkaline Phosphatase Total Protein Albumin Urine Color Urine Clarity Urine pH Ur Specific [place] Urine Protein Urine Glucose (UA) Urine Ketones Urine Occult Blood Urine Nitrate Urine Bilirubin Urine Ictotest Urine Urobilinogen Ur Leukocyte Esterase Urine RBC Urine WBC Amorphous Sediment Urine Bacteria Urine Mucus Micro UA Comment Ur Microscopic Review Urine Culture Comments Stl C.difficile DNA Amp Negative St C. diff Tox Epid 027 Negative 08/02/18 08/02/18 08/02/18 05:15 06:24 07:58 WBC RBC Hgb Hct MCV MCH MCHC RDW Plt Count MPV Neut % (Auto) Lymph % (Auto) [place] % (Auto) Eos % (Auto) Baso % (Auto) Neut # (Auto) Lymph # (Auto) [place] # (Auto) Eos # (Auto) Baso # (Auto) WBC Differential Differential Comment Sodium Potassium Chloride Carbon Dioxide Anion Gap BUN Creatinine Estimated GFR POC Glucose 132 H 117 H Random Glucose Calcium Magnesium Total Bilirubin AST ALT Alkaline Phosphatase Total Protein Albumin Urine Color [place] Urine Clarity Hazy H Urine pH 5.0 Ur Specific [place] 1.023 Urine Protein 30 H Urine Glucose (UA) 50 Urine Ketones Negative Urine Occult Blood Small H Urine Nitrate Negative Urine Bilirubin Moderate H Urine Ictotest Positive H Urine Urobilinogen 0.2 Ur Leukocyte Esterase Negative Urine RBC Less than 1 Urine WBC 5 Amorphous Sediment Rare H Urine Bacteria Rare H Urine Mucus Few H Micro UA Comment Cath-culture ind Ur Microscopic Review Not Reportable Urine Culture Comments Cath-cult indicated Stl C.difficile DNA Amp St C. diff Tox Epid 027 08/02/18 08/02/18 08/02/18 08:24 08:24 11:40 WBC 24.5 H RBC 2.82 L Hgb 9.9 L Hct 28.8 L MCV 102.2 H MCH 35.0 H MCHC 34.3 RDW 20.3 H Plt Count 103 L MPV 12.0 H Neut % (Auto) 86.0 H Lymph % (Auto) 5.4 L [place] % (Auto) 7.3 Eos % (Auto) 0.3 Baso % (Auto) 1.0 Neut # (Auto) 21.1 H Lymph # (Auto) 1.3 [place] # (Auto) 1.8 H Eos # (Auto) 0.1 Baso # (Auto) 0.2 WBC Differential . Differential Comment Auto diff final Sodium 154 H Potassium 3.3 L Chloride 119 H Carbon Dioxide 21.0 Anion Gap 14 BUN 56 H Creatinine 2.57 H Estimated GFR 26 L POC Glucose 132 H Random Glucose 125 H Calcium 8.0 L Magnesium 2.6 H Total Bilirubin 20.6 H AST 113 H ALT 70 Alkaline Phosphatase 149 H Total Protein 5.3 L Albumin 1.9 L Urine Color Urine Clarity Urine pH Ur Specific [place] Urine Protein Urine Glucose (UA) Urine Ketones Urine Occult Blood Urine Nitrate Urine Bilirubin Urine Ictotest Urine Urobilinogen Ur Leukocyte Esterase Urine RBC Urine WBC Amorphous Sediment Urine Bacteria Urine Mucus Micro UA Comment Ur Microscopic Review Urine Culture Comments Stl C.difficile DNA Amp St C. diff Tox Epid 027 Microbiology 08/01/18 09:40 Blood - Peripheral Aerobic Blood Culture - Preliminary No growth in 1 day 08/01/18 09:40 Blood - Peripheral Anaerobic Blood Culture - Preliminary No growth in 1 day 08/01/18 09:45 Blood - Peripheral Aerobic Blood Culture - Preliminary No growth in 1 day 08/01/18 09:45 Blood - Peripheral Anaerobic Blood Culture - Preliminary No growth in 1 day 07/28/18 13:52 Blood - Peripheral Aerobic Blood Culture - Final No growth in 5 days 07/28/18 13:52 Blood - Peripheral Anaerobic Blood Culture - Final No growth in 5 days 07/28/18 13:57 Blood - Peripheral Aerobic Blood Culture - Final No growth in 5 days 07/28/18 13:57 Blood - Peripheral Anaerobic Blood Culture - Final No growth in 5 days <Donta Sanchez - Last Filed: 08/02/18 13:25> Assessment and Plan (1) Liver failure Status: Acute Code(s): K72.90 - Hepatic failure, unspecified without coma (2) Hyperbilirubinemia Status: Acute Code(s): E80.6 - Other disorders of bilirubin metabolism - Plan Assessment: - Elevated LFTs with findings indicative of cirrhosis likely alcohol related Worsening hyperalbuminemia, liver failure Worsening bili could be secondary to hepatic dysfunction and liver failure No hx IV drug use, or tattoos or any high risk sexual behaviors. No family history of liver issues. Hx of cocaine. Hx of sixpack of beer daily. Liver work up: BOBBY, ASMA, AMA negative, Ceruloplasmin 24. AAT 215. AFP-3.7. Iron-123 TIBC-217 %sat-56.7 Ferritin-9759, Hfe negative Hepatitis panel negative. 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 The SMA and MIC are patent. Hepatic steatosis. HIDA (07/09/18) No activity in intrahepatic ducts, common duct or small bowel. Considerations include include acute obstruction of the common duct and diffuse hepatocellular disease. CT scan shows no dilatation of the common duct or intrahepatic ducts. Diffuse hepatocellular disease is suspected. Given history of cirrhosis, exam is unreliable, do not suspect acute cholecystitis. US gallbladder (07/08/18) Small, nonspecific pericholecystic fluid without stones, wall thickening or sonographic Lundy's sign. The fluid may be on the basis of hepatocellular disease. The ultrasound does not support acute cholecystitis. Fatty infiltrated and mildly enlarged liver. - Ileus- Per nurse, pt had good Bm last night Abdomen X-Ray 07/28/18 1. Gastrostomy catheter in place. 2. Stable bowel gas pattern with mild to moderate colonic stool and marginal distention of the transverse colon. Differential considerations include constipation versus mild developing colonic ileus - Anemia- No bleeding reported, no EGD or colonoscopy in the past. - Coagulopathy, thrombocytopenia, hypoalbuminemia- in setting of cirrhosis - MRSA bacteremia- ID following, abx - Elevated troponin levels- Cardiology following - S/P PEG tube placement by IR 07/22/18 07/30/2018 Gastrostomy tube noted Moderate amount of bilious drainage seeping from PEG tube site-no bleeding noted or reported Abdomen distended 07/29/2018 liver ultrasound revealed the following--. Mild gallbladder wall thickening. If there is clinical concern for cholecystitis , a hepatobiliary scan may be helpful to confirm cystic duct obstruction. Enlarged fatty liver. Some ascites along the edge of the liver and spleen. Echogenic right kidney suggesting possible medical renal disease. Poor visualization of the pancreas due to shadowing bowel gas. 07/30/2018 KUB revealed the following-- Gastrostomy tube noted. Moderate gaseous distention of colon, primarily the proximal colon which appears slightly worse than on previous exam. Cecum is dilated to greater than 9 cm. 07/30/2018 WBC 14.0 hemoglobin 8.9 hematocrit 26.3 platelet count 118 Total bilirubin 21 AST 119 ALT 90 alk phos 180 trending down 07/29/2018 ammonia level 30 07/31/2018 Gastrostomy tube noted Moderate amount of bilious drainage seeping from PEG tube site-no bleeding noted Abdomen less distended 800 mL's of bilious drainage noted in collection container, staff nurse reports collection total since 5 PM yesterday States patient having small amounts of loose stool WBC 14.9 hemoglobin 10.0 hematocrit 29.3 platelet count 121 Total bilirubin 20.7 AST 112 ALT 87 alk phos 172 07/30/2018 MRCP revealed the following findings-. No intraluminal defects in the gallbladder or common bile duct. Prominent amount of ascites and large bilateral pleural effusions. Percutaneous gastrostomy in place. 08/01/2018 Bedside RN reports moderate amount of bilious drainage seeping from PEG tube site G-tube to intermittent wall suction, 100 mL's noted in collection container, decreasing Patient lethargic, nonverbal today Unable to track movement WBC 22.2 hemoglobin 10.3 hematocrit 30.1 platelet count 115 Total bilirubin 21.1 AST 112 ALT 75 alk phos 152 08/02/2018, patient continues to have poor prognosis. Mild increased leukocytosis, ascites, percutaneous gastrostomy tube connected to low intermittent suction to maintain decompressed stomach, no obvious nausea or vomiting for now End-stage liver disease, patient being followed per palliative care, patient's no code DNR status. Currently shows no immediate improvement. Last KUB done on 122 showed mild improvement to gaseous distention of colon Plan N.p.o., Continue G-tube to low intermittent suction for now Spironolactone, Reglan, lactulose Flagyl, Protonix Supportive care Recheck KUB in the a.m. Monitor labs, mild increase in leukocytosis Patient was seen per myself and Dr. Sanchez, note was written on his behalf <No Charles - Last Filed: 08/02/18 12:07> (1) Liver failure Status: Acute Code(s): K72.90 - Hepatic failure, unspecified without coma (2) Hyperbilirubinemia Status: Acute Code(s): E80.6 - Other disorders of bilirubin metabolism - Attending Attestation Some improvement overall since yesterday, continue supportive care for now. Will follow up with you . <Donta Sanchez - Last Filed: 08/02/18 13:25>
--- NOTE | 2018-08-02 15:37 | P.PNIM ---
Subjective Interval history: Follow-up encephalopathy and hypotension. He is more awake today denies any complaints. He is also slightly improved hemodynamically since stopping Lasix. Gastric output of about 150 cc overnight. Physical Exam Vital signs: Last Vital Signs Temp 97.7 F 08/02/18 11:35 Pulse 93 H 08/02/18 11:35 Resp 18 08/02/18 11:35 BP 98/56 L 08/02/18 11:35 Pulse Ox 96 08/02/18 11:35 Intake & Output 07/31/18 08/01/18 08/02/18 08/03/18 06:59 06:59 06:59 06:59 Intake Total 1500 / 1500 1999 / 1999 3420 / 3420 1520 / 1520 Output Total 150 / 150 Balance 1500 / 1500 1999 / 1999 3270 / 3270 1520 / 1520 Weight 59.1 kg 56.3 kg 56.5 kg Narrative: GENERAL: 63 yo male appearing older, chronically ill, not in acute distress at this time. SKIN: Warm and dry. Jaundiced Respiratory: Upper airway congestion CARDIOVASCULAR: Regular rate and rhythm without murmurs, gallops, or rubs. RESPIRATORY: Breath sounds coarse sounding. GASTROINTESTINAL: Abdomen soft, Leakage at the PEG tube site. Abd slightly distended. MUSCULOSKELETAL: No cyanosis, no edema. Neuro: alert, confused Urinary Catheter Management Indwelling Urethral Catheter: Cath placed during this visit: yes, but has since been removed by the nurse Insertion date: 07/12/18 Insertion time: 07:45 Removal date: 07/19/18 Removal time: 10:45 Condom: Cath placed during this visit: yes Urethral indwelling: No Insertion date: 07/19/18 Insertion time: 10:50 Results Labs CBC & Chem 7: 08/02/18 08:24 08/02/18 08:24 Labs: Microbiology 08/01/18 09:40 Blood - Peripheral Aerobic Blood Culture - Preliminary No growth in 1 day 08/01/18 09:40 Blood - Peripheral Anaerobic Blood Culture - Preliminary No growth in 1 day 08/01/18 09:45 Blood - Peripheral Aerobic Blood Culture - Preliminary No growth in 1 day 08/01/18 09:45 Blood - Peripheral Anaerobic Blood Culture - Preliminary No growth in 1 day 07/28/18 13:52 Blood - Peripheral Aerobic Blood Culture - Final No growth in 5 days 07/28/18 13:52 Blood - Peripheral Anaerobic Blood Culture - Final No growth in 5 days 07/28/18 13:57 Blood - Peripheral Aerobic Blood Culture - Final No growth in 5 days 07/28/18 13:57 Blood - Peripheral Anaerobic Blood Culture - Final No growth in 5 days Procedures Procedures: PEG Assessment and Plan (1) Chest pain: Code(s): R07.9 - Chest pain, unspecified Status: Acute (2) Elevated troponin level: Code(s): R74.8 - Abnormal levels of other serum enzymes Status: Acute (3) Liver failure: Code(s): K72.90 - Hepatic failure, unspecified without coma Status: Acute (4) Hyperbilirubinemia: Code(s): E80.6 - Other disorders of bilirubin metabolism Status: Acute Plan Acute metabolic encephalopathy Anisocoria EtOH abuse Recent cocaine/opiate abuse -inhaled. Denies intravenous MVI/ folate. Patient states he inhaled cocaine 4-5 days prior to admission. Denies IV drug use. Discontinued acetaminophen and related products with elevated transaminases Stat CT of the head for unequal pupil, negative for acute findings Encephalopathy improved enough to allow extubation 07/18. Check ammonia level as needed due to encephalopathy. Resume lactulose following G-tube placement by IR CV: Severe sepsis Lactic acidosis Elevated troponin likely demand ischemia Right carotid artery stenosis Elevated CPK Hypotension. Improved since stopping Lasix. Also increased IV albumin Cardiology Dr. chaudhry. No intervention planned 2D echocardiogram revealed Normal left ventricular size. Wall thickness is normal. The left ventricular systolic function is normal with an estimated ejection fraction in the range of 55-60%. Not on aspirin or heparin at this time due to thrombocytopenia Followed by vascular surgery for right carotid artery stenosis 80%. Resp: Acute hypoxemic respiratory failure Hospital-acquired pneumonia Emphysematous type changes on CT neck Hyperammonemia Hypoalbuminemia Tobacco abuse Emergently intubated and placed on mechanical ventilation. PRVC/AC 07/13/2018 Incentive spirometry. Extubated 07/18 Chest tube removed 07/19, chest x-ray after with the right lung well expanded. Consulted pulmonology IS/ Acapella, continue duonebs pulmonary drainage Continue treatment for hospital-acquired pneumonia with Zosyn GI: Elevated transaminases. Worse Elevated total bilirubin. Worse Liver failure Hypoalbuminemia Cirrhosis suspect Ascites Ileus vs constipation. Patient having loose stools Noted CT abdomen/pelvis revealed possible early cholecystitis. Pericholecystic fluid. Ultrasound revealed negative Lundy sign. Nuclear medicine scan revealed no activity in the intrahepatic ductal compound bile duct or small bowel. Cannot rule out common bile duct obstruction CT angiogram of the abdomen/pelvis revealed 20-30% stenosis of the SMA. Patent MIC, celiac. Hepatitis panel negative. Negative w/u - ceruloplasmin, BOBBY, AMA, ASMA, SSA AMB, anti-Ronquillo, RP, scleroderma, double-stranded DNA, hemochromatosis Currently on lactulose 45 mg 3 times a day and rifaximin Resume tube feeds once G-tube placed by IR Reconsulted GI, ultrasound with gallbladder thickening, KUB with worsening colonic distention MRCP with no intraluminal defects in the gallbladder or common bile duct. Repeat ammonia level within normal limits Ct IV albumin Endo: Sliding scale insulin with Accu-Cheks to maintain euglycemia/every 6 hours low regimen TSH 1. Cortisol 25 Glucose control acceptable Renal: Acute kidney failure. Worse possible hepatorenal Hypernatremia. Hypokalemia Avoid nephrotoxic medication. Discontinued vancomycin Convert fluid to D5 water with KCl 40 mEq/L. Increase free water and IV albumin Monitor and replete electrolytes Heme: Macrocytic anemia Thrombocytopenia Coagulopathic state Follow-up on PT/INR Platelet transfusion ordered prior to G-tube placement by IR ID: MRSA bacteremia Septic shock Pneumonia Worsening leukocytosis. Negative C. difficile 2D transthoracic echocardiogram revealed no signs of endocarditis. Infectious disease following Switch Zosyn to aztreonam follow-up repeat blood and urine cultures MSK: Left posterior olecranon fracture Followed by Dr. Blanco, splint removed FEN: Replace electrolytes as clinically indicated. Potassium of 3.3 will replace with 20 medical events IV potassium Access -Utilize peripheral IV. Prophylaxis -GI -pantoprazole -DVT-SCD/hold off chemical DVT prophylaxis due to severe thrombocytopenia, prolonged INR DC plan: Pending improvement and clearance by consultants. Family declined hospice Code status: DNR status. Palliative care following. Poor prognosis Progress Note: Quality VTE Deep Vein Thrombosis/Pulmonary Embolism Present on Admission: No _ (1) Liver failure Qualifiers: Hepatic coma status: Liver failure chronicity: (2) Chest pain Qualifiers: Chest pain type: Ischemic chest pain type:
[2018-08-02] MEDS ORDERED: Potassium Chlor 20 mEq Premix 20 MEQ/100 ML PIGGYBACK IV.SIG ONE (15:42)
--- NOTE | 2018-08-02 16:12 | P.PNPL ---
Subjective Interval history: 63 YOWM with RF, increased liver enzymes has pulm congestion no hemoptysis PEG tube to intermittent suction. no fever Physical Exam Vital signs: Vital Signs 08/01/18 20:00 08/01/18 20:52 08/02/18 00:00 Temperature 97.6 F 97.6 F Pulse Rate 88 89 90 Respiratory Rate 18 18 18 Blood Pressure 78/49 L 80/55 L Pulse Oximetry 89 L 94 L 96 08/02/18 03:11 08/02/18 04:00 08/02/18 08:14 Temperature 97.8 F 97.5 F L Pulse Rate 85 100 H 92 H Respiratory Rate 18 18 16 Blood Pressure 95/55 L 92/60 L Pulse Oximetry 96 98 08/02/18 09:00 08/02/18 11:35 08/02/18 15:00 Temperature 97.7 F Pulse Rate 93 H 93 H 87 Respiratory Rate 14 18 16 Blood Pressure 98/56 L Pulse Oximetry 96 Intake & Output 08/01/18 08/02/18 08/02/18 18:59 06:59 18:59 Intake Total 2200 / 2200 1220 / 1220 1620 / 1620 Output Total 150 / 150 Balance 2049 / 0 1220 / 1220 1620 / 1620 Weight 56.5 kg Intake: IV 2200 / 2200 1220 / 1220 1620 / 1620 D5W/1/2 NS Inj 1,000 ML @ 50 325 / 325 mls/hr IV.CONT .Q20H [facility] Rx#: [id number] D5W/1/2NS + KCL 20 mEq Inj 1, 325 / 325 000 ML @ 50 mls/hr IV.CONT . Q20H [facility] Rx#:[id number] KCl Inj 40 MEQ In D5W/1/3 NS 1020 / 1020 1020 / 1020 Inj 1,000 ML @ 84 mls/hr IV. CONT .Q12H9M [facility] Rx#:[id number] Flexbumin 25% Inj 50 ML @ 60 50 / 50 100 / 100 mls/hr IV.SIG Q12H [facility] Rx#: [id number] Azactam Inj 2 GM In NS Inj 100 100 / 100 100 / 100 200 / 200 ML @ 200 mls/hr IV.SIG Q8H [facility] Rx#:[id number] KCl 20 mEq Premix Inj 20 meq In 200 / 200 100 ml @ 50 mls/hr IV.SIG Q2H [facility] Rx#:[id number] NS Inj 500 ML @ Wide Open IV. 1000 / 1000 SIG BOLUS ONE Rx#:[id number] Flagyl 500 MG Inj 100 ML @ 100 200 / 200 100 / 100 300 / 300 mls/hr IV.SIG Q6H [facility] Rx#: [id number] Output: Gastric Drainage 150 / 150 Left Upper Quadrant Gastrostomy 150 / 150 Tube (PEG) Other: # Incontinent Voids 3 # Urine Diapers 5 Date of Last Bowel Movement 08/01/18 08/01/18 08/02/18 # Bowel Movements 1 # Incontinent Bowel Movements 1 GENERAL: Elderly WM, NAD SKIN: Warm and dry. HEAD: Normocephalic. EYES: No scleral icterus. No injection or drainage. NECK: Supple, trachea midline. No JVD or lymphadenopathy. CARDIOVASCULAR: Regular rate and rhythm without murmurs, gallops, or rubs. RESPIRATORY: Breath sounds equal bilaterally. No accessory muscle use. GASTROINTESTINAL: Abdomen soft, non-tender, nondistended. PEG tube to suction MUSCULOSKELETAL: No cyanosis, or edema. BACK: Nontender without obvious deformity. No CVA tenderness. - Urinary Catheter Management Indwelling Urethral Catheter Cath placed during this visit: yes, but has since been removed by the nurse Reason for continuing: Decision to DC catheter Insertion date: 07/12/18 Insertion time: 07:45 Removal date: 07/19/18 Removal time: 10:45 Condom Cath placed during this visit: yes Urethral indwelling: No Reason for continuing: Not indwelling catheter Insertion date: 07/19/18 Insertion time: 10:50 Assessment and Plan - Plan IMPRESSION: 1. Methicillin-resistant Staphylococcus aureus. 2. Urinary tract infection. 3. Sepsis. 4. Hemoptysis. 5. Respiratory distress status post extubation. 6. Increased liver enzymes. 7. Thrombocytopenia. 8. The patient is homeless. 9. Nicotine use. 10. Alcohol use. PLAN: monitor Lytes monitor Plt count Protonix 40 mg IV daily Supplement 02 to keep sat >90% LasixIV Cont Abx
[2018-08-03] MEDS: Metoclopramide 10 MG Tablet G-TUBE SCH ×5 (00:18→21:16)
[2018-08-03] MEDS: Insulin NovoLOG Aspart Correctional Sugar Inj SQ SCH ×5 (00:20→21:15)
[2018-08-03] MEDS: Oral Hygiene Kit OROPHARYNG SCH ×4 (00:21→17:14)
[2018-08-03] MEDS: NACL 0.3% IV.CONT SCH (04:29)
[2018-08-03] MEDS: POTASSIUM CHLORIDE IV.CONT SCH (04:29)
[2018-08-03] MEDS: DEXTROSE IV.CONT SCH (04:29)
[2018-08-03] MEDS: Aztreonam Inj 2 GM in Sodium Chloride 0.9% Inj 100 ML IV.SIG SCH ×3 (06:38→21:16)
[2018-08-03] MEDS: Albumin Human 25% Inj 50 ML IV.SIG SCH ×3 (06:38→17:19)
--- NOTE | 2018-08-03 06:50 | XR ---
EXAM DATE: 08/03/2018 6:38 AM EST AGE/SEX: 63 years / Male INDICATIONS: Follow up ileus. CLINICAL DATA: This is the patient's subsequent encounter. Patient reports that signs and symptoms h ave been present for 3 days and indicates a pain score of 6/10. MEDICAL/SURGICAL HISTORY: None. None. [place] [facility] [place]. [facility] [place]. . FINDINGS: No perceptible distention. However, there is suspected wall thickening in the region of the splenic flexure of colon. No free air demonstrated. CONCLUSION: Decreased distention. Nonobstructive pattern. Suspected left side colitis, nonspecific. Electronically signed by: Calvin Francisco MD Board Certified Radiologist 08/03/2018 6:49 AM EST
[2018-08-03 07:10] LABS: Baso # (Auto) 0.1 th/mm3 (0.0-0.2); Baso % (Auto) 0.3 % (0.0-2.0); Eos # (Auto) 0.2 th/mm3 (0.0-0.4); Eos % (Auto) 0.6 % (0.0-4.0); Hematocrit 28.5 % (39.0-51.0); Hemoglobin 9.4 gm/dL (13.0-17.0); Lymph # (Auto) 1.9 th/mm3 (1.0-4.8); Lymph % (Auto) 7.4 % (9.0-44.0); Mean Corpuscular HGB Conc 33.1 % (32.0-36.0); Mean Corpuscular Hemoglobin 34.3 pg (27.0-34.0); Mean Corpuscular Volume 103.7 fL (80.0-100.0); Mean Platelet Volume 11.6 fL (7.0-11.0); Mono # (Auto) 1.3 th/mm3 (0.0-0.9); Mono % (Auto) 5.1 % (0.0-8.0); Neut # (Auto) 22.7 th/mm3 (1.8-7.7); Neut % (Auto) 86.6 % (16.0-70.0); Platelet Count 109 th/mm3 (150-450); Red Blood Count 2.75 mil/mm3 (4.50-5.90); Red Cell Distribution Width 20.5 % (11.6-17.2); White Blood Count 26.2 th/mm3 (4.0-11.0)
[2018-08-03 07:54] LABS: Alanine Aminotransferase 64 U/L (12-78); Albumin 1.9 g/dL (3.4-5.0); Alkaline Phosphatase 135 U/L (45-117); Anion Gap 12 meq/L (5-15); Aspartate Aminotransferase 111 U/L (15-37); Blood Urea Nitrogen 66 mg/dL (7-18); Calcium 7.9 mg/dL (8.5-10.1); Carbon Dioxide 23.5 meq/L (21.0-32.0); Chloride 121 meq/L (98-107); Glomerular Filtration Rate 21 mL/min (>89); Glucose,Random 133 mg/dL (74-106); Potassium 3.5 meq/L (3.5-5.1); Total Protein 5.2 g/dL (6.4-8.2)
[2018-08-03 07:58] LABS: Sodium 156 meq/L (136-145)
--- NOTE | 2018-08-03 09:14 | P.PNIM ---
Subjective Interval history: Follow-up liver failure and ileus. Patient states he is all right denies abdominal pain. Gastric output of 300 cc. Urine output thousand cc. Discussed with nursing to restart free water Physical Exam Vital signs: Last Vital Signs Temp 98.2 F 08/03/18 07:14 Pulse 91 H 08/03/18 07:14 Resp 16 08/03/18 07:14 BP 110/62 08/03/18 07:14 Pulse Ox 96 08/03/18 07:14 Intake & Output 08/01/18 08/02/18 08/03/18 08/04/18 06:59 06:59 06:59 06:59 Intake Total 1999 3420 / 3420 3420 / 3420 150 / 150 Output Total 150 / 150 1300 / 1300 Balance 1999 3270 / 3270 2120 / 2120 150 / 150 Weight 56.3 kg 56.5 kg 56.5 kg Narrative: GENERAL: 63 yo male appearing older, chronically ill, not in acute distress at this time. SKIN: Warm and dry. Jaundiced Respiratory: Upper airway congestion CARDIOVASCULAR: Regular rate and rhythm without murmurs, gallops, or rubs. RESPIRATORY: Breath sounds coarse sounding. GASTROINTESTINAL: Abdomen soft, Leakage at the PEG tube site. Abd with improving distention MUSCULOSKELETAL: No cyanosis, no edema. Neuro: alert, confused Urinary Catheter Management Indwelling Urethral Catheter: Cath placed during this visit: yes, but has since been removed by the nurse Insertion date: 07/12/18 Insertion time: 07:45 Removal date: 07/19/18 Removal time: 10:45 Condom: Cath placed during this visit: yes Urethral indwelling: No Insertion date: 07/19/18 Insertion time: 10:50 Results Labs CBC & Chem 7: 08/03/18 06:36 08/03/18 06:36 Labs: Microbiology 08/01/18 09:40 Blood - Peripheral Aerobic Blood Culture - Preliminary No growth in 1 day 08/01/18 09:40 Blood - Peripheral Anaerobic Blood Culture - Preliminary No growth in 1 day 08/01/18 09:45 Blood - Peripheral Aerobic Blood Culture - Preliminary No growth in 1 day 08/01/18 09:45 Blood - Peripheral Anaerobic Blood Culture - Preliminary No growth in 1 day 07/28/18 13:52 Blood - Peripheral Aerobic Blood Culture - Final No growth in 5 days 07/28/18 13:52 Blood - Peripheral Anaerobic Blood Culture - Final No growth in 5 days 07/28/18 13:57 Blood - Peripheral Aerobic Blood Culture - Final No growth in 5 days 07/28/18 13:57 Blood - Peripheral Anaerobic Blood Culture - Final No growth in 5 days Imaging Imaging: ITS Impressions Abdomen/Pelvis CT 07/08/18 18:02 CONCLUSION: 1. Severe fatty infiltration of the liver. 2. Apparent pericholecystic fluid. Also fairly robust enhancement of the gallbladder mucosa. Please correlate clinically for any evidence of cholecystitis. No stones or ductal dilatation demonstrated. Gallbladder Ultrasound 07/08/18 18:53 CONCLUSION: 1. Small, nonspecific pericholecystic fluid without stones, wall thickening or sonographic Lundy's sign. The fluid may be on the basis of hepatocellular disease. The ultrasound does not support acute cholecystitis. 2. Fatty infiltrated and mildly enlarged liver. Carotid Doppler Study 07/09/18 00:00 CONCLUSION: 1. Right Internal Carotid Artery: Findings indicate >70% stenosis, but less than near occlusion. 2. Left Internal Carotid Artery: Findings indicate <50% stenosis. Hepatobiliary Scan Nuclear Medicine 07/09/18 14:22 CONCLUSION: 1. No activity in intrahepatic ducts, common duct or small bowel. Considerations include include acute obstruction of the common duct and diffuse hepatocellular disease. 2. CT scan shows no dilatation of the common duct or intrahepatic ducts. Diffuse hepatocellular disease is suspected. Neck CTA 07/10/18 00:00 CONCLUSION: 1. 80% stenosis of the proximal right ICA. Left carotid and bilateral vertebral arteries are patent. 2. Emphysematous changes. Abdomen/Pelvis CTA 07/10/18 00:08 CONCLUSION: 1. 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 The SMA and MIC are patent. 2. Hepatic steatosis. 3. Emphysematous changes. Abdomen/Bladder Ultrasound 07/11/18 00:00 CONCLUSION: 1. Normal ultrasound appearance of the kidneys. 2. Other findings include hepatic steatosis and left pleural effusion. Elbow CT 07/11/18 00:00 CONCLUSION: 1. Small fracture fragment off the olecranon. 2. There is subcutaneous edema identified posterior to the elbow with soft tissue swelling. Head CT 07/13/18 00:00 CONCLUSION: 1. No acute intracranial abnormality. 2. Atrophy. . Gastrostomy Tube Placement 07/22/18 00:00 CONCLUSION: 1. Uncomplicated gastrostomy tube placement as above. Liver Ultrasound 07/29/18 00:00 CONCLUSION: 1. Mild gallbladder wall thickening. If there is clinical concern for cholecystitis, a hepatobiliary scan may be helpful to confirm cystic duct obstruction. 2. Enlarged fatty liver. 3. Some ascites along the edge of the liver and spleen. 4. Echogenic right kidney suggesting possible medical renal disease. 5. Poor visualization of the pancreas due to shadowing bowel gas. Cholangiopancreatography MRI 07/30/18 00:00 CONCLUSION: 1. No intraluminal defects in the gallbladder or common bile duct. 2. Prominent amount of ascites and large bilateral pleural effusions. Percutaneous gastrostomy in place. Elbow X-Ray 07/30/18 00:00 CONCLUSION: Good alignment and position of the bony structures. Chest X-Ray 08/01/18 00:00 CONCLUSION: 1. Persistent diffuse infiltrate of the right lung and much less severe patchiness in the left lung base. 2. Stable cardiomegaly. Abdomen X-Ray 08/03/18 06:00 CONCLUSION: Decreased distention. Nonobstructive pattern. Suspected left side colitis, nonspecific. Procedures Procedures: PEG Assessment and Plan (1) Chest pain: Code(s): R07.9 - Chest pain, unspecified Status: Acute (2) Elevated troponin level: Code(s): R74.8 - Abnormal levels of other serum enzymes Status: Acute (3) Liver failure: Code(s): K72.90 - Hepatic failure, unspecified without coma Status: Acute (4) Hyperbilirubinemia: Code(s): E80.6 - Other disorders of bilirubin metabolism Status: Acute Plan Acute metabolic encephalopathy Anisocoria EtOH abuse Recent cocaine/opiate abuse -inhaled. Denies intravenous MVI/ folate. Patient states he inhaled cocaine 4-5 days prior to admission. Denies IV drug use. Discontinued acetaminophen and related products with elevated transaminases Stat CT of the head for unequal pupil, negative for acute findings Encephalopathy improved enough to allow extubation 07/18. Check ammonia level as needed due to encephalopathy. Resume lactulose following G-tube placement by IR CV: Lactic acidosis Elevated troponin likely demand ischemia Right carotid artery stenosis Elevated CPK Hypotension. Improved since stopping Lasix. Also increased IV albumin Cardiology Dr. chaudhry. No intervention planned 2D echocardiogram revealed Normal left ventricular size. Wall thickness is normal. The left ventricular systolic function is normal with an estimated ejection fraction in the range of 55-60%. Not on aspirin or heparin at this time due to thrombocytopenia Followed by vascular surgery for right carotid artery stenosis 80%. Resp: Acute hypoxemic respiratory failure Hospital-acquired pneumonia Emphysematous type changes on CT neck Hyperammonemia Hypoalbuminemia Tobacco abuse Emergently intubated and placed on mechanical ventilation. PRVC/AC 07/13/2018 Incentive spirometry. Extubated 07/18 Chest tube removed 07/19, chest x-ray after with the right lung well expanded. Consulted pulmonology IS/ Acapella, continue duonebs pulmonary drainage GI: Elevated transaminases. Worse Elevated total bilirubin. Worse Liver failure Hypoalbuminemia Cirrhosis suspect Ascites Ileus Noted CT abdomen/pelvis revealed possible early cholecystitis. Pericholecystic fluid. Ultrasound revealed negative Lundy sign. Nuclear medicine scan revealed no activity in the intrahepatic ductal compound bile duct or small bowel. Cannot rule out common bile duct obstruction CT angiogram of the abdomen/pelvis revealed 20-30% stenosis of the SMA. Patent MIC, celiac. Hepatitis panel negative. Negative w/u - ceruloplasmin, BOBBY, AMA, ASMA, SSA AMB, anti-Ronquillo, RP, scleroderma, double-stranded DNA, hemochromatosis Currently on lactulose 45 mg 3 times a day and rifaximin Resume tube feeds once G-tube placed by IR Reconsulted GI, ultrasound with gallbladder thickening, KUB with worsening colonic distention MRCP with no intraluminal defects in the gallbladder or common bile duct. Repeat ammonia level within normal limits Ct IV albumin and Reglan. Increase activity as tolerated discussed with nursing and PT Endo: Sliding scale insulin with Accu-Cheks to maintain euglycemia/every 6 hours low regimen TSH 1. Cortisol 25 Glucose control acceptable Renal: Acute kidney failure. Worse likely hepatorenal Hypernatremia. Hypokalemia Avoid nephrotoxic medication. Discontinued vancomycin Convert fluid to D5 1/2 NS with KCl 40 mEq/L. Restart free water and ct IV albumin Monitor and replete electrolytes Heme: Macrocytic anemia Thrombocytopenia Coagulopathic state Follow-up on PT/INR Platelet transfusion ordered prior to G-tube placement by IR ID: MRSA bacteremia Septic shock Pneumonia Worsening leukocytosis. Negative C. difficile 2D transthoracic echocardiogram revealed no signs of endocarditis. Infectious disease switched Zosyn to aztreonam follow-up repeat blood and urine cultures MSK: Left posterior olecranon fracture Followed by Dr. Blanco, splint removed FEN: Replace electrolytes as clinically indicated. Access -Utilize peripheral IV. Prophylaxis -GI -pantoprazole -DVT-SCD/hold off chemical DVT prophylaxis due to severe thrombocytopenia, prolonged INR DC plan: Pending improvement and clearance by consultants. Family declined hospice Code status: DNR status. Palliative care following. Poor prognosis Progress Note: Quality VTE Deep Vein Thrombosis/Pulmonary Embolism Present on Admission: No _ (1) Liver failure Qualifiers: Hepatic coma status: Liver failure chronicity: (2) Chest pain Qualifiers: Chest pain type: Ischemic chest pain type:
[2018-08-03] MEDS: Chlorhexidine 0.12% Oral Kit 15 ML UDC OROPHARYNG SCH ×2 (09:23→21:11)
[2018-08-03] MEDS: rifAXIMin 550 MG Tablet PO SCH ×2 (10:10→21:16)
[2018-08-03] MEDS: KCL 40 mEq/D5W/NaCl 0.45% Inj 1,000 ML IV.CONT SCH ×2 (10:11→21:06)
[2018-08-03] MEDS: Pantoprazole Inj 40 MG Vial IV.PUSH SCH (10:11)
[2018-08-03] MEDS: Mupirocin 2% Nasal Oint Topical Syringe EACH NARE SCH ×2 (10:11→21:11)
--- NOTE | 2018-08-03 14:39 | P.PNPL ---
Subjective Interval history: 63 YOWM with RF, increased liver enzymes has pulm congestion no hemoptysis No abd pain no fever Physical Exam Vital signs: Vital Signs 08/02/18 15:00 08/02/18 16:00 08/02/18 20:00 Temperature 97.5 F L 97.6 F Pulse Rate 87 92 H 91 H Respiratory Rate 16 16 18 Blood Pressure 98/60 L 90/60 L Pulse Oximetry 96 98 08/02/18 20:40 08/03/18 00:00 08/03/18 04:00 Temperature 98.1 F 98 F Pulse Rate 93 H 92 H 93 H Respiratory Rate 16 18 18 Blood Pressure 100/54 L 90/60 L Pulse Oximetry 95 96 95 08/03/18 07:14 08/03/18 11:05 Temperature 98.2 F 98.6 F Pulse Rate 91 H 87 Respiratory Rate 16 16 Blood Pressure 110/62 114/68 Pulse Oximetry 96 95 Intake & Output 08/02/18 08/03/18 08/03/18 18:59 06:59 18:59 Intake Total 1670 / 1670 1750 / 1750 400 / 400 Output Total 700 / 700 600 / 600 450 / 450 Balance 970 / 970 1150 / 1150 -50 / -50 Weight 56.5 kg Intake: IV 1670 / 1670 1270 / 1270 400 / 400 KCl Inj 40 MEQ In D5W/1/3 NS 1020 / 1020 1020 / 1020 200 / 200 Inj 1,000 ML @ 84 mls/hr IV. CONT .Q12H9M [facility] Rx#:[id number] Flexbumin 25% Inj 50 ML @ 60 150 / 150 50 / 50 100 / 100 mls/hr IV.SIG Q6HR [facility] Rx#: [id number] Azactam Inj 2 GM In NS Inj 100 200 / 200 100 / 100 100 / 100 ML @ 200 mls/hr IV.SIG Q8H [facility] Rx#:[id number] KCl 20 mEq Premix Inj 20 meq In 100 / 100 100 ml @ 50 mls/hr IV.SIG ONCE ONE Rx#:[id number] Flagyl 500 MG Inj 100 ML @ 100 300 / 300 mls/hr IV.SIG Q6H [facility] Rx#: [id number] Oral 480 / 480 Output: Urine 400 / 400 600 / 600 Gastric Drainage 300 / 300 450 / 450 Left Upper Quadrant Gastrostomy 300 / 300 450 / 450 Tube (PEG) Other: Date of Last Bowel Movement 08/02/18 08/03/18 08/02/18 # Bowel Movements 1 GENERAL: Elderly WM, NAD SKIN: Warm and dry. HEAD: Normocephalic. EYES: No scleral icterus. No injection or drainage. NECK: Supple, trachea midline. No JVD or lymphadenopathy. CARDIOVASCULAR: Regular rate and rhythm without murmurs, gallops, or rubs. RESPIRATORY: Breath sounds equal bilaterally. No accessory muscle use. GASTROINTESTINAL: Abdomen soft, non-tender, nondistended. MUSCULOSKELETAL: No cyanosis, or edema. BACK: Nontender without obvious deformity. No CVA tenderness. - Urinary Catheter Management Indwelling Urethral Catheter Cath placed during this visit: yes, but has since been removed by the nurse Reason for continuing: Decision to DC catheter Insertion date: 07/12/18 Insertion time: 07:45 Removal date: 07/19/18 Removal time: 10:45 Condom Cath placed during this visit: yes Urethral indwelling: No Reason for continuing: Not indwelling catheter Insertion date: 07/19/18 Insertion time: 10:50 Assessment and Plan - Plan IMPRESSION: 1. Methicillin-resistant Staphylococcus aureus. 2. Urinary tract infection. 3. Sepsis. 4. Hemoptysis. 5. Respiratory distress status post extubation. 6. Increased liver enzymes. 7. Thrombocytopenia. 8. The patient is homeless. 9. Nicotine use. 10. Alcohol use. PLAN: monitor Lytes monitor Plt count Protonix 40 mg IV daily Supplement 02 to keep sat >90% Cont Abx
[2018-08-04] MEDS: Albumin Human 25% Inj 50 ML IV.SIG SCH ×5 (00:14→22:00)
[2018-08-04] MEDS: Oral Hygiene Kit OROPHARYNG SCH ×5 (00:26→23:44)
[2018-08-04] MEDS: KCL 40 mEq/D5W/NaCl 0.45% Inj 1,000 ML IV.CONT SCH ×2 (00:49→06:54)
[2018-08-04 06:23] LABS: Baso # (Auto) 0.3 th/mm3 (0.0-0.2); Baso % (Auto) 1.1 % (0.0-2.0); Eos # (Auto) 0.3 th/mm3 (0.0-0.4); Hematocrit 28.2 % (39.0-51.0); Hemoglobin 9.4 gm/dL (13.0-17.0); Lymph # (Auto) 2.3 th/mm3 (1.0-4.8); Mean Corpuscular HGB Conc 33.2 % (32.0-36.0); Mean Corpuscular Hemoglobin 34.9 pg (27.0-34.0); Mean Corpuscular Volume 105.2 fL (80.0-100.0); Mean Platelet Volume 11.5 fL (7.0-11.0); Mono # (Auto) 1.4 th/mm3 (0.0-0.9); Mono % (Auto) 5.4 % (0.0-8.0); Neut # (Auto) 21.2 th/mm3 (1.8-7.7); Neut % (Auto) 83.5 % (16.0-70.0); Platelet Count 96 th/mm3 (150-450); Red Blood Count 2.68 mil/mm3 (4.50-5.90); Red Cell Distribution Width 21.1 % (11.6-17.2); White Blood Count 25.3 th/mm3 (4.0-11.0)
[2018-08-04] MEDS: Aztreonam Inj 2 GM in Sodium Chloride 0.9% Inj 100 ML IV.SIG SCH ×3 (06:53→23:00)
[2018-08-04 06:54] LABS: Alanine Aminotransferase 61 U/L (12-78); Albumin 2.3 g/dL (3.4-5.0); Anion Gap 11 meq/L (5-15); Aspartate Aminotransferase 91 U/L (15-37); Blood Urea Nitrogen 75 mg/dL (7-18); Calcium 8.1 mg/dL (8.5-10.1); Chloride 123 meq/L (98-107); Glomerular Filtration Rate 19 mL/min (>89); Glucose,Random 137 mg/dL (74-106); Potassium 3.5 meq/L (3.5-5.1)
[2018-08-04 06:58] LABS: Alkaline Phosphatase 127 U/L (45-117); Total Protein 5.5 g/dL (6.4-8.2)
[2018-08-04 07:02] LABS: Sodium 157 meq/L (136-145)
[2018-08-04 08:54] LABS: Lymphocytes 4 % (9-44); Monocytes 4 % (0-8); Tallied Nucleated RBC 1 (0-0)
[2018-08-04 08:55] LABS: Target Cells 1+; Toxic Granulation 2+
[2018-08-04] MEDS: Chlorhexidine 0.12% Oral Kit 15 ML UDC OROPHARYNG SCH ×2 (09:03→23:40)
[2018-08-04] MEDS: Insulin NovoLOG Aspart Correctional Sugar Inj SQ SCH ×4 (09:03→23:57)
[2018-08-04] MEDS: Pantoprazole Inj 40 MG Vial IV.PUSH SCH (09:04)
[2018-08-04] MEDS: rifAXIMin 550 MG Tablet PO SCH ×2 (09:04→23:41)
[2018-08-04] MEDS: Metoclopramide 10 MG Tablet G-TUBE SCH ×4 (09:04→23:58)
[2018-08-04] MEDS: Mupirocin 2% Nasal Oint Topical Syringe EACH NARE SCH ×2 (09:04→23:40)
--- NOTE | 2018-08-04 13:34 | P.PNGI ---
Subjective Interval history: Patient awake and alert Altered mental status Persistent jaundice PEG tube to low intermittent wall suction with copious amounts of bilious drainage Abdomen less distended <Diamond Beach - Last Filed: 08/04/18 13:25> Physical Exam Vital signs: Vital Signs 08/03/18 16:36 08/03/18 20:52 08/04/18 00:00 Temperature 97.9 F 98.5 F Pulse Rate 88 86 Respiratory Rate 18 18 18 Blood Pressure 92/46 L 110/62 Pulse Oximetry 93 L 96 08/04/18 01:32 08/04/18 02:28 08/04/18 05:27 Temperature 97.7 F 97.6 F Pulse Rate 86 88 Respiratory Rate 18 18 18 Blood Pressure 108/58 L 114/62 Pulse Oximetry 100 95 08/04/18 08:00 08/04/18 12:00 Temperature 97.4 F L 98.4 F Pulse Rate 88 87 Respiratory Rate 18 18 Blood Pressure 109/56 L 116/64 Pulse Oximetry 97 96 Intake & Output 08/03/18 08/04/18 08/04/18 18:59 06:59 18:59 Intake Total 550 / 550 1660 / 1660 1100 / 1100 Output Total 1050 / 1050 500 / 500 Balance -500 / -500 1660 / 1660 600 / 600 Weight 56.5 kg Intake: IV 550 / 550 1200 / 1200 1100 / 1100 D5W/1/2NS + KCL 40 mEq Inj 1, 1000 / 1000 1000 / 1000 000 ML @ 100 mls/hr IV.CONT . Q10H [facility] Rx#:[id number] KCl Inj 40 MEQ In D5W/1/3 NS 200 / 200 Inj 1,000 ML @ 84 mls/hr IV. CONT .Q12H9M [facility] Rx#:[id number] Flexbumin 25% Inj 50 ML @ 60 150 / 150 100 / 100 mls/hr IV.SIG Q6HR [facility] Rx#: [id number] Azactam Inj 2 GM In NS Inj 100 200 / 200 100 / 100 100 / 100 ML @ 200 mls/hr IV.SIG Q8H [facility] Rx#:[id number] Water Bolus Amount 460 / 460 Output: Urine 100 / 100 Urine Amount (Catheter) 250 / 250 Condom 250 / 250 Gastric Drainage 700 / 700 500 / 500 Left Upper Quadrant Gastrostomy 700 / 700 500 / 500 Tube (PEG) Other: # Incontinent Voids 3 # Urine Diapers 1 Date of Last Bowel Movement 08/02/18 08/04/18 08/04/18 # Bowel Movements 3 # Incontinent Bowel Movements 2 1 - Constitutional thin, chronically ill appearing - Routine HEENT Exam Eye: Present: conjunctival icterus - Routine Respiratory Exam Present: CTA bilaterally. Absent: accessory muscle use, rales - Routine Cardiovascular Exam Present: RRR, S1, S2 - Routine Abdominal Exam Present: soft, normoactive bowel sounds, distended, ostomy. Absent: tenderness , guarding, firm Comments: Gastrostomy tube to low intermittent wall suction Copious amounts of bilious drainage noted in collection container - Routine Extremities Exam Present: pulses intact. Absent: edema - Routine Skin Exam Present: dry, warm, jaundice - Routine Neurological Exam Present: alert, altered mental status - Detailed Neurological Exam: Coma Scale Eye Opening: Spontaneous - Urinary Catheter Management Indwelling Urethral Catheter Cath placed during this visit: yes, but has since been removed by the nurse Reason for continuing: Decision to DC catheter Insertion date: 07/12/18 Insertion time: 07:45 Removal date: 07/19/18 Removal time: 10:45 Condom Cath placed during this visit: yes Urethral indwelling: No Reason for continuing: Not indwelling catheter Insertion date: 07/19/18 Insertion time: 10:50 <Diamond Beach - Last Filed: 08/04/18 13:25> Vital signs: Vital Signs 08/04/18 12:00 08/04/18 16:00 08/04/18 20:00 Temperature 98.4 F 97.5 F L 97.2 F L Pulse Rate 87 87 90 Respiratory Rate 18 18 19 Blood Pressure 116/64 109/65 98/55 L Pulse Oximetry 96 98 98 08/05/18 00:00 08/05/18 03:45 08/05/18 04:00 Temperature 97.2 F L 97.9 F Pulse Rate 92 H 88 Respiratory Rate 18 20 17 Blood Pressure 111/55 L 106/51 L Pulse Oximetry 98 97 08/05/18 08:10 Temperature 98.3 F Pulse Rate 88 Respiratory Rate 20 Blood Pressure 97/61 L Pulse Oximetry 98 Intake & Output 08/04/18 08/05/18 08/05/18 18:59 06:59 18:59 Intake Total 1250 / 1250 1000 / 1000 Output Total 850 / 850 750 / 750 Balance 400 / 400 250 / 250 Weight 56.5 kg Intake: IV 1250 / 1250 200 / 200 D5W/1/2NS + KCL 40 mEq Inj 1, 1000 / 1000 000 ML @ 100 mls/hr IV.CONT . Q10H [facility] Rx#:[id number] Flexbumin 25% Inj 50 ML @ 60 50 / 50 100 / 100 mls/hr IV.SIG Q6HR [facility] Rx#: [id number] Azactam Inj 2 GM In NS Inj 100 200 / 200 100 / 100 ML @ 200 mls/hr IV.SIG Q8H [facility] Rx#:[id number] Water Bolus Amount 800 / 800 Output: Gastric Drainage 850 / 850 750 / 750 Left Upper Quadrant Gastrostomy 850 / 850 750 / 750 Tube (PEG) Other: Date of Last Bowel Movement 08/04/18 08/04/18 - Urinary Catheter Management Indwelling Urethral Catheter Cath placed during this visit: no Condom Cath placed during this visit: no <Donta Sanchez - Last Filed: 08/05/18 10:45> Results - Labs CBC & Chem 7: 08/04/18 05:17 08/04/18 05:17 Laboratory Results - last 24 hr 08/03/18 08/03/18 08/04/18 16:55 21:15 05:17 WBC 25.3 H RBC 2.68 L Hgb 9.4 L Hct 28.2 L MCV 105.2 H MCH 34.9 H MCHC 33.2 RDW 21.1 H Plt Count 96 L MPV 11.5 H Prelim Diff (Auto) Slide review pending Neut % (Auto) 83.5 H Lymph % (Auto) 9.0 [place] % (Auto) 5.4 Eos % (Auto) 1.0 Baso % (Auto) 1.1 Neut # (Auto) 21.2 H Lymph # (Auto) 2.3 [place] # (Auto) 1.4 H Eos # (Auto) 0.3 Baso # (Auto) 0.3 H WBC Differential Manual diff final Seg Neuts % (Manual) 83 H Band Neuts % (Manual) 9 H Lymphocytes % (Manual) 4 L Monocytes % (Manual) 4 Abs Neuts (Manual) 23.3 H Nucleated RBCs/100 WBC 1 H Differential Comment . Toxic Granulation 2+ H Platelet Estimate Low L Platelet Morphology Enlarged H Target Cells 1+ H Sodium Potassium Chloride Carbon Dioxide Anion Gap BUN Creatinine Estimated GFR POC Glucose 154 H 141 H Random Glucose Calcium Total Bilirubin AST ALT Alkaline Phosphatase Total Protein Albumin 08/04/18 08/04/18 08/04/18 05:17 07:47 11:31 WBC RBC Hgb Hct MCV MCH MCHC RDW Plt Count MPV Prelim Diff (Auto) Neut % (Auto) Lymph % (Auto) [place] % (Auto) Eos % (Auto) Baso % (Auto) Neut # (Auto) Lymph # (Auto) [place] # (Auto) Eos # (Auto) Baso # (Auto) WBC Differential Seg Neuts % (Manual) Band Neuts % (Manual) Lymphocytes % (Manual) Monocytes % (Manual) Abs Neuts (Manual) Nucleated RBCs/100 WBC Differential Comment Toxic Granulation Platelet Estimate Platelet Morphology Target Cells Sodium 157 H* Potassium 3.5 Chloride 123 H Carbon Dioxide 23.0 Anion Gap 11 BUN 75 H Creatinine 3.27 H Estimated GFR 19 L POC Glucose 118 H 116 H Random Glucose 137 H Calcium 8.1 L Total Bilirubin 21.2 H AST 91 H ALT 61 Alkaline Phosphatase 127 H Total Protein 5.5 L Albumin 2.3 L Microbiology 08/01/18 09:40 Blood - Peripheral Aerobic Blood Culture - Preliminary No growth in 3 days 08/01/18 09:40 Blood - Peripheral Anaerobic Blood Culture - Preliminary No growth in 3 days 08/01/18 09:45 Blood - Peripheral Aerobic Blood Culture - Preliminary No growth in 3 days 08/01/18 09:45 Blood - Peripheral Anaerobic Blood Culture - Preliminary No growth in 3 days 08/02/18 05:15 Catheterized Urine Urine Culture - Final Patricia albicans 07/13/18 08:55 Fluid - Pleural fluid Fungal Smear - Final No fungal elements seen 07/13/18 08:55 Fluid - Pleural fluid Fungal Culture - Preliminary No growth in 3 weeks 07/13/18 08:55 Fluid - Pleural fluid Acid Fast Bacilli Smear - Final No acid fast bacilli seen 07/13/18 08:55 Fluid - Pleural fluid Mycobacterial Culture - Preliminary No growth in 3 weeks - Procedures PEG <Beach,Diamond - Last Filed: 08/04/18 13:25> - Labs CBC & Chem 7: 08/04/18 05:17 08/04/18 05:17 Laboratory Results - last 24 hr 08/04/18 08/04/18 08/04/18 11:31 17:42 23:48 POC Glucose 116 H 97 96 08/05/18 08:36 POC Glucose 148 H Microbiology 08/01/18 09:40 Blood - Peripheral Aerobic Blood Culture - Preliminary No growth in 3 days 08/01/18 09:40 Blood - Peripheral Anaerobic Blood Culture - Preliminary No growth in 3 days 08/01/18 09:45 Blood - Peripheral Aerobic Blood Culture - Preliminary No growth in 3 days 08/01/18 09:45 Blood - Peripheral Anaerobic Blood Culture - Preliminary No growth in 3 days 08/02/18 05:15 Catheterized Urine Urine Culture - Final Patricia albicans <Donta Sanchez - Last Filed: 08/05/18 10:45> Assessment and Plan (1) Liver failure Status: Acute Code(s): K72.90 - Hepatic failure, unspecified without coma (2) Hyperbilirubinemia Status: Acute Code(s): E80.6 - Other disorders of bilirubin metabolism - Plan Assessment: - Elevated LFTs with findings indicative of cirrhosis likely alcohol related Worsening hyperalbuminemia, liver failure Worsening bili could be secondary to hepatic dysfunction and liver failure No hx IV drug use, or tattoos or any high risk sexual behaviors. No family history of liver issues. Hx of cocaine. Hx of sixpack of beer daily. Liver work up: BOBBY, ASMA, AMA negative, Ceruloplasmin 24. AAT 215. AFP-3.7. Iron-123 TIBC-217 %sat-56.7 Ferritin-9759, Hfe negative Hepatitis panel negative. 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 The SMA and MCI are patent. Hepatic steatosis. HIDA (07/09/18) No activity in intrahepatic ducts, common duct or small bowel. Considerations include include acute obstruction of the common duct and diffuse hepatocellular disease. CT scan shows no dilatation of the common duct or intrahepatic ducts. Diffuse hepatocellular disease is suspected. Given history of cirrhosis, exam is unreliable, do not suspect acute cholecystitis. US gallbladder (07/08/18) Small, nonspecific pericholecystic fluid without stones, wall thickening or sonographic Lundy's sign. The fluid may be on the basis of hepatocellular disease. The ultrasound does not support acute cholecystitis. Fatty infiltrated and mildly enlarged liver. - Ileus- Per nurse, pt had good Bm last night Abdomen X-Ray 07/28/18 1. Gastrostomy catheter in place. 2. Stable bowel gas pattern with mild to moderate colonic stool and marginal distention of the transverse colon. Differential considerations include constipation versus mild developing colonic ileus - Anemia- No bleeding reported, no EGD or colonoscopy in the past. - Coagulopathy, thrombocytopenia, hypoalbuminemia- in setting of cirrhosis - MRSA bacteremia- ID following, abx - Elevated troponin levels- Cardiology following - S/P PEG tube placement by IR 07/22/18 07/30/2018 Gastrostomy tube noted Moderate amount of bilious drainage seeping from PEG tube site-no bleeding noted or reported Abdomen distended 07/29/2018 liver ultrasound revealed the following--. Mild gallbladder wall thickening. If there is clinical concern for cholecystitis , a hepatobiliary scan may be helpful to confirm cystic duct obstruction. Enlarged fatty liver. Some ascites along the edge of the liver and spleen. Echogenic right kidney suggesting possible medical renal disease. Poor visualization of the pancreas due to shadowing bowel gas. 07/30/2018 KUB revealed the following-- Gastrostomy tube noted. Moderate gaseous distention of colon, primarily the proximal colon which appears slightly worse than on previous exam. Cecum is dilated to greater than 9 cm. 07/30/2018 WBC 14.0 hemoglobin 8.9 hematocrit 26.3 platelet count 118 Total bilirubin 21 AST 119 ALT 90 alk phos 180 trending down 07/29/2018 ammonia level 30 07/31/2018 Gastrostomy tube noted Moderate amount of bilious drainage seeping from PEG tube site-no bleeding noted Abdomen less distended 800 mL's of bilious drainage noted in collection container, staff nurse reports collection total since 5 PM yesterday States patient having small amounts of loose stool WBC 14.9 hemoglobin 10.0 hematocrit 29.3 platelet count 121 Total bilirubin 20.7 AST 112 ALT 87 alk phos 172 07/30/2018 MRCP revealed the following findings-. No intraluminal defects in the gallbladder or common bile duct. Prominent amount of ascites and large bilateral pleural effusions. Percutaneous gastrostomy in place. 08/01/2018 Bedside RN reports moderate amount of bilious drainage seeping from PEG tube site G-tube to intermittent wall suction, 100 mL's noted in collection container, decreasing Patient lethargic, nonverbal today Unable to track movement WBC 22.2 hemoglobin 10.3 hematocrit 30.1 platelet count 115 Total bilirubin 21.1 AST 112 ALT 75 alk phos 152 08/02/2018, patient continues to have poor prognosis. Mild increased leukocytosis, ascites, percutaneous gastrostomy tube connected to low intermittent suction to maintain decompressed stomach, no obvious nausea or vomiting for now End-stage liver disease, patient being followed per palliative care, patient's no code DNR status. Currently shows no immediate improvement. Last KUB done on 1227 showed mild improvement to gaseous distention of colon 08/04/2018 Patient awake and alert Altered mental status No reported nausea or vomiting Patient denies abdominal pain Prognosis [id number] liver disease-DNR status -WBC 25.3 hemoglobin 9.4 hematocrit 28.2 platelet count 196 -Total bilirubin 21.2 AST 91 ALT 61 alk phos 127 -08/03/2018 KUB: No perceptible distention. However, there is suspected wall thickening in the region of the splenic flexure of colon. No free air demonstrated. Plan N.p.o. G-tube to low intermittent wall suction Continue spironolactone and lactulose, Xifaxan PPI Monitor labs-liver function tests, H&H, ammonia Continue albumin IV antibiotics Reglan Bowel regimen Continue supportive care Further recommendations to follow Palliative care Patient was seen per myself and Dr. Sanchez, note was written on his behalf - Attending Attestation Dr. Sanchez <Diamond [place] - Last Filed: 08/04/18 13:25> (1) Liver failure Status: Acute Code(s): K72.90 - Hepatic failure, unspecified without coma (2) Hyperbilirubinemia Status: Acute Code(s): E80.6 - Other disorders of bilirubin metabolism - Attending Attestation Palliative care for now, continue supportive care. Will sign off for now, please notify us if needed again. <Donta Sanchez - Last Filed: 08/05/18 10:45>
--- NOTE | 2018-08-04 13:44 | P.DIET ---
Nutritional Evaluation Type of nutrition evaluation: follow-up Nutrition consult regarding: Tube Feeding Subjective Subjective Comments: Visible ascites and jaundice Objective - Diagnosis CP with near syncope, r/o ACS, elevated liver enzymes - Objective % IBW: 91 (IBW = 148%) Body Weight Used for Calculations: Actual (admit wt 61.2 kg) Energy Needs - Lower Range (kCal/kg): 28 Energy Needs - Upper Range (kCal/kg): 32 Lower Limit kCal/kg (kCals): 1,714 Upper Limit kCal/kg (kCals): 1,958 Lower Limit Protein Factor (Grams per Kg): 1.0 Upper Limit Protein Factor (Grams per Kg): 1.5 Lower Protein Needs (Protein): 61 Upper Protein Needs (Protein): 92 Dietitian Reviewed in Medical Record: Curent medications, Intake & Output, Labs , Medical history, Tube feeding Diet Order: NPO Objective Comments: Labs: BUN 75, Cr 3.27, estGFR 19, POC glucose 118 Assessment Assessment: F/U; Pt continues to be at nutritional risk as he is not tolerating TF and NPO status x3 days. Noted per MD note recent CT to abdomen revealed possible early cholecystitis and liver enzymes continuing to rise. Currently pt with PEG tube connected to low intermittent suction. Spoke with RN Buck who stated pt is not tolerating anything at all, not even medication. Per RN residual volume is 500- 700mls q shift. Noted pt's family declined hospice care. If pt continues to be NPO and unable to tolerate TF may need to consider TPN in order to meet nutritional needs. Labs and medications reviewed. Additional recommendations to follow related to clinical course. Dietitian following. Recommendations: 1. Consider TPN if pt remains NPO and unable to tolerate TF 2. Additional recommendations to follow 3. Dietitian following Dietitian to Monitor: Lab values, Renal labs, Intake & Output, Tube feeding tolerance, Weight change, Medical course
--- NOTE | 2018-08-04 14:31 | P.PNIM ---
Subjective Interval history: 08-03 Follow-up liver failure and ileus. Patient states he is all right denies abdominal pain. Gastric output of 300 cc. Urine output thousand cc. Discussed with nursing to restart free water 08-04 DISCUSSED WITH FAMILY-SISTER AT BEDSIDE EXPLAINED VERY POOR PROGNOSIS LIVER NOT WORKING WELL DW GI NEEDS PALLIATIVE CARE AND PROBABLE HOSPICE IN FUTURE IS A DNR AM LABS ADJUST FLUIDS MORE HYPERNATREMIC Physical Exam Vital signs: Vital Signs 08/03/18 16:36 08/03/18 20:52 08/04/18 00:00 Temperature 97.9 F 98.5 F Pulse Rate 88 86 Respiratory Rate 18 18 18 Blood Pressure 92/46 L 110/62 Pulse Oximetry 93 L 96 08/04/18 01:32 08/04/18 02:28 08/04/18 05:27 Temperature 97.7 F 97.6 F Pulse Rate 86 88 Respiratory Rate 18 18 18 Blood Pressure 108/58 L 114/62 Pulse Oximetry 100 95 08/04/18 08:00 08/04/18 12:00 Temperature 97.4 F L 98.4 F Pulse Rate 88 87 Respiratory Rate 18 18 Blood Pressure 109/56 L 116/64 Pulse Oximetry 97 96 Intake & Output 08/03/18 08/04/18 08/04/18 18:59 06:59 18:59 Intake Total 550 / 550 1660 / 1660 1100 / 1100 Output Total 1050 / 1050 500 / 500 Balance -500 / -500 1660 / 1660 600 / 600 Weight 56.5 kg Intake: IV 550 / 550 1200 / 1200 1100 / 1100 D5W/1/2NS + KCL 40 mEq Inj 1, 1000 / 1000 1000 / 1000 000 ML @ 100 mls/hr IV.CONT . Q10H [facility] Rx#:[id number] KCl Inj 40 MEQ In D5W/1/3 NS 200 / 200 Inj 1,000 ML @ 84 mls/hr IV. CONT .Q12H9M [facility] Rx#:[id number] Flexbumin 25% Inj 50 ML @ 60 150 / 150 100 / 100 mls/hr IV.SIG Q6HR [facility] Rx#: [id number] Azactam Inj 2 GM In NS Inj 100 200 / 200 100 / 100 100 / 100 ML @ 200 mls/hr IV.SIG Q8H [facility] Rx#:[id number] Water Bolus Amount 460 / 460 Output: Urine 100 / 100 Urine Amount (Catheter) 250 / 250 Condom 250 / 250 Gastric Drainage 700 / 700 500 / 500 Left Upper Quadrant Gastrostomy 700 / 700 500 / 500 Tube (PEG) Other: # Incontinent Voids 3 # Urine Diapers 1 Date of Last Bowel Movement 08/02/18 08/04/18 08/04/18 # Bowel Movements 3 # Incontinent Bowel Movements 2 1 Narrative: GENERAL: 63 yo male appearing older, chronically ill, not in acute distress at this time. SEVERE SCLERAL ICTERUS EOMI, PERRLA SKIN: Warm and dry. Jaundiced Respiratory: Upper airway congestion CARDIOVASCULAR: Regular rate and rhythm without murmurs, gallops, or rubs. RESPIRATORY: Breath sounds coarse sounding. GASTROINTESTINAL: Abdomen soft, Leakage at the PEG tube site. Abd with improving distention MUSCULOSKELETAL: No cyanosis, no edema. Neuro: alert, confused SEVERELY JAUNDICED - Urinary Catheter Management Indwelling Urethral Catheter Cath placed during this visit: yes, but has since been removed by the nurse Reason for continuing: Decision to DC catheter Insertion date: 07/12/18 Insertion time: 07:45 Removal date: 07/19/18 Removal time: 10:45 Condom Cath placed during this visit: yes Urethral indwelling: No Reason for continuing: Not indwelling catheter Insertion date: 07/19/18 Insertion time: 10:50 Results - Labs CBC & Chem 7: 08/04/18 05:17 08/04/18 05:17 Laboratory Results - last 24 hr 08/03/18 08/03/18 08/04/18 16:55 21:15 05:17 WBC 25.3 H RBC 2.68 L Hgb 9.4 L Hct 28.2 L MCV 105.2 H MCH 34.9 H MCHC 33.2 RDW 21.1 H Plt Count 96 L MPV 11.5 H Prelim Diff (Auto) Slide review pending Neut % (Auto) 83.5 H Lymph % (Auto) 9.0 [place] % (Auto) 5.4 Eos % (Auto) 1.0 Baso % (Auto) 1.1 Neut # (Auto) 21.2 H Lymph # (Auto) 2.3 [place] # (Auto) 1.4 H Eos # (Auto) 0.3 Baso # (Auto) 0.3 H WBC Differential Manual diff final Seg Neuts % (Manual) 83 H Band Neuts % (Manual) 9 H Lymphocytes % (Manual) 4 L Monocytes % (Manual) 4 Abs Neuts (Manual) 23.3 H Nucleated RBCs/100 WBC 1 H Differential Comment . Toxic Granulation 2+ H Platelet Estimate Low L Platelet Morphology Enlarged H Target Cells 1+ H Sodium Potassium Chloride Carbon Dioxide Anion Gap BUN Creatinine Estimated GFR POC Glucose 154 H 141 H Random Glucose Calcium Total Bilirubin AST ALT Alkaline Phosphatase Total Protein Albumin 08/04/18 08/04/18 08/04/18 05:17 07:47 11:31 WBC RBC Hgb Hct MCV MCH MCHC RDW Plt Count MPV Prelim Diff (Auto) Neut % (Auto) Lymph % (Auto) [place] % (Auto) Eos % (Auto) Baso % (Auto) Neut # (Auto) Lymph # (Auto) [place] # (Auto) Eos # (Auto) Baso # (Auto) WBC Differential Seg Neuts % (Manual) Band Neuts % (Manual) Lymphocytes % (Manual) Monocytes % (Manual) Abs Neuts (Manual) Nucleated RBCs/100 WBC Differential Comment Toxic Granulation Platelet Estimate Platelet Morphology Target Cells Sodium 157 H* Potassium 3.5 Chloride 123 H Carbon Dioxide 23.0 Anion Gap 11 BUN 75 H Creatinine 3.27 H Estimated GFR 19 L POC Glucose 118 H 116 H Random Glucose 137 H Calcium 8.1 L Total Bilirubin 21.2 H AST 91 H ALT 61 Alkaline Phosphatase 127 H Total Protein 5.5 L Albumin 2.3 L Microbiology 08/01/18 09:40 Blood - Peripheral Aerobic Blood Culture - Preliminary No growth in 3 days 08/01/18 09:40 Blood - Peripheral Anaerobic Blood Culture - Preliminary No growth in 3 days 08/01/18 09:45 Blood - Peripheral Aerobic Blood Culture - Preliminary No growth in 3 days 08/01/18 09:45 Blood - Peripheral Anaerobic Blood Culture - Preliminary No growth in 3 days 08/02/18 05:15 Catheterized Urine Urine Culture - Final Patricia albicans 07/13/18 08:55 Fluid - Pleural fluid Fungal Smear - Final No fungal elements seen 07/13/18 08:55 Fluid - Pleural fluid Fungal Culture - Preliminary No growth in 3 weeks 07/13/18 08:55 Fluid - Pleural fluid Acid Fast Bacilli Smear - Final No acid fast bacilli seen 07/13/18 08:55 Fluid - Pleural fluid Mycobacterial Culture - Preliminary No growth in 3 weeks - Imaging ITS Impressions Abdomen/Pelvis CT 07/08/18 18:02 CONCLUSION: 1. Severe fatty infiltration of the liver. 2. Apparent pericholecystic fluid. Also fairly robust enhancement of the gallbladder mucosa. Please correlate clinically for any evidence of cholecystitis. No stones or ductal dilatation demonstrated. Gallbladder Ultrasound 07/08/18 18:53 CONCLUSION: 1. Small, nonspecific pericholecystic fluid without stones, wall thickening or sonographic Lundy's sign. The fluid may be on the basis of hepatocellular disease. The ultrasound does not support acute cholecystitis. 2. Fatty infiltrated and mildly enlarged liver. Carotid Doppler Study 07/09/18 00:00 CONCLUSION: 1. Right Internal Carotid Artery: Findings indicate >70% stenosis, but less than near occlusion. 2. Left Internal Carotid Artery: Findings indicate <50% stenosis. Hepatobiliary Scan Nuclear Medicine 07/09/18 14:22 CONCLUSION: 1. No activity in intrahepatic ducts, common duct or small bowel. Considerations include include acute obstruction of the common duct and diffuse hepatocellular disease. 2. CT scan shows no dilatation of the common duct or intrahepatic ducts. Diffuse hepatocellular disease is suspected. Neck CTA 07/10/18 00:00 CONCLUSION: 1. 80% stenosis of the proximal right ICA. Left carotid and bilateral vertebral arteries are patent. 2. Emphysematous changes. Abdomen/Pelvis CTA 07/10/18 00:08 CONCLUSION: 1. 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 The SMA and MIC are patent. 2. Hepatic steatosis. 3. Emphysematous changes. Abdomen/Bladder Ultrasound 07/11/18 00:00 CONCLUSION: 1. Normal ultrasound appearance of the kidneys. 2. Other findings include hepatic steatosis and left pleural effusion. Elbow CT 07/11/18 00:00 CONCLUSION: 1. Small fracture fragment off the olecranon. 2. There is subcutaneous edema identified posterior to the elbow with soft tissue swelling. Head CT 07/13/18 00:00 CONCLUSION: 1. No acute intracranial abnormality. 2. Atrophy. . Gastrostomy Tube Placement 07/22/18 00:00 CONCLUSION: 1. Uncomplicated gastrostomy tube placement as above. Liver Ultrasound 07/29/18 00:00 CONCLUSION: 1. Mild gallbladder wall thickening. If there is clinical concern for cholecystitis, a hepatobiliary scan may be helpful to confirm cystic duct obstruction. 2. Enlarged fatty liver. 3. Some ascites along the edge of the liver and spleen. 4. Echogenic right kidney suggesting possible medical renal disease. 5. Poor visualization of the pancreas due to shadowing bowel gas. Cholangiopancreatography MRI 07/30/18 00:00 CONCLUSION: 1. No intraluminal defects in the gallbladder or common bile duct. 2. Prominent amount of ascites and large bilateral pleural effusions. Percutaneous gastrostomy in place. Elbow X-Ray 07/30/18 00:00 CONCLUSION: Good alignment and position of the bony structures. Chest X-Ray 08/01/18 00:00 CONCLUSION: 1. Persistent diffuse infiltrate of the right lung and much less severe patchiness in the left lung base. 2. Stable cardiomegaly. Abdomen X-Ray 08/03/18 06:00 CONCLUSION: Decreased distention. Nonobstructive pattern. Suspected left side colitis, nonspecific. - Procedures PEG Assessment and Plan - Assessment (1) Chest pain Code(s): R07.9 - Chest pain, unspecified Status: Acute (2) Elevated troponin level Code(s): R74.8 - Abnormal levels of other serum enzymes Status: Acute (3) Liver failure Code(s): K72.90 - Hepatic failure, unspecified without coma Status: Acute (4) Hyperbilirubinemia Code(s): E80.6 - Other disorders of bilirubin metabolism Status: Acute - Plan Acute metabolic encephalopathy Anisocoria EtOH abuse Recent cocaine/opiate abuse -inhaled. Denies intravenous MVI/ folate. Patient states he inhaled cocaine 4-5 days prior to admission. Denies IV drug use. Discontinued acetaminophen and related products with elevated transaminases Stat CT of the head for unequal pupil, negative for acute findings Encephalopathy improved enough to allow extubation 07/18. Check ammonia level as needed due to encephalopathy. Resume lactulose following G-tube placement by IR REMAINS CONFUSED CV: Lactic acidosis Elevated troponin likely demand ischemia Right carotid artery stenosis Elevated CPK Hypotension. Improved since stopping Lasix. Also increased IV albumin Cardiology Dr. chaudhry. No intervention planned 2D echocardiogram revealed Normal left ventricular size. Wall thickness is normal. The left ventricular systolic function is normal with an estimated ejection fraction in the range of 55-60%. Not on aspirin or heparin at this time due to thrombocytopenia Followed by vascular surgery for right carotid artery stenosis 80%. Resp: Acute hypoxemic respiratory failure Hospital-acquired pneumonia Emphysematous type changes on CT neck Hyperammonemia Hypoalbuminemia Tobacco abuse Emergently intubated and placed on mechanical ventilation. PRVC/AC 07/13/2018 Incentive spirometry. Extubated 07/18 Chest tube removed 07/19, chest x-ray after with the right lung well expanded. Consulted pulmonology IS/ Acapella, continue duonebs pulmonary drainage GI: Elevated transaminases. Worse Elevated total bilirubin. Worse Liver failure Hypoalbuminemia Cirrhosis suspect Ascites Ileus Noted CT abdomen/pelvis revealed possible early cholecystitis. Pericholecystic fluid. Ultrasound revealed negative Lundy sign. Nuclear medicine scan revealed no activity in the intrahepatic ductal compound bile duct or small bowel. Cannot rule out common bile duct obstruction CT angiogram of the abdomen/pelvis revealed 20-30% stenosis of the SMA. Patent MIC, celiac. Hepatitis panel negative. Negative w/u - ceruloplasmin, BOBBY, AMA, ASMA, SSA AMB, anti-Ronquillo, RP, scleroderma, double-stranded DNA, hemochromatosis Currently on lactulose 45 mg 3 times a day and rifaximin Resume tube feeds once G-tube placed by IR Reconsulted GI, ultrasound with gallbladder thickening, KUB with worsening colonic distention MRCP with no intraluminal defects in the gallbladder or common bile duct. Repeat ammonia level within normal limits Ct IV albumin and Reglan. Increase activity as tolerated discussed with nursing and PT Endo: Sliding scale insulin with Accu-Cheks to maintain euglycemia/every 6 hours low regimen TSH 1. Cortisol 25 Glucose control acceptable Renal: Acute kidney failure. Worse likely hepatorenal Hypernatremia. Hypokalemia Avoid nephrotoxic medication. Discontinued vancomycin Convert fluid to D5 1/4 NS with KCl 40 mEq/L. Restart free water and ct IV albumin Monitor and replete electrolytes Heme: Macrocytic anemia Thrombocytopenia Coagulopathic state Follow-up on PT/INR Platelet transfusion ordered prior to G-tube placement by IR ID: MRSA bacteremia Septic shock Pneumonia Worsening leukocytosis. Negative C. difficile 2D transthoracic echocardiogram revealed no signs of endocarditis. Infectious disease switched Zosyn to aztreonam follow-up repeat blood and urine cultures MSK: Left posterior olecranon fracture Followed by Dr. Blanco, splint removed FEN: Replace electrolytes as clinically indicated. Access -Utilize peripheral IV. Prophylaxis -GI -pantoprazole -DVT-SCD/hold off chemical DVT prophylaxis due to severe thrombocytopenia, prolonged INR SEVERELY JAUNDICED DW SISTER AT BEDSIDE POOR PROGNOSIS Code Status: DNR Discussed Condition With: RN AND PT AND FAMILY AND GI Discharge Planning: PENDING IMPROVEMENT FAMILY [facility]CL[facility] HOSPICE POOR PROGNOSIS
--- NOTE | 2018-08-04 18:19 | P.PNPL ---
Subjective Interval history: 63 YOWM with RF, increased liver enzymes has pulm congestion no hemoptysis No abd pain no fever Denies sob, takes off 02 Physical Exam Vital signs: Vital Signs 08/03/18 20:52 08/04/18 00:00 08/04/18 01:32 Temperature 98.5 F 97.7 F Pulse Rate 86 86 Respiratory Rate 18 18 18 Blood Pressure 110/62 108/58 L Pulse Oximetry 96 100 08/04/18 02:28 08/04/18 05:27 08/04/18 08:00 Temperature 97.6 F 97.4 F L Pulse Rate 88 88 Respiratory Rate 18 18 18 Blood Pressure 114/62 109/56 L Pulse Oximetry 95 97 08/04/18 12:00 08/04/18 16:00 Temperature 98.4 F 97.5 F L Pulse Rate 87 87 Respiratory Rate 18 18 Blood Pressure 116/64 109/65 Pulse Oximetry 96 98 Intake & Output 08/03/18 08/04/18 08/04/18 18:59 06:59 18:59 Intake Total 550 / 550 1660 / 1660 1250 / 1250 Output Total 1050 / 1050 500 / 500 Balance -500 / -500 1660 / 1660 750 / 750 Weight 56.5 kg Intake: IV 550 / 550 1200 / 1200 1250 / 1250 D5W/1/2NS + KCL 40 mEq Inj 1, 1000 / 1000 1000 / 1000 000 ML @ 100 mls/hr IV.CONT . Q10H [facility] Rx#:[id number] KCl Inj 40 MEQ In D5W/1/3 NS 200 / 200 Inj 1,000 ML @ 84 mls/hr IV. CONT .Q12H9M [facility] Rx#:[id number] Flexbumin 25% Inj 50 ML @ 60 150 / 150 100 / 100 50 / 50 mls/hr IV.SIG Q6HR [facility] Rx#: [id number] Azactam Inj 2 GM In NS Inj 100 200 / 200 100 / 100 200 / 200 ML @ 200 mls/hr IV.SIG Q8H [facility] Rx#:[id number] Water Bolus Amount 460 / 460 Output: Urine 100 / 100 Urine Amount (Catheter) 250 / 250 Condom 250 / 250 Gastric Drainage 700 / 700 500 / 500 Left Upper Quadrant Gastrostomy 700 / 700 500 / 500 Tube (PEG) Other: # Incontinent Voids 3 # Urine Diapers 1 Date of Last Bowel Movement 08/02/18 08/04/18 08/04/18 # Bowel Movements 3 # Incontinent Bowel Movements 2 1 GENERAL: Elderly WM, NAD SKIN: Warm and dry. HEAD: Normocephalic. EYES: No scleral icterus. No injection or drainage. NECK: Supple, trachea midline. No JVD or lymphadenopathy. CARDIOVASCULAR: Regular rate and rhythm without murmurs, gallops, or rubs. RESPIRATORY: Breath sounds equal bilaterally. No accessory muscle use. GASTROINTESTINAL: Abdomen soft, non-tender, nondistended. MUSCULOSKELETAL: No cyanosis, or edema. BACK: Nontender without obvious deformity. No CVA tenderness. - Urinary Catheter Management Indwelling Urethral Catheter Cath placed during this visit: yes, but has since been removed by the nurse Reason for continuing: Decision to DC catheter Insertion date: 07/12/18 Insertion time: 07:45 Removal date: 07/19/18 Removal time: 10:45 Condom Cath placed during this visit: yes Urethral indwelling: No Reason for continuing: Not indwelling catheter Insertion date: 07/19/18 Insertion time: 10:50 Assessment and Plan - Plan IMPRESSION: 1. Methicillin-resistant Staphylococcus aureus. 2. Urinary tract infection. 3. Sepsis. 4. Hemoptysis. 5. Respiratory distress status post extubation. 6. Increased liver enzymes. 7. Thrombocytopenia. 8. The patient is homeless. 9. Nicotine use. 10. Alcohol use. PLAN: monitor Lytes monitor Plt count Protonix 40 mg IV daily Supplement 02 to keep sat >90% Cont Abx Monitor CBC
[2018-08-04] MEDS: DEXTROSE IV.CONT SCH (21:00)
[2018-08-04] MEDS: NACL 0.225% IV.CONT SCH (21:00)
[2018-08-04] MEDS: POTASSIUM CHLORIDE IV.CONT SCH (21:00)
[2018-08-04] MEDS: Morphine Inj 4 MG/ML Vial IV.PUSH PRN (21:00)
[2018-08-05] MEDS: POTASSIUM CHLORIDE IV.CONT SCH ×2 (03:42→12:04)
[2018-08-05] MEDS: NACL 0.225% IV.CONT SCH ×2 (03:42→12:04)
[2018-08-05] MEDS: DEXTROSE IV.CONT SCH ×2 (03:42→12:04)
[2018-08-05] MEDS: Oral Hygiene Kit OROPHARYNG SCH ×3 (04:55→17:23)
[2018-08-05] MEDS: Aztreonam Inj 2 GM in Sodium Chloride 0.9% Inj 100 ML IV.SIG SCH ×3 (06:40→22:09)
[2018-08-05] MEDS: Albumin Human 25% Inj 50 ML IV.SIG SCH (06:41)
[2018-08-05] MEDS: Insulin NovoLOG Aspart Correctional Sugar Inj SQ SCH ×4 (08:00→20:41)
[2018-08-05] MEDS: Pantoprazole Inj 40 MG Vial IV.PUSH SCH (10:43)
[2018-08-05] MEDS: rifAXIMin 550 MG Tablet PO SCH ×2 (10:43→22:09)
[2018-08-05] MEDS: Mupirocin 2% Nasal Oint Topical Syringe EACH NARE SCH ×2 (10:45→22:08)
[2018-08-05] MEDS: Chlorhexidine 0.12% Oral Kit 15 ML UDC OROPHARYNG SCH ×2 (10:45→20:40)
[2018-08-05] MEDS: Metoclopramide 10 MG Tablet G-TUBE SCH (10:47)
[2018-08-05 11:08] LABS: Baso # (Auto) 0.1 th/mm3 (0.0-0.2); Baso % (Auto) 0.5 % (0.0-2.0); Eos # (Auto) 0.2 th/mm3 (0.0-0.4); Eos % (Auto) 0.9 % (0.0-4.0); Hemoglobin 9.1 gm/dL (13.0-17.0); Lymph # (Auto) 2.4 th/mm3 (1.0-4.8); Lymph % (Auto) 9.1 % (9.0-44.0); Mean Corpuscular HGB Conc 32.4 % (32.0-36.0); Mean Corpuscular Hemoglobin 34.2 pg (27.0-34.0); Mean Corpuscular Volume 105.7 fL (80.0-100.0); Mean Platelet Volume 11.7 fL (7.0-11.0); Mono # (Auto) 1.7 th/mm3 (0.0-0.9); Mono % (Auto) 6.2 % (0.0-8.0); Neut # (Auto) 22.1 th/mm3 (1.8-7.7); Neut % (Auto) 83.3 % (16.0-70.0); Platelet Count 77 th/mm3 (150-450); Red Blood Count 2.65 mil/mm3 (4.50-5.90); Red Cell Distribution Width 20.7 % (11.6-17.2); White Blood Count 26.6 th/mm3 (4.0-11.0)
[2018-08-05 11:10] LABS: Alanine Aminotransferase 55 U/L (12-78); Albumin 2.3 g/dL (3.4-5.0); Alkaline Phosphatase 117 U/L (45-117); Anion Gap 10 meq/L (5-15); Aspartate Aminotransferase 88 U/L (15-37); Blood Urea Nitrogen 92 mg/dL (7-18); Calcium 8.4 mg/dL (8.5-10.1); Carbon Dioxide 23.8 meq/L (21.0-32.0); Chloride 124 meq/L (98-107); Free T4 (Free Thyroxine) 0.84 ng/dL (0.76-1.46); Glomerular Filtration Rate 16 mL/min (>89); Glucose,Random 148 mg/dL (74-106); Magnesium 2.7 mg/dL (1.5-2.5); Phosphorus 4.4 mg/dL (2.5-4.9); Potassium 4.1 meq/L (3.5-5.1); Total Protein 5.7 g/dL (6.4-8.2)
[2018-08-05 11:20] LABS: Sodium 158 meq/L (136-145)
[2018-08-05] MEDS: Lidocaine 5% Patch T-DERMAL SCH (11:58)
[2018-08-05 12:07] LABS: Eosinophils 2 % (0-4); Lymphocytes 14 % (9-44); Monocytes 4 % (0-8); Platelet Morphology Normal (Normal); Target Cells 1+
--- NOTE | 2018-08-05 12:23 | P.PNPL ---
Subjective Interval history: 63 YOWM with RF, increased liver enzymes has pulm congestion no hemoptysis No abd pain no fever Gets confused Physical Exam Vital signs: Vital Signs 08/04/18 16:00 08/04/18 20:00 08/05/18 00:00 Temperature 97.5 F L 97.2 F L 97.2 F L Pulse Rate 87 90 92 H Respiratory Rate 18 19 18 Blood Pressure 109/65 98/55 L 111/55 L Pulse Oximetry 98 98 98 08/05/18 03:45 08/05/18 04:00 08/05/18 08:10 Temperature 97.9 F 98.3 F Pulse Rate 88 88 Respiratory Rate 20 17 20 Blood Pressure 106/51 L 97/61 L Pulse Oximetry 97 98 Intake & Output 08/04/18 08/05/18 08/05/18 18:59 06:59 18:59 Intake Total 1250 / 1250 1000 / 1000 1120 / 1120 Output Total 850 / 850 750 / 750 Balance 400 / 400 250 / 250 1120 / 1120 Weight 56.5 kg Intake: IV 1250 / 1250 200 / 200 1120 / 1120 D5W/1/2NS + KCL 40 mEq Inj 1, 1000 / 1000 000 ML @ 100 mls/hr IV.CONT . Q10H [facility] Rx#:[id number] KCl Inj 40 MEQ In D5W/1/4 NS 1020 / 1020 Inj 1,000 ML @ 100 mls/hr IV. CONT .[id number] [facility] Rx#:[id number] Flexbumin 25% Inj 50 ML @ 60 50 / 50 100 / 100 mls/hr IV.SIG Q6HR [facility] Rx#: [id number] Azactam Inj 2 GM In NS Inj 100 200 / 200 100 / 100 100 / 100 ML @ 200 mls/hr IV.SIG Q8H [facility] Rx#:[id number] Water Bolus Amount 800 / 800 Output: Gastric Drainage 850 / 850 750 / 750 Left Upper Quadrant Gastrostomy 850 / 850 750 / 750 Tube (PEG) Other: Date of Last Bowel Movement 08/04/18 08/04/18 GENERAL: Eldelry WM, No distess SKIN: Warm and dry. HEAD: Normocephalic. EYES: No scleral icterus. No injection or drainage. NECK: Supple, trachea midline. No JVD or lymphadenopathy. CARDIOVASCULAR: Regular rate and rhythm without murmurs, gallops, or rubs. RESPIRATORY: Breath sounds equal bilaterally. No accessory muscle use. GASTROINTESTINAL: Abdomen soft, non-tender, nondistended. MUSCULOSKELETAL: No cyanosis, or edema. BACK: Nontender without obvious deformity. No CVA tenderness. - Urinary Catheter Management Indwelling Urethral Catheter Cath placed during this visit: yes, but has since been removed by the nurse Reason for continuing: Decision to DC catheter Insertion date: 07/12/18 Insertion time: 07:45 Removal date: 07/19/18 Removal time: 10:45 Condom Cath placed during this visit: yes Urethral indwelling: No Reason for continuing: Not indwelling catheter Insertion date: 07/19/18 Insertion time: 10:50 Assessment and Plan - Plan IMPRESSION: 1. Methicillin-resistant Staphylococcus aureus. 2. Urinary tract infection. 3. Sepsis. 4. Hemoptysis. 5. Respiratory distress status post extubation. 6. Increased liver enzymes. 7. Thrombocytopenia. 8. The patient is homeless. 9. Nicotine use. 10. Alcohol use. PLAN: monitor Lytes monitor Plt count Protonix 40 mg IV daily Supplement 02 to keep sat >90% Cont Abx
[2018-08-05 12:32] LABS: Hemoglobin A1c 4.3 % (4.3-6.0)
--- NOTE | 2018-08-05 13:54 | P.PNID ---
Subjective Remarks: Patient is a 63-year-old male, presented to the hospital complaining of pain and swelling on his left elbow. He stated that he fell about a week ago but did not seek any treatment for his left elbow. He presented to the ED, and he was found to have a fracture of the olecranon on the left side. Patient also since admission has complained of some abdominal pain. He has known history of significant alcohol abuse. Imaging studies of the abdomen showed hepatic steatosis, pericholecystic fluid with no ductal dilatation. Ultrasound showed pericholecystic fluid with negative Lundy sign. He had a HIDA scan which showed no activity which could most likely be due to his liver disease. Patient also had a CTA as part of evaluation for his abdominal pain. That is okay. There were 2 blood cultures done in the ED, and they are now reported as growing MRSA. Patient has had some low-grade temps. Overnight he had persistent hypotension, and he was transferred to the ICU. Patient currently is on pressors. He is afebrile. He is still complaining of abdominal pain. He states he has chronic back pain which has not changed. He denies any shortness of breath. On this admission he was also found to have 80% right carotid artery stenosis, and vascular is following the patient. Echocardiograms not showing any obvious vegetation. His WBC is mildly elevated. He has an elevated lactic acid. His platelet count is low, fibrinogen is normal. Infectious disease consultation has been requested to assist with evaluation and treatment of his bacteremia. Notes reviewed Connfused, awake and answering my questions Has wrist restraints WBC remains elevated Afebrile Has a lot of leaking around the PEG BC negative UC with Patricia albicans States his abdomen is hurting Creatinine slightly better Antibiotics: Azactam Lines: Line sites with no e.o infection Past Medical History: Tobacco and ETOH abuse Drug screen (+) cocaine (denies IVDU), admits to smoking Allergies/Adverse Reactions: Allergies No Known Allergies Allergy (Verified 07/08/18 12:30) Objective Vital Signs 08/04/18 16:00 08/04/18 20:00 08/05/18 00:00 Temperature 97.5 F L 97.2 F L 97.2 F L Pulse Rate 87 90 92 H Respiratory Rate 18 Blood Pressure 109/65 98/55 L 111/55 L Pulse Oximetry 98 98 98 08/05/18 03:45 08/05/18 04:00 08/05/18 08:10 Temperature 97.9 F 98.3 F Pulse Rate 88 88 Respiratory Rate 20 17 20 Blood Pressure 106/51 L 97/61 L Pulse Oximetry 97 98 08/05/18 10:35 Temperature 98.4 F Pulse Rate 79 Respiratory Rate 20 Blood Pressure 99/56 L Pulse Oximetry 98 Intake & Output 08/04/18 08/05/18 08/05/18 18:59 06:59 18:59 Intake Total 1250 / 1250 1000 / 1000 1120 / 1120 Output Total 850 / 850 750 / 750 Balance 400 / 400 250 / 250 1120 / 1120 Weight 56.5 kg Intake: IV 1250 / 1250 200 / 200 1120 / 1120 D5W/1/2NS + KCL 40 mEq Inj 1, 1000 / 1000 000 ML @ 100 mls/hr IV.CONT . Q10H [facility] Rx#:[id number] KCl Inj 40 MEQ In D5W/1/4 NS 1020 / 1020 Inj 1,000 ML @ 100 mls/hr IV. CONT .[id number] [facility] Rx#:[id number] Flexbumin 25% Inj 50 ML @ 60 50 / 50 100 / 100 mls/hr IV.SIG Q6HR [facility] Rx#: [id number] Azactam Inj 2 GM In NS Inj 100 200 / 200 100 / 100 100 / 100 ML @ 200 mls/hr IV.SIG Q8H [facility] Rx#:[id number] Water Bolus Amount 800 / 800 Output: Gastric Drainage 850 / 850 750 / 750 Left Upper Quadrant Gastrostomy 850 / 850 750 / 750 Tube (PEG) Other: Date of Last Bowel Movement 08/04/18 08/04/18 08/01/18 09:40 Blood - Peripheral Aerobic Blood Culture - Preliminary No growth in 4 days 08/01/18 09:40 Blood - Peripheral Anaerobic Blood Culture - Preliminary No growth in 4 days 08/01/18 09:45 Blood - Peripheral Aerobic Blood Culture - Preliminary No growth in 4 days 08/01/18 09:45 Blood - Peripheral Anaerobic Blood Culture - Preliminary No growth in 4 days 08/02/18 05:15 Catheterized Urine Urine Culture - Final Patricia albicans 07/13/18 08:55 Fluid - Pleural fluid Fungal Smear - Final No fungal elements seen 07/13/18 08:55 Fluid - Pleural fluid Fungal Culture - Preliminary No growth in 3 weeks 07/13/18 08:55 Fluid - Pleural fluid Acid Fast Bacilli Smear - Final No acid fast bacilli seen 07/13/18 08:55 Fluid - Pleural fluid Mycobacterial Culture - Preliminary No growth in 3 weeks 07/28/18 13:52 Blood - Peripheral Aerobic Blood Culture - Final No growth in 5 days 07/28/18 13:52 Blood - Peripheral Anaerobic Blood Culture - Final No growth in 5 days 07/28/18 13:57 Blood - Peripheral Aerobic Blood Culture - Final No growth in 5 days 07/28/18 13:57 Blood - Peripheral Anaerobic Blood Culture - Final No growth in 5 days Lab - Hematology Results 08/04/18 08/05/18 05:17 10:26 WBC 25.3 H 26.6 H RBC 2.68 L 2.65 L Hgb 9.4 L 9.1 L Hct 28.2 L 28.0 L MCV 105.2 H 105.7 H MCH 34.9 H 34.2 H MCHC 33.2 32.4 RDW 21.1 H 20.7 H Plt Count 96 L 77 L MPV 11.5 H 11.7 H Prelim Diff (Auto) Slide review pending Slide review pending Neut % (Auto) 83.5 H 83.3 H Lymph % (Auto) 9.0 9.1 [place] % (Auto) 5.4 6.2 Eos % (Auto) 1.0 0.9 Baso % (Auto) 1.1 0.5 Neut # (Auto) 21.2 H 22.1 H Lymph # (Auto) 2.3 2.4 [place] # (Auto) 1.4 H 1.7 H Eos # (Auto) 0.3 0.2 Baso # (Auto) 0.3 H 0.1 WBC Differential Manual diff final Manual diff final Seg Neuts % (Manual) 83 H 65 Band Neuts % (Manual) 9 H 15 H Lymphocytes % (Manual) 4 L 14 Monocytes % (Manual) 4 4 Eosinophils % (Manual) 2 Abs Neuts (Manual) 23.3 H 21.3 H Nucleated RBCs/100 WBC 1 H Differential Comment . . Toxic Granulation 2+ H Platelet Estimate Low L Low L Platelet Morphology Enlarged H Normal Target Cells 1+ H 1+ H Hematology Comments Lab - Chemistry Results 08/03/18 08/03/18 08/04/18 16:55 21:15 05:17 Sodium 157 H* Potassium 3.5 Chloride 123 H Carbon Dioxide 23.0 Anion Gap 11 BUN 75 H Creatinine 3.27 H Estimated GFR 19 L POC Glucose 154 H 141 H Random Glucose 137 H Hemoglobin A1c Calcium 8.1 L Phosphorus Magnesium Total Bilirubin 21.2 H AST 91 H ALT 61 Alkaline Phosphatase 127 H Ammonia Total Protein 5.5 L Albumin 2.3 L TSH Free T4 08/04/18 08/04/18 08/04/18 07:47 11:31 17:42 Sodium Potassium Chloride Carbon Dioxide Anion Gap BUN Creatinine Estimated GFR POC Glucose 118 H 116 H 97 Random Glucose Hemoglobin A1c Calcium Phosphorus Magnesium Total Bilirubin AST ALT Alkaline Phosphatase Ammonia Total Protein Albumin TSH Free T4 08/04/18 08/05/18 08/05/18 23:48 08:36 10:26 Sodium Potassium Chloride Carbon Dioxide Anion Gap BUN Creatinine Estimated GFR POC Glucose 96 148 H Random Glucose Hemoglobin A1c 4.3 Calcium Phosphorus Magnesium Total Bilirubin AST ALT Alkaline Phosphatase Ammonia Total Protein Albumin TSH Free T4 08/05/18 08/05/18 08/05/18 10:26 10:26 12:16 Sodium 158 H* Potassium 4.1 Chloride 124 H Carbon Dioxide 23.8 Anion Gap 10 BUN 92 H Creatinine 3.76 H Estimated GFR 16 L POC Glucose 144 H Random Glucose 148 H Hemoglobin A1c Calcium 8.4 L Phosphorus 4.4 Magnesium 2.7 H Total Bilirubin 20.9 H AST 88 H ALT 55 Alkaline Phosphatase 117 Ammonia Less than 10 L Total Protein 5.7 L Albumin 2.3 L TSH 1.160 Free T4 0.84 Imaging: ITS Impressions Abdomen/Pelvis CT 07/08/18 18:02 CONCLUSION: 1. Severe fatty infiltration of the liver. 2. Apparent pericholecystic fluid. Also fairly robust enhancement of the gallbladder mucosa. Please correlate clinically for any evidence of cholecystitis. No stones or ductal dilatation demonstrated. Gallbladder Ultrasound 07/08/18 18:53 CONCLUSION: 1. Small, nonspecific pericholecystic fluid without stones, wall thickening or sonographic Lundy's sign. The fluid may be on the basis of hepatocellular disease. The ultrasound does not support acute cholecystitis. 2. Fatty infiltrated and mildly enlarged liver. Carotid Doppler Study 07/09/18 00:00 CONCLUSION: 1. Right Internal Carotid Artery: Findings indicate >70% stenosis, but less than near occlusion. 2. Left Internal Carotid Artery: Findings indicate <50% stenosis. Hepatobiliary Scan Nuclear Medicine 07/09/18 14:22 CONCLUSION: 1. No activity in intrahepatic ducts, common duct or small bowel. Considerations include include acute obstruction of the common duct and diffuse hepatocellular disease. 2. CT scan shows no dilatation of the common duct or intrahepatic ducts. Diffuse hepatocellular disease is suspected. Neck CTA 07/10/18 00:00 CONCLUSION: 1. 80% stenosis of the proximal right ICA. Left carotid and bilateral vertebral arteries are patent. 2. Emphysematous changes. Abdomen/Pelvis CTA 07/10/18 00:08 CONCLUSION: 1. 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 The SMA and MIC are patent. 2. Hepatic steatosis. 3. Emphysematous changes. Abdomen/Bladder Ultrasound 07/11/18 00:00 CONCLUSION: 1. Normal ultrasound appearance of the kidneys. 2. Other findings include hepatic steatosis and left pleural effusion. Elbow CT 07/11/18 00:00 CONCLUSION: 1. Small fracture fragment off the olecranon. 2. There is subcutaneous edema identified posterior to the elbow with soft tissue swelling. Head CT 07/13/18 00:00 CONCLUSION: 1. No acute intracranial abnormality. 2. Atrophy. . Gastrostomy Tube Placement 07/22/18 00:00 CONCLUSION: 1. Uncomplicated gastrostomy tube placement as above. Liver Ultrasound 07/29/18 00:00 CONCLUSION: 1. Mild gallbladder wall thickening. If there is clinical concern for cholecystitis, a hepatobiliary scan may be helpful to confirm cystic duct obstruction. 2. Enlarged fatty liver. 3. Some ascites along the edge of the liver and spleen. 4. Echogenic right kidney suggesting possible medical renal disease. 5. Poor visualization of the pancreas due to shadowing bowel gas. Cholangiopancreatography MRI 07/30/18 00:00 CONCLUSION: 1. No intraluminal defects in the gallbladder or common bile duct. 2. Prominent amount of ascites and large bilateral pleural effusions. Percutaneous gastrostomy in place. Elbow X-Ray 07/30/18 00:00 CONCLUSION: Good alignment and position of the bony structures. Chest X-Ray 08/01/18 00:00 CONCLUSION: 1. Persistent diffuse infiltrate of the right lung and much less severe patchiness in the left lung base. 2. Stable cardiomegaly. Abdomen X-Ray 08/03/18 06:00 CONCLUSION: Decreased distention. Nonobstructive pattern. Suspected left side colitis, nonspecific. Physical Exam: GENERAL: awake, answering my questions, has wrist restraints. No acute distress. SKIN: No rash. Warm. HEENT: The head is atraumatic. Pupils reactive to light. No icterus. Oropharynx mucosa dry. CARDIOVASCULAR: Regular rate and rhythm. RESPIRATORY: Decreased breath sounds bilateral. No rhonchi. ABDOMEN: Slightly distended, no guarding, Gtube with Patricia rash around it EXTREMITIES: No clubbing, cyanosis. Mild pedal edema. NEUROLOGICAL: Non-focal PSYCHIATRIC: Calm and cooperative today LINE: No evidence of infection Assessment and Plan - Plan Impression MRSA sepsis ? olecranon trauma as entry point for MRSA MRSA bacteremia, ? endocarditis - echo ok - S/P Rx Shock, resolved Known ETOH abuse and tobacco abuse Denies IVDU, admits to smoking cocaine ETOH liver disease Elevated LFT Thrombocytopenia Acute renal failure: sepsis, contrast, meds. Respiratory failure, extubated Pleural effusion, fluid transudative Leukocytosis. No clear etiology. Recommendation On Azactam Diflucan po Antifungal around PEG site Consider tap of ascites for analysis and C/S Follow CBC
[2018-08-05] MEDS: Fluconazole 100 MG Tablet PO SCH (14:23)
--- NOTE | 2018-08-05 14:50 | P.PNIM ---
Subjective Interval history: 63-year-old gentleman admitted with 63-year-old gentleman admitted with severe sepsis, positive for MRSA felt related to upper extremity trauma status post respiratory failure, intubation, currently extubated, now with G-tube and ileus, and decompensated cirrhosis. Patient's case discussed with history of bedside. Patient seen and examined, confused but following, no distress, complaining of back pain, complaining of abdominal pain, no nausea vomiting, Physical Exam Vital signs: Last Vital Signs Temp 98.4 F 08/05/18 10:35 Pulse 79 08/05/18 10:35 Resp 20 08/05/18 10:35 BP 99/56 L 08/05/18 10:35 Pulse Ox 98 08/05/18 10:35 Intake & Output 08/03/18 08/04/18 08/05/18 08/06/18 06:59 06:59 06:59 06:59 Intake Total 3420 / 3420 2210 / 2210 2250 / 2250 1120 / 1120 Output Total 1300 / 1300 1050 / 1050 1600 / 1600 Balance 2120 / 2120 1160 / 1160 650 / 650 1120 / 1120 Weight 56.5 kg 56.5 kg 56.5 kg Chronically ill jaundiced 63-year-old gentleman Awake alert, confused, no distress, Heart S1-S2 regular Lungs diminished breath sounds no wheeze no rhonchi Abdomen nondistended, decreased bowel sounds, G-tube in place, drainage around G -tube, erythematous rash around G-tube Extremities no clubbing cyanosis edema, diffuse muscle weakness bilateral upper and lower, no calf tenderness Urinary Catheter Management Indwelling Urethral Catheter: Cath placed during this visit: yes, but has since been removed by the nurse Insertion date: 07/12/18 Insertion time: 07:45 Removal date: 07/19/18 Removal time: 10:45 Condom: Cath placed during this visit: yes Urethral indwelling: No Insertion date: 07/19/18 Insertion time: 10:50 Results Labs CBC & Chem 7: 08/05/18 10:26 08/05/18 10:26 Labs: Microbiology 08/01/18 09:40 Blood - Peripheral Aerobic Blood Culture - Preliminary No growth in 4 days 08/01/18 09:40 Blood - Peripheral Anaerobic Blood Culture - Preliminary No growth in 4 days 08/01/18 09:45 Blood - Peripheral Aerobic Blood Culture - Preliminary No growth in 4 days 08/01/18 09:45 Blood - Peripheral Anaerobic Blood Culture - Preliminary No growth in 4 days Procedures Procedures: PEG Assessment and Plan (1) Chest pain: Code(s): R07.9 - Chest pain, unspecified Status: Acute (2) Elevated troponin level: Code(s): R74.8 - Abnormal levels of other serum enzymes Status: Acute (3) Liver failure: Code(s): K72.90 - Hepatic failure, unspecified without coma Status: Acute (4) Hyperbilirubinemia: Code(s): E80.6 - Other disorders of bilirubin metabolism Status: Acute Plan SEVERE SEPSIS DUE to MRSA with bacteremia- resolved, status post treatment, repeat cultures negative, now with worsening leukocytosis, restarted on aztreonam, ID following ACUTE HYPOXIC RESP FAILURE post intubation, extubation, now stable on room air ASPIRATION PNA w large R Pleural effusion s/p pigtail drainage, status post treatment, now with persistent right-sided infiltrate on chest x-ray, follow- up, patient has significant dysphagia and is recommended to continue n.p.o., continue speech therapy METABOLIC AND HEPATIC ENCEPHALOPATHY some improvement, persistent confusion, continue lactulose for hyperammonemia DECOMPENSATED ALCOHOLIC CIRRHOSIS, total bilirubin continues to rise, severe cholestatic jaundice, poor prognosis, resume diuretics, rifaximin, lactulose when able to tolerate p.o. SEVERE PROTEIN ÁNGEL MALNUTRITIONhas been n.p.o. and without tube feedings due to ileus, hold p.o. meds, clamp G-tube LIS if tolerated., will need to consider TPN if unable to tolerate enteral feeds in the next 24-48 hours, discussed risks with sister OROPHARYNGEAL DYSPHASIA status post G-tube ACUTE ILEUS with suspected colitis per x-ray, continue empiric IV antibiotics, follow-up with GI, hold tube feeds, ACUTE RENAL FAILURE, question hepatorenal syndrome, avoid hypotension, continue fluids as tolerated, L OLECRANON FRACTURE currently in immobilizer follow-up with x-rays, Orth follow-up, continue PT, OT HYPERNATREMIA with free water deficit, continue quarter normal saline resume free water per G-tube when able MACROCYTIC ANEMIA chronic, no evidence of bleeding LEUKOCYTOSISsuspect colitis versus aspiration pneumonia, continue antibiotics repeat cultures continue as per ID EtOHdependence, nicotine dependence, history IV drug use, cocaine use, currently no withdrawal issues, continue cessation, continue thiamine folate. SEVERE MUSCLE WEAKNESS, critical care myopathy and deconditioning, pt, oob as tolerated Code status - DNR per sister hcs, DVT prophylaxis - scd, coagulopathic due to liver dz dispo - will need rehab, poor prognosis, palliative care followeing, hospice appropriate if continues to decline, sister agreeable. Progress Note: Quality VTE Deep Vein Thrombosis/Pulmonary Embolism Present on Admission: No _ (1) Liver failure Qualifiers: Hepatic coma status: Liver failure chronicity: (2) Chest pain Qualifiers: Chest pain type: Ischemic chest pain type:
[2018-08-05] MEDS: Clotrimazole 1% Cream 15 GM Tube TOPICAL SCH (17:25)
--- NOTE | 2018-08-05 18:24 | XR ---
EXAM DATE: 08/05/2018 6:12 PM EST AGE/SEX: 63 years / Male INDICATIONS: . Short of breath. CLINICAL DATA: This is the patient's initial encounter. Patient reports that signs and symptoms have been present for 1 day and indicates a pain score of Nonresponsive. MEDICAL/SURGICAL HISTORY: Non-responsive. Non-responsive. COMPARISON: [facility] – [place], CHEST 1V SINGLE AP, 08/01/2018. . FINDINGS: Compared with August 01 right pleural effusion has decreased in size. Mild edema pattern persists. No pneumothorax. Cardiomegaly. CONCLUSION: Improvement in right effusion and basilar airspace disease since August 01. Electronically signed by: Martin Elkins MD Board Certified Radiologist 08/05/2018 6:22 PM EST
[2018-08-06] MEDS: DEXTROSE 5% IV.SIG SCH ×9 (03:49→18:30)
[2018-08-06] MEDS: POTASSIUM CHLORIDE IV.SIG SCH ×9 (03:49→18:30)
[2018-08-06] MEDS: SODIUM CHLORIDE IV.SIG SCH ×9 (03:49→18:30)
[2018-08-06] MEDS: [UNRECOGNIZED DRUG - OTHER] IV.SIG SCH ×9 (03:49→18:30)
[2018-08-06] MEDS: Oral Hygiene Kit OROPHARYNG SCH ×5 (03:50→23:24)
[2018-08-06] MEDS: Aztreonam Inj 2 GM in Sodium Chloride 0.9% Inj 100 ML IV.SIG SCH ×2 (05:00→13:08)
[2018-08-06 07:50] LABS: Baso # (Auto) 0.1 th/mm3 (0.0-0.2); Baso % (Auto) 0.6 % (0.0-2.0); Eos # (Auto) 0.3 th/mm3 (0.0-0.4); Eos % (Auto) 1.1 % (0.0-4.0); Hematocrit 29.3 % (39.0-51.0); Hemoglobin 9.5 gm/dL (13.0-17.0); Lymph % (Auto) 8.4 % (9.0-44.0); Mean Corpuscular HGB Conc 32.4 % (32.0-36.0); Mean Corpuscular Hemoglobin 34.6 pg (27.0-34.0); Mean Corpuscular Volume 106.7 fL (80.0-100.0); Mono # (Auto) 1.5 th/mm3 (0.0-0.9); Mono % (Auto) 6.2 % (0.0-8.0); Neut # (Auto) 19.7 th/mm3 (1.8-7.7); Neut % (Auto) 83.7 % (16.0-70.0); Platelet Count 70 th/mm3 (150-450); Red Blood Count 2.74 mil/mm3 (4.50-5.90); Red Cell Distribution Width 21.5 % (11.6-17.2); White Blood Count 23.6 th/mm3 (4.0-11.0)
[2018-08-06 07:59] LABS: Alanine Aminotransferase 62 U/L (12-78); Albumin 2.1 g/dL (3.4-5.0); Alkaline Phosphatase 119 U/L (45-117); Anion Gap 11 meq/L (5-15); Aspartate Aminotransferase 96 U/L (15-37); Blood Urea Nitrogen 104 mg/dL (7-18); Calcium 8.4 mg/dL (8.5-10.1); Carbon Dioxide 22.9 meq/L (21.0-32.0); Chloride 124 meq/L (98-107); Glomerular Filtration Rate 15 mL/min (>89); Glucose,Random 112 mg/dL (74-106); Magnesium 2.8 mg/dL (1.5-2.5); Phosphorus 4.4 mg/dL (2.5-4.9); Potassium 4.3 meq/L (3.5-5.1); Total Protein 5.6 g/dL (6.4-8.2)
[2018-08-06 08:08] LABS: Sodium 158 meq/L (136-145)
[2018-08-06] MEDS: rifAXIMin 550 MG Tablet PO SCH ×2 (08:27→21:44)
[2018-08-06] MEDS: Pantoprazole Inj 40 MG Vial IV.PUSH SCH (08:27)
[2018-08-06] MEDS: Fluconazole 100 MG Tablet PO SCH (08:27)
[2018-08-06] MEDS: Chlorhexidine 0.12% Oral Kit 15 ML UDC OROPHARYNG SCH ×2 (08:28→21:43)
[2018-08-06] MEDS: Insulin NovoLOG Aspart Correctional Sugar Inj SQ SCH ×4 (08:28→22:01)
[2018-08-06] MEDS: Mupirocin 2% Nasal Oint Topical Syringe EACH NARE SCH ×2 (08:29→22:01)
[2018-08-06] MEDS: Lidocaine 5% Patch T-DERMAL SCH (08:29)
[2018-08-06] MEDS: Clotrimazole 1% Cream 15 GM Tube TOPICAL SCH ×3 (08:30→17:42)
--- NOTE | 2018-08-06 15:20 | P.PNID ---
Subjective Remarks: Patient is a 63-year-old male, presented to the hospital complaining of pain and swelling on his left elbow. He stated that he fell about a week ago but did not seek any treatment for his left elbow. He presented to the ED, and he was found to have a fracture of the olecranon on the left side. Patient also since admission has complained of some abdominal pain. He has known history of significant alcohol abuse. Imaging studies of the abdomen showed hepatic steatosis, pericholecystic fluid with no ductal dilatation. Ultrasound showed pericholecystic fluid with negative Lundy sign. He had a HIDA scan which showed no activity which could most likely be due to his liver disease. Patient also had a CTA as part of evaluation for his abdominal pain. That is okay. There were 2 blood cultures done in the ED, and they are now reported as growing MRSA. Patient has had some low-grade temps. Overnight he had persistent hypotension, and he was transferred to the ICU. Patient currently is on pressors. He is afebrile. He is still complaining of abdominal pain. He states he has chronic back pain which has not changed. He denies any shortness of breath. On this admission he was also found to have 80% right carotid artery stenosis, and vascular is following the patient. Echocardiograms not showing any obvious vegetation. His WBC is mildly elevated. He has an elevated lactic acid. His platelet count is low, fibrinogen is normal. Infectious disease consultation has been requested to assist with evaluation and treatment of his bacteremia. Notes reviewed Confused, awake and answering my questions Creatinine continues to rise Culver inserted - urine looks very concentrated Has wrist restraints WBC remains elevated Afebrile Has a lot of leaking around the PEG BC negative UC with Patricia albicans States his abdomen is hurting Antibiotics: Azactam Lines: Line sites with no e.o infection Past Medical History: Tobacco and ETOH abuse Drug screen (+) cocaine (denies IVDU), admits to smoking Allergies/Adverse Reactions: Allergies No Known Allergies Allergy (Verified 07/08/18 12:30) Objective Vital Signs 08/05/18 17:00 08/05/18 20:00 08/06/18 00:00 Temperature 98.3 F 98.3 F 98.1 F Pulse Rate 80 78 82 Respiratory Rate 20 20 18 Blood Pressure 100/60 91/52 L 92/50 L Pulse Oximetry 97 96 97 08/06/18 04:00 08/06/18 07:50 08/06/18 11:32 Temperature 98.3 F 97.2 F L 96.9 F L Pulse Rate 83 84 76 Respiratory Rate 18 20 20 Blood Pressure 97/61 L 90/49 L 84/51 L Pulse Oximetry 96 98 97 Intake & Output 08/05/18 08/06/18 08/06/18 18:59 06:59 18:59 Intake Total 1120 / 1120 1720 / 1720 Output Total 450 / 450 Balance 1120 / 1120 1270 / 1270 Weight 61 kg Intake: IV 1120 / 1120 1320 / 1320 KCl Inj 40 MEQ In D5W/1/4 NS 1020 / 1020 1020 / 1020 Inj 1,000 ML @ 100 mls/hr IV. CONT .[id number] [facility] Rx#:[id number] Azactam Inj 2 GM In NS Inj 100 100 / 100 300 / 300 ML @ 200 mls/hr IV.SIG Q8H [facility] Rx#:[id number] Water Bolus Amount 400 / 400 Output: Gastric Drainage 450 / 450 Left Upper Quadrant Gastrostomy 450 / 450 Tube (PEG) Other: # Voids 4 Date of Last Bowel Movement 08/04/18 08/04/18 08/01/18 09:40 Blood - Peripheral Aerobic Blood Culture - Final No growth in 5 days 08/01/18 09:40 Blood - Peripheral Anaerobic Blood Culture - Final No growth in 5 days 08/01/18 09:45 Blood - Peripheral Aerobic Blood Culture - Final No growth in 5 days 08/01/18 09:45 Blood - Peripheral Anaerobic Blood Culture - Final No growth in 5 days 08/02/18 05:15 Catheterized Urine Urine Culture - Final Patricia albicans 07/13/18 08:55 Fluid - Pleural fluid Fungal Smear - Final No fungal elements seen 07/13/18 08:55 Fluid - Pleural fluid Fungal Culture - Preliminary No growth in 3 weeks 07/13/18 08:55 Fluid - Pleural fluid Acid Fast Bacilli Smear - Final No acid fast bacilli seen 07/13/18 08:55 Fluid - Pleural fluid Mycobacterial Culture - Preliminary No growth in 3 weeks Lab - Hematology Results 08/05/18 08/06/18 10:26 06:36 WBC 26.6 H 23.6 H RBC 2.65 L 2.74 L Hgb 9.1 L 9.5 L Hct 28.0 L 29.3 L MCV 105.7 H 106.7 H MCH 34.2 H 34.6 H MCHC 32.4 32.4 RDW 20.7 H 21.5 H Plt Count 77 L 70 L MPV 11.7 H 12.0 H Prelim Diff (Auto) Slide review pending Tree Sapper Neut % (Auto) 83.3 H 83.7 H Lymph % (Auto) 9.1 8.4 L Spink % (Auto) 6.2 6.2 Eos % (Auto) 0.9 1.1 Baso % (Auto) 0.5 0.6 Neut # (Auto) 22.1 H 19.7 H Lymph # (Auto) 2.4 2.0 Spink # (Auto) 1.7 H 1.5 H Eos # (Auto) 0.2 0.3 Baso # (Auto) 0.1 0.1 WBC Differential Manual diff final . Seg Neuts % (Manual) 65 Band Neuts % (Manual) 15 H Lymphocytes % (Manual) 14 Monocytes % (Manual) 4 Eosinophils % (Manual) 2 Abs Neuts (Manual) 21.3 H Differential Comment . Auto diff final Platelet Estimate Low L Platelet Morphology Normal Target Cells 1+ H Hematology Comments Lab - Chemistry Results 08/04/18 08/04/18 08/05/18 17:42 23:48 08:36 Sodium Potassium Chloride Carbon Dioxide Anion Gap BUN Creatinine Estimated GFR POC Glucose 97 96 148 H Random Glucose Hemoglobin A1c Calcium Phosphorus Magnesium Total Bilirubin AST ALT Alkaline Phosphatase Ammonia Total Protein Albumin TSH Free T4 08/05/18 08/05/18 08/05/18 10:26 10:26 10:26 Sodium 158 H* Potassium 4.1 Chloride 124 H Carbon Dioxide 23.8 Anion Gap 10 BUN 92 H Creatinine 3.76 H Estimated GFR 16 L POC Glucose Random Glucose 148 H Hemoglobin A1c 4.3 Calcium 8.4 L Phosphorus 4.4 Magnesium 2.7 H Total Bilirubin 20.9 H AST 88 H ALT 55 Alkaline Phosphatase 117 Ammonia Less than 10 L Total Protein 5.7 L Albumin 2.3 L TSH 1.160 Free T4 0.84 08/05/18 08/05/18 08/05/18 12:16 17:20 20:36 Sodium Potassium Chloride Carbon Dioxide Anion Gap BUN Creatinine Estimated GFR POC Glucose 144 H 148 H 102 Random Glucose Hemoglobin A1c Calcium Phosphorus Magnesium Total Bilirubin AST ALT Alkaline Phosphatase Ammonia Total Protein Albumin TSH Free T4 08/06/18 08/06/18 08/06/18 06:36 06:36 08:07 Sodium 158 H* Potassium 4.3 Chloride 124 H Carbon Dioxide 22.9 Anion Gap 11 BUN 104 H Creatinine 4.06 H Estimated GFR 15 L POC Glucose 119 H Random Glucose 112 H Hemoglobin A1c Calcium 8.4 L Phosphorus 4.4 Magnesium 2.8 H Total Bilirubin 20.5 H AST 96 H ALT 62 Alkaline Phosphatase 119 H Ammonia Less than 10 L Total Protein 5.6 L Albumin 2.1 L TSH Free T4 08/06/18 11:49 Sodium Potassium Chloride Carbon Dioxide Anion Gap BUN Creatinine Estimated GFR POC Glucose 134 H Random Glucose Hemoglobin A1c Calcium Phosphorus Magnesium Total Bilirubin AST ALT Alkaline Phosphatase Ammonia Total Protein Albumin TSH Free T4 Imaging: ITS Impressions Abdomen/Pelvis CT 07/08/18 18:02 CONCLUSION: 1. Severe fatty infiltration of the liver. 2. Apparent pericholecystic fluid. Also fairly robust enhancement of the gallbladder mucosa. Please correlate clinically for any evidence of cholecystitis. No stones or ductal dilatation demonstrated. Gallbladder Ultrasound 07/08/18 18:53 CONCLUSION: 1. Small, nonspecific pericholecystic fluid without stones, wall thickening or sonographic Lundy's sign. The fluid may be on the basis of hepatocellular disease. The ultrasound does not support acute cholecystitis. 2. Fatty infiltrated and mildly enlarged liver. Carotid Doppler Study 07/09/18 00:00 CONCLUSION: 1. Right Internal Carotid Artery: Findings indicate >70% stenosis, but less than near occlusion. 2. Left Internal Carotid Artery: Findings indicate <50% stenosis. Hepatobiliary Scan Nuclear Medicine 07/09/18 14:22 CONCLUSION: 1. No activity in intrahepatic ducts, common duct or small bowel. Considerations include include acute obstruction of the common duct and diffuse hepatocellular disease. 2. CT scan shows no dilatation of the common duct or intrahepatic ducts. Diffuse hepatocellular disease is suspected. Neck CTA 07/10/18 00:00 CONCLUSION: 1. 80% stenosis of the proximal right ICA. Left carotid and bilateral vertebral arteries are patent. 2. Emphysematous changes. Abdomen/Pelvis CTA 07/10/18 00:08 CONCLUSION: 1. 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 The SMA and MIC are patent. 2. Hepatic steatosis. 3. Emphysematous changes. Abdomen/Bladder Ultrasound 07/11/18 00:00 CONCLUSION: 1. Normal ultrasound appearance of the kidneys. 2. Other findings include hepatic steatosis and left pleural effusion. Elbow CT 07/11/18 00:00 CONCLUSION: 1. Small fracture fragment off the olecranon. 2. There is subcutaneous edema identified posterior to the elbow with soft tissue swelling. Head CT 07/13/18 00:00 CONCLUSION: 1. No acute intracranial abnormality. 2. Atrophy. . Gastrostomy Tube Placement 07/22/18 00:00 CONCLUSION: 1. Uncomplicated gastrostomy tube placement as above. Liver Ultrasound 07/29/18 00:00 CONCLUSION: 1. Mild gallbladder wall thickening. If there is clinical concern for cholecystitis, a hepatobiliary scan may be helpful to confirm cystic duct obstruction. 2. Enlarged fatty liver. 3. Some ascites along the edge of the liver and spleen. 4. Echogenic right kidney suggesting possible medical renal disease. 5. Poor visualization of the pancreas due to shadowing bowel gas. Cholangiopancreatography MRI 07/30/18 00:00 CONCLUSION: 1. No intraluminal defects in the gallbladder or common bile duct. 2. Prominent amount of ascites and large bilateral pleural effusions. Percutaneous gastrostomy in place. Elbow X-Ray 07/30/18 00:00 CONCLUSION: Good alignment and position of the bony structures. Abdomen X-Ray 08/03/18 06:00 CONCLUSION: Decreased distention. Nonobstructive pattern. Suspected left side colitis, nonspecific. Chest X-Ray 08/05/18 00:00 CONCLUSION: Improvement in right effusion and basilar airspace disease since August 01. Physical Exam: GENERAL: awake, answering my questions, has wrist restraints. No acute distress. SKIN: No rash. Warm. HEENT: The head is atraumatic. Pupils reactive to light. No icterus. Oropharynx mucosa dry. CARDIOVASCULAR: Regular rate and rhythm. RESPIRATORY: Decreased breath sounds bilateral. No rhonchi. ABDOMEN: Slightly distended, no guarding, Gtube with Patricia rash around it EXTREMITIES: No clubbing, cyanosis. Mild pedal edema. NEUROLOGICAL: Non-focal PSYCHIATRIC: Calm and cooperative today LINE: No evidence of infection Assessment and Plan - Plan Impression MRSA sepsis ? olecranon trauma as entry point for MRSA MRSA bacteremia, ? endocarditis - echo ok - S/P Rx Shock, resolved Known ETOH abuse and tobacco abuse Denies IVDU, admits to smoking cocaine ETOH liver disease Elevated LFT Thrombocytopenia Acute renal failure: sepsis, contrast, meds. Respiratory failure, extubated Pleural effusion, fluid transudative Leukocytosis. No clear etiology. Recommendation Stop Azactam Diflucan po Will ask renal to reevaluate Antifungal around PEG site Culver inserted to monitor I and O Follow CBC UA with microscopy Urine for eos
[2018-08-06] MEDS ORDERED: Sod Chloride 0.9% Inj 1,000 ML IV.SIG SCH (15:30)
[2018-08-06] MEDS: Morphine Inj 4 MG/ML Vial IV.PUSH PRN (16:33)
[2018-08-06 17:03] LABS: Amorphous Sediment,Urine Rare /hpf; Bacteria,Urine Occasional /hpf; Bilirubin,Urine Small (Negative); Clarity,Urine Hazy (Clear); Color,Urine Amber (Yellw/Straw); Glucose,Urine (UA) 50 mg/dL (Negative); Ictotest,Urine Positive (Negative); Leukocyte Esterase,Urine Small (Negative); Mucus,Urine Few /lpf (Occasional); Nitrite,Urine Negative (Negative)
--- NOTE | 2018-08-06 17:31 | P.PNNP ---
Subjective Interval history: Sitting up in bed. Not oriented in soft limb restraints. Creatinine has increased to 4.06 today. Indwelling Richter catheter placed for accurate I+O's. <Edel Lantigua - Last Filed: 08/06/18 17:20> Physical Exam Vital signs: Vital Signs 08/05/18 20:00 08/06/18 00:00 08/06/18 04:00 Temperature 98.3 F 98.1 F 98.3 F Pulse Rate 78 82 83 Respiratory Rate 20 18 18 Blood Pressure 91/52 L 92/50 L 97/61 L Pulse Oximetry 96 97 96 08/06/18 07:50 08/06/18 11:32 Temperature 97.2 F L 96.9 F L Pulse Rate 84 76 Respiratory Rate 20 20 Blood Pressure 90/49 L 84/51 L Pulse Oximetry 98 97 Intake & Output 08/05/18 08/06/18 08/06/18 18:59 06:59 18:59 Intake Total 1120 / 1120 1720 / 1720 100 / 100 Output Total 450 / 450 Balance 1120 / 1120 1270 / 1270 100 / 100 Weight 61 kg Intake: IV 1120 / 1120 1320 / 1320 100 / 100 KCl Inj 40 MEQ In D5W/1/4 NS 1020 / 1020 1020 / 1020 Inj 1,000 ML @ 100 mls/hr IV. CONT .[id number] [facility] Rx#:[id number] Azactam Inj 2 GM In NS Inj 100 100 / 100 300 / 300 100 / 100 ML @ 200 mls/hr IV.SIG Q8H [facility] Rx#:[id number] Water Bolus Amount 400 / 400 Output: Gastric Drainage 450 / 450 Left Upper Quadrant Gastrostomy 450 / 450 Tube (PEG) Other: # Voids 4 Date of Last Bowel Movement 08/04/18 08/04/18 Narrative: GENERAL: 63 yo male, chronically ill, not in acute distress at this time. SKIN: Warm and dry. Jaundiced Respiratory: Breath sounds diminished bilaterally. No use of accessory muscles. CARDIOVASCULAR: Regular rate and rhythm without murmurs, gallops, or rubs. RESPIRATORY: Breath sounds coarse sounding. GASTROINTESTINAL: Abdomen soft, Leakage at the PEG tube site. Peg hooked up to suction, green drainage. MUSCULOSKELETAL: No cyanosis, no edema. Neuro: alert, confused - Urinary Catheter Management Indwelling Urethral Catheter Cath placed during this visit: yes, but has since been removed by the nurse Reason for continuing: Decision to DC catheter Insertion date: 07/12/18 Insertion time: 07:45 Removal date: 07/19/18 Removal time: 10:45 Condom Cath placed during this visit: yes Urethral indwelling: No Reason for continuing: Not indwelling catheter Insertion date: 07/19/18 Insertion time: 10:50 <Edel Lantigua - Last Filed: 08/06/18 17:20> Vital signs: Vital Signs 08/06/18 00:00 08/06/18 04:00 08/06/18 07:50 Temperature 98.1 F 98.3 F 97.2 F L Pulse Rate 82 83 84 Respiratory Rate 18 18 20 Blood Pressure 92/50 L 97/61 L 90/49 L Pulse Oximetry 97 96 98 08/06/18 11:32 08/06/18 16:10 Temperature 96.9 F L 97.1 F L Pulse Rate 76 85 Respiratory Rate 20 18 Blood Pressure 84/51 L 108/52 L Pulse Oximetry 97 98 Intake & Output 08/06/18 08/06/18 08/07/18 06:59 18:59 06:59 Intake Total 1720 / 1720 2100 / 2100 Output Total 450 / 450 450 / 450 Balance 1270 / 1270 1650 / 1650 Weight 61 kg Intake: IV 1320 / 1320 2100 / 2100 KCl Inj 40 MEQ In D5W/1/4 NS 1020 / 1020 Inj 1,000 ML @ 100 mls/hr IV. CONT .[id number] [facility] Rx#:[id number] Azactam Inj 2 GM In NS Inj 100 300 / 300 100 / 100 ML @ 200 mls/hr IV.SIG Q8H [facility] Rx#:[id number] NS Inj 1,000 ML @ 1000 mls/hr 1000 / 1000 IV.SIG BOLUS [facility] Rx#:[id number] Sodium Chloride 23.4% Inj 38.5 1000 / 1000 MEQ KCl Inj 40 MEQ In D5W Inj 1 ,000 ML @ 100 mls/hr IV.SIG . [id number] [facility] Rx#:[id number] Water Bolus Amount 400 / 400 Output: Gastric Drainage 450 / 450 450 / 450 Left Upper Quadrant Gastrostomy 450 / 450 450 / 450 Tube (PEG) Other: # Voids 4 Date of Last Bowel Movement 08/04/18 - Urinary Catheter Management Indwelling Urethral Catheter Cath placed during this visit: no Condom Cath placed during this visit: no <Dina Rivas - Last Filed: 08/06/18 20:53> Assessment and Plan - Assessment (1) Acute kidney injury Code(s): N17.9 - Acute kidney failure, unspecified Status: Acute Plan: Acute kidney injury possibly prerenal or hepatorenal syndrome Creatinine has increased at 4.06 today has received IVF bolus and on continuous IVF's Recommend to Avoid Nephrotoxins. Maintain MAP of 65 mmhg. Maintain strict I+O / richter catheter has been placed. Follow the urine out put and BMP. Will order urine sodium, creatinine and osmolarity. Labs in AM (2) Hypernatremia Code(s): E87.0 - Hyperosmolality and hypernatremia Status: Acute Plan: Sodium level elevated at 158. Monitor sodium levels periodically. On free water but currently not tolerating. Continue IVF's. <Edel Lantigua - Last Filed: 08/06/18 17:20> - Assessment (1) Acute kidney injury Code(s): N17.9 - Acute kidney failure, unspecified Status: Acute Plan: Patient seen and examine, agree with above. Patient develop NEERU, and Hypernatremia. Continue IVF, the work up as above. (2) Hypernatremia Code(s): E87.0 - Hyperosmolality and hypernatremia Status: Acute <Dina Rivas - Last Filed: 08/06/18 20:53>
--- NOTE | 2018-08-06 19:09 | P.PNIM ---
Subjective Interval history: 63-year-old gentleman admitted with 63-year-old gentleman admitted with severe sepsis, positive for MRSA felt related to upper extremity trauma status post respiratory failure, intubation, currently extubated, now with G-tube and ileus, and decompensated cirrhosis. Patient's case discussed with history of bedside. Patient seen and examined, case discussed with sister , pt is confused but following, no distress, still complaining of back pain, and complaining of abdominal pain, no nausea, peg still connected to lis w over 450 cc output today and 450 cc out overnight, pt reports vomiting this morning, last bm 2 d ago documented, worsening creatinine today, a lot of leakage around PEG tube site Physical Exam Vital signs: Last Vital Signs Temp 97.1 F L 08/06/18 16:10 Pulse 85 08/06/18 16:10 Resp 18 08/06/18 16:10 BP 108/52 L 08/06/18 16:10 Pulse Ox 98 08/06/18 16:10 Intake & Output 08/04/18 08/05/18 08/06/18 08/07/18 06:59 06:59 06:59 06:59 Intake Total 2210 / 2210 2250 / 2250 2840 / 2840 2100 / 2100 Output Total 1050 / 1050 1600 / 1600 450 / 450 450 / 450 Balance 1160 / 1160 650 / 650 2390 / 2390 1650 / 1650 Weight 56.5 kg 56.5 kg 61 kg Ill-appearing 63-year-old white male Jaundiced, awake, alert, mild confusion but follows and some responses appropriate Heart S1-S2 regular Lungs diminished breath sounds at bases no wheezes Abdomen mild distention, PEG site rash improved, continues to have mucousy drainage from the site area Extremities no clubbing cyanosis, large dark callus over right heel Urinary Catheter Management Indwelling Urethral Catheter: Cath placed during this visit: yes, but has since been removed by the nurse Insertion date: 07/12/18 Insertion time: 07:45 Removal date: 07/19/18 Removal time: 10:45 Condom: Cath placed during this visit: yes Urethral indwelling: No Insertion date: 07/19/18 Insertion time: 10:50 Results Labs CBC & Chem 7: 08/06/18 06:36 08/06/18 06:36 Labs: Microbiology 08/01/18 09:40 Blood - Peripheral Aerobic Blood Culture - Final No growth in 5 days 08/01/18 09:40 Blood - Peripheral Anaerobic Blood Culture - Final No growth in 5 days 08/01/18 09:45 Blood - Peripheral Aerobic Blood Culture - Final No growth in 5 days 08/01/18 09:45 Blood - Peripheral Anaerobic Blood Culture - Final No growth in 5 days Procedures Procedures: PEG Assessment and Plan (1) Acute kidney injury: Code(s): N17.9 - Acute kidney failure, unspecified Status: Acute (2) Hypernatremia: Code(s): E87.0 - Hyperosmolality and hypernatremia Status: Acute Plan SEVERE SEPSIS DUE to MRSA with bacteremia- resolved, status post treatment, repeat cultures negative, now with worsening leukocytosis, restarted on aztreonam, ID following ACUTE HYPOXIC RESP FAILURE post intubation, extubation, now stable on room air ASPIRATION PNA w large R Pleural effusion s/p pigtail drainage, status post treatment, now with persistent right-sided infiltrate on chest x-ray, follow-up , patient has significant dysphagia and is recommended to continue n.p.o., continue speech therapy, follow-up chest x-ray improving infiltrate METABOLIC AND HEPATIC ENCEPHALOPATHY some improvement, persistent confusion, continue lactulose for hyperammonemia when able to tolerate, DECOMPENSATED ALCOHOLIC CIRRHOSIS, total bilirubin continues to rise, severe cholestatic jaundice, poor prognosis, resumediuretics, rifaximin, lactulose when able to tolerate p.o., currently on hold, SEVERE PROTEIN ÁNGEL MALNUTRITIONhas been n.p.o. and without tube feedings due to ileus, hold p.o. meds, clamp G-tube LIS if tolerated., will need to consider TPN if unable to tolerate enteral feeds in the next 24-48 hours, discussed risks with sister, still unable to tolerate G-tube feedings, OROPHARYNGEAL DYSPHASIA status post G-tube ACUTE ILEUS with suspected colitis per x-ray, continue empiric IV antibiotics, follow-up with GI, hold tube feeds,, will get CT scan abdomen and pelvis ACUTE RENAL FAILURE, question hepatorenal syndrome, avoid hypotension, continue fluids as tolerated,, bolus fluids today, continue to hold diuretics, hold Aldactone, agree with nephrology consult and Culver catheter L OLECRANON FRACTURE currently in immobilizer follow-up with x-rays, Orth follow-up, continue PT, OT HYPERNATREMIA with free water deficit, continue quarter normal saline continue to monitor sodium MACROCYTIC ANEMIA chronic, no evidence of bleeding LEUKOCYTOSISsuspect colitis versus aspiration pneumonia, continue antibiotics repeat cultures continue as per ID remains afebrile, continue antibiotics per ID , follow-up cultures EtOHdependence, nicotine dependence, history IV drug use, cocaine use, currently no withdrawal issues, continue cessation, continue thiamine folate. SEVERE MUSCLE WEAKNESS, critical care myopathy and deconditioning, pt, oob as tolerated Code status - DNR per sister hcs, discussed case at length with sister, she is aware of poor prognosis, she is considering palliative care hospice if patient continues to decline, but agreeable to further workup at this point DVT prophylaxis - scd, coagulopathic due to liver dz dispo - will need rehab, poor prognosis, palliative care following, hospice appropriate if continues to decline, sister agreeable. Progress Note: Quality VTE Deep Vein Thrombosis/Pulmonary Embolism Present on Admission: No
--- NOTE | 2018-08-06 19:57 | P.PNPL ---
Subjective Interval history: 63 YOWM with RF, increased liver enzymes has pulm congestion no hemoptysis No abd pain no fever Confused PEG tube to LIS Physical Exam Vital signs: Vital Signs 08/05/18 20:00 08/06/18 00:00 08/06/18 04:00 Temperature 98.3 F 98.1 F 98.3 F Pulse Rate 78 82 83 Respiratory Rate 20 18 18 Blood Pressure 91/52 L 92/50 L 97/61 L Pulse Oximetry 96 97 96 08/06/18 07:50 08/06/18 11:32 08/06/18 16:10 Temperature 97.2 F L 96.9 F L 97.1 F L Pulse Rate 84 76 85 Respiratory Rate 20 20 18 Blood Pressure 90/49 L 84/51 L 108/52 L Pulse Oximetry 98 97 98 Intake & Output 08/06/18 08/06/18 08/07/18 06:59 18:59 06:59 Intake Total 1720 / 1720 2100 / 2100 Output Total 450 / 450 450 / 450 Balance 1270 / 1270 1650 / 1650 Weight 61 kg Intake: IV 1320 / 1320 2100 / 2100 KCl Inj 40 MEQ In D5W/08/08 NS 1020 / 1020 Inj 1,000 ML @ 100 mls/hr IV. CONT .[id number] [facility] Rx#:[id number] Azactam Inj 2 GM In NS Inj 100 300 / 300 100 / 100 ML @ 200 mls/hr IV.SIG Q8H [facility] Rx#:[id number] NS Inj 1,000 ML @ 1000 mls/hr 1000 / 1000 IV.SIG BOLUS [facility] Rx#:[id number] Sodium Chloride 23.4% Inj 38.5 1000 / 1000 MEQ KCl Inj 40 MEQ In D5W Inj 1 ,000 ML @ 100 mls/hr IV.SIG . [id number] [facility] Rx#:[id number] Water Bolus Amount 400 / 400 Output: Gastric Drainage 450 / 450 450 / 450 Left Upper Quadrant Gastrostomy 450 / 450 450 / 450 Tube (PEG) Other: # Voids 4 Date of Last Bowel Movement 08/04/18 GENERAL: Elderly WM, NAD SKIN: Warm and dry. HEAD: Normocephalic. EYES: No scleral icterus. No injection or drainage. NECK: Supple, trachea midline. No JVD or lymphadenopathy. CARDIOVASCULAR: Regular rate and rhythm without murmurs, gallops, or rubs. RESPIRATORY: Breath sounds equal bilaterally. No accessory muscle use. GASTROINTESTINAL: Abdomen soft, non-tender, nondistended. MUSCULOSKELETAL: No cyanosis, or edema. BACK: Nontender without obvious deformity. No CVA tenderness. - Urinary Catheter Management Indwelling Urethral Catheter Cath placed during this visit: yes, but has since been removed by the nurse Reason for continuing: Decision to DC catheter Insertion date: 07/12/18 Insertion time: 07:45 Removal date: 07/19/18 Removal time: 10:45 Condom Cath placed during this visit: yes Urethral indwelling: No Reason for continuing: Not indwelling catheter Insertion date: 07/19/18 Insertion time: 10:50 Assessment and Plan - Plan IMPRESSION: 1. Methicillin-resistant Staphylococcus aureus. 2. Urinary tract infection. 3. Sepsis. 4. Hemoptysis. 5. Respiratory distress status post extubation. 6. Increased liver enzymes. 7. Thrombocytopenia. 8. The patient is homeless. 9. Nicotine use. 10. Alcohol use. PLAN: monitor Lytes monitor Plt count Protonix 40 mg IV daily Supplement 02 to keep sat >90% Cont Abx PEG tube to LIS
--- NOTE | 2018-08-06 20:16 | CT ---
EXAM DATE: 08/06/2018 8:07 PM EST AGE/SEX: 63 years / Male INDICATIONS: Abdomen pain CLINICAL DATA: This is the patient's initial encounter. Patient reports that signs and symptoms have been present for 1 day and indicates a pain score of 5/10. MEDICAL/SURGICAL HISTORY: . MRSA None. RADIATION DOSE: 14.14 CTDI (mGy) COMPARISON: None. TECHNIQUE: Multiple contiguous axial images were obtained through the abdomen. Images were obtained using multiple row detector helical technique. Using automated exposure control and adjustment of the mA and/or kV according to patient size, radiation dose was kept as low as reasonably achievable to o btain optimal diagnostic quality images. DICOM format image data is available electronically for rev iew and comparison. FINDINGS: Lower Lungs: Coronary artery calcifications are present. There are small to moderate bilateral pleura l effusions. Liver: The liver has a homogeneous density without space-occupying lesion. There is no dilation of th e biliary tree. The gallbladder appears grossly unremarkable. Spleen: Homogeneous density without enlargement. Pancreas: Unremarkable without mass or calcification. Kidneys: Normal in size and shape. No evidence of mass or hydronephrosis. Adrenal Glands: Unremarkable. Aorta: The aorta and proximal iliac vessels are grossly unremarkable without aneurysmal dilation. Bowel/Mesentery: No oral contrast was given limiting the sensitivity of the examination. There is a gastrostomy tube present with the balloon in the mid stomach. There is a small to moderate amount of ascitic fluid present greatest in the pelvis. There are several tiny gas bubbles noted in the anterio r upper mesentery. This is best seen on axial images numbers 38 and 36. There is no definite evidence of obstruction. Abdominal Wall: Intact. Retroperitoneum: No evidence of adenopathy in the retrocrural, para-aortic, or deep pelvic regions. Bladder: A Culver catheter is present in the bladder which is mostly decompressed. Reproductive Organs: No abnormal masses or calcifications seen. Inguinal: The inguinal region is unremarkable without evidence of adenopathy. Bony Structures: Unremarkable. CONCLUSION: 1. Small amount of free air are noted in the upper abdomen. The finding is nonspecific and could be secondary to recent instrumentation or placement of the gastrostomy tube and needs to be correlated. Free air from a ruptured viscus could have a similar appearance. 2. Small to moderate amount of ascitic fluid greatest in the pelvis. 3. Nonobstructive bowel gas pattern. The study was performed without intravenous or oral contrast li miting the sensitivity. 4. Small to moderate bilateral pleural effusions. Electronically signed by: James Panda MD Board Certified Radiologist 08/06/2018 8:15 PM EST
[2018-08-07] MEDS: Oral Hygiene Kit OROPHARYNG SCH ×4 (03:56→23:45)
[2018-08-07] MEDS: SODIUM CHLORIDE IV.SIG SCH ×9 (05:52→23:45)
[2018-08-07] MEDS: [UNRECOGNIZED DRUG - OTHER] IV.SIG SCH ×9 (05:52→23:45)
[2018-08-07] MEDS: POTASSIUM CHLORIDE IV.SIG SCH ×9 (05:52→23:45)
[2018-08-07] MEDS: DEXTROSE 5% IV.SIG SCH ×9 (05:52→23:45)
[2018-08-07] MEDS: Insulin NovoLOG Aspart Correctional Sugar Inj SQ SCH ×4 (08:40→21:00)
[2018-08-07] MEDS: Lidocaine 5% Patch T-DERMAL SCH (08:41)
[2018-08-07] MEDS: Pantoprazole Inj 40 MG Vial IV.PUSH SCH (08:41)
[2018-08-07] MEDS: Chlorhexidine 0.12% Oral Kit 15 ML UDC OROPHARYNG SCH ×2 (08:42→21:00)
[2018-08-07] MEDS: rifAXIMin 550 MG Tablet PO SCH ×2 (08:42→21:00)
[2018-08-07] MEDS: Fluconazole 100 MG Tablet PO SCH (08:42)
[2018-08-07] MEDS: Clotrimazole 1% Cream 15 GM Tube TOPICAL SCH ×3 (08:43→17:03)
[2018-08-07] MEDS: Mupirocin 2% Nasal Oint Topical Syringe EACH NARE SCH ×2 (08:43→21:00)
[2018-08-07 10:34] LABS: Baso # (Auto) 0.1 th/mm3 (0.0-0.2); Baso % (Auto) 0.5 % (0.0-2.0); Eos # (Auto) 0.2 th/mm3 (0.0-0.4); Eos % (Auto) 0.9 % (0.0-4.0); Hematocrit 29.1 % (39.0-51.0); Hemoglobin 9.6 gm/dL (13.0-17.0); Lymph # (Auto) 2.5 th/mm3 (1.0-4.8); Lymph % (Auto) 10.4 % (9.0-44.0); Mean Corpuscular Hemoglobin 35.2 pg (27.0-34.0); Mean Corpuscular Volume 106.7 fL (80.0-100.0); Mean Platelet Volume 11.9 fL (7.0-11.0); Mono # (Auto) 1.6 th/mm3 (0.0-0.9); Mono % (Auto) 6.7 % (0.0-8.0); Neut # (Auto) 19.7 th/mm3 (1.8-7.7); Neut % (Auto) 81.5 % (16.0-70.0); Platelet Count 56 th/mm3 (150-450); Red Blood Count 2.73 mil/mm3 (4.50-5.90); Red Cell Distribution Width 21.8 % (11.6-17.2); White Blood Count 24.2 th/mm3 (4.0-11.0)
[2018-08-07 10:59] LABS: Albumin 1.9 g/dL (3.4-5.0); Calcium 8.3 mg/dL (8.5-10.1); Carbon Dioxide 20.5 meq/L (21.0-32.0); Phosphorus 4.4 mg/dL (2.5-4.9); Potassium 5.2 meq/L (3.5-5.1)
[2018-08-07 11:06] LABS: Lymphocytes 3 % (9-44); Monocytes 2 % (0-8)
[2018-08-07 11:07] LABS: Target Cells 1+
[2018-08-07 11:08] LABS: Toxic Granulation 1+
--- NOTE | 2018-08-07 13:01 | P.PNNP ---
Subjective Interval history: Alert and oriented, remains in soft limb restraints. Denies any shortness of breath, nausea or vomiting. <Edel Lantigua - Last Filed: 08/07/18 12:51> Physical Exam Vital signs: Vital Signs 08/06/18 16:10 08/06/18 21:09 08/07/18 01:23 Temperature 97.1 F L 97.6 F 97.6 F Pulse Rate 85 80 76 Respiratory Rate 18 18 18 Blood Pressure 108/52 L 110/55 L 92/52 L Pulse Oximetry 98 98 96 08/07/18 04:54 08/07/18 07:20 08/07/18 11:54 Temperature 97.7 F 97.5 F L 97.4 F L Pulse Rate 78 72 69 Respiratory Rate 18 18 18 Blood Pressure 97/46 L 85/52 L 112/56 L Pulse Oximetry 97 96 96 Intake & Output 08/06/18 08/07/18 08/07/18 18:59 06:59 18:59 Intake Total 2100 / 2100 1029.625 / 1029.625 Output Total 450 / 450 Balance 1650 / 1650 1029.625 / 1029.625 Weight 56.4 kg Intake: IV 2099 / 2100 1029.625 / 1029.625 Azactam Inj 2 GM In NS Inj 100 100 / 100 ML @ 200 mls/hr IV.SIG Q8H [facility] Rx#:[id number] NS Inj 1,000 ML @ 1000 mls/hr 1000 / 1000 IV.SIG BOLUS [facility] Rx#:[id number] Sodium Chloride 23.4% Inj 38.5 1000 / 1000 1029.625 / 1029.625 MEQ KCl Inj 40 MEQ In D5W Inj 1 ,000 ML @ 100 mls/hr IV.SIG . [id number] [facility] Rx#:[id number] Output: Gastric Drainage 450 / 450 Left Upper Quadrant Gastrostomy 450 / 450 Tube (PEG) Other: # Incontinent Voids 2 Date of Last Bowel Movement 08/07/18 # Incontinent Bowel Movements 2 Narrative: GENERAL: 63 yo male, chronically ill, not in acute distress at this time. SKIN: Warm and dry. Jaundiced Respiratory: Breath sounds diminished bilaterally. No use of accessory muscles. CARDIOVASCULAR: Regular rate and rhythm without murmurs, gallops, or rubs. RESPIRATORY: Breath sounds coarse sounding. GASTROINTESTINAL: Abdomen soft, Leakage at the PEG tube site. Peg hooked up to suction, green drainage. MUSCULOSKELETAL: No cyanosis, no edema. Neuro: alert and oriented - Urinary Catheter Management Indwelling Urethral Catheter Cath placed during this visit: yes, but has since been removed by the nurse Reason for continuing: Decision to DC catheter Insertion date: 07/12/18 Insertion time: 07:45 Removal date: 07/19/18 Removal time: 10:45 Condom Cath placed during this visit: yes Urethral indwelling: No Reason for continuing: Acute urinary retention Insertion date: 07/19/18 Insertion time: 10:50 <Edel Lantigua - Last Filed: 08/07/18 12:51> Vital signs: Vital Signs 08/06/18 21:09 08/07/18 01:23 08/07/18 04:54 Temperature 97.6 F 97.6 F 97.7 F Pulse Rate 80 76 78 Respiratory Rate 18 18 18 Blood Pressure 110/55 L 92/52 L 97/46 L Pulse Oximetry 98 96 97 08/07/18 07:20 08/07/18 11:54 08/07/18 15:57 Temperature 97.5 F L 97.4 F L 97.6 F Pulse Rate 72 69 75 Respiratory Rate 18 18 18 Blood Pressure 85/52 L 112/56 L 85/49 L Pulse Oximetry 96 96 97 Intake & Output 08/07/18 08/07/18 08/08/18 06:59 18:59 06:59 Intake Total 1029.625 / 1471.811 7332.625 / 1929.625 Output Total 700 / 700 Balance 1029.625 / 0455.440 6972.625 / 1229.625 Weight 56.4 kg Intake: IV 1029.625 / 5897.036 8935.625 / 1129.625 Diflucan 200 mg Premix Bag 100 100 / 100 ML @ 100 mls/hr IV.SIG Q24H [facility] Rx#:[id number] Sodium Chloride 23.4% Inj 38.5 1029.625 / 7754.694 2670.625 / 1029.625 MEQ KCl Inj 40 MEQ In D5W Inj 1 ,000 ML @ 150 mls/hr IV.SIG . [id number] [facility] Rx#:[id number] Water Bolus Amount 800 / 800 Output: Urine Amount (Catheter) 300 / 300 Indwelling Urethral Catheter 300 / 300 Gastric Drainage 400 / 400 Left Upper Quadrant Gastrostomy 400 / 400 Tube (PEG) Other: # Incontinent Voids 2 Date of Last Bowel Movement 08/07/18 # Incontinent Bowel Movements 2 3 - Urinary Catheter Management Indwelling Urethral Catheter Cath placed during this visit: no Condom Cath placed during this visit: no <Dina Rivas - Last Filed: 08/07/18 21:02> Assessment and Plan - Assessment (1) Acute kidney injury Code(s): N17.9 - Acute kidney failure, unspecified Status: Acute Plan: Acute kidney injury possibly prerenal or hepatorenal syndrome Creatinine has increased at 4.53 from 4.06 today, has indwelling Culver catheter but output has not been documented. Discussed with nursing. Recommend to Avoid Nephrotoxins. Maintain strict I+O. Follow the urine out put and BMP. With increase in creatinine will increase IVF's. Patient with increased losses at PEG site. labs in AM (2) Hypernatremia Code(s): E87.0 - Hyperosmolality and hypernatremia Status: Acute Plan: Sodium level has improved at 154 . Monitor sodium levels periodically. On free water but currently not tolerating. Continue IVF's. <Edel Lantigua - Last Filed: 08/07/18 12:51> - Assessment (1) Acute kidney injury Code(s): N17.9 - Acute kidney failure, unspecified Status: Acute Plan: Patient seen and examined, agree with above. Creatinine continue to increase, Has been loosing fluid via GT suction. Continue IVF and antibiotics. May need Dialysis,D/W the patient. (2) Hypernatremia Code(s): E87.0 - Hyperosmolality and hypernatremia Status: Acute <Dina Rivas - Last Filed: 08/07/18 21:02>
--- NOTE | 2018-08-07 13:56 | P.PNID ---
Subjective Remarks: Patient is a 63-year-old male, presented to the hospital complaining of pain and swelling on his left elbow. He stated that he fell about a week ago but did not seek any treatment for his left elbow. He presented to the ED, and he was found to have a fracture of the olecranon on the left side. Patient also since admission has complained of some abdominal pain. He has known history of significant alcohol abuse. Imaging studies of the abdomen showed hepatic steatosis, pericholecystic fluid with no ductal dilatation. Ultrasound showed pericholecystic fluid with negative Lundy sign. He had a HIDA scan which showed no activity which could most likely be due to his liver disease. Patient also had a CTA as part of evaluation for his abdominal pain. That is okay. There were 2 blood cultures done in the ED, and they are now reported as growing MRSA. Patient has had some low-grade temps. Overnight he had persistent hypotension, and he was transferred to the ICU. Patient currently is on pressors. He is afebrile. He is still complaining of abdominal pain. He states he has chronic back pain which has not changed. He denies any shortness of breath. On this admission he was also found to have 80% right carotid artery stenosis, and vascular is following the patient. Echocardiograms not showing any obvious vegetation. His WBC is mildly elevated. He has an elevated lactic acid. His platelet count is low, fibrinogen is normal. Infectious disease consultation has been requested to assist with evaluation and treatment of his bacteremia. Notes reviewed Confused, awake and answering my questions Has restraints States abdomen still hurting Gtube to suction Culver in place - very dark urine, output not being charted accurately Creatinine continues to rise WBC remains elevated OFF Abx Afebrile Less leaking from G tube BC negative UC with Patricia albicans Antibiotics: Diflucan Lines: Line sites with no e.o infection Past Medical History: Tobacco and ETOH abuse Drug screen (+) cocaine (denies IVDU), admits to smoking Allergies/Adverse Reactions: Allergies No Known Allergies Allergy (Verified 07/08/18 12:30) Objective Vital Signs 08/06/18 16:10 08/06/18 21:09 08/07/18 01:23 Temperature 97.1 F L 97.6 F 97.6 F Pulse Rate 85 80 76 Respiratory Rate 18 18 18 Blood Pressure 108/52 L 110/55 L 92/52 L Pulse Oximetry 98 98 96 08/07/18 04:54 08/07/18 07:20 08/07/18 11:54 Temperature 97.7 F 97.5 F L 97.4 F L Pulse Rate 78 72 69 Respiratory Rate 18 18 18 Blood Pressure 97/46 L 85/52 L 112/56 L Pulse Oximetry 97 96 96 Intake & Output 08/06/18 08/07/18 08/07/18 18:59 06:59 18:59 Intake Total 2099 / 2099 1029.625 / 1029.625 Output Total 450 / 450 Balance 1650 / 1650 1029.625 / 1029.625 Weight 56.4 kg Intake: IV 2099 1029.625 / 1029.625 Azactam Inj 2 GM In NS Inj 100 100 / 100 ML @ 200 mls/hr IV.SIG Q8H [facility] Rx#:[id number] NS Inj 1,000 ML @ 1000 mls/hr 1000 / 1000 IV.SIG BOLUS [facility] Rx#:[id number] Sodium Chloride 23.4% Inj 38.5 1000 / 1000 1029.625 / 1029.625 MEQ KCl Inj 40 MEQ In D5W Inj 1 ,000 ML @ 100 mls/hr IV.SIG . [id number] [facility] Rx#:[id number] Output: Gastric Drainage 450 / 450 Left Upper Quadrant Gastrostomy 450 / 450 Tube (PEG) Other: # Incontinent Voids 2 Date of Last Bowel Movement 08/07/18 # Incontinent Bowel Movements 2 08/06/18 16:00 Catheterized Urine Urine Culture - Pending 08/01/18 09:40 Blood - Peripheral Aerobic Blood Culture - Final No growth in 5 days 08/01/18 09:40 Blood - Peripheral Anaerobic Blood Culture - Final No growth in 5 days 08/01/18 09:45 Blood - Peripheral Aerobic Blood Culture - Final No growth in 5 days 08/01/18 09:45 Blood - Peripheral Anaerobic Blood Culture - Final No growth in 5 days 08/02/18 05:15 Catheterized Urine Urine Culture - Final Patricia albicans Lab - Hematology Results 08/06/18 08/07/18 06:36 09:33 WBC 23.6 H 24.2 H RBC 2.74 L 2.73 L Hgb 9.5 L 9.6 L Hct 29.3 L 29.1 L MCV 106.7 H 106.7 H MCH 34.6 H 35.2 H MCHC 32.4 33.0 RDW 21.5 H 21.8 H Plt Count 70 L 56 L MPV 12.0 H 11.9 H Prelim Diff (Auto) [employer] Administrator Slide review pending Neut % (Auto) 83.7 H 81.5 H Lymph % (Auto) 8.4 L 10.4 Miller % (Auto) 6.2 6.7 Eos % (Auto) 1.1 0.9 Baso % (Auto) 0.6 0.5 Neut # (Auto) 19.7 H 19.7 H Lymph # (Auto) 2.0 2.5 Miller # (Auto) 1.5 H 1.6 H Eos # (Auto) 0.3 0.2 Baso # (Auto) 0.1 0.1 WBC Differential . Manual diff final Seg Neuts % (Manual) 73 H Band Neuts % (Manual) 22 H Lymphocytes % (Manual) 3 L Monocytes % (Manual) 2 Abs Neuts (Manual) 23.0 H Differential Comment Auto diff final . Toxic Granulation 1+ H Platelet Estimate Low L Platelet Morphology Enlarged H Target Cells 1+ H Lab - Chemistry Results 08/05/18 08/05/18 08/06/18 17:20 20:36 06:36 Sodium 158 H* Potassium 4.3 Chloride 124 H Carbon Dioxide 22.9 Anion Gap 11 BUN 104 H Creatinine 4.06 H Estimated GFR 15 L POC Glucose 148 H 102 Random Glucose 112 H Calcium 8.4 L Phosphorus 4.4 Magnesium 2.8 H Total Bilirubin 20.5 H AST 96 H ALT 62 Alkaline Phosphatase 119 H Ammonia Total Protein 5.6 L Albumin 2.1 L 08/06/18 08/06/18 08/06/18 06:36 08:07 11:49 Sodium Potassium Chloride Carbon Dioxide Anion Gap BUN Creatinine Estimated GFR POC Glucose 119 H 134 H Random Glucose Calcium Phosphorus Magnesium Total Bilirubin AST ALT Alkaline Phosphatase Ammonia Less than 10 L Total Protein Albumin 08/06/18 08/06/18 08/07/18 17:02 21:55 07:18 Sodium Potassium Chloride Carbon Dioxide Anion Gap BUN Creatinine Estimated GFR POC Glucose 99 122 H 130 H Random Glucose Calcium Phosphorus Magnesium Total Bilirubin AST ALT Alkaline Phosphatase Ammonia Total Protein Albumin 08/07/18 08/07/18 09:33 11:54 Sodium 154 H Potassium 5.2 H D Chloride 124 H Carbon Dioxide 20.5 L Anion Gap 10 BUN 104 H Creatinine 4.53 H Estimated GFR 13 L POC Glucose 129 H Random Glucose 123 H Calcium 8.3 L Phosphorus 4.4 Magnesium Total Bilirubin AST ALT Alkaline Phosphatase Ammonia Total Protein Albumin 1.9 L Imaging: ITS Impressions Gallbladder Ultrasound 07/08/18 18:53 CONCLUSION: 1. Small, nonspecific pericholecystic fluid without stones, wall thickening or sonographic Lundy's sign. The fluid may be on the basis of hepatocellular disease. The ultrasound does not support acute cholecystitis. 2. Fatty infiltrated and mildly enlarged liver. Carotid Doppler Study 07/09/18 00:00 CONCLUSION: 1. Right Internal Carotid Artery: Findings indicate >70% stenosis, but less than near occlusion. 2. Left Internal Carotid Artery: Findings indicate <50% stenosis. Hepatobiliary Scan Nuclear Medicine 07/09/18 14:22 CONCLUSION: 1. No activity in intrahepatic ducts, common duct or small bowel. Considerations include include acute obstruction of the common duct and diffuse hepatocellular disease. 2. CT scan shows no dilatation of the common duct or intrahepatic ducts. Diffuse hepatocellular disease is suspected. Neck CTA 07/10/18 00:00 CONCLUSION: 1. 80% stenosis of the proximal right ICA. Left carotid and bilateral vertebral arteries are patent. 2. Emphysematous changes. Abdomen/Pelvis CTA 07/10/18 00:08 CONCLUSION: 1. 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 The SMA and MIC are patent. 2. Hepatic steatosis. 3. Emphysematous changes. Abdomen/Bladder Ultrasound 07/11/18 00:00 CONCLUSION: 1. Normal ultrasound appearance of the kidneys. 2. Other findings include hepatic steatosis and left pleural effusion. Elbow CT 07/11/18 00:00 CONCLUSION: 1. Small fracture fragment off the olecranon. 2. There is subcutaneous edema identified posterior to the elbow with soft tissue swelling. Head CT 07/13/18 00:00 CONCLUSION: 1. No acute intracranial abnormality. 2. Atrophy. . Gastrostomy Tube Placement 07/22/18 00:00 CONCLUSION: 1. Uncomplicated gastrostomy tube placement as above. Liver Ultrasound 07/29/18 00:00 CONCLUSION: 1. Mild gallbladder wall thickening. If there is clinical concern for cholecystitis, a hepatobiliary scan may be helpful to confirm cystic duct obstruction. 2. Enlarged fatty liver. 3. Some ascites along the edge of the liver and spleen. 4. Echogenic right kidney suggesting possible medical renal disease. 5. Poor visualization of the pancreas due to shadowing bowel gas. Cholangiopancreatography MRI 07/30/18 00:00 CONCLUSION: 1. No intraluminal defects in the gallbladder or common bile duct. 2. Prominent amount of ascites and large bilateral pleural effusions. Percutaneous gastrostomy in place. Elbow X-Ray 07/30/18 00:00 CONCLUSION: Good alignment and position of the bony structures. Abdomen X-Ray 08/03/18 06:00 CONCLUSION: Decreased distention. Nonobstructive pattern. Suspected left side colitis, nonspecific. Chest X-Ray 08/05/18 00:00 CONCLUSION: Improvement in right effusion and basilar airspace disease since August 01. Abdomen/Pelvis CT 08/06/18 00:00 CONCLUSION: 1. Small amount of free air are noted in the upper abdomen. The finding is nonspecific and could be secondary to recent instrumentation or placement of the gastrostomy tube and needs to be correlated. Free air from a ruptured viscus could have a similar appearance. 2. Small to moderate amount of ascitic fluid greatest in the pelvis. 3. Nonobstructive bowel gas pattern. The study was performed without intravenous or oral contrast limiting the sensitivity. 4. Small to moderate bilateral pleural effusions. Physical Exam: GENERAL: awake, answering my questions, has wrist restraints. No acute distress. SKIN: No rash. Warm. HEENT: The head is atraumatic. Pupils reactive to light. No icterus. Oropharynx mucosa dry. CARDIOVASCULAR: Regular rate and rhythm. RESPIRATORY: Decreased breath sounds bilateral. No rhonchi. ABDOMEN: Slightly distended, no guarding, Gtube with Patricia rash around it - improving NEUROLOGICAL: Non-focal PSYCHIATRIC: Calm and cooperative today LINE: No evidence of infection Assessment and Plan - Plan Impression MRSA sepsis ? olecranon trauma as entry point for MRSA MRSA bacteremia, ? endocarditis - echo ok - S/P Rx Shock, resolved Known ETOH abuse and tobacco abuse Denies IVDU, admits to smoking cocaine ETOH liver disease Elevated LFT Thrombocytopenia Acute renal failure: sepsis, contrast, meds. Respiratory failure, extubated Pleural effusion, fluid transudative Leukocytosis. No clear etiology. Recommendation Diflucan change to IV Antifungal around PEG site Follow CBC UA with microscopy Urine for eos - negative Follow creatinine
--- NOTE | 2018-08-07 14:41 | P.PNPAL ---
Reason for Visit Reason for visit: a. To assist with evaluation and management of symptoms including: Agitation; encephalopathy b. To assist medical decision maker(s) with: better understanding of current medical conditions; weighing benefits/burdens of medical treatment options; making medical treatment decisions. . Subjective Subjective/Interval History: Mr. Sharma is a 63 y/o male with a long history of homelessness; EtOH abuse; and tobacco abuse who presented to the emergency department at [facility] on 07/08/18 primarily complaining of nausea, chest pain, and a near syncopal episode. He also reported that he had fallen out of bed approximately a week earlier and had struck his left elbow and was concerned it might be broken. Per the emergency department clinicians note, the patient was a poor historian. On 07/08, his bilirubin was 3.4. On admission 07/08 his MELD score was 18, and currently it has risen to 30 equating to a 30% 30-day mortality and a 58% 90- day mortality. Patient has a long history of alcoholism showing admissions for alcohol intoxication as far back as 2010. Liver enzyme elevation started to be noted in 2017. His body is no longer processing tube feeding and required to have the PEG tube placed to suction drainage. GI states he may now need a decompressive colonoscopy. This appears to be end-stage liver disease with more progressive complications. My visit today patient is confused, remains in bilateral soft wrist restraints. He is extremely jaundiced. Intermittently dozes off during conversation. Recent labs show WBCs 24.2, hemoglobin 9.6, hematocrit 29.1, platelets 56 bilirubin remains elevated at 20.5, sodium 154, BUN/CT 4.06/104, GFR 15, protein 5.6, albumin 2.1. He is currently still awaiting funding for long-term placement. However, my opinion, patient would likely benefit more from hospice consultation. He is likely to return to the hospital from long-term care facility if he is discharged due to ongoing clinical decline. He likely has days to weeks to live. He has continued to decline despite ongoing treatments, creatinine is continued to rise, he is not tolerating tube feeds, and has had his PEG tube to low intermittent suction for several days now, is now having some pulmonary congestion, PEG tube site is extremely tender and reportedly draining site. Sodium is steadily increased over the past several days, he is unable to get free water due to malabsorption of his gut. . Family/Friend Interactions: Spoke with Sister Jovita. Provided update on patient's ongoing decline. Explored possibility of patient going to hospice. She does state she has had been talking with them for the past few days. We discussed poor prognosis and life expectancy of days to weeks given and ability to receive any type of nutrition. She asks if there is any possibility for recovery, I advised is very unlikely. She was hopeful that he will be able to return to a residential , how feel that he would live long enough to discharge to retirement facility. She states her sister who is co-proxy is in the hospital having heart surgery and will be unavailable. For several days. Advised I would reach out to hospice and update them. Advance Directives Documented care wishes:: No written documentation of healtchare wishes/preferences . Objective Vital Signs: Vital Signs 08/06/18 16:10 08/06/18 21:09 08/07/18 01:23 Temperature 97.1 F L 97.6 F 97.6 F Pulse Rate 85 80 76 Respiratory Rate 18 18 18 Blood Pressure 108/52 L 110/55 L 92/52 L Pulse Oximetry 98 98 96 08/07/18 04:54 08/07/18 07:20 08/07/18 11:54 Temperature 97.7 F 97.5 F L 97.4 F L Pulse Rate 78 72 69 Respiratory Rate 18 18 18 Blood Pressure 97/46 L 85/52 L 112/56 L Pulse Oximetry 97 96 96 Intake & Output 08/06/18 08/07/18 08/07/18 18:59 06:59 18:59 Intake Total 2099 1029.625 / 1029.625 Output Total 450 / 450 Balance 1650 / 1650 1029.625 / 1029.625 Weight 56.4 kg Intake: IV 2099 1029.625 / 1029.625 Azactam Inj 2 GM In NS Inj 100 100 / 100 ML @ 200 mls/hr IV.SIG Q8H [facility] Rx#:[id number] NS Inj 1,000 ML @ 1000 mls/hr 1000 / 1000 IV.SIG BOLUS [facility] Rx#:[id number] Sodium Chloride 23.4% Inj 38.5 1000 / 1000 1029.625 / 1029.625 MEQ KCl Inj 40 MEQ In D5W Inj 1 ,000 ML @ 100 mls/hr IV.SIG . [id number] [facility] Rx#:[id number] Output: Gastric Drainage 450 / 450 Left Upper Quadrant Gastrostomy 450 / 450 Tube (PEG) Other: # Incontinent Voids 2 Date of Last Bowel Movement 08/07/18 # Incontinent Bowel Movements 2 Physical Exam: CONSTITUTIONAL/GENERAL: Adequately nourished male, jaundiced, restrained, dozes off during exam. TUBES/LINES/DRAINS: Peripheral IV; nasal cannula 02; condom catheter; SICDs. PEG tube to suction SKIN: Jaundiced. NECK: Trachea midline. Supple, nontender. No palpable thyroid enlargement or nodularity. CARDIOVASCULAR: Regular rate and rhythm without murmurs, gallops, or rubs. No JVD. Peripheral pulses symmetric. RESPIRATORY/CHEST: Symmetric, unlabored respirations. Scattered faint bilateral ronchi. Good amount of upper airway congestion. breath sounds equal bilaterally. No wheezing. GASTROINTESTINAL: Abdomen distended, still mildly compressible, PEG tube to wall suction draining good amount of orange colored drainage. Abdomen extremely tender to light palpation.. GENITOURINARY: Without palpable bladder distension. MUSCULOSKELETAL: Moving all extremities, not to command NEUROLOGICAL: Alert to lethargic. Answer some simple questions, but dozes off frequently. Moves all extremities. Unable to follow commands. PSYCHIATRIC: Calm and quiet . Diagnostic Tests Laboratory: Laboratory Results - last 72 hr 08/04/18 08/04/18 08/05/18 17:42 23:48 08:36 WBC RBC Hgb Hct MCV MCH MCHC RDW Plt Count MPV Prelim Diff (Auto) Neut % (Auto) Lymph % (Auto) [place] % (Auto) Eos % (Auto) Baso % (Auto) Neut # (Auto) Lymph # (Auto) [place] # (Auto) Eos # (Auto) Baso # (Auto) WBC Differential Seg Neuts % (Manual) Band Neuts % (Manual) Lymphocytes % (Manual) Monocytes % (Manual) Eosinophils % (Manual) Abs Neuts (Manual) Differential Comment Toxic Granulation Platelet Estimate Platelet Morphology Target Cells Hematology Comments Sodium Potassium Chloride Carbon Dioxide Anion Gap BUN Creatinine Estimated GFR POC Glucose 97 96 148 H Random Glucose Hemoglobin A1c Calcium Phosphorus Magnesium Total Bilirubin AST ALT Alkaline Phosphatase Ammonia Total Protein Albumin TSH Free T4 Urine Color Urine Clarity Urine pH Ur Specific [place] Urine Protein Urine Glucose (UA) Urine Ketones Urine Occult Blood Urine Nitrate Urine Bilirubin Urine Ictotest Urine Urobilinogen Ur Leukocyte Esterase Urine RBC Urine WBC Amorphous Sediment Urine Bacteria Granular Casts Urine Mucus Micro UA Comment Ur Microscopic Review Urine Eosinophils 08/05/18 08/05/18 08/05/18 10:26 10:26 10:26 WBC 26.6 H RBC 2.65 L Hgb 9.1 L Hct 28.0 L MCV 105.7 H MCH 34.2 H MCHC 32.4 RDW 20.7 H Plt Count 77 L MPV 11.7 H Prelim Diff (Auto) Slide review pending Neut % (Auto) 83.3 H Lymph % (Auto) 9.1 [place] % (Auto) 6.2 Eos % (Auto) 0.9 Baso % (Auto) 0.5 Neut # (Auto) 22.1 H Lymph # (Auto) 2.4 [place] # (Auto) 1.7 H Eos # (Auto) 0.2 Baso # (Auto) 0.1 WBC Differential Manual diff final Seg Neuts % (Manual) 65 Band Neuts % (Manual) 15 H Lymphocytes % (Manual) 14 Monocytes % (Manual) 4 Eosinophils % (Manual) 2 Abs Neuts (Manual) 21.3 H Differential Comment . Toxic Granulation Platelet Estimate Low L Platelet Morphology Normal Target Cells 1+ H Hematology Comments Sodium 158 H* Potassium 4.1 Chloride 124 H Carbon Dioxide 23.8 Anion Gap 10 BUN 92 H Creatinine 3.76 H Estimated GFR 16 L POC Glucose Random Glucose 148 H Hemoglobin A1c 4.3 Calcium 8.4 L Phosphorus 4.4 Magnesium 2.7 H Total Bilirubin 20.9 H AST 88 H ALT 55 Alkaline Phosphatase 117 Ammonia Total Protein 5.7 L Albumin 2.3 L TSH 1.160 Free T4 0.84 Urine Color Urine Clarity Urine pH Ur Specific [place] Urine Protein Urine Glucose (UA) Urine Ketones Urine Occult Blood Urine Nitrate Urine Bilirubin Urine Ictotest Urine Urobilinogen Ur Leukocyte Esterase Urine RBC Urine WBC Amorphous Sediment Urine Bacteria Granular Casts Urine Mucus Micro UA Comment Ur Microscopic Review Urine Eosinophils 08/05/18 08/05/18 08/05/18 10:26 12:16 17:20 WBC RBC Hgb Hct MCV MCH MCHC RDW Plt Count MPV Prelim Diff (Auto) Neut % (Auto) Lymph % (Auto) [place] % (Auto) Eos % (Auto) Baso % (Auto) Neut # (Auto) Lymph # (Auto) [place] # (Auto) Eos # (Auto) Baso # (Auto) WBC Differential Seg Neuts % (Manual) Band Neuts % (Manual) Lymphocytes % (Manual) Monocytes % (Manual) Eosinophils % (Manual) Abs Neuts (Manual) Differential Comment Toxic Granulation Platelet Estimate Platelet Morphology Target Cells Hematology Comments Sodium Potassium Chloride Carbon Dioxide Anion Gap BUN Creatinine Estimated GFR POC Glucose 144 H 148 H Random Glucose Hemoglobin A1c Calcium Phosphorus Magnesium Total Bilirubin AST ALT Alkaline Phosphatase Ammonia Less than 10 L Total Protein Albumin TSH Free T4 Urine Color Urine Clarity Urine pH Ur Specific [place] Urine Protein Urine Glucose (UA) Urine Ketones Urine Occult Blood Urine Nitrate Urine Bilirubin Urine Ictotest Urine Urobilinogen Ur Leukocyte Esterase Urine RBC Urine WBC Amorphous Sediment Urine Bacteria Granular Casts Urine Mucus Micro UA Comment Ur Microscopic Review Urine Eosinophils 08/05/18 08/06/18 08/06/18 20:36 06:36 06:36 WBC 23.6 H RBC 2.74 L Hgb 9.5 L Hct 29.3 L MCV 106.7 H MCH 34.6 H MCHC 32.4 RDW 21.5 H Plt Count 70 L MPV 12.0 H Prelim Diff (Auto) Yacht Hand Neut % (Auto) 83.7 H Lymph % (Auto) 8.4 L [place] % (Auto) 6.2 Eos % (Auto) 1.1 Baso % (Auto) 0.6 Neut # (Auto) 19.7 H Lymph # (Auto) 2.0 [place] # (Auto) 1.5 H Eos # (Auto) 0.3 Baso # (Auto) 0.1 WBC Differential . Seg Neuts % (Manual) Band Neuts % (Manual) Lymphocytes % (Manual) Monocytes % (Manual) Eosinophils % (Manual) Abs Neuts (Manual) Differential Comment Auto diff final Toxic Granulation Platelet Estimate Platelet Morphology Target Cells Hematology Comments Sodium 158 H* Potassium 4.3 Chloride 124 H Carbon Dioxide 22.9 Anion Gap 11 BUN 104 H Creatinine 4.06 H Estimated GFR 15 L POC Glucose 102 Random Glucose 112 H Hemoglobin A1c Calcium 8.4 L Phosphorus 4.4 Magnesium 2.8 H Total Bilirubin 20.5 H AST 96 H ALT 62 Alkaline Phosphatase 119 H Ammonia Total Protein 5.6 L Albumin 2.1 L TSH Free T4 Urine Color Urine Clarity Urine pH Ur Specific [place] Urine Protein Urine Glucose (UA) Urine Ketones Urine Occult Blood Urine Nitrate Urine Bilirubin Urine Ictotest Urine Urobilinogen Ur Leukocyte Esterase Urine RBC Urine WBC Amorphous Sediment Urine Bacteria Granular Casts Urine Mucus Micro UA Comment Ur Microscopic Review Urine Eosinophils 08/06/18 08/06/18 08/06/18 06:36 08:07 11:49 WBC RBC Hgb Hct MCV MCH MCHC RDW Plt Count MPV Prelim Diff (Auto) Neut % (Auto) Lymph % (Auto) [place] % (Auto) Eos % (Auto) Baso % (Auto) Neut # (Auto) Lymph # (Auto) [place] # (Auto) Eos # (Auto) Baso # (Auto) WBC Differential Seg Neuts % (Manual) Band Neuts % (Manual) Lymphocytes % (Manual) Monocytes % (Manual) Eosinophils % (Manual) Abs Neuts (Manual) Differential Comment Toxic Granulation Platelet Estimate Platelet Morphology Target Cells Hematology Comments Sodium Potassium Chloride Carbon Dioxide Anion Gap BUN Creatinine Estimated GFR POC Glucose 119 H 134 H Random Glucose Hemoglobin A1c Calcium Phosphorus Magnesium Total Bilirubin AST ALT Alkaline Phosphatase Ammonia Less than 10 L Total Protein Albumin TSH Free T4 Urine Color Urine Clarity Urine pH Ur Specific [place] Urine Protein Urine Glucose (UA) Urine Ketones Urine Occult Blood Urine Nitrate Urine Bilirubin Urine Ictotest Urine Urobilinogen Ur Leukocyte Esterase Urine RBC Urine WBC Amorphous Sediment Urine Bacteria Granular Casts Urine Mucus Micro UA Comment Ur Microscopic Review Urine Eosinophils 08/06/18 08/06/18 08/06/18 16:00 16:00 17:02 WBC RBC Hgb Hct MCV MCH MCHC RDW Plt Count MPV Prelim Diff (Auto) Neut % (Auto) Lymph % (Auto) [place] % (Auto) Eos % (Auto) Baso % (Auto) Neut # (Auto) Lymph # (Auto) [place] # (Auto) Eos # (Auto) Baso # (Auto) WBC Differential Seg Neuts % (Manual) Band Neuts % (Manual) Lymphocytes % (Manual) Monocytes % (Manual) Eosinophils % (Manual) Abs Neuts (Manual) Differential Comment Toxic Granulation Platelet Estimate Platelet Morphology Target Cells Hematology Comments Sodium Potassium Chloride Carbon Dioxide Anion Gap BUN Creatinine Estimated GFR POC Glucose 99 Random Glucose Hemoglobin A1c Calcium Phosphorus Magnesium Total Bilirubin AST ALT Alkaline Phosphatase Ammonia Total Protein Albumin TSH Free T4 Urine Color Whitney Urine Clarity Hazy H Urine pH 5.0 Ur Specific [place] 1.020 Urine Protein 100 H Urine Glucose (UA) 50 Urine Ketones Negative Urine Occult Blood Moderate H Urine Nitrate Negative Urine Bilirubin Small H Urine Ictotest Positive H Urine Urobilinogen Less than 2 Ur Leukocyte Esterase Small H Urine RBC 3 Urine WBC 34 H Amorphous Sediment Rare H Urine Bacteria Occasional H Granular Casts 7 Urine Mucus Few H Micro UA Comment Cath-culture ind Ur Microscopic Review Not Reportable Urine Eosinophils None seen 08/06/18 08/07/18 08/07/18 21:55 07:18 09:33 WBC RBC Hgb Hct MCV MCH MCHC RDW Plt Count MPV Prelim Diff (Auto) Neut % (Auto) Lymph % (Auto) [place] % (Auto) Eos % (Auto) Baso % (Auto) Neut # (Auto) Lymph # (Auto) [place] # (Auto) Eos # (Auto) Baso # (Auto) WBC Differential Seg Neuts % (Manual) Band Neuts % (Manual) Lymphocytes % (Manual) Monocytes % (Manual) Eosinophils % (Manual) Abs Neuts (Manual) Differential Comment Toxic Granulation Platelet Estimate Platelet Morphology Target Cells Hematology Comments Sodium 154 H Potassium 5.2 H D Chloride 124 H Carbon Dioxide 20.5 L Anion Gap 10 BUN 104 H Creatinine 4.53 H Estimated GFR 13 L POC Glucose 122 H 130 H Random Glucose 123 H Hemoglobin A1c Calcium 8.3 L Phosphorus 4.4 Magnesium Total Bilirubin AST ALT Alkaline Phosphatase Ammonia Total Protein Albumin 1.9 L TSH Free T4 Urine Color Urine Clarity Urine pH Ur Specific [place] Urine Protein Urine Glucose (UA) Urine Ketones Urine Occult Blood Urine Nitrate Urine Bilirubin Urine Ictotest Urine Urobilinogen Ur Leukocyte Esterase Urine RBC Urine WBC Amorphous Sediment Urine Bacteria Granular Casts Urine Mucus Micro UA Comment Ur Microscopic Review Urine Eosinophils 08/07/18 08/07/18 09:33 11:54 WBC 24.2 H RBC 2.73 L Hgb 9.6 L Hct 29.1 L MCV 106.7 H MCH 35.2 H MCHC 33.0 RDW 21.8 H Plt Count 56 L MPV 11.9 H Prelim Diff (Auto) Slide review pending Neut % (Auto) 81.5 H Lymph % (Auto) 10.4 [place] % (Auto) 6.7 Eos % (Auto) 0.9 Baso % (Auto) 0.5 Neut # (Auto) 19.7 H Lymph # (Auto) 2.5 [place] # (Auto) 1.6 H Eos # (Auto) 0.2 Baso # (Auto) 0.1 WBC Differential Manual diff final Seg Neuts % (Manual) 73 H Band Neuts % (Manual) 22 H Lymphocytes % (Manual) 3 L Monocytes % (Manual) 2 Eosinophils % (Manual) Abs Neuts (Manual) 23.0 H Differential Comment . Toxic Granulation 1+ H Platelet Estimate Low L Platelet Morphology Enlarged H Target Cells 1+ H Hematology Comments Sodium Potassium Chloride Carbon Dioxide Anion Gap BUN Creatinine Estimated GFR POC Glucose 129 H Random Glucose Hemoglobin A1c Calcium Phosphorus Magnesium Total Bilirubin AST ALT Alkaline Phosphatase Ammonia Total Protein Albumin TSH Free T4 Urine Color Urine Clarity Urine pH Ur Specific [place] Urine Protein Urine Glucose (UA) Urine Ketones Urine Occult Blood Urine Nitrate Urine Bilirubin Urine Ictotest Urine Urobilinogen Ur Leukocyte Esterase Urine RBC Urine WBC Amorphous Sediment Urine Bacteria Granular Casts Urine Mucus Micro UA Comment Ur Microscopic Review Urine Eosinophils Result Diagrams: 08/07/18 09:33 08/07/18 09:33 Microbiology: Microbiology 08/01/18 09:40 Aerobic Blood Culture - Final Blood - Peripheral No growth in 5 days Anaerobic Blood Culture - Final No growth in 5 days 08/01/18 09:45 Aerobic Blood Culture - Final Blood - Peripheral No growth in 5 days Anaerobic Blood Culture - Final No growth in 5 days Imaging: Impressions Abdomen/Pelvis CT 08/06/18 00:00 CONCLUSION: 1. Small amount of free air are noted in the upper abdomen. The finding is nonspecific and could be secondary to recent instrumentation or placement of the gastrostomy tube and needs to be correlated. Free air from a ruptured viscus could have a similar appearance. 2. Small to moderate amount of ascitic fluid greatest in the pelvis. 3. Nonobstructive bowel gas pattern. The study was performed without intravenous or oral contrast limiting the sensitivity. 4. Small to moderate bilateral pleural effusions. Procedures: Intubation/mechanical ventilation . Assessment and Plan - Symptom Scale (1) Encephalopathy 0-10 Scale: Unable to quantify (2) Pain 0-10 Scale: Unable to quantify (3) Dysphasia 0-10 Scale: Unable to quantify (4) Weakness 0-10 Scale: Unable to quantify (5) Confusion 0-10 Scale: Unable to quantify (6) Malnutrition 0-10 Scale: Unable to quantify Pertinent Non-Medical Issues: Psychosocial: HS education. Recurrent homelessness. Polysubstance abuse. . 2 adult children he is estranged from with no contact info. Father . Mother demented and at [facility]. Only two siblings -- both live locally and are serving as proxies. Spiritual: Restorationism background. Buddhism and spirituality have not played an important role in his life. Legal: Patient currently incapacitated to make his own health care decisions. Uncertain if he will re-gain capacity. Two sisters are the proxy decision makers. Ethical issues impacting care: No known ethical issues. . Important Contacts: Aspen Eyalrivas (sister and co-proxy) [phone] Jovita Whitehead (sister and co-proxy) [phone] . Prognosis: Pt has struggled with EtOH abuse and tobacco abuse his entire life. Urine drug screen at time of admission indicates problems with street drugs as well -- he was positive for opiates and cocaine. He has been unable to work and has been mostly homeless for years. He presented with a fractured left elbow, chest pain, nausea and has been found to have multiple problems including -- left elbow fx; MRSA sepsis; hepatic failure; acute kidney injury; NTSTEMI; encephlopathy; pneumonia; respiratory failure requiring intubation/mechanical ventilation. Though he has been successfully weaned from the vent he has had worsening kidney function, now has pleural effusions, remains somewhat encephalopathic. He is not tolerating tube feeds, worsening hypernatremia, has had his PEG to suction for several days. Given ongoing decline, patient's life expectancy is days to weeks. He would greatly benefit from hospice services provided family' s goals are appropriate. . Code Status: No Code DNR Plan: Legal decision maker: Patient is incapacitated to make his own decisions and not expected to regain capacity. He has 2 sisters who have been designated healthcare proxy. Goals: Per previous documentation, family goals were aggressive short of code. They had elected to make him DNR. Had verbalized to other clinicians that he would not want to live in a residential, however he is unable to return to independent living. Spoke with Sister Jovita to provide update on ongoing decline. Sister now agreeable to transitioning to hospice. She would like to speak with the hospice herbicide service sales representative tomorrow. She states her code proxy Aspen is currently in the hospital having open heart surgery and will not be available for several days. Patient will definitely benefit from transitioning to the care center rather than remaining hospitalized. CODE STATUS: DNR SYMPTOMS: --Pain: Patient now extremely tender in the abdominal area at PEG site. He is having large amounts of gastric drainage around that site which certainly can contribute to aspects of pain. He is now restrained and bedbound also could contribute to pain burden. Has morphine ordered, however I would use sparingly in order to fully assess neuro status and changes. --Dysphasia: Patient has not been absorbing tube feeds, not able to get free water flushes in order to correct sodium, has had PEG tube connected to suction for several days. His PEG does continue to drain a large amount of gastric fluid. Patient does complain that he is hungry despite this. He is at risk for ongoing aspiration and malnutrition and failure to thrive. Recommend comfort diet when patient awake and alert. Palliative care will continue to follow during hospital course as condition evolves, to assist patient/decision-maker with understanding of medical conditions, weighing benefits/burdens of treatment options, for clarification of goals of treatment. Additionally will assist with any symptoms of palliative concern
--- NOTE | 2018-08-07 17:44 | P.PNPL ---
Subjective Interval history: 63 YOWM with RF, increased liver enzymes has pulm congestion no hemoptysis No abd pain no fever PEG tube to LIS Alert, awake, confused Physical Exam Vital signs: Vital Signs 08/06/18 21:09 08/07/18 01:23 08/07/18 04:54 Temperature 97.6 F 97.6 F 97.7 F Pulse Rate 80 76 78 Respiratory Rate 18 18 18 Blood Pressure 110/55 L 92/52 L 97/46 L Pulse Oximetry 98 96 97 08/07/18 07:20 08/07/18 11:54 08/07/18 15:57 Temperature 97.5 F L 97.4 F L 97.6 F Pulse Rate 72 69 75 Respiratory Rate 18 18 18 Blood Pressure 85/52 L 112/56 L 85/49 L Pulse Oximetry 96 96 97 Intake & Output 08/06/18 08/07/18 08/07/18 18:59 06:59 18:59 Intake Total 2100 / 2100 1029.625 / 7239.945 0143.625 / 1829.625 Output Total 450 / 450 700 / 700 Balance 1650 / 1650 1029.625 / 9366.765 5663.625 / 1129.625 Weight 56.4 kg Intake: IV 2100 / 2100 1029.625 / 8261.943 1120.625 / 1029.625 Azactam Inj 2 GM In NS Inj 100 100 / 100 ML @ 200 mls/hr IV.SIG Q8H [facility] Rx#:[id number] NS Inj 1,000 ML @ 1000 mls/hr 1000 / 1000 IV.SIG BOLUS [facility] Rx#:[id number] Sodium Chloride 23.4% Inj 38.5 1000 / 1000 1029.625 / 1599.491 7916.625 / 1029.625 MEQ KCl Inj 40 MEQ In D5W Inj 1 ,000 ML @ 150 mls/hr IV.SIG . Q6H52M [facility] Rx#:[id number] Water Bolus Amount 800 / 800 Output: Urine Amount (Catheter) 300 / 300 Indwelling Urethral Catheter 300 / 300 Gastric Drainage 450 / 450 400 / 400 Left Upper Quadrant Gastrostomy 450 / 450 400 / 400 Tube (PEG) Other: # Incontinent Voids 2 Date of Last Bowel Movement 08/07/18 # Incontinent Bowel Movements 2 3 GENERAL: Elderly Wm, NAD SKIN: Warm and dry. HEAD: Normocephalic. EYES: No scleral icterus. No injection or drainage. NECK: Supple, trachea midline. No JVD or lymphadenopathy. CARDIOVASCULAR: Regular rate and rhythm without murmurs, gallops, or rubs. RESPIRATORY: Breath sounds equal bilaterally. No accessory muscle use. GASTROINTESTINAL: Abdomen soft, non-tender, nondistended. MUSCULOSKELETAL: No cyanosis, or edema. BACK: Nontender without obvious deformity. No CVA tenderness. - Urinary Catheter Management Indwelling Urethral Catheter Cath placed during this visit: yes, but has since been removed by the nurse Reason for continuing: Decision to DC catheter Insertion date: 07/12/18 Insertion time: 07:45 Removal date: 07/19/18 Removal time: 10:45 Condom Cath placed during this visit: yes Urethral indwelling: No Reason for continuing: Acute urinary retention Insertion date: 07/19/18 Insertion time: 10:50 Assessment and Plan - Plan IMPRESSION: 1. Methicillin-resistant Staphylococcus aureus. 2. Urinary tract infection. 3. Sepsis. 4. Hemoptysis. 5. Respiratory distress status post extubation. 6. Increased liver enzymes. 7. Thrombocytopenia. 8. The patient is homeless. 9. Nicotine use. 10. Alcohol use. PLAN: monitor Lytes monitor Plt count Protonix 40 mg IV daily Supplement 02 to keep sat >90% Cont Abx per ID PEG tube to LIS
--- NOTE | 2018-08-07 21:12 | P.PNIM ---
Subjective Interval history: 63-year-old gentleman admitted severe sepsis, positive for MRSA felt related to upper extremity trauma status post respiratory failure, intubation, currently extubated, now with G-tube and persistent ileus, and decompensated cirrhosis with progressive renal failure. discussed w palliative care, asked to readdress with sister. Patient seen and examined, confused but following,states he abd pain is better but appears more confused today Physical Exam Vital signs: Last Vital Signs Temp 97.6 F 08/07/18 15:57 Pulse 75 08/07/18 15:57 Resp 18 08/07/18 15:57 BP 85/49 L 08/07/18 15:57 Pulse Ox 97 08/07/18 15:57 Intake & Output 08/05/18 08/06/18 08/07/18 08/08/18 06:59 06:59 06:59 06:59 Intake Total 2250 / 2250 2840 / 2840 3129.625 / 3129.625 1929.625 / 1929.625 Output Total 1600 / 1600 450 / 450 450 / 450 700 / 700 Balance 650 / 650 2390 / 2390 2679.625 / 2679.625 1229.625 / 1229.625 Weight 56.5 kg 61 kg 56.4 kg ill appearing 63yo w m awake, confused but responding, anisocoria heart s1s2 reg lungs decreased bs bl abd more dt, gtube in place , rash around gtube better, g tube to lis w 400cc dark fluid ext no edema, no calf tenderness Urinary Catheter Management Indwelling Urethral Catheter: Cath placed during this visit: yes, but has since been removed by the nurse Insertion date: 07/12/18 Insertion time: 07:45 Removal date: 07/19/18 Removal time: 10:45 Condom: Cath placed during this visit: yes Urethral indwelling: No Insertion date: 07/19/18 Insertion time: 10:50 Results Labs CBC & Chem 7: 08/07/18 09:33 08/07/18 09:33 Labs: Microbiology 08/06/18 16:00 Catheterized Urine Urine Culture - Preliminary Immature growth - reincubate Procedures Procedures: PEG Assessment and Plan Plan SEVERE SEPSIS DUE to MRSA with bacteremia- resolved, status post treatment, repeat cultures negative, now with worsening leukocytosis, restarted on aztreonam, ID following ACUTE HYPOXIC RESP FAILURE post intubation, extubation, now stable on room air ASPIRATION PNA w large R Pleural effusion s/p pigtail drainage, status post treatment, now with persistent right-sided infiltrate on chest x-ray, follow-up , patient has significant dysphagia and is recommended to continue n.p.o., continue speech therapy, follow-up chest x-ray improving infiltrate METABOLIC AND HEPATIC ENCEPHALOPATHY some improvement, persistent confusion, continue lactulose for hyperammonemia when able to tolerate, DECOMPENSATED ALCOHOLIC CIRRHOSIS, total bilirubin continues to rise, severe cholestatic jaundice, poor prognosis, cant resume diuretics, rifaximin, lactulose due to npo and hpotension, renal failure. SEVERE PROTEIN ÁNGEL MALNUTRITIONhas been n.p.o. and without tube feedings due to ileus, hold p.o. meds, clamp G-tube LIS if tolerated., will need to consider TPN if unable to tolerate enteral feeds in the next 24-48 hours, discussed risks with sister, still unable to tolerate G-tube feedings, OROPHARYNGEAL DYSPHASIA status post G-tube ACUTE ILEUS with suspected colitis per x-ray, continue empiric IV antibiotics, follow-up with GI, hold tube feeds,, will get CT scan abdomen and pelvis ACUTE RENAL FAILURE, hepatorenal syndrome, worsening today, cont as per nephrology L OLECRANON FRACTURE currently in immobilizer follow-up with x-rays, Orth follow-up, continue PT, OT HYPERNATREMIA with free water deficit, continue quarter normal saline continue to monitor sodium MACROCYTIC ANEMIA chronic, no evidence of bleeding LEUKOCYTOSISsuspect colitis versus aspiration pneumonia, continue antibiotics repeat cultures continue as per ID remains afebrile, continue antibiotics per ID , follow-up cultures EtOHdependence, nicotine dependence, history IV drug use, cocaine use, currently no withdrawal issues, continue cessation, continue thiamine folate. SEVERE MUSCLE WEAKNESS, critical care myopathy and deconditioning, Code status - DNR DVT prophylaxis - scd, coagulopathic due to liver dz dispo - will need rehab but currently not a rehab candidate, critically ill and declining, extremely grave prognosis, palliative care will revisit sister, inpatient hospice appropriate at this time. Progress Note: Quality VTE Deep Vein Thrombosis/Pulmonary Embolism Present on Admission: No
[2018-08-08] MEDS: Oral Hygiene Kit OROPHARYNG SCH ×4 (03:18→23:10)
[2018-08-08] MEDS: [UNRECOGNIZED DRUG - OTHER] IV.SIG SCH ×3 (04:26)
[2018-08-08] MEDS: DEXTROSE 5% IV.SIG SCH ×3 (04:26)
[2018-08-08] MEDS: POTASSIUM CHLORIDE IV.SIG SCH ×3 (04:26)
[2018-08-08] MEDS: SODIUM CHLORIDE IV.SIG SCH ×3 (04:26)
[2018-08-08 07:42] LABS: Calcium 7.9 mg/dL (8.5-10.1); Carbon Dioxide 24.7 meq/L (21.0-32.0); Phosphorus 3.8 mg/dL (2.5-4.9); Potassium 3.7 meq/L (3.5-5.1)
[2018-08-08] MEDS: Insulin NovoLOG Aspart Correctional Sugar Inj SQ SCH ×4 (09:41→20:29)
[2018-08-08] MEDS: Chlorhexidine 0.12% Oral Kit 15 ML UDC OROPHARYNG SCH ×2 (09:42→20:23)
[2018-08-08] MEDS: rifAXIMin 550 MG Tablet PO SCH ×2 (09:43→20:30)
[2018-08-08] MEDS: Pantoprazole Inj 40 MG Vial IV.PUSH SCH (09:43)
[2018-08-08] MEDS: Mupirocin 2% Nasal Oint Topical Syringe EACH NARE SCH ×2 (09:44→20:28)
[2018-08-08] MEDS: Clotrimazole 1% Cream 15 GM Tube TOPICAL SCH ×3 (09:44→18:23)
[2018-08-08] MEDS: Lidocaine 5% Patch T-DERMAL SCH (11:33)
--- NOTE | 2018-08-08 11:36 | P.PNPL ---
Subjective Interval history: 63 YOWM with RF, increased liver enzymes has pulm congestion no hemoptysis No abd pain no fever Still confused, not in distress Physical Exam Vital signs: Vital Signs 08/07/18 11:54 08/07/18 15:57 08/07/18 20:00 Temperature 97.4 F L 97.6 F 98.2 F Pulse Rate 69 75 71 Respiratory Rate 18 18 18 Blood Pressure 112/56 L 85/49 L 111/56 L Pulse Oximetry 96 97 95 08/07/18 23:45 08/08/18 04:00 08/08/18 07:37 Temperature 97.8 F 97.7 F 97.2 F L Pulse Rate 77 73 65 Respiratory Rate 18 18 18 Blood Pressure 95/55 L 96/66 L 88/51 L Pulse Oximetry 96 97 97 Intake & Output 08/07/18 08/08/18 08/08/18 18:59 06:59 18:59 Intake Total 1929.625 / 9143.476 2157.625 / 1129.625 Output Total 700 / 700 400 / 400 100 / 100 Balance 1229.625 / 1229.625 729.625 / 729.625 -100 / -100 Weight 57 kg Intake: IV 1129.625 / 7651.132 3670.625 / 1029.625 Diflucan 200 mg Premix Bag 100 100 / 100 ML @ 100 mls/hr IV.SIG Q24H [facility] Rx#:[id number] Sodium Chloride 23.4% Inj 38.5 1029.625 / 4072.918 5196.625 / 1029.625 MEQ KCl Inj 40 MEQ In D5W Inj 1 ,000 ML @ 150 mls/hr IV.SIG . Q6H52M [facility] Rx#:[id number] Water Bolus Amount 800 / 800 100 / 100 Output: Urine Amount (Catheter) 300 / 300 200 / 200 100 / 100 Indwelling Urethral Catheter 300 / 300 200 / 200 100 / 100 Gastric Drainage 400 / 400 200 / 200 Left Upper Quadrant Gastrostomy 400 / 400 200 / 200 Tube (PEG) Other: Bladder Irrigation Fluid - Amount Instilled Indwelling Urethral Catheter 40 Bladder Irrigation Fluid - Amount Drained Indwelling Urethral Catheter 40 Date of Last Bowel Movement 08/07/18 08/07/18 # Bowel Movements 3 # Incontinent Bowel Movements 3 GENERAL: Elderly WM, NAD SKIN: Warm and dry. HEAD: Normocephalic. EYES: scleral icterus. No injection or drainage. NECK: Supple, trachea midline. No JVD or lymphadenopathy. CARDIOVASCULAR: Regular rate and rhythm without murmurs, gallops, or rubs. RESPIRATORY: Breath sounds equal bilaterally. No accessory muscle use. GASTROINTESTINAL: Abdomen soft, non-tender, nondistended. MUSCULOSKELETAL: No cyanosis, or edema. BACK: Nontender without obvious deformity. No CVA tenderness. - Urinary Catheter Management Indwelling Urethral Catheter Cath placed during this visit: yes, but has since been removed by the nurse Reason for continuing: Hourly intake/output Insertion date: 07/12/18 Insertion time: 07:45 Removal date: 07/19/18 Removal time: 10:45 Condom Cath placed during this visit: yes Urethral indwelling: No Reason for continuing: Acute urinary retention Insertion date: 07/19/18 Insertion time: 10:50 Assessment and Plan - Plan IMPRESSION: 1. Methicillin-resistant Staphylococcus aureus. 2. Urinary tract infection. 3. Sepsis. 4. Hemoptysis. 5. Respiratory distress status post extubation. 6. Increased liver enzymes. 7. Thrombocytopenia. 8. The patient is homeless. 9. Nicotine use. 10. Alcohol use. PLAN: monitor Lytes monitor Plt count Protonix 40 mg IV daily Supplement 02 to keep sat >90% Cont Abx per ID
--- NOTE | 2018-08-08 12:11 | P.PNNP ---
Subjective Interval history: Patient complaining of some back discomfort. Remains in restraints. Creatinine improving at 2.61. Plan for family to meet with hospice today. <ConradoteeEdel - Last Filed: 08/08/18 12:03> Physical Exam Vital signs: Vital Signs 08/07/18 15:57 08/07/18 20:00 08/07/18 23:45 Temperature 97.6 F 98.2 F 97.8 F Pulse Rate 75 71 77 Respiratory Rate 18 18 18 Blood Pressure 85/49 L 111/56 L 95/55 L Pulse Oximetry 97 95 96 08/08/18 04:00 08/08/18 07:37 Temperature 97.7 F 97.2 F L Pulse Rate 73 65 Respiratory Rate 18 18 Blood Pressure 96/66 L 88/51 L Pulse Oximetry 97 97 Intake & Output 08/07/18 08/08/18 08/08/18 18:59 06:59 18:59 Intake Total 1929.625 / 2291.391 4127.625 / 1129.625 Output Total 700 / 700 400 / 400 100 / 100 Balance 1229.625 / 1229.625 729.625 / 729.625 -100 / -100 Weight 57 kg Intake: IV 1129.625 / 8637.851 6948.625 / 1029.625 Diflucan 200 mg Premix Bag 100 100 / 100 ML @ 100 mls/hr IV.SIG Q24H [facility] Rx#:[id number] Sodium Chloride 23.4% Inj 38.5 1029.625 / 3863.281 3056.625 / 1029.625 MEQ KCl Inj 40 MEQ In D5W Inj 1 ,000 ML @ 150 mls/hr IV.SIG . Q6H52M [facility] Rx#:[id number] Water Bolus Amount 800 / 800 100 / 100 Output: Urine Amount (Catheter) 300 / 300 200 / 200 100 / 100 Indwelling Urethral Catheter 300 / 300 200 / 200 100 / 100 Gastric Drainage 400 / 400 200 / 200 Left Upper Quadrant Gastrostomy 400 / 400 200 / 200 Tube (PEG) Other: Bladder Irrigation Fluid - Amount Instilled Indwelling Urethral Catheter 40 Bladder Irrigation Fluid - Amount Drained Indwelling Urethral Catheter 40 Date of Last Bowel Movement 08/07/18 08/07/18 # Bowel Movements 3 # Incontinent Bowel Movements 3 Narrative: GENERAL: 63 yo male, chronically ill, not in acute distress at this time. SKIN: Warm and dry. Jaundiced Respiratory: Breath sounds diminished bilaterally. No use of accessory muscles. CARDIOVASCULAR: Regular rate and rhythm without murmurs, gallops, or rubs. RESPIRATORY: Breath sounds coarse sounding. GASTROINTESTINAL: Abdomen soft, Leakage at the PEG tube site. MUSCULOSKELETAL: No cyanosis, no edema. Neuro: alert and oriented - Urinary Catheter Management Indwelling Urethral Catheter Cath placed during this visit: yes, but has since been removed by the nurse Reason for continuing: Hourly intake/output Insertion date: 07/12/18 Insertion time: 07:45 Removal date: 07/19/18 Removal time: 10:45 Condom Cath placed during this visit: yes Urethral indwelling: No Reason for continuing: Acute urinary retention Insertion date: 07/19/18 Insertion time: 10:50 <Edel Lantigua - Last Filed: 08/08/18 12:03> Vital signs: Vital Signs 08/07/18 23:45 08/08/18 04:00 08/08/18 07:37 Temperature 97.8 F 97.7 F 97.2 F L Pulse Rate 77 73 65 Respiratory Rate 18 18 18 Blood Pressure 95/55 L 96/66 L 88/51 L Pulse Oximetry 96 97 97 08/08/18 11:22 08/08/18 15:39 Temperature 94.4 F L Pulse Rate 68 71 Respiratory Rate 18 18 Blood Pressure 92/50 L 90/52 L Pulse Oximetry 95 96 Intake & Output 08/08/18 08/08/18 08/09/18 06:59 18:59 06:59 Intake Total 1129.625 / 1129.625 Output Total 400 / 400 550 / 550 Balance 729.625 / 729.625 -550 / -550 Weight 57 kg Intake: IV 1029.625 / 1029.625 Sodium Chloride 23.4% Inj 38.5 1029.625 / 1029.625 MEQ KCl Inj 40 MEQ In D5W Inj 1 ,000 ML @ 150 mls/hr IV.SIG . Q6H52M [facility] Rx#:[id number] Water Bolus Amount 100 / 100 Output: Urine Amount (Catheter) 200 / 200 300 / 300 Indwelling Urethral Catheter 200 / 200 300 / 300 Gastric Drainage 200 / 200 250 / 250 Left Upper Quadrant Gastrostomy 200 / 200 250 / 250 Tube (PEG) Other: Bladder Irrigation Fluid - Amount Instilled Indwelling Urethral Catheter 40 Bladder Irrigation Fluid - Amount Drained Indwelling Urethral Catheter 40 Date of Last Bowel Movement 08/07/18 08/07/18 # Bowel Movements 3 - Urinary Catheter Management Indwelling Urethral Catheter Cath placed during this visit: no Condom Cath placed during this visit: no <Dina Rivas - Last Filed: 08/08/18 20:31> Assessment and Plan - Assessment (1) Acute kidney injury Code(s): N17.9 - Acute kidney failure, unspecified Status: Acute Plan: Acute kidney injury possibly prerenal or hepatorenal syndrome Has increased losses from GT Creatinine has improved today at 2.6 from 4.53 Recommend to continue IVF's as patient is NPO and has increased losses from GT Urinary output at 500ml/24 hours Recommend to Avoid Nephrotoxins. Maintain strict I+O. Follow the urine out put and BMP. Family to meet with hospice today, will follow. (2) Hypernatremia Code(s): E87.0 - Hyperosmolality and hypernatremia Status: Acute Plan: resolved. <Edel Lantigua - Last Filed: 08/08/18 12:03> - Assessment (1) Acute kidney injury Code(s): N17.9 - Acute kidney failure, unspecified Status: Acute Plan: Patient seen and examined, agree with above. Creatinine improving, still with GT suction. Continue IVF, family to meet Hospice. (2) Hypernatremia Code(s): E87.0 - Hyperosmolality and hypernatremia Status: Acute <Dina Rivas - Last Filed: 08/08/18 20:31>
[2018-08-08] MEDS ORDERED: Dextrose 5%/NaCl 0.9% Inj 1,000 ML IV.CONT SCH (12:15)
[2018-08-08] MEDS: Dextrose 5%/NaCl 0.9% Inj 1,000 ML IV.CONT SCH ×2 (13:30→23:10)
--- NOTE | 2018-08-08 18:58 | P.PNIM ---
Subjective Interval history: 63-year-old gentleman admitted severe sepsis, positive for MRSA bacteremia felt related to upper extremity trauma, status post respiratory failure, intubation, currently extubated, now with G-tube and persistent ileus, and decompensated cirrhosis with progressive renal failure. Patient has been accepted to the palliative care center, transfer in progress Patient seen and examined, very confused but following, denies sob, but is having abd pain and back pain Physical Exam Vital signs: Last Vital Signs Temp 94.4 F L 08/08/18 15:39 Pulse 71 08/08/18 15:39 Resp 18 08/08/18 15:39 BP 90/52 L 08/08/18 15:39 Pulse Ox 96 08/08/18 15:39 Intake & Output 08/06/18 08/07/18 08/08/18 08/09/18 06:59 06:59 06:59 06:59 Intake Total 2840 / 2840 3129.625 / 3129.625 3059.250 / 3059.250 Output Total 450 / 450 450 / 450 1100 / 1100 350 / 350 Balance 2390 / 2390 2679.625 / 2679.625 1959.250 / 1959.250 -350 / -350 Weight 61 kg 56.4 kg 57 kg ill appearing 63yo wm jaundiced, confused, weak heart s1s2 reg lungs decreased bs abd mod dt, tender peg in place leaking rash better ext no edema Urinary Catheter Management Indwelling Urethral Catheter: Cath placed during this visit: yes, but has since been removed by the nurse Insertion date: 07/12/18 Insertion time: 07:45 Removal date: 07/19/18 Removal time: 10:45 Condom: Cath placed during this visit: yes Urethral indwelling: No Insertion date: 07/19/18 Insertion time: 10:50 Results Labs CBC & Chem 7: 08/07/18 09:33 08/08/18 06:32 Labs: Microbiology 08/06/18 16:00 Catheterized Urine Urine Culture - Final Patricia albicans Procedures Procedures: PEG Assessment and Plan Plan SEVERE SEPSIS DUE to MRSA with bacteremia- resolved, status post treatment, repeat cultures negative, now with worsening leukocytosis, restarted on aztreonam, ID following ACUTE HYPOXIC RESP FAILURE post intubation, extubation, now stable on room air ASPIRATION PNA w large R Pleural effusion s/p pigtail drainage, status post treatment, now with persistent right-sided infiltrate on chest x-ray, follow-up , patient has significant dysphagia and is recommended to continue n.p.o., continue speech therapy, follow-up chest x-ray improving infiltrate METABOLIC AND HEPATIC ENCEPHALOPATHY some improvement, persistent confusion, continue lactulose for hyperammonemia when able to tolerate, DECOMPENSATED ALCOHOLIC CIRRHOSIS, total bilirubin continues to rise, severe cholestatic jaundice, poor prognosis, cant resume diuretics, rifaximin, lactulose due to npo and hpotension, renal failure. SEVERE PROTEIN ÁNGEL MALNUTRITIONhas been n.p.o. and without tube feedings due to ileus, hold p.o. meds, clamp G-tube LIS if tolerated., will need to consider TPN if unable to tolerate enteral feeds in the next 24-48 hours, discussed risks with sister, still unable to tolerate G-tube feedings, OROPHARYNGEAL DYSPHASIA status post G-tube ACUTE ILEUS with suspected colitis per x-ray, continue empiric IV antibiotics, follow-up with GI, hold tube feeds,, will get CT scan abdomen and pelvis ACUTE RENAL FAILURE, hepatorenal syndrome, worsening today, cont as per nephrology L OLECRANON FRACTURE poa currently in immobilizer follow-up with x-rays, Orth follow-up, continue PT, OT HYPERNATREMIA with free water deficit, continue quarter normal saline continue to monitor sodium MACROCYTIC ANEMIA chronic, no evidence of bleeding LEUKOCYTOSISsuspect colitis versus aspiration pneumonia, continue antibiotics repeat cultures continue as per ID remains afebrile, continue antibiotics per ID , follow-up cultures EtOHdependence, nicotine dependence, history IV drug use, cocaine use, currently no withdrawal issues, continue cessation, continue thiamine folate. SEVERE MUSCLE WEAKNESS, critical care myopathy and deconditioning, Code status - DNR DVT prophylaxis - scd, coagulopathic due to liver dz dispo - currently not a rehab candidate, critically ill and declining, extremely grave prognosis, palliative care will revisit sister, inpatient hospice transfer when arranged for comfort care. Progress Note: Quality VTE Deep Vein Thrombosis/Pulmonary Embolism Present on Admission: No
[2018-08-09] MEDS: Oral Hygiene Kit OROPHARYNG SCH ×2 (05:16→13:02)
[2018-08-09] MEDS: Chlorhexidine 0.12% Oral Kit 15 ML UDC OROPHARYNG SCH (07:26)
[2018-08-09 08:17] VITALS: RESP 20
[2018-08-09] MEDS: Insulin NovoLOG Aspart Correctional Sugar Inj SQ SCH ×2 (09:36→13:02)
[2018-08-09] MEDS: Lidocaine 5% Patch T-DERMAL SCH (09:36)
[2018-08-09] MEDS: Dextrose 5%/NaCl 0.9% Inj 1,000 ML IV.CONT SCH (09:36)
[2018-08-09] MEDS: Clotrimazole 1% Cream 15 GM Tube TOPICAL SCH (09:38)
[2018-08-09] MEDS: rifAXIMin 550 MG Tablet PO SCH (09:39)
[2018-08-09] MEDS: Mupirocin 2% Nasal Oint Topical Syringe EACH NARE SCH (09:39)
[2018-08-09] MEDS: Pantoprazole Inj 40 MG Vial IV.PUSH SCH (09:39)
[2018-08-09 11:49] VITALS: BP 90/55; PULSE 73; TEMP 98.6; O2SAT 94
[2018-08-09] MEDS: Morphine Inj 4 MG/ML Vial IV.PUSH PRN (13:08)
--- NOTE | 2018-08-09 13:11 | P.DS ---
DS: Providers Date of admission: 07/08/18 21:58 Primary care physician: No Primary Care Physician Consults: 08/06/18 11:27 Consult to Nephrology Routine Consulting Provider: Cyndee Boggs Does the patient have a Submarine Diver who follows them?: Yes Preferred Nephrology Pelt Salter:: Cyndee Boggs Reason for Consultation: rising creatinine again Notified:: Service Spoke with:: Aleisha Date Notified:: 08/06/18 Time Notified:: 11:32 Comments:: Ordering Provider: SIMONE 07/09/18 00:17 Consult to Gastroenterology Routine Consulting Provider: Cuco Medrano V Reason for Consultation: Liver failure, hyperbilirubinemia Notified:: Service Spoke with:: Maxime Date Notified:: 07/09/18 Time Notified:: 00:34 Ordering Provider: SUMMER 07/09/18 00:25 Consult to Orthopedic Surgery Routine Consulting Provider: Pk Castaneda Reason for Consultation: AM consult -olecranon avulsion fracture Notified:: Service Spoke with:: Yogesh Date Notified:: 07/09/18 Time Notified:: 00:29 Ordering Provider: SUMMER 07/09/18 13:01 Consult to Vascular Surgery Routine Consulting Provider: Jeff Ta Reason for Consultation: syncope, carotid US with > 70% stenosis right side and < 50% stenosis on left side Notified:: Physician Spoke with:: Date Notified:: 07/09/18 Time Notified:: 13:11 Ordering Provider: GUS 07/09/18 15:44 Consult to Infectious Diseases Routine Consulting Provider: Jina Abbasi Reason for Consultation: bacteremia Notified:: Service Spoke with:: Yi Date Notified:: 07/09/18 Time Notified:: 15:52 Ordering Provider: GUS 07/09/18 15:45 Consult to Cardiology Routine Consulting Provider: Elaine Gonzalez Does the patient have a Supervisor Sign Shop who follows them?: No Preferred Liner Replacer:: [employer] Supervisor Physician Reason for Consultation: NSTEMI Notified:: Office Spoke with:: Akiko Date Notified:: 07/09/18 Time Notified:: 15:55 Ordering Provider: GUS 07/10/18 05:11 Consult to Account Services Representative Routine Consulting Provider: Tito Cross Reason for Consultation: lactate 8.0, septic shock, +bacteremia Notified:: Service Spoke with:: JEFF Date Notified:: 07/10/18 Time Notified:: 05:22 Ordering Provider: ASHELY 07/11/18 08:52 Consult to Nephrology Routine Consulting Provider: Dina Rivas Does the patient have a Submarine Diver who follows them?: No Preferred Nephrology Pelt Salter:: [employer] Supervisor Physician Reason for Consultation: Acute kidney injury. Patient is on vancomycin for MRSA bacteremia. Patient will likely need cardiac catheterization and carotid endarterectomy. Assistance with management. Notified:: Service Spoke with:: GABRIELLE Date Notified:: 07/11/18 Time Notified:: 10:19 Ordering Provider: NETO 07/15/18 11:16 Consult to Gastroenterology Routine Consulting Provider: Cuco Medrano V Reason for Consultation: Worsening hyperbilirubinemia Notified:: Office Spoke with:: Nita Date Notified:: 07/15/18 Time Notified:: 11:21 Ordering Provider: SIOBHAN 07/21/18 07:57 Consult to Palliative Care Routine Consulting Provider: Tae Garcia Reason for Consultation: END OF LIFE Notified:: Service Spoke with:: Dario Date Notified:: 07/21/18 Time Notified:: 08:04 Ordering Provider: OG 07/22/18 15:17 Consult to Hospitalist Routine Consulting Provider: Daphney Leal Reason for Consultation: Consult and transfer to hospitalist service for medical management. Critical care will be signing off, please reconsult if needed Notified:: Service Spoke with:: Kate Date Notified:: 07/22/18 Time Notified:: 15:29 Comments:: Ordering Provider: OG 07/23/18 14:16 Consult to Pulmonology Routine Consulting Provider: Harsha Ramos Reason for Consultation: acute respiratory failure. hemoptysis Notified:: Office Spoke with:: Leo Date Notified:: 07/23/18 Time Notified:: 14:20 Ordering Provider: JAYY 07/28/18 17:51 Consult to Gastroenterology Routine Consulting Provider: Donta Sanchez Reason for Consultation: worsening abnormal LFTs Notified:: Service Spoke with:: MISTY Date Notified:: 07/28/18 Time Notified:: 18:12 Ordering Provider: HORTENSIA 07/30/18 14:48 Consult to Orthopedic Surgery Routine Consulting Provider: Rober Linares Pelt Salter:: Ld Reynolds Reason for Consultation: ROM and wt bearing recommendations of elbow fx last eval 07/09 Notified:: Office Spoke with:: марина Date Notified:: 07/30/18 Time Notified:: 15:18 Comments:: Dr. Reynolds out of town. Ordering Provider: HORTENSIA 08/01/18 08:11 Consult to Infectious Diseases Routine Consulting Provider: Scott Walker Reason for Consultation: Worsening leukocytosis Notified:: Service Spoke with:: Aleena Date Notified:: 08/01/18 Time Notified:: 08:14 Ordering Provider: HORTENSIA Brief History from admission: 63-year-old male with a past medical history significant for alcohol abuse presents to the emergency department for the evaluation of arm pain. The patient reports he was having significant nausea and vomiting that began earlier today. He also reports left arm pain from a fall he suffered approximately a week ago. The patient reports he fell over but did not seek treatment for his left arm pain. According to ED documentation, the patient suffered a near syncopal event and had chest pain although at the time of our interview he denies either of these things. The patient is a poor historian who states he drinks approximately 8 beers daily. He has no known history of liver disease. He denies any chest pain or shortness of breath. Endorses diffuse epigastric abdominal pain. Positive nausea/vomiting. No hematemesis. No focal neurologic deficits. No fever/chills. DS: Summary Patient was treated for severe sepsis found to have positive MRSA bacteremia. He required intubation for respiratory failure ultimately was extubated but developed persistent ileus status post gastric tube placement for enteral need nutrition. Patient developed significant jaundice liver failure with decompensated cirrhosis felt to be related to alcoholic liver disease. Patient also developed acute renal failure and suspected hepatorenal syndrome. He remained hypotensive and there was concern of possible colitis, with his prognosis being so poor patient continue to be fairly encephalopathic and palliative care was following his case and have lengthy discussions with the patient's family, his sister who is primary decision maker, agreed that the patient was clinically with poor quality of life and candidate for palliative care/hospice. Patient was transferred care in guarded condition for ongoing comfort measures. Discharge diagnosis: Severe sepsis due to MRSA with bacteremia Acute hypoxic respiratory failure requiring intubation Aspiration pneumonia with large right pleural effusion status post pigtail drainage Metabolic and hepatic encephalopathy Severe cholestatic jaundice Decompensated alcoholic cirrhosis Severe protein calorie malnutrition Oral pharyngeal dysphasia Acute ileus with suspected colitis versus spontaneous bacterial peritonitis Acute renal failure with hepatorenal syndrome Left olecranon fracture due to trauma POA Hypernatremia with free water deficit Macrocytic anemia chronic Leukocytosis Aspiration pneumonia Alcohol dependence Nicotine dependence/addiction hx of IV drug abuse and alcoholism Severe muscle weakness with critical care myopathy and deconditioning Time Spent with Patient Total time spent providing and/or coordinating discharge services: Greater than 30 minutes Status at Discharge Functional status at discharge: bed bound Overall status at discharge: patient is not back to baseline Quality: VTE Deep Vein Thrombosis/Pulmonary Embolism Present on Admission: No Exam Narrative Exam Narrative: ,Chronically an acute ill 63-year-old gentleman Jaundiced, awake, confused, encephalopathic Heart S1-S2 regular Lungs clear bilateral no wheeze no rhonchi Abdomen surrounding no change decreased bowel sounds,moderate diffuse distention , PEG in place Extremities no clubbing cyanosis no edema callus right heel blackened without tenderness to palpation, no undermining, no drainage or erythema Results Procedures completed during hospitalization: PEG Labs on day of discharge: Labs from last 24 hours 08/09/18 08/09/18 08/08/18 11:18 07:50 20:28 POC Glucose 103 115 H 123 H 08/08/18 17:48 POC Glucose 108 Preliminary micro results at discharge 07/13/18 08:55 Fungal Culture - Preliminary Fluid - Pleural fluid No growth in 3 weeks 07/13/18 08:55 Mycobacterial Culture - Preliminary Fluid - Pleural fluid No growth in 3 weeks Impressions ITS Impressions Gallbladder Ultrasound 07/08/18 18:53 CONCLUSION: 1. Small, nonspecific pericholecystic fluid without stones, wall thickening or sonographic Lundy's sign. The fluid may be on the basis of hepatocellular disease. The ultrasound does not support acute cholecystitis. 2. Fatty infiltrated and mildly enlarged liver. Carotid Doppler Study 07/09/18 00:00 CONCLUSION: 1. Right Internal Carotid Artery: Findings indicate >70% stenosis, but less than near occlusion. 2. Left Internal Carotid Artery: Findings indicate <50% stenosis. Hepatobiliary Scan Nuclear Medicine 07/09/18 14:22 CONCLUSION: 1. No activity in intrahepatic ducts, common duct or small bowel. Considerations include include acute obstruction of the common duct and diffuse hepatocellular disease. 2. CT scan shows no dilatation of the common duct or intrahepatic ducts. Diffuse hepatocellular disease is suspected. Neck CTA 07/10/18 00:00 CONCLUSION: 1. 80% stenosis of the proximal right ICA. Left carotid and bilateral vertebral arteries are patent. 2. Emphysematous changes. Abdomen/Pelvis CTA 07/10/18 00:08 CONCLUSION: 1. 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 The SMA and MIC are patent. 2. Hepatic steatosis. 3. Emphysematous changes. Abdomen/Bladder Ultrasound 07/11/18 00:00 CONCLUSION: 1. Normal ultrasound appearance of the kidneys. 2. Other findings include hepatic steatosis and left pleural effusion. Elbow CT 07/11/18 00:00 CONCLUSION: 1. Small fracture fragment off the olecranon. 2. There is subcutaneous edema identified posterior to the elbow with soft tissue swelling. Head CT 07/13/18 00:00 CONCLUSION: 1. No acute intracranial abnormality. 2. Atrophy. . Gastrostomy Tube Placement 07/22/18 00:00 CONCLUSION: 1. Uncomplicated gastrostomy tube placement as above. Liver Ultrasound 07/29/18 00:00 CONCLUSION: 1. Mild gallbladder wall thickening. If there is clinical concern for cholecystitis, a hepatobiliary scan may be helpful to confirm cystic duct obstruction. 2. Enlarged fatty liver. 3. Some ascites along the edge of the liver and spleen. 4. Echogenic right kidney suggesting possible medical renal disease. 5. Poor visualization of the pancreas due to shadowing bowel gas. Cholangiopancreatography MRI 07/30/18 00:00 CONCLUSION: 1. No intraluminal defects in the gallbladder or common bile duct. 2. Prominent amount of ascites and large bilateral pleural effusions. Percutaneous gastrostomy in place. Elbow X-Ray 07/30/18 00:00 CONCLUSION: Good alignment and position of the bony structures. Abdomen X-Ray 08/03/18 06:00 CONCLUSION: Decreased distention. Nonobstructive pattern. Suspected left side colitis, nonspecific. Chest X-Ray 08/05/18 00:00 CONCLUSION: Improvement in right effusion and basilar airspace disease since August 01. Abdomen/Pelvis CT 08/06/18 00:00 CONCLUSION: 1. Small amount of free air are noted in the upper abdomen. The finding is nonspecific and could be secondary to recent instrumentation or placement of the gastrostomy tube and needs to be correlated. Free air from a ruptured viscus could have a similar appearance. 2. Small to moderate amount of ascitic fluid greatest in the pelvis. 3. Nonobstructive bowel gas pattern. The study was performed without intravenous or oral contrast limiting the sensitivity. 4. Small to moderate bilateral pleural effusions. Discharge Plan Discharge Disposition Patient Disposition: [facility] Hospice/Med Facility Discharge Condition Condition: Serious Discharge Order Discharge Orders: Discharge Order (Routine); Ordered 08/09/18 Ordered By: Elisabeth Chandra Physicians Team Primary Care Provider: Primary Care Cierra Odonnell Attending Provider: Elisabeth Chandra Other Providers: Cuco Medrano V ; Pk Castaneda ; Jeff Ta ; Elaine Gonzalez ; Jina Abbasi ; Tito Cross ; Dina Rivas ; Tae Garcia ; Harsha Ramos ; Donta Sanchez ; Rober Linares ; Cyndee Boggs Rxs /Orders / Referrals /Forms Prescriptions: New ipratropium-albuterol 0.5 mg-3 mg(2.5 mg base)/3 mL Solution For Nebulization 1 amp NEB Q2HR NEB PRN (Reason: Shortness Of Breath/Wheezing) Qty: 0 RF: 0 lidocaine [Lidoderm] 5 % Adhesive Patch,Medicated 1 patch Transdermal DAILY Qty: 0 RF: 0 chlordiazepoxide HCl 10 mg Capsule 10 mg G-Tube Q8H PRN (Reason: anxiety/withdrawal) Qty: 0 RF: 0 clotrimazole 1 % Cream 1 applicatio Topical TID Qty: 0 RF: 0 Referrals: Primary Care Cierra Odonnell [Primary Care Provider] - See Instructions Status ED Status: Left Department Discharge Information Discharge Date/Time: 08/09/18 13:25
== END 2018-08-09 13:25 | disposition hospice, inpatient (51) | DRG 870 ==
LOC: NEPC 12:12 → NEDA 21:58 → N06 07-09 01:07 → N03 07-10 03:25 → N05 07-27 00:36
PROVIDERS: ADMIT Internal Medicine; ATTEND Internal Medicine
DX: E87.2 Acidosis; K70.31 Alcoholic cirrhosis of liver with ascites; K94.23 Gastrostomy malfunction; E87.6 Hypokalemia; Z83.3 Family history of diabetes mellitus; B85.2 Pediculosis, unspecified; R55 Syncope and collapse; D53.9 Nutritional anemia, unspecified; I11.0 Hypertensive heart disease with heart failure; E43 Unspecified severe protein-calorie malnutrition; J96.01 Acute respiratory failure with hypoxia; K70.40 Alcoholic hepatic failure without coma; E87.1 Hypo-osmolality and hyponatremia; H57.02 Anisocoria; A41.02 Sepsis due to Methicillin resistant Staphylococcus aureus; F14.10 Cocaine abuse, uncomplicated; K56.7 Ileus, unspecified; D68.9 Coagulation defect, unspecified; J69.0 Pneumonitis due to inhalation of food and vomit; R04.2 Hemoptysis; K90.9 Intestinal malabsorption, unspecified; Z79.82 Long term (current) use of aspirin; K76.0 Fatty (change of) liver, not elsewhere classified; Z51.5 Encounter for palliative care; Z66 Do not resuscitate; E87.0 Hyperosmolality and hypernatremia; Z53.09 Procedure and treatment not carried out because of other contraindication; Z59.0 Homelessness; J44.9 Chronic obstructive pulmonary disease, unspecified; R13.12 Dysphagia, oropharyngeal phase; Z74.01 Bed confinement status; W06.XXXA Fall from bed, initial encounter; Y95 Nosocomial condition; F10.20 Alcohol dependence, uncomplicated; G93.41 Metabolic encephalopathy; Z82.49 Family history of ischemic heart disease and other diseases of the circulatory system; S52.022A Displaced fracture of olecranon process without intraarticular extension of left ulna, initial encounter for closed fracture; R65.21 Severe sepsis with septic shock; K76.7 Hepatorenal syndrome; I50.9 Heart failure, unspecified; D69.6 Thrombocytopenia, unspecified; G72.81 Critical illness myopathy; Z78.1 Physical restraint status; I21.4 Non-ST elevation (NSTEMI) myocardial infarction; I65.23 Occlusion and stenosis of bilateral carotid arteries; F17.210 Nicotine dependence, cigarettes, uncomplicated; F11.10 Opioid abuse, uncomplicated; G89.29 Other chronic pain; M54.5 Low back pain; I07.1 Rheumatic tricuspid insufficiency; B37.49 Other urogenital candidiasis; Z78.9 Other specified health status; H57.04 Mydriasis
CPT/HCPCS: 36430; 36600; 43750; 49440; 51798; 70450; 70498; 71010; 71020; 71045; 71046; 73070; 73080; 73200; 74000; 74018; 74174; 74176; 74177; 74181; 76377; 76705; 76775; 76937; 78226; 80048; 80053; 80061; 80069; 80074; 80076; 80202; 80307; 81001; 81256; 82103; 82105; 82140; 82150; 82247; 82248; 82272; 82390; 82533; 82550; 82552; 82570; 82728; 82805; 82945; 82948; 82962; 83036; 83520; 83540; 83550; 83605; 83615; 83690; 83735; 83880; 83986; 84100; 84132; 84145; 84155; 84157; 84300; 84439; 84443; 84484; 85025; 85027; 85384; 85610; 85651; 85652; 85730; 86038; 86039; 86140; 86225; 86235; 86255; 86256; 86403; 86431; 86900; 86901; 87015; 87040; 87070; 87086; 87102; 87116; 87147; 87186; 87205; 87206; 87493; 87641; 88112; 88305; 89051; 90765; 92526; 92610; 93005; 93306; 93880; 94002; 94003; 94150; 94640; 94656; 94657; 94664; 94665; 94667; 94668; 96365; 97110; 97163; 97164; 97167; 97530; 97535; 99145; 99152; 99153; 99285; A4646; A9513; A9537; C1014; C1097; C1769; C1887; C1893; C1894; C9113; C9124; G0195; J0360; J0690; J0878; J1450; J1610; J1630; J1644; J1815; J1940; J2020; J2060; J2212; J2250; J2270; J2370; J2543; J2704; J2765; J3010; J3370; J3411; J3475; J3480; J7030; J7040; J7042; J7050; J7070; L3763; L3986; P9035; P9045; P9047; Q9950; Q9965; Q9967; S0171